=== PATIENT | male | born 1950 | race Caucasian/White ===

== ENCOUNTER 2024-10-13 19:14 | Emergency (ER) | payer MEDICARE, SELFPAY ==
[2024-10-13] VITALS (7 sets, daily range): BP systolic 111–193; BP diastolic 57–176; PULSE 60–62; RESP 16–25; TEMP 37.2; O2SAT 96–98
--- NOTE | ~2024-10-13 | XR_ITS ---
XR chest 1V portable Ordering provider: Precious Gunter MD History: 74 years Male with . sepsis . Comparison: None. FINDINGS: MEDIASTINUM: The cardiac silhouette is not enlarged. Left bipolar pacemaker. A right Port-A-Cath with the tip overlying superior vena cava. LUNGS: No infiltrates, effusions or pneumothorax. OTHER: No free air under the diaphragm. IMPRESSION: No acute cardiopulmonary pathology. Reviewed, dictated and finalized at location A.
--- NOTE | 2024-10-13 19:31 | PC.NURSE ---
Pt teofilo;y states at this time he took 500 mg pill of tylenol around 1820.
--- OUTSIDE RECORDS SUMMARY | 2024-10-13 19:46 | XMS_ITS | Encounter Summary ---
Author Organization [facility] Healthcare Address [address] [place] [address] Care Team Providers Care Greenhouse Or Nursery Transplanter Name Role Phone Gilberto Martinez MD Primary Care Provider Rossi BLACK MD, Zane Morataya Unavailable [phone] Raduel Childers MD Unavailable Chris Hart MD Unavailable Ely Tejada Unavailable Charlee Mcmillan Unavailable Unavailable Mariama Parisi RN Unavailable [phone] Agustina Li MD PhD Unavailable Encounter Details Date Type Department Care Team (Latest Contact Info) Description 10/07/2024 Results Follow-Up [facility] Transplant Liver [address] [facility] [phone] [place] [address] Alethea Burch, ALMITA Cancer antigen 19-9, Comprehensive metabolic panel, CBC with auto differential, Additional followed-up results: 3 Social History Tobacco Use Types Packs/Day Years Used Date Smoking Tobacco: Former Cigarettes 0.3 23 1 968 - 1990 Pipe Cigars Smokeless Tobacco: Never OASIS D0700: Social Isolation Answer Da te Recorded Frequency of experiencing loneliness or isolatio n Never 09/08/2024 OASIS A1250: Transportation Answer Date Recorded Lack of Transportation (Medical) No 09/08/2024 Lack of Transportation (Non-Medical) No 09/08/2024 Patient Unable or Declines to Respond No 09/08/2024 OASIS B1300: Health Literacy Answer Eldon e Recorded Frequency of needing help to read materials from doctor or pharmacy Sometimes 09/08/2024 [facility] Utilities Answer Date Recorded In the past 12 months has th e [employer], oil, or water [employer] threatened to shut off services in your home? No 08/24/2024 Humiliation, Afraid, Rape, and Kick questionnair e Answer Date Recorded Within the last year, have y ou been afraid of your partner or ex-partner? No 11/13/2023 Within the last year, have y ou been humiliated or emotionally abused in other ways by your partner or ex-partner? No Within the last year, have y ou been kicked, hit, slapped, or otherwise physically hurt by your partner or ex-partner? No 11/13/2023 Within the last year, have y ou been raped or forced to have any kind of sexual activity by your partner or ex-partner? No 11/13/2023 Social Connection and Isolat ion Panel [NHANES] Answer Date Recorded In a typical week, how many times do you talk on the phone with family, friends, or neighbors? More than three times a week 08/24/2024 How often do you get togethe r with friends or relatives? More than three times a week 08/24/2024 How often do you attend chur ch or yazdanism services? More than 4 times per year 08/24/2024 Do you belong to any clubs o r organizations such as taoism groups, unions, fraternal or athletic groups, or school groups? Yes 08/24/2024 How often do you attend meet ings of the clubs or organizations you belong to? More than 4 times per year 08/24/2024 Are you , , di vorced, , never , or living with a partner? 08/24/2024 AUDIT-C Answer Date Recorded Q1: How often do you have a drink containing alcohol? Never 08/31/2024 Q2: How many drinks containi ng alcohol do you have on a typical day when you are drinking? Patient does not drink Q3: How often do you have si x or more drinks on one occasion? Never 08/31/2024 Overall Financial Resource Strain (CARDIA) Answe r Date Recorded How hard is it for you to pa y for the very basics like food, housing, medical care, and heating? Not hard at all 08/24/2024 PHQ-2 Answer Date Recorded PHQ-2 Total Score 0 03/16/2024 [facility] - Occupational Stress Questionnaire Answer Date Recorded Do you feel stress - tense, restless, nervous, or anxious, or unable to sleep at night because your mind is troubled all the time - these days? Only a little 11/13/2023 Exercise Vital Sign Answer Date Recorde d On average, how many days pe r week do you engage in moderate to strenuous exercise (like a brisk walk)? 5 days 11/13/2023 On average, how many minutes do you engage in exercise at this level? 30 min 11/13/2023 Hunger Vital Sign Answer Date Recorded Within the past 12 months, y ou worried that your food would run out before you got the money to buy more. Never true 08/25/19 25 Within the past 12 months, t he food you bought just didn't last and you didn't have money to get more. Never true 08/24/2024 PRAPARE - Transportation Answer Date Re corded In the past 12 months, has l ack of transportation kept you from medical appointments or from getting medications? No 08/05 In the past 12 months, has l ack of transportation kept you from meetings, work, or from getting things needed for daily living? No 08/24/2024 Housing Stability Vital Sign Answer Eldon e Recorded In the last 12 months, was t here a time when you were not able to pay the mortgage or rent on time? No 08/24/2024 In the past 12 months, how m any times have you moved where you were living? 0 08/24/2024 At any time in the past 12 m [facility], were you homeless or living in a longterm (including now)? No 08/24/2024 Personal Safety Answer Date Recorded Have you ever been in or are you currently in a harmful physical or emotional relationship or is someone making you feel afraid or unsafe? Denies 08/21/2024 Sex and Gender Information Value Date Recorded Sex Assigned at Not on file Legal Sex Male 6:[address] Gender Identity Male 12/06/2019 4:39 PM CDT Sexual Orientation Straight 12/06/2019 4: 39 PM CDT documented as of this encounter Plan of Treatment Upcoming Encounters Date Type Department Care Team (Latest Contact Info) Description 10/15/2024 11:00 AM CDT Hospital Encounter [facility] [address] [place] [phone] Chris Holcobm MD [address] [place] [address] History of biliary stent insertion 10/15/2024 11:00 AM CDT - 10/15/2024 11:30 AM CDT Surgery [address] [phone] Chris Holcomb MD [address] [place] [address] ERCP Stent Exch INR mail lab at 0900 [[id number]] Scheduled Procedures Name Priority Associated Diagnoses Date/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) documented as of this encounter Visit Diagnoses Not on filedocumented in this encounter Care Teams Greenhouse Or Nursery Transplanter Relationship Specialty Start Date End Date Gilberto Martinez MD [address] [facility] [address] [place] [address] PCP - General 07/11/16 Zane Richey III, MD [address] [facility] [address] [place] [address] Consulting Physician Cardiology 05/18/21 Raudel Childers MD [address] [facility] [id number] [place] [address] Consulting Physician Colon and Rectal Surgery 12/26/21 Chris Hart MD [address] [facility] [address] [place] [address] Weatherseal Technician Cardiology 03/17/24 Ely Tejada PA [address] [facility] [id number] [place] [address] Referring Physician Physician [place] Cutting Machine Operator 04/09/24 Charlee Mcmillan RMA Surgical Prehabilitation and Readiness (SPAR) Coordinator 06/11/24 Mariama Pariis, RN [address] [facility] [address] [place] [address] Steel Finisher 08/07/24 Agustina Li MD PhD [address] [place] [address] Medical Oncologist/Heating Mechanic Medical Oncology 09/09/24 documented as of this encounter
--- OUTSIDE RECORDS SUMMARY | 2024-10-13 19:46 | XMS_ITS | Encounter Summary ---
Author Organization [facility] Address [address] [place] [address] Phone Care Team Providers Care Hr Operations Advisor Name Role Phone Gilberto Martinez MD Primary Care Provider [phone] Rossi BLACK MD, Zane Morataya Unavailable [phone] Raudel Childers MD Unavailable [phone] Gorge Contreras MD PhD Unavailable [phone] hCris Hart MD Unavailable [phone] Mei Cohen RN Unavailable [phone] Ely Tejada Unavailable Charlee Mcmillan Unavailable Unavailable Mariama Parisi RN Unavailable Agustina Li MD PhD Unavailable Reason for Visit * Reason Onset Date Comments MARK 04/09/2024 Encounter Details Date Type Department Care Team (Late st Contact Info) Description 04/09/2024 Telephone [facility] Cardiology [address] [facility] Floor 1, [address] [place] [address] Chris Hart MD [address] [facility] [address] [place] [address] MARK Social History Tobacco Use Types Packs/Day Years Used Date Smoking Tobacco: Former Cigarettes 0.3 2 Q uit: 1992 Pipe Cigars Smokeless Tobacco: Never [facility] Utilities Answer Date Recorded In the past 12 months has th e electric, gas, oil, or water company threatened to shut off services in your home? No 03/16/2024 Humiliation, Afraid, Rape, and Kick questionnair e [...] neighbors? More than three times a week 03/16/2024 How often do you get togethe r with friends or relatives? More than three times a week 03/16/2024 How often do you attend chur ch or tenriism services? More than 4 times per year 03/16/2024 Do you belong to any clubs o r organizations such as yazdanism groups, unions, fraternal or athletic groups, or school groups? Yes 03/16/2024 How often do you attend meet ings of the clubs or organizations you belong to? More than 4 times per year 03/16/2024 Are you , , di vorced, , never , or living with a partner? 03/16/2024 AUDIT-C Answer Date Recorded Q1: How often do you have a drink containing alcohol? Never 03/24/2024 Q2: How many drinks containi ng alcohol do you have on a typical day when you are drinking? Patient does not drink Q3: How often do you have si x or more drinks on one occasion? Never 03/24/2024 Overall Financial Resource Strain (CARDIA) Answe r Date Recorded How hard is it for you to pa y for the very basics like food, housing, medical care, and heating? Not hard at all 03/16/2024 PHQ-2 Answer Date Recorded PHQ-2 Total Score 0 03/16/2024 [facility] - Occupational Stress Questionnaire Answer Date Recorded [...] the money to buy more. Never true 03/16/20 24 Within the past 12 months, t he food you bought just didn't last and you didn't have money to get more. Never true 03/16/2024 PRAPARE - Transportation Answer Date Re corded In the past 12 months, has l ack of transportation kept you from medical appointments or from getting medications? No 03/06 In the past 12 months, has l ack of transportation kept you from meetings, work, or from getting things needed for daily living? No 03/16/2024 Housing Stability Vital Sign Answer Eldon e Recorded In the last 12 months, was t here a time when you were not able to pay the mortgage or rent on time? No 03/16/2024 In the past 12 months, how m any times have you moved where you were living? 0 03/16/2024 At any time in the past 12 m [facility], were you homeless or living in a custodial (including now)? No 03/16/2024 Personal Safety Answer Date Recorded Have you ever been in or are you currently in a harmful physical or emotional relationship or is someone making you feel afraid or unsafe? Denies 03/24/2024 Sex and Gender Information Value Date Recorded Sex Assigned at Not on file Legal Sex Male 6:21 AM QUALITY ASSURANCE LEAD Gender Identity Male 12/06/2019 4:39 PM CDT Sexual Orientation Straight 12/06/2019 4: 39 PM CDT documented as of this encounter Miscellaneous Notes * Telephone Encounter - Seema Mora RN - 04/09/2024 11:52 AM CST ----- Message from Aisha Delcid NP sent at 04/08/2024 5:24 PM QUALITY ASSURANCE LEAD ----- Could one of you please assist with scheduling this MARK for him? This would be to evaluate the mitral valve. He is having laparoscopic exploratory surgery next so would probably be looking for about a month from now, thank you ----- Message ----- From: Chris Hart MD Sent: 04/07/2024 11:23 AM QUALITY ASSURANCE LEAD To: Aisha Delcid NP It's okay to set up. We had been holding off given his cancer burden and need for treatment and unclear candidacy for valve repair. While the patient seemed to be on board with that at my last appointment with him at [place], I'm not sure he is in that same mindset now based on his messages since then. If he wants a work-up, definitely fine to proceed with the work-up and we can always hold off beforesurgery depending on where he is at from a cancer standpoint. ----- Message ----- From: Aisha Delcid NP Sent: 04/05/2024 5:22 PM QUALITY ASSURANCE LEAD To: Chris Hart MD Your last note said MARK would be next step for SOB eval. 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 Ok to set this up? I told pt I would discuss with you, thanks ITY ASSURANCE LEAD documented in this encounter Plan of Treatment Upcoming Encounters Date Type Department Care Team (Latest Contact Info) Description 10/15/2024 11:00 AM CDT Hospital Encounter [facility] [address] [place] [phone] Chris Holcomb MD [address] [place] [address] History of biliary stent insertion 10/15/2024 11:00 AM CDT - 10/15/2024 11:30 AM CDT Surgery [facility] [address] [place] [phone] Chris Holcomb MD [address] [place] [address] ERCP Stent Exch INR mail lab at 0900 [[id number]] Scheduled Procedures Name Priority Associated Diagnoses Date/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 difficile suspected 08/19/2024 08/19/202408/20 3:07 AM CDT Norovirus suspected 08/19/2024 08/19/2024 08/21/19 25 3:07 AM CDT C. difficile suspected 08/21/2024 08/21/202408/22 6:36 AM CDT Norovirus suspected 08/21/2024 08/21/2024 08/23/19 25 3:58 AM CDT COVID: Suspected 08/21/2024 08/21/2024 08/21/2024 5:59 PM CDT Coronavirus, droplet Comment:08/24/2024 - Eligible for review 08/27. Must be afebrile off antipyretics x24 hours and symptoms resolved/significantly improved. Pat Alvarado RN 08/21/2024 08/21/2024 08/31/2024 10:08 AM CDT Rotavirus suspected 08/27/2024 08/27/2024 08/28/19 8:39 AM CDT Rotavirus suspected 08/27/2024 08/27/2024 08/28/19 25 9:21 PM CDT documented as of this encounter Care Teams Hr Operations Advisor Relationship Specialty Start Date End Date Gilberto Martinez MD [address] [facility] [address] [place] [address] PCP - General 07/11/16 Zane Richey III, MD [address] [place] [address] Consulting Physician Cardiology 05/18/21 Raudel Childers MD [address] [facility] [id number] [place] [address] Consulting Physician Colon and Rectal Surgery 12/26/21 Gorge Contreras MD PhD [address] [place] [address] Medical Oncologist Medical Oncology 11/26/23 09/08/24 Chris Hart MD [address] [facility] [address] [place] [address] Leather Stretcher Cardiology 03/17/24 Mei Cohen, ALMITA [address] [facility] [address] [place] [address] Chemical Dependency Counselor 04/09/24 5 Ely Tejada PA [address] [facility] [id number] [place] [address] Referring Physician Physician Corrections Specialist 04/09/24 Charlee Mcmillan RMA Surgical Prehabilitation and Readiness (SPAR) Coordinator 06/11/24 Mariama Parisi, RN [address] [facility] [address] [place] [address] Chemical Dependency Counselor 08/07/24 Agustina Li MD PhD [address] [place] [address] Medical Oncologist/Hoop Machine Operator Medical Oncology 09/09/24 documented as of this encounter
--- OUTSIDE RECORDS SUMMARY | 2024-10-13 19:46 | XMS_ITS | Encounter Summary ---
Author Organization [facility] Healthcare Address [address] [place] [address] Care Team Providers Care Household Appliance Installer Name Role Phone Gilberto Martinez MD Primary Care Provider Rossi BLACK MD, Zane Morataya Unavailable [phone] Raudel Childers MD Unavailable Gorge Contreras MD PhD Unavailable [phone] Chris Hart MD Unavailable Mei Cohen RN Unavailable [phone] Ely Tejada Unavailable Charlee Mcmillan Unavailable Unavailable Mariama Parisi RN Unavailable Agustina Li MD PhD Unavailable Encounter Details Date Type Department Care Team (Late st Contact Info) Description 05/29/2024 Treatment [facility] Radiation Oncology [address] [facility] Advanced Medicine [facility] [place] [place] [address] Gorge Garza MD PhD [address] [facility] [address] [place], [place] [id number] Hilar cholangiocarcinoma (HCC) (Primary Dx) Social History Tobacco Use Types Packs/Day Years Used Date Smoking Tobacco: Former Cigarettes 0.3 2 Q uit: 1992 Pipe Cigars Smokeless Tobacco: Never [facility] Utilities Answer Date Recorded In the past 12 months has e electric, gas, oil, or water company [...] week 03/16/2024 How often do you attend [facility] or [facility] services? More than 4 times per year 03/16/2024 Do you belong to any clubs o r organizations such as uatsdin groups, unions, fraternal or athletic groups, or school groups? Yes 03/16/2024 How often do you attend meet ings of the clubs or organizations you belong to? More than 4 times per year 03/16/2024 Are you , , di vorced, , never , or living with a partner? 03/16/2024 AUDIT-C Answer Date Recorded Q1: How often do you have a drink containing alcohol? Never 05/12/2024 Q2: How many drinks containi ng alcohol do you have on a typical day when you are drinking? Patient does not drink Q3: How often do you have si x or more drinks on one occasion? Never 05/12/2024 Overall Financial Resource Strain (CARDIA) Answe r Date Recorded How hard is it for you to pa y for the very basics like food, housing, medical care, and heating? Not hard at all 03/16/2024 PHQ-2 Answer Date Recorded PHQ-2 Total Score 0 03/16/2024 [facility] - Occupational Stress Questionnaire Answer Date [...] any time in the past [address] [facility], were you homeless or living in a [place] [facility] [place] facility (including now)? No 03/16/2024 Personal Safety Answer Date Recorded Have you ever been in or are you currently in a harmful physical or emotional relationship or is someone making you feel afraid or unsafe? Denies 05/20/2024 Sex and Gender Information Value Date Recorded Sex Assigned at Not on file Legal Sex Male 6:21 AM MEDICATION CARE MANAGER Gender Identity Male 12/06/2019 4:39 PM CDT Sexual Orientation Straight 12/06/2019 4: 39 PM CDT documented as of this encounter Plan of Treatment Upcoming Encounters Date Type Department Care Team (Latest Contact Info) Description 10/15/2024 11:00 AM CDT Hospital Encounter [facility] [address] [place] [phone] Chris Holcomb MD [address] [facility] [place] [address] History of biliary stent insertion 10/15/2024 11:00 AM CDT - 10/15/2024 11:30 AM CDT Surgery [facility] [address] [place] [phone] Chris Holcomb MD [address] [facility] [place] [address] ERCP Stent Exch INR mail lab at 0900 [[id number]] Scheduled Procedures Name Priority Associated Diagnoses Date/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) documented as of this encounter Visit Diagnoses Diagnosis Hilar cholangiocarcinoma (HCC)- Primary History of biliary stent insertion- Primary History of biliary stent insertion documented in this encounter Additional Health Concerns Infection [...] AM CDT Rotavirus suspected 08/27/2024 08/27/2024 08/28/19 9:21 PM CDT documented as of this encounter Care Teams Household Appliance Installer Relationship Specialty Start Date End Date Gilberto Martinez MD [address] [facility] [address] [place] [address] PCP - General 07/11/16 Zane Richey III, MD [address] [facility] [address] [place] [address] Consulting Physician Cardiology 05/18/21 Raudel Childers MD [address] [facility] [id number] [place] [address] Consulting Physician Colon and Rectal Surgery 12/26/21 Gorge Contreras MD PhD [address] [place] [address] Medical Oncologist Medical Oncology 11/26/23 09/08/24 Chris Hart MD [address] [facility] [address] [place] [address] Critical Care Unit Manager Cardiology 03/17/24 Mei Cohen, ALMITA [address] [facility] [address] [place] [address] Flagman 04/09/24 Ely Garzon PA [address] [facility] [id number] [place] [address] Referring Physician Physician Airset Molder 04/09/24 Charlee Mcmillan RMA Surgical Prehabilitation and Readiness (SPAR) Coordinator 06/11/24 Mariama Parisi, RN [address] [facility] [address] [place] [address] [employer] 08/07/24 Agustina Li MD PhD [address] [place] [address] Medical Oncologist/Ginning Operator Medical Oncology 09/09/24 documented as of this encounter
--- OUTSIDE RECORDS SUMMARY | 2024-10-13 19:46 | XMS_ITS | Encounter Summary ---
Author Organization [facility] Healthcare Address [address] [place] [address] Care Team Providers Care Lay Out Helper Name Role Phone Gilberto Martinez MD Primary Care Provider [phone] Rossi BLACK MD, Zane Morataya Unavailable [phone] Raudel Childers MD Unavailable [phone] Aarti Robles RN Unavailable [phone] Gorge Contreras MD PhD Unavailable [phone] Chris Hart MD Unavailable Mei Cohen RN Unavailable [phone] Ely Tejada Unavailable Charlee Mcmillan Unavailable Unavailable Mariama Parisi RN Unavailable Agustina Li MD PhD Unavailable [phone] Encounter Details Date Type Department Care Team (Late st Contact Info) Description 11/15/2023 Documentation [facility] Case Management [address] [place] [id number] Skylar Peng, RN Social History Tobacco Use Types Packs/Day Years Used Date Smoking Tobacco: Former Cigarettes 0.3 2 Q uit: 1992 Pipe Cigars Smokeless Tobacco: Never [facility] Utilities Answer Date Recorded In the past 12 months has [employer], gas, oil, or water [employer] threatened to shut off services in your home? No 11/18/2023 Humiliation, Afraid, Rape, and Kick questionnair e [...] neighbors? More than three times a week 11/18/2023 How often do you get togethe r with friends or relatives? More than three times a week 11/18/2023 How often do you attend chur or scientology services? More than 4 times per year 11/18/2023 Do you belong to any clubs o r organizations such as yazdanism groups, unions, fraternal or athletic groups, or school groups? No 11/18/2023 How often do you attend meet ings of the clubs or organizations you belong to? Never 11/18/2023 Are you , , di vorced, , never , or living with a partner? 11/18/2023 AUDIT-C Answer Date Recorded Q1: How often do you have a drink containing alcohol? Never 11/13/2023 Q2: How many drinks containi ng alcohol do you have on a typical day when you are drinking? Patient does not drink Q3: How often do you have si x or more drinks on one occasion? Never 11/13/2023 Overall Financial Resource Strain (CARDIA) Answe r Date Recorded How hard is it for you to pa y for the very basics like food, housing, medical care, and heating? Not hard at all 11/18/2023 [facility] - Occupational [...] the money to buy more. Never true 11/18/19 24 Within the past 12 months, t he food you bought just didn't last and you didn't have money to get more. Never true 11/18/2023 PRAPARE - Transportation Answer Date Re corded In the past 12 months, has l ack of transportation kept you from medical appointments or from getting medications? No 11/03 In the past 12 months, has l ack of transportation kept you from meetings, work, or from getting things needed for daily living? No 11/18/2023 Housing Stability Vital Sign Answer Eldon e Recorded In the last 12 months, was t here a time when you were not able to pay the mortgage or rent on time? No 11/18/2023 In the past 12 months, how m any times have you moved where you were living? 0 11/18/2023 At any time in the past 12 m [facility], were you homeless or living in a jail (including now)? No 11/18/2023 Personal Safety Answer Date Recorded Have you ever been in or are you currently in a harmful physical or emotional relationship or is someone making you feel afraid or unsafe? 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 ADD: 11/16/2023 Plan/referrals made/in place: No referrals placed at this time Support following discharge: Crystal [phone] Transportation: Spouse to provide transportation F/U Appointments: None at this time Plan for weekend discharge: Yes For weekend assistance, please check the treatment team in Epic for the assigned dependency case manager or contact the weekend Case Management phone. documented in this encounter Plan of Treatment Upcoming Encounters Date Type Department Care Team (Latest Contact Info) Description 10/15/2024 11:00 AM CDT Hospital Encounter [facility] [address] [place] [phone] Chris Holcomb MD [address] [id number] History of biliary stent insertion 10/15/2024 11:00 AM CDT - 10/15/2024 11:30 AM CDT Surgery [facility] [address] [place] [phone] Chris Holcomb MD [address] [address] ERCP Stent Exch INR mail lab at 0900 [[id number]] Scheduled Procedures Name Priority Associated Diagnoses Date/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) documented as of this encounter Visit Diagnoses Not on filedocumented in this encounter Additional Health Concerns Infection Onset Date Last Indicated Resolved Time COVID: Suspected 11/30/2023 11/30/2023 11/30/2023 3:24 PM CDT COVID: Suspected 12/16/2023 12/16/2023 12/16/2023 9:52 PM CDT COVID: Suspected Comment:12/16 negative 12/17/2023 12/17/2023 12/17/2023 10:41 A M CDT COVID: Suspected 12/20/2023 12/20/2023 12/21/2023 3:06 AM CDT COVID: Suspected 12/22/2023 12/22/2023 12/22/2023 2:13 PM CDT COVID: Suspected 01/18/2024 01/18/2024 01/18/2024 1:19 PM CDT COVID: Suspected 03/15/2024 03/15/2024 03/15/2024 5:59 PM WARP STARTER C. difficile suspected 08/19/2024 08/19/202408/20 3:07 AM CDT Norovirus suspected 08/19/2024 08/19/2024 08/21/19 25 3:07 AM CDT C. difficile suspected 08/21/2024 08/21/202408/22 6:36 AM CDT Norovirus suspected 08/21/2024 08/21/2024 08/23/19 3:58 AM CDT COVID: Suspected 08/21/2024 08/21/2024 08/21/2024 5:59 PM CDT Coronavirus, droplet Comment:08/24/2024 - Eligible for review 08/27. Must be afebrile off antipyretics x24 hours and symptoms resolved/significantly improved. Pat Alvarado RN 08/21/2024 08/21/2024 08/31/2024 10:08 AM CDT Rotavirus suspected 08/27/2024 08/27/2024 08/28/19 8:39 AM CDT Rotavirus suspected 08/27/2024 08/27/2024 08/28/19 25 9:21 PM CDT documented as of this encounter Care Teams Lay Out Helper Relationship Specialty Start Date End Date Gilberto Martinez MD [address] [address] PCP - General 07/11/16 Zane Richey III, MD [address] [place] [address] Consulting Physician Cardiology 05/18/21 Raudel Childers MD [address] [facility] [phone] [place] [address] Consulting Physician Colon and Rectal Surgery 12/26/21 Aarti Robles, ALMITA [address] [facility] [address] [place] [address] SHOP Outpatient Business Support Administrator 11/18/23 12/16/23 Gorge Contreras MD PhD [address] [place] [address] Medical Oncologist Medical Oncology 11/26/23 09/08/24 Chris Hart MD [address] [facility] [address] [place] [address] Merchandise Associate Cardiology 03/17/24 Mei Cohen, ALMITA [address] [facility] [address] [place] [address] Office Lead 04/09/24 Ely Garzon PA [address] [facility] [id number] [place] [address] Referring Physician Physician Brass Burnisher 04/09/24 Charlee Mcmillan RMA Surgical Prehabilitation and Readiness (SPAR) Coordinator 06/11/24 Mariama Parisi, ALMITA [address] [facility] [address] [place] [address] Office Lead 08/07/24 Agustina Li MD PhD [address] [place] [address] Medical Oncologist/Pmo Business Analyst Medical Oncology 09/09/24 documented as of this encounter
--- OUTSIDE RECORDS SUMMARY | 2024-10-13 19:46 | XMS_ITS | Encounter Summary ---
Author Organization [facility] Healthcare Address [address] [place] [address] Care Team Providers Care Material Cutter Name Role Phone Gilberto Martinez MD Primary Care Provider Rossi BLACK MD, Zane Morataya Unavailable [phone] Raudel Childers MD Unavailable Chris Hart MD Unavailable Ely Tejada Unavailable [phone] Charlee McmillanA Unavailable Unavailable Mariama Parisi RN Unavailable Agustina Li MD PhD Unavailable [phone] Reason for Visit * Auth/Cert (Routine) Specialty Diagnoses / Procedures Referred By Contac t Referred To Contact Referral ID Status Reason Start Date Expiration Date Visits Re quested Visits Authorized [id number] 1 60 Encounter Details Date Type Department Care Team (Late st Contact Info) Description 10/13/2024 2:00 PM CDT Home Care Visit [facility] [address] [address] [address] [place] [address] Bryn Molina, ROBEL PT HOME VISIT Social History Tobacco Use Types Packs/Day Years [...] materials from doctor or pharmacy Sometimes 09/08/2024 [facility] Utilities Answer Date Recorded In the past 12 months has e [employer], [employer], oil, or water [employer] threatened to shut off services in your [...] 08/24/2024 How often do you attend chur or restoration services? More than 4 times per year 08/24/2024 Do you belong to any clubs o r organizations such as tenriism groups, unions, fraternal or athletic groups, or [...] Date Recorded PHQ-2 Total Score 0 03/16/2024 [facility] - Occupational Stress Questionnaire Answer Date [...] any time in the past 12 m [facility], were you homeless or living in a assisted (including now)? No 08/24/2024 Personal Safety Answer Date Recorded Have you ever been in or are you currently in a harmful physical or emotional relationship or is someone making you feel afraid or unsafe? 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 Gender Identity Male 12/06/2019 4:39 PM CDT Sexual Orientation Straight 12/06/2019 4: 39 PM CDT documented as of this encounter Last Filed Vital Signs Vital Sign Reading Time Taken Comments Blood Pressure 122/59 10/13/2024 2:07 PM CDT Pulse 60 10/13/2024 2:07 PM CDT Temperature 36.5 C (97.7 F) 10/13/2024 2:07 PM CDT Respiratory Rate 18 10/13/2024 2:07 PM CDT Oxygen Saturation 96% 10/13/2024 2:07 PM CDT Inhaled Oxygen Concentration - - Weight - - Height - - Body Mass Index - - documented in this encounter Miscellaneous Notes * Home Health Visit Narrative - Bryn Molina PT - 10/13/2024 2:02 PM CDT Patient present for homecare PT treatment. Focus of care on LE strengthening and balance training which the patient continues to tolerate well. States that he has ERCP procedure on , will likely want to hold off on PT until the following week. Therefore, may have PT missed visit on , will notify MD if visit is missed. Patient reports that he has oncology appt. Sat, not available Sat. * Home Health Plan for Next Visit - Bryn Molina PT - 10/13/2024 2:02 PM CDT Reason for today's visit: PT treatment Discussed plan of care interventions with the patient, who remains agreeable. Discharge planning: discharge when goals are met Plan for next visit: continue LE strengthening, gait, balance focus. documented in this encounter Plan of Treatment Upcoming Encounters Date Type Department Care Team (Latest Contact Info) Description 10/15/2024 11:00 AM CDT Hospital Encounter [facility] [address] [place] [phone] Chris Holcomb MD [address] [facility] [place] [address] History of biliary stent insertion 10/15/2024 11:00 AM CDT - 10/15/2024 11:30 AM CDT Surgery [facility] [address] [place] [phone] Chris Holcomb MD [address] [facility] [place] [address] ERCP Stent Exch INR mail lab at 0900 [[id number]] Scheduled Procedures Name Priority Associated Diagnoses Date/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) documented as of this encounter Visit Diagnoses Not on filedocumented in this encounter Home Health Visit - Care Plan Visit Details Visit Type -PT Home Visit Discipline -Physical Therapy Problems Problem Description Start Date Status Goals Interve ntions Pressure Prevention Disciplines: Skilled Disciplines Pressure Prevention 09/08/2024 Active 1 goal linked to scheduled/documen sunil intervention 1 goal intervention scheduled/documen sunil in this visit Oxygen Safety Education Disciplines: Skilled Disciplines Oxygen Safety Education 09/08/2024 Active 1 goal linked to scheduled/documen sunil intervention 1 goal intervention scheduled/documen sunil in this visit Monitor patient's vital signs every home health visit Disciplines: Skilled Disciplines, SN, PT, OT, RAIL TRACK MAINTAINER, HEAD OF HUMAN RESOURCES Monitor patient's vital signs every home health visit. 09/08/2024 Active 1 goal linked to scheduled/documen sunil intervention 1 goal intervention scheduled/documen sunil in this visit Fall Precautions/Safe ty Concerns Disciplines: Skilled Disciplines Fall precautions and general safety 09/08/2024 Active 1 goal linked to scheduled/documen sunil intervention 1 goal intervention scheduled/documen sunil in this visit Pain Disciplines: Core Disciplines Alteration in comfort 09/08/2024 Active 1 goal linked to scheduled/documen sunil intervention 1 goal intervention scheduled/documen sunil in this visit PT Medication Management Disciplines: Physical Therapy PT Medication Management 09/08/2024 Active - 1 problem intervention scheduled/documen sunil in this visit PT Impaired Functional Mobility Disciplines: Physical Therapy Impaired functional mobility 09/08/2024 Active - 5 problem interventions scheduled/nadir barber in this visit Goals Goal Associated Problem Outcome Goal Met? Visit Notes Prevent development of pressure injuries Description: manager terminal goal: The patient will maintain intact skin and avoid the development of pressure injuries within 8 weeks Short term goal: The patient/caregiver will understand and adhere to pressure prevention interventions within 4 weeks Pressure Prevention No Demonstrate safe oxygen usage Description: Demonstrate safe oxygen usage in 4 weeks. Oxygen Safety Education No Measure vital signs during every home health visit during episode of care Description: Home buck swamper to measure vital signs during every home health visit during episode of care. Monitor patient's vital signs every home health visit No Demonstrate fall and safety precautions Description: Patient/caregiver maintains safe home environment as evidenced by remaining free from falls, injury due to falls, demonstrating safety precautions, and identifying strategies to reduce falls by 11/06/24 Fall Precautions/Safety Concerns No Report that pain has been reduced or controlled Description: Patient/caregiver/family will verbalize satisfaction with the patients level of pain and symptom control. Pain No Interventions Intervention Associated Problem/Goal Status Variance Visit Notes Instruct on Pressure Prevention Description: Instruct patient/caregiver on inspecting the skin regularly for signs of impaired skin integrity, repositioning the patient on an individualized schedule according to the patient's tissue tolerance, skin condition, mobility, medical condition, and treatm ent goals. Avoid vigorous massage and emphasize the importance of increasing activity and mobility. Problem:Pressure Prevention Goal:Prevent development of pressure injuries Completed Instructed patient/caregiver on inspecting the skin regularly for signs of impaired skin integrity previously, repositioning frequently. Avoid vigorous massage and emphasize the importance of increasing activity and mobility. Oxygen Safety Education Description: Instruct patient/caregiver on oxygen use and safety precautions such as no smoking, posting oxygen sign, staying at least 10 feet from open flames, avoid using oil-based products, and proper storage of portable tanks. Instruc t patient to call [employer] with oxygen issues or malfunctions. Problem:Oxygen Safety Education Goal:Demonstrate safe oxygen usage Completed Instructed patient and family previously in oxygen safety such as never smoke while using oxygen, stay at least 10 feet away from open flames or someone smoking, post no smoking sign, do not use an oil-based product like petroleum jelly, petroleum-based creams, or lotions on your lips or hands. Store oxygen tanks in a well-ventilated area and keep all flammable materials away from oxygen equipment. Instructed patient on how to reach [employer] for oxygen issues or malfunctions . Patient and family are able to verbalize safety precautions correctly. Monitor Vital Signs Description: Monitor blood pressure, pulse, oxygen saturation, respirations Problem:Monitor patient's vital signs every home health visit Goal:Measure vital signs during every home health visit during episode of care Completed High Fall Risk Precautions Description: Instruct patient/caregiver to use proper lighting in all areas, stand/sit up slowly, use appropriate footwear when walking, use proper assistive devices, and to keep pathways clear of cords and clutter to prevent falls. Remove/secure throw rugs. Educat e patient on medications and disease processes that increase fall risk, using corrective lenses as prescribed, placing hard to reach items within reach, what to do in the event of a fall and to report any falls to the home health agency. Problem:Fall Precautions/Safety Concerns Goal:Demonstrate fall and safety precautions Completed Instructed patient/caregiver to use proper lighting in all areas, stand/sit up slowly, use appropriate footwear when walking, use proper assistive devices, and to keep pathways clear of cords and clutter to prevent falls. Remove/secure throw rugs. Educ ated patient on medications and disease processes that increase fall risk, using corrective lenses as prescribed, placing hard to reach items within reach, what to do in the event of a fall and to report any falls to the home health agency. patient jordi balizes good understanding of instructions and provides safe verbalization/return demonstration of instructions. Instruct on pain management techniques Description: Instruct in pharmacologic and nonpharmacologic pain management techniques. Problem:Pain Goal:Report that pain has been reduced or controlled Completed Instructed patient to rest as needed, take pain medication as prescribed. Educated to contact MD office or nurse triage line in case of new or worsening pain. patient verbalizes good understanding of instructions and provides safe verbalization/return de monstration of instructions. Pain medication Instruction Description: Instruct patient/caregiver in high risk pain medications including common side effects, prescribed dosing schedule and contacting physician with questions or concerns. Problem:PT Medication Management Completed Instructed patient to rest as needed, take pain medication as prescribed. Educated to contact MD office or nurse triage line in case of new or worsening pain. patient verbalizes good understanding of instructions and provides safe verbalization/return de monstration of instructions. Home Exercise Program (HEP) Description: Instruct patient/caregiver and perform HEP. Problem:PT Impaired Functional Mobility Completed instructed to continue HEP X 10-20 reps BID as tolerated. issued handouts for reference. patient verbalizes good understanding of instructions and provides safe verbalization/return demonstration of instructions Gait/Stair Training Description: Instruct patient/caregiver and perform gait/stair training. Problem:PT Impaired Functional Mobility Completed instructed to rest as needed, gradually increase walking program as tolerated and use assistive device as needed for safety. patient verbalizes good understanding of instructions and provides safe verbalization/return demonstration of instructions. Bed Mobility/Transfer Training Description: Instruct patient/caregiver and perform bed mobility/transfer training. Problem:PT Impaired Functional Mobility Completed sit to stand 2 x 5 with UE use, education to forward trunk lean prior to standing. patient verbalizes good understanding of instructions and provides safe verbalization/return demonstration of instructions. Balance Training/Activities Description: Instruct patient/caregiver and perform balance training activities. Problem:PT Impaired Functional Mobility Completed lateral stepping x 4 lengths of living room, backward stepping x 4 lengths of living room area. Pt. tolerates well. Gait belt donned, CGA and intermittent min A for steadying. Therapeutic Exercise Description: Perform therapeutic exercise, progressing as tolerated. Problem:PT Impaired Functional Mobility Completed Standing calf raises, marches, hip abduction, hip extension, heel kicks x 10 bilateral lower extremities. documented in this encounter Care Teams Material Cutter Relationship Specialty Start Date End Date Gilberto Martinez MD [address] [place] [address] PCP - General 07/11/16 Zane Richey III, MD [address] [facility] [address] [place] [address] Consulting Physician Cardiology 05/18/21 Raudel Childers MD [address] [phone] [place] [address] Consulting Physician Colon and Rectal Surgery 12/26/21 Chris Hart MD [address] [facility] [address] [place] [address] Helicopter Pilot Cardiology 03/17/24 Ely Tejada PA [address] [facility] [id number] [place] [address] Referring Physician Physician Laminating Machine Operator Helper 04/09/24 Charlee Mcmillan RMA Surgical Prehabilitation and Readiness (SPAR) Coordinator 06/11/24 Mariama Parisi, RN [address] [facility] [address] [place] [address] Pullman Car Clerk 08/07/24 Agustina Li MD PhD [address] [place] [address] Medical Oncologist/Clinical Documentation Clerk Medical Oncology 09/09/24 documented as of this encounter
--- OUTSIDE RECORDS SUMMARY | 2024-10-13 19:46 | XMS_ITS | Encounter Summary ---
Author Organization [facility] Healthcare Address [address] [place] [address] Care Team Providers Care Bariatric Program Coordinator Name Role Phone Gilberto Martinez MD Primary Care Provider [phone] Rossi BLACK MD, Zane Morataya Unavailable [phone] Raudel Childers MD Unavailable [phone] Gorge Contreras MD PhD Unavailable [phone] Chris Hart MD Unavailable Mei Cohen RN Unavailable [phone] Ely Tejada Unavailable Charlee Mcmillan Unavailable Unavailable Mariama Parisi RN Unavailable [phone] Agustina Li MD PhD Unavailable [phone] Encounter Details Date Type Department Care Team (Late st Contact Info) Description 05/29/2024 Therapy [facility] Radiation Oncology [address] [facility] [place] [address] Jamia Juarez, ALMITA Hilar cholangiocarcinoma (HCC) (Primary Dx) Social History Tobacco Use Types Packs/Day Years Used Date Smoking Tobacco: Former Cigarettes 0.3 2 Q uit: 1992 Pipe Cigars Smokeless Tobacco: Never [facility] Utilities Answer Date Recorded In the past 12 months has [employer], gas, oil, or water company threatened [...] week 03/16/2024 How often do you attend [facility] or jainism services? More than 4 times per year 03/16/2024 Do you belong to any clubs o r organizations such as orthodox groups, unions, fraternal or athletic groups, or [...] Date Recorded PHQ-2 Total Score 0 03/16/2024 [facility] of Occupat ional Health - Occupational Stress [...] any time in the past 12 m [facility], were you homeless or living in a halfway (including now)? No 03/16/2024 Personal Safety Answer Date Recorded Have you ever been in or are you currently in a harmful physical or emotional relationship or is someone making you feel afraid or unsafe? 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 Seen by Dr. Palm for possible Afib. saw patient and deemed him appropriate to go ahead with the scan. Accessed port per protocol andgave Eovist, 9.7ml. Patient went for MRI SIM, then came to Inpatient area to meet with SEAT FITTER documented in this encounter Plan of Treatment Upcoming Encounters Date Type Department Care Team (Latest Contact Info) Description 10/15/2024 11:00 AM CDT Hospital Encounter [facility] [address] [place] [phone] Chris Holcomb MD [address] [address] History of biliary stent insertion 10/15/2024 11:00 AM CDT - 10/15/2024 11:30 AM CDT Surgery [facility] [address] [place] [phone] Chris Holcomb MD [address] [address] ERCP Stent Exch INR mail lab at [...] AM CDT Norovirus suspected 08/19/2024 08/19/2024 08/21/19 3:07 AM CDT C. difficile suspected 08/21/2024 [...] documented as of this encounter Care Teams Bariatric Program Coordinator Relationship Specialty Start Date End Date Gilberto Martinez MD [address] [facility] [address] [place] [address] PCP - General 07/11/16 Zane Richey III, MD [address] [facility] [address] [place] [address] Consulting Physician Cardiology 05/18/21 Raudel Childers MD [address] [facility] [id number] [place] [address] Consulting Physician Colon and Rectal Surgery 12/26/21 Gorge Contreras MD PhD [address] [place] [address] Medical Oncologist Medical Oncology 11/26/23 09/08/24 Chris Hart MD [address] [facility] [address] [place] [address] Siderographist Cardiology 03/17/24 Mei Cohen, RN [address] [facility] [address] [place] [address] Copper Plate Lithographer 04/09/24 Ely Garzon PA [address] [facility] [id number] [place] [address] Referring Physician Physician Product Marketing Manager 04/09/24 Charlee Mcmillan RMA Surgical Prehabilitation and Readiness (SPAR) Coordinator 06/11/24 Mariama Parisi RN [address] [facility] [address] [place] [address] Copper Plate Lithographer 08/07/24 Agustina Li MD PhD [address] [place] [address] Medical Oncologist/Brilliandeer Looper Medical Oncology 09/09/24 documented as of this encounter
--- OUTSIDE RECORDS SUMMARY | 2024-10-13 19:46 | XMS_ITS | Encounter Summary ---
Author Organization [facility] Address [address] [place] [address] Phone Care Team Providers Care Architectural Wood Model Maker Name Role Phone Gilberto Martinez MD Primary Care Provider [phone] Rossi BLACK MD, Zane Morataya Unavailable [phone] Raudel Childers MD Unavailable Gorge Contreras MD PhD Unavailable [phone] Chris Hart MD Unavailable Ely Tejada Unavailable Charlee Mcmillan Unavailable Unavailable Mariama Parisi RN Unavailable Agustina Li MD PhD Unavailable [phone] Encounter Details Date Type Department Care Team (Late st Contact Info) Description 08/21/2024 Results Follow-Up [facility] Cardiology [address] [facility] [address] [place] [address] Seema Mora, RN Protime-INR, aPTT Social History Tobacco Use Types Packs/Day Years Used Date Smoking Tobacco: Former Cigarettes 0.3 23 1 968 - 1990 Pipe Cigars Smokeless Tobacco: Never [facility] Utilities Answer Date Recorded In the past 12 months has [employer], gas, oil, or water company threatened [...] week 08/24/2024 How often do you attend [facility] or anabaptism services? More than 4 times per year 08/24/2024 Do you belong to any clubs o r organizations such as baptist groups, unions, fraternal or athletic groups, or school groups? Yes 08/24/2024 How often do you attend meet ings of the clubs or organizations you belong to? More than 4 times per year 08/24/2024 Are you , , di vorced, , never , or living with a partner? 08/24/2024 AUDIT-C Answer Date Recorded Q1: How often do you have a drink containing alcohol? Never 07/29/2024 Q2: How many drinks containi ng alcohol do you have on a typical day when you are drinking? Patient does not drink Q3: How often do you have si x or more drinks on one occasion? Never 07/29/2024 Overall Financial Resource Strain (CARDIA) Answe r Date Recorded How hard is it for you to pa y for the very basics like food, housing, medical care, and heating? Not hard at all 08/24/2024 PHQ-2 Answer Date Recorded PHQ-2 Total Score 0 03/16/2024 [facility] of Occupat ional Health - Occupational Stress [...] any time in the past 12 m [facility], were you homeless or living in a fpc (including now)? No 08/24/2024 Personal Safety Answer Date Recorded Have you ever been in or are you currently in a harmful physical or emotional relationship or is someone making you feel afraid or unsafe? 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 Pt is currently in the [facility] (cancer care clinic) being evaluated and [facility] team is triaging high inr. Will follow-up with anticoagulation nxt week. documented in this encounter Plan of Treatment Upcoming Encounters Date Type Department Care Team (Latest Contact Info) Description 10/15/2024 11:00 AM CDT Hospital Encounter [facility] [address] [place] [phone] Chris Holcomb MD [address] [address] History of biliary stent insertion 10/15/2024 11:00 AM CDT - 10/15/2024 11:30 AM CDT Surgery [facility] [address] [place] [phone] Chris Holcomb MD [address] [address] ERCP Stent Exch INR mail lab at 0900 [[id number]] Scheduled Procedures Name Priority Associated Diagnoses Date/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 difficile suspected 08/21/2024 08/21/202408/22 6:36 AM CDT Norovirus suspected 08/21/2024 08/21/2024 08/23/19 3:58 AM CDT COVID: Suspected 08/21/2024 08/21/2024 08/21/2024 5:59 PM CDT Coronavirus, droplet Comment:08/24/2024 - Eligible for review 08/27. Must be afebrile off antipyretics x24 hours and symptoms resolved/significantly improved. Pat Alvarado RN 08/21/2024 08/21/202408/31/2024 10:08 AM CDT Rotavirus suspected 08/27/2024 08/27/2024 08/28/19 8:39 AM CDT Rotavirus suspected 08/27/2024 08/27/2024 08/28/19 9:21 PM CDT documented as of this encounter Care Teams Architectural Wood Model Maker Relationship Specialty Start Date End Date Gilberto Martinez MD [address] [facility] [address] [place] [address] PCP - General 07/11/16 Zane Richey III, MD [address] [facility] [address] [place] [address] Consulting Physician Cardiology 05/18/21 Raudel Childers MD [address] [facility] [id number] [place] [address] Consulting Physician Colon and Rectal Surgery 12/26/21 Gorge Contreras MD PhD [address] [place] [address] Medical Oncologist Medical Oncology 11/26/23 09/08/24 Chris Hart MD [address] [facility] [address] [place] [address] Vp Compliance Cardiology 03/17/24 Ely Tejada PA [address] [facility] [id number] [place] [address] Referring Physician Physician Rn Ed 04/09/24 Charlee Mcmillan RMA Surgical Prehabilitation and Readiness (SPAR) Coordinator 06/11/24 Mariama Parisi, RN [address] [facility] [address] [place] [address] Guidance Consultant 08/07/24 Agustina Li MD PhD [address] [place] [address] Medical Oncologist/Dairy Associate Medical Oncology 09/09/24 documented as of this encounter
--- OUTSIDE RECORDS SUMMARY | 2024-10-13 19:46 | XMS_ITS | Encounter Summary ---
Author Organization [facility] Healthcare Address [address] [place] [address] Care Team Providers Care Intensive Care Unit Registered Nurse Name Role Phone Gilberto Martinez MD Primary Care Provider Rossi BLACK MD, Zane Morataya Unavailable [phone] Raudel Childers MD Unavailable Chris Hart MD Unavailable Ely Tejada Unavailable [phone] Charlee Mcmillan Unavailable Unavailable Mariama Parisi RN Unavailable [phone] Agustina Li MD PhD Unavailable Encounter Details Date Type Department Care Team (Late st Contact Info) Description 10/12/2024 Results Follow-Up [facility] Transplant Liver [phone] [place] [address] Alethea Burch, RN CT Chest Abdomen Pelvis W Contrast Social History Tobacco Use Types Packs/Day Years [...] materials from doctor or pharmacy Sometimes 09/08/2024 [facility] Utilities Answer Date Recorded In the past 12 months has th e [employer], gas, oil, or water [employer] threatened to shut off services in your [...] often do you attend chur ch or restorationist services? More than 4 times per year 08/24/2024 Do you belong to any clubs o r organizations such as scientology groups, unions, fraternal or athletic groups, or [...] Date Recorded PHQ-2 Total Score 0 03/16/2024 [facility] of Occupat ional Health - Occupational Stress [...] time in the past 12 m [facility], were you homeless or living in a care home (including now)? No 08/24/2024 Personal Safety Answer Date Recorded Have you ever been in or are you currently in a harmful physical or emotional relationship or is someone making you feel afraid or unsafe? 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 Gender Identity Male 12/06/2019 4:39 PM CDT Sexual Orientation Straight 12/06/2019 4: 39 PM CDT documented as of this encounter Plan of Treatment Upcoming Encounters Date Type Department Care Team (Latest Contact Info) Description 10/15/2024 11:00 AM CDT Hospital Encounter [address] [phone] Chris Holcomb MD [address] [address] History of biliary stent insertion 10/15/2024 11:00 AM CDT - 10/15/2024 11:30 AM CDT Surgery [address] [phone] Chris Holcomb MD [address] [address] ERCP Stent Exch INR mail lab at 0900 [[id number]] Scheduled Procedures Name Priority Associated Diagnoses Date/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) documented as of this encounter Visit Diagnoses Not on filedocumented in this encounter Care Teams Intensive Care Unit Registered Nurse Relationship Specialty Start Date End Date Gilberto Martinez MD [address] [facility] [address] [place] [address] PCP - General 07/11/16 Zane Richey III, MD [address] [facility] [address] [place] [address] Consulting Physician Cardiology 05/18/21 Raudel Childers MD [address] [facility] [id number] [place] [address] Consulting Physician Colon and Rectal Surgery 12/26/21 Chris Hart MD [address] [facility] [address] [place] [address] Maintenance Man Cardiology 03/17/24 Ely Tejada PA [address] [facility] [id number] [place] [address] Referring Physician Physician Central Office Operator Supervisor 04/09/24 Charlee Mcmillan RMA Surgical Prehabilitation and Readiness (SPAR) Coordinator 06/11/24 Mariama Parisi, RN [address] [facility] [address] [place] [address] Mill Stenciler 08/07/24 Agustina Li MD PhD [address] [place] [address] Medical Oncologist/Lace Cutter Medical Oncology 09/09/24 documented as of this encounter
--- OUTSIDE RECORDS SUMMARY | 2024-10-13 19:46 | XMS_ITS | Encounter Summary ---
Author Organization [facility] Healthcare Address [address] [place] [address] Care Team Providers Care Nurse Practitioner Hospitalist Name Role Phone Gilberto Martinez MD Primary Care Provider Rossi BLACK MD, Zane Morataya Unavailable [phone] Raudel Childers MD Unavailable [phone] Chris Hart MD Unavailable [phone] Ely Tejada Unavailable Charlee McmillanA Unavailable Unavailable Mariama Parisi RN Unavailable Agustina Li MD PhD Unavailable Encounter Details Date Type Department Care Team (Late st Contact Info) Description 09/17/2024 Results Follow[facility]Up [facility] Trans[facility] Liver [address] [facility] [phone] [place], [place] [phone] Mariama Parisi, RN [address] [facility] [address] [place] [address] Cancer antigen 19-9, Comprehensive metabolic panel, CBC [...] materials from doctor or pharmacy Sometimes 09/08/2024 [facility] Utilities Answer Date Recorded In the past 12 months has th e [employer], [employer], oil, or water [employer] threatened to shut off services in your [...] How often do you attend chur or church services? More than 4 times per year 08/24/2024 Do you belong to any clubs o r organizations such as taoist groups, unions, fraternal or athletic groups, or [...] Date Recorded PHQ-2 Total Score 0 03/16/2024 [facility] of Occupat ional [facility] - Occupational Stress Questionnaire Answer Date [...] any time in the past 12 m [facility], were you homeless or living in a retirement (including now)? No 08/24/2024 Personal Safety Answer Date Recorded Have you ever been in or are you currently in a harmful physical or emotional relationship or is someone making you feel afraid or unsafe? 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 Gender Identity Male 12/06/2019 4:39 PM CDT Sexual Orientation Straight 12/06/2019 4: 39 PM CDT documented as of this encounter Plan of Treatment Upcoming Encounters Date Type Department Care Team (Latest Contact Info) Description 10/15/2024 11:00 AM CDT Hospital Encounter [facility] [address] [place] [phone] Chris Holcomb MD [address] [facility] [place], [place] [id number] History of biliary stent insertion 10/15/2024 11:00 AM CDT - 10/15/2024 11:30 AM CDT Surgery [facility] [address] [place] [phone] Chris Holcomb MD [address] [facility] [place] [address] ERCP Stent Exch INR mail lab at 0900 [[id number]] Scheduled Procedures Name Priority Associated Diagnoses Date/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) documented as of this encounter Visit Diagnoses Not on filedocumented in this encounter Care Teams Nurse Practitioner Hospitalist Relationship Specialty Start Date End Date Gilberto Martinez MD [address] [facility] [address] [place] [address] PCP - General 07/11/16 Zane Richey III, MD [address] [facility] [address] [place] [address] Consulting Physician Cardiology 05/18/21 Raudel Childers MD [address] [facility] [id number] [place] [address] Consulting Physician Colon and Rectal Surgery 12/26/21 Chris Hart MD [address] [facility] [address] [place] [address] Psychiatric Aides Teacher Cardiology 03/17/24 Ely Tejada PA [address] [facility] [id number] [place] [address] Referring Physician Physician Police Shift Commander 04/09/24 Charlee Mcmillan RMA Surgical Prehabilitation and Readiness (SPAR) Coordinator 06/11/24 Mariama Praisi, RN [address] [facility] [address] [place] [address] Work Manager 08/07/24 Agustina Li MD PhD [address] [place] [address] Medical Oncologist/Workers' Compensation Mediator Medical Oncology 09/09/24 documented as of this encounter
--- OUTSIDE RECORDS SUMMARY | 2024-10-13 19:46 | XMS_ITS | Clinical Summary ---
Author Organization [facility] Address [address] [place] [phone] Phone Care Team Providers Care Guide Escort Name Role Phone Gilberto Martinez MD Primary Care Provider [phone] Allergies Active Allergy Reactions Criticality Noted Date Comments Cephalexin Dizziness Low 05/04/2021 Iodinated Contrast Media Hives 06/11/2022 Other Hives Medium 10/13/2008 Reaction: HIVES, Tamsulosin Hcl 06/11/2019 Medications cholecalciferol (VITAMIN D-3) 1000 units tablet 0 10/28/2017 Active simvastatin (ZOCOR) 10 MG tablet qd 0 10/28/2017 Active spironolactone (ALDACTONE) 25 MG tablet qd 0 10/28/2017 Active citalopram (CeleXA) 20 MG tablet qd 0 10/28/2017 Active amLODIPine (NORVASC) 10 MG tablet qd 0 10/28/2017 Active multivitamine, geriatric, (CENTRUM SILVER) tablet qd 0 10/28/2017 Active lisinopril (PRINIVIL,ZESTRIL) 40 MG tablet qd 0 10/28/2017 Active Active Problems Problem Noted Date Diagnosed Date Chronic kidney disease, stage 2 (mild) 8 Essential (primary) hypertension 10/28/2017 Immunizations Immunization Administration Dates Next Due DT 02/09/2019 Fluzone High-Dose 03/01/2020 Influenza Split High Dose Preservative Free IM 03/01/2020,02/24/2019,02/05/2018 Influenza Trivalent Adjuvanted 02/06/2016 Influenza, Injectable, Quadrivalent 03/20/2021,1 Influenza, Unspecified 02/26/2022,02/17/2021,07/2015 Pfizer Sars-cov-2 Vaccination 03/20/2021, 021,06/26/2020 Pneumococcal Conjugate 13-Valent 03/07/2020 Sars-cov-2, Unspecified 07/17/2020,06/26/2020 Tetanus Toxoid, Unspecified 09/11/2007 Zoster 02/26/2022, 5,02/17/2013,2011 Family History Medical History Relation Comments Arthritis Father Cerebrovascular accident Father Heart disease Father Dyslipidemia Mother Heart disease Mother Heart failure Mother Hypertensive disorder Mother Arthritis Sibling Hypertensive disorder Sibling Relation Status Comments Father Mother Sibling Social History Tobacco Use Types Packs/Day Years Used Date Smoking Tobacco: Former Smokeless Tobacco: Former Tobacco Cessation:Counseling Given: Not Answered Comments:Smoking History Packs/day: cigars Alcohol Use Standard Drinks/Week Comments No 0 (1 standard drink = 0.6 oz pur e alcohol) Sex and Gender Information Value Date Recorded Sex Assigned at Not on file Legal Sex Male 7:21 AM MST Gender Identity Not on file Sexual Orientation Not on file Last Filed Vital Signs Vital Sign Reading Time Taken Comments Blood Pressure 124/76 06/11/2022 10:40 AM GRANTS OFFICER Pulse 68 06/11/2022 10:40 AM GRANTS OFFICER Temperature - - Respiratory Rate - - Oxygen Saturation - - Inhaled Oxygen Concentration - - Weight 83.5 kg (184 lb) 06/11/2022 10:40 AM GRANTS OFFICER Height 180.3 cm (5' 11) 06/11/2022 10:40 AM GRANTS OFFICER Body Mass Index 25.66 06/11/2022 10:40 AM GRANTS OFFICER Plan of Treatment Health Maintenance Due Date Last Done Comments Pneumococcal PPSV23/PCV13 65 + Years / Low and Medium Risk (2 of 3 - PPSV23) 03/07/2021 03/07/2020 COVID-19 Vaccine (2023-2 5 season) 2024 11/20/2021, 03/20/2021, 07/17/2020, Additional history exists Influenza Vaccine (Season Ended) 2025 02/26/2022, 02/17/2021, 02/06/2016, Additional history exists Insurance [employer] Care Teams Guide Escort Relationship Specialty Start Date End Date Gilberto Martinez MD [address] [facility] [address] [place] [phone] PCP - General Internal Medicine 06/11/19
--- OUTSIDE RECORDS SUMMARY | 2024-10-13 19:46 | XMS_ITS | Encounter Summary ---
Author Organization [facility] Address [address] [place] [address] Phone Care Team Providers Care Insulation Packer Name Role Phone Gilberto Martinez MD Primary Care Provider Rossi BLACK MD, Zane Morataya Unavailable [phone] Raudel Childers MD Unavailable Chris Hart MD Unavailable [phone] Ely Tejada Unavailable Charlee Mcmillan Unavailable Unavailable Mariama Parisi RN Unavailable [phone] Agustina Li MD PhD Unavailable Encounter Details Date Type Department Care Team (Late st Contact Info) Description 10/08/2024 Orders Only [facility] Oncology [address] [facility] [address] [place] [address] Agustina Li MD PhD [address] [facility] [address] [place] [address] Social History Tobacco Use Types Packs/Day Years Used Date Smoking Tobacco: Former Cigarettes 0.3 23 1 968 - 1991 Pipe Cigars Smokeless Tobacco: Never OASIS D0700: [...] materials from doctor or pharmacy Sometimes 09/08/2024 [facility] Utilities Answer Date Recorded In the past 12 months has th e [employer], [employer], oil, or water [employer] threatened to shut off services in your [...] How often do you attend chur or mosque services? More than 4 times per year 08/24/2024 Do you belong to any clubs o r organizations such as rastafarian groups, unions, fraternal or athletic groups, or [...] Date Recorded PHQ-2 Total Score 0 03/16/2024 [facility] Occupat ional [facility] - Occupational Stress Questionnaire Answer Date [...] any time in the past 12 m [facility], were you homeless or living in a prison (including now)? No 08/24/2024 Personal Safety Answer Date Recorded Have you ever been in or are you currently in a harmful physical or emotional relationship or is someone making you feel afraid or unsafe? 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 Gender Identity Male 12/06/2019 4:39 PM CDT Sexual Orientation Straight 12/06/2019 4: 39 PM CDT documented as of this encounter Plan of Treatment Upcoming Encounters Date Type Department Care Team (Latest Contact Info) Description 10/15/2024 11:00 AM CDT Hospital Encounter [facility] [address] [place] [phone] Chris Holcomb MD [address] [address] History of biliary stent insertion 10/15/2024 11:00 AM CDT - 10/15/2024 11:30 AM CDT Surgery [facility] [address] [place] [address] [phone] Chris Holcomb MD [address] [address] ERCP Stent Exch INR mail lab at 0900 [[id number]] Scheduled Procedures Name Priority Associated Diagnoses Date/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) documented as of this encounter Visit Diagnoses Not on filedocumented in this encounter Care Teams Insulation Packer Relationship Specialty Start Date End Date Gilberto Martinez MD [address] [address] PCP - General 07/11/16 Zane Richey III, MD [address] [facility] [address] [place] [address] Consulting Physician Cardiology 05/18/21 Raudel Childers MD [address] [facility] [id number] [place] [address] Consulting Physician Colon and Rectal Surgery 12/26/21 Chris Hart MD [address] [facility] [address] [place] [address] Title Camera Operator Cardiology 03/17/24 Ely Tejada PA [address] [facility] [id number] [place] [address] Referring Physician Physician Inspector Publications 04/09/24 Charlee Mcmillan RMA Surgical Prehabilitation and Readiness (SPAR) Coordinator 06/11/24 Mariama Parisi, RN [address] [facility] [address] [place] [address] Mechanical Equipment Sales Engineer 08/07/24 Agustina Li MD PhD [address] [place] [address] Medical Oncologist/Director Of Distance Learning Medical Oncology 09/09/24 documented as of this encounter
--- OUTSIDE RECORDS SUMMARY | 2024-10-13 19:46 | XMS_ITS | Encounter Summary ---
Author Organization [facility] Healthcare Address [address] [place] [address] Care Team Providers Care Party Plan Sales Unit Advisor Name Role Phone Gilberto Martinez MD Primary Care Provider Rossi BLACK MD, Zane Morataya Unavailable [phone] Raudel Childers MD Unavailable Chris Hart MD Unavailable Ely Tejada Unavailable [phone] Charlee McmillanA Unavailable Unavailable Mariama Parisi RN Unavailable Agustina Li MD PhD Unavailable [phone] Reason for Referral * MRI/CAT/PET Scan (Routine) - Closed Specialty Diagnoses / Procedures Referred By Contac t Referred To Contact Radiology Diagnoses 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) Procedures CT Chest Abdomen Pelvis W Contrast CT Chest Abdomen Pelvis W WO Contrast Jamin Posey MD [address] [place] [address] Phone: tel: fax: [address] [phone] Referral ID Status Reason Start Date Expiration Date Visits Re quested Visits Authorized [id number] Closed 10/01/2024 10/31/2025 1 1 Reason for Visit * MRI/CAT/PET Scan (Routine) - Closed Specialty Diagnoses / Procedures Referred By Contac t Referred To Contact Radiology Diagnoses 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) Procedures CT Chest Abdomen Pelvis W Contrast CT Chest Abdomen Pelvis W WO Contrast Jamin Posey MD [address] [place] [address] Phone: tel: fax: [facility] [place] [address] Referral ID Status Reason Start Date Expiration Date Visits Re quested Visits Authorized [id number] Closed 10/01/2024 10/31/2025 1 1 Encounter Details Date Type Department Care Team (Latest Contact Info) Description 10/12/2024 9:38 AM CDT - 10/12/2024 11:59 PM CDT Hospital Encounter [facility] [address] [place] [id number] 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 More than 4 times per year 08/24/2024 Do you belong to any clubs o r organizations such as anglican groups, unions, fraternal or athletic groups, or [...] Date Recorded PHQ-2 Total Score 0 03/16/2024 [facility] of Occupat ional Health - Occupational Stress [...] any time in the past 12 m [facility], were you homeless or living in a [place] facility (including now)? No 08/24/2024 Personal Safety Answer Date Recorded Have you ever been in or are you currently in a harmful physical or emotional relationship or is someone making you feel afraid or unsafe? Denies 08/21/2024 Sex and Gender Information Value Date Recorded Sex Assigned at Not on file Legal Sex Male 6:21 AM RETURN AGENT Gender Identity Male 12/06/2019 4:39 PM CDT Sexual Orientation Straight 12/06/2019 4: 39 PM CDT documented as of this encounter Medications at Time of Discharge acetaminophen (TYLENOL) 500 mg tabletIndications:Pain Take 1 tablet (500 mg total) by mouth every 6 (six) hours as needed for pain 16 tablet 5 al & mag hydroxide simethicone-diphenhydr psayf-utuvsphox-yewudo in (MAGIC MOUTHWASH) suspensionIndications: oral thrush Swish and spit 15 mL every 4 (four) hours as needed (mucositis) 300 mL 5 albuterol HFA (PROVENTIL HFA,VENTOLIN HFA,PROAIR HFA) 90 mcg/actuation inhalerIndications:Acu te Asthma Attack Inhale 2 puffs every 6 (six) hours as needed for wheezing 3 each 4 5 09/08/19 26 amLODIPine (NORVASC) 5 mg tabletIndications:hype rtension Take 1 tablet (5 mg total) by mouth every morning 4 benzocaine-menthoL (CHLORASEPTIC) 6-10 mg lozengeIndications:Sor e Throat Take 1 lozenge by mouth every 3 (three) hours as needed for sore throat 100 tablet 5 benzonatate (TESSALON) 100 mg capsuleIndications:Cou gh Take 1 capsule (100 mg total) by mouth 3 (three) times a day as needed for cough 50 capsule 5 betahistine TAKE 1 CAPSULE (24 MG TOTAL) BY MOUTH 3 TIMES A DAY WITH FOOD 270 capsule 4 5 budesonide EC (ENTOCORT EC) 3 mg 24 hr capsuleIndications:Ken g-induced colitis,Hilar cholangiocarcinoma (HCC) Take 1 capsule (3 mg total) by mouth every morning 30 capsule 5 calcium carbonate (TUMS) 500 mg (200 mg elemental calcium) chewable tabletIndications:Hypo calcemia Prevention Take 1 tablet/chew tab (500 mg total) by mouth 3 (three) times a day as needed for indigestion or heartburn 90 tablet 5 09/07/19 26 capecitabine (XELODA) 500 mg tabletIndications:mayela r cholangiocarcinoma Indications: hilar cholangiocarcino ma. Take 1500mg (3 tablets) by mouth each morning and 2000mg (4 tablets) by mouth each evening for 14 days. Then hold for 7 days. Repeat. 98 tablet 5 capecitabine (XELODA) 500 mg tabletIndications:mayela r cholangiocarcinoma Indications: hilar cholangiocarcino ma. Take 1500mg (3 tablets) by mouth each morning and 1500mg (3 tablets) by mouth each evening for 7 days on and 7 days off. Repeat. 84 tablet 5 capecitabine (XELODA) 500 mg tabletIndications:canc er Take 500 mg by mouth 6 (six) times a day. Take 3 tablets (1500 mg) by mouth each morning and 3 tablets (1500mg) by mout each evening for 7 days on and 7 days off. repeat. 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 60 g 1 5 diphenhydrAMINE (BENADRYL) 50 mg capsule Take 1 capsule (50 mg total) by mouth once for 1 dose Take one tablet 1 hour prior to imaging 1 capsule 5 famotidine (PEPCID) 20 mg tabletIndications:mk roesophageal reflux disease Take 1 tablet (20 mg total) by mouth daily 30 tablet 11 5 09/08/19 26 ferrous sulfate 325 mg (65 mg of elemental iron) tabletIndications:Iron Deficiency Anemia Take 1 tablet (325 mg total) by mouth 2 (two) times a day with meals 60 tablet 2 5 hydroCHLOROthiazide (HYDRODIURIL) 25 mg tabletIndications:hype rtension Take 1 tablet (25 mg total) by mouth every morning 4 lisinopriL (PRINIVIL,ZESTRIL) 40 mg tabletIndications:hype rtension Take 1 tablet (40 mg total) by mouth every morning 4 loperamide (IMODIUM) 2 mg capsuleIndications:ralph rrhea Take 1 capsule (2 mg total) by mouth 4 (four) times a day as needed for diarrhea meclizine (ANTIVERT) 25 mg tabletIndications:Vert igo Take 1 tablet (25 mg total) by mouth every 6 (six) hours as needed for dizziness 30 tablet 4 multivitamin tabletIndications:Melanie min Deficiency Prevention Take 1 tablet by mouth firebreak cutter before breakfast oxyCODONE (ROXICODONE) 5 mg immediate release tabletIndications:Pain Take 1 tablet (5 mg total) by mouth 4 (four) times a day as needed for pain 28 tablet 5 oxygenIndications:Dysp jo Administer 3 L/min into each nostril continuously. 1L to 3L with activity Indications: trouble breathing polyethylene glycol (MIRALAX) 17 gram/dose bulk powderIndications:cons tipation Take 17 g by mouth daily as needed (if no bowel movement in > 24 hrs) 510 g 5 prochlorperazine (COMPAZINE) 5 mg tabletIndications:Canc er Chemotherapy-Induced Nausea and Vomiting,Nausea and Vomiting,Prevention of Chemotherapy-Induced Nausea and Vomiting Take 1 tablet (5 mg total) by mouth every 8 (eight) hours as needed for nausea or vomiting 20 tablet 5 simvastatin (ZOCOR) 10 mg tabletIndications:hype rlipidemia Take 1 tablet (10 mg total) by mouth nightly 5 sodium chloride (OCEAN) 0.65 % nasal sprayIndications:Dry Nose Administer 1 spray into each nostril every 2 (two) hours as needed for congestion 15 mL 5 09/07/19 26 sotaloL (BETAPACE) 80 mg tabletIndications:Prev ention of Recurrent Atrial Fibrillation Take 1 tablet (80 mg total) by mouth 2 (two) times a day 180 tablet 3 5 08/18/19 26 spironolactone (ALDACTONE) 25 mg tabletIndications:hype rtension Take 1 tablet (25 mg total) by mouth daily 90 tablet 3 4 03/31/20 25 tamsulosin (FLOMAX) 0.4 mg extended release capsuleIndications:vasquez ign prostatic hyperplasia with lower urinary tract sx Take 1 capsule (0.4 mg total) by mouth daily with dinner 30 capsule 5 temazepam (RESTORIL) 30 mg capsuleIndications:Ins omnia Take 1 capsule (30 mg total) by mouth nightly as needed for sleep 30 capsule 5 10/17/19 25 urea (CARMOL) 20 % creamIndications:Hyper keratosis,chemotherapy induced hand foot syndrome Apply to hands and feet 3x daily and as needed. 85 g 3 5 warfarin (COUMADIN) 1 mg tabletIndications:atri al fibrillation Take 1 tablet (1 mg total) by mouth daily 30 tablet documented as of this encounter Discharge Disposition Disposition Code Departure Means Destination Discharge to home or self care documented in this encounter Plan of Treatment Upcoming Encounters Date Type Department Care Team (Latest Contact Info) Description 10/15/2024 11:00 AM CDT Hospital Encounter 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 2. Unchanged hypoattenuating hepatic IVb lesion, stable dating back to 05/01/2024. No disease progression. 3. No evidence of metastatic disease in the chest. Electronically signed by: Cheri Craig M.D. Narrative 10/12/2024 11:05 AM CDT EXAMINATION: CT CHEST ABDOMEN PELVIS W CONTRAST HISTORY: 74-year-old with hilar cholangiocarcinoma on maintenance therapy with radiation to the hilum completed in June 2024. Patient had diagnostic laparoscopy and 06/16/2024 without evidence of metastatic disease or mass within the liver. TECHNIQUE: Transaxial computed tomographic images of the chest, abdomen and pelvis were obtained with intravenous contrast according to the standard protocol after the uneventful administration of 69 mL Opti-Ray 350 intravenous contrast. COMPARISON: CT 08/22/2024, MRI 07/10/2024, CT 05/01/2024 FINDINGS: Calcified granulomas. A triangular john-fissural right middle lobe nodules unchanged likely a lymph node ((series 3, image 76). No new suspicious pulmonary nodule. Trachea and central airways are clear. Unchanged multinodular thyroid. No supraclavicular or axillary lymphadenopathy. A right chest port terminates in the superior cavoatrial junction. There is a left subclavian approach pacemaker defibrillator with leads in right atrium and right ventricle. No mediastinal or hilar lymphadenopathy. Calcified left hilar granulomas. The thoracic aorta is normal caliber with aortic valve calcifications. There is a bovine aortic arch. Heart size is normal without pericardial effusion. Calcified coronary artery atherosclerosis. Unchanged subcentimeter left paratracheal node (series 2, image 55). Mild gynecomastia. There is an unchanged attenuating 1.6 x 1.4 cm lesion in hepatic segment 4B (series 2, image 158), which is unchanged dating back to 05/01/2024. There is no new suspicious liver lesion. Redemonstrated is a Bismuth IV hilar cholangiocarcinoma with ill-defined soft tissue thickening that encases the common hepatic duct and extends to the hilum and proximal left and right hepatic ducts there is a plastic stent that extends from the left and right hepatic ducts into the 3rd portion of the duodenum. There is mild peribiliary thickening and enhancement (series 2, image 150). The hilar soft tissue thickening results in severe narrowing of the left portal vein branches with encasement and complete encasement of the left hepatic artery, which is similar to prior examination. There is also encasement of the proximal aspect of the right portal vein and proximal right hepatic artery. There is moderate left and mild right intrahepatic biliary duct ductal dilation, which is stable compared to prior examination. There is ill-defined hypoattenuation that extends superiorly from the hilum and hepatic segment 8/4 A that measures approximately 2.7 x 1.6 cm, previously 2.4 x 1.5 cm (series 2, image 135). The patient is status post cholecystectomy. The pancreas and spleen are normal. There is a round gastrohepatic lymph node is unchanged and measures 5 mm (series 2, image 134). No new lymphadenopathy in the upper abdomen. Normal adrenal glands. There is unchanged renal cortical scarring. Hypoattenuating right interpolar renal lesion too small characterize but likely represents a cyst. There are multiple left renal cysts. No hydronephrosis. The superior mesenteric vein splenic vein are patent. The celiac, superior mesenteric, renal and inferior mesenteric arteries are patent. Normal caliber abdominal aorta. Urinary bladder mildly distended. Prostate enlarged. No pelvic lymphadenopathy or free fluid. No bowel obstruction. Colonic diverticulosis. Small bowel is normal in caliber. Stomach and duodenal sweep are unremarkable. No omental or peritoneal nodularity. As a milk of calcium cyst in the left mid zone (series 4, image 65). Mild T8 and T6 compression fracture, unchanged. No fracture or suspicious osseous lesion.. Procedure Note Cheri Craig MD - 10/12/2024 EXAMINATION: CT CHEST ABDOMEN PELVIS W CONTRAST HISTORY: 74-year-old with hilar cholangiocarcinoma on maintenance therapy with radiation to the hilum completed in June 2024. Patient had diagnostic laparoscopy and 06/16/2024 without evidence of metastatic disease or mass within the liver. TECHNIQUE: Transaxial computed tomographic images of the chest, abdomen and pelvis were obtained with intravenous contrast according to the standard protocol after the uneventful administration of 69 mL Opti-Ray 350 intravenous contrast. COMPARISON: CT 08/22/2024, MRI 07/10/2024, CT 05/01/2024 FINDINGS: Calcified granulomas. A triangular john-fissural right middle lobe nodules unchanged likely a lymph node ((series 3, image 76). No new suspicious pulmonary nodule. Trachea and central airways are clear. Unchanged multinodular thyroid. No supraclavicular or axillary lymphadenopathy. A right chest port terminates in the superior cavoatrial junction. There is a left subclavian approach pacemaker defibrillator with leads in right atrium and right ventricle. No mediastinal or hilar lymphadenopathy. Calcified left hilar granulomas. The thoracic aorta is normal caliber with aortic valve calcifications. There is a bovine aortic arch. Heart size is normal without pericardial effusion. Calcified coronary artery atherosclerosis. Unchanged subcentimeter left paratracheal node (series 2, image 55). Mild gynecomastia. There is an unchanged attenuating 1.6 x 1.4 cm lesion in hepatic segment 4B (series 2, image 158), which is unchanged dating back to 05/01/2024. There is no new suspicious liver lesion. Redemonstrated is a Bismuth IV hilar cholangiocarcinoma with ill-defined soft tissue thickening that encases the common hepatic duct and extends to the hilum and proximal left and right hepatic ducts there is a plastic stent that extends from the left and right hepatic ducts into the 3rd portion of the duodenum. There is mild peribiliary thickening and enhancement (series 2, image 150). The hilar soft tissue thickening results in severe narrowing of the left portal vein branches with encasement and complete encasement of the left hepatic artery, which is similar to prior examination. There is also encasement of the proximal aspect of the right portal vein and proximal right hepatic artery. There is moderate left and mild right intrahepatic biliary duct ductal dilation, which is stable compared to prior examination. There is ill-defined hypoattenuation that extends superiorly from the hilum and hepatic segment 8/4 A that measures approximately 2.7 x 1.6 cm, previously 2.4 x 1.5 cm (series 2, image 135). The patient is status post cholecystectomy. The pancreas and spleen are normal. There is a round gastrohepatic lymph node is unchanged and measures 5 mm (series 2, image 134). No new lymphadenopathy in the upper abdomen. Normal adrenal glands. There is unchanged renal cortical scarring. Hypoattenuating right interpolar renal lesion too small characterize but likely represents a cyst. There are multiple left renal cysts. No hydronephrosis. The superior mesenteric vein splenic vein are patent. The celiac, superior mesenteric, renal and inferior mesenteric arteries are patent. Normal caliber abdominal aorta. Urinary bladder mildly distended. Prostate enlarged. No pelvic lymphadenopathy or free fluid. No bowel obstruction. Colonic diverticulosis. Small bowel is normal in caliber. Stomach and duodenal sweep are unremarkable. No omental or peritoneal nodularity. As a milk of calcium cyst in the left mid zone (series 4, image 65). Mild T8 and T6 compression fracture, unchanged. No fracture or suspicious osseous lesion.. IMPRESSION: 1. 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 2. Unchanged hypoattenuating hepatic IVb lesion, stable dating back to 05/01/2024. No disease progression. 3. No evidence of metastatic disease in the chest. Electronically signed by: Cheri Craig M.D. 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) Malignant neoplasm of intrahepatic bile ducts History of biliary stent insertion documented in this encounter Administered Medications Inactive Administered Medications - up to 3 most recent administrations Medication Order MAR Action Action Date Dose Rate Site ioversoL (OPTIRAY 350) syringe 75 mL 75 mL, intravenous, Once in imaging, contrast, Starting on 10/12/24 at 1040, For 1 dose Contrast Given 10/12/2024 10:41 AM CDT 69 mL documented in this encounter Orders Medications Ordered That Lam ht Not Have Been Administered Count Last Ordered Date First Ordered Date ioversoL (OPTIRAY 350) syringe 75 mL 1 01/2025 documented in this encounter Care Teams Party Plan Sales Unit Advisor Relationship Specialty Start Date End Date Gilberto Martinez MD [address] [facility] [address] [place] [address] PCP - General 07/11/16 Zane Richey III, MD [address] [facility] [address] [place] [address] Consulting Physician Cardiology 05/18/21 Raudel Childers MD [id number] [place] [address] Consulting Physician Colon and Rectal Surgery 12/26/21 Chris Hart MD [address] [facility] [address] [place] [address] Business Objects Analyst Cardiology 03/17/24 Ely Tejada PA [id number] [place] [address] Referring Physician Physician Nursing Support Worker 04/09/24 Charlee Mcmillan RMA Surgical Prehabilitation and Readiness (SPAR) Coordinator 06/11/24 Mariama Parisi, RN [address] [facility] [address] [place] [address] Development Officer 08/07/24 Agustina Li MD PhD [id number] [place] [address] Medical Oncologist/Wire Welder Medical Oncology 09/09/24 documented as of this encounter
--- OUTSIDE RECORDS SUMMARY | 2024-10-13 19:46 | XMS_ITS | Encounter Summary ---
Author Organization [facility] [place] Address [address] [place] [address] Phone Care Team Providers Care Cam Specialist Name Role Phone Gilberto Martinez MD Primary Care Provider Rossi BLACK MD, Zane Morataya Unavailable [phone] Raudel Childers MD Unavailable Chris Hart MD Unavailable Ely Tejada Unavailable [phone] Charlee Mcmillan Unavailable Unavailable Mariama Parisi RN Unavailable [phone] Agustina Li MD PhD Unavailable [phone] Encounter Details Date Type Department Care Team (Late st Contact Info) Description 10/13/2024 Telephone [facility] Oncology [facility] [address] [place] [address] Bebe Sage RN Social History Tobacco Use Types Packs/Day [...] materials from doctor or pharmacy Sometimes 09/08/2024 [facility] Utilities Answer Date Recorded In the past 12 months has e [employer], gas, oil, or water [employer] threatened to shut off services in your [...] often do you attend chur ch or methodist services? More than 4 times per year 08/24/2024 Do you belong to any clubs o r organizations such as oriental orthodox groups, unions, fraternal or athletic groups, [...] Recorded PHQ-2 Total Score 0 03/16/2024 [facility] Occupat ional [facility] - Occupational Stress [...] any time in the past 12 m [facility], were you homeless or living in a correction (including now)? No 08/24/2024 Personal Safety Answer Date Recorded Have you ever been in or are you currently in a harmful physical or emotional relationship or is someone making you feel afraid or unsafe? 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 He had chills this afternoon, along with poor appetite, fatigue and nausea. No vomiting or diarrhea, no shortness of breath or URI symptoms. He has already taken his two doses of capecitabine today and would be due for one in the AM. I advised he be seen tonight. [facility] has no appointments. He does not want to go to [facility]. He will go locally to [facility]. I asked him to please check in with his clinical team prior to taking his morning dose of capecitabine. I did speak with the RN at [facility] in triage. Messagerouted to Dr. Li's team. documented in this encounter Plan of Treatment Upcoming Encounters Date Type Department Care Team (Latest Contact Info) Description 10/15/2024 11:00 AM CDT Hospital Encounter [facility] [address] [place] [address] [phone] Chris Holcomb MD [address] [address] History of biliary stent insertion 10/15/2024 11:00 AM CDT - 10/15/2024 11:[address] 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) documented as of this encounter Visit Diagnoses Not on filedocumented in this encounter Care Teams Cam Specialist Relationship Specialty Start Date End Date Gilberto Martinez MD [address] [place] [address] PCP - General 07/11/16 Zane Richey III, MD [address] [place] [address] Consulting Physician Cardiology 05/18/21 Raudel Childers MD [address] [facility] [phone] [place] [address] Consulting Physician Colon and Rectal Surgery 12/26/21 Chris Hart MD [address] [facility] [address] [place] [address] Synthetic Soil Blocks Pulper Cardiology 03/17/24 Ely Tejada PA [address] [facility] [id number] [place] [address] Referring Physician Physician Biztalk Consultant 04/09/24 Charlee Mcmillan RMA Surgical Prehabilitation and Readiness (SPAR) Coordinator 06/11/24 Mariama Parisi, RN [address] [facility] [address] [place] [address] Tower Technician 08/07/24 Agustina Li MD PhD [address] [place] [address] Medical Oncologist/Architect Medical Oncology 09/09/24 documented as of this encounter
--- OUTSIDE RECORDS SUMMARY | 2024-10-13 19:46 | XMS_ITS | Encounter Summary ---
Author Organization [facility] Address [address] [place] [address] Phone Care Team Providers Care Privacy Attorney Name Role Phone Gilberto Martinez MD Primary Care Provider Rossi BLACK MD, Zane Morataya Unavailable [phone] Raudel Childers MD Unavailable [phone] Chris Hart MD Unavailable Ely Tejada Unavailable Charlee Mcmillan Unavailable Unavailable Mariama Parisi RN Unavailable Agustina Li MD PhD Unavailable Encounter Details Date Type Department Care Team (Late st Contact Info) Description 10/13/2024 10:00 AM CDT Office Visit [facility] [address] [facility] Medical Office Building [address] [place] [address] Rater, MICAH Leonard [address] [address] Social History Tobacco Use Types Packs/Day [...] materials from doctor or pharmacy Sometimes 09/08/2024 [facility] Utilities Answer Date Recorded In the past 12 months has th e [employer], [employer], oil, or water [employer] threatened to shut off services in your [...] How often do you attend chur or amish services? More than 4 times per year 08/24/2024 Do you belong to any clubs o r organizations such as latter-day groups, unions, fraternal or athletic groups, or [...] PHQ-2 Total Score 0 03/16/2024 [facility]at ional [facility] - Occupational Stress Questionnaire Answer [...] time in the past 12 m [facility], were you homeless or living in a detention (including now)? No 08/24/2024 Personal Safety Answer Date Recorded Have you ever been in or are you currently in a harmful physical or emotional relationship or is someone making you feel afraid or unsafe? 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 Gender Identity Male 12/06/2019 4:39 PM CDT Sexual Orientation Straight 12/06/2019 4: 39 PM CDT documented as of this encounter Last Filed Vital Signs Vital Sign Reading Time Taken Comments Blood Pressure 106/48 10/13/2024 9:57 AM CDT Pulse 60 10/13/2024 9:57 AM CDT Temperature - - Respiratory Rate - - Oxygen Saturation 96% 10/13/2024 9:57 AM CDT Inhaled Oxygen Concentration - - Weight 86.1 kg (189 lb 12.8 oz) 10/13/2024 9:57 AM CDT Height 177.8 cm (5' 10) 10/13/2024 9:57 AM CDT Body Mass Index 27.23 10/13/2024 9:57 AM CDT documented in this encounter Patient Instructions * Patient Instructions* Aisha Delcid NP - 10/13/2024 10:00 AM CDT Please call for any questions [phone] Goal Blood Pressure is 130/80 or less No changes documented in this encounter Plan of Treatment Upcoming Encounters Date Type Department Care Team (Latest Contact Info) Description 10/15/2024 11:00 AM CDT Hospital Encounter [facility] [address] [place] [phone] Chris Holcomb MD [address] [place] [address] History of biliary stent insertion 10/15/2024 11:00 AM CDT - 10/15/2024 11:30 AM CDT Surgery [facility] [address] [place] [phone] Chris Holcomb MD [address] [place] [address] ERCP Stent Exch INR mail lab at 0900 [[id number]] Scheduled Procedures Name Priority Associated Diagnoses Date/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) documented as of this encounter Visit Diagnoses Not on filedocumented in this encounter Care Teams Privacy Attorney Relationship Specialty Start Date End Date Gilberto Martinez MD [address] [facility] [address] [place] [address] PCP - General 07/11/16 Zane Richey III, MD [address] [facility] [address] [place] [address] Consulting Physician Cardiology 05/18/21 Raudel Childers MD [address] [facility] [phone] [place] [address] Consulting Physician Colon and Rectal Surgery 12/26/21 Chris Hart MD [address] [facility] [address] [place] [address] [employer] Pilot Cardiology 03/17/24 Ely Tejada PA [address] [facility] [id number] [place] [address] Referring Physician Physician Cement Boat And Barge Loader 04/09/24 Charlee Mcmillan RMA Surgical Prehabilitation and Readiness (SPAR) Coordinator 06/11/24 Mariama Parisi, RN [address] [facility] [address] [place] [address] Automobile Travel Club Counselor 08/07/24 Agustina Li MD PhD [address] [place] [address] Medical Oncologist/Fermentation Manager Medical Oncology 09/09/24 documented as of this encounter
--- OUTSIDE RECORDS SUMMARY | 2024-10-13 19:46 | XMS_ITS ---
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 Patient has a pacemaker- NO MRI Problem Noted Date Diagnosed Date Acute hypoxemic respiratory failure 09/03/2024 Assessment & Plan (09/07/2024 8:02 PM CDT): Requiring 1-2L O2 since after sigmoidoscopy. CXR 08/31 trace interstitial edema, left small effusion, bibasal atelectasis. Given lasix 20mg IV 08/31 CXR 09/03 with atelectasis. Has dyspnea on exertion but not at rest. Also with b/l leg swelling a little bit improving with diuresis Unlikely from PE, patient has been on anticoagulation since diagnosis of Afib last year (previously Eliquis then changed to warfarin this year as patient is on liver transplant list). Does have grade I diastolic dysfunction on most recent TTE but does not appear overtly volume overloaded except for b/l leg swelling Overnight 09/03 placed on 5L, unclear if SpO2 was accurate at that time. He does have SYLVIE and was off his CPAP at that time Possibly from atelectasis, deconditioning - Dopplers b/l LE negative - Patient did have stress test on 06/11/2024 and no evidence of ischemia. Patient has known severe mitral valve prolapse with moderate regurgitation per MARK 05/2024 Pro-BNP 1500s 09/04. Due to persistent FERRARA and b/l leg swelling and high BNP, TTE obtained 09/04: still with MV prolapse and mod regurgitation, LVEF 66%. CXR 09/04 unchanged from prior, still w/ atelectasis - FERRARA and hypoxia likely multifactorial: deconditioning, cancer-related debility, atelectasis, MV prolapse and MR possibly also contributing. Consulted Cardiology-Oncology re if pt's symptoms are proportional to severity of MVP and MR. Seen at clinic 06/2024 and recommended no valvular intervention. They consider the MV prolapse and MR stable; and that dyspnea is likely multifactorial. Lasix 40mg IV for b/l leg swelling. - Continue incentive spirometry. - home o2 eval done on 09/06. 1L at rest and 3L on exertion. Assessment & Plan (09/06/2024 5:24 PM CDT): Requiring 1-2L O2 since after sigmoidoscopy. CXR 08/31 trace interstitial edema, left small effusion, bibasal atelectasis. Given lasix 20mg IV 08/31 CXR 09/03 with atelectasis. Has dyspnea on exertion but not at rest. Also with b/l leg swelling a little bit improving with diuresis Unlikely from PE, patient has been on anticoagulation since diagnosis of Afib last year (previously Eliquis then changed to warfarin this year as patient is on liver transplant list). Does have grade I diastolic dysfunction on most recent TTE but does not appear overtly volume overloaded except for b/l leg swelling Overnight 09/03 placed on 5L, unclear if SpO2 was accurate at that time. He does have SYLVIE and was off his CPAP at that time Possibly from atelectasis, deconditioning - Dopplers b/l LE negative - Patient did have stress test on 06/11/2024 and no evidence of ischemia. Patient has known severe mitral valve prolapse with moderate regurgitation per MARK 05/2024 Pro-BNP 1500s 09/04. Due to persistent FERRARA and b/l leg swelling and high BNP, TTE obtained 09/04: still with MV prolapse and mod regurgitation, LVEF 66%. CXR 09/04 unchanged from prior, still w/ atelectasis - FERRARA and hypoxia likely multifactorial: deconditioning, cancer-related debility, atelectasis, MV prolapse and MR possibly also contributing. Consulted Cardiology-Oncology re if pt's symptoms are proportional to severity of MVP and MR. Seen at clinic 06/2024 and recommended no valvular intervention. They consider the MV prolapse and MR stable; and that dyspnea is likely multifactorial. Lasix 40mg IV for b/l leg swelling. - Continue incentive spirometry. Wean O2 as tolerated - home o2 eval done on 09/06. 1L at rest and 3L on exertion. - Low threshold to start empiric antibiotics; pt does have coronavirus (non- covid) URI but currently no evidence of pneumonia Assessment & Plan (09/05/2024 11:54 AM CDT): Requiring 1-2L O2 since after sigmoidoscopy. CXR 08/31 trace interstitial edema, left small effusion, bibasal atelectasis. Given lasix 20mg IV 08/31 CXR 09/03 with atelectasis. Has dyspnea on exertion but not at rest. Also with b/l leg swelling a little bit improving with diuresis Unlikely from PE, patient has been on anticoagulation since diagnosis of Afib last year (previously Eliquis then changed to warfarin this year as patient is on liver transplant list). Does have grade I diastolic dysfunction on most recent TTE but does not appear overtly volume overloaded except for b/l leg swelling Overnight 09/03 placed on 5L, unclear if SpO2 was accurate at that time. He does have SYLVIE and was off his CPAP at that time Possibly from atelectasis, deconditioning - Dopplers b/l LE negative - Patient did have stress test on 06/11/2024 and no evidence of ischemia. Patient has known severe mitral valve prolapse with moderate regurgitation per MARK 05/2024 Pro-BNP 1500s 09/04. Due to persistent FERRARA and b/l leg swelling and high BNP, TTE obtained 09/04: still with MV prolapse and mod regurgitation, LVEF 66%. CXR 09/04 unchanged from prior, still w/ atelectasis - FERRARA and hypoxia likely multifactorial: deconditioning, cancer-related debility, atelectasis, MV prolapse and MR possibly also contributing. Consulted Cardiology-Oncology re if pt's symptoms are proportional to severity of MVP and MR. Seen at clinic 06/2024 and recommended no valvular intervention. They consider the MV prolapse and MR stable; and that dyspnea is likely multifactorial. Lasix 40mg IV for b/l leg swelling. - Continue incentive spirometry. Wean O2 as tolerated - Perform ambulatory home O2 eval prior to discharge - Low threshold to start empiric antibiotics; pt does have coronavirus (non- covid) URI but currently no evidence of pneumonia Assessment & Plan (09/04/2024 3:15 PM CDT): Requiring 1-2L O2 since after sigmoidoscopy. CXR 08/31 trace interstitial edema, left small effusion, bibasal atelectasis. Given lasix 20mg IV 08/31 CXR 09/03 with atelectasis. Has dyspnea on exertion but not at rest. Also with b/l leg swelling a little bit improving with diuresis Unlikely from PE, patient has been on anticoagulation since diagnosis of Afib last year (previously Eliquis then changed to warfarin this year as patient is on liver transplant list). Does have grade I diastolic dysfunction on most recent TTE but does not appear overtly volume overloaded except for b/l leg swelling Overnight 09/03 placed on 5L, unclear if SpO2 was accurate at that time. He does have SYLVIE and was off his CPAP at that time Possibly from atelectasis, deconditioning - Dopplers b/l LE negative - Patient did have stress test on 06/11/2024 and no evidence of ischemia. Patient has known severe mitral valve prolapse with moderate regurgitation per MARK 05/2024 Pro-BNP 1500s 09/04. Due to persistent FERRARA and b/l leg swelling and high BNP, TTE obtained 09/04: still with MV prolapse and mod regurgitation, LVEF 66%. CXR 09/04 unchanged from prior, still w/ atelectasis - FERRARA and hypoxia likely multifactorial: deconditioning, cancer-related debility, atelectasis, MV prolapse and MR possibly also contributing. Consult Cardiology-Oncology re if pt's symptoms are proportional to severity of MVP and MR. Seen at clinic 06/2024 and plan was to discuss valve management approach at Heart Team meeting - Continue incentive spirometry. Wean O2 as tolerated - Perform ambulatory home O2 eval - Low threshold to start empiric antibiotics; pt does have coronavirus (non- covid) URI but currently no evidence of pneumonia Assessment & Plan (09/03/2024 2:39 PM CDT): Requiring 1-2L O2 since after sigmoidoscopy. CXR 08/31 trace interstitial edema, left small effusion, bibasal atelectasis. Given lasix 20mg IV 08/31 CXR 09/03 with atelectasis. Has dyspnea on exertion but not at rest. Also with b/l leg swelling a little bit improving with diuresis Unlikely from PE, patient has been on anticoagulation since diagnosis of Afib last year (previously Eliquis then changed to warfarin this year as patient is on liver transplant list). Does have grade I diastolic dysfunction on most recent TTE but does not appear overtly volume overloaded except for b/l leg swelling Overnight 09/03 placed on 5L, unclear if SpO2 was accurate at that time. He does have SYLVIE and was off his CPAP at that time Possibly from atelectasis, deconditioning - Obtain Dopplers LE - Patient did have stress test on 06/11/2024 and no evidence of ischemia. TTE on 06/22/2024 showed concentric LV remodeling, normal LV systolic function, LVEF 71%, G1DD, normal RV size, moderate RV hypokinesis. Check pro-BNP. - Continue incentive spirometry - Wean O2 as tolerated - Perform ambulatory home O2 eval - Low threshold to start empiric antibiotics; pt does have coronavirus (non- covid) URI but currently no evidence of pneumonia Hypoxia 09/01/2024 Assessment & Plan (09/02/2024 10:30 AM CDT): SpO2 on low 90s noted after sigmoidoscopy, also with mild dyspnea on exertion. CXR 08/31 trace interstitial edema, left small effusion, bibasal atelectasis. Given lasix 20mg IV 08/31 No SOB at rest. No fever, chills - Low threshold to start empiric antibiotics; pt does have coronavirus (non- covid) URI but currently no evidence of pneumonia - Incentive spirometry. Wean O2 as tolerated - May need home O2 eval prior to discharge Assessment & Plan (09/01/2024 4:08 PM CDT): SpO2 on low 90s noted after sigmoidoscopy, also with mild dyspnea on exertion. CXR 08/31 trace interstitial edema, left small effusion, bibasal atelectasis. Given lasix 20mg IV 08/31 No SOB at rest. No fever, chills - Low threshold to start empiric antibiotics; pt does have coronavirus (non- covid) URI but currently no evidence of pneumonia - Incentive spirometry. Wean O2 as tolerated - May need home O2 eval prior to discharge Upper respiratory tract infection 09/01/2024 Assessment & Plan (09/07/2024 8:02 PM CDT): With mild nasal congestion. Positive coronavirus PCR (non-covid) - Symptomatic relief Assessment & Plan (09/06/2024 5:24 PM CDT): With mild nasal congestion. Positive coronavirus PCR (non-covid) - Symptomatic relief Assessment & Plan (09/05/2024 11:31 AM CDT): With mild nasal congestion. Positive coronavirus PCR (non-covid) - Symptomatic relief Assessment & Plan (09/04/2024 3:50 PM CDT): With mild nasal congestion. Positive coronavirus PCR (non-covid) - Symptomatic relief Assessment & Plan (09/04/2024 3:50 PM CDT): With mild nasal congestion. Positive coronavirus PCR (non-covid) - Symptomatic relief Assessment & Plan (09/04/2024 3:50 PM CDT): With mild nasal congestion. Positive coronavirus PCR (non-covid) - Symptomatic relief Assessment & Plan (09/04/2024 3:51 PM CDT): With mild nasal congestion. Positive coronavirus PCR (non-covid) - Symptomatic relief Nausea vomiting and diarrhea 08/21/2024 Assessment & Plan (09/07/2024 8:02 PM CDT): Patient presenting with nausea, vomiting, diarrhea in the setting of recently initiated capecitabine - Stool culture negative, Cryptosporidium and giardia negative, rotavirus stool negative, C diff negative, norovirus stool negative, (+) non-covid Coronavirus. CT chest abdomen pelvis 08/22- with proctocolitis, infective versus inflammatory. 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 Discontinued 08/29. - GI was consulted. Flexible sigmoidoscopy postponed due to INR being high, givenoral vitamin K and total of 4 FFP were administered to bring INR less than 2; however patient's INR remained greater than 2 hence flexible sigmoidoscopy performed on 08/31. - Biopsy from scope resulted on 09/02: Colonic mucosa with prominent crypt apoptosis, focal acute cryptitis/crypt abscesses, rare crypt dropout, and reactive epithelial changes, negative CMV and adenovirus staining. 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 Discussed with Oncology: started on oral budesonide 9 mg daily 09/02. Of note at that time patient already started having improvement in diarrhea while on scheduled antidiarrheals - Monitor diarrhea. If worsening, will likely start IV steroid - Dc scheduled loperamide, lomotil; prn tincture of opium ($190 co-pay, patient won't be able to pay for it at dc); keep only loperamide as prn. Assessment & Plan (09/06/2024 5:24 PM CDT): Patient presenting with nausea, vomiting, diarrhea in the setting of recently initiated capecitabine - Stool culture negative, Cryptosporidium and giardia negative, rotavirus stool negative, C diff negative, norovirus stool negative, (+) non-covid Coronavirus. CT chest abdomen pelvis 08/22- with proctocolitis, infective versus inflammatory. 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 Discontinued 08/29. - GI was consulted. Flexible sigmoidoscopy postponed due to INR being high, givenoral vitamin K and total of 4 FFP were administered to bring INR less than 2; however patient's INR remained greater than 2 hence flexible sigmoidoscopy performed on 08/31. - Biopsy from scope resulted on 09/02: Colonic mucosa with prominent crypt apoptosis, focal acute cryptitis/crypt abscesses, rare crypt dropout, and reactive epithelial changes, negative CMV and adenovirus staining. 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 Discussed with Oncology: started on oral budesonide 9 mg daily 09/02. Of note at that time patient already started having improvement in diarrhea while on scheduled antidiarrheals - Monitor diarrhea. If worsening, will likely start IV steroid - Dc scheduled loperamide, lomotil; prn tincture of opium ($190 co-pay, patient won't be able to pay for it at co); keep only loperamide as prn. Assessment & Plan (09/05/2024 11:54 AM CDT): Patient presenting with nausea, vomiting, diarrhea in the setting of recently initiated capecitabine - Stool culture negative, Cryptosporidium and giardia negative, rotavirus stool negative, C diff negative, norovirus stool negative, (+) non-covid Coronavirus. CT chest abdomen pelvis 08/22- with proctocolitis, infective versus inflammatory. 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 Discontinued 08/29. - GI was consulted. Flexible sigmoidoscopy postponed due to INR being high, givenoral vitamin K and total of 4 FFP were administered to bring INR less than 2; however patient's INR remained greater than 2 hence flexible sigmoidoscopy performed on 08/31. - Biopsy from scope resulted on 09/02: Colonic mucosa with prominent crypt apoptosis, focal acute cryptitis/crypt abscesses, rare crypt dropout, and reactive epithelial changes, negative CMV and adenovirus staining. 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 Discussed with Oncology: started on oral budesonide 9 mg daily 09/02. Of note at that time patient already started having improvement in diarrhea while on scheduled antidiarrheals - Monitor diarrhea. If worsening, will likely start IV steroid - Dc scheduled loperamide, lomotil; prn tincture of opium ($190 co-pay, patient won't be able to pay for it at dc); keep only loperamide as prn. Assessment & Plan (09/04/2024 3:50 PM CDT): Patient presenting with nausea, vomiting, diarrhea in the setting of recently initiated capecitabine - Stool culture negative, Cryptosporidium and giardia negative, rotavirus stool negative, C diff negative, norovirus stool negative, (+) non-covid Coronavirus. CT chest abdomen pelvis 08/22- with proctocolitis, infective versus inflammatory. - Given temporal relationship, symptoms most likely related to capecitabine - DPD gene sequencing with normal variants (DPD deficiency can lead to severe side effects from capecitabine) - Since diarrhea not improving with supportive measures, started on empiric antibiotics ceftriaxone/Flagyl (08/24-08/29); antibiotic administration without improvement. Discontinued 08/29. - GI was consulted. Flexible sigmoidoscopy postponed due to INR being high, givenoral vitamin K and total of 4 FFP were administered to bring INR less than 2; however patient's INR remained greater than 2 hence flexible sigmoidoscopy performed on 08/31. - Biopsy from scope resulted on 09/02: Colonic mucosa with prominent crypt apoptosis, focal acute cryptitis/crypt abscesses, rare crypt dropout, and reactive epithelial changes, negative CMV and adenovirus staining. 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 Discussed with Oncology: started on oral budesonide 9 mg daily 09/02. Of note at that time patient already started having improvement in diarrhea while on scheduled antidiarrheals - Had soft stools x3 5/2 morning but with subsequent watery diarrhea. Discuss with Oncology regarding potentially starting IV steroid - Dc scheduled loperamide, lomotil; prn tincture of opium; keep only loperamide as prn. Assessment & Plan (09/03/2024 2:39 PM CDT): Patient presenting with subacute nausea/vomiting and diarrhea without red-flags otherwise in setting of recently initiated capecitabine - Stool culture negative, Cryptosporidium and giardia negative, rotavirus stool negative, C diff negative, norovirus stool negative, (+) non-covid Coronavirus. CT chest abdomen pelvis 08/22- with proctocolitis, infective versus inflammatory. - Given temporal relationship, symptoms most likely related to capecitabine - DPD gene sequencing ordered per oncology (DPD deficiency can lead to severe side effects from capecitabine) - Since diarrhea not improving with supportive measures, started on empiric antibiotics ceftriaxone/Flagyl (08/24-08/29); antibiotic administration without improvement. Discontinued 08/29. - GI was consulted. Flexible sigmoidoscopy postponed due to INR being high, givenoral vitamin K and total of 4 FFP were administered to bring INR less than 2; however patient's INR remained greater than 2 hence flexible sigmoidoscopy performed on 08/31. - Biopsy from scope resulted on 09/02: Colonic mucosa with prominent crypt apoptosis, focal acute cryptitis/crypt abscesses, rare crypt dropout, and reactive epithelial changes, negative CMV and adenovirus staining. 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 Discussed with Oncology: started on oral budesonide 9 mg daily 09/02. Of note at that time patient already started having improvement in diarrhea while on scheduled antidiarrheals - Dc scheduled loperamide, lomotil; prn tincture of opium; keep only loperamide as prn. Assessment & Plan (09/02/2024 2:59 PM CDT): Patient presenting with subacute nausea/vomiting and diarrhea without red-flags otherwise in setting of recently initiated capecitabine - Stool culture negative, Cryptosporidium and giardia negative, rotavirus stool negative, C diff negative, norovirus stool negative, (+) non-covid Coronavirus. CT chest abdomen pelvis 08/22- with proctocolitis, infective versus inflammatory. - Given temporal relationship, symptoms most likely related to capecitabine - DPD gene sequencing ordered per oncology (DPD deficiency can lead to severe side effects from capecitabine) - Since diarrhea not improving with supportive measures, started on empiric antibiotics ceftriaxone/Flagyl (08/24-08/29); antibiotic administration without improvement. Discontinued 08/29. - GI was consulted.. Flexible sigmoidoscopy postponed due to INR being high, givenoral vitamin K and total of 4 FFP were administered to bring INR less than 2; however patient's INR remained greater than 2 hence flexible sigmoidoscopy performed on 08/31. - Biopsy from scope resulted on 09/02: Colonic mucosa with prominent crypt apoptosis, focal acute cryptitis/crypt abscesses, rare crypt dropout, and reactive epithelial changes, negative CMV and adenovirus staining. 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 Discuss with Oncology if steroid is helpful in this case. - Continue scheduled loperamide, lomotil; prn tincture of opium Assessment & Plan (09/01/2024 4:08 PM CDT): Patient presenting with subacute nausea/vomiting and diarrhea without red-flags otherwise in setting of recently initiated capecitabine - Stool culture negative, Cryptosporidium and giardia negative, rotavirus stool negative, C diff negative, norovirus stool negative, (+) non-covid Coronavirus. CT chest abdomen pelvis 08/22- with proctocolitis, infective versus inflammatory. - Given temporal relationship, symptoms most likely related to capecitabine - DPD gene sequencing ordered per oncology (DPD deficiency can lead to severe side effects from capecitabine) - Since diarrhea not improving with supportive measures, started on empiric antibiotics ceftriaxone/Flagyl (08/24-08/29); antibiotic administration without improvement. Discontinued 08/29. On scheduled loperamide and Lomotil, tincture of opium was also added p.r.n. - GI has been consulted for possible scope. Flexible sigmoidoscopy postponed due to INR being high, givenoral vitamin K and total of 4 FFP were administered to bring INR less than 2; however patient's INR remained greater than 2 hence flexible sigmoidoscopy being postponed to 08/31. F/u biopsies - Diarrhea improving, switch scheduled loperamide back to prn 09/01. - Continue IVF prn Assessment & Plan (08/31/2024 11:42 AM CDT): - Patient presenting with subacute nausea/vomiting and diarrhea without red- flags otherwise in setting of recently initiated capecitabine - Stool culture negative, Cryptosporidium and giardia negative, rotavirus stool negative, C diff negative, norovirus stool negative, (+) non-covid Coronavirus - CT chest abdomen pelvis 08/22- with proctocolitis, infective versus inflammatory. 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 Discontinued 08/29 - Changed p.r.n. Imodium and Lomotil to scheduled. Tincture of opium was also added p.r.n. -Patient was administered IV fluids. Patient was started on oral rehydration therapy -GI has been consulted for possible scope. Flexible sigmoidoscopy today was postponed again due to INR being high. Oral vitamin K and total of 4 FFP were administered to bring INR less than 2; however patient's INR remained greater than 2 hence flexible sigmoidoscopy being postponed till Saturday. - IV vitamin K 5mg was administered 08/29 to improve INR for flexible sigmoidoscopy. - INR now less than 2. Patient on schedule for flexible sigmoidoscopy with GI today 08/31 - IV Lasix 20 mg IV will be administered today for slight fluid overload/congestion. Assessment & Plan (08/30/2024 12:11 PM CDT): - Patient presenting with subacute nausea/vomiting and diarrhea without red- flags otherwise in setting of recently initiated capecitabine - Stool culture negative, Cryptosporidium and giardia negative, rotavirus stool negative, C diff negative, norovirus stool negative, (+) non-covid Coronavirus - CT chest abdomen pelvis 08/22- with proctocolitis, infective versus inflammatory. 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 Discontinued 08/29 - Changed p.r.n. Imodium and Lomotil to scheduled. Tincture of opium was also added p.r.n. -Patient was administered IV fluids. Patient was started on oral rehydration therapy -GI has been consulted for possible scope. Flexible sigmoidoscopy today was postponed again due to INR being high. Oral vitamin K and total of 4 FFP were administered to bring INR less than 2; however patient's INR remained greater than 2 hence flexible sigmoidoscopy being postponed till Saturday. - IV vitamin K 5mg was administered 08/29 to improve INR for flexible sigmoidoscopy. - INR now 1.84. Patient on schedule for flexible sigmoidoscopy with GI tomorrow. Assessment & Plan (08/29/2024 2:04 PM CDT): - Patient presenting with subacute nausea/vomiting and diarrhea without red- flags otherwise in setting of recently initiated capecitabine - Stool culture negative, Cryptosporidium and giardia negative, rotavirus stool negative, C diff negative, norovirus stool negative, (+) non-covid Coronavirus - CT chest abdomen pelvis 08/22- with proctocolitis, infective versus inflammatory. 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 Discontinued 08/29 - Changed p.r.n. Imodium and Lomotil to scheduled. Tincture of opium was also added p.r.n. -Patient was administered IV fluids. Patient was started on oral rehydration therapy -GI has been consulted for possible scope. Flexible sigmoidoscopy today was postponed again due to INR being high. Oral vitamin K and total of 4 FFP were administered to bring INR less than 2; however patient's INR remained greater than 2 hence flexible sigmoidoscopy being postponed till Saturday. - IV vitamin K will be administered today to improve INR for flexible sigmoidoscopy. Assessment & Plan (08/28/2024 5:10 PM CDT): - Patient presenting with subacute nausea/vomiting and diarrhea without red- flags otherwise in setting of recently initiated capecitabine - Stool culture negative, Cryptosporidium and giardia negative, rotavirus stool negative, C diff negative, norovirus stool negative, (+) non-covid Coronavirus - CT chest abdomen pelvis 08/22- with proctocolitis, infective versus inflammatory. 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 Imodium and Lomotil to scheduled -Patient was administered IV fluids. Patient was started on oral rehydration therapy -GI has been consulted for possible scope. Flexible sigmoidoscopy today was postponed again due to INR being high. Oral vitamin K and total of 4 FFP were administered to bring INR less than 2; however patient's INR remains greater than 2 hence flexible sigmoidoscopy being postponed till Saturday. Assessment & Plan (08/27/2024 6:05 PM CDT): - Patient presenting with subacute nausea/vomiting and diarrhea without red- flags otherwise in setting of recently initiated capecitabine - (+) non-covid Coronavirus - CT chest abdomen pelvis 08/22- with proctocolitis, infective versus inflammatory. 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 Imodium and Lomotil to scheduled -Patient was administered IV fluids. Patient was started on oral rehydration therapy -GI has been consulted for possible scope. Flexible sigmoidoscopy today was postponed due to INR being high. Oral vitamin K administered today to bring INR less than 2 for possible flexible sigmoidoscopy tomorrow by GI. If INR /25 remains greater than 2; plan to administer 1 unit FFP in morning for possible flexible sigmoidoscopy by GI 08/28. NPO midnight. Assessment & Plan (08/26/2024 5:10 PM CDT): - Patient presenting with subacute nausea/vomiting and diarrhea without red- flags otherwise in setting of recently initiated capecitabine - (+) non-covid Coronavirus - CT chest abdomen pelvis 08/22- with proctocolitis, infective versus inflammatory. 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 Imodium and Lomotil to scheduled -Patient was administered IV fluids. Patient was started on oral rehydration therapy -GI has been consulted for possible scope. Recommendations awaited Assessment & Plan (08/25/2024 6:44 PM CDT): - Patient presenting with subacute nausea/vomiting and diarrhea without red- flags otherwise in setting of recently initiated capecitabine - (+) non-covid Coronavirus - CT chest abdomen pelvis 08/22- with proctocolitis, infective versus inflammatory. 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 Imodium to scheduled, continue prn lomotil -Patient was administered IV fluids. Patient was started on oral rehydration therapy Assessment & Plan (08/24/2024 1:31 PM CDT): - Patient presenting with subacute nausea/vomiting and diarrhea without red- flags otherwise in setting of recently initiated capecitabine - ,(+) non-covid Coronavirus, -CT chest abdomen pelvis 08/22- with proctocolitis, infective versus inflammatory. 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 - Given temporal relationship this is most likely related to capecitabine, though will evaluate more fully with CT A/P (needs pre-medication) and stool studies given this is a diagnosis of exclusion - IVFs overnight, antiemetics (hold zyprexa), hold BP meds initially - start imodium if C diff negative CT chest abdomen pelvis 08/22- with proctocolitis, infective versus inflammatory. Discussed with oncology team, most likely colitis secondary to chemotherapy. if diarrhea do not not better in next 24 hours, will consider starting antibiotics Assessment & Plan (08/22/2024 12:03 PM CDT): - Patient presenting with subacute nausea/vomiting and diarrhea without red- flags otherwise in setting of recently initiated capecitabine - Evaluation with BMP with K 3.3, Cr 1.37 (bL 1.0), no abnormality on hepatic values; WBC 5, Hgb 9.7 (bL 11.0), lactate 2.0, INR > 9, RPP (+) non-covid Coronavirus, CXR clear. - Given temporal relationship this is most likely related to capecitabine, though will evaluate more fully with CT A/P (needs pre-medication) and stool studies given this is a diagnosis of exclusion - IVFs overnight, antiemetics (hold zyprexa), hold BP meds initially - start imodium if C diff negative Pending CT chest abdomen pelvis Assessment & Plan (08/21/2024 9:15 PM CDT): - Patient presenting with subacute nausea/vomiting and diarrhea without red- flags otherwise in setting of recently initiated capecitabine - Evaluation with BMP with K 3.3, Cr 1.37 (bL 1.0), no abnormality on hepatic values; WBC 5, Hgb 9.7 (bL 11.0), lactate 2.0, INR > 9, RPP (+) non-covid Coronavirus, CXR clear. - Given temporal relationship this is most likely related to capecitabine, though will evaluate more fully with CT A/P (needs pre-medication) and stool studies given this is a diagnosis of exclusion - IVFs overnight, antiemetics (hold zyprexa), hold BP meds initially - start imodium if C diff negative SYLVIE (obstructive sleep apnea) 08/21/2024 Assessment & Plan (09/07/2024 8:02 PM CDT): - CPAP HS and naps Assessment & Plan (09/06/2024 5:24 PM CDT): - CPAP HS and naps Assessment & Plan (09/05/2024 11:31 AM CDT): - CPAP HS and naps Assessment & Plan (09/04/2024 11:35 AM CDT): - CPAP HS and naps Assessment & Plan (09/03/2024 2:39 PM CDT): - CPAP HS and naps Assessment & Plan (09/02/2024 10:30 AM CDT): - CPAP Assessment & Plan (09/01/2024 2:16 PM CDT): - CPAP Assessment & Plan (08/31/2024 11:36 AM CDT): - CPAP Assessment & Plan (08/30/2024 12:11 PM CDT): - CPAP Assessment & Plan (08/29/2024 1:59 PM CDT): - CPAP Assessment & Plan (08/28/2024 5:10 PM CDT): - CPAP Assessment & Plan (08/27/2024 6:05 PM CDT): - CPAP Assessment & Plan (08/26/2024 5:10 PM CDT): - CPAP Assessment & Plan (08/25/2024 6:44 PM CDT): - CPAP Assessment & Plan (08/24/2024 1:31 PM CDT): - CPAP ordered Assessment & Plan (08/23/2024 12:11 PM CDT): - CPAP ordered Assessment & Plan (08/22/2024 12:03 PM CDT): - CPAP ordered Assessment & Plan (08/21/2024 9:15 PM CDT): - CPAP ordered SSS (sick sinus syndrome) 08/21/2024 T2DM (type 2 diabetes mellitus) 08/21/2024 NIKUNJ (acute kidney injury) 08/21/2024 Assessment & Plan (08/31/2024 11:42 AM CDT): - Cr up > 0.3 in setting of ongoing symptoms per above - Resolved with IVFs - Continue to monitor Is&Os Assessment & Plan (08/30/2024 12:11 PM CDT): - Cr up > 0.3 in setting of ongoing symptoms per above - Resolved with IVFs - Avoid nephrotoxins, renal-dose meds Assessment & Plan (08/29/2024 1:59 PM CDT): - Cr up > 0.3 in setting of ongoing symptoms per above - Improved with IVFs - Avoid nephrotoxins, renal-dose meds Assessment & Plan (08/28/2024 5:10 PM CDT): - Cr up > 0.3 in setting of ongoing symptoms per above - Improved with IVFs - Avoid nephrotoxins, renal-dose meds Assessment & Plan (08/27/2024 6:05 PM CDT): - Cr up > 0.3 in setting of ongoing symptoms per above - Improved with IVFs - Avoid nephrotoxins, renal-dose meds Assessment & Plan (08/26/2024 5:10 PM CDT): - Cr up > 0.3 in setting of ongoing symptoms per above - Improved with IVFs - Avoid nephrotoxins, renal-dose meds Assessment & Plan (08/25/2024 6:44 PM CDT): - Cr up > 0.3 in setting of ongoing symptoms per above - Improved with IVFs - Avoid nephrotoxins, renal-dose meds Assessment & Plan (08/24/2024 1:31 PM CDT): - Cr up > 0.3 in setting of ongoing symptoms per above - Trend with IVFs - Avoid nephrotoxins, renal-dose meds Assessment & Plan (08/23/2024 12:11 PM CDT): - Cr up > 0.3 in setting of ongoing symptoms per above - Trend with IVFs - Avoid nephrotoxins, renal-dose meds Assessment & Plan (08/22/2024 12:03 PM CDT): - Cr up > 0.3 in setting of ongoing symptoms per above - Trend with IVFs - Avoid nephrotoxins, renal-dose meds Assessment & Plan (08/21/2024 9:15 PM CDT): - Cr up > 0.3 in setting of ongoing symptoms per above - Trend with IVFs - Avoid nephrotoxins, renal-dose meds Hypokalemia 08/21/2024 Assessment & Plan (09/07/2024 8:02 PM CDT): From diarrhea, intermittent low-dose diuresis. Replace as needed Assessment & Plan (09/06/2024 5:24 PM CDT): From diarrhea, intermittent low-dose diuresis. Replace as needed Assessment & Plan (09/05/2024 11:31 AM CDT): From diarrhea, intermittent low-dose diuresis. Replace as needed Assessment & Plan (09/04/2024 11:35 AM CDT): From diarrhea, intermittent low-dose diuresis. Replace as needed Assessment & Plan (09/03/2024 2:39 PM CDT): From diarrhea, intermittent low-dose diuresis. Replace as needed Assessment & Plan (09/02/2024 10:30 AM CDT): - Replete as needed Assessment & Plan (09/01/2024 2:16 PM CDT): - Replete as needed Assessment & Plan (08/31/2024 11:36 AM CDT): - Replete as needed Assessment & Plan (08/30/2024 12:11 PM CDT): - Replete as needed Assessment & Plan (08/29/2024 1:59 PM CDT): - Replete as needed Assessment & Plan (08/28/2024 5:10 PM CDT): - Replete as needed Assessment & Plan (08/27/2024 6:05 PM CDT): - Replete as needed Assessment & Plan (08/26/2024 5:10 PM CDT): - Replete as needed Assessment & Plan (08/25/2024 6:44 PM CDT): - Replete as needed Assessment & Plan (08/24/2024 1:31 PM CDT): - Replete as needed Assessment & Plan (08/23/2024 12:11 PM CDT): - Replete as needed Assessment & Plan (08/22/2024 12:03 PM CDT): - Replete as needed Assessment & Plan (08/21/2024 9:15 PM CDT): - Replete as needed Elevated INR 08/21/2024 Assessment & Plan (09/07/2024 8:02 PM CDT): - Secondary to nausea/vomiting/diarhea while on warfarin. INR > 9 y - s/p Vit K in [facility]. S/p vitamin K 2.5 mg oral once 08/22, s/p Vit K 10 IV 08/23 - INR 1.63 08/24-- Resumed warfarin home dose 2 mg daily (08/24-09/07). Switch to warfarin 1 mg daily as the patient jumped to therapeutic range quickly - Recheck as outpatient with Dr. Hart's office on 09/14 Assessment & Plan (09/06/2024 5:24 PM CDT): - Secondary to nausea/vomiting/diarhea while on warfarin. INR > 9 y - s/p Vit K in [facility]. S/p vitamin K 2.5 mg oral once 08/22, s/p Vit K 10 IV 08/23 - INR 1.63 08/24-- Resumed warfarin home dose 2 mg daily (08/24-p) - Daily INR Assessment & Plan (09/05/2024 11:31 AM CDT): - Secondary to nausea/vomiting/diarhea while on warfarin. INR > 9 y - s/p Vit K in [facility]. S/p vitamin K 2.5 mg oral once 08/22, s/p Vit K 10 IV 08/23 - INR 1.63 08/24-- Resumed warfarin home dose 2 mg daily (08/24-p) - Daily INR Assessment & Plan (09/04/2024 11:35 AM CDT): - Secondary to nausea/vomiting/diarhea while on warfarin. INR > 9 y - s/p Vit K in [facility]. S/p vitamin K 2.5 mg oral once 08/22, s/p Vit K 10 IV 08/23 - INR 1.63 08/24-- Resumed warfarin home dose 2 mg daily (08/24-p) - Daily INR Assessment & Plan (09/03/2024 2:39 PM CDT): - Secondary to nausea/vomiting/diarhea while on warfarin. INR > 9 y - s/p Vit K in [facility]. S/p vitamin K 2.5 mg oral once 08/22, s/p Vit K 10 IV 08/23 - INR 1.63 08/24-- Resumed warfarin home dose 2 mg daily (08/24-p) - Daily INR Assessment & Plan (09/02/2024 10:30 AM CDT): - Secondary to nausea/vomiting/diarhea while on warfarin. INR > 9 y - s/p Vit K in [facility]. S/p vitamin K 2.5 mg oral once 08/22, s/p Vit K 10 IV 08/23 - INR 1.63 08/24-- Resumed warfarin home dose 2 mg daily (08/24-p) - Daily INR Assessment & Plan (09/01/2024 4:08 PM CDT): - Secondary to nausea/vomiting/diarhea while on warfarin. INR > 9 y - s/p Vit K in [facility]. S/p vitamin K 2.5 mg oral once 08/22, s/p Vit K 10 IV 08/23 - INR 1.63 08/24-- Resumed warfarin home dose 2 mg daily (08/24-p) - Daily INR Assessment & Plan (08/31/2024 11:42 AM CDT): - Secondary to nausea/vomiting/diarhea while on warfarin INR > 9 y - s/p Vit K in [facility] S/p vitamin K 2.5 mg oral once 08/22, s/p Vit K 10 IV 08/23 INR 1.63 08/24-- Resumed warfarin home dose 2 mg daily (08/24-p) Daily INR See atrial fibrillation Assessment & Plan (08/30/2024 12:11 PM CDT): - Secondary to nausea/vomiting/diarhea while on warfarin INR > 9 y - s/p Vit K in [facility] S/p vitamin K 2.5 mg oral once 08/22, s/p Vit K 10 IV 08/23 INR 1.63 08/24-- Resumed warfarin home dose 2 mg daily (08/24-p) Daily INR Assessment & Plan (08/29/2024 1:59 PM CDT): - Secondary to nausea/vomiting/diarhea while on warfarin INR > 9 y - s/p Vit K in [facility] S/p vitamin K 2.5 mg oral once 08/22, s/p Vit K 10 IV 08/23 INR 1.63 08/24-- Resumed warfarin home dose 2 mg daily (08/24-p) Daily INR Assessment & Plan (08/28/2024 5:10 PM CDT): - Secondary to nausea/vomiting/diarhea while on warfarin INR > 9 y - s/p Vit K in [facility] S/p vitamin K 2.5 mg oral once 08/22, s/p Vit K 10 IV 08/23 INR 1.63 08/24-- Resumed warfarin home dose 2 mg daily (08/24-p) Daily INR Assessment & Plan (08/27/2024 6:05 PM CDT): - Secondary to nausea/vomiting/diarhea while on warfarin INR > 9 y - s/p Vit K in [facility] S/p vitamin K 2.5 mg oral once 08/22, s/p Vit K 10 IV 08/23 INR 1.63 08/24-- Resumed warfarin home dose 2 mg daily (08/24-p) Daily INR Assessment & Plan (08/26/2024 5:10 PM CDT): - Secondary to nausea/vomiting/diarhea while on warfarin INR > 9 y - s/p Vit K in [facility] S/p vitamin K 2.5 mg oral once 08/22, s/p Vit K 10 IV 08/23 INR 1.63 08/24-- Resumed warfarin home dose 2 mg daily (08/24-p) Daily INR Assessment & Plan (08/25/2024 6:44 PM CDT): - Secondary to nausea/vomiting/diarhea while on warfarin INR > 9 y - s/p Vit K in [facility] S/p vitamin K 2.5 mg oral once 08/22, s/p Vit K 10 IV 08/23 INR 1.63 08/24-- Resumed warfarin home dose 2 mg daily (08/24-p) Daily INR Assessment & Plan (08/24/2024 1:31 PM CDT): - Secondary to nausea/vomiting/diarhea while on warfarin INR > 9 y - s/p Vit K in [facility] S/p vitamin K 2.5 mg oral once 08/22, s/p Vit K 10 IV 08/23 INR 1.63 08/24-- Resumed warfarin home dose 2 mg daily (08/24-p) Assessment & Plan (08/23/2024 12:11 PM CDT): - Secondary to nausea/vomiting/diarrhea while on warfarin INR > 9 y - s/p Vit K in [facility] - , continue to hold warfarin, bleeding precautions ordered Ordered vitamin K 2.5 mg oral once 08/22 INR more than 9 today, still having poor oral intake with diarrhea, will give IV vitamin K 10 mg once 08/23 Assessment & Plan (08/22/2024 12:03 PM CDT): - Secondary to nausea/vomiting/diarrhea while on warfarin INR > 9 y - s/p Vit K in [facility] - , continue to hold warfarin, bleeding precautions ordered Ordered vitamin K 2.5 mg oral once 08/22 Oral intake encouraged. Assessment & Plan (08/21/2024 9:15 PM CDT): - INR > 9 with hematuria noted recently - s/p Vit K in [facility] - Trend INR in AM, continue to hold warfarin, bleeding precautions ordered Decreased oral intake 08/21/2024 Assessment & Plan (09/07/2024 8:02 PM CDT): Ongoing weight loss with limited PO intake - Calorie counting Assessment & Plan (09/06/2024 5:24 PM CDT): Ongoing weight loss with limited PO intake - Calorie counting Assessment & Plan (09/05/2024 11:31 AM CDT): Ongoing weight loss with limited PO intake - Calorie counting Assessment & Plan (09/04/2024 11:35 AM CDT): Ongoing weight loss with limited PO intake - Calorie counting Assessment & Plan (09/03/2024 2:39 PM CDT): Ongoing weight loss with limited PO intake - Calorie counting Assessment & Plan (09/02/2024 10:30 AM CDT): Ongoing weight loss with limited PO intake - Calorie counting Assessment & Plan (09/01/2024 4:08 PM CDT): Ongoing weight loss with limited PO intake - Calorie counting Assessment & Plan (08/31/2024 11:36 AM CDT): - Ongoing weight loss with limited PO intake - CT per above - Calorie count with RD Assessment & Plan (08/30/2024 12:11 PM CDT): - Ongoing weight loss with limited PO intake - CT per above - Calorie count with RD Assessment & Plan (08/29/2024 1:59 PM CDT): - Ongoing weight loss with limited PO intake - CT per above - Calorie count with RD Assessment & Plan (08/28/2024 5:10 PM CDT): - Ongoing weight loss with limited PO intake - CT per above - Calorie count with RD Assessment & Plan (08/27/2024 6:05 PM CDT): - Ongoing weight loss with limited PO intake - CT per above - Calorie count with RD Assessment & Plan (08/26/2024 5:10 PM CDT): - Ongoing weight loss with limited PO intake - CT per above - Calorie count with RD Assessment & Plan (08/25/2024 6:44 PM CDT): - Ongoing weight loss with limited PO intake - CT per above - Calorie count with RD Assessment & Plan (08/24/2024 1:31 PM CDT): - Ongoing weight loss with limited PO intake - CT per above - Calorie count with RD Assessment & Plan (08/23/2024 12:11 PM CDT): - Ongoing weight loss with limited PO intake - CT per above - Calorie count with RD Assessment & Plan (08/22/2024 12:03 PM CDT): - Ongoing weight loss with limited PO intake - CT per above - Calorie count with RD Assessment & Plan (08/21/2024 9:15 PM CDT): - Ongoing weight loss with limited PO intake - CT per above - Calorie count with RD Hematuria 08/21/2024 Assessment & Plan (08/31/2024 11:36 AM CDT): - Suspecting secondary to high INR, Resolved Assessment & Plan (08/30/2024 12:11 PM CDT): - Suspecting secondary to high INR, Resolved Assessment & Plan (08/29/2024 1:59 PM CDT): - Suspecting secondary to high INR, Resolved Assessment & Plan (08/28/2024 5:10 PM CDT): - Suspecting secondary to high INR, Resolved Assessment & Plan (08/27/2024 6:05 PM CDT): - Suspecting secondary to high INR, Resolved Assessment & Plan (08/26/2024 5:10 PM CDT): - Suspecting secondary to high INR, Resolved Assessment & Plan (08/25/2024 6:44 PM CDT): - Suspecting secondary to high INR, Resolved Assessment & Plan (08/24/2024 1:31 PM CDT): - Suspecting secondary to high INR, Resolved - Assessment & Plan (08/23/2024 12:11 PM CDT): - Check UA/micro with reflex to culture - Presume will improve with declining INR Assessment & Plan (08/22/2024 12:03 PM CDT): - Check UA/micro with reflex to culture - Presume will improve with declining INR Assessment & Plan (08/21/2024 9:15 PM CDT): - Check UA/micro with reflex to culture - Presume will improve with declining INR Diarrhea 08/21/2024 Assessment & Plan (08/31/2024 11:36 AM CDT): See nausea vomiting and diarrhea Assessment & Plan (08/30/2024 12:11 PM CDT): See nausea vomiting and diarrhea Assessment & Plan (08/29/2024 1:59 PM CDT): See nausea vomiting and diarrhea Assessment & Plan (08/28/2024 5:10 PM CDT): See nausea vomiting and diarrhea Assessment & Plan (08/27/2024 6:05 PM CDT): See nausea vomiting and diarrhea Nonrheumatic mitral valve regurgitation 06/22/19 Encounter for monitoring sotalol therapy 025 Assessment & Plan (06/09/2024 8:50 PM CLERK GENERAL): -Remains compliant sotalol -increase to 80 mg b.i.d. to help with atrial arrhythmia burden -EKG today does not demonstrate any changes that would prohibit the use of sotalol -while the patient remains on this medication he will require an EKG every 6 months Adjustment and management of cardiac pacemaker 0 05/27/2024 Presence of heart assist device 05/13/2024 Liver transplant candidate 03/31/2024 Assessment & Plan (09/07/2024 8:02 PM CDT): - Active on transplant list, established with hepatology. Liver transplant team indicated that patient needs to be full code in order to remain on transplant list before/during/after transplant. Code status was readdressed by liver team and patient is on full code Assessment & Plan (09/06/2024 5:24 PM CDT): - Active on transplant list, established with hepatology. Liver transplant team indicated that patient needs to be full code in order to remain on transplant list before/during/after transplant. Code status was readdressed by liver team and patient is on full code Assessment & Plan (09/05/2024 11:31 AM CDT): - Active on transplant list, established with hepatology. Liver transplant team indicated that patient needs to be full code in order to remain on transplant list before/during/after transplant. Code status was readdressed by liver team and patient is on full code Assessment & Plan (09/04/2024 11:35 AM CDT): - Active on transplant list, established with hepatology. Liver transplant team indicated that patient needs to be full code in order to remain on transplant list before/during/after transplant. Code status was readdressed by liver team and patient is on full code Assessment & Plan (09/03/2024 2:39 PM CDT): - Active on transplant list, established with hepatology. Liver transplant team indicated that patient needs to be full code in order to remain on transplant list before/during/after transplant. Code status was readdressed by liver team and patient is on full code Assessment & Plan (09/02/2024 10:30 AM CDT): - Active on transplant list, established with hepatology. Liver transplant team indicated that patient needs to be full code in order to remain on transplant list before/during/after transplant. Code status was readdressed by liver team and patient is on full code Assessment & Plan (09/01/2024 4:08 PM CDT): - Active on transplant list, established with hepatology. Liver transplant team indicated that patient needs to be full code in order to remain on transplant list before/during/after transplant. Code status was readdressed by liver team and patient is on full code Assessment & Plan (08/31/2024 11:36 AM CDT): - Active on transplant list, established with hepatology. Liver transplant team reached out to us indicating that patient needs to be full code in order to remain on transplant list before/during/after transplant. Code status was readdressed by liver team and patient is full code now. Assessment & Plan (08/30/2024 12:11 PM CDT): - Active on transplant list, established with hepatology. Liver transplant team reached out to us indicating that patient needs to be full code in order to remain on transplant list before/during/after transplant. Code status was readdressed by liver team and patient is full code now. Assessment & Plan (08/29/2024 1:59 PM CDT): - Active on transplant list, established with hepatology. Liver transplant team reached out to us indicating that patient needs to be full code in order to remain on transplant list before/during/after transplant. Code status was readdressed by liver team and patient is full code now. Assessment & Plan (08/28/2024 5:10 PM CDT): - Active on transplant list, established with hepatology Assessment & Plan (08/27/2024 6:05 PM CDT): - Active on transplant list, established with hepatology Assessment & Plan (08/26/2024 5:10 PM CDT): - Active on transplant list, established with hepatology Assessment & Plan (08/25/2024 6:44 PM CDT): - Active on transplant list, established with hepatology Assessment & Plan (08/24/2024 1:31 PM CDT): - Active on transplant list, established with hepatology Assessment & Plan (08/23/2024 12:11 PM CDT): - Active on transplant list, established with hepatology Assessment & Plan (08/22/2024 12:03 PM CDT): - Active on transplant list, established with hepatology Assessment & Plan (08/21/2024 9:15 PM CDT): - Active on transplant list, established with hepatology Anemia 03/16/2024 Assessment & Plan (08/31/2024 11:36 AM CDT): - Hgb 9.7, down from baseline 11 in setting of capecitabine - Hgb goal > 7 Assessment & Plan (08/30/2024 12:11 PM CDT): - Hgb 9.7, down from baseline 11 in setting of capecitabine - Hgb goal > 7 Assessment & Plan (08/29/2024 1:59 PM CDT): - Hgb 9.7, down from baseline 11 in setting of capecitabine - Hgb goal > 7 Assessment & Plan (08/28/2024 5:10 PM CDT): - Hgb 9.7, down from baseline 11 in setting of capecitabine - Hgb goal > 7 Assessment & Plan (08/27/2024 6:05 PM CDT): - Hgb 9.7, down from baseline 11 in setting of capecitabine - Hgb goal > 7 Assessment & Plan (08/26/2024 5:10 PM CDT): - Hgb 9.7, down from baseline 11 in setting of capecitabine - Hgb goal > 7 Assessment & Plan (08/25/2024 6:44 PM CDT): - Hgb 9.7, down from baseline 11 in setting of capecitabine - Hgb goal > 7 Assessment & Plan (08/24/2024 1:31 PM CDT): - Hgb 9.7, down from baseline 11 in setting of capecitabine - Hgb > 7 Assessment & Plan (08/23/2024 12:11 PM CDT): - Hgb 9.7, down from baseline 11 in setting of capecitabine - Hgb > 7 Assessment & Plan (08/22/2024 12:03 PM CDT): - Hgb 9.7, down from baseline 11 in setting of capecitabine - Hgb > 7 Assessment & Plan (08/21/2024 9:15 PM CDT): - Hgb 9.7, down from baseline 11 in setting of capecitabine - Hgb > 7 Assessment & Plan (03/16/2024 5:32 PM CLERK GENERAL): - H/H- 8.9 Monitor CBC closely Lactic acidosis 03/15/2024 Assessment & Plan (03/16/2024 5:29 PM CLERK GENERAL): Lactate 4 in [facility]. Reports normal PO intake. Improved to 2.3 after 1L IVF. Unclear etiology. Lactate lateralized on a.m. labs Hypomagnesemia 03/10/2024 Hypophosphatemia 02/11/2024 Dehydration 02/10/2024 Mood disorder 01/18/2024 Assessment & Plan (01/18/2024 8:13 PM CDT): Continue home citalopram Shortness of breath 01/18/2024 Assessment & Plan (03/16/2024 5:31 PM CLERK GENERAL): P/w SOB, fatigue, generalized weakness. Similar episodes in the past w/ unremarkable workup. In [facility], Tmax 99.4, satting well on RA, BP stable. Lactate 4 -> 2.3. Mag 1.4, K 3.3. WBC 3.7. TSH wnl. Cortisol wnl. Trop neg. RVP neg. UA non-infectious. BNP 748 (prior >1k). EKG no ischemic changes, paced rhythm. CXR clear. Recent TTE w/ normal LV function , G1DD. Unclear etiology - possibly from cancer, current chemotherapy, deconditioning. Less likely infection, PE, arrhythmia, HF. Also has MR, but no plans for MV replacement; not likely that MR is the cause of symptoms per cardio-onc c/s in January. -s/p 1L IVF w/ resolution of sxs - NT-BNP-662 - Blood culture negative to date -given cefe x1 in [facility]; hold off on further abx for now given clinical stability, lack of clear infectious source, not neutropenic - Stable on telemetry, croup sided cardio oncology, the patient has prior history of chronotropic incompetence but is still should not be a cause of shortness of breaths -replete lytes prn - Remains on room air upon discharge Assessment & Plan (01/21/2024 1:27 PM CDT): Presented from oncology clinic with chief complaint of SOB. Endorses feeling winded with normal activities for the last day, feeling fatigued for the past few days. Denies any fevers, chills, cough, chest pain or any other symptoms. CMP largely within normal limits, CBC with WBC 3.9, ANC 3.1, hemoglobin 10.7, platelets 147, D-dimer 495, NT pro BNP 697, HS troponin negative x2, lactic 2.0-1.9, blood cultures obtained, RVP panel negative. Chest x-ray with mild streaky left basilar atelectasis otherwise no acute findings. No oxygen requirement. Direct admitted for CTPE to rule out PE given held eliquis for two days post stent procedure this week - CT PE ordered (pretreated with prednisone 50mg x3 and benadryl 1 hr prior), with no PE but possible small PNA, started cefe 01/18-01/19 and received 1st dose of filgastrim, switched to Augmentin 01/19 to complete 5-day course - Blood cultures with NGTD - TTE with thickened mitral valve with likely severe posterior leaflet prolapse and moderate MR, MR was also noted on prior echoes. - Appreciate cardiology recs regarding MR - Likely multifactorial, from cancer, current chemotherapy, deconditioning. DC home with home health PT Fever 12/17/2023 Assessment & Plan (12/18/2023 1:05 PM CDT): Patient presenting with fevers up to 101.2F at home. No localizing infectious symptoms. Patient afebrile, HDS. Labs notable for WBC 3.5, UA noninfectious. CXR clear. - 2 days no fever, unclear source of fever. Spoke with Dr. Contreras - will schedule him for outpatient chemotherapy - d/c abx Mood disorder 12/17/2023 Assessment & Plan (12/17/2023 4:49 AM CDT): - continue home celexa Extremity pain 12/17/2023 Assessment & Plan (12/17/2023 5:00 AM CDT): Patient endorsing pain in his extremities for the past few days. He reports this started following his first chemo treatment. He indicates pain is mostly in b/l hands and feet, but does extend into forearms and calves at times. Pain is described as stinging, and he feels it is deep in his muscles. No weakness or sensory changes. K 3.5 on admission. - check Mg, TSH - continue to monitor Fever in adult 12/17/2023 Moderate aortic regurgitation 12/06/2023 Assessment & Plan (12/06/2023 11:03 AM CDT): Not appreciated on his examination. Unlikely to ever be an issue for him. Reassurance. Bacteremia due to Klebsiella pneumoniae 12/01/19 Assessment & Plan (12/03/2023 9:37 AM CDT): Presenting with 1 day of fatigue, FERRARA, rigors, low grade fever. Bcx from 11/30/23 growing klebsiella in 2/[address] a/p and CXR unrevealing for source. Likely source was potential translocation from ERCP on 11/14. No GI or sx (UA bland). He was treated with cefepime 11/30-present, will finish treatment with PO abx for 7d course 11/30-12/06 given rapid improvement. 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 Flowers, s/p chemo/radiation, active on transplant list and on maintenance capecitabine - Appreciate Med Onc recs Assessment & Plan (09/06/2024 5:24 PM CDT): Established care with Dr. Flowers s/p chemo/radiation, active on transplant list and on maintenance capecitabine - Appreciate Med Onc recs Assessment & Plan (09/05/2024 11:31 AM CDT): Established care with Dr. Flowers s/p chemo/radiation, active on transplant list and on maintenance capecitabine - Appreciate Med Onc recs Assessment & Plan (09/04/2024 11:35 AM CDT): Established care with Dr. Flowers s/p chemo/radiation, active on transplant list and on maintenance capecitabine - Appreciate Med Onc recs Assessment & Plan (09/03/2024 2:39 PM CDT): Established care with Dr. Flowers s/p chemo/radiation, active on transplant list and on maintenance capecitabine - Appreciate Med Onc recs Assessment & Plan (09/02/2024 10:30 AM CDT): Established care with Dr. Flowers s/p chemo/radiation, active on transplant list and on maintenance capecitabine - Appreciate Med Onc recs Assessment & Plan (09/01/2024 4:08 PM CDT): Established care with Dr. Flowers s/p chemo/radiation, active on transplant list and on maintenance capecitabine - Appreciate Med Onc recs Assessment & Plan (08/31/2024 11:36 AM CDT): - Established with Dr. Flowers, s/p chemo/radiation, active on transplant list and on maintenance capecitabine - Oncology consulted. Following Assessment & Plan (08/30/2024 12:11 PM CDT): - Established with Dr. Flowers, s/p chemo/radiation, active on transplant list and on maintenance capecitabine - Oncology consulted. Assessment & Plan (08/29/2024 1:59 PM CDT): - Established with Dr. Flowers, s/p chemo/radiation, active on transplant list and on maintenance capecitabine - Oncology consulted. Assessment & Plan (08/28/2024 5:10 PM CDT): - Established with Dr. Flowers, s/p chemo/radiation, active on transplant list and on maintenance capecitabine - Oncology consulted. Assessment & Plan (08/27/2024 6:05 PM CDT): - Established with Dr. Flowers, s/p chemo/radiation, active on transplant list and on maintenance capecitabine - Oncology consulted. Assessment & Plan (08/26/2024 5:10 PM CDT): - Established with Dr. Flowers, s/p chemo/radiation, active on transplant list and on maintenance capecitabine - Oncology consulted. Assessment & Plan (08/25/2024 6:44 PM CDT): - Established with Dr. Flowers, s/p chemo/radiation, active on transplant list and on maintenance capecitabine - Oncology consulted. Assessment & Plan (08/24/2024 1:31 PM CDT): - Established with Dr. Flowers, s/p chemo/radiation, active on transplant list and on maintenance capecitabine - Oncology consult Assessment & Plan (08/23/2024 12:11 PM CDT): - Established with Dr. Flowers, s/p chemo/radiation, active on transplant list and on maintenance capecitabine - [facility] consult discussion regarding continuatio of capecitabine Assessment & Plan (08/22/2024 12:03 PM CDT): - Established with Dr. Flowers, s/p chemo/radiation, active on transplant list and on maintenance capecitabine - [facility] consult discussion regarding continuatio of capecitabine Assessment & Plan (08/21/2024 9:15 PM CDT): - Established with Dr. Flowers, s/p chemo/radiation, active on transplant list and on maintenance capecitabine - [facility] consult discussion regarding continuatio of capecitabine Assessment & Plan (03/16/2024 5:32 PM CLERK GENERAL): Dx 11/2023 after presenting with jaundice in October. -CT A/P 11/14/23 w/ infiltrating mass at the confluence of the left and right hepatic ducts, extending to involve the 2nd order bile ducts on both L&R encasing and narrowing the left portal vein, encasing the left hepatic artery, and abutting the proximal right portal vein. 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 Brushings obtained for cytology. - CT Chest 11/15/23 chest does not show evidence of distant metastatic disease. - Discussed at TB: not resectable; not currently transplant candidate > initiated on gemcitabine + cisplatin + nab-paclitaxel with C1D1 12/10/23 (last with C5D1 on 03/10/24 >>Due for C5D8 on 03/17/24 -Discussed at TB 03/12> planning for endoscopic lymph node evaluation, diagnostic laparoscopy, and evaluation for possible liver transplant on 03/18 - Plan for further follow up with [facility] Onc as outpatient Assessment & Plan (01/21/2024 1:26 PM CDT): Dx 11/2023 iso high bilirubin and LFTs, painless jaundice. Size and extent of hilar lesion currently outside of transplant criteria. ERCP 11/15/23 found single severe malignant biliary stricture s/p sphincterotomy, 3 plastic stents placed into hepatic ducts and a protective pancreatic duct stent. After stent placement, prior jaundice resolved. Started C1D1 gemcitabine + cisplatin + nab-paclitaxel on 12/10/23, last treatment was D8C2 of Paclitaxel, Cisplatin, Gemcitabine on 01/14/24. Had biliary stent removal/exchange on 01/12 - Continue follow up outpatient with Dr. Contreras Assessment & Plan (12/18/2023 1:04 PM CDT): Follows with Dr. Contreras. Dx 11/2023 iso high bilirubin and LFTs, painless jaundice. Size and extent of hilar lesion currently outside of transplant criteria. ERCP 11/15/23 found single severe malignant biliary stricture s/p sphincterotomy, 3 plastic stents placed into hepatic ducts and a protective pancreatic duct stent. After stent placement, prior jaundice resolved. Started C1D1 gemcitabine + cisplatin + nab-paclitaxel on 12/10/23. - LFTs improved from prior and WNL on admission, imaging not pursued - next ERCP scheduled 01/12 for stent exchange - spoke with Dr. Contreras- will get him scheduled outpatient Assessment & Plan (12/02/2023 9:52 AM CDT): Follows with Dr. Flowers. Dx 11/2023 in setting of high bili and LFTs, painless jaundice. Not resectable. Planned for port 12/01 and start [place]+Cis+Abrax after, which will be postponed for 1wk due to GNR bacteremia. His port placement will be rescheduled and oncology team will reach out to patient with new plan. Insomnia 11/20/2023 Elevated LFTs 11/19/2023 Obstructive jaundice due to cancer 11/19/2023 Assessment & Plan (12/03/2023 9:37 AM CDT): Presented in November with painless jaundice and high bili/LFTs. ERCP on 11/14 found single severe malignant bilary stricture, s/p sphincterotomy, 3 plastic stents placed into hepatic ducts and a protective pancreatic duct stent (pancreatic duct stent was not seen on CT a/p 11/29). After stent placement, prior jaundice and itchiness have resolved. CT a/p showed known large cholangiocarcinoma, 3 known biliary ductal stents with decreased intrahepatic BDD. His biliary labs continue to improve. He is due for ERCP and biliary stent exchange 01/13/24. -Planning for pancreatic duct stent removal w/ biliary today Jaundice 11/13/2023 S/P ablation of atrial fibrillation 10/27/2023 Meniere's disease 10/24/2023 Assessment & Plan (03/15/2024 9:54 PM CLERK GENERAL): -cont betahistine 24mg tid (home supply) Assessment & Plan (01/21/2024 1:20 PM CDT): Continue home med betahistine tid, meclizine prn Assessment & Plan (12/17/2023 4:49 AM CDT): - continue home betahistine (patient's home supply) Assessment & Plan (12/02/2023 9:48 AM CDT): Home betahistine 24mg tid (home supply) continued. Acute COVID-19 09/30/2023 Osteopenia 04/24/2023 Cardiac pacemaker in situ 02/26/2023 Assessment & Plan (06/09/2024 8:48 PM CLERK GENERAL): -Status post dual-chamber pacemaker placement -Device interrogation today reveals 80% RA pacing and 3.3% RV pacing. Atrial arrhythmia burden is 2.8% although he was had 18 episodes of atrial fibrillation. The longest occurring on the lasting 1 day 20 hours and 30 minutes. -The patient's device was interrogated today and found to be functioning appropriately. No significant programming changes were made at this time. The patient will continue to be followed through the [facility] remotely and with in office device interrogations as needed. Constipation 11/02/2022 Cataract 10/10/2022 Dizziness and giddiness 10/05/2022 Near syncope 09/11/2022 Atrial fibrillation 08/08/2022 Assessment & Plan (09/07/2024 8:02 PM CDT): - Cont sotalol - Warfarin. - Patient is on warfarin for CVA prophylaxis due as he is on transplant list. Was on DOAC at some point before. - Warfarin briefly held for GI procedure, then resumed. Warfarin dosing as directed by cardio oncology Assessment & Plan (09/06/2024 5:24 PM CDT): - Cont sotalol - Warfarin - Patient is on warfarin for CVA prophylaxis due as he is on transplant list. Was on DOAC at some point before. - Warfarin briefly held for GI procedure, then resumed. F/u warfarin dosing as per transplant liver team Assessment & Plan (09/05/2024 11:31 AM CDT): - Cont sotalol - Warfarin - Patient is on warfarin for CVA prophylaxis due as he is on transplant list. Was on DOAC at some point before. - Warfarin briefly held for GI procedure, then resumed. F/u warfarin dosing as per transplant liver team Assessment & Plan (09/04/2024 11:35 AM CDT): - Cont sotalol - Warfarin - Patient is on warfarin for CVA prophylaxis due as he is on transplant list. Was on DOAC at some point before. - Warfarin briefly held for GI procedure, then resumed. F/u warfarin dosing as per transplant liver team Assessment & Plan (09/03/2024 2:39 PM CDT): - Cont sotalol - Warfarin - Patient is on warfarin for CVA prophylaxis due as he is on transplant list. Was on DOAC at some point before. - Warfarin briefly held for GI procedure, then resumed. F/u warfarin dosing as per transplant liver team Assessment & Plan (09/02/2024 10:30 AM CDT): - Cont sotalol - Warfarin - Patient is on warfarin for CVA prophylaxis due as he is on transplant list. Was on DOAC at some point before. - Warfarin briefly held for GI procedure, then resumed. F/u warfarin dosing as per transplant liver team Assessment & Plan (09/01/2024 4:08 PM CDT): - Cont sotalol - Warfarin - Patient is on warfarin for CVA prophylaxis due as he is on transplant list. Was on DOAC at some point before. - Warfarin briefly held for GI procedure, then resumed. F/u warfarin dosing as per transplant liver team Assessment & Plan (08/31/2024 11:42 AM CDT): - Cont sotalol - Warfarin Patient is on warfarin for CVA prophylaxis due as he is on transplant list. Was on DOAC at some point before. Warfarin currently on hold for GI procedure. We will be resumed after GI procedure; regarding warfarin dosing as per transplant liver team ?could try lower dosing (such as 1 mg daily or even three times a week? (to be discussed with pharmacy) Assessment & Plan (08/30/2024 12:11 PM CDT): - Cont sotalol - Warfarin Patient is on warfarin for CVA prophylaxis due as he is on transplant list. Was on DOAC at some point before. Warfarin currently on hold for GI procedure Assessment & Plan (08/29/2024 1:59 PM CDT): - Cont sotalol - Warfarin Patient is on warfarin for CVA prophylaxis due as he is on transplant list. Was on DOAC at some point before. Warfarin currently on hold for GI procedure Assessment & Plan (08/28/2024 5:10 PM CDT): - Cont sotalol - Warfarin Patient is on warfarin for CVA prophylaxis due as he is on transplant list. Was on DOAC at some point before. Warfarin currently on hold for GI procedure Assessment & Plan (08/27/2024 6:05 PM CDT): - Cont sotalol - Warfarin Patient is on warfarin for CVA prophylaxis due as he is on transplant list. Was on DOAC at some point before. Warfarin currently on hold for GI procedure Assessment & Plan (08/26/2024 5:10 PM CDT): - Cont sotalol - Warfarin Patient is on warfarin for CVA prophylaxis due as he is on transplant list. Was on DOAC at some point before. Assessment & Plan (08/25/2024 6:44 PM CDT): - Cont sotalol - Warfarin Patient is on warfarin for CVA prophylaxis due as he is on transplant list. Was on DOAC at some point before. Assessment & Plan (08/24/2024 1:31 PM CDT): - Cont sotalol - Warfarin Patient is on warfarin for CVA prophylaxis due as he is on transplant list. Was on DOAC at some point before. Assessment & Plan (08/23/2024 12:11 PM CDT): - Cont sotalol - hold warfarin with elevated INR per above Patient is on warfarin for CVA prophylaxis due as he is on transplant list. Was on DOAC at some point before. Assessment & Plan (08/22/2024 12:03 PM CDT): - Cont sotalol - hold warfarin with elevated INR per above Patient is on warfarin for CVA prophylaxis due as he is on transplant list. Was on DOAC at some point before. Assessment & Plan (08/21/2024 9:15 PM CDT): - Cont sotalol - hold warfarin with elevated INR per above Assessment & Plan (06/09/2024 8:49 PM CLERK GENERAL): -Status post radiofrequency catheter ablation with Dr. Richey -Remains compliant on apixaban and sotalol -Noted to have a sustained episode recently causing symptoms -Increase sotalol to 80 mg b.i.d. -Obtain an EKG after 3 doses to evaluate QT interval -Follow up in 6 months for 12 lead EKG, device interrogation, and clinic visit Assessment & Plan (03/15/2024 10:22 PM CLERK GENERAL): S/p PVI, CTI ablation 09/09/23. Follows w/ cardio onc. -cont sotalol -hold Eliquis starting 11/11 AM prior to planned outpatient ERCP 03/18 Assessment & Plan (01/21/2024 1:32 PM CDT): S/p ablation. Had held eliquis for a few days as instructed prior to ERCP 01/12. Home regimen eliquis, metop succinate 50mg daily - Continue eliquis, metoprolol was reduced to 12.5mg daily. HR controlled, 60s. Appreciate Cards-Onc recs Assessment & Plan (01/01/2024 10:14 AM CDT): S/p PVI. Some PAF during blanking. Counseled pt regarding blanking period. No additional interventions recommended for now given controlled rates and active chemotherapy. --Continue apixaban 5 mg BID --Continue metoprolol XL 50 mg daily Assessment & Plan (12/17/2023 4:49 AM CDT): S/p ablation in September, but still had Afib after. - continue home metoprolol and eliquis Assessment & Plan (12/06/2023 11:02 AM CDT): Rhythm currently regular. Feeling reasonably well. Continue Eliquis. Assessment & Plan (12/02/2023 9:48 AM CDT): S/p ablation in September, but still had afib after. Home metop continued, eliquis held and can resume at discharge. Assessment & Plan (08/13/2023 8:34 PM CDT): Highly symptomatic, with low but increasing arrhythmia burden. Recent prolonged episode impeded ability to function. I counseled the patient regarding management options for symptomatic paroxysmal atrial fibrillation. These include rate control/expectant therapy, antiarrhythmic drug therapy or catheter ablation. After review of the relative merits of each approach, the patient expressed preference for ablation. I reviewed the procedural steps, risks/benefits, recovery and expected outcomes for AF ablation. I discussed the possibility of requiring a second procedure in order to achieve an optimal outcome.I emphasized the importance of uninterrupted anticoagulation for at least 3 months following ablation, regardless of baseline thromboembolic risk. After answering all questions, the patient elected to proceed with ablation. --Atrial fibrillation ablation w/anesthesia --Continue apixaban 5 mg BID. Hold starting the evening prior to procedure. Pt will follow-up 1 month post-ablation in the AF clinic with a nurse practitioner. Follow-up with me 3 months post-ablation. Assessment & Plan (08/08/2022 10:31 AM CDT): Asymptomatic, device-detected AF. Low burden. [id number] = 2. --Continue apixaban 5 mg BID Lightheadedness 03/12/2022 Small bowel obstruction 12/23/2021 Sinus bradycardia 05/29/2021 Sick sinus syndrome 05/19/2021 Overview (05/19/2021): Added automatically from request for surgery [id number] Assessment & Plan (03/15/2024 9:53 PM CLERK GENERAL): -s/p PPM Assessment & Plan (01/21/2024 1:23 PM CDT): S/p pacemaker Appropriately working per inpatient evaluation - Continue outpatient follow up with patient's EP Assessment & Plan (01/01/2024 10:14 AM CDT): S/p dual chamber pacemaker. Excellent device function. --Continue remote device f/u quarterly Assessment & Plan (08/08/2022 10:30 AM CDT): S/p dual chamber pacemaker implantation with improved symptoms. Excellent device function. --Continue remote device f/u via [facility] Bradycardia 05/16/2021 Advance care planning 03/22/2021 SYLVIE (obstructive sleep apnea) 06/20/2020 Assessment & Plan (03/16/2024 5:27 PM CLERK GENERAL): Continue CPAP qhs Assessment & Plan (01/21/2024 1:25 PM CDT): CPAP HS Assessment & Plan (12/17/2023 4:49 AM CDT): - continue home NPPV Assessment & Plan (12/01/2023 1:51 PM CDT): -home CPAP Fatigue 02/24/2019 Gout 02/18/2018 Chronic kidney disease, stage 2 (mild) 8 Essential (primary) hypertension 10/28/2017 Assessment & Plan (09/07/2024 8:02 PM CDT): BP low-normal range. Continue holding all BP meds, amlodipine, HCTZ, lisinopril, spironolactone Assessment & Plan (09/06/2024 5:24 PM CDT): BP low-normal range. Continue holding all BP meds, amlodipine, HCTZ, lisinopril, spironolactone Assessment & Plan (09/05/2024 11:31 AM CDT): BP low-normal range. Continue holding all BP meds, amlodipine, HCTZ, lisinopril, spironolactone Assessment & Plan (09/04/2024 11:35 AM CDT): BP low-normal range. Continue holding all BP meds, amlodipine, HCTZ, lisinopril, spironolactone Assessment & Plan (09/03/2024 2:39 PM CDT): BP low-normal range. Continue holding all BP meds, amlodipine, HCTZ, lisinopril, spironolactone Assessment & Plan (09/02/2024 2:59 PM CDT): BP low-normal range. Continue holding all BP meds, amlodipine, HCTZ, lisinopril, spironolactone Assessment & Plan (09/01/2024 4:08 PM CDT): - Resumed amlodipine at lower dose but discontinued 08/31 and HCTZ resumed 08/31 - BP running low. Continue holding all BP meds, amlodipine, HCTZ, lisinopril, spironolactone Assessment & Plan (08/31/2024 11:39 AM CDT): - Held home meds initially; resumed amlodipine at lower dose. Amlodipine discontinued 08/31 and hydrochlorothiazide home medication resumed 08/31. Resume spironolactone as appropriate. Assessment & Plan (08/30/2024 12:11 PM CDT): - Held home meds initially; resumed amlodipine at lower dose, held due to soft blood pressure, resume as appropriate Assessment & Plan (08/29/2024 1:59 PM CDT): - Held home meds initially -resumed amlodipine at lower dose, increase as appropriate Assessment & Plan (08/28/2024 5:10 PM CDT): - Held home meds initially -resumed amlodipine at lower dose, increase as appropriate Assessment & Plan (08/27/2024 6:05 PM CDT): - Held home meds initially -resumed amlodipine at lower dose, increase as appropriate Assessment & Plan (08/26/2024 5:10 PM CDT): - Held home meds initially -resumed amlodipine at lower dose, increase as appropriate Assessment & Plan (08/25/2024 6:44 PM CDT): - Held home meds initially -resumed amlodipine at lower dose, increase as appropriate Assessment & Plan (08/24/2024 1:31 PM CDT): - Holding home meds initially - restart as needed Assessment & Plan (08/23/2024 12:11 PM CDT): - Holding home meds initially - restart piecemeal as needed Assessment & Plan (08/22/2024 12:03 PM CDT): - Holding home meds initially - restart piecemeal as needed Assessment & Plan (08/21/2024 9:15 PM CDT): - Holding home meds initially - restart piecemeal as needed Assessment & Plan (03/16/2024 5:27 PM CLERK GENERAL): Continue Amlodipine, Lisinopril, HCTZ Assessment & Plan (01/21/2024 1:21 PM CDT): BP stable. Continue amlodipine 5mg, HCTZ 25mg, lisinopril 40mg daily Assessment & Plan (12/17/2023 4:48 AM CDT): - hold home amlodipine, lisinopril, and HCTZ iso fevers and normotension; resume prn Assessment & Plan (12/06/2023 11:03 AM CDT): Currently well controlled. Explained to him that this is the likely mechanism underlying his left ventricular hypertrophy. Patient reassured. Continue lisinopril and metoprolol. Assessment & Plan (12/03/2023 9:38 AM CDT): Home amlodipine, lisinopril and hctz held due infection/soft Bps, although now improving. - Restart home meds after procedure. Tremor 04/01/2017 Hemangioma of skin 01/02/2017 Sebaceous gland hyperplasia 01/02/2017 Sebaceous cyst 01/02/2017 Rash of both hands 11/12/2016 Assessment & Plan (09/07/2024 8:02 PM CDT): Likely related to capecitabine - Continue clobetasol and urea creams Assessment & Plan (09/06/2024 5:24 PM CDT): Likely related to capecitabine - Continue clobetasol and urea creams Assessment & Plan (09/05/2024 11:31 AM CDT): Likely related to capecitabine - Continue clobetasol and urea creams Assessment & Plan (09/04/2024 11:35 AM CDT): Likely related to capecitabine - Continue clobetasol and urea creams Assessment & Plan (09/03/2024 2:39 PM CDT): Likely related to capecitabine - Continue clobetasol and urea creams Assessment & Plan (09/02/2024 10:30 AM CDT): Likely related to capecitabine - Continue clobetasol and urea creams Assessment & Plan (09/01/2024 4:08 PM CDT): Likely related to capecitabine - Continue clobetasol and urea creams Assessment & Plan (08/31/2024 11:42 AM CDT): Continue clobetasol and urea creams Assessment & Plan (08/30/2024 12:11 PM CDT): - Cont clobetasol and urea creams Assessment & Plan (08/29/2024 1:59 PM CDT): - Cont clobetasol and urea creams Assessment & Plan (08/28/2024 5:10 PM CDT): - Cont clobetasol and urea creams Assessment & Plan (08/27/2024 6:05 PM CDT): - Cont clobetasol and urea creams Assessment & Plan (08/26/2024 5:10 PM CDT): - Cont clobetasol and urea creams Assessment & Plan (08/25/2024 6:44 PM CDT): - Cont clobetasol and urea creams Assessment & Plan (08/24/2024 1:31 PM CDT): - Cont clobetasol and urea creams Assessment & Plan (08/23/2024 12:11 PM CDT): - Cont clobetasol and urea creams Assessment & Plan (08/22/2024 12:03 PM CDT): - Cont clobetasol and urea creams Assessment & Plan (08/21/2024 9:15 PM CDT): - Cont clobetasol and urea creams Cellulitis of finger 07/10/2016 Papilloma 05/01/2016 Dysthymia 10/31/2015 HLD (hyperlipidemia) 10/31/2015 Assessment & Plan (09/07/2024 8:02 PM CDT): - Continue statin Assessment & Plan (09/06/2024 5:24 PM CDT): - Continue statin Assessment & Plan (09/05/2024 11:31 AM CDT): - Continue statin Assessment & Plan (09/04/2024 11:35 AM CDT): - Continue statin Assessment & Plan (09/03/2024 2:39 PM CDT): - Continue statin Assessment & Plan (09/02/2024 10:30 AM CDT): Continue statin Assessment & Plan (09/01/2024 2:16 PM CDT): Continue statin Assessment & Plan (08/31/2024 11:42 AM CDT): Continue statin Assessment & Plan (08/30/2024 12:11 PM CDT): - Cont statin Assessment & Plan (08/29/2024 1:59 PM CDT): - Cont statin Assessment & Plan (08/28/2024 5:10 PM CDT): - Cont statin Assessment & Plan (08/27/2024 6:05 PM CDT): - Cont statin Assessment & Plan (08/26/2024 5:10 PM CDT): - Cont statin Assessment & Plan (08/25/2024 6:44 PM CDT): - Cont statin Assessment & Plan (08/24/2024 1:31 PM CDT): - Cont statin Assessment & Plan (08/23/2024 12:11 PM CDT): - Cont statin Assessment & Plan (08/22/2024 12:03 PM CDT): - Cont statin Assessment & Plan (08/21/2024 9:15 PM CDT): - Cont statin Assessment & Plan (03/16/2024 5:25 PM CLERK GENERAL): Continue statin Assessment & Plan (01/18/2024 7:01 PM CDT): Continue home statin Osteoarthritis 10/31/2015 Prediabetes 10/31/2015 Sensorineural hearing loss (SNHL) of right ear 0 10/31/2015 Tinnitus 09/05/2015 Cerumen impaction 09/05/2015 Sensorineural hearing loss, asymmetrical 016 Knee pain 01/17/2014 Seborrheic keratoses 03/07/2012 Hematuria 10/13/2008 Current Treatment and Therapy Plans Capecitabine 7 on 7 off 28 Day Cycles - Colon* Plan Start Date:07/13/2024 Plan Provider:Agustina Li MD PhD Linked Problems Hilar cholangiocarcinoma (HC C) Treatment Medications Current Day (Day 1 , Cycle 4 - Planned for 11/11/2024) Next Day (Day 1, Cycle 5 - Planned for 12/02/2024) capecitabine (XELODA) capecitabine (XELO DA) 500 mg tablet capecitabine (XELODA) 500 mg tablet gadoxetate (EOVIST) injection* Plan Start Date:05/29/2024 Plan Provider:Gorge Garza MD PhD Linked Problems Hilar cholangiocarcinoma (HC C) Treatment Medications No medications scheduled. IV Maintenance Therapy Plan* Plan Start Date:12/10/2023 Plan Provider:Agustina Li MD PhD Linked Problems Hilar cholangiocarcinoma (HC C) Treatment Medications No medications scheduled. Other Current Plans Hydration Therapy Plan* Plan Start Date:02/11/2024 Plan Provider:Agustina Li MD PhD Linked Problems DehydrationHypomagnesemia Treatment Medications No medications scheduled. iron dextran (INFED) infusion* Plan Start Date:04/15/2024 Plan Provider:Gorge Contreras MD PhD Linked Problems Iron deficiency anemia, unsp ecified iron deficiency anemia type Treatment Medications No medications scheduled. Past Treatment and Therapy Plans Oncology Chemotherapy Treatment Plan Name Start Date Discontinue Date Treatment Medications Discontinue Reason Plan Provider Cycles Albumin-bound PACLItaxel (Abraxane) / CISplatin / Gemcitabine 21 Day Cycles 12/10/2023 06/19/2024 ALBUMIN-BOUND PACLItaxel (ABRAXANE)CISplat in (PLATINOL)CISplat in (PLATINOL) IVPB in 250 mLdexAMETHasone (DECADRON)gemcita bine (GEMZAR)gemcitabi ne (GEMZAR) IVPB in 250 mL (using 38 mg/mL gemCITabine) (J9201)gemcitabin e IVPB in 250 mL (using 100 mg/ml gemcitabine) (J9196) Therapy Complete Gorge Contreras MD PhD 8 of 8 cycles started Specialty Infusion Treatment Plan Name Start Date Discontinue Date Treatment Medications Discontinue Reason Plan Provider Electrolyte Replacement 02/11/2024 09/09/2024 No medications scheduled. Therapy Complete Gorge Contreras MD PhD Radiation Treatments * Course C1_Liver_202406/22/2024 - 06/26/2024 Treatment Period Energy Fraction Dose Fractions Total Dose Plans Planned SBRT LIVER 06/22/2024 - 06/26/2024 1,000 5 / 5,000 Reference Points Delivered SBRT PANC_5000 06/22/2024 - 06/26/2024 5,000 Lifetime Dose Tracking * Chemical Lifetime Dose Automatic Entry Manual Entr y Fluoro Time 33.9 minutes 33.9 minutes 0 minutes Air kerma at the reference point (Ka,r) 1,485.3 mGy 1 ,449 mGy 36.3 mGy DLP 5,944 mGycm 5,944 mGycm 0 mGycm Resolved Problems Problem Noted Date Diagnosed Date Resolved Date SSS (sick sinus syndrome) 08/13/2023 Assessment & Plan (08/13/2023 8:33 PM CDT): S/p dual PPM. Excellent device function. --Continue remote device f/u quarterly
--- OUTSIDE RECORDS SUMMARY | 2024-10-13 19:46 | XMS_ITS | Encounter Summary ---
Author Organization [facility] Healthcare Address [address] [place] [address] Care Team Providers Care Clerk Travel Reservations Name Role Phone Gilberto Martinez MD Primary Care Provider [phone] Rossi BLACK MD, Zane Morataya Unavailable [phone] Raudel Childers MD Unavailable [phone] Gorge Contreras MD PhD Unavailable [phone] Chris Hart MD Unavailable Mei Cohen RN Unavailable [phone] Ely Tejada Unavailable Charlee Mcmillan Unavailable Unavailable Mariama Parisi RN Unavailable Agustina Li MD PhD Unavailable Encounter Details Date Type Department Care Team (Late st Contact Info) Description 05/29/2024 Documentation [facility] Radiation Oncology [address] [facility] [place] [address] Jamia Juarez, ALMITA Social History Tobacco Use Types Packs/Day Years Used Date Smoking Tobacco: Former Cigarettes 0.3 2 Q uit: 1992 Pipe Cigars Smokeless Tobacco: Never [facility] Utilities Answer Date Recorded In the past 12 months has [employer] electric, gas, oil, or water company threatened [...] week 03/16/2024 How often do you attend [facility] or judaism services? More than 4 times per year 03/16/2024 Do you belong to any clubs o r organizations such as restorationism groups, unions, fraternal or athletic groups, or [...] Date Recorded PHQ-2 Total Score 0 03/16/2024 [facility] - Occupational [...] any time in the past 12 m [facility], were you homeless or living in a custodial (including now)? No 03/16/2024 Personal Safety Answer Date Recorded Have you ever been in or are you currently in a harmful physical or emotional relationship or is someone making you feel afraid or unsafe? 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 Gender Identity Male 12/06/2019 4:39 PM CDT Sexual Orientation Straight 12/06/2019 4: 39 PM CDT documented as of this encounter Plan of Treatment Upcoming Encounters Date Type Department Care Team (Latest Contact Info) Description 10/15/2024 11:00 AM CDT Hospital Encounter [facility] [address] [place] [phone] Chris Holcomb MD [address] [address] History of biliary stent insertion 10/15/2024 11:00 AM CDT - 10/15/2024 11:30 AM CDT Surgery [facility] [address] [place] [phone] Chris Holcomb MD [address] [address] ERCP Stent Exch INR mail lab at [...] CDT Rotavirus suspected 08/27/2024 08/27/2024 08/28/19 25 8:39 AM CDT Rotavirus suspected 08/27/2024 08/27/2024 08/28/19 9:21 PM CDT documented as of this encounter Care Teams Clerk Travel Reservations Relationship Specialty Start Date End Date Gilberto Martinez MD [address] [place] [address] PCP - General 07/11/16 Zane Richey III, MD [address] [facility] [address] [place] [address] Consulting Physician Cardiology 05/18/21 Raudel Childers MD [phone] [place] [address] Consulting Physician Colon and Rectal Surgery 12/26/21 Gorge Contreras MD PhD [address] [place] [address] Medical Oncologist Medical Oncology 11/26/23 09/08/24 Chris Hart MD [address] [facility] [address] [place] [address] Cattle Shipper Cardiology 03/17/24 Mie Cohen, ALMITA [address] [facility] [address] [place] [address] Collar Feller 04/09/24 5 Ely Tejada PA [address] [id number] [place] [address] Referring Physician Physician Power Grader Operator 04/09/24 Charlee Mcmillan RMA Surgical Prehabilitation and Readiness (SPAR) Coordinator 06/11/24 Mariama Parisi, RN [address] [facility] [address] [place] [address] Collar Feller 08/07/24 Agustina Li MD PhD [id number] [place] [address] Medical Oncologist/Process Improvement Manager Medical Oncology 09/09/24 documented as of this encounter
--- OUTSIDE RECORDS SUMMARY | 2024-10-13 19:46 | XMS_ITS | Encounter Summary ---
Author Organization [facility] Healthcare Address [address] [place] [address] Care Team Providers Care Mining And Quarrying Machinery Repairer Name Role Phone Gilberto Martinez MD Primary Care Provider [phone] Rossi BLACK MD, Zane Morataya Unavailable [phone] Raudel Childers MD Unavailable [phone] Aarti Robles RN Unavailable [phone] Gorge Contreras MD PhD Unavailable [phone] Chris Hart MD Unavailable Mei Cohen RN Unavailable [phone] lEy Tejada Unavailable Charlee Mcmillan Unavailable Unavailable Mariama Parisi RN Unavailable [phone] Agustina Li MD PhD Unavailable [phone] Encounter Details Date Type Department Care Team (Late st Contact Info) Description 08/13/2023 Orders Only [facility] EpicCare Link Gilberto Martinez MD [address] [facility] [address] [place] [address] Accelerated hypertension (Primary Dx) Social History Tobacco Use Types Packs/Day Years Used Date Smoking Tobacco: Former Cigarettes Q uit: 1992 Smokeless Tobacco: Never [employer] Answer Date Recorded Q1: How often do you have a drink containing alc ohol? 2-4 times a month 06/30/2021 Q2: How many drinks containi ng alcohol do you have on a typical day when you are drinking? 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 [address] [place] [phone] Chris Holcomb MD [address] [address] History of biliary stent insertion 10/15/2024 11:00 AM CDT - 10/15/2024 11:30 AM CDT Surgery [address] [phone] Chris Holcomb MD [address] [address] ERCP Stent Exch INR mail lab at 0900 [[id number]] Scheduled Procedures Name Priority Associated Diagnoses Date/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) documented as of this encounter Visit Diagnoses Diagnosis Accelerated hypertension- Primary Essential hypertension, malignant History of biliary stent insertion- Primary History of biliary stent insertion documented in this encounter Additional Health Concerns Infection Onset Date Last Indicated Resolved Time COVID: Suspected 11/30/2023 11/30/2023 11/30/2023 3:24 PM CDT COVID: Suspected 12/16/2023 12/16/2023 12/16/2023 9:52 PM CDT COVID: Suspected Comment:12/16 negative 12/17/2023 12/17/202312/17/2023 10:41 A M CDT COVID: Suspected 12/20/2023 12/20/2023 12/21/2023 3:06 AM CDT COVID: Suspected 12/22/2023 12/22/2023 12/22/2023 2:13 PM CDT COVID: Suspected 01/18/2024 01/18/2024 01/18/2024 1:19 PM CDT COVID: Suspected 03/15/2024 03/15/2024 03/15/2024 5:59 PM CHARTERED FINANCIAL ANALYST C. difficile suspected 08/19/2024 08/19/202408/20 3:07 AM [...] documented as of this encounter Care Teams Mining And Quarrying Machinery Repairer Relationship Specialty Start Date End Date Gilberto Martinez MD [address] [facility] [address] [place] [address] PCP - General 07/11/16 Zane Richey III, MD [address] [facility] [address] [place] [address] Consulting Physician Cardiology 05/18/21 Raudel Childers MD [address] [facility] [phone] [place] [address] Consulting Physician Colon and Rectal Surgery 12/26/21 Aarti Robles, ALMITA [address] [facility] [address] [place] [address] SHOP Outpatient Sample Processor 11/18/23 12/16/23 Gorge Conterras MD PhD [address] [place] [address] Medical Oncologist Medical Oncology 11/26/23 09/08/24 Chris Hart MD [address] [facility] [address] [place] [address] Catheter Builder Cardiology 03/17/24 Mei Cohen, RN [address] [facility] [address] [place] [address] Merchandising Representative 04/09/24 5 Ely Tejada PA [address] [facility] [id number] [place] [address] Referring Physician Physician Hand Packer 04/09/24 Charlee Mcmillan RMA Surgical Prehabilitation and Readiness (SPAR) Coordinator 06/11/24 Mariama Parisi, RN [address] [facility] [address] [place] [address] Merchandising Representative 08/07/24 Agustina Li MD PhD [address] [place] [address] Medical Oncologist/Airport Operations Specialist Medical Oncology 09/09/24 documented as of this encounter
--- OUTSIDE RECORDS SUMMARY | 2024-10-13 19:46 | XMS_ITS | Encounter Summary ---
Author Organization [facility] Address [address] [place] [address] Phone Care Team Providers Care Engineering Librarian Name Role Phone Gilberto Martinez MD Primary Care Provider Rossi BLACK MD, Zane Morataya Unavailable [phone] Raudel Childers MD Unavailable [phone] Chris Hart MD Unavailable Ely Tejada Unavailable [phone] Charlee Mcmillan Unavailable Unavailable Mariama Parisi RN Unavailable Agustina Li MD PhD Unavailable [phone] Encounter Details Date Type Department Care Team (Late st Contact Info) Description 09/11/2024 Telephone [facility] Cardiology [address] [facility] [place] [facility] 8th [place] [address] [place] [address] Chris Hart MD [address] [address] Social History Tobacco Use Types [...] materials from doctor or pharmacy Sometimes 09/08/2024 [facility] Utilities Answer Date Recorded In the past 12 months has e [employer], [employer], oil, or water [employer] threatened to shut off services in your [...] How often do you attend [facility] or judaism services? More than 4 times per year 08/24/2024 Do you belong to any clubs o r organizations such as advent groups, unions, fraternal or athletic groups, or [...] [facility] - Occupational Stress Questionnaire Answer [...] any time in the past 12 m onths, were you homeless or living in a alf (including now)? No 08/24/2024 Personal Safety Answer Date Recorded Have you ever been in or are you currently in a harmful physical or emotional relationship or is someone making you feel afraid or unsafe? 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 Gender Identity Male 12/06/2019 4:39 PM CDT Sexual Orientation Straight 12/06/2019 4: 39 PM CDT documented as of this encounter Miscellaneous Notes * Telephone Encounter - Janett Lopez - 09/11/2024 12:12 PM CDT Spoke w/pt and he is scheduled for 10/13/24 with Aisha at [facility] * Telephone Encounter - Janett Lpoez - 09/11/2024 12:12 PM CDT ----- Message from Nurse Elissa Cooper sent at 09/07/2024 2:37 PM CDT ----- Regarding: FW: Follow Up Appointment ----- Message ----- From: Rochelle Escobar MD Sent: 09/07/2024 2:11 PM CDT To: Rafa Rojas [facility] Subject: Follow Up Appointment Va, This patient was seen by the inpatient service while in the hospital. Can we make a hospital follow-up appointment in 4-6 weeks? He also had an adjustment to his warfarin dose and will need follow-upwith his INR. Thanks! Rochelle documented in this encounter Plan of Treatment Upcoming Encounters Date Type Department Care Team (Latest Contact Info) Description 10/15/2024 11:00 AM CDT Hospital Encounter [facility] [address] [place] [address] Chris Holcomb MD [address] [place] [address] History of biliary stent insertion 10/15/2024 11:00 AM CDT - 10/15/2024 11:30 AM CDT Surgery [facility] [address] [place] [id number] Chris Holcomb MD [address] [place] [address] ERCP Stent Exch INR mail lab at 0900 [[id number]] Scheduled Procedures Name Priority Associated Diagnoses Date/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) documented as of this encounter Visit Diagnoses Not on filedocumented in this encounter Care Teams Engineering Librarian Relationship Specialty Start Date End Date Gilberto Martinez MD [address] [facility] [address] [place] [address] PCP - General 07/11/16 Zane Richey III, MD [address] [facility] [address] [place] [address] Consulting Physician Cardiology 05/18/21 Raudel Childers MD [address] [facility] [id number] [place] [address] Consulting Physician Colon and Rectal Surgery 12/26/21 Chris Hart MD [address] [facility] [address] [place] [address] Hadoop Administrator Cardiology 03/17/24 Ely Tejada PA [address] [facility] [id number] [place] [address] Referring Physician Physician Bill Collector 04/09/24 Charlee Mcmillan RMA Surgical Prehabilitation and Readiness (SPAR) Coordinator 06/11/24 Mariama Parisi, RN [address] [facility] [address] [place] [address] Geological Sample Tester 08/07/24 Agustina Li MD PhD [address] [place] [address] Medical Oncologist/Full Stack Engineer Medical Oncology 09/09/24 documented as of this encounter
--- OUTSIDE RECORDS SUMMARY | 2024-10-13 19:46 | XMS_ITS | Clinical Summary ---
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 Name Role Phone Unavailable Primary Care Provider Unavailabl e Social History Tobacco Use Types Packs/Day Years Used Date Smoking Tobacco: Never Assessed Sex and Gender Information Value Date Recorded Sex Assigned at Not on file Legal Sex Male 11:51 AM CDT Gender Identity Not on file Sexual Orientation Not on file Plan of Treatment Health Maintenance Due Date Last Done Comments FIT-DNA Q 3 years 1994 FIT/FOBT Q 1 year 1994 Flex Sig/CT Colonography Q 5 years 1994 PNEUMOCOCCAL VACCINE 50+ YEA RS (1 of 1 - PCV) 07/16/1999 ZOSTER VACCINE (1 of 2) 07/16/1999 INFLUENZA VACCINE (#1) 2023 9, 02/05/2018, 02/06/2016 RSV VACCINE (60+ or ) (1 - 1-dose 75+ series) 2024 COLORECTAL SCREENING 12/20/2026 12/20/2016, 05/06/19 06 Colorectal Cancer Screening 12/20/2026 DTAP/TDAP/TD VACCINES (2 - Tdap) 02/09/2029 02/10/20 19 Insurance [employer] [facility] [place]
--- OUTSIDE RECORDS SUMMARY | 2024-10-13 19:48 | XMS_ITS | Clinical Summary ---
Author Organization [facility] Address [address] [place] [address] Care Team Providers Care Silk Weaver Name Role Phone Gilberto Martinez MD Primary Care Provider Rossi BLACK MD, Curtis Merle Unavailable [phone] Raudel Childers MD Unavailable Chris Hart MD Unavailable Ely Tejada Unavailable Charlee Mcmillan Unavailable Unavailable Mariama Parisi RN Unavailable [phone] Agustina Li MD PhD Unavailable Allergies Active Allergy Reactions Criticality Noted Date Comments Cephalexin Dizziness Low 05/04/2021 Zosyn was given in 2021 & cefepime was given in 2023 Iodinated Contrast Media Hives Medium 10/13/2008 Medications citalopram (CeleXA) 20 mg tabletIndications:An xiety with Depression Take 1 tablet (20 mg total) by mouth every morning 018 Active multivitamin tabletIndications:Vi tamin Deficiency Prevention Take 1 tablet by mouth timber hand before breakfast Active simvastatin (ZOCOR) 10 mg tabletIndications:hy perlipidemia Take 1 tablet (10 mg total) by mouth nightly 015 Active amLODIPine (NORVASC) 5 mg tabletIndications:hy pertension Take 1 tablet (5 mg total) by mouth every morning Active hydroCHLOROthiazide (HYDRODIURIL) 25 mg tabletIndications:hy pertension Take 1 tablet (25 mg total) by mouth every morning Active lisinopriL (PRINIVIL,ZESTRIL) 40 mg tabletIndications:hy pertension Take 1 tablet (40 mg total) by mouth every morning Active meclizine (ANTIVERT) 25 mg tabletIndications:Ve rtigo Take 1 tablet (25 mg total) by mouth every 6 (six) hours as needed for dizziness 30 tablet Active spironolactone (ALDACTONE) 25 mg tabletIndications:hy pertension Take 1 tablet (25 mg total) by mouth daily 90 tablet 3 024 03/31 Active loperamide (IMODIUM) 2 mg capsuleIndications:d iarrhea Take 1 capsule (2 mg total) by mouth 4 (four) times a day as needed for diarrhea Active acetaminophen (TYLENOL) 500 mg tabletIndications:Pa in Take 1 tablet (500 mg total) by mouth every 6 (six) hours as needed for pain 16 tablet Active urea (CARMOL) 20 % creamIndications:Hyp erkeratosis,chemothe rapy induced hand foot syndrome Apply to hands and feet 3x daily and as needed. 85 g 3 025 Active capecitabine (XELODA) 500 mg tabletIndications:hi lar cholangiocarcinoma Indications: hilar cholangiocarci noma. Take 1500mg (3 tablets) by mouth each morning and 2000mg (4 tablets) by mouth each evening for 14 days. Then hold for 7 days. Repeat. 98 tablet 025 Active betahistine TAKE 1 CAPSULE (24 MG TOTAL) BY MOUTH 3 TIMES A DAY WITH FOOD 270 capsule 4 025 Active sotaloL (BETAPACE) 80 mg tabletIndications:Pr evention of Recurrent Atrial Fibrillation Take 1 tablet (80 mg total) by mouth 2 (two) times a day 180 tablet 3 025 08/17 Active clobetasoL (TEMOVATE) 0.05 % creamIndications:clifford motherapy induced hand foot syndrome Apply to hands and feet 2-3 times per day 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 60 g 1 Active al & mag hydroxide simethicone-diphenhy pteesoz-onzwprzhs-vw statin (MAGIC MOUTHWASH) suspensionIndication s:oral thrush Swish and spit 15 mL every 4 (four) hours as needed (mucositis) 300 mL Active benzocaine-menthoL (CHLORASEPTIC) 6-10 mg lozengeIndications:S ore Throat Take 1 lozenge by mouth every 3 (three) hours as needed for sore throat 100 tablet Active benzonatate (TESSALON) 100 mg capsuleIndications:C ough Take 1 capsule (100 mg total) by mouth 3 (three) times a day as needed for cough 50 capsule Active calcium carbonate (TUMS) 500 mg (200 mg elemental calcium) chewable tabletIndications:Hy pocalcemia Prevention Take 1 tablet/chew tab (500 mg total) by mouth 3 (three) times a day as needed for indigestion or heartburn 90 tablet 09/06 Active famotidine (PEPCID) 20 mg tabletIndications:ga stroesophageal reflux disease Take 1 tablet (20 mg total) by mouth daily 30 tablet 11 09/07 Active oxyCODONE (ROXICODONE) 5 mg immediate release tabletIndications:Pa in Take 1 tablet (5 mg total) by mouth 4 (four) times a day as needed for pain 28 tablet Active sodium chloride (OCEAN) 0.65 % nasal sprayIndications:Dry Nose Administer 1 spray into each nostril every 2 (two) hours as needed for congestion 15 mL 09/06 Active polyethylene glycol (MIRALAX) 17 gram/dose bulk powderIndications:co nstipation Take 17 g by mouth daily as needed (if no bowel movement in > 24 hrs) 510 g Active warfarin (COUMADIN) 1 mg tabletIndications:at rial fibrillation Take 1 tablet (1 mg total) by mouth daily 30 tablet Active Additional Information Patient taking differently:1 mg oral Daily,Patient currently taking 2mg tablet once daily based off of INR results from 09/30/24., Indications: atrial fibrillation, Reported on 10/13/2024 prochlorperazine (COMPAZINE) 5 mg tabletIndications:Ca ncer Chemotherapy-Induced Nausea and Vomiting,Nausea and Vomiting,Prevention of Chemotherapy-Induced Nausea and Vomiting Take 1 tablet (5 mg total) by mouth every 8 (eight) hours as needed for nausea or vomiting 20 tablet Active albuterol HFA (PROVENTIL HFA,VENTOLIN HFA,PROAIR HFA) 90 mcg/actuation inhalerIndications:A cute Asthma Attack Inhale 2 puffs every 6 (six) hours as needed for wheezing 3 each 4 09/07 Active oxygenIndications:Dy spnea Administer 3 L/min into each nostril continuously. 1L to 3L with activity Indications: trouble breathing Active ferrous sulfate 325 mg (65 mg of elemental iron) tabletIndications:Ir on Deficiency Anemia Take 1 tablet (325 mg total) by mouth 2 (two) times a day with meals 60 tablet 2 Active Additional Information Patient taking differently:65 mg of elemental iron oral 2 times daily with meals (bkfst, dinner),RX # [id number] [facility] in home, Indications: Iron Deficiency Anemia, Reported on 10/13/2024 temazepam (RESTORIL) 30 mg capsuleIndications:I nsomnia Take 1 capsule (30 mg total) by mouth nightly as needed for sleep 30 capsule 025 10/16 Active diphenhydrAMINE (BENADRYL) 50 mg capsule Take 1 capsule (50 mg total) by mouth once for 1 dose Take one tablet 1 hour prior to imaging 1 capsule Active budesonide EC (ENTOCORT EC) 3 mg 24 hr capsuleIndications:D rug-induced colitis,Hilar cholangiocarcinoma (HCC) Take 1 capsule (3 mg total) by mouth every morning 30 capsule Active Additional Information Patient taking differently:3 mg oral Every morning,rx# [id number], Indications: inflammation, Reported on 10/13/2024 capecitabine (XELODA) 500 mg tabletIndications:hi lar cholangiocarcinoma Indications: hilar cholangiocarci noma. Take 1500mg (3 tablets) by mouth each morning and 1500mg (3 tablets) by mouth each evening for 7 days on and 7 days off. Repeat. 84 tablet Active capecitabine (XELODA) 500 mg tabletIndications:ca ncer Take 500 mg by mouth 6 (six) times a day. Take 3 tablets (1500 mg) by mouth each morning and 3 tablets (1500mg) by mout each evening for 7 days on and 7 days off. repeat. Indications: cancer Active tamsulosin (FLOMAX) 0.4 mg extended release capsuleIndications:b enign prostatic hyperplasia with lower urinary tract sx Take 1 capsule (0.4 mg total) by mouth daily with dinner 30 capsule 025 Active tamsulosin (FLOMAX) 0.4 mg extended release capsuleIndications:b enign prostatic hyperplasia with lower urinary tract sx Take 1 capsule (0.4 mg total) by mouth daily with dinner 30 capsule 025 10/09 Discontinued( Reorder) budesonide EC (ENTOCORT EC) 3 mg 24 hr capsuleIndications:C rohn's Disease Take 3 capsules (9 mg total) by mouth daily 90 capsule 025 09/21 Discontinued budesonide EC (ENTOCORT EC) 3 mg 24 hr capsuleIndications:D rug-induced colitis,Hilar cholangiocarcinoma (HCC) Take 3 capsules (9 mg total) by mouth every morning 30 capsule 025 09/21 Discontinued temazepam (RESTORIL) 30 mg capsuleIndications:I nsomnia Take 1 capsule (30 mg total) by mouth nightly as needed for sleep 30 capsule 025 09/16 Discontinued( Reorder) budesonide 4 mg capsule,delayed release(DR/EC)Indica tions:Hilar cholangiocarcinoma (HCC),Drug-induced colitis Take 4 mg by mouth daily For 7 days 28 capsule 025 09/25 Discontinued budesonide EC (ENTOCORT EC) 3 mg 24 hr capsuleIndications:D rug-induced colitis,Hilar cholangiocarcinoma (HCC) Take 1 capsule (3 mg total) by mouth every morning 7 capsule 025 10/02 Discontinued( Reorder) predniSONE (DELTASONE) 50 mg tablet Take 1 tablet (50 mg) by mouth 3 (three) times a day for 1 day Take one tablet 13 hours prior to imagining, another 7 hours prior and another tablet one hour prior 3 tablet 025 10/02 Active Problems Patient Care Coordination No te [...] be able to pay for it at sd); keep only loperamide as prn. Assessment & [...] be able to pay for it at sd); keep only loperamide as prn. Assessment & [...] flexible sigmoidoscopy tomorrow by GI. If INR 08/28 remains greater than 2; plan to administer [...] 9 y - s/p Vit K in [facility]. S/p vitamin K 2.5 mg oral once [...] 9 y - s/p Vit K in [facility]. S/p vitamin K 2.5 mg oral once 08/22, s/p Vit K 10 IV 08/23 - INR 1.63 08/24-- Resumed warfarin home dose 2 mg daily (08/24-p) - Daily INR Assessment & Plan (09/05/2024 11:31 AM CDT): - Secondary to nausea/vomiting/diarhea while on warfarin. INR > 9 y - s/p Vit K in [facility]. S/p vitamin K 2.5 mg oral once 08/22, s/p Vit K 10 IV 08/23 - INR 1.63 08/24-- Resumed warfarin home dose 2 mg daily (08/24-p) - Daily INR Assessment & Plan (09/04/2024 11:35 AM CDT): - Secondary to nausea/vomiting/diarhea while on warfarin. INR > 9 y - s/p Vit K in [facility]. S/p vitamin K 2.5 mg oral once 08/22, s/p Vit K 10 IV 08/23 - INR 1.63 08/24-- Resumed warfarin home dose 2 mg daily (08/24-p) - Daily INR Assessment & Plan (09/03/2024 2:39 PM CDT): - Secondary to nausea/vomiting/diarhea while on warfarin. INR > 9 y - s/p Vit K in [facility]. S/p vitamin K 2.5 mg oral once 08/22, s/p Vit K 10 IV 08/23 - INR 1.63 08/24-- Resumed warfarin home dose 2 mg daily (08/24-p) - Daily INR Assessment & Plan (09/02/2024 10:30 AM CDT): - Secondary to nausea/vomiting/diarhea while on warfarin. INR > 9 y - s/p Vit K in [facility]. S/p vitamin K 2.5 mg oral once 08/22, s/p Vit K 10 IV 08/23 - INR 1.63 08/24-- Resumed warfarin home dose 2 mg daily (08/24-p) - Daily INR Assessment & Plan (09/01/2024 4:08 PM CDT): - Secondary to nausea/vomiting/diarhea while on warfarin. INR > 9 y - s/p Vit K in [facility]. S/p vitamin K 2.5 mg oral once 08/22, s/p Vit K 10 IV 08/23 - INR 1.63 08/24-- Resumed warfarin home dose 2 mg daily (08/24-p) - Daily INR Assessment & Plan (08/31/2024 11:42 AM CDT): - Secondary to nausea/vomiting/diarhea while on warfarin INR > 9 y - s/p Vit K in [facility] S/p vitamin K 2.5 mg oral once 08/22, s/p Vit K 10 IV 08/23 INR 1.63 08/24-- Resumed warfarin home dose 2 mg daily (08/24-p) Daily INR See atrial fibrillation Assessment & Plan (08/30/2024 12:11 PM CDT): - Secondary to nausea/vomiting/diarhea while on warfarin INR > 9 y - s/p Vit K in [facility] S/p vitamin K 2.5 mg oral once 08/22, s/p Vit K 10 IV 08/23 INR 1.63 08/24-- Resumed warfarin home dose 2 mg daily (08/24-p) Daily INR Assessment & Plan (08/29/2024 1:59 PM CDT): - Secondary to nausea/vomiting/diarhea while on warfarin INR > 9 y - s/p Vit K in [facility] S/p vitamin K 2.5 mg oral once 08/22, s/p Vit K 10 IV 08/23 INR 1.63 08/24-- Resumed warfarin home dose 2 mg daily (08/24-p) Daily INR Assessment & Plan (08/28/2024 5:10 PM CDT): - Secondary to nausea/vomiting/diarhea while on warfarin INR > 9 y - s/p Vit K in [facility] S/p vitamin K 2.5 mg oral once 08/22, s/p Vit K 10 IV 08/23 INR 1.63 08/24-- Resumed warfarin home dose 2 mg daily (08/24-p) Daily INR Assessment & Plan (08/27/2024 6:05 PM CDT): - Secondary to nausea/vomiting/diarhea while on warfarin INR > 9 y - s/p Vit K in [facility] S/p vitamin K 2.5 mg oral once 08/22, s/p Vit K 10 IV 08/23 INR 1.63 08/24-- Resumed warfarin home dose 2 mg daily (08/24-p) Daily INR Assessment & Plan (08/26/2024 5:10 PM CDT): - Secondary to nausea/vomiting/diarhea while on warfarin INR > 9 y - s/p Vit K in [facility] S/p vitamin K 2.5 mg oral once 08/22, s/p Vit K 10 IV 08/23 INR 1.63 08/24-- Resumed warfarin home dose 2 mg daily (08/24-p) Daily INR Assessment & Plan (08/25/2024 6:44 PM CDT): - Secondary to nausea/vomiting/diarhea while on warfarin INR > 9 y - s/p Vit K in [facility] S/p vitamin K 2.5 mg oral once 08/22, s/p Vit K 10 IV 08/23 INR 1.63 08/24-- Resumed warfarin home dose 2 mg daily (08/24-p) Daily INR Assessment & Plan (08/24/2024 1:31 PM CDT): - Secondary to nausea/vomiting/diarhea while on warfarin INR > 9 y - s/p Vit K in [facility] S/p vitamin K 2.5 mg oral once 08/22, s/p Vit K 10 IV 08/23 INR 1.63 08/24-- Resumed warfarin home dose 2 mg daily (08/24-p) Assessment & Plan (08/23/2024 12:11 PM CDT): - Secondary to nausea/vomiting/diarrhea while on warfarin INR > 9 y - s/p Vit K in [facility] - , continue to hold warfarin, bleeding precautions ordered Ordered vitamin K 2.5 mg oral once 08/22 INR more than 9 today, still having poor oral intake with diarrhea, will give IV vitamin K 10 mg once 4/20 Assessment & Plan (08/22/2024 12:03 PM CDT): - Secondary to nausea/vomiting/diarrhea while on warfarin INR > 9 y - s/p Vit K in [facility] - , continue to hold warfarin, bleeding precautions ordered Ordered vitamin K 2.5 mg oral once 08/22 Oral intake encouraged. Assessment & Plan (08/21/2024 9:15 PM CDT): - INR > 9 with hematuria noted recently - s/p Vit K in [facility] - Trend INR in AM, continue to [...] 025 Assessment & Plan (06/09/2024 8:50 PM EMERGENCY MEDICINE MEDICAL DIRECTOR): -Remains compliant sotalol -increase to 80 mg [...] 7 Assessment & Plan (03/16/2024 5:32 PM EMERGENCY MEDICINE MEDICAL DIRECTOR): - H/H- 8.9/27 Monitor CBC closely Lactic acidosis 03/15/2024 Assessment & Plan (03/16/2024 5:29 PM EMERGENCY MEDICINE MEDICAL DIRECTOR): Lactate 4 in [facility]. Reports normal PO intake. Improved to 2.3 after 1L IVF. Unclear etiology. Lactate lateralized on a.m. labs Hypomagnesemia 03/10/2024 Hypophosphatemia 02/11/2024 Dehydration 02/10/2024 Mood disorder 01/18/2024 Assessment & Plan (01/18/2024 8:13 PM CDT): Continue home citalopram Shortness of breath 01/18/2024 Assessment & Plan (03/16/2024 5:31 PM EMERGENCY MEDICINE MEDICAL DIRECTOR): P/w SOB, fatigue, generalized weakness. Similar episodes in the past w/ unremarkable workup. In [facility], Tmax 99.4, satting well on RA, BP [...] negative to date -given cefe x1 in [facility]; hold off on further abx for now [...] 11:31 AM CDT): Established care with Dr. Flowers, s/p chemo/radiation, active on transplant list and on maintenance capecitabine - Appreciate Med Onc recs Assessment & Plan (09/04/2024 11:35 AM CDT): Established care with Dr. Flowers, s/p chemo/radiation, active on transplant list and on maintenance capecitabine - Appreciate Med Onc recs Assessment & Plan (09/03/2024 2:39 PM CDT): Established care with Dr. Flowers, s/p chemo/radiation, active on transplant list and on maintenance capecitabine - Appreciate Med Onc recs Assessment & Plan (09/02/2024 10:30 AM CDT): Established care with Dr. Flowers, s/p chemo/radiation, active on transplant list and on maintenance capecitabine - Appreciate Med Onc recs Assessment & Plan (09/01/2024 4:08 PM CDT): Established care with Dr. Flowers, [...] (08/26/2024 5:10 PM CDT): - Established with armand Nettles/p chemo/radiation, active on transplant list and on maintenance capecitabine - Oncology consulted. Assessment & Plan (08/25/2024 6:44 PM CDT): - Established with armand Nettles/p chemo/radiation, active on transplant list and on maintenance capecitabine - Oncology consulted. Assessment & Plan (08/24/2024 1:31 PM CDT): - Established with armand Nettles/p chemo/radiation, active on transplant list and on maintenance capecitabine - Oncology consult Assessment & Plan (08/23/2024 12:11 PM CDT): - Established with Dr. Flowers, s/p chemo/radiation, active on transplant list and on maintenance capecitabine - [facility] consult discussion regarding continuatio of capecitabine Assessment & Plan (08/22/2024 12:03 PM CDT): - Established with armand Nettles/p chemo/radiation, active on transplant list and on maintenance capecitabine - [facility] onc consult discussion regarding continuatio of capecitabine Assessment & Plan (08/21/2024 9:15 PM CDT): - Established with Dr. Flowers s/p chemo/radiation, active on transplant list and on maintenance capecitabine - [place] onc consult discussion regarding continuatio of capecitabine Assessment & Plan (03/16/2024 5:32 PM EMERGENCY MEDICINE MEDICAL DIRECTOR): Dx 11/2023 after presenting with jaundice in [...] - Plan for further follow up with med Onc as outpatient Assessment & Plan (01/21/2024 [...] resectable. Planned for port 12/01 and start [place]+Cis+Abrax after, which will be postponed for 1wk [...] 10/24/2023 Assessment & Plan (03/15/2024 9:54 PM EMERGENCY MEDICINE MEDICAL DIRECTOR): -cont betahistine 24mg tid (home supply) Assessment [...] 02/26/2023 Assessment & Plan (06/09/2024 8:48 PM EMERGENCY MEDICINE MEDICAL DIRECTOR): -Status post dual-chamber pacemaker placement -Device interrogation [...] above Assessment & Plan (06/09/2024 8:49 PM EMERGENCY MEDICINE MEDICAL DIRECTOR): -Status post radiofrequency catheter ablation with Dr. Richey -Remains compliant on apixaban and sotalol -Noted to have a sustained episode recently causing symptoms -Increase sotalol to 80 mg b.i.d. -Obtain an EKG after 3 doses to evaluate QT interval -Follow up in 6 months for 12 lead EKG, device interrogation, and clinic visit Assessment & Plan (03/15/2024 10:22 PM EMERGENCY MEDICINE MEDICAL DIRECTOR): S/p PVI, CTI ablation 09/09/23. Follows w/ [...] AM CDT): Asymptomatic, device-detected AF. Low burden. [id number] = 2. --Continue apixaban 5 mg BID Lightheadedness 03/12/2022 Small bowel obstruction 12/23/2021 Sinus bradycardia 05/29/2021 Sick sinus syndrome 05/19/2021 Overview (05/19/2021): Added automatically from request for surgery [id number] Assessment & Plan (03/15/2024 9:53 PM EMERGENCY MEDICINE MEDICAL DIRECTOR): -s/p PPM Assessment & Plan (01/21/2024 1:23 [...] 06/20/2020 Assessment & Plan (03/16/2024 5:27 PM EMERGENCY MEDICINE MEDICAL DIRECTOR): Continue CPAP qhs Assessment & Plan (01/21/2024 [...] needed Assessment & Plan (03/16/2024 5:27 PM EMERGENCY MEDICINE MEDICAL DIRECTOR): Continue Amlodipine, Lisinopril, HCTZ Assessment & Plan [...] statin Assessment & Plan (03/16/2024 5:25 PM EMERGENCY MEDICINE MEDICAL DIRECTOR): Continue statin Assessment & Plan (01/18/2024 7:01 PM CDT): Continue home statin Osteoarthritis 10/31/2015 Prediabetes 10/31/2015 Sensorineural hearing loss (SNHL) of right ear 0 10/31/2015 Tinnitus 09/05/2015 Cerumen impaction 09/05/2015 Sensorineural hearing loss, asymmetrical 016 Knee pain 01/17/2014 Seborrheic keratoses 03/07/2012 Hematuria 10/13/2008 Resolved Problems Problem Noted Date Diagnosed Date Resolved Date SSS (sick sinus syndrome) 08/13/2023 Assessment & Plan (08/13/2023 8:33 PM CDT): S/p dual PPM. Excellent device function. --Continue remote device f/u quarterly Encounters Date Type Department Care Team Description 5 2:00 PM CDT Home Care Visit [address] [place] [address] Bryn Molina, PT PT HOME VISIT 5 10:00 AM CDT Office Visit [facility] Cardiology [address] [facility] [address] [place] [address] Aisha Delcid NP 5 Telephone [facility] Oncology [address] [facility] [address] [place] [address] Bebe Sage RN 5 9:38 AM CDT - 5 11:59 PM CDT Hospital Encounter [facility] [address] [place] [id number] 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) Discharge Disposition: Discharge to home or self care 5 Results Follow-Up [facility] [address] [facility] [address] Mailstop [id number] [place] [address] Alethea Burch, ALMITA CT Chest Abdomen Pelvis W Contrast 5 10:30 AM CDT Home Care Visit [address] [place] [address] Angeline Horowitz COTA OT HOME VISIT 5 Orders Only [facility]cology [address] [facility] [address] 5 [place] [phone] Agustina Li MD PhD Benign prostatic hyperplasia, unspecified whether lower urinary tract symptoms present (Primary Dx); Hilar cholangiocarcinoma (HCC) 5 10:00 AM CDT Home Care Visit [address] [place] [address] Bryn Molina, PT PT HOME VISIT 5 Telephone [facility] [address] [place] [address] Mailstop [phone] [place] [address] Alethea Burch RN 5 Telephone [facility] [address] [place] [address] Mailstop [phone] [place] [address] Alethea Burch RN 5 Orders Only [facility] Oncology [address] [facility] [address] 5 [place] [phone] Agustina Li MD PhD 5 Telephone [facility] [address] [place] [address] [address] Mailstop [phone] [place] [address] Alethea Burch RN 5 10:00 AM CDT Office Visit [facility] Oncology [address] [facility] [address] [place] [phone] Agustina Li MD PhD Hilar cholangiocarcinoma (HCC) (Primary Dx) 5 9:00 AM CDT Clinical Support [facility] [address] [place] [phone] Hilar cholangiocarcinoma (HCC) 5 Results Follow-Up [facility] [address] [place] [address] Mailstop [phone] [place] [address] Alethea Burch, RN Cancer antigen 19-9, Comprehensive metabolic panel, CBC with auto differential, Additional followed-up results: 3 5 Telephone [facility] [address] [facility] [address] Mailstop [phone] [place] [address] Alethea Burch RN 5 Anticoagulation Telephone Call [facility] Cardiology [address] [facility] [address] [place] [address] Chris Hart MD Paroxysmal atrial fibrillation (HCC) (Primary Dx) 5 12:15 PM CDT Home Care Visit [address] [place] [address] Angeline Horowitz COTA OT HOME VISIT 5 10:30 AM CDT Home Care Visit [address] [place] [address] Bryn Molina, PT PT HOME VISIT 5 10:00 AM CDT Home Care Visit [address] [place] [address] Bryn Molina, PT PT REASSESSMENT 5 Orders Only [address] [address] Charlee Tovar [facility] 5 Telephone [facility] Oncology [address] [facility] [address] [place] [address] Marion Aden RN 5 12:00 PM CDT Home Care Visit [address] [place] [address] Hannah Roque, OT OT REASSESSMENT 5 Surgical Prehabilitation and Readiness Subsequent Outreach [facility] Department of Surgery [address] [place] [id number] Serge August CMA 5 Orders Only [facility] [address] [facility] [address] Mailstop [phone] [place] [address] Mariama Parisi, ALMITA 5 Documentation [facility] [address] [facility] [address] Mailstop [phone] [place] [address] Analisa, Nimisha 5 Telephone [facility] [address] [facility] [address] Mailstop [phone] [place] [address] Analisa, Nimisha 5 Telephone [facility] [address] [place] [address] [address] Mailstop [phone] [place] [address] Mariama Parisi RN 5 Anticoagulation Telephone Call [facility] Cardiology [facility] Medical Office Building 3 [address] [place] [address] Chris Hart MD Longstanding persistent atrial fibrillation (HCC) (Primary Dx) 5 12:00 PM CDT Home Care Visit [address] [place] [address] Angeline Horowitz COTA OT HOME VISIT 5 10:15 AM CDT Home Care Visit [address] [address] [address] [place] [address] Bryn Molina, PT PT HOME VISIT 5 Orders Only [facility] Oncology 4500 [facility] Floor 5 [place] [id number] Agustina Li MD PhD Hilar cholangiocarcinoma (HCC) (Primary Dx) 5 Telephone [facility] 4590 [facility] [address] Mailstop 06-98-153 [place] [address] Mariama Parisi RN 5 1:15 PM CDT Home Care Visit [address] [place] [address] Angeline Horowitz COTA OT HOME VISIT 5 Documentation [facility] Oncology [address] [facility] Floor 5 [place] [address] Marion Aden RN 5 12:00 PM CDT Home Care Visit [address] [place] [address] Radha Grullon, PT PT REASSESSMENT 5 Telephone [facility] Oncology [address] [facility] Floor 5 [place] [address] Marion Aden RN 5 Surgical Prehabilitation and Readiness Subsequent Outreach [facility] Department of Surgery [address] [place] [phone] Serge August CMA 5 Anticoagulation Telephone Call [facility] Cardiology 1020 [facility] Medical Office Building 3 [address] [place] [address] Chris Hart MD Longstanding persistent atrial fibrillation (HCC) (Primary Dx) 5 1:45 PM CDT Home Care Visit [address] [place] [address] Angeline Horowitz COTA OT HOME VISIT 5 Telephone [facility] Cardiology [facility] 8th [place] [address] [place] [address] Chris Hart MD 5 11:15 AM CDT Home Care Visit [address] [place] [address] Radha Grullon, PT PT HOME VISIT 5 2:30 PM CDT Home Care Visit [address] [place] [address] Bryn Molina, PT PT HOME VISIT 5 Documentation [facility] [address] [facility] [address] Mailstop 30-61-448 [place] [address] Nimisha Hauser 5 1:45 PM CDT Home Care Visit [facility] [address] [place] [address] Angeline Horowitz COTA OT HOME VISIT 5 Telephone [facility] Trans[facility] Liver [address] [facility] [address] Mailstop 28-42-204 [place] [address] Mariama Parisi, RN 5 Telephone [facility] [address] [facility] [address] Mailstop 68-11-325 [place] [address] Mariama Parisi, RN 5 Results Follow-Up [facility] [address] [facility] [address] Mailstop 31-60-590 [place] [address] Mariama Parisi, RN Cancer antigen 19-9, Comprehensive metabolic panel, CBC with auto differential, Additional followed-up results: 3 5 9:15 AM CDT Clinical Support [facility] Center at [address] [address] 5 8:45 AM CDT Office Visit [facility] Oncology [address] [place] [address] [address] [place] [address] Agustina Li MD PhD Hilar cholangiocarcinoma (HCC) (Primary Dx) 5 7:45 AM CDT Clinical Support [facility] at [address] [place] [address] Hilar cholangiocarcinoma (HCC); Paroxysmal atrial fibrillation (HCC); High risk medication use; Prolonged INR 5 Anticoagulation Telephone Call [facility] Cardiology [facility] Medical Office Building 3 [address] [place] [address] Chris Hart MD 5 12:45 PM CDT Home Care Visit [address] [address] [address] [place] [address] Angeline Horowitz COTA OT HOME VISIT 5 Anticoagulation Telephone Call [facility] Cardiology [address] [place] [address] Office Building [address] [place] [address] Chris Hart MD 5 2:00 PM CDT Home Care Visit [address] [place] [address] Bryn Molina, PT PT HOME VISIT 5 Telephone [facility] 4590 [facility] 3401 Mailstop 68-05-045 [place] [address] Genoveva Hobson 5 Documentation [facility] 4590 [facility] 3401 Mailstop 08-47-717 [place] [address] Mariama Parisi RN 5 Orders Only [facility] Scanning, Provider 5 Documentation [facility] Oncology [address] [facility] Floor 5 [place] [phone] Marion Aden RN 5 Anticoagulation Telephone Call [facility] Cardiology [address] [place] [address] Office Building [address] [place] [address] Chris Hart MD Paroxysmal atrial fibrillation (HCC) (Primary Dx) 5 Telephone [facility] Cardiology 4921 [facility] 8th [place] [address] [place] [address] Chris Hart MD 5 1:00 PM CDT Home Care Visit [address] [place] [address] Hannah Roque, OT OT INITIAL EVALUATION 5 Home Care Visit [address] [place] [address] Hannah Roque, DIXIE CASE COMMUNICATION 5 Home Care Visit [address] [place] [address] Samia Carias, RN NURSE MED RECON FOR THERAPY 5 Telephone [facility] Oncology [address] [place] [address] [address] [place] [phone] Smith Cruz 5 Orders Only [facility] Oncology [address] [place] [address] Floor 5 [place] [phone] Agustina Li MD PhD Hilar cholangiocarcinoma (HCC) (Primary Dx) 5 Documentation [facility] Oncology [address] [place] [address] 5 [place] [address] Marion Aden RN 5 Surgical Prehabilitation and Readiness Subsequent Outreach [facility] Department of Surgery [address] [place] [phone] Serge August CMA 5 9:00 AM CDT Infusion [facility] at [address] [place] [phone] Dehydration (Primary Dx); Hilar cholangiocarcinoma (HCC); Hypomagnesemia 5 8:30 AM CDT Office Visit [facility] Oncology [address] [place] [address] 100 [place] [phone] Leela Guillermo NP Hilar cholangiocarcinoma (HCC) (Primary Dx); Dehydration 5 7:45 AM CDT Clinical Support [facility] at [address] [place] [address] 5 7:30 AM CDT Clinical Support [facility] at [address] [place] [address] Hilar cholangiocarcinoma (HCC); Paroxysmal atrial fibrillation (HCC); High risk medication use; Prolonged INR 5 Home Care Visit [address] [place] [address] Samia Carias RN NURSE MED RECON FOR THERAPY 5 Documentation [facility] Oncology [address] [place] [address] Floor 5 [place] [address] Heidi Diaz RMA Prior Auth 5 Orders Only [facility] Oncology [address] [place] [address] Floor 5 [place] [phone] Agustina Li MD PhD 5 Orders Only [facility] [address] [place] [address] Floor [address] [place] [address] Agustina Li MD PhD 5 Documentation [facility] at [facility] [address] [place] [address] 5 Documentation [facility] Oncology [address] [place] [address] Floor 5 [place] [address] Heidi Diaz RMA Prior Auth 5 Anticoagulation Telephone Call [facility] Cardiology 1020 [facility] Medical Office Building 3 [address] [place] [address] Chris Hart MD 5 1:00 PM CDT Home Care Visit [address] [address] [address] [place] [address] Radha Grullon, PT PT OASIS START OF CARE 5 Plan of Care Documentation [address] [address] [place] [address] 5 Telephone [facility] [address] [facility] [address] Mailstop 90-29-908 [place] [address] Genoveva Hobson 5 Telephone [facility] [address] [facility] [address] Mailstop 02-81-349 [place] [address] Genoveva Hboson 5 Telephone [facility] [address] [facility] [address] Mailstop 74-62-710 [place] [address] Mariama Parisi RN 5 Telephone [facility] Oncology [address] [facility] Floor 5 [place] [address] Landy Hooker, ALMITA 5 Anticoagulation Telephone Call [facility] Cardiology 45[address] [facility] Floor 1, [address] [place] [address] Seema Mora RN 5 Travel 5 2:20 PM CDT Ancillary Procedure [facility] Vascular Lab IP 1 [facility] [address] [place] [phone] 5 Surgical Prehabilitation and Readiness Subsequent Outreach [facility] Department of Surgery [address] [place] [address] Serge August CMA 5 7:55 AM CDT Ancillary Procedure [facility] Vascular Lab IP 1 [facility] [address] [place] [phone] [address] [place] [address] Yee Marin RN 5 Orders Only [facility] Oncology [facility] Floor 5 [place] [address] Landy Hooker, ALMITA Hilar cholangiocarcinoma (HCC) (Primary Dx) 5 11:35 AM CDT Anesthesia Event [facility] 1 [place] [address] Arlene Phillips MD 5 10:56 AM CDT - 5 11:26 AM CDT Surgery [facility] 1 [facility] [place] [address] Abram Smith MD SIGMOID BIOPSY 5 Documentation [facility] [address] [facility] [address] Mailstop 02-98-537 [place] [address] Mariama Parisi RN 5 Surgical Prehabilitation and Readiness Subsequent Outreach [facility] Department of Surgery [address] [place] [address] Serge August CMA 5 Telephone [facility] Cardiology 4500 [facility] Floor 1, [address] [place] [address] Chris Hart MD 5 Orders Only [facility] Oncology [address] [facility] Floor 5 [place] [address] Landy Hooker RN Hilar cholangiocarcinoma (HCC) (Primary Dx) 5 6:12 PM CDT - 5 4:07 PM CDT Hospital Encounter [facility] 1 [place] [address] Gorge Contreras MD PhD Everardo Diaz MD Patel, MD Odalys Matthews, MD Sweta Felipe Geneva Enriquez, MD Menon, Priya, MD Hoyt, Smith Hinton MD Diarrhea, unspecified type (Primary Dx); FTT (failure to thrive) in adult; Acute hypoxemic respiratory failure (HCC); Hypoxia Discharge Disposition: Discharge to home or self care 5 3:53 PM CDT - 5 11:59 PM CDT Hospital Encounter [facility] [address] [place] [address] Discharge Disposition: Discharge to home or self care 5 2:54 PM CDT - 5 11:59 PM CDT Hospital Encounter [facility] ([facility]) [address] [place] [address] Other specified hypotension (Primary Dx); Nausea; Elevated INR Discharge Disposition: Discharge to home or self care 5 Results Follow-Up [facility] Cardiology 5[address] [facility] [address] [place] [address] Seema Mora, RN Protime-INR, aPTT 5 Telephone [facility] Oncology [facility] Floor 5 [place] [address] Landy Hooker RN 5 Telephone [facility] Gastroenterolog y [address] [place] [address] Medical Office Building 4, [address] [place] [address] Erin Dillard RN GI Preprocedure 5 Telephone [facility] [place] at [address] [address] Kait Marroquin, ASHLEY 5 7:24 PM CDT - 5 3:09 AM CDT Hospital Encounter [facility] ([facility]) [address] [place] [address] Nausea and vomiting, unspecified vomiting type (Primary Dx); Hilar cholangiocarcinoma (HCC) Discharge Disposition: Discharge to home or self care 5 Telephone [facility] Cancer Center at [address] [phone] Kait Marroquin, ASHLEY 5 Telephone [facility] Oncology [facility] Floor 5 [place] [address] Landy Hooker, ALMITA 5 Orders Only [facility] Oncology [facility] Floor 5 [place] [address] Lnady Hooker, RN Hand foot syndrome (Primary Dx); Hilar cholangiocarcinoma (HCC) 5 Anticoagulation Telephone Call [facility] Cardiology 1020 [facility] Medical Office Building [address] [place] [address] Chris Hart MD Paroxysmal atrial fibrillation (HCC) (Primary Dx) 5 1:15 PM CDT Ancillary Procedure [facility] [address] [facility] [address] [place] [address] Cardiac pacemaker in situ (Primary Dx); Sick sinus syndrome (HCC) 5 Telephone [facility] [address] [facility] [address] [address] Zane Richey III, MD 5 9:30 AM CDT Office Visit [facility] Gasteroenterolo gy 4921 [facility] 12th [place] [address] [place] [address] Jamin Posey MD Cholangiocarcinoma (HCC) (Primary Dx); Hilar cholangiocarcinoma (HCC) 5 11:30 AM CDT Telemedicine [facility] Radiation Oncology [address] [place] [address] [place] [address] Gorge Garza MD PhD Cholangiocarcinoma (HCC) (Primary Dx) 5 12:32 PM CDT Anesthesia Event [facility] [address] [place] [address] Arpan Guzman MD 5 11:30 AM CDT - 5 12:00 PM CDT Surgery [facility] [address] [place] [address] Chris Holcomb MD ENDO ENDOSCOPIC RETROGRADE CHOLANGIOPANCREATOGRAPHY REMOVE/CHANGE STENT [GI513] 5 10:17 AM CDT - 5 2:27 PM CDT Hospital Encounter [facility] [address] [place] [address] Chris Holcomb MD History of biliary stent insertion; Hilar cholangiocarcinoma (HCC) Discharge Disposition: Discharge to home or self care 5 Surgical Prehabilitation and Readiness Subsequent Outreach [facility] Department of Surgery [address] [place] [address] Serge August CMA 5 12:45 PM CDT Office Visit [facility] Oncology 10 [facility] [address] [place] [address] Gorge Contreras MD PhD Hilar cholangiocarcinoma (HCC) (Primary Dx) 5 Anticoagulation Telephone Call [facility] Cardiology 1020 [facility] Medical Office Building [address] [place] [address] Chris Hart MD Permanent atrial fibrillation (HCC) (Primary Dx) 5 2:25 PM CDT Lab [facility] ([facility]) [address] [place] [phone] 5 2:10 PM CDT Lab [facility] Advanced [facility] ([facility]) [address] [place] [phone] Hilar cholangiocarcinoma (HCC); Elevated INR 5 Results Follow-Up [facility] Cardiology [address] [place] [address] Advanced [facility] 8th [place] [address] [place] [address] Seema Mora RN Protime-INR 5 Telephone [facility] Gastroenterolog y 10[address] [facility] Medical Office Building 4, [address] [place] [address] Erin Dillard RN GI Preprocedure 5 Telephone [facility] [address] [facility] [address] Mailstop 61-12-225 [place], [place] [phone] Mei Cohen RN 5 Telephone [facility] 4590 [facility] 3401 Mailstop 85-04-279 [place] [address] Mei Aguilar, ALMITA 5 Anticoagulation Telephone Call [facility] Cardiology 1020 [facility] Medical Office Building [address] [place] [address] Chris Hart MD 5 3:50 PM CDT Lab [facility] ([facility]) [address] [place] [phone] Paroxysmal atrial fibrillation (HCC); High risk medication use; Prolonged INR 5 4:20 PM CDT Lab [facility] ([facility]) [address] [place] [phone] High risk medication use; Prolonged INR 5 Results Follow-Up [address] Medicine 8th [place] [address] [place] [address] Seema Mora, ALMITA Protime-INR 5 Telephone [facility] Cardiology [address] [place] [address] [address]th [place] [address] [place] [address] Chris Hart MD 5 Telephone [facility] Gastroenterolog y [address] [place] [address] Medical Office Building 4, [address] [place] [address] Yesika Major RN Test Results; recommendations 5 Telephone [facility] Cardiology [address] [place] [address] 8th [place] [address] [place] [phone] Seema Mora RN 5 Anticoagulation Telephone Call [facility] Cardiology 1020 [facility] Medical Office Building [address] [place] [address] Chris Hart MD Persistent atrial fibrillation (HCC) (Primary Dx) 5 Orders Only [facility] Scanning, Provider 5 Telephone [facility] Judy Us MD Test Results 5 Telephone Critical Care Medicine Brandon Walsh MD 5 Telephone [facility] Oncology 45[address] [facility] Floor 5 [place] [address] Landy Hooker, ALMITA 5 Telephone [facility] Cardiology 4921 [facility] Advanced [facility] 8th [place] [address] [place] [address] Chris Hart MD bp lower-holding amlodipine 5 Anticoagulation Telephone Call [facility] Cardiology 1020 [facility] Medical Office Building [address] [place] [address] Chris Hart MD 5 Telephone Critical Care Medicine Brandon Walsh MD 5 Telephone [facility] 4590 [facility] 3401 [facility] 05-33-235 [place] [address] Mei Cohen, ALMITA 5 Surgical Prehabilitation and Readiness Subsequent Outreach [facility] Department of Surgery [address] [place] [phone] Serge August CMA 5 Documentation [facility] [address] [facility] [address] [facility] 73-29-074 [place] [address] Mei Cohen, ALMITA 5 Telephone [facility] 4590 [facility] [address] [place] [address] 55-70-408 [place] [address] Mei Cohen, ALMITA 5 1:15 PM CDT Clinical Support [facility] Center at [facility] 10 [place] [address] Hilar cholangiocarcinoma (HCC) 5 12:45 PM CDT Office Visit [facility] Oncology 10 [facility] [address] [place] [address] Gorge Contreras MD PhD Hilar cholangiocarcinoma (HCC) (Primary Dx) 5 11:45 AM CDT Clinical Support [facility] at [facility] 10 [place] [address] Hilar cholangiocarcinoma (HCC) 5 10:05 AM CDT - 5 11:59 PM CDT Hospital [facility]) [address] [place] [address] Hilar cholangiocarcinoma (HCC) Discharge Disposition: Discharge to home or self care 5 Documentation [facility] [address] [facility] [address] Mailstop 90-07-129 [place] [address] Nimisha Hauser 5 Documentation [facility] [address] [facility] [address] Mailstop 90-44-958 [place] [address] Nimisha Hauser ABO Verification 5 Telephone [facility] [address] [facility] [address] Mailstop 90-57-249 [place] [address] Mei Cohen, ALMITA 5 Telephone [facility] [address] [facility] [address] Mailstop 90-35-335 [place] [address] Mei Cohen, RN 5 Telephone [facility] [address] [facility] [address] Mailstop 90-71-438 [place] [address] Mei Cohen, RN 5 Telephone [facility] Cardiology 4921 [facility] Medicine 8th [place] [address] [place] [address] Chris Hart MD 5 Telephone [facility] [address] [facility] [address] Mailstop 90-30-254 [place] [address] Mei Cohen, RN 5 Anticoagulation Telephone Call [facility] Cardiology 45[address] [facility] Floor 1, [address] [place] [address] Seema Mora, RN Longstanding persistent atrial fibrillation (HCC) (Primary Dx) 5 Results Follow-Up [facility] [address] [facility] [address] Mailstop 05-57-300 [place] [address] Mei Cohen, ALMITA MRI Abdomen MRCP W WO Contrast from Last 3 Months Immunizations Immunization Administration Dates Next Due DT 02/09/2019 Hep A / Hep B 06/17/2024 Influenza, Quadrivalent, Hig h Dose, Preservative Free, Intrr 03/01/2020 Influenza, Quadrivalent, Spl it, Intramuscular 03/20/2021,02/29/2020 Influenza, Trivalent, Adjuva nted, Intramuscular 02/06/2016 Influenza, Trivalent, High D ose, Split, Preservative Free, Intramuscular 03/01/2020,02/24/2019,02/05/2018 Influenza, Unspecified 02/26/2022,02/17/2021,07/2015 Pfizer SARS-CoV-2 Monovalent Vaccination (12+ Yrs) PURPLE 11/20/2021,03/20/2021,07/17/2020,06/26 Pneumococcal Conjugate PCV 13 03/07/2020 Pneumococcal Conjugate Pcv20 10/10/2022 RSV Vaccine, Pref, Recombina nt, Subunit, Adjuvanted, PF, IM (Arexvy) 04/26/2023 Tetanus Toxoid, Unspecified 09/11/2007 ZOSTER LIVE 02/26/2022, 5,02/17/2013,05/06 Surgical History Surgery Date Site/Laterality Comments PA CHOLECYSTECTOMY 1989 KNEE SURGERY Right 1965 bone fragment removal, tendon repositioning COLONOSCOPY 2017 2005, 2016 ABLATION OF DYSRHYTHMIC FOCUS 09/09/2023 CARDIAC PACEMAKER PLACEMENT 04/16/20242021 PORT PLACEMENT CHEST >5 YEARS 12/09/2023 N/A CATARACT EXTRACTION Bilateral FINGER SURGERY 07/13/2016 Left index finger joint - no hardware ABDOMINAL SURGERY 04/16/2024 exploratory laparascopy ERCP 05/18/2024 multiple times with stents LAPAROSCOPY 04/16/2024 Robotic Assised diagnostic laparoscopy with Peritoneal Washings, Left diaphragm partial resection, segement 4B partial liver resection CHOLECYSTECTOMY Medical History Medical History Date Comments Allergies Fractures HTN (hypertension) Heart disease bradycardi HL (hearing loss) 2017 Sleep apnea under treatment Dizziness 2020 Tinnitus 2009 Abnormal ECG 2021 Arthritis 2014 Cataract surgery 2021 Depression mild, 1989 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, left ear 2014 Cancer (HCC) cholangiocarcino ma Atrial fibrillation (HCC) Mitral valve regurgitation Hyperlipidemia Pacemaker Cholelithiasis Cholangiocarcinoma (HCC) History of chemotherapy Dec 2023 Family History Medical History Relation Name Comments Arthritis Father Sulma Hearing loss Father Sulma Heart disease Father Sulma COPD Mother Elidia Heart disease Mother Elidia Hypertension Mother Elidia Family history of hypertension - (Added by TW Conv) Vision loss Mother Elidia Heart disease Sister 1 Vivian Hypertension Sister 1 Vivian Sleep apnea Sister 2 [place] Anesthesia problems Neg Hx Relation Name Status Comments Father Sulma Mother Elidia Sister 1 Vivian Sister 2 Chelsey Alive Social History Tobacco Use Types Packs/Day Years Used Date Smoking Tobacco: Former Cigarettes 0.3 23 1 968 - 1990 Pipe Cigars Smokeless Tobacco: Never Tobacco Cessation:Counseling Given: Not Answered OASIS D0700: Social Isolation Answer Da te [...] In the past 12 months has e [employer], oil, or water [employer] threatened to shut off services in your [...] How often do you attend chur or pentecostalism services? More than 4 times per year 08/24/2024 Do you belong to any clubs o r organizations such as muslim groups, unions, fraternal or athletic groups, or [...] Recorded PHQ-2 Total Score 0 03/16/2024 [facility] - Occupational [...] were you homeless or living in a usp (including now)? No 08/24/2024 Personal Safety Answer Date Recorded Have you ever been in or are you currently in a harmful physical or emotional relationship or is someone making you feel afraid or unsafe? 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 Gender Identity Male 12/06/2019 4:39 PM CDT Sexual Orientation Straight 12/06/2019 4: 39 PM CDT Obstetrics History Last Filed Vital Signs Vital Sign Reading Time Taken Comments Blood Pressure 122/59 10/13/2024 2:07 PM CDT Pulse 60 10/13/2024 2:07 PM CDT Temperature 36.5 C (97.7 F) 10/13/2024 2:07 PM CDT Respiratory Rate 18 10/13/2024 2:0 7 PM CDT Oxygen Saturation 96% 10/13/2024 2:07 PM CDT Inhaled Oxygen Concentration - - Weight 86.1 kg (189 lb 12.8 oz) 10/13/2024 9:57 AM CDT Height 177.8 cm (5' 10) 10/13/2024 9:57 AM CDT Body Mass Index 27.23 10/13/2024 9:57 AM CDT Plan of Treatment Upcoming Encounters Date Type Department Care Team (Latest Contact Info) Description 10/15/2024 11:00 AM CDT Hospital Encounter [facility] [address] [place] [phone] Chris Holcomb MD [address] [id number] History of biliary stent insertion 10/15/2024 11:00 AM CDT - 10/15/2024 11:30 AM CDT Surgery [facility] [address] [place] [phone] Chris Holcomb MD [address] [facility] [place] [address] ERCP Stent Exch INR mail lab at 0900 [[id number]] Scheduled Procedures Name Priority Associated Diagnoses Date/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) Health Maintenance Due Date Last Done Comments Albumin Creatinine Ratio, Urine 1949 Colon Cancer Screening-Colonoscopy 1950 Dilated Eye Exam 1949 Foot Exam 1950 Well Visit 65+ 2014 Zoster Vaccine (1 of 2) 04/23/2022 02/27/20 22, 05/06/2014, 02/17/2013, Additional history exists Covid-19 Vaccine (13 - Mixed Product risk season) 2024 02/04/2024, 02/17/2023, 02/16/2023, Additional history exists Hemoglobin A1C 12/20/2024 06/22/2024, 0207/2024, 03/24/2024, Additional history exists Depression Screening 03/15/2025 03/15/2024 Lipid Panel 06/08/2025 06/08/2024, 03/06, 11/15/2023, Additional history exists Fall Risk Assessment 09/07/2025 09/07/2024, 05/12/19 25 eGFR 10/07/2025 10/07/2024, 09/03, 09/11/2024, Additional history exists DTaP/Tdap/Td Vaccine (2 - Tdap) 02/09/2029 9 Pneumococcal vaccine 65+ Completed 10/10/2022, 11/0 06/2019 Influenza Vaccine Completed 02/04/2024, , 02/26/2022, Additional history exists Hepatitis C Screening Completed 06/08/2024, 024 Hepatitis B Screening Completed 06/17/2024, 025 Colon Cancer Screening-CT Colonography Discontinued 08/31/2024 Colon Cancer Screening-DNA Stool Discontinued 09/01/19 25 Colon Cancer Screening-FIT Discontinued 08/31/2024 Colon Cancer Screening-Sigmoidoscopy Discontinued 08/31/2024 Abdominal Aortic Aneurysm (A AA) Screen Completed 10/12/2024, 08/22/2024, 05/01/2024, Additional history exists Medical Devices Implanted Type Area Receipt And Report Clerk Device Identifier Shelf Expiration Date Model / Serial / Lot [employer] Vascade Mvp 6-12fr Venous Closure [id number] - [id number] - [id number] Implanted:Qty : 1 on 09/09/2023 by Zane Richey III, MD at [facility] 06/20/2025 800-612C- 10U / [id number] 26A / [id number] 26A [employer] Vascade Mvp 6-12fr Venous Closure [id number] - [id number] - [id number] Implanted:Qty : 1 on 09/09/2023 by Zane Richey III, MD at [facility] [employer] 06/20/2025 800-612C- 10U / [id number] 26A / [id number] 26A [employer] Vascade Mvp 6-12fr Venous Closure [id number] - [id number] - [id number] Implanted:Qty : 1 on 09/09/2023 by Zane Richey III, MD at [facility] [employer] 06/20/2025 800-612C- 10U / [id number] 26A / [id number] 26[address] [employer] 2088tc/58 Tendril Sts 6fr 58cm Is-1 Connector Active Fixation Bipolar Soft - [id number] - [id number] Implanted:Qty : 1 on 06/30/2021 by Zane Richey III, MD at [facility] Lead [employer] [id number] 03/05/2024 2088TC/58 / [id number] / [employer] 2088tc/52 [address]ril Sts 6fr 52cm Is-1 Connector Active Fixation Bipolar Soft - [id number] - [id number] Implanted:Qty : 1 on 06/30/2021 by Zane Richey III, MD at [facility] Lead [employer] [id number] 03/05/20248TC/52 / [id number] / [employer] [id number] Assurity Mri 87n80ra 2 Chamber Is-1 Connector Thk6mm Pacemaker - [id number] - [id number] Implanted:Qty : 1 on 06/30/2021 by Zane Richey III, MD at [facility] Pacemaker Left: Chest [employer] [id number] 11/02/2022 [id number] / [id number] / [employer] Maame Advanix 7fr 10cm Rapid Exchange Temporary Taper Tip Thin Wall 2 [id number] - [id number] Implanted:Qty : 1 on 08/07/2024 by Sherry Alberts DO at [facility] Stent N/A: Bile Duct [employer] Maame 05/26/2026 [id number] / / [id number] [employer] Maame Advanix 7fr 10cm Rapid Exchange Temporary Taper Tip Thin Wall 2 [id number] - [id number] Implanted:Qty : 1 on 08/07/2024 by Sherry Alberts DO at [facility] Stent N/A: Bile Duct [employer] Maame 05/26/2026 [id number] / / [id number] Ang[employer] Excela Low Porfile Power Port 8fr 1.6mm 1 Lumen [id number] - [id number] Implanted:Qty : 1 on 12/09/2023 at [facility] [employer] 09/18/2028 [id number] / / [id number] Explanted Type Area Receipt And Report Clerk Device Identifier Shelf Expiration Date Model / Serial / Lot Inb[employer] Inc Farrell Flexi-Stent 5fr 7cm Small Pigtail Flexible .035in Stent 6554 - [id number] Implanted:Qty: 1 on 11/15/2023 by Chris Holcomb MD at [facility] Explanted:Qty: 1 on 01/13/2024 at [facility] Stent Pancreas [employer] Inc 06/06/2028 [id number] / / [id number] Description:Not present upon start of procedure [employer] Cook Zimmon 7fr 10cm Biliary Double Pigtail Stent [id number] - [id number] Implanted:Qty: 1 on 11/15/2023 by Chris Holcomb MD at [facility] Explanted:Qty: 1 on 01/13/2024 by Sherry Alberts DO at [facility] Stent Bile Duct [employer] 07/08/2026 [id number] / / [id number] [employer] Maame Advanix 7fr 10cm Rapid Exchange Temporary Taper Tip Thin Wall 2 [id number] - [id number] Implanted:Qty: 1 on 01/13/2024 by Chris Holcomb MD at [facility] Explanted:Qty: 1 on 03/18/2024 by Chris Holcomb MD at [facility] Stent N/A: Bile Duct [employer] Maame [id number] 10/20/2025 [id number] / / [id number] [employer]ame Advanix 7fr 10cm Rapid Exchange Temporary Taper Tip Thin Wall 2 [id number] - [id number] Implanted:Qty: 1 on 01/13/2024 by Sherry Alberts DO at [facility] Explanted:Qty: 1 on 03/18/2024 by Chris Holcomb MD at [facility] Stent N/A: Bile Duct [employer] Maame [id number] 11/18/2025 [id number] / / [id number] [employer] Maame Advanix 7fr 10cm Rapid Exchange Temporary Taper Tip Thin Wall 2 [id number] - [id number] Implanted:Qty: 1 on 03/18/2024 by Chris Holcomb MD at [facility] Explanted:Qty: 1 on 08/07/2024 by Sherry Alberts DO at [facility] Stent N/A: Bile Duct [employer] Maame 01/12/2026 [id number] / / [id number] [employer]ame Advanix 7fr 12cm Rapid Exchange Temporary Taper Tip Thin Wall 2 [id number] - [id number] Implanted:Qty: 1 on 03/18/2024 by Chris Holcomb MD at [facility] Explanted:Qty: 1 on 08/07/2024 by Sherry Alberts DO at [facility] Stent N/A: Bile Duct [employer] Maame 01/06/2026 [id number] / / [id number] Description:Not present on t his exam [employer] Maame Advanix 7fr 10cm Rapid Exchange Temporary Taper Tip Thin Wall 2 [id number] - [id number] Implanted:Qty: 1 on 05/18/2024 by Chris Holcomb MD at [facility] Explanted:Qty: 1 on 08/07/2024 by Sherry Alberts DO at [facility] Stent N/A: Bile Duct [employer] Maame 03/17/2026 [id number] / / [id number] [employer] Maame Advanix 7fr 10cm Rapid Exchange Temporary Taper Tip Thin Wall 2 [id number] - [id number] Implanted:Qty: 1 on 05/18/2024 by Chris Holcomb MD at [facility] Explanted:Qty: 1 on 08/07/2024 at [facility] Stent N/A: Bile Duct [employer] Maame 03/18/2026 [id number] / / [id number] Description:Not present on t his exam [employer] Zimmon Od7 Fr L15 Cm Tapered Tip 2 Pigtail Curve Stent Biliary Polyethylene Sterile Disposable Purple [id number] - [id number] Implanted:Qty: 1 on 11/15/2023 by Chris Holcomb MD at [facility] Explanted:Qty: 1 on 01/13/2024 by Sherry Alberts DO at [facility] Bile Duct [employer] Inc 07/03/2026 [id number] / / [id number] Procedures Procedure Name Priority Date/Time Associated Diagnosis Comments CT CHEST ABDOMEN PELVIS W CONTRAST Schedule Routine, Read Routine (OP Routine) 10/12/2024 10:39 AM CDT 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) EGFR STAT 10/07/2024 9:11 AM CDT Hilar cholangiocarcinoma (HCC) DIFFERENTIAL AUTO STAT 10/07/2024 9:11 AM CDT Hilar cholangiocarcinoma (HCC) PROTIME-INR Routine 10/07/2024 9:11 AM CDT Hilar cholangiocarcinoma (HCC) CBC WITH AUTO DIFFERENTIAL STAT 10/07/2024 9:11 AM CDT Hilar cholangiocarcinoma (HCC) COMPREHENSIVE METABOLIC PANEL STAT 10/07/2024 9:11 AM CDT Hilar cholangiocarcinoma (HCC) CANCER ANTIGEN 19-9 Routine 10/07/2024 9:11 AM CDT Hilar cholangiocarcinoma (HCC) PROTIME-INR Routine 09/30/2024 2:30 PM CDT Longstanding persistent atrial fibrillation (HCC) PROTIME-INR Routine 09/23/2024 11:21 AM CDT Longstanding persistent atrial fibrillation (HCC) EGFR STAT 09/16/2024 8:08 AM CDT Hilar cholangiocarcinoma (HCC) DIFFERENTIAL AUTO STAT 09/16/2024 8:08 AM CDT Hilar cholangiocarcinoma (HCC) PROTIME-INR Routine 09/16/2024 8:08 AM CDT Paroxysmal atrial fibrillation (HCC) High risk medication use Prolonged INR CBC WITH AUTO DIFFERENTIAL STAT 09/16/2024 8:08 AM CDT Hilar cholangiocarcinoma (HCC) COMPREHENSIVE METABOLIC PANEL STAT 09/16/2024 8:08 AM CDT Hilar cholangiocarcinoma (HCC) CANCER ANTIGEN 19-9 Routine 09/16/2024 8:08 AM CDT Hilar cholangiocarcinoma (HCC) COPY(IES) SENT TO: Routine 09/11/2024 10:40 AM CDT PROTIME-INR Routine 09/11/2024 10:40 AM CDT Hilar cholangiocarcinoma (HCC) COMPREHENSIVE METABOLIC PANEL STAT 09/11/2024 10:40 AM CDT Hilar cholangiocarcinoma (HCC) CBC WITH AUTO DIFFERENTIAL Routine 09/11/2024 10:40 AM CDT Hilar cholangiocarcinoma (HCC) SCAN - LABS 09/11/2024 EGFR STAT 09/09/2024 7:32 AM CDT Hilar cholangiocarcinoma (HCC) DIFFERENTIAL AUTO STAT 09/09/2024 7:32 AM CDT Hilar cholangiocarcinoma (HCC) PROTIME-INR Routine 09/09/2024 7:32 AM CDT Paroxysmal atrial fibrillation (HCC) High risk medication use Prolonged INR CANCER ANTIGEN 19-9 Routine 09/09/2024 7:32 AM CDT Hilar cholangiocarcinoma (HCC) COMPREHENSIVE METABOLIC PANEL STAT 09/09/2024 7:32 AM CDT Hilar cholangiocarcinoma (HCC) CBC WITH AUTO DIFFERENTIAL STAT 09/09/2024 7:32 AM CDT Hilar cholangiocarcinoma (HCC) ECG 12-LEAD STAT 09/07/2024 11:34 AM CDT XR CHEST 1 VIEW ED Urgent/IP Urgent 09/07/2024 8:01 AM CDT CRITICAL RESULT CALLBACK CHEMISTRY STAT 09/07/2024 5:39 AM CDT BLOOD GAS, ARTERIAL STAT 09/07/2024 5:39 AM CDT EGFR Routine 09/07/2024 2:43 AM CDT CRITICAL RESULT CALLBACK CHEMISTRY STAT 09/07/2024 2:43 AM CDT DIFFERENTIAL AUTO Routine 09/07/2024 2:43 AM CDT BLOOD GAS, ARTERIAL STAT 09/07/2024 2:43 AM CDT PROTIME-INR Routine 09/07/2024 2:43 AM CDT PHOSPHORUS Routine 09/07/2024 2:43 AM CDT COMPREHENSIVE METABOLIC PANEL Routine 09/07/2024 2:43 AM CDT CBC WITH AUTO DIFFERENTIAL Routine 09/07/2024 2:43 AM CDT APTT Routine 09/07/2024 2:43 AM CDT LACTATE DEHYDROGENASE Routine 09/07/2024 2:43 AM CDT URIC ACID Routine 09/07/2024 2:43 AM CDT TYPE AND SCREEN Timed 09/07/2024 2:43 AM CDT HOME O2 EVAL (DESATURATION SCREEN) Routine 09/06/2024 11:02 AM CDT EGFR Routine 09/06/2024 12:41 AM CDT DIFFERENTIAL AUTO Routine 09/06/2024 12:41 AM CDT PROTIME-INR Routine 09/06/2024 12:41 AM CDT PHOSPHORUS Routine 09/06/2024 12:41 AM CDT COMPREHENSIVE METABOLIC PANEL Routine 09/06/2024 12:41 AM CDT CBC WITH AUTO DIFFERENTIAL Routine 09/06/2024 12:41 AM CDT EGFR Routine 09/05/2024 1:43 AM CDT DIFFERENTIAL AUTO Routine 09/05/2024 1:43 AM CDT PROTIME-INR Routine 09/05/2024 1:43 AM CDT PHOSPHORUS Routine 09/05/2024 1:43 AM CDT COMPREHENSIVE METABOLIC PANEL Routine 09/05/2024 1:43 AM CDT CBC WITH AUTO DIFFERENTIAL Routine 09/05/2024 1:43 AM CDT XR CHEST 1 VIEW ED Urgent/IP Urgent 09/04/2024 11:51 AM CDT TRANSTHORACIC ECHO (TTE) LIMITED/FOLLOW UP W LTD DOPPLER/CF W CONTRAST Routine 09/04/2024 9:52 AM CDT EGFR Routine 09/04/2024 12:25 AM CDT DIFFERENTIAL AUTO Routine 09/04/2024 12:25 AM CDT PRO B-TYPE NATRIURETIC PEPTIDE Routine 09/04/2024 12:25 AM CDT PROTIME-INR Routine 09/04/2024 12:25 AM CDT PHOSPHORUS Routine 09/04/2024 12:25 AM CDT COMPREHENSIVE METABOLIC PANEL Routine 09/04/2024 12:25 AM CDT CBC WITH AUTO DIFFERENTIAL Routine 09/04/2024 12:25 AM CDT US VEIN DUPLEX LOWER EXTREMITY BILATERAL COMPLETE IP Routine 09/03/2024 3:52 PM CDT XR CHEST 1 VIEW Timed 09/03/2024 6:37 AM CDT EGFR Routine 09/03/2024 12:59 AM CDT DIFFERENTIAL AUTO Routine 09/03/2024 12:59 AM CDT MAGNESIUM Routine 09/03/2024 12:59 AM CDT PROTIME-INR Routine 09/03/2024 12:59 AM CDT PHOSPHORUS Routine 09/03/2024 12:59 AM CDT COMPREHENSIVE METABOLIC PANEL Routine 09/03/2024 12:59 AM CDT CBC WITH AUTO DIFFERENTIAL Routine 09/03/2024 12:59 AM CDT LACTATE DEHYDROGENASE Routine 09/03/2024 12:59 AM CDT URIC ACID Routine 09/03/2024 12:59 AM CDT TYPE AND SCREEN Timed 09/03/2024 12:59 AM CDT EGFR Routine 09/02/2024 12:41 AM CDT DIFFERENTIAL AUTO Routine 09/02/2024 12:41 AM CDT MAGNESIUM Routine 09/02/2024 12:41 AM CDT PROTIME-INR Routine 09/02/2024 12:41 AM CDT PHOSPHORUS Routine 09/02/2024 12:41 AM CDT COMPREHENSIVE METABOLIC PANEL Routine 09/02/2024 12:41 AM CDT CBC WITH AUTO DIFFERENTIAL Routine 09/02/2024 12:41 AM CDT US VEIN DUPLEX UPPER EXTREMITY LEFT LIMITED IP Routine 09/01/2024 2:27 PM CDT EGFR Routine 09/01/2024 3:21 AM CDT DIFFERENTIAL AUTO Routine 09/01/2024 3:21 AM CDT MAGNESIUM Routine 09/01/2024 3:21 AM CDT PROTIME-INR Routine 09/01/2024 3:21 AM CDT PHOSPHORUS Routine 09/01/2024 3:21 AM CDT COMPREHENSIVE METABOLIC PANEL Routine 09/01/2024 3:21 AM CDT CBC WITH AUTO DIFFERENTIAL Routine 09/01/2024 3:21 AM CDT XR CHEST 1 VIEW ED Urgent/IP Urgent 08/31/2024 10:37 PM CDT SURGICAL PATHOLOGY Routine 08/31/2024 11:47 AM CDT Diarrhea, unspecified type SIGMOID BIOPSY 08/31/2024 11:35 AM CDT Diarrhea, unspecified type FLEXIBLE SIGMOIDOSCOPY 08/31/2024 11:26 AM CDT POTASSIUM, WHOLE BLOOD Timed 08/31/2024 6:44 AM CDT EGFR Routine 08/31/2024 2:34 AM CDT DIFFERENTIAL AUTO Routine 08/31/2024 2:34 AM CDT PROTIME-INR Routine 08/31/2024 2:34 AM CDT PHOSPHORUS Routine 08/31/2024 2:34 AM CDT COMPREHENSIVE METABOLIC PANEL Routine 08/31/2024 2:34 AM CDT CBC WITH AUTO DIFFERENTIAL Routine 08/31/2024 2:34 AM CDT APTT Routine 08/31/2024 2:34 AM CDT LACTATE DEHYDROGENASE Routine 08/31/2024 2:34 AM CDT URIC ACID Routine 08/31/2024 2:34 AM CDT TYPE AND SCREEN Timed 08/31/2024 2:34 AM CDT PROTIME-INR Routine 08/30/2024 4:30 AM CDT MAGNESIUM Routine 08/30/2024 2:34 AM CDT EGFR Routine 08/30/2024 2:34 AM CDT DIFFERENTIAL AUTO Routine 08/30/2024 2:34 AM CDT PHOSPHORUS Routine 08/30/2024 2:34 AM CDT COMPREHENSIVE METABOLIC PANEL Routine 08/30/2024 2:34 AM CDT CBC WITH AUTO DIFFERENTIAL Routine 08/30/2024 2:34 AM CDT EGFR Routine 08/29/2024 1:30 AM CDT DIFFERENTIAL AUTO Routine 08/29/2024 1:30 AM CDT PROTIME-INR Routine 08/29/2024 1:30 AM CDT PHOSPHORUS Routine 08/29/2024 1:30 AM CDT COMPREHENSIVE METABOLIC PANEL Routine 08/29/2024 1:30 AM CDT CBC WITH AUTO DIFFERENTIAL Routine 08/29/2024 1:30 AM CDT PROTIME-INR Routine 08/28/2024 2:30 PM CDT TRANSFUSE PLASMA Timed 08/28/2024 11:03 AM CDT PREPARE PLASMA Timed 08/28/2024 10:04 AM CDT POTASSIUM, WHOLE BLOOD STAT 08/28/2024 9:19 AM CDT PROTIME-INR STAT 08/28/2024 9:19 AM CDT TRANSFUSE PLASMA Timed 08/28/2024 7:20 AM CDT PREPARE PLASMA Timed 08/28/2024 6:40 AM CDT PROTIME-INR STAT 08/28/2024 6:05 AM CDT TRANSFUSE PLASMA Timed 08/28/2024 3:30 AM CDT PREPARE PLASMA Timed 08/28/2024 2:12 AM CDT EGFR Routine 08/28/2024 1:32 AM CDT DIFFERENTIAL AUTO Routine 08/28/2024 1:32 AM CDT PROTIME-INR Routine 08/28/2024 1:32 AM CDT PHOSPHORUS Routine 08/28/2024 1:32 AM CDT COMPREHENSIVE METABOLIC PANEL Routine 08/28/2024 1:32 AM CDT CBC WITH AUTO DIFFERENTIAL Routine 08/28/2024 1:32 AM CDT ROTAVIRUS ANTIGEN Routine 08/27/2024 10:04 AM CDT EGFR Routine 08/27/2024 12:29 AM CDT DIFFERENTIAL AUTO Routine 08/27/2024 12:29 AM CDT MAGNESIUM Routine 08/27/2024 12:29 AM CDT PROTIME-INR Routine 08/27/2024 12:29 AM CDT PHOSPHORUS Routine 08/27/2024 12:29 AM CDT COMPREHENSIVE METABOLIC PANEL Routine 08/27/2024 12:29 AM CDT CBC WITH AUTO DIFFERENTIAL Routine 08/27/2024 12:29 AM CDT LACTATE DEHYDROGENASE Routine 08/27/2024 12:29 AM CDT URIC ACID Routine 08/27/2024 12:29 AM CDT TYPE AND SCREEN Timed 08/27/2024 12:29 AM CDT PROTIME-INR STAT 08/26/2024 5:32 PM CDT EGFR Routine 08/26/2024 2:08 AM CDT DIFFERENTIAL AUTO Routine 08/26/2024 2:08 AM CDT MAGNESIUM Routine 08/26/2024 2:08 AM CDT PROTIME-INR Routine 08/26/2024 2:08 AM CDT PHOSPHORUS Routine 08/26/2024 2:08 AM CDT COMPREHENSIVE METABOLIC PANEL Routine 08/26/2024 2:08 AM CDT CBC WITH AUTO DIFFERENTIAL Routine 08/26/2024 2:08 AM CDT EGFR Routine 08/25/2024 2:06 AM CDT DIFFERENTIAL AUTO Routine 08/25/2024 2:06 AM CDT PROTIME-INR Routine 08/25/2024 2:06 AM CDT PHOSPHORUS Routine 08/25/2024 2:06 AM CDT COMPREHENSIVE METABOLIC PANEL Routine 08/25/2024 2:06 AM CDT CBC WITH AUTO DIFFERENTIAL Routine 08/25/2024 2:06 AM CDT EGFR Routine 08/24/2024 3:33 AM CDT DIFFERENTIAL AUTO Routine 08/24/2024 3:33 AM CDT PHOSPHORUS Routine 08/24/2024 3:33 AM CDT COMPREHENSIVE METABOLIC PANEL Routine 08/24/2024 3:33 AM CDT CBC WITH AUTO DIFFERENTIAL Routine 08/24/2024 3:33 AM CDT PROTIME-INR Routine 08/24/2024 3:33 AM CDT APTT Routine 08/24/2024 3:33 AM CDT LACTATE DEHYDROGENASE Routine 08/24/2024 3:33 AM CDT URIC ACID Routine 08/24/2024 3:33 AM CDT TYPE AND SCREEN Timed 08/24/2024 3:33 AM CDT CRITICAL RESULT CALLBACK HEMATOLOGY STAT 08/23/2024 8:31 AM CDT THROMBIN TIME STAT 08/23/2024 8:31 AM CDT APTT STAT 08/23/2024 8:31 AM CDT PROTIME-INR STAT 08/23/2024 8:31 AM CDT EGFR Routine 08/23/2024 12:33 AM CDT DIFFERENTIAL AUTO Routine 08/23/2024 12:33 AM CDT PHOSPHORUS Routine 08/23/2024 12:33 AM CDT COMPREHENSIVE METABOLIC PANEL Routine 08/23/2024 12:33 AM CDT CBC WITH AUTO DIFFERENTIAL Routine 08/23/2024 12:33 AM CDT MISCELLANEOUS MOLECULAR SEND-OUT REQUEST Routine 08/22/2024 3:[address] CHEST ABDOMEN PELVIS W CONTRAST IP Routine 08/22/2024 10:08 AM CDT URINALYSIS, MICROSCOPIC ONLY Routine 08/22/2024 6:20 AM CDT URINALYSIS AND REFLEX TO MICROSCOPIC AND CULTURE Routine 08/22/2024 6:20 AM CDT DIFFERENTIAL AUTO Routine 08/22/2024 2:30 AM CDT CBC WITH AUTO DIFFERENTIAL Routine 08/22/2024 2:30 AM CDT EGFR Routine 08/22/2024 12:28 AM CDT CRITICAL RESULT CALLBACK HEMATOLOGY Routine 08/22/2024 12:28 AM CDT THYROID FUNCTION CASCADE Routine 08/22/2024 12:28 AM CDT VITAMIN B12 Routine 08/22/2024 12:28 AM CDT PROTIME-INR Routine 08/22/2024 12:28 AM CDT APTT Routine 08/22/2024 12:28 AM CDT LACTATE DEHYDROGENASE Routine 08/22/2024 12:28 AM CDT URIC ACID Routine 08/22/2024 12:28 AM CDT TYPE AND SCREEN Timed 08/22/2024 12:28 AM CDT PHOSPHORUS Routine 08/22/2024 12:28 AM CDT COMPREHENSIVE METABOLIC PANEL Routine 08/22/2024 12:28 AM CDT INFECTION PREVENTION VRE CULTURE Routine 08/21/2024 9:37 PM CDT NOROVIRUS PCR Routine 08/21/2024 9:37 PM CDT CYTOMEGALOVIRUS (CMV) DNA, QUANT GEN LAB Routine 08/21/2024 9:37 PM CDT CRYPTOSPORIDIUM AND GIARDIA ANTIGEN ASSAY Routine 08/21/2024 9:37 PM CDT STOOL CULTURE Routine 08/21/2024 9:37 PM CDT C. DIFFICILE TESTING Routine 08/21/2024 9:37 PM CDT XR CHEST 1 VIEW ED Urgent/IP Urgent 08/21/2024 4:43 PM CDT RESPIRATORY PATHOGEN PANEL STAT 08/21/2024 4:08 PM CDT CRP (ACUTE PHASE) STAT 08/21/2024 3:52 PM CDT EGFR STAT 08/21/2024 3:52 PM CDT DIFFERENTIAL AUTO STAT 08/21/2024 3:52 PM CDT COMPREHENSIVE METABOLIC PANEL STAT 08/21/2024 3:52 PM CDT CBC WITH AUTO DIFFERENTIAL STAT 08/21/2024 3:52 PM CDT POC BLOOD GAS AND CHEMISTRIES, ARTERIAL Routine 08/21/2024 3:50 PM CDT CRITICAL RESULT CALLBACK HEMATOLOGY STAT 08/21/2024 3:45 PM CDT THROMBIN TIME STAT 08/21/2024 3:45 PM CDT APTT STAT 08/21/2024 3:45 PM CDT PROTIME-INR STAT 08/21/2024 3:45 PM CDT BLOOD CULTURE STAT 08/21/2024 3:45 PM CDT BLOOD CULTURE STAT 08/21/2024 3:45 PM CDT URINALYSIS AND REFLEX TO MICROSCOPIC Routine 08/20/2024 1:27 AM CDT URINE CULTURE STAT 08/20/2024 1:27 AM CDT POC BLOOD GAS AND CHEMISTRIES, ARTERIAL Routine 08/19/2024 9:48 PM CDT ECG 12-LEAD Routine 08/19/2024 9:34 PM CDT MAGNESIUM Routine 08/19/2024 9:03 PM CDT PHOSPHORUS Routine 08/19/2024 9:03 PM CDT EGFR Routine 08/19/2024 9:03 PM CDT DIFFERENTIAL AUTO Routine 08/19/2024 9:03 PM CDT LIPASE Routine 08/19/2024 9:03 PM CDT AMYLASE Routine 08/19/2024 9:03 PM CDT LACTATE DEHYDROGENASE Routine 08/19/2024 9:03 PM CDT COMPREHENSIVE METABOLIC PANEL Routine 08/19/2024 9:03 PM CDT CBC WITH AUTO DIFFERENTIAL Routine 08/19/2024 9:03 PM CDT RESPIRATORY PATHOGEN PANEL Routine 08/19/2024 9:03 PM CDT DEVICE CHECK - REMOTE Routine 08/17/2024 10:56 AM CDT Sick sinus syndrome (HCC) PROTIME-INR Routine 08/17/2024 10:34 AM CDT Longstanding persistent atrial fibrillation (HCC) FL ERCP BILIARY DUCT IP Routine 08/07/2024 3:03 PM CDT ERCP IP Routine 08/07/2024 1:05 PM CDT History of biliary stent insertion Hilar cholangiocarcinoma (HCC) ERCP IP Routine 08/07/2024 1:05 PM CDT History of biliary stent insertion Hilar cholangiocarcinoma (HCC) ERCP IP Routine 08/07/2024 1:05 PM CDT History of biliary stent insertion Hilar cholangiocarcinoma (HCC) RAD S AND I BILIARY DUCTAL SYSTEM 08/07/2024 12:33 PM CDT History of biliary stent insertion Hilar cholangiocarcinoma (HCC) ERCP 08/07/2024 11:21 AM CDT EGFR STAT 08/03/2024 11:36 AM CDT Hilar cholangiocarcinoma (HCC) DIFFERENTIAL AUTO STAT 08/03/2024 11:36 AM CDT Hilar cholangiocarcinoma (HCC) CANCER ANTIGEN 19-9 Routine 08/03/2024 11:36 AM CDT Hilar cholangiocarcinoma (HCC) COMPREHENSIVE METABOLIC PANEL STAT 08/03/2024 11:36 AM CDT Hilar cholangiocarcinoma (HCC) CBC WITH AUTO DIFFERENTIAL STAT 08/03/2024 11:36 AM CDT Hilar cholangiocarcinoma (HCC) PROTIME-INR Routine 08/03/2024 11:36 AM CDT Elevated INR PROTIME-INR Routine 07/31/2024 2:11 PM CDT Paroxysmal atrial fibrillation (HCC) High risk medication use Prolonged INR POCT INR Routine 07/29/2024 4:29 PM CDT Persistent atrial fibrillation (HCC) CRITICAL RESULT CALLBACK HEMATOLOGY Routine 07/29/2024 2:31 PM CDT High risk medication use Prolonged INR PROTIME-INR Routine 07/29/2024 2:31 PM CDT High risk medication use Prolonged INR PROTIME-INR Routine 07/29/2024 PROTIME-INR Routine 07/27/2024 9:50 AM CDT Longstanding persistent atrial fibrillation (HCC) SCAN - LABS 07/27/2024 PROTIME-INR Routine 07/22/2024 9:33 AM CDT Longstanding persistent atrial fibrillation (HCC) PROTIME-INR Routine 07/14/2024 1:29 PM CDT Hilar cholangiocarcinoma (HCC) EGFR STAT 07/14/2024 11:59 AM CDT Hilar cholangiocarcinoma (HCC) DIFFERENTIAL AUTO STAT 07/14/2024 11:59 AM CDT Hilar cholangiocarcinoma (HCC) CANCER ANTIGEN 19-9 Routine 07/14/2024 11:59 AM CDT Hilar cholangiocarcinoma (HCC) COMPREHENSIVE METABOLIC PANEL STAT 07/14/2024 11:59 AM CDT Hilar cholangiocarcinoma (HCC) CBC WITH AUTO DIFFERENTIAL STAT 07/14/2024 11:59 AM CDT Hilar cholangiocarcinoma (HCC) CT 3-D RENDERING ON SEPARATE MODALITY W POST PROCESSING Schedule Routine, Read Routine (OP Routine) 07/14/2024 10:32 AM CDT Hilar cholangiocarcinoma (HCC) HEMOGLOBIN A1C Routine 06/22/2024 2:10 PM EMERGENCY MEDICINE MEDICAL DIRECTOR Moderate aortic regurgitation Nonrheumatic mitral valve regurgitation Abnormal finding of blood chemistry, unspecified HEPATITIS C ANTIBODY Routine 06/08/2024 7:28 AM EMERGENCY MEDICINE MEDICAL DIRECTOR Hilar cholangiocarcinoma (HCC) LIPID PANEL Routine 06/08/2024 7:28 AM EMERGENCY MEDICINE MEDICAL DIRECTOR Hilar cholangiocarcinoma (HCC) from Last 3 Months or Most Recently Relevant to Health Maintenance Results * CT Chest Abdomen Pelvis W [...] disease in the chest. Electronically signed by: Elzbieta Reno 10/12/2024 11:05 AM CDT EXAMINATION: CT CHEST [...] chest. Electronically signed by: Cheri Craig M.D. Jamin Posey MD IMG CT PROCEDURES Final Res ult * eGFR (10/07/2024 9:11 AM CDT) eGFR 89 >=60 mL/min/1. 73 m2 Comment: Interpretive Data Reference Interval Normal >/= 90 mL/min/1.73m2 Mildly decreased* 60 - 89 mL/min/1.73m2 Mildly to moderately decreased 45 - 59 mL/min/1.73m2 Moderately to severely decreased 30 - 44 mL/min/1.73m2 Severely decreased 15 - 29 mL/min/1.73m2 Kidney Failure < 15 mL/min/1.73m2 *Relative to young adult level Estimated glomerular filtration rate is determined by the 2020 CKD-EPI equation recommended by the National Kidney Foundation (A Unifying Approach to GFR Estimation: Recommendations of the NKF-ASK Task Force on Reassessing the Inclusion of Race in Diagnosing Kidney Disease, JASN 2020). The CKD-EPI equation should not be used for patients with unstable renal function and has not been validated in children and those over 70. Current interpretive data was last reviewed 2021. Testing performed by: [facility], [address] [facility], [place] [address] Blood 10/07/2024 9:11 AM CDT 10/07/2024 9:57 AM CDT us Agustina Li MD PhD LAB BLOOD ORDERABLES Final Result [facility] [address] [employer] [facility]. [place] [address] * (ABNORMAL) Differential, auto (10/07/2024 9:11 AM CDT) Neutrophil abs 6.76(H) 1.50 - 6.50 K/cumm Comment:Testing performed by : [facility], [address] [place] [address] Imm gran abs 0.06 0.00 - 0.10 K/cumm CERNER BJWCH Comment:Testing performed by : [facility], [address] [place] [address] Lymphocyte abs 0.76(L) 0.80 - 3.30 K/cumm CERNER BJWCH Comment:Testing performed by : [place] [address], [address] [place] [address] Monocyte abs 0.82(H) 0.20 - 0.80 K/cumm CERNER BJWCH Comment:Testing performed by : [facility], [address] [place] [address] Eosinophil abs 0.04 0.00 - 0.50 K/cumm CERNER BJWCH Comment:Testing performed by : [facility], [address] [place] [address] Basophil abs 0.04 0.00 - 0.10 K/cumm CERNER BJWCH Comment:Testing performed by : [place] [address], [address] [place] [address] Neutrophil pct 79.6 % CERNER BJWCH Comment: Interpretive Data Percent cell count reference ranges are not reported, since discordance with absolute values may lead to misinterpretation of CBC data. Current Interpretive Data was last revised on 2017. Testing performed by: [facility], [address] [place] [address] Imm gran pct 0.7 % CERNER BJWCH Comment: Interpretive Data Percent cell count reference ranges are not reported, since discordance with absolute values may lead to misinterpretation of CBC data. Current Interpretive Data was last revised on 2017. Testing performed by: [facility], [address] [place] [address] Lymphocyte pct 9.0 % CERKERI COREYWCH Comment: Interpretive Data Percent cell count reference ranges are not reported, since discordance with absolute values may lead to misinterpretation of CBC data. Current Interpretive Data was last revised on 2017. Testing performed by: [facility], [facility], [address] [place] [address] Monocyte pct 9.7 % CERKERI COREYWCH Comment: Interpretive Data Percent cell count reference ranges are not reported, since discordance with absolute values may lead to misinterpretation of CBC data. Current Interpretive Data was last revised on 2017. Testing performed by: [facility], [facility], [address] [place] [address] Eosinophil pct 0.5 % CERKERI STAPLETON Comment: Interpretive Data Percent cell count reference ranges are not reported, since discordance with absolute values may lead to misinterpretation of CBC data. Current Interpretive Data was last revised on 2017. Testing performed by: [facility], [facility], [address] [place] [address] Basophil pct 0.5 % CERKERI STAPLETON Comment: Interpretive Data Percent cell count reference ranges are not reported, since discordance with absolute values may lead to misinterpretation of CBC data. Current Interpretive Data was last revised on 2017. Testing performed by: [facility], [facility], [address] [place] [address] Blood 10/07/2024 9:11 AM CDT 10/07/2024 9:13 AM CDT us Agustina Li MD PhD LAB BLOOD ORDERABLES Final Result [facility] [address] [facility]. [place] [address] * (ABNORMAL) CBC with auto differential (10/07/2024 9:11 AM CDT) WBC 8.48 3.80 - 9.90 K/cumm Comment:Testing performed by : [place] [address], [address] [place] [address] Hgb 10.4(L) 13.0 - 17.5 g/dL CERNER BJWCH Comment:Testing performed by : [place] [address], [address] [place] [address] Hct 32.4(L) 38.9 - 50.3 % CERNER BJWCH Comment:Testing performed by : [place] [address], [address], [place] [address] Plt 212 150 - 400 K/cumm CERNER BJWCH Comment:Testing performed by : [place] [address], [address] [place] [address] MPV 9.5 9.1 - 12.3 fL CERNER BJWCH Comment:Testing performed by : [place] [address], [place] [address] RBC 3.25(L) 4.30 - 5.80 M/cumm CERNER BJWCH Comment:Testing performed by : [address], [place] [address] MCV 99.7(H) 81.3 - 96.4 fL CERNER BJWCH Comment:Testing performed by : [place] [address], [address], [place] [address] MCH 32.0 27.1 - 33.3 pg CERNER BJWCH Comment:Testing performed by : [place] [address], [address] [place] [address] MCHC 32.1(L) 32.3 - 35.7 g/dL CERNER BJWCH Comment:Testing performed by : [place] [address], [address] [place] [address] RDW CV 16.2(H) 11.1 - 14.9 % CERNER BJWCH Comment:Testing performed by : [facility], [facility] [address], [address] [place] [address] RDW SD 59.5(H) 35.7 - 48.1 fL STAN STAPLETON Comment:Testing performed by : [facility], [facility] [address], [address] [place] [address] ANC Prelim 6.76(H) 1.50 - 6.50 K/cumm STAN STAPLETON Comment: Interpretive Data The rapid ANC is a preliminary automated count and may vary from the final ANC (Neut Abs) reported in the WBC differential that follows. Current interpretive data was last revised 2024. Testing performed by: [facility], [facility], [address] [place] [address] Blood 10/07/2024 9:11 AM CDT 10/07/2024 9:13 AM CDT Agustina Li MD PhD LAB BLOOD ORDERABLES Final Result Performing Organization Address City/[facility]/ZIP Co de Phone Number [facility] [address] [employer] [place] [address] * (ABNORMAL) Cancer antigen 19-9 (10/07/2024 9:11 AM CDT) [facility] Signature CA 19-9 ag 227.0(H) 0.0 - 35.0 units/mL Comment: Interpretive Data The Dereck CA 19-9 assay procedure was used. Results from different manufacturers or methods may not be comparable. Serial testing should be performed using the same method. Testing performed by: [facility], [address] [place] [address], [place]., [address] Blood 10/07/2024 9:11 AM CDT 10/07/2024 10:24 AM CDT Agustina Li MD PhD LAB BLOOD ORDERABLES Final Result Performing Organization Address City/[facility]/ZIP Co de Phone Number [facility] [address] [employer] [place] [address] * (ABNORMAL) Protime-INR (10/07/2024 9:11 AM CDT) PT 16.4(H) 9.7 - 13.0 sec Comment:Testing performed by : [facility], [address], [place] [address] INR 1.51(H) 0.90 - 1.20 STAN STAPLETON Comment: Interpretive data Oral anticoagulant therapeutic ranges: Venous thromboembolism prophylaxis or treatment: 2.0-3.0 CARDIOLOGY Standard range: 2.0-3.0 High-intensity range: 2.5-3.5 Refer to indication-specific guidelines for appropriate target ranges for prosthetic heart valve replacement. Current interpretive data was last revised on 2019. Testing performed by: [facility], [address] [facility] [place] [address] Blood 10/07/2024 9:11 AM CDT 10/07/2024 9:38 AM CDT us Agustina Li MD PhD LAB BLOOD ORDERABLES Final Result [facility] [address] [address]. Department [place] [address] * (ABNORMAL) Comprehensive metabolic panel (10/07/2024 9:11 AM CDT) Pathologist [facility] Sodium 131(L) 135 - 145 mmol/L Comment:Testing performed by : [facility], [address] [place] [address] Potassium, pl 4.1 3.3 - 4.9 mmol/L STAN STAPLETON Comment:Testing performed by : [facility], [address] [place] [address] Chloride 96(L) 97 - 110 mmol/L STAN STAPLETON Comment:Testing performed by : [facility], [address] [place] [address] CO2 22 22 - 32 mmol/L STAN STAPLETON Comment:Testing performed by : [facility], [address], [place] [address] Anion gap 13 2 - 15 mmol/L CERNER BJWCH Comment:Testing performed by : [facility], [address], [place] [address] BUN 33(H) 6 - 25 mg/dL CERNER BJWCH Comment:Testing performed by : [facility], [address], [place] [address] Creatinine 0.90 0.80 - 1.30 mg/dL CERNER BJWCH Comment:Testing performed by : [facility], [address], [place] [address] Glucose 171 70 - 199 mg/dL CERNER BJWCH Comment: Interpretive Data Fasting glucose >/= 126 mg/dl is diagnostic for diabetes. Fasting is defined as no caloric intake for at least 8 hours. Fasting glucose between 100 mg/dl to 125 mg/dl is diagnostic of prediabetes. In a patient with classic symptoms of hyperglycemia or hyperglycemic crisis, a random glucose >/= 200 mg/dl is diagnostic for diabetes. In the absence of unequivocal hyperglycemia, results should be confirmed by repeat testing. The classification and Diagnosis of Diabetes Diabetes Care 2021; 46: S19-S40. Current interpretive data was last revised 2022. Testing performed by: [facility], [address], [place] [address] Calcium 9.0 8.5 - 10.3 mg/dL CERNER BJWCH Comment:Testing performed by : [facility], [address], [place] [address] Bilirubin, total 0.5 0.1 - 1.2 mg/dL CERNER BJWCH Comment:Testing performed by : [facility], [address], [place] [address] Protein, pl 7.4 6.5 - 8.5 g/dL CERNER BJWCH Comment:Testing performed by : [facility], [address], [place] [address] Albumin 3.9 3.5 - 5.0 g/dL CERNER BJWCH Comment:Testing performed by : [facility], [address], [place] [address] Alk phos 423(H) 40 - 130 Units/L STAN STAPLETON Comment:Testing performed by : [facility], [address], [place] [address] ALT 35 7 - 55 Units/L STAN ALVAREZ Comment:Testing performed by : [facility], [address], [place] [address] AST 37 10 - 50 Units/L [facility] Comment:Testing performed by : [facility], [address], [place] [address] Blood 10/07/2024 9:11 AM CDT 10/07/2024 9:38 AM CDT us Agustina Li MD PhD LAB BLOOD ORDERABLES Edited Result - Final Performing Organization Address [facility] de Phone Number [facility] [address]. [place] [address] * (ABNORMAL) Protime-INR (09/30/2024 2:30 PM CDT) INR 1.3(H) [place] Comment: Reference Range 0.9-1.1 Moderate-intensity Warfarin Therapy 2.0-3.0 Higher-intensity Warfarin Therapy 3.0-4.0 PT 13.7(H) 9.0 - 11.5 sec [place] Comment: For additional information, please refer to http://education.[employer]/faq/YIJ625 (This link is being provided for informational/ educational purposes only.) Blood 09/30/2024 2:30 PM CDT 09/30/2024 2:32 PM CDT Narrative [facility] - 10/01/2024 12:17 AM CDT FASTING:NO FASTING: NO us Chris Hart MD LAB BLOOD ORDERABLES Final Result Performing Organization Address City/[facility]/ZIP Co de Phone Number [facility] [address] [place] [address] * (ABNORMAL) Protime-INR (09/23/2024 11:21 AM CDT) INR 1.3(H) [place] Aunt [place] Comment: Reference Range 0.9-1.1 Moderate-intensity Warfarin Therapy 2.0-3.0 Higher-intensity Warfarin Therapy 3.0-4.0 PT 14.0(H) 9.0 - 11.5 sec [place] Comment: For additional information, please refer to http://education.[employer]/faq/HWV381 (This link is being provided for informational/ educational purposes only.) Blood 09/23/2024 11:2 1 AM CDT 09/23/2024 11:21 AM CDT Chris Hart MD LAB BLOOD ORDERABLES Final Result [facility] [address] [place] [address] * eGFR (09/16/2024 8:08 AM CDT) eGFR >90 >=60 mL/min/1. 73 m2 Comment: Interpretive Data Reference Interval Normal >/= 90 mL/min/1.73m2 Mildly decreased* 60 - 89 mL/min/1.73m2 Mildly to moderately decreased 45 - 59 mL/min/1.73m2 Moderately to severely decreased 30 - 44 mL/min/1.73m2 Severely decreased 15 - 29 mL/min/1.73m2 Kidney Failure < 15 mL/min/1.73m2 *Relative to young adult level Estimated glomerular filtration rate is determined by the 2020 CKD-EPI equation recommended by the National Kidney Foundation (A Unifying Approach to GFR Estimation: Recommendations of the NKF-ASK Task Force on Reassessing the Inclusion of Race in Diagnosing Kidney Disease, JASN 2020). The CKD-EPI equation should not be used for patients with unstable renal function and has not been validated in children and those over 70. Current interpretive data was last reviewed 2021. Testing performed by: [facility], [address] [place] [address] Blood 09/16/2024 8:08 AM CDT 09/16/2024 8:48 AM CDT us Gorge Vaughan MD PhD LAB BLOOD ORDERABLES Final Result [facility] [address]. [place] [address] * (ABNORMAL) Differential, auto (09/16/2024 8:08 AM CDT) Neutrophil abs 5.67 1.50 - 6.50 K/cumm Comment:Testing performed by : [place] [address], [place] [address] Imm gran abs 0.15(H) 0.00 - 0.10 K/cumm STAN BJWCH Comment:Testing performed by : [place] [address], [place] [address] Lymphocyte abs 0.47(L) 0.80 - 3.30 K/cumm STAN ALVAREZ Comment:Testing performed by : [place] [address], [place] [address] Monocyte abs 0.64 0.20 - 0.80 K/cumm STAN BJWCH Comment:Testing performed by : [place] [address], [address] [place] [address] Eosinophil abs 0.03 0.00 - 0.50 K/cumm STAN BJJUSTIN Comment:Testing performed by : [place] [address], [address] [place] [address] Basophil abs 0.01 0.00 - 0.10 K/cumm STAN BJWCH Comment:Testing performed by : [place] [address], [address] [place] [address] Neutrophil pct 81.4 % CERKERI COREYWCH Comment: Interpretive Data Percent cell count reference ranges are not reported, since discordance with absolute values may lead to misinterpretation of CBC data. Current Interpretive Data was last revised on 2017. Testing performed by: [facility], [facility], [address] [place] [address] Imm gran pct 2.2 % CERNER BJWCH Comment: Interpretive Data Percent cell count reference ranges are not reported, since discordance with absolute values may lead to misinterpretation of CBC data. Current Interpretive Data was last revised on 2017. Testing performed by: [facility], [facility], [address] [place] [address] Lymphocyte pct 6.7 % CERNER BJWCH Comment: Interpretive Data Percent cell count reference ranges are not reported, since discordance with absolute values may lead to misinterpretation of CBC data. Current Interpretive Data was last revised on 2017. Testing performed by: [facility], [facility], [address] [place] [address] Monocyte pct 9.2 % CERNER BJWCH Comment: Interpretive Data Percent cell count reference ranges are not reported, since discordance with absolute values may lead to misinterpretation of CBC data. Current Interpretive Data was last revised on 2017. Testing performed by: [facility], [facility], [address] [place] [address] Eosinophil pct 0.4 % CERNER BJWCH Comment: Interpretive Data Percent cell count reference ranges are not reported, since discordance with absolute values may lead to misinterpretation of CBC data. Current Interpretive Data was last revised on 2017. Testing performed by: [facility], [facility], [address] [place] [address] Basophil pct 0.1 % CERNER BJWCH Comment: Interpretive Data Percent cell count reference ranges are not reported, since discordance with absolute values may lead to misinterpretation of CBC data. Current Interpretive Data was last revised on 2017. Testing performed by: [facility], [facility], [address] [place] [address] Blood 09/16/2024 8:08 AM CDT 09/16/2024 8:17 AM CDT us Gorge Vaughan MD PhD LAB BLOOD ORDERABLES Final Result [facility] [address] [facility]. Department of Laboratories [place], [place] [id number] * (ABNORMAL) CBC with auto differential (09/16/2024 8:08 AM CDT) WBC 6.97 3.80 - 9.90 K/cumm Comment:Testing performed by : [place] [address] [place] [address] Hgb 8.4(L) 13.0 - 17.5 g/dL TSAN STAPLETON Comment:Testing performed by : [place] [address] [place] [address] Hct 25.2(L) 38.9 - 50.3 % STAN COREYPATSY Comment:Testing performed by : [place] [address] [place] [address] Plt 102(L) 150 - 400 K/cumm STAN STAPLETON Comment:Testing performed by : [place] [address] [place] [address] MPV 10.1 9.1 - 12.3 fL STAN STAPLETON Comment:Testing performed by : [address] [place] [address] RBC 2.39(L) 4.30 - 5.80 M/cumm STAN STAPLETON Comment:Testing performed by : [place] [address], [address] [place] [address] MCV 105.4(H) 81.3 - 96.4 fL STAN ALVAREZCH Comment:Testing performed by : [place] [address] [place] [address] MCH 35.1(H) 27.1 - 33.3 pg [facility] Comment:Testing performed by : [facility], [facility], [address] [place] [address] MCHC 33.3 32.3 - 35.7 g/dL STAN ALVAREZ Comment:Testing performed by : [facility], [facility], [address] [place] [address] RDW CV 17.0(H) 11.1 - 14.9 % [facility] Comment:Testing performed by : [facility], [facility], [address] [place] [address] RDW SD 66.4(H) 35.7 - 48.1 fL STAN ALVAREZ Comment:Testing performed by : [facility], [facility], [address] [place] [address] ANC Prelim 5.67 1.50 - 6.50 K/cumm STAN STAPLETON Comment: Interpretive Data The rapid ANC is a preliminary automated count and may vary from the final ANC (Neut Abs) reported in the WBC differential that follows. Current interpretive data was last revised 2024. Testing performed by: [facility], [facility], [address] [place] [address] Blood 09/16/2024 8:08 AM CDT 09/16/2024 8:17 AM CDT Gorge Vaughan MD PhD LAB BLOOD ORDERABLES Final Result [facility] [address] [facility]. [place] [address] * (ABNORMAL) Cancer antigen 19-9 (09/16/2024 8:08 AM CDT) CA 19-9 ag 152.0(H) 0.0 - 35.0 units/mL Comment: Interpretive Data The Dereck CA 19-9 assay procedure was used. Results from different manufacturers or methods may not be comparable. Serial testing should be performed using the same method. Testing performed by: [facility], [facility], [place]., [address] Blood 09/16/2024 8:08 AM CDT 09/16/2024 1:03 PM CDT Gorge Vaughan MD PhD LAB BLOOD ORDERABLES Final Result Performing Organization Address City/[facility]/ZIP Co de Phone Number [facility] [address] [facility] [address] * (ABNORMAL) Protime-INR (09/16/2024 8:08 AM CDT) PT 16.8(H) 9.7 - 13.0 sec Comment:Testing performed by : [facility], [address] [place] [address], [place] [address] INR 1.54(H) 0.90 - 1.20 STAN STAPLETON Comment: Interpretive data Oral anticoagulant therapeutic ranges: Venous thromboembolism prophylaxis or treatment: 2.0-3.0 CARDIOLOGY Standard range: 2.0-3.0 High-intensity range: 2.5-3.5 Refer to indication-specific guidelines for appropriate target ranges for prosthetic heart valve replacement. Current interpretive data was last revised on 2019. Testing performed by: [facility], [id number] [place] [address], [place] [address] Blood 09/16/2024 8:08 AM CDT 09/16/2024 8:48 AM CDT us Chris Hart MD LAB BLOOD ORDERABLES Final Result Performing Organization Address City/[facility]/ZIP Co de Phone Number [facility] [address] [facility]. [facility] [place] [address] * (ABNORMAL) Comprehensive metabolic panel (09/16/2024 8:08 AM CDT) Sodium 134(L) 135 - 145 mmol/L Comment:Testing performed by : [facility], [address], [place] [address] Potassium, pl 3.5 3.3 - 4.9 mmol/L CERNER BJWCH Comment:Testing performed by : [facility], [address], [place] [address] Chloride 100 97 - 110 mmol/L CERNER BJWCH Comment:Testing performed by : [facility], [address], [place] [address] CO2 23 22 - 32 mmol/L CERNER BJWCH Comment:Testing performed by : [facility], [address], [place] [address] Anion gap 11 2 - 15 mmol/L CERNER BJWCH Comment:Testing performed by : [facility], [address], [place] [address] BUN 22 6 - 25 mg/dL CERNER BJWCH Comment:Testing performed by : [facility], [address], [place] [address] Creatinine 0.70(L) 0.80 - 1.30 mg/dL CERNER BJWCH Comment:Testing performed by : [facility], [address], [place] [address] Glucose 127 70 - 199 mg/dL CERNER BJWCH Comment: Interpretive Data Fasting glucose >/= 126 mg/dl is diagnostic for diabetes. Fasting is defined as no caloric intake for at least 8 hours. Fasting glucose between 100 mg/dl to 125 mg/dl is diagnostic of prediabetes. In a patient with classic symptoms of hyperglycemia or hyperglycemic crisis, a random glucose >/= 200 mg/dl is diagnostic for diabetes. In the absence of unequivocal hyperglycemia, results should be confirmed by repeat testing. The classification and Diagnosis of Diabetes Diabetes Care 2021; 46: S19-S40. Current interpretive data was last revised 2022. Testing performed by: [facility], [address], [place] [address] Calcium 8.3(L) 8.5 - 10.3 mg/dL CERNER BJWCH Comment:Testing performed by : [facility], [address], [place] [address] Bilirubin, total 0.6 0.1 - 1.2 mg/dL CERNER BJWCH Comment:Testing performed by : [facility], [address], [place] [address] Protein, pl 5.8(L) 6.5 - 8.5 g/dL CERNER BJWCH Comment:Testing performed by : [facility], [address], [place] [address] Albumin 2.9(L) 3.5 - 5.0 g/dL CERNER BJWCH Comment:Testing performed by : [facility], [address], [place] [address] Alk phos 388(H) 40 - 130 Units/L CERNER BJWCH Comment:Testing performed by : [facility], [address], [place] [address] ALT 36 7 - 55 Units/L CERNER BJWCH Comment:Testing performed by : [facility], [address], [place] [address] AST 46 10 - 50 Units/L CERNER BJWCH Comment:Testing performed by : [facility], [address], [place] [address] Blood 09/16/2024 8:08 AM CDT 09/16/2024 8:48 AM CDT us Gorge Vaughan MD PhD LAB BLOOD ORDERABLES Final Result [facility] [address] [place] [address] * COPY(IES) SENT TO: (09/11/2024 10:40 AM CDT) COPY(IES) SENT TO: [facility] Comment: SITEMAN - COPY TO ACCOUNT [address] [place] [address] 09/11/2024 10:4 0 AM CDT 09/11/2024 10:40 AM CDT Narrative [facility] - 09/15/2024 3:41 PM CDT FASTING:NO FASTING: NO us Agustina Li MD PhD LAB BLOOD ORDERABLES Final Result [facility] * (ABNORMAL) CBC with auto differential (09/11/2024 10:40 AM CDT) WBC 6.7 3.8 - 10.8 Thousand/ uL [facility] RBC, POC 2.40(L) 4.20 - 5.80 Million/u L [facility] Hgb 8.7(L) 13.2 - 17.1 g/dL [facility] Hct 26.2(L) 38.5 - 50.0 % [facility] MCV 109.2(H) 80.0 - 100.0 fL [facility] MCH 36.3(H) 27.0 - 33.0 pg [facility] MCHC 33.2 32.0 - 36.0 g/dL [facility] Comment: For adults, a slight decrease in the calculated MCHC value (in the range of 30 to 32 g/dL) is most likely not clinically significant; however, it should be interpreted with caution in correlation with other red cell parameters and the patient's clinical condition. Rdw 17.3(H) 11.0 - 15.0 % [facility] Platelets 70(L) 140 - 400 Thousand/ uL [facility] MPV 12.1 7.5 - 12.5 fL [facility] Neutrophils, abs 6,097 1,500 - 7,800 cells/uL [facility] Neutrophil bands, abs 67 0 - 750 cells/uL [facility] Lymphocytes, abs 201(L) 850 - 3,900 cells/uL [facility] Monocyte abs 335 200 - 950 cells/uL [facility] Eosinophils, abs 0(L) 15 - 500 cells/uL [facility] Basophils, abs 0 0 - 200 cells/uL [facility] Neutrophils 91 % [facility] Neutrophilic bands 1 % [facility] Lymphocyte pct 3 % [facility] Monocytes 5 % [facility] [facility] Eosinophils 0 % [facility] Basophils 0 % [facility] [place] Comment [facility] Comment: ERYTHROCYTES: THE ERYTHROCYTES ARE MACROCYTIC AND HYPERCHROMIC. MILD ANISOCYTOSIS IS PRESENT. NO NUCLEATED RED BLOOD CELLS ARE SEEN. LEUKOCYTES: THE ESTIMATED LEUKOCYTE COUNT IS WITHIN NORMAL LIMITS. LYMPHOPENIA AND A SINGLE BLASTOID CELL ARE PRESENT. PLATELETS: THE ESTIMATED PLATELET COUNT IS DECREASED. THE MORPHOLOGY IS NORMAL. NO PLATELET CLUMPS ARE SEEN. MANUAL DIFFERENTIAL: 91% SEGMENTED NEUTROPHILS 1% BAND NEUTROPHILS 3% LYMPHOCYTES 5% MONOCYTES SUMMARY: THE PERIPHERAL BLOOD SMEAR AND COMPLETE BLOOD COUNT REVEAL ERYTHROCYTOSIS, MACROCYTIC AND HYPERCHROMIC ANEMIA, LYMPHOPENIA, A SINGLE BLASTOID CELL OF UNCERTAIN SIGNIFICANCE, AND THROMBOCYTOPENIA. FURTHER EVALUATION IS SUGGESTED CLINICALLY INDICATED. (NAG/DLP) THIS PERIPHERAL BLOOD SMEAR WAS REVIEWED BY: MIGUEL BURNETT M.D. [facility] [address] [place] [id number] CLIA ID NO. [id number] Blood 09/11/2024 10:4 0 AM CDT 09/11/2024 10:40 AM CDT [facility] - 09/15/2024 3:41 PM CDT FASTING:NO FASTING: NO us Agustina Li MD PhD LAB BLOOD ORDERABLES Final Result [facility] [address] [place] [address] * (ABNORMAL) Protime-INR (09/11/2024 10:40 AM CDT) INR 1.6(H) [facility] [place] Comment: Reference Range 0.9-1.1 Moderate-intensity Warfarin Therapy 2.0-3.0 Higher-intensity Warfarin Therapy 3.0-4.0 PT 17.0(H) 9.0 - 11.5 sec [facility] [place] Comment: For additional information, please refer to http://education.[employer]ding [employer]/faq/DGP884 (This link is being provided for informational/ educational purposes only.) Blood 09/11/2024 10:4 0 AM CDT 09/11/2024 10:40 AM CDT Narrative [facility] - 09/15/2024 3:41 PM CDT FASTING:NO FASTING: NO us Agustina Li MD PhD LAB BLOOD ORDERABLES Final Result [facility] [address] [place] [address] * (ABNORMAL) Comprehensive metabolic panel (09/11/2024 10:40 AM CDT) Pathologist [facility] Glucose 105 65 - 139 mg/dL [facility] [place] Comment: Non-fasting reference interval BUN 22 7 - 25 mg/dL [facility] [place] Creatinine 0.69(L) 0.70 - 1.28 mg/dL [facility] eGFR 97 > OR = 60 mL/min/1.7 3m2 [facility] BUN/creat ratio 32(H) 6 - 22 (calc) [facility] [place] Sodium 132(L) 135 - 146 mmol/L [facility] [place] Potassium, pl 3.9 3.5 - 5.3 mmol/L [facility] Chloride 99 98 - 110 mmol/L [facility] CO2 27 20 - 32 mmol/L [facility] Calcium 7.6(L) 8.6 - 10.3 mg/dL [facility] Protein, sr 5.0(L) 6.1 - 8.1 g/dL [facility] Albumin 2.6(L) 3.6 - 5.1 g/dL [facility] GLOBULIN 2.4 1.9 - 3.7 g/dL (calc) [facility] Alb/glob ratio 1.1 1.0 - 2.5 (calc) [facility] Bilirubin, total 0.8 0.2 - 1.2 mg/dL [facility] Alk phos 204(H) 35 - 144 U/L [facility] [place] AST 40(H) 10 - 35 U/L [facility] [place] ALT (SGPT) 25 9 - 46 U/L [facility] [place] Blood 09/11/2024 10:4 0 AM CDT 09/11/2024 10:40 AM CDT Narrative [facility] - 09/15/2024 3:41 PM CDT FASTING:NO FASTING: NO us Agustina Li MD PhD LAB BLOOD ORDERABLES Final Result Performing Organization Address City/[facility]/ZIP Co de Phone Number [facility] [address] [place] [address] * SCAN - LABS (09/11/2024) us Provider Scanning Edited Result - Final * eGFR (09/09/2024 7:32 AM CDT) eGFR >90 >=60 mL/min/1. 73 m2 Comment: Interpretive Data Reference Interval Normal >/= 90 mL/min/1.73m2 Mildly decreased* 60 - 89 mL/min/1.73m2 Mildly to moderately decreased 45 - 59 mL/min/1.73m2 Moderately to severely decreased 30 - 44 mL/min/1.73m2 Severely decreased 15 - 29 mL/min/1.73m2 Kidney Failure < 15 mL/min/1.73m2 *Relative to young adult level Estimated glomerular filtration rate is determined by the 2020 CKD-EPI equation recommended by the National Kidney Foundation (A Unifying Approach to GFR Estimation: Recommendations of the NKF-ASK Task Force on Reassessing the Inclusion of Race in Diagnosing Kidney Disease, JASN 2020). The CKD-EPI equation should not be used for patients with unstable renal function and has not been validated in children and those over 70. Current interpretive data was last reviewed 2021. Testing performed by: [facility], [address], [place] [address] Blood 09/09/2024 7:32 AM CDT 09/09/2024 8:19 AM CDT us Gorge Vaughan MD PhD LAB BLOOD ORDERABLES Final Result Performing Organization Address City/[facility]/ZIP Co de Phone Number [facility] [address] [address] * (ABNORMAL) Differential, auto (09/09/2024 7:32 AM CDT) Neutrophil abs 4.58 1.50 - 6.50 K/cumm Comment:Testing performed by : [place] [address], [address] [place] [address] Imm gran abs 0.05 0.00 - 0.10 K/cumm CERNER BJWCH Comment:Testing performed by : [place] [address], [address] [place] [address] Lymphocyte abs 0.25(L) 0.80 - 3.30 K/cumm [facility] Comment:Testing performed by : [place] [address], [place] [address] Monocyte abs 0.51 0.20 - 0.80 K/cumm C[facility]ER [facility] Comment:Testing performed by : [place] [address], [place] [address] Eosinophil abs 0.00 0.00 - 0.50 K/cumm C[facility] Comment:Testing performed by : [place] [address], [place] [address] Basophil abs 0.00 0.00 - 0.10 K/cumm C[facility] Comment:Testing performed by : [place] [address] [place] [address] Neutrophil pct 85.0 % [facility] Comment: Interpretive Data Percent cell count reference ranges are not reported, since discordance with absolute values may lead to misinterpretation of CBC data. Current Interpretive Data was last revised on 2017. Testing performed by: [place] [address], [address] [place] [address] Imm gran pct 0.9 % [facility] Comment: Interpretive Data Percent cell count reference ranges are not reported, since discordance with absolute values may lead to misinterpretation of CBC data. Current Interpretive Data was last revised on 2017. Testing performed by: [facility], [facility], [address] [place] [address] Lymphocyte pct 4.6 % CERKERI STAPLETON Comment: Interpretive Data Percent cell count reference ranges are not reported, since discordance with absolute values may lead to misinterpretation of CBC data. Current Interpretive Data was last revised on 2017. Testing performed by: [facility], [facility], [address] [place] [address] Monocyte pct 9.5 % CERKERI COREYWCH Comment: Interpretive Data Percent cell count reference ranges are not reported, since discordance with absolute values may lead to misinterpretation of CBC data. Current Interpretive Data was last revised on 2017. Testing performed by: [facility], [facility], [address] [place] [address] Eosinophil pct 0.0 % CERKERI STAPLETON Comment: Interpretive Data Percent cell count reference ranges are not reported, since discordance with absolute values may lead to misinterpretation of CBC data. Current Interpretive Data was last revised on 2017. Testing performed by: [facility], [facility], [address] [place] [address] Basophil pct 0.0 % CERKERI STAPLETON Comment: Interpretive Data Percent cell count reference ranges are not reported, since discordance with absolute values may lead to misinterpretation of CBC data. Current Interpretive Data was last revised on 2017. Testing performed by: [facility], [facility], [address] [place] [address] Blood 09/09/2024 7:32 AM CDT 09/09/2024 7:50 AM CDT us Gorge Vaughan MD PhD LAB BLOOD ORDERABLES Final Result [facility] [address] [facility]. [place] [address] * (ABNORMAL) CBC with auto differential (09/09/2024 7:32 AM CDT) WBC 5.39 3.80 - 9.90 K/cumm Comment:Testing performed by : [place] [address] [place] [address] Hgb 8.2(L) 13.0 - 17.5 g/dL [facility] Comment:Testing performed by : [place] [address] [place] [address] Hct 24.8(L) 38.9 - 50.3 % [facility] Comment:Testing performed by : [place] [address] [place] [address] Plt 62(L) 150 - 400 K/cumm CERKERI BJWCH Comment:Testing performed by : [place] [address] [place] [address] MPV 10.4 9.1 - 12.3 fL CERKERI BJWCH Comment:Testing performed by : [place] [address] [place] [address] RBC 2.30(L) 4.30 - 5.80 M/cumm C[facility]ER [facility] Comment:Testing performed by : [place] [address], [place] [address] MCV 107.8(H) 81.3 - 96.4 fL CERKERI BJWCH Comment:Testing performed by : [place] [address], [place] [address] MCH 35.7(H) 27.1 - 33.3 pg [facility] Comment:Testing performed by : [place] [address] [place] [address] MCHC 33.1 32.3 - 35.7 g/dL [facility] Comment:Testing performed by : [place] [address] [place] [address] RDW CV 17.3(H) 11.1 - 14.9 % STAN STAPLETON Comment:Testing performed by : [facility], [facility], [address] [place] [address] RDW SD 70.0(H) 35.7 - 48.1 fL ST[facility] STAPLETON Comment:Testing performed by : [facility], [facility], [address] [place] [address] ANC Prelim 4.58 1.50 - 6.50 K/cumm STAN STAPLETON Comment: Interpretive Data The rapid ANC is a preliminary automated count and may vary from the final ANC (Neut Abs) reported in the WBC differential that follows. Current interpretive data was last revised 2024. Testing performed by: [facility], [facility], [address] [place] [address] Morphologic Screen Results confirmed by manual morphology review. STAN STAPLETON Comment:Testing performed by : [facility], [facility], [address] [place] [address] Blood 09/09/2024 7:32 AM CDT 09/09/2024 7:50 AM CDT Gorge Vaughan MD PhD LAB BLOOD ORDERABLES Edited Result - Final [facility] [address] [facility]. Department of Laboratories [place], [place] [id number] * (ABNORMAL) Cancer antigen 19-9 (09/09/2024 7:32 AM CDT) CA 19-9 ag 95.4(H) 0.0 - 35.0 units/mL Comment: Interpretive Data The Dereck CA 19-9 assay procedure was used. Results from different manufacturers or methods may not be comparable. Serial testing should be performed using the same method. Testing performed by: [facility], [facility], [place]., [address] Blood 09/09/2024 7:32 AM CDT 09/09/2024 10:24 AM CDT us Gorge Vaughan MD PhD LAB BLOOD ORDERABLES Final Result Performing Organization Address [facility] Co de Phone Number [facility] [address] [facility] [place] [address] * (ABNORMAL) Protime-INR (09/09/2024 7:32 AM CDT) PT 22.0(H) 9.7 - 13.0 sec Comment:Testing performed by : [facility], [address] [facility], [place] [address] INR 2.01(H) 0.90 - 1.20 STAN STAPLETON Comment: Interpretive data Oral anticoagulant therapeutic ranges: Venous thromboembolism prophylaxis or treatment: 2.0-3.0 CARDIOLOGY Standard range: 2.0-3.0 High-intensity range: 2.5-3.5 Refer to indication-specific guidelines for appropriate target ranges for prosthetic heart valve replacement. Current interpretive data was last revised on 2019. Testing performed by: [facility], [address] [facility], [place] [address] Blood 09/09/2024 7:32 AM CDT 09/09/2024 8:19 AM CDT us Chris Hart MD LAB BLOOD ORDERABLES Final Result Performing Organization Address [facility] Co de Phone Number [facility] [address] [place] [address] * (ABNORMAL) Comprehensive metabolic panel (09/09/2024 7:32 AM CDT) Sodium 132(L) 135 - 145 mmol/L Comment:Testing performed by : [facility], [address], [place] [address] Potassium, pl 3.6 3.3 - 4.9 mmol/L STAN STAPLETON Comment:Testing performed by : [facility], [address] [facility], [place] [address] Chloride 96(L) 97 - 110 mmol/L [facility] Comment:Testing performed by : [facility], [address], [place] [address] CO2 27 22 - 32 mmol/L [facility] Comment:Testing performed by : [facility], [address], [place] [address] Anion gap 9 2 - 15 mmol/L [facility] Comment:Testing performed by : [facility], [address], [place] [address] BUN 17 6 - 25 mg/dL [facility] Comment:Testing performed by : [facility], [address], [place] [address] Creatinine 0.80 0.80 - 1.30 mg/dL C[facility]ER B[facility] Comment:Testing performed by : [facility], [address], [place] [address] Glucose 117 70 - 199 mg/dL [facility] Comment: Interpretive Data Fasting glucose >/= 126 mg/dl is diagnostic for diabetes. Fasting is defined as no caloric intake for at least 8 hours. Fasting glucose between 100 mg/dl to 125 mg/dl is diagnostic of prediabetes. In a patient with classic symptoms of hyperglycemia or hyperglycemic crisis, a random glucose >/= 200 mg/dl is diagnostic for diabetes. In the absence of unequivocal hyperglycemia, results should be confirmed by repeat testing. The classification and Diagnosis of Diabetes Diabetes Care 2021; 46: S19-S40. Current interpretive data was last revised 2022. Testing performed by: [facility], [address], [place] [address] Calcium 7.7(L) 8.5 - 10.3 mg/dL [facility] Comment:Testing performed by : [facility], [address], [place] [address] Bilirubin, total 0.7 0.1 - 1.2 mg/dL [facility] Comment:Testing performed by : [facility], [address], [place] [address] Protein, pl 5.1(L) 6.5 - 8.5 g/dL [facility] Comment:Testing performed by : [facility], [address], [place] [address] Albumin 2.6(L) 3.5 - 5.0 g/dL [facility] Comment:Testing performed by : [facility], [address], [place] [address] Alk phos 227(H) 40 - 130 Units/L [facility] Comment:Testing performed by : [facility], [address], [place] [address] ALT 28 7 - 55 Units/L [facility] Comment:Testing performed by : [facility], [address], [place] [address] AST 50 10 - 50 Units/L [facility] Comment:Testing performed by : [facility], [address], [place] [address] Blood 09/09/2024 7:32 AM CDT 09/09/2024 8:19 AM CDT us Gorge Vaughan MD PhD LAB BLOOD ORDERABLES Edited Result - Final [facility] [address] [place] [address] * ECG 12 lead (09/07/2024 11:34 AM CDT) Ventricular Rate EKG/Min 65 BPM [facility] Atrial Rate 65 BPM [facility] PA-Interval (MSEC) 206 ms [facility] QRS-Interval (MSEC) 96 ms [facility] QT-Interval (MSEC) 506 ms [facility] QTc 526 ms [facility] P [place] 18 degrees [facility] R [place] -27 degrees [facility] T [place] 241 degrees [facility] Diagnosis Atrial-paced rhythm Minimal voltage criteria for LVH, may be normal variant ( R in aVL ) T wave abnormality, consider inferior ischemia T wave abnormality, consider anterolateral ischemia Prolonged QT Abnormal ECG Confirmed by Georges Smith MD ([id number]) on 09/08/2024 4:32:43 PM [facility] 09/07/2024 11:3 4 AM CDT 09/08/2024 4:32 PM CDT Sharron Amador MD ECG ORDERABLES Final Result [facility] * XR Chest 1 View (09/07/2024 8:01 AM CDT) Anatomical Region Laterality Modality Body, Chest N/A Computed Radiogr aphy 09/07/2024 8:47 AM CDT Impressions 09/07/2024 8:47 AM CDT Comparison exam is dated 09/04/2024. Small bilateral pleural effusions and bibasilar atelectasis are seen which overall appear stable compared to the prior examination. A right internal jugular port has its distal tip in the superior vena cava. Dual-lead pacemaker pack remains unchanged with distal leads in the right atrium and right ventricle. There are no broken or abandoned leads. Electronically signed by: Ulisses Sifuentes M.D. Narrative 09/07/2024 8:47 AM CDT EXAMINATION: 1 view chest radiograph Procedure Note Ulisses Sifuentes MD - 09/07/2024 EXAMINATION: 1 view chest radiograph IMPRESSION: Comparison exam is dated 09/04/2024. Small bilateral pleural effusions and bibasilar atelectasis are seen which overall appear stable compared to the prior examination. A right internal jugular port has its distal tip in the superior vena cava. Dual-lead pacemaker pack remains unchanged with distal leads in the right atrium and right ventricle. There are no broken or abandoned leads. Electronically signed by: Ulisses Sifuentes M.D. Sharron Amador MD IMG XR PROCEDURES Final Result * Critical Result Callback Chemistry (09/07/2024 5:39 AM CDT) Date Notified [id number] Time Notified 601 [facility] TestName pO2 Art and O2 Sat Art (Noni) [facility] Called/Read Back Sravani Campos [facility] Credentials RN [facility] Called By KRISTIN [facility] Blood 09/07/2024 5:39 AM CDT 09/07/2024 5:49 AM CDT Perla Roldan MD LAB BLOOD ORDERABLES F inal Result Performing Organization Address City/[facility]/ZIP Co de Phone Number [facility] [place] [address] * (ABNORMAL) Blood gas, arterial (09/07/2024 5:39 AM CDT) pH, Art 7.45 7.35 - 7.45 PCO2, Arterial 43 35 - 45 mmHg [facility] PO2, Arterial 36(C) 83 - 108 mmHg [facility] Comment:Repeated and verifie d. HCO3 Art (Calculated) 31(H) 20 - 30 mmol/L [facility] BE, art 6 mmol/L [facility] Comment: Interpretive Data No Reference Range Established Current Interpretive Data was last revised on 2017 O2 Sat Art (Measured) 64(C) 90 - 95 % [facility] Comment:Repeated and verifie d. Blood 09/07/2024 5:39 AM CDT 09/07/2024 5:49 AM CDT Perla Roldan MD LAB BLOOD ORDERABLES F inal Result Performing Organization Address City/[facility]/ZIP Co de Phone Number [facility] [place] [address] * eGFR (09/07/2024 2:43 AM CDT) eGFR >90 >=60 mL/min/1. 73 m2 Comment: Interpretive Data Reference Interval Normal >/= 90 mL/min/1.73m2 Mildly decreased* 60 - 89 mL/min/1.73m2 Mildly to moderately decreased 45 - 59 mL/min/1.73m2 Moderately to severely decreased 30 - 44 mL/min/1.73m2 Severely decreased 15 - 29 mL/min/1.73m2 Kidney Failure < 15 mL/min/1.73m2 *Relative to young adult level Estimated glomerular filtration rate is determined by the 2020 CKD-EPI equation recommended by the National Kidney Foundation (A Unifying Approach to GFR Estimation: Recommendations of the NKF-ASK Task Force on Reassessing the Inclusion of Race in Diagnosing Kidney Disease, JASN 202). The CKD-EPI equation should not be used for patients with unstable renal function and has not been validated in children and those over 70. Current interpretive data was last reviewed 2021. Blood 09/07/2024 2:43 AM CDT 09/07/2024 4:42 AM CDT us Smith Sawyer MD LAB BLOOD ORDERABLES Lila dawson Result [facility] One [facility] [place] [address] * (ABNORMAL) Differential, auto (09/07/2024 2:43 AM CDT) Neutrophil abs 5.50 1.50 - 6.50 K/cumm Imm gran abs 0.04 0.00 - 0.10 K/cumm [facility] Lymphocyte abs 0.21(L) 0.80 - 3.30 K/cumm [facility] Monocyte abs 0.42 0.20 - 0.80 K/cumm [facility] Eosinophil abs 0.01 0.00 - 0.50 K/cumm [facility] Basophil abs 0.01 0.00 - 0.10 K/cumm [facility] Neutrophil pct 88.8 % [facility] Comment: Interpretive Data Percent cell count reference ranges are not reported, since discordance with absolute values may lead to misinterpretation of CBC data. Current Interpretive Data was last revised on 2017. Imm gran pct 0.6 % [facility] Comment: Interpretive Data Percent cell count reference ranges are not reported, since discordance with absolute values may lead to misinterpretation of CBC data. Current Interpretive Data was last revised on 2017. Lymphocyte pct 3.4 % [facility] Comment: Interpretive Data Percent cell count reference ranges are not reported, since discordance with absolute values may lead to misinterpretation of CBC data. Current Interpretive Data was last revised on 2017. Monocyte pct 6.8 % [facility] Comment: Interpretive Data Percent cell count reference ranges are not reported, since discordance with absolute values may lead to misinterpretation of CBC data. Current Interpretive Data was last revised on 2017. Eosinophil pct 0.2 % [facility] Comment: Interpretive Data Percent cell count reference ranges are not reported, since discordance with absolute values may lead to misinterpretation of CBC data. Current Interpretive Data was last revised on 2017. Basophil pct 0.2 % [facility] Comment: Interpretive Data Percent cell count reference ranges are not reported, since discordance with absolute values may lead to misinterpretation of CBC data. Current Interpretive Data was last revised on 2017. Blood 09/07/2024 2:43 AM CDT 09/07/2024 4:42 AM CDT us Smith Sawyer MD LAB BLOOD ORDERABLES Lila l Result [facility] One [facility] [place] [address] * Critical Result Callback Chemistry (09/07/2024 2:43 AM CDT) Date Notified [id number] Time Notified [facility] TestName p O2 Art STAN COREY Called/Read Back Olivier COREY Credentials RN STAN COREY Called By [facility] Blood 09/07/2024 2:43 AM CDT 09/07/2024 4:41 AM CDT us Perla Roldan MD LAB BLOOD ORDERABLES F inal Result [facility]ERN[facility] [place] [address] * (ABNORMAL) CBC with auto differential (09/07/2024 2:43 AM CDT) [facility] WBC 6.19 3.80 - 9.90 K/cumm Hgb 10.1(L) 13.0 - 17.5 g/dL [facility] Hct 30.0(L) 38.9 - 50.3 % [facility] Plt 57(L) 150 - 400 K/cumm [facility] MPV 11.7 9.1 - 12.3 fL [facility] RBC 2.80(L) 4.30 - 5.80 M/cumm [facility] MCV 107.1(H) 81.3 - 96.4 fL [facility] MCH 36.1(H) 27.1 - 33.3 pg [facility] MCHC 33.7 32.3 - 35.7 g/dL [facility] RDW CV 18.8(H) 11.1 - 14.9 % [facility] RDW SD 73.8(H) 35.7 - 48.1 fL [facility] NRBC abs 0.00 0.00 - 0.01 K/cumm [facility] Blood 09/07/2024 2:43 AM CDT 09/07/2024 4:42 AM CDT Smith Sawyer MD LAB BLOOD ORDERABLES Lila dawson Result [facility]AN [facility] [place] [address] * aPTT (09/07/2024 2:43 AM CDT) [facility] aPTT 32 28 - 38 sec Comment: Interpretive Data Heparin therapeutic range: 66.0 - 100.0 seconds. Range based on correlation with therapeutic heparin activity range of 0.3 - 0.7 Units/mL. Current interpretive data was last revised on 2023. Blood 09/07/2024 2:43 AM CDT 09/07/2024 4:40 AM CDT Smith Sawyer MD LAB BLOOD ORDERABLES Lila l Result Performing Organization Address [facility] de Phone Number [facility] [place] [address] * (ABNORMAL) Protime-INR (09/07/2024 2:43 AM CDT) PT 28.4(H) 9.7 - 13.0 sec INR 2.58(H) 0.90 - 1.20 [facility] Comment: Interpretive data Oral anticoagulant therapeutic ranges: Venous thromboembolism prophylaxis or treatment: 2.0-3.0 CARDIOLOGY Standard range: 2.0-3.0 High-intensity range: 2.5-3.5 Refer to indication-specific guidelines for appropriate target ranges for prosthetic heart valve replacement. Current interpretive data was last revised on 2019. Blood 09/07/2024 2:43 AM CDT 09/07/2024 4:40 AM CDT Zuleima Levine MD LAB BLOOD ORDERABLES Lila l Result Performing Organization Address [facility] de Phone Number [facility] [place] [address] * Type and screen (09/07/2024 2:43 AM CDT) Pathologist [facility] Minna, indirect Negative ABO Rh A Positive [facility] Blood 09/07/2024 2:43 AM CDT 09/07/2024 4:44 AM CDT Narrative [facility] - 09/07/2024 7:55 AM CDT Has the patient had Daratumumab or Isatuximab in the past 6 months?->Unknown Smith Sawyer MD LAB BLOOD BANK TEST ORDER DEMETRIO Final Result Performing Organization Address [facility]/ZIP Co de Phone Number [facility] [place] [address] * Uric acid (09/07/2024 2:43 AM CDT) [facility] Uric acid 3.8 3.0 - 8.0 mg/dL Blood 09/07/2024 2:43 AM CDT 09/07/2024 4:42 AM CDT Narrative [facility] 09/07/2024 5:14 AM CDT Saturday and only. Morning draw. . Smith Sawyer MD LAB BLOOD ORDERABLES Llia l Result Performing Organization Address City/[facility] Co de Phone Number [facility] [place] [address] * Phosphorus (09/07/2024 2:43 AM CDT) [facility] Phosphorus, pl 2.9 2.3 - 4.5 mg/dL Blood 09/07/2024 2:43 AM CDT 09/07/2024 4:42 AM CDT Smith Sawyer MD LAB BLOOD ORDERABLES Lila l Result Performing Organization Address [facility] Co de Phone Number [facility] [place] [address] * (ABNORMAL) Lactate dehydrogenase (LD) (09/07/2024 2:43 AM CDT) [facility] Lactate dehydrogenase (LDH) 371(H) 100 - 250 Units/L Blood 09/07/2024 2:43 AM CDT 09/07/2024 4:42 AM CDT Narrative [facility] 09/07/2024 5:14 AM CDT Saturday and only. Morning draw. Smith Sawyer MD LAB BLOOD ORDERABLES Lila l Result [facility] [place] [address] * (ABNORMAL) Blood gas, arterial (09/07/2024 2:43 AM CDT) pH, Art 7.45 7.35 - 7.45 PCO2, Arterial 42 35 - 45 mmHg [facility] PO2, Arterial 32(C) 83 - 108 mmHg [facility] Comment:Repeated and verifie d. HCO3 Art (Calculated) 30 20 - 30 mmol/L [facility] BE, art 4 mmol/L [facility] Comment: Interpretive Data No Reference Range Established Current Interpretive Data was last revised on 2017 O2 Sat Art (Measured) 58(C) 90 - 95 % [facility] Comment:Repeated and verifie d. Blood 09/07/2024 2:43 AM CDT 09/07/2024 4:41 AM CDT us Perla Roldan MD LAB BLOOD ORDERABLES F inal Result Performing Organization Address [facility] Co de Phone Number [facility] [place] [address] * (ABNORMAL) Comprehensive metabolic panel (09/07/2024 2:43 AM CDT) Pathologist [facility] Sodium 136 135 - 145 mmol/L Potassium, pl 3.8 3.3 - 4.9 mmol/L [facility] Chloride 96(L) 97 - 110 mmol/L [facility] CO2 33(H) 22 - 32 mmol/L [facility] Anion gap 7 2 - 15 mmol/L [facility] BUN 15 6 - 25 mg/dL [facility] Creatinine 0.84 0.80 - 1.30 mg/dL [facility] Glucose 116 70 - 199 mg/dL [facility] Comment: Interpretive Data Fasting glucose >/= 126 mg/dl is diagnostic for diabetes. Fasting is defined as no caloric intake for at least 8 hours. Fasting glucose between 100 mg/dl to 125 mg/dl is diagnostic of prediabetes. In a patient with classic symptoms of hyperglycemia or hyperglycemic crisis, a random glucose >/= 200 mg/dl is diagnostic for diabetes. In the absence of unequivocal hyperglycemia, results should be confirmed by repeat testing. The classification and Diagnosis of Diabetes Diabetes Care 2021; 46: S19-S40. Current interpretive data was last revised 2022. Calcium 7.9(L) 8.5 - 10.3 mg/dL [facility] Bilirubin, total 1.4(H) 0.1 - 1.2 mg/dL [facility] Protein, pl 5.4(L) 6.5 - 8.5 g/dL [facility] Albumin 2.4(L) 3.5 - 5.0 g/dL [facility] Alk phos 275(H) 40 - 130 Units/L [facility] ALT 31 7 - 55 Units/L [facility] AST 78(H) 10 - 50 Units/L [facility] Blood 09/07/2024 2:43 AM CDT 09/07/2024 4:42 AM CDT us Smith Sawyer MD LAB BLOOD ORDERABLES Lila dawson Result [facility] One [facility] [place] [address] * eGFR (09/06/2024 12:41 AM CDT) eGFR >90 >=60 mL/min/1. 73 m2 Comment: Interpretive Data Reference Interval Normal >/= 90 mL/min/1.73m2 Mildly decreased* 60 - 89 mL/min/1.73m2 Mildly to moderately decreased 45 - 59 mL/min/1.73m2 Moderately to severely decreased 30 - 44 mL/min/1.73m2 Severely decreased 15 - 29 mL/min/1.73m2 Kidney Failure < 15 mL/min/1.73m2 *Relative to young adult level Estimated glomerular filtration rate is determined by the 2020 CKD-EPI equation recommended by the National Kidney [employer] (A Unifying Approach to GFR Estimation: Recommendations of the NKF-ASK Task Force on Reassessing the Inclusion of Race in Diagnosing Kidney Disease, JASN 2021). The CKD-EPI equation should not be used for patients with unstable renal function and has not been validated in children and those over 70. Current interpretive data was last reviewed 2021. Blood 09/06/2024 12:4 1 AM CDT 09/06/2024 12:55 AM CDT us Smith Sawyer MD LAB BLOOD ORDERABLES Lila dawson Result [facility] One [facility] [place] [address] * (ABNORMAL) Differential, auto (09/06/2024 12:41 AM CDT) Neutrophil abs 4.99 1.50 - 6.50 K/cumm Imm gran abs 0.07 0.00 - 0.10 K/cumm [facility] Lymphocyte abs 0.35(L) 0.80 - 3.30 K/cumm [facility] Monocyte abs 0.94(H) 0.20 - 0.80 K/cumm [facility] Eosinophil abs 0.01 0.00 - 0.50 K/cumm [facility] Basophil abs 0.01 0.00 - 0.10 K/cumm [facility] Neutrophil pct 78.2 % [facility] Comment: Interpretive Data Percent cell count reference ranges are not reported, since discordance with absolute values may lead to misinterpretation of CBC data. Current Interpretive Data was last revised on 2017. Imm gran pct 1.1 % [facility] Comment: Interpretive Data Percent cell count reference ranges are not reported, since discordance with absolute values may lead to misinterpretation of CBC data. Current Interpretive Data was last revised on 2017. Lymphocyte pct 5.5 % [facility] Comment: Interpretive Data Percent cell count reference ranges are not reported, since discordance with absolute values may lead to misinterpretation of CBC data. Current Interpretive Data was last revised on 2017. Monocyte pct 14.8 % [facility] Comment: Interpretive Data Percent cell count reference ranges are not reported, since discordance with absolute values may lead to misinterpretation of CBC data. Current Interpretive Data was last revised on 2017. Eosinophil pct 0.2 % [facility] Comment: Interpretive Data Percent cell count reference ranges are not reported, since discordance with absolute values may lead to misinterpretation of CBC data. Current Interpretive Data was last revised on 2017. Basophil pct 0.2 % [facility] Comment: Interpretive Data Percent cell count reference ranges are not reported, since discordance with absolute values may lead to misinterpretation of CBC data. Current Interpretive Data was last revised on 2017. Blood 09/06/2024 12:4 1 AM CDT 09/06/2024 12:55 AM CDT Smith Sawyer MD LAB BLOOD ORDERABLES Lila dawson Result [facility] One [facility] [place] [address] * (ABNORMAL) CBC with auto differential (09/06/2024 12:41 AM CDT) WBC 6.37 3.80 - 9.90 K/cumm Hgb 8.6(L) 13.0 - 17.5 g/dL [facility] Hct 25.3(L) 38.9 - 50.3 % [facility] Plt 61(L) 150 - 400 K/cumm [facility] MPV 11.6 9.1 - 12.3 fL [facility] RBC 2.35(L) 4.30 - 5.80 M/cumm [facility] MCV 107.7(H) 81.3 - 96.4 fL [facility] MCH 36.6(H) 27.1 - 33.3 pg [facility] MCHC 34.0 32.3 - 35.7 g/dL [facility] RDW CV 18.8(H) 11.1 - 14.9 % [facility] RDW SD 74.0(H) 35.7 - 48.1 fL [facility] NRBC abs 0.00 0.00 - 0.01 K/cumm [facility] Blood 09/06/2024 12:4 1 AM CDT 09/06/2024 12:55 AM CDT Smith Sawyer MD LAB BLOOD ORDERABLES Lila l Result Performing Organization Address [facility] Co de Phone Number [facility] [place] [address] * (ABNORMAL) Protime-INR (09/06/2024 12:41 AM CDT) PT 26.9(H) 9.7 - 13.0 sec INR 2.45(H) 0.90 - 1.20 [facility] Comment: Interpretive data Oral anticoagulant therapeutic ranges: Venous thromboembolism prophylaxis or treatment: 2.0-3.0 CARDIOLOGY Standard range: 2.0-3.0 High-intensity range: 2.5-3.5 Refer to indication-specific guidelines for appropriate target ranges for prosthetic heart valve replacement. Current interpretive data was last revised on 2019. Blood 09/06/2024 12:4 1 AM CDT 09/06/2024 12:58 AM CDT Zuleima [place] MD LAB BLOOD ORDERABLES Lila l Result Performing Organization Address [facility] Co de Phone Number [facility] [place] [place] [address] * Phosphorus (09/06/2024 12:41 AM CDT) Phosphorus, pl 3.2 2.3 - 4.5 mg/dL Blood 09/06/2024 12:4 1 AM CDT 09/06/2024 12:55 AM CDT Result [facility] Smith Sawyer MD LAB BLOOD ORDERABLES Lila l Result Performing Organization Address City/[facility] Co de Phone Number [facility] [place] [place] [address] * (ABNORMAL) Comprehensive metabolic panel (09/06/2024 12:41 AM CDT) Sodium 135 135 - 145 mmol/L Potassium, pl 3.9 3.3 - 4.9 mmol/L [facility] Chloride 97 97 - 110 mmol/L [facility] CO2 33(H) 22 - 32 mmol/L [facility] Anion gap 5 2 - 15 mmol/L [facility] BUN 14 6 - 25 mg/dL [facility] Creatinine 0.83 0.80 - 1.30 mg/dL [facility] Glucose 98 70 - 199 mg/dL [facility] Comment: Interpretive Data Fasting glucose >/= 126 mg/dl is diagnostic for diabetes. Fasting is defined as no caloric intake for at least 8 hours. Fasting glucose between 100 mg/dl to 125 mg/dl is diagnostic of prediabetes. In a patient with classic symptoms of hyperglycemia or hyperglycemic crisis, a random glucose >/= 200 mg/dl is diagnostic for diabetes. In the absence of unequivocal hyperglycemia, results should be confirmed by repeat testing. The classification and Diagnosis of Diabetes Diabetes Care 202; 46: S19-S40. Current interpretive data was last revised 2022. Calcium 7.7(L) 8.5 - 10.3 mg/dL [facility] Bilirubin, total 0.6 0.1 - 1.2 mg/dL [facility] Protein, pl 5.0(L) 6.5 - 8.5 g/dL [facility] Albumin 2.2(L) 3.5 - 5.0 g/dL [facility] Alk phos 139(H) 40 - 130 Units/L [facility] ALT 20 7 - 55 Units/L [facility] AST 46 10 - 50 Units/L [facility] Blood 09/06/2024 12:4 1 AM CDT 09/06/2024 12:55 AM CDT us Smith Sawyer MD LAB BLOOD ORDERABLES Lila l Result [facility] One [facility] [place] [address] * eGFR (09/05/2024 1:43 AM CDT) eGFR 89 >=60 mL/min/1. 73 m2 Comment: Interpretive Data Reference Interval Normal >/= 90 mL/min/1.73m2 Mildly decreased* 60 - 89 mL/min/1.73m2 Mildly to moderately decreased 45 - 59 mL/min/1.73m2 Moderately to severely decreased 30 - 44 mL/min/1.73m2 Severely decreased 15 - 29 mL/min/1.73m2 Kidney Failure < 15 mL/min/1.73m2 *Relative to young adult level Estimated glomerular filtration rate is determined by the 2020 CKD-EPI equation recommended by the National Kidney Foundation (A Unifying Approach to GFR Estimation: Recommendations of the NKF-ASK Task Force on Reassessing the Inclusion of Race in Diagnosing Kidney Disease, JASN 2020). The CKD-EPI equation should not be used for patients with unstable renal function and has not been validated in children and those over 70. Current interpretive data was last reviewed 2021. Blood 09/05/2024 1:43 AM CDT 09/05/2024 2:00 AM CDT us Smith Sawyer MD LAB BLOOD ORDERABLES Lila euince Result [facility] One [facility] [place] [address] * (ABNORMAL) Differential, auto (09/05/2024 1:43 AM CDT) Neutrophil abs 3.92 1.50 - 6.50 K/cumm Imm gran abs 0.04 0.00 - 0.10 K/cumm [facility] Lymphocyte abs 0.28(L) 0.80 - 3.30 K/cumm [facility] Monocyte abs 0.58 0.20 - 0.80 K/cumm [facility] Eosinophil abs 0.00 0.00 - 0.50 K/cumm [facility] Basophil abs 0.00 0.00 - 0.10 K/cumm [facility] Neutrophil pct 81.4 % [facility] Comment: Interpretive Data Percent cell count reference ranges are not reported, since discordance with absolute values may lead to misinterpretation of CBC data. Current Interpretive Data was last revised on 2017. Imm gran pct 0.8 % [facility] Comment: Interpretive Data Percent cell count reference ranges are not reported, since discordance with absolute values may lead to misinterpretation of CBC data. Current Interpretive Data was last revised on 2017. Lymphocyte pct 5.8 % [facility] Comment: Interpretive Data Percent cell count reference ranges are not reported, since discordance with absolute values may lead to misinterpretation of CBC data. Current Interpretive Data was last revised on 2017. Monocyte pct 12.0 % [facility] Comment: Interpretive Data Percent cell count reference ranges are not reported, since discordance with absolute values may lead to misinterpretation of CBC data. Current Interpretive Data was last revised on 2017. Eosinophil pct 0.0 % [facility] Comment: Interpretive Data Percent cell count reference ranges are not reported, since discordance with absolute values may lead to misinterpretation of CBC data. Current Interpretive Data was last revised on 2017. Basophil pct 0.0 % [facility] Comment: Interpretive Data Percent cell count reference ranges are not reported, since discordance with absolute values may lead to misinterpretation of CBC data. Current Interpretive Data was last revised on 2017. Blood 09/05/2024 1:43 AM CDT 09/05/2024 2:00 AM CDT us Smith Sawyer MD LAB BLOOD ORDERABLES Lila dawson Result [facility] One [facility] [place] [address] * (ABNORMAL) CBC with auto differential (09/05/2024 1:43 AM CDT) WBC 4.82 3.80 - 9.90 K/cumm Hgb 9.2(L) 13.0 - 17.5 g/dL [facility] Hct 26.3(L) 38.9 - 50.3 % [facility] Plt 82(L) 150 - 400 K/cumm [facility] MPV 11.8 9.1 - 12.3 fL [facility] RBC 2.47(L) 4.30 - 5.80 M/cumm [facility] MCV 106.5(H) 81.3 - 96.4 fL [facility] MCH 37.2(H) 27.1 - 33.3 pg [facility] MCHC 35.0 32.3 - 35.7 g/dL [facility] RDW CV 19.3(H) 11.1 - 14.9 % [facility] RDW SD 75.1(H) 35.7 - 48.1 fL [facility] NRBC abs 0.00 0.00 - 0.01 K/cumm [facility] Blood 09/05/2024 1:43 AM CDT 09/05/2024 2:00 AM CDT us Smith Sawyer MD LAB BLOOD ORDERABLES Lila l Result [facility] One [facility] [place] [address] * (ABNORMAL) Protime-INR (09/05/2024 1:43 AM CDT) PT 21.5(H) 9.7 - 13.0 sec INR 1.96(H) 0.90 - 1.20 [facility] Comment: Interpretive data Oral anticoagulant therapeutic ranges: Venous thromboembolism prophylaxis or treatment: 2.0-3.0 CARDIOLOGY Standard range: 2.0-3.0 High-intensity range: 2.5-3.5 Refer to indication-specific guidelines for appropriate target ranges for prosthetic heart valve replacement. Current interpretive data was last revised on 2019. Blood 09/05/2024 1:43 AM CDT 09/05/2024 2:05 AM CDT Zuleima [place] MD LAB BLOOD ORDERABLES Lila l Result Performing Organization Address City/[facility]/ZIP Co de Phone Number [facility] One [facility] [place] [address] * Phosphorus (09/05/2024 1:43 AM CDT) Pathologist [facility] Phosphorus, pl 4.1 2.3 - 4.5 mg/dL Blood 09/05/2024 1:43 AM CDT 09/05/2024 2:00 AM CDT Smith Sawyer MD LAB BLOOD ORDERABLES Lila l Result Performing Organization Address [facility] Co de Phone Number [facility] One [facility] [place] [address] * (ABNORMAL) Comprehensive metabolic panel (09/05/2024 1:43 AM CDT) [facility] Sodium 138 135 - 145 mmol/L Potassium, pl 3.6 3.3 - 4.9 mmol/L [facility] Chloride 97 97 - 110 mmol/L [facility] CO2 33(H) 22 - 32 mmol/L [facility] Anion gap 8 2 - 15 mmol/L [facility] BUN 13 6 - 25 mg/dL [facility] Creatinine 0.90 0.80 - 1.30 mg/dL [facility] Glucose 110 70 - 199 mg/dL [facility] Comment: Interpretive Data Fasting glucose >/= 126 mg/dl is diagnostic for diabetes. Fasting is defined as no caloric intake for at least 8 hours. Fasting glucose between 100 mg/dl to 125 mg/dl is diagnostic of prediabetes. In a patient with classic symptoms of hyperglycemia or hyperglycemic crisis, a random glucose >/= 200 mg/dl is diagnostic for diabetes. In the absence of unequivocal hyperglycemia, results should be confirmed by repeat testing. The classification and Diagnosis of Diabetes Diabetes Care 2021; 46: S19-S40. Current interpretive data was last revised 2022. Calcium 8.0(L) 8.5 - 10.3 mg/dL [facility] Bilirubin, total 0.6 0.1 - 1.2 mg/dL [facility] Protein, pl 5.3(L) 6.5 - 8.5 g/dL [facility] Albumin 2.7(L) 3.5 - 5.0 g/dL [facility] Alk phos 135(H) 40 - 130 Units/L [facility] ALT 22 7 - 55 Units/L [facility] AST 44 10 - 50 Units/L [facility] Blood 09/05/2024 1:43 AM CDT 09/05/2024 2:00 AM CDT us Smith Sawyer MD LAB BLOOD ORDERABLES Lila l Result [facility] [place] [address] * XR Chest 1 View (09/04/2024 11:51 AM CDT) Anatomical Region Laterality Modality Body, Chest N/A Computed Radiogr aphy 09/04/2024 11:5 4 AM CDT Impressions 09/04/2024 1:10 PM CDT No comparison radiograph dated 09/03/2024. Right internal jugular approach chest port catheter tip overlies the superior cavoatrial junction. Left subclavian approach pacemaker with leads overlying the right atrium and right ventricle. Small lung volumes. Unchanged mild to moderate right basilar and left lower lung atelectasis. No pneumothorax. Stable cardiomediastinal silhouette. Dictated by: Jennifer Goodwin MD The radiology attending physician has personally reviewed this study, and had reviewed and/or edited this written report and agrees with it. Electronically signed by: Trever Mclean M.D. Narrative 09/04/2024 1:10 PM CDT EXAMINATION: 1 view chest radiograph Procedure Note Trever Mclean MD - 09/04/2024 EXAMINATION: 1 view chest radiograph IMPRESSION: No comparison radiograph dated 09/03/2024. Right internal jugular approach chest port catheter tip overlies the superior cavoatrial junction. Left subclavian approach pacemaker with leads overlying the right atrium and right ventricle. Small lung volumes. Unchanged mild to moderate right basilar and left lower lung atelectasis. No pneumothorax. Stable cardiomediastinal silhouette. Dictated by: Jennifer Goodwin MD The radiology attending physician has personally reviewed this study, and had reviewed and/or edited this written report and agrees with it. Electronically signed by: Trever Mclean M.D. us Francisco Sahu MD IMG XR PROCEDURES Lila l Result * TRANSTHORACIC ECHO (TTE) LIMITED/FOLLOW UP W LTD DOPPLER/CF W CONTRAST (09/04/2024 9:52 AM CDT) EF Mod BP 66 % CONS SCIMAGE Anatomical Region Laterality Modality Ultrasound 09/04/2024 8:53 AM CDT Narrative 09/04/2024 11:04 AM CDT [facility] [place] [address] Transthoracic Echocardiographic Report Patient Name: SULMA BAZAN AL : 1950 (74y 1m) Gender: M Study Date: 09/04/2024 08:53:34 Ht(Inch): 70 Wt(Lb): 218.03 BSA: 2.21 [employer]: mary cross Location: [id number] Order Provider: FRANCISCO SAHU Heart Rate: 60 BMI: 31.28 BP: 117 / 78 Ref Provider: FRANCISCO SAHU PROCEDURES: Echocardiographic Report: Limited transthoracic 2D echo with contrast, includes spectral and tissue Doppler, color flow Doppler, and/or M-mode, when performed. Additional Procedures: Myocardial strain imaging was performed. Contrast: 1.1 ml Optison Administered, (1.9 ml wasted). INDICATIONS: B/l leg swelling, hypoxia, lori BNP, r/oHF. CONCLUSIONS: 1. Concentric LV remodeling. Normal left ventricular systolic function. The Ejection Fraction (Tatum's) is measured at 66 %. Cannot determine diastolic function or LA pressure. The average global longitudinal strain is normal. The LV global strain is: -27.1 %. No left ventricular thrombus visualized. 2. Right ventricular dilatation. Mild right ventricular hypokinesis. Wire noted in the right heart. 3. Moderate mitral valve prolapse involving the posterior mitral leaflet with an eccentric jet that is at least moderate in severity (Coanda effect). 4. Aortic sclerosis without significant stenosis. Mild aortic insufficiency. 5. Mild tricuspid insufficiency with mildly increased estimated pulmonary artery systolic pressure. 6. Dilated IVC. 7. Physiologic pericardial effusion. ATTESTATION: I have personally reviewed and interpreted this study without fellow or resident. - DISCLAIMER: The study images and the final report will be retained in the patient chart by the Echo Laboratory for the legally required time period. This chart constitutes the legal record of any testing performed. FINDINGS: Left Ventricle: Concentric LV remodeling. Normal left ventricular systolic function. The Ejection Fraction (Tatum's) is measured at 66 %. Cannot determine diastolic function or LA pressure. The average global longitudinal strain is normal. The LV global strain is: -27.1 %. No left ventricular thrombus visualized. Right Ventricle: Right ventricular dilatation. Mild right ventricular hypokinesis. Wire noted in the right heart. Left Atrium: Severely dilated left atrium. Right Atrium: The right atrium is normal in size. Mitral Valve: Anterior and posterior mitral valve leaflets appear thickened. Moderate mitral valve regurgitation. The mitral regurgitation jet is eccentric and spread along the left atrial wall and may underestimate the severity of the MR. The mean transmitral gradient is: 2 mmHg. Specific MV Structure Abnormalities: Moderate mitral valve prolapse involving the posterior mitral leaflet. Aortic Valve: Trileaflet aortic valve. Mildly thickened aortic valve leaflets. Mild aortic valve regurgitation. No aortic valve stenosis. The mean transaortic gradient is 5 mmHg. The aortic valve area by the continuity equation (using VTI) is 3.42 cm2. Aortic valve dimensionless index is 0.69. Tricuspid Valve: Normal tricuspid valve structure. Mild tricuspid regurgitation. No tricuspid valve stenosis. Pulmonic Valve: Normal pulmonic valve structure. No pulmonic regurgitation. No pulmonic valve stenosis present. Pericardium: Physiologic pericardial effusion. Aorta: Mild aortic root dilation at sinuses of Valsalva. Normal aortic root size when indexed. IVC: IVC is dilated. PASP: Estimated pulmonary artery systolic pressure is consistent with mild pulmonary hypertension (35-50mmHg). Rhythm: Indeterminate cardiac rhythm. MEASUREMENTS: 2D/MM Value Range Doppler Value Range LVIDd 2D 4.83 cm [ 4.20 - 5.80 ] AV Peak Celso 1.6 m/s [ 1.0 - 1.7 ] LVIDs 2D 3.12 cm [ 2.50 - 4.00 ] AV Peak PG 10.24 mmHg IVSd 2D 1.27 cm [ 0.60 - 1.00 ] AV Mean PG 5 mmHg LVPWd 2D 1.23 cm [ 0.60 - 1.00 ] AV VTI 29.0 cm LV Thickness Ratio 1.0 LVOT Peak Celso 1.1 m/s [ 0.7 - 1.1 ] LV FS 2D 35.48 % [ 25.00 - 43.00 ] LVOT Peak PG 4.84 mmHg LV Mass 2D 238.13 g LVOT Mean PG 2 mmHg LV Mass Index 2D 107.75 g/m2 LVOT VTI 19.9 cm RWT 0.51 LVOT Diam 2.52 cm EDV Mod BP 164.04 ml [ 62.00 - 150.00 ] ROBERT VTI 3.42 cm2 LV EDV Index 74.23 ml/m2 LVOT/AV VTI 0.69 - Dimensionless index (DVI) ESV Mod BP 55.97 ml [ 21.00 - 61.00 ] AI Peak Celso 5.9 m/s EF Mod BP 66 % [ 52 - 72 ] AI Peak PG 138 mmHg LV GLS -27.1 % [ -25.0 - -18.0 ] AI Decel Time 1616.48 sec LA Length 4C 6.12 cm AI Decel [place] 3.63 m/s2 LA Length 2C 7.21 cm AI PHT 468.78 msec LA Volume BP 133.31 ml MV E Peak Celso 0.9 m/s [ 0.6 - 1.3 ] LA Volume Index 60.32 ml/m2 [ 16.00 - 34.00 ] MV A Peak Celso 0.9 m/s [ 1.0 - 1.2 ] RV Base Dimen 2D 4.6 cm [ 2.5 - 4.2 ] MV E/A 1.0 ratio [ 0.8 - 1.5 ] RA Volume 36.09 ml MV Peak Celso 1.0 m/s RA Volume Index 16.33 ml/m2 MV Peak PG 4.00 mmHg AoR Diam 2D 4.20 cm [ 3.10 - 3.70 ] MV Mean PG 2 mmHg Ao Root Index 1.90 cm/m2 [ 1.00 - 2.00 ] MV VTI 39.3 cm MV Decel Time 289.61 msec [ 104.00 - 258.00 ] Med E` Celso 5.8 cm/sec [ 8.0 - 25.0 ] Lat E` Celso 8.2 cm/sec [ 10.0 - 25.0 ] Average E/E` 12.86 MR Peak Celso 5.5 m/s MR Peak PG 121.00 mmHg MR Mean PG 104 mmHg MR VTI 202.7 cm TR Peak Celso 2.7 m/s [ 1.0 - 2.8 ] TR Peak PG 29.2 mmHg PV Peak Celso 0.6 m/s [ 0.4 - 0.8 ] PV Peak PG 1.44 mmHg Electronically Signed By: Gilberto Fish MD 09/04/2024 11:03:58 CDT Procedure Note Gilberto Fish MD - 09/04/2024 [facility] [place] [address] Transthoracic Echocardiographic Report Patient Name: SULMA BAZAN ZAID : 1950 (74y 1m) Gender: M Study Date: 09/04/2024 08:53:34 Ht(Inch): 70 Wt(Lb): 218.03 BSA: 2.21 [employer]: mary cross Location: [place] [address] Order Provider:FRANCISCO SAHU Heart Rate: 60 BMI: 31.28 BP: 117 / 78 Ref Provider: FRANCISCO SAHU PROCEDURES: Echocardiographic Report: Limited transthoracic 2D echo with contrast,includes spectral and tissue Doppler, color flow Doppler, and/or M-mode, when performed. Additional Procedures: Myocardial strain imaging was performed. Contrast: 1.1 ml Optison Administered, (1.9 ml wasted). INDICATIONS: B/l leg swelling, hypoxia, lori BNP, r/oHF. CONCLUSIONS: 1. Concentric LV remodeling. Normal left ventricular systolic function.The Ejection Fraction (Tatum's) is measured at 66 %. Cannot determine diastolicfunction or LA pressure. The average global longitudinal strain is normal. The LV globalstrain is: -27.1 %. No left ventricular thrombus visualized. 2. Right ventricular dilatation. Mild right ventricular hypokinesis. Wirenoted in the right heart. 3. Moderate mitral valve prolapse involving the posterior mitral leafletwith an eccentric jet that is at least moderate in severity (Coanda effect). 4. Aortic sclerosis without significant stenosis. Mild aorticinsufficiency. 5. Mild tricuspid insufficiency with mildly increased estimated pulmonaryartery systolic pressure. 6. Dilated IVC. 7. Physiologic pericardial effusion. ATTESTATION: I have personally reviewed and interpreted this study without fellow orresident. - DISCLAIMER: The study images and the final report will be retained in the patientchart by the Echo Laboratory for the legally required time period. This chart constitutesthe legal record of any testing performed. FINDINGS: Left Ventricle: Concentric LV remodeling. Normal left ventricular systolicfunction. The Ejection Fraction (Tatum's) is measured at 66 %. Cannot determinediastolic function or LA pressure. The average global longitudinal strain is normal. The LVglobal strain is: -27.1 %. No left ventricular thrombus visualized. Right Ventricle: Right ventricular dilatation. Mild right ventricularhypokinesis. Wire noted in the right heart. Left Atrium: Severely dilated left atrium. Right Atrium: The right atrium is normal in size. Mitral Valve: Anterior and posterior mitral valve leaflets appearthickened. Moderate mitral valve regurgitation. The mitral regurgitation jet is eccentric andspread along the left atrial wall and may underestimate the severity of the MR. Themean transmitral gradient is: 2 mmHg. Specific MV Structure Abnormalities: Moderate mitralvalve prolapse involving the posterior mitral leaflet. Aortic Valve: Trileaflet aortic valve. Mildly thickened aortic valveleaflets. Mild aortic valve regurgitation. No aortic valve stenosis. The mean transaorticgradient is 5 mmHg. The aortic valve area by the continuity equation (using VTI) is 3.42cm2. Aortic valve dimensionless index is 0.69. Tricuspid Valve: Normal tricuspid valve structure. Mild tricuspidregurgitation. No tricuspid valve stenosis. Pulmonic Valve: Normal pulmonic valve structure. No pulmonicregurgitation. No pulmonic valve stenosis present. Pericardium: Physiologic pericardial effusion. Aorta: Mild aortic root dilation at sinuses of Valsalva. Normal aorticroot size when indexed. IVC: IVC is dilated. PASP: Estimated pulmonary artery systolic pressure is consistent with mildpulmonary hypertension (35-50mmHg). Rhythm: Indeterminate cardiac rhythm. MEASUREMENTS: 2D/MM Value Range DopplerValue Range LVIDd 2D 4.83 cm [ 4.20 - 5.80 ] AV Peak Vel1.6 m/s [ 1.0 - 1.7 ] LVIDs 2D 3.12 cm [ 2.50 - 4.00 ] AV Peak PG10.24 mmHg IVSd 2D 1.27 cm [ 0.60 - 1.00 ] AV Mean PG5 mmHg LVPWd 2D 1.23 cm [ 0.60 - 1.00 ] AV VTI29.0 cm LV Thickness Ratio 1.0 LVOT Peak Vel1.1 m/s [ 0.7 - 1.1 ] LV FS 2D 35.48 % [ 25.00 - 43.00 ] LVOT Peak PG4.84 mmHg LV Mass 2D 238.13 g LVOT Mean PG2 mmHg LV Mass Index 2D 107.75 g/m2 LVOT VTI19.9 cm RWT 0.51 LVOT Diam2.52 cm EDV Mod BP 164.04 ml [ 62.00 - 150.00 ] ROBERT VTI3.42 cm2 LV EDV Index 74.23 ml/m2 LVOT/AV VTI0.69 - Dimensionless index (DVI) ESV Mod BP 55.97 ml [ 21.00 - 61.00 ] AI Peak Vel5.9 m/s EF Mod BP 66 % [ 52 - 72 ] AI Peak PG138 mmHg LV GLS -27.1 % [ -25.0 - -18.0 ] AI Decel Ugxf0025.48 sec LA Length 4C 6.12 cm AI Decel Slope3.63 m/s2 LA Length 2C 7.21 cm AI WLU902.78 msec LA Volume BP 133.31 ml MV E Peak Vel0.9 m/s [ 0.6 - 1.3 ] LA Volume Index 60.32 ml/m2 [ 16.00 - 34.00 ] MV A Peak Vel0.9 m/s [ 1.0 - 1.2 ] RV Base Dimen 2D 4.6 cm [ 2.5 - 4.2 ] MV E/A1.0 ratio [ 0.8 - 1.5 ] RA Volume 36.09 ml MV Peak Vel1.0 m/s RA Volume Index 16.33 ml/m2 MV Peak PG4.00 mmHg AoR Diam 2D 4.20 cm [ 3.10 - 3.70 ] MV Mean PG2 mmHg Ao Root Index 1.90 cm/m2 [ 1.00 - 2.00 ] MV VTI39.3 cm MV Decel Time 289.61 msec [ 104.00 - 258.00] Med E` Celso 5.8 cm/sec [ 8.0 - 25.0 ] Lat E` Celso 8.2 cm/sec [ 10.0 - 25.0 ] Average E/E` 12.86 MR Peak Celso 5.5 m/s MR Peak PG 121.00 mmHg MR Mean PG 104 mmHg MR VTI 202.7 cm TR Peak Celso 2.7 m/s [ 1.0 - 2.8 ] TR Peak PG 29.2 mmHg PV Peak Ceslo 0.6 m/s [ 0.4 - 0.8 ] PV Peak PG 1.44 mmHg Electronically Signed By: Gilberto Fish MD 09/04/2024 11:03:58 CDT us Francisco Sahu MD CV ECHO PROCEDURES Fin al Result * eGFR (09/04/2024 12:25 AM CDT) eGFR >90 >=60 mL/min/1. 73 m2 Comment: Interpretive Data Reference Interval Normal >/= 90 mL/min/1.73m2 Mildly decreased* 60 - 89 mL/min/1.73m2 Mildly to moderately decreased 45 - 59 mL/min/1.73m2 Moderately to severely decreased 30 - 44 mL/min/1.73m2 Severely decreased 15 - 29 mL/min/1.73m2 Kidney Failure < 15 mL/min/1.73m2 *Relative to young adult level Estimated glomerular filtration rate is determined by the 2020 CKD-EPI equation recommended by the National Kidney [employer] (A Unifying Approach to GFR Estimation: Recommendations of the NKF-ASK Task Force on Reassessing the Inclusion of Race in Diagnosing Kidney Disease, JASN 2020). The CKD-EPI equation should not be used for patients with unstable renal function and has not been validated in children and those over 70. Current interpretive data was last reviewed 2021. Blood 09/04/2024 12:2 5 AM CDT 09/04/2024 1:13 AM CDT us Smith Sawyer MD LAB BLOOD ORDERABLES Lila l Result [facility] [place] [address] * (ABNORMAL) Differential, auto (09/04/2024 12:25 AM CDT) Neutrophil abs 2.69 1.50 - 6.50 K/cumm Imm gran abs 0.01 0.00 - 0.10 K/cumm [facility] Lymphocyte abs 0.25(L) 0.80 - 3.30 K/cumm [facility] Monocyte abs 0.42 0.20 - 0.80 K/cumm [facility] Eosinophil abs 0.00 0.00 - 0.50 K/cumm [facility] Basophil abs 0.01 0.00 - 0.10 K/cumm [facility] Neutrophil pct 79.6 % [facility] Comment: Interpretive Data Percent cell count reference ranges are not reported, since discordance with absolute values may lead to misinterpretation of CBC data. Current Interpretive Data was last revised on 2017. Imm gran pct 0.3 % [facility] Comment: Interpretive Data Percent cell count reference ranges are not reported, since discordance with absolute values may lead to misinterpretation of CBC data. Current Interpretive Data was last revised on 2017. Lymphocyte pct 7.4 % [facility] Comment: Interpretive Data Percent cell count reference ranges are not reported, since discordance with absolute values may lead to misinterpretation of CBC data. Current Interpretive Data was last revised on 2017. Monocyte pct 12.4 % [facility] Comment: Interpretive Data Percent cell count reference ranges are not reported, since discordance with absolute values may lead to misinterpretation of CBC data. Current Interpretive Data was last revised on 2017. Eosinophil pct 0.0 % [facility] Comment: Interpretive Data Percent cell count reference ranges are not reported, since discordance with absolute values may lead to misinterpretation of CBC data. Current Interpretive Data was last revised on 2017. Basophil pct 0.3 % [facility] Comment: Interpretive Data Percent cell count reference ranges are not reported, since discordance with absolute values may lead to misinterpretation of CBC data. Current Interpretive Data was last revised on 2017. Blood 09/04/2024 12:2 5 AM CDT 09/04/2024 1:15 AM CDT us Smith Sawyer MD LAB BLOOD ORDERABLES Lila dawson Result [facility] [place] [address] * (ABNORMAL) Pro B-type natriuretic peptide (09/04/2024 12:25 AM CDT) Pathologist [facility] NT-proBNP 1,527(H) <=450 pg/mL Comment: Interpretive Comments: A. Dyspnea in Acute Care Setting All Ages: < 300 pg/ml, acute heart failure unlikely. < 50 yrs: 300 - 450 pg/ml, further investigation warranted. > 450 pg/ml, acute heart failure likely. 50 - 74 yrs: 300 - 900 pg/ml, further investigation warranted. > 900 pg/ml, acute heart failure likely . > or = 75 yrs: 450 - 1800 pg/ml, further investigation warranted. > 1800 pg/ml, acute heart failure likely. B. Non-acute Setting < 75 yrs < 125 pg/ml, rules out heart failure. > or = 125 pg/ml, further investigation warranted. > or = 75 yrs < 450 pg/ml, rules out heart failure. > or = 450 pg/ml, further investigation warranted. - Knowledge of each individual patient's NT-proBNP range may be more useful than using similar cut-points for every patient. Please note that marked elevations in NT-proBNP levels may be observed in state other than Left Ventricular Congestive Failure, including: acute coronary syndromes, right heart strain/failure (including pulmonary embolism and cor pulmonale), critical illness, renal failure, as well as advanced age. - References: 1. April JL et.al. Eur Heart J. 2006:27:330-337. 2. Taylor RW, Cyndee SIMMONS. J. AM Sarah Cardiol: Cardiovasc Imag. 2009;2: 216- 225. Interpretive Data Last Revised Date: 2017. Blood 09/04/2024 12:2 5 AM CDT 09/04/2024 1:13 AM CDT us Francisco Sahu MD LAB BLOOD ORDERABLES F inal Result [facility] [place] [address] * (ABNORMAL) CBC with auto differential (09/04/2024 12:25 AM CDT) Pathologist [facility] WBC 3.38(L) 3.80 - 9.90 K/cumm Hgb 8.9(L) 13.0 - 17.5 g/dL [facility] Hct 26.1(L) 38.9 - 50.3 % [facility] Plt 74(L) 150 - 400 K/cumm [facility] MPV 11.9 9.1 - 12.3 fL [facility] RBC 2.45(L) 4.30 - 5.80 M/cumm [facility] MCV 106.5(H) 81.3 - 96.4 fL [facility] MCH 36.3(H) 27.1 - 33.3 pg [facility] MCHC 34.1 32.3 - 35.7 g/dL [facility] RDW CV 19.5(H) 11.1 - 14.9 % [facility] RDW SD 74.8(H) 35.7 - 48.1 fL [facility] NRBC abs 0.00 0.00 - 0.01 K/cumm [facility] Blood 09/04/2024 12:2 5 AM CDT 09/04/2024 1:15 AM CDT us Smith Sawyer MD LAB BLOOD ORDERABLES Lila dawson Result [facility] [place] [address] * (ABNORMAL) Protime-INR (09/04/2024 12:25 AM CDT) PT 18.3(H) 9.7 - 13.0 sec INR 1.68(H) 0.90 - 1.20 [facility] Comment: Interpretive data Oral anticoagulant therapeutic ranges: Venous thromboembolism prophylaxis or treatment: 2.0-3.0 CARDIOLOGY Standard range: 2.0-3.0 High-intensity range: 2.5-3.5 Refer to indication-specific guidelines for appropriate target ranges for prosthetic heart valve replacement. Current interpretive data was last revised on 2019. Blood 09/04/2024 12:2 5 AM CDT 09/04/2024 1:11 AM CDT Zuleima Levine MD LAB BLOOD ORDERABLES Lila l Result [facility] [place] [address] * Phosphorus (09/04/2024 12:25 AM CDT) Pathologist [facility] Phosphorus, pl 3.0 2.3 - 4.5 mg/dL Blood 09/04/2024 12:2 5 AM CDT 09/04/2024 1:13 AM CDT Smith Sawyer MD LAB BLOOD ORDERABLES Lila l Result Performing Organization Address [facility] Co de Phone Number [facility] [place] [address] * (ABNORMAL) Comprehensive metabolic panel (09/04/2024 12:25 AM CDT) [facility] Sodium 137 135 - 145 mmol/L Potassium, pl 4.1 3.3 - 4.9 mmol/L [facility] Chloride 101 97 - 110 mmol/L [facility] CO2 29 22 - 32 mmol/L [facility] Anion gap 7 2 - 15 mmol/L [facility] BUN 15 6 - 25 mg/dL [facility] Creatinine 0.80 0.80 - 1.30 mg/dL [facility] Glucose 125 70 - 199 mg/dL [facility] Comment: Interpretive Data Fasting glucose >/= 126 mg/dl is diagnostic for diabetes. Fasting is defined as no caloric intake for at least 8 hours. Fasting glucose between 100 mg/dl to 125 mg/dl is diagnostic of prediabetes. In a patient with classic symptoms of hyperglycemia or hyperglycemic crisis, a random glucose >/= 200 mg/dl is diagnostic for diabetes. In the absence of unequivocal hyperglycemia, results should be confirmed by repeat testing. The classification and Diagnosis of Diabetes Diabetes Care 2021; 46: S19-S40. Current interpretive data was last revised 2022. Calcium 8.2(L) 8.5 - 10.3 mg/dL [facility] Bilirubin, total 0.5 0.1 - 1.2 mg/dL [facility] Protein, pl 5.2(L) 6.5 - 8.5 g/dL [facility] Albumin 2.6(L) 3.5 - 5.0 g/dL [facility] Alk phos 96 40 - 130 Units/L [facility] ALT 20 7 - 55 Units/L [facility] AST 42 10 - 50 Units/L [facility] Blood 09/04/2024 12:2 5 AM CDT 09/04/2024 1:13 AM CDT us Smith Sawyer MD LAB BLOOD ORDERABLES Lila dawson Result Performing Organization Address City/State/[facility] Co de Phone Number [facility] [place] [address] * US Vein Duplex Lower Extremity Bilateral Complete (09/03/2024 3:52 PM CDT) Anatomical Region Laterality Modality Vascular Bilateral Ultrasound 09/03/2024 3:31 PM CDT Narrative 09/04/2024 4:15 PM CDT [facility] - Department of Vascular Surgery, Vascular Laboratory [address] [place] [address] Lower Extremity Venous Ultrasound Report Patient Name: SULMA BAZAN AL : 1950 (74y 1m) Study Date: 09/03/2024 3:31:25 PM Gender: M Tech: Location: [id number] Ref Provider: FRANCISCO SAHU Quality: Adequate Order Provider: FRANCISCO SAHU PROCEDURES: Vascular Report: Venous Duplex imaging was performed bilaterally in the lower extremities. The common femoral, femoral, popliteal, posterior tibial, peroneal veins were evaluated for patency, spontaneity and phasicity with Doppler, compression and augmentation maneuvers. Great saphenous vein proximal at the junction was evaluated with compression maneuvers. INDICATIONS: Swelling, Lower Extremity, Bilateral - FINDINGS: Performing [employer]: Alethea Osorio RVT, RDMS. Bilateral: Venous Doppler signals in the bilateral lower extremity are within normal limits for spontaneity and phasicity and respond normally to augmentation maneuvers. No evidence of deep vein thrombus by duplex, proximal to the calf. Comments: Non-vascular, anechoic structure noted in the left popliteal fossa may be consistent with a Ayala's cyst. Limited visualization of the deep calf veins due to edema. CONCLUSIONS: 1. There is no evidence of acute deep vein thrombosis in the lower extremities bilaterally. Noninvasive venous studies cannot rule out isolated calf vein obstruction. HISTORY: Acute hypoxemic respiratory failure, NIKUNJ, atrial fibrillation, CKD, HTN, cancer, HLD, DM2. PREVIOUS STUDIES: Previous study performed on 02-12-2024. Negative. Left Ayala's. DISCLAIMER: The study images and the final report will be retained in the patient chart by the Vascular Laboratory for the legally required time period. This chart constitutes the legal record of any testing performed. ATTESTATION: I have reviewed and interpreted the pertinent images and measurements of this study. I attest to the conclusions in the final report that is provided above. Electronically Signed By: Michael Torres MD FACS 09/04/2024 4:00:58 PM CDT Procedure Note Michael Torres MD - 09/04/2024 [facility] - Department of Vascular Surgery,Vascular Laboratory [address] [place] [id number] Lower Extremity Venous Ultrasound Report Patient Name: SULMA BAZAN AL : 1950 (74y 1m) Study Date: 09/03/2024 3:31:25 PM Gender: M Tech: Location: [id number] Ref Provider: FRANCISCO SAHU Quality: Adequate Order Provider: FRANCISCO SAHU PROCEDURES: Vascular Report: Venous Duplex imaging was performed bilaterally in the lower extremities.The common femoral, femoral, popliteal, posterior tibial, peroneal veins wereevaluated for patency, spontaneity and phasicity with Doppler, compression and augmentationmaneuvers. Great saphenous vein proximal at the junction was evaluated with compressionmaneuvers. INDICATIONS: Swelling, Lower Extremity, Bilateral - FINDINGS: Performing Electrician Underground: Alethea Osorio RVT, RDMS. Bilateral: Venous Doppler signals in the bilateral lower extremity are within normallimits for spontaneity and phasicity and respond normally to augmentation maneuvers.No evidence of deep vein thrombus by duplex, proximal to the calf. Comments: Non-vascular, anechoic structure noted in the left popliteal fossa may beconsistent with a Ayala's cyst. Limited visualization of the deep calf veins due to edema. CONCLUSIONS: 1. There is no evidence of acute deep vein thrombosis in the lowerextremities bilaterally. Noninvasive venous studies cannot rule out isolated calf veinobstruction. HISTORY: Acute hypoxemic respiratory failure, NIKUNJ, atrial fibrillation, CKD, HTN,cancer, HLD, DM2. PREVIOUS STUDIES: Previous study performed on 02-12-2024. Negative. Left Ayala's. DISCLAIMER: The study images and the final report will be retained in the patientchart by the Vascular Laboratory for the legally required time period. This chartconstitutes the legal record of any testing performed. ATTESTATION: I have reviewed and interpreted the pertinent images and measurements ofthis study. I attest to the conclusions in the final report that is provided above. Electronically Signed By: Michael Torres MD [facility] 09/04/2024 4:00:58 PM CDT us [place] Filippo Sahu MD [facility] [place] [facility] PROCEDURES Lila l Result * XR Chest 1 View (09/03/2024 6:37 AM CDT) Anatomical Region Laterality Modality Body, Chest N/A Computed Radiogr aphy 09/03/2024 7:06 AM CDT Impressions 09/03/2024 7:06 AM CDT Left subclavian atrial ventricular pacemaker and right internal jugular port catheter with tip at superior cavoatrial junction are again seen. Stable cardiomediastinal silhouette with normal heart size. Underexpanded lungs with mild to moderate right basilar atelectasis which is increased from the prior study, and mild left basilar atelectasis which is improved. Haziness and blunting of the right costophrenic angle may be due to the atelectasis or small pleural effusion. No pneumothorax. Electronically signed by: Trever Mclean M.D. Narrative 09/03/2024 7:06 AM CDT EXAMINATION: 1 view chest radiograph COMPARISON: 08/31/2024 Procedure Note Trever Mclean MD - 09/03/2024 EXAMINATION: 1 view chest radiograph COMPARISON: 08/31/2024 IMPRESSION: Left subclavian atrial ventricular pacemaker and right internal jugular port catheter with tip at superior cavoatrial junction are again seen. Stable cardiomediastinal silhouette with normal heart size. Underexpanded lungs with mild to moderate right basilar atelectasis which is increased from the prior study, and mild left basilar atelectasis which is improved. Haziness and blunting of the right costophrenic angle may be due to the atelectasis or small pleural effusion. No pneumothorax. Electronically signed by: Trever Mclean M.D. us Francisco Sahu MD IMG XR PROCEDURES Lila l Result * eGFR (09/03/2024 12:59 AM CDT) eGFR >90 >=60 mL/min/1. 73 m2 Comment: Interpretive Data Reference Interval Normal >/= 90 mL/min/1.73m2 Mildly decreased* 60 - 89 mL/min/1.73m2 Mildly to moderately decreased 45 - 59 mL/min/1.73m2 Moderately to severely decreased 30 - 44 mL/min/1.73m2 Severely decreased 15 - 29 mL/min/1.73m2 Kidney Failure < 15 mL/min/1.73m2 *Relative to young adult level Estimated glomerular filtration rate is determined by the 2020 CKD-EPI equation recommended by the National Kidney Foundation (A Unifying Approach to GFR Estimation: Recommendations of the NKF-ASK Task Force on Reassessing the Inclusion of Race in Diagnosing Kidney Disease, JASN 202). The CKD-EPI equation should not be used for patients with unstable renal function and has not been validated in children and those over 70. Current interpretive data was last reviewed 2021. Blood 09/03/2024 12:5 9 AM CDT 09/03/2024 1:14 AM CDT us Smith Sawyer MD LAB BLOOD ORDERABLES Lila l Result [place] [facility] [place] [address] * (ABNORMAL) Differential, auto (09/03/2024 12:59 AM CDT) Neutrophil abs 3.63 1.50 - 6.50 K/cumm Imm gran abs 0.03 0.00 - 0.10 K/cumm [facility] Lymphocyte abs 0.27(L) 0.80 - 3.30 K/cumm [facility] Monocyte abs 0.72 0.20 - 0.80 K/cumm [facility] Eosinophil abs 0.05 0.00 - 0.50 K/cumm [facility] Basophil abs 0.02 0.00 - 0.10 K/cumm [facility] Neutrophil pct 76.9 % [facility] Comment: Interpretive Data Percent cell count reference ranges are not reported, since discordance with absolute values may lead to misinterpretation of CBC data. Current Interpretive Data was last revised on 2017. Imm gran pct 0.6 % [facility] Comment: Interpretive Data Percent cell count reference ranges are not reported, since discordance with absolute values may lead to misinterpretation of CBC data. Current Interpretive Data was last revised on 2017. Lymphocyte pct 5.7 % [facility] Comment: Interpretive Data Percent cell count reference ranges are not reported, since discordance with absolute values may lead to misinterpretation of CBC data. Current Interpretive Data was last revised on 2017. Monocyte pct 15.3 % [facility] Comment: Interpretive Data Percent cell count reference ranges are not reported, since discordance with absolute values may lead to misinterpretation of CBC data. Current Interpretive Data was last revised on 2017. Eosinophil pct 1.1 % [facility] Comment: Interpretive Data Percent cell count reference ranges are not reported, since discordance with absolute values may lead to misinterpretation of CBC data. Current Interpretive Data was last revised on 2017. Basophil pct 0.4 % [facility] Comment: Interpretive Data Percent cell count reference ranges are not reported, since discordance with absolute values may lead to misinterpretation of CBC data. Current Interpretive Data was last revised on 2017. Blood 09/03/2024 12:5 9 AM CDT 09/03/2024 1:14 AM CDT Smith Sawyer MD LAB BLOOD ORDERABLES Lila l Result Performing Organization Address City/State/[facility] Co de Phone Number [facility] [place] [address] * (ABNORMAL) CBC with auto differential (09/03/2024 12:59 AM CDT) Pathologist [facility] WBC 4.72 3.80 - 9.90 K/cumm Hgb 9.1(L) 13.0 - 17.5 g/dL [facility] Hct 25.8(L) 38.9 - 50.3 % [facility] Plt 82(L) 150 - 400 K/cumm [facility] MPV 11.5 9.1 - 12.3 fL [facility] RBC 2.41(L) 4.30 - 5.80 M/cumm [facility] MCV 107.1(H) 81.3 - 96.4 fL [facility] MCH 37.8(H) 27.1 - 33.3 pg [facility] MCHC 35.3 32.3 - 35.7 g/dL [facility] RDW CV 19.9(H) 11.1 - 14.9 % [facility] RDW SD 76.8(H) 35.7 - 48.1 fL [facility] NRBC abs 0.00 0.00 - 0.01 K/cumm [facility] Blood 09/03/2024 12:5 9 AM CDT 09/03/2024 1:14 AM CDT Smith Sawyer MD LAB BLOOD ORDERABLES Lila l Result Performing Organization Address City/[facility] Co de Phone Number [facility] [place] [address] * (ABNORMAL) Protime-INR (09/03/2024 12:59 AM CDT) Pathologist [facility] PT 18.3(H) 9.7 - 13.0 sec INR 1.68(H) 0.90 - 1.20 [facility] Comment: Interpretive data Oral anticoagulant therapeutic ranges: Venous thromboembolism prophylaxis or treatment: 2.0-3.0 CARDIOLOGY Standard range: 2.0-3.0 High-intensity range: 2.5-3.5 Refer to indication-specific guidelines for appropriate target ranges for prosthetic heart valve replacement. Current interpretive data was last revised on 2019. Blood 09/03/2024 12:5 9 AM CDT 09/03/2024 1:18 AM CDT Zuleima Levine MD LAB BLOOD ORDERABLES Lila l Result Performing Organization Address City/[facility] Co de Phone Number [facility] [place] [address] * Type and screen (09/03/2024 12:59 AM CDT) Minna, indirect Negative ABO Rh A Positive [facility] Blood 09/03/2024 12:5 9 AM CDT 09/03/2024 1:31 AM CDT Narrative [facility] - 09/03/2024 3:30 AM CDT Has the patient had Daratumumab or Isatuximab in the past 6 months?->Unknown Result [facility] Smith Sawyer MD LAB BLOOD BANK TEST ORDER DEMETRIO Final Result Performing Organization Address [facility] Co de Phone Number [facility] [place] [address] * Uric acid (09/03/2024 12:59 AM CDT) Pathologist [facility] Uric acid 5.0 3.0 - 8.0 mg/dL Blood 09/03/2024 12:5 9 AM CDT 09/03/2024 1:14 AM CDT Narrative [facility] - 09/03/2024 1:43 AM CDT Saturday and only. Morning draw. . Smith Sawyer MD LAB BLOOD ORDERABLES Lila l Result Performing Organization Address City/[facility] Co de Phone Number [facility] [place] [place] [address] * Phosphorus (09/03/2024 12:59 AM CDT) Pathologist [facility] Phosphorus, pl 2.7 2.3 - 4.5 mg/dL Blood 09/03/2024 12:5 9 AM CDT 09/03/2024 1:14 AM CDT Smith Sawyer MD LAB BLOOD [place] [address] * Magnesium (09/03/2024 12:59 AM CDT) [facility] Magnesium 1.6 1.4 - 2.5 mg/dL Blood 09/03/2024 12:5 9 AM CDT 09/03/2024 1:14 AM CDT Result [facility] Zuelima Levine MD LAB BLOOD ORDERABLES Lila l Result Performing Organization Address City/[facility] [place] [address] * (ABNORMAL) Lactate dehydrogenase (LD) (09/03/2024 12:59 AM CDT) [facility] Lactate dehydrogenase (LDH) 356(H) 100 - 250 Units/L Blood 09/03/2024 12:5 9 AM CDT 09/03/2024 1:14 AM CDT Narrative [facility] - 09/03/2024 1:43 AM CDT Saturday and only. Morning draw. Smith Sawyer MD LAB BLOOD ORDERABLES Lila l Result [facility] [place] [employer] [place] [address] * (ABNORMAL) Comprehensive metabolic panel (09/03/2024 12:59 AM CDT) Sodium 133(L) 135 - 145 mmol/L Potassium, pl 3.1(L) 3.3 - 4.9 mmol/L [facility] Chloride 99 97 - 110 mmol/L [facility] CO2 28 22 - 32 mmol/L [facility] Anion gap 6 2 - 15 mmol/L [facility] BUN 15 6 - 25 mg/dL [facility] Creatinine 0.82 0.80 - 1.30 mg/dL [facility] Glucose 121 70 - 199 mg/dL [facility] Comment: Interpretive Data Fasting glucose >/= 126 mg/dl is diagnostic for diabetes. Fasting is defined as no caloric intake for at least 8 hours. Fasting glucose between 100 mg/dl to 125 mg/dl is diagnostic of prediabetes. In a patient with classic symptoms of hyperglycemia or hyperglycemic crisis, a random glucose >/= 200 mg/dl is diagnostic for diabetes. In the absence of unequivocal hyperglycemia, results should be confirmed by repeat testing. The classification and Diagnosis of Diabetes Diabetes Care 202; 46: S19-S40. Current interpretive data was last revised 2022. Calcium 7.9(L) 8.5 - 10.3 mg/dL [facility] Bilirubin, total 0.7 0.1 - 1.2 mg/dL [facility] Protein, pl 4.9(L) 6.5 - 8.5 g/dL [facility] Albumin 2.6(L) 3.5 - 5.0 g/dL [facility] Alk phos 86 40 - 130 Units/L [facility] ALT 22 7 - 55 Units/L [facility] AST 45 10 - 50 Units/L [facility] Blood 09/03/2024 12:5 9 AM CDT 09/03/2024 1:14 AM CDT us Smith Sawyer MD LAB BLOOD ORDERABLES Lila l Result [facility] [place] [address] * eGFR (09/02/2024 12:41 AM CDT) eGFR >90 >=60 mL/min/1. 73 m2 Comment: Interpretive Data Reference Interval Normal >/= 90 mL/min/1.73m2 Mildly decreased* 60 - 89 mL/min/1.73m2 Mildly to moderately decreased 45 - 59 mL/min/1.73m2 Moderately to severely decreased 30 - 44 mL/min/1.73m2 Severely decreased 15 - 29 mL/min/1.73m2 Kidney Failure < 15 mL/min/1.73m2 *Relative to young adult level Estimated glomerular filtration rate is determined by the 2020 CKD-EPI equation recommended by the National Kidney Foundation (A Unifying Approach to GFR Estimation: Recommendations of the NKF-ASK Task Force on Reassessing the Inclusion of Race in Diagnosing Kidney Disease, JASN 2020). The CKD-EPI equation should not be used for patients with unstable renal function and has not been validated in children and those over 70. Current interpretive data was last reviewed 2021. Blood 09/02/2024 12:4 1 AM CDT 09/02/2024 1:02 AM CDT us Smith Sawyer MD LAB BLOOD ORDERABLES Lila dawson Result [facility] [place] [address] * (ABNORMAL) Differential, auto (09/02/2024 12:41 AM CDT) Pathologist [facility] Neutrophil abs 4.18 1.50 - 6.50 K/cumm Imm gran abs 0.05 0.00 - 0.10 K/cumm [facility] Lymphocyte abs 0.41(L) 0.80 - 3.30 K/cumm [facility] Monocyte abs 0.83(H) 0.20 - 0.80 K/cumm [facility] Eosinophil abs 0.08 0.00 - 0.50 K/cumm [facility] Basophil abs 0.03 0.00 - 0.10 K/cumm [facility] Neutrophil pct 75.0 % [facility] Comment: Interpretive Data Percent cell count reference ranges are not reported, since discordance with absolute values may lead to misinterpretation of CBC data. Current Interpretive Data was last revised on 2017. Imm gran pct 0.9 % [facility] Comment: Interpretive Data Percent cell count reference ranges are not reported, since discordance with absolute values may lead to misinterpretation of CBC data. Current Interpretive Data was last revised on 2017. Lymphocyte pct 7.3 % [facility] Comment: Interpretive Data Percent cell count reference ranges are not reported, since discordance with absolute values may lead to misinterpretation of CBC data. Current Interpretive Data was last revised on 2017. Monocyte pct 14.9 % [facility] Comment: Interpretive Data Percent cell count reference ranges are not reported, since discordance with absolute values may lead to misinterpretation of CBC data. Current Interpretive Data was last revised on 2017. Eosinophil pct 1.4 % [facility] Comment: Interpretive Data Percent cell count reference ranges are not reported, since discordance with absolute values may lead to misinterpretation of CBC data. Current Interpretive Data was last revised on 2017. Basophil pct 0.5 % [facility] Comment: Interpretive Data Percent cell count reference ranges are not reported, since discordance with absolute values may lead to misinterpretation of CBC data. Current Interpretive Data was last revised on 2017. Blood 09/02/2024 12:4 1 AM CDT 09/02/2024 1:02 AM CDT us Smith Sawyer MD LAB BLOOD ORDERABLES Lila l Result [facility] Department of Laboratories [place], [place] [id number] * (ABNORMAL) CBC with auto differential (09/02/2024 12:41 AM CDT) WBC 5.58 3.80 - 9.90 K/cumm Hgb 9.9(L) 13.0 - 17.5 g/dL [facility] Hct 28.6(L) 38.9 - 50.3 % [facility] Plt 111(L) 150 - 400 K/cumm [facility] MPV 11.2 9.1 - 12.3 fL [facility] RBC 2.67(L) 4.30 - 5.80 M/cumm [facility] MCV 107.1(H) 81.3 - 96.4 fL [facility] MCH 37.1(H) 27.1 - 33.3 pg [facility] MCHC 34.6 32.3 - 35.7 g/dL [facility] RDW CV 20.9(H) 11.1 - 14.9 % [facility] RDW SD 80.1(H) 35.7 - 48.1 fL [facility] NRBC abs 0.00 0.00 - 0.01 K/cumm [facility] Blood 09/02/2024 12:4 1 AM CDT 09/02/2024 1:02 AM CDT us Smith Sawyer MD LAB BLOOD ORDERABLES Lila dawson Result [facility] [place] [address] * (ABNORMAL) Protime-INR (09/02/2024 12:41 AM CDT) PT 18.5(H) 9.7 - 13.0 sec INR 1.69(H) 0.90 - 1.20 [facility] Comment: Interpretive data Oral anticoagulant therapeutic ranges: Venous thromboembolism prophylaxis or treatment: 2.0-3.0 CARDIOLOGY Standard range: 2.0-3.0 High-intensity range: 2.5-3.5 Refer to indication-specific guidelines for appropriate target ranges for prosthetic heart valve replacement. Current interpretive data was last revised on 2019. Blood 09/02/2024 12:4 1 AM CDT 09/02/2024 1:02 AM CDT us Zuleima Levine MD LAB BLOOD ORDERABLES Lila l Result Performing Organization Address City/[facility]/ZIP Co de Phone Number [facility] [place] [employer] [place] [address] * Phosphorus (09/02/2024 12:41 AM CDT) [facility] Phosphorus, pl 2.4 2.3 - 4.5 mg/dL Blood 09/02/2024 12:4 1 AM CDT 09/02/2024 1:02 AM CDT us Smith Sawyer MD LAB BLOOD ORDERABLES Lila l Result Performing Organization Address City/[facility] Co de Phone Number [facility] [place] [employer] [place] [address] * Magnesium (09/02/2024 12:41 AM CDT) [facility] Magnesium 2.0 1.4 - 2.5 mg/dL Blood 09/02/2024 12:4 1 AM CDT 09/02/2024 1:02 AM CDT Zuleima Levine MD LAB BLOOD ORDERABLES Lila l Result Performing Organization Address [facility] Co de Phone Number [facility] [place] [employer] [place] [address] * (ABNORMAL) Comprehensive metabolic panel (09/02/2024 12:41 AM CDT) [facility] Sodium 140 135 - 145 mmol/L Potassium, pl 3.7 3.3 - 4.9 mmol/L [facility] Chloride 105 97 - 110 mmol/L [facility] CO2 23 22 - 32 mmol/L [facility] Anion gap 12 2 - 15 mmol/L [facility] BUN 14 6 - 25 mg/dL [facility] Creatinine 0.83 0.80 - 1.30 mg/dL [facility] Glucose 106 70 - 199 mg/dL [facility] Comment: Interpretive Data Fasting glucose >/= 126 mg/dl is diagnostic for diabetes. Fasting is defined as no caloric intake for at least 8 hours. Fasting glucose between 100 mg/dl to 125 mg/dl is diagnostic of prediabetes. In a patient with classic symptoms of hyperglycemia or hyperglycemic crisis, a random glucose >/= 200 mg/dl is diagnostic for diabetes. In the absence of unequivocal hyperglycemia, results should be confirmed by repeat testing. The classification and Diagnosis of Diabetes Diabetes Care 202; 46: S19-S40. Current interpretive data was last revised 2022. Calcium 7.8(L) 8.5 - 10.3 mg/dL [facility] Bilirubin, total 0.6 0.1 - 1.2 mg/dL [facility] Protein, pl 5.1(L) 6.5 - 8.5 g/dL [facility] Albumin 2.9(L) 3.5 - 5.0 g/dL [facility] Alk phos 92 40 - 130 Units/L [facility] ALT 23 7 - 55 Units/L [facility] AST 46 10 - 50 Units/L [facility] Blood 09/02/2024 12:4 1 AM CDT 09/02/2024 1:02 AM CDT us Smith Sawyer MD LAB BLOOD ORDERABLES Lila dawson Result Performing Organization Address City/State/[facility] Co de Phone Number [facility] [place] [address] * US Vein Duplex Upper Extremity Left Limited, Unilateral (09/01/2024 2:27 PM CDT) Anatomical Region Laterality Modality Vascular Left Ultrasound 09/01/2024 1:18 PM CDT Narrative 09/01/2024 6:11 PM CDT [facility] - Department of Vascular Surgery, Vascular Laboratory [address] [place] [address] Upper Extremity Venous Ultrasound Report Patient Name: SULMA BAZAN : 1950 (74y 1m) Study Date: 09/01/2024 1:18:26 PM Gender: M Tech: Location: [id number] Ref Provider: ZULEIMA LEVINE Quality: Adequate Order Provider: ZULEIMA LEVINE PROCEDURES: Vascular Report: Venous Duplex imaging was performed in the left upper extremity. The internal jugular, subclavian and axillary veins were evaluated for patency, spontaneity and phasicity with Doppler, compression and augmentation maneuvers. The brachial, basilic and cephalic veins were also evaluated with compression maneuvers. INDICATIONS: Hypoxemia. FINDINGS: Performing Electrician Underground: Mei Linn RVT. Left: Venous Doppler signals in the left upper extremity are within normal limits for spontaneity and phasicity; normal response to compression maneuvers. No evidence of superficial vein thrombus in the left upper extremity. Comments: Contralateral subclavian vein is imaged for comparison and is patent. Unilateral (limited study) performed per M.D. order. CONCLUSIONS: 1. No evidence of acute deep vein thrombosis in the left upper extremity. 2. No evidence of superficial vein thrombus in the left upper extremity. HISTORY: CKD, HLD, HTN, AF, DM2, Cancer, former smoker. PREVIOUS STUDIES: No previous studies for comparison. DISCLAIMER: The study images and the final report will be retained in the patient chart by the Vascular Laboratory for the legally required time period. This chart constitutes the legal record of any testing performed. ATTESTATION: I have reviewed and interpreted the pertinent images and measurements of this study. I attest to the conclusions in the final report that is provided above. Electronically Signed By: Maikel Gupta MD FACS 09/01/2024 5:21:16 PM CDT Procedure Note Maikel Gupta MD - 09/01/2024 [facility] - Department of Vascular Surgery,Vascular Laboratory [address] [place] [id number] Upper Extremity Venous Ultrasound Report Patient Name: SULMA BAZAN : 1950 (74y 1m) Study Date: 09/01/2024 1:18:26 PM Gender: M Tech: Location: [id number] Ref Provider: ZULEIMA LEVINE Quality: Adequate Order Provider: ZULEIMA LEVINE PROCEDURES: Vascular Report: Venous Duplex imaging was performed in the left upper extremity. Theinternal jugular, subclavian and axillary veins were evaluated for patency, spontaneity andphasicity with Doppler, compression and augmentation maneuvers. The brachial, basilic andcephalic veins were also evaluated with compression maneuvers. INDICATIONS: Hypoxemia. FINDINGS: Performing [employer]: Mei Linn RVT. Left: Venous Doppler signals in the left upper extremity are within normallimits for spontaneity and phasicity; normal response to compression maneuvers. Noevidence of superficial vein thrombus in the left upper extremity. Comments: Contralateral subclavian vein is imaged for comparison and is patent.Unilateral (limited study) performed per M.D. order. CONCLUSIONS: 1. No evidence of acute deep vein thrombosis in the left upperextremity. 2. No evidence of superficial vein thrombus in the left upper extremity. HISTORY: CKD, HLD, HTN, AF, DM2, Cancer, former smoker. PREVIOUS STUDIES: No previous studies for comparison. DISCLAIMER: The study images and the final report will be retained in the patientchart by the Vascular Laboratory for the legally required time period. This chartconstitutes the legal record of any testing performed. ATTESTATION: I have reviewed and interpreted the pertinent images and measurements ofthis study. I attest to the conclusions in the final report that is provided above. Electronically Signed By: Maikel Gupta MD [facility] 09/01/2024 5:21:16 PM CDT us Zuleima Levine MD [facility] PROCEDURES Final R esult * eGFR (09/01/2024 3:21 AM CDT) eGFR 83 >=60 mL/min/1. 73 m2 Comment: Interpretive Data Reference Interval Normal >/= 90 mL/min/1.73m2 Mildly decreased* 60 - 89 mL/min/1.73m2 Mildly to moderately decreased 45 - 59 mL/min/1.73m2 Moderately to severely decreased 30 - 44 mL/min/1.73m2 Severely decreased 15 - 29 mL/min/1.73m2 Kidney Failure < 15 mL/min/1.73m2 *Relative to young adult level Estimated glomerular filtration rate is determined by the 2020 CKD-EPI equation recommended by the National Kidney Foundation (A Unifying Approach to GFR Estimation: Recommendations of the NKF-ASK Task Force on Reassessing the Inclusion of Race in Diagnosing Kidney Disease, JASN 202). The CKD-EPI equation should not be used for patients with unstable renal function and has not been validated in children and those over 70. Current interpretive data was last reviewed 2021. Blood 09/01/2024 3:21 AM CDT 09/01/2024 3:37 AM CDT us Smith Sawyer MD LAB BLOOD ORDERABLES Lila dawson Result [facility] [place] [address] * (ABNORMAL) Differential, auto (09/01/2024 3:21 AM CDT) Pathologist [facility] Neutrophil abs 3.01 1.50 - 6.50 K/cumm Imm gran abs 0.04 0.00 - 0.10 K/cumm [facility] Lymphocyte abs 0.35(L) 0.80 - 3.30 K/cumm [facility] Monocyte abs 0.67 0.20 - 0.80 K/cumm [facility] Eosinophil abs 0.06 0.00 - 0.50 K/cumm [facility] Basophil abs 0.01 0.00 - 0.10 K/cumm [facility] Neutrophil pct 72.7 % [facility] Comment: Interpretive Data Percent cell count reference ranges are not reported, since discordance with absolute values may lead to misinterpretation of CBC data. Current Interpretive Data was last revised on 2017. Imm gran pct 1.0 % [facility] Comment: Interpretive Data Percent cell count reference ranges are not reported, since discordance with absolute values may lead to misinterpretation of CBC data. Current Interpretive Data was last revised on 2017. Lymphocyte pct 8.5 % [facility] Comment: Interpretive Data Percent cell count reference ranges are not reported, since discordance with absolute values may lead to misinterpretation of CBC data. Current Interpretive Data was last revised on 2017. Monocyte pct 16.2 % [facility] Comment: Interpretive Data Percent cell count reference ranges are not reported, since discordance with absolute values may lead to misinterpretation of CBC data. Current Interpretive Data was last revised on 2017. Eosinophil pct 1.4 % [facility] Comment: Interpretive Data Percent cell count reference ranges are not reported, since discordance with absolute values may lead to misinterpretation of CBC data. Current Interpretive Data was last revised on 2017. Basophil pct 0.2 % [facility] Comment: Interpretive Data Percent cell count reference ranges are not reported, since discordance with absolute values may lead to misinterpretation of CBC data. Current Interpretive Data was last revised on 2017. Blood 09/01/2024 3:21 AM CDT 09/01/2024 3:38 AM CDT Smith Sawyer MD LAB BLOOD ORDERABLES Lila l Result Performing Organization Address [facility] Co de Phone Number [facility] [place] [address] * (ABNORMAL) CBC with auto differential (09/01/2024 3:21 AM CDT) WBC 4.14 3.80 - 9.90 K/cumm Hgb 9.0(L) 13.0 - 17.5 g/dL [facility] Hct 26.2(L) 38.9 - 50.3 % [facility] Plt 86(L) 150 - 400 K/cumm [facility] MPV 11.2 9.1 - 12.3 fL [facility] RBC 2.45(L) 4.30 - 5.80 M/cumm [facility] MCV 106.9(H) 81.3 - 96.4 fL [facility] MCH 36.7(H) 27.1 - 33.3 pg [facility] MCHC 34.4 32.3 - 35.7 g/dL [facility] RDW CV 21.0(H) 11.1 - 14.9 % [facility] RDW SD 80.0(H) 35.7 - 48.1 fL [facility] NRBC abs 0.00 0.00 - 0.01 K/cumm [facility] Blood 09/01/2024 3:21 AM CDT 09/01/2024 3:38 AM CDT Smith Sawyer MD LAB BLOOD ORDERABLES Lila l Result Performing Organization Address [facility]/State/ZIP Co de Phone Number [place] [address] * (ABNORMAL) Protime-INR (09/01/2024 3:21 AM CDT) Pathologist [facility] PT 20.0(H) 9.7 - 13.0 sec INR 1.83(H) 0.90 - 1.20 [facility] Comment: Interpretive data Oral anticoagulant therapeutic ranges: Venous thromboembolism prophylaxis or treatment: 2.0-3.0 CARDIOLOGY Standard range: 2.0-3.0 High-intensity range: 2.5-3.5 Refer to indication-specific guidelines for appropriate target ranges for prosthetic heart valve replacement. Current interpretive data was last revised on 2019. Blood 09/01/2024 3:21 AM CDT 09/01/2024 3:36 AM CDT Zuleima Levine MD LAB BLOOD ORDERABLES Lila l Result Performing Organization Address City/[facility]/ZIP Co de Phone Number [facility] Department [place] [employer] [place] [address] * Phosphorus (09/01/2024 3:21 AM CDT) [facility] Phosphorus, pl 2.8 2.3 - 4.5 mg/dL Blood 09/01/2024 3:21 AM CDT 09/01/2024 3:37 AM CDT Smith Sawyer MD LAB BLOOD [place] [address] * Magnesium (09/01/2024 3:21 AM CDT) [facility] Magnesium 1.5 1.4 - 2.5 mg/dL Blood 09/01/2024 3:21 AM CDT 09/01/2024 3:37 AM CDT us Zuleima Levine MD LAB BLOOD ORDERABLES Lila dawson Result [facility] [place] [address] * (ABNORMAL) Comprehensive metabolic panel (09/01/2024 3:21 AM CDT) Sodium 143 135 - 145 mmol/L Potassium, pl 3.2(L) 3.3 - 4.9 mmol/L [facility] Chloride 108 97 - 110 mmol/L [facility] CO2 28 22 - 32 mmol/L [facility] Anion gap 7 2 - 15 mmol/L [facility] BUN 15 6 - 25 mg/dL [facility] Creatinine 0.95 0.80 - 1.30 mg/dL [facility] Glucose 123 70 - 199 mg/dL [facility] Comment: Interpretive Data Fasting glucose >/= 126 mg/dl is diagnostic for diabetes. Fasting is defined as no caloric intake for at least 8 hours. Fasting glucose between 100 mg/dl to 125 mg/dl is diagnostic of prediabetes. In a patient with classic symptoms of hyperglycemia or hyperglycemic crisis, a random glucose >/= 200 mg/dl is diagnostic for diabetes. In the absence of unequivocal hyperglycemia, results should be confirmed by repeat testing. The classification and Diagnosis of Diabetes Diabetes Care 202; 46: S19-S40. Current interpretive data was last revised 2022. Calcium 7.8(L) 8.5 - 10.3 mg/dL [facility] Bilirubin, total 0.6 0.1 - 1.2 mg/dL [facility] Protein, pl 4.7(L) 6.5 - 8.5 g/dL [facility] Albumin 2.3(L) 3.5 - 5.0 g/dL [facility] Alk phos 84 40 - 130 Units/L [facility] ALT 21 7 - 55 Units/L [facility] AST 44 10 - 50 Units/L [facility] Blood 09/01/2024 3:21 AM CDT 09/01/2024 3:37 AM CDT us Smith Sawyer MD LAB BLOOD ORDERABLES Lila dawson Result [facility] [place] [address] * XR Chest 1 View (08/31/2024 10:37 PM CDT) Anatomical Region Laterality Modality Body, Chest N/A Computed Radiogr aphy 09/01/2024 10:3 2 AM CDT Impressions 09/01/2024 10:32 AM CDT The current study is compared with the prior radiograph dated 08/21/2024. An atrio-ventricular pacer device is in place with leads overlying expected position.. Right-sided port catheter is tip overlying the superior vena cava right atrial junction. The heart and mediastinal contours are normal. There is no pneumothorax.. There is a tiny left effusion no right effusion. Trace interstitial edema seen. There are small lung volumes, as a consequence there is both vascular crowding and atelectasis. Electronically signed by: Brittny Hernandez M.D. Narrative 09/01/2024 10:32 AM CDT EXAMINATION: 1 view chest radiograph Procedure Note Brittny Hernandez MD - 09/01/2024 EXAMINATION: 1 view chest radiograph IMPRESSION: The current study is compared with the prior radiograph dated 08/21/2024. An atrio-ventricular pacer device is in place with leads overlying expected position.. Right-sided port catheter is tip overlying the superior vena cava right atrial junction. The heart and mediastinal contours are normal. There is no pneumothorax.. There is a tiny left effusion no right effusion. Trace interstitial edema seen. There are small lung volumes, as a consequence there is both vascular crowding and atelectasis. Electronically signed by: Brittny Hernandez M.D. us Zuleima Levine MD IMG XR PROCEDURES Final R esult * Surgical pathology (08/31/2024 11:47 AM CDT) Tissue (Colon, Biopsy) 08/31/2024 11:47 AM CDT Narrative [facility] - 09/02/2024 10:06 AM CDT EPIC results best viewed via link to PDF [facility] Laboratory of Surgical [place] [address] Note to Patients: This report may contain a detailed description of human tissue sent by a health care provider to the laboratory for pathologic evaluation. The content of this report is essential for diagnosis and may provide important critical findings. This information may be unfamiliar to patients to review without a medical professional present. It is advised that the patient review this report in the presence of a health care provider who can answer questions and explain the details. SURGICAL PATHOLOGY REPORT FINAL Patient Name: SULMA BAZAN Gender: Marlen : 1950 (Age: 74) Address: [address] [place] [address] Hospital #: [id number] Taken:08/31/2024 Received:08/31/2024 Reported: 09/02/2024 Patient Type: [facility] Inpatient Service: Oncology Location: [place] [address] Physician(s): MD Gilberto Melgar M.D. Shivani Shah Mattay, MD Diagnosis: Colon, rectosigmoid, biopsy - Colonic mucosa with prominent crypt apoptosis, focal acute cryptitis/crypt abscesses, rare crypt dropout, and reactive epithelial changes (see comment) /09/01/2024 11:24 By this signature, I attest that the above diagnosis is based upon my personal examination of the slides(and/or other material indicated in the diagnosis). Kristin Scott MD Report Electronically Reviewed and Signed Out By Kristin Scott MD 09/02/2024 10:06:06 Microscopic Description and Comment: These findings raise concern for a drug/medication related injury process. The findings of apoptosis and cryptitis have been described in the literature as findings seen in Capecitabine-induced colitis. Other considerations including infectious etiologies should be excluded clinically. CMV and adenovirus immunostains are negative for viral inclusions. Correlation with pertinent microbiology studies is recommended. Ref: Toya K, Jasper BK, Kyler BK, Bryson M, Greg KM, Yamil DA. Capecitabine-induced Gastrointestinal Injury Shows a Aspbx-Nwpyqk-Yahw Disease (GVHD)-like Pattern. Am J Surg Pathol. 2022Feb 03;47(10):4105-6703. doi: 10.1097/PAS.[id number]. Epub 2022Nov 29. PMID: [id number]. Shahla Lam D.O. History: The patient is a 74-year-old man presenting with diarrhea. Operative procedure: Sigmoid biopsy. Specimen(s) Received: A: Cold bx, random recto-sigmoid biopsies Gross Description: Received in a single formalin filled container labeled with the patient's name and cold biopsy, random rectosigmoid biopsy are multiple irregular fragments of soft white to pale pink tissue (1.3 x 0.7 x 0.1 cm in aggregate). Filtered. Labeled A1. Jar 0. /08/31/2024 18:01 PA(s): Sofia Conklin, MS, PA (ASCP)CM By this signature, I attest that the above diagnosis is based upon my personal examination of the slides(and/or other material). Addenda/Procedures The performance characteristics of some immunohistochemical stains, fluorescence in-situ hybridization tests and immunophenotyping by flow cytometry cited in this report (if any) were determined by the Surgical Pathology and Flow Cytometry Departments at [facility] as part of an ongoing housing quality standard inspector program and in compliance with federally mandated regulations drawn from the Clinical Laboratory Improvement Act of 1988 (CLIA '88). Some of these tests rely on the use of analyte specific reagents and are subject to specific labeling requirements by the US Food and Drug Administration. Such diagnostic tests may only be performed in a facility that is certified by the Department of Health and Human Services as a high complexity laboratory under CLIA '88. The FDA has determined that such clearance or approval is not necessary. This test is used for clinical purposes. It should not be regarded as investigational or for research. Nevertheless, federal rules concerning the medical use of analyte specific reagents require that the following disclaimer be attached to the report: This test was developed and its performance characteristics determined by the Surgical Pathology and Flow Cytometry Departments of [facility]. It has not been cleared or approved by the U. S. Food and Drug Administration. IMAGES AND SCANNED DOCUMENTS, IF INCLUDED, ONLY VIEWABLE IN PDF VERSION OF REPORT us Abram Smith MD LAB PATHOLOGY ORDERABLES Final Result PATHOLOGY [facility] 3rd Floor [place], [place] [phone] * Flexible Sigmoidoscopy (08/31/2024 11:26 AM CDT) Anatomical Region Laterality Modality Other Narrative Procedure Note Abram Smith MD - 08/31/2024 11:26 AM CDT [facility] Patient Name: Sulma Bazan Procedure Date: 08/31/2024 11:26 AM Date of : 1950 Admit Type: Inpatient Age: 74 Gender: Male Attending MD: Abram Smith M.D. Room: [facility] ENDOSCOPY Note Status: Finalized Procedure: Flexible Sigmoidoscopy Indications: Diarrhea Referring MD: Zuleima [place] M.D. Providers: Abram Smith M.D., Mary Grace Jiang M.D. Medicines: Monitored Anesthesia Care Complications: No immediate complications. Estimated Blood Loss: Estimated blood loss: none. Procedure: Pre-Anesthesia Assessment: - Prior to the procedure, a History and Physicalwas performed, and patient medications, allergies and sensitivities were reviewed. The patient'stolerance of previous anesthesia was reviewed. - The risks and benefits of the procedure and the sedation options and risks were discussed with the patient. All questions were answered and informed consent was obtained. The benefits, risks, and alternatives to theprocedure and sedation were discussed and informed consentwas obtained. The [id number] Endoscope was introduced through the anus and advanced to the the descending colon. The flexible sigmoidoscopy was accomplished without difficulty. The patienttolerated the procedure well. Findings: The perianal and digital rectal examinations were normal. The rectum and sigmoid colon appeared normal. Biopsies were takenwith a cold forceps for histology. Impression: - The rectum and sigmoid colon are normal.Biopsied. Recommendation: - [facility]. - Await pathology results. Attending Participation: I was present and participated during the entire procedure, including non-martinez portions. Electronically signed by Abram Smith MD Abram Smith M.D. 08/31/2024 11:58:26 AM Number of Addenda: 0 Note Initiated On: 08/31/2024 11:26 AM us Abram Smith MD ENDOSCOPY PROCEDURES Final Res ult * Potassium, whole blood (08/31/2024 6:44 AM CDT) Potassium, bld 4.0 3.3 - 4.9 mmol/L Blood 08/31/2024 6:44 AM CDT 08/31/2024 6:51 AM CDT Zuleima [place] MD LAB BLOOD ORDERABLES Lila l Result Performing Organization Address City/[facility] Co de Phone Number [facility] [place] [address] * eGFR (08/31/2024 2:34 AM CDT) Pathologist [facility] eGFR 87 >=60 mL/min/1. 73 m2 Comment: Interpretive Data Reference Interval Normal >/= 90 mL/min/1.73m2 Mildly decreased* 60 - 89 mL/min/1.73m2 Mildly to moderately decreased 45 - 59 mL/min/1.73m2 Moderately to severely decreased 30 - 44 mL/min/1.73m2 Severely decreased 15 - 29 mL/min/1.73m2 Kidney Failure < 15 mL/min/1.73m2 *Relative to young adult level Estimated glomerular filtration rate is determined by the 2020 CKD-EPI equation recommended by the National Kidney Foundation (A Unifying Approach to GFR Estimation: Recommendations of the NKF-ASK Task Force on Reassessing the Inclusion of Race in Diagnosing Kidney Disease, JASN 2020). The CKD-EPI equation should not be used for patients with unstable renal function and has not been validated in children and those over 70. Current interpretive data was last reviewed 2021. Blood 08/31/2024 2:34 AM CDT 08/31/2024 3:12 AM CDT Smith Sawyer MD LAB BLOOD ORDERABLES Lila l Result Performing Organization Address City/[facility]/ZIP Co de Phone Number [facility] [place] [address] * (ABNORMAL) Differential, auto (08/31/2024 2:34 AM CDT) Pathologist [facility] Neutrophil abs 3.45 1.50 - 6.50 K/cumm Imm gran abs 0.05 0.00 - 0.10 K/cumm [facility] Lymphocyte abs 0.39(L) 0.80 - 3.30 K/cumm [facility] Monocyte abs 0.72 0.20 - 0.80 K/cumm [facility] Eosinophil abs 0.07 0.00 - 0.50 K/cumm [facility] Basophil abs 0.01 0.00 - 0.10 K/cumm [facility] Neutrophil pct 73.5 % [facility] Comment: Interpretive Data Percent cell count reference ranges are not reported, since discordance with absolute values may lead to misinterpretation of CBC data. Current Interpretive Data was last revised on 2017. Imm gran pct 1.1 % [facility] Comment: Interpretive Data Percent cell count reference ranges are not reported, since discordance with absolute values may lead to misinterpretation of CBC data. Current Interpretive Data was last revised on 2017. Lymphocyte pct 8.3 % [facility] Comment: Interpretive Data Percent cell count reference ranges are not reported, since discordance with absolute values may lead to misinterpretation of CBC data. Current Interpretive Data was last revised on 2017. Monocyte pct 15.4 % [facility] Comment: Interpretive Data Percent cell count reference ranges are not reported, since discordance with absolute values may lead to misinterpretation of CBC data. Current Interpretive Data was last revised on 2017. Eosinophil pct 1.5 % [facility] Comment: Interpretive Data Percent cell count reference ranges are not reported, since discordance with absolute values may lead to misinterpretation of CBC data. Current Interpretive Data was last revised on 2017. Basophil pct 0.2 % [facility] Comment: Interpretive Data Percent cell count reference ranges are not reported, since discordance with absolute values may lead to misinterpretation of CBC data. Current Interpretive Data was last revised on 2017. Blood 08/31/2024 2:34 AM CDT 08/31/2024 3:12 AM CDT us Smith Sawyer MD LAB BLOOD ORDERABLES Lila dawson Result [facility] [place] [address] * (ABNORMAL) CBC with auto differential (08/31/2024 2:34 AM CDT) Pathologist [facility] WBC 4.69 3.80 - 9.90 K/cumm Hgb 8.9(L) 13.0 - 17.5 g/dL [facility] Hct 25.5(L) 38.9 - 50.3 % [facility] Plt 90(L) 150 - 400 K/cumm [facility] MPV 10.6 9.1 - 12.3 fL [facility] RBC 2.38(L) 4.30 - 5.80 M/cumm [facility] MCV 107.1(H) 81.3 - 96.4 fL [facility] MCH 37.4(H) 27.1 - 33.3 pg [facility] MCHC 34.9 32.3 - 35.7 g/dL [facility] RDW CV 21.1(H) 11.1 - 14.9 % [facility] RDW SD 79.6(H) 35.7 - 48.1 fL [facility] NRBC abs 0.00 0.00 - 0.01 K/cumm [facility] Blood 08/31/2024 2:34 AM CDT 08/31/2024 3:12 AM CDT Smith Sawyer MD LAB BLOOD ORDERABLES Lila l Result [facility] [place] [address] * aPTT (08/31/2024 2:34 AM CDT) Pathologist [facility] aPTT 30 28 - 38 sec Comment: Interpretive Data Heparin therapeutic range: 66.0 - 100.0 seconds. Range based on correlation with therapeutic heparin activity range of 0.3 - 0.7 Units/mL. Current interpretive data was last revised on 2023. Blood 08/31/2024 2:34 AM CDT 08/31/2024 3:04 AM CDT Smith Sawyer MD LAB BLOOD ORDERABLES Lila l Result Performing Organization Address [facility] [place] [address] * (ABNORMAL) Protime-INR (08/31/2024 2:34 AM CDT) PT 18.8(H) 9.7 - 13.0 sec INR 1.72(H) 0.90 - 1.20 [facility] Comment: Interpretive data Oral anticoagulant therapeutic ranges: Venous thromboembolism prophylaxis or treatment: 2.0-3.0 CARDIOLOGY Standard range: 2.0-3.0 High-intensity range: 2.5-3.5 Refer to indication-specific guidelines for appropriate target ranges for prosthetic heart valve replacement. Current interpretive data was last revised on 2019. Blood 08/31/2024 2:34 AM CDT 08/31/2024 3:04 AM CDT Zuleima [place] MD LAB BLOOD ORDERABLES Lila l Result Performing Organization Address [facility] [facility] [place] [address] * Type and screen (08/31/2024 2:34 AM CDT) ABO Rh A Positive Minna, indirect Negative [facility] Blood 08/31/2024 2:34 AM CDT 08/31/2024 3:06 AM CDT Narrative [facility] - 08/31/2024 7:31 AM CDT Has the patient had Daratumumab or Isatuximab in the past 6 months?->Unknown Smith Sawyer MD LAB BLOOD BANK TEST ORDER DEMETRIO Final Result Performing Organization Address [facility] Co de Phone Number [facility] [place] [place] [address] * Uric acid (08/31/2024 2:34 AM CDT) [facility] Uric acid 6.6 3.0 - 8.0 mg/dL Blood 08/31/2024 2:34 AM CDT 08/31/2024 3:12 AM CDT Narrative [facility] - 08/31/2024 3:42 AM CDT Saturday and only. Morning draw. . Smith Sawyer MD LAB BLOOD ORDERABLES Lila l Result Performing Organization Address City/State/[facility] Co de Phone Number [facility] [place] [address] * (ABNORMAL) Phosphorus (08/31/2024 2:34 AM CDT) [facility] Phosphorus, pl 1.9(L) 2.3 - 4.5 mg/dL Blood 08/31/2024 2:34 AM CDT 08/31/2024 3:12 AM CDT Smith Sawyer MD LAB BLOOD ORDERABLES Lila l Result Performing Organization Address [facility] Co de Phone Number [facility] [place] [employer] [place] [address] * (ABNORMAL) Lactate dehydrogenase (LD) (08/31/2024 2:34 AM CDT) [facility] Lactate dehydrogenase (LDH) 301(H) 100 - 250 Units/L Blood 08/31/2024 2:34 AM CDT 08/31/2024 3:12 AM CDT Narrative [facility] - 08/31/2024 3:42 AM CDT Saturday and only. Morning draw. Smith Sawyer MD LAB BLOOD ORDERABLES Lila l Result Performing Organization Address City/[facility] Co de Phone Number [facility] [place] [employer] [place] [address] * (ABNORMAL) Comprehensive metabolic panel (08/31/2024 2:34 AM CDT) Sodium 139 135 - 145 mmol/L Potassium, pl 3.2(L) 3.3 - 4.9 mmol/L [facility] Chloride 107 97 - 110 mmol/L [facility] CO2 25 22 - 32 mmol/L [facility] Anion gap 7 2 - 15 mmol/L [facility] BUN 20 6 - 25 mg/dL [facility] Creatinine 0.92 0.80 - 1.30 mg/dL [facility] Glucose 113 70 - 199 mg/dL [facility] Comment: Interpretive Data Fasting glucose >/= 126 mg/dl is diagnostic for diabetes. Fasting is defined as no caloric intake for at least 8 hours. Fasting glucose between 100 mg/dl to 125 mg/dl is diagnostic of prediabetes. In a patient with classic symptoms of hyperglycemia or hyperglycemic crisis, a random glucose >/= 200 mg/dl is diagnostic for diabetes. In the absence of unequivocal hyperglycemia, results should be confirmed by repeat testing. The classification and Diagnosis of Diabetes Diabetes Care 2021; 46: S19-S40. Current interpretive data was last revised 2022. Calcium 8.0(L) 8.5 - 10.3 mg/dL [facility] Bilirubin, total 0.5 0.1 - 1.2 mg/dL [facility] Protein, pl 4.8(L) 6.5 - 8.5 g/dL [facility] Albumin 2.6(L) 3.5 - 5.0 g/dL [facility] Alk phos 82 40 - 130 Units/L [facility] ALT 23 7 - 55 Units/L [facility] AST 48 10 - 50 Units/L [facility] Blood 08/31/2024 2:34 AM CDT 08/31/2024 3:12 AM CDT us Smith Sawyer MD LAB BLOOD ORDERABLES Lila dawson Result [facility] [place] [address] * (ABNORMAL) Protime-INR (08/30/2024 4:30 AM CDT) PT 20.1(H) 9.7 - 13.0 sec INR 1.84(H) 0.90 - 1.20 [facility] Comment: Interpretive data Oral anticoagulant therapeutic ranges: Venous thromboembolism prophylaxis or treatment: 2.0-3.0 CARDIOLOGY Standard range: 2.0-3.0 High-intensity range: 2.5-3.5 Refer to indication-specific guidelines for appropriate target ranges for prosthetic heart valve replacement. Current interpretive data was last revised on 2019. Blood 08/30/2024 4:30 AM CDT 08/30/2024 2:53 AM CDT us Zuleima Levine MD LAB BLOOD ORDERABLES Lila dawson Result [facility] [place] [address] * eGFR (08/30/2024 2:34 AM CDT) eGFR 78 >=60 mL/min/1. 73 m2 Comment: Interpretive Data Reference Interval Normal >/= 90 mL/min/1.73m2 Mildly decreased* 60 - 89 mL/min/1.73m2 Mildly to moderately decreased 45 - 59 mL/min/1.73m2 Moderately to severely decreased 30 - 44 mL/min/1.73m2 Severely decreased 15 - 29 mL/min/1.73m2 Kidney Failure < 15 mL/min/1.73m2 *Relative to young adult level Estimated glomerular filtration rate is determined by the 2020 CKD-EPI equation recommended by the National Kidney Foundation (A Unifying Approach to GFR Estimation: Recommendations of the NKF-ASK Task Force on Reassessing the Inclusion of Race in Diagnosing Kidney Disease, JASN 2020). The CKD-EPI equation should not be used for patients with unstable renal function and has not been validated in children and those over 70. Current interpretive data was last reviewed 2021. Blood 08/30/2024 2:34 AM CDT 08/30/2024 2:56 AM CDT us Smith Sawyer MD LAB BLOOD ORDERABLES Lila dawson Result [facility] [place] [address] * (ABNORMAL) Differential, auto (08/30/2024 2:34 AM CDT) Neutrophil abs 3.58 1.50 - 6.50 K/cumm Imm gran abs 0.06 0.00 - 0.10 K/cumm [facility] Lymphocyte abs 0.20(L) 0.80 - 3.30 K/cumm [facility] Monocyte abs 0.72 0.20 - 0.80 K/cumm [facility] Eosinophil abs 0.08 0.00 - 0.50 K/cumm [facility] Basophil abs 0.01 0.00 - 0.10 K/cumm [facility] Neutrophil pct 77.0 % [facility] Comment: Interpretive Data Percent cell count reference ranges are not reported, since discordance with absolute values may lead to misinterpretation of CBC data. Current Interpretive Data was last revised on 2017. Imm gran pct 1.3 % [facility] Comment: Interpretive Data Percent cell count reference ranges are not reported, since discordance with absolute values may lead to misinterpretation of CBC data. Current Interpretive Data was last revised on 2017. Lymphocyte pct 4.3 % [facility] Comment: Interpretive Data Percent cell count reference ranges are not reported, since discordance with absolute values may lead to misinterpretation of CBC data. Current Interpretive Data was last revised on 2017. Monocyte pct 15.5 % [facility] Comment: Interpretive Data Percent cell count reference ranges are not reported, since discordance with absolute values may lead to misinterpretation of CBC data. Current Interpretive Data was last revised on 2017. Eosinophil pct 1.7 % [facility] Comment: Interpretive Data Percent cell count reference ranges are not reported, since discordance with absolute values may lead to misinterpretation of CBC data. Current Interpretive Data was last revised on 2017. Basophil pct 0.2 % [facility] Comment: Interpretive Data Percent cell count reference ranges are not reported, since discordance with absolute values may lead to misinterpretation of CBC data. Current Interpretive Data was last revised on 2017. Blood 08/30/2024 2:34 AM CDT 08/30/2024 2:56 AM CDT Smith Sawyer MD LAB BLOOD ORDERABLES Lila l Result Performing Organization Address [facility] Co de Phone Number [facility] [place] [address] * (ABNORMAL) CBC with auto differential (08/30/2024 2:34 AM CDT) WBC 4.65 3.80 - 9.90 K/cumm Hgb 8.5(L) 13.0 - 17.5 g/dL [facility] Hct 24.7(L) 38.9 - 50.3 % [facility] Plt 86(L) 150 - 400 K/cumm [facility] MPV 10.4 9.1 - 12.3 fL [facility] RBC 2.28(L) 4.30 - 5.80 M/cumm [facility] MCV 108.3(H) 81.3 - 96.4 fL [facility] MCH 37.3(H) 27.1 - 33.3 pg [facility] MCHC 34.4 32.3 - 35.7 g/dL [facility] RDW CV 21.0(H) 11.1 - 14.9 % [facility] RDW SD 81.8(H) 35.7 - 48.1 fL [facility] NRBC abs 0.02(H) 0.00 - 0.01 K/cumm [facility] Blood 08/30/2024 2:34 AM CDT 08/30/2024 2:56 AM CDT Smtih Sawyer MD LAB BLOOD ORDERABLES Lila l Result Performing Organization Address [facility] Co de Phone Number [facility] [place] [address] * Phosphorus (08/30/2024 2:34 AM CDT) [facility] Phosphorus, pl 2.7 2.3 - 4.5 mg/dL Blood 08/30/2024 2:34 AM CDT 08/30/2024 2:56 AM CDT Smith Sawyer MD LAB BLOOD ORDERABLES Lila l Result Performing Organization Address City/State/[facility] Co de Phone Number [facility] [place] [address] * Magnesium (08/30/2024 2:34 AM CDT) [facility] Magnesium 1.8 1.4 - 2.5 mg/dL Blood 08/30/2024 2:34 AM CDT 08/30/2024 2:56 AM CDT Zuleima [place] MD LAB BLOOD ORDERABLES Lila l Result Performing Organization Address City/[facility] Co de Phone Number [facility] [place] [address] * (ABNORMAL) Comprehensive metabolic panel (08/30/2024 2:34 AM CDT) [facility] Sodium 141 135 - 145 mmol/L Potassium, pl 3.4 3.3 - 4.9 mmol/L [facility] Chloride 109 97 - 110 mmol/L [facility] CO2 23 22 - 32 mmol/L [facility] Anion gap 9 2 - 15 mmol/L [facility] BUN 24 6 - 25 mg/dL [facility] Creatinine 1.00 0.80 - 1.30 mg/dL [facility] Glucose 105 70 - 199 mg/dL [facility] Comment: Interpretive Data Fasting glucose >/= 126 mg/dl is diagnostic for diabetes. Fasting is defined as no caloric intake for at least 8 hours. Fasting glucose between 100 mg/dl to 125 mg/dl is diagnostic of prediabetes. In a patient with classic symptoms of hyperglycemia or hyperglycemic crisis, a random glucose >/= 200 mg/dl is diagnostic for diabetes. In the absence of unequivocal hyperglycemia, results should be confirmed by repeat testing. The classification and Diagnosis of Diabetes Diabetes Care 2021; 46: S19-S40. Current interpretive data was last revised 2022. Calcium 8.0(L) 8.5 - 10.3 mg/dL [facility] Bilirubin, total 0.4 0.1 - 1.2 mg/dL [facility] Protein, pl 4.8(L) 6.5 - 8.5 g/dL [facility] Albumin 3.1(L) 3.5 - 5.0 g/dL [facility] Alk phos 69 40 - 130 Units/L [facility] ALT 25 7 - 55 Units/L [facility] AST 47 10 - 50 Units/L [facility] Blood 08/30/2024 2:34 AM CDT 08/30/2024 2:56 AM CDT Smith Sawyer MD LAB BLOOD ORDERABLES Lila dawson Result [facility] [place] [address] * eGFR (08/29/2024 1:30 AM CDT) eGFR 70 >=60 mL/min/1. 73 m2 Comment: Interpretive Data Reference Interval Normal >/= 90 mL/min/1.73m2 Mildly decreased* 60 - 89 mL/min/1.73m2 Mildly to moderately decreased 45 - 59 mL/min/1.73m2 Moderately to severely decreased 30 - 44 mL/min/1.73m2 Severely decreased 15 - 29 mL/min/1.73m2 Kidney Failure < 15 mL/min/1.73m2 *Relative to young adult level Estimated glomerular filtration rate is determined by the 2020 CKD-EPI equation recommended by the National Kidney Foundation (A Unifying Approach to GFR Estimation: Recommendations of the NKF-ASK Task Force on Reassessing the Inclusion of Race in Diagnosing Kidney Disease, JASN 2020). The CKD-EPI equation should not be used for patients with unstable renal function and has not been validated in children and those over 70. Current interpretive data was last reviewed 2021. Blood 08/29/2024 1:30 AM CDT 08/29/2024 1:42 AM CDT Smith Sawyer MD LAB BLOOD ORDERABLES Lila dawson Result [facility] [place] [address] * (ABNORMAL) Differential, auto (08/29/2024 1:30 AM CDT) Neutrophil abs 3.07 1.50 - 6.50 K/cumm Imm gran abs 0.07 0.00 - 0.10 K/cumm [facility] Lymphocyte abs 0.29(L) 0.80 - 3.30 K/cumm [facility] Monocyte abs 0.91(H) 0.20 - 0.80 K/cumm [facility] Eosinophil abs 0.05 0.00 - 0.50 K/cumm [facility] Basophil abs 0.02 0.00 - 0.10 K/cumm [facility] Neutrophil pct 69.6 % [facility] Comment: Interpretive Data Percent cell count reference ranges are not reported, since discordance with absolute values may lead to misinterpretation of CBC data. Current Interpretive Data was last revised on 2017. Imm gran pct 1.6 % [facility] Comment: Interpretive Data Percent cell count reference ranges are not reported, since discordance with absolute values may lead to misinterpretation of CBC data. Current Interpretive Data was last revised on 2017. Lymphocyte pct 6.6 % [facility] Comment: Interpretive Data Percent cell count reference ranges are not reported, since discordance with absolute values may lead to misinterpretation of CBC data. Current Interpretive Data was last revised on 2017. Monocyte pct 20.6 % [facility] Comment: Interpretive Data Percent cell count reference ranges are not reported, since discordance with absolute values may lead to misinterpretation of CBC data. Current Interpretive Data was last revised on 2017. Eosinophil pct 1.1 % [facility] Comment: Interpretive Data Percent cell count reference ranges are not reported, since discordance with absolute values may lead to misinterpretation of CBC data. Current Interpretive Data was last revised on 2017. Basophil pct 0.5 % [facility] Comment: Interpretive Data Percent cell count reference ranges are not reported, since discordance with absolute values may lead to misinterpretation of CBC data. Current Interpretive Data was last revised on 2017. Blood 08/29/2024 1:30 AM CDT 08/29/2024 1:42 AM CDT Smith Sawyer MD LAB BLOOD ORDERABLES Lila dawson Result [facility] [place] [address] * (ABNORMAL) CBC with auto differential (08/29/2024 1:30 AM CDT) WBC 4.41 3.80 - 9.90 K/cumm Hgb 8.9(L) 13.0 - 17.5 g/dL [facility] Hct 26.7(L) 38.9 - 50.3 % [facility] Plt 112(L) 150 - 400 K/cumm [facility] MPV 10.4 9.1 - 12.3 fL [facility] RBC 2.45(L) 4.30 - 5.80 M/cumm [facility] MCV 109.0(H) 81.3 - 96.4 fL [facility] MCH 36.3(H) 27.1 - 33.3 pg [facility] MCHC 33.3 32.3 - 35.7 g/dL [facility] RDW CV 21.4(H) 11.1 - 14.9 % [facility] RDW SD 83.0(H) 35.7 - 48.1 fL [facility] NRBC abs 0.00 0.00 - 0.01 K/cumm [facility] Blood 08/29/2024 1:30 AM CDT 08/29/2024 1:42 AM CDT Smith Sawyer MD LAB BLOOD ORDERABLES Lila l Result Performing Organization Address [facility] Co de Phone Number [facility] [place] [employer] [place] [address] * (ABNORMAL) Protime-INR (08/29/2024 1:30 AM CDT) PT 28.4(H) 9.7 - 13.0 sec INR 2.58(H) 0.90 - 1.20 [facility] Comment: Interpretive data Oral anticoagulant therapeutic ranges: Venous thromboembolism prophylaxis or treatment: 2.0-3.0 CARDIOLOGY Standard range: 2.0-3.0 High-intensity range: 2.5-3.5 Refer to indication-specific guidelines for appropriate target ranges for prosthetic heart valve replacement. Current interpretive data was last revised on 2019. Blood 08/29/2024 1:30 AM CDT 08/29/2024 1:51 AM CDT Zuleima [place] MD LAB BLOOD ORDERABLES Lila l Result Performing Organization Address [facility] de Phone Number [facility] [place] [employer] [place] [address] * Phosphorus (08/29/2024 1:30 AM CDT) Phosphorus, pl 2.4 2.3 - 4.5 mg/dL Blood 08/29/2024 1:30 AM CDT 08/29/2024 1:42 AM CDT Smith Sawyer MD LAB BLOOD ORDERABLES Lila l Result Performing Organization Address City/[facility] Co de Phone Number [facility] [place] [employer] [place] [address] * (ABNORMAL) Comprehensive metabolic panel (08/29/2024 1:30 AM CDT) Sodium 142 135 - 145 mmol/L Potassium, pl 3.8 3.3 - 4.9 mmol/L [facility] Chloride 110 97 - 110 mmol/L [facility] CO2 19(L) 22 - 32 mmol/L [facility] Anion gap 13 2 - 15 mmol/L [facility] BUN 28(H) 6 - 25 mg/dL [facility] Creatinine 1.10 0.80 - 1.30 mg/dL [facility] Glucose 108 70 - 199 mg/dL [facility] Comment: Interpretive Data Fasting glucose >/= 126 mg/dl is diagnostic for diabetes. Fasting is defined as no caloric intake for at least 8 hours. Fasting glucose between 100 mg/dl to 125 mg/dl is diagnostic of prediabetes. In a patient with classic symptoms of hyperglycemia or hyperglycemic crisis, a random glucose >/= 200 mg/dl is diagnostic for diabetes. In the absence of unequivocal hyperglycemia, results should be confirmed by repeat testing. The classification and Diagnosis of Diabetes Diabetes Care 202; 46: S19-S40. Current interpretive data was last revised 2022. Calcium 8.1(L) 8.5 - 10.3 mg/dL [facility] Bilirubin, total 0.5 0.1 - 1.2 mg/dL [facility] Protein, pl 5.3(L) 6.5 - 8.5 g/dL [facility] Albumin 3.3(L) 3.5 - 5.0 g/dL [facility] Alk phos 72 40 - 130 Units/L [facility] ALT 27 7 - 55 Units/L [facility] AST 53(H) 10 - 50 Units/L [facility] Blood 08/29/2024 1:30 AM CDT 08/29/2024 1:42 AM CDT us Smith Sawyer MD LAB BLOOD ORDERABLES Lila l Result [facility] [place] [address] * Transfuse plasma Standard plasma (08/28/2024 2:39 PM CDT) Blood Zuleima Levine MD BLOOD TRANSFUSION ORDERAB LES Edited Result - Final Performing Organization Address [facility] [place] [address] * (ABNORMAL) Protime-INR (08/28/2024 2:30 PM CDT) PT 24.1(H) 9.7 - 13.0 sec INR 2.20(H) 0.90 - 1.20 [facility] Comment: Interpretive data Oral anticoagulant therapeutic ranges: Venous thromboembolism prophylaxis or treatment: 2.0-3.0 CARDIOLOGY Standard range: 2.0-3.0 High-intensity range: 2.5-3.5 Refer to indication-specific guidelines for appropriate target ranges for prosthetic heart valve replacement. Current interpretive data was last revised on 2019. Blood 08/28/2024 2:30 PM CDT 08/28/2024 2:58 PM CDT Narrative [facility] - 08/28/2024 3:26 PM CDT 1 hour after transfusion of Plasma completed. Result [facility] Zuleima [place]ine MD LAB BLOOD ORDERABLES Lila l Result Performing Organization Address [facility] Co de Phone Number [facility] [place] [place] [address] * Transfuse plasma Standard plasma (08/28/2024 12:29 PM CDT) Blood Zuleima Levine MD BLOOD TRANSFUSION ORDERAB LES Final Result Performing Organization Address [facility] Co de Phone Number [facility] [place] [employer] [place] [address] * Prepare plasma: 2 Units Standard plasma (08/28/2024 10:04 AM CDT) Product code [id number] Unit Number [id number] [facility] Product Blood Type APOS [facility] Dispense Status PRESUMED TRANSFUSED [facility] Product code [id number] [facility] Unit Number [id number] Product Blood Type APOS [facility] Dispense Status PRESUMED TRANSFUSED [facility] Blood Venous blood specimen / Unknown 08/28/2024 10:04 AM CDT 08/28/2024 10:04 AM CDT Narrative [facility] - 08/29/2024 12:40 PM CDT Is this plasma order intended for a COVID-19 patient as convalescent plasma?->Standard plasma Special Requirements Needed?->No Date required:-[id number] FFP # of Units:-2-Units Reasons:-Urgent invasive procedure, INR Zuleima Levine MD BLOOD BANK PRODUCT ORDERA BLES Final Result Performing Organization Address City/[facility]/ZIP Co de Phone Number [facility] [place] [address] * Potassium, whole blood (08/28/2024 9:19 AM CDT) Pathologist [facility] Potassium, bld 3.4 3.3 - 4.9 mmol/L Blood 08/28/2024 9:19 AM CDT 08/28/2024 9:28 AM CDT Zuleima Levine MD LAB BLOOD ORDERABLES Lila l Result [facility] [place] [address] * (ABNORMAL) Protime-INR (08/28/2024 9:19 AM CDT) Pathologist [facility] PT 27.4(H) 9.7 - 13.0 sec INR 2.49(H) 0.90 - 1.20 [facility] Comment: Interpretive data Oral anticoagulant therapeutic ranges: Venous thromboembolism prophylaxis or treatment: 2.0-3.0 CARDIOLOGY Standard range: 2.0-3.0 High-intensity range: 2.5-3.5 Refer to indication-specific guidelines for appropriate target ranges for prosthetic heart valve replacement. Current interpretive data was last revised on 2019. Blood 08/28/2024 9:19 AM CDT 08/28/2024 9:33 AM CDT Zuleima Levine MD LAB BLOOD ORDERABLES Lila l Result Performing Organization Address [facility] Co de Phone Number [facility] Department [place] [employer] [place] [address] * Transfuse plasma Standard plasma (08/28/2024 8:41 AM CDT) Blood Result [facility] Zuleima Levine MD BLOOD TRANSFUSION ORDERAB LES Final Result Performing Organization Address [facility]/ZIP Co de Phone Number [facility] [place] [address] * Prepare plasma: 1 Units Standard plasma (08/28/2024 6:40 AM CDT) Product code [id number] Unit Number [id number] [facility] Product Blood Type APOS [facility] Dispense Status PRESUMED TRANSFUSED [facility] Blood Venous blood specimen / Unknown 08/28/2024 6:40 AM CDT 08/28/2024 6:40 AM CDT Narrative [facility] - 08/28/2024 8:00 PM CDT Is this plasma order intended for a COVID-19 patient as convalescent plasma?->Standard plasma Special Requirements Needed?->No Date required:-[id number] FFP # of Units:-1-Units Reasons:-Urgent invasive procedure, INR Zuleima Levine MD BLOOD BANK PRODUCT ORDERA BLES Final Result Performing Organization Address [facility]/ZIP Co de Phone Number [facility] [place] [address] * (ABNORMAL) Protime-INR (08/28/2024 6:05 AM CDT) PT 28.5(H) 9.7 - 13.0 sec INR 2.59(H) 0.90 - 1.20 [facility] Comment: Interpretive data Oral anticoagulant therapeutic ranges: Venous thromboembolism prophylaxis or treatment: 2.0-3.0 CARDIOLOGY Standard range: 2.0-3.0 High-intensity range: 2.5-3.5 Refer to indication-specific guidelines for appropriate target ranges for prosthetic heart valve replacement. Current interpretive data was last revised on 2019. Blood 08/28/2024 6:05 AM CDT 08/28/2024 6:14 AM CDT Donnie Castro MD LAB BLOOD ORDERABLES Final Result Performing Organization Address [facility] Co de Phone Number [facility] [place] [address] * Prepare plasma: 1 Units Standard plasma (08/28/2024 2:12 AM CDT) Product code [id number] Unit Number [id number] [facility] Product Blood Type APOS [facility] Dispense Status PRESUMED TRANSFUSED [facility] Blood Venous blood specimen / Unknown 08/28/2024 2:12 AM CDT 08/28/2024 2:12 AM CDT Narrative [facility] - 08/28/2024 4:01 PM CDT Is this plasma order intended for a COVID-19 patient as convalescent plasma?->Standard plasma Special Requirements Needed?->No Date required:-[id number] FFP # of Units:-1-Units Reasons:-Urgent invasive procedure, INR us Zuleima Levine MD BLOOD BANK PRODUCT ORDERA BLES Final Result Performing Organization Address [facility] de Phone Number [facility] [place] [address] * eGFR (08/28/2024 1:32 AM CDT) Pathologist [facility] eGFR 78 >=60 mL/min/1. 73 m2 Comment: Interpretive Data Reference Interval Normal >/= 90 mL/min/1.73m2 Mildly decreased* 60 - 89 mL/min/1.73m2 Mildly to moderately decreased 45 - 59 mL/min/1.73m2 Moderately to severely decreased 30 - 44 mL/min/1.73m2 Severely decreased 15 - 29 mL/min/1.73m2 Kidney Failure < 15 mL/min/1.73m2 *Relative to young adult level Estimated glomerular filtration rate is determined by the 2020 CKD-EPI equation recommended by the National Kidney Foundation (A Unifying Approach to GFR Estimation: Recommendations of the NKF-ASK Task Force on Reassessing the Inclusion of Race in Diagnosing Kidney Disease, JASN 2020). The CKD-EPI equation should not be used for patients with unstable renal function and has not been validated in children and those over 70. Current interpretive data was last reviewed 2021. Blood 08/28/2024 1:32 AM CDT 08/28/2024 1:48 AM CDT us Smith Sawyer MD LAB BLOOD ORDERABLES Lila l Result Performing Organization Address [facility] Co de Phone Number [facility] [place] [address] * (ABNORMAL) Differential, auto (08/28/2024 1:32 AM CDT) Pathologist [facility] Neutrophil abs 1.95 1.50 - 6.50 K/cumm Imm gran abs 0.04 0.00 - 0.10 K/cumm [facility] Lymphocyte abs 0.19(L) 0.80 - 3.30 K/cumm [facility] Monocyte abs 0.67 0.20 - 0.80 K/cumm [facility] Eosinophil abs 0.14 0.00 - 0.50 K/cumm [facility] Basophil abs 0.00 0.00 - 0.10 K/cumm [facility] Neutrophil pct 65.2 % [facility] Comment: Interpretive Data Percent cell count reference ranges are not reported, since discordance with absolute values may lead to misinterpretation of CBC data. Current Interpretive Data was last revised on 2017. Imm gran pct 1.3 % [facility] Comment: Interpretive Data Percent cell count reference ranges are not reported, since discordance with absolute values may lead to misinterpretation of CBC data. Current Interpretive Data was last revised on 2017. Lymphocyte pct 6.4 % [facility] Comment: Interpretive Data Percent cell count reference ranges are not reported, since discordance with absolute values may lead to misinterpretation of CBC data. Current Interpretive Data was last revised on 2017. Monocyte pct 22.4 % [facility] Comment: Interpretive Data Percent cell count reference ranges are not reported, since discordance with absolute values may lead to misinterpretation of CBC data. Current Interpretive Data was last revised on 2017. Eosinophil pct 4.7 % [facility] Comment: Interpretive Data Percent cell count reference ranges are not reported, since discordance with absolute values may lead to misinterpretation of CBC data. Current Interpretive Data was last revised on 2017. Basophil pct 0.0 % [facility] Comment: Interpretive Data Percent cell count reference ranges are not reported, since discordance with absolute values may lead to misinterpretation of CBC data. Current Interpretive Data was last revised on 2017. Blood 08/28/2024 1:32 AM CDT 08/28/2024 1:48 AM CDT us Smith Sawyer MD LAB BLOOD ORDERABLES Lila dawson Result [facility] [place] [address] * (ABNORMAL) CBC with auto differential (08/28/2024 1:32 AM CDT) WBC 2.99(L) 3.80 - 9.90 K/cumm Hgb 8.7(L) 13.0 - 17.5 g/dL [facility] Hct 24.8(L) 38.9 - 50.3 % [facility] Plt 91(L) 150 - 400 K/cumm [facility] MPV 10.0 9.1 - 12.3 fL [facility] RBC 2.30(L) 4.30 - 5.80 M/cumm [facility] MCV 107.8(H) 81.3 - 96.4 fL [facility] MCH 37.8(H) 27.1 - 33.3 pg [facility] MCHC 35.1 32.3 - 35.7 g/dL [facility] RDW CV 21.1(H) 11.1 - 14.9 % [facility] RDW SD 79.5(H) 35.7 - 48.1 fL [facility] NRBC abs 0.02(H) 0.00 - 0.01 K/cumm [facility] Blood 08/28/2024 1:32 AM CDT 08/28/2024 1:48 AM CDT Smith Sawyer MD LAB BLOOD ORDERABLES Lila dawson Result Performing Organization Address City/State/[facility] Co de Phone Number [facility] [place] [address] * (ABNORMAL) Protime-INR (08/28/2024 1:32 AM CDT) PT 32.7(H) 9.7 - 13.0 sec INR 2.96(H) 0.90 - 1.20 [facility] Comment: Interpretive data Oral anticoagulant therapeutic ranges: Venous thromboembolism prophylaxis or treatment: 2.0-3.0 CARDIOLOGY Standard range: 2.0-3.0 High-intensity range: 2.5-3.5 Refer to indication-specific guidelines for appropriate target ranges for prosthetic heart valve replacement. Current interpretive data was last revised on 2019. Blood 08/28/2024 1:32 AM CDT 08/28/2024 1:40 AM CDT Stewart Varghese MD LAB BLOOD ORDERABLES Lila l Result Performing Organization Address City/[facility] Co de Phone Number [facility] [place] [address] * Phosphorus (08/28/2024 1:32 AM CDT) Pathologist [facility] Phosphorus, pl 2.9 2.3 - 4.5 mg/dL Blood 08/28/2024 1:3 2 AM CDT 08/28/2024 1:48 AM CDT Smith Sawyer MD LAB BLOOD ORDERABLES Lila l Result Performing Organization Address [facility] de Phone Number [facility] [place] [address] * (ABNORMAL) Comprehensive metabolic panel (08/28/2024 1:32 AM CDT) Pathologist [facility] Sodium 141 135 - 145 mmol/L Potassium, pl 3.0(L) 3.3 - 4.9 mmol/L [facility] Chloride 112(H) 97 - 110 mmol/L [facility] CO2 21(L) 22 - 32 mmol/L [facility] Anion gap 8 2 - 15 mmol/L [facility] BUN 26(H) 6 - 25 mg/dL [facility] Creatinine 1.01 0.80 - 1.30 mg/dL [facility] Glucose 88 70 - 199 mg/dL [facility] Comment: Interpretive Data Fasting glucose >/= 126 mg/dl is diagnostic for diabetes. Fasting is defined as no caloric intake for at least 8 hours. Fasting glucose between 100 mg/dl to 125 mg/dl is diagnostic of prediabetes. In a patient with classic symptoms of hyperglycemia or hyperglycemic crisis, a random glucose >/= 200 mg/dl is diagnostic for diabetes. In the absence of unequivocal hyperglycemia, results should be confirmed by repeat testing. The classification and Diagnosis of Diabetes Diabetes Care 2021; 46: S19-S40. Current interpretive data was last revised 2022. Calcium 7.7(L) 8.5 - 10.3 mg/dL [facility] Bilirubin, total 0.5 0.1 - 1.2 mg/dL [facility] Protein, pl 4.4(L) 6.5 - 8.5 g/dL [facility] Albumin 2.7(L) 3.5 - 5.0 g/dL [facility] Alk phos 60 40 - 130 Units/L [facility] ALT 23 7 - 55 Units/L [facility] AST 39 10 - 50 Units/L [facility] Blood 08/28/2024 1:32 AM CDT 08/28/2024 1:48 AM CDT Smith Sawyer MD LAB BLOOD ORDERABLES Lila dawson Result [facility] [place] [address] * Rotavirus antigen Stool (08/27/2024 10:04 AM CDT) Rotavirus Ag Negative Negative Comment: Interpretative Data Testing performed at the [facility] using antigen detection with Xpect Rotavirus lateral flow assay. This test is cleared by the [place] Food and Drug Administration for fresh stool specimens. The performance characteristics have been verified by the [facility]. A negative result does not rule out the possibility of rotavirus infection in a patient. False-negative results may occur with specimens containing rotavirus antigen concentrations below the test detection level. Samples collected more than 7 days after the onset of symptoms may not contain enough rotavirus antigens to produce a positive reaction. Coinfection with bacterial, viral, or parasitic pathogens is possible. Testing for presence of bacterial pathogens in parallel with rotavirus testing should be considered if clinically indicated. Interpretive data was last updated 07/22/2019. Stool 08/27/2024 10:0 4 AM CDT 08/27/2024 12:50 PM CDT us Zuleima Levine MD LAB MICROBIOLOGY - GENERA L ORDERABLES Final Result Performing Organization Address [facility] de Phone Number [facility] [place] [address] * eGFR (08/27/2024 12:29 AM CDT) eGFR 78 >=60 mL/min/1. 73 m2 Comment: Interpretive Data Reference Interval Normal >/= 90 mL/min/1.73m2 Mildly decreased* 60 - 89 mL/min/1.73m2 Mildly to moderately decreased 45 - 59 mL/min/1.73m2 Moderately to severely decreased 30 - 44 mL/min/1.73m2 Severely decreased 15 - 29 mL/min/1.73m2 Kidney Failure < 15 mL/min/1.73m2 *Relative to young adult level Estimated glomerular filtration rate is determined by the 2020 CKD-EPI equation recommended by the National Kidney Foundation (A Unifying Approach to GFR Estimation: Recommendations of the NKF-ASK Task Force on Reassessing the Inclusion of Race in Diagnosing Kidney Disease, JASN 2020). The CKD-EPI equation should not be used for patients with unstable renal function and has not been validated in children and those over 70. Current interpretive data was last reviewed 2021. Blood 08/27/2024 12:2 9 AM CDT 08/27/2024 12:43 AM CDT us Smith Sawyer MD LAB BLOOD ORDERABLES Lila l Result Performing Organization Address [facility] Co de Phone Number [facility] [place] [address] * (ABNORMAL) Differential, auto (08/27/2024 12:29 AM CDT) Neutrophil abs 1.83 1.50 - 6.50 K/cumm Imm gran abs 0.04 0.00 - 0.10 K/cumm [facility] Lymphocyte abs 0.12(L) 0.80 - 3.30 K/cumm [facility] Monocyte abs 0.69 0.20 - 0.80 K/cumm [facility] Eosinophil abs 0.07 0.00 - 0.50 K/cumm [facility] Basophil abs 0.01 0.00 - 0.10 K/cumm [facility] Neutrophil pct 66.4 % [facility] Comment: Interpretive Data Percent cell count reference ranges are not reported, since discordance with absolute values may lead to misinterpretation of CBC data. Current Interpretive Data was last revised on 2017. Imm gran pct 1.4 % [facility] Comment: Interpretive Data Percent cell count reference ranges are not reported, since discordance with absolute values may lead to misinterpretation of CBC data. Current Interpretive Data was last revised on 2017. Lymphocyte pct 4.3 % [facility] Comment: Interpretive Data Percent cell count reference ranges are not reported, since discordance with absolute values may lead to misinterpretation of CBC data. Current Interpretive Data was last revised on 2017. Monocyte pct 25.0 % [facility] Comment: Interpretive Data Percent cell count reference ranges are not reported, since discordance with absolute values may lead to misinterpretation of CBC data. Current Interpretive Data was last revised on 2017. Eosinophil pct 2.5 % [facility] Comment: Interpretive Data Percent cell count reference ranges are not reported, since discordance with absolute values may lead to misinterpretation of CBC data. Current Interpretive Data was last revised on 2017. Basophil pct 0.4 % [facility] Comment: Interpretive Data Percent cell count reference ranges are not reported, since discordance with absolute values may lead to misinterpretation of CBC data. Current Interpretive Data was last revised on 2017. Blood 08/27/2024 12:2 9 AM CDT 08/27/2024 12:43 AM CDT us Smith Sawyer MD LAB BLOOD ORDERABLES Lila dawson Result [facility] [place] [address] * (ABNORMAL) CBC with auto differential (08/27/2024 12:29 AM CDT) WBC 2.76(L) 3.80 - 9.90 K/cumm Hgb 9.0(L) 13.0 - 17.5 g/dL [facility] Hct 25.4(L) 38.9 - 50.3 % [facility] Plt 112(L) 150 - 400 K/cumm [facility] MPV 10.0 9.1 - 12.3 fL [facility] RBC 2.41(L) 4.30 - 5.80 M/cumm [facility] MCV 105.4(H) 81.3 - 96.4 fL [facility] MCH 37.3(H) 27.1 - 33.3 pg [facility] MCHC 35.4 32.3 - 35.7 g/dL [facility] RDW CV 19.9(H) 11.1 - 14.9 % [facility] RDW SD 73.0(H) 35.7 - 48.1 fL [facility] NRBC abs 0.05(H) 0.00 - 0.01 K/cumm [facility] Blood 08/27/2024 12:2 9 AM CDT 08/27/2024 12:43 AM CDT us Smith Sawyer MD LAB BLOOD ORDERABLES Lila l Result [facility] [place] [address] * (ABNORMAL) Protime-INR (08/27/2024 12:29 AM CDT) Pathologist [facility] PT 27.0(H) 9.7 - 13.0 sec INR 2.45(H) 0.90 - 1.20 [facility] Comment: Interpretive data Oral anticoagulant therapeutic ranges: Venous thromboembolism prophylaxis or treatment: 2.0-3.0 CARDIOLOGY Standard range: 2.0-3.0 High-intensity range: 2.5-3.5 Refer to indication-specific guidelines for appropriate target ranges for prosthetic heart valve replacement. Current interpretive data was last revised on 2019. Blood 08/27/2024 12:2 9 AM CDT 08/27/2024 12:49 AM CDT Stewart Varghese MD LAB BLOOD ORDERABLES Lila l Result Performing Organization Address [facility] Co de Phone Number [facility] [place] [address] * Type and screen (08/27/2024 12:29 AM CDT) ABO Rh A Positive Minna, indirect Negative [facility] Blood 08/27/2024 12:2 9 AM CDT 08/27/2024 12:46 AM CDT Narrative [facility] - 08/27/2024 2:10 AM CDT Has the patient had Daratumumab or Isatuximab in the past 6 months?->Unknown Simth Sawyer MD LAB BLOOD BANK TEST ORDER DEMETRIO Final Result Performing Organization Address [facility] [place] [address] * Uric acid (08/27/2024 12:29 AM CDT) Uric acid 6.9 3.0 - 8.0 mg/dL Blood 08/27/2024 12:2 9 AM CDT 08/27/2024 12:43 AM CDT Narrative [facility] - 08/27/2024 1:11 AM CDT Saturday and only. Morning draw. . Smith Sawyer MD LAB BLOOD ORDERABLES Lila l Result Performing Organization Address [facility] Co de Phone Number [facility] [place] [address] * (ABNORMAL) Phosphorus (08/27/2024 12:29 AM CDT) [facility] Phosphorus, pl 2.2(L) 2.3 - 4.5 mg/dL Blood 08/27/2024 12:2 9 AM CDT 08/27/2024 12:43 AM CDT Smith Sawyer MD LAB BLOOD ORDERABLES Lila l Result Performing Organization Address [facility] Co de Phone Number [facility] [place] [address] * Magnesium (08/27/2024 12:29 AM CDT) [facility] Magnesium 1.7 1.4 - 2.5 mg/dL Blood 08/27/2024 12:2 9 AM CDT 08/27/2024 12:43 AM CDT Zuleima [place] MD LAB BLOOD ORDERABLES Lila l Result Performing Organization Address [facility] Co de Phone Number [facility] [place] [address] * (ABNORMAL) Lactate dehydrogenase (LD) (08/27/2024 12:29 AM CDT) [facility] Lactate dehydrogenase (LDH) 296(H) 100 - 250 Units/L Blood 08/27/2024 12:2 9 AM CDT 08/27/2024 12:43 AM CDT Narrative [facility] - 08/27/2024 1:11 AM CDT Saturday and only. Morning draw. Smith Sawyer MD LAB BLOOD ORDERABLES Lila l Result Performing Organization Address [facility] Co de Phone Number [facility] [place] [address] * (ABNORMAL) Comprehensive metabolic panel (08/27/2024 12:29 AM CDT) [facility] Sodium 142 135 - 145 mmol/L Potassium, pl 3.4 3.3 - 4.9 mmol/L [facility] Chloride 112(H) 97 - 110 mmol/L [facility] CO2 19(L) 22 - 32 mmol/L [facility] Anion gap 11 2 - 15 mmol/L [facility] BUN 29(H) 6 - 25 mg/dL [facility] Creatinine 1.01 0.80 - 1.30 mg/dL [facility] Glucose 116 70 - 199 mg/dL [facility] Comment: Interpretive Data Fasting glucose >/= 126 mg/dl is diagnostic for diabetes. Fasting is defined as no caloric intake for at least 8 hours. Fasting glucose between 100 mg/dl to 125 mg/dl is diagnostic of prediabetes. In a patient with classic symptoms of hyperglycemia or hyperglycemic crisis, a random glucose >/= 200 mg/dl is diagnostic for diabetes. In the absence of unequivocal hyperglycemia, results should be confirmed by repeat testing. The classification and Diagnosis of Diabetes Diabetes Care 2021; 46: S19-S40. Current interpretive data was last revised 2022. Calcium 7.8(L) 8.5 - 10.3 mg/dL [facility] Bilirubin, total 0.6 0.1 - 1.2 mg/dL [facility] Protein, pl 4.8(L) 6.5 - 8.5 g/dL [facility] Albumin 3.0(L) 3.5 - 5.0 g/dL [facility] Alk phos 68 40 - 130 Units/L [facility] ALT 20 7 - 55 Units/L [facility] AST 37 10 - 50 Units/L [facility] Blood 08/27/2024 12:2 9 AM CDT 08/27/2024 12:43 AM CDT us Smith Sawyer MD LAB BLOOD ORDERABLES Lila dawson Result [facility] [place] [address] * (ABNORMAL) Protime-INR (08/26/2024 5:32 PM CDT) PT 23.9(H) 9.7 - 13.0 sec INR 2.18(H) 0.90 - 1.20 [facility] Comment: Interpretive data Oral anticoagulant therapeutic ranges: Venous thromboembolism prophylaxis or treatment: 2.0-3.0 CARDIOLOGY Standard range: 2.0-3.0 High-intensity range: 2.5-3.5 Refer to indication-specific guidelines for appropriate target ranges for prosthetic heart valve replacement. Current interpretive data was last revised on 2019. Blood 08/26/2024 5:32 PM CDT 08/26/2024 5:54 PM CDT Zuleima [place] MD LAB BLOOD ORDERABLES Lila dawson Result [facility] [place] [address] * eGFR (08/26/2024 2:08 AM CDT) eGFR 64 >=60 mL/min/1. 73 m2 Comment: Interpretive Data Reference Interval Normal >/= 90 mL/min/1.73m2 Mildly decreased* 60 - 89 mL/min/1.73m2 Mildly to moderately decreased 45 - 59 mL/min/1.73m2 Moderately to severely decreased 30 - 44 mL/min/1.73m2 Severely decreased 15 - 29 mL/min/1.73m2 Kidney Failure < 15 mL/min/1.73m2 *Relative to young adult level Estimated glomerular filtration rate is determined by the 2020 CKD-EPI equation recommended by the National Kidney Foundation (A Unifying Approach to GFR Estimation: Recommendations of the NKF-ASK Task Force on Reassessing the Inclusion of Race in Diagnosing Kidney Disease, JASN 202). The CKD-EPI equation should not be used for patients with unstable renal function and has not been validated in children and those over 70. Current interpretive data was last reviewed 2021. Blood 08/26/2024 2:08 AM CDT 08/26/2024 2:24 AM CDT us Smith Sawyer MD LAB BLOOD ORDERABLES Lila dawson Result [facility] [place] [address] * (ABNORMAL) Differential, auto (08/26/2024 2:08 AM CDT) Neutrophil abs 3.03 1.50 - 6.50 K/cumm Imm gran abs 0.06 0.00 - 0.10 K/cumm [facility] Lymphocyte abs 0.27(L) 0.80 - 3.30 K/cumm [facility] Monocyte abs 0.85(H) 0.20 - 0.80 K/cumm [facility] Eosinophil abs 0.13 0.00 - 0.50 K/cumm [facility] Basophil abs 0.01 0.00 - 0.10 K/cumm [facility] Neutrophil pct 69.7 % [facility] Comment: Interpretive Data Percent cell count reference ranges are not reported, since discordance with absolute values may lead to misinterpretation of CBC data. Current Interpretive Data was last revised on 2017. Imm gran pct 1.4 % [facility] Comment: Interpretive Data Percent cell count reference ranges are not reported, since discordance with absolute values may lead to misinterpretation of CBC data. Current Interpretive Data was last revised on 2017. Lymphocyte pct 6.2 % [facility] Comment: Interpretive Data Percent cell count reference ranges are not reported, since discordance with absolute values may lead to misinterpretation of CBC data. Current Interpretive Data was last revised on 2017. Monocyte pct 19.5 % [facility] Comment: Interpretive Data Percent cell count reference ranges are not reported, since discordance with absolute values may lead to misinterpretation of CBC data. Current Interpretive Data was last revised on 2017. Eosinophil pct 3.0 % [facility] Comment: Interpretive Data Percent cell count reference ranges are not reported, since discordance with absolute values may lead to misinterpretation of CBC data. Current Interpretive Data was last revised on 2017. Basophil pct 0.2 % [facility] Comment: Interpretive Data Percent cell count reference ranges are not reported, since discordance with absolute values may lead to misinterpretation of CBC data. Current Interpretive Data was last revised on 2017. Blood 08/26/2024 2:08 AM CDT 08/26/2024 2:24 AM CDT Smith Sawyer MD LAB BLOOD ORDERABLES Lila l Result Performing Organization Address City/[facility]/ZIP Co de Phone Number [facility] [place] [address] * (ABNORMAL) CBC with auto differential (08/26/2024 2:08 AM CDT) WBC 4.35 3.80 - 9.90 K/cumm Hgb 9.3(L) 13.0 - 17.5 g/dL [facility] Hct 25.9(L) 38.9 - 50.3 % [facility] Plt 134(L) 150 - 400 K/cumm [facility] MPV 9.8 9.1 - 12.3 fL [facility] RBC 2.47(L) 4.30 - 5.80 M/cumm [facility] MCV 104.9(H) 81.3 - 96.4 fL [facility] MCH 37.7(H) 27.1 - 33.3 pg [facility] MCHC 35.9(H) 32.3 - 35.7 g/dL [facility] RDW CV 19.6(H) 11.1 - 14.9 % [facility] RDW SD 71.3(H) 35.7 - 48.1 fL [facility] NRBC abs 0.08(H) 0.00 - 0.01 K/cumm [facility] Blood 08/26/2024 2:08 AM CDT 08/26/2024 2:24 AM CDT Smith Sawyer MD LAB BLOOD ORDERABLES Lila dawson Result Performing Organization Address City/[facility]/ZIP Co de Phone Number [facility] [place] [address] * (ABNORMAL) Protime-INR (08/26/2024 2:08 AM CDT) Pathologist [facility] PT 18.4(H) 9.7 - 13.0 sec INR 1.69(H) 0.90 - 1.20 [facility] Comment: Interpretive data Oral anticoagulant therapeutic ranges: Venous thromboembolism prophylaxis or treatment: 2.0-3.0 CARDIOLOGY Standard range: 2.0-3.0 High-intensity range: 2.5-3.5 Refer to indication-specific guidelines for appropriate target ranges for prosthetic heart valve replacement. Current interpretive data was last revised on 2019. Blood 08/26/2024 2:08 AM CDT 08/26/2024 2:30 AM CDT Stewart Varghese MD LAB BLOOD ORDERABLES Lila l Result Performing Organization Address City/[facility]/ZIP Co de Phone Number [facility] [place] [address] * Phosphorus (08/26/2024 2:08 AM CDT) [facility] Phosphorus, pl 3.4 2.3 - 4.5 mg/dL Blood 08/26/2024 2:08 AM CDT 08/26/2024 2:24 AM CDT Smith Sawyer MD LAB BLOOD [place] [address] * Magnesium (08/26/2024 2:08 AM CDT) [facility] Magnesium 1.8 1.4 - 2.5 mg/dL Blood 08/26/2024 2:08 AM CDT 08/26/2024 2:24 AM CDT us Zuleima Levine MD LAB BLOOD ORDERABLES Lila dawson Result [facility] [place] [address] * (ABNORMAL) Comprehensive metabolic panel (08/26/2024 2:08 AM CDT) Sodium 140 135 - 145 mmol/L Potassium, pl 3.1(L) 3.3 - 4.9 mmol/L [facility] Chloride 109 97 - 110 mmol/L [facility] CO2 20(L) 22 - 32 mmol/L [facility] Anion gap 11 2 - 15 mmol/L [facility] BUN 36(H) 6 - 25 mg/dL [facility] Creatinine 1.18 0.80 - 1.30 mg/dL [facility] Glucose 107 70 - 199 mg/dL [facility] Comment: Interpretive Data Fasting glucose >/= 126 mg/dl is diagnostic for diabetes. Fasting is defined as no caloric intake for at least 8 hours. Fasting glucose between 100 mg/dl to 125 mg/dl is diagnostic of prediabetes. In a patient with classic symptoms of hyperglycemia or hyperglycemic crisis, a random glucose >/= 200 mg/dl is diagnostic for diabetes. In the absence of unequivocal hyperglycemia, results should be confirmed by repeat testing. The classification and Diagnosis of Diabetes Diabetes Care 202; 46: S19-S40. Current interpretive data was last revised 2022. Calcium 8.1(L) 8.5 - 10.3 mg/dL [facility] Bilirubin, total 0.7 0.1 - 1.2 mg/dL [facility] Protein, pl 5.1(L) 6.5 - 8.5 g/dL [facility] Albumin 3.1(L) 3.5 - 5.0 g/dL [facility] Alk phos 78 40 - 130 Units/L [facility] ALT 19 7 - 55 Units/L [facility] AST 33 10 - 50 Units/L [facility] Blood 08/26/2024 2:08 AM CDT 08/26/2024 2:24 AM CDT Smith Sawyer MD LAB BLOOD ORDERABLES Lila l Result Performing Organization Address [facility] Co de Phone Number [facility] [place] [address] * eGFR (08/25/2024 2:06 AM CDT) eGFR 65 >=60 mL/min/1. 73 m2 Comment: Interpretive Data Reference Interval Normal >/= 90 mL/min/1.73m2 Mildly decreased* 60 - 89 mL/min/1.73m2 Mildly to moderately decreased 45 - 59 mL/min/1.73m2 Moderately to severely decreased 30 - 44 mL/min/1.73m2 Severely decreased 15 - 29 mL/min/1.73m2 Kidney Failure < 15 mL/min/1.73m2 *Relative to young adult level Estimated glomerular filtration rate is determined by the 2020 CKD-EPI equation recommended by the National Kidney Foundation (A Unifying Approach to GFR Estimation: Recommendations of the NKF-ASK Task Force on Reassessing the Inclusion of Race in Diagnosing Kidney Disease, JASN 2020). The CKD-EPI equation should not be used for patients with unstable renal function and has not been validated in children and those over 70. Current interpretive data was last reviewed 2021. Blood 08/25/2024 2:06 AM CDT 08/25/2024 2:26 AM CDT Smith Sawyer MD LAB BLOOD ORDERABLES Lila l Result Performing Organization Address City/[facility] Co de Phone Number [facility] [place] [address] * (ABNORMAL) Differential, auto (08/25/2024 2:06 AM CDT) Pathologist [facility] Neutrophil abs 2.52 1.50 - 6.50 K/cumm Imm gran abs 0.03 0.00 - 0.10 K/cumm [facility] Lymphocyte abs 0.26(L) 0.80 - 3.30 K/cumm [facility] Monocyte abs 0.72 0.20 - 0.80 K/cumm [facility] Eosinophil abs 0.06 0.00 - 0.50 K/cumm [facility] Basophil abs 0.00 0.00 - 0.10 K/cumm [facility] Neutrophil pct 70.2 % [facility] Comment: Interpretive Data Percent cell count reference ranges are not reported, since discordance with absolute values may lead to misinterpretation of CBC data. Current Interpretive Data was last revised on 2017. Imm gran pct 0.8 % [facility] Comment: Interpretive Data Percent cell count reference ranges are not reported, since discordance with absolute values may lead to misinterpretation of CBC data. Current Interpretive Data was last revised on 2017. Lymphocyte pct 7.2 % [facility] Comment: Interpretive Data Percent cell count reference ranges are not reported, since discordance with absolute values may lead to misinterpretation of CBC data. Current Interpretive Data was last revised on 2017. Monocyte pct 20.1 % [facility] Comment: Interpretive Data Percent cell count reference ranges are not reported, since discordance with absolute values may lead to misinterpretation of CBC data. Current Interpretive Data was last revised on 2017. Eosinophil pct 1.7 % [facility] Comment: Interpretive Data Percent cell count reference ranges are not reported, since discordance with absolute values may lead to misinterpretation of CBC data. Current Interpretive Data was last revised on 2017. Basophil pct 0.0 % [facility] Comment: Interpretive Data Percent cell count reference ranges are not reported, since discordance with absolute values may lead to misinterpretation of CBC data. Current Interpretive Data was last revised on 2017. Blood 08/25/2024 2:06 AM CDT 08/25/2024 2:27 AM CDT us Smith Sawyer MD LAB BLOOD ORDERABLES Lila dawson Result [facility] [place] [address] * (ABNORMAL) CBC with auto differential (08/25/2024 2:06 AM CDT) WBC 3.59(L) 3.80 - 9.90 K/cumm Hgb 9.4(L) 13.0 - 17.5 g/dL [facility] Hct 26.9(L) 38.9 - 50.3 % [facility] Plt 149(L) 150 - 400 K/cumm [facility] MPV 9.8 9.1 - 12.3 fL [facility] RBC 2.54(L) 4.30 - 5.80 M/cumm [facility] MCV 105.9(H) 81.3 - 96.4 fL [facility] MCH 37.0(H) 27.1 - 33.3 pg [facility] MCHC 34.9 32.3 - 35.7 g/dL [facility] RDW CV 19.0(H) 11.1 - 14.9 % [facility] RDW SD 66.2(H) 35.7 - 48.1 fL [facility] NRBC abs 0.04(H) 0.00 - 0.01 K/cumm [facility] Blood 08/25/2024 2:06 AM CDT 08/25/2024 2:27 AM CDT Smith Sawyer MD LAB BLOOD ORDERABLES Lila dawson Result Performing Organization Address City/State/[facility] Co de Phone Number [facility] [place] [address] * (ABNORMAL) Protime-INR (08/25/2024 2:06 AM CDT) PT 14.6(H) 9.7 - 13.0 sec INR 1.34(H) 0.90 - 1.20 [facility] Comment: Interpretive data Oral anticoagulant therapeutic ranges: Venous thromboembolism prophylaxis or treatment: 2.0-3.0 CARDIOLOGY Standard range: 2.0-3.0 High-intensity range: 2.5-3.5 Refer to indication-specific guidelines for appropriate target ranges for prosthetic heart valve replacement. Current interpretive data was last revised on 2019. Blood 08/25/2024 2:06 AM CDT 08/25/2024 2:34 AM CDT Stewart Varghese MD LAB BLOOD ORDERABLES Lila l Result Performing Organization Address City/[facility] Co de Phone Number [facility] [place] [address] * Phosphorus (08/25/2024 2:06 AM CDT) Phosphorus, pl 3.6 2.3 - 4.5 mg/dL Blood 08/25/2024 2:06 AM CDT 08/25/2024 2:26 AM CDT Smith Sawyer MD LAB BLOOD ORDERABLES Lila l Result Performing Organization Address [facility] de Phone Number [facility] [place] [address] * (ABNORMAL) Comprehensive metabolic panel (08/25/2024 2:06 AM CDT) Pathologist [facility] Sodium 142 135 - 145 mmol/L Potassium, pl 3.4 3.3 - 4.9 mmol/L [facility] Chloride 111(H) 97 - 110 mmol/L [facility] CO2 21(L) 22 - 32 mmol/L [facility] Anion gap 10 2 - 15 mmol/L [facility] BUN 38(H) 6 - 25 mg/dL [facility] Creatinine 1.17 0.80 - 1.30 mg/dL [facility] Glucose 121 70 - 199 mg/dL [facility] Comment: Interpretive Data Fasting glucose >/= 126 mg/dl is diagnostic for diabetes. Fasting is defined as no caloric intake for at least 8 hours. Fasting glucose between 100 mg/dl to 125 mg/dl is diagnostic of prediabetes. In a patient with classic symptoms of hyperglycemia or hyperglycemic crisis, a random glucose >/= 200 mg/dl is diagnostic for diabetes. In the absence of unequivocal hyperglycemia, results should be confirmed by repeat testing. The classification and Diagnosis of Diabetes Diabetes Care 202; 46: S19-S40. Current interpretive data was last revised 2022. Calcium 8.3(L) 8.5 - 10.3 mg/dL [facility] Bilirubin, total 0.7 0.1 - 1.2 mg/dL [facility] Protein, pl 5.1(L) 6.5 - 8.5 g/dL [facility] Albumin 3.2(L) 3.5 - 5.0 g/dL [facility] Alk phos 78 40 - 130 Units/L [facility] ALT 16 7 - 55 Units/L [facility] AST 29 10 - 50 Units/L [facility] Blood 08/25/2024 2:06 AM CDT 08/25/2024 2:26 AM CDT Smith Sawyer MD LAB BLOOD ORDERABLES Lila dawson Result [facility] [place] [address] * eGFR (08/24/2024 3:33 AM CDT) eGFR 62 >=60 mL/min/1. 73 m2 Comment: Interpretive Data Reference Interval Normal >/= 90 mL/min/1.73m2 Mildly decreased* 60 - 89 mL/min/1.73m2 Mildly to moderately decreased 45 - 59 mL/min/1.73m2 Moderately to severely decreased 30 - 44 mL/min/1.73m2 Severely decreased 15 - 29 mL/min/1.73m2 Kidney Failure < 15 mL/min/1.73m2 *Relative to young adult level Estimated glomerular filtration rate is determined by the 2020 CKD-EPI equation recommended by the National Kidney Foundation (A Unifying Approach to GFR Estimation: Recommendations of the NKF-ASK Task Force on Reassessing the Inclusion of Race in Diagnosing Kidney Disease, JASN 2020). The CKD-EPI equation should not be used for patients with unstable renal function and has not been validated in children and those over 70. Current interpretive data was last reviewed 2021. Blood 08/24/2024 3:33 AM CDT 08/24/2024 4:13 AM CDT us Smith Sawyer MD LAB BLOOD ORDERABLES Lila dawson Result [facility] [place] [address] * (ABNORMAL) Differential, auto (08/24/2024 3:33 AM CDT) Neutrophil abs 2.28 1.50 - 6.50 K/cumm Imm gran abs 0.03 0.00 - 0.10 K/cumm [facility] Lymphocyte abs 0.30(L) 0.80 - 3.30 K/cumm [facility] Monocyte abs 0.76 0.20 - 0.80 K/cumm [facility] Eosinophil abs 0.02 0.00 - 0.50 K/cumm [facility] Basophil abs 0.01 0.00 - 0.10 K/cumm [facility] Neutrophil pct 67.0 % [facility] Comment: Interpretive Data Percent cell count reference ranges are not reported, since discordance with absolute values may lead to misinterpretation of CBC data. Current Interpretive Data was last revised on 2017. Imm gran pct 0.9 % [facility] Comment: Interpretive Data Percent cell count reference ranges are not reported, since discordance with absolute values may lead to misinterpretation of CBC data. Current Interpretive Data was last revised on 2017. Lymphocyte pct 8.8 % [facility] Comment: Interpretive Data Percent cell count reference ranges are not reported, since discordance with absolute values may lead to misinterpretation of CBC data. Current Interpretive Data was last revised on 2017. Monocyte pct 22.4 % [facility] Comment: Interpretive Data Percent cell count reference ranges are not reported, since discordance with absolute values may lead to misinterpretation of CBC data. Current Interpretive Data was last revised on 2017. Eosinophil pct 0.6 % [facility] Comment: Interpretive Data Percent cell count reference ranges are not reported, since discordance with absolute values may lead to misinterpretation of CBC data. Current Interpretive Data was last revised on 2017. Basophil pct 0.3 % [facility] Comment: Interpretive Data Percent cell count reference ranges are not reported, since discordance with absolute values may lead to misinterpretation of CBC data. Current Interpretive Data was last revised on 2017. Blood 08/24/2024 3:33 AM CDT 08/24/2024 4:14 AM CDT Smith Sawyer MD LAB BLOOD ORDERABLES Lila eunice Result [facility] [place] [address] * (ABNORMAL) CBC with auto differential (08/24/2024 3:33 AM CDT) WBC 3.40(L) 3.80 - 9.90 K/cumm Hgb 9.4(L) 13.0 - 17.5 g/dL [facility] Hct 26.3(L) 38.9 - 50.3 % [facility] Plt 162 150 - 400 K/cumm [facility] MPV 9.5 9.1 - 12.3 fL [facility] RBC 2.52(L) 4.30 - 5.80 M/cumm [facility] MCV 104.4(H) 81.3 - 96.4 fL [facility] MCH 37.3(H) 27.1 - 33.3 pg [facility] MCHC 35.7 32.3 - 35.7 g/dL [facility] RDW CV 18.5(H) 11.1 - 14.9 % [facility] RDW SD 62.8(H) 35.7 - 48.1 fL [facility] NRBC abs 0.04(H) 0.00 - 0.01 K/cumm [facility] Blood 08/24/2024 3:33 AM CDT 08/24/2024 4:14 AM CDT Smith Sawyer MD LAB BLOOD ORDERABLES Lila l Result Performing Organization Address [facility] Co de Phone Number [facility] [place] [place] [address] * aPTT (08/24/2024 3:33 AM CDT) aPTT 34 28 - 38 sec Comment: Interpretive Data Heparin therapeutic range: 66.0 - 100.0 seconds. Range based on correlation with therapeutic heparin activity range of 0.3 - 0.7 Units/mL. Current interpretive data was last revised on 2023. Blood 08/24/2024 3:33 AM CDT 08/24/2024 4:12 AM CDT Smith Sawyer MD LAB BLOOD ORDERABLES Lila l Result Performing Organization Address [facility] de Phone Number [facility] [employer] [place] [address] * (ABNORMAL) Protime-INR (08/24/2024 3:33 AM CDT) PT 17.8(H) 9.7 - 13.0 sec INR 1.63(H) 0.90 - 1.20 [facility] Comment: Interpretive data Oral anticoagulant therapeutic ranges: Venous thromboembolism prophylaxis or treatment: 2.0-3.0 CARDIOLOGY Standard range: 2.0-3.0 High-intensity range: 2.5-3.5 Refer to indication-specific guidelines for appropriate target ranges for prosthetic heart valve replacement. Current interpretive data was last revised on 2019. Blood 08/24/2024 3:33 AM CDT 08/24/2024 4:12 AM CDT Smith Sawyer MD LAB BLOOD ORDERABLES Lila l Result Performing Organization Address [facility] Co de Phone Number [facility]AN [facility] [employer] [place] [address] * Type and screen (08/24/2024 3:33 AM CDT) ABO Rh A Positive Minna, indirect Negative [facility] Blood 08/24/2024 3:33 AM CDT 08/24/2024 3:48 AM CDT Narrative [facility] - 08/24/2024 4:35 AM CDT Has the patient had Daratumumab or Isatuximab in the past 6 months?->Unknown Smith Sawyer MD LAB BLOOD BANK TEST ORDER DEMETRIO Final Result Performing Organization Address City/[facility] Co de Phone Number [facility] [place] [employer] [place] [address] * Uric acid (08/24/2024 3:33 AM CDT) [facility] Uric acid 7.6 3.0 - 8.0 mg/dL Blood 08/24/2024 3:33 AM CDT 08/24/2024 4:13 AM CDT Narrative [facility] - 08/24/2024 4:41 AM CDT Saturday and only. Morning draw. . Smith Sawyer MD LAB BLOOD ORDERABLES Lila l Result Performing Organization Address City/[facility]/ZIP Co de Phone Number [facility] Department [place] [employer] [place] [address] * Phosphorus (08/24/2024 3:33 AM CDT) Pathologist [facility] Phosphorus, pl 3.4 2.3 - 4.5 mg/dL Blood 08/24/2024 3:33 AM CDT 08/24/2024 4:13 AM CDT Smith Sawyer MD LAB BLOOD ORDERABLES Lila l Result Performing Organization Address City/[facility]/ZIP Co de Phone Number [facility] [place] [employer] [place] [address] * (ABNORMAL) Lactate dehydrogenase (LD) (08/24/2024 3:33 AM CDT) Lactate dehydrogenase (LDH) 302(H) 100 - 250 Units/L Blood 08/24/2024 3:33 AM CDT 08/24/2024 4:13 AM CDT Narrative [facility] - 08/24/2024 4:41 AM CDT Saturday and only. Morning draw. Smith Sawyer MD LAB BLOOD ORDERABLES Lila l Result [facility] [place] [address] * (ABNORMAL) Comprehensive metabolic panel (08/24/2024 3:33 AM CDT) Pathologist [facility] Sodium 139 135 - 145 mmol/L Potassium, pl 3.4 3.3 - 4.9 mmol/L [facility] Chloride 108 97 - 110 mmol/L [facility] CO2 19(L) 22 - 32 mmol/L [facility] Anion gap 12 2 - 15 mmol/L [facility] BUN 39(H) 6 - 25 mg/dL [facility] Creatinine 1.21 0.80 - 1.30 mg/dL [facility] Glucose 113 70 - 199 mg/dL [facility] Comment: Interpretive Data Fasting glucose >/= 126 mg/dl is diagnostic for diabetes. Fasting is defined as no caloric intake for at least 8 hours. Fasting glucose between 100 mg/dl to 125 mg/dl is diagnostic of prediabetes. In a patient with classic symptoms of hyperglycemia or hyperglycemic crisis, a random glucose >/= 200 mg/dl is diagnostic for diabetes. In the absence of unequivocal hyperglycemia, results should be confirmed by repeat testing. The classification and Diagnosis of Diabetes Diabetes Care 202; 46: S19-S40. Current interpretive data was last revised 2022. Calcium 8.6 8.5 - 10.3 mg/dL [facility] Bilirubin, total 0.8 0.1 - 1.2 mg/dL [facility] Protein, pl 5.2(L) 6.5 - 8.5 g/dL [facility] Albumin 3.1(L) 3.5 - 5.0 g/dL [facility] Alk phos 75 40 - 130 Units/L [facility] ALT 15 7 - 55 Units/L [facility] AST 29 10 - 50 Units/L [facility] Blood 08/24/2024 3:33 AM CDT 08/24/2024 4:13 AM CDT Smith Sawyer MD LAB BLOOD ORDERABLES Lila l Result Performing Organization Address City/[facility] Co de Phone Number [facility] [employer] [place] [address] * Critical Result Callback Hematology (08/23/2024 8:31 AM CDT) Date Notified [id number] Time Notified 939 [facility] TestName INR [facility] Called/Read Back Trish Kwok [facility] Credentials RN [facility] Called By TP [facility] Blood 08/23/2024 8:31 AM CDT 08/23/2024 8:48 AM CDT us Stewart Varghese MD LAB BLOOD ORDERABLES Lila l Result Performing Organization Address City/[facility]/ZIP Co de Phone Number [facility] [place] [employer] [place] [address] * (ABNORMAL) aPTT (08/23/2024 8:31 AM CDT) aPTT 45(H) 28 - 38 sec Comment: Interpretive Data Heparin therapeutic range: 66.0 - 100.0 seconds. Range based on correlation with therapeutic heparin activity range of 0.3 - 0.7 Units/mL. Current interpretive data was last revised on 2023. Blood 08/23/2024 8:31 AM CDT 08/23/2024 8:48 AM CDT Stewart Varghese MD LAB BLOOD ORDERABLES Lila l Result Performing Organization Address City/[facility] Co de Phone Number [facility] [place] [employer] [place] [address] * (ABNORMAL) Thrombin time (08/23/2024 8:31 AM CDT) Thrombin time 15.3(H) 10.0 - 15.0 sec Blood 08/23/2024 8:31 AM CDT 08/23/2024 8:48 AM CDT Stewart Varghese MD LAB BLOOD ORDERABLES Lila l Result Performing Organization Address [facility] de Phone Number [facility] [place] [place] [address] * (ABNORMAL) Protime-INR (08/23/2024 8:31 AM CDT) PT >100.0(H) 9.7 - 13.0 sec Comment: Verified No clot detected in sample. INR >9.00(C) 0.90 - 1.20 [facility] Comment: Verified No clot detected in sample. Interpretive data Oral anticoagulant therapeutic ranges: Venous thromboembolism prophylaxis or treatment: 2.0-3.0 CARDIOLOGY Standard range: 2.0-3.0 High-intensity range: 2.5-3.5 Refer to indication-specific guidelines for appropriate target ranges for prosthetic heart valve replacement. Current interpretive data was last revised on 2019. Blood 08/23/2024 8:31 AM CDT 08/23/2024 8:48 AM CDT Stewart Varghese MD LAB BLOOD ORDERABLES Lila l Result Performing Organization Address [facility] Co de Phone Number [facility] [place] [employer] [place] [address] * eGFR (08/23/2024 12:33 AM CDT) Pathologist [facility] eGFR 62 >=60 mL/min/1. 73 m2 Comment: Interpretive Data Reference Interval Normal >/= 90 mL/min/1.73m2 Mildly decreased* 60 - 89 mL/min/1.73m2 Mildly to moderately decreased 45 - 59 mL/min/1.73m2 Moderately to severely decreased 30 - 44 mL/min/1.73m2 Severely decreased 15 - 29 mL/min/1.73m2 Kidney Failure < 15 mL/min/1.73m2 *Relative to young adult level Estimated glomerular filtration rate is determined by the 2020 CKD-EPI equation recommended by the National Kid[employer] (A Unifying Approach to GFR Estimation: Recommendations of the NKF-ASK Task Force on Reassessing the Inclusion of Race in Diagnosing Kidney Disease, JASN 2020). The CKD-EPI equation should not be used for patients with unstable renal function and has not been validated in children and those over 70. Current interpretive data was last reviewed 2021. Blood 08/23/2024 12:3 3 AM CDT 08/23/2024 12:55 AM CDT us Smith Sawyer MD LAB BLOOD ORDERABLES Lila dawson Result [facility] [place] [address] * (ABNORMAL) Differential, auto (08/23/2024 12:33 AM CDT) [facility] Neutrophil abs 3.43 1.50 - 6.50 K/cumm Imm gran abs 0.02 0.00 - 0.10 K/cumm [facility] Lymphocyte abs 0.19(L) 0.80 - 3.30 K/cumm [facility] Monocyte abs 0.78 0.20 - 0.80 K/cumm [facility] Eosinophil abs 0.00 0.00 - 0.50 K/cumm [facility] Basophil abs 0.00 0.00 - 0.10 K/cumm [facility] Neutrophil pct 77.6 % [facility] Comment: Interpretive Data Percent cell count reference ranges are not reported, since discordance with absolute values may lead to misinterpretation of CBC data. Current Interpretive Data was last revised on 2017. Imm gran pct 0.5 % [facility] Comment: Interpretive Data Percent cell count reference ranges are not reported, since discordance with absolute values may lead to misinterpretation of CBC data. Current Interpretive Data was last revised on 2017. Lymphocyte pct 4.3 % [facility] Comment: Interpretive Data Percent cell count reference ranges are not reported, since discordance with absolute values may lead to misinterpretation of CBC data. Current Interpretive Data was last revised on 2017. Monocyte pct 17.6 % [facility] Comment: Interpretive Data Percent cell count reference ranges are not reported, since discordance with absolute values may lead to misinterpretation of CBC data. Current Interpretive Data was last revised on 2017. Eosinophil pct 0.0 % [facility] Comment: Interpretive Data Percent cell count reference ranges are not reported, since discordance with absolute values may lead to misinterpretation of CBC data. Current Interpretive Data was last revised on 2017. Basophil pct 0.0 % [facility] Comment: Interpretive Data Percent cell count reference ranges are not reported, since discordance with absolute values may lead to misinterpretation of CBC data. Current Interpretive Data was last revised on 2017. Blood 08/23/2024 12:3 3 AM CDT 08/23/2024 12:55 AM CDT us Smith Sawyer MD LAB BLOOD ORDERABLES Lila dawson Result [facility] Department of Laboratories [place], [place] [id number] * (ABNORMAL) CBC with auto differential (08/23/2024 12:33 AM CDT) WBC 4.42 3.80 - 9.90 K/cumm Hgb 9.2(L) 13.0 - 17.5 g/dL [facility] Hct 25.8(L) 38.9 - 50.3 % [facility] Plt 183 150 - 400 K/cumm [facility] MPV 9.6 9.1 - 12.3 fL [facility] RBC 2.51(L) 4.30 - 5.80 M/cumm [facility] MCV 102.8(H) 81.3 - 96.4 fL [facility] MCH 36.7(H) 27.1 - 33.3 pg [facility] MCHC 35.7 32.3 - 35.7 g/dL [facility] RDW CV 18.0(H) 11.1 - 14.9 % [facility] RDW SD 61.4(H) 35.7 - 48.1 fL [facility] NRBC abs 0.04(H) 0.00 - 0.01 K/cumm [facility] Blood 08/23/2024 12:3 3 AM CDT 08/23/2024 12:55 AM CDT Smith Sawyer MD LAB BLOOD ORDERABLES Lila l Result Performing Organization Address City/[facility]/ZIP Co de Phone Number [facility] Department [place] [employer] [place] [address] * Phosphorus (08/23/2024 12:33 AM CDT) [facility] Phosphorus, pl 3.3 2.3 - 4.5 mg/dL Blood 08/23/2024 12:3 3 AM CDT 08/23/2024 12:55 AM CDT Smith Sawyer MD LAB BLOOD ORDERABLES Lila l Result [facility] [place] [employer] [place] [address] * (ABNORMAL) Comprehensive metabolic panel (08/23/2024 12:33 AM CDT) [facility] Sodium 139 135 - 145 mmol/L Potassium, pl 3.9 3.3 - 4.9 mmol/L [facility] Chloride 107 97 - 110 mmol/L [facility] CO2 21(L) 22 - 32 mmol/L [facility] Anion gap 11 2 - 15 mmol/L [facility] BUN 38(H) 6 - 25 mg/dL [facility] Creatinine 1.22 0.80 - 1.30 mg/dL [facility] Glucose 160 70 - 199 mg/dL [facility] Comment: Interpretive Data Fasting glucose >/= 126 mg/dl is diagnostic for diabetes. Fasting is defined as no caloric intake for at least 8 hours. Fasting glucose between 100 mg/dl to 125 mg/dl is diagnostic of prediabetes. In a patient with classic symptoms of hyperglycemia or hyperglycemic crisis, a random glucose >/= 200 mg/dl is diagnostic for diabetes. In the absence of unequivocal hyperglycemia, results should be confirmed by repeat testing. The classification and Diagnosis of Diabetes Diabetes Care 202; 46: S19-S40. Current interpretive data was last revised 2022. Calcium 8.8 8.5 - 10.3 mg/dL [facility] Bilirubin, total 0.7 0.1 - 1.2 mg/dL [facility] Protein, pl 5.5(L) 6.5 - 8.5 g/dL [facility] Albumin 3.6 3.5 - 5.0 g/dL [facility] Alk phos 77 40 - 130 Units/L [facility] ALT 17 7 - 55 Units/L [facility] AST 25 10 - 50 Units/L [facility] Blood 08/23/2024 12:3 3 AM CDT 08/23/2024 12:55 AM CDT Smith Sawyer MD LAB BLOOD ORDERABLES Lila dawson Result [facility] [place] [address] * -Miscellaneous Molecular Send-Out Request (08/22/2024 3:01 PM CDT) Result 1 Test Name: Dihydropyrimidine Dehydrogenase Gene Full Sequencing (Horner) Specimen Type: PB Result: See attached scanned report for results. Test name Dihydropyrimidine Dehydrogenase Gene Full Sequencing (Horner) [facility] Miscellaneous 08/22/2024 3:0 1 PM CDT 08/27/2024 10:39 AM CDT Narrative [facility] - 09/02/2024 8:17 AM CDT Dihydropyrimidine Dehydrogenase Gene Full Sequencing ([facility]ner) Miscellaneous Lab Test Zuleima Levine MD LAB GENETIC TESTING Final Result [facility] [place] [address] * CT Chest Abdomen Pelvis W Contrast (08/22/2024 10:08 AM CDT) Anatomical Region Laterality Modality Body N/A Computed Tomogra phy 08/22/2024 12:3 8 PM CDT Impressions 08/22/2024 12:52 PM CDT 1. Proctocolitis with a diarrheal state, likely infectious or inflammatory. 2. 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 3. Slightly increased size of ill-defined hypoattenuating lesion in hepatic segment 4, in close proximity to the previous partial hepatectomy site. This could represent postsurgical change, however given its interval increase in size, recommend attention on follow-up MRI to exclude possible recurrent disease. 4. Significantly distended urinary bladder, with enlarged prostate likely represents chronic bladder outlet obstruction. Consider Stafford decompression. 5. No evidence of metastatic disease in the chest. Dictated by: Danita Myers M.D. The radiology attending physician has personally reviewed this study, and had reviewed and/or edited this written report and agrees with it. Electronically signed by: Cheri Craig M.D. 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 Nausea, vomiting, diarrhea, fatigue. Concern for colitis. TECHNIQUE: Transaxial computed tomographic images of the chest, abdomen and pelvis were obtained with intravenous contrast according to the standard protocol after the uneventful administration of 69 mL Opti-Ray 350 intravenous contrast. COMPARISON: Prior CT abdomen pelvis dated 05/01/2024, and CT chest dated 02/12/2024. FINDINGS: Chest: Bilateral unchanged thyroid nodules, the largest of which is in the left lobe of the thyroid and measures 1.7 x 1.0 cm. Another nodule more inferiorly is calcified. No supraclavicular, axillary, mediastinal or hilar lymphadenopathy. The heart is normal in size, with trace pericardial fluid, not significantly changed since most recent chest CT dated 02/12/2024. There is a right internal jugular approach port catheter with tip terminating in the superior cavoatrial junction. A left subclavian pacemaker is noted, with leads in the right atrium and right ventricle. Multivessel coronary artery disease. Calcification is noted of the aortic valve. Normal caliber intrathoracic aorta, with a common origin of the brachiocephalic and left common carotid arteries. Calcification is noted of the aortic arch. Upper limits of normal caliber main pulmonary artery. Old granulomatous disease of the left lung the mayela. Small hiatal hernia. Mild bilateral gynecomastia. The central airways are of normal caliber. No consolidation, pleural effusion or pneumothorax. Mild scarring versus atelectasis in the right lung base, unchanged from 02/12/2024. Interval resolution of the left lower lobe area of groundglass opacity seen on prior chest CT dated 02/12/[address] dated 05/01/2024. Abdomen/Pelvis: The patient is status post left sided partial liver resection. 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 The patient's known hilar cholangiocarcinoma is better evaluated on MRI dated 07/10/2024. The soft tissue encases the hepatic arteries and abuts the right main portal vein. There is mild intrahepatic biliary ductal dilation, most pronounced in left lateral section stable from most recent MRI. The segment 4B liver lesion is slightly increased in size compared to the last CT scan performed 05/01/2024. It currently measures 2.4 cm AP by 1.1 cm transverse, previously 1.4 cm AP by 1.2 cm transverse on the prior CT. This is not well seen on the prior MRI. Left and right biliary ductal stents are noted, which have been exchanged in the interval from the prior CT scan, and are slightly changed in position, with both tips still terminating in the 4th portion of the duodenum. No extrahepatic biliary ductal dilation. The portal vein and superior mesenteric vein are patent. The pancreas is normal, without pancreatic ductal dilation. The spleen is normal, with a calcific focus consistent with granulomatous disease. A small splenule is noted. The adrenal glands are normal. The kidneys enhance symmetrically, without hydronephrosis or nephrolithiasis. There is a left extrarenal pelvis. Small hypoattenuating lesions in the right kidney are too small to characterize. A hypoattenuating lesion in the inferior pole of the left kidney represents a simple cyst. The ureters are normal. The bladder is severely distended. The prostate is enlarged, measuring 5.8 cm in transverse diameter. There is thickening and some mucosal enhancement of the rectum with liquid stool. Similar findings are noted in the descending, transverse, ascending colons and cecum. Trace free fluid is noted in the left and right paracolic gutters, likely reactive in the setting of patient's colitis. No dilated loops of bowel are noted. There is diverticulosis of the descending colon, without evidence of acute diverticulitis. The appendix is identified in its entirety and is nondilated. Normal caliber abdominal aorta, with scattered calcified atherosclerotic plaque. No abdominal or pelvic lymphadenopathy. No abdominal or pelvic free air. Multilevel degenerative disc disease. Mild lumbar spine scoliosis. No lytic or sclerotic osseous lesions noted. 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 Nausea, vomiting, diarrhea, fatigue. Concern for colitis. TECHNIQUE: Transaxial computed tomographic images of the chest, abdomen and pelvis were obtained with intravenous contrast according to the standard protocol after the uneventful administration of 69 mL Opti-Ray 350 intravenous contrast. COMPARISON: Prior CT abdomen pelvis dated 05/01/2024, and CT chest dated 02/12/2024. FINDINGS: Chest: Bilateral unchanged thyroid nodules, the largest of which is in the left lobe of the thyroid and measures 1.7 x 1.0 cm. Another nodule more inferiorly is calcified. No supraclavicular, axillary, mediastinal or hilar lymphadenopathy. The heart is normal in size, with trace pericardial fluid, not significantly changed since most recent chest CT dated 02/12/2024. There is a right internal jugular approach port catheter with tip terminating in the superior cavoatrial junction. A left subclavian pacemaker is noted, with leads in the right atrium and right ventricle. Multivessel coronary artery disease. Calcification is noted of the aortic valve. Normal caliber intrathoracic aorta, with a common origin of the brachiocephalic and left common carotid arteries. Calcification is noted of the aortic arch. Upper limits of normal caliber main pulmonary artery. Old granulomatous disease of the left lung the mayela. Small hiatal hernia. Mild bilateral gynecomastia. The central airways are of normal caliber. No consolidation, pleural effusion or pneumothorax. Mild scarring versus atelectasis in the right lung base, unchanged from 02/12/2024. Interval resolution of the left lower lobe area of groundglass opacity seen on prior chest CT dated 02/12/[address] dated 05/01/2024. Abdomen/Pelvis: The patient is status post left sided partial liver resection. 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 The patient's known hilar cholangiocarcinoma is better evaluated on MRI dated 07/10/2024. The soft tissue encases the hepatic arteries and abuts the right main portal vein. There is mild intrahepatic biliary ductal dilation, most pronounced in left lateral section stable from most recent MRI. The segment 4B liver lesion is slightly increased in size compared to the last CT scan performed 05/01/2024. It currently measures 2.4 cm AP by 1.1 cm transverse, previously 1.4 cm AP by 1.2 cm transverse on the prior CT. This is not well seen on the prior MRI. Left and right biliary ductal stents are noted, which have been exchanged in the interval from the prior CT scan, and are slightly changed in position, with both tips still terminating in the 4th portion of the duodenum. No extrahepatic biliary ductal dilation. The portal vein and superior mesenteric vein are patent. The pancreas is normal, without pancreatic ductal dilation. The spleen is normal, with a calcific focus consistent with granulomatous disease. A small splenule is noted. The adrenal glands are normal. The kidneys enhance symmetrically, without hydronephrosis or nephrolithiasis. There is a left extrarenal pelvis. Small hypoattenuating lesions in the right kidney are too small to characterize. A hypoattenuating lesion in the inferior pole of the left kidney represents a simple cyst. The ureters are normal. The bladder is severely distended. The prostate is enlarged, measuring 5.8 cm in transverse diameter. There is thickening and some mucosal enhancement of the rectum with liquid stool. Similar findings are noted in the descending, transverse, ascending colons and cecum. Trace free fluid is noted in the left and right paracolic gutters, likely reactive in the setting of patient's colitis. No dilated loops of bowel are noted. There is diverticulosis of the descending colon, without evidence of acute diverticulitis. The appendix is identified in its entirety and is nondilated. Normal caliber abdominal aorta, with scattered calcified atherosclerotic plaque. No abdominal or pelvic lymphadenopathy. No abdominal or pelvic free air. Multilevel degenerative disc disease. Mild lumbar spine scoliosis. No lytic or sclerotic osseous lesions noted. IMPRESSION: 1. Proctocolitis with a diarrheal state, likely infectious or inflammatory. 2. 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 3. Slightly increased size of ill-defined hypoattenuating lesion in hepatic segment 4, in close proximity to the previous partial hepatectomy site. This could represent postsurgical change, however given its interval increase in size, recommend attention on follow-up MRI to exclude possible recurrent disease. 4. Significantly distended urinary bladder, with enlarged prostate likely represents chronic bladder outlet obstruction. Consider Stafford decompression. 5. No evidence of metastatic disease in the chest. Dictated by: Danita Myers M.D. The radiology attending physician has personally reviewed this study, and had reviewed and/or edited this written report and agrees with it. Electronically signed by: Cheri Craig M.D. Smith Sawyer MD IM CT PROCEDURES Final R esult * (ABNORMAL) Urinalysis reflex to microscopic and culture Urine (08/22/2024 6:20 AM CDT) Color, ur Yellow Yellow Clarity, ur Clear Clear [facility] Specific gravity, ur 1.020 1.003 - 1.030 [facility] pH, urine 6.0 [facility] Comment: Interpretive Data U rine pH is affected by diet, medications, systemic acid-base disturbances, and renal tubular function. pH may affect urinary stone formation. For example, urine pH below 6.0 may help reduce the tendency for calcium phosphate stones and pH greater than 6.0 may reduce the tendency for uric acid stone formation. Source: [facility] [employer] Current Interpretive Data was last revised on 2017 Protein, ur ql Negative Negative [facility] Glucose, ur ql Negative Negative [facility] Ketones, ur Negative Negative [facility] Bilirubin, ur Negative Negative [facility] Blood, ur Negative Negative [facility] Urobilinogen, ur <2.0 <2.0 mg/dL [facility] Nitrite, ur Negative Negative [facility] Leukocyte esterase, ur Trace(A) Negative [facility] UA reflex comment Reflex to microscopic UA will be performed. [facility] Urine 08/22/2024 6:20 AM CDT 08/22/2024 6:30 AM CDT us Smith Sawyer MD LAB MICROBIOLOGY - GENERA L ORDERABLES Final Result [facility] [place] [address] * (ABNORMAL) Urinalysis, microscopic only (08/22/2024 6:20 AM CDT) WBC, ur 0-5 0 - 5 /HPF RBC, ur 0-2 0 - 2 /HPF [facility] Epithelial cells, squamous, ur 1-5 0 - 5 /HPF [facility] Mucous, ur Present(A) [facility] Amorphous crystals, ur Trace(A) [facility] Culture Reflex Comment Reflex conditions for urine culture (WBC >10) not met. [facility] Urine 08/22/2024 6:20 AM CDT 08/22/2024 6:30 AM CDT us Smith Sawyer MD LAB URINE ORDERABLES Lila eunice Result [facility] [place] [address] * (ABNORMAL) Differential, auto (08/22/2024 2:30 AM CDT) Neutrophil abs 4.00 1.50 - 6.50 K/cumm Imm gran abs 0.04 0.00 - 0.10 K/cumm [facility] Lymphocyte abs 0.13(L) 0.80 - 3.30 K/cumm [facility] Monocyte abs 0.21 0.20 - 0.80 K/cumm [facility] Eosinophil abs 0.01 0.00 - 0.50 K/cumm [facility] Basophil abs 0.01 0.00 - 0.10 K/cumm [facility] Neutrophil pct 90.9 % [facility] Comment: Interpretive Data Percent cell count reference ranges are not reported, since discordance with absolute values may lead to misinterpretation of CBC data. Current Interpretive Data was last revised on 2017. Imm gran pct 0.9 % [facility] Comment: Interpretive Data Percent cell count reference ranges are not reported, since discordance with absolute values may lead to misinterpretation of CBC data. Current Interpretive Data was last revised on 2017. Lymphocyte pct 3.0 % [facility] Comment: Interpretive Data Percent cell count reference ranges are not reported, since discordance with absolute values may lead to misinterpretation of CBC data. Current Interpretive Data was last revised on 2017. Monocyte pct 4.8 % [facility] Comment: Interpretive Data Percent cell count reference ranges are not reported, since discordance with absolute values may lead to misinterpretation of CBC data. Current Interpretive Data was last revised on 2017. Eosinophil pct 0.2 % [facility] Comment: Interpretive Data Percent cell count reference ranges are not reported, since discordance with absolute values may lead to misinterpretation of CBC data. Current Interpretive Data was last revised on 2017. Basophil pct 0.2 % [facility] Comment: Interpretive Data Percent cell count reference ranges are not reported, since discordance with absolute values may lead to misinterpretation of CBC data. Current Interpretive Data was last revised on 2017. Blood 08/22/2024 2:30 AM CDT 08/22/2024 12:54 AM CDT Smith Sawyer MD LAB BLOOD ORDERABLES Lila l Result [facility] [place] [address] * (ABNORMAL) CBC with auto differential (08/22/2024 2:30 AM CDT) WBC 4.40 3.80 - 9.90 K/cumm Hgb 9.0(L) 13.0 - 17.5 g/dL [facility] Hct 25.0(L) 38.9 - 50.3 % [facility] Plt 168 150 - 400 K/cumm [facility] MPV 9.9 9.1 - 12.3 fL [facility] RBC 2.47(L) 4.30 - 5.80 M/cumm [facility] MCV 101.2(H) 81.3 - 96.4 fL [facility] MCH 36.4(H) 27.1 - 33.3 pg [facility] MCHC 36.0(H) 32.3 - 35.7 g/dL [facility] RDW CV 17.2(H) 11.1 - 14.9 % [facility] RDW SD 59.0(H) 35.7 - 48.1 fL [facility] NRBC abs 0.00 0.00 - 0.01 K/cumm [facility] Blood 08/22/2024 2:30 AM CDT 08/22/2024 12:54 AM CDT Smith Sawyer MD LAB BLOOD ORDERABLES Lila l Result Performing Organization Address City/[facility]/ZIP Co de Phone Number [facility] [place] [address] * (ABNORMAL) eGFR (08/22/2024 12:28 AM CDT) eGFR 58(L) >=60 mL/min/1. 73 m2 Comment: Interpretive Data Reference Interval Normal >/= 90 mL/min/1.73m2 Mildly decreased* 60 - 89 mL/min/1.73m2 Mildly to moderately decreased 45 - 59 mL/min/1.73m2 Moderately to severely decreased 30 - 44 mL/min/1.73m2 Severely decreased 15 - 29 mL/min/1.73m2 Kidney Failure < 15 mL/min/1.73m2 *Relative to young adult level Estimated glomerular filtration rate is determined by the 2020 CKD-EPI equation recommended by the National Kidney Foundation (A Unifying Approach to GFR Estimation: Recommendations of the NKF-ASK Task Force on Reassessing the Inclusion of Race in Diagnosing Kidney Disease, JASN 2020). The CKD-EPI equation should not be used for patients with unstable renal function and has not been validated in children and those over 70. Current interpretive data was last reviewed 2021. Blood 08/22/2024 12:2 8 AM CDT 08/22/2024 12:55 AM CDT Smith Sawyer MD LAB BLOOD ORDERABLES Lila l Result Performing Organization Address [facility]/ZIP Co de Phone Number [facility] [place] [address] * Critical Result Callback Hematology (08/22/2024 12:28 AM CDT) Date Notified [id number] Time Notified 132 STAN COREY TestName RUPINDER COREY Called/Read Back Naren PIERCE [facility] Credentials RN [facility] Called By ELIZABETH COREY Blood 08/22/2024 12:2 8 AM CDT 08/22/2024 1:15 AM CDT Result [facility] Smith Sawyer MD LAB BLOOD ORDERABLES Lila l Result Performing Organization Address [facility] Co de Phone Number STAN [facility] [place] [place] [address] * Thyroid Function [place] (08/22/2024 12:28 AM CDT) TSH 0.53 0.30 - 4.20 mcIUnit/mL Blood 08/22/2024 12:2 8 AM CDT 08/22/2024 12:55 AM CDT Smith Sawyer MD LAB BLOOD ORDERABLES Lila l Result Performing Organization Address [facility] [place] [address] * (ABNORMAL) aPTT (08/22/2024 12:28 AM CDT) aPTT 43(H) 28 - 38 sec Comment: Interpretive Data Heparin therapeutic range: 66.0 - 100.0 seconds. Range based on correlation with therapeutic heparin activity range of 0.3 - 0.7 Units/mL. Current interpretive data was last revised on 2023. Blood 08/22/2024 12:2 8 AM CDT 08/22/2024 12:43 AM CDT Result [facility] Smith Sawyer MD LAB BLOOD ORDERABLES Lila l Result Performing Organization Address [facility] Co de Phone Number STAN [facility] [place] [employer] [place] [address] * (ABNORMAL) Protime-INR (08/22/2024 12:28 AM CDT) PT 98.6(H) 9.7 - 13.0 sec INR 8.73(C) 0.90 - 1.20 [facility] Comment: REVIEWED Interpretive data Oral anticoagulant therapeutic ranges: Venous thromboembolism prophylaxis or treatment: 2.0-3.0 CARDIOLOGY Standard range: 2.0-3.0 High-intensity range: 2.5-3.5 Refer to indication-specific guidelines for appropriate target ranges for prosthetic heart valve replacement. Current interpretive data was last revised on 2019. Blood 08/22/2024 12:2 8 AM CDT 08/22/2024 12:43 AM CDT Smith Sawyer MD LAB BLOOD ORDERABLES Lila l Result Performing Organization Address City/[facility]/ZIP Co de Phone Number [facility] [place] [address] * Type and screen (08/22/2024 12:28 AM CDT) Minna, indirect Negative ABO Rh A Positive [facility] Blood 08/22/2024 12:2 8 AM CDT 08/22/2024 1:00 AM CDT Narrative [facility] - 08/22/2024 2:10 AM CDT Has the patient had Daratumumab or Isatuximab in the past 6 months?->Unknown Result [facility] Smith Sawyer MD LAB BLOOD BANK TEST ORDER DEMETRIO Final Result Performing Organization Address City/[facility]/ZIP Co de Phone Number [facility] [place] [address] * (ABNORMAL) Uric acid (08/22/2024 12:28 AM CDT) Uric acid 8.4(H) 3.0 - 8.0 mg/dL Blood 08/22/2024 12:2 8 AM CDT 08/22/2024 12:55 AM CDT Narrative [facility] - 08/22/2024 1:31 AM CDT Saturday and only. Morning draw. . Smiht Sawyer MD LAB BLOOD ORDERABLES Lila l Result Performing Organization Address [facility] Co de Phone Number [facility] [place] [employer] [place] [address] * Phosphorus (08/22/2024 12:28 AM CDT) Phosphorus, pl 2.8 2.3 - 4.5 mg/dL Blood 08/22/2024 12:2 8 AM CDT 08/22/2024 12:55 AM CDT Smith Sawyer MD LAB BLOOD ORDERABLES Lila l Result Performing Organization Address [facility] de Phone Number [facility] [place] [employer] [place] [address] * (ABNORMAL) Lactate dehydrogenase (LD) (08/22/2024 12:28 AM CDT) [facility] Lactate dehydrogenase (LDH) 301(H) 100 - 250 Units/L Blood 08/22/2024 12:2 8 AM CDT 08/22/2024 12:55 AM CDT Narrative [facility] - 08/22/2024 1:31 AM CDT Saturday and only. Morning draw. Smith Sawyer MD LAB BLOOD ORDERABLES Lila l Result Performing Organization Address [facility] Co de Phone Number [facility] [place] [employer] [place] [address] * Vitamin B12 (08/22/2024 12:28 AM CDT) Pathologist [facility] Vitamin B12 760 230 - 1,250 pg/mL Blood 08/22/2024 12:2 8 AM CDT 08/22/2024 12:55 AM CDT Smith Sawyer MD LAB BLOOD ORDERABLES Lila l Result Performing Organization Address City/[facility] Co de Phone Number [facility] [place] [address] * (ABNORMAL) Comprehensive metabolic panel (08/22/2024 12:28 AM CDT) Sodium 138 135 - 145 mmol/L Potassium, pl 3.5 3.3 - 4.9 mmol/L [facility] Chloride 104 97 - 110 mmol/L [facility] CO2 23 22 - 32 mmol/L [facility] Anion gap 11 2 - 15 mmol/L [facility] BUN 40(H) 6 - 25 mg/dL [facility] Creatinine 1.29 0.80 - 1.30 mg/dL [facility] Glucose 154 70 - 199 mg/dL [facility] Comment: Interpretive Data Fasting glucose >/= 126 mg/dl is diagnostic for diabetes. Fasting is defined as no caloric intake for at least 8 hours. Fasting glucose between 100 mg/dl to 125 mg/dl is diagnostic of prediabetes. In a patient with classic symptoms of hyperglycemia or hyperglycemic crisis, a random glucose >/= 200 mg/dl is diagnostic for diabetes. In the absence of unequivocal hyperglycemia, results should be confirmed by repeat testing. The classification and Diagnosis of Diabetes Diabetes Care 202; 46: S19-S40. Current interpretive data was last revised 2022. Calcium 8.2(L) 8.5 - 10.3 mg/dL [facility] Bilirubin, total 0.9 0.1 - 1.2 mg/dL [facility] Protein, pl 5.3(L) 6.5 - 8.5 g/dL [facility] Albumin 3.3(L) 3.5 - 5.0 g/dL [facility] Alk phos 76 40 - 130 Units/L [facility] ALT 15 7 - 55 Units/L [facility] AST 29 10 - 50 Units/L [facility] Blood 08/22/2024 12:2 8 AM CDT 08/22/2024 12:55 AM CDT us Smith Sawyer MD LAB BLOOD ORDERABLES Lila eunice Result [place] [address] * C. difficile testing Stool (08/21/2024 9:37 PM CDT) Pathologist [facility] Result Negative Negative Toxin Result Negative Negative [facility] C. diff result Negative, free toxin Negative, free toxin [facility] C. diff interp Negative for toxigenic Clostridioides (Clostridium) difficile. Analysis was performed using a glutamate dehydrogenase antigen detection assay combined with a C. difficile toxin detection assay. [facility] Stool 08/21/2024 9:37 PM CDT 08/22/2024 1:47 AM CDT Smith Sawyer MD LAB MICROBIOLOGY - GENERA L ORDERABLES Final Result Performing Organization Address [facility] [place] [address] * Cytomegalovirus (CMV) DNA PCR, quantitative Blood (08/21/2024 9:37 PM CDT) [facility] CMV DNA Not Detected [facility] Comment: Interpretive Data: The quantifiable range of this assay is 34 IUnits/mL to 10,000,000 IUnits/mL (1.53 log IUnits/mL to 7.0 log IUnits/mL). Testing was performed by the ELIO [id number] CMV Test ([employer] Testing performed at [facility]. Current interpretive data was last revised on 2020. Blood 08/21/2024 9:37 PM CDT 08/21/2024 10:18 PM CDT Smith Sawyer MD LAB MICROBIOLOGY - GENERA L ORDERABLES Final Result Performing Organization Address [facility] Co de Phone Number [place] [address] [facility] * Norovirus PCR Stool (08/21/2024 9:37 PM CDT) Norovirus GI RNA Not Detected Not Detected [facility] Norovirus GII RNA Not Detected Not Detected [facility] Comment: Interpretive data: Testing performed at the [facility] using the [employer]ig[employer] Xpert Norovirus Assay. This assay uses nucleic acid amplification to detect RNA from norovirus. This test is cleared by the [place] Food and Drug Administration for unformed stool specimens. The performance characteristics for unformed stool specimens have been verified by the performing laboratory. The performance characteristics of rectal swab specimens have also been validated and verified by the performing laboratory. Positive Xpert Norovirus results do not rule out other causes of infectious diarrhea. Assay interference may be observed in the presence of Barium sulfate and Benzalkonium chloride. Mutations or polymorphisms in primer or probe binding regions may affect detection of new or unknown norovirus variants resulting in a false negative result. Results from the Xpert Norovirus Assay should be interpreted in conjunction with other laboratory and clinical data available to the clinician. Current interpretive data was last revised on 2024. Stool 08/21/2024 9:37 PM CDT 08/22/2024 2:20 AM CDT Smith Sawyer MD LAB MICROBIOLOGY - GENERA L ORDERABLES Final Result Performing Organization Address [facility] de Phone Number [facility] [place] [address] [facility] * Cryptosporidium and Giardia antigen assay Stool (08/21/2024 9:37 PM CDT) Pathologist [facility] Giardia Ag Negative Negative Cryptosporidium Ag Negative Negative [facility] Comment: Interpretive data: Testing performed by the [facility] using an immunoassay that detects Cryptosporidium and Giardia antigens in stool specimens. If comprehensive examination for ova and parasites is required, please request Ova and Parasite Examination. Stool 08/21/2024 9:37 PM CDT 08/22/2024 1:47 AM CDT Smith Sawyer MD LAB MICROBIOLOGY - GENERA L ORDERABLES Final Result Performing Organization Address City/State/[facility] Co de Phone Number [place] [address] * Infection Prevention VRE Culture Stool (08/21/2024 9:37 PM CDT) Report Final Report: Negative Stool 08/21/2024 9:37 PM CDT 08/22/2024 6:17 AM CDT Narrative [facility] - 08/24/2024 7:43 AM CDT Surveillance culture for Infection Prevention purposes only; results indicate colonization, not infection requiring treatment. Testing performed by [facility] ([phone]). us Gorge Vaughan MD PhD LAB MICROBIOLOGY - G ENERAL ORDERABLES Final Result Performing Organization Address [facility] de Phone Number [facility] [place] [address] * Stool culture Stool Rectum (08/21/2024 9:37 PM CDT) Direct Specimen Exam Shiga Toxin Testing: Antigen detection assay for Shiga-toxin NEGATIVE for Shiga Toxin 1 and Shiga Toxin 2. Report Final Report: No growth of enteric bacterial pathogens [facility] Stool (Rectum) 08/21/2024 9: 37 PM CDT 08/22/2024 1:47 AM CDT Narrative [facility] - 08/26/2024 2:52 PM CDT Specimen received in a sterile container. Testing performed by [facility] ([phone]). Routine stool cultures include procedures to detect Salmonella, Shigella, Edwardsiella, Aeromonas, Pleisiomonas, Campylobacter, Yersinia, E. coli O157, and Shiga-like toxins. Vibrio is cultured only upon special request. If Vibrio is suspected, please call the laboratory at [phone]. Interpretive data was last updated September 10, 2016. us Smith Sawyer MD LAB MICROBIOLOGY - GENERA L ORDERABLES Final Result Performing Organization Address [facility] Co de Phone Number [facility] [place] [address] * XR Chest 1 View (08/21/2024 4:43 PM CDT) Anatomical Region Laterality Modality Body, Chest N/A Computed Radiogr aphy 08/21/2024 5:09 PM CDT Impressions 08/21/2024 5:09 PM CDT Comparison 07/10/2024. Left subclavian transvenous pacemaker with right atrial and right ventricular leads again seen. Right internal jugular port catheter in place with tip at superior cavoatrial junction. Mild left basilar atelectasis again noted. Lungs otherwise clear without focal consolidation. No pneumothorax or pleural effusion seen. Heart size within normal limits. Electronically signed by: Chu Villanueva M.D. Narrative 08/21/2024 5:09 PM CDT EXAMINATION: 1 view chest radiograph Procedure Note Chu Villanueva MD - 08/21/2024 EXAMINATION: 1 view chest radiograph IMPRESSION: Comparison 07/10/2024. Left subclavian transvenous pacemaker with right atrial and right ventricular leads again seen. Right internal jugular port catheter in place with tip at superior cavoatrial junction. Mild left basilar atelectasis again noted. Lungs otherwise clear without focal consolidation. No pneumothorax or pleural effusion seen. Heart size within normal limits. Electronically signed by: Chu Villanueva M.D. Lisa Tejeda [employer]EL[employer] IMG XR PROCEDURES Final R esult * (ABNORMAL) Respiratory pathogen panel Nasopharyngeal (08/21/2024 4:08 PM CDT) Influenza A RNA Not Detected Not Detected Influenza B RNA Not Detected Not Detected [facility] RSV RNA Not Detected Not Detected [facility] COVID-19 RNA Not Detected Not Detected [facility] Coronavirus 229E RNA Not Detected Not Detected [facility] Coronavirus HKU1 RNA Detected(A) Not Detected [facility] Coronavirus NL63 RNA Not Detected Not Detected [facility] Coronavirus OC43 RNA Not Detected Not Detected [facility] Adenovirus DNA Not Detected Not Detected [facility] Metapneumovirus RNA Not Detected Not Detected [facility] Rhinovirus/Enterov irus RNA Not Detected Not Detected [facility] Parainfluenza 1 RNA Not Detected Not Detected [facility] Parainfluenza 2 RNA Not Detected Not Detected [facility] Parainfluenza 3 RNA Not Detected Not Detected [facility] Parainfluenza 4 RNA Not Detected Not Detected [facility] B. pertussis DNA Not Detected Not Detected [facility] B. parapertussis DNA Not Detected Not Detected [facility] C. pneumoniae DNA Not Detected Not Detected [facility] M. pneumoniae DNA Not Detected Not Detected [facility] Nasopharyngeal 08/21/2024 4: 08 PM CDT 08/21/2024 4:50 PM CDT Narrative [facility] - 08/21/2024 5:58 PM CDT Is the Patient experiencing symptoms consistent with COVID?->Yes Surveillance testing for transplant patient?->No Interpretive Data The [place] FilmArray Respiratory Panel (RP2.1) assay is a multiplexed real-time PCR based nucleic acid test capable of simultaneous qualitative detection and identification of multiple respiratory viral and bacterial nucleic acids, including SARS Coronavirus 2 (the causative agent of COVID-19). The following bacteria, viruses and virus subtypes can be identified using the [employer]Array RP2.1 assay: Bordetella pertussis, Bordetella parapertussis, Chlamydia pneumoniae, Mycoplasma pneumoniae, Adenovirus, SARS Coronavirus 2, seasonal coronaviruses (Coronavirus HKU1, Coronavirus NL63, Coronavirus 229E, and Coronavirus OC43), Influenza A, Influenza A subtype H1, Influenza A subtype H3, Influenza A subtype 2009 H1, Influenza B, Metapneumovirus, Parainfluenza 1, Parainfluenza 2, Parainfluenza 3, Parainfluenza 4, RSV, Rhinovirus/Enterovirus. Due to the genetic similarity between human Rhinovirus and Enterovirus, the FilmArray RP2.1 assay cannot reliably differentiate them. Coronavirus OC43 may cross-react with some isolates of Coronavirus HKU1. A dual positive result may be due to cross-reactivity or may indicate a co- infection. The detection and identification of specific viral and bacterial nucleic acids from individuals exhibiting signs and symptoms of a respiratory infection aids in the diagnosis of respiratory infection if used in conjunction with other clinical and epidemiological information. The results of this test should not be used as the sole basis for diagnosis, treatment, or other management decisions. Negative results in the setting of a respiratory illness may be due to infection with pathogens that are not detected by this test. Positive results do not rule out infection/co-infection with other organisms. The agent(s) detected by the FilmArray RP2.1 may not be the definite cause of disease. Additional testing (lab, imaging, etc.) may be necessary when evaluating a patient with possible respiratory tract infection. The FilmArray RP2.1 assay has FDA clearance for testing of [employer] DEVELOPER swabs. The performance of additional specimen types has been assessed by the performing laboratory. The performance characteristics of this assay have been determined by [facility]. Current interpretive data was last revised on 22. Lisa Tejeda [employer] BI DEVELOPER LAB MICROBIOLOGY - GENERA L ORDERABLES Final Result [facility] [place] [address] * (ABNORMAL) eGFR (08/21/2024 3:52 PM CDT) eGFR 54(L) >=60 mL/min/1. 73 m2 Comment: Interpretive Data Reference Interval Normal >/= 90 mL/min/1.73m2 Mildly decreased* 60 - 89 mL/min/1.73m2 Mildly to moderately decreased 45 - 59 mL/min/1.73m2 Moderately to severely decreased 30 - 44 mL/min/1.73m2 Severely decreased 15 - 29 mL/min/1.73m2 Kidney Failure < 15 mL/min/1.73m2 *Relative to young adult level Estimated glomerular filtration rate is determined by the 2020 CKD-EPI equation recommended by the National Kidney Foundation (A Unifying Approach to GFR Estimation: Recommendations of the NKF-ASK Task Force on Reassessing the Inclusion of Race in Diagnosing Kidney Disease, JASN 2020). The CKD-EPI equation should not be used for patients with unstable renal function and has not been validated in children and those over 70. Current interpretive data was last reviewed 2021. Blood 08/21/2024 3:52 PM CDT 08/21/2024 4:16 PM CDT Lisa Tejeda [employer] BI DEVELOPER LAB BLOOD ORDERABLES Lila euince Result [facility] [place] [address] * (ABNORMAL) Differential, auto (08/21/2024 3:52 PM CDT) Neutrophil abs 4.28 1.50 - 6.50 K/cumm Imm gran abs 0.03 0.00 - 0.10 K/cumm [facility] Lymphocyte abs 0.27(L) 0.80 - 3.30 K/cumm [facility] Monocyte abs 0.58 0.20 - 0.80 K/cumm [facility] Eosinophil abs 0.03 0.00 - 0.50 K/cumm [facility] Basophil abs 0.01 0.00 - 0.10 K/cumm [facility] Neutrophil pct 82.2 % [facility] Comment: Interpretive Data Percent cell count reference ranges are not reported, since discordance with absolute values may lead to misinterpretation of CBC data. Current Interpretive Data was last revised on 2017. Imm gran pct 0.6 % [facility] Comment: Interpretive Data Percent cell count reference ranges are not reported, since discordance with absolute values may lead to misinterpretation of CBC data. Current Interpretive Data was last revised on 2017. Lymphocyte pct 5.2 % [facility] Comment: Interpretive Data Percent cell count reference ranges are not reported, since discordance with absolute values may lead to misinterpretation of CBC data. Current Interpretive Data was last revised on 2017. Monocyte pct 11.2 % [facility] Comment: Interpretive Data Percent cell count reference ranges are not reported, since discordance with absolute values may lead to misinterpretation of CBC data. Current Interpretive Data was last revised on 2017. Eosinophil pct 0.6 % [facility] Comment: Interpretive Data Percent cell count reference ranges are not reported, since discordance with absolute values may lead to misinterpretation of CBC data. Current Interpretive Data was last revised on 2017. Basophil pct 0.2 % [facility] Comment: Interpretive Data Percent cell count reference ranges are not reported, since discordance with absolute values may lead to misinterpretation of CBC data. Current Interpretive Data was last revised on 2017. Blood 08/21/2024 3:52 PM CDT 08/21/2024 4:16 PM CDT us Lisa Tejeda NP LAB BLOOD ORDERABLES Llia dawson Result [facility] [place] [address] * (ABNORMAL) CBC with auto differential (08/21/2024 3:52 PM CDT) Pathologist [facility] WBC 5.20 3.80 - 9.90 K/cumm Hgb 9.7(L) 13.0 - 17.5 g/dL [facility] Hct 26.7(L) 38.9 - 50.3 % [facility] Plt 204 150 - 400 K/cumm [facility] MPV 9.9 9.1 - 12.3 fL [facility] [facility] RBC 2.67(L) 4.30 - 5.80 M/cumm [facility] MCV 100.0(H) 81.3 - 96.4 fL [facility] MCH 36.3(H) 27.1 - 33.3 pg [facility] MCHC 36.3(H) 32.3 - 35.7 g/dL [facility] RDW CV 17.3(H) 11.1 - 14.9 % [facility] RDW SD 58.5(H) 35.7 - 48.1 fL [facility] NRBC abs 0.00 0.00 - 0.01 K/cumm [facility] Blood 08/21/2024 3:52 PM CDT 08/21/2024 4:16 PM CDT us Lisa Tejeda SAP BI DEVELOPER LAB BLOOD ORDERABLES Lila l Result Performing Organization Address City/[facility]/ZIP Co de Phone Number [facility] [place] [address] * CRP (acute phase) (08/21/2024 3:52 PM CDT) Pathologist [facility] CRP 3.7 <=10.0 mg/L Blood 08/21/2024 3:52 PM CDT 08/21/2024 4:16 PM CDT us Gorge Vaughan MD PhD LAB BLOOD ORDERABLES Final Result Performing Organization Address [facility] de Phone Number [facility] [place] [address] * (ABNORMAL) Comprehensive metabolic panel (08/21/2024 3:52 PM CDT) [facility] Sodium 136 135 - 145 mmol/L Potassium, pl 3.3 3.3 - 4.9 mmol/L [facility] Chloride 100 97 - 110 mmol/L [facility] CO2 25 22 - 32 mmol/L [facility] Anion gap 11 2 - 15 mmol/L [facility] BUN 40(H) 6 - 25 mg/dL [facility] Creatinine 1.37(H) 0.80 - 1.30 mg/dL [facility] Glucose 123 70 - 199 mg/dL [facility] Comment: Interpretive Data Fasting glucose >/= 126 mg/dl is diagnostic for diabetes. Fasting is defined as no caloric intake for at least 8 hours. Fasting glucose between 100 mg/dl to 125 mg/dl is diagnostic of prediabetes. In a patient with classic symptoms of hyperglycemia or hyperglycemic crisis, a random glucose >/= 200 mg/dl is diagnostic for diabetes. In the absence of unequivocal hyperglycemia, results should be confirmed by repeat testing. The classification and Diagnosis of Diabetes Diabetes Care 202; 46: S19-S40. Current interpretive data was last revised 2022. Calcium 8.8 8.5 - 10.3 mg/dL [facility] Bilirubin, total 1.1 0.1 - 1.2 mg/dL [facility] Protein, pl 5.7(L) 6.5 - 8.5 g/dL [facility] Albumin 3.9 3.5 - 5.0 g/dL [facility] Alk phos 88 40 - 130 Units/L [facility] ALT 16 7 - 55 Units/L [facility] AST 26 10 - 50 Units/L [facility] Blood 08/21/2024 3:52 PM CDT 08/21/2024 4:16 PM CDT us Lisa Tejeda SAP BI DEVELOPER LAB BLOOD ORDERABLES Lila l Result Performing Organization Address City/[facility]/ZIP Co de Phone Number [facility] [place] [address] * POC Blood Gas and Chemistries, Arterial - (08/21/2024 3:50 PM CDT) Lactate POC 2.0 0.7 - 2.0 mmol/L Blood 08/21/2024 3:50 PM CDT 08/21/2024 3:50 PM CDT us Gorge Vaughan MD PhD LAB POCT ORDERABLES - DEVICE Final Result Performing Organization Address City/[facility]/ZIP Co de Phone Number [facility] [place] [address] * Critical Result Callback Hematology (08/21/2024 3:45 PM CDT) Date Notified [id number] Time Notified [id number] [facility] TestName INR [facility] Called/Read Back Luis PIERCE [facility] Credentials RN [facility] Called By PD [facility] Blood 08/21/2024 3:45 PM CDT 08/21/2024 4:06 PM CDT Lisa Tejeda NP LAB BLOOD ORDERABLES Lila l Result Performing Organization Address City/[facility]/ZIP Co de Phone Number STAN [facility] Department [place] [address] * Blood culture Blood Peripheral (08/21/2024 3:45 PM CDT) Report Final Report: No growth Blood (Peripheral) 08/21/2024 3:45 PM CDT 08/21/2024 4:33 PM CDT Narrative [facility] - 08/26/2024 7:00 AM CDT 1. Blood cultures are incubated for 4 days on a continuously monitored blood culture system. The first report of a negative culture is issued within 24 hours of receipt of the specimen in the laboratory. 2. Positive culture results are reported as soon as they are detected. 3. The most important factor for detection of microbes in the setting of bloodstream infection is the volume of blood submitted for culture. Failure to collect an optimal blood volume can result in false negative blood cultures. 4. For pediatric patients, the recommended blood volume to collect follows a weight based strategy. See the electronic test catalog for collection instructions. 5. For positive blood cultures, a rapid molecular test may be performed for organism identification using the elio ePlex blood culture identification panel for gram positive (BCID-GP) and gram negative (BCID-GN) organisms. This nucleic acid amplification test detects microbial DNA in positive blood culture broth. This assay has been cleared by the [place] Food and Drug Administration and its performance characteristics have been verified by the [facility]. For questions about this culture, contact the Microbiology Laboratory at [phone]. Interpretive data was last revised on 24. Lisa Tejeda NP LAB MICROBIOLOGY - GENERA L ORDERABLES Final Result Performing Organization Address City/[facility]/ZIP Co de Phone Number [facility] Department [place] [address] * Blood culture Blood Peripheral (08/21/2024 3:45 PM CDT) Report Final Report: No growth Blood (Peripheral) 08/21/2024 3:45 PM CDT 08/21/2024 4:33 PM CDT Amy COREY - 08/26/2024 7:00 AM CDT 1. Blood cultures are incubated for 4 days on a continuously monitored blood culture system. The first report of a negative culture is issued within 24 hours of receipt of the specimen in the laboratory. 2. Positive culture results are reported as soon as they are detected. 3. The most important factor for detection of microbes in the setting of bloodstream infection is the volume of blood submitted for culture. Failure to collect an optimal blood volume can result in false negative blood cultures. 4. For pediatric patients, the recommended blood volume to collect follows a weight based strategy. See the electronic test catalog for collection instructions. 5. For positive blood cultures, a rapid molecular test may be performed for organism identification using the elio ePlex blood culture identification panel for gram positive (BCID-GP) and gram negative (BCID-GN) organisms. This nucleic acid amplification test detects microbial DNA in positive blood culture broth. This assay has been cleared by the [place] Food and Drug Administration and its performance characteristics have been verified by the [facility]. For questions about this culture, contact the Microbiology Laboratory at [phone]. Interpretive data was last revised on 24. Lisa Tejeda NP LAB MICROBIOLOGY - GENERA L ORDERABLES Final Result [facility]AN [facility] [place] [address] * (ABNORMAL) aPTT (08/21/2024 3:45 PM CDT) aPTT 46(H) 28 - 38 sec Comment: Interpretive Data Heparin therapeutic range: 66.0 - 100.0 seconds. Range based on correlation with therapeutic heparin activity range of 0.3 - 0.7 Units/mL. Current interpretive data was last revised on 2023. Blood 08/21/2024 3:45 PM CDT 08/21/2024 4:06 PM CDT Lisa Tejeda NP LAB BLOOD ORDERABLES Lila l Result Performing Organization Address [facility] Co de Phone Number [facility] [place] [address] * (ABNORMAL) Thrombin time (08/21/2024 3:45 PM CDT) Thrombin time 15.2(H) 10.0 - 15.0 sec Blood 08/21/2024 3:45 PM CDT 08/21/2024 4:06 PM CDT Lisa Tejeda NP LAB BLOOD ORDERABLES Lila l Result Performing Organization Address [facility] de Phone Number [facility] [place] [address] * (ABNORMAL) Protime-INR (08/21/2024 3:45 PM CDT) PT >100.0(H) 9.7 - 13.0 sec INR >9.00(C) 0.90 - 1.20 [facility] Comment: No clot detected in sample. Verified by reflex testing. Interpretive data Oral anticoagulant therapeutic ranges: Venous thromboembolism prophylaxis or treatment: 2.0-3.0 CARDIOLOGY Standard range: 2.0-3.0 High-intensity range: 2.5-3.5 Refer to indication-specific guidelines for appropriate target ranges for prosthetic heart valve replacement. Current interpretive data was last revised on 2019. Blood 08/21/2024 3:45 PM CDT 08/21/2024 4:06 PM CDT Lisa Tejeda NP LAB BLOOD ORDERABLES Lila l Result Performing Organization Address [facility] Co de Phone Number [facility] [place] [address] * Urinalysis reflex to microscopic (08/20/2024 1:27 AM CDT) Color, ur Straw Yellow Clarity, ur Clear Clear [facility] Specific gravity, ur 1.022 1.003 - 1.030 [facility] pH, urine 6.0 [facility] Comment: Interpretive Data U rine pH is affected by diet, medications, systemic acid-base disturbances, and renal tubular function. pH may affect urinary stone formation. For example, urine pH below 6.0 may help reduce the tendency for calcium phosphate stones and pH greater than 6.0 may reduce the tendency for uric acid stone formation. Source: [facility] Current Interpretive Data was last revised on 2017 Protein, ur ql Negative Negative [facility] Glucose, ur ql Negative Negative [facility] Ketones, ur Negative Negative [facility] Bilirubin, ur Negative Negative [facility] Blood, ur Negative Negative [facility] Urobilinogen, ur <2.0 <2.0 mg/dL [facility] Nitrite, ur Negative Negative [facility] Leukocyte esterase, ur Negative Negative [facility] UA reflex comment Reflex conditions for microscopic UA not met. [facility] Urine 08/20/2024 1:27 AM CDT 08/20/2024 1:48 AM CDT us Leela Sandhu SAP BI DEVELOPER LAB URINE ORDERABLES Lila dawson Result [facility] [place] [address] * Urine culture Urine, clean voided (08/20/2024 1:27 AM CDT) Report Final Report: No growth Urine, clean voided 08/20/2024 1:27 AM CDT 08/20/2024 11:58 AM CDT Narrative [facility] - 08/21/2024 1:10 PM CDT Indications for Culture:->Other (specify) Other Indication:->immunocompromised Testing performed by [facility] ([phone]) us Leela Sandhu NP LAB MICROBIOLOGY - GENERA L ORDERABLES Final Result Performing Organization Address [facility] Co de Phone Number [facility] [place] [address] * (ABNORMAL) POC Blood Gas and Chemistries, Arterial - (08/19/2024 9:48 PM CDT) Pathologist [facility] Lactate POC 2.1(H) 0.7 - 2.0 mmol/L Blood 08/19/2024 9:48 PM CDT 08/19/2024 9:48 PM CDT Gilberto Martinez MD LAB POCT ORDERABLES - DEVICE Final Result Performing Organization Address [facility] Co de Phone Number [facility] [place] [address] * ECG 12 lead (08/19/2024 9:34 PM CDT) [facility] Ventricular Rate EKG/Min 60 BPM [facility] Atrial Rate 60 BPM [facility] PA-Interval (MSEC) 210 ms [facility] QRS-Interval (MSEC) 98 ms [facility] QT-Interval (MSEC) 462 ms [facility] QTc 462 ms [facility] P [place] 15 degrees [facility] R [place] -29 degrees [facility] T [place] 155 degrees [facility] Diagnosis Atrial-paced rhythm with prolonged AV conduction ST & T wave abnormality, consider lateral ischemia Abnormal ECG When compared with ECG of 08-JUN-2024 07:48, No significant change was found Confirmed by RL BHATT M.D ([id number]) on 08/20/2024 5:01:40 PM [facility] 08/19/2024 9:34 PM CDT 08/20/2024 5:01 PM CDT us Leela Sandhu SAP BI DEVELOPER ECG ORDERABLES Final Res ult [facility] * eGFR (08/19/2024 9:03 PM CDT) eGFR 65 >=60 mL/min/1. 73 m2 Comment: Interpretive Data Reference Interval Normal >/= 90 mL/min/1.73m2 Mildly decreased* 60 - 89 mL/min/1.73m2 Mildly to moderately decreased 45 - 59 mL/min/1.73m2 Moderately to severely decreased 30 - 44 mL/min/1.73m2 Severely decreased 15 - 29 mL/min/1.73m2 Kidney Failure < 15 mL/min/1.73m2 *Relative to young adult level Estimated glomerular filtration rate is determined by the 2020 CKD-EPI equation recommended by the National Kidney Foundation (A Unifying Approach to GFR Estimation: Recommendations of the NKF-ASK Task Force on Reassessing the Inclusion of Race in Diagnosing Kidney Disease, JASN 2020). The CKD-EPI equation should not be used for patients with unstable renal function and has not been validated in children and those over 70. Current interpretive data was last reviewed 2021. Blood 08/19/2024 9:03 PM CDT 08/19/2024 9:56 PM CDT us Leela Sandhu SAP BI DEVELOPER LAB BLOOD ORDERABLES Lila l Result Performing Organization Address City/[facility]/ZIP Co de Phone Number [facility] [place] [address] * (ABNORMAL) Differential, auto (08/19/2024 9:03 PM CDT) Neutrophil abs 6.02 1.50 - 6.50 K/cumm Imm gran abs 0.04 0.00 - 0.10 K/cumm [facility] Lymphocyte abs 0.23(L) 0.80 - 3.30 K/cumm [facility] Monocyte abs 0.48 0.20 - 0.80 K/cumm [facility] Eosinophil abs 0.01 0.00 - 0.50 K/cumm [facility] Basophil abs 0.00 0.00 - 0.10 K/cumm [facility] Neutrophil pct 88.8 % [facility] Comment: Interpretive Data Percent cell count reference ranges are not reported, since discordance with absolute values may lead to misinterpretation of CBC data. Current Interpretive Data was last revised on 2017. Imm gran pct 0.6 % [facility] Comment: Interpretive Data Percent cell count reference ranges are not reported, since discordance with absolute values may lead to misinterpretation of CBC data. Current Interpretive Data was last revised on 2017. Lymphocyte pct 3.4 % [facility] Comment: Interpretive Data Percent cell count reference ranges are not reported, since discordance with absolute values may lead to misinterpretation of CBC data. Current Interpretive Data was last revised on 2017. Monocyte pct 7.1 % [facility] Comment: Interpretive Data Percent cell count reference ranges are not reported, since discordance with absolute values may lead to misinterpretation of CBC data. Current Interpretive Data was last revised on 2017. Eosinophil pct 0.1 % [facility] Comment: Interpretive Data Percent cell count reference ranges are not reported, since discordance with absolute values may lead to misinterpretation of CBC data. Current Interpretive Data was last revised on 2017. Basophil pct 0.0 % [facility] Comment: Interpretive Data Percent cell count reference ranges are not reported, since discordance with absolute values may lead to misinterpretation of CBC data. Current Interpretive Data was last revised on 2017. Blood 08/19/2024 9:03 PM CDT 08/19/2024 9:56 PM CDT us Leela Sandhu SAP BI DEVELOPER LAB BLOOD ORDERABLES Lila dawson Result [facility] [place] [address] * Respiratory pathogen panel Nasopharyngeal (08/19/2024 9:03 PM CDT) Influenza A RNA Not Detected Not Detected Influenza B RNA Not Detected Not Detected [facility] RSV RNA Not Detected Not Detected [facility] COVID-19 RNA Not Detected Not Detected [facility] Coronavirus 229E RNA Not Detected Not Detected [facility] Coronavirus HKU1 RNA Not Detected Not Detected [facility] Coronavirus NL63 RNA Not Detected Not Detected [facility] Coronavirus OC43 RNA Not Detected Not Detected [facility] Adenovirus DNA Not Detected Not Detected [facility] Metapneumovirus RNA Not Detected Not Detected [facility] Rhinovirus/Enterov irus RNA Not Detected Not Detected [facility] Parainfluenza 1 RNA Not Detected Not Detected [facility] Parainfluenza 2 RNA Not Detected Not Detected [facility] Parainfluenza 3 RNA Not Detected Not Detected [facility] Parainfluenza 4 RNA Not Detected Not Detected [facility] B. pertussis DNA Not Detected Not Detected [facility] B. parapertussis DNA Not Detected Not Detected [facility] C. pneumoniae DNA Not Detected Not Detected [facility] M. pneumoniae DNA Not Detected Not Detected [facility] Nasopharyngeal 08/19/2024 9: 03 PM CDT 08/19/2024 10:21 PM CDT Narrative [facility] - 08/19/2024 11:23 PM CDT Is the Patient experiencing symptoms consistent with COVID?->No Surveillance testing for transplant patient?->No Interpretive Data The [place] FilmArray Respiratory Panel (RP2.1) assay is a multiplexed real-time PCR based nucleic acid test capable of simultaneous qualitative detection and identification of multiple respiratory viral and bacterial nucleic acids, including SARS Coronavirus 2 (the causative agent of COVID-19). The following bacteria, viruses and virus subtypes can be identified using the FilmArray RP2.1 assay: Bordetella pertussis, Bordetella parapertussis, Chlamydia pneumoniae, Mycoplasma pneumoniae, Adenovirus, SARS Coronavirus 2, seasonal coronaviruses (Coronavirus HKU1, Coronavirus NL63, Coronavirus 229E, and Coronavirus OC43), Influenza A, Influenza A subtype H1, Influenza A subtype H3, Influenza A subtype 2009 H1, Influenza B, Metapneumovirus, Parainfluenza 1, Parainfluenza 2, Parainfluenza 3, Parainfluenza 4, RSV, Rhinovirus/Enterovirus. Due to the genetic similarity between human Rhinovirus and Enterovirus, the FilmArray RP2.1 assay cannot reliably differentiate them. Coronavirus OC43 may cross-react with some isolates of Coronavirus HKU1. A dual positive result may be due to cross-reactivity or may indicate a co- infection. The detection and identification of specific viral and bacterial nucleic acids from individuals exhibiting signs and symptoms of a respiratory infection aids in the diagnosis of respiratory infection if used in conjunction with other clinical and epidemiological information. The results of this test should not be used as the sole basis for diagnosis, treatment, or other management decisions. Negative results in the setting of a respiratory illness may be due to infection with pathogens that are not detected by this test. Positive results do not rule out infection/co-infection with other organisms. The agent(s) detected by the FilmArray RP2.1 may not be the definite cause of disease. Additional testing (lab, imaging, etc.) may be necessary when evaluating a patient with possible respiratory tract infection. The FilmArray RP2.1 assay has FDA clearance for testing of SAP BI DEVELOPER swabs. The performance of additional specimen types has been assessed by the performing laboratory. The performance characteristics of this assay have been determined by [facility] Infectious Disease [facility]. Current interpretive data was last revised on 22. Leela Sandhu SAP BI DEVELOPER LAB MICROBIOLOGY - GENERA L ORDERABLES Final Result [facility] [place] [address] * (ABNORMAL) CBC with auto differential (08/19/2024 9:03 PM CDT) [facility] WBC 6.78 3.80 - 9.90 K/cumm Hgb 10.2(L) 13.0 - 17.5 g/dL [facility] Hct 28.4(L) 38.9 - 50.3 % [facility] Plt 193 150 - 400 K/cumm [facility] MPV 10.1 9.1 - 12.3 fL [facility] RBC 2.78(L) 4.30 - 5.80 M/cumm [facility] MCV 102.2(H) 81.3 - 96.4 fL [facility] MCH 36.7(H) 27.1 - 33.3 pg [facility] MCHC 35.9(H) 32.3 - 35.7 g/dL [facility] RDW CV 17.2(H) 11.1 - 14.9 % [facility] RDW SD 59.2(H) 35.7 - 48.1 fL [facility] NRBC abs 0.00 0.00 - 0.01 K/cumm [facility] Blood 08/19/2024 9:03 PM CDT 08/19/2024 9:56 PM CDT us Leela Sandhu NP LAB BLOOD ORDERABLES Lila l Result Performing Organization Address City/[facility] Co de Phone Number [facility] [place] [address] * Phosphorus (08/19/2024 9:03 PM CDT) Phosphorus, pl 3.1 2.3 - 4.5 mg/dL Blood 08/19/2024 9:03 PM CDT 08/19/2024 9:56 PM CDT us Gilberto Martinez MD LAB BLOOD ORDERABLES Final Re sult Performing Organization Address [facility] Co de Phone Number [facility] [place] [address] * Magnesium (08/19/2024 9:03 PM CDT) Magnesium 1.8 1.4 - 2.5 mg/dL Blood 08/19/2024 9:03 PM CDT 08/19/2024 9:56 PM CDT us Gilberto Martinez MD LAB BLOOD ORDERABLES Final Re sult Performing Organization Address City/[facility] Co de Phone Number [facility] [place] [address] * Lipase (08/19/2024 9:03 PM CDT) Pathologist [facility] Lipase 42 10 - 99 Units/L Blood 08/19/2024 9:03 PM CDT 08/19/2024 9:56 PM CDT us Leela Sandhu SAP BI DEVELOPER LAB BLOOD ORDERABLES Lila l Result Performing Organization Address City/[facility]/[place] [address] * (ABNORMAL) Lactate dehydrogenase (LD) (08/19/2024 9:03 PM CDT) [facility] Lactate dehydrogenase (LDH) 434(H) 100 - 250 Units/L Blood 08/19/2024 9:03 PM CDT 08/19/2024 9:56 PM CDT us Leela Sandhu SAP BI DEVELOPER LAB BLOOD ORDERABLES Lila l Result Performing Organization Address [facility] [place] [address] * Amylase (08/19/2024 9:03 PM CDT) Pathologist [facility] Amylase 92 30 - 99 Units/L Blood 08/19/2024 9:03 PM CDT 08/19/2024 9:56 PM CDT Leela Sandhu SAP BI DEVELOPER LAB BLOOD ORDERABLES Lila l Result Performing Organization Address [facility] [place] [address] * (ABNORMAL) Comprehensive metabolic panel (08/19/2024 9:03 PM CDT) Pathologist [facility] Sodium 133(L) 135 - 145 mmol/L Potassium, pl 3.9 3.3 - 4.9 mmol/L [facility] Chloride 97 97 - 110 mmol/L [facility] CO2 24 22 - 32 mmol/L [facility] Anion gap 12 2 - 15 mmol/L [facility] BUN 44(H) 6 - 25 mg/dL [facility] Creatinine 1.17 0.80 - 1.30 mg/dL [facility] Glucose 139 70 - 199 mg/dL [facility] Comment: Interpretive Data Fasting glucose >/= 126 mg/dl is diagnostic for diabetes. Fasting is defined as no caloric intake for at least 8 hours. Fasting glucose between 100 mg/dl to 125 mg/dl is diagnostic of prediabetes. In a patient with classic symptoms of hyperglycemia or hyperglycemic crisis, a random glucose >/= 200 mg/dl is diagnostic for diabetes. In the absence of unequivocal hyperglycemia, results should be confirmed by repeat testing. The classification and Diagnosis of Diabetes Diabetes Care 202; 46: S19-S40. Current interpretive data was last revised 2022. Calcium 8.9 8.5 - 10.3 mg/dL [facility] Bilirubin, total 1.2 0.1 - 1.2 mg/dL [facility] Protein, pl 6.2(L) 6.5 - 8.5 g/dL [facility] Albumin 3.8 3.5 - 5.0 g/dL [facility] Alk phos 91 40 - 130 Units/L [facility] ALT 21 7 - 55 Units/L [facility] AST 32 10 - 50 Units/L [facility] Blood 08/19/2024 9:03 PM CDT 08/19/2024 9:56 PM CDT us Leela Sandhu SAP BI DEVELOPER LAB BLOOD ORDERABLES Lila eunice Result [facility] [place] [address] * DEVICE CHECK - REMOTE (08/17/2024 10:56 AM CDT) Anatomical Region Laterality Modality Other Narrative 08/26/2024 12:45 PM CDT Table formatting from the original result was not included. PM CHECK (REMOTE) Patient ID: Sulma Bazan is a 74 y.o. male This patient received a Whipple Pacemaker. They had a routine remote transmission on 08/17/2024. Device implant indications: SSS Interrogation of the patient's device demonstrates the following: Presenting EGM: A paced V sense @ 66 bpm Original Device Settings Right Atrium Right Ventricle Sensitivity (mV) Auto mV Auto mV Pacing Outputs 1.375 V @ 0.4 ms 0.625 V @ 0.4 ms Testing Measurements Right Atrium Right Ventricle Sensitivity (mV) 4.9 mV 10.5 mV Impedence (Ohms) 410 ohms 630 ohms Pace Threshold 0.375 V @ 0.4 ms 0.375 V @ 0.4 ms Pacing % 93 % 1.8 % Battery Status: 7.6 years to JC Episodes last 90 days/Comments: AF [place] <1 %, longest duration 1 minute 54 seconds. No new ventricular events . NORMAL DEVICE FUNCTION PROGRAMMED MEDICATIONS: Anti-coagulant(s): Coumadin Anti-arrhythmic(s): Norvasc 5 mg daily, sotalol 80 mg twice a day PLAN: 1) Whipple Pacemaker evaluation 2) Whipple remote transmission scheduled in 3 months. 3) Programming appropriate for device measurements Karolyn Escoto RN Zane Richey III, MD CV CARDIAC SERVICES PROCEDURES Final Result * (ABNORMAL) Protime-INR (08/17/2024 10:34 AM CDT) INR 2.8(H) [facility] Comment: Reference Range 0.9-1.1 Moderate-intensity Warfarin Therapy 2.0-3.0 Higher-intensity Warfarin Therapy 3.0-4.0 PT 27.6(H) 9.0 - 11.5 sec [facility] [facility] Comment: For additional information, please refer to http://education.Wedding Reality/faq/DTV698 (This link is being provided for informational/ educational purposes only.) Blood 08/17/2024 10:3 4 AM CDT 08/17/2024 10:34 AM CDT Narrative [facility] - 08/17/2024 6:58 PM CDT FASTING:NO FASTING: NO us Chris Hart MD LAB BLOOD ORDERABLES Final Result Performing Organization Address City/[facility] Co de Phone Number [place] [address] [place] [address] * FL ERCP Biliary Duct (08/07/2024 3:03 PM CDT) Narrative [id number] - 08/07/2024 3:03 PM CDT The images from this study are not interpreted by Radiology. Please refer to the physician's procedure / OR operative note. us Chris Holcomb MD IMG FLUOROSCOPY PROCEDURES Final Result Performing Organization Address [facility] Co de Phone Number [email or web address] * ERCP (08/07/2024 11:21 AM CDT) Anatomical Region Laterality Modality Other Narrative Procedure Note Chris Holcomb MD - 08/07/2024 11:21 AM CDT GI ENDOSCOPY [facility] Patient Name: Sulma Bazan Procedure Date: 08/07/2024 11:21 AM Date of : 1950 Admit Type: Outpatient Age: 74 Gender: Male Attending MD: Chris Holcomb M.D. 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 Providers: Chris Holcomb M.D., Sherry Alberts M.D. Medicines: Monitored Anesthesia Care, Cipro 400 mg IV Complications: No immediate complications. Estimated Blood Loss: Estimated blood loss was minimal. Procedure: Pre-Anesthesia Assessment: - The risks and benefits of the procedure and the sedation options and risks were discussed with the patient. All questions were answered and informed consent was obtained. The benefits, risks, and alternatives to theprocedure and sedation were discussed and informed consentwas obtained. The ERCP was accomplished without difficulty. The patient tolerated the procedurewell. The Duodenoscope was introduced through the mouth,and used to inject contrast into and used to inject contrast into the bile duct. Findings: Two biliary stents were visible on the hockey scout film. The esophagus was successfully intubated under direct vision. The scope was advanced to the major papilla in the descending duodenum without detailed examination of the pharynx, larynx and associated structures, andupper GI tract. The upper GI tract was grossly normal. Two plastic stents originating in the biliary tree were emerging from the major papilla.A biliary sphincterotomy had been performed. The sphincterotomyappeared open. Two stents were removed from the biliary tree using a snare. A 0.025 inch x 450 cm angled Visiglide wire was passed into the biliary tree. The 11.5 mm balloon was passed over the guidewire and the bile duct was then deeply cannulated. Contrast was injected. I personally interpreted the bile duct images. There was brisk flow of contrast through the ducts. Image quality was excellent. Contrast extended tothe hepatic ducts. The left and right hepatic ducts with secondary or tertiary branches of the intrahepatic ducts (Bismuth IV) contained a single moderate stenosis 15 mm in length. The left and right hepatic ducts and all intrahepatic branches were mildly dilated and dilated upstream from the stenosis. The biliary tree was swept with an 11.5mm balloon starting at the bifurcation. Sludge was swept from the duct.One 7 Fr by 10 cm transpapillary plastic stent with a full externalpigtail and a full internal pigtail was placed into the left hepatic duct.Bile flowed through the stent. The stent was in good position. One 7 Fr by10 cm transpapillary plastic stent with a full external pigtail and afull internal pigtail was placed into the right hepatic duct. Bile flowed through the stent. The stent was in good position. The endoscope was withdrawn from the patient. Impression: - Two stents from the biliary tree were seen in the major papilla and were removed. - Prior biliary sphincterotomy appeared open. 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 - The biliary tree was swept and sludge wasfound. - One 7 Fr by 10 cm double pigtail plastic stentwas placed into the left hepatic duct. - One 7 Fr by 10 cm double pigtail plastic stentwas placed into the right hepatic duct. Recommendation: - Observe clinical course status post today's intervention. - Watch for complications including bleeding, perforation, infection, and pancreatitis. - Liquid diet today, then resume regular diettomorrow. - Resume home medications. - Resume warfarin tomorrow. Follow up with primary care physician for INR checks and doseadjustment. - Take oral ciprofloxacin 500 mg twice daily for 3 days (e-prescribed). - Repeat ERCP in 2 months for stent exchange. - Follow-up with your referring provider (indicatedin the report above) as indicated. - During your procedure a plastic stent was placed. The stent allows to keep the area open and allowfor fluid drainage. The stent that was placed is meantto be used temporarily and requires close follow up to replace or remove. If follow up does not occur in a timely manner, it may result in complications suchas: severe abdominal pain, yellowing of the skin (jaundice), infection, pancreatitis, or otherserious complications. - The outlined recommendations within this reportwere discussed with you following the procedure Attending Participation: I was present and participated during the entire procedure, including non-martinez portions. Electronically signed by Chris Holcomb M.D. Chris Holcomb M.D. 08/07/2024 1:34:49 PM . Number of Addenda: 0 Note Initiated On: 08/07/2024 11:21 AM us Chris Holcomb MD ENDOSCOPY PROCEDURES Final Result * eGFR (08/03/2024 11:36 AM CDT) eGFR 64 >=60 mL/min/1. 73 m2 Comment: Interpretive Data Reference Interval Normal >/= 90 mL/min/1.73m2 Mildly decreased* 60 - 89 mL/min/1.73m2 Mildly to moderately decreased 45 - 59 mL/min/1.73m2 Moderately to severely decreased 30 - 44 mL/min/1.73m2 Severely decreased 15 - 29 mL/min/1.73m2 Kidney Failure < 15 mL/min/1.73m2 *Relative to young adult level Estimated glomerular filtration rate is determined by the 2020 CKD-EPI equation recommended by the National Kidney Foundation (A Unifying Approach to GFR Estimation: Recommendations of the NKF-ASK Task Force on Reassessing the Inclusion of Race in Diagnosing Kidney Disease, JASN 2020). The CKD-EPI equation should not be used for patients with unstable renal function and has not been validated in children and those over 70. Current interpretive data was last reviewed 2021. Blood 08/03/2024 11:3 6 AM CDT 08/03/2024 11:54 AM CDT us Gorge Vaughan MD PhD LAB BLOOD ORDERABLES Final Result [facility] [place] [address] * (ABNORMAL) Differential, auto (08/03/2024 11:36 AM CDT) Neutrophil abs 3.4 1.5 - 6.5 K/cumm Imm gran abs 0.0 0.0 - 0.1 K/cumm [facility] Lymphocyte abs 0.4(L) 0.8 - 3.3 K/cumm [facility] Monocyte abs 0.9(H) 0.2 - 0.8 K/cumm [facility] Eosinophil abs 0.1 0.0 - 0.5 K/cumm [facility] Basophil abs 0.0 0.0 - 0.1 K/cumm [facility] Neutrophil pct 69.7 % [facility] Comment: Interpretive Data Percent cell count reference ranges are not reported, since discordance with absolute values may lead to misinterpretation of CBC data. Current Interpretive Data was last revised on 2017. Imm gran pct 0.8 % [facility] Comment: Interpretive Data Percent cell count reference ranges are not reported, since discordance with absolute values may lead to misinterpretation of CBC data. Current Interpretive Data was last revised on 2017. Lymphocyte pct 9.1 % [facility] Comment: Interpretive Data Percent cell count reference ranges are not reported, since discordance with absolute values may lead to misinterpretation of CBC data. Current Interpretive Data was last revised on 2017. Monocyte pct 17.9 % [facility] Comment: Interpretive Data Percent cell count reference ranges are not reported, since discordance with absolute values may lead to misinterpretation of CBC data. Current Interpretive Data was last revised on 2017. Eosinophil pct 2.1 % [facility] Comment: Interpretive Data Percent cell count reference ranges are not reported, since discordance with absolute values may lead to misinterpretation of CBC data. Current Interpretive Data was last revised on 2017. Basophil pct 0.4 % [facility] Comment: Interpretive Data Percent cell count reference ranges are not reported, since discordance with absolute values may lead to misinterpretation of CBC data. Current Interpretive Data was last revised on 2017. Blood 08/03/2024 11:3 6 AM CDT 08/03/2024 11:54 AM CDT us Gorge Vaughan MD PhD LAB BLOOD ORDERABLES Final Result [facility] [place] [address] * (ABNORMAL) CBC with auto differential (08/03/2024 11:36 AM CDT) WBC 4.9 3.8 - 9.9 K/cumm Hgb 11.0(L) 13.0 - 17.5 g/dL [facility] Hct 30.3(L) 38.9 - 50.3 % [facility] Plt 172 150 - 400 K/cumm [facility] MPV 9.7 9.1 - 12.3 fL [facility] RBC 3.09(L) 4.30 - 5.80 M/cumm [facility] MCV 98.1(H) 81.3 - 96.4 fL [facility] MCH 35.6(H) 27.1 - 33.3 pg [facility] MCHC 36.3(H) 32.3 - 35.7 g/dL [facility] RDW CV 16.7(H) 11.1 - 14.9 % [facility] RDW SD 48.5(H) 35.7 - 48.1 fL [facility] NRBC abs 0.03(H) 0.00 - 0.01 K/cumm [facility] Blood 08/03/2024 11:3 6 AM CDT 08/03/2024 11:54 AM CDT Gorge Vaughan MD PhD LAB BLOOD ORDERABLES Final Result [facility] [place] [address] * (ABNORMAL) Cancer antigen 19-9 (08/03/2024 11:36 AM CDT) Pathologist [facility] CA 19-9 ag 52.0(H) <=35.0 units/mL Comment: Interpretive Data The Dereck CA 19-9 assay procedure was used. Results from different manufacturers or methods may not be comparable. Serial testing should be performed using the same method. Blood 08/03/2024 11:3 6 AM CDT 08/03/2024 11:54 AM CDT us Gorge Vaughan MD PhD LAB BLOOD ORDERABLES Final Result Performing Organization Address City/[facility] Co de Phone Number [facility] [place] [address] * (ABNORMAL) Protime-INR (08/03/2024 11:36 AM CDT) Pathologist [facility] PT 14.9(H) 9.7 - 13.0 sec INR 1.37(H) 0.90 - 1.20 [facility] Comment: Interpretive data Oral anticoagulant therapeutic ranges: Venous thromboembolism prophylaxis or treatment: 2.0-3.0 CARDIOLOGY Standard range: 2.0-3.0 High-intensity range: 2.5-3.5 Refer to indication-specific guidelines for appropriate target ranges for prosthetic heart valve replacement. Current interpretive data was last revised on 2019. Blood 08/03/2024 11:3 6 AM CDT 08/03/2024 12:01 PM CDT us Chris Holcomb MD LAB BLOOD ORDERABLES Final Result Performing Organization Address City/[facility] Co de Phone Number [facility] [place] [address] * (ABNORMAL) Comprehensive metabolic panel (08/03/2024 11:36 AM CDT) Pathologist [facility] Sodium 134(L) 135 - 145 mmol/L Potassium, pl 4.4 3.3 - 4.9 mmol/L [facility] Chloride 97 97 - 110 mmol/L [facility] CO2 26 22 - 32 mmol/L [facility] Anion gap 11 2 - 15 mmol/L [facility] BUN 29(H) 6 - 25 mg/dL [facility] Creatinine 1.18 0.80 - 1.30 mg/dL [facility] Glucose 113 70 - 199 mg/dL [facility] Comment: Interpretive Data Fasting glucose >/= 126 mg/dl is diagnostic for diabetes. Fasting is defined as no caloric intake for at least 8 hours. Fasting glucose between 100 mg/dl to 125 mg/dl is diagnostic of prediabetes. In a patient with classic symptoms of hyperglycemia or hyperglycemic crisis, a random glucose >/= 200 mg/dl is diagnostic for diabetes. In the absence of unequivocal hyperglycemia, results should be confirmed by repeat testing. The classification and Diagnosis of Diabetes Diabetes Care 2021; 46: S19-S40. Current interpretive data was last revised 2022. Calcium 9.6 8.5 - 10.3 mg/dL [facility] Bilirubin, total 0.9 0.1 - 1.2 mg/dL [facility] Protein, pl 7.3 6.5 - 8.5 g/dL [facility] Albumin 4.4 3.5 - 5.0 g/dL [facility] Alk phos 116 40 - 130 Units/L [facility] ALT 23 7 - 55 Units/L [facility] AST 34 10 - 50 Units/L [facility] Blood 08/03/2024 11:3 6 AM CDT 08/03/2024 11:54 AM CDT us Gorge Vaughan MD PhD LAB BLOOD ORDERABLES Final Result [facility] [place] [address] * (ABNORMAL) Protime-INR (07/31/2024 2:11 PM CDT) PT 32.0(H) 9.7 - 13.0 sec INR 2.90(H) 0.90 - 1.20 [facility] Comment: Interpretive data Oral anticoagulant therapeutic ranges: Venous thromboembolism prophylaxis or treatment: 2.0-3.0 CARDIOLOGY Standard range: 2.0-3.0 High-intensity range: 2.5-3.5 Refer to indication-specific guidelines for appropriate target ranges for prosthetic heart valve replacement. Current interpretive data was last revised on 2019. Blood 07/31/2024 2:11 PM CDT 07/31/2024 2:52 PM CDT Chris Hart MD LAB BLOOD ORDERABLES Final Result [facility] [place] [address] * POCT INR (07/29/2024 4:29 PM CDT) INR, POC 7.30 Blood Venous blood specimen / Unknown 07/29/2024 4:29 PM CDT Chris Hart MD POINT OF CARE TEST OR DERABLES Final Result * Critical Result Callback Hematology (07/29/2024 2:31 PM CDT) Date Notified [id number] Time Notified 1600 [facility] TestName INR [facility] Called/Read Back Seema [facility] Credentials RN [facility] Called By WILMAN [facility] Blood 07/29/2024 2:31 PM CDT 07/29/2024 2:53 PM CDT Aisha Delcid NP LAB BLOOD ORDERABLES Final Resul t Performing Organization Address City/[facility]/ZIP Co de Phone Number [facility] [place] [address] * (ABNORMAL) Protime-INR (07/29/2024 2:31 PM CDT) PT 80.1(H) 9.7 - 13.0 sec INR 7.13(C) 0.90 - 1.20 [facility] Comment: No clot detected in sample - [id number] - 07/29/24, 3:38 PM Interpretive data Oral anticoagulant therapeutic ranges: Venous thromboembolism prophylaxis or treatment: 2.0-3.0 CARDIOLOGY Standard range: 2.0-3.0 High-intensity range: 2.5-3.5 Refer to indication-specific guidelines for appropriate target ranges for prosthetic heart valve replacement. Current interpretive data was last revised on 2019. Blood 07/29/2024 2:31 PM CDT 07/29/2024 2:51 PM CDT us Aisha Delcid SAP BI DEVELOPER LAB BLOOD ORDERABLES Final Resul t Performing Organization Address City/[facility] Co de Phone Number [facility] [place] [address] * (ABNORMAL) Protime-INR (07/29/2024) INR 7.30(A) 0.90 - 1.10 [facility] Blood 07/29/2024 Historical Provider LAB BLOOD ORDERABLES Lila l Result Performing Organization Address [facility] Co de Phone Number [facility] * (ABNORMAL) Protime-INR (07/27/2024 9:50 AM CDT) INR 5.3(H) [facility] Comment: Verified by repeat analysis. Reference Range 0.9-1.1 Moderate-intensity Warfarin Therapy 2.0-3.0 Higher-intensity Warfarin Therapy 3.0-4.0 PT 50.3(H) 9.0 - 11.5 sec [facility] Comment: Verified by repeat analysis. For additional information, please refer to http://education.[employer].m2fx/faq/DHN237 (This link is being provided for informational/ educational purposes only.) Blood 07/27/2024 9:50 AM CDT 07/27/2024 9:51 AM CDT Narrative [facility] - 07/27/2024 5:06 PM CDT FASTING:NO FASTING: NO us Chris Hart MD LAB BLOOD ORDERABLES Final Result Performing Organization Address City/[facility]/ZIP Co de Phone Number [facility] [address] [place] [address] * SCAN - LABS (07/27/2024) us Provider Scanning Final Result * (ABNORMAL) Protime-INR (07/22/2024 9:33 AM CDT) INR 4.9(H) [facility] Comment: Reference Range 0.9-1.1 Moderate-intensity Warfarin Therapy 2.0-3.0 Higher-intensity Warfarin Therapy 3.0-4.0 PT 46.9(H) 9.0 - 11.5 sec [facility] [place] Comment: For additional information, please refer to http://education.[employer]ding [employer]/faq/ZGF635 (This link is being provided for informational/ educational purposes only.) Blood 07/22/2024 9:33 AM CDT 07/22/2024 9:35 AM CDT Chris Hart MD LAB BLOOD ORDERABLES Final Result [facility] [address] [place] [address] * Protime-INR (07/14/2024 1:29 PM CDT) PT 12.3 9.7 - 13.0 sec Comment:Testing performed by : [facility], [address], [place] [address] INR 1.14 0.90 - 1.20 [facility] Comment: Interpretive data Oral anticoagulant therapeutic ranges: Venous thromboembolism prophylaxis or treatment: 2.0-3.0 CARDIOLOGY Standard range: 2.0-3.0 High-intensity range: 2.5-3.5 Refer to indication-specific guidelines for appropriate target ranges for prosthetic heart valve replacement. Current interpretive data was last revised on 2019. Testing performed by: [facility], [address] [employer] [employer] [facility], [place] [address] Blood 07/14/2024 1:29 PM CDT 07/14/2024 1:59 PM CDT Katie Reeder MD LAB BLOOD ORDERABLES Final Resul t Performing Organization Address [facility] Co de Phone Number [facility] [address] [address] * eGFR (07/14/2024 11:59 AM CDT) eGFR 90 >=60 mL/min/1. 73 m2 Comment: Interpretive Data Reference Interval Normal >/= 90 mL/min/1.73m2 Mildly decreased* 60 - 89 mL/min/1.73m2 Mildly to moderately decreased 45 - 59 mL/min/1.73m2 Moderately to severely decreased 30 - 44 mL/min/1.73m2 Severely decreased 15 - 29 mL/min/1.73m2 Kidney Failure < 15 mL/min/1.73m2 *Relative to young adult level Estimated glomerular filtration rate is determined by the 2020 CKD-EPI equation recommended by the National Kidney Foundation (A Unifying Approach to GFR Estimation: Recommendations of the NKF-ASK Task Force on Reassessing the Inclusion of Race in Diagnosing Kidney Disease, JASN 2020). The CKD-EPI equation should not be used for patients with unstable renal function and has not been validated in children and those over 70. Current interpretive data was last reviewed 2021. Testing performed by: [facility], [address], [place] [address] Blood 07/14/2024 11:5 9 AM CDT 07/14/2024 12:13 PM CDT us Gorge Vaughan MD PhD LAB BLOOD ORDERABLES Final Result Performing Organization Address [facility]/ZIP Co de Phone Number [facility] [address] [address] [place] [address] * Differential, auto (07/14/2024 11:59 AM CDT) Neutrophil abs 2.9 1.5 - 6.5 K/cumm Comment:Testing performed by : [facility], [facility] [address], [address] [place] [address] Imm gran abs 0.0 0.0 - 0.1 K/cumm [facility] Comment:Testing performed by : [facility], [facility] [address], [address] [place] [address] Lymphocyte abs 0.8 0.8 - 3.3 K/cumm [facility] Comment:Testing performed by : [facility], [facility] [address], [address] [place] [address] Monocyte abs 0.8 0.2 - 0.8 K/cumm [facility] Comment:Testing performed by : [facility], [facility], [address] [place] [address] Eosinophil abs 0.1 0.0 - 0.5 K/cumm [facility] Comment:Testing performed by : [facility], [facility], [address] [place] [address] Basophil abs 0.0 0.0 - 0.1 K/cumm [facility] Comment:Testing performed by : [facility], [facility], [address] [place] [address] Neutrophil pct 62.5 % [facility] Comment: Interpretive Data Percent cell count reference ranges are not reported, since discordance with absolute values may lead to misinterpretation of CBC data. Current Interpretive Data was last revised on 2017. Testing performed by: [facility], [facility], [address] [place] [address] Imm gran pct 0.6 % [facility] Comment: Interpretive Data Percent cell count reference ranges are not reported, since discordance with absolute values may lead to misinterpretation of CBC data. Current Interpretive Data was last revised on 2017. Testing performed by: [facility], [facility], [address] [place] [address] Lymphocyte pct 17.6 % [facility] Comment: Interpretive Data Percent cell count reference ranges are not reported, since discordance with absolute values may lead to misinterpretation of CBC data. Current Interpretive Data was last revised on 2017. Testing performed by: [facility], [facility], [address] [place] [address] Monocyte pct 17.6 % [facility] Comment: Interpretive Data Percent cell count reference ranges are not reported, since discordance with absolute values may lead to misinterpretation of CBC data. Current Interpretive Data was last revised on 2017. Testing performed by: [facility], [facility], [address] [place] [address] Eosinophil pct 1.1 % [facility] Comment: Interpretive Data Percent cell count reference ranges are not reported, since discordance with absolute values may lead to misinterpretation of CBC data. Current Interpretive Data was last revised on 2017. Testing performed by: [facility], [facility], [address] [place] [address] Basophil pct 0.6 % [facility] Comment: Interpretive Data Percent cell count reference ranges are not reported, since discordance with absolute values may lead to misinterpretation of CBC data. Current Interpretive Data was last revised on 2017. Testing performed by: [facility], [facility], [address] [place] [address] Blood 07/14/2024 11:5 9 AM CDT 07/14/2024 12:01 PM CDT us Gorge Vaughan MD PhD LAB BLOOD ORDERABLES Final Result Performing Organization Address City/State/[facility] Co de Phone Number [facility] [address] [facility] [place] [address] * (ABNORMAL) CBC with auto differential (07/14/2024 11:59 AM CDT) WBC 4.7 3.8 - 9.9 K/cumm Comment:Testing performed by : [facility], [facility], [address] [place] [address] Hgb 11.0(L) 13.0 - 17.5 g/dL [facility] Comment:Testing performed by : [place] [address], [address] [place] [address] Hct 31.9(L) 38.9 - 50.3 % [facility] Comment:Testing performed by : [place] [address], [address] [place] [address] Plt 108(L) 150 - 400 K/cumm [facility] Comment:Testing performed by : [place] [address] [place] [address] MPV 9.6 9.1 - 12.3 fL [facility] Comment:Testing performed by : [place] [address] [place] [address] RBC 3.24(L) 4.30 - 5.80 M/cumm [facility] Comment:Testing performed by : [place] [address] [place] [address] MCV 98(H) 81 - 96 fL [facility] Comment:Testing performed by : [place] [address] [place] [address] MCH 34.0(H) 27.1 - 33.3 pg [facility] Comment:Testing performed by : [place] [address] [place] [address] MCHC 34.5 32.3 - 35.7 g/dL [facility] Comment:Testing performed by : [place] [address] [place] [address] RDW CV 14.6 11.1 - 14.9 % [facility] Comment:Testing performed by : [place] [address] [place] [address] RDW SD 53.1(H) 35.7 - 48.1 fL [facility] Comment:Testing performed by : [place] [address] [place] [address] Blood 07/14/2024 11:5 9 AM CDT 07/14/2024 12:01 PM CDT Gorge Vaughan MD PhD LAB BLOOD ORDERABLES Final Result Performing Organization Address [facility] Co de Phone Number [facility] [address] [place] [address] * (ABNORMAL) Cancer antigen 19-9 (07/14/2024 11:59 AM CDT) CA 19-9 ag 77.8(H) 0.0 - 35.0 units/mL Comment: Interpretive Data The Dereck CA 19-9 assay procedure was used. Results from different manufacturers or methods may not be comparable. Serial testing should be performed using the same method. Testing performed by: [facility], [address] [place] [address]., [address] Blood 07/14/2024 11:5 9 AM CDT 07/14/2024 9:10 PM CDT Gorge Vaughan MD PhD LAB BLOOD ORDERABLES Final Result Performing Organization Address [facility] Co de Phone Number [facility] [address] [place] [address] * (ABNORMAL) Comprehensive metabolic panel (07/14/2024 11:59 AM CDT) Sodium 133(L) 135 - 145 mmol/L Comment:Testing performed by : [facility], [address], [place] [address] Potassium, pl 4.2 3.3 - 4.9 mmol/L C[facility]ER [facility] Comment:Testing performed by : [facility], [address], [place] [address] Chloride 96(L) 97 - 110 mmol/L [facility] Comment:Testing performed by : [facility], [address], [place] [address] CO2 26 22 - 32 mmol/L [facility] Comment:Testing performed by : [facility], [address], [place] [address] Anion gap 11 2 - 15 mmol/L [facility] Comment:Testing performed by : [facility], [address], [place] [address] BUN 20 6 - 25 mg/dL [facility] Comment:Testing performed by : [facility], [address], [place] [address] Creatinine 0.90 0.80 - 1.30 mg/dL [facility] Comment:Testing performed by : [facility], [address], [place] [address] Glucose 99 70 - 199 mg/dL [facility] Comment: Interpretive Data Fasting glucose >/= 126 mg/dl is diagnostic for diabetes. Fasting is defined as no caloric intake for at least 8 hours. Fasting glucose between 100 mg/dl to 125 mg/dl is diagnostic of prediabetes. In a patient with classic symptoms of hyperglycemia or hyperglycemic crisis, a random glucose >/= 200 mg/dl is diagnostic for diabetes. In the absence of unequivocal hyperglycemia, results should be confirmed by repeat testing. The classification and Diagnosis of Diabetes Diabetes Care 202; 46: S19-S40. Current interpretive data was last revised 2022. Testing performed by: [facility], [address], [place] [address] Calcium 9.5 8.5 - 10.3 mg/dL [facility] Comment:Testing performed by : [facility], [address], [place] [address] Bilirubin, total 0.6 0.1 - 1.2 mg/dL [facility] Comment:Testing performed by : [facility], [address], [place] [address] Protein, pl 6.9 6.5 - 8.5 g/dL [facility] Comment:Testing performed by : [facility], [address], [place] [address] Albumin 4.3 3.5 - 5.0 g/dL [facility] Comment:Testing performed by : [facility], [address], [place] [address] Alk phos 115 40 - 130 Units/L [facility] Comment:Testing performed by : [facility], [address], [place] [address] ALT 32 7 - 55 Units/L [facility] Comment:Testing performed by : [facility], [address], [place] [address] AST 34 10 - 50 Units/L [facility] Comment:Testing performed by : [facility], [address], [place] [address] Blood 07/14/2024 11:5 9 AM CDT 07/14/2024 12:13 PM CDT us Gorge Vaughan MD PhD LAB BLOOD ORDERABLES Final Result [facility] [address] [place] [address] * CT 3-D Rendering Separate Modality (07/14/2024 10:32 AM CDT) Anatomical Region Laterality Modality N/A Computed Tomogra phy 07/14/2024 10:3 4 AM CDT Impressions 07/14/2024 11:56 AM CDT Total liver volume: 1836 mL Dictated by: Kobi Timmons MD The radiology attending physician has personally reviewed this study, and had reviewed and/or edited this written report and agrees with it. Electronically signed by: Sepideh Atkins M.D. Narrative 07/14/2024 11:56 AM CDT EXAMINATION: THREE DIMENSIONAL RECONSTRUCTION FOR LIVER VOLUMES TECHNIQUE: The raw data from MR examination dated 07/10/2024 with accession number [id number] was processed on a separate workstation for calculation of liver volumes using 3 dimensional reconstructions. Procedure Note Sepideh Atkins MD - 07/14/2024 EXAMINATION: THREE DIMENSIONAL RECONSTRUCTION FOR LIVER VOLUMES TECHNIQUE: The raw data from MR examination dated 07/10/2024 with accession number [id number] was processed on a separate workstation for calculation of liver volumes using 3 dimensional reconstructions. IMPRESSION: Total liver volume: 1836 mL Dictated by: Kobi Timmons MD The radiology attending physician has personally reviewed this study, and had reviewed and/or edited this written report and agrees with it. Electronically signed by: Sepideh Atkins M.D. Result [facility] Katie Reeder MD IMG CT PROCEDURES Final Result * (ABNORMAL) Hemoglobin A1c (06/22/2024 2:10 PM EMERGENCY MEDICINE MEDICAL DIRECTOR) HbA1c 7.9(H) 5.1 - 5.6 % [facility] Comment: HBA1C 5.1 - 5.6 = NORMAL HBA1C 5.7 - 6.4 = PREDIABETES HBA1C >=6.5 = PROVISIONAL DIAGNOSIS OF DIABETES Estimated Average Glucose 180 mg/dL [facility] Blood 06/22/2024 2:10 PM EMERGENCY MEDICINE MEDICAL DIRECTOR 06/22/2024 3:15 PM EMERGENCY MEDICINE MEDICAL DIRECTOR Result [facility] Lex Perez MD LAB BLOOD ORDERABLES Final Resu lt [facility] * Hepatitis C antibody Blood (06/08/2024 7:28 AM EMERGENCY MEDICINE MEDICAL DIRECTOR) Pathologist [facility] Hep C Ab Nonreactive Nonreactive Comment:Antibodies to HCV no t detected. Does NOT exclude the possibility of recent exposure to HCV. Current interpretive data was last revised on 22 Blood 06/08/2024 7:28 AM EMERGENCY MEDICINE MEDICAL DIRECTOR 06/08/2024 8:06 AM EMERGENCY MEDICINE MEDICAL DIRECTOR Narrative [facility] - 06/08/2024 8:55 AM EMERGENCY MEDICINE MEDICAL DIRECTOR Please add the following comment to each lab: This lab is being obtained as part of a liver transplant evaluation, is time sensitive, and should only be drawn during the evaluation visit at [facility]. Result [facility] Katie Reeder MD LAB MICROBIOLOGY - GENERAL ORDER DEMETRIO Final Result [facility] [place] [address] * (ABNORMAL) Lipid panel (06/08/2024 7:28 AM EMERGENCY MEDICINE MEDICAL DIRECTOR) Cholesterol 176 30 - 199 mg/dL Comment: Interpretive Data Ages < or = 19 years Acceptable: <170 mg/dL Borderline high: 170-199 mg/dL High: >or= 200 mg/dL Ages > or = 20 years Desirable: <200 mg/dL Borderline high: 200-239 mg/dL High: >or= 240 mg/dL Literature References: 1. Expert Panel on Integrated Guidelines for Cardiovascular Health and Risk Reduction in Children and Adolescents. Pediatrics 2011;128:S213 2. NCEP Expert Panel. Circulation 2004;110:227 Current Interpretive Data was last revised on 2017. Triglycerides 266(H) <=149 mg/dL [facility] Comment: Interpretive Data Ages < or = 9 years Acceptable: <75 mg/dL Borderline high: 75-99 mg/dL High: >or= 100 mg/dL Ages 10 to 20 years Acceptable: <90 mg/dL Borderline high: 90-129 mg/dL High: >or= 130 mg/dL Ages > or = 20 years Desirable: <150 mg/dL Borderline high: 150-199 mg/dL High: 200-499 mg/dL Very high: >or= 499 mg/dL Literature References: 1. Expert Panel on Integrated Guidelines for Cardiovascular Health and Risk Reduction in Children and Adolescents. Pediatrics 2011;128:S213 2. NCEP Expert Panel. Circulation 2004;110:227 Current Interpretive Data was last revised on 2017. HDL 70 >=40 mg/dL [facility] Comment: Interpretive Data Ages < or = 19 years Acceptable: >45 mg/dL Borderline low: 40-45 mg/dL Low: <40 mg/dL Ages > or = 20 years Desirable: >or= 60 mg/dL Low: <40 mg/dL Literature References: 1. Expert Panel on Integrated Guidelines for Cardiovascular Health and Risk Reduction in Children and Adolescents. Pediatrics 2011;128:S213 2. NCEP Expert Panel. Circulation 2004;110:227 Current Interpretive Data was last revised on 2017. LDL, calculated 64 <=129 mg/dL [facility] Comment: Interpretive Data Ages < or = 19 years Acceptable: <110 mg/dL Borderline high: 110-129 mg/dL High: >or= 130 mg/dL Ages > or = 20 years Optimal: <100 mg/dL Near optimal: 100-129 mg/dL Borderline high: 130-159 mg/dL High: >160 mg/dL Calculated using the Sammy LDL-C estimating equation. This equation was implemented on 2023. Prior to this date LDL-C was estimated using the Friedewald equation. Literature References: 1. Expert Panel on Integrated Guidelines for Cardiovascular Health and Risk Reduction in Children and Adolescents. Pediatrics 2011;128:S213 2. NCEP Expert Panel. Circulation 2004;110:227 3. Sammy Gee et al. DEBBIE Cardiol. 2019September 03;5(5):540-548. doi: 10.1001/jamacardio.2020.0013 Current Interpretive Data was last revised on 2023. Non-HDL Cholesterol 106 mg/dL [facility] Comment: Interpretive Data Ages < or = 19 years Acceptable: <120 mg/dL Borderline high: 120-144 mg/dL High: >145 mg/dL Ages > or = 20 years When triglycerides are >200 mg/dL, Non-HDL cholesterol is a secondary target of therapy with treatment goals that are 30 mg/dL greater than the LDL cholesterol target. Literature References: 1. Expert Panel on Integrated Guidelines for Cardiovascular Health and Risk Reduction in Children and Adolescents. Pediatrics 2011;128:S213 2. NCEP Expert Panel. Circulation 2004;110:227 Current Interpretive Data was last revised on 2017. Chol/HDL ratio 3 [facility] Blood 06/08/2024 7:28 AM EMERGENCY MEDICINE MEDICAL DIRECTOR 06/08/2024 8:07 AM EMERGENCY MEDICINE MEDICAL DIRECTOR Narrative [facility] - 06/08/2024 8:54 AM EMERGENCY MEDICINE MEDICAL DIRECTOR This lab is being obtained as part of a liver transplant evaluation, is time sensitive, and should only be drawn during the evaluation visit at [facility]. us Katie Reeder MD LAB BLOOD ORDERABLES Final Resul t [facility] [place] [address] from Last 3 Months or Most Recently Relevant to Health Maintenance Insurance [employer] MEDICARE HMO HUMANA MEDICARE HMO TRANSPLANT HU[employer]NA MEDICARE RISK Advance Directives For more information, please contact: [phone] Documents on File Type Date Recorded Patient Early Childhood Worker Expl anation ADVANCE DIRECTIVE 01/23/2024 3:15 PM POWER OF SUPERINTENDENT MEASUREMENT-MEDICAL ADVANCE DIRECTIVE 01/19/2024 12:41 PM MORALES R OF SUPERINTENDENT MEASUREMENT-MEDICAL * Full Code (Latest Code Status on File) Date Activated Date Inactivated Comments 08/28/2024 6:42 PM 09/07/2024 8:30 PM * LIMITED - No CPR Date Activated Date Inactivated Comments 08/21/2024 7:32 PM 08/28/2024 6:42 PM * Full Code Date Activated Date Inactivated Comments 08/07/2024 1:42 PM 08/07/2024 6:37 PM * Full Code Date Activated Date Inactivated Comments 05/18/2024 9:19 AM 05/18/2024 5:50 PM * Full Code Date Activated Date Inactivated Comments 03/18/2024 9:45 AM 03/18/2024 3:42 PM Care Teams Silk Weaver Relationship Specialty Start Date End Date Gilberto Martinez MD [address] [facility] [address] [place] [address] PCP - General 07/11/16 Zane Richey III, MD [address] [place] [address] Consulting Physician Cardiology 05/18/21 Raudel Childers MD [id number] [place] [address] Consulting Physician Colon and Rectal Surgery 12/26/21 Chris Hart MD [address] [facility] [address] [place] [address] Medicaid Eligibility Specialist Cardiology 03/17/24 Ely Tejada PA [id number] [place] [address] Referring Physician Physician Breast Trimmer 04/09/24 Charlee Mcmillan RMA Surgical Prehabilitation and Readiness (SPAR) Coordinator 06/11/24 Mariama Parisi, RN [address] [facility] [address] [place] [address] Material Flow Engineer 08/07/24 Agustina Li MD PhD [id number] [place] [address] Medical Oncologist/Java Scala Developer Medical Oncology 09/09/24
[2024-10-13 19:49] LABS: Basophils Percent Auto 0.1 % (0.2-1.2); Hematocrit 31.9 % (42.0-52.0); Hemoglobin 10.2 g/dL (14.0-18.0); Immature Granulocyte Absolute 0.09 K/mm3 (0.00-0.031); Immature Granulocyte Percent A 0.9 % (0-0.5); Lymphocytes Absolute Auto 0.37 K/mm3 (0.9-3.2); Lymphocytes Percent Auto 3.7 % (18.3-44.2); Mean Corpuscular Hemoglobin 31.7 pg (26-34); Mean Corpuscular Volume 99.1 fl (80-100); Mean Platelet Volume 9.6 fl (7.4-10.4); Monocytes Absolute Auto 0.8 K/mm3 (0.1-0.6); Monocytes Percent Auto 7.4 % (2.6-8.5); Neutrophils Absolute Auto 8.9 K/mm3 (1.3-6.7); Neutrophils Percent Auto 87.9 % (45.5-73.1); Platelet Count Result 199 k/mm3 (150-375); Red Blood Count 3.22 M/mm3 (4.6-6.20); Red Cell Distribution Width 16.6 % (11.5-14.5); White Blood Count 10.1 K/mm3 (4.5-10.0)
--- OUTSIDE RECORDS SUMMARY | 2024-10-13 19:49 | XMS_ITS ---
Author Organization [facility] Address [address] [place] [address] Care Team Providers Care Map Clerk Name Role Phone Gilberto Martinez MD Primary Care Provider [phone] Rossi BLACK MD, Curtis Merle Unavailable [phone] Raudel Childers MD Unavailable [phone] Chris Hart MD Unavailable [phone] Ely Tejada Unavailable Charlee McmillanA Unavailable Unavailable Mariama Parisi RN Unavailable Agustina Li MD PhD Unavailable Transplant Episode Liver Candidate [facility] ([place], [place]) [facility] Center waitlisted on 07/14/2024 Marked as Inactive on 10/08/2024 Reason: 03 - Candidate Work-up Incomplete Liver CoordinatorMariama Parisi RN Fax: N/A Email: N/A Scores Score Value Updated Expires Exceptions/Gabrielle sons CPRA Not available UNOS MELD 15 10/07/2024 01/05/2025 MELD (Calc) 15 10/07/2024 [place] 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, B iliary Tract Carcinoma) Care Team Name Role Phone Fax Email Mariama Parisi RN Liver Coordinator [phone] N/A N/A RESHMA Cleary Referring Physician [phone] N/A Mariama Feldman, ALMITA Secondary Coordinator N/A N/A N/A Nimisha Hauser Primary Patient Service Technician Pst N/A N/A N/A Jennifer Gamboa Advertising Job Titles [phone] N/A N/A Events Pre-Transplant Referred: 04/09/2024 Evaluation began: 05/15/2024 Committee: 07/07/2024 Center waitlisted: 07/14/2024 Appointments (09/12/2024 - 11/12/2024) When With Visit Type Description 10/12/[address] IMAGING VISIT 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
--- OUTSIDE RECORDS SUMMARY | 2024-10-13 19:49 | XMS_ITS | Referral Summary ---
Author Organization [facility] Address [address] [place] [address] Care Team Providers Care Drug Coordinator Name Role Phone Gilberto Martinez MD Primary Care Provider [phone] Rossi BLACK MD, Zane Morataya Unavailable [phone] Raudel Childers MD Unavailable Chris Hart MD Unavailable Ely Tejada Unavailable [phone] Charlee Mcmillan Unavailable Unavailable Mariama Parisi RN Unavailable [phone] Agustina Li MD PhD Unavailable Encounters Date Type Department Care Team Description [address] [facility] Oncology [address] [facility] Floor 8 [place] [address] Bebe Sage RN 5 2:00 PM CDT Home Care Visit [facility] - [address] [place] [address] Bryn Molina, ROBEL PT HOME VISIT 5 10:00 AM CDT Office Visit [facility] Cardiology [address] [facility] Medical Office Building 3 [address] [place] [address] Aisha Delcid NP 5 Results Follow-Up 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 Oncology [address] [facility] Floor 5 [place] [address] Agustina Li MD PhD Benign prostatic hyperplasia, unspecified whether lower urinary tract symptoms present (Primary Dx); Hilar cholangiocarcinoma (HCC) 5 10:30 AM CDT Home Care Visit [address] [place] [address] Angeline Horowitz COTA OT HOME VISIT 5 Telephone [facility] Transplant Liver [address] [facility] 3401 Mailstop [id number] [place] [address] Alethea Burch RN 5 Telephone [facility] Transplant Liver [address] Mailstop [id number] [place] [address] Alethea Burch RN [address] [facility] Oncology [address] [facility] Floor 5 [place] [address] Agustina Li MD PhD 5 Telephone [facility] Transplant Liver [address] [facility] 3401 Mailstop [id number] [place] [address] Alethea Burch RN 5 10:00 AM CDT Home Care Visit [address] [place] [address] Bryn Molina, PT PT HOME VISIT 5 Results Follow-Up [facility] Transplant Liver [address] Mailstop [phone] [place] [address] Alethea Burch, ALMITA Cancer antigen 19-9, Comprehensive metabolic panel, CBC with auto differential, Additional followed-up results: [address] [facility] Transplant Liver [address] Mailstop [phone] [place] [address] Alethea Burch RN [address] [facility] Cardiology [address] [facility] Medical Office Building 3 [address] [place] [address] Chris Hart MD Paroxysmal atrial fibrillation (HCC) (Primary Dx) 5 10:00 AM CDT Office Visit [facility] Oncology 10 [facility] [address] [place] [address] Agustina Li MD PhD Hilar cholangiocarcinoma (HCC) (Primary Dx) 5 9:00 AM CDT Clinical Support [facility] 10 [place] [address] Hilar cholangiocarcinoma (HCC) 5 10:30 AM CDT Home Care Visit [address] [place] [address] Bryn Molina, PT PT HOME VISIT 5 12:15 PM CDT Home Care Visit [address] [place] [address] Angeline Horowitz COTA OT HOME VISIT 5 Orders Only [facility] Cancer [address] [address] Charlee Tovar omar [address] [facility] Oncology [address] [facility] Floor 5 [place] [address] Marion Aden RN 5 10:00 AM CDT Home Care Visit formerly [facility] - [address] [place] [address] Bryn Molina, ROBEL PT REASSESSMENT 5 Surgical Prehabilitation and Readiness Subsequent Outreach [facility] Department of Surgery [address] [place] [address] Serge August CMA 5 Orders Only [facility] Transplant Liver [address] Mailstop [phone] [place] [address] Mariama Parisi, ALMITA [address] [facility] Transplant Liver [address] Mailstop [phone] [place] [address] Analisa, Nimisha 5 Telephone [facility] Transplant Liver [address] Mailstop [phone] [place] [address] Analisa, Nimisha 5 Telephone [facility] Transplant Liver [address] [place] [address] [address] Mailstop [phone] [place] [address] Mariama Parisi RN [address] [facility] Cardiology [address] [facility] Medical Office Building 3 [address] [place] [address] Chris Hart MD Longstanding persistent atrial fibrillation (HCC) (Primary Dx) 5 12:00 PM CDT Home Care Visit [facility] - [address] [place] [address] Hannah Roque, OT OT REASSESSMENT [address] [facility] Oncology [address] [facility] Floor 5 [place] [address] Agustina Li MD PhD Hilar cholangiocarcinoma (HCC) (Primary Dx) [address] [facility] Transplant Liver [address] Mailstop [phone] [place] [address] Mariama Parsii, ALMITA 5 10:15 AM CDT Home Care Visit [address] [place] [address] Bryn Molina, PT PT HOME VISIT 5 12:00 PM CDT Home Care Visit [address] [place] [address] Angeline Horowitz COTA OT HOME VISIT [address] [facility] Oncology [address] [facility] Floor 5 [place] [address] Marion Aedn RN 5 1:15 PM CDT Home Care Visit [address] [place] [address] Angeline Horowitz COTA OT HOME VISIT [address] [facility] Oncology [address] [facility] Floor 5 [place] [address] Marion Aden RN 5 Surgical Prehabilitation and Readiness Subsequent Outreach [facility] Department of Surgery [address] [place] [phone] Serge August CMA [address] [facility] Cardiology [address] [facility] Medical Office Building 3 [address] [place] [address] Chris Hart MD Longstanding persistent atrial fibrillation (HCC) (Primary Dx) 5 12:00 PM CDT Home Care Visit [address] [place] [address] Radha Grullon, PT PT REASSESSMENT [address] [facility] Cardiology [address] [facility] 8th [place] [address] [place] [address] Chris Hart MD 5 1:45 PM CDT Home Care Visit [place] [address] [address] [place] [address] Angeline Horowitz COTA OT HOME VISIT 5 11:15 AM CDT Home Care Visit [address] [place] [address] Radha Grullon, PT PT HOME VISIT [address] [facility] Transplant Liver [address] Mailstop [phone] [place] [address] Nimisha Hauser 5 2:30 PM CDT Home Care Visit [address] [place] [address] Bryn Molina, PT PT HOME VISIT 5 Telephone [facility] Transplant Liver [address] Mailstop [phone] [place] [address] Mariama Parisi, RN [address] [facility] Transplant Liver [address] Mailstop [phone] [place] [address] Mariama Parisi, RN 5 Results Follow-Up [facility] Transplant Liver [address] [facility] 3401 Mailstop [phone] [place] [address] Mariama Parisi, RN Cancer antigen 19-9, Comprehensive metabolic panel, CBC with auto differential, Additional followed-up results: 3 5 1:45 PM CDT Home Care Visit [place] [address] [address] [place] [address] Angeline Horowitz COTA OT HOME VISIT [address] [facility] Cardiology [address] [facility] Medical Office Building 3 [address] [place] [address] Chris Hart MD 5 9:15 AM CDT Clinical Support [facility] 10 [facility] [place] [address] 5 8:45 AM CDT Office Visit [facility] Oncology [address] [facility] [address] [place] [address] Agustina Li MD PhD Hilar cholangiocarcinoma (HCC) (Primary Dx) 5 7:45 AM CDT Clinical Support [facility] [place] [place] [address] Hilar cholangiocarcinoma (HCC); Paroxysmal atrial fibrillation (HCC); High risk medication use; Prolonged INR [address] [facility] Cardiology [facility] Medical Office Building 3 [address] [place] [address] Chris Hart MD 5 12:45 PM CDT Home Care Visit [address] [place] [address] Angeline Horowitz COTA OT HOME VISIT [address] [facility] Transplant Liver [address] [facility] 3401 Mailstop [phone] [place] [address] Genoveva Hobson [address] [facility] Transplant Liver [address] [address] Mailstop 25-26-011 [place] [address] Mariama Parisi RN 5 2:00 PM CDT Home Care Visit [address] [place] [address] Bryn Molina, ROBEL PT HOME VISIT 5 Orders Only [facility] Scanning, Provider [address] [facility] Oncology [address] [facility] Floor 5 [place] [address] Marion Aden, RN [address] [facility] Cardiology [address] [facility] Medical Office Building [address] [place] [address] Chris Hart MD Paroxysmal atrial fibrillation (HCC) (Primary Dx) [address] [facility] Cardiology [address] [facility] 8th [place] [address] [place] [address] Chris Hart MD 5 Home Care Visit [place] [address] [address] [place] [address] Hannah Roque, OT CASE COMMUNICATION 5 Home Care Visit [place] [address] [address] [place] [address] Samia Carias RN NURSE MED RECON FOR THERAPY [address] [facility] Oncology [address] [facility] [address] [place] [phone] Smith Cruz [address] [facility] Oncology [facility] Floor 5 [place] [address] Agustina Li MD PhD Hilar cholangiocarcinoma (HCC) (Primary Dx) [address] [facility] Oncology [address] [facility] Floor 5 [place] [address] Marion Aden RN 5 Surgical Prehabilitation and Readiness Subsequent Outreach [facility] Department of Surgery [address] [place] [phone] Serge August CMA 5 1:00 PM CDT Home Care Visit [address] [place] [address] Hannah Roque, OT OT INITIAL EVALUATION 5 Home Care Visit [address] [place] [address] Samia Carias RN NURSE MED RECON FOR THERAPY [address] [facility] Oncology [facility] Floor 5 [place] [address] Heidi Diaz RMA Prior Auth [address] [facility] Oncology [facility] Floor 5 [place] [address] Agustina Li MD PhD [address] [facility] Oncology [address] [place] [address] Floor [address] [place] [address] Agustina Li MD PhD 5 Documentation [facility] at [address] [address] Kait Marroquin, ASHLEY [address] [facility] Oncology [address] [place] [address] Floor 5 [place] [address] Heidi Diaz RMA Prior Auth 5 9:00 AM CDT Infusion [facility] at [address] [phone] Dehydration (Primary Dx); Hilar cholangiocarcinoma (HCC); Hypomagnesemia [address] [facility] Cardiology [address] [facility] Medical Office Building [address] [place] [address] Chris Hart MD 5 7:45 AM CDT Clinical Support [facility] at [address] [address] 5 8:30 AM CDT Office Visit [facility] Oncology [address] [place] [address] [address] [place] [address] Leela Guillermo NP Hilar cholangiocarcinoma (HCC) (Primary Dx); Dehydration 5 7:30 AM CDT Clinical Support [facility] at [address] [address] Hilar cholangiocarcinoma (HCC); Paroxysmal atrial fibrillation (HCC); High risk medication use; Prolonged INR 5 Plan of Care Documentation [place] [address] [address] [place] [address] 5 1:00 PM CDT Home Care Visit [place] [address] [address] [place] [address] Radha Grullon, PT PT OASIS START OF CARE [address] [facility] Transplant Liver [address] [address] Mailstop [phone] [place] [address] Genoveva Hobson [address] [facility] Transplant Liver [address] Mailstop [phone] [place] [address] Genoveva Hobson [address] [facility] Transplant Liver [address] Mailstop [phone] [place] [address] Mariama Parisi RN [address] [facility] Oncology [facility] Floor 5 [place] [address] Landy Hooker, ALMITA [address] [facility] Cardiology [address] [facility] Floor 1, [address] [place] [address] Seema Mora, RN 5 6:12 PM CDT - 5 4:07 PM CDT Hospital [address] [address] Gorge Contreras MD PhD Rais, MD Abimael Mcgee, MD Odalys Matthews, MD Sweta Felipe, MD Marjorie Rai Priya, MD Hoyt, Smith Hinton MD Diarrhea, unspecified type (Primary Dx); FTT (failure to thrive) in adult; Acute hypoxemic respiratory failure (HCC); Hypoxia Discharge Disposition: Discharge to home or self care 5 Travel 5 2:[address] [facility] Vascular Lab IP 1 [facility] [address] [place] [address] 5 Surgical Prehabilitation and Readiness Subsequent Outreach [facility] Department of Surgery [address] [place] [address] Serge August CMA [address] [place] [address] Yee Marin RN [address] [facility] Oncology [address] [facility] Floor 5 [place] [address] Landy Hooker RN Hilar cholangiocarcinoma (HCC) (Primary Dx) 5 7:55 AM CDT Ancillary Procedure [facility] Vascular Lab IP 1 [facility] [address] [place] [address] 5 11:35 AM CDT Anesthesia Event [facility] 1 [place] [address] Arlene Phillips MD 5 10:56 AM CDT - 5 11:26 AM CDT Surgery [facility] 1 [place] [address] Abram Smith MD SIGMOID BIOPSY [address] [facility] and [facility] Transplant Liver [address] Mailstop [phone] [place] [address] Mariama Parisi, ALMITA 5 Surgical Prehabilitation and Readiness Subsequent Outreach [facility] Department of Surgery [address] [place] [address] Serge August CMA [address] [facility] Cardiology [address] [facility] Floor 1, [address] [place] [address] Chris Hart MD [address] [facility] Oncology [address] [facility] Floor 5 [place] [address] Landy Hooker, ALMITA Hilar cholangiocarcinoma (HCC) (Primary Dx) 5 Results Follow-Up [facility] [address] [facility] [address] [place] [address] Seema Mora, ALMITA Protime-INR, aPTT 5 3:53 PM CDT - 5 11:59 PM CDT Hospital Encounter [facility] ([facility]) [address] [place] [address] Discharge Disposition: Discharge to home or self care 5 2:54 PM CDT - 5 11:59 PM CDT Hospital Encounter [facility] ([facility]) [address] [place] [address] Other specified hypotension (Primary Dx); Nausea; Elevated INR Discharge Disposition: Discharge to home or self care [address] [facility] Oncology [address] [facility] Floor 5 [place] [address] Landy Hooker RN [address] [facility] Gastroenterolog y [address] [place] [address] Medical Office Building 4, [address] [place] [address] Erin Dillard RN GI Preprocedure 5 Telephone [facility] 10 [place] [address] 5 7:24 PM CDT - 5 3:09 AM CDT Hospital Encounter [facility] ([facility]) [address] [place] [address] Nausea and vomiting, unspecified vomiting type (Primary Dx); Hilar cholangiocarcinoma (HCC) Discharge Disposition: Discharge to home or self care 5 Telephone [facility] 10 [place] [address] [facility] Oncology [address] [place] [address] Floor 5 [place] [address] Landy Hooker RN [address] [facility] Oncology [address] [facility] Floor 5 [place] [address] Landy Hooker, RN Hand foot syndrome (Primary Dx); Hilar cholangiocarcinoma (HCC) [address] [facility] Cardiology [address] [facility] Medical Office Building [address] [place] [address] Chris Hart MD Paroxysmal atrial fibrillation (HCC) (Primary Dx) 5 Telephone [facility] [address] [place] [address] [address], [place] [address] Zane Richey III, MD 5 1:15 PM CDT Ancillary Procedure [facility] [address] [place] [address] [address], [place] [address] Cardiac pacemaker in situ (Primary Dx); Sick sinus syndrome (HCC) 5 9:30 AM CDT Office Visit [facility] Gasteroenterolo gy [address] [facility] 12th [place] [address] [place] [address] Jamin Posey MD Cholangiocarcinoma (HCC) (Primary Dx); Hilar cholangiocarcinoma (HCC) 5 11:30 AM CDT Telemedicine [facility] Advanced Medicine Radiation Oncology [address] [place] [address] [place] [address] Gorge Garza MD PhD Cholangiocarcinoma (HCC) (Primary Dx) 5 12:32 PM CDT Anesthesia Event [facility] Center [address] [facility] [address] [place], [place] [address] Arpan Guzman MD 5 11:30 AM CDT - 5 12:00 PM CDT Surgery [facility] [address] [facility] [address] [place] [address] Chris Holcomb MD ENDO ENDOSCOPIC RETROGRADE CHOLANGIOPANCREATOGRAPHY REMOVE/CHANGE STENT [GI513] 5 10:17 AM CDT - 5 2:27 PM CDT Hospital Encounter [facility] [address] [facility] [address] [place] [address] Chris Holcomb MD History of biliary stent insertion; Hilar cholangiocarcinoma (HCC) Discharge Disposition: Discharge to home or self care 5 Surgical Prehabilitation and Readiness Subsequent Outreach [facility] Department of Surgery [address] [place] [address] Serge August CMA [address] [facility] Cardiology [address] [facility] Medical Office Building [address] [place] [address] Chris Hart MD Permanent atrial fibrillation (HCC) (Primary Dx) 5 12:45 PM CDT Office Visit [facility] Oncology [address] [facility] [address] [place] [address] Gorge Contreras MD PhD Hilar cholangiocarcinoma (HCC) (Primary Dx) 5 Results Follow-Up [facility] Cardiology [address] [place] [address] for Advanced Medicine 8th [place] [address] [place] [address] Seema Mora, ALMITA Protime-INR [address] [facility] Gastroenterolog [facility] [address] [place] [address] Medical Office Building [address] [place] [address] Erin Dillard RN GI Preprocedure [address] [facility] and [facility] Transplant Liver [address] Mailstop [phone] [place] [address] Mei Cohen RN 5 2:25 PM CDT Lab [facility] ([facility]) [address] [place] [address] 5 2:10 PM CDT Lab [facility] ([facility]) [address] [place] [address] Hilar cholangiocarcinoma (HCC); Elevated INR [address] [facility] and [facility] Transplant Liver [address] Mailstop [phone] [place] [address] Mei Cohen RN [address] [facility] Cardiology [address] [facility] Medical Office Building 3 [address] [place] [address] Chris Hart MD 5 3:50 PM CDT Lab [facility] Advanced [facility] ([facility]) [address] [place] [phone] Paroxysmal atrial fibrillation (HCC); High risk medication use; Prolonged INR 5 Results Follow-Up [facility] Cardiology [address] [place] [address] Advanced Medicine 8th [place] [address] [place] [address] Seema Mora RN Protime-INR [address] [facility] Cardiology [address] [place] [address] Advanced Medicine 8th [place] [address] [place] [address] Chris Hart MD [address] [facility] Gastroenterolog y [address] [place] [address] Medical Office Building 4, [address] [place] [address] Yesika Major RN Test Results; recommendations 5 4:20 PM CDT Lab [facility] Advanced Medicine [facility] ([facility]) [address] [place] [address] High risk medication use; Prolonged INR [address] [facility] Cardiology [address] [facility] Advanced Medicine 8th [place] [address] [place] [address] Seema Mora, ALMITA [address] [facility] Cardiology [facility] Office Building 3 [address] [place] [address] Chris Hart MD Persistent atrial fibrillation (HCC) (Primary Dx) 5 Orders Only [facility] Scanning, Provider 5 Telephone Gastro[facility]ero Judy Us MD Test Results 5 Telephone Critical Care Medicine Brandon Walsh MD [address] [facility] Oncology [address] [facility] Floor 5 [place] [address] Landy Hooker RN [address] [facility] Cardiology [address] [place] [address] Advanced Medicine 8th [place] [address] [place] [address] Chris Hart MD bp lower-holding amlodipine [address] [facility] Cardiology [address] [place] [address] Office Building 3 [address] [place] [address] Chris Hart MD 5 Telephone Critical Care Medicine Brandon Walsh MD 5 Telephone [facility] Transplant Liver [address] [phone] [place] [address] Mei Cohen, ALMITA 5 Surgical Prehabilitation and Readiness Subsequent Outreach [facility] Department of Surgery [address] [place] [phone] Serge August CMA [address] [facility] and [facility] Transplant Liver [address] [facility] [address] [place] [address]-54-1 [place] [address] Mei Cohen, ALMITA 5 Telephone [facility] Transplant Liver [address] [facility] [address] Mailstop [phone] [place] [address] Mei Cohen, RN [address] [facility] Transplant Liver [address] [facility] [address] Mailstop [phone] [place] [address] Nimisha Hauser [address] [facility] Transplant Liver [address] [facility] [address] Mailstop [phone] [place] [address] Nimisha Hauser ABO Verification [address] [facility] Transplant Liver [address] [facility] [address] Mailstop [phone] [place] [address] Mei Cohen, RN 5 1:15 PM CDT Clinical Support [facility] at [address] [address] Hilar cholangiocarcinoma (HCC) [address] [facility] Transplant Liver [address] [place] [address] [facility] -87-6 [place] [address] Mei Cohen, ALMITA [address] [facility] Transplant Liver [address] [place] [address] [address] Mailstop [phone] [place] [address] Mei Cohen, ALMITA [address] [facility] Cardiology [address] [facility] 8th [place] [address] [place] [address] Chris Hart MD 5 10:05 AM CDT - 5 11:59 PM CDT Hospital [facility] 49[address] [place] [address] Hilar cholangiocarcinoma (HCC) Discharge Disposition: Discharge to home or self care [address] [facility] Transplant Liver [address] [facility] [address] Mailstop [phone] [place] [address] Mei Cohen, ALMITA 5 12:45 PM CDT Office Visit [facility] Oncology [address] [facility] [address] [place] [phone] Gorge Contreras MD PhD Hilar cholangiocarcinoma (HCC) (Primary Dx) 5 11:45 AM CDT Clinical Support [facility] Center at [facility] [address] [facility] [phone] Hilar cholangiocarcinoma (HCC) [address] [facility] Cardiology [address] [facility] Floor 1, [address] [place] [address] Seema Mora RN Longstanding persistent atrial fibrillation (HCC) (Primary Dx) 5 Results Follow-Up [facility] Transplant Liver [address] [facility] [address] Mailstop [phone] [place] [address] Mei Cohen, ALMITA MRI Abdomen MRCP W WO Contrast from Last 3 Months Allergies Active Allergy Reactions Criticality Noted Date Comments Cephalexin Dizziness Low 05/04/2021 Zosyn was given in 2021 & cefepime was given in 2023 Iodinated Contrast Media Hives Medium 10/13/2008 Medications citalopram (CeleXA) 20 mg tabletIndications:An xiety with Depression Take 1 tablet (20 mg total) by mouth every morning 018 Active multivitamin tabletIndications:Vi tamin Deficiency Prevention Take 1 tablet by mouth news editor before breakfast Active simvastatin (ZOCOR) 10 mg tabletIndications:hy perlipidemia Take 1 tablet (10 mg total) by mouth nightly 015 Active amLODIPine (NORVASC) 5 mg tabletIndications:hy pertension Take 1 tablet (5 mg total) by mouth every morning 024 Active hydroCHLOROthiazide (HYDRODIURIL) 25 mg tabletIndications:hy pertension Take 1 tablet (25 mg total) by mouth every morning Active lisinopriL (PRINIVIL,ZESTRIL) 40 mg tabletIndications:hy pertension Take 1 tablet (40 mg total) by mouth every morning Active meclizine (ANTIVERT) 25 mg tabletIndications:Ve rtigo Take 1 tablet (25 mg total) by mouth every 6 (six) hours as needed for dizziness 30 tablet 024 Active spironolactone (ALDACTONE) 25 mg tabletIndications:hy pertension [...] induced hand foot syndrome. 60 g 1 025 Active al & mag hydroxide simethicone-diphenhy bduscbl-uwmycicqd-mf statin (MAGIC MOUTHWASH) suspensionIndication s:oral thrush Swish [...] times daily with meals (bkfst, dinner),RX # [id number] [facility] in home, Indications: Iron Deficiency Anemia, [...] Patient taking differently:3 mg oral Every morning,rx# [id number], Indications: inflammation, Reported on 10/13/2024 capecitabine (XELODA) [...] scheduled antidiarrheals - Had soft stools x3 5/ morning but with subsequent watery diarrhea. Discuss [...] flexible sigmoidoscopy tomorrow by GI. If INR 4/25 remains greater than 2; plan to administer [...] 9 y - s/p Vit K in [facility]. S/p vitamin K 2.5 mg oral once 08/22, s/p Vit K 10 IV 08/23 - INR 1.63 08/24-- Resumed warfarin home dose 2 mg daily (08/24-p) - Daily INR Assessment & Plan (09/04/2024 11:35 AM CDT): - Secondary to nausea/vomiting/diarhea while on warfarin. INR > 9 y - s/p Vit K in [facility]. S/p vitamin K 2.5 mg oral once 08/22, s/p Vit K 10 IV 08/23 - INR 1.63 08/24-- Resumed warfarin home dose 2 mg daily (08/24-p) - Daily INR Assessment & Plan (09/03/2024 2:39 PM CDT): - Secondary to nausea/vomiting/diarhea while on warfarin. INR > 9 y - s/p Vit K in [facility]. S/p vitamin K 2.5 mg oral once 08/22, s/p Vit K 10 IV 08/23 - INR 1.63 08/24-- Resumed warfarin home dose 2 mg daily (08/24-p) - Daily INR Assessment & Plan (09/02/2024 10:30 AM CDT): - Secondary to nausea/vomiting/diarhea while on warfarin. INR > 9 y - s/p Vit K in [facility]. S/p vitamin K 2.5 mg oral once 08/22, s/p Vit K 10 IV 08/23 - INR 1.63 08/24-- Resumed warfarin home dose 2 mg daily (08/24-p) - Daily INR Assessment & Plan (09/01/2024 4:08 PM CDT): - Secondary to nausea/vomiting/diarhea while on warfarin. INR > 9 y - s/p Vit K in [facility]. S/p vitamin K 2.5 mg oral once 08/22, s/p Vit K 10 IV 08/23 - INR 1.63 08/24-- Resumed warfarin home dose 2 mg daily (08/24-p) - Daily INR Assessment & Plan (08/31/2024 11:42 AM CDT): - Secondary to nausea/vomiting/diarhea while on warfarin INR > 9 y - s/p Vit K in [facility] S/p vitamin K 2.5 mg oral once 08/22, s/p Vit K 10 IV 08/23 INR 1.63 08/24-- Resumed warfarin home dose 2 mg daily (08/24-p) Daily INR See atrial fibrillation Assessment & Plan (08/30/2024 12:11 PM CDT): - Secondary to nausea/vomiting/diarhea while on warfarin INR > 9 y - s/p Vit K in [facility] S/p vitamin K 2.5 mg oral once 08/22, s/p Vit K 10 IV 08/23 INR 1.63 08/24-- Resumed warfarin home dose 2 mg daily (08/24-p) Daily INR Assessment & Plan (08/29/2024 1:59 PM CDT): - Secondary to nausea/vomiting/diarhea while on warfarin INR > 9 y - s/p Vit K in [facility] S/p vitamin K 2.5 mg oral once 08/22, s/p Vit K 10 IV 08/23 INR 1.63 08/24-- Resumed warfarin home dose 2 mg daily (08/24-p) Daily INR Assessment & Plan (08/28/2024 5:10 PM CDT): - Secondary to nausea/vomiting/diarhea while on warfarin INR > 9 y - s/p Vit K in [facility] S/p vitamin K 2.5 mg oral once 08/22, s/p Vit K 10 IV 08/23 INR 1.63 08/24-- Resumed warfarin home dose 2 mg daily (08/24-p) Daily INR Assessment & Plan (08/27/2024 6:05 PM CDT): - Secondary to nausea/vomiting/diarhea while on warfarin INR > 9 y - s/p Vit K in [facility] S/p vitamin K 2.5 mg oral once 08/22, s/p Vit K 10 IV 08/23 INR 1.63 08/24-- Resumed warfarin home dose 2 mg daily (08/24-p) Daily INR Assessment & Plan (08/26/2024 5:10 PM CDT): - Secondary to nausea/vomiting/diarhea while on warfarin INR > 9 y - s/p Vit K in [facility] S/p vitamin K 2.5 mg oral once 08/22, s/p Vit K 10 IV 08/23 INR 1.63 08/24-- Resumed warfarin home dose 2 mg daily (08/24-p) Daily INR Assessment & Plan (08/25/2024 6:44 PM CDT): - Secondary to nausea/vomiting/diarhea while on warfarin INR > 9 y - s/p Vit K in [facility] S/p vitamin K 2.5 mg oral once 08/22, s/p Vit K 10 IV 08/23 INR 1.63 08/24-- Resumed warfarin home dose 2 mg daily (08/24-p) Daily INR Assessment & Plan (08/24/2024 1:31 PM CDT): - Secondary to nausea/vomiting/diarhea while on warfarin INR > 9 y - s/p Vit K in [facility] S/p vitamin K 2.5 mg oral once 08/22, s/p Vit K 10 IV 08/23 INR 1.63 08/24-- Resumed warfarin home dose 2 mg daily (08/24-p) Assessment & Plan (08/23/2024 12:11 PM CDT): - Secondary to nausea/vomiting/diarrhea while on warfarin INR > 9 y - s/p Vit K in [facility] - , continue to hold warfarin, bleeding precautions ordered Ordered vitamin K 2.5 mg oral once 08/22 INR more than 9 today, still having poor oral intake with diarrhea, will give IV vitamin K 10 mg once 08/23 Assessment & Plan (08/22/2024 12:03 PM CDT): - Secondary to nausea/vomiting/diarrhea while on warfarin INR > 9 y - s/p Vit K in [facility] - , continue to hold warfarin, bleeding precautions ordered Ordered vitamin K 2.5 mg oral once 08/22 Oral intake encouraged. Assessment & Plan (08/21/2024 9:15 PM CDT): - INR > 9 with hematuria noted recently - s/p Vit K in [facility] - Trend INR in AM, continue to [...] and diarrhea Nonrheumatic mitral valve regurgitation 06/22/19 25 Encounter for monitoring sotalol therapy 025 Assessment & Plan (06/09/2024 8:50 PM MUD TRUCKER): -Remains compliant sotalol -increase to 80 mg [...] 7 Assessment & Plan (03/16/2024 5:32 PM MUD TRUCKER): - H/H- 8.9 Monitor CBC closely Lactic acidosis 03/15/2024 Assessment & Plan (03/16/2024 5:29 PM MUD TRUCKER): Lactate 4 in [facility]. Reports normal PO intake. Improved to 2.3 after 1L IVF. Unclear etiology. Lactate lateralized on a.m. labs Hypomagnesemia 03/10/2024 Hypophosphatemia 02/11/2024 Dehydration 02/10/2024 Mood disorder 01/18/2024 Assessment & Plan (01/18/2024 8:13 PM CDT): Continue home citalopram Shortness of breath 01/18/2024 Assessment & Plan (03/16/2024 5:31 PM MUD TRUCKER): P/w SOB, fatigue, generalized weakness. Similar episodes in the past w/ unremarkable workup. In [facility], Tmax 99.4, satting well on RA, BP [...] negative to date -given cefe x1 in [facility]; hold off on further abx [...] 5:24 PM CDT): Established care with Dr. Flowers, [...] capecitabine Assessment & Plan (03/16/2024 5:32 PM MUD TRUCKER): Dx 11/2023 after presenting with jaundice in [...] resectable. Planned for port 12/01 and start [facility]+Cis+Abrax after, which will be postponed for 1wk [...] 10/24/2023 Assessment & Plan (03/15/2024 9:54 PM MUD TRUCKER): -cont betahistine 24mg tid (home supply) Assessment [...] 02/26/2023 Assessment & Plan (06/09/2024 8:48 PM MUD TRUCKER): -Status post dual-chamber pacemaker placement -Device interrogation [...] above Assessment & Plan (06/09/2024 8:49 PM MUD TRUCKER): -Status post radiofrequency catheter ablation with Dr. Richey -Remains compliant on apixaban and sotalol -Noted to have a sustained episode recently causing symptoms -Increase sotalol to 80 mg b.i.d. -Obtain an EKG after 3 doses to evaluate QT interval -Follow up in 6 months for 12 lead EKG, device interrogation, and clinic visit Assessment & Plan (03/15/2024 10:22 PM MUD TRUCKER): S/p PVI, CTI ablation 09/09/23. Follows w/ cardio onc. -cont sotalol -hold Eliquis starting 11 AM prior to planned outpatient ERCP 03/18 [...] AM CDT): Asymptomatic, device-detected AF. Low burden. [id number] = 2. --Continue apixaban 5 mg BID Lightheadedness 03/12/2022 Small bowel obstruction 12/23/2021 Sinus bradycardia 05/29/2021 Sick sinus syndrome 05/19/2021 Overview (05/19/2021): Added automatically from request for surgery [id number] Assessment & Plan (03/15/2024 9:53 PM MUD TRUCKER): -s/p PPM Assessment & Plan (01/21/2024 1:23 [...] device function. --Continue remote device f/u via [place] Bradycardia 05/16/2021 Advance care planning 03/22/2021 SYLVIE (obstructive sleep apnea) 06/20/2020 Assessment & Plan (03/16/2024 5:27 PM MUD TRUCKER): Continue CPAP qhs Assessment & Plan (01/21/2024 [...] needed Assessment & Plan (03/16/2024 5:27 PM MUD TRUCKER): Continue Amlodipine, Lisinopril, HCTZ Assessment & Plan [...] statin Assessment & Plan (03/16/2024 5:25 PM MUD TRUCKER): Continue statin Assessment & Plan (01/18/2024 7:01 [...] device function. --Continue remote device f/u quarterly Immunizations Immunization Administration Dates Next Due DT [...] Toxoid, Unspecified 09/11/2007 [facility]IVE 02/26/2022, 5,02/17/2013,05/06 Social History Tobacco Use Types Packs/Day Years Used Date Smoking Tobacco: Former Cigarettes 0.3 23 1 968 - 1991 Pipe Cigars Smokeless Tobacco: Never Tobacco Cessation:Counseling [...] doctor or pharmacy Sometimes 09/08/2024 [facility] Utilities Answer Date Recorded In the past 12 months has e [employer], gas, oil, or water [employer] [place] threatened to shut off services in your [...] How often do you attend chur or taoism services? More than 4 times per year 08/24/2024 Do you belong to any clubs o r organizations such as methodist groups, unions, fraternal or athletic groups, or [...] Date Recorded PHQ-2 Total Score 0 03/16/2024 [facility] - [...] any time in the past 12 m [facility], were you homeless or living in a care home (including now)? No 08/24/2024 Personal Safety Answer Date Recorded Have you ever been in or are you currently in a harmful physical or emotional relationship or is someone making you feel afraid or unsafe? Denies 08/21/2024 Sex and Gender Information Value Date Recorded Sex Assigned at Not on file Legal Sex Male 6:21 AM MUD TRUCKER Gender Identity Male 12/06/2019 4:39 PM CDT Sexual Orientation Straight 12/06/2019 4: 39 PM CDT Last Filed Vital Signs Vital Sign Reading [...] 10/15/2024 11:00 AM CDT Hospital Encounter [facility] Center [address] [place] [address] [phone] Chris Holcomb MD [address] [id number] History of biliary stent insertion 10/15/2024 11:00 AM CDT - 10/15/2024 11:30 AM CDT Surgery [address] [phone] Chris Holcomb MD [address] [address] ERCP Stent Exch INR mail lab at 0900 [[id number]] Scheduled Procedures Name Priority Associated Diagnoses Date/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) Medical Devices Implanted Type Area Enlisted Advisor Device Identifier Shelf Expiration Date Model / Serial / Lot [employer] Vascade Mvp 6-12fr Venous Closure [id number] - [id number] - [id number] Implanted:Qty : 1 on 09/09/2023 by Zane Richey III, MD at [facility] Collagen [employer] 06/20/2025 800-612C- 10U / [id number] 26A / [id number] [id number] [employer] Vascade Mvp 6-12fr Venous Closure [id number] - [id number] - [id number] Implanted:Qty : 1 on 09/09/2023 by Zane Richey III, MD at [facility] Collagen [employer] 06/20/2025 800-612C- 10U / [id number] 26A / [id number] 26A [employer] Vascade Mvp 6-12fr Venous Closure [id number] - [id number] - [id number] Implanted:Qty : 1 on 09/09/2023 by Zane Richey III, MD at [facility] Collagen [employer] 06/20/2025 800-612C- 10U / [id number] 26A / [id number] 26A [employer] 2088tc/58 Tendril Sts 6fr 58cm Is-1 Connector Active Fixation Bipolar Soft - [id number] - [id number] Implanted:Qty : 1 on 06/30/2021 by Zane Richey III, MD at [facility] Lead [employer] [id number] 03/05/2024 2088TC/58 / [id number] / [employer] 2088tc/52 Tendril Sts 6fr 52cm Is-1 Connector Active Fixation Bipolar Soft - [id number] - [id number] Implanted:Qty : 1 on 06/30/2021 by Zane Richey III, MD at [facility] Lead [employer] [id number] 03/05/2024 2088TC/52 / [id number] / [employer] [id number] Assurity Mri 84j60tw 2 Chamber Is-1 Connector Thk6mm Pacemaker - [id number] - [id number] Implanted:Qty : 1 on 06/30/2021 by Zane Richey III, MD at [facility] Pacemaker Left: Chest [facility] [employer] [place] [employer] [id number] 11/02/2022 [id number] / [id number] / [employer] Maame Advanix 7fr 10cm Rapid Exchange Temporary Taper Tip Thin Wall 2 [id number] - [id number] Implanted:Qty : 1 on 08/07/2024 by Sherry Alberts DO at [facility] Stent N/A: Bile Duct [employer] Maame 05/26/2026 [id number] / / [id number] [employer]ame Advanix 7fr 10cm Rapid Exchange Temporary Taper Tip Thin Wall 2 [id number] - [id number] Implanted:Qty : 1 on 08/07/2024 by Sherry Alberts DO at [facility] Stent N/A: Bile Duct [employer] Maame 05/26/2026 [id number] / / [id number] [employer] Excela Low Porfile Power Port 8fr 1.6mm 1 Lumen [id number] - [id number] Implanted:Qty : 1 on 12/09/2023 at [facility] [employer] 09/18/2028 [id number] / / [id number] Explanted Type Area Enlisted Advisor Device Identifier Shelf Expiration Date Model / Serial / Lot [employer] Farrell Flexi-Stent 5fr 7cm Small Pigtail Flexible .035in Stent 6554 - [id number] Implanted:Qty: 1 on 11/15/2023 by Chris Holcomb MD at [facility] Explanted:Qty: 1 on 01/13/2024 at [facility] Stent Pancreas [employer] 06/06/2028 [id number] / / [id number] Description:Not present upon start of procedure [employer] Cook Zimmon 7fr 10cm Biliary Double Pigtail Stent [id number] - [id number] Implanted:Qty: 1 on 11/15/2023 by Chris Holcomb MD at [facility] Explanted:Qty: 1 on 01/13/2024 by Sherry Alberts DO at [facility] Stent Bile Duct [employer] 07/08/2026 [id number] / / [id number] [employer] Maame Advanix 7fr 10cm Rapid Exchange Temporary Taper Tip Thin Wall 2 [id number] - [id number] Implanted:Qty: 1 on 01/13/2024 by Chris Holcomb MD at [facility] Explanted:Qty: 1 on 03/18/2024 by Chris Holcomb MD at [facility] Stent N/A: Bile Duct [employer] Maame [id number] 10/20/2025 [id number] / / [id number] [employer] Maame Advanix 7fr 10cm Rapid Exchange Temporary Taper Tip Thin Wall 2 [id number] - [id number] Implanted:Qty: 1 on 01/13/2024 by Sherry Alberts DO at [facility] Explanted:Qty: 1 on 03/18/2024 by Chris Holcomb MD at [facility] Stent N/A: Bile Duct [employer] Maame [id number] 11/18/2025 [id number] / / [id number] [employer] Maame Advanix 7fr 10cm Rapid Exchange Temporary Taper Tip Thin Wall 2 [id number] - [id number] Implanted:Qty: 1 on 03/18/2024 by Chris Holcomb MD at [facility] Explanted:Qty: 1 on 08/07/2024 by Sherry Alberts DO at [facility] Stent N/A: Bile Duct [employer] Maame 01/12/2026 [id number] / / [id number] [employer] Maame Advanix 7fr 12cm Rapid Exchange Temporary Taper Tip Thin Wall 2 [id number] - [id number] Implanted:Qty: 1 on 03/18/2024 by Chris Holcomb MD at [facility] Explanted:Qty: 1 on 08/07/2024 by Sherry Alberts DO at [facility] Stent N/A: Bile Duct [employer] Maame 01/06/2026 [id number] / / [id number] Description:Not present on t his exam [employer] Maame Advanix 7fr 10cm Rapid Exchange Temporary Taper Tip Thin Wall 2 [id number] - [id number] Implanted:Qty: 1 on 05/18/2024 by Chris Holcomb MD at [facility] Explanted:Qty: 1 on 08/07/2024 by Sherry Alberts DO at [facility] Stent N/A: Bile Duct [employer] Maame 03/17/2026 [id number] / / [id number] [employer]ame Advanix 7fr 10cm Rapid Exchange Temporary Taper Tip Thin Wall 2 [id number] - [id number] Implanted:Qty: 1 on 05/18/2024 by Chris Holcomb MD at [facility] Explanted:Qty: 1 on 08/07/2024 at [facility] Stent N/A: Bile Duct [employer] Maame 03/18/2026 [id number] / / [id number] Description:Not present on t his exam [employer] Zimmon Od7 Fr L15 Cm Tapered Tip 2 Pigtail Curve Stent Biliary Polyethylene Sterile Disposable Purple [id number] - [id number] Implanted:Qty: 1 on 11/15/2023 by Chris Holcomb MD at [facility] Explanted:Qty: 1 on 01/13/2024 by Sherry Alberts DO at [facility] Bile Duct [employer] 07/03/2026 [id number] / / [id number] Procedures Procedure Name Priority Date/Time Associated Diagnosis [...] (HCC) HEMOGLOBIN A1C Routine 06/22/2024 2:10 PM MUD TRUCKER Moderate aortic regurgitation Nonrheumatic mitral valve regurgitation Abnormal finding of blood chemistry, unspecified HEPATITIS C ANTIBODY Routine 06/08/2024 7:28 AM MUD TRUCKER Hilar cholangiocarcinoma (HCC) LIPID PANEL Routine 06/08/2024 7:28 AM MUD TRUCKER Hilar cholangiocarcinoma (HCC) from Last 3 Months [...] chest. Electronically signed by: Cheri Craig M.D. [facility] Gabriel Posey MD [facility] [place] PROCEDURES Final Res ult * eGFR [...] was last reviewed 2021. Testing performed by: [facility], [address] [place] [address] Blood 10/07/2024 9:11 AM CDT 10/07/2024 9:57 AM CDT us Agustina Li MD PhD LAB BLOOD ORDERABLES Final Result [facility] [address] Department [place] [address] * (ABNORMAL) Differential, auto (10/07/2024 9:11 AM CDT) Neutrophil abs 6.76(H) 1.50 - 6.50 K/cumm Comment:Testing performed by : [facility], [facility] [place] [facility], [address] [place] [address] Imm gran abs 0.06 0.00 - 0.10 K/cumm STAN COREYPATSY Comment:Testing performed by : [facility], [facility] [place] [facility], [address] [place] [address] Lymphocyte abs 0.76(L) 0.80 - 3.30 K/cumm STAN STAPLETON Comment:Testing performed by : [facility], [facility] [place] [facility], [address] [place] [address] Monocyte abs 0.82(H) 0.20 - 0.80 K/cumm STAN STAPLETON Comment:Testing performed by : [facility], [facility] [place] [facility], [address] [place] [address] Eosinophil abs 0.04 0.00 - 0.50 K/cumm STAN STAPLETON Comment:Testing performed by : [facility], [facility] [place] [facility], [address] [place] [address] Basophil abs 0.04 0.00 - 0.10 K/cumm CERNER BJWCH Comment:Testing performed by : [facility], [facility] [place] [facility], [address] [place] [address] Neutrophil pct 79.6 % CERNER BJWCH Comment: Interpretive Data Percent cell count reference ranges are not reported, since discordance with absolute values may lead to misinterpretation of CBC data. Current Interpretive Data was last revised on 2017. Testing performed by: [facility], [facility] [facility] [place] [facility], [address] [place] [address] Imm gran pct 0.7 % CERNER BJWCH Comment: Interpretive Data Percent cell count reference ranges are not reported, since discordance with absolute values may lead to misinterpretation of CBC data. Current Interpretive Data was last revised on 2017. Testing performed by: [facility], [facility] [place] [facility], [address] [place] [address] Lymphocyte pct 9.0 % CERNER BJWCH Comment: Interpretive Data Percent cell count reference ranges are not reported, since discordance with absolute values may lead to misinterpretation of CBC data. Current Interpretive Data was last revised on 2017. Testing performed by: [facility], [facility] [place] [facility], [address] [place] [address] Monocyte pct 9.7 % CERNER BJWCH Comment: Interpretive Data Percent cell count reference ranges are not reported, since discordance with absolute values may lead to misinterpretation of CBC data. Current Interpretive Data was last revised on 2017. Testing performed by: [facility], [facility] [place] [facility], [address] [place] [address] Eosinophil pct 0.5 % CERNER BJWCH Comment: Interpretive Data Percent cell count reference ranges are not reported, since discordance with absolute values may lead to misinterpretation of CBC data. Current Interpretive Data was last revised on 2017. Testing performed by: [facility], [facility] [place] [facility], [address] [place] [address] Basophil pct 0.5 % STAN STAPLETON Comment: Interpretive Data Percent cell count reference ranges are not reported, since discordance with absolute values may lead to misinterpretation of CBC data. Current Interpretive Data was last revised on 2017. Testing performed by: [facility], [address] [place] [address] Blood 10/07/2024 9:11 AM CDT 10/07/2024 9:13 AM CDT us Agustina Li MD PhD LAB BLOOD ORDERABLES Final Result STAN ALVAREZ [address] [facility]. Department [place] [address] * (ABNORMAL) CBC with auto differential (10/07/2024 9:11 AM CDT) WBC 8.48 3.80 - 9.90 K/cumm Comment:Testing performed by : [place] [address], [address] [place] [address] Hgb 10.4(L) 13.0 - 17.5 g/dL STAN STAPLETON Comment:Testing performed by : [place] [address], [address] [place] [address] Hct 32.4(L) 38.9 - 50.3 % STAN STAPLETON Comment:Testing performed by : [facility] 2, [address] [place] [address] Plt 212 150 - 400 K/cumm STAN STAPLETON Comment:Testing performed by : [place] [address], [address] [place] [address] MPV 9.5 9.1 - 12.3 fL STAN [place]LETON Comment:Testing performed by : [place] [address], [address] [place] [address] RBC 3.25(L) 4.30 - 5.80 M/cumm [facility] Comment:Testing performed by : [facility], [facility] [place] [facility], [address] [place] [address] MCV 99.7(H) 81.3 - 96.4 fL [facility] Comment:Testing performed by : [facility], [facility] [place] [facility], [address] [place] [address] MCH 32.0 27.1 - 33.3 pg [facility] Comment:Testing performed by : [facility], [facility] [place] [facility], [address] [place] [address] MCHC 32.1(L) 32.3 - 35.7 g/dL [facility] Comment:Testing performed by : [facility], [facility] [place] [facility], [address] [place] [address] RDW CV 16.2(H) 11.1 - 14.9 % [facility] Comment:Testing performed by : [facility] 2, [address] [place] [address] RDW SD 59.5(H) 35.7 - 48.1 fL [facility] Comment:Testing performed by : [facility] 2, [address] [place] [address] ANC Prelim 6.76(H) 1.50 - 6.50 K/cumm [facility] Comment: Interpretive Data The rapid ANC is a preliminary automated count and may vary from the final ANC (Neut Abs) reported in the WBC differential that follows. Current interpretive data was last revised 2024. Testing performed by: [facility], [facility] [place] [facility], [address] [place] [address] Blood 10/07/2024 9:11 AM CDT 10/07/2024 9:13 AM CDT us Agustina Li MD PhD LAB BLOOD ORDERABLES Final Result [facility] [address] [facility]. Department [place] [address] * (ABNORMAL) Cancer antigen 19-9 (10/07/2024 9:11 AM CDT) CA 19-9 ag 227.0(H) 0.0 - 35.0 units/mL Comment: Interpretive Data The Dereck CA 19-9 assay procedure was used. Results from different manufacturers or methods may not be comparable. Serial testing should be performed using the same method. Testing performed by: [facility], [address] [place] [address]., [address] Blood 10/07/2024 9:11 AM CDT 10/07/2024 10:24 AM CDT Agustina Li MD PhD LAB BLOOD ORDERABLES Final Result Performing Organization Address [facility]/State/[facility] Co de Phone Number [facility] [address] [facility]. Department [place] [address] * (ABNORMAL) Protime-INR (10/07/2024 9:11 AM CDT) PT 16.4(H) 9.7 - 13.0 sec Comment:Testing performed by : [facility], [address] [place] [address] INR 1.51(H) 0.90 - 1.20 STAN ALVAREZCH Comment: Interpretive data Oral anticoagulant therapeutic ranges: Venous thromboembolism prophylaxis or treatment: 2.0-3.0 CARDIOLOGY Standard range: 2.0-3.0 High-intensity range: 2.5-3.5 Refer to indication-specific guidelines for appropriate target ranges for prosthetic heart valve replacement. Current interpretive data was last revised on 2019. Testing performed by: [facility], [address] [place] [address] Blood 10/07/2024 9:11 AM CDT 10/07/2024 9:38 AM CDT Agustina Li MD PhD LAB BLOOD ORDERABLES Final Result [facility] [address]. Department [place] [address] * (ABNORMAL) Comprehensive metabolic panel (10/07/2024 9:11 AM CDT) Sodium 131(L) 135 - 145 mmol/L Comment:Testing performed by : [facility], [address], [place] [address] Potassium, pl 4.1 3.3 - 4.9 mmol/L CERKERI [facility] Comment:Testing performed by : [facility], [address], [place] [address] Chloride 96(L) 97 - 110 mmol/L [facility]ERI [facility] Comment:Testing performed by : [facility], [address], [place] [address] CO2 22 22 - 32 mmol/L [facility]ER [facility] Comment:Testing performed by : [facility], [address], [place] [address] Anion gap 13 2 - 15 mmol/L CERNER [facility] Comment:Testing performed by : [facility], [address], [place] [address] BUN 33(H) 6 - 25 mg/dL [facility] Comment:Testing performed by : [facility], [address], [place] [address] Creatinine 0.90 0.80 - 1.30 mg/dL CERNER [facility] Comment:Testing performed by : [facility], [address], [place] [address] Glucose 171 70 - 199 mg/dL CERNER [facility] Comment: Interpretive Data Fasting glucose >/= 126 [...] was last revised 2022. Testing performed by: [facility], [address], [place] [address] Calcium 9.0 8.5 - 10.3 mg/dL CERNER BJWCH Comment:Testing performed by : [facility], [address], [place] [address] Bilirubin, total 0.5 0.1 - 1.2 mg/dL CERNER BJWCH Comment:Testing performed by : [facility], [address], [place] [address] Protein, pl 7.4 6.5 - 8.5 g/dL CERNER BJWCH Comment:Testing performed by : [facility], [address], [place] [address] Albumin 3.9 3.5 - 5.0 g/dL CERNER BJWCH Comment:Testing performed by : [facility], [address], [place] [address] Alk phos 423(H) 40 - 130 Units/L CERNER BJWCH Comment:Testing performed by : [facility], [address], [place] [address] ALT 35 7 - 55 Units/L CERNER BJWCH Comment:Testing performed by : [facility], [address], [place] [address] AST 37 10 - 50 Units/L CERNER BJWCH Comment:Testing performed by : [facility], [address], [place] [address] Blood 10/07/2024 9:11 AM CDT 10/07/2024 9:38 AM CDT us Agustina Li MD PhD LAB BLOOD ORDERABLES Edited Result - Final [facility] [address] Department [place] [address] * (ABNORMAL) Protime-INR (09/30/2024 2:30 PM CDT) INR 1.3(H) [facility] Comment: Reference Range 0.9-1.1 Moderate-intensity Warfarin Therapy 2.0-3.0 Higher-intensity Warfarin Therapy 3.0-4.0 PT 13.7(H) 9.0 - 11.5 sec [facility] Comment: For additional information, please refer to http://[place]ushky.Hitwise/faq/SAV403 (This link is being provided for informational/ educational purposes only.) Blood 09/30/2024 2:30 PM CDT 09/30/2024 2:32 PM CDT Narrative [facility] - 10/01/2024 12:17 AM CDT FASTING:NO FASTING: NO Result [facility] Chris Hart MD LAB BLOOD ORDERABLES Final Result Performing Organization Address [facility] de Phone Number [facility] [address] [place] [address] * (ABNORMAL) Protime-INR (09/23/2024 11:21 AM CDT) INR 1.3(H) [facility] Comment: Reference Range 0.9-1.1 Moderate-intensity Warfarin Therapy 2.0-3.0 Higher-intensity Warfarin Therapy 3.0-4.0 PT 14.0(H) 9.0 - 11.5 sec [facility] Comment: For additional information, please refer to http://Tushky.Hitwise/faq/JPW655 (This link is being provided for informational/ educational purposes only.) Blood 09/23/2024 11:2 1 AM CDT 09/23/2024 11:21 AM CDT Chris Hart MD LAB BLOOD ORDERABLES Final Result Performing Organization Address [facility] de Phone Number [facility] [address] [place] [address] * eGFR (09/16/2024 8:08 AM CDT) eGFR [...] was last reviewed 2021. Testing performed by: [facility], [address] [place] [address] Blood 09/16/2024 8:08 AM CDT 09/16/2024 8:48 AM CDT us Gorge Vaughan MD PhD LAB BLOOD ORDERABLES Final Result [facility] [address] [facility] Department of Laboratories [place], [place] [id number] * (ABNORMAL) Differential, auto (09/16/2024 8:08 AM CDT) Pathologist [facility] Neutrophil abs 5.67 1.50 - 6.50 K/cumm Comment:Testing performed by : [facility], [facility], [address] [place] [address] Imm gran abs 0.15(H) 0.00 - 0.10 K/cumm STAN BJWCH Comment:Testing performed by : [facility], [facility] [place] [facility], [address] [place] [address] Lymphocyte abs 0.47(L) 0.80 - 3.30 K/cumm CERNER BJWCH Comment:Testing performed by : [facility], [facility] [place] [facility], [address], [place] [address] Monocyte abs 0.64 0.20 - 0.80 K/cumm CERNER BJWCH Comment:Testing performed by : [facility], [facility] [place] [facility], [address] [place] [address] Eosinophil abs 0.03 0.00 - 0.50 K/cumm CERNER BJWCH Comment:Testing performed by : [facility], [facility] [place] [facility], [address] [place] [address] Basophil abs 0.01 0.00 - 0.10 K/cumm CERNER BJWCH Comment:Testing performed by : [facility], [facility] [place] [facility], [address] [place] [address] Neutrophil pct 81.4 % CERNER BJWCH Comment: Interpretive Data Percent cell count reference ranges are not reported, since discordance with absolute values may lead to misinterpretation of CBC data. Current Interpretive Data was last revised on 2017. Testing performed by: [facility], [facility] [place] [facility], [address] [place] [address] Imm gran pct 2.2 % CERNER BJWCH Comment: Interpretive Data Percent cell count reference ranges are not reported, since discordance with absolute values may lead to misinterpretation of CBC data. Current Interpretive Data was last revised on 2017. Testing performed by: [facility], [facility] [place] [facility], [address], [place] [address] Lymphocyte pct 6.7 % CERNER BJWCH Comment: Interpretive Data Percent cell count reference ranges are not reported, since discordance with absolute values may lead to misinterpretation of CBC data. Current Interpretive Data was last revised on 2017. Testing performed by: [facility], [facility] [place] [facility], [address] [place] [address] Monocyte pct 9.2 % CERNER BJWCH Comment: Interpretive Data Percent cell count reference ranges are not reported, since discordance with absolute values may lead to misinterpretation of CBC data. Current Interpretive Data was last revised on 2017. Testing performed by: [facility] 2, [address] [place] [address] Eosinophil pct 0.4 % STAN STAPLETON Comment: Interpretive Data Percent cell count reference ranges are not reported, since discordance with absolute values may lead to misinterpretation of CBC data. Current Interpretive Data was last revised on 2017. Testing performed by: [facility] 2, [address] [place] [address] Basophil pct 0.1 % STAN STAPLETON Comment: Interpretive Data Percent cell count reference ranges are not reported, since discordance with absolute values may lead to misinterpretation of CBC data. Current Interpretive Data was last revised on 2017. Testing performed by: [place] [address] [place] [address] Blood 09/16/2024 8:08 AM CDT 09/16/2024 8:17 AM CDT us Gorge Vaughan MD PhD LAB BLOOD ORDERABLES Final Result [facility] [address] [facility]. Department [place] [address] * (ABNORMAL) CBC with auto differential (09/16/2024 8:08 AM CDT) WBC 6.97 3.80 - 9.90 K/cumm Comment:Testing performed by : [facility] 2, [address] [place] [address] Hgb 8.4(L) 13.0 - 17.5 g/dL STAN STAPLETON Comment:Testing performed by : [facility] 2, [address] [place] [address] Hct 25.2(L) 38.9 - 50.3 % STAN STAPLETON Comment:Testing performed by : [facility] 2, [address] [place] [address] Plt 102(L) 150 - 400 K/cumm CERNER BJWCH Comment:Testing performed by : [place] [address], [address] [place] [address] MPV 10.1 9.1 - 12.3 fL CERNER BJWCH Comment:Testing performed by : [place] [address] [place] [address] RBC 2.39(L) 4.30 - 5.80 M/cumm CERNER BJWCH Comment:Testing performed by : [place] [address] [place] [address] MCV 105.4(H) 81.3 - 96.4 fL CERKERI BJWCH Comment:Testing performed by : [place] [address] [place] [address] MCH 35.1(H) 27.1 - 33.3 pg CERNER BJWCH Comment:Testing performed by : [place] [address] [place] [address] MCHC 33.3 32.3 - 35.7 g/dL CERNER BJWCH Comment:Testing performed by : [place] [address] [place] [address] RDW CV 17.0(H) 11.1 - 14.9 % CERNER BJWCH Comment:Testing performed by : [place] [address], [place] [address] RDW SD 66.4(H) 35.7 - 48.1 fL CERNER BJWCH Comment:Testing performed by : [place] [address], [address] [place] [address] ANC Prelim 5.67 1.50 - 6.50 K/cumm CERNER BJWCH Comment: Interpretive Data The rapid ANC is a preliminary automated count and may vary from the final ANC (Neut Abs) reported in the WBC differential that follows. Current interpretive data was last revised 2024. Testing performed by: [facility], [facility] [place] [facility], [address], [place] [address] Blood 09/16/2024 8:08 AM CDT 09/16/2024 8:17 AM CDT Gorge Vaughan MD PhD LAB BLOOD ORDERABLES Final Result Performing Organization Address City/[facility] Co de Phone Number [facility] [address] [facility]. [place] [address] * (ABNORMAL) Cancer antigen 19-9 (09/16/2024 8:08 AM CDT) CA 19-9 ag 152.0(H) 0.0 - 35.0 units/mL Comment: Interpretive Data The Dereck CA 19-9 assay procedure was used. Results from different manufacturers or methods may not be comparable. Serial testing should be performed using the same method. Testing performed by: [facility], [address] [place] [address]., [address] Blood 09/16/2024 8:08 AM CDT 09/16/2024 1:03 PM CDT Gorge Vaughan MD PhD LAB BLOOD ORDERABLES Final Result Performing Organization Address City/[facility] Co de Phone Number STAN BJWCH [address] [facility]. [place] [address] * (ABNORMAL) Protime-INR (09/16/2024 8:08 AM CDT) PT 16.8(H) 9.7 - 13.0 sec Comment:Testing performed by : [facility], [address] [facility], [place] [address] INR 1.54(H) 0.90 - 1.20 STAN BJWCH Comment: Interpretive data Oral anticoagulant therapeutic ranges: Venous thromboembolism prophylaxis or treatment: 2.0-3.0 CARDIOLOGY Standard range: 2.0-3.0 High-intensity range: 2.5-3.5 Refer to indication-specific guidelines for appropriate target ranges for prosthetic heart valve replacement. Current interpretive data was last revised on 2019. Testing performed by: [facility], [address] [place] [address] Blood 09/16/2024 8:08 AM CDT 09/16/2024 8:48 AM CDT us Chris Hart MD LAB BLOOD ORDERABLES Final Result [facility] [address] Department [place] [address] * (ABNORMAL) Comprehensive metabolic panel (09/16/2024 8:08 AM CDT) Sodium 134(L) 135 - 145 mmol/L Comment:Testing performed by : [facility], [address], [place] [address] Potassium, pl 3.5 3.3 - 4.9 mmol/L [facility] Comment:Testing performed by : [facility], [address], [place] [address] Chloride 100 97 - 110 mmol/L CERKERI BJW Comment:Testing performed by : [facility], [address] [place] [address] CO2 23 22 - 32 mmol/L CERKERI BJWCH Comment:Testing performed by : [facility], [address] [place] [address] Anion gap 11 2 - 15 mmol/L CERKERI BJWCH Comment:Testing performed by : [facility], [address] [place] [address], [place] [address] BUN 22 6 - 25 mg/dL CERNER BJWCH Comment:Testing performed by : [facility], [address] [place] [address] Creatinine 0.70(L) 0.80 - 1.30 mg/dL CERNER BJWCH Comment:Testing performed by : [facility], [address], [place] [address] Glucose 127 70 - 199 mg/dL CERNER [...] was last revised 2022. Testing performed by: [facility], [address], [place] [address] Calcium 8.3(L) 8.5 - 10.3 mg/dL CERNER BJWCH Comment:Testing performed by : [facility], [address], [place] [address] Bilirubin, total 0.6 0.1 - 1.2 mg/dL CERNER BJWCH Comment:Testing performed by : [facility], [address], [place] [address] Protein, pl 5.8(L) 6.5 - 8.5 g/dL CERNER BJWCH Comment:Testing performed by : [facility], [address], [place] [address] Albumin 2.9(L) 3.5 - 5.0 g/dL CERNER BJWCH Comment:Testing performed by : [facility], [address], [place] [address] Alk phos 388(H) 40 - 130 Units/L CERNER BJWCH Comment:Testing performed by : [facility], [address], [place] [address] ALT 36 7 - 55 Units/L CERNER BJWCH Comment:Testing performed by : [facility], [address], [place] [address] AST 46 10 - 50 Units/L CERNER BJWCH Comment:Testing performed by : [facility], [address] [place] [address] Blood 09/16/2024 8:08 AM CDT 09/16/2024 8:48 AM CDT Gorge Vaughan MD PhD LAB BLOOD ORDERABLES Final Result Performing Organization Address City/[facility]/ZIP Co de Phone Number [facility] [address] [facility]. Department of Laboratories [place] [phone] * COPY(IES) SENT TO: (09/11/2024 10:40 AM CDT) COPY(IES) SENT TO: [facility] Comment: SITEMAN - COPY TO ACCOUNT [address] [facility] [place] [address] 09/11/2024 10:4 0 AM CDT 09/11/2024 10:40 AM CDT Narrative [facility] - 09/15/2024 3:41 PM CDT FASTING:NO FASTING: NO us Agustina Li MD PhD LAB BLOOD ORDERABLES Final Result Performing Organization Address City/[facility]/ZIP Co de Phone Number [facility] * (ABNORMAL) CBC with auto differential [...] [facility] Monocytes 5 % [facility] Eosinophils 0 % [facility] Basophils 0 % [facility] Comment [facility] Comment: ERYTHROCYTES: THE ERYTHROCYTES ARE MACROCYTIC AND [...] SMEAR WAS REVIEWED BY: MIGUEL BURNETT [place]. [place] [id number] [address] [place] [id number] CLIA ID NO. [id number] Blood 09/11/2024 10:4 0 AM CDT 09/11/2024 10:40 AM CDT [facility] - 09/15/2024 3:41 PM CDT FASTING:NO FASTING: NO Agustina Li MD PhD LAB BLOOD ORDERABLES Final Result Performing Organization Address [facility] de Phone Number [facility] [address] [place] [address] * (ABNORMAL) Protime-INR (09/11/2024 10:40 AM CDT) INR 1.6(H) [place] Comment: Reference Range 0.9-1.1 Moderate-intensity Warfarin Therapy 2.0-3.0 Higher-intensity Warfarin Therapy 3.0-4.0 PT 17.0(H) 9.0 - 11.5 sec [place] Comment: For additional information, please refer to http://education.Hitwise/faq/VFN542 (This link is being provided for informational/ educational purposes only.) Blood 09/11/2024 10:4 0 AM CDT 09/11/2024 10:40 AM CDT Narrative [facility] - 09/15/2024 3:41 PM CDT FASTING:NO FASTING: NO Agustina Li MD PhD LAB BLOOD ORDERABLES Final Result Performing Organization Address [facility] Phone Number [facility] [address] [place] [address] * (ABNORMAL) Comprehensive metabolic panel (09/11/2024 10:40 AM CDT) Glucose 105 65 - 139 mg/dL [facility] Comment: Non-fasting reference interval BUN 22 7 - 25 mg/dL [place] Creatinine 0.69(L) 0.70 - 1.28 mg/dL [facility] eGFR 97 > OR = 60 mL/min/1.7 3m2 [place] BUN/creat ratio 32(H) 6 - 22 (calc) [place] Sodium 132(L) 135 - 146 mmol/L [place] Potassium, pl 3.9 3.5 - 5.3 mmol/L [place] Chloride 99 98 - 110 mmol/L [facility] [employer] [facility] [place] CO2 27 20 - 32 mmol/L [facility] Calcium 7.6(L) 8.6 - 10.3 mg/dL [facility] [employer] [facility] [place] Protein, sr 5.0(L) 6.1 - 8.1 g/dL [facility] Albumin 2.6(L) 3.6 - 5.1 g/dL [facility] [facility] [place] GLOBULIN 2.4 1.9 - 3.7 g/dL (calc) [facility] Alb/glob ratio 1.1 1.0 - 2.5 (calc) [facility] [employer] [facility] [place] Bilirubin, total 0.8 0.2 - 1.2 mg/dL [facility] [facility] [place] Alk phos 204(H) 35 - 144 U/L [place] [facility] [employer] [facility] AST 40(H) 10 - 35 U/L [facility] [place] ALT (SGPT) 25 9 - 46 U/L [facility] Blood 09/11/2024 10:4 0 AM CDT 09/11/2024 10:40 AM CDT Narrative [facility] - 09/15/2024 3:41 PM CDT FASTING:NO FASTING: NO Agustina Li MD PhD LAB BLOOD ORDERABLES Final Result [facility] CenterLaz[facility] [address] [place] [address] * SCAN - LABS (09/11/2024) Provider Scanning Edited Result - Final * [...] was last reviewed 2021. Testing performed by: [facility], [address] [place] [address] Blood 09/09/2024 7:32 AM CDT 09/09/2024 8:19 AM CDT us Gorge Vaughan MD PhD LAB BLOOD ORDERABLES Final Result [facility] [address] Department [place] [address] * (ABNORMAL) Differential, auto (09/09/2024 7:32 AM CDT) Neutrophil abs 4.58 1.50 - 6.50 K/cumm Comment:Testing performed by : [facility], [facility] [place], [address] [place] [address] Imm gran abs 0.05 0.00 - 0.10 K/cumm STAN [place]TON Comment:Testing performed by : [facility] 2, [address] [place] [address] Lymphocyte abs 0.25(L) 0.80 - 3.30 K/cumm STAN [place] Comment:Testing performed by : [facility] 2, [address] [place] [address] Monocyte abs 0.51 0.20 - 0.80 K/cumm STAN [place]TON Comment:Testing performed by : [facility] 2, [address] [place] [address] Eosinophil abs 0.00 0.00 - 0.50 K/cumm CERNER BJWCH Comment:Testing performed by : [facility], [facility], [address] [place] [address] Basophil abs 0.00 0.00 - 0.10 K/cumm CERNER BJWCH Comment:Testing performed by : [facility], [facility], [address] [place] [address] Neutrophil pct 85.0 % CERNER BJWCH Comment: Interpretive Data Percent cell count reference ranges are not reported, since discordance with absolute values may lead to misinterpretation of CBC data. Current Interpretive Data was last revised on 2017. Testing performed by: [facility], [facility] [place] [facility], [address] [place] [address] Imm gran pct 0.9 % CERNER BJWCH Comment: Interpretive Data Percent cell count reference ranges are not reported, since discordance with absolute values may lead to misinterpretation of CBC data. Current Interpretive Data was last revised on 2017. Testing performed by: [facility], [facility] [place] [facility], [address] [place] [address] Lymphocyte pct 4.6 % CERNER BJWCH Comment: Interpretive Data Percent cell count reference ranges are not reported, since discordance with absolute values may lead to misinterpretation of CBC data. Current Interpretive Data was last revised on 2017. Testing performed by: [facility], [facility] [place] [facility], [address] [place] [address] Monocyte pct 9.5 % CERNER BJWCH Comment: Interpretive Data Percent cell count reference ranges are not reported, since discordance with absolute values may lead to misinterpretation of CBC data. Current Interpretive Data was last revised on 2017. Testing performed by: [facility], [facility] [place] [facility], [address] [place] [address] Eosinophil pct 0.0 % CERNER BJWCH Comment: Interpretive Data Percent cell count reference ranges are not reported, since discordance with absolute values may lead to misinterpretation of CBC data. Current Interpretive Data was last revised on 2017. Testing performed by: [facility] 2, [address] [place] [address] Basophil pct 0.0 % STAN STAPLETON Comment: Interpretive Data Percent cell count reference ranges are not reported, since discordance with absolute values may lead to misinterpretation of CBC data. Current Interpretive Data was last revised on 2017. Testing performed by: [facility] 2, [address] [place] [address] Blood 09/09/2024 7:32 AM CDT 09/09/2024 7:50 AM CDT us Gorge Vaughan MD PhD LAB BLOOD ORDERABLES Final Result STAN [place] [address] [facility]. Department [place] [address] * (ABNORMAL) CBC with auto differential (09/09/2024 7:32 AM CDT) WBC 5.39 3.80 - 9.90 K/cumm Comment:Testing performed by : [facility] 2, [address] [place] [address] Hgb 8.2(L) 13.0 - 17.5 g/dL STAN [place]LETON Comment:Testing performed by : [facility] 2, [address] [place] [address] Hct 24.8(L) 38.9 - 50.3 % STAN [place]TON Comment:Testing performed by : [facility] 2, [address] [place] [address] Plt 62(L) 150 - 400 K/cumm STAN [place]TON Comment:Testing performed by : [facility] 2, [address] [place] [address] MPV 10.4 9.1 - 12.3 fL STAN [place]TON Comment:Testing performed by : [facility] 2, [address] [place] [address] RBC 2.30(L) 4.30 - 5.80 M/cumm STAN BJWCH Comment:Testing performed by : [facility], [facility] [place] [facility], [address] [place] [address] MCV 107.8(H) 81.3 - 96.4 fL STAN BJWCH Comment:Testing performed by : [place] [address], [address] [place] [address] MCH 35.7(H) 27.1 - 33.3 pg CERKERI BJWCH Comment:Testing performed by : [place] [address], [address] [place] [address] MCHC 33.1 32.3 - 35.7 g/dL STAN BJWCH Comment:Testing performed by : [facility] 2, [address] [place] [address] RDW CV 17.3(H) 11.1 - 14.9 % STAN BJWCH Comment:Testing performed by : [place] [address], [address] [place] [address] RDW SD 70.0(H) 35.7 - 48.1 fL STAN BJWCH Comment:Testing performed by : [facility] 2, [address] [place] [address] ANC Prelim 4.58 1.50 - 6.50 K/cumm STAN BJWCH Comment: Interpretive Data The rapid ANC is a preliminary automated count and may vary from the final ANC (Neut Abs) reported in the WBC differential that follows. Current interpretive data was last revised 2024. Testing performed by: [place] [address], [address] [place] [address] Morphologic Screen Results confirmed by manual morphology review. STAN BJWCH Comment:Testing performed by : [facility] 2, [address] [place] [address] Blood 09/09/2024 7:32 AM CDT 09/09/2024 7:50 AM CDT Gorge Vaughan MD PhD LAB BLOOD ORDERABLES Edited Result - Final Performing Organization Address [facility] Co de Phone Number STAN COREYWCH [address] [facility] [place] [address] * (ABNORMAL) Cancer antigen 19-9 (09/09/2024 7:32 AM CDT) CA 19-9 ag 95.4(H) 0.0 - 35.0 units/mL Comment: Interpretive Data The Dereck CA 19-9 assay procedure was used. Results from different manufacturers or methods may not be comparable. Serial testing should be performed using the same method. Testing performed by: [facility], [address] [place] [address]., [address] Blood 09/09/2024 7:32 AM CDT 09/09/2024 10:24 AM CDT Gorge Vaughan MD PhD LAB BLOOD ORDERABLES Final Result Performing Organization Address [facility] Co de Phone Number STAN COREYWCH [address] [address] [facility]. [facility] [place] [address] * (ABNORMAL) Protime-INR (09/09/2024 7:32 AM CDT) PT 22.0(H) 9.7 - 13.0 sec Comment:Testing performed by : [facility], [address] [facility] [place] [address] INR 2.01(H) 0.90 - 1.20 [facility] Comment: Interpretive data Oral anticoagulant therapeutic ranges: Venous thromboembolism prophylaxis or treatment: 2.0-3.0 CARDIOLOGY Standard range: 2.0-3.0 High-intensity range: 2.5-3.5 Refer to indication-specific guidelines for appropriate target ranges for prosthetic heart valve replacement. Current interpretive data was last revised on 2019. Testing performed by: [facility], [address] [place] [address] Blood 09/09/2024 7:32 AM CDT 09/09/2024 8:19 AM CDT us Chris Hart MD LAB BLOOD ORDERABLES Final Result [facility] [address] Department [place] [address] * (ABNORMAL) Comprehensive metabolic panel (09/09/2024 7:32 AM CDT) Sodium 132(L) 135 - 145 mmol/L Comment:Testing performed by : [facility], [address], [place] [address] Potassium, pl 3.6 3.3 - 4.9 mmol/L CERKERI BJW Comment:Testing performed by : [facility], [address] [place] [address] Chloride 96(L) 97 - 110 mmol/L CERKERI BJWCH Comment:Testing performed by : [facility], [address] [place] [address] CO2 27 22 - 32 mmol/L CERNER BJWCH Comment:Testing performed by : [facility], [address] [place] [address] Anion gap 9 2 - 15 mmol/L CERKERI BJWCH Comment:Testing performed by : [facility], [address] [place] [address] BUN 17 6 - 25 mg/dL CERNER BJWCH Comment:Testing performed by : [facility], [address] [place] [address] Creatinine 0.80 0.80 - 1.30 mg/dL CERNER BJWCH Comment:Testing performed by : [facility], [address] [place] [address] Glucose 117 70 - 199 mg/dL CERNER [...] was last revised 2022. Testing performed by: [facility], [address], [place] [address] Calcium 7.7(L) 8.5 - 10.3 mg/dL CERNER BJWCH Comment:Testing performed by : [facility], [address], [place] [address] Bilirubin, total 0.7 0.1 - 1.2 mg/dL CERNER BJWCH Comment:Testing performed by : [facility], [address], [place] [address] Protein, pl 5.1(L) 6.5 - 8.5 g/dL CERNER BJWCH Comment:Testing performed by : [facility], [address], [place] [address] Albumin 2.6(L) 3.5 - 5.0 g/dL CERNER BJWCH Comment:Testing performed by : [facility], [address], [place] [address] Alk phos 227(H) 40 - 130 Units/L CERNER BJWCH Comment:Testing performed by : [facility], [address], [place] [address] ALT 28 7 - 55 Units/L CERNER BJWCH Comment:Testing performed by : [facility], [address], [place] [address] AST 50 10 - 50 Units/L CERNER BJWCH Comment:Testing performed by : [facility], [address], [place] [address] Blood 09/09/2024 7:32 AM CDT 09/09/2024 8:19 AM CDT Gorge Vaughan MD PhD LAB BLOOD ORDERABLES Edited Result - Final Performing Organization Address City/[facility]/ZIP Co de Phone Number STAN [facility] [address] [facility]. Department [place] [address] * ECG 12 lead (09/07/2024 11:34 AM CDT) Pathologist [facility] Ventricular Rate EKG/Min 65 BPM [facility] Atrial Rate 65 BPM [facility] WI-Interval (MSEC) 206 ms [facility] QRS-Interval (MSEC) 96 ms [facility] QT-Interval (MSEC) 506 ms [facility] QTc 526 ms [facility] P [place] 18 degrees [facility] R [place] -27 degrees [facility] T [place] 241 degrees [facility] Diagnosis Atrial-paced rhythm Minimal voltage criteria for LVH, may be normal variant ( R in aVL ) T wave abnormality, consider inferior ischemia T wave abnormality, consider anterolateral ischemia Prolonged QT Abnormal ECG Confirmed by Georges Smith MD ([id number]) on 09/08/2024 4:32:43 PM [facility] 09/07/2024 11:3 4 AM CDT 09/08/2024 4:32 PM CDT us Sharron Amador MD ECG ORDERABLES Final Result Performing Organization Address [facility] Co de Phone Number [facility] * XR Chest 1 View (09/07/2024 8:01 [...] leads. Electronically signed by: Ulisses Sifuentes M.D. us Sharron Amador MD IMG XR PROCEDURES Final Result * Critical Result Callback Chemistry (09/07/2024 5:39 AM CDT) Date Notified [id number] Time Notified 601 [facility] TestName pO2 Art and O2 Sat Art (Noni) [facility] Called/Read Back Sravani Campos [facility] Credentials RN [facility] Called By SB [facility] Blood 09/07/2024 5:39 AM CDT 09/07/2024 5:49 AM CDT us Perla Roldan MD LAB BLOOD ORDERABLES F inal Result [facility] One [facility] Department [place] [address] * (ABNORMAL) Blood gas, arterial (09/07/2024 5:39 AM CDT) pH, Art 7.45 7.35 - 7.45 PCO2, Arterial 43 35 - 45 mmHg [facility] PO2, Arterial 36(C) 83 - 108 mmHg [facility] Comment:Repeated and verifie d. HCO3 Art (Calculated) 31(H) 20 - 30 mmol/L [facility] BE, art 6 mmol/L [facility] Comment: Interpretive Data No Reference Range Established Current Interpretive Data was last revised on 2017 O2 Sat Art (Measured) 64(C) 90 - 95 % [facility] Comment:Juana and roxi winn Blood 09/07/2024 5:39 AM CDT 09/07/2024 5:49 AM CDT Perla Roldan MD LAB BLOOD ORDERABLES F inal Result Performing Organization Address [facility] Co de Phone Number [facility] Department [place] [address] * eGFR (09/07/2024 2:43 AM CDT) eGFR [...] ORDERABLES Lila l Result Performing Organization Address [facility] Co de Phone Number [facility] Department [place] [address] * (ABNORMAL) Differential, auto (09/07/2024 2:43 AM CDT) Neutrophil abs 5.50 1.50 - 6.50 K/cumm Imm gran abs 0.04 0.00 - 0.10 K/cumm [facility] Lymphocyte abs 0.21(L) 0.80 - 3.30 K/cumm [facility] Monocyte abs 0.42 0.20 - 0.80 K/cumm [facility] Eosinophil abs 0.01 0.00 - 0.50 K/cumm [facility] Basophil abs 0.01 0.00 - 0.10 K/cumm [facility] Neutrophil pct 88.8 % [facility] Comment: Interpretive Data Percent cell count reference ranges are not reported, since discordance with absolute values may lead to misinterpretation of CBC data. Current Interpretive Data was last revised on 2017. Imm gran pct 0.6 % [facility] Comment: Interpretive Data Percent cell count reference ranges are not reported, since discordance with absolute values may lead to misinterpretation of CBC data. Current Interpretive Data was last revised on 2017. Lymphocyte pct 3.4 % [facility] Comment: Interpretive Data Percent cell count reference ranges are not reported, since discordance with absolute values may lead to misinterpretation of CBC data. Current Interpretive Data was last revised on 2017. Monocyte pct 6.8 % [facility] Comment: Interpretive Data Percent cell count reference ranges are not reported, since discordance with absolute values may lead to misinterpretation of CBC data. Current Interpretive Data was last revised on 2017. Eosinophil pct 0.2 % [facility] Comment: Interpretive Data Percent cell count reference ranges are not reported, since discordance with absolute values may lead to misinterpretation of CBC data. Current Interpretive Data was last revised on 2017. Basophil pct 0.2 % [facility] Comment: Interpretive Data Percent cell count reference ranges are not reported, since discordance with absolute values may lead to misinterpretation of CBC data. Current Interpretive Data was last revised on 2017. Blood 09/07/2024 2:43 AM CDT 09/07/2024 4:42 AM CDT us Smith Sawyer MD LAB BLOOD ORDERABLES Lila l Result Performing Organization Address City/[facility]/ZIP Co de Phone Number [facility] [place] [address] * Critical Result Callback Chemistry (09/07/2024 2:43 AM CDT) [facility] Date Notified [id number] Time Notified 454 [facility] TestName p O2 Art [facility] Called/Read Back Olivier Campos [facility] Credentials RN [facility] Called By LUKAS [facility] Blood 09/07/2024 2:43 AM CDT 09/07/2024 4:41 AM CDT Perla Roldan MD LAB BLOOD ORDERABLES F inal Result Performing Organization Address [facility] Co de Phone Number [facility] Department [place] [address] * (ABNORMAL) CBC with auto differential (09/07/2024 2:43 AM CDT) [facility] WBC 6.19 3.80 - 9.90 K/cumm Hgb 10.1(L) 13.0 - 17.5 g/dL [facility] Hct 30.0(L) 38.9 - 50.3 % [facility] Plt 57(L) 150 - 400 K/cumm [facility] MPV 11.7 9.1 - 12.3 fL [facility] RBC 2.80(L) 4.30 - 5.80 M/cumm [facility] MCV 107.1(H) 81.3 - 96.4 fL [facility] MCH 36.1(H) 27.1 - 33.3 pg [facility] MCHC 33.7 32.3 - 35.7 g/dL [facility] RDW CV 18.8(H) 11.1 - 14.9 % [facility] RDW SD 73.8(H) 35.7 - 48.1 fL [facility] NRBC abs 0.00 0.00 - 0.01 K/cumm [facility] Blood 09/07/2024 2:43 AM CDT 09/07/2024 4:42 AM CDT Smith Sawyer MD LAB BLOOD ORDERABLES Lila l Result Performing Organization Address [facility] de Phone Number [facility] [place] [address] * aPTT (09/07/2024 2:43 AM CDT) aPTT 32 28 - 38 sec Comment: Interpretive Data Heparin therapeutic range: 66.0 - 100.0 seconds. Range based on correlation with therapeutic heparin activity range of 0.3 - 0.7 Units/mL. Current interpretive data was last revised on 2023. Blood 09/07/2024 2:43 AM CDT 09/07/2024 4:40 AM CDT Smith Sawyer MD LAB BLOOD ORDERABLES Lila l Result Performing Organization Address [facility] [place] [address] * (ABNORMAL) Protime-INR (09/07/2024 2:43 AM CDT) PT 28.4(H) 9.7 - 13.0 sec INR 2.58(H) 0.90 - 1.20 [facility] Comment: Interpretive data Oral anticoagulant therapeutic ranges: Venous thromboembolism prophylaxis or treatment: 2.0-3.0 CARDIOLOGY Standard range: 2.0-3.0 High-intensity range: 2.5-3.5 Refer to indication-specific guidelines for appropriate target ranges for prosthetic heart valve replacement. Current interpretive data was last revised on 2019. Blood 09/07/2024 2:43 AM CDT 09/07/2024 4:40 AM CDT Zuleima Levine MD LAB BLOOD ORDERABLES Lila l Result Performing Organization Address [facility] Co de Phone Number [facility] [place] [address] * Type and screen (09/07/2024 2:43 AM CDT) Minna, indirect Negative ABO Rh A Positive [facility] Blood 09/07/2024 2:43 AM CDT 09/07/2024 4:44 AM CDT Narrative [facility] - 09/07/2024 7:55 AM CDT Has the patient had Daratumumab or Isatuximab in the past 6 months?->Unknown Smith Sawyer MD LAB BLOOD BANK TEST ORDER DEMETRIO Final Result Performing Organization Address [facility] de Phone Number [facility] [place] [address] * Uric acid (09/07/2024 2:43 AM CDT) Uric acid 3.8 3.0 - 8.0 mg/dL Blood 09/07/2024 2:43 AM CDT 09/07/2024 4:42 AM CDT Narrative [facility] - 09/07/2024 5:14 AM CDT Saturday and only. Morning draw. . Smith Sawyer MD LAB BLOOD ORDERABLES Lila l Result Performing Organization Address [facility] Co de Phone Number [facility] [place] [address] * Phosphorus (09/07/2024 2:43 AM CDT) Phosphorus, pl 2.9 2.3 - 4.5 mg/dL Blood 09/07/2024 2:43 AM CDT 09/07/2024 4:42 AM CDT Smith Sawyer MD LAB BLOOD ORDERABLES Lila l Result Performing Organization Address [facility] de Phone Number [facility] [place] [address] * (ABNORMAL) Lactate dehydrogenase (LD) (09/07/2024 2:43 AM CDT) Pathologist [facility] Lactate dehydrogenase (LDH) 371(H) 100 - 250 Units/L Blood 09/07/2024 2:43 AM CDT 09/07/2024 4:42 AM CDT Narrative [facility] - 09/07/2024 5:14 AM CDT Saturday and only. Morning draw. Smith Sawyer MD LAB BLOOD ORDERABLES Llia l Result Performing Organization Address [facility] de Phone Number [facility] [place] [address] * (ABNORMAL) Blood gas, arterial (09/07/2024 2:43 AM CDT) Pathologist [facility] pH, Art 7.45 7.35 - 7.45 PCO2, Arterial 42 35 - 45 mmHg [facility] PO2, Arterial 32(C) 83 - 108 mmHg [facility] Comment:Repeated and verifie d. HCO3 Art (Calculated) 30 20 - 30 mmol/L [facility] BE, art 4 mmol/L [facility] Comment: Interpretive Data No Reference Range Established Current Interpretive Data was last revised on 2017 O2 Sat Art (Measured) 58(C) 90 - 95 % [facility] Comment:Repeated and verifie d. Blood 09/07/2024 2:43 AM CDT 09/07/2024 4:41 AM CDT Perla Roldan MD LAB BLOOD ORDERABLES F inal Result [facility] One [facility] Department [place] [address] * (ABNORMAL) Comprehensive metabolic panel (09/07/2024 2:43 AM CDT) Sodium 136 135 - 145 mmol/L Potassium, pl 3.8 3.3 - 4.9 mmol/L [facility] Chloride 96(L) 97 - 110 mmol/L [facility] CO2 33(H) 22 - 32 mmol/L [facility] Anion gap 7 2 - 15 mmol/L [facility] BUN 15 6 - 25 mg/dL [facility] Creatinine 0.84 0.80 - 1.30 mg/dL [facility] Glucose 116 70 - 199 mg/dL [facility] Comment: Interpretive Data Fasting glucose >/= 126 [...] 2022. Calcium 7.9(L) 8.5 - 10.3 mg/dL [facility] Bilirubin, total 1.4(H) 0.1 - 1.2 mg/dL [facility] Protein, pl 5.4(L) 6.5 - 8.5 g/dL [facility] Albumin 2.4(L) 3.5 - 5.0 g/dL [facility] Alk phos 275(H) 40 - 130 Units/L [facility] ALT 31 7 - 55 Units/L [facility] AST 78(H) 10 - 50 Units/L [facility] Blood 09/07/2024 2:43 AM CDT 09/07/2024 4:42 AM CDT Smith Sawyer MD LAB BLOOD ORDERABLES Llia l Result Performing Organization Address [facility] Co de Phone Number STAN [facility] Department [place] [address] * eGFR (09/06/2024 12:41 AM CDT) Pathologist [facility] eGFR >90 >=60 mL/min/1. 73 m2 Comment: [...] ORDERABLES Lila l Result Performing Organization Address [facility] Co de Phone Number STAN [facility] Department [place] [address] * (ABNORMAL) Differential, auto (09/06/2024 12:41 AM CDT) Pathologist [facility] Neutrophil abs 4.99 1.50 - 6.50 K/cumm Imm gran abs 0.07 0.00 - 0.10 K/cumm [facility] Lymphocyte abs 0.35(L) 0.80 - 3.30 K/cumm [facility] Monocyte abs 0.94(H) 0.20 - 0.80 K/cumm [facility] Eosinophil abs 0.01 0.00 - 0.50 K/cumm [facility] Basophil abs 0.01 0.00 - 0.10 K/cumm [facility] Neutrophil pct 78.2 % [facility] Comment: Interpretive Data Percent cell count reference ranges are not reported, since discordance with absolute values may lead to misinterpretation of CBC data. Current Interpretive Data was last revised on 2017. Imm gran pct 1.1 % [facility] Comment: Interpretive Data Percent cell count reference ranges are not reported, since discordance with absolute values may lead to misinterpretation of CBC data. Current Interpretive Data was last revised on 2017. Lymphocyte pct 5.5 % [facility] Comment: Interpretive Data Percent cell count reference ranges are not reported, since discordance with absolute values may lead to misinterpretation of CBC data. Current Interpretive Data was last revised on 2017. Monocyte pct 14.8 % [facility] Comment: Interpretive Data Percent cell count reference ranges are not reported, since discordance with absolute values may lead to misinterpretation of CBC data. Current Interpretive Data was last revised on 2017. Eosinophil pct 0.2 % [facility] Comment: Interpretive Data Percent cell count reference ranges are not reported, since discordance with absolute values may lead to misinterpretation of CBC data. Current Interpretive Data was last revised on 2017. Basophil pct 0.2 % [facility] Comment: Interpretive Data Percent cell count reference ranges are not reported, since discordance with absolute values may lead to misinterpretation of CBC data. Current Interpretive Data was last revised on 2017. Blood 09/06/2024 12:4 1 AM CDT 09/06/2024 12:55 AM CDT us Smith Sawyer MD LAB BLOOD ORDERABLES Lila dawson Result [facility] [place] [address] * (ABNORMAL) CBC with auto differential (09/06/2024 12:41 AM CDT) WBC 6.37 3.80 - 9.90 K/cumm Hgb 8.6(L) 13.0 - 17.5 g/dL [facility] Hct 25.3(L) 38.9 - 50.3 % [facility] Plt 61(L) 150 - 400 K/cumm [facility] MPV 11.6 9.1 - 12.3 fL [facility] RBC 2.35(L) 4.30 - 5.80 M/cumm [facility] MCV 107.7(H) 81.3 - 96.4 fL [facility] MCH 36.6(H) 27.1 - 33.3 pg [facility] MCHC 34.0 32.3 - 35.7 g/dL [facility] RDW CV 18.8(H) 11.1 - 14.9 % [facility] RDW SD 74.0(H) 35.7 - 48.1 fL [facility] NRBC abs 0.00 0.00 - 0.01 K/cumm [facility] Blood 09/06/2024 12:4 1 AM CDT 09/06/2024 12:55 AM CDT us Smith Sawyer MD LAB BLOOD ORDERABLES Lila dawson Result [facility] Department [place] [address] * (ABNORMAL) Protime-INR (09/06/2024 12:41 AM CDT) [facility] PT 26.9(H) 9.7 - 13.0 sec INR 2.45(H) 0.90 - 1.20 [facility] Comment: Interpretive data Oral anticoagulant therapeutic ranges: Venous thromboembolism prophylaxis or treatment: 2.0-3.0 CARDIOLOGY Standard range: 2.0-3.0 High-intensity range: 2.5-3.5 Refer to indication-specific guidelines for appropriate target ranges for prosthetic heart valve replacement. Current interpretive data was last revised on 2019. Blood 09/06/2024 12:4 1 AM CDT 09/06/2024 12:58 AM CDT Zuleima Levine MD LAB BLOOD ORDERABLES Lila l Result [facility] Department [place] [address] * Phosphorus (09/06/2024 12:41 AM CDT) Pathologist [facility] Phosphorus, pl 3.2 2.3 - 4.5 mg/dL Blood 09/06/2024 12:4 1 AM CDT 09/06/2024 12:55 AM CDT Smith Sawyer MD LAB BLOOD ORDERABLES Lila l Result Performing Organization Address [facility] de Phone Number [facility] Department [place] [address] * (ABNORMAL) Comprehensive metabolic panel (09/06/2024 12:41 AM CDT) [facility] Sodium 135 135 - 145 mmol/L Potassium, pl 3.9 3.3 - 4.9 mmol/L [facility] Chloride 97 97 - 110 mmol/L [facility] CO2 33(H) 22 - 32 mmol/L [facility] Anion gap 5 2 - 15 mmol/L [facility] BUN 14 6 - 25 mg/dL [facility] Creatinine 0.83 0.80 - 1.30 mg/dL [facility] Glucose 98 70 - 199 mg/dL [facility] Comment: Interpretive Data Fasting glucose >/= 126 [...] 2022. Calcium 7.7(L) 8.5 - 10.3 mg/dL [facility] Bilirubin, total 0.6 0.1 - 1.2 mg/dL [facility] Protein, pl 5.0(L) 6.5 - 8.5 g/dL [facility] Albumin 2.2(L) 3.5 - 5.0 g/dL [facility] Alk phos 139(H) 40 - 130 Units/L [facility] ALT 20 7 - 55 Units/L [facility] AST 46 10 - 50 Units/L [facility] Blood 09/06/2024 12:4 1 AM CDT 09/06/2024 12:55 AM CDT Smith Sawyer MD LAB BLOOD ORDERABLES Lila dawson Result [facility] Department [place] [address] * eGFR (09/05/2024 1:43 AM CDT) eGFR [...] MD LAB BLOOD ORDERABLES Lila dawson Result [facility] Department [place] [address] * (ABNORMAL) Differential, auto (09/05/2024 1:43 AM CDT) Neutrophil abs 3.92 1.50 - 6.50 K/cumm Imm gran abs 0.04 0.00 - 0.10 K/cumm [facility] Lymphocyte abs 0.28(L) 0.80 - 3.30 K/cumm [facility] Monocyte abs 0.58 0.20 - 0.80 K/cumm [facility] Eosinophil abs 0.00 0.00 - 0.50 K/cumm [facility] Basophil abs 0.00 0.00 - 0.10 K/cumm [facility] Neutrophil pct 81.4 % [facility] Comment: Interpretive Data Percent cell count reference ranges are not reported, since discordance with absolute values may lead to misinterpretation of CBC data. Current Interpretive Data was last revised on 2017. Imm gran pct 0.8 % [facility] Comment: Interpretive Data Percent cell count reference ranges are not reported, since discordance with absolute values may lead to misinterpretation of CBC data. Current Interpretive Data was last revised on 2017. Lymphocyte pct 5.8 % [facility] Comment: Interpretive Data Percent cell count reference ranges are not reported, since discordance with absolute values may lead to misinterpretation of CBC data. Current Interpretive Data was last revised on 2017. Monocyte pct 12.0 % [facility] Comment: Interpretive Data Percent cell count reference ranges are not reported, since discordance with absolute values may lead to misinterpretation of CBC data. Current Interpretive Data was last revised on 2017. Eosinophil pct 0.0 % [facility] Comment: Interpretive Data Percent cell count reference ranges are not reported, since discordance with absolute values may lead to misinterpretation of CBC data. Current Interpretive Data was last revised on 2017. Basophil pct 0.0 % [facility] Comment: Interpretive Data Percent cell count reference ranges are not reported, since discordance with absolute values may lead to misinterpretation of CBC data. Current Interpretive Data was last revised on 2017. Blood 09/05/2024 1:43 AM CDT 09/05/2024 2:00 AM CDT Smiht Sawyer MD LAB BLOOD ORDERABLES Lila l Result Performing Organization Address [facility] Co de Phone Number [facility] Department [place] [address] * (ABNORMAL) CBC with auto differential (09/05/2024 1:43 AM CDT) WBC 4.82 3.80 - 9.90 K/cumm Hgb 9.2(L) 13.0 - 17.5 g/dL [facility] Hct 26.3(L) 38.9 - 50.3 % [facility] Plt 82(L) 150 - 400 K/cumm [facility] MPV 11.8 9.1 - 12.3 fL [facility] RBC 2.47(L) 4.30 - 5.80 M/cumm [facility] MCV 106.5(H) 81.3 - 96.4 fL [facility] MCH 37.2(H) 27.1 - 33.3 pg [facility] MCHC 35.0 32.3 - 35.7 g/dL [facility] RDW CV 19.3(H) 11.1 - 14.9 % [facility] RDW SD 75.1(H) 35.7 - 48.1 fL [facility] NRBC abs 0.00 0.00 - 0.01 K/cumm [facility] Blood 09/05/2024 1:43 AM CDT 09/05/2024 2:00 AM CDT Smith Sawyer MD LAB BLOOD ORDERABLES Lila dawson Result Performing Organization Address [facility] Co de Phone Number [facility] Department [place] [address] * (ABNORMAL) Protime-INR (09/05/2024 1:43 AM CDT) [facility] PT 21.5(H) 9.7 - 13.0 sec INR 1.96(H) 0.90 - 1.20 [facility] Comment: Interpretive data Oral anticoagulant therapeutic ranges: Venous thromboembolism prophylaxis or treatment: 2.0-3.0 CARDIOLOGY Standard range: 2.0-3.0 High-intensity range: 2.5-3.5 Refer to indication-specific guidelines for appropriate target ranges for prosthetic heart valve replacement. Current interpretive data was last revised on 2019. Blood 09/05/2024 1:43 AM CDT 09/05/2024 2:05 AM CDT Zuleima Levine MD LAB BLOOD ORDERABLES Lila l Result [facility] Department [place] [address] * Phosphorus (09/05/2024 1:43 AM CDT) [facility] Phosphorus, pl 4.1 2.3 - 4.5 mg/dL Blood 09/05/2024 1:43 AM CDT 09/05/2024 2:00 AM CDT Smith Sawyer MD LAB BLOOD ORDERABLES Lila l Result [facility] [place] [address] * (ABNORMAL) Comprehensive metabolic panel (09/05/2024 1:43 AM CDT) [facility] Sodium 138 135 - 145 mmol/L Potassium, pl 3.6 3.3 - 4.9 mmol/L [facility] Chloride 97 97 - 110 mmol/L [facility] CO2 33(H) 22 - 32 mmol/L [facility] Anion gap 8 2 - 15 mmol/L [facility] BUN 13 6 - 25 mg/dL [facility] Creatinine 0.90 0.80 - 1.30 mg/dL [facility] Glucose 110 70 - 199 mg/dL [facility] Comment: Interpretive Data Fasting glucose >/= 126 [...] 2022. Calcium 8.0(L) 8.5 - 10.3 mg/dL [facility] Bilirubin, total 0.6 0.1 - 1.2 mg/dL [facility] Protein, pl 5.3(L) 6.5 - 8.5 g/dL [facility] Albumin 2.7(L) 3.5 - 5.0 g/dL [facility] Alk phos 135(H) 40 - 130 Units/L [facility] ALT 22 7 - 55 Units/L [facility] AST 44 10 - 50 Units/L [facility] Blood 09/05/2024 1:43 AM CDT 09/05/2024 2:00 AM CDT Smith Sawyer MD LAB BLOOD ORDERABLES Lila dawson Result [facility] [place] [address] * XR Chest 1 View (09/04/2024 11:51 [...] it. Electronically signed by: Trever Mclean M.D. Francisco Sahu MD IMG XR PROCEDURES Lila l Result * TRANSTHORACIC ECHO (TTE) LIMITED/FOLLOW UP W LTD DOPPLER/CF W CONTRAST (09/04/2024 9:52 AM CDT) EF Mod BP 66 % CONS SCIMAGE Anatomical Region Laterality Modality Ultrasound 09/04/2024 8:53 AM CDT Narrative 09/04/2024 11:04 AM CDT [facility] [place] [address] Transthoracic Echocardiographic Report Patient Name: SULMA BAZAN ZAID : 1950 (74y 1m) Gender: M Study Date: 09/04/2024 08:53:34 Ht(Inch): 70 Wt(Lb): 218.03 BSA: 2.21 Message Broker Developer: [email or web address] cross Location: [id number] Order Provider: FRANCISCO SAHU Heart Rate: 60 [...] LA Length 4C 6.12 cm AI Decel [place] 3.63 m/s2 LA Length 2C 7.21 cm [...] Procedure Note Gilberto Fish MD - 09/04/2024 [facility] [place] [address] Transthoracic Echocardiographic Report Patient Name: SULMA BAZAN AL : 1950 (74y 1m) Gender: M Study Date: 09/04/2024 08:53:34 Ht(Inch): 70 Wt(Lb): 218.03 BSA: 2.21 Message Broker Developer: [email or web address] cross Location: [id number] Order Provider:FRANCISCO SAHU Heart Rate: 60 BMI: [...] [ -25.0 - -18.0 ] AI Decel Ehkm6131.48 sec LA Length 4C 6.12 cm AI Decel [place]3.63 m/s2 LA Length 2C 7.21 cm AI SBP798.78 msec LA Volume BP 133.31 ml MV [...] By: Gilberto Fish MD 09/04/2024 11:03:58 CDT [facility] Filippo Sahu MD CV ECHO PROCEDURES Fin al [...] MD LAB BLOOD ORDERABLES Lila l Result [facility] Department [place] [address] * (ABNORMAL) Differential, auto (09/04/2024 12:25 AM CDT) Neutrophil abs 2.69 1.50 - 6.50 K/cumm Imm gran abs 0.01 0.00 - 0.10 K/cumm [facility] Lymphocyte abs 0.25(L) 0.80 - 3.30 K/cumm [facility] Monocyte abs 0.42 0.20 - 0.80 K/cumm [facility] Eosinophil abs 0.00 0.00 - 0.50 K/cumm [facility] Basophil abs 0.01 0.00 - 0.10 K/cumm [facility] Neutrophil pct 79.6 % [facility] Comment: Interpretive Data Percent cell count reference ranges are not reported, since discordance with absolute values may lead to misinterpretation of CBC data. Current Interpretive Data was last revised on 2017. Imm gran pct 0.3 % [facility] Comment: Interpretive Data Percent cell count reference ranges are not reported, since discordance with absolute values may lead to misinterpretation of CBC data. Current Interpretive Data was last revised on 2017. Lymphocyte pct 7.4 % [facility] Comment: Interpretive Data Percent cell count reference ranges are not reported, since discordance with absolute values may lead to misinterpretation of CBC data. Current Interpretive Data was last revised on 2017. Monocyte pct 12.4 % [facility] Comment: Interpretive Data Percent cell count reference ranges are not reported, since discordance with absolute values may lead to misinterpretation of CBC data. Current Interpretive Data was last revised on 2017. Eosinophil pct 0.0 % [facility] Comment: Interpretive Data Percent cell count reference ranges are not reported, since discordance with absolute values may lead to misinterpretation of CBC data. Current Interpretive Data was last revised on 2017. Basophil pct 0.3 % [facility] Comment: Interpretive Data Percent cell count reference ranges are not reported, since discordance with absolute values may lead to misinterpretation of CBC data. Current Interpretive Data was last revised on 2017. Blood 09/04/2024 12:2 5 AM CDT 09/04/2024 1:15 AM CDT us Smith Sawyer MD LAB BLOOD ORDERABLES Lila dawson Result [facility] Department [place] [address] * (ABNORMAL) Pro B-type natriuretic peptide (09/04/2024 12:25 AM CDT) NT-proBNP 1,527(H) <=450 pg/mL Comment: Interpretive Comments: [...] as advanced age. - References: 1. April SANTILLAN et.al. Eur Heart J. 2006:27:330-337. 2. Taylor RW, Cyndee SIMMONS. J. AM Sarah Cardiol: Cardiovasc Imag. 2009;2: 216- 225. Interpretive Data Last Revised Date: 2017. Blood 09/04/2024 12:2 5 AM CDT 09/04/2024 1:13 AM CDT us Francisco Sahu MD LAB BLOOD ORDERABLES F inal Result [facility] Department [place] [address] * (ABNORMAL) CBC with auto differential (09/04/2024 12:25 AM CDT) WBC 3.38(L) 3.80 - 9.90 K/cumm Hgb 8.9(L) 13.0 - 17.5 g/dL [facility] Hct 26.1(L) 38.9 - 50.3 % [facility] Plt 74(L) 150 - 400 K/cumm [facility] MPV 11.9 9.1 - 12.3 fL [facility] RBC 2.45(L) 4.30 - 5.80 M/cumm [facility] MCV 106.5(H) 81.3 - 96.4 fL [facility] MCH 36.3(H) 27.1 - 33.3 pg [facility] MCHC 34.1 32.3 - 35.7 g/dL [facility] RDW CV 19.5(H) 11.1 - 14.9 % [facility] RDW SD 74.8(H) 35.7 - 48.1 fL [facility] NRBC abs 0.00 0.00 - 0.01 K/cumm [facility] Blood 09/04/2024 12:2 5 AM CDT 09/04/2024 1:15 AM CDT us Smith Sawyer MD LAB BLOOD ORDERABLES Lila l Result Performing Organization Address City/[facility] [place] [address] * (ABNORMAL) Protime-INR (09/04/2024 12:25 AM CDT) PT 18.3(H) 9.7 - 13.0 sec INR 1.68(H) 0.90 - 1.20 [facility] Comment: Interpretive data Oral anticoagulant therapeutic ranges: Venous thromboembolism prophylaxis or treatment: 2.0-3.0 CARDIOLOGY Standard range: 2.0-3.0 High-intensity range: 2.5-3.5 Refer to indication-specific guidelines for appropriate target ranges for prosthetic heart valve replacement. Current interpretive data was last revised on 2019. Blood 09/04/2024 12:2 5 AM CDT 09/04/2024 1:11 AM CDT Zuleima Levine MD LAB BLOOD ORDERABLES Lila l Result Performing Organization Address [facility] [place] [address] * Phosphorus (09/04/2024 12:25 AM CDT) Pathologist [facility] Phosphorus, pl 3.0 2.3 - 4.5 mg/dL Blood 09/04/2024 12:2 5 AM CDT 09/04/2024 1:13 AM CDT Smith Sawyer MD LAB BLOOD ORDERABLES Lila l Result Performing Organization Address City/[facility] Co de Phone Number [facility] [place] [address] * (ABNORMAL) Comprehensive metabolic panel (09/04/2024 12:25 AM CDT) Sodium 137 135 - 145 mmol/L Potassium, pl 4.1 3.3 - 4.9 mmol/L [facility] Chloride 101 97 - 110 mmol/L [facility] CO2 29 22 - 32 mmol/L [facility] Anion gap 7 2 - 15 mmol/L [facility] BUN 15 6 - 25 mg/dL [facility] Creatinine 0.80 0.80 - 1.30 mg/dL [facility] Glucose 125 70 - 199 mg/dL [facility] Comment: Interpretive Data Fasting glucose >/= 126 [...] 2022. Calcium 8.2(L) 8.5 - 10.3 mg/dL [facility] Bilirubin, total 0.5 0.1 - 1.2 mg/dL [facility] Protein, pl 5.2(L) 6.5 - 8.5 g/dL [facility] Albumin 2.6(L) 3.5 - 5.0 g/dL [facility] Alk phos 96 40 - 130 Units/L [facility] ALT 20 7 - 55 Units/L [facility] AST 42 10 - 50 Units/L [facility] Blood 09/04/2024 12:2 5 AM CDT 09/04/2024 1:13 AM CDT us Smith Sawyer MD LAB BLOOD ORDERABLES Lila dawson Result [facility] [place] [address] * US Vein Duplex Lower Extremity Bilateral Complete (09/03/2024 3:52 PM CDT) Anatomical Region Laterality Modality Vascular Bilateral Ultrasound 09/03/2024 3:31 PM CDT Narrative 09/04/2024 4:[address] [facility] - Department of Vascular Surgery, Vascular Laboratory [address] [place] [id number] Lower Extremity Venous Ultrasound Report Patient Name: SULMA BAZAN AL : 1950 (74y 1m) Study Date: 09/03/2024 3:31:25 PM Gender: M Tech: Location: [id number] Ref Provider: FRANCISCO SAHU Quality: Adequate Order [...] Swelling, Lower Extremity, Bilateral - FINDINGS: Performing Message Broker Developer: Alethea Osorio RVT, RDMS. Bilateral: Venous Doppler [...] Procedure Note Michael Torres MD - 09/04/2024 [facility] - Department of Vascular Surgery,Vascular Laboratory [address] [place] [address] Lower Extremity Venous Ultrasound Report Patient Name: SULMA BAZAN AL : 1950 (74y 1m) Study Date: 09/03/2024 3:31:25 PM Gender: M Tech: Location: [id number] Ref Provider: FRANCISCO SAHU Quality: Adequate Order Provider: FRANCISCO SAHU PROCEDURES: Vascular Report: Venous Duplex imaging was performed bilaterally in the lower extremities.The common femoral, femoral, popliteal, posterior tibial, peroneal veins wereevaluated for patency, spontaneity and phasicity with Doppler, compression and augmentationmaneuvers. Great saphenous vein proximal at the junction was evaluated with compressionmaneuvers. INDICATIONS: Swelling, Lower Extremity, Bilateral - FINDINGS: Performing Message Broker Developer: Alethea Osorio RVT, RDMS. Bilateral: Venous Doppler [...] above. Electronically Signed By: Michael Torres MD [facility] 09/04/2024 4:00:58 PM CDT us [facility] Filippo Sahu MD IMG US PROCEDURES Lila l Result * XR [...] pneumothorax. Electronically signed by: Trever Mclean M.D. [facility] Filippo Sahu MD IMG XR PROCEDURES Lila l Result * eGFR (09/03/2024 12:59 AM CDT) Pathologist [facility] eGFR >90 >=60 mL/min/1. 73 m2 Comment: [...] MD LAB BLOOD ORDERABLES Lila dawson Result [facility] Department [place] [address] * (ABNORMAL) Differential, auto (09/03/2024 12:59 AM CDT) Neutrophil abs 3.63 1.50 - 6.50 K/cumm Imm gran abs 0.03 0.00 - 0.10 K/cumm [facility] Lymphocyte abs 0.27(L) 0.80 - 3.30 K/cumm [facility] Monocyte abs 0.72 0.20 - 0.80 K/cumm [facility] Eosinophil abs 0.05 0.00 - 0.50 K/cumm [facility] Basophil abs 0.02 0.00 - 0.10 K/cumm [facility] Neutrophil pct 76.9 % [facility] Comment: Interpretive Data Percent cell count reference ranges are not reported, since discordance with absolute values may lead to misinterpretation of CBC data. Current Interpretive Data was last revised on 2017. Imm gran pct 0.6 % [facility] Comment: Interpretive Data Percent cell count reference ranges are not reported, since discordance with absolute values may lead to misinterpretation of CBC data. Current Interpretive Data was last revised on 2017. Lymphocyte pct 5.7 % [facility] Comment: Interpretive Data Percent cell count reference ranges are not reported, since discordance with absolute values may lead to misinterpretation of CBC data. Current Interpretive Data was last revised on 2017. Monocyte pct 15.3 % [facility] Comment: Interpretive Data Percent cell count reference ranges are not reported, since discordance with absolute values may lead to misinterpretation of CBC data. Current Interpretive Data was last revised on 2017. Eosinophil pct 1.1 % [facility] Comment: Interpretive Data Percent cell count reference ranges are not reported, since discordance with absolute values may lead to misinterpretation of CBC data. Current Interpretive Data was last revised on 2017. Basophil pct 0.4 % [facility] Comment: Interpretive Data Percent cell count reference ranges are not reported, since discordance with absolute values may lead to misinterpretation of CBC data. Current Interpretive Data was last revised on 2017. Blood 09/03/2024 12:5 9 AM CDT 09/03/2024 1:14 AM CDT us Smith Sawyer MD LAB BLOOD ORDERABLES Lila dawson Result [facility] Department [place] [address] * (ABNORMAL) CBC with auto differential (09/03/2024 12:59 AM CDT) WBC 4.72 3.80 - 9.90 K/cumm Hgb 9.1(L) 13.0 - 17.5 g/dL [facility] Hct 25.8(L) 38.9 - 50.3 % [facility] Plt 82(L) 150 - 400 K/cumm [facility] MPV 11.5 9.1 - 12.3 fL [facility] RBC 2.41(L) 4.30 - 5.80 M/cumm [facility] MCV 107.1(H) 81.3 - 96.4 fL [facility] MCH 37.8(H) 27.1 - 33.3 pg [facility] MCHC 35.3 32.3 - 35.7 g/dL [facility] RDW CV 19.9(H) 11.1 - 14.9 % [facility] RDW SD 76.8(H) 35.7 - 48.1 fL [facility] NRBC abs 0.00 0.00 - 0.01 K/cumm [facility] Blood 09/03/2024 12:5 9 AM CDT 09/03/2024 1:14 AM CDT Smith Sawyer MD LAB BLOOD ORDERABLES Lila l Result Performing Organization Address [facility] de Phone Number [facility] Department [place] [address] * (ABNORMAL) Protime-INR (09/03/2024 12:59 AM CDT) PT 18.3(H) 9.7 - 13.0 sec INR 1.68(H) 0.90 - 1.20 [facility] Comment: Interpretive data Oral anticoagulant therapeutic ranges: Venous thromboembolism prophylaxis or treatment: 2.0-3.0 CARDIOLOGY Standard range: 2.0-3.0 High-intensity range: 2.5-3.5 Refer to indication-specific guidelines for appropriate target ranges for prosthetic heart valve replacement. Current interpretive data was last revised on 2019. Blood 09/03/2024 12:5 9 AM CDT 09/03/2024 1:18 AM CDT Zuleima Levine MD LAB BLOOD ORDERABLES Lila l Result Performing Organization Address [facility] de Phone Number [facility] Department [place] [address] * Type and screen (09/03/2024 12:59 AM CDT) Minna, indirect Negative ABO Rh A Positive [facility] Blood 09/03/2024 12:5 9 AM CDT 09/03/2024 1:31 AM CDT Narrative [facility] - 09/03/2024 3:30 AM CDT Has the patient had Daratumumab or Isatuximab in the past 6 months?->Unknown Result [facility] Smith Sawyer MD LAB BLOOD BANK TEST ORDER DEMETRIO Final Result Performing Organization Address [facility] de Phone Number [facility] [place] [address] * Uric acid (09/03/2024 12:59 AM CDT) Uric acid 5.0 3.0 - 8.0 mg/dL Blood 09/03/2024 12:5 9 AM CDT 09/03/2024 1:14 AM CDT Narrative [facility] - 09/03/2024 1:43 AM CDT Saturday and only. Morning draw. . Result [facility] Smith Sawyer MD LAB BLOOD ORDERABLES Lila l Result Performing Organization Address [facility] de Phone Number [facility] [place] [address] * Phosphorus (09/03/2024 12:59 AM CDT) Phosphorus, pl 2.7 2.3 - 4.5 mg/dL Blood 09/03/2024 12:5 9 AM CDT 09/03/2024 1:14 AM CDT Result [facility] Smith Sawyer MD LAB BLOOD ORDERABLES Lila l Result Performing Organization Address [facility] de Phone Number [facility] [place] [address] * Magnesium (09/03/2024 12:59 AM CDT) Magnesium 1.6 1.4 - 2.5 mg/dL Blood 09/03/2024 12:5 9 AM CDT 09/03/2024 1:14 AM CDT Zuleima Levine MD LAB BLOOD ORDERABLES Lila l Result Performing Organization Address [facility] Co de Phone Number [facility] [place] [address] * (ABNORMAL) Lactate dehydrogenase (LD) (09/03/2024 12:59 AM CDT) Lactate dehydrogenase (LDH) 356(H) 100 - 250 Units/L Blood 09/03/2024 12:5 9 AM CDT 09/03/2024 1:14 AM CDT Narrative [facility] - 09/03/2024 1:43 AM CDT Saturday and only. Morning draw. Smith Sawyer MD LAB BLOOD ORDERABLES Lila l Result Performing Organization Address [facility] de Phone Number [facility] [place] [address] * (ABNORMAL) Comprehensive metabolic panel (09/03/2024 12:59 AM CDT) [facility] Sodium 133(L) 135 - 145 mmol/L Potassium, pl 3.1(L) 3.3 - 4.9 mmol/L [facility] Chloride 99 97 - 110 mmol/L [facility] CO2 28 22 - 32 mmol/L [facility] Anion gap 6 2 - 15 mmol/L [facility] BUN 15 6 - 25 mg/dL [facility] Creatinine 0.82 0.80 - 1.30 mg/dL [facility] Glucose 121 70 - 199 mg/dL [facility] Comment: Interpretive Data Fasting glucose >/= 126 [...] Calcium 7.9(L) 8.5 - 10.3 mg/dL [facility] Bilirubin, total 0.7 0.1 - 1.2 mg/dL [facility] Protein, pl 4.9(L) 6.5 - 8.5 g/dL [facility] Albumin 2.6(L) 3.5 - 5.0 g/dL [facility] Alk phos 86 40 - 130 Units/L [facility] ALT 22 7 - 55 Units/L [facility] AST 45 10 - 50 Units/L [facility] Blood 09/03/2024 12:5 9 AM CDT 09/03/2024 1:14 AM CDT Smith Sawyer MD LAB BLOOD ORDERABLES Lila dawson Result [facility] Department [place] [address] * eGFR (09/02/2024 12:41 AM CDT) eGFR [...] MD LAB BLOOD ORDERABLES Lila dawson Result [facility] Department [place] [address] * (ABNORMAL) Differential, auto (09/02/2024 12:41 AM CDT) Neutrophil abs 4.18 1.50 - 6.50 K/cumm Imm gran abs 0.05 0.00 - 0.10 K/cumm [facility] Lymphocyte abs 0.41(L) 0.80 - 3.30 K/cumm [facility] Monocyte abs 0.83(H) 0.20 - 0.80 K/cumm [facility] Eosinophil abs 0.08 0.00 - 0.50 K/cumm [facility] Basophil abs 0.03 0.00 - 0.10 K/cumm [facility] Neutrophil pct 75.0 % [facility] Comment: Interpretive Data Percent cell count reference ranges are not reported, since discordance with absolute values may lead to misinterpretation of CBC data. Current Interpretive Data was last revised on 2017. Imm gran pct 0.9 % [facility] Comment: Interpretive Data Percent cell count reference ranges are not reported, since discordance with absolute values may lead to misinterpretation of CBC data. Current Interpretive Data was last revised on 2017. Lymphocyte pct 7.3 % [facility] Comment: Interpretive Data Percent cell count reference ranges are not reported, since discordance with absolute values may lead to misinterpretation of CBC data. Current Interpretive Data was last revised on 2017. Monocyte pct 14.9 % [facility] Comment: Interpretive Data Percent cell count reference ranges are not reported, since discordance with absolute values may lead to misinterpretation of CBC data. Current Interpretive Data was last revised on 2017. Eosinophil pct 1.4 % [facility] Comment: Interpretive Data Percent cell count reference ranges are not reported, since discordance with absolute values may lead to misinterpretation of CBC data. Current Interpretive Data was last revised on 2017. Basophil pct 0.5 % [facility] Comment: Interpretive Data Percent cell count reference ranges are not reported, since discordance with absolute values may lead to misinterpretation of CBC data. Current Interpretive Data was last revised on 2017. Blood 09/02/2024 12:4 1 AM CDT 09/02/2024 1:02 AM CDT Smith Sawyer MD LAB BLOOD ORDERABLES Lila l Result Performing Organization Address City/[facility]/ZIP Co de Phone Number [facility] Department [place] [address] * (ABNORMAL) CBC with auto differential (09/02/2024 12:41 AM CDT) WBC 5.58 3.80 - 9.90 K/cumm Hgb 9.9(L) 13.0 - 17.5 g/dL [facility] Hct 28.6(L) 38.9 - 50.3 % [facility] Plt 111(L) 150 - 400 K/cumm [facility] MPV 11.2 9.1 - 12.3 fL [facility] RBC 2.67(L) 4.30 - 5.80 M/cumm [facility] MCV 107.1(H) 81.3 - 96.4 fL [facility] MCH 37.1(H) 27.1 - 33.3 pg [facility] MCHC 34.6 32.3 - 35.7 g/dL [facility] RDW CV 20.9(H) 11.1 - 14.9 % [facility] RDW SD 80.1(H) 35.7 - 48.1 fL [facility] NRBC abs 0.00 0.00 - 0.01 K/cumm [facility] Blood 09/02/2024 12:4 1 AM CDT 09/02/2024 1:02 AM CDT Smith Sawyer MD LAB BLOOD ORDERABLES Lila l Result [facility] [place] [address] * (ABNORMAL) Protime-INR (09/02/2024 12:41 AM CDT) Pathologist [facility] PT 18.5(H) 9.7 - 13.0 sec INR 1.69(H) 0.90 - 1.20 [facility] Comment: Interpretive data Oral anticoagulant therapeutic ranges: Venous thromboembolism prophylaxis or treatment: 2.0-3.0 CARDIOLOGY Standard range: 2.0-3.0 High-intensity range: 2.5-3.5 Refer to indication-specific guidelines for appropriate target ranges for prosthetic heart valve replacement. Current interpretive data was last revised on 2019. Blood 09/02/2024 12:4 1 AM CDT 09/02/2024 1:02 AM CDT Zuleima Levine MD LAB BLOOD ORDERABLES Lila l Result Performing Organization Address City/[facility] Co de Phone Number [facility] [place] [address] * Phosphorus (09/02/2024 12:41 AM CDT) Pathologist [facility] Phosphorus, pl 2.4 2.3 - 4.5 mg/dL Blood 09/02/2024 12:4 1 AM CDT 09/02/2024 1:02 AM CDT us Smith Sawyer MD LAB BLOOD ORDERABLES [place] [address] * Magnesium (09/02/2024 12:41 AM CDT) [facility] Magnesium 2.0 1.4 - 2.5 mg/dL Blood 09/02/2024 12:4 1 AM CDT 09/02/2024 1:02 AM CDT us Zuleima Levine MD LAB BLOOD ORDERABLES Lila dawson Result [facility] Department [place] [address] * (ABNORMAL) Comprehensive metabolic panel (09/02/2024 12:41 AM CDT) Sodium 140 135 - 145 mmol/L Potassium, pl 3.7 3.3 - 4.9 mmol/L [facility] Chloride 105 97 - 110 mmol/L [facility] CO2 23 22 - 32 mmol/L [facility] Anion gap 12 2 - 15 mmol/L [facility] BUN 14 6 - 25 mg/dL [facility] Creatinine 0.83 0.80 - 1.30 mg/dL [facility] Glucose 106 70 - 199 mg/dL [facility] Comment: Interpretive Data Fasting glucose >/= 126 [...] 2022. Calcium 7.8(L) 8.5 - 10.3 mg/dL [facility] Bilirubin, total 0.6 0.1 - 1.2 mg/dL [facility] Protein, pl 5.1(L) 6.5 - 8.5 g/dL [facility] Albumin 2.9(L) 3.5 - 5.0 g/dL [facility] Alk phos 92 40 - 130 Units/L [facility] ALT 23 7 - 55 Units/L [facility] AST 46 10 - 50 Units/L [facility] Blood 09/02/2024 12:4 1 AM CDT 09/02/2024 1:02 AM CDT us Smith Sawyer MD LAB BLOOD ORDERABLES Lila dawson Result [facility] Department of Laboratories [place], [place] [id number] * US Vein Duplex Upper Extremity Left Limited, Unilateral (09/01/2024 2:27 PM CDT) Anatomical Region Laterality Modality Vascular Left Ultrasound 09/01/2024 1:18 PM CDT Narrative 09/01/2024 6:[address] [facility] - Department of Vascular Surgery, Vascular Laboratory [address] [place] [id number] Upper Extremity Venous Ultrasound Report Patient Name: SULMA BAZAN : 1950 (74y 1m) Study Date: 09/01/2024 1:18:26 PM Gender: M Tech: Location: [id number] Ref Provider: ZULEIMA LEVINE Quality: Adequate Order Provider: ZULEIMA LEVINE PROCEDURES: Vascular Report: Venous Duplex imaging was performed in the left upper extremity. The internal jugular, subclavian and axillary veins were evaluated for patency, spontaneity and phasicity with Doppler, compression and augmentation maneuvers. The brachial, basilic and cephalic veins were also evaluated with compression maneuvers. INDICATIONS: Hypoxemia. FINDINGS: Performing Message Broker Developer: Mei Linn RVT. Left: Venous Doppler signals [...] Procedure Note Maikel Gupta MD - 09/01/2024 [facility] - Department of Vascular Surgery,Vascular Laboratory [address] [place] [address] Upper Extremity Venous Ultrasound Report Patient Name: SULMA BAZAN : 1950 (74y 1m) Study Date: 09/01/2024 1:18:26 PM Gender: M Tech: Location: [id number] Ref Provider: ZULEIMA LEVINE Quality: Adequate Order Provider: ZULEIMA LEVINE PROCEDURES: Vascular Report: Venous Duplex imaging was performed in the left upper extremity. Theinternal jugular, subclavian and axillary veins were evaluated for patency, spontaneity andphasicity with Doppler, compression and augmentation maneuvers. The brachial, basilic andcephalic veins were also evaluated with compression maneuvers. INDICATIONS: Hypoxemia. FINDINGS: Performing Message Broker Developer: Mei Linn T. Left: Venous Doppler signals in the left [...] above. Electronically Signed By: Maikel Gupta MD [facility] 09/01/2024 5:21:16 PM CDT us Zuleima Levine MD IM US PROCEDURES Final R esult * eGFR (09/01/2024 3:21 AM CDT) Pathologist [facility] eGFR 83 >=60 mL/min/1. 73 m2 Comment: [...] MD LAB BLOOD ORDERABLES Lila eunice Result [facility] Department [place] [address] * (ABNORMAL) Differential, auto (09/01/2024 3:21 AM CDT) [facility] Neutrophil abs 3.01 1.50 - 6.50 K/cumm Imm gran abs 0.04 0.00 - 0.10 K/cumm [facility] Lymphocyte abs 0.35(L) 0.80 - 3.30 K/cumm [facility] Monocyte abs 0.67 0.20 - 0.80 K/cumm [facility] Eosinophil abs 0.06 0.00 - 0.50 K/cumm [facility] Basophil abs 0.01 0.00 - 0.10 K/cumm [facility] Neutrophil pct 72.7 % [facility] Comment: Interpretive Data Percent cell count reference ranges are not reported, since discordance with absolute values may lead to misinterpretation of CBC data. Current Interpretive Data was last revised on 2017. Imm gran pct 1.0 % [facility] Comment: Interpretive Data Percent cell count reference ranges are not reported, since discordance with absolute values may lead to misinterpretation of CBC data. Current Interpretive Data was last revised on 2017. Lymphocyte pct 8.5 % [facility] Comment: Interpretive Data Percent cell count reference ranges are not reported, since discordance with absolute values may lead to misinterpretation of CBC data. Current Interpretive Data was last revised on 2017. Monocyte pct 16.2 % [facility] Comment: Interpretive Data Percent cell count reference ranges are not reported, since discordance with absolute values may lead to misinterpretation of CBC data. Current Interpretive Data was last revised on 2017. Eosinophil pct 1.4 % [facility] Comment: Interpretive Data Percent cell count reference ranges are not reported, since discordance with absolute values may lead to misinterpretation of CBC data. Current Interpretive Data was last revised on 2017. Basophil pct 0.2 % [facility] Comment: Interpretive Data Percent cell count reference ranges are not reported, since discordance with absolute values may lead to misinterpretation of CBC data. Current Interpretive Data was last revised on 2017. Blood 09/01/2024 3:21 AM CDT 09/01/2024 3:38 AM CDT us Smith Sawyer MD LAB BLOOD ORDERABLES Lila dawson Result [facility] Department [place] [address] * (ABNORMAL) CBC with auto differential (09/01/2024 3:21 AM CDT) WBC 4.14 3.80 - 9.90 K/cumm Hgb 9.0(L) 13.0 - 17.5 g/dL [facility] Hct 26.2(L) 38.9 - 50.3 % [facility] Plt 86(L) 150 - 400 K/cumm [facility] MPV 11.2 9.1 - 12.3 fL [facility] RBC 2.45(L) 4.30 - 5.80 M/cumm [facility] MCV 106.9(H) 81.3 - 96.4 fL [facility] MCH 36.7(H) 27.1 - 33.3 pg [facility] MCHC 34.4 32.3 - 35.7 g/dL [facility] RDW CV 21.0(H) 11.1 - 14.9 % [facility] RDW SD 80.0(H) 35.7 - 48.1 fL [facility] NRBC abs 0.00 0.00 - 0.01 K/cumm [facility] Blood 09/01/2024 3:21 AM CDT 09/01/2024 3:38 AM CDT us Smith Sawyer MD LAB BLOOD ORDERABLES Lila l Result Performing Organization Address [facility] de Phone Number [facility] Department [place] [address] * (ABNORMAL) Protime-INR (09/01/2024 3:21 AM CDT) [facility] PT 20.0(H) 9.7 - 13.0 sec INR 1.83(H) 0.90 - 1.20 [facility] Comment: Interpretive data Oral anticoagulant therapeutic ranges: Venous thromboembolism prophylaxis or treatment: 2.0-3.0 CARDIOLOGY Standard range: 2.0-3.0 High-intensity range: 2.5-3.5 Refer to indication-specific guidelines for appropriate target ranges for prosthetic heart valve replacement. Current interpretive data was last revised on 2019. Blood 09/01/2024 3:21 AM CDT 09/01/2024 3:36 AM CDT Zuleima Levine MD LAB BLOOD ORDERABLES Lila l Result Performing Organization Address [facility] Co de Phone Number [facility] Department [place] [address] * Phosphorus (09/01/2024 3:21 AM CDT) Pathologist [facility] Phosphorus, pl 2.8 2.3 - 4.5 mg/dL Blood 09/01/2024 3:21 AM CDT 09/01/2024 3:37 AM CDT Smith Sawyer MD LAB BLOOD ORDERABLES [place] [address] * Magnesium (09/01/2024 3:21 AM CDT) [facility] Magnesium 1.5 1.4 - 2.5 mg/dL Blood 09/01/2024 3:21 AM CDT 09/01/2024 3:37 AM CDT Zuleima Levine MD LAB BLOOD ORDERABLES Lila l Result Performing Organization Address City/[facility]/ZIP Co [place] [address] * (ABNORMAL) Comprehensive metabolic panel (09/01/2024 3:21 AM CDT) [facility] Sodium 143 135 - 145 mmol/L Potassium, pl 3.2(L) 3.3 - 4.9 mmol/L [facility] Chloride 108 97 - 110 mmol/L [facility] CO2 28 22 - 32 mmol/L [facility] Anion gap 7 2 - 15 mmol/L [facility] BUN 15 6 - 25 mg/dL [facility] Creatinine 0.95 0.80 - 1.30 mg/dL [facility] Glucose 123 70 - 199 mg/dL [facility] Comment: Interpretive Data Fasting glucose >/= 126 [...] 2022. Calcium 7.8(L) 8.5 - 10.3 mg/dL [facility] Bilirubin, total 0.6 0.1 - 1.2 mg/dL [facility] Protein, pl 4.7(L) 6.5 - 8.5 g/dL [facility] Albumin 2.3(L) 3.5 - 5.0 g/dL [facility] Alk phos 84 40 - 130 Units/L [facility] ALT 21 7 - 55 Units/L [facility] AST 44 10 - 50 Units/L [facility] Blood 09/01/2024 3:21 AM CDT 09/01/2024 3:37 AM CDT us Smith Sawyer MD LAB BLOOD ORDERABLES Lila dawson Result [facility] Department [place] [address] * XR Chest 1 View (08/31/2024 10:37 [...] Biopsy) 08/31/2024 11:47 AM CDT Narrative PATHOLOGY [facility] - 09/02/2024 10:06 AM CDT EPIC results best viewed via link to PDF [facility] Mariama Mart[facility]nez Laboratory [place] [address] Note to Patients: This report may contain [...] REPORT FINAL Patient Name: SULMA BAZAN Gender: M : 1950 (Age: 74) Address: [address] [place], [place] [id number] Hospital #: [id number] Taken:08/31/2024 Received:08/31/2024 Reported: 09/02/2024 Patient Type: [facility] Inpatient Service: Oncology Location: [facility] [address] Physician(s): MD Gilberto Melgar M.D. Shivani Shah Mattay, MD Diagnosis: Colon, rectosigmoid, biopsy - Colonic mucosa with prominent crypt apoptosis, focal acute cryptitis/crypt abscesses, rare crypt dropout, and reactive epithelial changes (see comment) gp/09/01/2024 11:24 By this signature, I attest that [...] Yamil DA. 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 Am J Surg Pathol. 2022Feb 03;47(10):6143-7155. doi: 10.1097/[id number]. Epub 2022Nov 29. PMID: [id number]. Shahla Lam D.O. History: The patient is [...] in aggregate). Filtered. Labeled A1. Jar 0. emg/08/31/2024 18:01 PA(s): Sofia Conklin, MS, PA (ASCP)CM By this signature, I attest that the above diagnosis is based upon my personal examination of the slides(and/or other material). Addenda/Procedures The performance characteristics of some immunohistochemical stains, fluorescence in-situ hybridization tests and immunophenotyping by flow cytometry cited in this report (if any) were determined by the Surgical Pathology and Flow Cytometry Departments at [facility] as part of an ongoing manufacturing quality manager program and in compliance with federally mandated [...] Surgical Pathology and Flow Cytometry Departments of [facility]. It has not been cleared or approved by the U. S. Food and Drug Administration. IMAGES AND SCANNED DOCUMENTS, IF INCLUDED, ONLY VIEWABLE IN PDF VERSION OF REPORT Abram Smith MD LAB PATHOLOGY ORDERABLES Final Result PATHOLOGY [facility] 3rd Floor [place], [place] [phone] * Flexible Sigmoidoscopy (08/31/2024 11:26 AM CDT) Anatomical Region Laterality Modality Other Narrative Procedure Note Abram Smith MD - 08/31/2024 11:26 AM CDT [facility] Patient Name: Sulma Bazan Procedure Date: 08/31/2024 11:26 AM Date of : 1950 Admit Type: Inpatient Age: 74 Gender: Male Attending MD: Abram Smith M.D. Room: [facility] ENDOSCOPY Note Status: Finalized Procedure: Flexible Sigmoidoscopy [...] were discussed and informed consentwas obtained. The [id number] Endoscope was introduced through the anus and [...] MD LAB BLOOD ORDERABLES Lila l Result [facility] Department [place] [address] * eGFR (08/31/2024 2:34 AM CDT) eGFR 87 >=60 mL/min/1. 73 m2 Comment: [...] MD LAB BLOOD ORDERABLES Lila eunice Result [facility] Department [place] [address] * (ABNORMAL) Differential, auto (08/31/2024 2:34 AM CDT) Pathologist [facility] Neutrophil abs 3.45 1.50 - 6.50 K/cumm Imm gran abs 0.05 0.00 - 0.10 K/cumm [facility] Lymphocyte abs 0.39(L) 0.80 - 3.30 K/cumm [facility] Monocyte abs 0.72 0.20 - 0.80 K/cumm [facility] Eosinophil abs 0.07 0.00 - 0.50 K/cumm [facility] Basophil abs 0.01 0.00 - 0.10 K/cumm [facility] Neutrophil pct 73.5 % [facility] Comment: Interpretive Data Percent cell count reference ranges are not reported, since discordance with absolute values may lead to misinterpretation of CBC data. Current Interpretive Data was last revised on 2017. Imm gran pct 1.1 % [facility] Comment: Interpretive Data Percent cell count reference ranges are not reported, since discordance with absolute values may lead to misinterpretation of CBC data. Current Interpretive Data was last revised on 2017. Lymphocyte pct 8.3 % [facility] Comment: Interpretive Data Percent cell count reference ranges are not reported, since discordance with absolute values may lead to misinterpretation of CBC data. Current Interpretive Data was last revised on 2017. Monocyte pct 15.4 % [facility] Comment: Interpretive Data Percent cell count reference ranges are not reported, since discordance with absolute values may lead to misinterpretation of CBC data. Current Interpretive Data was last revised on 2017. Eosinophil pct 1.5 % [facility] Comment: Interpretive Data Percent cell count reference ranges are not reported, since discordance with absolute values may lead to misinterpretation of CBC data. Current Interpretive Data was last revised on 2017. Basophil pct 0.2 % [facility] Comment: Interpretive Data Percent cell count reference ranges are not reported, since discordance with absolute values may lead to misinterpretation of CBC data. Current Interpretive Data was last revised on 2017. Blood 08/31/2024 2:34 AM CDT 08/31/2024 3:12 AM CDT us Smith Sawyer MD LAB BLOOD ORDERABLES Lila dawson Result [facility] Department [place] [address] * (ABNORMAL) CBC with auto differential (08/31/2024 2:34 AM CDT) Pathologist [facility] WBC 4.69 3.80 - 9.90 K/cumm Hgb 8.9(L) 13.0 - 17.5 g/dL [facility] Hct 25.5(L) 38.9 - 50.3 % [facility] Plt 90(L) 150 - 400 K/cumm [facility] MPV 10.6 9.1 - 12.3 fL [facility] RBC 2.38(L) 4.30 - 5.80 M/cumm [facility] MCV 107.1(H) 81.3 - 96.4 fL [facility] MCH 37.4(H) 27.1 - 33.3 pg [facility] MCHC 34.9 32.3 - 35.7 g/dL [facility] RDW CV 21.1(H) 11.1 - 14.9 % [facility] RDW SD 79.6(H) 35.7 - 48.1 fL [facility] NRBC abs 0.00 0.00 - 0.01 K/cumm [facility] Blood 08/31/2024 2:34 AM CDT 08/31/2024 3:12 AM CDT Smith Sawyer MD LAB BLOOD ORDERABLES Lila l Result Performing Organization Address [facility] de Phone Number [facility] [place] [address] * aPTT (08/31/2024 2:34 AM CDT) aPTT 30 28 - 38 sec Comment: Interpretive Data Heparin therapeutic range: 66.0 - 100.0 seconds. Range based on correlation with therapeutic heparin activity range of 0.3 - 0.7 Units/mL. Current interpretive data was last revised on 2023. Blood 08/31/2024 2:34 AM CDT 08/31/2024 3:04 AM CDT Smith Sawyer MD LAB BLOOD ORDERABLES Lila l Result Performing Organization Address [facility] de Phone Number [facility] [place] [address] * (ABNORMAL) Protime-INR (08/31/2024 2:34 AM CDT) PT 18.8(H) 9.7 - 13.0 sec INR 1.72(H) 0.90 - 1.20 [facility] Comment: Interpretive data Oral anticoagulant therapeutic ranges: Venous thromboembolism prophylaxis or treatment: 2.0-3.0 CARDIOLOGY Standard range: 2.0-3.0 High-intensity range: 2.5-3.5 Refer to indication-specific guidelines for appropriate target ranges for prosthetic heart valve replacement. Current interpretive data was last revised on 2019. Blood 08/31/2024 2:34 AM CDT 08/31/2024 3:04 AM CDT Result [facility] Zuleima Levine MD LAB BLOOD ORDERABLES Lila l Result Performing Organization Address [facility] de Phone Number [facility] [place] [address] * Type and screen (08/31/2024 2:34 AM CDT) ABO Rh A Positive Minna, indirect Negative [facility] Blood 08/31/2024 2:34 AM CDT 08/31/2024 3:06 AM CDT Narrative [facility] - 08/31/2024 7:31 AM CDT Has the patient had Daratumumab or Isatuximab in the past 6 months?->Unknown Smith Sawyer MD LAB BLOOD BANK TEST ORDER DEMETRIO Final Result Performing Organization Address [facility] [place] [address] * Uric acid (08/31/2024 2:34 AM CDT) [facility] Uric acid 6.6 3.0 - 8.0 mg/dL Blood 08/31/2024 2:34 AM CDT 08/31/2024 3:12 AM CDT Narrative [facility] - 08/31/2024 3:42 AM CDT Saturday and only. Morning draw. . Smith Sawyer MD LAB BLOOD ORDERABLES Lila l Result Performing Organization Address City/[facility]/ZIP Co de Phone Number [facility] [place] [address] * (ABNORMAL) Phosphorus (08/31/2024 2:34 AM CDT) Pathologist [facility] Phosphorus, pl 1.9(L) 2.3 - 4.5 mg/dL Blood 08/31/2024 2:34 AM CDT 08/31/2024 3:12 AM CDT Smith Sawyer MD LAB BLOOD ORDERABLES Lila l Result Performing Organization Address City/[facility] de Phone Number [facility] Department [place] [address] * (ABNORMAL) Lactate dehydrogenase (LD) (08/31/2024 2:34 AM CDT) [facility] Lactate dehydrogenase (LDH) 301(H) 100 - 250 Units/L Blood 08/31/2024 2:34 AM CDT 08/31/2024 3:12 AM CDT Narrative [facility] - 08/31/2024 3:42 AM CDT Saturday and only. Morning draw. Smith Sawyer MD LAB BLOOD ORDERABLES Lila l Result Performing Organization Address [facility] de Phone Number [facility] Department [place] [address] * (ABNORMAL) Comprehensive metabolic panel (08/31/2024 2:34 AM CDT) [facility] Sodium 139 135 - 145 mmol/L Potassium, pl 3.2(L) 3.3 - 4.9 mmol/L [facility] Chloride 107 97 - 110 mmol/L [facility] CO2 25 22 - 32 mmol/L [facility] Anion gap 7 2 - 15 mmol/L [facility] BUN 20 6 - 25 mg/dL [facility] Creatinine 0.92 0.80 - 1.30 mg/dL [facility] Glucose 113 70 - 199 mg/dL [facility] Comment: Interpretive Data Fasting glucose >/= 126 [...] 2022. Calcium 8.0(L) 8.5 - 10.3 mg/dL [facility] Bilirubin, total 0.5 0.1 - 1.2 mg/dL [facility] Protein, pl 4.8(L) 6.5 - 8.5 g/dL [facility] Albumin 2.6(L) 3.5 - 5.0 g/dL [facility] Alk phos 82 40 - 130 Units/L [facility] ALT 23 7 - 55 Units/L [facility] AST 48 10 - 50 Units/L [facility] Blood 08/31/2024 2:34 AM CDT 08/31/2024 3:12 AM CDT Smith Sawyer MD LAB BLOOD ORDERABLES Lila dawson Result Performing Organization Address [facility] de Phone Number [facility] [place] [address] * (ABNORMAL) Protime-INR (08/30/2024 4:30 AM CDT) PT 20.1(H) 9.7 - 13.0 sec INR 1.84(H) 0.90 - 1.20 [facility] Comment: Interpretive data Oral anticoagulant therapeutic ranges: Venous thromboembolism prophylaxis or treatment: 2.0-3.0 CARDIOLOGY Standard range: 2.0-3.0 High-intensity range: 2.5-3.5 Refer to indication-specific guidelines for appropriate target ranges for prosthetic heart valve replacement. Current interpretive data was last revised on 2019. Blood 08/30/2024 4:30 AM CDT 08/30/2024 2:53 AM CDT Zuleima Levine MD LAB BLOOD ORDERABLES Lila l Result Performing Organization Address City/[facility] Co de Phone Number [facility] Department [place] [address] * eGFR (08/30/2024 2:34 AM CDT) eGFR [...] MD LAB BLOOD ORDERABLES Lila dawson Result [facility] Department [place] [address] * (ABNORMAL) Differential, auto (08/30/2024 2:34 AM CDT) Pathologist [facility] Neutrophil abs 3.58 1.50 - 6.50 K/cumm Imm gran abs 0.06 0.00 - 0.10 K/cumm [facility] Lymphocyte abs 0.20(L) 0.80 - 3.30 K/cumm [facility] Monocyte abs 0.72 0.20 - 0.80 K/cumm [facility] Eosinophil abs 0.08 0.00 - 0.50 K/cumm [facility] Basophil abs 0.01 0.00 - 0.10 K/cumm [facility] Neutrophil pct 77.0 % [facility] Comment: Interpretive Data Percent cell count reference ranges are not reported, since discordance with absolute values may lead to misinterpretation of CBC data. Current Interpretive Data was last revised on 2017. Imm gran pct 1.3 % [facility] Comment: Interpretive Data Percent cell count reference ranges are not reported, since discordance with absolute values may lead to misinterpretation of CBC data. Current Interpretive Data was last revised on 2017. Lymphocyte pct 4.3 % [facility] Comment: Interpretive Data Percent cell count reference ranges are not reported, since discordance with absolute values may lead to misinterpretation of CBC data. Current Interpretive Data was last revised on 2017. Monocyte pct 15.5 % [facility] Comment: Interpretive Data Percent cell count reference ranges are not reported, since discordance with absolute values may lead to misinterpretation of CBC data. Current Interpretive Data was last revised on 2017. Eosinophil pct 1.7 % [facility] Comment: Interpretive Data Percent cell count reference ranges are not reported, since discordance with absolute values may lead to misinterpretation of CBC data. Current Interpretive Data was last revised on 2017. Basophil pct 0.2 % [facility] Comment: Interpretive Data Percent cell count reference ranges are not reported, since discordance with absolute values may lead to misinterpretation of CBC data. Current Interpretive Data was last revised on 2017. Blood 08/30/2024 2:34 AM CDT 08/30/2024 2:56 AM CDT us Smith Sawyer MD LAB BLOOD ORDERABLES Lila dawson Result [facility] Department [place] [address] * (ABNORMAL) CBC with auto differential (08/30/2024 2:34 AM CDT) WBC 4.65 3.80 - 9.90 K/cumm Hgb 8.5(L) 13.0 - 17.5 g/dL [facility] Hct 24.7(L) 38.9 - 50.3 % [facility] Plt 86(L) 150 - 400 K/cumm [facility] MPV 10.4 9.1 - 12.3 fL [facility] RBC 2.28(L) 4.30 - 5.80 M/cumm [facility] MCV 108.3(H) 81.3 - 96.4 fL [facility] MCH 37.3(H) 27.1 - 33.3 pg [facility] MCHC 34.4 32.3 - 35.7 g/dL [facility] RDW CV 21.0(H) 11.1 - 14.9 % [facility] RDW SD 81.8(H) 35.7 - 48.1 fL [facility] NRBC abs 0.02(H) 0.00 - 0.01 K/cumm [facility] Blood 08/30/2024 2:34 AM CDT 08/30/2024 2:56 AM CDT Smith Sawyer MD LAB BLOOD ORDERABLES Lila l Result Performing Organization Address City/[facility] Co de Phone Number [facility] Department [place] [address] * Phosphorus (08/30/2024 2:34 AM CDT) Phosphorus, pl 2.7 2.3 - 4.5 mg/dL Blood 08/30/2024 2:34 AM CDT 08/30/2024 2:56 AM CDT Smith Sawyer MD LAB BLOOD ORDERABLES Lila l Result [facility] [place] [address] * Magnesium (08/30/2024 2:34 AM CDT) Magnesium 1.8 1.4 - 2.5 mg/dL Blood 08/30/2024 2:34 AM CDT 08/30/2024 2:56 AM CDT Zuleima Levine MD LAB BLOOD ORDERABLES Lila dawson Result [facility] Department [place] [address] * (ABNORMAL) Comprehensive metabolic panel (08/30/2024 2:34 AM CDT) Sodium 141 135 - 145 mmol/L Potassium, pl 3.4 3.3 - 4.9 mmol/L [facility] Chloride 109 97 - 110 mmol/L [facility] CO2 23 22 - 32 mmol/L [facility] Anion gap 9 2 - 15 mmol/L [facility] BUN 24 6 - 25 mg/dL [facility] Creatinine 1.00 0.80 - 1.30 mg/dL [facility] Glucose 105 70 - 199 mg/dL [facility] Comment: Interpretive Data Fasting glucose >/= 126 [...] 2022. Calcium 8.0(L) 8.5 - 10.3 mg/dL [facility] Bilirubin, total 0.4 0.1 - 1.2 mg/dL [facility] Protein, pl 4.8(L) 6.5 - 8.5 g/dL [facility] Albumin 3.1(L) 3.5 - 5.0 g/dL [facility] Alk phos 69 40 - 130 Units/L [facility] ALT 25 7 - 55 Units/L [facility] AST 47 10 - 50 Units/L [facility] Blood 08/30/2024 2:34 AM CDT 08/30/2024 2:56 AM CDT Smith Sawyer MD LAB BLOOD ORDERABLES Lila l Result Performing Organization Address [facility] Co de Phone Number [facility] [place] [address] * eGFR (08/29/2024 1:30 AM CDT) eGFR [...] ORDERABLES Lila l Result Performing Organization Address [facility] Co de Phone Number [facility] [place] [address] * (ABNORMAL) Differential, auto (08/29/2024 1:30 AM CDT) Neutrophil abs 3.07 1.50 - 6.50 K/cumm Imm gran abs 0.07 0.00 - 0.10 K/cumm [facility] Lymphocyte abs 0.29(L) 0.80 - 3.30 K/cumm [facility] Monocyte abs 0.91(H) 0.20 - 0.80 K/cumm [facility] Eosinophil abs 0.05 0.00 - 0.50 K/cumm [facility] Basophil abs 0.02 0.00 - 0.10 K/cumm [facility] Neutrophil pct 69.6 % [facility] Comment: Interpretive Data Percent cell count reference ranges are not reported, since discordance with absolute values may lead to misinterpretation of CBC data. Current Interpretive Data was last revised on 2017. Imm gran pct 1.6 % [facility] Comment: Interpretive Data Percent cell count reference ranges are not reported, since discordance with absolute values may lead to misinterpretation of CBC data. Current Interpretive Data was last revised on 2017. Lymphocyte pct 6.6 % [facility] Comment: Interpretive Data Percent cell count reference ranges are not reported, since discordance with absolute values may lead to misinterpretation of CBC data. Current Interpretive Data was last revised on 2017. Monocyte pct 20.6 % [facility] Comment: Interpretive Data Percent cell count reference ranges are not reported, since discordance with absolute values may lead to misinterpretation of CBC data. Current Interpretive Data was last revised on 2017. Eosinophil pct 1.1 % [facility] Comment: Interpretive Data Percent cell count reference ranges are not reported, since discordance with absolute values may lead to misinterpretation of CBC data. Current Interpretive Data was last revised on 2017. Basophil pct 0.5 % [facility] Comment: Interpretive Data Percent cell count reference ranges are not reported, since discordance with absolute values may lead to misinterpretation of CBC data. Current Interpretive Data was last revised on 2017. Blood 08/29/2024 1:30 AM CDT 08/29/2024 1:42 AM CDT us Smith Sawyer MD LAB BLOOD ORDERABLES Lila dawson Result [facility] [place] [address] * (ABNORMAL) CBC with auto differential (08/29/2024 1:30 AM CDT) WBC 4.41 3.80 - 9.90 K/cumm Hgb 8.9(L) 13.0 - 17.5 g/dL [facility] Hct 26.7(L) 38.9 - 50.3 % [facility] Plt 112(L) 150 - 400 K/cumm [facility] MPV 10.4 9.1 - 12.3 fL [facility] RBC 2.45(L) 4.30 - 5.80 M/cumm [facility] MCV 109.0(H) 81.3 - 96.4 fL [facility] MCH 36.3(H) 27.1 - 33.3 pg [facility] MCHC 33.3 32.3 - 35.7 g/dL [facility] RDW CV 21.4(H) 11.1 - 14.9 % [facility] RDW SD 83.0(H) 35.7 - 48.1 fL [facility] NRBC abs 0.00 0.00 - 0.01 K/cumm [facility] Blood 08/29/2024 1:30 AM CDT 08/29/2024 1:42 AM CDT Smith Sawyer MD LAB BLOOD ORDERABLES Lila dawson Result [facility] Department [place] [address] * (ABNORMAL) Protime-INR (08/29/2024 1:30 AM CDT) Pathologist [facility] PT 28.4(H) 9.7 - 13.0 sec INR 2.58(H) 0.90 - 1.20 [facility] Comment: Interpretive data Oral anticoagulant therapeutic ranges: Venous thromboembolism prophylaxis or treatment: 2.0-3.0 CARDIOLOGY Standard range: 2.0-3.0 High-intensity range: 2.5-3.5 Refer to indication-specific guidelines for appropriate target ranges for prosthetic heart valve replacement. Current interpretive data was last revised on 2019. Blood 08/29/2024 1:30 AM CDT 08/29/2024 1:51 AM CDT Zuleima Levine MD LAB BLOOD ORDERABLES Lila l Result Performing Organization Address City/[facility]/ZIP Co de Phone Number [facility] Department [place] [address] * Phosphorus (08/29/2024 1:30 AM CDT) Pathologist [facility] Phosphorus, pl 2.4 2.3 - 4.5 mg/dL Blood 08/29/2024 1:30 AM CDT 08/29/2024 1:42 AM CDT Smith Sawyer MD LAB BLOOD ORDERABLES Lila l Result Performing Organization Address [facility] de Phone Number [facility] Department [place] [address] * (ABNORMAL) Comprehensive metabolic panel (08/29/2024 1:30 AM CDT) [facility] Sodium 142 135 - 145 mmol/L Potassium, pl 3.8 3.3 - 4.9 mmol/L [facility] Chloride 110 97 - 110 mmol/L [facility] CO2 19(L) 22 - 32 mmol/L [facility] Anion gap 13 2 - 15 mmol/L [facility] BUN 28(H) 6 - 25 mg/dL [facility] Creatinine 1.10 0.80 - 1.30 mg/dL [facility] Glucose 108 70 - 199 mg/dL [facility] Comment: Interpretive Data Fasting glucose >/= 126 [...] 2022. Calcium 8.1(L) 8.5 - 10.3 mg/dL [facility] Bilirubin, total 0.5 0.1 - 1.2 mg/dL [facility] Protein, pl 5.3(L) 6.5 - 8.5 g/dL [facility] Albumin 3.3(L) 3.5 - 5.0 g/dL [facility] Alk phos 72 40 - 130 Units/L [facility] ALT 27 7 - 55 Units/L [facility] AST 53(H) 10 - 50 Units/L [facility] Blood 08/29/2024 1:30 AM CDT 08/29/2024 1:42 AM CDT us Smith Sawyer MD LAB BLOOD ORDERABLES Lila l Result Performing Organization Address [facility]/ZIP Co de Phone Number [facility] Department [place] [address] * Transfuse plasma Standard plasma (08/28/2024 2:39 PM CDT) Blood Zuleima Levine MD BLOOD TRANSFUSION ORDERAB LES Edited Result - Final Performing Organization Address [facility]/ZIP Co de Phone Number [facility] [place] [address] * (ABNORMAL) Protime-INR (08/28/2024 2:30 PM CDT) PT 24.1(H) 9.7 - 13.0 sec INR 2.20(H) 0.90 - 1.20 [facility] Comment: Interpretive data Oral anticoagulant therapeutic ranges: Venous thromboembolism prophylaxis or treatment: 2.0-3.0 CARDIOLOGY Standard range: 2.0-3.0 High-intensity range: 2.5-3.5 Refer to indication-specific guidelines for appropriate target ranges for prosthetic heart valve replacement. Current interpretive data was last revised on 2019. Blood 08/28/2024 2:30 PM CDT 08/28/2024 2:58 PM CDT Narrative [facility] - 08/28/2024 3:26 PM CDT 1 hour after transfusion of Plasma completed. Zuleima Levine MD LAB BLOOD ORDERABLES Lila l Result Performing Organization Address [facility] Co de Phone Number [facility] Department [place] [address] * Transfuse plasma Standard plasma (08/28/2024 12:29 PM CDT) Blood Zuleima Levine MD BLOOD TRANSFUSION ORDERAB LES Final Result Performing Organization Address [facility] de Phone Number [facility] [place] [address] * Prepare plasma: 2 Units Standard plasma (08/28/2024 10:04 AM CDT) [facility] Product code [id number] Unit Number [id number] W [facility] Product Blood Type APOS [facility] Dispense Status PRESUMED TRANSFUSED [facility] Product code [id number] [facility] Unit Number [id number] K [facility] Product Blood Type APOS [facility] Dispense Status PRESUMED TRANSFUSED [facility] Blood Venous blood specimen / Unknown 08/28/2024 10:04 AM CDT 08/28/2024 10:04 AM CDT Narrative [facility] - 08/29/2024 12:40 PM CDT Is this plasma order intended for a COVID-19 patient as convalescent plasma?->Standard plasma Special Requirements Needed?->No Date required:-[id number] FFP # of Units:-2-Units Reasons:-Urgent invasive procedure, INR Zuleima Levine MD BLOOD BANK PRODUCT ORDERA BLES Final Result Performing Organization Address [facility] Co de Phone Number [facility] Department [place] [address] * Potassium, whole blood (08/28/2024 9:19 AM CDT) Potassium, bld 3.4 3.3 - 4.9 mmol/L Blood 08/28/2024 9:19 AM CDT 08/28/2024 9:28 AM CDT Zuleima Levine MD LAB BLOOD ORDERABLES [place] [address] * (ABNORMAL) Protime-INR (08/28/2024 9:19 AM CDT) Pathologist [facility] PT 27.4(H) 9.7 - 13.0 sec INR 2.49(H) 0.90 - 1.20 [facility] Comment: Interpretive data Oral anticoagulant therapeutic ranges: Venous thromboembolism prophylaxis or treatment: 2.0-3.0 CARDIOLOGY Standard range: 2.0-3.0 High-intensity range: 2.5-3.5 Refer to indication-specific guidelines for appropriate target ranges for prosthetic heart valve replacement. Current interpretive data was last revised on 2019. Blood 08/28/2024 9:19 AM CDT 08/28/2024 9:33 AM CDT Zuleima Levine MD LAB BLOOD ORDERABLES [place] [address] * Transfuse plasma Standard plasma (08/28/2024 8:41 AM CDT) Blood Zuleima Levine MD BLOOD TRANSFUSION ORDERAB [place]ES [place] [address] * Prepare plasma: 1 Units Standard plasma (08/28/2024 6:40 AM CDT) Product code [id number] Unit Number [id number] [facility] Product Blood Type APOS [facility] Dispense Status PRESUMED TRANSFUSED [facility] Blood Venous blood specimen / Unknown 08/28/2024 6:40 AM CDT 08/28/2024 6:40 AM CDT Narrative [facility] - 08/28/2024 8:00 PM CDT Is this plasma order intended for a COVID-19 patient as convalescent plasma?->Standard plasma Special Requirements Needed?->No Date required:-[id number] FFP # of Units:-1-Units Reasons:-Urgent invasive procedure, INR us Zuleima Levine MD BLOOD BANK PRODUCT ORDERA BLES Final Result Performing Organization Address [facility] de Phone Number [facility] Department [place] [address] * (ABNORMAL) Protime-INR (08/28/2024 6:05 AM CDT) PT 28.5(H) 9.7 - 13.0 sec INR 2.59(H) 0.90 - 1.20 [facility] Comment: Interpretive data Oral anticoagulant therapeutic ranges: Venous thromboembolism prophylaxis or treatment: 2.0-3.0 CARDIOLOGY Standard range: 2.0-3.0 High-intensity range: 2.5-3.5 Refer to indication-specific guidelines for appropriate target ranges for prosthetic heart valve replacement. Current interpretive data was last revised on 2019. Blood 08/28/2024 6:05 AM CDT 08/28/2024 6:14 AM CDT Donnie Castro MD LAB BLOOD ORDERABLES Final Result Performing Organization Address [facility] Co de Phone Number [facility] [place] [address] * Prepare plasma: 1 Units Standard plasma (08/28/2024 2:12 AM CDT) Product code [id number] Unit Number [id number] X [facility] Product Blood Type APOS [facility] Dispense Status PRESUMED TRANSFUSED [facility] Blood Venous blood specimen / Unknown 08/28/2024 2:12 AM CDT 08/28/2024 2:12 AM CDT Narrative [facility] - 08/28/2024 4:01 PM CDT Is this plasma order intended for a COVID-19 patient as convalescent plasma?->Standard plasma Special Requirements Needed?->No Date required:-[id number] FFP # of Units:-1-Units Reasons:-Urgent invasive procedure, INR Zuleima Levine MD BLOOD BANK PRODUCT ORDERA BLES Final Result Performing Organization Address [facility] de Phone Number [facility] Department [place] [address] * eGFR (08/28/2024 1:32 AM CDT) eGFR 78 >=60 mL/min/1. 73 [...] MD LAB BLOOD ORDERABLES Lila eunice Result [facility] Department [place] [address] * (ABNORMAL) Differential, auto (08/28/2024 1:32 AM CDT) Neutrophil abs 1.95 1.50 - 6.50 K/cumm Imm gran abs 0.04 0.00 - 0.10 K/cumm [facility] Lymphocyte abs 0.19(L) 0.80 - 3.30 K/cumm [facility] Monocyte abs 0.67 0.20 - 0.80 K/cumm [facility] Eosinophil abs 0.14 0.00 - 0.50 K/cumm [facility] Basophil abs 0.00 0.00 - 0.10 K/cumm [facility] Neutrophil pct 65.2 % [facility] Comment: Interpretive Data Percent cell count reference ranges are not reported, since discordance with absolute values may lead to misinterpretation of CBC data. Current Interpretive Data was last revised on 2017. Imm gran pct 1.3 % [facility] Comment: Interpretive Data Percent cell count reference ranges are not reported, since discordance with absolute values may lead to misinterpretation of CBC data. Current Interpretive Data was last revised on 2017. Lymphocyte pct 6.4 % [facility] Comment: Interpretive Data Percent cell count reference ranges are not reported, since discordance with absolute values may lead to misinterpretation of CBC data. Current Interpretive Data was last revised on 2017. Monocyte pct 22.4 % [facility] Comment: Interpretive Data Percent cell count reference ranges are not reported, since discordance with absolute values may lead to misinterpretation of CBC data. Current Interpretive Data was last revised on 2017. Eosinophil pct 4.7 % [facility] Comment: Interpretive Data Percent cell count reference ranges are not reported, since discordance with absolute values may lead to misinterpretation of CBC data. Current Interpretive Data was last revised on 2017. Basophil pct 0.0 % [facility] Comment: Interpretive Data Percent cell count reference ranges are not reported, since discordance with absolute values may lead to misinterpretation of CBC data. Current Interpretive Data was last revised on 2017. Blood 08/28/2024 1:32 AM CDT 08/28/2024 1:48 AM CDT us Smith Sawyer MD LAB BLOOD ORDERABLES Lila dawson Result [facility] Department [place] [address] * (ABNORMAL) CBC with auto differential (08/28/2024 1:32 AM CDT) WBC 2.99(L) 3.80 - 9.90 K/cumm Hgb 8.7(L) 13.0 - 17.5 g/dL [facility] Hct 24.8(L) 38.9 - 50.3 % [facility] Plt 91(L) 150 - 400 K/cumm [facility] MPV 10.0 9.1 - 12.3 fL [facility] RBC 2.30(L) 4.30 - 5.80 M/cumm [facility] MCV 107.8(H) 81.3 - 96.4 fL [facility] MCH 37.8(H) 27.1 - 33.3 pg [facility] MCHC 35.1 32.3 - 35.7 g/dL [facility] RDW CV 21.1(H) 11.1 - 14.9 % [facility] RDW SD 79.5(H) 35.7 - 48.1 fL [facility] NRBC abs 0.02(H) 0.00 - 0.01 K/cumm [facility] Blood 08/28/2024 1:32 AM CDT 08/28/2024 1:48 AM CDT Smith Sawyer MD LAB BLOOD ORDERABLES Lila l Result Performing Organization Address [facility] Co de Phone Number [facility] [place] [address] * (ABNORMAL) Protime-INR (08/28/2024 1:32 AM CDT) PT 32.7(H) 9.7 - 13.0 sec INR 2.96(H) 0.90 - 1.20 [facility] Comment: Interpretive data Oral anticoagulant therapeutic ranges: Venous thromboembolism prophylaxis or treatment: 2.0-3.0 CARDIOLOGY Standard range: 2.0-3.0 High-intensity range: 2.5-3.5 Refer to indication-specific guidelines for appropriate target ranges for prosthetic heart valve replacement. Current interpretive data was last revised on 2019. Blood 08/28/2024 1:32 AM CDT 08/28/2024 1:40 AM CDT Stewart Varhgese MD LAB BLOOD ORDERABLES Lila l Result Performing Organization Address [facility] [place] [address] * Phosphorus (08/28/2024 1:32 AM CDT) Pathologist [facility] Phosphorus, pl 2.9 2.3 - 4.5 mg/dL Blood 08/28/2024 1:32 AM CDT 08/28/2024 1:48 AM CDT Smith Sawyer MD LAB BLOOD ORDERABLES Lila l Result Performing Organization Address [facility] Co de Phone Number [facility] [place] [address] * (ABNORMAL) Comprehensive metabolic panel (08/28/2024 1:32 AM CDT) Sodium 141 135 - 145 mmol/L Potassium, pl 3.0(L) 3.3 - 4.9 mmol/L [facility] Chloride 112(H) 97 - 110 mmol/L [facility] CO2 21(L) 22 - 32 mmol/L [facility] Anion gap 8 2 - 15 mmol/L [facility] BUN 26(H) 6 - 25 mg/dL [facility] Creatinine 1.01 0.80 - 1.30 mg/dL [facility] Glucose 88 70 - 199 mg/dL [facility] Comment: Interpretive Data Fasting glucose >/= 126 [...] 2022. Calcium 7.7(L) 8.5 - 10.3 mg/dL [facility] Bilirubin, total 0.5 0.1 - 1.2 mg/dL [facility] Protein, pl 4.4(L) 6.5 - 8.5 g/dL [facility] Albumin 2.7(L) 3.5 - 5.0 g/dL [facility] Alk phos 60 40 - 130 Units/L [facility] ALT 23 7 - 55 Units/L [facility] AST 39 10 - 50 Units/L [facility] Blood 08/28/2024 1:32 AM CDT 08/28/2024 1:48 AM CDT us Smith Sawyer MD LAB BLOOD ORDERABLES Lila dawson Result [facility] Department [place] [address] * Rotavirus antigen Stool (08/27/2024 10:04 AM CDT) Rotavirus Ag Negative Negative Comment: Interpretative Data Testing performed at the [facility] using antigen detection with Xpect Rotavirus lateral flow assay. This test is cleared by the [place] Food and Drug Administration for fresh stool specimens. The performance characteristics have been verified by the [facility]. A negative result does not [...] 4 AM CDT 08/27/2024 12:50 PM CDT Zuleima Levine MD LAB MICROBIOLOGY - GENERA L ORDERABLES Final Result [facility] Department [place] [address] * eGFR (08/27/2024 12:29 AM CDT) eGFR [...] MD LAB BLOOD ORDERABLES Lila eunice Result [facility] Department [place] [address] * (ABNORMAL) Differential, auto (08/27/2024 12:29 AM CDT) Neutrophil abs 1.83 1.50 - 6.50 K/cumm Imm gran abs 0.04 0.00 - 0.10 K/cumm [facility] Lymphocyte abs 0.12(L) 0.80 - 3.30 K/cumm [facility] Monocyte abs 0.69 0.20 - 0.80 K/cumm [facility] Eosinophil abs 0.07 0.00 - 0.50 K/cumm [facility] Basophil abs 0.01 0.00 - 0.10 K/cumm [facility] Neutrophil pct 66.4 % [facility] Comment: Interpretive Data Percent cell count reference ranges are not reported, since discordance with absolute values may lead to misinterpretation of CBC data. Current Interpretive Data was last revised on 2017. Imm gran pct 1.4 % [facility] Comment: Interpretive Data Percent cell count reference ranges are not reported, since discordance with absolute values may lead to misinterpretation of CBC data. Current Interpretive Data was last revised on 2017. Lymphocyte pct 4.3 % [facility] Comment: Interpretive Data Percent cell count reference ranges are not reported, since discordance with absolute values may lead to misinterpretation of CBC data. Current Interpretive Data was last revised on 2017. Monocyte pct 25.0 % [facility] Comment: Interpretive Data Percent cell count reference ranges are not reported, since discordance with absolute values may lead to misinterpretation of CBC data. Current Interpretive Data was last revised on 2017. Eosinophil pct 2.5 % [facility] Comment: Interpretive Data Percent cell count reference ranges are not reported, since discordance with absolute values may lead to misinterpretation of CBC data. Current Interpretive Data was last revised on 2017. Basophil pct 0.4 % [facility] Comment: Interpretive Data Percent cell count reference ranges are not reported, since discordance with absolute values may lead to misinterpretation of CBC data. Current Interpretive Data was last revised on 2017. Blood 08/27/2024 12:2 9 AM CDT 08/27/2024 12:43 AM CDT Smith Sawyer MD LAB BLOOD ORDERABLES Lila dawson Result [facility] Department [place] [address] * (ABNORMAL) CBC with auto differential (08/27/2024 12:29 AM CDT) WBC 2.76(L) 3.80 - 9.90 K/cumm Hgb 9.0(L) 13.0 - 17.5 g/dL [facility] Hct 25.4(L) 38.9 - 50.3 % [facility] Plt 112(L) 150 - 400 K/cumm [facility] MPV 10.0 9.1 - 12.3 fL [facility] RBC 2.41(L) 4.30 - 5.80 M/cumm [facility] MCV 105.4(H) 81.3 - 96.4 fL [facility] MCH 37.3(H) 27.1 - 33.3 pg [facility] MCHC 35.4 32.3 - 35.7 g/dL [facility] RDW CV 19.9(H) 11.1 - 14.9 % [facility] RDW SD 73.0(H) 35.7 - 48.1 fL [facility] NRBC abs 0.05(H) 0.00 - 0.01 K/cumm [facility] Blood 08/27/2024 12:2 9 AM CDT 08/27/2024 12:43 AM CDT Smith Sawyer MD LAB BLOOD ORDERABLES Lila l Result Performing Organization Address [facility] de Phone Number [facility] [place] [address] * (ABNORMAL) Protime-INR (08/27/2024 12:29 AM CDT) PT 27.0(H) 9.7 - 13.0 sec INR 2.45(H) 0.90 - 1.20 [facility] Comment: Interpretive data Oral anticoagulant therapeutic ranges: Venous thromboembolism prophylaxis or treatment: 2.0-3.0 CARDIOLOGY Standard range: 2.0-3.0 High-intensity range: 2.5-3.5 Refer to indication-specific guidelines for appropriate target ranges for prosthetic heart valve replacement. Current interpretive data was last revised on 2019. Blood 08/27/2024 12:2 9 AM CDT 08/27/2024 12:49 AM CDT Stewart Varghese MD LAB BLOOD ORDERABLES Lila l Result Performing Organization Address [facility] de Phone Number [facility] [place] [address] * Type and screen (08/27/2024 12:29 AM CDT) ABO Rh A Positive Minna, indirect Negative [facility] Blood 08/27/2024 12:2 9 AM CDT 08/27/2024 12:46 AM CDT Narrative [facility] - 08/27/2024 2:10 AM CDT Has the patient had Daratumumab or Isatuximab in the past 6 months?->Unknown Smith Sawyer MD LAB BLOOD BANK TEST ORDER DEMETRIO Final Result Performing Organization Address [facility] Co de Phone Number [facility] [place] [address] * Uric acid (08/27/2024 12:29 AM CDT) Uric acid 6.9 3.0 - 8.0 mg/dL Blood 08/27/2024 12:2 9 AM CDT 08/27/2024 12:43 AM CDT Narrative [facility] - 08/27/2024 1:11 AM CDT Saturday and only. Morning draw. . Smith Sawyer MD LAB BLOOD ORDERABLES Lila l Result Performing Organization Address [facility] [place] [address] * (ABNORMAL) Phosphorus (08/27/2024 12:29 AM CDT) Pathologist [facility] Phosphorus, pl 2.2(L) 2.3 - 4.5 mg/dL Blood 08/27/2024 12:2 9 AM CDT 08/27/2024 12:43 AM CDT Smith Sawyer MD LAB BLOOD ORDERABLES Lila l Result Performing Organization Address City/[facility]/ZIP Co de Phone Number [facility] Department [place] [address] * Magnesium (08/27/2024 12:29 AM CDT) Magnesium 1.7 1.4 - 2.5 mg/dL Blood 08/27/2024 12:2 9 AM CDT 08/27/2024 12:43 AM CDT Zuleima Levine MD LAB BLOOD ORDERABLES Lila l Result Performing Organization Address City/[facility]/ZIP Co de Phone Number [facility] Department [place] [address] * (ABNORMAL) Lactate dehydrogenase (LD) (08/27/2024 12:29 AM CDT) [facility] Lactate dehydrogenase (LDH) 296(H) 100 - 250 Units/L Blood 08/27/2024 12:2 9 AM CDT 08/27/2024 12:43 AM CDT Narrative [facility] - 08/27/2024 1:11 AM CDT Saturday and only. Morning draw. Smith Sawyer MD LAB BLOOD ORDERABLES Lila dawson Result [facility] Department [place] [address] * (ABNORMAL) Comprehensive metabolic panel (08/27/2024 12:29 AM CDT) [facility] Sodium 142 135 - 145 mmol/L Potassium, pl 3.4 3.3 - 4.9 mmol/L [facility] Chloride 112(H) 97 - 110 mmol/L [facility] CO2 19(L) 22 - 32 mmol/L [facility] Anion gap 11 2 - 15 mmol/L [facility] BUN 29(H) 6 - 25 mg/dL [facility] Creatinine 1.01 0.80 - 1.30 mg/dL [facility] Glucose 116 70 - 199 mg/dL [facility] Comment: Interpretive Data Fasting glucose >/= 126 [...] 2022. Calcium 7.8(L) 8.5 - 10.3 mg/dL [facility] Bilirubin, total 0.6 0.1 - 1.2 mg/dL [facility] Protein, pl 4.8(L) 6.5 - 8.5 g/dL [facility] Albumin 3.0(L) 3.5 - 5.0 g/dL [facility] Alk phos 68 40 - 130 Units/L [facility] ALT 20 7 - 55 Units/L [facility] AST 37 10 - 50 Units/L [facility] Blood 08/27/2024 12:2 9 AM CDT 08/27/2024 12:43 AM CDT Smith Sawyer MD LAB BLOOD ORDERABLES Lila dawson Result Performing Organization Address [facility] Co de Phone Number [facility] [place] [address] * (ABNORMAL) Protime-INR (08/26/2024 5:32 PM CDT) Pathologist [facility] PT 23.9(H) 9.7 - 13.0 sec INR 2.18(H) 0.90 - 1.20 [facility] Comment: Interpretive data Oral anticoagulant therapeutic ranges: Venous thromboembolism prophylaxis or treatment: 2.0-3.0 CARDIOLOGY Standard range: 2.0-3.0 High-intensity range: 2.5-3.5 Refer to indication-specific guidelines for appropriate target ranges for prosthetic heart valve replacement. Current interpretive data was last revised on 2019. Blood 08/26/2024 5:32 PM CDT 08/26/2024 5:54 PM CDT Result [facility] Zuleima Levine MD LAB BLOOD ORDERABLES Lila dawson Result Performing Organization Address City/[facility] Co de Phone Number [facility] [place] [address] * eGFR (08/26/2024 2:08 AM CDT) eGFR [...] MD LAB BLOOD ORDERABLES Lila dawson Result [facility] Department [place] [address] * (ABNORMAL) Differential, auto (08/26/2024 2:08 AM CDT) Neutrophil abs 3.03 1.50 - 6.50 K/cumm Imm gran abs 0.06 0.00 - 0.10 K/cumm [facility] Lymphocyte abs 0.27(L) 0.80 - 3.30 K/cumm [facility] Monocyte abs 0.85(H) 0.20 - 0.80 K/cumm [facility] Eosinophil abs 0.13 0.00 - 0.50 K/cumm [facility] Basophil abs 0.01 0.00 - 0.10 K/cumm [facility] Neutrophil pct 69.7 % [facility] Comment: Interpretive Data Percent cell count reference ranges are not reported, since discordance with absolute values may lead to misinterpretation of CBC data. Current Interpretive Data was last revised on 2017. Imm gran pct 1.4 % [facility] Comment: Interpretive Data Percent cell count reference ranges are not reported, since discordance with absolute values may lead to misinterpretation of CBC data. Current Interpretive Data was last revised on 2017. Lymphocyte pct 6.2 % [facility] Comment: Interpretive Data Percent cell count reference ranges are not reported, since discordance with absolute values may lead to misinterpretation of CBC data. Current Interpretive Data was last revised on 2017. Monocyte pct 19.5 % [facility] Comment: Interpretive Data Percent cell count reference ranges are not reported, since discordance with absolute values may lead to misinterpretation of CBC data. Current Interpretive Data was last revised on 2017. Eosinophil pct 3.0 % [facility] Comment: Interpretive Data Percent cell count reference ranges are not reported, since discordance with absolute values may lead to misinterpretation of CBC data. Current Interpretive Data was last revised on 2017. Basophil pct 0.2 % [facility] Comment: Interpretive Data Percent cell count reference ranges are not reported, since discordance with absolute values may lead to misinterpretation of CBC data. Current Interpretive Data was last revised on 2017. Blood 08/26/2024 2:08 AM CDT 08/26/2024 2:24 AM CDT us Smith Sawyer MD LAB BLOOD ORDERABLES Lila dawson Result [facility] Department [place] [address] * (ABNORMAL) CBC with auto differential (08/26/2024 2:08 AM CDT) WBC 4.35 3.80 - 9.90 K/cumm Hgb 9.3(L) 13.0 - 17.5 g/dL [facility] Hct 25.9(L) 38.9 - 50.3 % [facility] Plt 134(L) 150 - 400 K/cumm [facility] MPV 9.8 9.1 - 12.3 fL [facility] RBC 2.47(L) 4.30 - 5.80 M/cumm [facility] MCV 104.9(H) 81.3 - 96.4 fL [facility] MCH 37.7(H) 27.1 - 33.3 pg [facility] MCHC 35.9(H) 32.3 - 35.7 g/dL [facility] RDW CV 19.6(H) 11.1 - 14.9 % [facility] RDW SD 71.3(H) 35.7 - 48.1 fL [facility] NRBC abs 0.08(H) 0.00 - 0.01 K/cumm [facility] Blood 08/26/2024 2:08 AM CDT 08/26/2024 2:24 AM CDT us Smith Sawyer MD LAB BLOOD ORDERABLES Lila l Result Performing Organization Address [facility] de Phone Number [facility] [place] [address] * (ABNORMAL) Protime-INR (08/26/2024 2:08 AM CDT) PT 18.4(H) 9.7 - 13.0 sec INR 1.69(H) 0.90 - 1.20 [facility] Comment: Interpretive data Oral anticoagulant therapeutic ranges: Venous thromboembolism prophylaxis or treatment: 2.0-3.0 CARDIOLOGY Standard range: 2.0-3.0 High-intensity range: 2.5-3.5 Refer to indication-specific guidelines for appropriate target ranges for prosthetic heart valve replacement. Current interpretive data was last revised on 2019. Blood 08/26/2024 2:08 AM CDT 08/26/2024 2:30 AM CDT Stewart Varghese MD LAB BLOOD ORDERABLES Lila l Result Performing Organization Address [facility] Co de Phone Number [facility] [place] [address] * Phosphorus (08/26/2024 2:08 AM CDT) [facility] Phosphorus, pl 3.4 2.3 - 4.5 mg/dL Blood 08/26/2024 2:08 AM CDT 08/26/2024 2:24 AM CDT Smith Sawyer MD LAB BLOOD ORDERABLES Lila l Result [facility] Department [place] [address] * Magnesium (08/26/2024 2:08 AM CDT) [facility] Magnesium 1.8 1.4 - 2.5 mg/dL Blood 08/26/2024 2:08 AM CDT 08/26/2024 2:24 AM CDT Zuleima Levine MD LAB BLOOD ORDERABLES Lila l Result Performing Organization Address City/[facility]/ZIP Co de Phone Number [facility] Department [place] [address] * (ABNORMAL) Comprehensive metabolic panel (08/26/2024 2:08 AM CDT) [facility] Sodium 140 135 - 145 mmol/L Potassium, pl 3.1(L) 3.3 - 4.9 mmol/L [facility] Chloride 109 97 - 110 mmol/L [facility] CO2 20(L) 22 - 32 mmol/L [facility] Anion gap 11 2 - 15 mmol/L [facility] BUN 36(H) 6 - 25 mg/dL [facility] Creatinine 1.18 0.80 - 1.30 mg/dL [facility] Glucose 107 70 - 199 mg/dL [facility] Comment: Interpretive Data Fasting glucose >/= 126 [...] 2022. Calcium 8.1(L) 8.5 - 10.3 mg/dL [facility] Bilirubin, total 0.7 0.1 - 1.2 mg/dL [facility] Protein, pl 5.1(L) 6.5 - 8.5 g/dL [facility] Albumin 3.1(L) 3.5 - 5.0 g/dL [facility] Alk phos 78 40 - 130 Units/L [facility] ALT 19 7 - 55 Units/L [facility] AST 33 10 - 50 Units/[facility] Blood 08/26/2024 2:08 AM CDT 08/26/2024 2:24 AM CDT Smith Sawyer MD LAB BLOOD ORDERABLES Lila dawson Result [facility] Department [place] [address] * eGFR (08/25/2024 2:06 AM CDT) eGFR [...] 2:06 AM CDT 08/25/2024 2:26 AM CDT us Smith Sawyer MD LAB BLOOD ORDERABLES Lila eunice Result [facility] Department [place] [address] * (ABNORMAL) Differential, auto (08/25/2024 2:06 AM CDT) Neutrophil abs 2.52 1.50 - 6.50 K/cumm Imm gran abs 0.03 0.00 - 0.10 K/cumm [facility] Lymphocyte abs 0.26(L) 0.80 - 3.30 K/cumm [facility] Monocyte abs 0.72 0.20 - 0.80 K/cumm [facility] Eosinophil abs 0.06 0.00 - 0.50 K/cumm [facility] Basophil abs 0.00 0.00 - 0.10 K/cumm [facility] Neutrophil pct 70.2 % [facility] Comment: Interpretive Data Percent cell count reference ranges are not reported, since discordance with absolute values may lead to misinterpretation of CBC data. Current Interpretive Data was last revised on 2017. Imm gran pct 0.8 % [facility] Comment: Interpretive Data Percent cell count reference ranges are not reported, since discordance with absolute values may lead to misinterpretation of CBC data. Current Interpretive Data was last revised on 2017. Lymphocyte pct 7.2 % [facility] Comment: Interpretive Data Percent cell count reference ranges are not reported, since discordance with absolute values may lead to misinterpretation of CBC data. Current Interpretive Data was last revised on 2017. Monocyte pct 20.1 % [facility] Comment: Interpretive Data Percent cell count reference ranges are not reported, since discordance with absolute values may lead to misinterpretation of CBC data. Current Interpretive Data was last revised on 2017. Eosinophil pct 1.7 % [facility] Comment: Interpretive Data Percent cell count reference ranges are not reported, since discordance with absolute values may lead to misinterpretation of CBC data. Current Interpretive Data was last revised on 2017. Basophil pct 0.0 % [facility] Comment: Interpretive Data Percent cell count reference ranges are not reported, since discordance with absolute values may lead to misinterpretation of CBC data. Current Interpretive Data was last revised on 2017. Blood 08/25/2024 2:06 AM CDT 08/25/2024 2:27 AM CDT us Smith Sawyer MD LAB BLOOD ORDERABLES Lila dawson Result [facility] Department [place] [address] * (ABNORMAL) CBC with auto differential (08/25/2024 2:06 AM CDT) WBC 3.59(L) 3.80 - 9.90 K/cumm Hgb 9.4(L) 13.0 - 17.5 g/dL [facility] Hct 26.9(L) 38.9 - 50.3 % [facility] Plt 149(L) 150 - 400 K/cumm [facility] MPV 9.8 9.1 - 12.3 fL [facility] RBC 2.54(L) 4.30 - 5.80 M/cumm [facility] MCV 105.9(H) 81.3 - 96.4 fL [facility] MCH 37.0(H) 27.1 - 33.3 pg [facility] MCHC 34.9 32.3 - 35.7 g/dL [facility] RDW CV 19.0(H) 11.1 - 14.9 % [facility] RDW SD 66.2(H) 35.7 - 48.1 fL [facility] NRBC abs 0.04(H) 0.00 - 0.01 K/cumm [facility] Blood 08/25/2024 2:06 AM CDT 08/25/2024 2:27 AM CDT Smith Sawyer MD LAB BLOOD ORDERABLES Lila l Result Performing Organization Address [facility] Co de Phone Number [facility] Department [place] [address] * (ABNORMAL) Protime-INR (08/25/2024 2:06 AM CDT) PT 14.6(H) 9.7 - 13.0 sec INR 1.34(H) 0.90 - 1.20 [facility] Comment: Interpretive data Oral anticoagulant therapeutic ranges: Venous thromboembolism prophylaxis or treatment: 2.0-3.0 CARDIOLOGY Standard range: 2.0-3.0 High-intensity range: 2.5-3.5 Refer to indication-specific guidelines for appropriate target ranges for prosthetic heart valve replacement. Current interpretive data was last revised on 2019. Blood 08/25/2024 2:06 AM CDT 08/25/2024 2:34 AM CDT Stewart Varghese MD LAB BLOOD ORDERABLES Lila l Result Performing Organization Address [facility] [place] [address] * Phosphorus (08/25/2024 2:06 AM CDT) Pathologist [facility] Phosphorus, pl 3.6 2.3 - 4.5 mg/dL Blood 08/25/2024 2:06 AM CDT 08/25/2024 2:26 AM CDT Smith Sawyer MD LAB BLOOD ORDERABLES Lila l Result Performing Organization Address [facility] Co de Phone Number [facility] [place] [address] * (ABNORMAL) Comprehensive metabolic panel (08/25/2024 2:06 AM CDT) Sodium 142 135 - 145 mmol/L Potassium, pl 3.4 3.3 - 4.9 mmol/L [facility] Chloride 111(H) 97 - 110 mmol/L [facility] CO2 21(L) 22 - 32 mmol/L [facility] Anion gap 10 2 - 15 mmol/L [facility] BUN 38(H) 6 - 25 mg/dL [facility] Creatinine 1.17 0.80 - 1.30 mg/dL [facility] Glucose 121 70 - 199 mg/dL [facility] Comment: Interpretive Data Fasting glucose >/= 126 [...] 2022. Calcium 8.3(L) 8.5 - 10.3 mg/dL [facility] Bilirubin, total 0.7 0.1 - 1.2 mg/dL [facility] Protein, pl 5.1(L) 6.5 - 8.5 g/dL [facility] Albumin 3.2(L) 3.5 - 5.0 g/dL [facility] Alk phos 78 40 - 130 Units/L [facility] ALT 16 7 - 55 Units/L [facility] AST 29 10 - 50 Units/L [facility] Blood 08/25/2024 2:06 AM CDT 08/25/2024 2:26 AM CDT us Smith Sawyer MD LAB BLOOD ORDERABLES Lila dawson Result [facility] Department [place] [address] * eGFR (08/24/2024 3:33 AM CDT) Pathologist [facility] eGFR 62 >=60 mL/min/1. 73 m2 Comment: [...] MD LAB BLOOD ORDERABLES Lila eunice Result [facility] Department [place] [address] * (ABNORMAL) Differential, auto (08/24/2024 3:33 AM CDT) [facility] Neutrophil abs 2.28 1.50 - 6.50 K/cumm Imm gran abs 0.03 0.00 - 0.10 K/cumm [facility] Lymphocyte abs 0.30(L) 0.80 - 3.30 K/cumm [facility] Monocyte abs 0.76 0.20 - 0.80 K/cumm [facility] Eosinophil abs 0.02 0.00 - 0.50 K/cumm [facility] Basophil abs 0.01 0.00 - 0.10 K/cumm [facility] Neutrophil pct 67.0 % [facility] Comment: Interpretive Data Percent cell count reference ranges are not reported, since discordance with absolute values may lead to misinterpretation of CBC data. Current Interpretive Data was last revised on 2017. Imm gran pct 0.9 % [facility] Comment: Interpretive Data Percent cell count reference ranges are not reported, since discordance with absolute values may lead to misinterpretation of CBC data. Current Interpretive Data was last revised on 2017. Lymphocyte pct 8.8 % [facility] Comment: Interpretive Data Percent cell count reference ranges are not reported, since discordance with absolute values may lead to misinterpretation of CBC data. Current Interpretive Data was last revised on 2017. Monocyte pct 22.4 % [facility] Comment: Interpretive Data Percent cell count reference ranges are not reported, since discordance with absolute values may lead to misinterpretation of CBC data. Current Interpretive Data was last revised on 2017. Eosinophil pct 0.6 % [facility] Comment: Interpretive Data Percent cell count reference ranges are not reported, since discordance with absolute values may lead to misinterpretation of CBC data. Current Interpretive Data was last revised on 2017. Basophil pct 0.3 % [facility] Comment: Interpretive Data Percent cell count reference ranges are not reported, since discordance with absolute values may lead to misinterpretation of CBC data. Current Interpretive Data was last revised on 2017. Blood 08/24/2024 3:33 AM CDT 08/24/2024 4:14 AM CDT Smith Sawyer MD LAB BLOOD ORDERABLES Lila dawson Result [facility] Department [place] [address] * (ABNORMAL) CBC with auto differential (08/24/2024 3:33 AM CDT) WBC 3.40(L) 3.80 - 9.90 K/cumm Hgb 9.4(L) 13.0 - 17.5 g/dL [facility] Hct 26.3(L) 38.9 - 50.3 % [facility] Plt 162 150 - 400 K/cumm [facility] MPV 9.5 9.1 - 12.3 fL [facility] RBC 2.52(L) 4.30 - 5.80 M/cumm [facility] MCV 104.4(H) 81.3 - 96.4 fL [facility] MCH 37.3(H) 27.1 - 33.3 pg [facility] MCHC 35.7 32.3 - 35.7 g/dL [facility] RDW CV 18.5(H) 11.1 - 14.9 % [facility] RDW SD 62.8(H) 35.7 - 48.1 fL [facility] NRBC abs 0.04(H) 0.00 - 0.01 K/cumm [facility] Blood 08/24/2024 3:33 AM CDT 08/24/2024 4:14 AM CDT Smith Sawyer MD LAB BLOOD ORDERABLES Lila l Result Performing Organization Address City/[facility] Co de Phone Number [facility] Department [place] [address] * aPTT (08/24/2024 3:33 AM CDT) [facility] aPTT 34 28 - 38 sec Comment: Interpretive Data Heparin therapeutic range: 66.0 - 100.0 seconds. Range based on correlation with therapeutic heparin activity range of 0.3 - 0.7 Units/mL. Current interpretive data was last revised on 2023. Blood 08/24/2024 3:33 AM CDT 08/24/2024 4:12 AM CDT Smith Sawyer MD LAB BLOOD ORDERABLES Lila l Result Performing Organization Address City/[facility] Co de Phone Number [facility] Department [place] [address] * (ABNORMAL) Protime-INR (08/24/2024 3:33 AM CDT) PT 17.8(H) 9.7 - 13.0 sec INR 1.63(H) 0.90 - 1.20 [facility] Comment: Interpretive data Oral anticoagulant therapeutic ranges: Venous thromboembolism prophylaxis or treatment: 2.0-3.0 CARDIOLOGY Standard range: 2.0-3.0 High-intensity range: 2.5-3.5 Refer to indication-specific guidelines for appropriate target ranges for prosthetic heart valve replacement. Current interpretive data was last revised on 2019. Blood 08/24/2024 3:33 AM CDT 08/24/2024 4:12 AM CDT Smith Sawyer MD LAB BLOOD ORDERABLES Lila l Result Performing Organization Address City/[facility] Co de Phone Number [facility] [place] [address] * Type and screen (08/24/2024 3:33 AM CDT) ABO Rh A Positive Minna, indirect Negative [facility] Blood 08/24/2024 3:33 AM CDT 08/24/2024 3:48 AM CDT Narrative [facility] - 08/24/2024 4:35 AM CDT Has the patient had Daratumumab or Isatuximab in the past 6 months?->Unknown Smith Sawyer MD LAB BLOOD BANK TEST ORDER DEMETRIO Final Result Performing Organization Address City/[facility]/ZIP Co de Phone Number [facility] [place] [address] * Uric acid (08/24/2024 3:33 AM CDT) Uric acid 7.6 3.0 - 8.0 mg/dL Blood 08/24/2024 3:33 AM CDT 08/24/2024 4:13 AM CDT Narrative [facility] - 08/24/2024 4:41 AM CDT Saturday and only. Morning draw. . Smith Sawyer MD LAB BLOOD ORDERABLES Lila l Result Performing Organization Address City/[facility] Co de Phone Number [facility] [place] [address] * Phosphorus (08/24/2024 3:33 AM CDT) Pathologist [facility] Phosphorus, pl 3.4 2.3 - 4.5 mg/dL Blood 08/24/2024 3:33 AM CDT 08/24/2024 4:13 AM CDT Smith Sawyer MD LAB BLOOD ORDERABLES Lila l Result Performing Organization Address [facility] Co de Phone Number [facility] [place] [address] * (ABNORMAL) Lactate dehydrogenase (LD) (08/24/2024 3:33 AM CDT) [facility] Lactate dehydrogenase (LDH) 302(H) 100 - 250 Units/L Blood 08/24/2024 3:33 AM CDT 08/24/2024 4:13 AM CDT Narrative [facility] - 08/24/2024 4:41 AM CDT Saturday and only. Morning draw. Smith Sawyer MD LAB BLOOD ORDERABLES Lila l Result Performing Organization Address [facility] Co de Phone Number [facility] [place] [address] * (ABNORMAL) Comprehensive metabolic panel (08/24/2024 3:33 AM CDT) [facility] Sodium 139 135 - 145 mmol/L Potassium, pl 3.4 3.3 - 4.9 mmol/L [facility] Chloride 108 97 - 110 mmol/L [facility] CO2 19(L) 22 - 32 mmol/L [facility] Anion gap 12 2 - 15 mmol/L [facility] BUN 39(H) 6 - 25 mg/dL [facility] Creatinine 1.21 0.80 - 1.30 mg/dL [facility] Glucose 113 70 - 199 mg/dL [facility] Comment: Interpretive Data Fasting glucose >/= 126 [...] 2022. Calcium 8.6 8.5 - 10.3 mg/dL [facility] Bilirubin, total 0.8 0.1 - 1.2 mg/dL [facility] Protein, pl 5.2(L) 6.5 - 8.5 g/dL [facility] Albumin 3.1(L) 3.5 - 5.0 g/dL [facility] Alk phos 75 40 - 130 Units/L [facility] ALT 15 7 - 55 Units/L [facility] AST 29 10 - 50 Units/L [facility] Blood 08/24/2024 3:33 AM CDT 08/24/2024 4:13 AM CDT Smith Sawyer MD LAB BLOOD ORDERABLES Lila dawson Result [facility] [place] [address] * Critical Result Callback Hematology (08/23/2024 8:31 AM CDT) Date Notified [id number] Time Notified 939 STAN COREY TestName INR STAN COREY Called/Read Back Trish PI[facility]CE [facility] Credentials RN STAN COREY Called By TP [facility] Blood 08/23/2024 8:31 AM CDT 08/23/2024 8:48 AM CDT Stewart Varghese MD LAB BLOOD ORDERABLES Lila l Result Performing Organization Address [facility] Co de Phone Number [facility] [place] [address] * (ABNORMAL) aPTT (08/23/2024 8:31 AM CDT) [...] ORDERABLES Lila l Result Performing Organization Address [facility] Co de Phone Number [facility] [place] [address] * (ABNORMAL) Thrombin time (08/23/2024 8:31 AM CDT) Thrombin time 15.3(H) 10.0 - 15.0 sec Blood 08/23/2024 8:31 AM CDT 08/23/2024 8:48 AM CDT Stewart Varghese MD LAB BLOOD ORDERABLES Lila l Result Performing Organization Address [facility] Co de Phone Number [facility] [place] [address] * (ABNORMAL) Protime-INR (08/23/2024 8:31 AM CDT) PT >100.0(H) 9.7 - 13.0 sec Comment: Verified No clot detected in sample. INR >9.00(C) 0.90 - 1.20 [facility] Comment: Verified No clot detected in [...] MD LAB BLOOD ORDERABLES Lila l Result [facility] Department [place] [address] * eGFR (08/23/2024 12:33 AM CDT) eGFR 62 >=60 mL/min/1. 73 [...] MD LAB BLOOD ORDERABLES Lila dawson Result [facility] Department [place] [address] * (ABNORMAL) Differential, auto (08/23/2024 12:33 AM CDT) Neutrophil abs 3.43 1.50 - 6.50 K/cumm Imm gran abs 0.02 0.00 - 0.10 K/cumm [facility] Lymphocyte abs 0.19(L) 0.80 - 3.30 K/cumm [facility] Monocyte abs 0.78 0.20 - 0.80 K/cumm [facility] Eosinophil abs 0.00 0.00 - 0.50 K/cumm [facility] Basophil abs 0.00 0.00 - 0.10 K/cumm [facility] Neutrophil pct 77.6 % [facility] Comment: Interpretive Data Percent cell count reference ranges are not reported, since discordance with absolute values may lead to misinterpretation of CBC data. Current Interpretive Data was last revised on 2017. Imm gran pct 0.5 % [facility] Comment: Interpretive Data Percent cell count reference ranges are not reported, since discordance with absolute values may lead to misinterpretation of CBC data. Current Interpretive Data was last revised on 2017. Lymphocyte pct 4.3 % [facility] Comment: Interpretive Data Percent cell count reference ranges are not reported, since discordance with absolute values may lead to misinterpretation of CBC data. Current Interpretive Data was last revised on 2017. Monocyte pct 17.6 % [facility] Comment: Interpretive Data Percent cell count reference ranges are not reported, since discordance with absolute values may lead to misinterpretation of CBC data. Current Interpretive Data was last revised on 2017. Eosinophil pct 0.0 % [facility] Comment: Interpretive Data Percent cell count reference ranges are not reported, since discordance with absolute values may lead to misinterpretation of CBC data. Current Interpretive Data was last revised on 2017. Basophil pct 0.0 % [facility] Comment: Interpretive Data Percent cell count reference ranges are not reported, since discordance with absolute values may lead to misinterpretation of CBC data. Current Interpretive Data was last revised on 2017. Blood 08/23/2024 12:3 3 AM CDT 08/23/2024 12:55 AM CDT Smith Sawyer MD LAB BLOOD ORDERABLES Lila l Result Performing Organization Address [facility]/ZIP Co de Phone Number [facility] Department [place] [address] * (ABNORMAL) CBC with auto differential (08/23/2024 12:33 AM CDT) WBC 4.42 3.80 - 9.90 K/cumm Hgb 9.2(L) 13.0 - 17.5 g/dL [facility] Hct 25.8(L) 38.9 - 50.3 % [facility] Plt 183 150 - 400 K/cumm [facility] MPV 9.6 9.1 - 12.3 fL [facility] RBC 2.51(L) 4.30 - 5.80 M/cumm [facility] MCV 102.8(H) 81.3 - 96.4 fL [facility] MCH 36.7(H) 27.1 - 33.3 pg [facility] MCHC 35.7 32.3 - 35.7 g/dL [facility] RDW CV 18.0(H) 11.1 - 14.9 % [facility] RDW SD 61.4(H) 35.7 - 48.1 fL [facility] NRBC abs 0.04(H) 0.00 - 0.01 K/cumm [facility] Blood 08/23/2024 12:3 3 AM CDT 08/23/2024 12:55 AM CDT Smith Sawyer MD LAB BLOOD ORDERABLES Lila l Result Performing Organization Address [facility]/ZIP Co de Phone Number [facility] Department [place] [address] * Phosphorus (08/23/2024 12:33 AM CDT) Pathologist [facility] Phosphorus, pl 3.3 2.3 - 4.5 mg/dL Blood 08/23/2024 12:3 3 AM CDT 08/23/2024 12:55 AM CDT Smith Sawyer MD LAB BLOOD ORDERABLES Lila dawson Result [facility] Department [place] [address] * (ABNORMAL) Comprehensive metabolic panel (08/23/2024 12:33 AM CDT) Pathologist [facility] Sodium 139 135 - 145 mmol/L Potassium, pl 3.9 3.3 - 4.9 mmol/L [facility] Chloride 107 97 - 110 mmol/L [facility] CO2 21(L) 22 - 32 mmol/L [facility] Anion gap 11 2 - 15 mmol/L [facility] BUN 38(H) 6 - 25 mg/dL [facility] Creatinine 1.22 0.80 - 1.30 mg/dL [facility] Glucose 160 70 - 199 mg/dL [facility] Comment: Interpretive Data Fasting glucose >/= 126 [...] 2022. Calcium 8.8 8.5 - 10.3 mg/dL [facility] Bilirubin, total 0.7 0.1 - 1.2 mg/dL [facility] Protein, pl 5.5(L) 6.5 - 8.5 g/dL [facility] Albumin 3.6 3.5 - 5.0 g/dL [facility] Alk phos 77 40 - 130 Units/L [facility] ALT 17 7 - 55 Units/L [facility] AST 25 10 - 50 Units/L [facility] Blood 08/23/2024 12:3 3 AM CDT 08/23/2024 12:55 AM CDT Smith Sawyer MD LAB BLOOD ORDERABLES Lila l Result Performing Organization Address [facility] de Phone Number [facility] Department [place] [address] * -Miscellaneous Molecular Send-Out Request (08/22/2024 3:01 PM CDT) Result 1 Test Name: Dihydropyrimidine Dehydrogenase Gene Full Sequencing ([place]) Specimen Type: PB Result: See attached scanned report for results. Test name Dihydropyrimidine Dehydrogenase Gene Full Sequencing ([place]) [facility] Miscellaneous 08/22/2024 3:0 1 PM CDT 08/27/2024 10:39 AM CDT Narrative [facility] - 09/02/2024 8:17 AM CDT Dihydropyrimidine Dehydrogenase Gene Full Sequencing ([place]) Miscellaneous Lab Test Zuleima Levine MD LAB GENETIC TESTING Final Result Performing Organization Address [facility] de Phone Number [facility] Department [place] [address] * CT Chest Abdomen Pelvis W Contrast [...] it. Electronically signed by: Cheri Craig M.D. us Smith Sawyer MD IMG CT PROCEDURES Final R esult * (ABNORMAL) Urinalysis reflex to microscopic and culture Urine (08/22/2024 6:20 AM CDT) Color, ur Yellow Yellow Clarity, ur Clear Clear [facility] Specific gravity, ur 1.020 1.003 - 1.030 [facility] pH, urine 6.0 [facility] Comment: Interpretive Data U rine pH is affected by diet, medications, systemic acid-base disturbances, and renal tubular function. pH may affect urinary stone formation. For example, urine pH below 6.0 may help reduce the tendency for calcium phosphate stones and pH greater than 6.0 may reduce the tendency for uric acid stone formation. Source: [place] [employer] Current Interpretive Data was last revised on 2017 Protein, ur ql Negative Negative [facility] Glucose, ur ql Negative Negative [facility] Ketones, ur Negative Negative [facility] Bilirubin, ur Negative Negative [facility] Blood, ur Negative Negative [facility] Urobilinogen, ur <2.0 <2.0 mg/dL [facility] Nitrite, ur Negative Negative [facility] Leukocyte esterase, ur Trace(A) Negative [facility] UA reflex comment Reflex to microscopic UA will be performed. [facility] Urine 08/22/2024 6:20 AM CDT 08/22/2024 6:30 AM CDT Smith Sawyer MD LAB MICROBIOLOGY - GENERA L ORDERABLES Final Result Performing Organization Address [facility] de Phone Number [facility] [place] [address] * (ABNORMAL) Urinalysis, microscopic only (08/22/2024 6:20 AM CDT) Pathologist [facility] WBC, ur 0-5 0 - 5 /HPF RBC, ur 0-2 0 - 2 /HPF [facility] Epithelial cells, squamous, ur 1-5 0 - 5 /HPF [facility] Mucous, ur Present(A) [facility] Amorphous crystals, ur Trace(A) [facility] Culture Reflex Comment Reflex conditions for urine culture (WBC >10) not met. [facility] Urine 08/22/2024 6:20 AM CDT 08/22/2024 6:30 AM CDT Smith Sawyer MD LAB URINE ORDERABLES Lila l Result Performing Organization Address [facility] de Phone Number [facility] Department [place] [address] * (ABNORMAL) Differential, auto (08/22/2024 2:30 AM CDT) Pathologist [facility] Neutrophil abs 4.00 1.50 - 6.50 K/cumm Imm gran abs 0.04 0.00 - 0.10 K/cumm [facility] Lymphocyte abs 0.13(L) 0.80 - 3.30 K/cumm [facility] Monocyte abs 0.21 0.20 - 0.80 K/cumm [facility] Eosinophil abs 0.01 0.00 - 0.50 K/cumm [facility] Basophil abs 0.01 0.00 - 0.10 K/cumm [facility] Neutrophil pct 90.9 % [facility] Comment: Interpretive Data Percent cell count reference ranges are not reported, since discordance with absolute values may lead to misinterpretation of CBC data. Current Interpretive Data was last revised on 2017. Imm gran pct 0.9 % [facility] Comment: Interpretive Data Percent cell count reference ranges are not reported, since discordance with absolute values may lead to misinterpretation of CBC data. Current Interpretive Data was last revised on 2017. Lymphocyte pct 3.0 % [facility] Comment: Interpretive Data Percent cell count reference ranges are not reported, since discordance with absolute values may lead to misinterpretation of CBC data. Current Interpretive Data was last revised on 2017. Monocyte pct 4.8 % [facility] Comment: Interpretive Data Percent cell count reference ranges are not reported, since discordance with absolute values may lead to misinterpretation of CBC data. Current Interpretive Data was last revised on 2017. Eosinophil pct 0.2 % [facility] Comment: Interpretive Data Percent cell count reference ranges are not reported, since discordance with absolute values may lead to misinterpretation of CBC data. Current Interpretive Data was last revised on 2017. Basophil pct 0.2 % [facility] Comment: Interpretive Data Percent cell count reference ranges are not reported, since discordance with absolute values may lead to misinterpretation of CBC data. Current Interpretive Data was last revised on 2017. Blood 08/22/2024 2:30 AM CDT 08/22/2024 12:54 AM CDT us Smith Sawyer MD LAB BLOOD ORDERABLES Lila dawson Result [facility] Department [place] [address] * (ABNORMAL) CBC with auto differential (08/22/2024 2:30 AM CDT) WBC 4.40 3.80 - 9.90 K/cumm Hgb 9.0(L) 13.0 - 17.5 g/dL [facility] Hct 25.0(L) 38.9 - 50.3 % [facility] Plt 168 150 - 400 K/cumm [facility] MPV 9.9 9.1 - 12.3 fL [facility] RBC 2.47(L) 4.30 - 5.80 M/cumm [facility] MCV 101.2(H) 81.3 - 96.4 fL [facility] MCH 36.4(H) 27.1 - 33.3 pg [facility] MCHC 36.0(H) 32.3 - 35.7 g/dL [facility] RDW CV 17.2(H) 11.1 - 14.9 % [facility] RDW SD 59.0(H) 35.7 - 48.1 fL [facility] NRBC abs 0.00 0.00 - 0.01 K/cumm [facility] Blood 08/22/2024 2:30 AM CDT 08/22/2024 12:54 AM CDT Smith Sawyer MD LAB BLOOD ORDERABLES Lila dawson Result [facility] One [facility] Department [place] [address] * (ABNORMAL) eGFR (08/22/2024 12:28 AM CDT) [...] MD LAB BLOOD ORDERABLES Lila l Result [facility] [place] [address] * Critical Result Callback Hematology (08/22/2024 12:28 AM CDT) Date Notified [id number] Time Notified 132 STAN [facility] TestName INR STAN [facility] Called/Read Back Naren PIERCE [facility] Credentials RN STAN [facility] Called By ELIZABETH PIERCE [facility] Blood 08/22/2024 12:2 8 AM CDT 08/22/2024 1:15 AM CDT Smith Sawyer MD LAB BLOOD ORDERABLES Lila l Result Performing Organization Address City/[facility] Co de Phone Number [facility] [place] [address] * Thyroid Function [place] (08/22/2024 12:28 AM CDT) TSH 0.53 0.30 - 4.20 mcIUnit/mL Blood 08/22/2024 12:2 8 AM CDT 08/22/2024 12:55 AM CDT Smith Sawyer MD LAB BLOOD ORDERABLES [place] [address] * (ABNORMAL) aPTT (08/22/2024 12:28 AM CDT) [...] ORDERABLES Lila l Result Performing Organization Address [facility] Co de Phone Number [facility] [place] [address] * (ABNORMAL) Protime-INR (08/22/2024 12:28 AM CDT) PT 98.6(H) 9.7 - 13.0 sec INR 8.73(C) 0.90 - 1.20 [facility] Comment: REVIEWED Interpretive data Oral anticoagulant [...] ORDERABLES Lila l Result Performing Organization Address [facility] Co de Phone Number [facility] One [facility] [place] [address] * Type and screen (08/22/2024 12:28 AM CDT) Minna, indirect Negative ABO Rh A Positive STAN [facility] Blood 08/22/2024 12:2 8 AM CDT 08/22/2024 1:00 AM CDT Narrative [facility] - 08/22/2024 2:10 AM CDT Has the patient had Daratumumab or Isatuximab in the past 6 months?->Unknown Smith Sawyer MD LAB BLOOD BANK TEST ORDER DEMETRIO Final Result Performing Organization Address City/[facility] Co de Phone Number [facility] [place] [address] * (ABNORMAL) Uric acid (08/22/2024 12:28 AM CDT) Pathologist [facility] Uric acid 8.4(H) 3.0 - 8.0 mg/dL Blood 08/22/2024 12:2 8 AM CDT 08/22/2024 12:55 AM CDT Narrative [facility] - 08/22/2024 1:31 AM CDT Saturday and only. Morning draw. . Smith Sawyer MD LAB BLOOD ORDERABLES Lila l Result Performing Organization Address [facility]/ZIP Co de Phone Number [facility] [place] [address] * Phosphorus (08/22/2024 12:28 AM CDT) Pathologist [facility] Phosphorus, pl 2.8 2.3 - 4.5 mg/dL Blood 08/22/2024 12:2 8 AM CDT 08/22/2024 12:55 AM CDT Smith Sawyer MD LAB BLOOD ORDERABLES Lila l Result Performing Organization Address City/[facility] Co de Phone Number [facility] [place] [address] * (ABNORMAL) Lactate dehydrogenase (LD) (08/22/2024 12:28 AM CDT) Pathologist [facility] Lactate dehydrogenase (LDH) 301(H) 100 - 250 Units/L Blood 08/22/2024 12:2 8 AM CDT 08/22/2024 12:55 AM CDT Narrative [facility] - 08/22/2024 1:31 AM CDT Saturday and only. Morning draw. Smith Sawyer MD LAB BLOOD ORDERABLES Lila l Result Performing Organization Address [facility] Co de Phone Number [facility] [place] [address] * Vitamin B12 (08/22/2024 12:28 AM CDT) [facility] Vitamin B12 760 230 - 1,250 pg/mL Blood 08/22/2024 12:2 8 AM CDT 08/22/2024 12:55 AM CDT Smith Sawyer MD LAB BLOOD ORDERABLES Lila l Result Performing Organization Address [facility] de Phone Number [facility] [place] [address] * (ABNORMAL) Comprehensive metabolic panel (08/22/2024 12:28 AM CDT) [facility] Sodium 138 135 - 145 mmol/L Potassium, pl 3.5 3.3 - 4.9 mmol/L [facility] Chloride 104 97 - 110 mmol/L [facility] CO2 23 22 - 32 mmol/L [facility] Anion gap 11 2 - 15 mmol/L [facility] BUN 40(H) 6 - 25 mg/dL [facility] Creatinine 1.29 0.80 - 1.30 mg/dL [facility] Glucose 154 70 - 199 mg/dL [facility] Comment: Interpretive Data Fasting glucose >/= 126 [...] 2022. Calcium 8.2(L) 8.5 - 10.3 mg/dL [facility] Bilirubin, total 0.9 0.1 - 1.2 mg/dL [facility] Protein, pl 5.3(L) 6.5 - 8.5 g/dL [facility] Albumin 3.3(L) 3.5 - 5.0 g/dL [facility] Alk phos 76 40 - 130 Units/L [facility] ALT 15 7 - 55 Units/L [facility] AST 29 10 - 50 Units/L [facility] Blood 08/22/2024 12:2 8 AM CDT 08/22/2024 12:55 AM CDT Smith Sawyer MD LAB BLOOD ORDERABLES Lila l Result Performing Organization Address [facility] Co de Phone Number [facility] [place] [address] * C. difficile testing Stool (08/21/2024 9:37 PM CDT) [facility] Result Negative Negative Toxin Result Negative Negative [facility] C. diff result Negative, free toxin Negative, free toxin [facility] C. diff interp Negative for toxigenic Clostridioides (Clostridium) difficile. Analysis was performed using a glutamate dehydrogenase antigen detection assay combined with a C. difficile toxin detection assay. [facility] Stool 08/21/2024 9:37 PM CDT 08/22/2024 1:47 AM CDT Smith Sawyer MD LAB MICROBIOLOGY - GENERA L ORDERABLES Final Result Performing Organization Address City/[facility] Co de Phone Number [facility] Department [place] [address] * Cytomegalovirus (CMV) DNA PCR, quantitative Blood (08/21/2024 9:37 PM CDT) [facility] CMV DNA Not Detected [facility] Comment: Interpretive Data: The quantifiable range of this assay is 34 IUnits/mL to 10,000,000 IUnits/mL (1.53 log IUnits/mL to 7.0 log IUnits/mL). Testing was performed by the ELIO 6800 CMV Test ([employer] Testing performed at [facility]. Current interpretive data was last revised on 2020. Blood 08/21/2024 9:37 PM CDT 08/21/2024 10:18 PM CDT Smith Sawyer MD LAB MICROBIOLOGY - GENERA L ORDERABLES Final Result [facility] One [facility] Department [place] [address] [facility] * Norovirus PCR Stool (08/21/2024 9:37 PM CDT) [facility] Norovirus GI RNA Not Detected Not Detected [facility] Norovirus GII RNA Not Detected Not Detected STAN [facility] Comment: Interpretive data: Testing performed at the [facility] Laboratory using the [employer] Xpert Norovirus Assay. This assay uses nucleic [...] L ORDERABLES Final Result Performing Organization Address City/[facility]/ZIP Co de Phone Number [facility] [place] [address] [facility] * Cryptosporidium and Giardia antigen assay Stool (08/21/2024 9:37 PM CDT) Giardia Ag Negative Negative Cryptosporidium Ag Negative Negative [facility] Comment: Interpretive data: Testing performed by the [facility] Microbiology Laboratory using an immunoassay that detects Cryptosporidium and Giardia antigens in stool specimens. If comprehensive examination for ova and parasites is required, please request Ova and Parasite Examination. Stool 08/21/2024 9:37 PM CDT 08/22/2024 1:47 AM CDT Smith Sawyer MD LAB MICROBIOLOGY - GENERA L ORDERABLES Final Result Performing Organization Address [facility] Co de Phone Number [facility] Department [place] [address] * Infection Prevention VRE Culture Stool (08/21/2024 9:37 PM CDT) Report Final Report: Negative Stool 08/21/2024 9:37 PM CDT 08/22/2024 6:17 AM CDT Narrative [facility] - 08/24/2024 7:43 AM CDT Surveillance culture for Infection Prevention purposes only; results indicate colonization, not infection requiring treatment. Testing performed by [facility] Microbiology Laboratory ([phone]). Gorge Vaughan MD PhD LAB MICROBIOLOGY - G ENERAL ORDERABLES Final Result [facility] Department [place] [address] * Stool culture Stool Rectum (08/21/2024 9:37 PM CDT) Direct Specimen Exam Shiga Toxin Testing: Antigen detection assay for Shiga-toxin NEGATIVE for Shiga Toxin 1 and Shiga Toxin 2. Report Final Report: No growth of enteric bacterial pathogens [facility] Stool (Rectum) 08/21/2024 9: 37 PM CDT 08/22/2024 1:47 AM CDT Narrative STAN [facility] - 08/26/2024 2:52 PM CDT Specimen received in a sterile container. Testing performed by [facility]biology Laboratory ([phone]). Routine stool cultures include procedures to detect Salmonella, Shigella, Edwardsiella, Aeromonas, Pleisiomonas, Campylobacter, Yersinia, E. coli O157, and Shiga-like toxins. Vibrio is cultured only upon special request. If Vibrio is suspected, please call the laboratory at [phone]. Interpretive data was last updated September 10, 2016. us Smith Sawyer MD LAB MICROBIOLOGY - GENERA L ORDERABLES Final Result [facility] One [facility] Department [place] [address] * XR Chest 1 View (08/21/2024 4:43 [...] signed by: Chu Villanueva M.D. Lisa Tejeda [employer] IMG XR PROCEDURES Final R esult * (ABNORMAL) Respiratory pathogen panel Nasopharyngeal (08/21/2024 4:08 PM CDT) Pathologist [facility] Influenza A RNA Not Detected Not Detected Influenza B RNA Not Detected Not Detected [facility] RSV RNA Not Detected Not Detected [facility] COVID-19 RNA Not Detected Not Detected [facility] Coronavirus 229E RNA Not Detected Not Detected [facility] Coronavirus HKU1 RNA Detected(A) Not Detected [facility] Coronavirus NL63 RNA Not Detected Not Detected [facility] Coronavirus OC43 RNA Not Detected Not Detected [facility] Adenovirus DNA Not Detected Not Detected [facility] Metapneumovirus RNA Not Detected Not Detected [facility] Rhinovirus/Enterov irus RNA Not Detected Not Detected [facility] Parainfluenza 1 RNA Not Detected Not Detected [facility] Parainfluenza 2 RNA Not Detected Not Detected [facility] Parainfluenza 3 RNA Not Detected Not Detected [facility] Parainfluenza 4 RNA Not Detected Not Detected [facility] B. pertussis DNA Not Detected Not Detected [facility] B. parapertussis DNA Not Detected Not Detected [facility] C. pneumoniae DNA Not Detected Not Detected [facility] M. pneumoniae DNA Not Detected Not Detected [facility] Nasopharyngeal 08/21/2024 4: 08 PM CDT 08/21/2024 4:50 PM CDT Narrative [facility] - 08/21/2024 5:58 PM CDT Is the Patient experiencing symptoms consistent with COVID?->Yes Surveillance testing for transplant patient?->No Interpretive Data The [employer] Respiratory Panel (RP2.1) assay is a multiplexed [...] assay has FDA clearance for testing of [employer] swabs. The performance of additional specimen types has been assessed by the performing laboratory. The performance characteristics of this assay have been determined by [facility] Molecular Infectious Disease Laboratory. Current interpretive data was last revised on 22. Lisa Tejeda [employer] LAB MICROBIOLOGY - GENERA L ORDERABLES Final Result [facility] Department [place] [address] * (ABNORMAL) eGFR (08/21/2024 3:52 PM CDT) Pathologist [facility] eGFR 54(L) >=60 mL/min/1. 73 m2 Comment: [...] CDT 08/21/2024 4:16 PM CDT Lisa Tejeda NP LAB BLOOD ORDERABLES Lila l Result [facility] One [facility] Department [place] [address] * (ABNORMAL) Differential, auto (08/21/2024 3:52 PM CDT) Pathologist [facility] Neutrophil abs 4.28 1.50 - 6.50 K/cumm Imm gran abs 0.03 0.00 - 0.10 K/cumm [facility] Lymphocyte abs 0.27(L) 0.80 - 3.30 K/cumm [facility] Monocyte abs 0.58 0.20 - 0.80 K/cumm [facility] Eosinophil abs 0.03 0.00 - 0.50 K/cumm [facility] Basophil abs 0.01 0.00 - 0.10 K/cumm [facility] Neutrophil pct 82.2 % [facility] Comment: Interpretive Data Percent cell count reference ranges are not reported, since discordance with absolute values may lead to misinterpretation of CBC data. Current Interpretive Data was last revised on 2017. Imm gran pct 0.6 % [facility] Comment: Interpretive Data Percent cell count reference ranges are not reported, since discordance with absolute values may lead to misinterpretation of CBC data. Current Interpretive Data was last revised on 2017. Lymphocyte pct 5.2 % [facility] Comment: Interpretive Data Percent cell count reference ranges are not reported, since discordance with absolute values may lead to misinterpretation of CBC data. Current Interpretive Data was last revised on 2017. Monocyte pct 11.2 % [facility] Comment: Interpretive Data Percent cell count reference ranges are not reported, since discordance with absolute values may lead to misinterpretation of CBC data. Current Interpretive Data was last revised on 2017. Eosinophil pct 0.6 % [facility] Comment: Interpretive Data Percent cell count reference ranges are not reported, since discordance with absolute values may lead to misinterpretation of CBC data. Current Interpretive Data was last revised on 2017. Basophil pct 0.2 % [facility] Comment: Interpretive Data Percent cell count reference ranges are not reported, since discordance with absolute values may lead to misinterpretation of CBC data. Current Interpretive Data was last revised on 2017. Blood 08/21/2024 3:52 PM CDT 08/21/2024 4:16 PM CDT us Lisa Tejeda [employer] LAB BLOOD ORDERABLES Lila dawson Result [facility] [place] [address] * (ABNORMAL) CBC with auto differential (08/21/2024 3:52 PM CDT) WBC 5.20 3.80 - 9.90 K/cumm Hgb 9.7(L) 13.0 - 17.5 g/dL [facility] Hct 26.7(L) 38.9 - 50.3 % [facility] Plt 204 150 - 400 K/cumm [facility] MPV 9.9 9.1 - 12.3 fL [facility] RBC 2.67(L) 4.30 - 5.80 M/cumm [facility] MCV 100.0(H) 81.3 - 96.4 fL [facility] MCH 36.3(H) 27.1 - 33.3 pg [facility] MCHC 36.3(H) 32.3 - 35.7 g/dL [facility] RDW CV 17.3(H) 11.1 - 14.9 % [facility] RDW SD 58.5(H) 35.7 - 48.1 fL [facility] NRBC abs 0.00 0.00 - 0.01 K/cumm [facility] Blood 08/21/2024 3:52 PM CDT 08/21/2024 4:16 PM CDT us Lisa Tejeda [employer] LAB BLOOD ORDERABLES Lila l Result Performing Organization Address City/[facility]/ZIP Co de Phone Number [facility] Department [place] [address] * CRP (acute phase) (08/21/2024 3:52 PM CDT) [facility] CRP 3.7 <=10.0 mg/L Blood 08/21/2024 3:52 PM CDT 08/21/2024 4:16 PM CDT us Gorge Vaughan MD PhD LAB BLOOD ORDERABLES Final Result [facility] [place] [address] * (ABNORMAL) Comprehensive metabolic panel (08/21/2024 3:52 PM CDT) Pathologist [facility] Sodium 136 135 - 145 mmol/L Potassium, pl 3.3 3.3 - 4.9 mmol/L [facility] Chloride 100 97 - 110 mmol/L [facility] CO2 25 22 - 32 mmol/L [facility] Anion gap 11 2 - 15 mmol/L [facility] BUN 40(H) 6 - 25 mg/dL [facility] Creatinine 1.37(H) 0.80 - 1.30 mg/dL [facility] Glucose 123 70 - 199 mg/dL [facility] Comment: Interpretive Data Fasting glucose >/= 126 [...] 2022. Calcium 8.8 8.5 - 10.3 mg/dL [facility] Bilirubin, total 1.1 0.1 - 1.2 mg/dL [facility] Protein, pl 5.7(L) 6.5 - 8.5 g/dL [facility] Albumin 3.9 3.5 - 5.0 g/dL [facility] Alk phos 88 40 - 130 Units/L [facility] ALT 16 7 - 55 Units/L [facility] AST 26 10 - 50 Units/L [facility] Blood 08/21/2024 3:52 PM CDT 08/21/2024 4:16 PM CDT us Lisa Tejeda [employer] LAB BLOOD ORDERABLES Lila dawson Result [facility] One [facility] [place] [address] * POC Blood Gas and Chemistries, Arterial - (08/21/2024 3:50 PM CDT) Lactate POC 2.0 0.7 - 2.0 mmol/L Blood 08/21/2024 3:50 PM CDT 08/21/2024 3:50 PM CDT us Gorge Vaughan MD PhD LAB POCT ORDERABLES - DEVICE Final Result [facility] [place] [address] * Critical Result Callback Hematology (08/21/2024 3:45 PM CDT) Date Notified [id number] Time Notified 1649 STAN [facility] TestName INR STAN [facility] Called/Read Back Luis PIERCE [facility] Credentials RN STAN [facility] Called By PD STAN [facility] Blood 08/21/2024 3:45 PM CDT 08/21/2024 4:06 PM CDT us Lisa Tejeda [employer] LAB BLOOD ORDERABLES Lila l Result Performing Organization Address City/[facility] Co de Phone Number [facility] [place] [address] * Blood culture Blood Peripheral (08/21/2024 3:45 PM CDT) Report Final Report: No growth Blood (Peripheral) 08/21/2024 3:45 PM CDT 08/21/2024 4:33 PM CDT Narrative [facility] - 08/26/2024 7:00 AM CDT 1. Blood [...] performance characteristics have been verified by the [facility] Microbiology Laboratory. For questions about this culture, contact the Microbiology Laboratory at [phone]. Interpretive data was last revised on 24. us Lisa Tejeda NP LAB MICROBIOLOGY - GENERA L ORDERABLES Final Result [facility] Department [place] [address] * Blood culture Blood Peripheral (08/21/2024 3:45 PM CDT) Report Final Report: No growth Blood (Peripheral) 08/21/2024 3:45 PM CDT 08/21/2024 4:33 PM CDT Amy PIERCE [facility] - 08/26/2024 7:00 AM CDT 1. Blood [...] performance characteristics have been verified by the [facility] Microbiology Laboratory. For questions about this culture, contact the Microbiology Laboratory at [phone]. Interpretive data was last revised on 24. Lisa Tejeda NP LAB MICROBIOLOGY - GENERA L ORDERABLES Final Result Performing Organization Address [facility] Co de Phone Number [facility] [place] [address] * (ABNORMAL) aPTT (08/21/2024 3:45 PM CDT) [...] ORDERABLES Lila l Result Performing Organization Address [facility] Co de Phone Number [facility] [place] [address] * (ABNORMAL) Thrombin time (08/21/2024 3:45 PM CDT) Thrombin time 15.2(H) 10.0 - 15.0 sec Blood 08/21/2024 3:45 PM CDT 08/21/2024 4:06 PM CDT Lisa Tejeda NP LAB BLOOD ORDERABLES Lila l Result Performing Organization Address City/[facility] Co de Phone Number [facility] [place] [address] * (ABNORMAL) Protime-INR (08/21/2024 3:45 PM CDT) PT >100.0(H) 9.7 - 13.0 sec INR >9.00(C) 0.90 - 1.20 [facility] Comment: No clot detected in sample. Verified by reflex testing. Interpretive data Oral anticoagulant therapeutic ranges: Venous thromboembolism prophylaxis or treatment: 2.0-3.0 CARDIOLOGY Standard range: 2.0-3.0 High-intensity range: 2.5-3.5 Refer to indication-specific guidelines for appropriate target ranges for prosthetic heart valve replacement. Current interpretive data was last revised on 2019. Blood 08/21/2024 3:45 PM CDT 08/21/2024 4:06 PM CDT us Lisa Tejeda NP LAB BLOOD ORDERABLES Lila dawson Result [facility] One [facility] Department [place] [address] * Urinalysis reflex to microscopic (08/20/2024 1:27 AM CDT) Color, ur Straw Yellow Clarity, ur Clear Clear [facility] Specific gravity, ur 1.022 1.003 - 1.030 [facility] pH, urine 6.0 [facility] Comment: Interpretive Data U rine pH is affected by diet, medications, systemic acid-base disturbances, and renal tubular function. pH may affect urinary stone formation. For example, urine pH below 6.0 may help reduce the tendency for calcium phosphate stones and pH greater than 6.0 may reduce the tendency for uric acid stone formation. Source: [facility] [employer] Current Interpretive Data was last revised on 2017 Protein, ur ql Negative Negative [facility] Glucose, ur ql Negative Negative [facility] Ketones, ur Negative Negative [facility] Bilirubin, ur Negative Negative [facility] Blood, ur Negative Negative [facility] Urobilinogen, ur <2.0 <2.0 mg/dL [facility] Nitrite, ur Negative Negative [facility] Leukocyte esterase, ur Negative Negative [facility] UA reflex comment Reflex conditions for microscopic UA not met. [facility] Urine 08/20/2024 1:27 AM CDT 08/20/2024 1:48 AM CDT us Leela Sandhu [employer] LAB URINE ORDERABLES Lila l Result Performing Organization Address [facility] Co de Phone Number [facility] [place] [address] * Urine culture Urine, clean voided (08/20/2024 1:27 AM CDT) Report Final Report: No growth Urine, clean voided 08/20/2024 1:27 AM CDT 08/20/2024 11:58 AM CDT Narrative [facility] - 08/21/2024 1:10 PM CDT Indications for Culture:->Other (specify) Other Indication:->immunocompromised Testing performed by [facility] Microbiology Laboratory ([phone]) us Leela Sandhu [employer] LAB MICROBIOLOGY - GENERA L ORDERABLES Final Result Performing Organization Address [facility] de Phone Number [facility] Department [place] [address] * (ABNORMAL) POC Blood Gas and Chemistries, Arterial - (08/19/2024 9:48 PM CDT) Lactate POC 2.1(H) 0.7 - 2.0 mmol/L Blood 08/19/2024 9:48 PM CDT 08/19/2024 9:48 PM CDT us Gilberto Martinez MD LAB POCT ORDERABLES - DEVICE Final Result Performing Organization Address [facility] Co de Phone Number [facility] [place] [address] * ECG 12 lead (08/19/2024 9:34 PM CDT) Ventricular Rate EKG/Min 60 BPM [facility] Atrial Rate 60 BPM [facility] WI-Interval (MSEC) 210 ms [facility] QRS-Interval (MSEC) 98 ms [facility] QT-Interval (MSEC) 462 ms [facility] QTc 462 ms [facility] P [place] 15 degrees [facility] R [place] -29 degrees [facility] T [place] 155 degrees [facility] Diagnosis Atrial-paced rhythm with prolonged AV conduction ST & T wave abnormality, consider lateral ischemia Abnormal ECG When compared with ECG of 08-JUN-2024 07:48, No significant change was found Confirmed by RL BHATT M.D ([id number]) on 08/20/2024 5:01:40 PM [facility] 08/19/2024 9:34 PM CDT 08/20/2024 5:01 PM CDT us Leela Sandhu [employer] ECG ORDERABLES Final Res ult [facility] [place] * eGFR (08/19/2024 9:03 PM CDT) eGFR [...] 08/19/2024 9:56 PM CDT us Leela Sandhu [employer] LAB BLOOD ORDERABLES Lila dawson Result [facility] Department [place] [address] * (ABNORMAL) Differential, auto (08/19/2024 9:03 PM CDT) Pathologist [facility] Neutrophil abs 6.02 1.50 - 6.50 K/cumm Imm gran abs 0.04 0.00 - 0.10 K/cumm [facility] Lymphocyte abs 0.23(L) 0.80 - 3.30 K/cumm [facility] Monocyte abs 0.48 0.20 - 0.80 K/cumm [facility] Eosinophil abs 0.01 0.00 - 0.50 K/cumm [facility] Basophil abs 0.00 0.00 - 0.10 K/cumm [facility] Neutrophil pct 88.8 % [facility] Comment: Interpretive Data Percent cell count reference ranges are not reported, since discordance with absolute values may lead to misinterpretation of CBC data. Current Interpretive Data was last revised on 2017. Imm gran pct 0.6 % [facility] Comment: Interpretive Data Percent cell count reference ranges are not reported, since discordance with absolute values may lead to misinterpretation of CBC data. Current Interpretive Data was last revised on 2017. Lymphocyte pct 3.4 % [facility] Comment: Interpretive Data Percent cell count reference ranges are not reported, since discordance with absolute values may lead to misinterpretation of CBC data. Current Interpretive Data was last revised on 2017. Monocyte pct 7.1 % [facility] Comment: Interpretive Data Percent cell count reference ranges are not reported, since discordance with absolute values may lead to misinterpretation of CBC data. Current Interpretive Data was last revised on 2017. Eosinophil pct 0.1 % [facility] Comment: Interpretive Data Percent cell count reference ranges are not reported, since discordance with absolute values may lead to misinterpretation of CBC data. Current Interpretive Data was last revised on 2017. Basophil pct 0.0 % [facility] Comment: Interpretive Data Percent cell count reference ranges are not reported, since discordance with absolute values may lead to misinterpretation of CBC data. Current Interpretive Data was last revised on 2017. Blood 08/19/2024 9:03 PM CDT 08/19/2024 9:56 PM CDT us Leela Sandhu [employer] LAB BLOOD ORDERABLES Lila eunice Result [facility] Department [place] [address] * Respiratory pathogen panel Nasopharyngeal (08/19/2024 9:03 PM CDT) Pathologist [facility] Influenza A RNA Not Detected Not Detected Influenza B RNA Not Detected Not Detected [facility] RSV RNA Not Detected Not Detected [facility] COVID-19 RNA Not Detected Not Detected [facility] Coronavirus 229E RNA Not Detected Not Detected [facility] Coronavirus HKU1 RNA Not Detected Not Detected [facility] Coronavirus NL63 RNA Not Detected Not Detected [facility] Coronavirus OC43 RNA Not Detected Not Detected [facility] Adenovirus DNA Not Detected Not Detected [facility] Metapneumovirus RNA Not Detected Not Detected [facility] Rhinovirus/Enterov irus RNA Not Detected Not Detected [facility] Parainfluenza 1 RNA Not Detected Not Detected [facility] Parainfluenza 2 RNA Not Detected Not Detected [facility] Parainfluenza 3 RNA Not Detected Not Detected [facility] Parainfluenza 4 RNA Not Detected Not Detected [facility] B. pertussis DNA Not Detected Not Detected [facility] B. parapertussis DNA Not Detected Not Detected [facility] C. pneumoniae DNA Not Detected Not Detected [facility] M. pneumoniae DNA Not Detected Not Detected [facility] Nasopharyngeal 08/19/2024 9: 03 PM CDT 08/19/2024 10:21 PM CDT Narrative [facility] - 08/19/2024 11:23 PM CDT Is the Patient experiencing symptoms consistent with COVID?->No Surveillance testing for transplant patient?->No Interpretive Data The [email or web address] FilmArray Respiratory Panel (RP2.1) assay is a [...] assay has FDA clearance for testing of [employer] swabs. The performance of additional specimen types has been assessed by the performing laboratory. The performance characteristics of this assay have been determined by [facility] Molecular Infectious Disease Laboratory. Current interpretive data was last revised on 22. us Leela Sandhu [employer]ACH[employer] LAB MICROBIOLOGY - GENERA L ORDERABLES Final Result Performing Organization Address City/[facility]/ZIP Co de Phone Number [facility] Department [place] [address] * (ABNORMAL) CBC with auto differential (08/19/2024 9:03 PM CDT) Pathologist [facility] WBC 6.78 3.80 - 9.90 K/cumm Hgb 10.2(L) 13.0 - 17.5 g/dL [facility] Hct 28.4(L) 38.9 - 50.3 % [facility] Plt 193 150 - 400 K/cumm [facility] MPV 10.1 9.1 - 12.3 fL [facility] RBC 2.78(L) 4.30 - 5.80 M/cumm [facility] MCV 102.2(H) 81.3 - 96.4 fL [facility] MCH 36.7(H) 27.1 - 33.3 pg [facility] MCHC 35.9(H) 32.3 - 35.7 g/dL [facility] RDW CV 17.2(H) 11.1 - 14.9 % [facility] RDW SD 59.2(H) 35.7 - 48.1 fL [facility] NRBC abs 0.00 0.00 - 0.01 K/cumm [facility] Blood 08/19/2024 9:03 PM CDT 08/19/2024 9:56 PM CDT us Leela Sandhu [employer] LAB BLOOD ORDERABLES Lila l Result [facility] Department [place] [address] * Phosphorus (08/19/2024 9:03 PM CDT) Phosphorus, pl 3.1 2.3 - 4.5 mg/dL Blood 08/19/2024 9:03 PM CDT 08/19/2024 9:56 PM CDT Gilberto Martinez MD LAB BLOOD ORDERABLES Final Re sult Performing Organization Address [facility] de Phone Number [facility] [place] [address] * Magnesium (08/19/2024 9:03 PM CDT) Magnesium 1.8 1.4 - 2.5 mg/dL Blood 08/19/2024 9:03 PM CDT 08/19/2024 9:56 PM CDT Gilberto Martinez MD LAB BLOOD ORDERABLES Final Re sult Performing Organization Address [facility] de Phone Number [facility] [place] [address] * Lipase (08/19/2024 9:03 PM CDT) Lipase 42 10 - 99 Units/L Blood 08/19/2024 9:0 3 PM CDT 08/19/2024 9:56 PM CDT Leela Sandhu [employer] LAB BLOOD ORDERABLES Lila l Result Performing Organization Address [facility] de Phone Number [facility] [place] [address] * (ABNORMAL) Lactate dehydrogenase (LD) (08/19/2024 9:03 PM CDT) Lactate dehydrogenase (LDH) 434(H) 100 - 250 Units/L Blood 08/19/2024 9:03 PM CDT 08/19/2024 9:56 PM CDT Leela Sandhu [employer] LAB BLOOD ORDERABLES Lila l Result [facility] Department [place] [address] * Amylase (08/19/2024 9:03 PM CDT) Pathologist [facility] Amylase 92 30 - 99 Units/L Blood 08/19/2024 9:03 PM CDT 08/19/2024 9:56 PM CDT Leela Sandhu [employer] LAB BLOOD ORDERABLES Lila l Result Performing Organization Address [facility] Co de Phone Number [facility] Department [place] [address] * (ABNORMAL) Comprehensive metabolic panel (08/19/2024 9:03 PM CDT) [facility] Sodium 133(L) 135 - 145 mmol/L Potassium, pl 3.9 3.3 - 4.9 mmol/L [facility] Chloride 97 97 - 110 mmol/L [facility] CO2 24 22 - 32 mmol/L [facility] Anion gap 12 2 - 15 mmol/L [facility] BUN 44(H) 6 - 25 mg/dL [facility] Creatinine 1.17 0.80 - 1.30 mg/dL [facility] Glucose 139 70 - 199 mg/dL [facility] Comment: Interpretive Data Fasting glucose >/= 126 [...] 2022. Calcium 8.9 8.5 - 10.3 mg/dL [facility] Bilirubin, total 1.2 0.1 - 1.2 mg/dL [facility] Protein, pl 6.2(L) 6.5 - 8.5 g/dL [facility] Albumin 3.8 3.5 - 5.0 g/dL [facility] Alk phos 91 40 - 130 Units/L [facility] ALT 21 7 - 55 Units/L [facility] AST 32 10 - 50 Units/L [facility] Blood 08/19/2024 9:03 PM CDT 08/19/2024 9:56 PM CDT us Leela Sandhu [employer] LAB BLOOD ORDERABLES Lila dawson Result [facility] Department [place] [address] * DEVICE CHECK - REMOTE (08/17/2024 10:56 [...] to JC Episodes last 90 days/Comments: AF [place] <1 %, longest duration 1 minute 54 seconds. No new ventricular events . NORMAL DEVICE FUNCTION PROGRAMMED MEDICATIONS: Anti-coagulant(s): Coumadin Anti-arrhythmic(s): Norvasc 5 mg daily, sotalol 80 mg twice a day PLAN: 1) Whipple Pacemaker evaluation 2) Whipple remote transmission scheduled in 3 months. 3) Programming appropriate for device measurements Karolyn Escoto, ALMITA us Zane Richey III, MD CV CARDIAC SERVICES PROCEDURES Final Result * (ABNORMAL) Protime-INR (08/17/2024 10:34 AM CDT) INR 2.8(H) [facility] Comment: Reference Range 0.9-1.1 Moderate-intensity Warfarin Therapy 2.0-3.0 Higher-intensity Warfarin Therapy 3.0-4.0 PT 27.6(H) 9.0 - 11.5 sec [facility] Comment: For additional information, please refer to http://education.Hitwise/faq/BCM743 (This link is being provided for informational/ educational purposes only.) Blood 08/17/2024 10:3 4 AM CDT 08/17/2024 10:34 AM CDT Narrative [facility] - 08/17/2024 6:58 PM CDT FASTING:NO FASTING: NO us Chris Hart MD LAB BLOOD ORDERABLES Final Result Performing Organization Address City/[facility]/ZIP Co de Phone Number [facility] [address] [place] [address] * FL ERCP Biliary Duct (08/07/2024 3:03 PM CDT) Narrative [id number] - 08/07/2024 3:03 PM CDT The images from this study are not interpreted by Radiology. Please refer to the physician's procedure / OR operative note. us Chris Holcomb MD IMG FLUOROSCOPY PROCEDURES Final Result Performing Organization Address City/[facility]/ZIP Co de Phone Number [email or web address] * ERCP [...] Two biliary stents were visible on the painter ski edge film. The esophagus was successfully intubated under [...] MD PhD LAB BLOOD ORDERABLES Final Result [facility] Department [place] [address] * (ABNORMAL) Differential, auto (08/03/2024 11:36 AM CDT) Neutrophil abs 3.4 1.5 - 6.5 K/cumm Imm gran abs 0.0 0.0 - 0.1 K/cumm [facility] Lymphocyte abs 0.4(L) 0.8 - 3.3 K/cumm [facility] Monocyte abs 0.9(H) 0.2 - 0.8 K/cumm [facility] Eosinophil abs 0.1 0.0 - 0.5 K/cumm [facility] Basophil abs 0.0 0.0 - 0.1 K/cumm [facility] Neutrophil pct 69.7 % [facility] Comment: Interpretive Data Percent cell count reference ranges are not reported, since discordance with absolute values may lead to misinterpretation of CBC data. Current Interpretive Data was last revised on 2017. Imm gran pct 0.8 % [facility] Comment: Interpretive Data Percent cell count reference ranges are not reported, since discordance with absolute values may lead to misinterpretation of CBC data. Current Interpretive Data was last revised on 2017. Lymphocyte pct 9.1 % [facility] Comment: Interpretive Data Percent cell count reference ranges are not reported, since discordance with absolute values may lead to misinterpretation of CBC data. Current Interpretive Data was last revised on 2017. Monocyte pct 17.9 % [facility] Comment: Interpretive Data Percent cell count reference ranges are not reported, since discordance with absolute values may lead to misinterpretation of CBC data. Current Interpretive Data was last revised on 2017. Eosinophil pct 2.1 % [facility] Comment: Interpretive Data Percent cell count reference ranges are not reported, since discordance with absolute values may lead to misinterpretation of CBC data. Current Interpretive Data was last revised on 2017. Basophil pct 0.4 % [facility] Comment: Interpretive Data Percent cell count reference ranges are not reported, since discordance with absolute values may lead to misinterpretation of CBC data. Current Interpretive Data was last revised on 2017. Blood 08/03/2024 11:3 6 AM CDT 08/03/2024 11:54 AM CDT us Gorge Vaughan MD PhD LAB BLOOD ORDERABLES Final Result [facility] Department [place] [address] * (ABNORMAL) CBC with auto differential (08/03/2024 11:36 AM CDT) WBC 4.9 3.8 - 9.9 K/cumm Hgb 11.0(L) 13.0 - 17.5 g/dL [facility] Hct 30.3(L) 38.9 - 50.3 % [facility] Plt 172 150 - 400 K/cumm [facility] MPV 9.7 9.1 - 12.3 fL [facility] RBC 3.09(L) 4.30 - 5.80 M/cumm [facility] MCV 98.1(H) 81.3 - 96.4 fL [facility] MCH 35.6(H) 27.1 - 33.3 pg [facility] MCHC 36.3(H) 32.3 - 35.7 g/dL [facility] RDW CV 16.7(H) 11.1 - 14.9 % [facility] RDW SD 48.5(H) 35.7 - 48.1 fL [facility] NRBC abs 0.03(H) 0.00 - 0.01 K/cumm [facility] Blood 08/03/2024 11:3 6 AM CDT 08/03/2024 11:54 AM CDT Gorge Vaughan MD PhD LAB BLOOD ORDERABLES Final Result Performing Organization Address [facility] [place] [address] * (ABNORMAL) Cancer antigen 19-9 (08/03/2024 11:36 AM CDT) CA 19-9 ag 52.0(H) <=35.0 units/mL Comment: Interpretive Data The [employer] CA 19-9 assay procedure was used. Results from different manufacturers or methods may not be comparable. Serial testing should be performed using the same method. Blood 08/03/2024 11:3 6 AM CDT 08/03/2024 11:54 AM CDT Gorge Vaughan MD PhD LAB BLOOD ORDERABLES Final Result Performing Organization Address [facility] [place] [address] * (ABNORMAL) Protime-INR (08/03/2024 11:36 AM CDT) PT 14.9(H) 9.7 - 13.0 sec INR 1.37(H) 0.90 - 1.20 [facility] Comment: Interpretive data Oral anticoagulant therapeutic ranges: Venous thromboembolism prophylaxis or treatment: 2.0-3.0 CARDIOLOGY Standard range: 2.0-3.0 High-intensity range: 2.5-3.5 Refer to indication-specific guidelines for appropriate target ranges for prosthetic heart valve replacement. Current interpretive data was last revised on 2019. Blood 08/03/2024 11:3 6 AM CDT 08/03/2024 12:01 PM CDT us Chris Holcomb MD LAB BLOOD ORDERABLES Final Result [facility] Department [place] [address] * (ABNORMAL) Comprehensive metabolic panel (08/03/2024 11:36 AM CDT) Sodium 134(L) 135 - 145 mmol/L Potassium, pl 4.4 3.3 - 4.9 mmol/L [facility] Chloride 97 97 - 110 mmol/L [facility] CO2 26 22 - 32 mmol/L [facility] Anion gap 11 2 - 15 mmol/L [facility] BUN 29(H) 6 - 25 mg/dL [facility] Creatinine 1.18 0.80 - 1.30 mg/dL [facility] Glucose 113 70 - 199 mg/dL [facility] Comment: Interpretive Data Fasting glucose >/= 126 [...] 2022. Calcium 9.6 8.5 - 10.3 mg/dL [facility] Bilirubin, total 0.9 0.1 - 1.2 mg/dL [facility] Protein, pl 7.3 6.5 - 8.5 g/dL [facility] Albumin 4.4 3.5 - 5.0 g/dL [facility] Alk phos 116 40 - 130 Units/L [facility] ALT 23 7 - 55 Units/L [facility] AST 34 10 - 50 Units/L [facility] Blood 08/03/2024 11:3 6 AM CDT 08/03/2024 11:54 AM CDT us Gorge Vaughan MD PhD LAB BLOOD ORDERABLES Final Result Performing Organization Address [facility] Co de Phone Number [facility] [place] [address] * (ABNORMAL) Protime-INR (07/31/2024 2:11 PM CDT) PT 32.0(H) 9.7 - 13.0 sec INR 2.90(H) 0.90 - 1.20 [facility] Comment: Interpretive data Oral anticoagulant therapeutic ranges: Venous thromboembolism prophylaxis or treatment: 2.0-3.0 CARDIOLOGY Standard range: 2.0-3.0 High-intensity range: 2.5-3.5 Refer to indication-specific guidelines for appropriate target ranges for prosthetic heart valve replacement. Current interpretive data was last revised on 2019. Blood 07/31/2024 2:11 PM CDT 07/31/2024 2:52 PM CDT Chris Hart MD LAB BLOOD ORDERABLES Final Result Performing Organization Address [facility] Co de Phone Number [facility] [place] [address] * POCT INR (07/29/2024 4:29 PM CDT) Pathologist [facility] INR, POC 7.30 Blood Venous blood specimen / Unknown 07/29/2024 4:29 PM CDT Chris Hart MD POINT OF CARE TEST OR DERABLES Final Result * Critical Result Callback Hematology (07/29/2024 2:31 PM CDT) Date Notified [id number] Time Notified 1599 [facility] TestName INR [facility] Called/Read Back Seema COREY Credentials RN [facility] Called By WILMAN COREY Blood 07/29/2024 2:31 PM CDT 07/29/2024 2:53 PM CDT us Aisha Rater [employer]ACH[employer] LAB BLOOD ORDERABLES Final Resul t Performing Organization Address [facility] Co de Phone Number [facility] Department [place] [address] * (ABNORMAL) Protime-INR (07/29/2024 2:31 PM CDT) PT 80.1(H) 9.7 - 13.0 sec INR 7.13(C) 0.90 - 1.20 [facility] Comment: No clot detected in sample - [id number] - 07/29/24, 3:38 PM Interpretive data Oral anticoagulant therapeutic ranges: Venous thromboembolism prophylaxis or treatment: 2.0-3.0 CARDIOLOGY Standard range: 2.0-3.0 High-intensity range: 2.5-3.5 Refer to indication-specific guidelines for appropriate target ranges for prosthetic heart valve replacement. Current interpretive data was last revised on 2019. Blood 07/29/2024 2:31 PM CDT 07/29/2024 2:51 PM CDT us Aisha Rater [employer]ACHINE LAB BLOOD ORDERABLES Final Resul t Performing Organization Address [facility] Phone Number [facility] Department [place] [address] * (ABNORMAL) Protime-INR (07/29/2024) INR 7.30(A) 0.90 - 1.10 [facility] Blood 07/29/2024 us Historical Provider LAB BLOOD ORDERABLES Lila dawson Result Performing Organization Address [facility] Co de Phone Number [facility] * (ABNORMAL) Protime-INR (07/27/2024 9:50 AM CDT) INR 5.3(H) [facility] Comment: Verified by repeat analysis. Reference Range 0.9-1.1 Moderate-intensity Warfarin Therapy 2.0-3.0 Higher-intensity Warfarin Therapy 3.0-4.0 PT 50.3(H) 9.0 - 11.5 sec [facility] Comment: Verified by repeat analysis. For additional information, please refer to http://Magin/faq/PWW523 (This link is being provided for informational/ educational purposes only.) Blood 07/27/2024 9:50 AM CDT 07/27/2024 9:51 AM CDT Narrative [facility] - 07/27/2024 5:06 PM CDT FASTING:NO FASTING: NO Chris Hart MD LAB BLOOD ORDERABLES Final Result Performing Organization Address [facility] Co de Phone Number [facility] [address] [place] [address] * SCAN - LABS (07/27/2024) Provider Scanning Final Result * (ABNORMAL) Protime-INR (07/22/2024 9:33 AM CDT) INR 4.9(H) [facility] Comment: Reference Range 0.9-1.1 Moderate-intensity Warfarin Therapy 2.0-3.0 Higher-intensity Warfarin Therapy 3.0-4.0 PT 46.9(H) 9.0 - 11.5 sec [facility] Comment: For additional information, please refer to http://Tushky.Hitwise/faq/DBU227 (This link is being provided for informational/ educational purposes only.) Blood 07/22/2024 9:33 AM CDT 07/22/2024 9:35 AM CDT Chris Hart MD LAB BLOOD ORDERABLES Final Result Performing Organization Address [facility] Co de Phone Number [facility] [address] [place] [address] * Protime-INR (07/14/2024 1:29 PM CDT) PT 12.3 9.7 - 13.0 sec Comment:Testing performed by : [facility], [address] [place] [address] INR 1.14 0.90 - 1.20 [facility] Comment: Interpretive data Oral anticoagulant therapeutic ranges: Venous thromboembolism prophylaxis or treatment: 2.0-3.0 CARDIOLOGY Standard range: 2.0-3.0 High-intensity range: 2.5-3.5 Refer to indication-specific guidelines for appropriate target ranges for prosthetic heart valve replacement. Current interpretive data was last revised on 2019. Testing performed by: [facility], [address] [place] [address] Blood 07/14/2024 1:29 PM CDT 07/14/2024 1:59 PM CDT Katie Reeder MD LAB BLOOD ORDERABLES Final Resul t [facility] [address] Department of Laboratories [place], [place] [id number] * eGFR (07/14/2024 11:59 AM CDT) eGFR [...] was last reviewed 2021. Testing performed by: [facility], [address] [place] [address] Blood 07/14/2024 11:5 9 AM CDT 07/14/2024 12:13 PM CDT Gorge Vaughan MD PhD LAB BLOOD ORDERABLES Final Result [facility] [address] [place] [address] * Differential, auto (07/14/2024 11:59 AM CDT) Neutrophil abs 2.9 1.5 - 6.5 K/cumm Comment:Testing performed by : [facility], [address] [place] [address] Imm gran abs 0.0 0.0 - 0.1 K/cumm CERNER BJW Comment:Testing performed by : [facility], [address] [place] [address] Lymphocyte abs 0.8 0.8 - 3.3 K/cumm CERNER BJWCH Comment:Testing performed by : [facility], [address] [place] [address] Monocyte abs 0.8 0.2 - 0.8 K/cumm CERNER BJWCH Comment:Testing performed by : [facility], [address] [place] [address] Eosinophil abs 0.1 0.0 - 0.5 K/cumm CERNER BJWCH Comment:Testing performed by : [facility], [address] [place] [address] Basophil abs 0.0 0.0 - 0.1 K/cumm CERNER BJWCH Comment:Testing performed by : [facility], [address] [place] [address] Neutrophil pct 62.5 % CERNER BJWCH Comment: Interpretive Data Percent cell count reference ranges are not reported, since discordance with absolute values may lead to misinterpretation of CBC data. Current Interpretive Data was last revised on 2017. Testing performed by: [facility], [facility], [address] [place] [address] Imm gran pct 0.6 % CERNER BJWCH Comment: Interpretive Data Percent cell count reference ranges are not reported, since discordance with absolute values may lead to misinterpretation of CBC data. Current Interpretive Data was last revised on 2017. Testing performed by: [facility], [facility] [place], [address] [place] [address] Lymphocyte pct 17.6 % CERNER BJWCH Comment: Interpretive Data Percent cell count reference ranges are not reported, since discordance with absolute values may lead to misinterpretation of CBC data. Current Interpretive Data was last revised on 2017. Testing performed by: [facility], [facility] [place], [address] [place] [address] Monocyte pct 17.6 % CERNER BJWCH Comment: Interpretive Data Percent cell count reference ranges are not reported, since discordance with absolute values may lead to misinterpretation of CBC data. Current Interpretive Data was last revised on 2017. Testing performed by: [facility], [facility] [place] [facility], [address] [place] [address] Eosinophil pct 1.1 % CERNER BJWCH Comment: Interpretive Data Percent cell count reference ranges are not reported, since discordance with absolute values may lead to misinterpretation of CBC data. Current Interpretive Data was last revised on 2017. Testing performed by: [facility], [facility] [place], [address] [place] [address] Basophil pct 0.6 % CERNER BJWCH Comment: Interpretive Data Percent cell count reference ranges are not reported, since discordance with absolute values may lead to misinterpretation of CBC data. Current Interpretive Data was last revised on 2017. Testing performed by: [facility], [facility] [place], [address] [place] [address] Blood 07/14/2024 11:5 9 AM CDT 07/14/2024 12:01 PM CDT us Gorge Vaughan MD PhD LAB BLOOD ORDERABLES Final Result [facility] [address] [facility] Department [place] [address] * (ABNORMAL) CBC with auto differential (07/14/2024 11:59 AM CDT) WBC 4.7 3.8 - 9.9 K/cumm Comment:Testing performed by : [place] [address], [place] [address] Hgb 11.0(L) 13.0 - 17.5 g/dL STAN BJWCH Comment:Testing performed by : [address] [place] [address], [place] [address] Hct 31.9(L) 38.9 - 50.3 % STAN BJWCH Comment:Testing performed by : [place] [address], [address] [place] [address] Plt 108(L) 150 - 400 K/cumm STAN BJWCH Comment:Testing performed by : [address] [place] [address] MPV 9.6 9.1 - 12.3 fL STAN BJWCH Comment:Testing performed by : [place] [address], [address] [place] [address] RBC 3.24(L) 4.30 - 5.80 M/cumm STAN BJWCH Comment:Testing performed by : [place] [address], [address] [place] [address] MCV 98(H) 81 - 96 fL CERKERI BJWCH Comment:Testing performed by : [address] [address], [place] [address] MCH 34.0(H) 27.1 - 33.3 pg STAN BJWCH Comment:Testing performed by : [facility], [facility] [place], [address] [place] [address] MCHC 34.5 32.3 - 35.7 g/dL STAN BJWCH Comment:Testing performed by : [facility], [facility] [place], [address] [place] [address] RDW CV 14.6 11.1 - 14.9 % STAN BJWCH Comment:Testing performed by : [facility], [facility] [place], [address] [place] [address] RDW SD 53.1(H) 35.7 - 48.1 fL STAN BJWCH Comment:Testing performed by : [facility], [facility] [place], [address] [place] [address] Blood 07/14/2024 11:5 9 AM CDT 07/14/2024 12:01 PM CDT Gorge Vaughan MD PhD LAB BLOOD ORDERABLES Final Result [facility] [address] [facility]. Department [place] [address] * (ABNORMAL) Cancer antigen 19-9 (07/14/2024 11:59 AM CDT) CA 19-9 ag 77.8(H) 0.0 - 35.0 units/mL Comment: Interpretive Data The Dereck CA 19-9 assay procedure was used. Results from different manufacturers or methods may not be comparable. Serial testing should be performed using the same method. Testing performed by: [facility], [address] [place] [address], [place]., [address] Blood 07/14/2024 11:5 9 AM CDT 07/14/2024 9:10 PM CDT Gorge Vaughan MD PhD LAB BLOOD ORDERABLES Final Result [facility] [address] Department [place] [address] * (ABNORMAL) Comprehensive metabolic panel (07/14/2024 11:59 AM CDT) Sodium 133(L) 135 - 145 mmol/L Comment:Testing performed by : [facility], [address], [place] [address] Potassium, pl 4.2 3.3 - 4.9 mmol/L CERNER BJWCH Comment:Testing performed by : [facility], [address], [place] [address] Chloride 96(L) 97 - 110 mmol/L CERNER BJWCH Comment:Testing performed by : [facility], [address], [place] [address] CO2 26 22 - 32 mmol/L CERNER BJWCH Comment:Testing performed by : [facility], [address], [place] [address] Anion gap 11 2 - 15 mmol/L CERNER BJWCH Comment:Testing performed by : [facility], [address], [place] [address] BUN 20 6 - 25 mg/dL CERNER BJWCH Comment:Testing performed by : [facility], [address], [place] [address] Creatinine 0.90 0.80 - 1.30 mg/dL CERNER BJWCH Comment:Testing performed by : [facility], [address], [place] [address] Glucose 99 70 - 199 mg/dL CERNER [...] was last revised 2022. Testing performed by: [facility], [address], [place] [address] Calcium 9.5 8.5 - 10.3 mg/dL CERNER BJWCH Comment:Testing performed by : [facility], [address], [place] [address] Bilirubin, total 0.6 0.1 - 1.2 mg/dL CERNER BJWCH Comment:Testing performed by : [facility], [address], [place] [address] Protein, pl 6.9 6.5 - 8.5 g/dL CERNER BJWCH Comment:Testing performed by : [facility], [address], [place] [address] Albumin 4.3 3.5 - 5.0 g/dL CERNER BJWCH Comment:Testing performed by : [facility], [address], [place] [address] Alk phos 115 40 - 130 Units/L CERNER BJWCH Comment:Testing performed by : [facility], [address], [place] [address] ALT 32 7 - 55 Units/L CERNER BJWCH Comment:Testing performed by : [facility], [address], [place] [address] AST 34 10 - 50 Units/L CERNER BJWCH Comment:Testing performed by : [facility], [address], [place] [address] Blood 07/14/2024 11:5 9 AM CDT 07/14/2024 12:13 PM CDT us Gorge Vaughan MD PhD LAB BLOOD ORDERABLES Final Result [facility] [address] Department [place] [address] * CT 3-D Rendering Separate Modality (07/14/2024 [...] MR examination dated 07/10/2024 with accession number [id number] was processed on a separate workstation for calculation of liver volumes using 3 dimensional reconstructions. Procedure Note Sepideh Atkins MD - 07/14/2024 EXAMINATION: THREE DIMENSIONAL RECONSTRUCTION FOR LIVER VOLUMES TECHNIQUE: The raw data from MR examination dated 07/10/2024 with accession number [id number] was processed on a separate workstation for calculation of liver volumes using 3 dimensional reconstructions. IMPRESSION: Total liver volume: 1836 mL Dictated by: Kboi Timmons MD The radiology attending physician has personally reviewed this study, and had reviewed and/or edited this written report and agrees with it. Electronically signed by: Sepideh Atkins M.D. Katie Reeder MD [facility] [place] PROCEDURES Final Result * (ABNORMAL) Hemoglobin A1c (06/22/2024 2:10 PM MUD TRUCKER) HbA1c 7.9(H) 5.1 - 5.6 % [facility] Comment: HBA1C 5.1 - 5.6 = NORMAL HBA1C 5.7 - 6.4 = PREDIABETES HBA1C >=6.5 = PROVISIONAL DIAGNOSIS OF DIABETES Estimated Average Glucose 180 mg/dL [facility] Blood 06/22/2024 2:10 PM MUD TRUCKER 06/22/2024 3:15 PM MUD TRUCKER Lex Perez MD LAB BLOOD ORDERABLES Final Resu lt Performing Organization Address City/[facility]/ZIP Co de Phone Number [facility] * Hepatitis C antibody Blood (06/08/2024 7:28 AM MUD TRUCKER) Hep C Ab Nonreactive Nonreactive Comment:Antibodies to HCV no t detected. Does NOT exclude the possibility of recent exposure to HCV. Current interpretive data was last revised on 22 Blood 06/08/2024 7:28 AM MUD TRUCKER 06/08/2024 8:06 AM MUD TRUCKER Narrative [facility] - 06/08/2024 8:55 AM MUD TRUCKER Please add the following comment to each lab: This lab is being obtained as part of a liver transplant evaluation, is time sensitive, and should only be drawn during the evaluation visit at [facility] Lab. Katie Reeder MD LAB MICROBIOLOGY - GENERAL ORDER DEMETRIO Final Result Performing Organization Address City/[facility] Co de Phone Number [facility] Department [place] [address] * (ABNORMAL) Lipid panel (06/08/2024 7:28 AM MUD TRUCKER) Pathologist [facility] Cholesterol 176 30 - 199 mg/dL Comment: [...] revised on 2017. Triglycerides 266(H) <=149 mg/dL [facility] Comment: Interpretive Data Ages < or = [...] revised on 2017. HDL 70 >=40 mg/dL [facility] Comment: Interpretive Data Ages < or = [...] on 2017. LDL, calculated 64 <=129 mg/dL [facility] Comment: Interpretive Data Ages < or = [...] NCEP Expert Panel. Circulation 2004;110:227 3. Sammy Drake al. DEBBIE Cardiol. 2020 September 03;5(5):540-548. doi: 10.1001/jamacardio.2020.0013 Current Interpretive Data was last revised on 2023. Non-HDL Cholesterol 106 mg/dL [facility] Comment: Interpretive Data Ages < or = [...] last revised on 2017. Chol/HDL ratio 3 [facility] Blood 06/08/2024 7:28 AM MUD TRUCKER 06/08/2024 8:07 AM MUD TRUCKER Narrative [facility] - 06/08/2024 8:54 AM MUD TRUCKER This lab is being obtained as part of a liver transplant evaluation, is time sensitive, and should only be drawn during the evaluation visit at [facility] Lab. Katie Reeder MD LAB BLOOD ORDERABLES Final Resul t Performing Organization Address City/State/[facility] Co de Phone Number [facility] [place] [address] from Last 3 Months or Most Recently Relevant to Health Maintenance Insurance [facility] MEDICARE HMO [employer] MEDICARE HMO TRANSPLANT [facility] MEDICARE RISK Advance Directives For more information, please contact: [phone] Documents on File Type Date Recorded Patient Metal Forger'S Assistant Expl anation ADVANCE DIRECTIVE 01/23/2024 3:15 PM POWER OF DAY CARE DIRECTOR-MEDICAL ADVANCE DIRECTIVE 01/19/2024 12:41 PM MORALES R OF DAY CARE DIRECTOR-MEDICAL * Full Code (Latest Code Status on [...] 9:45 AM 03/18/2024 3:42 PM Care Teams Drug Coordinator Relationship Specialty Start Date End Date Gilberto Martinez MD [address] [facility] [address] [place] [address] PCP - General 07/11/16 Zane Richey III, MD [address] [facility] [address] [place] [address] Consulting Physician Cardiology 05/18/21 Raudel Childers MD [address] [facility] [id number] [place] [address] Consulting Physician Colon and Rectal Surgery 12/26/21 Chris Hart MD [address] [address] [facility] 03/17/24 Ely Tejada PA [address] [facility] [id number] [place] [address] Referring Physician Physician Emergency Dept Tech 04/09/24 Charlee Mcmillan RMA Surgical Prehabilitation and Readiness (SPAR) Coordinator 06/11/24 Mariama Parisi, RN [address] [facility] [address] [place] [address] Physical Sciences Instructor 08/07/24 Agustina Li MD PhD [id number] [place] [address] Medical Oncologist/Heading Machine Operator Medical Oncology 09/09/24
--- OUTSIDE RECORDS SUMMARY | 2024-10-13 19:49 | XMS_ITS | Data Portability ---
Author Organization Gilberto Tomlinson [employer] Address [address] [facility] [address] [place] [address] Care Team Providers Care Renovator Machine Operator Name Role Phone RAMONA PAULSON Bridal Gown Fitter FREEDOM BELL Plastic Duplicator JONATHAN ST Sleep Medicine Assessment Encounter Date Assessment Date Assessment LastModified by Organization Details LastModified Time 11/27/2023 11/27/2023 1. Liver tumor. Elevated CEA levels were observed, while kidney function remains good. A referral will be made to the [facility] for a second opinion. 2. Insomnia. Trazodone and Ambien have proven ineffective in managing his insomnia. Ndfi-ntv-nupleut melatonin was suggested for nightly use. 3. Atrial fibrillation. His blood pressure and kidney function are within normal limits. Continuation of metoprolol was advised. 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 He has experienced skin lesions, likely due to chemotherapy. Anemia, a common side effect of chemotherapy, is present, but kidney function remains normal. A referral to the [facility] will be made to explore surgical resection options and a second opinion. Imaging will be done after 3 months to assess the tumor and determine the next steps. He is advised to continue his current chemotherapy regimen, which includes two weeks on, one week off, for a total of 6 months. 2. Suspected Parkinson's disease. He has been experiencing symptoms such as slow walking, reduced arm swinging, and occasional difficulty in completing thoughts. However, there is no definitive evidence of Parkinson's disease at this time. He is encouraged to maintain physical activity, including walking, and to ensure adequate calcium intake. His posture has been leaning more, likely due to osteopenia (-1.1 in the femoral and -0.2 in the hip) rather than osteoporosis. 3. Insomnia. Ramelteon will be prescribed for bedtime use over the next 30 days. The prescription will be sent to [facility] pharmacy on [facility]. 4. Anemia. His hemoglobin is low, which is affecting his energy levels and causing shortness of breath. This is expected from chemotherapy. He is advised to continue taking more protein in his diet. If desired, he can take an iron pill, but it may cause dark stools and interact with other medications. 5. Heart murmur. A heart murmur has been detected, which could be related to anemia. He has a history of sick sinus rhythm but recent evaluations by a vocational instructor indicated no immediate concerns. He is currently taking metoprolol, which can cause tiredness and is advised to take it at night. 6. Health Maintenance. He is advised to get the flu shot and the new COVID-19 vaccine. These will be administered during his next visit in February. Follow-up The patient will follow up in February 2024. [email or web address] Not available 01/15/2024 17:41:22 02/05/2024 02/05/2024 1. Fatigue. He reports significant fatigue, especially when engaging in physical activities such as climbing stairs. His laboratory results show slightly low potassium levels, but otherwise, his complete blood count (CBC) is satisfactory. The ejection fraction is within normal range. He is advised to continue monitoring his fatigue levels and to use a pulse oximeter to check oxygen levels during episodes of heavy breathing. A letter has been sent to [facility] regarding his condition. 2. Leaky heart valve. The heart valves exhibit minor leakage, with the aortic valve leaking slightly and the mitral valve showing moderate leakage. This does not necessitate immediate intervention. He is advised to continue with his current medications and to monitor for any worsening symptoms. 3. Medication Management. He is currently taking allopurinol, amlodipine 5 mg, betahistine, citalopram, dexamethasone, Eliquis, hydrochlorothiazi de, hydroxyzine (as needed), lisinopril 40 mg, metoprolol 12.5 mg, ondansetron (occasionally), prochlorperazine, ramelteon 8 mg, simvastatin, and vitamin D. He is advised to continue these medications as prescribed. A prescription for rosuvastatin will be provided to manage his cholesterol levels. He is also advised to continue taking a baby aspirin daily. A beta karoline will be prescribed to help reduce the risk of heart attacks. 4. Health Maintenance. He received a flu shot and a COVID-19 vaccine during the visit. Follow-up Return in 3 weeks for follow up. [email or web address] Not available 02/05/2024 14:13:55 04/24/2024 04/24/2024 1. Annual wellness examination. His EKG results are within normal limits. He is current with his influenza and COVID-19 vaccinations. His Prevnar vaccine is up-to-date. He has not received a tetanus vaccine recently, but there is no immediate need for one as he has not sustained any recent cuts or injuries. His RSV vaccination status is uncertain and will be confirmed with his . 2. Visual impairment. He reports difficulty reading text on the TV screen and has not seen an eye doctor since starting chemotherapy. He is advised to schedule an appointment with his can pusher, Dr. Remington Najera, for a comprehensive eye examination to determine if new refraction or other interventions are needed. 3. Shortness of breath. He experiences shortness of breath upon exertion. An echocardiogram ultrasound has been scheduled to evaluate his heart function. If there is a valve problem, percutaneous options will be considered to avoid open bypass surgery. 4. Chemotherapy-mando nola side effects. He reports various side effects from chemotherapy, including skin rashes on his forearms, increased bruising, and altered taste. These symptoms are likely related to his chemotherapy treatment. [email or web address] Not available 04/24/2024 12:40:27 Plan of Treatment Reminders Order Date Submit Date Provider Last Modified By Organization Details Last Modified Time Details Appointments None recorded. Lab PSA, serum or plasma 2023 024 [employer], [address], [place], [address], 09:32:51 urinalysis, dipstick 2023 024 [email or web address] 8 Main Office, [address], [address], [place], [address], 4 12:44:30 CMP, serum or plasma 2023 [facility], [address] , [place], [address], 4 19:49:46 hepatitis panel (A+B+C), acute, serum 2023 [facility], [address] , [place], [address], 4 19:49:46 bilirubin fractions panel, QN, serum or plasma 2023 [facility], [address] , [place], [address], 4 19:49:46 CBC w/ auto diff 2023 [facility], [address] , [place], [address], 4 19:49:44 urinalysis, complete 2023 [facility], [address] , [place], [address], 4 19:49:47 uric acid, serum or plasma 2023 [facility], [address], [place], [address], 4 19:49:45 Referral None recorded. Procedures body composition analysis (PROC) 2023 024 [id number] Main Office, [address], [address], [place], [address], 4 12:12:05 gait test (PROC) 2023 024 [email or web address] 8 Main Office, [address], [address], [place], [address], 4 12:12:34 Surgeries None recorded. Imaging electrocard iogram 2023 024 [email or web address] Main Office, [address], [address], [place], [address], 4 15:50:17 audiogram 2023 024 [email or web address] Main Office, [address], [address], [place], [address], 4 15:50:17 US, abdomen - Paoinless jaundice- labs pending 2023 024 [facility] [address], [place], [address], 5 05:01:19 Medication Orders ramelteon 8 mg tablet 2023 024 8 [id number], [address], [place], [address], 4 14:51:31 hydroxyzine HCl 25 mg tablet 2023 024 [email or web address] 9 [id number], [address], [place], [address], 4 11:30:10 Patient TargetsNo targets recorded. Patient Instructions Encounter Date Encounter Id Patient Instructions Last Modified By Organization Details Last Modified Time 11/27/2023 [id number] 1. Follow throug h with the referral to the [facility] for a second opinion regarding the liver tumor. 2. Start taking fxgh-flh-mjelevh melatonin each night to help manage your insomnia. 3. Continue taking metoprolol as prescribed for atrial fibrillation. [email or web address] Not available 11/27/2023 11:03:09 Laboratory Studi es CEA was elevated. Kidney function was good. [email or web address] Not available 11/27/2023 11:03:08 01/15/2024 [id number] 1. Continue your current chemotherapy regimen: two weeks on, one week off, for a total of 6 months. 2. Watch for skin lesions and manage them as recommended by your healthcare team. 3. Attend the referral appointment with Dr. Contreras at [facility] to explore surgical resection options. 4. Schedule and complete imaging in three months to assess the tumor. 5. Maintain physical activity, including walking. 6. Ensure adequate calcium intake to support bone health. 7. Take Ramelteon at bedtime for the next 30 days for insomnia. Collect the prescription from [facility] pharmacy on [facility]. 8. Increase protein intake in your diet to help manage anemia. 9. Consider taking an iron pill if you desire, but be aware it may cause dark stools and interact with other medications. 10. Take metoprolol at night to manage your heart murmur and related symptoms. 11. Get the flu shot and the new COVID-19 vaccine during your next visit in February. 12. Follow up with your healthcare provider in February 2024. [email or web address] Not available 01/15/2024 11:53:42 Laboratory Studi es Hemoglobin is low at 8. Imaging DEXA scan shows osteopenia, not osteoporosis. [email or web address] Not available 01/15/2024 11:53:42 02/05/2024 [id number] aortic valve regurgitation: care instructions [email or web address] Not available 07/30/2024 13:42:39 1. Monitor your fatigue levels closely and use a pulse oximeter to check your oxygen levels during episodes of heavy breathing. 2. Continue taking all your current medications as prescribed. 3. Watch for any worsening symptoms related to your leaky heart valves. 4. Follow the prescription for rosuvastatin as directed to manage your cholesterol levels. 5. Take a baby aspirin daily as recommended. 6. Expect a new prescription for a beta karoline to help reduce the risk of heart attacks and follow the dosage guidelines. 7. Return for a follow-up visit in 3 weeks. [email or web address] Not available 02/05/2024 14:13:56 Laboratory Studi es Potassium is a little low. CBC is good. Total cholesterol is 189, LDL is 128. Imaging Echocardiogram shows aortic valve leaks a little bit, mitral valve is moderate. [email or web address] Not available 02/05/2024 14:13:55 04/24/2024 [id number] spirometry testing* [email or web address] Not camiloai jza 04/24/2024 12:09:59 visual acuity* [email or web address] Not available 04/24/2024 12:10:18 (RENAN) ankle brac hial index* [email or web address] Not available 04/24/2024 12:11:07 albarran anxiety inventory* [email or web address] Not available 04/24/2024 12:11:51 epworth sleepine ss scale* [id number] Not available 04/24/2024 12:11:33 it software developer test* [id number] Not available 04/06 12:13:32 Cognitive Assess ment Battery* [email or web address] Not available 04/24/2024 11:13:32 In compliance wi Medicare guidelines, we will be billing Medicare to inform them of your adherence to completing your necessary preventive care. Patient reminded blood was drawn today. Encouraged to hydrate and be cautious as they may become dizzy or light headed. If issues or symptoms, return to clinic or contact nearest medical personnel. We look forward to seeing you to discuss the results of these labs. Be well and see you soon! 1. Confirm your RSV vaccination status with your . 2. Schedule an appointment with your can pusher, Dr. Remington Najera, for a comprehensive eye examination. 3. Await the echocardiogram ultrasound to evaluate your heart function. 4. Monitor and report any changes in your chemotherapy side effects, including skin rashes, bruising, or altered taste sensations, to your healthcare provider. [email or web address] Not available 04/24/2024 12:40:27 Immunization Recommendations: Influenza causes approximately 24,000 deaths per year. The vaccine prevents a major portion of the number of cases and reduces hospitalizations and deaths. YOu are up to date. The Pneumococcal vaccine is recommended to prevent the invasive complications of the pneumococcal bacteria. It is effective against preventing the pneumonia caused by this bacteria.You are up to date. The Shingles vaccine reduces the risk of the outbreak of the rash and reduces the often more troubling painful post-herpetic neuralgia.You have had the Zostavax. The Tetanus/Diptheria vaccine is given as a booster every ten years. YOur last one was in 2007. Vitamins and Supplements I believe that the illnesses so many of us will face in the future are strongly influenced by years of food choices. For those looking to further optimize specific aspects of health, there are supplements. As the name states, supplements simply supplement healthy habits. They are not a rescue from poor habits or a replacement for healthy eating. Turmeric Turmeric, also know as curcuma longa or curcumin, is created when the horizontal roots of the plant are dug up, baked, and ground into an orange powder. Aside from adding some spice to and dishes, turmeric has some medicinal properties as well. Turmeric has anti-inflammatory properties and can reduce the pain associated with different forms of arthritis. Turmeric is useful as a preventive agent against Alzheimer s disease as it interrupts the accumulation of certain plaques that are found in the brains of Alzheimer s patients. The incidence of Alzheimer s is lowest in regions of the world where turmeric consumption is highest. Most important, turmeric is safe and without any significant risks. Coenzyme Q10 Coenzyme Q10 is something our bodies manufacture. It serves a dual purpose of not only being an antioxidant but also serves an important role in helping to produce energy in our cells. It is produced in the heart, liver, kidneys and pancreas and supplementation can be important in several conditions. As we age the natural production of Coenzyme Q10 declines and so does our ability to convert Coenzyme Q10 to its active form, Ubiquinol. There are studies suggesting benefit for Coenzyme Q10 in patients with congestive heart failure. In this condition, supplementation clearly improves ejection fracture, a very important measure of cardiac function. In addition, those patients who use statin type cholesterol medications are at risk for a reduction in Coenzyme Q10 production and we can attribute statin related muscle side effects to this depletion. For this reason, I suggest Coenzyme Q10 supplementation with 100-200mg per day in those taking statins daily. Vitamin D Vitamin D is really more of a hormone than a vitamin. It is produced in the skin upon exposure to sun and production only occurs when you re outside at certain times of day as the angle of the suns rays has a lot to do with effective production. Adequate vitamin D levels based on [employer] are in the 30-35 range, although I think 40-80 seems to be better. Vitamin D supplements may help to reduce postmenopausal bone loss . Low vitamin D levels are associated with a higher risk of rheumatoid arthritis, cardiovascular disease, insulin resistance and diabetes, higher cholesterol, higher levels of inflammatory markers, depression, asthma and allergies.. 1,000 to 2,000 IU Vitamin D3/day seem to be a good replacement dose. Multivitamins Numerous recent studies have concluded that there does NOT appear to be a health benefit in the majority of people who take multivitamins. Cardiovascular Prevention Recommendation: Patients with coronary artery disease: Multiple studies suggest that measuring ApoB and using this marker as a goal of treatment (rather than LDL cholesterol) will lead to improved outcomes. ApoB (or apolipoprotein B) is simply a protein attached to each circulating molecule of artery clogging cholesterol. In the past, we thought of LDL as the bad cholesterol, but we now know that there are other forms of dangerous cholesterol in circulation such as VLDL, Lp(a), and IDL and each is capable of causing atherosclerosis. Because there is a single ApoB attached to each one of these atherogenic types of cholesterol, the ApoB takes into account ALL forms of dangerous cholesterol and is a superior marker to LDL for estimating risk of heart disease. Patients with coronary artery disease should be treated to levels of ApoB below 62, which represents the 5th percentile for the population (better than 95/100 patients). Noninvasive Imaging- there are several checks such as carotid ultrasound, CIMT, coronary calcium scoring to check for atherosclerosis. We tend to steer patients to the CT coronary calcium test which I learned about at [place] with Flight Surgeon training. RENAN: Your ankle brachial index was normal indicating that you do NOT have peripheral arterial disease (evidence of blockages in the arteries that supply blood to the legs.) We perform this evaluation because peripheral arterial disease is a marker of risk of heart attack. Brain Health: We have learned that dementia is a process that begins up to 30 years before it finally manifests as memory loss. Preventing dementia is important and there are steps outlined below that we can take to help. Diet: There is significant data demonstrating the ability of a Mediterranean style diet to prevent cognitive decline in those who adhere to this style of eating remote computer terminal operator. Mediterranean eating involves a focus on nuts, oily fish, fruits and vegetables, olives and olive oil and limited red meat and other forms of saturated fat. Carbohydrates in excess lead to insulin resistance, prediabetes, and ultimately to diabetes and these states are strongly associated with the development of Alzheimer s dementia. In fact, the correlation is so strong that some experts are now calling Alzheimer s disease Type 3 diabetes. Other foods that may help with brain health and memory include apples, beets, blueberries, caffeinated green tea and coffee, cocoa (in dark chocolate), pecans and pistachios, red grapes (limit as they re high in sugar), spinach, black tea, and tomatoes. Curcumin, Turmeric, or newman: This Malian spice is available in capsule form. This can also be consumed as food although absorption into the bloodstream is difficult unless accompanied by black pepper (which most of the supplements contain). Lifestyle: Physical exercise is one of the best activities you can do to promote good brain health. We know from multiple studies that patients who exercise have larger memory centers (the hippocampus). Even those who begin to exercise later in life have enlargement of the memory center, and this increase in size is associated with improvement in cognitive function. Exercise also releases a chemical called Brain Derived Neurotropic Factor which leads to NEW brain cell formation. Physical exercise is probably as important, if not more important, than brain exercises like puzzles and other programs designed to challenge us cognitively. Overall Health and Lifestyle Recommendations: Good dental hygiene includes brushing your teeth twice a day and flossing daily. There is evidence that inflammation around your gums is correlated with inflammation in your vascular system and an increased risk of heart attack and strokes. Osteo/Fall Risk: Osteoporosis Osteoporosis is common condition across his bones to become weak and break more easily with minimal trauma. A simple bone mineral density test, also known as a DEXA scan, is painless and can help determine your risk of fracture (FRAX score) or if you have osteopenia or osteoporosis. You have osteopenia. Each year about one third of people over age 65 will fall. Many of these falls resulting broken bones. Here are some commonsense tips to prevent falls when you are inside your home- If you ve must use a stepstool, use a sturdy one with a handrail and wide steps Place light switches within reach of your bed Have a nightlight on between the bedroom and bathroom Keep a flashlight with fresh batteries by your bed Install grab bars on your bathroom perales beside the tub shower and toilet Use a nonskid rubber mat in the shower or tub If you are unsteady on your feet, consider using a shower or tub chair with a back and nonskid legs Keep stairwells well lit with light switches at the top and bottom. Install sturdy handrails on both sides Gilberto the top and bottom steps with bright tape Make sure the stairwell carpeting is secure Take a cell phone with you from room to room so that if you fall you can call for hel Men only -Testosterone - your level is fine. Cancer Prevention Recommendations: Skin Cancer Screening: No suspicious lesions were seen today. SPF 30 (or higher) sunscreen and a brimmed hat are recommended during times of sun exposure. Colorectal Cancer Screening: You are at average risk for colon cancer, so a colonoscopy is recommended every 10 years. YOur last one was in 2017. We can review getting another as 2026 approaches. [email or web address] Not available 04/26/2024 11:09:52 Reason for Referral None Reported. Results Created Date Observation Date Name Description Value Unit Range Abnormal Flag Note LastModifiedBy Organization Detail LastModifiedTime 04/24/20 24 04/24/2024 Cogni tive Asses sment Batte ry* braincheck - assess 96 0-200 Cogni tive impai rment : unlik heavenly Not Available Not Available 04/24/2024 11:13:20 04/24/20 24 04/24/2024 Cogni tive Asses sment Batte ry* braincheck - assess population percentile 40 % 0-100 [place] Not Available Not Available 04/24/2024 11:13:20 04/24/20 24 04/24/2024 Cogni tive Asses sment Batte ry* trails A 99 0-200 Impai rment : unlik heavenly Not Available Not Available 04/24/2024 11:13:20 04/24/20 24 04/24/2024 Cogni tive Asses sment Batte ry* trails A population percentile 48 % 0-100 [place] Not Available Not Available 04/24/2024 11:13:20 04/24/20 24 04/24/2024 Cogni tive Asses sment Batte ry* trails B 111 0-200 Impai rment : unlik heavenly Not Available Not Available 04/24/2024 11:13:20 04/24/20 24 04/24/2024 Cogni tive Asses sment Batte ry* trails B population percentile 76 % 0-100 Above avera ge Not Available Not Available 04/24/2024 11:13:20 04/24/20 24 04/24/2024 Cogni tive Asses sment Batte ry* stroop 86 0-200 Impai rment : unlik heavenly Not Available Not Available 04/24/2024 11:13:20 04/24/20 24 04/24/2024 Cogni tive Asses sment Batte ry* stroop population percentile 17 % 0-100 Low avera ge Not Available Not Available 04/24/2024 11:13:20 04/24/20 24 04/24/2024 Cogni tive Asses sment Batte ry* digit symbol substitution 97 0-200 Impai rment : unlik heavenly Not Available Not Available 04/24/2024 11:13:20 04/24/20 24 04/24/2024 Cogni tive Asses sment Batte ry* digit symbol substitution population percentile 42 % 0-100 [place] Not Available Not Available 04/24/2024 11:13:20 04/24/20 24 04/24/2024 Cogni tive Asses sment Batte ry* immediate recognition 103 0-200 Impai rment : unlik heavenly Not Available Not Available 04/24/2024 11:13:20 04/24/20 24 04/24/2024 Cogni tive Asses sment Batte ry* immediate recognition population percentile 57 % 0-100 [place] Not Available Not Available 04/24/2024 11:13:20 04/24/20 24 04/24/2024 Cogni tive Asses sment Batte ry* delayed recognition 108 0-200 Impai rment : unlik heavenly Not Available Not Available 04/24/2024 11:13:20 04/24/20 24 04/24/2024 Cogni tive Asses sment Batte ry* delayed recognition population percentile 71 % 0-100 [place] Not Available Not Available 04/24/2024 11:13:20 11/11/19 24 11/11/2023 CBC W/DIF F WBC 4.9 10'3/ uL 3.5-10 .5 Not Available [facility] (Lab) [address], [place], [address], 11/12/2023 19:49:44 11/11/19 24 11/11/2023 CBC W/DIF F RBC 4.06 10'6/ uL (based on docume nted legal sex) 4.30-5 .80 low Not Available [facility] (Lab) [address], [place], [address], 11/12/2023 19:49:44 11/11/19 24 11/11/2023 CBC W/DIF F HGB 13.2 g/dL (based on docume nted legal sex) 13.0-1 7.5 Not Available [facility] (Lab) [address], [place], [address], 11/12/2023 19:49:44 11/11/19 24 11/11/2023 CBC W/DIF F HCT 39.0 % (based on docume nted legal sex) 38.0-5 0.0 Not Available [facility] (Lab) [address], [place], [address], 11/12/2023 19:49:44 11/11/19 24 11/11/2023 CBC W/DIF F MCV 96.1 fL 80.0-9 9.0 Not Available [facility] (Lab) [address], [place], [address], 11/12/2023 19:49:44 11/11/19 24 11/11/2023 CBC W/DIF F MCH 32.5 pg 27.0-3 4.0 Not Available [facility] (Lab) [address], [place], [address], 11/12/2023 19:49:44 11/11/19 24 11/11/2023 CBC W/DIF F MCHC 33.8 g/dL 32.0-3 5.5 Not Available [facility] (Lab) [address] [place], [address], 11/12/2023 19:49:44 11/11/19 24 11/11/2023 CBC W/DIF F RDW 14.8 % 11.0-1 5.0 Not Available [facility] (Lab) [address] [place], [address], 11/12/2023 19:49:44 11/11/19 24 11/11/2023 CBC W/DIF F plt 258 10'3/ uL 150-40 0 Not Available [facility] (Lab) [address] [facility], [place], [address], 11/12/2023 19:49:44 11/11/19 24 11/11/2023 CBC W/DIF F MPV 12.1 fL 8.8-12 .1 Not Available [facility] (Lab) [address] [facility], [place], [address], 11/12/2023 19:49:44 11/11/19 24 11/11/2023 CBC W/DIF F NRBC's 0.0 % 0.0 Not Available [facility] (Lab) [address] [facility], [place], [address], 11/12/2023 19:49:44 11/11/19 24 11/11/2023 CBC W/DIF F absolute NRBCs 0.0 10'3/ uL no refere nce range establ ished Not Available [facility] (Lab) [address] [facility], [place], [address], 11/12/2023 19:49:44 11/11/19 24 11/11/2023 CBC W/DIF F neutrophils 69.6 % 34.0-7 3.0 Not Available [facility] (Lab) [address] [facility], [place], [address], 11/12/2023 19:49:44 11/11/19 24 11/11/2023 CBC W/DIF F lymphocytes 16.5 % 15.0-5 0.0 Not Available [facility] (Lab) [address] [facility], [place], [address], 11/12/2023 19:49:44 11/11/19 24 11/11/2023 CBC W/DIF F monocytes 11.5 % 1.0-15 .0 Not Available [facility] (Lab) [address] [facility], [place], [address], 11/12/2023 19:49:44 11/11/19 24 11/11/2023 CBC W/DIF F eosinophils 1.6 % 0.0-8. 0 Not Available [facility] (Lab) [address] [facility], [place], [address], 11/12/2023 19:49:44 11/11/19 24 11/11/2023 CBC W/DIF F basophils 0.4 % 0.0-2. 0 Not Available [facility] (Lab) [address] [facility], [place], [address], 11/12/2023 19:49:44 11/11/19 24 11/11/2023 CBC W/DIF F immature granulocytes 0.4 % no define d refere nce range Not Available [facility] (Lab) [address] [facility], [place], [address], 11/12/2023 19:49:44 11/11/19 24 11/11/2023 CBC W/DIF F absolute neutrophils 3.4 10'3/ uL 1.5-8. 0 Not Available [facility] (Lab) [address] [facility], [place], [address], 11/12/2023 19:49:44 11/11/19 24 11/11/2023 CBC W/DIF F absolute lymphocytes 0.8 10'3/ uL 1.0-4. 0 low Not Available [facility] (Lab) [address] [facility], [place], [address], 11/12/2023 19:49:44 11/11/19 24 11/11/2023 CBC W/DIF F absolute monocytes 0.6 10'3/ uL 0.2-1. 0 Not Available [facility] (Lab) [address] [place], [address], 11/12/2023 19:49:44 11/11/19 24 11/11/2023 CBC W/DIF F absolute eosinophils 0.1 10'3/ uL 0.0-0. 6 Not Available [facility] (Lab) [address] [facility], [place], [address], 11/12/2023 19:49:44 11/11/19 24 11/11/2023 CBC W/DIF F absolute basophils 0.0 10'3/ uL 0.0-0. 3 Not Available [facility] (Lab) [address] [facility], [place], [address], 11/12/2023 19:49:44 11/11/19 24 11/11/2023 CBC W/DIF F absolute immature granulocytes 0.0 10'3/ uL 0.00-0 .10 024 6:41 AM: P indic ates parti al resul ts on a panel have been relea sed. Addit ional resul ts will follo w. 024 6:41 AM: This resul t has been final verif ied. No addit ional or love ed resul ts are expec sunil. Not Available [facility] (Lab) [address] [facility], [place], [address], 11/12/2023 19:49:44 11/11/19 24 11/11/2023 URIC ACID uric acid 6.2 mg/dL 4.4-7. 6 Not Available [facility] (Lab) [address] [facility], [place], [address], 11/12/2023 19:49:45 11/11/19 24 11/11/2023 CMP(C OMPRE HENSI VE METAB OLIC PANEL ) sodium 141 mmol/ L 133-14 6 Not Available [facility] (Lab) [address] [facility], [place], [address], 11/12/2023 19:49:45 11/11/19 24 11/11/2023 CMP(C OMPRE HENSI VE METAB OLIC PANEL ) potassium 3.3 mmol/ L 3.5-5. 1 low Not Available [facility] (Lab) [address] [facility], [place], [address], 11/12/2023 19:49:45 11/11/19 24 11/11/2023 CMP(C OMPRE HENSI VE METAB OLIC PANEL ) chloride 100 mmol/ L 98-107 Not Available [facility] (Lab) [address] [facility], [place], [address], 11/12/2023 19:49:45 11/11/19 24 11/11/2023 CMP(C OMPRE HENSI VE METAB OLIC PANEL ) carbon dioxide 29 mmol/ L 21-31 Not Available [facility] (Lab) [address] [facility], [place], [address], 11/12/2023 19:49:45 11/11/19 24 11/11/2023 CMP(C OMPRE HENSI VE METAB OLIC PANEL ) anion gap 12 mmol/ L 4-13 Not Available [facility] (Lab) [address] [facility], [place], [address], 11/12/2023 19:49:45 11/11/19 24 11/11/2023 CMP(C OMPRE HENSI VE METAB OLIC PANEL ) blood urea nitrogen 25 mg/dL 7-25 Not Available [facility] (Lab) [address] [facility], [place], [address], 11/12/2023 19:49:45 11/11/19 24 11/11/2023 CMP(C OMPRE HENSI VE METAB OLIC PANEL ) creatinine 1.01 mg/dL 0.60-1 .30 Not Available [facility] (Lab) [address] [facility], [place], [address], 11/12/2023 19:49:45 11/11/19 24 11/11/2023 CMP(C OMPRE HENSI VE METAB OLIC PANEL ) egfrcr (CKD-epi 2020) 78 mL/mi n/1.7 3_m2 >=60 Not Available [facility] (Lab) [address] [facility], [place], [address], 11/12/2023 19:49:45 11/11/19 24 11/11/2023 CMP(C OMPRE HENSI VE METAB OLIC PANEL ) calcium 9.1 mg/dL 8.3-10 .5 Not Available [facility] (Lab) [address] [facility], [place], [address], 11/12/2023 19:49:45 11/11/19 24 11/11/2023 CMP(C OMPRE HENSI VE METAB OLIC PANEL ) glucose 103 mg/dL 70-100 high Not Available [facility] (Lab) [address] [facility], [place], [address], 11/12/2023 19:49:45 11/11/19 24 11/11/2023 CMP(C OMPRE HENSI VE METAB OLIC PANEL ) protein, total 6.4 g/dL 6.4-8. 3 Not Available [facility] (Lab) [address] [facility], [place], [address], 11/12/2023 19:49:45 11/11/19 24 11/11/2023 CMP(C OMPRE HENSI VE METAB OLIC PANEL ) albumin 4.4 g/dL 3.5-5. 0 Not Available [facility] (Lab) [address] [facility], [place], [address], 11/12/2023 19:49:45 11/11/19 24 11/11/2023 CMP(C OMPRE HENSI VE METAB OLIC PANEL ) ALT 151 units /L 11-51 high Not Available [facility] (Lab) [address] [facility], [place], [address], 11/12/2023 19:49:45 11/11/19 24 11/11/2023 CMP(C OMPRE HENSI VE METAB OLIC PANEL ) alkaline phosphatase 452 units /L 34-104 high Not Available [facility] (Lab) [address] [place], [address], 11/12/2023 19:49:45 11/11/19 24 11/11/2023 CMP(C OMPRE HENSI VE METAB OLIC PANEL ) AST 105 units /L 13-39 high Not Available [facility] (Lab) [address] [place], [address], 11/12/2023 19:49:45 11/11/19 24 11/11/2023 CMP(C OMPRE HENSI VE METAB OLIC PANEL ) bilirubin, total 12.7 mg/dL 0.2-1. 2 high Not Available [facility] (Lab) [address] [place], [address], 11/12/2023 19:49:45 11/11/19 24 11/11/2023 BILIR UBIN, TOTAL AND DIREC T WITH INDIR ECT CALC. bilirubin, total 12.7 mg/dL 0.2-1. 2 high Not Available [facility] (Lab) [address] [place], [address], 11/12/2023 19:49:46 11/11/19 24 11/11/2023 BILIR UBIN, TOTAL AND DIREC T WITH INDIR ECT CALC. direct bilirubin 7.4 mg/dL 0.0-0. 2 high Not Available [facility] (Lab) [address] [place], [address], 11/12/2023 19:49:46 11/11/19 24 11/11/2023 BILIR UBIN, TOTAL AND DIREC T WITH INDIR ECT CALC. bilirubin, indirect 5.3 mg/dL Not Available [facility] (Lab) [address] [place], [address], 11/12/2023 19:49:46 11/11/19 24 11/11/2023 HEPAT ITIS PANEL ACUTE (AMA) hepatitis B surface antigen Non-re active non-re active This assay was perfo rmed using [employer] n reage nts and test kits. Value s obtai morris with other assay metho ds or kits canno t be used inter love eably . Not Available [facility] (Lab) [address], [place], [address], 11/12/2023 19:49:46 11/11/19 24 11/11/2023 HEPAT ITIS PANEL ACUTE (AMA) hepatitis C antibody Non-re active non-re active Antib odies to HCV Not Detec sunil, does not exclu de the possi bilit y of expos ure to HCV. Not Available [facility] (Lab) [address], [place], [address], 11/12/2023 19:49:46 11/11/19 24 11/11/2023 HEPAT ITIS PANEL ACUTE (AMA) hepatitis B core IgM antibody Non-re active non-re active IgM anti- HBc not detec sunil. Does not exclu de the possi bilit y of expos ure to or infec tion with HBV. Not Available [facility] (Lab) [address], [place], [address], 11/12/2023 19:49:46 11/11/19 24 11/11/2023 HEPAT ITIS PANEL ACUTE (AMA) hepatitis A IgM antibody Non-re active non-re active IgM anti- HAV not detec sunil. Does not exclu de the possi bilit y of expos ure to or infec tion with HAV. Level s of IgM anti- HAV may be below the cut-o ff in early infec tion. Not Available [facility] (Lab) [address], [place], [address], 11/12/2023 19:49:46 11/11/19 24 11/11/2023 URINA LYSIS , WITH MICRO SCOPI C, REFLE X MICRO ALBUM IN color, urine Dark Yellow abnormal Not Available [facility] (Lab) [address], [place], [address], 11/12/2023 19:49:47 11/11/19 24 11/11/2023 URINA LYSIS , WITH MICRO SCOPI C, REFLE X MICRO ALBUM IN appearance, urine Turbid abnormal Not Available [facility] (Lab) [address] [facility], [place], [address], 11/12/2023 19:49:47 11/11/19 24 11/11/2023 URINA LYSIS , WITH MICRO SCOPI C, REFLE X MICRO ALBUM IN specific gravity, urine 1.027 . 1.005- 1.030 Not Available [facility] (Lab) [address] [facility], [place], [address], 11/12/2023 19:49:47 11/11/19 24 11/11/2023 URINA LYSIS , WITH MICRO SCOPI C, REFLE X MICRO ALBUM IN pH, urine 6.0 . 5.0-7. 0 Not Available [facility] (Lab) [address] [facility], [place], [address], 11/12/2023 19:49:47 11/11/19 24 11/11/2023 URINA LYSIS , WITH MICRO SCOPI C, REFLE X MICRO ALBUM IN protein, UA 20 mg/dL negati ve, 10 , 20 Not Available [facility] (Lab) [address] [facility], [place], [address], 11/12/2023 19:49:47 11/11/19 24 11/11/2023 URINA LYSIS , WITH MICRO SCOPI C, REFLE X MICRO ALBUM IN glucose, urine Normal mg/dL normal Not Available [facility] (Lab) [address] [facility], [place], [address], 11/12/2023 19:49:47 11/11/19 24 11/11/2023 URINA LYSIS , WITH MICRO SCOPI C, REFLE X MICRO ALBUM IN ketones, urine Negati ve mg/dL negati ve Not Available [facility] (Lab) [address] [facility], [place], [address], 11/12/2023 19:49:47 11/11/19 24 11/11/2023 URINA LYSIS , WITH MICRO SCOPI C, REFLE X MICRO ALBUM IN bilirubin, urine 2+ negati ve abnormal Not Available [facility] (Lab) [address] [facility], [place], [address], 11/12/2023 19:49:47 11/11/19 24 11/11/2023 URINA LYSIS , WITH MICRO SCOPI C, REFLE X MICRO ALBUM IN blood, urine Negati ve negati ve Not Available [facility] (Lab) [address] [facility], [place], [address], 11/12/2023 19:49:47 11/11/19 24 11/11/2023 URINA LYSIS , WITH MICRO SCOPI C, REFLE X MICRO ALBUM IN nitrite, urine Negati ve negati ve Not Available [facility] (Lab) [address] [facility], [place], [address], 11/12/2023 19:49:47 11/11/19 24 11/11/2023 URINA LYSIS , WITH MICRO SCOPI C, REFLE X MICRO ALBUM IN leukocyte esterase, urine Negati ve emerson/u L negati ve Not Available [facility] (Lab) [address] [facility], [place], [address], 11/12/2023 19:49:47 11/11/19 24 11/11/2023 URINA LYSIS , WITH MICRO SCOPI C, REFLE X MICRO ALBUM IN urobilinogen , urine 2.0 mg/dL normal abnormal Not Available [facility] (Lab) [address] [place], [address], 11/12/2023 19:49:47 11/11/19 24 11/11/2023 URINA LYSIS , WITH MICRO SCOPI C, REFLE X MICRO ALBUM IN RBC, urine 0-2 /hpf 0-2 Not Available [facility] (Lab) [address] [facility], [place], [address], 11/12/2023 19:49:47 11/11/19 24 11/11/2023 URINA LYSIS , WITH MICRO SCOPI C, REFLE X MICRO ALBUM IN WBC, urine 0-5 /hpf 0-5 Not Available [facility] (Lab) [address] [facility], [place], [address], 11/12/2023 19:49:47 11/11/19 24 11/11/2023 URINA LYSIS , WITH MICRO SCOPI C, REFLE X MICRO ALBUM IN bacteria, urine None /hpf Not Available [facility] (Lab) [address] [facility], [place], [address], 11/12/2023 19:49:47 11/11/19 24 11/11/2023 URINA LYSIS , WITH MICRO SCOPI C, REFLE X MICRO ALBUM IN squamous epithelial cells, urine 0-5 /hpf Not Available [facility] (Lab) [address] [facility], [place], [address], 11/12/2023 19:49:47 11/11/19 24 11/11/2023 URINA LYSIS , WITH MICRO SCOPI C, REFLE X MICRO ALBUM IN amorphous crystal, urine Presen t /hpf none abnormal Micro album in to follo w. Not Available [facility] (Lab) [address] [facility], [place], [address], 11/12/2023 19:49:47 11/11/19 24 11/11/2023 MICRO ALBUM IN W/CRE ATINI NE RATIO , RANDO M URINE microalbumin , urine 1.3 mg/dL 0.0-1. 8 Not Available [facility] (Lab) [address] [facility], [place], [address], 11/12/2023 19:49:48 11/11/19 24 11/11/2023 MICRO ALBUM IN W/CRE ATINI NE RATIO , RANDO M URINE creatinine, urine 127.8 mg/dL R-No refer ence range estab lishe d for this assay Not Available [facility] (Lab) [address] [facility], [place], [address], 11/12/2023 19:49:48 11/11/19 24 11/11/2023 MICRO ALBUM IN W/CRE ATINI NE RATIO , RANDO M URINE microalbumin /creatinine ratio 10 mg/g 0-29 Not Available [facility] (Lab) [address] [facility], [place], [address], 11/12/2023 19:49:48 04/24/20 24 04/24/2024 PSA TOTAL (DIAG NOSTI C) PSA, total 2.07 NG/mL 0.00-4 .00 This assay was perfo rmed using [employer] Coul[employer] er reage nts and test kits. Value s obtai morris with other assay metho ds or kits canno t be used inter love eably . Not Available [facility] (Lab) [address] [facility], [place], [address], 04/25/2024 09:32:51 04/24/20 24 04/24/2024 APOLI POPRO TEIN B apolipoprote in B 120 mg/dL <90 high Risk: Optim al <90 mg/dL ; Moder ate 90-11 9 mg/dL ; High >= 120 mg/dL ; Cardi ovasc ular event risk categ ory cut point s (opti mal, moder ate, high) are based on [facility] n[facility] Lipid Ass[employer] iatio n recom koa sylvie - Leonel HEWITT et al. J of Clin Lipid . 2015; 9: 129-1 69 and Jaspal LAIRD et al. Endoc r Pract . 2017; 23(Diaz ppl 2):1- 87. Not Available [facility] - Manual Order Only [address], [place], [address], 05/03/2024 06:22:22 04/24/20 24 04/24/2024 HSCRP hs-CRP 3.5 mg/L <1.0 high Refer ence Range : Optim al <1.0 mg/L, accor ding to Jaspal LAIRD et al. Endoc r Pract .2017 ;23(S uppl 2):1- 87. The AHA/C DC Guide lines recom mend hs-CR P range s for ident ifyin g Relat ceci Cardi ovasc ular Risk in patie nts ages >17 years : <1.0 mg/L Lower Relat ceci Cardi ovasc ular Risk; 1.0-3 .0 mg/L Benton ge Relat ceci Cardi ovasc ular Risk; 3.1-1 0.0 mg/L Highe r Relat ceci Cardi ovasc ular Risk. If resul t is betwe en 3.1 and 10.0 mg/L, consi janny retes ting in 1-2 weeks to exclu de a benig n trans ient eleva tion secon camille to infec tion or infla mmati on from the basel ine CRP value . Persi stent eleva tions of >10.0 mg/L upon retes ting may be assoc iated with infec tion and infla mmati on. The AHA/C DC recom menda tions are based on Pears on TA, Mensa h [place], Sravani conorr RW, et al. [place] rs of infla mmati on and cardi ovasc ular disea se: appli catio n to clini denae and publi c healt h pract ice: A state ment for healt hcare sirena myrick from the [facility] rs for Disea se Contr ol and Preve ntion and the Ameri can Heart Assoc iatio n. Circu latio n 2003; 107(3 ): 499-5 11. Not Available [facility] - Manual Order Only [address], [place], [address], 05/03/2024 06:22:23 04/24/20 24 04/24/2024 LIPID PANEL cholesterol, total 238 mg/dL <200 high Not Available [facility] - Manual Order Only [address], [place], [address], 05/03/2024 06:22:24 04/24/20 24 04/24/2024 LIPID PANEL HDL cholesterol 67 mg/dL >39 Not Available [facility] - Manual Order Only [address], [place], [address], 05/03/2024 06:22:24 04/24/20 24 04/24/2024 LIPID PANEL triglyceride s 227 mg/dL <150 high If a non-f astin g speci men was colle cted, consi janny repea t trigl yceri de testi ng on a fasti ng speci men if clini kai indic ated. Leonel dias et al. J of Clin. Lipid ol. 2015; 9:129 -169. Not Available [facility] - Manual Order Only [address], [place], [address], 05/03/2024 06:22:24 04/24/20 24 04/24/2024 LIPID PANEL LDL cholesterol 134 mg/dL _(denae c) <100 high Anne able range <100 mg/dL for prima ry preve ntion ; <70 mg/dL for patie nts with CHD or diabe tic patie nts with >= 2 CHD risk facto rs. LDL-C is now calcu lated using the Lula n-Hop kins calcu enrico n, which is a valid ated novel metho d provi ding lg r accur acy than the Fried laurence equat ion in the estim ation of LDL-C . Lula murphy SS et al. DEBBIE. 2013; 310(1 9): 2061- 2068 (http ://ed ucati on.[employer] aprilEpoxy. com/f aq/FA Q164) Not Available [facility] - Manual Order Only [address], [place], [address], 05/03/2024 06:22:24 04/24/20 24 04/24/2024 LIPID PANEL chol/HDL-C 3.6 calc <5.0 Not Available [facility] - Manual Order Only [address], [place], [address], 05/03/2024 06:22:24 04/24/20 24 04/24/2024 LIPID PANEL non-HDL cholesterol 171 mg/dL _(denae c) <130 high For patie nts with diabe sofia plus 1 major ASCVD risk facto r, treat ing to a non-H DL-C goal of <100 mg/dL (LDL- C of <70 mg/dL ) is consi aarond a marianaa pecalii vinicius optio n. Not Available [facility] - Manual Order Only [address], [place], [address], 05/03/2024 06:22:24 04/24/20 24 04/24/2024 CBC WITH DIFFE RENTI AL WBC 7.5 K/uL 3.8-10 .8 Not Available [facility] - Manual Order Only [address], [place], [address], 05/03/2024 06:22:24 04/24/20 24 04/24/2024 CBC WITH DIFFE RENTI AL RBC 3.92 M/uL 4.20-5 .80 low Not Available [facility] - Manual Order Only [address], [place], [address], 05/03/2024 06:22:24 04/24/20 24 04/24/2024 CBC WITH DIFFE RENTI AL hemoglobin 12.8 g/dL 13.2-1 7.1 low Not Available [facility] - Manual Order Only [address], [place], [address], 05/03/2024 06:22:24 04/24/20 24 04/24/2024 CBC WITH DIFFE RENTI AL hematocrit 40.4 % 38.5-5 0.0 Not Available [facility] - Manual Order Only [address], [place], [address], 05/03/2024 06:22:24 04/24/20 24 04/24/2024 CBC WITH DIFFE RENTI AL MCV 103.1 fL 80.0-1 00.0 high Not Available [facility] - Manual Order Only [address], [place], [address], 05/03/2024 06:22:24 04/24/20 24 04/24/2024 CBC WITH DIFFE RENTI AL MCH 32.7 pg 27.0-3 3.0 Not Available [facility] - Manual Order Only [address], [place], [address], 05/03/2024 06:22:24 04/24/20 24 04/24/2024 CBC WITH DIFFE RENTI AL MCHC 31.7 g/dL 32.0-3 6.0 low For adult s, a sligh t decre ase in the calcu lated MCHC value (in the range of 30 to 32 g/dL) is most likel y not clini kai signi fican t; howev er, it shoul d be inter prete d with cauti on in corre latio n with other red cell max eters and the patie nt's clini denae condi tion. Not Available [facility] - Manual Order Only [address], [place], [address], 05/03/2024 06:22:24 04/24/20 24 04/24/2024 CBC WITH DIFFE RENTI AL red cell distribution width 16.8 % 11.0-1 5.0 high Not Available [facility] - Manual Order Only [address], [place], [address], 05/03/2024 06:22:24 04/24/20 24 04/24/2024 CBC WITH DIFFE RENTI AL platelet count 299 K/uL 140-40 0 Not Available [facility] - Manual Order Only [address], [place], [address], 05/03/2024 06:22:24 04/24/20 24 04/24/2024 CBC WITH DIFFE RENTI AL mean platelet volume 10.7 fL 7.5-12 .5 Not Available [facility] - Manual Order Only [address], [place], [address], 05/03/2024 06:22:24 04/24/20 24 04/24/2024 CBC WITH DIFFE RENTI AL neutrophil % 73.5 % 38.0-8 0.0 Not Available [facility] - Manual Order Only [address], [place], [address], 05/03/2024 06:22:24 04/24/20 24 04/24/2024 CBC WITH DIFFE RENTI AL neutrophil absolute 5.54 K/uL 1.50-7 .80 Not Available [facility] - Manual Order Only [address], [place], [address], 05/03/2024 06:22:24 04/24/20 24 04/24/2024 CBC WITH DIFFE RENTI AL lymphocyte % 9.7 % 15.0-4 9.0 low Not Available [facility] - Manual Order Only [address], [place], [address], 05/03/2024 06:22:24 04/24/20 24 04/24/2024 CBC WITH DIFFE RENTI AL lymphocyte absolute 0.73 K/uL 0.85-3 .90 low Not Available [facility] - Manual Order Only [address], [place], [address], 05/03/2024 06:22:24 04/24/20 24 04/24/2024 CBC WITH DIFFE RENTI AL monocyte % 13.7 % 0.0-13 .0 high Not Available [facility] - Manual Order Only [address], [place], [address], 05/03/2024 06:22:24 04/24/20 24 04/24/2024 CBC WITH DIFFE RENTI AL monocyte absolute 1.03 K/uL 0.20-0 .95 high Not Available [facility] - Manual Order Only [address], [place], [address], 05/03/2024 06:22:24 04/24/20 24 04/24/2024 CBC WITH DIFFE RENTI AL eosinophil % 2.3 % 0.0-8. 0 Not Available [facility] - Manual Order Only [address], [place], [address], 05/03/2024 06:22:24 04/24/20 24 04/24/2024 CBC WITH DIFFE RENTI AL eosinophil absolute 0.17 K/uL 0.00-0 .50 Not Available [facility] - Manual Order Only [address], [place], [address], 05/03/2024 06:22:24 04/24/20 24 04/24/2024 CBC WITH DIFFE RENTI AL basophil % 0.8 % 0.0-2. 0 Not Available [facility] - Manual Order Only [address], [place], [address], 05/03/2024 06:22:24 04/24/20 24 04/24/2024 CBC WITH DIFFE RENTI AL basophil absolute 0.06 K/uL 0.00-0 .20 Not Available [facility] - Manual Order Only [address], [place], [address], 05/03/2024 06:22:24 04/24/20 24 04/24/2024 COMPR EHENS CECI METAB OLIC PANEL glucose 101 mg/dL 65-99 high For someo ne witho ut known diabe sofia, a fasti ng gluco se value betwe en 100 and 125 mg/dL is consi stent with predi abete s and shoul d be confi rmed with a follo w-up test. Not Available [facility] - Manual Order Only [address], [place], [address], 05/03/2024 06:22:25 04/24/20 24 04/24/2024 COMPR EHENS CECI METAB OLIC PANEL calcium 10.0 mg/dL 8.5-10 .5 Not Available [facility] - Manual Order Only [address], [place], [address], 05/03/2024 06:22:25 04/24/20 24 04/24/2024 COMPR EHENS CECI METAB OLIC PANEL sodium 135 mmol/ L 136-14 5 low Not Available [facility] - Manual Order Only [address], [place], [address], 05/03/2024 06:22:25 04/24/20 24 04/24/2024 COMPR EHENS CECI METAB OLIC PANEL potassium 4.4 mmol/ L 3.5-5. 1 Not Available [facility] - Manual Order Only [address], [place], [address], 05/03/2024 06:22:25 04/24/20 24 04/24/2024 COMPR EHENS CECI METAB OLIC PANEL chloride 96 mmol/ L 95-108 Not Available [facility] - Manual Order Only [address], [place], [address], 05/03/2024 06:22:25 04/24/20 24 04/24/2024 COMPR EHENS CECI METAB OLIC PANEL CO2 (carbon dioxide) 21 mmol/ L 21-33 Not Available [facility] - Manual Order Only [address], [place], [address], 05/03/2024 06:22:25 04/24/20 24 04/24/2024 COMPR EHENS CECI METAB OLIC PANEL BUN (blood urea nitrogen) 26 mg/dL 8-23 high Not Available [facility] - Manual Order Only [address], [place], [address], 05/03/2024 06:22:25 04/24/20 24 04/24/2024 COMPR EHENS CECI METAB OLIC PANEL creatinine 0.95 mg/dL 0.70-1 .28 Not Available [facility] - Manual Order Only [address], [place], [address], 05/03/2024 06:22:25 04/24/20 24 04/24/2024 COMPR EHENS CECI METAB OLIC PANEL protein, total 6.9 g/dL 6.1-8. 0 Not Available [facility] - Manual Order Only [address], [place], [address], 05/03/2024 06:22:25 04/24/20 24 04/24/2024 COMPR EHENS CECI METAB OLIC PANEL albumin 4.6 g/dL 3.5-5. 5 Not Available [facility] - Manual Order Only [address], [place], [address], 05/03/2024 06:22:25 04/24/20 24 04/24/2024 COMPR EHENS CECI METAB OLIC PANEL globulin 2.3 g/dL_ (calc ) 1.8-3. 8 Not Available [facility] - Manual Order Only [address], [place], [address], 05/03/2024 06:22:25 04/24/20 24 04/24/2024 COMPR EHENS CECI METAB OLIC PANEL albumin/glob ulin ratio 2.0 calc 1.0-2. 5 Not Available [facility] - Manual Order Only [address], [place], [address], 05/03/2024 06:22:25 04/24/20 24 04/24/2024 COMPR EHENS CECI METAB OLIC PANEL alkaline phosphatase 99 U/L <150 Not Available [facility] - Manual Order Only [address], [place], [address], 05/03/2024 06:22:25 04/24/20 24 04/24/2024 COMPR EHENS CECI METAB OLIC PANEL alanine aminotransfe rase (ALT) 23 U/L 9-46 Not Available [facility] - Manual Order Only [address], [place], [address], 05/03/2024 06:22:25 04/24/20 24 04/24/2024 COMPR EHENS CECI METAB OLIC PANEL aspartate aminotransfe rase (AST) 28 U/L 10-35 Not Available [facility] - Manual Order Only [address], [place], [address], 05/03/2024 06:22:25 04/24/20 24 04/24/2024 COMPR EHENS CECI METAB OLIC PANEL bilirubin, total 0.3 mg/dL <1.3 Not Available [facility] - Manual Order Only [address], [place], [address], 05/03/2024 06:22:25 04/24/20 24 04/24/2024 COMPR EHENS CECI METAB OLIC PANEL BUN/creatini ne ratio 27 calc 6-22 high Not Available [facility] - Manual Order Only [address], [place], [address], 05/03/2024 06:22:25 04/24/20 24 04/24/2024 COMPR EHENS CECI METAB OLIC PANEL eGFR 84 mL/mi n/1.7 3m_sq uared >59 The eGFR is based on the CKD-E PI 2020 equat ion. To calcu late the new eGFR from a previ ous Creat inine or Cysta tin C resul t, go to https :[email or web address] pate.o rg/pr ofess ional s/kdo qi/gf r%5Fc alcul ator. Not Available [facility] - Manual Order Only [address], [place], [address], 05/03/2024 06:22:25 04/24/20 24 04/24/2024 TESTO STERO NE, TOTAL (IA, ADULT MALES ) testosterone 199 NG/dL 193-74 0 Not Available [facility] - Manual Order Only [address], [place], [address], 05/03/2024 06:22:25 04/24/20 24 04/24/2024 THYRO ID STIMU LATIN G HORMO NE (TSH) thyroid stimulating hormone (TSH) 0.35 mlu/L 0.40-4 .50 low Not Available [facility] - Manual Order Only [address], [place], [address], 05/03/2024 06:22:25 04/24/20 24 04/24/2024 URIC ACID uric acid 6.9 mg/dL 3.2-8. 6 Not Available [facility] - Manual Order Only [address], [place], [address], 05/03/2024 06:22:26 04/24/20 24 04/24/2024 HEMOG LOBIN A1C HbA1C 6.6 % <5.7 high For someo ne witho ut known diabe sofia, a hemog lobin A1c value of 6.5% or great er indic ates that they may have diabe sofia, and this shoul d be confi rmed with a follo w-up test. For someo ne with known diabe sofia, a value <7% indic ates that their diabe sofia is well contr olled and a value great er than or equal to 7% indic ates subop timal contr ol. A1c targe ts shoul d be indiv idual ized based on durat ion of diabe sofia, age, comor bid condi tions , and other consi derat ions. Curre ntly, no conse nsus exist s for use of hemog lobin A1c for diagn osis of diabe sofia for child james. This test was perfo rmed on the Dereck ruma c503 platf orm. Effec tive 024, a kate e in test platf orms from the [employer] t[employer] to the Dereck ruma c503 may have shift ed HbA1c resul ts ricardo red to histo rical resul ts. Based on labor atory valid ation testi ng condu cted at [facility] , the [facility] platf orm relat ceci to the [employer] platf orm had an avera ge incre ase in HbA1c value of <=0.3 %. This diffe rence is withi n accep sunil varia bilit y estab lishe d by the [employer] hemog lobin Stand natacha atsue Progr am. Note that not all indiv idual s will have had a shift in their resul ts and direc t ricardo rison s betwe en histo rical and curre nt resul ts for testi ng condu cted on diffe rent platf orms is not recom marimar d. Not Available [facility] - Manual Order Only [address], [place], [address], 05/03/2024 06:22:26 04/24/20 24 04/24/2024 HEMOG LOBIN A1C estimated average glucose 142 mg/dL <117 high Not Available [facility] - Manual Order Only [address], [place], [address], 05/03/2024 06:22:26 04/24/20 24 04/24/2024 MYELO PEROX IDASE myeloperoxid ase 304 pmol/ L <470 Based on a high risk sub-p opula tion (N=92 0) defin ed as ambul atory stabl e patie nts witho ut acute coron grace syndr ome who under went elect ceci diagn ostic coron grace angio graph y (1) and a refer ence range study of appar ently healt hy donor s, we have defin ed the follo wing cut-o ffs for MPO: A cut-o ff of <470 pmol/ L defin es an 'appa rentl y healt hy' popul ation at optim al relat ceci risk for a cardi ovasc ular event , 470-5 39 pmol/ L defin es a popul ation at moder ate relat ceci risk for a cardi ovasc ular event (2-fo ld incre ased risk of MACE at 3 years ), and > = 540 pmol/ L defin es a popul ation with a high relat ceci risk for a cardi ovasc ular event . (Refe rence : 1. Tez et al. Am J Cardi ol. 2013; 111:4 65-47 0 and perso nal commu nicat ion with Tez et al). This test was devel oped and its devonte tical perfo rmanc e timothy cteri stics have been deter mined by [facility] [place] [facility]. It has not been clear ed or appro tamy by the U.S. Food and Drug Admin istra tion. This assay has been valid ated pursu ant to the CLIA regul ation s and is used for clini denae purpo ses. Not Available [facility] - Manual Order Only [address], [place], [address], 05/03/2024 06:22:27 04/24/20 24 04/24/2024 VITAM IN D 25 HYDRO XY LC-MS /MS vitamin D 25 hydroxy by lc-MS/MS 33.5 NG/mL >29.9 Vitam in D, 25-Hy droxy repor ts kaye ntrat ions of two commo n forms , 25-OH D2 and 25-OH D3. 25-OH D3 indic ates both endog enous produ ction and suppl ement ation . 25-OH D2 is an indic ator of exoge nous sourc es, such as diet or suppl ement ation . Thera py is based on measu remen t of Total 25-OH D, with level s <20 ng/mL indic ative of Vitam in D defic iency , while level s betwe en 20 ng/mL and 30 ng/mL sugge st insuf ficie ncy. Optim al level s are >=30 ng/mL . For addit ional infor brittany mo refer to http: //edu cattheron murphy.que stdia gnost ics.c om/fa q/FAQ 199(T his link is being provi ded for infor tim murphy/edu catio nal purpo ses only. )This test was devel oped and its devonte tical perfo rmanc e timothy cteri stics have been deter mined by [facility] [place] [facility]. It has not been clear ed or appro tamy by the U.S. Food and Drug Admin istra tion. This assay has been valid ated pursu ant to the CLIA regul ation s and is used for clini denae purpo ses. Not Available [facility] - Manual Order Only [address], [place], [address], 05/03/2024 06:22:27 04/24/20 24 04/24/2024 urina lysis , dipst ick Leukocytes negati ve Not Available Main [facility] [address] [facility] [address], [place], [address], 04/21/2024 16:49:27 04/24/20 24 04/24/2024 urina lysis , dipst ick Nitrite negati ve Not Available Main Office [address] [facility] [address], [place], [address], 04/21/2024 16:49:27 04/24/20 24 04/24/2024 urina lysis , dipst ick Urobilinogen 0.2 EU/dL Not Available Main Office [address] [facility] [address], [place], [address], 04/21/2024 16:49:27 04/24/20 24 04/24/2024 urina lysis , dipst ick Protein negati ve Not Available Main Office [address] [facility] [address], [place], [address], 04/21/2024 16:49:27 04/24/20 24 04/24/2024 urina lysis , dipst ick pH 6.0 Not Available Main Offic e [address] [facility] [address], [place], [address], 04/21/2024 16:49:27 04/24/20 24 04/24/2024 urina lysis , dipst ick Blood negati ve Not Available Main Office [address] [facility] [address], [place], [address], 04/21/2024 16:49:27 04/24/20 24 04/24/2024 urina lysis , dipst ick Specific [place] 1.020 Not Available Main O ffice [address] [facility] [address], [place], [address], 04/21/2024 16:49:27 04/24/20 24 04/24/2024 urina lysis , dipst ick Ketone negati ve Not Available Main Office [address] [facility] [address], [place], [address], 04/21/2024 16:49:27 04/24/20 24 04/24/2024 urina lysis , dipst ick Bilirubin negati ve Not Available Main Office [address] [facility] [address], [place], [address], 04/21/2024 16:49:27 04/24/20 24 04/24/2024 urina lysis , dipst ick Glucose negati ve Not Available Main Office [address] [facility] [address], [place], [address], 04/21/2024 16:49:27 04/24/20 24 04/24/2024 urina lysis , dipst ick Appearance clear Not Available Main Of fice [address] [facility] [address], [place], [address], 04/21/2024 16:49:27 04/24/20 24 04/24/2024 urina lysis , dipst ick Color yellow Not Available Main Offic e [address] [facility] [address], [place], [address], 04/21/2024 16:49:27 04/24/20 24 04/24/2024 it software developer test* Unknown Analyte 57.3 Not Available Main O ffice [address] [facility] [address], [place], [address], 04/21/2024 16:49:27 04/24/20 24 04/24/2024 it software developer test* Unknown Analyte 61.5 Not Available Main O ffice [address] [facility] [address], [place], [address], 04/21/2024 16:49:27 04/24/20 24 04/24/2024 it software developer test* Unknown Analyte 49.8 Not Available Main O ffice [address] [address], [place], [address], 04/21/2024 16:49:27 04/24/20 24 04/24/2024 it software developer test* Unknown Analyte 54.0 Not Available Main O ffice [address] [address], [place], [address], 04/21/2024 16:49:27 04/24/20 24 04/24/2024 it software developer test* Unknown Analyte 48.2 Not Available Main O ffice [address] [address], [place], [address], 04/21/2024 16:49:27 04/24/20 24 04/24/2024 gait test (PROC ) Time taken to walk 4m 4.57 Not Available Main Office [address] [address], [place], [address], 04/21/2024 16:49:27 04/24/20 24 04/24/2024 gait test (PROC ) Gait speed in meters p/s 0.88 Not Available Main O ffice [address] [address], [place], [address], 04/21/2024 16:49:27 04/24/20 24 04/24/2024 body compo sitio n devonte sis (PROC ) Status if Not Performed Patien t unable to comple te Not Available Main Office [address] [address], [place], [address], 04/21/2024 16:49:26 04/24/20 24 04/24/2024 epwor th sleep iness scale * Total Score 11 Not Available Main O ffice [address] [address], [place], [address], 04/21/2024 16:49:26 04/24/20 24 04/24/2024 epwor th sleep iness scale * Indication normal Not Available Main Of fice [address] [facility] [address], [place], [address], 04/21/2024 16:49:26 04/24/20 24 04/24/2024 albarran anxie ty inven tory* Total Score 5 Not Available Main O ffice [address] [facility] [address], [place], [address], 04/21/2024 16:49:26 04/24/20 24 04/24/2024 albarran anxie ty inven tory* Indication Minima l anxiet y Not Available Main Office [address] [facility] [address], [place], [address], 04/21/2024 16:49:26 04/24/20 24 04/24/2024 (RENAN) ankle brach ial index * Arm- Right 142 Not Available Main Of fice [address] [facility] [address], [place], [address], 04/21/2024 16:49:25 04/24/20 24 04/24/2024 (RENAN) ankle brach ial index * Arm- Left 146 Not Available Main Off ice [address] [facility] [address], [place], [address], 04/21/2024 16:49:25 04/24/20 24 04/24/2024 (RENAN) ankle brach ial index * Leg- Right 186 Not Available Main Of fice [address] [facility] [address], [place], [address], 04/21/2024 16:49:25 04/24/20 24 04/24/2024 (RENAN) ankle brach ial index * Leg- Left 190 Not Available Main Off ice [address] [facility] [address], [place], [address], 04/21/2024 16:49:25 04/24/20 24 04/24/2024 (RENAN) ankle brach ial index * RENAN Pressure- Right 1.27 Not Available Main O ffice [address] [facility] [address], [place], [address], 04/21/2024 16:49:25 04/24/20 24 04/24/2024 (RENAN) ankle brach ial index * RENAN Pressure- Left 1.30 Not Available Main O ffice [address] [facility] [address], [place], [address], 04/21/2024 16:49:25 04/24/20 24 04/24/2024 visua l acuit y* Color 01/12 Not Available Main Offic e [address] [facility] [address], [place], [address], 04/21/2024 16:49:25 04/24/20 24 04/24/2024 visua l acuit y* Status if not performed patien t satisf ied w/ anothe r provid er Not Available Main Office [address] [facility] [address], [place], [address], 04/21/2024 16:49:25 04/24/20 24 04/24/2024 darcie metry testi ng* Spirometry normal Not Available Main Of fice [address] [facility] [address], [place], [address], 04/21/2024 16:49:25 04/21/20 24 04/27/2024 elect lynette davisgr am No observ ation record ed. Main Office [address] [facility] [address], [place], [address], 05/04/2024 12:40:01 04/21/20 24 04/24/2024 audio gram No observ ation record ed. Main Office [address] [facility] [address], [place], [address], 04/27/2024 14:15:13 04/24/20 24 elect lynette cole am No observ ation record ed. [email or web address] Main Office [address], [place], [address], 04/26/2024 09:52:57 04/24/20 24 darcie metry testi ng* No observ ation record ed. Main Office [address] [facility] [address], [place], [address], 04/26/2024 09:52:57 Result Notes None recorded. Problems Name Problem SNOMED Code Status Onset Date Resolution Date Notes Provider Name and Address Organization Details Recorded Time Fatigue 22254253 Completed 201803/09/2021 GLORIA henao Mark 1 15:17:56 Advance care planning Active 2020 Gilberto Martinez MD, FACP [address], [place], [address], Gilberto Dumont 1 12:00:25 Sinus bradycard ia 60939563 Active 2021 Gilberto Martinez MD, FACP [address], [place], [address], Gilberto Dumont 2 12:39:15 Lighthead edness 332860151 Active 2021 Gilberto Martinez MD, FACP [address], [place], [address], Gilberto Dumont 2 13:57:58 Aortic valve regurgita tion 05422396 Active Gilberto Martinez MD, FACP [address], [place], [address], Gilberto Dumont 2 12:54:31 History of gout 103164130 Active Gilberto Martinez MD, FACP [address], [place], [address], Gilberto Dumont 3 11:23:22 Near syncope 150145434 Active 2022 Gilberto Martinez MD, FACP [address], [place], [address], Gilberto Tomlinson 3 15:05:23 Cataract 230079743 Active 2022 Gilberto Martinez MD, FACP [address], [place], [address], Gilberto Tomlinson 3 11:07:48 Constipat ion 01303355 Active 2022 Gilberto Martinez MD, FACP [address], [place], [address], Gilberto Tomlinson 3 15:35:53 Prediabet es 723895339 Active 2015 GLORIA Starr Mark 6 01:12:11 Osteoarth ritis 733172763 Active 2015 of the thumbs GLORIA Starr Mark 6 01:12:28 Unilatera l hearing loss Active 2015 in the left ear from an old injury jordy womack GLORIA juan Mark 1 12:00:30 Hypertens ceci disorder 08561724 Active 2015 GLORIA Starr Mark 6 01:13:11 Hyperlipi demia 03935959 Active 2015 GLORIA Starr Mark 6 01:13:21 Dysthymia 89873497 Active 2015 GLORIA Starr Mark 6 01:13:36 M ni re's disease 26355605 Active 2022 Gilberto Martinez MD, FACP [address], [place], [address], Gilberto Tomlinson 3 12:34:41 Screening for malignant neoplasm of colon Active 2022 Gilberto Martinez MD, FACP [address], [place], [address], Gilberto Tomlinson 3 11:55:04 Osteopeni a 355961963 Active 2022 Gilberto Martinez MD, FACP [address], [place], [address], Gilberto Tomlinson 4 12:58:26 Jaundice 72154296 Active 2023 Gilberto Martinez MD, FACP [address], [place], [address], Gilberto Tomlinson 11:52:21 Insomnia 597924176 Active 2023 Gilberto Martinez MD, FACP [address], [place], [address], Gilberto Tomlinson 4 18:05:08 Cholangio carcinoma of biliary tract 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 2023 Gilberto Martinez MD, FACP [address], [place], [address], Gilberto Tomlinson 4 10:27:58 Atrial fibrillat ion 61124591 Active 2023 Gilberto Martinez MD, FACP [address], [place], [address], Gilberto Tomlinson 4 10:52:12 Acute COVID-19 4477965352 Active 2023 Gilberto aMrtinez MD, FACP [address], [place], [address], Gilberto Tomlinson 11:56:27 Papilloma 898096485 Active 2015 Gilberto Martinez MD, FACP [address], [place], [address], Gilberto Tomlinson 6 12:32:20 Celluliti s of finger 82999094 Completed 201603/07/2020 Gilberto Martinez MD, FACP [address], [place], [address], Gilberto Tomlinson 0 16:01:23 Eruption 725952945 Completed 201601/01/2017 Gilberto Martinez MD, FACP [address], [place], [address], Gilberto Tomlinson 7 15:16:59 Tremor 94259947 Completed 201603/09/2021 GLORIA henao Mark 1 15:18:00 Hyperuric emia 15750159 Active 2017 Vanna GLORIA Smith Mark 8 15:02:35 Gout 20833716 Completed 201709/15/2020 Gilberto Martinez MD, FACP [address], [place], [address], Gilberto Tomlinson 1 11:23:01 Chronic kidney disease 363508072 Active 2017 Gilberto Martinez MD, FACP [address], [place], [address], Gilberto Tomlinson 8 16:14:13 Notes:small bowl obstruction DEC 23, 2021 Problem Notes None recorded. Procedures Surgical History Date Name Laterality Status Provider Name and Address Organization Details Recorded Time 04/24/20 24 Advanced Care Planning completed Gilberto Martinez MD, FACP [address], [place], [address], Gilberto Tomlinson 04/26/2024 10:00:24 04/24/20 24 JULIA GONSALES completed Gilberto Gonzalez 04/21/2024 16:49:19 04/25/20 23 dual energy X-ray absorptiometry completed Gilberto Martinez MD, FACP [address], [place], [address], Gilberto Tomlinson 04/26/2024 10:08:42 04/22/20 Advanced Care Planning completed Gilberto Martinez MD, FACP [address], [place], [address], Gilberto Tomlinson 04/23/2023 06:55:37 04/22/20 23 JULIA GONSALES completed Gilberto Martinez MD, FACP [address], [place], [address], Gilberto Tomlinson 04/23/2023 06:46:40 05/06/19 Cataract Surgery completed Gilberto Martinez MD, FACP [address], [place], [address], Gilberto Tomlinson 04/22/2023 11:43:39 03/27/20 Advanced Care Planning completed Gilberto Martinez MD, FACP [address], [place], [address], Gilberto Tomlinson 03/27/2022 12:56:32 03/27/20 JULIA GONSALES completed Gilberto Martinez MD, FACP [address], [place], [address], Gilberto Tomlinson 03/27/2022 11:44:01 07/03/19 cardiac pacemaker procedure completed Gilberto Martinez MD, FACP [address], [place], [address], Gilberto Tomlinson 09/26/2021 13:46:22 03/22/20 Advanced Care Planning completed Gilberto Martinez MD, FACP [address], [place], [address], Gilberto Tomlinson 03/25/2021 11:59:27 03/22/20 JULIA GONSALES completed Gilberto Martinez MD, FACP [address], [place], [address], GLORIA Martinez, Gilberto 03/22/2021 12:10:23 03/07/20 20 MDVIP SAWMary completed Gilberto Martinez MD, FACP [address], [place], [address], GLORIA Martinez, Gilberto 03/07/2020 15:19:23 02/25/20 19 Influenza Consent completed jordy womack GLORIA Martinez, Gilberto 02/24/2019 16:19:35 02/10/20 19 MDVIP SAWE completed Gilberto Martinez MD, FACP [address], [place], [address], GLORIA Martinez, Gilberto 02/09/2019 11:38:37 02/06/20 18 Influenza Consent completed Gilberto Mcrae 02/05/2018 14:25:28 02/06/20 18 MDVIP SAWE completed Loly Martinez, Gilberto 02/05/2018 14:24:52 12/21/19 17 Diagnostic colonoscopy completed Gilberto Martinez MD, FACP [address], [place], [address], GLORIA Martinez, Gilberto 02/05/2018 14:33:55 11/13/19 17 MDVIP DRU completed Abundio Martinez, Gilberto 11/12/2016 14:45:33 07/14/19 17 Unlisted px hands/fingers completed Gilberto Martinez MD, FACP [address], [place], [address], GLORIA Martinez, Gilberto 05/05/2017 19:23:27 05/06/19 06 Diagnostic colonoscopy completed Gilberto Martinez MD, FACP [address], [place], [address], GLORIA Martinez, Gilberto 05/05/2017 19:41:20 05/06/18 90 Cholecystectomy completed Gilberto Harper 03/29/2016 01:17:02 Knee Surgery completed Gilberto Vieyra 03/29/2016 01:17:28 Imaging Results None recorded. Procedure Notes None recorded. Medical Equipment None Reported. Allergies Allergen ID Allergen Name Allergen Category Reaction Reaction Severity Criticality Documentation Date Start Date Code Code System Note Provider Name and Address Organization Details Recorded Time 2964 cephalexi n medicatio n dizziness Not available Not available 03/07/2020 2231 RxNorm Giblerto Martinez MD, FACP [address], [place], [address], Gilberto Tomlinson 0 16:02:26 721 Iodinated contrast media (substanc e) medicatio n hives Not available Not available 06/25/2016 90249 2004 SNOMED Gilberto Martinez MD, FACP [address], [place], [address], Gilberto Tomlinson 7 12:04:29 Medications Name Sig Start Date Stop Date Status Note LastModified by Organization Details LastModified Time terbinafine HCl 1 % topical cream APPLY TO THE AFFECTED AND SURROUNDI NG AREAS OF SKIN BY TOPICAL ROUTE ONCE DAILY 02/09 completed Not Available Not Available Not Available doxycycline hyclate 100 mg capsule TAKE 1 CAPSULE BY MOUTH TWICE A DAY FOR 7 DAYS 03/09 completed Not Available Not Available Not Available ciprofloxac in 750 mg tablet 02/04 completed Not Available Not Available Not Available trazodone 50 mg tablet TAKE 1 TABLET BY MOUTH NIGHTLY NEEDED FOR SLEEP 11/26 completed Not Available Not Available Not Available ofloxacin 0.3 % eye drops 11/26 completed Not Available Not Available Not Available sotalol 80 mg tablet TAKE 1/2 TABLET TWICE A DAY BY MOUTH active Not Available Not Available No t Available lisinopril 20 mg tablet Take 1 tablet every day by oral route. 08/20 completed Not Available Not Available Not Available prednisone 20 mg tablet TAKE 2 TABS BY MOUTH THREE TIMES THE DAY BEFORE PROCEDURE AND 2 TABS THE MORNING OF 09/26 completed Not Available Not Available Not Available simvastatin 10 mg tablet TAKE 1 TABLET EVERY DAY 2024 active Not Available Not Available Not Avai lable clindamycin HCl 150 mg capsule TAKE 3 CAPSULES BY MOUTH 3 TIMES A DAY X5 DAYS 11/26 completed Not Available Not Available Not Available amlodipine 5 mg tablet TAKE 1 TABLET EVERY DAY 2023 active Not Available Not Available Not Avai lable prochlorper azine maleate 10 mg tablet TAKE 1 TABLET BY MOUTH EVERY 6 (SIX) HOURS NEEDED FOR NAUSEA OR VOMITING -USE FIRST FOR NAUSEA. active Not Available Not Available No t Available ciprofloxac in 500 mg tablet TAKE 1 TABLET BY MOUTH TWICE A DAY FOR 5 DAYS active Not Available Not Available No t Available sulfamethox azole 800 mg-trimetho prim 160 mg tablet Take 1 tablet every 12 hours by oral route. 09/17 completed Not Available Not Available Not Available hydrocodone 10 mg-acetamin ophen 325 mg tablet 05/05 completed Not Available Not Available Not Available spironolact one 25 mg tablet TAKE 1 TABLET (25 MG TOTAL) BY MOUTH DAILY. active Not Available Not Available No t Available lidocaine-p rilocaine 2.5 %-2.5 % topical cream PLEASE SEE ATTACHED FOR DETAILED DIRECTION S active Not Available Not Available No t Available ketorolac 0.5 % eye drops INSTILL 1 DROP 3 TIMES DAILY STARTING 2 DAYS BEFORE SURGERY, CONTINUE FOR 2 WEEKS AFTER 02/04 completed Not Available Not Available Not Available propranolol 10 mg tablet TAKE 1 TABLET THREE TIMES DAILY NEEDED 03/09 completed Not Available Not Available Not Available citalopram 20 mg tablet TAKE 1 TABLET EVERY DAY 2024 active Not Available Not Available Not Avai lable prednisolon e acetate 1 % eye drops,suspe nsion 02/04 completed Not Available Not Available Not Available tamsulosin 0.4 mg capsule take 1 capsule every day by oral route at bedtime 07/22 completed Not Available Not Available Not Available meclizine 25 mg tablet PRN active Not Available Not Available Not Available amlodipine 10 mg tablet TAKE 1 TABLET EVERY DAY 05/03 completed Not Available Not Available Not Available cephalexin 500 mg capsule 03/07 completed Not Available Not Available Not Available pantoprazol e 40 mg tablet,alex yed release 11/10 completed Not Available Not Available Not Available dexamethaso ne 4 mg tablet TAKE 2 TABLETS BY MOUTH ONCE DAILY ON DAYS 2, 3, AND 4 AND 9, 10, AND 11. active Not Available Not Available No t Available prednisone 50 mg tablet TAKE 1 TABLET 19 HRS, 13 HRS, 7 HOURS AND 1 HOUR BEFORE. TAKE 25MG OF BENEDRYL 1 HOUR BEFORE WELL active Not Available Not Available No t Available hydrochloro thiazide 12.5 mg capsule Take 1 capsule every day by oral route. 08/20 completed Not Available Not Available Not Available hydroxyzine HCl 25 mg tablet TAKE 1 TABLET BY MOUTH 3 TIMES A DAY as needed active Not Available Not Available No t Available allopurinol 300 mg tablet TAKE 1 TABLET EVERY DAY active Not Available Not Available No t Available hydrochloro thiazide 25 mg tablet TAKE 1 TABLET EVERY DAY active Not Available Not Available No t Available zolpidem 5 mg tablet TAKE 1 TABLET EVERY DAY BY ORAL ROUTE NEEDED. 11/26 completed Not Available Not Available Not Available metoprolol succinate ER 25 mg tablet,exte nded release 24 hr TAKE 1 TABLET BY MOUTH EVERY DAY 11/26 completed Not Available Not Available Not Available methylpredn isolone 4 mg tablets in a dose pack FOLLOW PACKAGE DIRECTION S 11/26 completed Not Available Not Available Not Available betamethaso ne dipropionat e 0.05 % topical ointment 02/09 completed Not Available Not Available Not Available lisinopril 40 mg tablet TAKE 1 TABLET EVERY DAY 2024 active Not Available Not Available Not Avai lable ondansetron 4 mg disintegrat ing tablet DISSOLVE ONE TABLET BY MOUTH EVERY 8 HOURS NEEDED FOR NAUSEA OR VOMITING active Not Available Not Available No t Available amoxicillin 875 mg-potassiu m clavulanate 125 mg tablet 02/04 completed Not Available Not Available Not Available oxycodone 5 mg tablet active Not Available Not Available No t Available trimethoben zamide 300 mg capsule 02/05 completed Not Available Not Available Not Available Vitamin D3 25 mcg (1,000 unit) capsule Take 1 capsule every day by oral route. active Not Available Not Available No t Available Klor-Con M20 mEq tablet,exte nded release TAKE 40 MEQ (4 TABS) BY MOUTH WITH DINNER. THEN TAKE 20 MEQ (2 TABS) BY MOUTH ONCE DAILY WITH FOOD. active Not Available Not Available No t Available ramelteon 8 mg tablet TAKE 1 TABLET BY MOUTH EVERYDAY AT BEDTIME 2023 active Not Available Not Available Not Avai lable metoprolol succinate 12.5MG qd active Not Available Not Available Not Available betahistine (bulk) TID active Not Available Not Available Not Available MoviPrep 100 gram-7.5 gram-2.691 gram oral powder packet 05/05 completed Not Available Not Available Not Available hydrochloro thiazide 12.5 mg tablet TAKE 1 TABLET EVERY DAY 08/12 completed Not Available Not Available Not Available Colcrys 0.6 mg tablet Take 1 tablet twice a day by oral route as needed. 02/09 completed Not Available Not Available Not Available Eliquis 5 mg tablet active Not Available Not Available No t Available Multi Vitamin QD active Not Available Not Available Not Available Belsomra 5 mg tablet active Not Available Not Available No t Available metoprolol succinate ER 50 mg capsule sprinkle, ext. release 24 hr Take 1 capsule every day by oral route at bedtime. 02/04 completed Not Available Not Available Not Available Fluzone High-Dose Quad 2020 (PF) 240 mcg/0.7 mL IM syringe 03/09 completed Not Available Not Available Not Available Paxlovid 300 mg (150 mg x 2)-100 mg tablets in a dose pack TAKE 1 DOSE PACK BY MOUTH DIRECTED FOR 5 DAYS 11/10 completed Not Available Not Available Not Available Vitals Date Recorded Body height Body temperature Heart rate Oxygen saturation Oxygen saturation in Arterial blood by Pulse oximetry Body mass index (BMI) Body weight Systolic blood pressure Diastolic blood pressure Provider Name and Address Organization Details Last Updated DateTime 180.34 cm 98.5 [degF] 60 /min 100 % 100 % 26.5 kg/m2 81520.2 7 g 152 mm[Hg] 86 mm[Hg] Gilberto Gonzalez 11:27:02 Date Recorded Body height Heart rate Systolic blood pressure Diastolic blood pressure Provider Name and Address Organization Details Last Updated DateTime 11/27/2023 180.34 cm 60 /min 120 mm[Hg] 60 mm[Hg] Gilberto Martinez MD, FACP [address] [facility] [address], [place], [address] , Gilberto Tomlinson 11/27/2023 10:51:07 Date Recorded Body height Body mass index (BMI) Body weight Body temperature Heart rate Oxygen saturation Oxygen saturation in Arterial blood by Pulse oximetry Systolic blood pressure Diastolic blood pressure Provider Name and Address Organization Details Last Updated DateTime 4 180.34 cm 28.7 kg/m2 13432.0 3 g 98.9 [degF] 78 /min 98 % 98 % 138 mm[Hg] 74 mm[Hg] Gilberto Gonzalez 4 11:01:41 Date Recorded Body height Body mass index (BMI) Body weight Body temperature Oxygen saturation Oxygen saturation in Arterial blood by Pulse oximetry Heart rate Systolic blood pressure Diastolic blood pressure Provider Name and Address Organization Details Last Updated DateTime 4 180.34 cm 29.3 kg/m2 45059.1 2 g 97.9 [degF] 97 % 97 % 68 /min 142 mm[Hg] 62 mm[Hg] Gilberto Gonzalez 4 11:12:50 Date Recorded Body height Body mass index (BMI) Body weight Body temperature Heart rate Oxygen saturation Oxygen saturation in Arterial blood by Pulse oximetry Systolic blood pressure Diastolic blood pressure Provider Name and Address Organization Details Last Updated DateTime 4 180.34 cm 29.6 kg/m2 17031.0 2 g 97.8 [degF] 64 /min 96 % 96 % 150 mm[Hg] 74 mm[Hg] Gilberto Gonzalez 4 12:07:50 Social History None recorded. Functional Status Question Answer Note LastModified by Organizat ion Details LastModified Time What is your level of alcohol consumption? Occasional [id number] Information not available 03/08/2020 Mental Status None recorded. Family History Relationship Description Onset Age of this Age Resolved Age Notes LastModified by Organization Details LastModified Time Father Myocardial infarction 65 [email or web address] Not available 03/29 01:16:35 Mother Coronary artery bypass graft 78 [email or web address] Not available 01:16:45 Mother Degenerative disorder of macula [id number] Not available 07/2017 17:12:41 Mother Hypertensive disorder [email or web address] Not available 07/2017 17:12:57 Medical History No medical history recorded. Immunizations Vaccine Type Date Status Note Provider Nam e and Address Organization Details Recorded Time SARS-COV-2 (COVID-19) vaccine, UNSPECIFIED 3 completed Gilberto Martinez MD, FACP [address] [facility],[address], [address], Gilberto Tomlinson 04/22/2023 11:49:58 SARS-COV-2 (COVID-19) vaccine, UNSPECIFIED 4 completed Gilberto Martinez MD, FACP [address] [facility] [address], [place], [address], Gilberto Tomlinson 04/24/2024 12:27:22 influenza, unspecified formulation 4 completed Gilberto Martinez MD, FACP [address] [facility] [address], [place], [address], Gilberto Tomlinson 04/24/2024 12:27:50 Hep A-Hep B 5 completed GLORIA Draper Mark 06/19/2024 10:33:46 Influenza, high-dose, trivalent, PF 8 completed Not Available [facility] 05/23/2019 02:39:30 tetanus toxoid, unspecified formulation 8 completed [facility] Martinez MD, [facility] [address] [address], [place], [address], Gilberto Tomlinson 05/05/2017 19:28:48 zoster live 5 completed Gilberto Martinez MD, FACP [facility] [address] [facility], [address], Gilberto Tomlinson 03/07/2020 15:22:49 DT (pediatric) 9 completed Not Available [facility] 05/23/2019 02:39:30 Influenza, high-dose, trivalent, PF 9 completed Not Available [facility] 05/23/2019 02:39:30 Pneumococcal conjugate PCV 13 0 completed GLORIA henao Mark 03/07/2020 15:36:56 Influenza, adjuvanted, trivalent, PF 6 completed Gilberto Martinez MD, FACP [address], [place], [address], Gilberto Tomlinson 05/01/2016 12:27:33 Influenza, split virus, quadrivalent, preservative 0 completed Gilberto Martinez MD, FACP [address] [facility],[address] [facility], [place], [address], Gilberto Tomlinson 03/07/2020 15:21:32 SARS-COV-2 (COVID-19) vaccine, UNSPECIFIED 1 completed Gilberto Martinez MD, FACP [address] [facility] [address], [place], [address], Gilberto Tomlinson 09/15/2020 11:13:51 SARS-COV-2 (COVID-19) vaccine, UNSPECIFIED 1 completed Gilberto Martinez MD, FACP [address] [facility],[address] [address], [place], [address], Gilberto Tomlinson 09/15/2020 11:14:02 Pneumococcal conjugate PCV20, polysaccharide HCY768 conjugate, adjuvant, PF 3 completed GLORIA Draper Mark 10/10/2022 13:09:57 COVID-19, mRNA, LNP-S, PF, 30 mcg/0.3 mL dose 1 completed Gilberto Martinez MD, FACP [address] [facility],[address] [address], [place], [address], Gilberto Tomlinson 03/22/2021 11:53:33 Influenza, split virus, quadrivalent, preservative 1 completed Gilberto Martinez MD, FACP [address] [facility],[address], [place], [address], Gilberto Tomlinson 03/22/2021 11:53:44 Influenza, adjuvanted, quadrivalent, PF 3 completed GLORIA Draper Mark 07/03/2024 12:30:34 Influenza, adjuvanted, quadrivalent, PF 2 completed Not Available [facility] 05/15/2022 11:09:01 COVID-19, mRNA, LNP-S, bivalent, PF, 10 mcg/0.2 mL 2 completed Not Available [facility] 05/15/2022 11:09:01 Past Encounters Encounter ID Performer Location Encounter Start Date Encounter Closed Date Diagnosis/Indication Diagnosis SNOMED-CT Code Diagnosis ICD10 Code Diagnosis Note [id number] Gilberto Martinez MD, [facility] Main Office [address] [place] [address] 05/01/2016 11:45:41 05/01/2016 12:36:50 Hypertensive disorder 45701842 I10 Marginal today. P: monitor at home few times/raulito h P: chk BMP Dysthymia 66370015 F34.1 Doing well on citalopram 20mg Osteoarthritis 337192048 M19.90 c/o muscle aches all over interferin g with sleep. Vit D level 30.5 P: Vit D 5,000 u/day for 30 days then Vit D 2,000 u /day forever Essential hypertension 84768984 I10 Papilloma 085425051 D36. 9 tiny papule seen by dentist. Pt declines further w/u at this time. [id number] Gilberto Martinez MD, [facility] Main Office [address] [place] [address] 06/25/2016 11:38:23 06/25/2016 12:17:32 Hypertensive disorder 81759022 I10 Home cuff reads high. BP office is 146 sys. P: get new cuff. continue present meds. Prediabetes 926853517 R7 3.03 Weight is up, contributi ng to BP and will impact pre-DM2 [id number] Gilberto Martinez MD, [facility] Main Office [address] [place] [address] 07/10/2016 15:47:57 07/10/2016 16:37:13 Cellulitis of finger 32181306 L03.012 Has had lesion to L index finger for weeks that has gotten more painful in past 24 hours.P: Bactrim DS BID x 10 days. Chk CBC, BMP and xray finger. Refer to Hand Surgery for possible debridemen t. [id number] Gilberto Martinez MD, FACP Main Office [address] [place] [address] 09/17/2016 14:18:19 09/17/2016 16:51:30 Cellulitis of finger 70608907 L03.012 Slowly healing - pain less and swelling less. Hypertensive disorder 38 070596 I10 New cuff reads 140's systolic (as recorded today in office). It would seem to be accurate. no change in BP medication [id number] Gilberto Martinez MD, FACP Main Office [address] [place] [address] 11/12/2016 13:24:33 11/12/2016 17:37:19 Hyperlipidemia 17881709 E78.5 Your lipid profile was pretty good on a very small dose of the statin. When you come in the spring for blood pressure check, try to skip the meal before the appointmen t and will check your lipids again. Prediabetes 894611252 R7 3.03 Your hemoglobin A1c's 5.3%. This is normal-goo d job! Essential hypertension 14410407 I10 We increase the hydrochlor othiazide to 25 mg a day in this seems to work well. Reviewing your old records from [facility], your sodium dropped what taking this medicine in the past. We did check this last month and the sorting was normal. Adult [facility] th examination 042777837 Z00.01 [place], the results of these studies are good. I'm going to touch on a few topics and then makes recommenda tions to improve your health and the years ahead. On examina tion - rash present 216513608 R21 [id number] Gilberto Martinez MD, FACP Main Office [address] [place] [address] 01/01/2017 15:07:53 01/01/2017 16:47:27 Hypertensive disorder 42316762 I10 New cuff reads 140's systolic (as recorded today in office). It would seem to be accurate. Had spironopla ctone added and pt notes decreased BP readings. P : chk BMP Prediabetes 235173323 R7 3.03 Weight is up, contributi ng to BP and will impact pre-DM2 Cellulitis of finger 275 84775 L03.012 Slowly healing - seems mostly resolved. [id number] Gilberto Martinez MD, FACP Main Office [address] [place] [address] 03/18/2017 15:22:57 03/18/2017 16:20:50 Prediabetes 535449190 R73.03 Weight is up, contributi ng to BP and will impact pre-DM2 Essential hypertension 96324415 I10 bp doing well and reading in office today is good P chk BMP Advised to avoid K+ Rich foods [id number] Gilberto Martinez MD, FACP Main Office [address] [place] [address] 04/01/2017 16:11:02 04/01/2017 17:51:17 Hypertensive disorder 81134430 I10 controlled Tremor 21439234 R25.1 Doubt Parkinson' s. Suspect familial P: trial propranolo l 10mg. Refer Neuro at later date. [id number] Gilberto Martinez MD, FACP Main Office [address] [place] [address] 07/24/2017 15:50:10 07/29/2017 11:46:49 Tremor 70506281 R25.1 Tremor helped with propranolo l Hypertensive disorder 38 117911 I10 controlled . P: chk BMP Prediabetes 904061412 R7 3.03 chk HgBA1c [id number] Gilberto Martinez MD, FACP Main Office [address] [place] [address] 02/05/2018 09:57:08 02/05/2018 16:27:37 Adult health examination 038234866 Z00.01 [place], the results of these studies are good. I'm going to touch on a few topics and then makes recommenda tions to improve your health and the years ahead. Influenza vaccine needed 8552836998 106 Z23 Gout 32445347 M10.9 UA 9.8. start colchicine 0.6mg BID rest of week, then QD thru 7 NOV. Start allopurino l 150mg QD next week, f/u here 6 weeks to check UA CBC, and BMP. Hypertensive disorder 38 545662 I10 Your blood pressure is controlled . Prediabetes 156105036 R7 3.03 YOur HgBA1c was 5.8%. This is the range of pre-diabet es. Regular exercise, avoiding carbs, and keeping your weight under control will keep this from becoming a problem. Chronic ki dney disease 266603636 N18.[address] Paulson- Renal. See me in 3 months. Dysthymia 32664571 F34.1 As we e discussed, in addition to citalopram , try daily exercise and a place of your own at your house. This has proven to be moore ip counsel for patients in the past. [id number] Gilberto Martinez MD, FACP Main Office [address] [place] [address] 02/18/2018 14:49:04 02/18/2018 16:49:17 Hypertensive disorder 09998095 I10 controlled . Gout 92893465 M10.9 UA 9.8. start colchicine 0.6mg BID rest of week, then QD thru 7 NOV. Start allopurino l 150mg QD next week, f/u here 6 weeks to check UA CBC, and BMP. [id number] Gilberto Martinez MD, FACP Main Office [address] [place] [address] 03/25/2018 12:12:17 03/25/2018 12:44:05 Chronic kidney disease 975345442 N18.[address] Paulson- Renal. See me in 3 months. Gout 98329955 M10.9 chk uric acid on 150mg allopurino l QD. Hypertensive disorder 38 241123 I10 controlled . Dysthymia 34428276 F34.1 Seems to be doing well off citalopram . Exercising daily. [id number] Gilberto Martinez MD, FACP Main Office [address] [place] [address] 06/03/2018 11:02:02 06/03/2018 13:52:58 Hyperuricemia 92135731 E79.0 [id number] Gilberto Martinez MD, FACP Main Office [address] [place] [address] 07/22/2018 11:23:37 07/22/2018 13:20:24 Chronic kidney disease 668248564 N18.[address] Yemi Hernandez. Renal function is stable. Hyperuricemia 40951451 E 79.0 uric acid NL on allopurino l 300mg. Hypertensive disorder 38 159539 I10 controlled . Dysthymia 20216170 F34.1 Doing well on citalopram 20mg. [id number] Gilberto Martinez MD, [facility] Main Office [address] [place] [address] 02/09/2019 10:42:48 02/09/2019 15:47:17 Adult health examination 007362969 Z00.00 [place], the results of these studies are good. I'm going to touch on a few topics and then makes recommenda tions to improve your health and the years ahead. Wound of skin 088342898 T14.8XXA linear wound R mora 3 cm length. + redness but not actively bleeding. Screening for malignant neoplasm of prostate 580739055 Z12.5 [id number] Gilberto Martinez MD, FACP Main Office [address] [place] [address] 02/24/2019 15:53:32 02/24/2019 17:36:53 Administration of influenza vaccine 78653859 Z23 Fatigue 38599353 R53.83 Pt reports new early fatigue with exertion. Occasional ly gets some SOB but no SOB. Has decreased B- karoline w/o improvemen t. Exam concerning for possible increase size to apical impulse. Has remote smoking history. P: chk CXR. EHO heart. If ok will check home sleep study. home sleep study completed and revealed severe sleep apnea. Chronic ki dney disease 158853015 N18.[address] Yemi Hernandez. Renal function is stable. Hypertensive disorder 38 788740 I10 controlled . Spent 30 [place] [id number] Gilberto Martinez MD, FACP Main Office [address] [place] [address] 02/19/2020 10:02:06 02/19/2020 11:41:41 Adult health examination 075687796 Z00.00 [place], the results of these studies are good. I'm going to touch on a few topics and then makes recommenda tions to improve your health and the years ahead. Long-term drug therapy 274132320 Z79.899 [id number] Gilberto Martinez MD, [facility] Main Office [address] [place] [address] 03/07/2020 14:47:31 03/07/2020 16:29:13 Adult health examination 108478440 Z00.01 [place], the results of these studies are good. I'm going to touch on a few topics and then make some recommenda tions to improve your health in the year ahead. Administra tion of pneumococcal vaccine 05203905 Z23 Chronic ki dney disease 940620626 N18.[address] Yemi Hernandez. Renal function Hyperlipidemia 03521404 E78.5 Your lipid profile was pretty good on a very small dose of the statin. Let us know if you want to do the CT Coronary Calcium test to check for coronary atheroscle rosis. Hypertensive disorder 38 532973 I10 YOur BP was a little on the high side. Regular exercise and continuing weight loss will keep this in check . Hyperuricemia 77844944 E 79.0 As you know, elevated uric acid can jethro d to gout. YOur level on 300mg allopurino l will keep this under control. Prediabetes 225066895 R7 3.03 YOur HgBA1c was 5.6% which is in the normal range. Regular exercise, avoiding carbs, and keeping your weight under control has cured you from pre-diabet es! [id number] Gilberto Martinez MD, [facility] Main Office [address] [place] [address] 09/15/2020 11:03:47 09/15/2020 15:22:18 Essential hypertension 48126651 I10 BP doing well and reading in office today is good P chk BMP Chronic ki dney disease 657466370 N18.[address] Yemi Hernandez. Check Renal function today. Hypertensive disorder 38 684876 I10 BP was fine today. Pt aware of need for weight loss. P: chk BMP. Hyperuricemia 10366459 E 79.0 As you know, elevated uric acid can lead to gout. check CBC and uric acid on allopurino l. [id number] Gilberto Martinez MD, [facility] Main Office [address] [place] [address] 03/09/2021 11:41:14 03/09/2021 15:37:04 Adult health examination 923602665 Z00.00 Hypertensive disorder 38 393278 I10 BP was fine today. Pt aware of need for weight loss. P: chk BMP. [id number] Gilberto Martinez MD, [facility] Main Office [address] [place] [address] 03/22/2021 11:49:42 03/22/2021 14:12:01 Adult health examination [id number] Z00.01 Romain, the results here are pretty good. We discussed going to [facility]'s to see about getting hearing aids. Chronic ki dney disease 745540470 N18.[address] Paulson- Renal. YOur Renal function today was fine. Dysthymia 26205067 F34.1 YOu seem to be doing well on citalopram 20mg. Hyperlipidemia 65098881 E78.5 Your lipid profile was pretty good on a very small dose of the statin. Let us know if you want to do the CT Coronary Calcium test to check for coronary atheroscle rosis. Hypertensive disorder 38 183785 I10 BP was fine today. The weight loss has helped your BP. Hyperuricemia 97026748 E 79.0 As you know, elevated uric acid can lead to gout. YOur level on this exam was fine. Prediabetes 190160913 R7 3.03 YOur HgBA1c was 5.6% which is in the normal range. Regular exercise, avoiding carbs, and keeping your weight under control has cured you from pre-diabet es! Advance care planning 71 8893227 Z71.89 We discussed the concepts of Durable Power of Healthcare and Living de luna- you have both of these. [id number] Gilberto Martinez MD, [facility] Main Office [address] [place] [address] 05/03/2021 10:46:05 05/03/2021 12:19:24 Bradycardia 24584804 R00.1 EKG shows sinus bradycardi a. Had problems last week at [facility] becasue of fast from midnight, including liquids.P: use water before this week's Mass.Amlod ipine held starting yesterday. Pt knows how to monitor pulse. Expectatio n is for pulse to increase over the next 48 hours. chk TSH and BMP Hypertensive disorder 38 374821 I10 BP is acceptable today. Prediabetes 923445814 R7 3.03 chk glucose. [id number] Gilberto Martinez MD, FACP Main Office [address] [place] [address] 05/29/2021 12:13:23 05/29/2021 14:54:44 Chronic kidney disease 712407910 N18.[address] Yemi Hernandez. YOur renal function had deteriorat ed by the time patient hospitaliz ed. This resolved with IV hydration. P: chk BMP Hypertensive disorder 38 455434 I10 BP is acceptable today. Sinus bradycardia 936414 05 R00.1 This is thought to be source of his not feeling well with increased fatigue. P to get pacemaker next week. [id number] Gilberto Martinez MD, FACP Main Office [address] [address] 09/26/2021 13:02:54 09/26/2021 15:18:26 Chronic kidney disease [id number] N18.[address] Yemi Hernandez. YOur renal function had deteriorat ed by the time patient hospitaliz ed. This resolved with IV hydration. P: chk BMP Hypertensive disorder 38 969193 I10 BP readings at home reviewed. BP today was fine. P: cjk BMP Hyperuricemia 98269560 E 79.0 Chk CBC and uric acid on allopurino l. Sinus bradycardia 817102 05 R00.1 Energy much better s/p pacemaker. [id number] Gilberto Martinez MD, FACP Main Office [address] [place] [address] 01/10/2022 12:28:51 01/10/2022 15:28:51 Hypertensive disorder 58063477 I10 BP readings at home reviewed. BP today was fine. Prediabetes 938285896 R7 3.03 This has been controlled with change to diet and exercise. Hyperuricemia 93204824 E 79.0 CBC and uric acid on allopurino l have been good. Chronic ki dney disease 629721629 N18.[address] Yemi Hernandez. YOur renal function had deteriorat ed by the time patient hospitaliz ed. This resolved with IV hydration. [id number] Gilberto Martinez MD, FACP Main Office [address] [place] [address] 03/13/2022 11:22:32 03/13/2022 15:54:16 Adult health examination 792707565 Z00.01 Romain, the results here are pretty good. We discussed going to [facility]'s to see about getting hearing aids. Nocturia 778720085 R35.1 Essential hypertension 57936795 I10 BP doing well and reading in office today [place] BMP [id number] Gilberto Martinez MD, FACP Main Office [address] [address] [place] [address] 03/13/2022 13:50:02 03/13/2022 15:56:27 Lightheadedness 377182824 R42 Patient has lost 50 lbs since September 2020. Reviewed home BP readings and systolc 110-120 range.EKG unremarkab le.P: Pt may be over - medicated with BP meds. P: decrease spironolac tone 12.5 mgf/u BP check in 3 weeks. [id number] Gilberto Martinez MD, FACP Main Office [address] [facility] [address] [place] [address] 03/27/2022 11:19:37 03/28/2022 15:39:55 Adult health examination 634857324 Z00.01 Romain, the results here are pretty good. I'll comment on a few things we discussed then make a recommenda tions for your health in the year ahead. Advance care planning 71 5520134 Z71.89 We discussed the concepts of Durable Power of Healthcare and Living de luna- you have both of these. Chronic ki dney disease 422622946 N18.[address] Yemi Hernandez for this. The real functio is fine on today's exam. Hyperlipidemia 27834083 E78.5 Your lipid profile was pretty good on a very small dose of the statin. Hypertensive disorder 38 542272 I10 BP readings at home and today are fine. Hyperuricemia 36061157 E 79.0 CBC and uric acid on allopurino l have been good. Since you have lost a significan t amount of weight, we discussed stopping the allopurina ol entierely and re-checkin g the uric acid in 6 weeks. Prediabetes 722192241 R7 3.03 This has been controlled and resolved with change to diet and exercise. [id number] Gilberto Martinez MD, FACP Main Office [address] [place] [address] 05/15/2022 11:08:32 05/15/2022 13:25:15 Chronic kidney disease 045651980 N18.[address] Yemi Hernandez for this. The real functio is fine on today's exam. Hypertensive disorder 38 364644 I10 BP readings at home and today are fine. Hyperlipidemia 14197654 E78.5 Your lipid profile was pretty good on a very small dose of the statin. Sinus bradycardia 155731 05 R00.1 Energy much better s/p pacemaker. History of gout 84549025 4 Z87.39 Has been on allopurino l for history of gout. Ghanged diet and lost 60 lbs. P: chk uric acid off of allopurino l. [id number] Gilberto Martinez MD, FACP Main Office [address] [place] [address] 07/12/2022 14:21:48 07/12/2022 15:10:39 Chronic kidney disease 134768531 N18.[address] Yemi Hernandez for this. The real functio has remained stable. Hypertensive disorder 38 121191 I10 Mild orthostati c hypotensio n. Has lost 60 lbs. Suspect over-medic ated. P: decrease lisinopril to 20mg QD Near syncope 682566485 R 55 See above. Call with BP readings next week. [id number] Gilberto Martinez MD, FACP Main Office [address] [place] [address] 08/20/2022 14:43:51 08/20/2022 15:30:18 Chronic kidney disease 149400666 N18.[address] Paulson- Renal for this. The real functio has remained stable. Hypertensive disorder 38 558448 I10 Mild orthostati c hypotensio n. Has lost 60 lbs. Suspect over-medic ated. P: decrease lisinopril to 20mg QD BP readings reviewed. Near syncope 871241900 R 55 Had similar episode last MAY. Was seen and evaluated [facility] with negative w/u. Reports has smaller, more frequrnt episodes Labs last month reviewed and fine.No falls.P: reached out to Cardiology re: interogati ng pacemaker for time of noon on Aug. DDx- seizure is in the DD, along with lamonte artery stenosis. . Labs fro last month at [facility] are fine. [id number] Gilberto Martinez MD, FACP Main Office [address] [facility] [address] [place] [address] 10/10/2022 11:06:09 10/10/2022 11:39:50 Prediabetes 947981079 R73.03 This has been controlled and resolved with change to diet and exercise. Hypertensive disorder 38 848279 I10 Has done well taking 1/2 lisinopril (20 mg) QD. Trial of holding spironolac tone Near syncope 639858670 R 55 Had similar episode last MAY. Was seen and evaluated [facility] with negative w/u. Reports has smaller, more frequrnt episodes Labs last month reviewed and fine.No falls.P: reached out to Cardiology on interogati ng pacemaker- it was negative. Neuro w/u negatve. Referred to ENT, w/u in progress. Chronic ki dney disease 089812262 N18.9 The real functio has remained stable. Administra tion of pneumococcal vaccine 32735745 Z23 [id number] Gilberto Martinez MD, FACP Main Office [address] [facility] [address] [place] [address] 11/02/2022 15:03:00 11/02/2022 15:41:21 Hypertensive disorder 70376177 I10 Has done well taking 1/2 lisinopril (20 mg) QD. resume HCTZ 12.5mg QD Hyperuricemia 05271546 E 79.0 Doing welll off of this with weight loss. chk uric acid Constipation 91373966 K5 9.00 Use Colace [place] [id number] Gilberto Martinez MD, FACP Main Office [address] [place] [address] 11/21/2022 10:52:44 11/21/2022 13:49:17 Chronic kidney disease 641083014 N18.9 The real functio has remained stable. Hypertensive disorder 38 132014 I10 Has done well taking 1/2 lisinopril (20 mg) QD. resume HCTZ 12.5mg QD BP controlled now. Hyperuricemia 15705634 E 79.0 Doing welll off of this with weight loss. chk uric acid Near syncope 115756220 R 55 Recentrly started on betahistin e by ENT. Had particulrl y bad spell on Nov. P: interogate pacemaker. Continiue tapering up betahistin e. P: chk CBC Constipation 13590583 K5 9.00 Use Colace [place] [id number] Gilberto Martinez MD, FACP Main Office [address] [place] [address] 01/18/2023 12:18:10 01/18/2023 15:32:10 Administration of influenza vaccine 33078234 Z23 Hypertensive disorder 38 140553 I10 Has done well taking 1/2 lisinopril (20 mg) QD. resume HCTZ 12.5mg QD BP controlled now. Chronic ki dney disease 317796000 N18.9 The real functio has remained stable. [id number] Gilberto Martinez MD, FACP Main Office [address] [place] [address] 04/03/2023 11:26:11 04/03/2023 13:36:09 Adult health examination 345626725 Z00.01 Nocturia 176879944 R35.1 [id number] Gilberto Martinez MD, FACP Main Office [address] [place] [address] 04/22/2023 11:45:55 04/22/2023 13:51:04 Advance care planning 615453357 Z71.89 We discussed the concepts of Durable Power of Healthcare and Living de luna- you have both of these. Chronic ki dney disease 498041044 N18.9 The renal function has remains stable. Avoid NSAID's; use Tylenol for pain preferably . Hypertensive disorder 38 368153 I10 Has done well taking lisinopril (20 mg) daily and HCTZ 12.5mg . Hyperlipidemia 58617396 E78.5 Your lipid profile was pretty good on a very small dose of the statin. Prediabetes 953061811 R7 3.03 This has been controlled and resolved, with changes to diet and exercise. Screening for malignant neoplasm of colon 200798767 Z12.11 YOur last colonoscop y was in 2017. In lieu of another colonoscop y, we elected to get a ColoGard which will be shipped to your house. Active or passive immunization 619967317 Z23 We ordered the new RSV vaccine. Adult heal th examination 051113957 Z00.01 Romain, the results here are good. Your PSA rudy from 2 to 3 this year. The prostate exam was benign. We discussed repeating later this Spring when you return for check-up. [id number] Gilberto Martinez MD, FACP Main Office [address] [place] [address] 08/13/2023 12:26:27 08/13/2023 16:31:18 Near syncope 809942723 R55 Recentrly started on betahistin e by ENT. Had particulrl y bad spell on Nov. P: interogate pacemaker. Continiue tapering up betahistin e. P: chk CBC Hypertensive disorder 38 084500 I10 Has done well taking lisinopril (20 mg) daily and HCTZ 12.5mg . However, recently has gone up. P: decrease BMI and increase HCTZ 25mg. Continue lisinopri 40mg QD [id number] Gilberto Martinez MD, FACP Main Office [address] [place] [address] 11/11/2023 11:21:15 11/12/2023 12:07:52 Jaundice 71051550 R17 Etiology not clear. Has painless jaundice. Stop allopurina ol; HCTZ; hold simvastati n.Chk LFT's, Hepatitis profile, amylase. lipase. Chk US liver. For now, try warm baths and hydroxyzin e 25 25mg Hypertensive disorder 38 713001 I10 Has done well taking lisinopril (20 mg) daily and HCTZ 12.5mg . Due to jaundice, stop HCTZ. Pruritic disorder 607362 002 L29.9 try Atarax 25mg PO QID PRN. Consider cholestyra mine, pending lab results. 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 HCTZ resumed. Insomnia 540818924 G47.0 0 Trazodone did not work nor Ambien 5mg HS PRN. THe metoprolol at HS has been helpful. Atrial fibrillation 4943 6004 I48.91 Controlled at this time. [id number] Gilberto Martinez MD, FACP Main Office [address] [facility] [address] [place] [address] 01/15/2024 10:56:04 01/15/2024 17:02:47 Insomnia 889023203 G47.00 Trazodone did not work nor Ambien 5mg HS PRN. THe metoprolol at HS has been helpful. [id number] Gilberto Martinez MD, FACP Main Office [address] [facility] [address] [place] [address] 02/05/2024 11:12:12 02/05/2024 14:13:39 Cholangiocarcinoma of biliary tract 086146703 C22.1 Will initiate referal to [facility] for second opinion Chronic ki dney disease 021613788 N18.9 The renal function has remains stable. Avoid NSAID's; use Tylenol for pain preferably . Hyperuricemia 06912130 E 79.0 Doing welll off of this with weight loss. chk uric acid Insomnia 138791880 G47.0 0 Trazodone did not work nor Ambien 5mg HS PRN. THe metoprolol at HS has been helpful. Aortic karli ve regurgitation 94869043 I35.1 Atrial fibrillation 4943 6004 I48.91 Controlled at this time. [id number] Gilberto Martinez MD, FACP Main Office [address] [place] [address] 04/24/2024 10:43:56 04/24/2024 15:50:16 Adult health examination 517356026 Z00.01 Romain, the results here are good. I'll comment on a few things we discussed than make some suggestion s for your health in the year ahead. Nocturia 042358585 R35.1 Decreasini ng fluid intake after dinner can help. Advance care planning 71 9736228 Z71.89 We discussed the concepts of Durable Power of Healthcare and Living de luna- you have both of these. Atrial fibrillation 4943 6004 I48.91 This seems to be stable with rate controlled . Cholangioc arcinoma of biliary tract 417655899 C22.1 Will initiate referal to [facility] for second opinion Chronic ki dney disease 500577039 N18.9 The renal function has remains stable. Avoid NSAID's; use Tylenol for pain preferably . Hypertensive disorder 38 452812 I10 Has done well taking lisinopril (40 mg) daily and spironolac tone 25mg daily. The potassium remains in the normal range. Insomnia 215929940 G47.0 0 You seem to be sleeping better now; perhaps better since finishing chemo. Prediabetes 816851757 R7 3.03 This has been better controlled with changes to diet and exercise. However, the HgbA1c has drifted up to 6.6% We will re-check on your next visit. Osteopenia 545437874 M85 .80 YOu had osteopenia on DEXA last year. We will get another this year see if any medication s need to be prescribed . Health Concerns Section Related Observation LastModified by Organization Detai ls LastModified Time None Recorded Concern Status LastModified by Organization Details LastModified Time None Recorded Advance Directives Directive None Recorded Payers Encounter Date Sequence Insurance Name Policy Number Policy Galeano Covered Member ID Galeano Member ID Guarantor Name 11/11/2023 1 [employer] (MEDICARE REPLACEMENT/A DVANTAGE - HMO) Romain A Hortensia [id number] Romain A Hortensia 11/27/2023 1 [employer] (MEDICARE REPLACEMENT/A DVANTAGE - HMO) Romain A Morrow [id number] Romain A Hortensia 01/15/2024 1 [employer] (MEDICARE REPLACEMENT/A DVANTAGE - HMO) Romain A Morrow [id number] Romain A Morrow 02/05/2024 1 [employer] (MEDICARE REPLACEMENT/A DVANTAGE - HMO) Romain A Morrow [id number] Romain A Hortensia 04/24/2024 1 [employer] (MEDICARE REPLACEMENT/A DVANTAGE - HMO) Romain A Hortensia [id number] Romain A Morrow Notes Date Note Type Note Provider Name and Address Organization Details Recorded Time 4 text/html Past 3 weeks, reports itching over body, dark urine, and fatigue. Recently started on amlodipine. Peers have commented he Looks jaundiced. Has been trying to lose weight and has lost ten lbs. GLORIA Draper Mark 07/07/2024 16:02:29 4 text/html The patient is a 73-year-old male who presents for evaluation of multiple medical concerns. He is accompanied by an adult female. He recently underwent a blood test, which revealed an elevated CEA level. Despite his eligibility for a liver transplant, he is undergoing chemotherapy. His tumor is currently too large for surgical resection or a liver transplant, but there are no signs of metastasis. He is scheduled to start aggressive chemotherapy with Dr. Mcgee from [facility] next Saturday. A CT scan will be performed after 3 months to assess any response to the tumor. He is scheduled for a port placement next Saturday and his first chemotherapy session on Saturday. He is seeking a second opinion at the [facility]. His blood pressure has been typically in the low 130s over mid 60s, but he does not believe it is severe. However, he has noticed stress readings at his oncologist's office, with a reading of 150/80. He underwent surgical ablation on 09/09/2023. Following his endoscopy, he developed atrial fibrillation, which had been present for an extended period. His chocolate coater suggested the possibility of cardioversion, so he was prescribed metoprolol 25 mg, which was increased to 50 mg. However, metoprolol caused fatigue, so it was adjusted to take before bedtime. He is scheduled for another device check and an appointment with Dr. Swift in 12/2023. Trazodone was not effective for him. After hospital discharge, he was prescribed Ambien, which was ineffective. He can sleep for about 4 hours at the beginning of the night before waking up frequently. He is seeking medication to help him sleep. Previously, he could walk about a mile on flat terrain without issue. However, on Saturday, after walking less than a quarter mile, he had to stop multiple times due to exhaustion. His blood pressure and pulse ox were normal at 131/69 and 98. A manual read by his chocolate coater showed normal sinus rhythm. Social History: His daughter works as an oncology nurse in [place]. Gilberto Martinez MD, [facility] [address], [place], [address], Gilberto Tomlinson 11/27/2023 18:58:15 4 text/html The patient presents for evaluation of multiple medical concerns. He is accompanied by an adult female. He reports experiencing several fevers, none of which exceeded 100.5 degrees. His primary complaint is fatigue and lack of energy, particularly during chemotherapy sessions. Despite taking anti-nausea medication, steroids, and additional pills for three days post-chemotherapy, he continues to feel tired. He also mentions difficulty in completing thoughts and potential mouth sores, which he suspects may be related to stents. He has noticed a change in his voice and some skin discomfort, although the latter has improved. He has been gaining weight and is on an aggressive chemotherapy regimen aimed at reducing his tumor size in preparation for surgery. He received his second infusion yesterday as part of a six-month treatment plan, which includes imaging after three months. He has a pacemaker and was unable to undergo MRCP. He has been advised to receive influenza and COVID-19 vaccines. He has been observed walking slowly and without swinging his arms, raising concerns about potential Parkinson's disease. He also reports shortness of breath and has a history of osteoporosis in his spine. His last DEXA scan was conducted last winter. He has experienced increased hand tremors but reports no changes in handwriting. He has undergone several chest x-rays due to possible infections and has been told he has a sick sinus rhythm. A recent visit to a general vocational instructor confirmed that his EKG results were not concerning. He is currently taking metoprolol for atrial fibrillation and a general vitamin supplement. He takes melatonin at night, which helps him sleep for approximately four hours. However, he struggles with insomnia afterwards. He recalls receiving a time-release melatonin-like medication during a previous hospital stay, which seemed to help, and is interested in trying it again. Gilberto Martinez MD, FACP [address], [place], [address], Gilberto Tomlinson 01/15/2024 17:41:32 4 text/html The patient presents for evaluation of multiple medical concerns. He is accompanied by an adult female. He reports experiencing fatigue, which he attributes to his recent chemotherapy session. The fatigue intensifies during physical activity, such as climbing stairs, and is noticeable even when he is sitting or getting dressed. Despite this, his oxygen levels remain normal. He has tried various sleep aids without much success and is currently trying a new one from [employer], which seems to be somewhat effective. He is scheduled for further chemotherapy and imaging after three months. He mentions a diminished sense of taste and weight gain. He contracted COVID-19 at the end of September 2023 and was prescribed Paxlovid. He reports minimal nausea and no recurrence of dizziness from Meniere's disease since starting betahistine. His current medication regimen includes allopurinol, amlodipine 5 mg, betahistine for dizziness, citalopram, dexamethasone, Eliquis, hydrochlorothiazide, hydroxyzine as needed, ketorolac eyedrops, lidocaine, pilocarpine, lisinopril 40 mg, meclizine as needed, metoprolol 12.5 mg, ondansetron, prednisolone eyedrops, prochlorperazine, ramelteon 8 mg, simvastatin, vitamin D, and a multivitamin. He has discontinued the use of ketorolac eyedrops, lidocaine, and prednisolone eyedrops. He has not taken meclizine in a while and uses ondansetron occasionally. He has been diagnosed with a leaky heart valve and has had his metoprolol dosage adjusted several times. He underwent ablation on September 09, 2023, and continues to experience atrial fibrillation. He has a follow-up appointment with Dr. Rausch. He has undergone an echocardiogram and has a pacemaker. He reports that his CA 19 levels have decreased. He believes his mental state is stable, but occasionally struggles to articulate his thoughts. He is considering long term and has plans in place should he be unable to continue working. 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 He reports that his most recent sermon was shorter than usual due to fatigue. Family History: Heart issues are predominant in his family. His father of heart disease at about 70. Immunizations: He got influenza vaccine today. He had COVID-19 vaccine. GLORIA Draper Mark 07/30/2024 13:42:44 4 text/html Patient is here for the [facility] Wellness Program and Subsequent Annual Wellness Exam. During this visit we will review and discuss their Health Risk Assessment and review the various tests and procedures performed as part of the [facility] Annual Wellness Exam. The patient has no current acute medical complaints, nor any recent hospitalizations. Discussion Points for Review during Visit:-Review current medical conditions and specialists' consultations.-Labs and testing review in detail.-Review risks associated w/pain, nutrition, hydration, sleep, and stress, and inactivity. GLORIA Degroot Mark 05/20/2024 16:59:53
--- NOTE | 2024-10-13 19:54 | ED_ITS ---
HPI - Fever General Chief Complaint: Fever Stated Complaint: Fever-active Chemo patient Time Seen by Provider: 10/13/24 19:22 History of Present Illness HPI Narrative: Patient is a 74-year-old male who presents to the emergency department this evening complaining of a fever. Patient states that around 6:00 p.m. this evening he started feel chills and took his temperature and noted that it was 100.9. Patient is currently on oral chemotherapy and follows up at [facility] through [facility]. Patient called his cancer center today and they told him to go to any emergency department and get checked out. He states that he feels nauseous but has not had any vomiting episodes. Denies any recent illness, any sick contacts at home, any chest pain or shortness of breath, any abdominal pain, and denies any urinary symptoms. No additional symptoms or concerns at this time. Related Data Allergies Allergy/AdvReac Type Severity Reaction Status Date / Time cephalexin Allergy Intermediate Dizzy Verified 10/13/24 19:17 iodine Allergy Intermediate Hives Verified 10/13/24 19:17 Review of Systems 2 Review of Systems: All systems are reviewed and are negative unless stated otherwise in the HPI. Exam 2 Narrative: General: Alert, awake, afebrile, in no acute distress. HEENT: PERRL, no rhinorrhea, no post nasal drip, oropharynx clear. Neck: Trachea midline, no JVD, no lymphadenopathy. Cardiovascular: Regular rate and rhythm, no murmurs, rubs or gallops, no peripheral edema. Respiratory: Clear to auscultation bilaterally, no tachypnea, no wheezing, no rhonchi, no rubs, no respiratory distress. Abdomen: Soft, nontender, nondistended, no rebound, no guarding, no peritoneal signs. Musculoskeletal: No joint swelling or deformity, normal muscle tone. Skin: No rashes or petechia, no signs of infection. Psychiatric: Alert and oriented, normal behavior and judgment for situation. Neurological: Alert and oriented to person, place, and time. Follows all commands. No focal deficits, speech is clear and fluent. Course Vital Signs Vital signs: Vital Signs Temperature 98.9 F 10/13/24 19:20 Pulse Rate 62 10/13/24 19:20 Respiratory Rate 25 H 10/13/24 19:20 Blood Pressure 193/176 H 10/13/24 19:20 Pulse Oximetry 97 10/13/24 19:20 Oxygen Delivery Room Air 10/13/24 19:20 Temperature 98.9 F 10/13/24 19:20 Pulse Rate 60 10/13/24 21:18 Respiratory Rate 20 10/13/24 21:18 Blood Pressure 111/58 L 10/13/24 21:18 Pulse Oximetry 97 10/13/24 21:18 Oxygen Delivery Room Air 10/13/24 19:20 MDM - Fever MDM Narrative Medical decision making narrative: The patient was evaluated by myself in the emergency department. History is obtained from patient who is an independent historian and physical exam was performed. External medical records were reviewed at this time. IV was established and pertinent tests were ordered. Laboratory results obtained revealing no acute process, no evidence of neutropenia, patient's white blood cell count was noted to be 10. Urinalysis unremarkable. Imaging studies obtained included CXR which was independently interpreted by me revealing no acute cardiopulmonary process, which is pending final radiology interpretation. Differential diagnosis considerations include patient pain and fever, sepsis, infectious process such as pneumonia/UTI, dehydration, electrolyte derangements, acute viral syndrome. Comorbidities impacting this visit include current chemotherapy use. I have evaluated and discussed social determinants of health with the patient that could potentially impact subsequent diagnosis and treatment plans. On repeat assessment of the patient, reevaluation revealed that the patient is doing well and is in no acute distress. Patient symptoms have improved since he arrived to our emergency department. Repeat vital signs were all reviewed and noted to be stable. Differential diagnosis and treatment plan were discussed with the patient at bedside. Patient agrees with discussion and after shared medical decision making agrees with discharge. All questions were answered to the patient's satisfaction. Patient will follow up with his PCP/oncologist in 3-5 days. Patient was provided with strict return precautions and instructed to return to the emergency department if any new or worsening symptoms develop. The patient was discharged in stable condition. Lab Data 10/13/24 19:33 10/13/24 19:33 Labs: Lab Results 10/13/24 10/13/24 10/13/24 Range/Units 19:33 19:48 19:53 WBC 10.1 H (4.5-10.0) K/mm3 RBC 3.22 L (4.6-6.20) M/mm3 Hgb 10.2 L (14.0-18.0) g/dL Hct 31.9 L (42.0-52.0) % MCV 99.1 (80-100) fl MCH 31.7 (26-34) pg MCHC 32.0 (32-36) g/dl RDW 16.6 H (11.5-14.5) % Plt Count 199 (150-375) k/mm3 MPV 9.6 (7.4-10.4) fl Immature Gran % (Auto) 0.9 H (0-0.5) % Neut % (Auto) 87.9 H (45.5-73.1) % Lymph % (Auto) 3.7 L (18.3-44.2) % Borden % (Auto) 7.4 (2.6-8.5) % Eos % (Auto) 0.0 (0-4.4) % Baso % (Auto) 0.1 L (0.2-1.2) % Lymph # (Auto) 0.37 L (0.9-3.2) K/mm3 Borden # (Auto) 0.8 H (0.1-0.6) K/mm3 Eos # (Auto) 0.0 (0-0.3) K/mm3 Baso # (Auto) 0.0 (0.0-0.1) K/mm3 Abs Immat Gran (auto) 0.09 H (0.00-0.031) K/mm3 Absolute Neuts (auto) 8.9 H (1.3-6.7) K/mm3 Absolute Nucleated RBC 0.000 (0.0-0.012) K/mm3 Nucleated RBC % 0.0 (0.0-0.2) % PT 16.5 H (11.1-14.7) Seconds INR 1.4 APTT 26.5 (22.3-36.8) Seconds Sodium 132 L (137-145) mmol/L Potassium 4.0 (3.4-5.0) mmol/L Chloride 103 (98-107) mmol/L Carbon Dioxide 19 L (22-30) mmol/L Anion Gap 10 (4-12) mmol/L BUN 36 H (9-20) mg/dL Creatinine 1.38 H (0.7-1.3) mg/dL Estim Creat Clear Calc 43 ml/min Estimated GFR 50 L (59 - ) Glucose 123 H (65-110) mg/dL Lactic Acid 1.6 (0.7-2.0) mmol/L Calcium 9.0 (8.4-10.2) mg/dL Magnesium 1.8 (1.6-2.3) mg/dL Total Bilirubin 0.7 (0.2-1.3) mg/dL AST 48 (17-59) U/L ALT 38 (6-50) U/L Alkaline Phosphatase 273 H (38-126) U/L C-Reactive Protein 1.8 H (<1.0) mg/dL Total Protein 7.1 (6.3-8.2) g/dL Albumin 3.7 (3.5-5.1) g/dL Urine Color Yellow (Yellow) Urine Appearance Clear (Clear) Urine pH 5.5 (5.0-9.0) Ur Specific [place] 1.022 (1.001-1.035) Urine Protein Negative (Negative) mg/dL Urine Glucose (UA) Negative (Negative) mg/dL Urine Ketones Negative (Negative) mg/dL Ur Blood (Man) Negative (Negative) Urine Nitrate Negative (Negative) Urine Bilirubin Negative (Negative) Urine Urobilinogen 0.2 (<2.0) mg/dL Leukocyte Esterase Rfl Negative (Negative) LARY/UL Influenza A (RT-PCR) Negative (Negative) Influenza B (RT-PCR) Negative (Negative) RSV (RT-PCR) Negative (Negative) SARS-CoV-2 RNA (RT-PCR) Negative (Negative) Discharge Plan Discharge Clinical Impression: Fever of unknown origin Patient Disposition: Home Condition: Improved Instructions: Antibiotic Form, Fever in Adults (ED) Additional Instructions: Please follow-up with the family doctor/oncologist within the next 3-5 days. Return to emergency department if any new or worsening symptoms develop. Patient Language: [place] Citizen Follow-up/Referrals: PHYSICIAN NOT ON STAFF,NONSTAFF [Primary Care Provider] - 3 Days Time of Disposition: 21:29
[2024-10-13 20:03] LABS: INR 1.4; Partial Thromboplastin Time 26.5 Seconds (22.3-36.8); Prothrombin Time 16.5 Seconds (11.1-14.7)
[2024-10-13 20:09] LABS: Lactic Acid Reflex 1.6 mmol/L (0.7-2.0)
[2024-10-13 20:11] LABS: Alanine Aminotransferase 38 U/L (6-50); Albumin Level 3.7 g/dL (3.5-5.1); Alkaline Phosphatase 273 U/L (38-126); Anion Gap 10 mmol/L (4-12); Aspartate Amino Transferase 48 U/L (17-59); Bilirubin,Total 0.7 mg/dL (0.2-1.3); Blood Urea Nitrogen 36 mg/dL (9-20); CRP 1.8 mg/dL (<1.0); Carbon Dioxide 19 mmol/L (22-30); Chloride 103 mmol/L (98-107); Estimated CRCL calculation 43 ml/min; Estimated Glomerular Filt Rate 50; Glucose 123 mg/dL (65-110); Magnesium 1.8 mg/dL (1.6-2.3); Sodium 132 mmol/L (137-145); Total Protein 7.1 g/dL (6.3-8.2)
[2024-10-13 20:45] LABS: Influenza A QL RT-PCR Negative (Negative); Influenza B QL RT-PCR Negative (Negative); RSV RNA, RT-PCR Negative (Negative); SARS-CoV-2 RNA PCR Negative (Negative)
[2024-10-13 21:07] LABS: Add Urine Microscopic? NO; Appearance Urine Clear (Clear); Bilirubin Urine Negative (Negative); Blood Urine Negative (Negative); Color Urine Yellow (Yellow); Glucose Urine UA Negative (Negative); Ketones Urine Negative (Negative); Leukocyte Esterase Ur Negative LEU/UL (Negative); Nitrate Urine Negative (Negative); Protein Urine Negative (Negative); Specific Grav Ur 1.022 (1.001-1.035); Urobilinogen Urine 0.2 mg/dL (<2.0); pH Urine 5.5 (5.0-9.0)
== END 2024-10-13 21:53 | disposition home or self-care (01) ==
PROVIDERS: Emergency Provider Emergency Medicine
DX: R50.9 Fever, unspecified (principal); Z20.822 Contact with and (suspected) exposure to COVID-19; Z79.60 Long term (current) use of unspecified immunomodulators and immunosuppressants
CPT/HCPCS: 36415; 71045; 80053; 81003; 83605; 83735; 85025; 85610; 85730; 86140; 87040; 87077; 87186; 87637; 99283

== ENCOUNTER 2024-11-05 19:10 | Emergency (ER) | payer MEDICARE, SELFPAY ==
--- NOTE | ~2024-11-05 | XR_ITS ---
XR chest 2V Ordering provider: Keanu Bran MD History: 74 years Male with . fever . Comparison: October 13, 2024 FINDINGS: MEDIASTINUM: The cardiac silhouette is not enlarged. Right Port-A-Cath with the tip overlying superio r vena cava. Left bipolar pacemaker. LUNGS: No infiltrates, effusions or pneumothorax. OTHER: No free air under the diaphragm. Degenerative changes of the spine. IMPRESSION: No acute cardiopulmonary pathology. Reviewed, dictated and finalized at location A.
[2024-11-05 19:10] VITALS: BP 154/59; PULSE 83; RESP 17; TEMP 36.6; O2SAT 96
--- OUTSIDE RECORDS SUMMARY | 2024-11-05 19:12 | XMS_ITS | Encounter Summary ---
Author Organization [facility] Healthcare Address [address] [place] [address] Care Team Providers Care Dam Worker Name Role Phone Gilberto Martinez MD Primary Care Provider Rossi BLACK MD, Zane Morataya Unavailable [phone] Raudel Childers MD Unavailable [phone] Chris Hart MD Unavailable Ely Tejada Unavailable Charlee Mcmillan Unavailable Unavailable Mariama Parisi RN Unavailable [phone] Agustina Li MD PhD Unavailable [phone] Agustina Li MD PhD Unavailable Encounter Details Date Type Department Care Team (Latest Contact Info) Description 10/07/2024 Results Follow-Up [facility] Transplant Liver [address] [facility] [phone] [place] [address] Alethea Burch, ALMITA Cancer antigen 19-9, Comprehensive metabolic panel, CBC with auto differential, Additional followed-up results: 9 Social History Tobacco Use Types Packs/Day Years [...] materials from doctor or pharmacy Sometimes 09/08/2024 [facility] Utilities Answer Date Recorded In the past 12 months has th e [employer], [employer], oil, or water [employer] threatened to shut off services in [...] How often do you attend chur or latter-day services? More than 4 times per year [...] Date Recorded PHQ-2 Total Score 0 03/16/2024 [facility] - Occupational Stress Questionnaire Answer Date Recorded [...] any time in the past 12 m [facility], were you homeless or living in a [facility]p (including now)? No 08/24/2024 Personal Safety Answer Date Recorded Have you ever been in or are you currently in a harmful physical or emotional relationship or is someone making you feel afraid or unsafe? 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 difficile suspected 10/17/2024 10/17/202410/17 7:00 PM CDT COVID: Suspected 11/01/2024 11/01/2024 11/01/2024 8:52 PM CDT documented as of this encounter Care Teams Dam Worker Relationship Specialty Start Date End Date Gilberto Martinez MD [address] [facility] [address] [place] [address] PCP - General 07/11/16 Zane Richey III, MD [address] [facility] [address] [place] [address] Consulting Physician Cardiology 05/18/21 Raudel Childers MD [id number] [place] [address] Consulting Physician Colon and Rectal Surgery 12/26/21 Chris Hart MD [address] [facility] [address] [place] [address] Automobile Club Membership Sales Agent Cardiology 03/17/24 Ely Tejada PA [id number] [place] [address] Referring Physician Physician Technical Operations Specialist 04/09/24 Charlee Mcmillan RMA Surgical Prehabilitation and Readiness (SPAR) Coordinator 06/11/24 Mariama Parisi, RN [address] [facility] [address] [place] [address] Grades 7 And 8 Teacher 08/07/24 5 Agustina Li MD PhD [id number] [place] [address] Medical Oncologist/Etcher Machine Medical Oncology 09/09/24 Agustina Li MD PhD [address] [facility] [address] [place] [address] Medical Oncologist/Etcher Machine Medical Oncology 10/07/24 10/16/24 documented as of this encounter
--- OUTSIDE RECORDS SUMMARY | 2024-11-05 19:12 | XMS_ITS | Encounter Summary ---
Author Organization [facility] Address [address] [place] [address] Phone Care Team Providers Care Data Management Consultant Name Role Phone Gilberto Martinez MD Primary Care Provider Rossi BLACK MD, Zane Morataya Unavailable [phone] Raudel Childers MD Unavailable Chris Hart MD Unavailable [phone] Charlee Mcmillan Unavailable Unavailable Agustina Li MD PhD Unavailable [phone] Encounter Details Date Type Department Care Team (Late st Contact Info) Description 11/05/2024 Telephone [facility] Oncology [facility] Floor [address] [place] [address] Marion Aden RN Social History Tobacco Use Types Packs/Day Years Used Date Smoking Tobacco: Former Cigarettes 0.3 23 1 968 - 1991 Pipe Cigars Smokeless Tobacco: Never OASIS D0700: Social Isolation Answer Da te Recorded Frequency of experiencing loneliness or isolatio n Never 11/05/2024 OASIS A1250: Transportation Answer Date Recorded Lack of Transportation (Medical) No 11/05/2024 Lack of Transportation (Non-Medical) No 11/05/2024 Patient Unable or Declines to Respond No 11/05/2024 OASIS B1300: Health Literacy Answer Eldon e Recorded Frequency of needing help to read materials from doctor or pharmacy Never 11/05/2024 [facility] Utilities Answer Date Recorded In the past 12 months has th e electric, gas, oil, or water company threatened to shut off services in your home? No 10/19/2024 Humiliation, Afraid, Rape, and Kick questionnair e [...] neighbors? More than three times a week 10/19/2024 How often do you get togethe r with friends or relatives? More than three times a week 10/19/2024 How often do you attend chur ch or moravian services? More than 4 times per year 10/19/2024 Do you belong to any clubs o r organizations such as episcopalian groups, unions, fraternal or athletic groups, or school groups? Yes 10/19/2024 How often do you attend meet ings of the clubs or organizations you belong to? More than 4 times per year 10/19/2024 Are you , , di vorced, , never , or living with a partner? 10/19/2024 AUDIT-C Answer Date Recorded Q1: How often do you have a drink containing alcohol? Never 10/15/2024 Q2: How many drinks containi ng alcohol do you have on a typical day when you are drinking? Patient does not drink Q3: How often do you have si x or more drinks on one occasion? Never 10/15/2024 Overall Financial Resource Strain (CARDIA) Answe r Date Recorded How hard is it for you to pa y for the very basics like food, housing, medical care, and heating? Not hard at all 10/19/2024 PHQ-2 Answer Date Recorded PHQ-2 Total Score 0 10/19/2024 [facility] - Occupational Stress [...] the money to buy more. Never true 10/20/19 25 Within the past 12 months, t he food you bought just didn't last and you didn't have money to get more. Never true 10/19/2024 [facility] - Transportation Answer Date Re corded In the past 12 months, has l ack of transportation kept you from medical appointments or from getting medications? No 10/04 In the past 12 months, has l ack of transportation kept you from meetings, work, or from getting things needed for daily living? No 10/19/2024 Housing Stability Vital Sign Answer Eldon e Recorded In the last 12 months, was t here a time when you were not able to pay the mortgage or rent on time? No 10/19/2024 In the past 12 months, how m any times have you moved where you were living? 0 10/19/2024 At any time in the past 12 m [facility], were you homeless or living in a care home (including now)? No 10/19/2024 Personal Safety Answer Date Recorded Have you ever been in or are you currently in a harmful physical or emotional relationship or is someone making you feel afraid or unsafe? 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 We discussed blood culture results as negative to date, with final result pending for later today. We discussed plan to hold Capecitabine until 48 hours post final blood culture results. We discussed that he is notified per the transplant team that he is no longer eligible for transplant. I let him know our care team is aware and Dr. Li will discuss with him further at [facility] on 11/11/2024. Patient states he is interested in Palliative chemotherapy. We discussed that I will contact him on 11/09/2024 to confirm final blood culture and confirmation of whether he will resume the Capecitabine or want until [facility] on 11/16. Patient verbalized understanding. 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) documented as of this encounter Visit Diagnoses Not on filedocumented in this encounter Care Teams Data Management Consultant Relationship Specialty Start Date End Date Gilberto Martinez MD [address] [facility] [address] [place] [address] PCP - General 07/11/16 Zane Richey III, MD [address] [facility] [address] [place] [address] Consulting Physician Cardiology 05/18/21 Raudel Childers MD [id number] [place] [address] Consulting Physician Colon and Rectal Surgery 12/26/21 Chris Hart MD [address] [facility] [address] [place] [address] Pension Agent Cardiology 03/17/24 Charlee Mcmillan RMA Surgical Prehabilitation and Readiness (SPAR) Coordinator 06/11/24 Agustina Li MD PhD [address] [place] [address] Medical Oncologist/Electro Winning Operator Medical Oncology 09/09/24 documented as of this encounter
--- OUTSIDE RECORDS SUMMARY | 2024-11-05 19:12 | XMS_ITS | Encounter Summary ---
Author Organization [facility] Address [address] [place] [address] Phone Care Team Providers Care Industrial Technology Education Teacher Name Role Phone Gilberto Martinez MD Primary Care Provider Rossi BLACK MD, Zane Morataya Unavailable [phone] Raudel Childers MD Unavailable Chris Hart MD Unavailable Charlee Mcmillan Unavailable Unavailable Mariama Parisi RN Unavailable [phone] Agustina Li MD PhD Unavailable Encounter Details Date Type Department Care Team (Late st Contact Info) Description 10/20/2024 Telephone [facility] Cardiology [address] [facility] Advanced Medicine 8th [place] [address] [place] [address] Chantell Alexis Social History Tobacco Use Types Packs/Day Years Used Date Smoking Tobacco: Former Cigarettes 0.3 23 1 968 - 1991 Pipe Cigars Smokeless Tobacco: Never OASIS D0700: Social Isolation Answer Da te Recorded Frequency of experiencing loneliness or isolatio n Never 10/24/2024 OASIS A1250: Transportation Answer Date Recorded Lack of Transportation (Medical) No 10/24/2024 Lack of Transportation (Non-Medical) No 10/24/2024 Patient Unable or Declines to Respond No 10/24/2024 OASIS B1300: Health Literacy Answer Eldon e Recorded Frequency of needing help to read materials from doctor or pharmacy Sometimes 10/24/2024 [facility] Utilities Answer Date Recorded In the past 12 months has th e [employer], gas, oil, or water company threatened to [...] often do you attend chur ch or baptist services? More than 4 times per year 10/19/2024 Do you belong to any clubs o r organizations such as roman catholic groups, unions, fraternal or athletic groups, or [...] Date Recorded PHQ-2 Total Score 0 10/19/2024 [facility]at ional Health - Occupational Stress [...] time in the past [address] [facility], were you homeless or living in a fpc (including now)? No 10/19/2024 Personal Safety Answer Date Recorded Have you ever been in or are you currently in a harmful physical or emotional relationship or is someone making you feel afraid or unsafe? 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 BLOCK SORTER Gender Identity Male 12/06/2019 4:39 PM CDT Sexual Orientation Straight 12/06/2019 4: 39 PM CDT documented as of this encounter Miscellaneous Notes * Telephone Encounter - Alee Ceja - 10/20/2024 10:42 AM CDT PAGED TO EMA/RACHEL * Telephone Encounter - Chantell Alexis - 10/20/2024 10:32 AM CDT CARDIOLOGY CONSULT 10/20/2024 RECEIVED BY: Chantell Alexis IS THE PATIENT CURRENTLY UNDERGOING CANCER TREATMENTS? yes TYPE OF CONSULT: Card-Onc CALLER'S NAME: Dr. Edgardo Castro CALLER'S PAGER: [phone] PATIENT'S NAME: Romain Bazan : 1950 CAMPUS: [facility] PATIENT'S LOCATION: [address] [place] [address] REASON FOR CONSULT: MARK ATTENDING PHYSICIAN: Dr. 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) documented as of this encounter Visit Diagnoses Not on filedocumented in this encounter Additional Health Concerns Infection Onset Date Last Indicated Resolved Time COVID: Suspected 11/01/2024 11/01/2024 11/01/2024 8:52 PM CDT documented as of this encounter Care Teams Industrial Technology Education Teacher Relationship Specialty Start Date End Date Gilberto Martinez MD [address] [facility] [address] [place] [address] PCP - General 07/11/16 Zane Richey III, MD [address] [facility] [address] [place] [address] Consulting Physician Cardiology 05/18/21 Raudel Childers MD [phone] [place] [address] Consulting Physician Colon and Rectal Surgery 12/26/21 Chris Hart MD [address] [facility] [address] [place] [address] Laundry Or Dry Cleaners Counter Clerk Cardiology 03/17/24 Charlee Mcmillan RMA Surgical Prehabilitation and Readiness (SPAR) Coordinator 06/11/24 Mariama Parisi, RN [address] [facility] [address] [place] [address] Wood Grinder Operator 08/07/24 5 Agustina Li MD PhD [address] [place] [address] Medical Oncologist/Electric Motor Repair Supervisor Medical Oncology 09/09/24 documented as of this encounter
--- OUTSIDE RECORDS SUMMARY | 2024-11-05 19:12 | XMS_ITS | Encounter Summary ---
Author Organization [facility] Healthcare Address [address] [place] [address] Care Team Providers Care Wool Shearing Supervisor Name Role Phone Gilberto Martinez MD Primary Care Provider Rossi BLACK MD, Zane Morataya Unavailable [phone] Raudel Childers MD Unavailable [phone] Chris Hart MD Unavailable Ely Tejada Unavailable Charlee Mcmillan Unavailable Unavailable Mariama Parisi RN Unavailable Agustina Li MD PhD Unavailable Agustina Li MD PhD Unavailable Encounter Details Date Type Department Care Team (Late st Contact Info) Description 10/12/2024 Results Follow-Up [facility] Transplant Liver 45[address] [facility] [address] [id number] [place] [address] Alethea Burch, RN CT Chest Abdomen Pelvis [...] materials from doctor or pharmacy Sometimes 09/08/2024 [facility] Utilities Answer Date Recorded In the past 12 months has th e [employer], [employer], oil, or water [employer] threatened to shut off services in your [...] Date Recorded PHQ-2 Total Score 0 03/16/2024 [facility] Occupat [facility] - Occupational Stress Questionnaire Answer Date [...] any time in the past 12 m [facility], were you homeless or living in a retirement (including now)? No 08/24/2024 Personal Safety Answer Date Recorded Have you ever been in or are you currently in a harmful physical or emotional relationship or is someone making you feel afraid or unsafe? 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 CUTTER Gender Identity Male 12/06/2019 4:39 PM CDT Sexual Orientation Straight 12/06/2019 4: 39 PM CDT documented as of this encounter Functional Status documented as of this encounter Plan of [...] documented as of this encounter Care Teams Wool Shearing Supervisor Relationship Specialty Start Date End Date Gilberto Martinez MD [address] [facility] [address] [place] [address] PCP - General 07/11/16 Zane Richey III, MD [address] [facility] [address] [place] [address] Consulting Physician Cardiology 05/18/21 Raudel Childers MD [address] [id number] [place] [address] Consulting Physician Colon and Rectal Surgery 12/26/21 Chris Hart MD 49[address] [facility] 8[address] [place] [address] Vendor Analyst Cardiology 03/17/24 Ely Tejada PA [address] [id number] [place] [address] Referring Physician Physician Stiff Neck Loader 04/09/24 Charlee Mcmillan RMA Surgical Prehabilitation and Readiness (SPAR) Coordinator 06/11/24 Mariama Parisi, RN 4590 [facility] [address] [place] [address] Fish Peddler 08/07/24 5 Agustina Li MD PhD [address] [place] [address] Medical Oncologist/Washer Cutter Medical Oncology 09/09/24 Agustina Li MD PhD 49[address] [facility] [address] [place], [place] [address] Medical Oncologist/Washer Cutter Medical Oncology 10/07/24 10/16/24 documented as of this encounter
--- OUTSIDE RECORDS SUMMARY | 2024-11-05 19:12 | XMS_ITS | Encounter Summary ---
Author Organization [facility] Healthcare Address [address] [place] [address] Care Team Providers Care Tip Stretcher Name Role Phone Gilberto Martinez MD Primary Care Provider [phone] Rossi BLACK MD, Zane Morataya Unavailable [phone] Raudel Childers MD Unavailable Chris Hart MD Unavailable Ely Tejada Unavailable Charlee McmillanA Unavailable Unavailable Mariama Parisi RN Unavailable Agustina Li MD PhD Unavailable Agustina Li MD PhD Unavailable Encounter Details Date Type Department Care Team (Late st Contact Info) Description 09/17/2024 Results Follow-Up [facility] and [facility] Transplant Liver 4590 [facility] [address] [phone] [place] [address] Mariama Parisi, RN 45[address] [facility] [address] [place] [address] Cancer antigen 19-9, Comprehensive metabolic [...] materials from doctor or pharmacy Sometimes 09/08/2024 [facility] Utilities Answer Date Recorded In the past 12 months has e [employer], oil, or water [employer] threatened to shut off services in your [...] often do you attend chur ch or sabianism services? More than 4 times per year 08/24/2024 Do you belong to any clubs o r organizations such as confucianism groups, unions, fraternal or athletic groups, or [...] Date Recorded PHQ-2 Total Score 0 03/16/2024 [facility] of Occupat ional Health - Occupational [...] any time in the past 12 m [facility], were you homeless or living [...] on file Legal Sex Male 6:21 AM GRADALL OPERATOR Gender Identity Male 12/06/2019 4:39 PM [...] documented as of this encounter Care Teams Tip Stretcher Relationship Specialty Start Date End Date Gilberto Martinez MD [address] [address] PCP - General 07/11/16 Zane Richey III, MD [address] [facility] [address] [place] [address] Consulting Physician Cardiology 05/18/21 Raudel Childers MD [address] [id number] [place] [address] Consulting Physician Colon and Rectal Surgery 12/26/21 Chris Hart MD [address] [address] Processing [employer] Supervisor Cardiology 03/17/24 Ely Tejada PA [address] [id number] [place] [address] Referring Physician Physician Regional Safety Manager 04/09/24 Charlee Mcmillan RMA Surgical Prehabilitation and Readiness (SPAR) Coordinator 06/11/24 Mariama Parisi, RN 4590 [facility] [address] [place] [address] Fagoting Machine Operator 08/07/24 5 Agustina Li MD PhD [address] [place] [address] Medical Oncologist/Perianesthesia Nurse Medical Oncology 09/09/24 Agustina Li MD PhD 4921 [facility] [address] [place] [address] Medical Oncologist/Perianesthesia Nurse Medical Oncology 10/07/24 10/16/24 documented as of this encounter
--- OUTSIDE RECORDS SUMMARY | 2024-11-05 19:12 | XMS_ITS | Encounter Summary ---
Author Organization [facility] Address [address] [place] [address] Phone Care Team Providers Care Windmill Mechanic Name Role Phone Gilberto Martinez MD Primary Care Provider Rossi BLACK MD, Zane Morataya Unavailable [phone] Raudel Childers MD Unavailable [phone] Gorge Contreras MD PhD Unavailable [phone] Chris Hart MD Unavailable Mei Cohen RN Unavailable [phone] Ely Tejada Unavailable Charlee Mcmillan Unavailable Unavailable Mariama Parisi RN Unavailable [phone] Agustina Li MD PhD Unavailable Agustina Li MD PhD Unavailable [phone] Reason for Visit * Reason Onset Date Comments MARK 04/09/2024 Encounter Details Date Type Department Care Team (Late st Contact Info) Description 04/09/2024 Telephone [facility] Cardiology [address] [facility] Floor 1, [address] [place] [address] Chris Hart MD [address] [address] MARK Social History Tobacco Use Types Packs/Day Years Used Date Smoking Tobacco: Former Cigarettes 0.3 2 Q uit: 1992 Pipe Cigars Smokeless Tobacco: Never [facility] Utilities Answer Date Recorded In [...] 03/16/2024 How often do you attend chur or protestant services? More than 4 times per year 03/16/2024 Do you belong to any clubs o r organizations such as pentecostalism groups, unions, fraternal or athletic groups, or [...] Date Recorded PHQ-2 Total Score 0 03/16/2024 [facility] of Occupat ional Health - [...] time in the past 12 m [facility], were you homeless or living in [...] on file Legal Sex Male 6:21 AM HOT END OPERATOR Gender Identity Male 12/06/2019 4:39 PM CDT Sexual Orientation Straight 12/06/2019 4: 39 PM CDT documented as of this encounter Miscellaneous Notes * Telephone Encounter - Seema Mora RN - 04/09/2024 11:52 AM CST ----- Message from Aisha Delcid NP sent at 04/08/2024 5:24 PM HOT END OPERATOR ----- Could one of you please assist with scheduling this MARK for him? This would be to evaluate the mitral valve. He is having laparoscopic exploratory surgery next so would probably be looking for about a month from now, thank you ----- Message ----- From: Chris Hatr MD Sent: 04/07/2024 11:23 AM HOT END OPERATOR To: Aisha Delcid NP It's okay to set up. We had been holding off given his cancer burden and need for treatment and unclear candidacy for valve repair. While the patient seemed to be on board with that at my last appointment with him at [place], I'm not sure he is in that same mindset now based on his messages since then. If he wants a work-up, definitely fine to proceed with the work-up and we can always hold off beforesurgery depending on where he is at from a cancer standpoint. ----- Message ----- From: Aisha Delcid NP Sent: 04/05/2024 5:22 PM HOT END OPERATOR To: Chris Hart MD Your last note said MARK would be next step for SOB eval. Has mod-severe MRCourtney Ok to set this up? I told pt I would discuss with you, thanks END OPERATOR documented in this encounter Plan of Treatment [...] suspected 08/27/2024 08/27/2024 08/28/19 9:21 PM CDT C. difficile suspected 10/17/2024 10/17/202410/17 7:00 PM CDT COVID: Suspected 11/01/2024 11/01/2024 11/01/2024 8:52 PM CDT documented as of this encounter Care Teams Windmill Mechanic Relationship Specialty Start Date End Date Gilberto Martinez MD [address] [facility] [address] [place] [address] PCP - General 07/11/16 Zane Richey III, MD [address] [facility] [address] [place] [address] Consulting Physician Cardiology 05/18/21 Raudel Childers MD [address] [id number] [place] [address] Consulting Physician Colon and Rectal Surgery 12/26/21 Gorge Contreras MD PhD [address] [place] [address] Medical Oncologist Medical Oncology 11/26/23 09/08/24 Chris Hart MD 49[address] [facility] [address] [place] [address] Respite Provider Cardiology 03/17/24 Mei Cohen, RN 4590 [facility] [address] [place] [address] Parts Delivery Driver 04/09/24 5 Ely Tejada PA [address] [id number] [place] [address] Referring Physician Physician Race Steward 04/09/24 Charlee Mcmillan RMA Surgical Prehabilitation and Readiness (SPAR) Coordinator 06/11/24 Mariama Parisi, RN 45[address] [facility] 3401 [place] [address] Parts Delivery Driver 08/07/24 5 Agustina Li MD PhD [address] [place] [address] Medical Oncologist/Threading Machine Setter Medical Oncology 09/09/24 Agustina Li MD PhD 49[address] [facility] [address] [place] [address] Medical Oncologist/Threading Machine Setter Medical Oncology 10/07/24 10/16/24 documented as of this encounter
--- OUTSIDE RECORDS SUMMARY | 2024-11-05 19:12 | XMS_ITS | Encounter Summary ---
Author Organization [facility] Healthcare Address [address] [place] [address] Care Team Providers Care Furnace Charging Machine Operator Name Role Phone Gilberto Martinez MD Primary Care Provider Rossi BLACK MD, Zane Morataya Unavailable [phone] Raudel Childers MD Unavailable Aarti Robles RN Unavailable Gorge Contreras MD PhD Unavailable [phone] Chris Hart MD Unavailable Mei Cohen RN Unavailable [phone] Ely Tejada Unavailable Charlee Mcmillan Unavailable Unavailable Mariama Parisi RN Unavailable [phone] Agustina Li MD PhD Unavailable Agustina Li MD PhD Unavailable Encounter Details Date Type Department Care Team (Late st Contact Info) Description 08/13/2023 Orders Only [facility] EpicCare Link Gilberto Martinez MD [address] [facility] [address] [place] [address] Accelerated hypertension (Primary Dx) Social History Tobacco Use Types Packs/Day Years Used Date Smoking Tobacco: Former Cigarettes Q uit: 1993 Smokeless Tobacco: Never AUDIT-C Answer Date Recorded [...] file 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 difficile suspected 08/19/2024 08/19/202408/20 3:07 AM [...] documented as of this encounter Care Teams Furnace Charging Machine Operator Relationship Specialty Start Date End Date Gilberto Martinez MD [address] [facility] [address] [place] [address] PCP - General 07/11/16 Zane Richey III, MD [address] [facility] [address] [place] [address] Consulting Physician Cardiology 05/18/21 Raudel Childers MD [address] [id number] [place] [address] Consulting Physician Colon and Rectal Surgery 12/26/21 Aarti Robles RN 4590 [facility] 5300 [place] [address] [facility] [employer] Division Manager 11/18/23 12/16/23 Gorge Contreras MD PhD [address] [place] [address] Medical Oncologist Medical Oncology 11/26/23 09/08/24 Chris Hart MD 49[address] [facility] [address] [place] [address] Manager Council Cardiology 03/17/24 Mei Cohen, RN 45[address] [facility] [address] [place] [address] Executive Vice President Business Development 04/09/24 5 Ely Tejada PA [address] [facility] 8108-09-07 [place] [address] Referring Physician Physician Adjunct Instructor Of Women'S Studies 04/09/24 Charlee Mcmillan RMA Surgical Prehabilitation and Readiness (SPAR) Coordinator 06/11/24 Mariama Parisi, RN 4590 [facility] [address] [place] [address] Executive Vice President Business Development 08/07/24 5 Agustina Li MD PhD [address] [place] [address] Medical Oncologist/Assistant Tennis Coach Medical Oncology 09/09/24 Agustina Li MD PhD 49[address] [facility] [address] [place] [address] Medical Oncologist/Assistant Tennis Coach Medical Oncology 10/07/24 10/16/24 documented as of this encounter
--- OUTSIDE RECORDS SUMMARY | 2024-11-05 19:12 | XMS_ITS | Encounter Summary ---
Author Organization [facility] Healthcare Address [address] [place] [address] Care Team Providers Care Power Checker Name Role Phone Gilberto Martinez MD Primary Care Provider Rossi BLACK MD, Zane Morataya Unavailable [phone] Raudel Childers MD Unavailable [phone] Gorge Contreras MD PhD Unavailable [phone] Chris Hart MD Unavailable Mei Cohen RN Unavailable [phone] Ely Tejada Unavailable [phone] Charlee Mcmillan Unavailable Unavailable Mariama Parisi RN Unavailable Agustina Li MD PhD Unavailable [phone] Agustina Li MD PhD Unavailable [phone] Encounter Details Date Type Department Care Team (Late st Contact Info) Description 05/29/2024 Documentation [facility] Radiation Oncology [address] [facility] [place] [address] Jamia Juarez, ALMITA Social History Tobacco Use Types Packs/Day Years Used Date Smoking Tobacco: Former Cigarettes 0.3 2 Q uit: 1992 Pipe Cigars Smokeless Tobacco: Never [facility] Utilities Answer Date Recorded In the past 12 months has e [employer], gas, oil, or water company threatened to [...] often do you attend chur ch or worship services? More than 4 times per year 03/16/2024 Do you belong to any clubs o r organizations such as episcopal groups, unions, fraternal or athletic groups, or [...] Date Recorded PHQ-2 Total Score 0 03/16/2024 [facility] of Occupat ional [facility] - Occupational Stress Questionnaire Answer Date [...] in the past 12 m [facility], were you homeless or living in a chcf (including now)? No 03/16/2024 Personal Safety Answer Date Recorded Have you ever been in or are you currently in a harmful physical or emotional relationship or is someone making you feel afraid or unsafe? 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 difficile suspected 10/17/2024 10/17/202410/17 7:00 PM CDT COVID: Suspected 11/01/2024 11/01/2024 11/01/2024 8:52 PM CDT documented as of this encounter Care Teams Power Checker Relationship Specialty Start Date End Date Gilberto Martinez MD [address] [place] [address] PCP - General 07/11/16 Zane Richey III, MD [address] [place] [address] Consulting Physician Cardiology 05/18/21 Raudel Childers MD [address] [id number] [place] [address] Consulting Physician Colon and Rectal Surgery 12/26/21 Gorge Contreras MD PhD [address] [place] [address] Medical Oncologist Medical Oncology 11/26/23 09/08/24 Chris Hart MD 49[address] [facility] [address] [place] [address] Web Press Operator Helper Offset Cardiology 03/17/24 Mei Cohen, RN 4590 [facility] [address]01 [place] [address] Phlebotomy Technologist 04/09/24 5 Ely Tejada PA [address] 8108-09-07 [place] [address] Referring Physician Physician Insurance Professional 04/09/24 Charlee Mcmillan RMA Surgical Prehabilitation and Readiness (SPAR) Coordinator 06/11/24 Mariama Parisi, RN 4590 [facility] [address] [place] [address] Phlebotomy Technologist 08/07/24 5 Agustina Li MD PhD [address] [place] [address] Medical Oncologist/Tuckpointer Cleaner Caulker Medical Oncology 09/09/24 Agustina Li MD PhD 4921 [facility] [address] [place] [address] Medical Oncologist/Tuckpointer Cleaner [place]ker Medical Oncology 10/07/24 10/16/24 documented as of this encounter
--- OUTSIDE RECORDS SUMMARY | 2024-11-05 19:12 | XMS_ITS | Encounter Summary ---
Author Organization [facility] Address [address] [place] [address] Phone Care Team Providers Care Tumbler Dyeing Machine Operator Name Role Phone Gilberto Martinez MD Primary Care Provider Rossi BLACK MD, Zane Morataya Unavailable [phone] Raudel Childers MD Unavailable Chris Hart MD Unavailable Ely Tejada Unavailable Charlee Mcmillan Unavailable Unavailable Mariama Parisi RN Unavailable Agustina Li MD PhD Unavailable [phone] Agustina Li MD PhD Unavailable Encounter Details Date Type Department Care Team (Late st Contact Info) Description 10/13/2024 Telephone [facility] Oncology [address] [facility] Floor [address] [place] [address] Bebe Sage, RN Social History Tobacco Use Types Packs/Day [...] materials from doctor or pharmacy Sometimes 09/08/2024 [facility] Utilities Answer Date Recorded In the past 12 months has th e [employer], [employer], oil, or water [employer] threatened to shut off services in your [...] How often do you attend chur or islam services? More than 4 times per year 08/24/2024 Do you belong to any clubs o r organizations such as sikhism groups, unions, fraternal or athletic groups, or [...] Date Recorded PHQ-2 Total Score 0 03/16/2024 [facility] - Occupational Stress Questionnaire Answer [...] were you homeless or living in a half-way (including now)? No 08/24/2024 Personal Safety Answer Date Recorded Have you ever been in or are you currently in a harmful physical or emotional relationship or is someone making you feel afraid or unsafe? 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 They did an x ray, labs, and urine tests. He stated that nothing was remarkable and they sent him home. He is feelingbetter this morning. Temp is 98.8 with no chills. He still state appetite can be poor at times, butthat it is nothing out of the ordinary. He already took his dose of capecitabine this morning and is about to head to his appointment with transplant. I let him know to notify us if anything changes.He understood and had no further questions at this time. I discuss with Leela and will work on getting patient's records from [place]. Nothing further todo at this time. * Telephone Encounter - Bebe Sage RN [...] AM. I advised he be seen tonight. [facility] has no appointments. He does not want to go to [facility]. He will go locally to [facility]. I asked him to please check in with his clinical team prior to taking his morning dose of capecitabine. I did speak with the RN at [facility] in triage. Messagerouted to Dr. Li's team. [...] documented as of this encounter Care Teams Tumbler Dyeing Machine Operator Relationship Specialty Start Date End Date Gilberto Martinez MD [address] [place] [address] PCP - General 07/11/16 Zane Richey III, MD [address] [place] [address] Consulting Physician Cardiology 05/18/21 Raudel Childers MD [address] [id number] [place] [address] Consulting Physician Colon and Rectal Surgery 12/26/21 Chris Hart MD 4921 [facility] [address] [place] [address] Litigation Examiner Cardiology 03/17/24 Ely Tejada PA [id number] [place] [address] Referring Physician Physician Materials Planning Analyst 04/09/24 Charlee Mcmillan RMA Surgical Prehabilitation and Readiness (SPAR) Coordinator 06/11/24 Mariama Parisi, RN 45[address] [facility] [address] [place] [address] Lunch Wagon Operator 08/07/24 5 Agustina Li MD PhD [address] [place] [address] Medical Oncologist/Public Speaking Instructor Medical Oncology 09/09/24 Agustina Li MD PhD 49[address] [facility] [address] [place] [address] Medical Oncologist/Public Speaking Instructor Medical Oncology 10/07/24 10/16/24 documented as of this encounter
--- OUTSIDE RECORDS SUMMARY | 2024-11-05 19:12 | XMS_ITS | Clinical Summary ---
Author Organization [facility] Address [address] [place] [address] Phone Care Team Providers Care Online Education Manager Name Role Phone Gilberto Martinez MD Primary Care Provider Allergies Active Allergy Reactions Criticality Noted Date [...] Comments Blood Pressure 124/76 06/11/2022 10:40 AM OPERATIONS EXECUTIVE Pulse 68 06/11/2022 10:40 AM OPERATIONS EXECUTIVE Temperature - - Respiratory Rate - - Oxygen Saturation - - Inhaled Oxygen Concentration - - Weight 83.5 kg (184 lb) 06/11/2022 10:40 AM OPERATIONS EXECUTIVE Height 180.3 cm (5' 11) 06/11/2022 10:40 AM OPERATIONS EXECUTIVE Body Mass Index 25.66 06/11/2022 10:40 AM OPERATIONS EXECUTIVE Plan of Treatment Health Maintenance Due Date Last Done Comments Pneumococcal PPSV23/PCV13 65 + Years / Low and Medium Risk (2 of 3 - PCV20 or PCV21) 03/07/2021 03/07/2020 COVID-19 Vaccine (2023-2 5 season) 2024 11/20/2021, 03/20/2021, 07/17/2020, Additional history exists Influenza Vaccine (Season Ended) 2025 02/26/2022, 02/17/2021, 02/06/2016, Additional history exists Insurance [employer] Care Teams Online Education Manager Relationship Specialty Start Date End Date Gilberto Martinez MD [address] [facility] [address] [place] [address] PCP - General Internal Medicine 06/11/19
--- OUTSIDE RECORDS SUMMARY | 2024-11-05 19:12 | XMS_ITS | Encounter Summary ---
Author Organization [facility] Healthcare Address [address] [place] [address] Care Team Providers Care Emergency Room Rn Name Role Phone Gilberto Martinez MD Primary Care Provider Rossi BLACK MD, Zane Morataya Unavailable [phone] Raudel Childers MD Unavailable [phone] Gorge Contreras MD PhD Unavailable [phone] Chris Hart MD Unavailable Mei Cohen RN Unavailable [phone] Ely Tejada Unavailable Charlee Mcmillan Unavailable Unavailable Mariama Parisi RN Unavailable [phone] Agustina Li MD PhD Unavailable [phone] Agustina Li MD PhD Unavailable Encounter Details Date Type Department Care Team (Late st Contact Info) Description 05/29/2024 Treatment [facility] Radiation Oncology [address] [facility] [place], [place] [id number] Gorge Garza MD PhD [address] [facility] [address] [place] [address] Hilar cholangiocarcinoma (HCC) (Primary Dx) Social History Tobacco Use Types Packs/Day Years Used Date Smoking Tobacco: Former Cigarettes 0.3 2 Q uit: 1992 Pipe Cigars Smokeless Tobacco: Never [facility] Utilities Answer Date Recorded In [...] often do you attend chur ch or mu-ism services? More than 4 times per year 03/16/2024 Do you belong to any clubs o r organizations such as quaker groups, unions, fraternal or athletic groups, or [...] Date Recorded PHQ-2 Total Score 0 03/16/2024 [facility] of Occupat ional Health - Occupational Stress [...] any time in the past 12 m [facility], were you homeless or living in a correction (including now)? No 03/16/2024 Personal Safety Answer Date Recorded Have you ever been in or are you currently in a harmful physical or emotional relationship or is someone making you feel afraid or unsafe? 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 Gender Identity Male 12/06/2019 4:39 PM [...] documented as of this encounter Care Teams Emergency Room Rn Relationship Specialty Start Date End Date Gilberto Martinez MD [address] [facility] [address] [place] [address] PCP - General 07/11/16 Zane Richey III, MD [address] [facility] [address] [place] [address] Consulting Physician Cardiology 05/18/21 Raudel Childers MD [id number] [place] [address] Consulting Physician Colon and Rectal Surgery 12/26/21 Gorge Contreras MD PhD [address] [place] [address] Medical Oncologist Medical Oncology 11/26/23 09/08/24 Chris Hart MD [address] [facility] [address] [place] [address] Net C Developer Cardiology 03/17/24 Mei Cohen, RN [address] [facility] [address] [place] [address] Concrete Pump Operator 04/09/24 5 Ely Tejada PA [id number] [place] [address] Referring Physician Physician Cardiac Rehabilitation Specialist 04/09/24 Charlee Mcmillan RMA Surgical Prehabilitation and Readiness (SPAR) Coordinator 06/11/24 Mariama Parisi RN [address] [facility] [address] [place] [address] Concrete Pump Operator 08/07/24 5 Agustina Li MD PhD [address] [place] [address] Medical Oncologist/Steerer Medical Oncology 09/09/24 Agustina Li MD PhD [address] [facility] [address] [place] [address] Medical Oncologist/Steerer Medical Oncology 10/07/24 10/16/24 documented as of this encounter
--- OUTSIDE RECORDS SUMMARY | 2024-11-05 19:12 | XMS_ITS | Encounter Summary ---
Author Organization [facility] Address [address] [place] [address] Phone Care Team Providers Care Foreign Law Consultant Name Role Phone Gilberto Martinez MD Primary Care Provider Rossi BLACK MD, Zane Morataya Unavailable [phone] Raudel Childers MD Unavailable [phone] Chris Hart MD Unavailable Charlee Mcmillan Unavailable Unavailable Agustina Li MD PhD Unavailable [phone] Encounter Details Date Type Department Care Team (Late st Contact Info) Description 11/05/2024 Telephone [facility] Oncology [address] [facility] Floor 1, [address] [place] [address] Renetta Colunga, STATION ENGINEER MAIN LINE [address] [id number] Social History Tobacco Use Types Packs/Day Years [...] materials from doctor or pharmacy Never 11/05/2024 [facility] Utilities Answer Date Recorded In the past 12 months has th e [employer], gas, oil, or water company threatened to [...] 10/19/2024 How often do you attend chur or taoist services? More than 4 times per year 10/19/2024 Do you belong to any clubs o r organizations such as worship groups, unions, fraternal or athletic groups, or [...] Date Recorded PHQ-2 Total Score 0 10/19/2024 [facility] of Occupat ional Health - Occupational Stress [...] any time in the past 12 m [facility], were you homeless or living in a jail (including now)? No 10/19/2024 Personal Safety Answer Date Recorded Have you ever been in or are you currently in a harmful physical or emotional relationship or is someone making you feel afraid or unsafe? 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 I was able to reach his and I communicated with both he and his . He has a fever of 104. He has no other symptoms. [facility]24 with infectio us workup and given 1 dose of IV antibiotics. He is not currently on any oral antibiotics. Has not had any fever since the antibiotics were given and he was seen in the [facility] on 11/01/2024 until today when he has 104 F. I did call the [facility] to see if he could be evaluated and there is no availability. I did make him a wait list appointment, however given the nature of his evaluation (for a fever), he plans on going to the local ER. There is no open bed at the hospital for direct admission. Patient was advised to go to the local hospital and notes he will go to [facility], in [place], [place]. Primary oncologist team updated via [employer]. 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) documented as of this encounter Visit Diagnoses Not on filedocumented in this encounter Care Teams Foreign Law Consultant Relationship Specialty Start Date End Date Gilberto Martinez MD [address] [facility] [address] [place] [address] PCP - General 07/11/16 Zane Richey III, MD [address] [place] [address] Consulting Physician Cardiology 05/18/21 Raudel Childers MD [address] [facility] [id number] [place] [address] Consulting Physician Colon and Rectal Surgery 12/26/21 Chris Hart MD [address] [facility] [address] [place] [address] Manager Food Beverage Cardiology 03/17/24 Charlee Mcmillan RMA Surgical Prehabilitation and Readiness (SPAR) Coordinator 06/11/24 Agustina Li MD PhD [address] [place] [address] Medical Oncologist/Manager Image Medical Oncology 09/09/24 documented as of this encounter
--- OUTSIDE RECORDS SUMMARY | 2024-11-05 19:12 | XMS_ITS | Encounter Summary ---
Author Organization [facility] Healthcare Address [address] [place] [address] Care Team Providers Care Portable Pinch Riveter Name Role Phone Gilberto Martinez MD Primary Care Provider [phone] Rossi BLACK MD, Zane Morataya Unavailable [phone] Raudel Childers MD Unavailable [phone] Aarti Robles RN Unavailable Gorge Contreras MD PhD Unavailable [phone] Chris Hart MD Unavailable Mei Cohen RN Unavailable [phone] Ely Tejada Unavailable Charlee Mcmillan Unavailable Unavailable Mariama Parisi RN Unavailable Agustina Li MD PhD Unavailable [phone] Agustina Li MD PhD Unavailable [phone] Encounter Details Date Type Department Care Team (Late st Contact Info) Description 11/15/2023 Documentation [facility] [address] [place] [address] Skylar Peng, RN Social History Tobacco Use Types Packs/Day Years Used Date Smoking Tobacco: Former Cigarettes 0.3 2 Q uit: 1993 Pipe Cigars Smokeless Tobacco: Never [facility] Utilities Answer Date Recorded In the past 12 months has e [employer], [employer], oil, or water [employer] threatened to shut off services in your [...] How often do you attend chur or congregation services? More than 4 times per year 11/18/2023 Do you belong to any clubs o r organizations such as mormon groups, unions, fraternal or athletic groups, or [...] and heating? Not hard at all 11/18/2023 [facility] [place] of Occupat ional Health - Occupational Stress [...] any time in the past 12 m [facility], were you homeless or living in a nursing home (including now)? No 11/18/2023 Personal Safety Answer Date Recorded Have you ever been in or are you currently in a harmful physical or emotional relationship or is someone making you feel afraid or unsafe? 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 difficile suspected 08/19/2024 08/19/202408/20 3:07 AM [...] documented as of this encounter Care Teams Portable Pinch Riveter Relationship Specialty Start Date End Date Gilberto Martinez MD [address] [facility] [address] [place] [address] PCP - General 07/11/16 Zane Richey III, MD [address] [facility] [address] [place] [address] Consulting Physician Cardiology 05/18/21 Raudel Childers MD [id number] [place] [address] Consulting Physician Colon and Rectal Surgery 12/26/21 Aarti Robles RN [address] [facility] [address] [place] [address] SHOP Outpatient Paper And Prints Restorer 11/18/23 12/16/23 Gorge Contreras MD PhD [address] [place] [address] Medical Oncologist Medical Oncology 11/26/23 09/08/24 Chris Hart MD [address] [facility] [address] [place] [address] Guest Relations Receptionist Cardiology 03/17/24 Mei Cohen, RN [address] [facility] [address] [place] [address] Maintenance Instructor 04/09/24 5 Ely Tejada PA [address] [facility] [id number] [place] [address] Referring Physician Physician Visual Design Lead 04/09/24 Charlee Mcmillan RMA Surgical Prehabilitation and Readiness (SPAR) Coordinator 06/11/24 Mariama Parisi, RN [address] [facility] [address] [place] [address] Maintenance Instructor 08/07/24 5 Agustina Li MD PhD [address] [place] [address] Medical Oncologist/Hvac Technician Residential Medical Oncology 09/09/24 Agustina Li MD PhD [address] [facility] [address] [place] [address] Medical Oncologist/Hvac Technician Residential Medical Oncology 10/07/24 10/16/24 documented as of this encounter
--- OUTSIDE RECORDS SUMMARY | 2024-11-05 19:12 | XMS_ITS | Encounter Summary ---
Author Organization [facility] Healthcare Address [address] [place] [address] Care Team Providers Care Manager Of Clinical Name Role Phone Gilberto Martinez MD Primary Care Provider Rossi BLACK MD, Zane Morataya Unavailable [phone] Raudel Childers MD Unavailable Chris Hart MD Unavailable Charlee Mcmillan Unavailable Unavailable Agustina Li MD PhD Unavailable [phone] Reason for Visit * Auth/Cert (Routine) Specialty Diagnoses / Procedures Referred By Herminia t Referred To Contact Referral ID Status Reason Start Date Expiration Date Visits Re quested Visits Authorized [id number] 1 60 Encounter Details Date Type Department Care Team (Late st Contact Info) Description 11/05/2024 Home Care Visit [address] [address] [place] [address] Hannah Roque, DIXIE CASE COMMUNICATION Social History Tobacco Use Types Packs/Day Years [...] materials from doctor or pharmacy Never 11/05/2024 [facility] Utilities Answer Date Recorded In the past 12 months has e [employer], gas, oil, or water [employer] threatened to shut off services in your [...] any clubs o r organizations such as confucianist groups, unions, fraternal or athletic groups, or [...] Date Recorded PHQ-2 Total Score 0 10/19/2024 [facility]at [facility] - Occupational Stress Questionnaire Answer Date [...] any time in the past 12 m [facility], were you homeless or living in a penitentiary (including now)? No 10/19/2024 Personal Safety Answer Date Recorded Have you ever been in or are you currently in a harmful physical or emotional relationship or is someone making you feel afraid or unsafe? 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 Gender Identity Male 12/06/2019 4:39 PM CDT Sexual Orientation Straight 12/06/2019 4: 39 PM CDT documented as of this encounter Plan of Treatment Scheduled Procedures Name Priority Associated Diagnoses Date/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) documented as of this encounter Visit Diagnoses Not on filedocumented in this encounter Care Teams Manager Of Clinical Relationship Specialty Start Date End Date Gilberto Martinez MD [address] [facility] [address] [place] [address] PCP - General 07/11/16 Zane Richey III, MD [address] [facility] [address] [place] [address] Consulting Physician Cardiology 05/18/21 Raudel Childers MD [address] [facility] [id number] [place] [address] Consulting Physician Colon and Rectal Surgery 12/26/21 Chris Hart MD [address] [facility] [address] [place] [address] Stitch Separator Cardiology 03/17/24 Charlee Mcmillan RMA Surgical Prehabilitation and Readiness (SPAR) Coordinator 06/11/24 Agustina Li MD PhD [address] [place] [address] Medical Oncologist/Manager Applied Medical Oncology 09/09/24 documented as of this encounter
--- OUTSIDE RECORDS SUMMARY | 2024-11-05 19:12 | XMS_ITS | Encounter Summary ---
Author Organization [facility] Healthcare Address [address] [place] [address] Care Team Providers Care Roofing Supervisor Name Role Phone Gilberto Martinez MD Primary Care Provider Rossi BLACK MD, Zane Morataya Unavailable [phone] Raudel Childers MD Unavailable Gorge Contreras MD PhD Unavailable [phone] Chris Hart MD Unavailable Mei Cohen RN Unavailable [phone] Ely Tejada Unavailable Charlee Mcmillan Unavailable Unavailable Mariama Parisi RN Unavailable [phone] Agustina Li MD PhD Unavailable Agustina Li MD PhD Unavailable [phone] Encounter Details Date Type Department Care Team (Late st Contact Info) Description 05/29/2024 Therapy [facility] Radiation Oncology [address] [facility] [place] [address] Jamia Juarez, ALMITA Hilar cholangiocarcinoma (HCC) (Primary Dx) Social History Tobacco Use Types Packs/Day Years Used Date Smoking Tobacco: Former Cigarettes 0.3 2 Q uit: 1992 Pipe Cigars Smokeless Tobacco: Never [facility] Utilities Answer Date Recorded In the past 12 months has th e [employer], [employer], [employer], or water [employer] threatened to shut off services in your [...] How often do you attend chur or buddhism services? More than 4 times per year 03/16/2024 Do you belong to any clubs o r organizations such as evangelical groups, unions, fraternal or athletic groups, or [...] Date Recorded PHQ-2 Total Score 0 03/16/[address] [facility] - Occupational Stress Questionnaire Answer [...] time in the past 12 m [facility], were you homeless or living in a long term (including now)? No 03/16/2024 Personal Safety Answer Date Recorded Have you ever been in or are you currently in a harmful physical or emotional relationship or is someone making you feel afraid or unsafe? 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 Gender Identity Male 12/06/2019 4:39 PM [...] came to Inpatient area to meet with S BRAKE OPERATOR documented in this encounter Plan of [...] documented as of this encounter Care Teams Roofing Supervisor Relationship Specialty Start Date End Date Gilberto Martinez MD [address] [facility] [address] [place] [address] PCP - General 07/11/16 Zane Richey III, MD [address] [facility] [address] [place] [address] Consulting Physician Cardiology 05/18/21 Raudel Childers MD [id number] [place] [address] Consulting Physician Colon and Rectal Surgery 12/26/21 Gorge Contreras MD PhD [address] [place] [address] Medical Oncologist Medical Oncology 11/26/23 09/08/24 Chris Hart MD [address] [facility] [address] [place] [address] Television Equipment Operator Cardiology 03/17/24 Mei Cohen, ALMITA [address] [facility] [address] [place] [address] Bagman/Woman 04/09/24 5 Ely Tejada PA [id number] [place] [address] Referring Physician Physician Linoleum Tile Floor Layer 04/09/24 Charlee Mcmillan RMA Surgical Prehabilitation and Readiness (SPAR) Coordinator 06/11/24 Mariama Parisi RN [address] [facility] [address] [place] [address] Bagman/Woman 08/07/24 5 Agustina Li MD PhD [address] [place] [address] Medical Oncologist/Writing Center Director Medical Oncology 09/09/24 Agustina Li MD PhD [address] [facility] [address] [place] [address] Medical Oncologist/Writing Center Director Medical Oncology 10/07/24 10/16/24 documented as of this encounter
--- OUTSIDE RECORDS SUMMARY | 2024-11-05 19:12 | XMS_ITS | Clinical Summary ---
Author Organization [facility] [address] Address [address] [place] [address] Care Team Providers Care Technical Support Technician Name Role Phone Unavailable Primary Care Provider [...] 07/16/1999 ZOSTER VACCINE (1 of 2) 07/16/1999 RSV VACCINE (60+ or ) (1 - 1-dose 75+ series) 2024 INFLUENZA VACCINE (#1) 2024 9, 02/05/2018, 02/06/2016 COLORECTAL SCREENING 12/20/2026 12/20/2016, 05/06/19 06 Colorectal Cancer Screening 12/20/2026 DTAP/TDAP/TD VACCINES (2 - Tdap) 02/09/2029 02/10/20 19 Insurance [facility] M[facility]
--- OUTSIDE RECORDS SUMMARY | 2024-11-05 19:12 | XMS_ITS ---
Author Organization [facility] Address [address] [place] [address] Care Team Providers Care Wardrobe Attendant Name Role Phone Gilberto Martinez MD Primary Care Provider Rossi BLACK MD, Curtis Merle Unavailable [phone] Raudel Childers MD Unavailable Chris Hart MD Unavailable Charlee Mcmillan Unavailable Unavailable Agustina Li MD PhD Unavailable [phone] Active Problems Patient Care Coordination No te Formatting of this note migh t be different from the original. Patient has a pacemaker- NO MRI Problem Noted Date Diagnosed Date (HFpEF) heart failure with preserved ejection fr action 10/15/2024 Assessment & Plan (10/23/2024 7:49 AM CDT): 09/05/23: LVEF: 66%, RV dilatation, Concentric LV remodeling, dilated LA, MR+, mild AR, mild TR. On aldactone Assessment & Plan (10/22/2024 10:33 AM CDT): 09/05/23: LVEF: 66%, RV dilatation, Concentric LV remodeling, dilated LA, MR+, mild AR, mild TR. On aldactone Assessment & Plan (10/21/2024 10:46 AM CDT): 09/05/23: LVEF: 66%, RV dilatation, Concentric LV remodeling, dilated LA, MR+, mild AR, mild TR. On aldactone Assessment & Plan (10/20/2024 10:21 AM CDT): 09/05/23: LVEF: 66%, RV dilatation, Concentric LV remodeling, dilated LA, MR+, mild AR, mild TR. On aldactone Assessment & Plan (10/19/2024 1:30 PM CDT): 09/05/23: LVEF: 66%, RV dilatation, Concentric LV remodeling, dilated LA, MR+, mild AR, mild TR. On aldactone Assessment & Plan (10/18/2024 11:31 AM CDT): 09/05/23: LVEF: 66%, RV dilatation, Concentric LV remodeling, dilated LA, MR+, mild AR, mild TR. On aldactone Assessment & Plan (10/17/2024 12:39 PM CDT): 09/05/23: LVEF: 66%, RV dilatation, Concentric LV remodeling, dilated LA, MR+, mild AR, mild TR. On aldactone, hold during admission. Assessment & Plan (10/16/2024 3:04 PM CDT): 09/05/23: LVEF: 66%, RV dilatation, Concentric LV remodeling, dilated LA, MR+, mild AR, mild TR. On aldactone, hold during admission. Assessment & Plan (10/15/2024 8:47 PM CDT): 09/05/23: LVEF: 66%, RV dilatation, Concentric LV remodeling, dilated LA, MR+, mild AR, mild TR. On aldactone, hold during admission. Acute hypoxemic respiratory failure 09/03/2024 Assessment & [...] be able to pay for it at or); keep only loperamide as prn. Assessment & [...] be able to pay for it at or); keep only loperamide as prn. Assessment & [...] 9 y - s/p Vit K in [facility]. S/p vitamin K 2.5 mg oral once [...] 9 y - s/p Vit K in [facility]. S/p vitamin K 2.5 mg oral once 08/22, s/p Vit K 10 IV 08/23 - INR 1.63 08/24-- Resumed warfarin home dose 2 mg daily (08/24-p) - Daily INR Assessment & Plan (09/05/2024 11:31 AM CDT): - Secondary to nausea/vomiting/diarhea while on warfarin. INR > 9 y - s/p Vit K in [facility]. S/p vitamin K 2.5 mg oral once [...] 9 y - s/p Vit K in [facility]. S/p vitamin K 2.5 mg oral once 08/22, s/p Vit K 10 IV 08/23 - INR 1.63 08/24-- Resumed warfarin home dose 2 mg daily (08/24-p) - Daily INR Assessment & Plan (09/02/2024 10:30 AM CDT): - Secondary to nausea/vomiting/diarhea while on warfarin. INR > 9 y - s/p Vit K in [facility]. S/p vitamin K 2.5 mg oral once 08/22, s/p Vit K 10 IV 08/23 - INR 1.63 08/24-- Resumed warfarin home dose 2 mg daily (08/24-p) - Daily INR Assessment & Plan (09/01/2024 4:08 PM CDT): - Secondary to nausea/vomiting/diarhea while on warfarin. INR > 9 y - s/p Vit K in [facility]. S/p vitamin K 2.5 mg oral once 08/22, s/p Vit K 10 IV 08/23 - INR 1.63 08/24-- Resumed warfarin home dose 2 mg daily (08/24-p) - Daily INR Assessment & Plan (08/31/2024 11:42 AM CDT): - Secondary to nausea/vomiting/diarhea while on warfarin INR > 9 y - s/p Vit K in [facility] S/p vitamin K 2.5 mg oral once 08/22, s/p Vit K 10 IV 08/23 INR 1.63 08/24-- Resumed warfarin home dose 2 mg daily (08/24-p) Daily INR See atrial fibrillation Assessment & Plan (08/30/2024 12:11 PM CDT): - Secondary to nausea/vomiting/diarhea while on warfarin INR > 9 y - s/p Vit K in [facility] S/p vitamin K 2.5 mg oral once 08/22, s/p Vit K 10 IV 08/23 INR 1.63 08/24-- Resumed warfarin home dose 2 mg daily (08/24-p) Daily INR Assessment & Plan (08/29/2024 1:59 PM CDT): - Secondary to nausea/vomiting/diarhea while on warfarin INR > 9 y - s/p Vit K in [facility] S/p vitamin K 2.5 mg oral once 08/22, s/p Vit K 10 IV 08/23 INR 1.63 08/24-- Resumed warfarin home dose 2 mg daily (08/24-p) Daily INR Assessment & Plan (08/28/2024 5:10 PM CDT): - Secondary to nausea/vomiting/diarhea while on warfarin INR > 9 y - s/p Vit K in [facility] S/p vitamin K 2.5 mg oral once 08/22, s/p Vit K 10 IV 08/23 INR 1.63 08/24-- Resumed warfarin home dose 2 mg daily (08/24-p) Daily INR Assessment & Plan (08/27/2024 6:05 PM CDT): - Secondary to nausea/vomiting/diarhea while on warfarin INR > 9 y - s/p Vit K in [facility] S/p vitamin K 2.5 mg oral once 08/22, s/p Vit K 10 IV 08/23 INR 1.63 08/24-- Resumed warfarin home dose 2 mg daily (08/24-p) Daily INR Assessment & Plan (08/26/2024 5:10 PM CDT): - Secondary to nausea/vomiting/diarhea while on warfarin INR > 9 y - s/p Vit K in [facility] S/p vitamin K 2.5 mg oral once 08/22, s/p Vit K 10 IV 08/23 INR 1.63 08/24-- Resumed warfarin home dose 2 mg daily (08/24-p) Daily INR Assessment & Plan (08/25/2024 6:44 PM CDT): - Secondary to nausea/vomiting/diarhea while on warfarin INR > 9 y - s/p Vit K in [facility] S/p vitamin K 2.5 mg oral once 08/22, s/p Vit K 10 IV 08/23 INR 1.63 08/24-- Resumed warfarin home dose 2 mg daily (08/24-p) Daily INR Assessment & Plan (08/24/2024 1:31 PM CDT): - Secondary to nausea/vomiting/diarhea while on warfarin INR > 9 y - s/p Vit K in [facility] S/p vitamin K 2.5 mg oral once 08/22, s/p Vit K 10 IV 08/23 INR 1.63 08/24-- Resumed warfarin home dose 2 mg daily (08/24-p) Assessment & Plan (08/23/2024 12:11 PM CDT): - Secondary to nausea/vomiting/diarrhea while on warfarin INR > 9 y - s/p Vit K in [facility] - , continue to hold warfarin, bleeding precautions ordered Ordered vitamin K 2.5 mg oral once 08/22 INR more than 9 today, still having poor oral intake with diarrhea, will give IV vitamin K 10 mg once 08/23 Assessment & Plan (08/22/2024 12:03 PM CDT): - Secondary to nausea/vomiting/diarrhea while on warfarin INR > 9 y - s/p Vit K in [facility] - , continue to hold warfarin, bleeding precautions ordered Ordered vitamin K 2.5 mg oral once 08/22 Oral intake encouraged. Assessment & Plan (08/21/2024 9:15 PM CDT): - INR > 9 with hematuria noted recently - s/p Vit K in [facility] - Trend INR in AM, continue to [...] - Presume will improve with declining INR Nonrheumatic mitral valve regurgitation 06/22/19 25 Encounter for monitoring sotalol therapy 025 Assessment & Plan (06/09/2024 8:50 PM ARTIFICIAL BREEDING TECHNICIAN): -Remains compliant sotalol -increase to 80 mg [...] 7 Assessment & Plan (03/16/2024 5:32 PM ARTIFICIAL BREEDING TECHNICIAN): - H/H- 8.01/30 Monitor CBC closely Lactic acidosis 03/15/2024 Assessment & Plan (03/16/2024 5:29 PM ARTIFICIAL BREEDING TECHNICIAN): Lactate 4 in [facility]. Reports normal PO intake. Improved to 2.3 after 1L IVF. Unclear etiology. Lactate lateralized on a.m. labs Hypomagnesemia 03/10/2024 Hypophosphatemia 02/11/2024 Dehydration 02/10/2024 Mood disorder 01/18/2024 Assessment & Plan (01/18/2024 8:13 PM CDT): Continue home citalopram Shortness of breath 01/18/2024 Assessment & Plan (03/16/2024 5:31 PM ARTIFICIAL BREEDING TECHNICIAN): P/w SOB, fatigue, generalized weakness. Similar episodes in the past w/ unremarkable workup. 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 Since then he has underwent 8 cycles of Gemcitabine + cisplatin + nab-paclitaxel and is currently on maintenance capecitabine and is awaiting transplant. He was recently adm to [facility] from 08/21 - 09/07/24 w/ N/V/D, CT w/ proctocolitis, likely infectious or inflammatory. Diarrhea was unresponsive to supportive measures, including empiric antibiotics, imodium, lomotil and tincture of opium, stools studies all negative, Flex sigmoidoscopy negative. Diarrhea believed to be related to capecitabine. Most recently, [id number] was up trending and he underwent CT a/p on 10/12 with stable hilar colangio S/P ERCP and stent exchange on 10/15 at [facility] Currently he remains on reduced dose capecitabine (reduced dose), q2 weeks Outpatient hepatology team and cardiology team discussing when would be the best time for liver transplant Assessment & Plan (10/22/2024 10:33 AM CDT): Follows Dr. 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 Since then he has underwent 8 cycles of Gemcitabine + cisplatin + nab-paclitaxel and is currently on maintenance capecitabine and is awaiting transplant. He was recently adm to [facility] from 08/21 - 09/07/24 w/ N/V/D, CT w/ proctocolitis, likely infectious or inflammatory. Diarrhea was unresponsive to supportive measures, including empiric antibiotics, imodium, lomotil and tincture of opium, stools studies all negative, Flex sigmoidoscopy negative. Diarrhea believed to be related to capecitabine. Most recently, [id number] was up trending and he underwent CT a/p on 10/12 with stable hilar colangio S/P ERCP and stent exchange on 10/15 at [facility] Currently he remains on reduced dose capecitabine (reduced dose), q2 weeks Outpatient hepatology team and cardiology team discussing when would be the best time for liver transplant Assessment & Plan (10/21/2024 10:46 AM CDT): Follows Dr. 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 Since then he has underwent 8 cycles of Gemcitabine + cisplatin + nab-paclitaxel and is currently on maintenance capecitabine and is awaiting transplant. He was recently adm to [facility] from 08/21 - 09/07/24 w/ N/V/D, CT w/ proctocolitis, likely infectious or inflammatory. Diarrhea was unresponsive to supportive measures, including empiric antibiotics, imodium, lomotil and tincture of opium, stools studies all negative, Flex sigmoidoscopy negative. Diarrhea believed to be related to capecitabine. Most recently, [id number] was up trending and he underwent CT a/p on 10/12 with stable hilar colangio S/P ERCP and stent exchange on 10/15 at [facility] Currently he remains on reduced dose capecitabine (reduced dose), q2 weeks Outpatient hepatology team and cardiology team discussing when would be the best time for liver transplant Assessment & Plan (10/20/2024 10:21 AM CDT): Follows Dr. 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 Since then he has underwent 8 cycles of Gemcitabine + cisplatin + nab-paclitaxel and is currently on maintenance capecitabine and is awaiting transplant. He was recently adm to [facility] from 08/21 - 09/07/24 w/ N/V/D, CT w/ proctocolitis, likely infectious or inflammatory. Diarrhea was unresponsive to supportive measures, including empiric antibiotics, imodium, lomotil and tincture of opium, stools studies all negative, Flex sigmoidoscopy negative. Diarrhea believed to be related to capecitabine. Most recently, [id number] was up trending and he underwent CT a/p on 10/12 with stable hilar colangio S/P ERCP and stent exchange on 10/15 at [facility] Currently he remains on reduced dose capecitabine (reduced dose), q2 weeks Outpatient hepatology team and cardiology team discussing when would be the best time for liver transplant Assessment & Plan (10/19/2024 1:30 PM CDT): Follows Dr. 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 Since then he has underwent 8 cycles of Gemcitabine + cisplatin + nab-paclitaxel and is currently on maintenance capecitabine and is awaiting transplant. He was recently adm to [facility] from 08/21 - 09/07/24 w/ N/V/D, CT w/ proctocolitis, likely infectious or inflammatory. Diarrhea was unresponsive to supportive measures, including empiric antibiotics, imodium, lomotil and tincture of opium, stools studies all negative, Flex sigmoidoscopy negative. Diarrhea believed to be related to capecitabine. Most recently, [id number] was up trending and he underwent CT a/p on 10/12 with stable hilar colangio S/P ERCP and stent exchange on 10/15 at [facility] Currently he remains on reduced dose capecitabine (reduced dose), q2 weeks Outpatient hepatology team and cardiology team discussing when would be the best time for liver transplant Assessment & Plan (10/18/2024 11:27 AM CDT): Follows Dr. 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 Since then he has underwent 8 cycles of Gemcitabine + cisplatin + nab-paclitaxel and is currently on maintenance capecitabine and is awaiting transplant. He was recently adm to [facility] from 08/21 - 09/07/24 w/ N/V/D, CT w/ proctocolitis, likely infectious or inflammatory. Diarrhea was unresponsive to supportive measures, including empiric antibiotics, imodium, lomotil and tincture of opium, stools studies all negative, Flex sigmoidoscopy negative. Diarrhea believed to be related to capecitabine. Most recently, [id number] was up trending and he underwent CT a/p on 10/12 with stable hilar colangio S/P ERCP and stent exchange on 10/15 at [facility] Currently he remains on reduced dose capecitabine (reduced dose), q2 weeks Assessment & Plan (10/17/2024 12:39 PM CDT): Follows Dr. 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 Since then he has underwent 8 cycles of Gemcitabine + cisplatin + nab-paclitaxel and is currently on maintenance capecitabine and is awaiting transplant. He was recently adm to [facility] from 08/21 - 09/07/24 w/ N/V/D, CT w/ proctocolitis, likely infectious or inflammatory. Diarrhea was unresponsive to supportive measures, including empiric antibiotics, imodium, lomotil and tincture of opium, stools studies all negative, Flex sigmoidoscopy negative. Diarrhea believed to be related to capecitabine. Most recently, [id number] was up trending and he underwent CT a/p on 10/12 with stable hilar colangio S/P ERCP and stent exchange on 10/15 at [facility] Currently he remains on reduced dose capecitabine (reduced dose), q2 weeks Assessment & Plan (10/16/2024 3:04 PM CDT): follows Dr. 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 Since then he has underwent 8 cycles of Gemcitabine + cisplatin + nab-paclitaxel and is currently on maintenance capecitabine and is awaiting transplant. He was recently adm to [facility] from 08/21 - 09/07/24 w/ N/V/D, CT w/ proctocolitis, likely infectious or inflammatory. Diarrhea was unresponsive to supportive measures, including empiric antibiotics, imodium, lomotil and tincture of opium, stools studies all negative, Flex sigmoidoscopy negative. Diarrhea believed to be related to capecitabine. Most recently, [id number] was up trending and he underwent CT a/p on 10/12 with stable hilar colangio S/o ERCP and stent exchange on 10/15 at [facility] Currently he remains on reduced dose capecitabine (reduced dose), q2 weeks Assessment & Plan (10/15/2024 8:47 PM CDT): follows Dr. 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 Since then he has underwent 8 cycles of Gemcitabine + cisplatin + nab-paclitaxel and is currently on maintenance capecitabine and is awaiting transplant. He was recently adm to [facility] from 08/21 - 09/07/24 w/ N/V/D, CT w/ proctocolitis, likely infectious or inflammatory. Diarrhea was unresponsive to supportive measures, including empiric antibiotics, imodium, lomotil and tincture of opium, stools studies all negative, Flex sigmoidoscopy negative. Diarrhea believed to be related to capecitabine. Most recently, [id number] was up trending and he underwent CT a/p on 10/12 with stable hilar colangio S/o ERCP and stent exchange on 10/15 at [facility] Currently he remains on reduced dose capecitabine (reduced dose), q2 weeks Assessment & Plan (09/07/2024 8:02 PM CDT): [...] 6:05 PM CDT): - Established with Dr. Flowers [...] capecitabine Assessment & Plan (03/16/2024 5:32 PM ARTIFICIAL BREEDING TECHNICIAN): Dx 11/2023 after presenting with jaundice in [...] resectable. Planned for port 12/01 and start Dyer+Cis+Abrax after, which will be postponed for 1wk [...] 10/24/2023 Assessment & Plan (03/15/2024 9:54 PM ARTIFICIAL BREEDING TECHNICIAN): -cont betahistine 24mg tid (home supply) Assessment [...] 02/26/2023 Assessment & Plan (06/09/2024 8:48 PM ARTIFICIAL BREEDING TECHNICIAN): -Status post dual-chamber pacemaker placement -Device interrogation [...] 09/11/2022 Atrial fibrillation 08/08/2022 Assessment & Plan (10/23/2024 7:49 AM CDT): Continue sotalol 80 mg BID Last dose of warfarin was 10/10 and has been recommended to restart on 10/16 per patient. Takes warfarin 2 mg daily at home. Srart warfarin bridge Assessment & Plan (10/22/2024 10:33 AM CDT): Continue sotalol 80 mg BID Last dose of warfarin was 6/7 and has been recommended to restart on 10/16 per patient. Takes warfarin 2 mg daily at home. Hold off warfarin, continue therapeutic Lovenox until clarity on cultures and waiting for MARK Assessment & Plan (10/21/2024 10:46 AM CDT): Continue sotalol 80 mg BID Last dose of warfarin was 6/7 and has been recommended to restart on 10/16 per patient. Takes warfarin 2 mg daily at home. Hold off warfarin, continue therapeutic Lovenox until clarity on cultures and waiting for MARK Assessment & Plan (10/20/2024 10:21 AM CDT): Continue sotalol 80 mg BID Last dose of warfarin was 6/7 and has been recommended to restart on 10/16 per patient. Takes warfarin 2 mg daily at home. Hold off warfarin, continue therapeutic Lovenox until clarity on cultures and waiting for MARK Assessment & Plan (10/19/2024 1:30 PM CDT): Continue sotalol 80 mg BID Last dose of warfarin was 6/7 and has been recommended to restart on 10/16 per patient. Takes warfarin 2 mg daily at home. Hold off warfarin, continue therapeutic Lovenox until clarity on cultures Assessment & Plan (10/18/2024 11:27 AM CDT): Continue sotalol 80 mg BID Last dose of warfarin was 6/7 and has been recommended to restart on 10/16 per patient. Takes warfarin 2 mg daily at home. Hold off warfarin, continue therapeutic Lovenox until clarity on cultures Assessment & Plan (10/17/2024 12:39 PM CDT): Continue sotalol 80 mg BID Last dose of warfarin was 6/7 and has been recommended to restart on 10/16 per patient. Takes warfarin 2 mg daily at home. Hold off warfarin, continue therapeutic Lovenox until clarity on cultures Assessment & Plan (10/16/2024 5:03 PM CDT): Continue sotalol 80 mg BID Last dose of warfarin was 6/7 and has been recommended to restart on 10/16 per patient. Takes warfarin 2 mg daily at home. Hold off warfarin, continue therapeutic Lovenox until clarity on cultures Assessment & Plan (10/15/2024 8:47 PM CDT): Continue sotalol 80 mg BID Last dose of warfarin was 6 and has been recommended to restart on 10/16 per patient. Takes warfarin 2 mg daily at home. Assessment & Plan (09/07/2024 8:02 PM CDT): [...] above Assessment & Plan (06/09/2024 8:49 PM ARTIFICIAL BREEDING TECHNICIAN): -Status post radiofrequency catheter ablation with Dr. Richey -Remains compliant on apixaban and sotalol -Noted to have a sustained episode recently causing symptoms -Increase sotalol to 80 mg b.i.d. -Obtain an EKG after 3 doses to evaluate QT interval -Follow up in 6 months for 12 lead EKG, device interrogation, and clinic visit Assessment & Plan (03/15/2024 10:22 PM ARTIFICIAL BREEDING TECHNICIAN): S/p PVI, CTI ablation 09/09/23. Follows w/ [...] AM CDT): Asymptomatic, device-detected AF. Low burden. [id number] = 2. --Continue apixaban 5 mg BID Lightheadedness 03/12/2022 Small bowel obstruction 12/23/2021 Sinus bradycardia 05/29/2021 Sick sinus syndrome 05/19/2021 Overview (05/19/2021): Added automatically from request for surgery [id number] Assessment & Plan (03/15/2024 9:53 PM ARTIFICIAL BREEDING TECHNICIAN): -s/p PPM Assessment & Plan (01/21/2024 1:23 [...] device function. --Continue remote device f/u via [place] 05/16/2021 Advance care planning 03/22/2021 SYLVIE (obstructive sleep apnea) 06/20/2020 Assessment & Plan (10/23/2024 7:49 AM CDT): Continue home CPAP, uses 1l o2 at night with CPAP Assessment & Plan (10/22/2024 10:33 AM CDT): Continue home CPAP, uses 1l o2 at night with CPAP Assessment & Plan (10/21/2024 10:46 AM CDT): Continue home CPAP, uses 1l o2 at night with CPAP Assessment & Plan (10/20/2024 10:21 AM CDT): Continue home CPAP, uses 1l o2 at night with CPAP Assessment & Plan (10/19/2024 1:30 PM CDT): Continue home CPAP, uses 1l o2 at night with CPAP Assessment & Plan (10/18/2024 11:27 AM CDT): Continue home CPAP, uses 1l o2 at night with CPAP Assessment & Plan (10/17/2024 12:39 PM CDT): Continue home CPAP, uses 1l o2 at night with CPAP Assessment & Plan (10/16/2024 3:04 PM CDT): Continue home CPAP, uses 1l o2 at night with CPAP Assessment & Plan (10/15/2024 8:47 PM CDT): Continue home CPAP, uses 1l o2 at night with CPAP Assessment & Plan (03/16/2024 5:27 PM ARTIFICIAL BREEDING TECHNICIAN): Continue CPAP qhs Assessment & Plan (01/21/2024 1:25 PM CDT): CPAP HS Assessment & Plan (12/17/2023 4:49 AM CDT): - continue home NPPV Assessment & Plan (12/01/2023 1:51 PM CDT): -home CPAP Fatigue 02/24/2019 Gout 02/18/2018 Chronic kidney disease, stage 2 (mild) 8 Essential (primary) hypertension 10/28/2017 Assessment & Plan (10/23/2024 7:49 AM CDT): Amlodipine and HCTZ held iso hypotension prior to hospitalization Assessment & Plan (10/22/2024 10:33 AM CDT): Amlodipine and HCTZ held iso hypotension prior to hospitalization Assessment & Plan (10/21/2024 10:46 AM CDT): Amlodipine and HCTZ held iso hypotension prior to hospitalization Assessment & Plan (10/20/2024 10:21 AM CDT): Amlodipine and HCTZ held iso hypotension prior to hospitalization Assessment & Plan (10/19/2024 1:30 PM CDT): Amlodipine and HCTZ held iso hypotension prior to hospitalization Assessment & Plan (10/18/2024 11:27 AM CDT): Amlodipine and HCTZ held iso hypotension prior to hospitalization Assessment & Plan (10/17/2024 12:39 PM CDT): Amlodipine and HCTZ held iso hypotension prior to hospitalization Assessment & Plan (10/16/2024 3:04 PM CDT): Amlodipine and HCTZ held iso hypotension prior to hospitalization Assessment & Plan (10/15/2024 8:47 PM CDT): Amlodipine and HCTZ held iso hypotension prior to hospitalization Assessment & Plan (09/07/2024 8:02 PM CDT): [...] needed Assessment & Plan (03/16/2024 5:27 PM ARTIFICIAL BREEDING TECHNICIAN): Continue Amlodipine, Lisinopril, HCTZ Assessment & Plan [...] statin Assessment & Plan (03/16/2024 5:25 PM ARTIFICIAL BREEDING TECHNICIAN): Continue statin Assessment & Plan (01/18/2024 7:01 [...] C) Treatment Medications Current Day (Day 1 4, Cycle 3 - Planned for 10/22/2024) Next Day (Day 1, Cycle 4 - Planned for 11/02/2024) capecitabine (XELODA) No medications scheduled. capecitabine (XELODA) 500 mg tablet gadoxetate (EOVIST) [...] Automatic Entry Manual Entr y Fluoro Time 51 minutes 51 minutes 0 minutes Air kerma at the reference point (Ka,r) 2,400.3 mGy 2 ,364 mGy 36.3 mGy DLP 5,944 mGycm 5,944 mGycm 0 mGycm Resolved Problems Problem Noted Date Diagnosed Date Resolved Date Sepsis with gram negative bacteremia 10/15/2024 10/23/2024 Assessment & Plan (10/23/2024 7:49 AM CDT): Culture form [facility] positive for gram negative bacilli (verbal report per patient). Prior culture in 2023 positive for klebsiella (R: ampicillin) Given fever of 100.9 on 10/13, positive blood culture- for E.coli(resistant to multiple ABX), recent ERCP - will opt to treat as cholangitis., negative UA. Start Zosyn, meropenem EOT 10/22 F/u b/c on 10/15-no growth Assessment & Plan (10/22/2024 10:33 AM CDT): Culture form [facility] positive for gram negative bacilli (verbal report per patient). Prior culture in 2023 positive for klebsiella (R: ampicillin) Given fever of 100.9 on 10/13, positive blood culture- for E.coli(resistant to multiple ABX), recent ERCP - will opt to treat as cholangitis., negative UA. Start Zosyn ,--meropenem EOT 10/22 F/u b/c on 10/15-no growth Assessment & Plan (10/21/2024 10:46 AM CDT): Culture form [facility] positive for gram negative bacilli (verbal report per patient). Prior culture in 2023 positive for klebsiella (R: ampicillin) Given fever of 100.9 on 10/13, positive blood culture- for E.coli(resistant to multiple ABX), recent ERCP - will opt to treat as cholangitis., negative UA. Start Zosyn ,--meropenem EOT 10/22 F/u b/c on 10/15-ngtd Assessment & Plan (10/20/2024 10:21 AM CDT): Culture form [facility] positive for gram negative bacilli (verbal report per patient). Prior culture in 2023 positive for klebsiella (R: ampicillin) Given fever of 100.9 on 10/13, positive blood culture- for E.coli(resistant to multiple ABX), recent ERCP - will opt to treat as cholangitis., negative UA. Start Zosyn ,--meropenem EOT 10/22 F/u b/c on 10/15-ngtd Assessment & Plan (10/19/2024 1:30 PM CDT): Culture form [facility] positive for gram negative bacilli (verbal report per patient). Prior culture in 2023 positive for klebsiella (R: ampicillin) Given fever of 100.9 on 10/13, positive blood culture- for E.coli(resistant to multiple ABX), recent ERCP - will opt to treat as cholangitis., negative UA. Start Zosyn , anticipate to switch to oral once records form [place] [facility] is found. F/u b/c on 10/15-ngtd ID consult for ESBL E.coli and ABX recs. Assessment & Plan (10/18/2024 11:27 AM CDT): Culture form [facility] positive for gram negative bacilli (verbal report per patient). Prior culture in 2023 positive for klebsiella (R: ampicillin) Given fever of 100.9 on 10/13, positive blood culture- for E.coli(susceptibilities pending), recent ERCP - will opt to treat as cholangitis., negative UA. Start Zosyn , anticipate to switch to oral once records form [place] [facility] is found. Requested records 10/16 F/u b/c on 10/15-ngtd Assessment & Plan (10/17/2024 12:39 PM CDT): Culture form [facility] positive for gram negative bacilli (verbal report per patient). Prior culture in 2023 positive for klebsiella (R: ampicillin) Given fever of 100.9 on 10/13, positive blood culture- for E.coli, recent ERCP - will opt to treat as cholangitis., negative UA. Start Zosyn , anticipate to switch to oral once records form [place] [facility] is found. Requested records 10/16 F/u b/c on 10/15-ngtd Assessment & Plan (10/16/2024 3:04 PM CDT): Culture form [facility] positive for gram negative bacilli (verbal report per patient). Prior culture in 2023 positive for klebsiella (R: ampicillin) Given fever of 100.9 on 10/13, positive blood culture, recent ERCP - will opt to treathim as cholangitis., negative UA. Start Zosyn , anticipate to switch to oral once records form [place] [facility] is found. Requested records 10/16 F/u b/c on 10/15 Assessment & Plan (10/15/2024 8:47 PM CDT): Culture form [facility] positive for gram negative bacilli (verbal report per patient). Prior culture in 2023 positive for klebsiella (R: ampicillin) Given fever of 100.9 on 10/13, positive blood culture, recent ERCP - will opt to treathim as cholangitis., negative UA. Start Zosyn , anticipate to switch to oral once records form [facility] is found. F/u b/c on 10/15 IVF 500 ml over 5 hours for elevated lactate Diarrhea 08/21/2024 10/23/2024 Assessment & Plan (10/23/2024 7:49 AM CDT): Could be due to chemotherapy -C.diff-negative -PRN imodium Assessment & Plan (10/22/2024 10:33 AM CDT): Could be due to chemotherapy -C.diff-negative -PRN imodium Assessment & Plan (10/21/2024 10:46 AM CDT): Could be due to chemotherapy -C.diff-negative -PRN imodium Assessment & Plan (10/20/2024 10:21 AM CDT): Could be due to chemotherapy -C.diff-negative -PRN imodium Assessment & Plan (10/19/2024 1:30 PM CDT): Could be due to chemotherapy -C.diff-negative -PRN imodium Assessment & Plan (10/18/2024 11:27 AM CDT): Could be due to chemotherapy -C.diff-negative -PRN imodium Assessment & Plan (10/17/2024 12:39 PM CDT): Could be due to chemotherapy -C.diff ordered Assessment & Plan (08/31/2024 11:36 AM CDT): See nausea vomiting and diarrhea Assessment & Plan (08/30/2024 12:11 PM CDT): See nausea vomiting and diarrhea Assessment & Plan (08/29/2024 1:59 PM CDT): See nausea vomiting and diarrhea Assessment & Plan (08/28/2024 5:10 PM CDT): See nausea vomiting and diarrhea Assessment & Plan (08/27/2024 6:05 PM CDT): See nausea vomiting and diarrhea SSS (sick sinus syndrome) 08/13/2023 Assessment & Plan (08/13/2023 8:33 PM CDT): S/p dual PPM. Excellent device function. --Continue remote device f/u quarterly
--- OUTSIDE RECORDS SUMMARY | 2024-11-05 19:14 | XMS_ITS | Clinical Summary ---
Author Organization [facility] Address [address] [place] [address] Care Team Providers Care Riveter Portable Machine Name Role Phone Gilberto Martinez MD Primary Care Provider [phone] Rossi BLACK MD, Curtis Merle Unavailable [phone] Raudel Childers MD Unavailable [phone] Chris Hart MD Unavailable Charlee Mcmillan Unavailable Unavailable Agustina Li MD PhD Unavailable [phone] Allergies Active Allergy Reactions Criticality Noted Date Comments Cephalexin Dizziness Low 05/04/2021 Zosyn was given in 2021 & cefepime was given in 2023 Iodinated Contrast Media Hives Medium 10/13/2008 Medications citalopram (CeleXA) 20 mg tabletIndications:An xiety with Depression Take 1 tablet (20 mg total) by mouth every morning 018 Active multivitamin tabletIndications:Vi tamin Deficiency Prevention Take 1 tablet by mouth media developer before breakfast Active simvastatin (ZOCOR) 10 mg tabletIndications:hy perlipidemia Take 1 tablet (10 mg total) by mouth nightly 015 Active meclizine (ANTIVERT) 25 mg tabletIndications:Ve rtigo [...] a day as needed for diarrhea Active urea (CARMOL) 20 % creamIndications:Hyp erkeratosis,chemothe rapy induced hand foot syndrome Apply to hands and feet 3x daily and as needed. 85 g 3 Active capecitabine (XELODA) 500 mg tabletIndications:hi lar cholangiocarcinoma Indications: hilar cholangiocarci noma. Take 1500mg (3 tablets) by mouth each morning and 2000mg (4 tablets) by mouth each evening for 14 days. Then hold for 7 days. Repeat. 98 tablet Active betahistine TAKE 1 CAPSULE (24 MG TOTAL) BY MOUTH 3 TIMES A DAY WITH FOOD 270 capsule 4 Active Additional Information Patient taking differently: 8 mg oral 3 times daily, Reported on 10/16/2024 sotaloL (BETAPACE) 80 mg tabletIndications:Pr evention of Recurrent Atrial Fibrillation Take 1 tablet (80 mg total) by mouth 2 (two) times a day 180 tablet 3 025 08/17 Active al & mag hydroxide simethicone-diphenhy [id number]-gm statin (MAGIC MOUTHWASH) suspensionIndication s:oral thrush Swish and spit 15 mL every 4 (four) hours as needed (mucositis) 300 mL Active benzonatate (TESSALON) 100 mg capsuleIndications:C ough Take 1 capsule (100 mg total) by mouth 3 (three) times a day as needed for cough 50 capsule Active calcium carbonate (TUMS) 500 mg (200 mg elemental calcium) chewable tabletIndications:Hy pocalcemia Prevention Take 1 tablet/chew tab (500 mg total) by mouth 3 (three) times a day as needed for indigestion or heartburn 90 tablet 025 09/06 Active famotidine (PEPCID) 20 mg tabletIndications:ga stroesophageal reflux disease Take 1 tablet (20 mg total) by mouth daily 30 tablet 11 025 09/07 Active sodium chloride (OCEAN) 0.65 % nasal sprayIndications:Dry Nose Administer 1 spray into each nostril every 2 (two) hours as needed for congestion 15 mL 09/06 Active polyethylene glycol (MIRALAX) 17 gram/dose bulk powderIndications:co nstipation Take 17 g by mouth daily as needed (if no bowel movement in > 24 hrs) 510 g Active prochlorperazine (COMPAZINE) 5 mg tabletIndications:Ca ncer Chemotherapy-Induced [...] as needed for wheezing 3 each 4 025 09/07 Active oxygenIndications:Dy spnea Administer 1 L/min into each nostril continuously at 60,000 mL/hr 1L to 3L with activity 1L at night only Active tamsulosin (FLOMAX) 0.4 mg extended release capsuleIndications:b enign prostatic hyperplasia with lower urinary tract sx Take 1 capsule (0.4 mg total) by mouth daily with dinner 30 capsule Active ferrous sulfate 325 mg (65 mg of elemental iron) tabletIndications:Ir on Deficiency Anemia Take 1 tablet (325 mg total) by mouth 2 (two) times a day with meals RX # [id number] [facility] in home Active warfarin (COUMADIN) 1 mg tabletIndications:at rial fibrillation Take 2 tablets (2 mg total) by mouth daily 60 tablet 025 11/20 Active acetaminophen (TYLENOL) 500 mg tabletIndications:Pa in Take 500 mg by mouth every 6 (six) hours as needed for pain. Indications: pain Active budesonide EC (ENTOCORT EC) 3 mg 24 hr capsuleIndications:D rug-induced colitis,Hilar cholangiocarcinoma (HCC) Take 1 capsule (3 mg total) by mouth every morning 30 capsule 2 Active amLODIPine (NORVASC) 5 mg tabletIndications:hy pertension Take 1 tablet (5 mg total) by mouth every morning 024 10/23 Discontinued( Stop Taking at Discharge) hydroCHLOROthiazide (HYDRODIURIL) 25 mg tabletIndications:hy pertension Take 1 tablet (25 mg total) by mouth every morning 024 10/23 Discontinued( Stop Taking at Discharge) lisinopriL (PRINIVIL,ZESTRIL) 40 mg tabletIndications:hy pertension Take 1 tablet (40 mg total) by mouth every morning 024 10/15 Discontinued( Therapy completed) acetaminophen (TYLENOL) 500 mg tabletIndications:Pa in Take 1 tablet (500 mg total) by mouth every 6 (six) hours as needed for pain 16 tablet 10/15 Discontinued( Therapy completed) clobetasoL (TEMOVATE) 0.05 % creamIndications:clifford motherapy induced hand foot syndrome Apply to hands and feet 2-3 times per day 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 60 g 1 10/15 Discontinued( Therapy completed) benzocaine-menthoL (CHLORASEPTIC) 6-10 mg lozengeIndications:S ore Throat Take 1 lozenge by mouth every 3 (three) hours as needed for sore throat 100 tablet 10/15 Discontinued( Therapy completed) oxyCODONE (ROXICODONE) 5 mg immediate release tabletIndications:Pa in Take 1 tablet (5 mg total) by mouth 4 (four) times a day as needed for pain 28 tablet 025 10/15 Discontinued( Therapy completed) tamsulosin (FLOMAX) 0.4 mg extended release capsuleIndications:b enign prostatic hyperplasia with lower urinary tract sx Take 1 capsule (0.4 mg total) by mouth daily with dinner 30 capsule 025 10/09 Discontinued( Reorder) warfarin (COUMADIN) 1 mg tabletIndications:at rial fibrillation Take 1 tablet (1 mg total) by mouth daily 30 tablet 025 10/21 Discontinued ferrous sulfate 325 mg (65 mg of elemental iron) tabletIndications:Ir on Deficiency Anemia Take 1 tablet (325 mg total) by mouth 2 (two) times a day with meals 60 tablet 2 025 10/21 Discontinued temazepam (RESTORIL) 30 mg capsuleIndications:I nsomnia Take 1 capsule (30 mg total) by mouth nightly as needed for sleep 30 capsule 025 10/23 Discontinued( Stop Taking at Discharge) diphenhydrAMINE (BENADRYL) 50 mg capsule Take 1 capsule (50 mg total) by mouth once for 1 dose Take one tablet 1 hour prior to imaging 1 capsule 025 10/23 Discontinued( Stop Taking at Discharge) budesonide EC (ENTOCORT EC) 3 mg 24 hr capsuleIndications:D rug-induced colitis,Hilar cholangiocarcinoma (HCC) Take 1 capsule (3 mg total) by mouth every morning 30 capsule 025 11/02 Discontinued( Reorder) capecitabine (XELODA) 500 mg tabletIndications:hi lar cholangiocarcinoma Indications: hilar cholangiocarci noma. Take 1500mg (3 tablets) by mouth each morning and 1500mg (3 tablets) by mouth each evening for 7 days on and 7 days off. Repeat. 84 tablet 025 10/15 Discontinued( Duplicate order) capecitabine (XELODA) 500 mg tabletIndications:ca ncer Take 500 mg by mouth 6 (six) times a day. Take 3 tablets (1500 mg) by mouth each morning and 3 tablets (1500mg) by mout each evening for 7 days on and 7 days off. repeat. Indications: cancer 10/15 Discontinued( Duplicate order) warfarin (COUMADIN) 2 mg tablet Take 1 tablet (2 mg total) by mouth daily 10/23 Discontinued( Stop Taking at Discharge) ciprofloxacin (CIPRO) 500 mg tablet Take 1 tablet (500 mg total) by mouth 2 (two) times a day for 5 days 10 tablet 025 10/23 Discontinued( Stop Taking at Discharge) ciprofloxacin (CIPRO) 500 mg tablet Take 1 tablet (500 mg total) by mouth 2 (two) times a day for 10 days 20 tablet 025 10/15 Discontinued( Alternate therapy) betahistine 8 mg capsule Take by mouth 10/23 Discontinued( Stop Taking at Discharge) enoxaparin (LOVENOX) 80 mg/0.8 mL syringeIndications:a trial fibrillation Inject 0.8 mL (80 mg total) under the skin every 12 (twelve) hours for 5 days 8 mL 025 10/23 Discontinued enoxaparin (LOVENOX) 80 mg/0.8 mL syringeIndications:a trial fibrillation Inject 0.8 mL (80 mg total) under the skin every 12 (twelve) hours for 7 days 11.2 mL 025 10/30 Active Problems Patient Care Coordination No te [...] be able to pay for it at wi); keep only loperamide as prn. Assessment & [...] 9 y - s/p Vit K in [facility]. S/p vitamin K 2.5 mg [...] 9 y - s/p Vit K in [facility]. S/p vitamin K 2.5 mg oral once 08/22, s/p Vit K 10 IV 08/23 - INR 1.63 08/24-- Resumed warfarin home dose 2 mg daily (08/24-p) - Daily INR Assessment & Plan (09/05/2024 11:31 AM CDT): - Secondary to nausea/vomiting/diarhea while on warfarin. INR > 9 y - s/p Vit K in [facility]. S/p vitamin K 2.5 mg oral once 08/22, s/p Vit K 10 IV 08/23 - INR 1.63 08/24-- Resumed warfarin home dose 2 mg daily (08/24-p) - Daily INR Assessment & Plan (09/04/2024 11:35 AM CDT): - Secondary to nausea/vomiting/diarhea while on warfarin. INR > 9 y - s/p Vit K in [facility]. S/p vitamin K 2.5 mg oral once 08/22, s/p Vit K 10 IV 08/23 - INR 1.63 08/24-- Resumed warfarin home dose 2 mg daily (08/24-p) - Daily INR Assessment & Plan (09/03/2024 2:39 PM CDT): - Secondary to nausea/vomiting/diarhea while on warfarin. INR > 9 y - s/p Vit K in [facility]. S/p vitamin K 2.5 mg oral once 08/22, s/p Vit K 10 IV 08/23 - INR 1.63 08/24-- Resumed warfarin home dose 2 mg daily (08/24-p) - Daily INR Assessment & Plan (09/02/2024 10:30 AM CDT): - Secondary to nausea/vomiting/diarhea while on warfarin. INR > 9 y - s/p Vit K in [facility]. S/p vitamin K 2.5 mg oral once 08/22, s/p Vit K 10 IV 08/23 - INR 1.63 08/24-- Resumed warfarin home dose 2 mg daily (08/24-p) - Daily INR Assessment & Plan (09/01/2024 4:08 PM CDT): - Secondary to nausea/vomiting/diarhea while on warfarin. INR > 9 y - s/p Vit K in [facility]. S/p vitamin K 2.5 mg oral once 08/22, s/p Vit K 10 IV 08/23 - INR 1.63 08/24-- Resumed warfarin home dose 2 mg daily (08/24-p) - Daily INR Assessment & Plan (08/31/2024 11:42 AM CDT): - Secondary to nausea/vomiting/diarhea while on warfarin INR > 9 y - s/p Vit K in [facility] S/p vitamin K 2.5 mg oral once 08/22, s/p Vit K 10 IV 08/23 INR 1.63 08/24-- Resumed warfarin home dose 2 mg daily (08/24-p) Daily INR See atrial fibrillation Assessment & Plan (08/30/2024 12:11 PM CDT): - Secondary to nausea/vomiting/diarhea while on warfarin INR > 9 y - s/p Vit K in [facility] S/p vitamin K 2.5 mg oral once 08/22, s/p Vit K 10 IV 08/23 INR 1.63 08/24-- Resumed warfarin home dose 2 mg daily (08/24-p) Daily INR Assessment & Plan (08/29/2024 1:59 PM CDT): - Secondary to nausea/vomiting/diarhea while on warfarin INR > 9 y - s/p Vit K in [facility] S/p vitamin K 2.5 mg oral once 08/22, s/p Vit K 10 IV 08/23 INR 1.63 08/24-- Resumed warfarin home dose 2 mg daily (08/24-p) Daily INR Assessment & Plan (08/28/2024 5:10 PM CDT): - Secondary to nausea/vomiting/diarhea while on warfarin INR > 9 y - s/p Vit K in [facility] S/p vitamin K 2.5 mg oral once 08/22, s/p Vit K 10 IV 08/23 INR 1.63 08/24-- Resumed warfarin home dose 2 mg daily (08/24-p) Daily INR Assessment & Plan (08/27/2024 6:05 PM CDT): - Secondary to nausea/vomiting/diarhea while on warfarin INR > 9 y - s/p Vit K in [facility] S/p vitamin K 2.5 mg oral once 08/22, s/p Vit K 10 IV 08/23 INR 1.63 08/24-- Resumed warfarin home dose 2 mg daily (08/24-p) Daily INR Assessment & Plan (08/26/2024 5:10 PM CDT): - Secondary to nausea/vomiting/diarhea while on warfarin INR > 9 y - s/p Vit K in [facility] S/p vitamin K 2.5 mg oral once 08/22, s/p Vit K 10 IV 08/23 INR 1.63 08/24-- Resumed warfarin home dose 2 mg daily (08/24-p) Daily INR Assessment & Plan (08/25/2024 6:44 PM CDT): - Secondary to nausea/vomiting/diarhea while on warfarin INR > 9 y - s/p Vit K in [facility] S/p vitamin K 2.5 mg oral once 08/22, s/p Vit K 10 IV 08/23 INR 1.63 08/24-- Resumed warfarin home dose 2 mg daily (08/24-p) Daily INR Assessment & Plan (08/24/2024 1:31 PM CDT): - Secondary to nausea/vomiting/diarhea while on warfarin INR > 9 y - s/p Vit K in [facility] S/p vitamin K 2.5 mg oral once 08/22, s/p Vit K 10 IV 08/23 INR 1.63 08/24-- Resumed warfarin home dose 2 mg daily (08/24-p) Assessment & Plan (08/23/2024 12:11 PM CDT): - Secondary to nausea/vomiting/diarrhea while on warfarin INR > 9 y - s/p Vit K in [facility] - , continue to hold warfarin, bleeding precautions ordered Ordered vitamin K 2.5 mg oral once 08/22 INR more than 9 today, still having poor oral intake with diarrhea, will give IV vitamin K 10 mg once 08/23 Assessment & Plan (08/22/2024 12:03 PM CDT): - Secondary to nausea/vomiting/diarrhea while on warfarin INR > 9 y - s/p Vit K in [facility] - , continue to hold warfarin, bleeding precautions ordered Ordered vitamin K 2.5 mg oral once 08/22 Oral intake encouraged. Assessment & Plan (08/21/2024 9:15 PM CDT): - INR > 9 with hematuria noted recently - s/p Vit K in [facility] - Trend INR in AM, [...] 025 Assessment & Plan (06/09/2024 8:50 PM OSS ARCHITECT): -Remains compliant sotalol -increase to 80 mg [...] 7 Assessment & Plan (03/16/2024 5:32 PM OSS ARCHITECT): - H/H- 8.01/30 Monitor CBC closely Lactic acidosis 03/15/2024 Assessment & Plan (03/16/2024 5:29 PM OSS ARCHITECT): Lactate 4 in [facility]. Reports normal PO intake. Improved to 2.3 after 1L IVF. Unclear etiology. Lactate lateralized on a.m. labs Hypomagnesemia 03/10/2024 Hypophosphatemia 02/11/2024 Dehydration 02/10/2024 Mood disorder 01/18/2024 Assessment & Plan (01/18/2024 8:13 PM CDT): Continue home citalopram Shortness of breath 01/18/2024 Assessment & Plan (03/16/2024 5:31 PM OSS ARCHITECT): P/w SOB, fatigue, generalized weakness. Similar episodes in the past w/ unremarkable workup. In [facility], Tmax 99.4, satting well on [...] negative to date -given cefe x1 in [facility]; hold off on further abx [...] awaiting transplant. He was recently adm to [facility] from 08/21 - 09/07/24 w/ N/V/D, [...] ERCP and stent exchange on 10/15 at [facility] Currently he remains on reduced dose [...] awaiting transplant. He was recently adm to [facility] from 08/21 - 09/07/24 w/ N/V/D, [...] ERCP and stent exchange on 10/15 at [facility] Currently he remains on reduced dose [...] awaiting transplant. He was recently adm to [facility] from 08/21 - 09/07/24 w/ N/V/D, [...] ERCP and stent exchange on 10/15 at [facility] Currently he remains on reduced dose [...] awaiting transplant. He was recently adm to [facility] from 08/21 - 09/07/24 w/ N/V/D, [...] ERCP and stent exchange on 10/15 at [facility] Currently he remains on reduced dose [...] awaiting transplant. He was recently adm to [facility] from 08/21 - 09/07/24 w/ N/V/D, [...] ERCP and stent exchange on 10/15 at [facility] Currently he remains on reduced dose [...] awaiting transplant. He was recently adm to [facility] from 08/21 - 09/07/24 w/ N/V/D, [...] ERCP and stent exchange on 10/15 at [facility] Currently he remains on reduced dose capecitabine (reduced dose), q2 weeks Assessment & Plan (10/17/2024 12:39 PM CDT): Follows Dr. 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 Since then he has underwent 8 cycles of Gemcitabine + cisplatin + nab-paclitaxel and is currently on maintenance capecitabine and is awaiting transplant. He was recently adm to [facility] from 08/21 - 09/07/24 w/ N/V/D, [...] ERCP and stent exchange on 10/15 at [facility] Currently he remains on reduced dose capecitabine (reduced dose), q2 weeks Assessment & Plan (10/16/2024 3:04 PM CDT): follows Dr. 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 Since then he has underwent 8 cycles of Gemcitabine + cisplatin + nab-paclitaxel and is currently on maintenance capecitabine and is awaiting transplant. He was recently adm to [facility] from 08/21 - 09/07/24 w/ N/V/D, [...] ERCP and stent exchange on 10/15 at [facility] Currently he remains on reduced dose capecitabine (reduced dose), q2 weeks Assessment & Plan (10/15/2024 8:47 PM CDT): follows Dr. 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 Since then he has underwent 8 cycles of Gemcitabine + cisplatin + nab-paclitaxel and is currently on maintenance capecitabine and is awaiting transplant. He was recently adm to [facility] from 08/21 - 09/07/24 w/ N/V/D, [...] ERCP and stent exchange on 10/15 at [facility] Currently he remains on reduced dose capecitabine (reduced dose), q2 weeks Assessment & Plan (09/07/2024 8:02 PM CDT): Established care with Dr. Flowers, s/p chemo/radiation, active on transplant list and on maintenance capecitabine - [facility] Onc recs Assessment & Plan (09/06/2024 5:24 [...] (09/04/2024 11:35 AM CDT): Established care with armand Nettles/p chemo/radiation, active on transplant list and on maintenance capecitabine - [facility]iate Med Onc recs Assessment & Plan (09/03/2024 2:39 PM CDT): Established care with armand Nettles/p chemo/radiation, active on transplant list and on maintenance capecitabine - [facility] Med Onc recs Assessment & Plan (09/02/2024 10:30 AM CDT): Established care with Dr. Flowers s/p chemo/radiation, active on transplant list and on maintenance capecitabine - Appreciate Med Onc recs Assessment & Plan (09/01/2024 4:08 PM CDT): Established care with armand Nettles/p chemo/radiation, active on transplant list and on maintenance capecitabine - Appreciate Med Onc recs Assessment & Plan (08/31/2024 11:36 AM CDT): - Established with Dr. Flowers s/p chemo/radiation, active on transplant list and on maintenance capecitabine - Oncology consulted. Following Assessment & Plan (08/30/2024 12:11 PM CDT): - Established with armand Nettles/p chemo/radiation, active on transplant list and on maintenance capecitabine - Oncology consulted. Assessment & Plan (08/29/2024 1:59 PM CDT): - Established with Dr. Flowers [...] 5:10 PM CDT): - Established with Dr. Flowers s/p chemo/radiation, active on transplant list and on maintenance capecitabine - Oncology consulted. Assessment & Plan (08/25/2024 6:44 PM CDT): - Established with Dr. Flowers s/p chemo/radiation, active on transplant list and on maintenance capecitabine - Oncology consulted. Assessment & Plan (08/24/2024 1:31 PM CDT): - Established with Dr. Flowers s/p chemo/radiation, active on transplant list and on maintenance capecitabine - Oncology consult Assessment & Plan (08/23/2024 12:11 PM CDT): - Established with Dr. Flowers s/p chemo/radiation, active on transplant list and on maintenance capecitabine - [facility] consult discussion regarding continuatio of capecitabine Assessment & Plan (08/22/2024 12:03 PM CDT): - Established with Dr. Flowers s/p chemo/radiation, active on transplant list and on maintenance capecitabine - [facility] consult discussion regarding continuatio of capecitabine Assessment & Plan (08/21/2024 9:15 PM CDT): - Established with Dr. Flowers s/p chemo/radiation, active on transplant list and on maintenance capecitabine - [facility] consult discussion regarding continuatio of capecitabine Assessment & Plan (03/16/2024 5:32 PM OSS ARCHITECT): Dx 11/2023 after presenting with jaundice in [...] resectable. Planned for port 12/01 and start [place]+Cis+Abrax after, which will be postponed for 1wk [...] 10/24/2023 Assessment & Plan (03/15/2024 9:54 PM OSS ARCHITECT): -cont betahistine 24mg tid (home supply) Assessment [...] 02/26/2023 Assessment & Plan (06/09/2024 8:48 PM OSS ARCHITECT): -Status post dual-chamber pacemaker placement -Device interrogation [...] and has been recommended to restart on 13 per patient. Takes warfarin 2 mg daily [...] above Assessment & Plan (06/09/2024 8:49 PM OSS ARCHITECT): -Status post radiofrequency catheter ablation with Dr. Richey -Remains compliant on apixaban and sotalol -Noted to have a sustained episode recently causing symptoms -Increase sotalol to 80 mg b.i.d. -Obtain an EKG after 3 doses to evaluate QT interval -Follow up in 6 months for 12 lead EKG, device interrogation, and clinic visit Assessment & Plan (03/15/2024 10:22 PM OSS ARCHITECT): S/p PVI, CTI ablation 09/09/23. Follows w/ [...] AM CDT): Asymptomatic, device-detected AF. Low burden. [id number] = 2. --Continue apixaban 5 mg BID Lightheadedness 03/12/2022 Small bowel obstruction 12/23/2021 Sinus bradycardia 05/29/2021 Sick sinus syndrome 05/19/2021 Overview (05/19/2021): Added automatically from request for surgery [id number] Assessment & Plan (03/15/2024 9:53 PM OSS ARCHITECT): -s/p PPM Assessment & Plan (01/21/2024 1:23 [...] CPAP Assessment & Plan (03/16/2024 5:27 PM OSS ARCHITECT): Continue CPAP qhs Assessment & Plan (01/21/2024 [...] needed Assessment & Plan (03/16/2024 5:27 PM OSS ARCHITECT): Continue Amlodipine, Lisinopril, HCTZ Assessment & Plan [...] statin Assessment & Plan (03/16/2024 5:25 PM OSS ARCHITECT): Continue statin Assessment & Plan (01/18/2024 7:01 [...] Plan (10/23/2024 7:49 AM CDT): Culture form [facility] positive for gram negative bacilli [...] Plan (10/22/2024 10:33 AM CDT): Culture form [facility] positive for gram negative bacilli [...] Plan (10/21/2024 10:46 AM CDT): Culture form [facility] positive for gram negative bacilli (verbal report per patient). Prior culture in 2023 positive for klebsiella (R: ampicillin) Given fever of 100.9 on 10/13, positive blood culture- for E.coli(resistant to multiple ABX), recent ERCP - will opt to treat as cholangitis., negative UA. Start Zosyn ,--meropenem EOT 10/22 F/u b/c on 10/15-ngtd Assessment & Plan (10/20/2024 10:21 AM CDT): Culture form [facility] positive for gram negative bacilli (verbal report per patient). Prior culture in 2023 positive for klebsiella (R: ampicillin) Given fever of 100.9 on 10/13, positive blood culture- for E.coli(resistant to multiple ABX), recent ERCP - will opt to treat as cholangitis., negative UA. Start Zosyn ,--meropenem EOT 10/22 F/u b/c on 10/15-ngtd Assessment & Plan (10/19/2024 1:30 PM CDT): Culture form [facility] positive for gram negative bacilli (verbal report per patient). Prior culture in 2023 positive for klebsiella (R: ampicillin) Given fever of 100.9 on 10/13, positive blood culture- for E.coli(resistant to multiple ABX), recent ERCP - will opt to treat as cholangitis., negative UA. Start Zosyn , anticipate to switch to oral once records form [place] [facility] is found. F/u b/c on 10/15-ngtd ID consult for ESBL E.coli and ABX recs. Assessment & Plan (10/18/2024 11:27 AM CDT): Culture form [facility] positive for gram negative bacilli (verbal report per patient). Prior culture in 2023 positive for klebsiella (R: ampicillin) Given fever of 100.9 on 10/13, positive blood culture- for E.coli(susceptibilities pending), recent ERCP - will opt to treat as cholangitis., negative UA. Start Zosyn , anticipate to switch to oral once records form [place] [facility] is found. Requested records 10/16 F/u b/c on 10/15-ngtd Assessment & Plan (10/17/2024 12:39 PM CDT): Culture form [facility] positive for gram negative bacilli (verbal report per patient). Prior culture in 2023 positive for klebsiella (R: ampicillin) Given fever of 100.9 on 10/13, positive blood culture- for E.coli, recent ERCP - will opt to treat as cholangitis., negative UA. Start Zosyn , anticipate to switch to oral once records form [place] [facility] is found. Requested records 10/16 F/u b/c on 10/15-ngtd Assessment & Plan (10/16/2024 3:04 PM CDT): Culture form [facility] positive for gram negative bacilli (verbal report per patient). Prior culture in 2023 positive for klebsiella (R: ampicillin) Given fever of 100.9 on 10/13, positive blood culture, recent ERCP - will opt to treathim as cholangitis., negative UA. Start Zosyn , anticipate to switch to oral once records form [place] [facility] is found. Requested records 10/16 F/u b/c on 10/15 Assessment & Plan (10/15/2024 8:47 PM CDT): Culture form [facility] positive for gram negative bacilli (verbal report per patient). Prior culture in 2023 positive for klebsiella (R: ampicillin) Given fever of 100.9 on 10/13, positive blood culture, recent ERCP - will opt to treathim as cholangitis., negative UA. Start Zosyn , anticipate to switch to oral once records form [place] [facility] is found. F/u b/c on 10/15 IVF [...] Date Type Department Care Team Description 5 12:00 PM CDT Home Care Visit [facility] [address] [place] [address] Hannah Roque, OT OT OASIS DISCHARGE [address] [facility] Oncology [address] [facility] Floor 1, [address] [place] [address] Renetta Colunga, MICAH 5 Home Care Visit [address] [place] [address] Hannah Roque, OT CASE COMMUNICATION [address] [facility] Oncology [address] [facility] Floor 5 [place] [address] Marion Aden, RN [address] [facility] Transplant Liver [address] [facility] [address] Mailstop [phone] [place] [address] Jennifer Gamboa 5 Surgical Prehabilitation and Readiness Subsequent Outreach [facility] Department of Surgery [address] [place] [phone] Serge August CMA 5 Telephone [facility] Transplant Liver [address] [facility] [address] Mailstop [phone] [place] [address] Alethea Burch RN [address] [facility] Oncology 10 [facility] [address] [place] [address] Yohana Santana CMA appointment update 5 10:45 AM CDT Home Care Visit [address] [place] [address] Angeline Horowitz COTA OT HOME VISIT [address] [facility] Oncology [facility] Floor 5 [place] [phone] Marion Aden, ALMITA [address] [facility] Oncology [address] [place] [address] Floor 5 [place] [address] Marion Aden, RN [address] [facility] Cardiology [facility] Medical Office Building [address] [place] [address] Chris Hart MD 5 7:36 PM CDT - 5 11:59 PM CDT Hospital Encounter [facility] [address] [place] [address] Discharge Disposition: Discharge to home or self care 5 7:26 PM CDT - 5 9:24 PM CDT Hospital Encounter [facility] [address] [place] [address] Fever, unspecified fever cause (Primary Dx) [address] [facility] Bone Marrow Transplant [address] [facility] Floor 6 [place] [address] Willis Godoy RN [address] [facility] Medical Office Building [address] [place] [address] Chris Hart MD [address] [facility] Transplant Liver [address] [place] [address] [address] Mailop [phone] [place] [address] Mariama Feldman RN 5 12:45 PM CDT Home Care Visit [address] [address] [address] [place] [address] Angeline Horowitz COTA OT HOME VISIT 5 9:00 AM CDT Home Care Visit [address] [address] [place] [address] Bryn Molina, PT PT REASSESSMENT 5 Surgical Prehabilitation and Readiness Subsequent Outreach [facility] Department of Surgery [address] [place] [address] Serge August CMA [address] [facility] Oncology [address] [facility] Floor 5 [place] [address] Agustina Li MD PhD 5 1:45 PM CDT Office Visit [facility] Oncology 10 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 Oncology [facility] Floor 5 [place] [address] Marion Aden, ALMITA [address] [facility] Transplant Liver [address] [facility] [address] Mailstop [phone] [place] [address] Mariama Feldman RN [address] [facility] Cardiology [address] [place] [address] Office Building [address] [place] [address] Chris Hart MD 5 10:30 AM CDT Home Care Visit [address] [place] [address] Hannah Roque, OT OT REASSESSMENT 5 Home Care Visit [address] [place] [address] Hannah Roque, OT CASE COMMUNICATION [address] [facility] Oncology [address] [place] [address] Floor 5 [place] [address] Marion Aden RN [address] [facility] Oncology [address] [place] [address] Floor 5 [place] [address] Marion Aden RN [address] An[address] [facility] Cardiology [address] [place] [address] Medical Office Building [address] [place] [address] Chris Hart MD [address] [facility] Oncology [address] [place] [address] Floor 5 [place] [phone] Heidi Diaz, RMA Fever 5 1:00 PM CDT Home Care Visit [address] [address] [place] [address] Mei Trujillo, RN SN OASIS RESUMPTION OF CARE 5 Plan of Care Documentation [address] [address] [place] [address] [facility] Oncology [address] [facility] Floor 5 [place] [address] Marion Aden RN [address] [facility] Oncology [address] [facility] Floor 5 [place] [address] Agustina Li MD PhD Hilar cholangiocarcinoma (HCC) (Primary Dx) [address] [facility] Cardiology [address] [place] [address] Advanced Medicine 8th [place] [address] [place] [address] Alea Canada RN 5 1:57 PM CDT Anesthesia Event [facility] [address] [place] [phone] Pascale Portillo MD 5 Surgical Prehabilitation and Readiness Subsequent Outreach [facility] Department of Surgery [address] [place] [phone] Serge August CMA [address] [facility] Cardiology 49[address] [facility] Medicine 8th [place] [address] [place] [address] Chantell Alexis 5 Home Care Visit [address] [place] [address] Ewa Lubin, PT PT OASIS TRANSFER W/OUT DC 5 4:11 PM CDT - 5 2:00 PM CDT Hospital Encounter [address] [address] Agustina Li MD PhD Kait Aksew MD Baral, MD Tomer Guerrero Safia, MD Tabagari, David, MD Positive blood culture (Primary Dx); Fever, unspecified fever cause; Illness, unspecified; Sepsis with gram negative bacteremia; Hilar cholangiocarcinoma (HCC) Discharge Disposition: Discharge to home, home health skilled care 5 12:53 PM CDT Anesthesia Event [facility] [address] [place] [phone] Vipin Daniel DO Winfrey, Tonya M., CRNA 5 11:00 AM CDT - 5 11:30 AM CDT Surgery [facility] [address] [place] [phone] Chris Holcomb MD ENDOSCOPIC RETROGRADE CHOLANGIOPANCREATOGRAPHY REMOVE/CHANGE STENT [GI524] 5 8:47 AM CDT - 5 2:50 PM CDT Hospital Encounter [facility] [address] [place] [phone] Chris Holcomb MD History of biliary stent insertion Discharge Disposition: Discharge to home or self care 5 6:41 AM CDT - 5 11:59 PM CDT Hospital Encounter [facility] [address] [place] [phone] Upper abdominal pain Discharge Disposition: Discharge to home or self care [address] [facility] Oncology [address] [facility] Floor 5 [place] [address] Agustina Li MD PhD [address] [facility] Cardiology [address] [facility] Medical Office Building [address] [place] [address] Chris Hart MD 5 Surgical Prehabilitation and Readiness Subsequent Outreach [facility] Department of Surgery [address] [place] [address] Serge August CMA 5 12:15 PM CDT Home Care Visit [facility] [address] [place] [address] 157 [address] [place] [address] Angeline Horowitz COTA OT HOME VISIT 5 10:00 AM CDT Office Visit [facility]asteroenter[facility] [address] [facility] Medicine 12th [place] [address] [place] [address] Katie Reeder MD Perihilar cholangiocarcinoma (HCC) (Primary Dx) 5 2:00 PM CDT Home Care Visit [address] [place] [address] Bryn Molina, PT PT HOME VISIT 5 10:00 AM CDT Office Visit [facility] Cardiology [address] [facility] Medical Office Building [address] [place] [address] Aisha Delcid NP Cardiac pacemaker in situ (Primary Dx); Moderate aortic regurgitation; High risk medication use; Paroxysmal atrial fibrillation (HCC); Nonrheumatic mitral valve regurgitation; Essential (primary) hypertension; Prolonged INR; Heart disease, unspecified; Sick sinus syndrome (HCC) [address] 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 Transplant Liver [address] [facility] [address] Mailstop [phone] [place] [address] Chest Abdomen Pelvis W Contrast 5 10:30 AM CDT Home Care Visit [address] [place] [address] Angeline Horowitz COTA OT HOME VISIT [address] [facility] Oncology [address] [facility] Floor 5 [place] [address] Agustina Li MD PhD Benign prostatic hyperplasia, unspecified whether lower urinary tract symptoms present (Primary Dx); Hilar cholangiocarcinoma (HCC) 5 10:00 AM CDT Home Care Visit [address] [place] [address] Bryn Molina, PT PT HOME VISIT [address] [facility] Transplant Liver [address] [place] [address] 3401 Mailstop [phone] [place] [address] Alethea Burch RN [address] [facility] Transplant Liver [address] [place] [address] 3401 Mailstop [phone] [place] [address] Alethea Burch, ALMITA [address] [facility] Oncology [address] [facility] Floor 5 [place] [address] Agustina Li MD PhD [address] [facility] Transplant Liver [address] [place] [address] 3401 Mailstop [phone] [place] [address] Alethea Burch, RN 5 10:00 AM CDT Office Visit [facility] Oncology 10 [facility] [address] [place] [address] Agustina Li MD PhD Hilar cholangiocarcinoma (HCC) (Primary Dx) 5 9:00 AM CDT Clinical Support [facility] 10 [facility] [place] [phone] Hilar cholangiocarcinoma (HCC) 5 Results Follow-Up [facility] Transplant Liver [address] [facility] [address] Mailstop [phone] [place] [address] Alethea Burch, ALMITA Cancer antigen 19-9, Comprehensive metabolic panel, CBC with auto differential, Additional followed-up results: [address] [facility] Transplant Liver [address] [facility] [address] Mailstop [phone] [place] [address] Alethea Burch RN [address] [facility] Cardiology [address] [facility] Medical Office Building [address] [place] [address] Chris Hart MD Paroxysmal atrial fibrillation (HCC) (Primary Dx) 5 12:15 PM CDT Home Care Visit [address] [place] [address] Angeline Horowitz COTA OT HOME VISIT 5 10:30 AM CDT Home Care Visit [address] [place] [address] Bryn Molina, PT PT HOME VISIT 5 10:00 AM CDT Home Care Visit [address] [place] [address] Bryn Molina, PT PT REASSESSMENT 5 Orders Only [facility] Cancer [address] [address] Charlee Tovar [facility] [address] [facility] Oncology [address] [facility] Floor 5 [place] [address] Marion Aden RN 5 12:00 PM CDT Home Care Visit [address] [place] [address] Hannah Roque, OT OT REASSESSMENT 5 Surgical Prehabilitation and Readiness Subsequent Outreach [facility] Department of Surgery [address] [place] [address] Serge August CMA [address] [facility] Transplant Liver [address] [facility] [facility] [address] Mailstop [phone] [place] [address] Mariama Parisi, RN [address] [facility] Transplant Liver [address] [facility] [facility] [address] Mailstop [phone] [place] [address] Analisa, Nimisha [address] [facility] Transplant Liver [address] [place] [address]01 Mailstop [phone] [place] [address] Analisa, Nimisha [address] [facility] Transplant Liver [address] [place] [address] 340 Mailstop [phone] [place] [address] Mariama Parisi, RN [address] [facility] Cardiology [address] [facility] Medical Office Building [address] [place] [address] Chris Hart MD Longstanding persistent atrial fibrillation (HCC) (Primary Dx) 5 12:00 PM CDT Home Care Visit [address] [place] [address] Angeline Horowitz COTA OT HOME VISIT 5 10:15 AM CDT Home Care Visit [address] [place] [address] Bryn Molina, PT PT HOME VISIT [address] [facility] Oncology [address] [facility] Floor 5 [place] [address] Agustina Li MD PhD Hilar cholangiocarcinoma (HCC) (Primary Dx) [address] [facility] Transplant Liver [address] [facility] [address] Mailstop [phone] [place] [address] Mariama Parisi, ALMITA 5 1:15 PM CDT Home Care Visit [address] [place] [address] Angeline Horowitz COTA OT HOME VISIT [address] [facility] Oncology [address] [facility] Floor 5 [place] [address] Marion Aden, ALMTIA 5 12:00 PM CDT Home Care Visit [address] [address] [place] [address] Radha Grullon, PT PT REASSESSMENT [address] [facility] Oncology [address] [facility] Floor 5 [place] [address] Marion Aden, ALMITA 5 Surgical Prehabilitation and Readiness Subsequent Outreach [facility] Department of Surgery [address] [place] [phone] Serge August CMA [address] [facility] Cardiology [address] [facility] Medical Office Building [address] [place] [address] Chris Hart MD Longstanding persistent atrial fibrillation (HCC) (Primary Dx) 5 1:45 PM CDT Home Care Visit [address] [address] [place] [address] Angeline Horowitz COTA OT HOME VISIT [address] [facility] Cardiology 49[address] [facility] 8th [place] [address] [place] [address] Chris Hart MD 5 11:15 AM CDT Home Care Visit [address] [place] [address] Radha Grullon, PT PT HOME VISIT 5 2:30 PM CDT Home Care Visit [address] [place] [address] Bryn Molina, PT PT HOME VISIT [address] [facility] Transplant Liver [address] [facility] 3401 Mailstop [phone] [place] [address] Nimisha Hauser 5 1:45 PM CDT Home Care Visit [address] [place] [address] Angeline Horowitz COTA OT HOME VISIT [address] [facility] Transplant Liver [address] [facility] 3401 Mailstop [phone] [place] [address] Mariama Parisi, RN [address] [facility] Transplant Liver [address] [facility] [address]01 Mailstop [phone] [place] [address] Mariama Parisi, RN 5 Results Follow-Up [facility] Transplant Liver [address] [facility] [address]01 Mailstop [phone] [place] [address] Mariama Parisi, RN Cancer antigen 19-9, Comprehensive metabolic panel, CBC with auto differential, Additional followed-up results: 3 5 9:15 AM CDT Clinical Support [facility] [place] at [address] [place] [phone] 5 8:45 AM CDT Office Visit [facility] Oncology [address] [place] [address] [address] [place] [address] Agustina Li MD PhD Hilar cholangiocarcinoma (HCC) (Primary Dx) 5 7:45 AM CDT Clinical Support [address] [place] [address] Hilar cholangiocarcinoma (HCC); Paroxysmal atrial fibrillation (HCC); High risk medication use; Prolonged INR [address] [facility] Cardiology 1020 [facility] Office Building [address] [place] [address] Chris Hart MD 5 12:45 PM CDT Home Care Visit [address] [place] [address] Angeline Horowitz COTA OT HOME VISIT 5 Anticoagulation Telephone Call [facility] 1020 [facility] Office Building [address] [place] [address] Chris Hart MD 5 2:00 PM CDT Home Care Visit [address] [place] [address] Bryn Molina, PT PT HOME VISIT 5 Telephone [facility] Transplant Liver [address] [facility] 3401 Mailstop [phone] [place] [address] Genoveva Hobson 5 Documentation [facility] Transplant Liver [address] [facility] [address] Mailstop [phone] [place] [address] Mariama Parisi RN 5 Orders Only [facility] Scanning, Provider [address] [facility] Oncology [address] [facility] Floor 5 [place] [address] Marion Aden RN [address] [facility] Cardiology [address] [facility] Medical Office Building [address] [place] [address] Chris Hart MD Paroxysmal atrial fibrillation (HCC) (Primary Dx) [address] [facility] Cardiology [address] [facility] 8th [place] [address] [place] [address] Chris Hatr MD 5 1:00 PM CDT Home Care Visit [address] [place] [address] Hannah Roque, OT OT INITIAL EVALUATION 5 Home Care Visit [address] [place] [address] Hannah Roque, OT CASE COMMUNICATION 5 Home Care Visit [address] [place] [address] Samia Carias, RN NURSE MED RECON FOR THERAPY [address] [facility] Oncology [address] [place] [address] 100 [place] [phone] Smith Cruz [address] [facility] Oncology [address] [place] [address] Floor 5 [place] [address] Agustina Li MD PhD Hilar cholangiocarcinoma (HCC) (Primary Dx) [address] [facility] Oncology [address] [place] [address] Floor 5 [place] [address] Marion Aden RN 5 Surgical Prehabilitation and Readiness Subsequent Outreach [facility] Department of Surgery [address] [place] [address] Serge August CMA 5 9:00 AM CDT Infusion [address] [place] [phone] Dehydration (Primary Dx); Hilar cholangiocarcinoma (HCC); Hypomagnesemia 5 8:30 AM CDT Office Visit [facility] Oncology [address] [place] [address] [address] [place] [phone] Leela Guillermo NP Hilar cholangiocarcinoma (HCC) (Primary Dx); Dehydration 5 7:45 AM CDT Clinical Support [address] [place] [address] 5 7:30 AM CDT Clinical Support [facility] at [address] [place] [address] Hilar cholangiocarcinoma (HCC); Paroxysmal atrial fibrillation (HCC); High risk medication use; Prolonged INR 5 Home Care Visit [address] [place] [address] Samia Carias, ALMITA NURSE MED RECON FOR THERAPY [address] [facility] Oncology [address] [place] [address] Floor 5 [place] [address] Heidi Diaz RMA Prior Auth [address] [facility] On[facility] [address] [place] [address] [address] 5 [place] [address] Agustina Li MD PhD [address] [facility] On[facility] [address] [address] [address] [place] [address] Agustina Li MD PhD 5 Documentation [facility] [address] [place] [address] [facility] On[facility] [address] [place] [address] Floor [address] [place] [address] Heidi Diaz RMA Prior Auth [address] [facility] Cardiology [address] [facility] Medical Office Building [address] [place] [address] Chris Hart MD 5 1:00 PM CDT Home Care Visit [address] [place] [address] Radha Grullon, PT PT OASIS START OF CARE 5 Plan of Care Documentation [address] [place] [address] [facility] Transplant Liver [address] [facility] [facility] [address] Mailstop [phone] [place] [address] Genoveva Hobson [address] [facility] Transplant Liver [address] [facility] [address] Mailstop [phone] [place] [address] Genoveva Hobson [address] [facility] Transplant Liver [address] [facility] [address] Mailstop [phone] [place] [address] Mariama Parisi RN [address] [facility] On[facility] Floor 5 [place] [address] Landy Hooker RN [address] [facility] [address] [facility] Center Floor 1, [address] [place] [phone] Seema Mora RN 5 Travel 5 2:20 [address] [facility] Vascular Lab IP 1 [facility] [address] [place] [phone] 5 Surgical Prehabilitation and Readiness Subsequent Outreach [facility] Department of Surgery [address] [place] [phone] Serge August CMA 5 7:55 AM CDT Ancillary Procedure [facility] Vascular Lab IP 1 [facility] [address] [place] [phone] [address] [place] [address] Yee Marin, ALMITA [address] [facility] Oncology [facility] Floor 5 [place] [phone] Landy Hooker, ALMITA Hilar cholangiocarcinoma (HCC) (Primary Dx) 5 11:35 AM CDT Anesthesia Event [facility] 1 [place] [address] Arlene Phillips MD 5 10:56 AM CDT - 5 11:26 AM CDT Surgery [facility] 1 [place] [address] Abram Smith MD SIGMOID BIOPSY [address] [facility] and [facility] Transplant Liver [address] [facility] [address] Mailstop [phone] [place] [address] Mariama Parisi RN 5 Surgical Prehabilitation and Readiness Subsequent Outreach [facility] Department of Surgery [address] [place] [address] Serge August CMA [address] [facility] Cardiology [address] [facility] Floor 1, [address] [place] [phone] Chris Hart MD [address] [facility] Oncology [address] [facility] Floor 5 [place] [phone] Landy Hooker, ALMITA Hilar cholangiocarcinoma (HCC) (Primary Dx) 5 6:12 PM CDT - 5 4:07 PM CDT Hospital Encounter [address] [phone] Gorge Contreras MD PhD Everardo Diaz MD Patel, Rushin Mahesh, MD Farooqui, MD Sweta Felipe Geneva Enriquez, MD Menon, Priya, MD Hoyt, Smith Hinton MD Diarrhea, unspecified type (Primary Dx); FTT (failure to thrive) in adult; Acute hypoxemic respiratory failure (HCC); Hypoxia Discharge Disposition: Discharge to home or self care 5 3:53 PM CDT - 5 11:59 PM CDT Hospital Encounter [facility] [address] [place] [address] Discharge Disposition: Discharge to home or self care 5 2:54 PM CDT - 5 11:59 PM CDT Hospital Encounter [facility] [address] [place] [phone] Other specified hypotension (Primary Dx); Nausea; Elevated INR Discharge Disposition: Discharge to home or self care 5 Results Follow-Up [facility] Cardiology [address] [facility] [address] [place] [address] Seema Mora, ALMITA Protime-INR, aPTT [address] [facility] Oncology [address] [place] [address] Floor 5 [place] [phone] Landy Hooker, ALMITA [address] [facility] Gastroenterolog y [address] [place] [address] Medical Office Building 4, [address] [place] [phone] Erin Dillard RN GI Preprocedure 5 Telephone [facility] at [address] [phone] Kait Marroquin, ASHLEY 5 7:24 PM CDT - 5 3:09 AM CDT Hospital Encounter [facility] ([facility]) [address] [place] [address] Nausea and vomiting, unspecified vomiting type (Primary Dx); Hilar cholangiocarcinoma (HCC) Discharge Disposition: Discharge to home or self care 5 Telephone [facility] at [address] [phone] Kait Marroquin, ASHLEY [address] [facility] Oncology [facility] Floor 5 [place] [address] Landy Hooker, ALMITA [address] [facility] Oncology [address] [facility] Floor 5 [place] [phone] Landy Hooker RN Hand foot syndrome (Primary Dx); Hilar cholangiocarcinoma (HCC) [address] [facility] Cardiology [address] [facility] Medical Office Building 3 [address] [place] [phone] Chris Hart MD Paroxysmal atrial fibrillation (HCC) (Primary Dx) 5 1:15 PM CDT Ancillary Procedure [facility] [address] [facility] [address] [place] [phone] Cardiac pacemaker in situ (Primary Dx); Sick sinus syndrome (HCC) 5 Telephone Arrhythmia Center [address] [place] [address] [address] [phone] Zane Richey III, MD 5 9:30 AM CDT Office Visit [facility] Gasteroenterolo gy [address] [facility] 12th [place] [address] [place] [address] Jamin Posey MD Cholangiocarcinoma (HCC) (Primary Dx); Hilar cholangiocarcinoma (HCC) 5 11:30 AM CDT Telemedicine [facility] [address] [place] [address] [place] [address] Gorge Garza MD PhD Cholangiocarcinoma (HCC) (Primary Dx) 5 12:32 PM CDT Anesthesia Event [facility] Digestive Disease [place] [phone] [facility] [address] [place] [address] Arpan Guzman MD 5 11:30 AM CDT - 5 12:00 PM CDT Surgery [facility] Digestive Disease [address] [place] [address] Chris Holcomb MD ENDO ENDOSCOPIC RETROGRADE CHOLANGIOPANCREATOGRAPHY REMOVE/CHANGE STENT [GI513] 5 10:17 AM CDT - 5 2:27 PM CDT Hospital Encounter [facility] [address] [facility] [address] [place] [phone] Chris Holcomb MD History of biliary stent insertion; Hilar cholangiocarcinoma (HCC) Discharge Disposition: Discharge to home or self care from Last 3 Months Immunizations Immunization Administration Dates Next Due COVID-19 mRNA (Songza) 0.3 m L (30 mcg) vaccine (12 years and up) 02/16/2023 DT 02/09/2019 Hep A / Hep B 06/17/2024 Influenza, Quad, Adjuvantate d, Intramuscular 01/18/2023,02/26/2022,03/20/2021 Influenza, Quadrivalent, Hig h Dose, Preservative Free, Intrr 02/14/2022,03/01/2020 Influenza, Quadrivalent, Spl it, Intramuscular 03/20/2021,02/29/2020 Influenza, Trivalent, Adjuva nted, Intramuscular 02/06/2016 Influenza, Trivalent, High D ose, Split, Preservative Free, Intramuscular 03/01/2020,02/24/2019,02/05/2018 Influenza, Unspecified 02/04/2024,2021,02/17/2021,02/05 Moderna Sars-cov-2 Bivalent Vaccine 10 mcg/0.2 mL (6 MOS-5 YRS)-[place]/Yellow 02/26/2022 Pfizer SARS-CoV-2 Monovalent Vaccination (12+ Yrs) PURPLE [...] Sister 1 Vivian Sleep apnea Sister 2 [place] Anesthesia problems Neg Hx Relation Name Status Comments Father Sulma Mother Elidia Sister 1 Vivian Sister 2 [place] Alive Social History Tobacco Use Types Packs/Day [...] materials from doctor or pharmacy Never 11/05/2024 [facility] Utilities Answer Date Recorded In the past 12 months has th e exsulin, gas, oil, or water [employer] threatened to shut off services in your [...] week 10/19/2024 How often do you attend [facility] or rastafarian services? More than 4 times per year 10/19/2024 Do you belong to any clubs o r organizations such as christian groups, unions, fraternal or athletic groups, or [...] Date Recorded PHQ-2 Total Score 0 10/19/2024 [facility] - [...] time in the past 12 m [facility], were you homeless or living in a half-way (including now)? No 10/19/2024 Personal Safety Answer Date Recorded Have you ever been in or are you currently in a harmful physical or emotional relationship or is someone making you feel afraid or unsafe? 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 [employer] ARCHIT[employer] Gender Identity Male 12/06/2019 4:39 PM CDT Sexual Orientation Straight 12/06/2019 4: 39 PM CDT Obstetrics History Last Filed Vital Signs Vital Sign Reading Time Taken Comments Blood Pressure 134/64 11/05/2024 11:57 AM CDT Pulse 57 11/05/2024 11:57 AM CDT Temperature 37.1 C (98.7 F) 11/05/2024 11:57 AM CDT Respiratory Rate 18 11/05/2024 11:57 AM CDT Oxygen Saturation 97% 11/05/2024 11:57 AM CDT Inhaled Oxygen Concentration - - Weight 90.1 kg (198 lb 9.6 oz) 11/01/2024 7:35 P M CDT Height 177.8 cm (5' 10) 10/16/2024 4:30 PM CDT Body Mass Index 28.5 10/16/2024 4:30 PM CDT Plan of Treatment Scheduled Procedures Name Priority Associated Diagnoses Date/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) Health Maintenance Due Date Last Done Comments Albumin Creatinine Ratio, Urine 1950 Colon Cancer Screening-Colonoscopy 1950 Dilated Eye Exam 1950 Foot Exam 1950 Well Visit 65+ 2014 Zoster Vaccine (1 of 2) 04/23/2022 02/27/20, 05/06/2014, 02/17/2013, Additional history exists Covid-19 Vaccine (13 - Mixed Product risk 2023- season) 08/04/2024 02/04/2024, 02/17/2023, 02/16/2023, Additional history exists Hemoglobin A1C 12/20/2024 06/22/2024, 07/2024, 03/24/2024, Additional history exists Influenza Vaccine (#1) 2025 , 01/18/2023, 02/26/2022, Additional history exists Lipid Panel 06/08/2025 06/08/2024, 03/06, 11/15/2023, Additional history exists Depression Screening 10/15/2025 10/15/2024, 03/15/20 24 Fall Risk Assessment 10/23/2025 10/23/2024, 05/12/19 25 eGFR 11/01/2025 11/01/2024, 10/05, 10/23/2024, Additional history exists DTaP/Tdap/Td Vaccine (2 - Tdap) 02/09/2029 9 Pneumococcal vaccine 65+ Completed 10/10/2022, 06/2019 Hepatitis C Screening Completed 06/08/2024, 024 Hepatitis B Screening Completed 06/17/2024, 025 Colon Cancer Screening-CT Colonography Discontinued 08/31/2024 Colon Cancer Screening-DNA Stool Discontinued 09/01/19 Colon Cancer Screening-FIT Discontinued 08/31/2024 Colon Cancer Screening-Sigmoidoscopy Discontinued 08/31/2024 Abdominal Aortic Aneurysm (A AA) Screen Completed 10/12/2024, 08/22/2024, 05/01/2024, Additional history exists Medical Devices Implanted Type Area Car Wash Attendant Automatic Device Identifier Shelf Expiration Date Model / Serial / Lot [employer] Vascade Mvp 6-12fr Venous Closure [id number] - [id number] - [id number] Implanted:Qty : 1 on 09/09/2023 by Zane Richey III, MD at [employer] 06/20/2025 800-612C- 10U / [id number] 26A / [id number] 26A [employer] Vascade Mvp 6-12fr Venous Closure [id number] - [id number] - [id number] Implanted:Qty : 1 on 09/09/2023 by Zane Richey III, MD at [employer] 06/20/2025 800-612C- 10U / [id number] 26A / [id number] 26A [employer] Vascade Mvp 6-12fr Venous Closure [id number] - [id number] - [id number] Implanted:Qty : 1 on 09/09/2023 by Zane Richey III, MD at [employer] 06/20/2025 800-612C- 10U / [id number] 26A / [id number] 26A [employer] 2088tc/58 Tendril Sts 6fr 58cm Is-1 Connector Active Fixation Bipolar Soft - [id number] - [id number] Implanted:Qty : 1 on 06/30/2021 by Zane Richey III, MD at Lead [employer] [id number] 03/05/2024 2088TC/58 / [id number] / [employer] 2088tc/52 Tendril Sts 6fr 52cm Is-1 Connector Active Fixation Bipolar Soft - [id number] - [id number] Implanted:Qty : 1 on 06/30/2021 by Zane Richey III, MD at Lead [employer] [id number] 03/05/20248TC/52 / [id number] / [employer] [id number] Assurity Mri 40f69pp 2 Chamber Is-1 Connector Thk6mm Pacemaker - [id number] - [id number] Implanted:Qty : 1 on 06/30/2021 by Zane Richey III, MD at Pacemaker Left: Chest [employer] [id number] 11/02/2022 [id number] / [id number] / [employer] Advanix 7fr 10cm Rapid Exchange Temporary Taper Tip Thin Wall 2 [id number] - [id number] Implanted:Qty : 1 on 10/15/2024 by Chris Holcomb MD at Stent N/A: Bile Duct [employer] 06/10/2026 [id number] / / [id number] [employer] Advanix 7fr 10cm Rapid Exchange Temporary Taper Tip Thin Wall 2 [id number] - [id number] Implanted:Qty : 1 on 10/15/2024 by Chris Holcomb MD at Stent N/A: Bile Duct [employer] 05/26/2026 [id number] / / [id number] [employer] Excela Low Porfile Power Port 8fr 1.6mm 1 Lumen [id number] - [id number] Implanted:Qty : 1 on 12/09/2023 at [facility] [employer] 09/18/2028 [id number] / / [id number] Explanted Type Area Car Wash Attendant Automatic Device Identifier Shelf Expiration Date Model / Serial / Lot [employer] Farrell Flexi-Stent 5fr 7cm Small Pigtail Flexible .035in Stent 6554 - [id number] Implanted:Qty: 1 on 11/15/2023 by Chris Holcomb MD at [facility] Explanted:Qty: 1 on 01/13/[address] [facility] Stent Pancreas [employer] 06/06/2028 [id number] / / [id number] Description:Not present upon start of procedure [employer] Cook Zimmon 7fr 10cm Biliary Double Pigtail Stent [id number] - [id number] Implanted:Qty: 1 on 11/15/2023 by Chris Holcomb MD at [facility] Explanted:Qty: 1 on 01/13/2024 by Sherry Alberts DO at [facility] Stent Bile Duct [employer] 07/08/2026 [id number] / / [id number] [employer] Advanix 7fr 10cm Rapid Exchange Temporary Taper Tip Thin Wall 2 [id number] - [id number] Implanted:Qty: 1 on 01/13/2024 by Chris Holcomb MD at [facility] Explanted:Qty: 1 on 03/18/2024 by Chris Holcomb MD at Stent N/A: Bile Duct [employer] [id number] 10/20/2025 [id number] / / [id number] [employer] Advanix 7fr 10cm Rapid Exchange Temporary Taper Tip Thin Wall 2 [id number] - [id number] Implanted:Qty: 1 on 01/13/2024 by Sherry Alberts DO at [facility] Explanted:Qty: 1 on 03/18/2024 by Chris Holcomb MD at Stent N/A: Bile Duct [employer] [id number] 11/18/2025 [id number] / / [id number] [employer] Advanix 7fr 10cm Rapid Exchange Temporary Taper Tip Thin Wall 2 [id number] - [id number] Implanted:Qty: 1 on 03/18/2024 by Chris Holcomb MD at Explanted:Qty: 1 on 08/07/2024 by Sherry Alberts DO at [facility] Stent N/A: Bile Duct [employer] 01/12/2026 [id number] / / [id number] [employer] Advanix 7fr 12cm Rapid Exchange Temporary Taper Tip Thin Wall 2 [id number] - [id number] Implanted:Qty: 1 on 03/18/2024 by Chris Holcomb MD at Explanted:Qty: 1 on 08/07/2024 by Sherry Alberts DO at [facility] Stent N/A: Bile Duct [employer] 01/06/2026 [id number] / / [id number] Description:Not present on t his exam [employer] Advanix 7fr 10cm Rapid Exchange Temporary Taper Tip Thin Wall 2 [id number] - [id number] Implanted:Qty: 1 on 05/18/2024 by Chris Holcomb MD at Explanted:Qty: 1 on 08/07/2024 by Sherry Alberts DO at [facility] Stent N/A: Bile Duct [employer] 03/17/2026 [id number] / / [id number] [employer] Advanix 7fr 10cm Rapid Exchange Temporary Taper Tip Thin Wall 2 [id number] - [id number] Implanted:Qty: 1 on 05/18/2024 by Chris Holcomb MD at Explanted:Qty: 1 on 08/07/[address] [facility] Stent N/A: Bile Duct [employer] 03/18/2026 [id number] / / [id number] Description:Not present on t his exam [employer] Advanix 7fr 10cm Rapid Exchange Temporary Taper Tip Thin Wall 2 [id number] - [id number] Implanted:Qty: 1 on 08/07/2024 by Sherry Alberts DO at [facility] Explanted:Qty: 1 on 10/15/2024 by Chris Holcomb MD at Stent N/A: Bile Duct [employer] 05/26/2026 [id number] / / [id number] [employer] Advanix 7fr 10cm Rapid Exchange Temporary Taper Tip Thin Wall 2 [id number] - [id number] Implanted:Qty: 1 on 08/07/2024 by Sherry Alberts DO at [facility] Explanted:Qty: 1 on 10/15/2024 by Chris Holcomb MD at Stent N/A: Bile Duct [employer] 05/26/2026 [id number] / / [id number] [employer] Zimmon Od7 Fr L15 Cm Tapered Tip 2 Pigtail Curve Stent Biliary Polyethylene Sterile Disposable Purple [id number] - [id number] Implanted:Qty: 1 on 11/15/2023 by Chris Holcomb MD at [facility] Explanted:Qty: 1 on 01/13/2024 by Sherry Alberts DO at [facility] Bile Duct [employer] 07/03/2026 [id number] / / [id number] Procedures Procedure Name Priority Date/Time Associated Diagnosis Comments URINALYSIS AND REFLEX TO MICROSCOPIC AND CULTURE Routine 11/01/2024 8:13 PM CDT XR CHEST 1 VIEW IP Routine 11/01/2024 8:06 PM CDT BLOOD CULTURE Routine 11/01/2024 8:05 PM CDT BLOOD CULTURE Routine 11/01/2024 8:05 PM CDT POC BLOOD GAS AND CHEMISTRIES, ARTERIAL Routine 11/01/2024 7:56 PM CDT EGFR Routine 11/01/2024 7:51 PM CDT DIFFERENTIAL AUTO Routine 11/01/2024 7:51 PM CDT PROTIME-INR Routine 11/01/2024 7:51 PM CDT COMPREHENSIVE METABOLIC PANEL Routine 11/01/2024 7:51 PM CDT CBC WITH AUTO DIFFERENTIAL Routine 11/01 7:51 PM CDT RESPIRATORY PATHOGEN PANEL Routine 11/01 7:44 PM CDT PROTIME-INR Routine 10/30/2024 9:59 AM CDT Longstanding persistent atrial fibrillation (HCC) EGFR STAT 10/28/2024 1:00 PM CDT Hilar cholangiocarcinoma (HCC) DIFFERENTIAL AUTO Routine 10/28/2024 1:00 PM CDT Hilar cholangiocarcinoma (HCC) PROTIME-INR Routine 10/28/2024 1:00 PM CDT Hilar cholangiocarcinoma (HCC) CANCER ANTIGEN 19-9 Routine 10/28/2024 1:00 PM CDT 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) COMPREHENSIVE METABOLIC PANEL STAT 10/28/2024 1:00 PM CDT Hilar cholangiocarcinoma (HCC) CBC WITH AUTO DIFFERENTIAL Routine 10/28 1:00 PM CDT Hilar cholangiocarcinoma (HCC) PROTIME-INR Routine 10/26/2024 8:11 AM CDT Longstanding persistent atrial fibrillation (HCC) EGFR Routine 10/23/2024 3:26 AM CDT DIFFERENTIAL AUTO Routine 10/23/2024 3:26 AM CDT PHOSPHORUS Routine 10/23/2024 3:26 AM CDT COMPREHENSIVE METABOLIC PANEL Routine 10/23/2024 3:26 AM CDT CBC WITH AUTO DIFFERENTIAL Routine 10/23 3:26 AM CDT TRANSESOPHAGEAL ECHO (MARK) W DOPPLER/CF WO CONTRAST Routine 10/22/2024 2:40 PM CDT EGFR Routine 10/22/2024 1:43 AM CDT DIFFERENTIAL AUTO Routine 10/22/2024 1:43 AM CDT PHOSPHORUS Routine 10/22/2024 1:43 AM CDT COMPREHENSIVE METABOLIC PANEL Routine 10/22/2024 1:43 AM CDT CBC WITH AUTO DIFFERENTIAL Routine 10/22 1:43 AM CDT LACTATE DEHYDROGENASE Routine 10/22/2024 1:43 AM CDT URIC ACID Routine 10/22/2024 1:43 AM CDT TYPE AND SCREEN Timed 10/22/2024 1:43 AM CDT EGFR Routine 10/21/2024 3:01 AM CDT DIFFERENTIAL AUTO Routine 10/21/2024 3:01 AM CDT APTT Routine 10/21/2024 3:01 AM CDT PROTIME-INR Routine 10/21/2024 3:01 AM CDT PHOSPHORUS Routine 10/21/2024 3:01 AM CDT COMPREHENSIVE METABOLIC PANEL Routine 10/21/2024 3:01 AM CDT CBC WITH AUTO DIFFERENTIAL Routine 10/21 3:01 AM CDT ECG 12-LEAD Routine 10/20/2024 1:34 PM CDT HEPARIN ANTI FACTOR XA ACTIVITY STAT 10/20/2024 12:10 PM CDT EGFR Routine 10/20/2024 3:02 AM CDT DIFFERENTIAL AUTO Routine 10/20/2024 3:02 AM CDT PHOSPHORUS Routine 10/20/2024 3:02 AM CDT COMPREHENSIVE METABOLIC PANEL Routine 10/20/2024 3:02 AM CDT CBC WITH AUTO DIFFERENTIAL Routine 10/20 3:02 AM CDT EGFR Routine 10/19/2024 12:56 AM CDT DIFFERENTIAL AUTO Routine 10/19/2024 12:56 AM CDT PHOSPHORUS Routine 10/19/2024 12:56 AM CDT COMPREHENSIVE METABOLIC PANEL Routine 10/19/2024 12:56 AM CDT CBC WITH AUTO DIFFERENTIAL Routine 10/19 12:56 AM CDT PROTIME-INR Routine 10/19/2024 12:56 AM CDT APTT Routine 10/19/2024 12:56 AM CDT LACTATE DEHYDROGENASE Routine 10/19/2024 12:56 AM CDT URIC ACID Routine 10/19/2024 12:56 AM CDT TYPE AND SCREEN Timed 10/19/2024 12:56 AM CDT EGFR Routine 10/18/2024 1:19 AM CDT DIFFERENTIAL AUTO Routine 10/18/2024 1:19 AM CDT PHOSPHORUS Routine 10/18/2024 1:19 AM CDT COMPREHENSIVE METABOLIC PANEL Routine 10/18/2024 1:19 AM CDT CBC WITH AUTO DIFFERENTIAL Routine 10/18 1:19 AM CDT INFECTION PREVENTION VRE CULTURE Routine 10/17/2024 1:53 PM CDT C. DIFFICILE TESTING Routine 10/17/2024 1:53 PM CDT EGFR Routine 10/17/2024 12:44 AM CDT DIFFERENTIAL AUTO Routine 10/17/2024 12:44 AM CDT PHOSPHORUS Routine 10/17/2024 12:44 AM CDT COMPREHENSIVE METABOLIC PANEL Routine 10/17/2024 12:44 AM CDT CBC WITH AUTO DIFFERENTIAL Routine 10/17 12:44 AM CDT EGFR Routine 10/16/2024 5:27 AM CDT DIFFERENTIAL AUTO Routine 10/16/2024 5:27 AM CDT LACTATE Routine 10/16/2024 5:27 AM CDT PROTIME-INR Routine 10/16/2024 5:27 AM CDT APTT Routine 10/16/2024 5:27 AM CDT LACTATE DEHYDROGENASE Routine 10/16/2024 5:27 AM CDT URIC ACID Routine 10/16/2024 5:27 AM CDT TYPE AND SCREEN Timed 10/16/2024 5:27 AM CDT PHOSPHORUS Routine 10/16/2024 5:27 AM CDT COMPREHENSIVE METABOLIC PANEL Routine 10/16/2024 5:27 AM CDT CBC WITH AUTO DIFFERENTIAL Routine 10/16 5:27 AM CDT XR CHEST PA LATERAL 2 VIEWS ED 10/04 7:04 PM CDT URINALYSIS AND REFLEX TO MICROSCOPIC AND CULTURE STAT 10/15/2024 7:01 PM CDT EGFR STAT 10/15/2024 5:22 PM CDT DIFFERENTIAL AUTO STAT 10/15/2024 5:22 PM CDT SEPSIS LACTATE WITH REFLEX STAT 10/15 5:22 PM CDT COMPREHENSIVE METABOLIC PANEL STAT 10/15/2024 5:22 PM CDT CBC WITH AUTO DIFFERENTIAL STAT 10/15 5:22 PM CDT BLOOD CULTURE STAT 10/15/2024 5:22 PM CDT BLOOD CULTURE STAT 10/15/2024 5:22 PM CDT ERCP IP Routine 10/15/2024 1:44 PM CDT History of biliary stent insertion ERCP IP Routine 10/15/2024 1:44 PM CDT History of biliary stent insertion ERCP IP Routine 10/15/2024 1:44 PM CDT History of biliary stent insertion ERCP Schedule Routine, Read Routine (OP Routine) 10/15/2024 1:41 PM CDT Upper abdominal pain ENDOSCOPIC RETROGRADE CHOLANGIOPANCREATOGRAPHY REMOVE/CHANGE STENT 10/15/2024 12:50 PM CDT History of biliary stent insertion Special Needs INR to be drawn at OP lab at 0900 ERCP 10/15/2024 12:47 PM CDT PROTIME-INR STAT 10/15/2024 11:[address] CHEST ABDOMEN PELVIS W CONTRAST Schedule Routine, Read Routine (OP Routine) 10/12/2024 10:39 AM CDT 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) EGFR STAT 10/07/2024 9:11 AM CDT Hilar cholangiocarcinoma (HCC) DIFFERENTIAL AUTO STAT 10/07/2024 9:11 AM CDT Hilar cholangiocarcinoma (HCC) PROTIME-INR Routine 10/07/2024 9:11 AM CDT Hilar cholangiocarcinoma (HCC) CBC WITH AUTO DIFFERENTIAL STAT 10/07 9:11 AM CDT Hilar cholangiocarcinoma (HCC) COMPREHENSIVE [...] Prolonged INR CBC WITH AUTO DIFFERENTIAL STAT 09/16 8:08 AM CDT Hilar cholangiocarcinoma (HCC) COMPREHENSIVE METABOLIC PANEL STAT 09/16/2024 8:08 AM CDT Hilar cholangiocarcinoma (HCC) CANCER ANTIGEN 19-9 Routine 09/16/2024 8:08 AM CDT Hilar cholangiocarcinoma (HCC) COPY(IES) SENT TO: Routine 09/11/2024 10:40 AM CDT PROTIME-INR Routine 09/11/2024 10:40 AM CDT Hilar cholangiocarcinoma (HCC) COMPREHENSIVE METABOLIC PANEL STAT 09/11/2024 10:40 AM CDT Hilar cholangiocarcinoma (HCC) CBC WITH AUTO DIFFERENTIAL Routine 09/11 10:40 AM CDT Hilar cholangiocarcinoma (HCC) SCAN [...] cholangiocarcinoma (HCC) CBC WITH AUTO DIFFERENTIAL STAT 09/09 7:32 AM CDT Hilar cholangiocarcinoma (HCC) ECG [...] AM CDT CBC WITH AUTO DIFFERENTIAL Routine 09/07 2:43 AM CDT APTT Routine 09/07/2024 2:43 [...] AM CDT CBC WITH AUTO DIFFERENTIAL Routine 09/06 12:41 AM CDT EGFR Routine 09/05/2024 1:43 AM CDT DIFFERENTIAL AUTO Routine 09/05/2024 1:43 AM CDT PROTIME-INR Routine 09/05/2024 1:43 AM CDT PHOSPHORUS Routine 09/05/2024 1:43 AM CDT COMPREHENSIVE METABOLIC PANEL Routine 09/05/2024 1:43 AM CDT CBC WITH AUTO DIFFERENTIAL Routine 09/05 1:43 AM CDT XR CHEST 1 VIEW [...] AM CDT CBC WITH AUTO DIFFERENTIAL Routine 09/04 12:25 AM CDT US VEIN DUPLEX LOWER [...] AM CDT CBC WITH AUTO DIFFERENTIAL Routine 09/03 12:59 AM CDT LACTATE DEHYDROGENASE Routine 09/03/2024 [...] AM CDT CBC WITH AUTO DIFFERENTIAL Routine 09/02 12:41 AM CDT US VEIN DUPLEX UPPER EXTREMITY LEFT LIMITED IP Routine 09/01/2024 2:27 PM CDT EGFR Routine 09/01/2024 3:21 AM CDT DIFFERENTIAL AUTO Routine 09/01/2024 3:21 AM CDT MAGNESIUM Routine 09/01/2024 3:21 AM CDT PROTIME-INR Routine 09/01/2024 3:21 AM CDT PHOSPHORUS Routine 09/01/2024 3:21 AM CDT COMPREHENSIVE METABOLIC PANEL Routine 09/01/2024 3:21 AM CDT CBC WITH AUTO DIFFERENTIAL Routine 09/01 3:21 AM CDT XR CHEST 1 VIEW ED Urgent/IP Urgent 08/31/2024 10:37 PM CDT SURGICAL PATHOLOGY Routine 08/31/2024 11:47 AM CDT Diarrhea, unspecified type SIGMOID BIOPSY 08/31/2024 11:35 AM CDT Diarrhea, unspecified type FLEXIBLE SIGMOIDOSCOPY 11:26 AM CDT POTASSIUM, WHOLE BLOOD Timed 6:44 AM CDT EGFR Routine 08/31/2024 2:34 AM CDT DIFFERENTIAL AUTO Routine 08/31/2024 2:34 AM CDT PROTIME-INR Routine 08/31/2024 2:34 AM CDT PHOSPHORUS Routine 08/31/2024 2:34 AM CDT COMPREHENSIVE METABOLIC PANEL Routine 08/31/2024 2:34 AM CDT CBC WITH AUTO DIFFERENTIAL Routine 08/31 2:34 AM CDT APTT Routine 08/31/2024 2:34 [...] AM CDT CBC WITH AUTO DIFFERENTIAL Routine 08/30 2:34 AM CDT EGFR Routine 08/29/2024 1:30 AM CDT DIFFERENTIAL AUTO Routine 08/29/2024 1:30 AM CDT PROTIME-INR Routine 08/29/2024 1:30 AM CDT PHOSPHORUS Routine 08/29/2024 1:30 AM CDT COMPREHENSIVE METABOLIC PANEL Routine 08/29/2024 1:30 AM CDT CBC WITH AUTO DIFFERENTIAL Routine 08/29 1:30 AM CDT PROTIME-INR Routine 08/28/2024 2:30 PM CDT TRANSFUSE PLASMA Timed 08/28/2024 11:03 AM CDT PREPARE PLASMA Timed 08/28/2024 10:04 AM CDT POTASSIUM, WHOLE BLOOD STAT 9:19 AM CDT PROTIME-INR STAT 08/28/2024 9:19 [...] AM CDT CBC WITH AUTO DIFFERENTIAL Routine 08/28 1:32 AM CDT ROTAVIRUS ANTIGEN Routine 08/27/2024 10:04 AM CDT EGFR Routine 08/27/2024 12:29 AM CDT DIFFERENTIAL AUTO Routine 08/27/2024 12:29 AM CDT MAGNESIUM Routine 08/27/2024 12:29 AM CDT PROTIME-INR Routine 08/27/2024 12:29 AM CDT PHOSPHORUS Routine 08/27/2024 12:29 AM CDT COMPREHENSIVE METABOLIC PANEL Routine 08/27/2024 12:29 AM CDT CBC WITH AUTO DIFFERENTIAL Routine 08/27 12:29 AM CDT LACTATE DEHYDROGENASE Routine 08/27/2024 [...] AM CDT CBC WITH AUTO DIFFERENTIAL Routine 08/26 2:08 AM CDT EGFR Routine 08/25/2024 2:06 AM CDT DIFFERENTIAL AUTO Routine 08/25/2024 2:06 AM CDT PROTIME-INR Routine 08/25/2024 2:06 AM CDT PHOSPHORUS Routine 08/25/2024 2:06 AM CDT COMPREHENSIVE METABOLIC PANEL Routine 08/25/2024 2:06 AM CDT CBC WITH AUTO DIFFERENTIAL Routine 08/25 2:06 AM CDT EGFR Routine 08/24/2024 3:33 AM CDT DIFFERENTIAL AUTO Routine 08/24/2024 3:33 AM CDT PHOSPHORUS Routine 08/24/2024 3:33 AM CDT COMPREHENSIVE METABOLIC PANEL Routine 08/24/2024 3:33 AM CDT CBC WITH AUTO DIFFERENTIAL Routine 08/24 3:33 AM CDT PROTIME-INR Routine 08/24/2024 3:33 [...] AM CDT CBC WITH AUTO DIFFERENTIAL Routine 08/23 12:33 AM CDT MISCELLANEOUS MOLECULAR SEND-OUT REQUEST Routine 08/22/2024 3:[address] CHEST ABDOMEN PELVIS W CONTRAST IP Routine 08/22/2024 10:08 AM CDT URINALYSIS, MICROSCOPIC ONLY Routine 6:20 AM CDT URINALYSIS AND REFLEX TO MICROSCOPIC AND CULTURE Routine 08/22/2024 6:20 AM CDT DIFFERENTIAL AUTO Routine 08/22/2024 2:30 AM CDT CBC WITH AUTO DIFFERENTIAL Routine 08/22 2:30 AM CDT EGFR Routine 08/22/2024 12:28 AM CDT CRITICAL RESULT CALLBACK HEMATOLOGY Routine 08/22/2024 12:28 AM CDT THYROID FUNCTION CASCADE Routine 025 12:28 AM CDT VITAMIN B12 Routine 08/22/2024 [...] 4:43 PM CDT RESPIRATORY PATHOGEN PANEL STAT 08/21 4:08 PM CDT CRP (ACUTE PHASE) STAT 08/21/2024 3:52 PM CDT EGFR STAT 08/21/2024 3:52 PM CDT DIFFERENTIAL AUTO STAT 08/21/2024 3:52 PM CDT COMPREHENSIVE METABOLIC PANEL STAT 08/21/2024 3:52 PM CDT CBC WITH AUTO DIFFERENTIAL STAT 08/21 3:52 PM CDT POC BLOOD GAS AND [...] PM CDT CBC WITH AUTO DIFFERENTIAL Routine 08/19 9:03 PM CDT RESPIRATORY PATHOGEN PANEL Routine 08/19 9:03 PM CDT DEVICE CHECK - REMOTE [...] cholangiocarcinoma (HCC) ERCP 08/07/2024 11:21 AM CDT HEMOGLOBIN A1C Routine 06/22/2024 2:10 PM OSS ARCHITECT Moderate aortic regurgitation Nonrheumatic mitral valve regurgitation Abnormal finding of blood chemistry, unspecified HEPATITIS C ANTIBODY Routine 06/08/2024 7:28 AM OSS ARCHITECT Hilar cholangiocarcinoma (HCC) LIPID PANEL Routine 06/08/2024 7:28 AM OSS ARCHITECT Hilar cholangiocarcinoma (HCC) from Last 3 Months or Most Recently Relevant to Health Maintenance Results * Urinalysis reflex to microscopic and culture Urine, clean voided (11/01/2024 8:13 PM CDT) Color, ur Yellow Yellow Clarity, ur Clear Clear [facility] Specific gravity, ur 1.025 1.003 - 1.030 [facility] pH, urine 6.0 [facility] Comment: Interpretive Data U rine pH [...] on 2017 Protein, ur ql Negative Negative [facility] Glucose, ur ql Negative Negative [facility] Ketones, ur Negative Negative [facility] Bilirubin, ur Negative Negative [facility] Blood, ur Negative Negative [facility] Urobilinogen, ur <2.0 <2.0 mg/dL [facility] Nitrite, ur Negative Negative [facility] Leukocyte esterase, ur Negative Negative [facility] UA reflex comment Reflex conditions for microscopic UA and culture not met. [facility] Urine, clean voided 11/01/2024 8:13 PM CDT 11/01/2024 8:17 PM CDT us Leela Sandhu ASPHALT ROLLER OPERATOR LAB MICROBIOLOGY - GENERA L ORDERABLES Final Result [facility] Department [place] [address] * X-ray chest 1 view (11/01/2024 8:06 PM CDT) Anatomical Region Laterality Modality Body, Chest N/A Computed Radiogr aphy 11/02/2024 7:23 AM CDT Impressions 11/02/2024 7:23 AM CDT Comparison is made to 10/15/2024. Port catheter and pacemaker unchanged in position. There is mild left basilar atelectasis. No pleural effusion, consolidation, or pneumothorax. The heart size is stable. Electronically signed by: Jacobo Grace M.D. Narrative 11/02/2024 7:23 AM CDT EXAMINATION: 1 view chest radiograph Procedure Note Jacobo Grace MD - 11/02/2024 EXAMINATION: 1 view chest radiograph IMPRESSION: Comparison is made to 10/15/2024. Port catheter and pacemaker unchanged in position. There is mild left basilar atelectasis. No pleural effusion, consolidation, or pneumothorax. The heart size is stable. Electronically signed by: Jacobo Grace M.D. us Leela Sandhu ASPHALT ROLLER OPERATOR IMG XR PROCEDURES Final R esult * POC Blood Gas and Chemistries, Arterial - (11/01/2024 7:56 PM CDT) Lactate POC 1.1 0.7 - 2.0 mmol/L Blood 11/01/2024 7:56 PM CDT 11/01/2024 7:56 PM CDT us Agustina Li MD PhD LAB POCT ORDERABLES - DEVIC E Final Result [facility] Department [place] [address] * eGFR (11/01/2024 7:51 PM CDT) eGFR >90 >=60 mL/min/1. 73 m2 [...] interpretive data was last reviewed 2021. Blood 11/01/2024 7:51 PM CDT 11/01/2024 8:04 PM CDT us Leela Sandhu ASPHALT ROLLER OPERATOR LAB BLOOD ORDERABLES Lila l Result [facility] Department [place] [address] * (ABNORMAL) Differential, auto (11/01/2024 7:51 PM CDT) Neutrophil abs 5.25 1.50 - 6.50 K/cumm Imm gran abs 0.08 0.00 - 0.10 K/cumm [facility] Lymphocyte abs 0.44(L) 0.80 - 3.30 K/cumm [facility] Monocyte abs 1.00(H) 0.20 - 0.80 K/cumm [facility] Eosinophil abs 0.03 0.00 - 0.50 K/cumm [facility] Basophil abs 0.02 0.00 - 0.10 K/cumm [facility] Neutrophil pct 76.9 % [facility] Comment: Interpretive Data Percent cell count reference ranges are not reported, since discordance with absolute values may lead to misinterpretation of CBC data. Current Interpretive Data was last revised on 2017. Imm gran pct 1.2 % [facility] Comment: Interpretive Data Percent cell count reference ranges are not reported, since discordance with absolute values may lead to misinterpretation of CBC data. Current Interpretive Data was last revised on 2017. Lymphocyte pct 6.5 % [facility] Comment: Interpretive Data Percent cell count reference ranges are not reported, since discordance with absolute values may lead to misinterpretation of CBC data. Current Interpretive Data was last revised on 2017. Monocyte pct 14.7 % [facility] Comment: Interpretive Data Percent cell count reference ranges are not reported, since discordance with absolute values may lead to misinterpretation of CBC data. Current Interpretive Data was last revised on 2017. Eosinophil pct 0.4 % [facility] Comment: Interpretive Data Percent cell count reference ranges are not reported, since discordance with absolute values may lead to misinterpretation of CBC data. Current Interpretive Data was last revised on 2017. Basophil pct 0.3 % [facility] Comment: Interpretive Data Percent cell count reference ranges are not reported, since discordance with absolute values may lead to misinterpretation of CBC data. Current Interpretive Data was last revised on 2017. Blood 11/01/2024 7:51 PM CDT 11/01/2024 8:04 PM CDT us Leela Sandhu ASPHALT ROLLER OPERATOR LAB BLOOD ORDERABLES Lila dawson Result Performing Organization Address [facility] Co de Phone Number [facility] [place] [employer] [place] [address] * (ABNORMAL) CBC with auto differential (11/01/2024 7:51 PM CDT) WBC 6.82 3.80 - 9.90 K/cumm Hgb 10.8(L) 13.0 - 17.5 g/dL [facility] Hct 33.1(L) 38.9 - 50.3 % [facility] Plt 225 150 - 400 K/cumm [facility] MPV 10.8 9.1 - 12.3 fL [facility] RBC 3.39(L) 4.30 - 5.80 M/cumm [facility] MCV 97.6(H) 81.3 - 96.4 fL [facility] MCH 31.9 27.1 - 33.3 pg [facility] MCHC 32.6 32.3 - 35.7 g/dL [facility] RDW CV 17.9(H) 11.1 - 14.9 % [facility] RDW SD 64.5(H) 35.7 - 48.1 fL [facility] NRBC abs 0.00 0.00 - 0.01 K/cumm [facility] Blood 11/01/2024 7:51 PM CDT 11/01/2024 8:04 PM CDT us Leela Sandhu ASPHALT ROLLER OPERATOR LAB BLOOD ORDERABLES Lila l Result Performing Organization Address [facility]/ZIP Co de Phone Number [facility] [place] [employer] [place] [address] * (ABNORMAL) Protime-INR (11/01/2024 7:51 PM CDT) PT 22.3(H) 9.7 - 13.0 sec INR 2.04(H) 0.90 - 1.20 [facility] Comment: Interpretive data Oral anticoagulant therapeutic ranges: Venous thromboembolism prophylaxis or treatment: 2.0-3.0 CARDIOLOGY Standard range: 2.0-3.0 High-intensity range: 2.5-3.5 Refer to indication-specific guidelines for appropriate target ranges for prosthetic heart valve replacement. Current interpretive data was last revised on 2019. Blood 11/01/2024 7:51 PM CDT 11/01/2024 8:06 PM CDT us Leela Sandhu ASPHALT ROLLER OPERATOR LAB BLOOD ORDERABLES Lila dawson Result [facility] Department [place] [address] * (ABNORMAL) Comprehensive metabolic panel (11/01/2024 7:51 PM CDT) Sodium 134(L) 135 - 145 mmol/L Potassium, pl 4.2 3.3 - 4.9 mmol/L [facility] Chloride 100 97 - 110 mmol/L [facility] CO2 24 22 - 32 mmol/L [facility] Anion gap 10 2 - 15 mmol/L [facility] BUN 38(H) 6 - 25 mg/dL [facility] Creatinine 0.80 0.80 - 1.30 mg/dL [facility] Glucose 111 70 - 199 mg/dL [facility] Comment: Interpretive Data Fasting glucose [...] interpretive data was last revised 2022. Calcium 9.3 8.5 - 10.3 mg/dL [facility] Bilirubin, total 0.6 0.1 - 1.2 mg/dL [facility] Protein, pl 7.2 6.5 - 8.5 g/dL [facility] Albumin 3.7 3.5 - 5.0 g/dL [facility] Alk phos 559(H) 40 - 130 Units/L [facility] ALT 118(H) 7 - 55 Units/L [facility] AST 95(H) 10 - 50 Units/L [facility] Blood 11/01/2024 7:51 PM CDT 11/01/2024 8:04 PM CDT us Leela Sandhu ASPHALT ROLLER OPERATOR LAB BLOOD ORDERABLES Lila dawson Result Performing Organization Address City/State/[facility] Co de Phone Number [facility] Department [place] [address] * Respiratory pathogen panel Nasopharyngeal (11/01/2024 7:44 PM CDT) Pathologist [facility] Influenza A RNA Not Detected Not Detected Influenza B RNA Not Detected Not Detected [facility] RSV RNA Not Detected Not Detected [facility] COVID-19 RNA Not Detected Not Detected [facility] Coronavirus 229E RNA Not Detected Not Detected [facility] Coronavirus HKU1 RNA Not Detected Not Detected [facility] Coronavirus NL63 RNA Not Detected Not Detected [facility] Coronavirus OC43 RNA Not Detected Not Detected [facility] Adenovirus DNA Not Detected Not Detected [facility] Metapneumovirus RNA Not Detected Not Detected [facility] Rhinovirus/Enterov irus RNA Not Detected Not Detected [facility] Parainfluenza 1 RNA Not Detected Not Detected [facility] Parainfluenza 2 RNA Not Detected Not Detected [facility] Parainfluenza 3 RNA Not Detected Not Detected [facility] Parainfluenza 4 RNA Not Detected Not Detected [facility] B. pertussis DNA Not Detected Not Detected [facility] B. parapertussis DNA Not Detected Not Detected [facility] C. pneumoniae DNA Not Detected Not Detected [facility] M. pneumoniae DNA Not Detected Not Detected [facility] Nasopharyngeal 11/01/2024 7: 44 PM CDT 11/01/2024 7:54 PM CDT Narrative [facility] - 11/01/2024 8:51 PM CDT Is the Patient experiencing symptoms consistent with COVID?->Yes Surveillance testing for transplant patient?->No Interpretive Data The [employer] FilmArray Respiratory Panel (RP2.1) assay is a [...] assay has FDA clearance for testing of ASPHALT ROLLER OPERATOR swabs. The performance of additional specimen types has been assessed by the performing laboratory. The performance characteristics of this assay have been determined by [facility] Molecular Infectious Disease Laboratory. Current interpretive data was last revised on 22. us Leela Silva Sandhu ASPHALT ROLLER OPERATOR LAB MICROBIOLOGY - GENERA L ORDERABLES Final Result [facility] Department [place] [address] * (ABNORMAL) Protime-INR (10/30/2024 9:59 AM CDT) INR 1.4(H) QUALIA (formerly known as LocalResponse)S [employer] Comment: Reference Range 0.9-1.1 Moderate-intensity Warfarin Therapy 2.0-3.0 Higher-intensity Warfarin Therapy 3.0-4.0 PT 14.8(H) 9.0 - 11.5 sec QUALIA (formerly known as LocalResponse)S [place] Comment: For additional information, please refer to http://education.[employer]/faq/BAI183 (This link is being provided for informational/ educational purposes only.) Blood 10/30/2024 9:59 AM CDT 10/30/2024 9:59 AM CDT Narrative [facility] - 10/30/2024 3:19 PM CDT FASTING:NO FASTING: NO us Chris Hart MD LAB BLOOD ORDERABLES Final Result Performing Organization Address City/[facility] Co de Phone Number [employer] [address] [place] [address] * eGFR (10/28/2024 1:00 PM CDT) eGFR >90 >=60 mL/min/1. 73 m2 [...] was last reviewed 2021. Testing performed by: [facility], [address] [place] [address] Blood 10/28/2024 1:00 PM CDT 10/28/2024 1:36 PM CDT us Agustina Li MD PhD LAB BLOOD ORDERABLES Final Result [facility] [address] Department [place] [address] * (ABNORMAL) Differential, auto (10/28/2024 1:00 PM CDT) Neutrophil abs 3.39 1.50 - 6.50 K/cumm Comment:Testing performed by : [facility], [facility], [address] [place] [address] Imm gran abs 0.02 0.00 - 0.10 K/cumm [facility] Comment:Testing performed by : [facility], [facility], [address] [place] [address] Lymphocyte abs 0.48(L) 0.80 - 3.30 K/cumm [facility] [place] Comment:Testing performed by : [facility] 2, [address] [place] [address] Monocyte abs 0.67 0.20 - 0.80 K/cumm [facility] [place] Comment:Testing performed by : [facility] 2, [address] [place] [address] Eosinophil abs 0.07 0.00 - 0.50 K/cumm [facility] Comment:Testing performed by : [facility], [facility], [address] [place] [address] Basophil abs 0.01 0.00 - 0.10 K/cumm [facility] Comment:Testing performed by : [facility], [facility], [address] [place] [address] Neutrophil pct 73.2 % [facility] Comment: Interpretive Data Percent cell count reference ranges are not reported, since discordance with absolute values may lead to misinterpretation of CBC data. Current Interpretive Data was last revised on 2017. Testing performed by: [facility], [facility], [address] [place] [address] Imm gran pct 0.4 % [facility] Comment: Interpretive Data Percent cell count reference ranges are not reported, since discordance with absolute values may lead to misinterpretation of CBC data. Current Interpretive Data was last revised on 2017. Testing performed by: [facility], [facility], [address] [place] [address] Lymphocyte pct 10.3 % [facility] Comment: Interpretive Data Percent cell count reference ranges are not reported, since discordance with absolute values may lead to misinterpretation of CBC data. Current Interpretive Data was last revised on 2017. Testing performed by: [facility], [facility], [address] [place] [address] Monocyte pct 14.4 % [facility] Comment: Interpretive Data Percent cell count reference ranges are not reported, since discordance with absolute values may lead to misinterpretation of CBC data. Current Interpretive Data was last revised on 2017. Testing performed by: [facility], [facility], [address] [place] [address] Eosinophil pct 1.5 % [facility] Comment: Interpretive Data Percent cell count reference ranges are not reported, since discordance with absolute values may lead to misinterpretation of CBC data. Current Interpretive Data was last revised on 2017. Testing performed by: [facility], [address] [place] [address] Basophil pct 0.2 % [facility] Comment: Interpretive Data Percent cell count reference ranges are not reported, since discordance with absolute values may lead to misinterpretation of CBC data. Current Interpretive Data was last revised on 2017. Testing performed by: [facility], [address] [place] [address] Blood 10/28/2024 1:00 PM CDT 10/28/2024 1:08 PM CDT us Agustina Li MD PhD LAB BLOOD ORDERABLES Final Result [facility] [address] [facility]. Department [place] [address] * (ABNORMAL) CBC with auto differential (10/28/2024 1:00 PM CDT) WBC 4.64 3.80 - 9.90 K/cumm Comment:Testing performed by : [facility] 2, [address] [place] [address] Hgb 10.2(L) 13.0 - 17.5 g/dL [facility] Comment:Testing performed by : [facility] 2, [address] [place] [address] Hct 32.1(L) 38.9 - 50.3 % [facility] [place] Comment:Testing performed by : [facility] 2, [address] [place] [address] Plt 186 150 - 400 K/cumm [facility] Comment:Testing performed by : [facility] 2, [address] [place] [address] MPV 10.0 9.1 - 12.3 fL [facility] Comment:Testing performed by : [facility] 2, [address] [place] [address] RBC 3.13(L) 4.30 - 5.80 M/cumm [facility] Comment:Testing performed by : [facility], [facility], [address] [place] [address] MCV 102.6(H) 81.3 - 96.4 fL [facility] Comment:Testing performed by : [place] [address], [address] [place] [address] MCH 32.6 27.1 - 33.3 pg [facility] Comment:Testing performed by : [place] [address], [address] [place] [address] MCHC 31.8(L) 32.3 - 35.7 g/dL [facility] Comment:Testing performed by : [place] [address], [address] [place] [address] RDW CV 18.2(H) 11.1 - 14.9 % [facility] Comment:Testing performed by : [place] [address], [address] [place] [address] RDW SD 66.8(H) 35.7 - 48.1 fL [facility] Comment:Testing performed by : [place] [address], [address] [place] [address] ANC Prelim 3.39 1.50 - 6.50 K/cumm [facility] Comment: Interpretive Data The rapid ANC is a preliminary automated count and may vary from the final ANC (Neut Abs) reported in the WBC differential that follows. Current interpretive data was last revised 2024. Testing performed by: [place] [address], [address] [place] [address] Blood 10/28/2024 1:00 PM CDT 10/28/2024 1:08 PM CDT Agustina Li MD PhD LAB BLOOD ORDERABLES Final Result Performing Organization Address [facility] de Phone Number [facility] [address] [facility]. Department [place] [employer] [place] [address] * (ABNORMAL) Cancer antigen 19-9 (10/28/2024 1:00 PM CDT) CA 19-9 ag 590.0(H) 0.0 - 35.0 units/mL Comment: Interpretive Data The Dereck CA 19-9 assay procedure was used. Results from different manufacturers or methods may not be comparable. Serial testing should be performed using the same method. Testing performed by: , [facility] [facility], [place]., [address] Blood 10/28/2024 1:00 PM CDT 10/28/2024 2:33 PM CDT Katie Reeder MD LAB BLOOD ORDERABLES Final Resul t Performing Organization Address [facility] de Phone Number [facility] [address] [facility]. Department [place] [employer] [place] [address] * (ABNORMAL) Protime-INR (10/28/2024 1:00 PM CDT) PT 15.3(H) 9.7 - 13.0 sec Comment:Testing performed by : [facility], [address] [facility], [place] [address] INR 1.41(H) 0.90 - 1.20 [facility] Comment: Interpretive data Oral anticoagulant therapeutic ranges: Venous thromboembolism prophylaxis or treatment: 2.0-3.0 CARDIOLOGY Standard range: 2.0-3.0 High-intensity range: 2.5-3.5 Refer to indication-specific guidelines for appropriate target ranges for prosthetic heart valve replacement. Current interpretive data was last revised on 2019. Testing performed by: [facility], [address] [place] [address] Blood 10/28/2024 1:00 PM CDT 10/28/2024 1:36 PM CDT us Agustina Li MD PhD LAB BLOOD ORDERABLES Final Result [facility] [address] [place] [address] * (ABNORMAL) Comprehensive metabolic panel (10/28/2024 1:00 PM CDT) Sodium 136 135 - 145 mmol/L Comment:Testing performed by : [facility], [address], [place] [address] Potassium, pl 4.0 3.3 - 4.9 mmol/L STAN ALVAREZ Comment:Testing performed by : [facility], [address], [place] [address] Chloride 103 97 - 110 mmol/L STAN ALVAREZCH Comment:Testing performed by : [facility], [address], [place] [address] CO2 22 22 - 32 mmol/L CERKERI COREYWCH Comment:Testing performed by : [facility], [address], [place] [address] Anion gap 11 2 - 15 mmol/L STAN COREYW Comment:Testing performed by : [facility], [address], [place] [address] BUN 38(H) 6 - 25 mg/dL STAN COREYWCH Comment:Testing performed by : [facility], [address], [place] [address] Creatinine 0.80 0.80 - 1.30 mg/dL STAN COREYWCH Comment:Testing performed by : [facility], [address], [place] [address] Glucose 126 70 - 199 mg/dL CERKERI COREYWCH Comment: Interpretive Data Fasting glucose >/= 126 [...] was last revised 2022. Testing performed by: [facility], [address], [place] [address] Calcium 8.8 8.5 - 10.3 mg/dL CERNER BJWCH Comment:Testing performed by : [facility], [address], [place] [address] Bilirubin, total 0.4 0.1 - 1.2 mg/dL CERNER BJWCH Comment:Testing performed by : [facility], [address], [place] [address] Protein, pl 7.0 6.5 - 8.5 g/dL CERNER BJWCH Comment:Testing performed by : [facility], [address], [place] [address] Albumin 3.9 3.5 - 5.0 g/dL CERNER BJWCH Comment:Testing performed by : [facility], [address], [place] [address] Alk phos 408(H) 40 - 130 Units/L CERNER BJWCH Comment:Testing performed by : [facility], [address], [place] [address] ALT 64(H) 7 - 55 Units/L CERNER BJWCH Comment:Testing performed by : [facility], [address], [place] [address] AST 53(H) 10 - 50 Units/L CERNER BJWCH Comment:Testing performed by : [facility], [address], [place] [address] Blood 10/28/2024 1:00 PM CDT 10/28/2024 1:36 PM CDT us Agustina Li MD PhD LAB BLOOD ORDERABLES Final Result [facility] [address] Department [place] [address] * (ABNORMAL) Protime-INR (10/26/2024 8:11 AM CDT) INR 1.4(H) QUALIA (formerly known as LocalResponse)rAmand [place] Comment: Reference Range 0.9-1.1 Moderate-intensity Warfarin Therapy 2.0-3.0 Higher-intensity Warfarin Therapy 3.0-4.0 PT 14.6(H) 9.0 - 11.5 sec QUALIA (formerly known as LocalResponse)[place] Comment: For additional information, please refer to http://education.SecondMarket/faq/OEA446 (This link is being provided for informational/ educational purposes only.) Blood 10/26/2024 8:11 AM CDT 10/26/2024 8:11 AM CDT Chris Hart MD LAB BLOOD ORDERABLES Final Result [facility] [address] [place] [address] * eGFR (10/23/2024 3:26 AM CDT) eGFR 80 >=60 mL/min/1. 73 m2 Comment: Interpretive Data [...] interpretive data was last reviewed 2021. Blood 10/23/2024 3:26 AM CDT 10/23/2024 3:49 AM CDT us Jennifer Jeff MD LAB BLOOD ORDERABLES Final Resul t [facility] Department [place] [address] * (ABNORMAL) Differential, auto (10/23/2024 3:26 AM CDT) Neutrophil abs 4.28 1.50 - 6.50 K/cumm Imm gran abs 0.07 0.00 - 0.10 K/cumm [facility] Lymphocyte abs 0.60(L) 0.80 - 3.30 K/cumm [facility] Monocyte abs 0.79 0.20 - 0.80 K/cumm [facility] Eosinophil abs 0.06 0.00 - 0.50 K/cumm [facility] Basophil abs 0.02 0.00 - 0.10 K/cumm [facility] Neutrophil pct 73.6 % [facility] Comment: Interpretive Data Percent cell count reference ranges are not reported, since discordance with absolute values may lead to misinterpretation of CBC data. Current Interpretive Data was last revised on 2017. Imm gran pct 1.2 % [facility] Comment: Interpretive Data Percent cell count reference ranges are not reported, since discordance with absolute values may lead to misinterpretation of CBC data. Current Interpretive Data was last revised on 2017. Lymphocyte pct 10.3 % [facility] Comment: Interpretive Data Percent cell count reference ranges are not reported, since discordance with absolute values may lead to misinterpretation of CBC data. Current Interpretive Data was last revised on 2017. Monocyte pct 13.6 % [facility] Comment: Interpretive Data Percent cell count reference ranges are not reported, since discordance with absolute values may lead to misinterpretation of CBC data. Current Interpretive Data was last revised on 2017. Eosinophil pct 1.0 % [facility] Comment: Interpretive Data Percent cell count reference ranges are not reported, since discordance with absolute values may lead to misinterpretation of CBC data. Current Interpretive Data was last revised on 2017. Basophil pct 0.3 % [facility] Comment: Interpretive Data Percent cell count reference ranges are not reported, since discordance with absolute values may lead to misinterpretation of CBC data. Current Interpretive Data was last revised on 2017. Blood 10/23/2024 3:26 AM CDT 10/23/2024 3:49 AM CDT Jennifer Jeff MD LAB BLOOD ORDERABLES Final Resul t Performing Organization Address [facility] Co de Phone Number [facility] Department [place] [address] * (ABNORMAL) CBC with auto differential (10/23/2024 3:26 AM CDT) WBC 5.82 3.80 - 9.90 K/cumm Hgb 9.3(L) 13.0 - 17.5 g/dL [facility] Hct 28.8(L) 38.9 - 50.3 % [facility] Plt 155 150 - 400 K/cumm [facility] MPV 10.4 9.1 - 12.3 fL [facility] RBC 2.89(L) 4.30 - 5.80 M/cumm [facility] MCV 99.7(H) 81.3 - 96.4 fL [facility] MCH 32.2 27.1 - 33.3 pg [facility] MCHC 32.3 32.3 - 35.7 g/dL [facility] RDW CV 18.7(H) 11.1 - 14.9 % [facility] RDW SD 65.2(H) 35.7 - 48.1 fL [facility] NRBC abs 0.00 0.00 - 0.01 K/cumm [facility] Blood 10/23/2024 3:26 AM CDT 10/23/2024 3:49 AM CDT Jennifer Jeff MD LAB BLOOD ORDERABLES Final Resul t Performing Organization Address City/[facility]/ZIP Co de Phone Number [facility] Department [place] [address] * (ABNORMAL) Phosphorus (10/23/2024 3:26 AM CDT) Pathologist [facility] Phosphorus, pl 2.1(L) 2.3 - 4.5 mg/dL Blood 10/23/2024 3:26 AM CDT 10/23/2024 3:49 AM CDT Jennifer Jeff MD LAB BLOOD ORDERABLES Final Resul t [facility] Department [place] [address] * (ABNORMAL) Comprehensive metabolic panel (10/23/2024 3:26 AM CDT) [facility] Sodium 139 135 - 145 mmol/L Potassium, pl 4.4 3.3 - 4.9 mmol/L [facility] Chloride 105 97 - 110 mmol/L [facility] CO2 27 22 - 32 mmol/L [facility] Anion gap 7 2 - 15 mmol/L [facility] BUN 27(H) 6 - 25 mg/dL [facility] Creatinine 0.98 0.80 - 1.30 mg/dL [facility] Glucose 151 70 - 199 mg/dL [facility] Comment: Interpretive Data Fasting glucose [...] interpretive data was last revised 2022. Calcium 8.5 8.5 - 10.3 mg/dL [facility] Bilirubin, total 0.4 0.1 - 1.2 mg/dL [facility] Protein, pl 6.2(L) 6.5 - 8.5 g/dL [facility] Albumin 3.2(L) 3.5 - 5.0 g/dL [facility] Alk phos 417(H) 40 - 130 Units/L CERNER [facility] ALT 62(H) 7 - 55 Units/L [facility] AST 55(H) 10 - 50 Units/L [facility] Blood 10/23/2024 3:26 AM CDT 10/23/2024 3:49 AM CDT us Jennifer Jeff MD LAB BLOOD ORDERABLES Final Resul t [facility] Department [place] [address] * TRANSESOPHAGEAL ECHO (MARK) W DOPPLER/CF WO CONTRAST (10/22/2024 2:40 PM CDT) Anatomical Region Laterality Modality Echocardiography 10/22/2024 2:01 PM CDT Narrative 10/23/2024 2:16 AM CDT [facility] [place] [address] Transesophageal Echocardiographic Report Patient Name: SULMA BAZAN A : 1950 (74y 3m) Gender: M Study Date: 10/22/2024 02:01:26 PM Ht(Inch): Wt(Lb): BSA: In Tube Conversion Technician: Location: [id number] Order Provider: ELSIE FLORES BMI: Ref Provider: ELSIE FLORES - PROCEDURES: Transesophageal Echo Report: Echocardiography, transesophageal (MARK) for guidance of a transcatheter intracardiac or great vessel(s) structural intervention(s) including image acquisition, interpretation, and report; Doppler echocardiography, limited pulsed wave and/or continuous wave with spectral display; Doppler echocardiography color flow velocity mapping; 3D echocardiography, rendering with interpretation and reporting, not requiring post-processing on an independent workstation. Performing Physician: Performed by Jeffry Bhatt MD. MARK probe placed by Jeffry Bhatt MD. Consent: Informed consent was obtained from the patient in writing. The risks and benefits of the procedure were explained in detail to the patient, including but not limited to the risk of aspiration, dysphagia, and esophageal perforation. After a thorough discussion of these risks and benefits, the patient agreed to proceed. Description: A complete transesophageal echocardiogram study was performed. Additional evaluation with color flow Doppler and limited spectral Doppler was performed. Continuous HR, BP, ECG, and O2 sat monitoring was performed during the procedure. The patient received pre-procedural education. Baseline vital signs and a focused history and physical were obtained. The MARK study was then performed under deep sedation with IV propofol provided by the anesthesiology service. After suitable sedation, the probe was passed without difficulty. Continuous pulse oximetry, electrocardiographic monitoring, and blood pressure monitoring were maintained throughout the procedure. No complications were noted. Pre Vitals: HR: 60 bpm. RR: 20. BP: 130/67 mmHg. Sp02: 97 %. Post Vitals: HR: 67 bpm. RR: 18. BP: 103/57 mmHg. Sp02: 100 %. INDICATIONS: Mitral valve disease. FINDINGS: Left Ventricle: The left ventricle appears normal in size. Left ventricular systolic function appears normal. Right Ventricle: The right ventricule appears normal in size. Right ventricular systolic function appears normal. Left Atrium: Severely dilated left atrium. The left atrial appendage is normal in appearance with no evidence of thrombus. Right Atrium: The right atrium is normal in size. Atrial Septum: Normal interatrial septum. Mitral Valve: Mildly thickened MV leaflets, marked prolapse of P2, lesser extent P3 scallops, partial flail medial P2. Moderate to severe mitral regurgitation. Two separate MR jets, a larger eccentric jet at the partial flail portion of medial P2, a smaller central jet at the lateral side of P2. Mean MV gradient 1 mmHg. MV area 7cm2. Aortic Valve: Trileaflet aortic valve. The aortic cusps appear mildly thickened. Moderate aortic valve regurgitation. AR 2D vena contracte 0.5cm. Tricuspid Valve: Normal tricuspid valve structure. There is trivial tricuspid regurgitation. Pulmonic Valve: Normal pulmonic valve structure. Pericardium: Normal pericardium with no pericardial effusion. Aorta: There is mild aortic root dilation. Pulmonary Veins: Pulmonary veins are normal in appearance and pulse Doppler interrogation shows normal systolic predominant flow. CONCLUSIONS: 1. Mildly thickened MV leaflets, marked prolapse of P2, lesser extent P3 scallops, partial flail medial P2. Moderate to severe mitral regurgitation. Two separate MR jets, a larger eccentric jet at the partial flail portion of medial P2, a smaller central jet at the lateral side of P2. Mean MV gradient 1 mmHg. MV area 7cm2. 2. Trileaflet aortic valve. The aortic cusps appear mildly thickened. Moderate aortic valve regurgitation. AR 2D vena contracte 0.5cm. 3. There is no evidence of vegetations by transesophageal echocardiography. ATTESTATION: I have personally reviewed and interpreted this study without fellow or resident. - DISCLAIMER: The study images and the final report will be retained in the patient chart by the Echo Laboratory for the legally required time period. This chart constitutes the legal record of any testing performed. Electronically Signed By: Jeffry Bhatt MD 10/23/2024 2:15:59 AM CDT Procedure Note Jeffry Bhatt MD - 10/23/2024 [facility] [place] [address] Transesophageal Echocardiographic Report Patient Name: SULMA BAZAN A : 1950 (74y 3m) Gender: M Study Date: 10/22/2024 02:01:26 PM Ht(Inch): Wt(Lb): BSA: In Tube Conversion Technician: Location: [id number] Order Provider: ELSIE FLORES BMI: Ref Provider: ELSIE FLORES - PROCEDURES: Transesophageal Echo Report: Echocardiography, transesophageal (MARK) forguidance of a transcatheter intracardiac or great vessel(s) structural intervention(s)including image acquisition, interpretation, and report; Doppler echocardiography, limitedpulsed wave and/or continuous wave with spectral display; Doppler echocardiographycolor flow velocity mapping; 3D echocardiography, rendering with interpretation andreporting, not requiring post-processing on an independent workstation. Performing Physician: Performed by Jeffry Bhatt MD. MARK probe placed byJeffry Bhatt MD. Consent: Informed consent was obtained from the patient in writing. Therisks and benefits of the procedure were explained in detail to the patient,including but not limited to the risk of aspiration, dysphagia, and esophageal perforation.After a thorough discussion of these risks and benefits, the patient agreed toproceed. Description: A complete transesophageal echocardiogram study wasperformed. Additional evaluation with color flow Doppler and limited spectral Doppler wasperformed. Continuous HR, BP, ECG, and O2 sat monitoring was performed during the procedure. Thepatient received pre-procedural education. Baseline vital signs and a focusedhistory and physical were obtained. The MARK study was then performed under deepsedation with IV propofol provided by the anesthesiology service. After suitable sedation,the probe was passed without difficulty. Continuous pulse oximetry, electrocardiographicmonitoring, and blood pressure monitoring were maintained throughout the procedure. Nocomplications were noted. Pre Vitals: HR: 60 bpm. RR: 20. BP: 130/67 mmHg. Sp02: 97 %. Post Vitals: HR: 67 bpm. RR: 18. BP: 103/57 mmHg. Sp02: 100 %. INDICATIONS: Mitral valve disease. FINDINGS: Left Ventricle: The left ventricle appears normal in size. Leftventricular systolic function appears normal. Right Ventricle: The right ventricule appears normal in size. Rightventricular systolic function appears normal. Left Atrium: Severely dilated left atrium. The left atrial appendage isnormal in appearance with no evidence of thrombus. Right Atrium: The right atrium is normal in size. Atrial Septum: Normal interatrial septum. Mitral Valve: Mildly thickened MV leaflets, marked prolapse of P2, lesserextent P3 scallops, partial flail medial P2. Moderate to severe mitralregurgitation. Two separate MR jets, a larger eccentric jet at the partial flail portion of medial P2,a smaller central jet at the lateral side of P2. Mean MV gradient 1 mmHg. MV [id number]. Aortic Valve: Trileaflet aortic valve. The aortic cusps appear mildlythickened. Moderate aortic valve regurgitation. AR 2D vena contracte 0.5cm. Tricuspid Valve: Normal tricuspid valve structure. There is trivialtricuspid regurgitation. Pulmonic Valve: Normal pulmonic valve structure. Pericardium: Normal pericardium with no pericardial effusion. Aorta: There is mild aortic root dilation. Pulmonary Veins: Pulmonary veins are normal in appearance and pulseDoppler interrogation shows normal systolic predominant flow. CONCLUSIONS: 1. Mildly thickened MV leaflets, marked prolapse of P2, lesser extent [id number], partial flail medial P2. Moderate to severe mitral regurgitation. Twoseparate MR jets, a larger eccentric jet at the partial flail portion of medial P2, a smallercentral jet at the lateral side of P2. Mean MV gradient 1 mmHg. MV area 7cm2. 2. Trileaflet aortic valve. The aortic cusps appear mildly thickened.Moderate aortic valve regurgitation. AR 2D vena contracte 0.5cm. 3. There is no evidence of vegetations by transesophagealechocardiography. ATTESTATION: I have personally reviewed and interpreted this study without fellow orresident. - DISCLAIMER: The study images and the final report will be retained in the patientchart by the Echo Laboratory for the legally required time period. This chart constitutesthe legal record of any testing performed. Electronically Signed By: Jeffry Bhatt MD 10/23/2024 2:15:59 AM CDT Elsie Flores MD CV ECHO PROCEDURES Final Result * eGFR (10/22/2024 1:43 AM CDT) Pathologist [facility] eGFR 89 >=60 mL/min/1. 73 m2 Comment: [...] interpretive data was last reviewed 2021. Blood 10/22/2024 1:43 AM CDT 10/22/2024 2:00 AM CDT us Jennifer Jeff MD LAB BLOOD ORDERABLES Final Resul t [facility] Department [place] [address] * (ABNORMAL) Differential, auto (10/22/2024 1:43 AM CDT) [facility] Neutrophil abs 4.29 1.50 - 6.50 K/cumm Imm gran abs 0.08 0.00 - 0.10 K/cumm [facility] Lymphocyte abs 0.64(L) 0.80 - 3.30 K/cumm [facility] Monocyte abs 0.71 0.20 - 0.80 K/cumm [facility] Eosinophil abs 0.06 0.00 - 0.50 K/cumm [facility] Basophil abs 0.02 0.00 - 0.10 K/cumm [facility] Neutrophil pct 74.1 % [facility] Comment: Interpretive Data Percent cell count reference ranges are not reported, since discordance with absolute values may lead to misinterpretation of CBC data. Current Interpretive Data was last revised on 2017. Imm gran pct 1.4 % STAN [facility] Comment: Interpretive Data Percent cell count reference ranges are not reported, since discordance with absolute values may lead to misinterpretation of CBC data. Current Interpretive Data was last revised on 2017. Lymphocyte pct 11.0 % STAN [facility] Comment: Interpretive Data Percent cell count reference ranges are not reported, since discordance with absolute values may lead to misinterpretation of CBC data. Current Interpretive Data was last revised on 2017. Monocyte pct 12.2 % STAN [facility] Comment: Interpretive Data Percent cell count reference ranges are not reported, since discordance with absolute values may lead to misinterpretation of CBC data. Current Interpretive Data was last revised on 2017. Eosinophil pct 1.0 % STAN [facility] Comment: Interpretive Data Percent cell count reference ranges are not reported, since discordance with absolute values may lead to misinterpretation of CBC data. Current Interpretive Data was last revised on 2017. Basophil pct 0.3 % STAN [facility] Comment: Interpretive Data Percent cell count reference ranges are not reported, since discordance with absolute values may lead to misinterpretation of CBC data. Current Interpretive Data was last revised on 2017. Blood 10/22/2024 1:43 AM CDT 10/22/2024 1:58 AM CDT us Jennifer Jeff MD LAB BLOOD ORDERABLES Final Resul t [facility] Department of Laboratories [place], [place] [id number] * (ABNORMAL) CBC with auto differential (10/22/2024 1:43 AM CDT) WBC 5.80 3.80 - 9.90 K/cumm Hgb 9.8(L) 13.0 - 17.5 g/dL [facility] Hct 30.2(L) 38.9 - 50.3 % [facility] Plt 177 150 - 400 K/cumm [facility] MPV 10.4 9.1 - 12.3 fL [facility] RBC 3.06(L) 4.30 - 5.80 M/cumm [facility] MCV 98.7(H) 81.3 - 96.4 fL [facility] MCH 32.0 27.1 - 33.3 pg [facility] MCHC 32.5 32.3 - 35.7 g/dL [facility] RDW CV 18.7(H) 11.1 - 14.9 % [facility] RDW SD 66.1(H) 35.7 - 48.1 fL [facility] NRBC abs 0.02(H) 0.00 - 0.01 K/cumm [facility] Blood 10/22/2024 1:43 AM CDT 10/22/2024 1:58 AM CDT Jennifer Jeff MD LAB BLOOD ORDERABLES Final Resul t Performing Organization Address [facility] Co de Phone Number [facility] Department [place] [employer] [place] [address] * Type and screen (10/22/2024 1:43 AM CDT) Pathologist [facility] Minna, indirect Negative ABO Rh A Positive [facility] Blood 10/22/2024 1:43 AM CDT 10/22/2024 1:57 AM CDT Narrative [facility] - 10/22/2024 2:55 AM CDT Has the patient had Daratumumab or Isatuximab in the past 6 months?->Unknown Jennifer Jeff MD LAB BLOOD BANK TEST ORDERABLES F inal Result [facility] [place] [employer] [place] [address] * Uric acid (10/22/2024 1:43 AM CDT) Pathologist [facility] Uric acid 4.3 3.0 - 8.0 mg/dL Blood 10/22/2024 1:4 3 AM CDT 10/22/2024 1:58 AM CDT Narrative [facility] - 10/22/2024 2:33 AM CDT Saturday and only. Morning draw. . Jennifer Jeff MD LAB BLOOD ORDERABLES Final Resul t Performing Organization Address [facility] Co de Phone Number [facility] [employer] [place] [address] * Phosphorus (10/22/2024 1:43 AM CDT) [facility] Phosphorus, pl 2.6 2.3 - 4.5 mg/dL Blood 10/22/2024 1:43 AM CDT 10/22/2024 1:58 AM CDT Jennifer Jeff MD LAB BLOOD ORDERABLES Final Resul t Performing Organization Address [facility] [place] [address] * (ABNORMAL) Lactate dehydrogenase (LD) (10/22/2024 1:43 AM CDT) [facility] Lactate dehydrogenase (LDH) 335(H) 100 - 250 Units/L Blood 10/22/2024 1:43 AM CDT 10/22/2024 1:58 AM CDT Narrative [facility] - 10/22/2024 2:33 AM CDT Saturday and only. Morning draw. us Jennifer Jeff MD LAB BLOOD ORDERABLES Final Resul t Performing Organization Address [facility] de Phone Number [facility] [employer] [place] [address] * (ABNORMAL) Comprehensive metabolic panel (10/22/2024 1:43 AM CDT) Sodium 137 135 - 145 mmol/L Potassium, pl 4.3 3.3 - 4.9 mmol/L [facility] Chloride 100 97 - 110 mmol/L [facility] CO2 26 22 - 32 mmol/L [facility] Anion gap 11 2 - 15 mmol/L [facility] BUN 24 6 - 25 mg/dL [facility] Creatinine 0.89 0.80 - 1.30 mg/dL [facility] Glucose 112 70 - 199 mg/dL [facility] Comment: Interpretive Data Fasting glucose [...] 2022. Calcium 8.9 8.5 - 10.3 mg/dL [facility] Bilirubin, total 0.6 0.1 - 1.2 mg/dL [facility] Protein, pl 6.8 6.5 - 8.5 g/dL [facility] Albumin 3.2(L) 3.5 - 5.0 g/dL [facility] Alk phos 514(H) 40 - 130 Units/L [facility] ALT 89(H) 7 - 55 Units/L [facility] AST 112(H) 10 - 50 Units/L [facility] Blood 10/22/2024 1:43 AM CDT 10/22/2024 1:58 AM CDT us Jennifer Jeff MD LAB BLOOD ORDERABLES Final Resul t [facility] Department [place] [address] * eGFR (10/21/2024 3:01 AM CDT) eGFR 90 >=60 mL/min/1. 73 [...] interpretive data was last reviewed 2021. Blood 10/21/2024 3:01 AM CDT 10/21/2024 3:18 AM CDT us Jennifer Jeff MD LAB BLOOD ORDERABLES Final Resul t [facility] Department [place] [address] * (ABNORMAL) Differential, auto (10/21/2024 3:01 AM CDT) Pathologist [facility] Neutrophil abs 4.86 1.50 - 6.50 K/cumm Imm gran abs 0.14(H) 0.00 - 0.10 K/cumm [facility] Lymphocyte abs 0.61(L) 0.80 - 3.30 K/cumm [facility] Monocyte abs 0.78 0.20 - 0.80 K/cumm [facility] Eosinophil abs 0.05 0.00 - 0.50 K/cumm [facility] Basophil abs 0.01 0.00 - 0.10 K/cumm [facility] Neutrophil pct 75.2 % [facility] Comment: Interpretive Data Percent cell count reference ranges are not reported, since discordance with absolute values may lead to misinterpretation of CBC data. Current Interpretive Data was last revised on 2017. Imm gran pct 2.2 % [facility] Comment: Interpretive Data Percent cell count reference ranges are not reported, since discordance with absolute values may lead to misinterpretation of CBC data. Current Interpretive Data was last revised on 2017. Lymphocyte pct 9.5 % [facility] Comment: Interpretive Data Percent cell count reference ranges are not reported, since discordance with absolute values may lead to misinterpretation of CBC data. Current Interpretive Data was last revised on 2017. Monocyte pct 12.1 % [facility] Comment: Interpretive Data Percent cell count reference ranges are not reported, since discordance with absolute values may lead to misinterpretation of CBC data. Current Interpretive Data was last revised on 2017. Eosinophil pct 0.8 % [facility] Comment: Interpretive Data Percent cell count reference ranges are not reported, since discordance with absolute values may lead to misinterpretation of CBC data. Current Interpretive Data was last revised on 2017. Basophil pct 0.2 % [facility] Comment: Interpretive Data Percent cell count reference ranges are not reported, since discordance with absolute values may lead to misinterpretation of CBC data. Current Interpretive Data was last revised on 2017. Blood 10/21/2024 3:01 AM CDT 10/21/2024 3:18 AM CDT us Jennifer Jeff MD LAB BLOOD ORDERABLES Final Resul t [facility] Department [place] [address] * (ABNORMAL) CBC with auto differential (10/21/2024 3:01 AM CDT) WBC 6.45 3.80 - 9.90 K/cumm Hgb 9.3(L) 13.0 - 17.5 g/dL [facility] Hct 27.8(L) 38.9 - 50.3 % [facility] Plt 164 150 - 400 K/cumm [facility] MPV 10.0 9.1 - 12.3 fL [facility] RBC 2.82(L) 4.30 - 5.80 M/cumm [facility] MCV 98.6(H) 81.3 - 96.4 fL [facility] MCH 33.0 27.1 - 33.3 pg [facility] MCHC 33.5 32.3 - 35.7 g/dL [facility] RDW CV 18.2(H) 11.1 - 14.9 % [facility] RDW SD 63.2(H) 35.7 - 48.1 fL [facility] NRBC abs 0.02(H) 0.00 - 0.01 K/cumm [facility] Blood 10/21/2024 3:01 AM CDT 10/21/2024 3:18 AM CDT Jennifer Jeff MD LAB BLOOD ORDERABLES Final Resul t Performing Organization Address [facility] de Phone Number [facility] Department [place] [address] * (ABNORMAL) aPTT (10/21/2024 3:01 AM CDT) aPTT 41(H) 28 - 38 sec Comment: Interpretive Data Heparin therapeutic range: 66.0 - 100.0 seconds. Range based on correlation with therapeutic heparin activity range of 0.3 - 0.7 Units/mL. Current interpretive data was last revised on 2023. Blood 10/21/2024 3:01 AM CDT 10/21/2024 3:14 AM CDT us Edgardo Castro MD LAB BLOOD ORDERABLES Final Result Performing Organization Address [facility]/ZIP Co de Phone Number [facility] Department [place] [employer] [place] [address] * (ABNORMAL) Protime-INR (10/21/2024 3:01 AM CDT) PT 13.5(H) 9.7 - 13.0 sec INR 1.24(H) 0.90 - 1.20 [facility] Comment: Interpretive data Oral anticoagulant therapeutic ranges: Venous thromboembolism prophylaxis or treatment: 2.0-3.0 CARDIOLOGY Standard range: 2.0-3.0 High-intensity range: 2.5-3.5 Refer to indication-specific guidelines for appropriate target ranges for prosthetic heart valve replacement. Current interpretive data was last revised on 2019. Blood 10/21/2024 3:01 AM CDT 10/21/2024 3:14 AM CDT Edgardo Castro MD LAB BLOOD ORDERABLES Final Result Performing Organization Address City/[facility]/ZIP Co de Phone Number [facility] Department [place] [address] * (ABNORMAL) Phosphorus (10/21/2024 3:01 AM CDT) Pathologist [facility] Phosphorus, pl 2.1(L) 2.3 - 4.5 mg/dL Blood 10/21/2024 3:01 AM CDT 10/21/2024 3:18 AM CDT Jennifer Jeff MD LAB BLOOD ORDERABLES Final Resul t Performing Organization Address City/[facility]/ZIP Co de Phone Number [facility] [place] [address] * (ABNORMAL) Comprehensive metabolic panel (10/21/2024 3:01 AM CDT) Sodium 138 135 - 145 mmol/L Potassium, pl 4.2 3.3 - 4.9 mmol/L [facility] Chloride 104 97 - 110 mmol/L [facility] CO2 27 22 - 32 mmol/L [facility] Anion gap 7 2 - 15 mmol/L [facility] BUN 26(H) 6 - 25 mg/dL [facility] Creatinine 0.88 0.80 - 1.30 mg/dL [facility] Glucose 126 70 - 199 mg/dL [facility] Comment: Interpretive Data Fasting glucose [...] 2022. Calcium 8.3(L) 8.5 - 10.3 mg/dL [facility] Bilirubin, total 0.4 0.1 - 1.2 mg/dL [facility] Protein, pl 6.4(L) 6.5 - 8.5 g/dL [facility] Albumin 3.0(L) 3.5 - 5.0 g/dL [facility] Alk phos 321(H) 40 - 130 Units/L [facility] ALT 65(H) 7 - 55 Units/L [facility] AST 58(H) 10 - 50 Units/L [facility] Blood 10/21/2024 3:01 AM CDT 10/21/2024 3:18 AM CDT us Jennifer Jeff MD LAB BLOOD ORDERABLES Final Resul t [facility] Department [place] [address] * ECG 12 lead (10/20/2024 1:34 PM CDT) Pathologist [facility] Ventricular Rate EKG/Min 60 BPM [facility] Atrial Rate 60 BPM [facility] PA-Interval (MSEC) 206 ms [facility] QRS-Interval (MSEC) 96 ms [facility] QT-Interval (MSEC) 446 ms [facility] QTc 446 ms [facility] P Flora 18 degrees [facility] R Flora -28 degrees [facility] T Flora 3 degrees [facility] Diagnosis Atrial-paced rhythm Minimal voltage criteria for LVH, may be normal variant ( R in aVL ) Abnormal ECG When compared with ECG of 07-SEP-2024 11:34, T wave inversion no longer evident in Anterolateral leads QT has shortened Confirmed by JOSEE AKINS M.D ([id number]) on 10/21/2024 9:32:38 AM [facility] 10/20/2024 1:34 PM CDT 10/21/2024 9:32 AM CDT us Edgardo Castro MD ECG ORDERABLES Final Resul t [facility] * Heparin anti factor Xa activity (10/20/2024 12:10 PM CDT) [facility] Anti Factor Xa 1.35 IUnits/mL Comment: Interpretive Data Enoxaparin therapeutic range (peak): VTE treatment, Q12hr dosin.60-1.00 IUnits/mL VTE treatment, Q24hr dosin.00-2.00 IUnits/mL Q24hr dosing for renal impairment (CrCl <30 mL/min): 0.60-1.00 IUnits/mL VTE prevention: 0.10-0.40 IUnits/mL - Anti-Xa therapeutic ranges apply to blood samples drawn 4 hours after last dose (peak). - Unfractionated heparin (UFH) therapeutic range: 0.30-0.70 IUnits/mL - Direct factor Xa inhibitors (rivaroxaban, apixaban): Results must be interpreted qualitatively. No activity detected suggests little anticoagulant activity. - In severe antithrombin deficiency, anti-Xa measurement may be inaccurate. - Interpretive guidelines developed in adult populations. Interpretive guidelines for pediatric patients have not been rigorously defined. - Current interpretive data was last revised on 2018. Blood 10/20/2024 12:1 0 PM CDT 10/20/2024 12:29 PM CDT Narrative [facility] - 10/20/2024 12:50 PM CDT Please draw at 1215 - timing is important. Thanks! us Edgardo Castro MD LAB BLOOD ORDERABLES Final Result Performing Organization Address [facility] Co de Phone Number [facility] Department [place] [address] * eGFR (10/20/2024 3:02 AM CDT) eGFR 88 >=60 mL/min/1. 73 m2 Comment: Interpretive Data [...] interpretive data was last reviewed 2021. Blood 10/20/2024 3:02 AM CDT 10/20/2024 4:36 AM CDT us Jennifer Jeff MD LAB BLOOD ORDERABLES Final Resul t Performing Organization Address [facility] Co de Phone Number [facility] [place] [address] * (ABNORMAL) Differential, auto (10/20/2024 3:02 AM CDT) Neutrophil abs 4.13 1.50 - 6.50 K/cumm Imm gran abs 0.23(H) 0.00 - 0.10 K/cumm [facility] Lymphocyte abs 0.75(L) 0.80 - 3.30 K/cumm [facility] Monocyte abs 0.65 0.20 - 0.80 K/cumm [facility] Eosinophil abs 0.06 0.00 - 0.50 K/cumm [facility] Basophil abs 0.01 0.00 - 0.10 K/cumm [facility] Neutrophil pct 70.9 % [facility] Comment: Interpretive Data Percent cell count reference ranges are not reported, since discordance with absolute values may lead to misinterpretation of CBC data. Current Interpretive Data was last revised on 2017. Imm gran pct 3.9 % [facility] Comment: Interpretive Data Percent cell count reference ranges are not reported, since discordance with absolute values may lead to misinterpretation of CBC data. Current Interpretive Data was last revised on 2017. Lymphocyte pct 12.9 % [facility] Comment: Interpretive Data Percent cell count reference ranges are not reported, since discordance with absolute values may lead to misinterpretation of CBC data. Current Interpretive Data was last revised on 2017. Monocyte pct 11.1 % [facility] Comment: Interpretive Data Percent cell count reference ranges are not reported, since discordance with absolute values may lead to misinterpretation of CBC data. Current Interpretive Data was last revised on 2017. Eosinophil pct 1.0 % [facility] Comment: Interpretive Data Percent cell count reference ranges are not reported, since discordance with absolute values may lead to misinterpretation of CBC data. Current Interpretive Data was last revised on 2017. Basophil pct 0.2 % [facility] Comment: Interpretive Data Percent cell count reference ranges are not reported, since discordance with absolute values may lead to misinterpretation of CBC data. Current Interpretive Data was last revised on 2017. Blood 10/20/2024 3:02 AM CDT 10/20/2024 4:36 AM CDT us Jennifer Jeff MD LAB BLOOD ORDERABLES Final Resul t [facility] Department [place] [address] * (ABNORMAL) CBC with auto differential (10/20/2024 3:02 AM CDT) WBC 5.83 3.80 - 9.90 K/cumm Hgb 9.2(L) 13.0 - 17.5 g/dL [facility] Hct 27.9(L) 38.9 - 50.3 % [facility] Plt 167 150 - 400 K/cumm [facility] MPV 10.4 9.1 - 12.3 fL [facility] RBC 2.84(L) 4.30 - 5.80 M/cumm [facility] MCV 98.2(H) 81.3 - 96.4 fL [facility] MCH 32.4 27.1 - 33.3 pg [facility] MCHC 33.0 32.3 - 35.7 g/dL [facility] RDW CV 17.8(H) 11.1 - 14.9 % [facility] RDW SD 61.9(H) 35.7 - 48.1 fL [facility] NRBC abs 0.03(H) 0.00 - 0.01 K/cumm [facility] Blood 10/20/2024 3:02 AM CDT 10/20/2024 4:36 AM CDT Jennifer Jeff MD LAB BLOOD ORDERABLES Final Resul t Performing Organization Address City/[facility]/ZIP Co de Phone Number [facility] Department [place] [employer] [place] [address] * Phosphorus (10/20/2024 3:02 AM CDT) Pathologist [facility] Phosphorus, pl 2.7 2.3 - 4.5 mg/dL Blood 10/20/2024 3:02 AM CDT 10/20/2024 4:36 AM CDT Jennifer Jeff MD LAB BLOOD ORDERABLES Final Resul t [facility] Department [place] [address] * (ABNORMAL) Comprehensive metabolic panel (10/20/2024 3:02 AM CDT) [facility] Sodium 138 135 - 145 mmol/L Potassium, pl 3.5 3.3 - 4.9 mmol/L [facility] Chloride 102 97 - 110 mmol/L [facility] CO2 27 22 - 32 mmol/L [facility] Anion gap 9 2 - 15 mmol/L [facility] BUN 26(H) 6 - 25 mg/dL [facility] Creatinine 0.91 0.80 - 1.30 mg/dL [facility] Glucose 115 70 - 199 mg/dL [facility] Comment: Interpretive Data Fasting glucose [...] 2022. Calcium 8.6 8.5 - 10.3 mg/dL [facility] Bilirubin, total 0.5 0.1 - 1.2 mg/dL [facility] Protein, pl 6.2(L) 6.5 - 8.5 g/dL [facility] Albumin 3.1(L) 3.5 - 5.0 g/dL [facility] Alk phos 289(H) 40 - 130 Units/L [facility] ALT 66(H) 7 - 55 Units/L [facility] AST 59(H) 10 - 50 Units/L [facility] Blood 10/20/2024 3:0 2 AM CDT 10/20/2024 4:36 AM CDT us Jennifer Jeff MD LAB BLOOD ORDERABLES Final Resul t [facility] Department [place] [address] * eGFR (10/19/2024 12:56 AM CDT) Pathologist [facility] eGFR 89 >=60 mL/min/1. 73 m2 Comment: [...] interpretive data was last reviewed 2021. Blood 10/19/2024 12:5 6 AM CDT 10/19/2024 1:33 AM CDT us Jennifer Jeff MD LAB BLOOD ORDERABLES Final Resul t [facility] Department [place] [address] * (ABNORMAL) Differential, auto (10/19/2024 12:56 AM CDT) [facility] Neutrophil abs 4.13 1.50 - 6.50 K/cumm Imm gran abs 0.27(H) 0.00 - 0.10 K/cumm [facility] Lymphocyte abs 0.68(L) 0.80 - 3.30 K/cumm [facility] Monocyte abs 0.83(H) 0.20 - 0.80 K/cumm [facility] Eosinophil abs 0.03 0.00 - 0.50 K/cumm [facility] Basophil abs 0.02 0.00 - 0.10 K/cumm [facility] Neutrophil pct 69.4 % [facility] Comment: Interpretive Data Percent cell count reference ranges are not reported, since discordance with absolute values may lead to misinterpretation of CBC data. Current Interpretive Data was last revised on 2017. Imm gran pct 4.5 % [facility] Comment: Interpretive Data Percent cell count reference ranges are not reported, since discordance with absolute values may lead to misinterpretation of CBC data. Current Interpretive Data was last revised on 2017. Lymphocyte pct 11.4 % [facility] Comment: Interpretive Data Percent cell count reference ranges are not reported, since discordance with absolute values may lead to misinterpretation of CBC data. Current Interpretive Data was last revised on 2017. Monocyte pct 13.9 % [facility] Comment: Interpretive Data Percent cell count reference ranges are not reported, since discordance with absolute values may lead to misinterpretation of CBC data. Current Interpretive Data was last revised on 2017. Eosinophil pct 0.5 % [facility] Comment: Interpretive Data Percent cell count reference ranges are not reported, since discordance with absolute values may lead to misinterpretation of CBC data. Current Interpretive Data was last revised on 2017. Basophil pct 0.3 % [facility] Comment: Interpretive Data Percent cell count reference ranges are not reported, since discordance with absolute values may lead to misinterpretation of CBC data. Current Interpretive Data was last revised on 2017. Blood 10/19/2024 12:5 6 AM CDT 10/19/2024 1:21 AM CDT us Jennifer Jeff MD LAB BLOOD ORDERABLES Final Resul t [facility] Department [place] [address] * (ABNORMAL) CBC with auto differential (10/19/2024 12:56 AM CDT) WBC 5.96 3.80 - 9.90 K/cumm Hgb 9.2(L) 13.0 - 17.5 g/dL [facility] Hct 27.4(L) 38.9 - 50.3 % [facility] Plt 161 150 - 400 K/cumm [facility] MPV 10.1 9.1 - 12.3 fL [facility] RBC 2.83(L) 4.30 - 5.80 M/cumm [facility] MCV 96.8(H) 81.3 - 96.4 fL [facility] MCH 32.5 27.1 - 33.3 pg [facility] MCHC 33.6 32.3 - 35.7 g/dL [facility] RDW CV 17.5(H) 11.1 - 14.9 % [facility] RDW SD 59.7(H) 35.7 - 48.1 fL [facility] NRBC abs 0.03(H) 0.00 - 0.01 K/cumm [facility] Blood 10/19/2024 12:5 6 AM CDT 10/19/2024 1:21 AM CDT Jennifer Jeff MD LAB BLOOD ORDERABLES Final Resul t Performing Organization Address City/[facility] de Phone Number [facility] Department [place] [address] * (ABNORMAL) aPTT (10/19/2024 12:56 AM CDT) [facility] aPTT 39(H) 28 - 38 sec Comment: Interpretive Data Heparin therapeutic range: 66.0 - 100.0 seconds. Range based on correlation with therapeutic heparin activity range of 0.3 - 0.7 Units/mL. Current interpretive data was last revised on 2023. Blood 10/19/2024 12:5 6 AM CDT 10/19/2024 1:44 AM CDT Jennifer Jeff MD LAB BLOOD ORDERABLES Final Resul t Performing Organization Address City/[facility] Co de Phone Number [facility] Department [place] [address] * (ABNORMAL) Protime-INR (10/19/2024 12:56 AM CDT) PT 13.8(H) 9.7 - 13.0 sec INR 1.27(H) 0.90 - 1.20 [facility] Comment: Interpretive data Oral anticoagulant therapeutic ranges: Venous thromboembolism prophylaxis or treatment: 2.0-3.0 CARDIOLOGY Standard range: 2.0-3.0 High-intensity range: 2.5-3.5 Refer to indication-specific guidelines for appropriate target ranges for prosthetic heart valve replacement. Current interpretive data was last revised on 2019. Blood 10/19/2024 12:5 6 AM CDT 10/19/2024 1:44 AM CDT Jennifer Jeff MD LAB BLOOD ORDERABLES Final Resul t Performing Organization Address City/[facility]/ZIP Co de Phone Number [facility] Department [place] [employer] [place] [address] * Type and screen (10/19/2024 12:56 AM CDT) ABO Rh A Positive Minna, indirect Negative [facility] Blood 10/19/2024 12:5 6 AM CDT 10/19/2024 1:35 AM CDT Narrative [facility] - 10/19/2024 3:54 AM CDT Has the patient had Daratumumab or Isatuximab in the past 6 months?->Unknown Jennifer Jeff MD LAB BLOOD BANK TEST ORDERABLES F inal Result [facility] Department [place] [employer] [place] [address] * (ABNORMAL) Uric acid (10/19/2024 12:56 AM CDT) Uric acid 2.8(L) 3.0 - 8.0 mg/dL Blood 10/19/2024 12:5 6 AM CDT 10/19/2024 1:24 AM CDT Narrative [facility] - 10/19/2024 2:03 AM CDT Saturday and only. Morning draw. . Jennifer Jeff MD LAB BLOOD ORDERABLES Final Resul t Performing Organization Address [facility] de Phone Number [facility] [place] [address] * Phosphorus (10/19/2024 12:56 AM CDT) [facility] Phosphorus, pl 3.0 2.3 - 4.5 mg/dL Blood 10/19/2024 12:5 6 AM CDT 10/19/2024 1:24 AM CDT Jennifer Jeff MD LAB BLOOD ORDERABLES Final Resul t Performing Organization Address [facility] de Phone Number [facility] [place] [address] * (ABNORMAL) Lactate dehydrogenase (LD) (10/19/2024 12:56 AM CDT) [facility] Lactate dehydrogenase (LDH) 251(H) 100 - 250 Units/L Blood 10/19/2024 12:5 6 AM CDT 10/19/2024 1:24 AM CDT Narrative [facility] - 10/19/2024 2:03 AM CDT Saturday and only. Morning draw. Jennifer Jeff MD LAB BLOOD ORDERABLES Final Resul t Performing Organization Address [facility] [place] [address] * (ABNORMAL) Comprehensive metabolic panel (10/19/2024 12:56 AM CDT) [facility] Sodium 138 135 - 145 mmol/L Potassium, pl 3.6 3.3 - 4.9 mmol/L [facility] Chloride 102 97 - 110 mmol/L [facility] CO2 26 22 - 32 mmol/L [facility] Anion gap 10 2 - 15 mmol/L [facility] BUN 27(H) 6 - 25 mg/dL [facility] Creatinine 0.89 0.80 - 1.30 mg/dL [facility] Glucose 147 70 - 199 mg/dL [facility] Comment: Interpretive Data Fasting glucose [...] interpretive data was last revised 2022. Calcium 8.5 8.5 - 10.3 mg/dL [facility] Bilirubin, total 0.6 0.1 - 1.2 mg/dL [facility] Protein, pl 6.3(L) 6.5 - 8.5 g/dL [facility] Albumin 3.1(L) 3.5 - 5.0 g/dL [facility] Alk phos 319(H) 40 - 130 Units/L [facility] ALT 69(H) 7 - 55 Units/L [facility] AST 87(H) 10 - 50 Units/L [facility] Blood 10/19/2024 12:5 6 AM CDT 10/19/2024 1:24 AM CDT us Jennifer Jeff MD LAB BLOOD ORDERABLES Final Resul t [facility] Department [place] [address] * eGFR (10/18/2024 1:19 AM CDT) eGFR 74 >=60 mL/min/1. 73 m2 Comment: Interpretive Data [...] interpretive data was last reviewed 2021. Blood 10/18/2024 1:19 AM CDT 10/18/2024 1:34 AM CDT us Jennifer Jeff MD LAB BLOOD ORDERABLES Final Resul t [facility] Department [place] [address] * (ABNORMAL) Differential, auto (10/18/2024 1:19 AM CDT) Neutrophil abs 4.55 1.50 - 6.50 K/cumm Imm gran abs 0.31(H) 0.00 - 0.10 K/cumm [facility] Lymphocyte abs 0.79(L) 0.80 - 3.30 K/cumm [facility] Monocyte abs 0.94(H) 0.20 - 0.80 K/cumm [facility] Eosinophil abs 0.02 0.00 - 0.50 K/cumm [facility] Basophil abs 0.02 0.00 - 0.10 K/cumm [facility] Neutrophil pct 68.6 % [facility] Comment: Interpretive Data Percent cell count reference ranges are not reported, since discordance with absolute values may lead to misinterpretation of CBC data. Current Interpretive Data was last revised on 2017. Imm gran pct 4.7 % [facility] Comment: Interpretive Data Percent cell count reference ranges are not reported, since discordance with absolute values may lead to misinterpretation of CBC data. Current Interpretive Data was last revised on 2017. Lymphocyte pct 11.9 % [facility] Comment: Interpretive Data Percent cell count reference ranges are not reported, since discordance with absolute values may lead to misinterpretation of CBC data. Current Interpretive Data was last revised on 2017. Monocyte pct 14.2 % [facility] Comment: Interpretive Data Percent cell count reference ranges are not reported, since discordance with absolute values may lead to misinterpretation of CBC data. Current Interpretive Data was last revised on 2017. Eosinophil pct 0.3 % [facility] Comment: Interpretive Data Percent cell count reference ranges are not reported, since discordance with absolute values may lead to misinterpretation of CBC data. Current Interpretive Data was last revised on 2017. Basophil pct 0.3 % [facility] Comment: Interpretive Data Percent cell count reference ranges are not reported, since discordance with absolute values may lead to misinterpretation of CBC data. Current Interpretive Data was last revised on 2017. Blood 10/18/2024 1:19 AM CDT 10/18/2024 1:34 AM CDT us Jennifer Jeff MD LAB BLOOD ORDERABLES Final Resul t [facility] Department [place] [address] * (ABNORMAL) CBC with auto differential (10/18/2024 1:19 AM CDT) WBC 6.63 3.80 - 9.90 K/cumm Hgb 9.6(L) 13.0 - 17.5 g/dL [facility] Hct 29.0(L) 38.9 - 50.3 % [facility] Plt 179 150 - 400 K/cumm [facility] MPV 10.3 9.1 - 12.3 fL [facility] RBC 2.99(L) 4.30 - 5.80 M/cumm [facility] MCV 97.0(H) 81.3 - 96.4 fL [facility] MCH 32.1 27.1 - 33.3 pg [facility] MCHC 33.1 32.3 - 35.7 g/dL [facility] RDW CV 17.2(H) 11.1 - 14.9 % [facility] RDW SD 59.3(H) 35.7 - 48.1 fL [facility] NRBC abs 0.02(H) 0.00 - 0.01 K/cumm [facility] Blood 10/18/2024 1:19 AM CDT 10/18/2024 1:34 AM CDT Jennifer Jeff MD LAB BLOOD ORDERABLES Final Resul t Performing Organization Address City/[facility] Co de Phone Number [facility] [place] [address] * Phosphorus (10/18/2024 1:19 AM CDT) [facility] Phosphorus, pl 3.3 2.3 - 4.5 mg/dL Blood 10/18/2024 1:19 AM CDT 10/18/2024 1:34 AM CDT Jennifer Jeff MD LAB BLOOD ORDERABLES Final Resul t Performing Organization Address City/[facility] Co de Phone Number [facility] Department [place] [address] * (ABNORMAL) Comprehensive metabolic panel (10/18/2024 1:19 AM CDT) Pathologist [facility] Sodium 137 135 - 145 mmol/L Potassium, pl 3.8 3.3 - 4.9 mmol/L [facility] Chloride 100 97 - 110 mmol/L [facility] CO2 27 22 - 32 mmol/L [facility] Anion gap 10 2 - 15 mmol/L [facility] BUN 32(H) 6 - 25 mg/dL [facility] Creatinine 1.05 0.80 - 1.30 mg/dL [facility] Glucose 125 70 - 199 mg/dL [facility] Comment: Interpretive Data Fasting glucose [...] 2022. Calcium 8.8 8.5 - 10.3 mg/dL [facility] Bilirubin, total 0.5 0.1 - 1.2 mg/dL [facility] Protein, pl 6.7 6.5 - 8.5 g/dL [facility] Albumin 3.3(L) 3.5 - 5.0 g/dL [facility] Alk phos 336(H) 40 - 130 Units/L [facility] ALT 56(H) 7 - 55 Units/L [facility] AST 61(H) 10 - 50 Units/L [facility] Blood 10/18/2024 1:19 AM CDT 10/18/2024 1:34 AM CDT us Jennifer Jeff MD LAB BLOOD ORDERABLES Final Resul t [facility] Department [place] [address] * C. difficile testing Stool (10/17/2024 1:53 PM CDT) [facility] Result Negative Negative Toxin Result Negative Negative [facility] C. diff result Negative, free toxin Negative, free toxin [facility] C. diff interp Negative for toxigenic Clostridioides (Clostridium) difficile. Analysis was performed using a glutamate dehydrogenase antigen detection assay combined with a C. difficile toxin detection assay. [facility] Stool 10/17/2024 1:53 PM CDT 10/17/2024 3:21 PM CDT Trever Dempsey MD LAB MICROBIOLOGY - GENERAL ORD ERABLES Final Result Performing Organization Address [facility] Co de Phone Number [facility] Department [place] [address] * Infection Prevention VRE Culture Stool (10/17/2024 1:53 PM CDT) Report Final Report: Negative Stool 10/17/2024 1:53 PM CDT 10/17/2024 6:51 PM CDT Narrative [facility] - 10/19/2024 9:32 PM CDT Surveillance culture for Infection Prevention purposes only; results indicate colonization, not infection requiring treatment. Testing performed by [facility] ([phone]). Trever Dempsey MD LAB MICROBIOLOGY - GENERAL ORD ERABLES Final Result Performing Organization Address [facility] de Phone Number [facility] Department [place] [address] * eGFR (10/17/2024 12:44 AM CDT) eGFR >90 >=60 mL/min/1. 73 [...] interpretive data was last reviewed 2021. Blood 10/17/2024 12:4 4 AM CDT 10/17/2024 1:05 AM CDT Edgardo Castro MD LAB BLOOD ORDERABLES Final Result [facility] Department [place] [address] * (ABNORMAL) Differential, auto (10/17/2024 12:44 AM CDT) Neutrophil abs 7.00(H) 1.50 - 6.50 K/cumm Imm gran abs 0.13(H) 0.00 - 0.10 K/cumm [facility] Lymphocyte abs 0.70(L) 0.80 - 3.30 K/cumm [facility] Monocyte abs 0.81(H) 0.20 - 0.80 K/cumm [facility] Eosinophil abs 0.01 0.00 - 0.50 K/cumm [facility] Basophil abs 0.01 0.00 - 0.10 K/cumm [facility] Neutrophil pct 80.8 % [facility] Comment: Interpretive Data Percent cell count reference ranges are not reported, since discordance with absolute values may lead to misinterpretation of CBC data. Current Interpretive Data was last revised on 2017. Imm gran pct 1.5 % [facility] Comment: Interpretive Data Percent cell count reference ranges are not reported, since discordance with absolute values may lead to misinterpretation of CBC data. Current Interpretive Data was last revised on 2017. Lymphocyte pct 8.1 % [facility] Comment: Interpretive Data Percent cell count reference ranges are not reported, since discordance with absolute values may lead to misinterpretation of CBC data. Current Interpretive Data was last revised on 2017. Monocyte pct 9.4 % [facility] Comment: Interpretive Data Percent cell count reference ranges are not reported, since discordance with absolute values may lead to misinterpretation of CBC data. Current Interpretive Data was last revised on 2017. Eosinophil pct 0.1 % [facility] Comment: Interpretive Data Percent cell count reference ranges are not reported, since discordance with absolute values may lead to misinterpretation of CBC data. Current Interpretive Data was last revised on 2017. Basophil pct 0.1 % [facility] Comment: Interpretive Data Percent cell count reference ranges are not reported, since discordance with absolute values may lead to misinterpretation of CBC data. Current Interpretive Data was last revised on 2017. Blood 10/17/2024 12:4 4 AM CDT 10/17/2024 1:05 AM CDT us Edgardo Castro MD LAB BLOOD ORDERABLES Final Result [facility] Department [place] [address] * (ABNORMAL) CBC with auto differential (10/17/2024 12:44 AM CDT) WBC 8.66 3.80 - 9.90 K/cumm Hgb 9.9(L) 13.0 - 17.5 g/dL [facility] Hct 30.6(L) 38.9 - 50.3 % [facility] Plt 143(L) 150 - 400 K/cumm [facility] MPV 10.8 9.1 - 12.3 fL [facility] RBC 3.12(L) 4.30 - 5.80 M/cumm [facility] MCV 98.1(H) 81.3 - 96.4 fL [facility] MCH 31.7 27.1 - 33.3 pg [facility] MCHC 32.4 32.3 - 35.7 g/dL [facility] RDW CV 16.8(H) 11.1 - 14.9 % [facility] RDW SD 58.9(H) 35.7 - 48.1 fL [facility] NRBC abs 0.00 0.00 - 0.01 K/cumm [facility] Blood 10/17/2024 12:4 4 AM CDT 10/17/2024 1:05 AM CDT Jennifer Jeff MD LAB BLOOD ORDERABLES Final Resul t Performing Organization Address City/[facility]/ZIP Co de Phone Number [facility] Department [place] [address] * Phosphorus (10/17/2024 12:44 AM CDT) Pathologist [facility] Phosphorus, pl 2.8 2.3 - 4.5 mg/dL Blood 10/17/2024 12:4 4 AM CDT 10/17/2024 1:05 AM CDT Jennifer Jeff MD LAB BLOOD ORDERABLES Final Resul t Performing Organization Address [facility] de Phone Number [facility] Department [place] [address] * (ABNORMAL) Comprehensive metabolic panel (10/17/2024 12:44 AM CDT) [facility] Sodium 135 135 - 145 mmol/L Potassium, pl 4.2 3.3 - 4.9 mmol/L [facility] Comment:Hemolyzed; Potassium value may be falsely elevated by as much as 0.3-0.5 mmol/L. Suggest redraw and reanalysis. Chloride 102 97 - 110 mmol/L [facility] CO2 24 22 - 32 mmol/L [facility] Anion gap 9 2 - 15 mmol/L [facility] BUN 34(H) 6 - 25 mg/dL [facility] Creatinine 0.84 0.80 - 1.30 mg/dL [facility] Glucose 116 70 - 199 mg/dL [facility] Comment: Interpretive Data Fasting glucose [...] classification and Diagnosis of Diabetes Diabetes Care 2022; 46: S19-S40. Current interpretive data was last revised 2022. Calcium 8.6 8.5 - 10.3 mg/dL [facility] Bilirubin, total 0.5 0.1 - 1.2 mg/dL [facility] Protein, pl 6.7 6.5 - 8.5 g/dL [facility] Albumin 3.1(L) 3.5 - 5.0 g/dL [facility] Alk phos 266(H) 40 - 130 Units/L [facility] ALT 33 7 - 55 Units/L [facility] AST 52(H) 10 - 50 Units/L [facility] Comment:Hemolyzed; result ma y be falsely elevated Blood 10/17/2024 12:4 4 AM CDT 10/17/2024 1:05 AM CDT Jennifer Jeff MD LAB BLOOD ORDERABLES Final Resul t Performing Organization Address City/[facility]/ZIP Co de Phone Number [facility] Department [place] [address] * (ABNORMAL) Lactate (10/16/2024 5:27 AM CDT) [facility] Lactate 2.1(H) 0.7 - 2.0 mmol/L Blood 10/16/2024 5:27 AM CDT 10/16/2024 5:51 AM CDT us Edgardo Castro MD LAB BLOOD ORDERABLES Final Result [facility] Department [place] [address] * eGFR (10/16/2024 5:27 AM CDT) Pathologist [facility] eGFR 89 >=60 mL/min/1. 73 m2 Comment: [...] interpretive data was last reviewed 2021. Blood 10/16/2024 5:27 AM CDT 10/16/2024 5:51 AM CDT us Edgardo Castro MD LAB BLOOD ORDERABLES Final Result [facility] Department [place] [address] * (ABNORMAL) Differential, auto (10/16/2024 5:27 AM CDT) Neutrophil abs 7.16(H) 1.50 - 6.50 K/cumm Imm gran abs 0.07 0.00 - 0.10 K/cumm [facility] Lymphocyte abs 0.37(L) 0.80 - 3.30 K/cumm [facility] Monocyte abs 0.56 0.20 - 0.80 K/cumm [facility] Eosinophil abs 0.00 0.00 - 0.50 K/cumm [facility] Basophil abs 0.00 0.00 - 0.10 K/cumm [facility] Neutrophil pct 87.7 % [facility] Comment: Interpretive Data Percent cell count reference ranges are not reported, since discordance with absolute values may lead to misinterpretation of CBC data. Current Interpretive Data was last revised on 2017. Imm gran pct 0.9 % [facility] Comment: Interpretive Data Percent cell count reference ranges are not reported, since discordance with absolute values may lead to misinterpretation of CBC data. Current Interpretive Data was last revised on 2017. Lymphocyte pct 4.5 % [facility] Comment: Interpretive Data Percent cell count reference ranges are not reported, since discordance with absolute values may lead to misinterpretation of CBC data. Current Interpretive Data was last revised on 2017. Monocyte pct 6.9 % [facility] Comment: Interpretive Data Percent cell count reference ranges are not reported, since discordance with absolute values may lead to misinterpretation of CBC data. Current Interpretive Data was last revised on 2017. Eosinophil pct 0.0 % [facility] Comment: Interpretive Data Percent cell count reference ranges are not reported, since discordance with absolute values may lead to misinterpretation of CBC data. Current Interpretive Data was last revised on 2017. Basophil pct 0.0 % [facility] Comment: Interpretive Data Percent cell count reference ranges are not reported, since discordance with absolute values may lead to misinterpretation of CBC data. Current Interpretive Data was last revised on 2017. Blood 10/16/2024 5:27 AM CDT 10/16/2024 5:51 AM CDT us Edgardo Castro MD LAB BLOOD ORDERABLES Final Result [facility] Department [place] [address] * (ABNORMAL) CBC with auto differential (10/16/2024 5:27 AM CDT) WBC 8.16 3.80 - 9.90 K/cumm Hgb 9.7(L) 13.0 - 17.5 g/dL [facility] Hct 29.4(L) 38.9 - 50.3 % [facility] Plt 171 150 - 400 K/cumm [facility] MPV 10.4 9.1 - 12.3 fL [facility] RBC 3.01(L) 4.30 - 5.80 M/cumm [facility] MCV 97.7(H) 81.3 - 96.4 fL [facility] MCH 32.2 27.1 - 33.3 pg [facility] MCHC 33.0 32.3 - 35.7 g/dL [facility] RDW CV 16.5(H) 11.1 - 14.9 % [facility] RDW SD 58.3(H) 35.7 - 48.1 fL [facility] NRBC abs 0.00 0.00 - 0.01 K/cumm [facility] Blood 10/16/2024 5:27 AM CDT 10/16/2024 5:51 AM CDT Jennifer Jeff MD LAB BLOOD ORDERABLES Final Resul t Performing Organization Address [facility] de Phone Number [facility] [employer] [place] [address] * (ABNORMAL) aPTT (10/16/2024 5:27 AM CDT) aPTT 26(L) 28 - 38 sec Comment: Interpretive Data Heparin therapeutic range: 66.0 - 100.0 seconds. Range based on correlation with therapeutic heparin activity range of 0.3 - 0.7 Units/mL. Current interpretive data was last revised on 2023. Blood 10/16/2024 5:27 AM CDT 10/16/2024 5:46 AM CDT Jennifer Jeff MD LAB BLOOD ORDERABLES Final Resul t Performing Organization Address [facility] de Phone Number [facility] [place] [employer] [place] [address] * (ABNORMAL) Protime-INR (10/16/2024 5:27 AM CDT) PT 13.8(H) 9.7 - 13.0 sec INR 1.27(H) 0.90 - 1.20 [facility] Comment: Interpretive data Oral anticoagulant therapeutic ranges: Venous thromboembolism prophylaxis or treatment: 2.0-3.0 CARDIOLOGY Standard range: 2.0-3.0 High-intensity range: 2.5-3.5 Refer to indication-specific guidelines for appropriate target ranges for prosthetic heart valve replacement. Current interpretive data was last revised on 2019. Blood 10/16/2024 5:27 AM CDT 10/16/2024 5:46 AM CDT us Jennifer Jeff MD LAB BLOOD ORDERABLES Final Resul t Performing Organization Address [facility] Co de Phone Number [facility] [employer] [place] [address] * Type and screen (10/16/2024 5:27 AM CDT) ABO Rh A Positive Minna, indirect Negative [facility] Blood 10/16/2024 5:27 AM CDT 10/16/2024 5:38 AM CDT Narrative [facility] - 10/16/2024 6:46 AM CDT Has the patient had Daratumumab or Isatuximab in the past 6 months?->Unknown us Jennifer Jeff MD LAB BLOOD BANK TEST ORDERABLES F inal Result Performing Organization Address [facility] de Phone Number [facility] [employer] [place] [address] * Uric acid (10/16/2024 5:27 AM CDT) Uric acid 4.0 3.0 - 8.0 mg/dL Blood 10/16/2024 5:27 AM CDT 10/16/2024 5:51 AM CDT Narrative [facility] - 10/16/2024 6:21 AM CDT Saturday and only. Morning draw. . us Jennifer Jeff MD LAB BLOOD ORDERABLES Final Resul t Performing Organization Address [facility] Co de Phone Number [facility] [employer] [place] [address] * Phosphorus (10/16/2024 5:27 AM CDT) [facility] Phosphorus, pl 2.9 2.3 - 4.5 mg/dL Blood 10/16/2024 5:27 AM CDT 10/16/2024 5:51 AM CDT Jennifer Jeff MD LAB BLOOD ORDERABLES Final Resul t Performing Organization Address City/[facility] Co de Phone Number [facility] Department [place] [address] * Lactate dehydrogenase (LD) (10/16/2024 5:27 AM CDT) [facility] Lactate dehydrogenase (LDH) 233 100 - 250 Units/L Blood 10/16/2024 5:27 AM CDT 10/16/2024 5:51 AM CDT Narrative [facility] - 10/16/2024 6:21 AM CDT Saturday and only. Morning draw. Jennifer Jeff MD LAB BLOOD ORDERABLES Final Resul t Performing Organization Address [facility] de Phone Number [facility] Department [place] [address] * (ABNORMAL) Comprehensive metabolic panel (10/16/2024 5:27 AM CDT) [facility] Sodium 135 135 - 145 mmol/L Potassium, pl 4.0 3.3 - 4.9 mmol/L [facility] Chloride 100 97 - 110 mmol/L [facility] CO2 26 22 - 32 mmol/L [facility] Anion gap 9 2 - 15 mmol/L [facility] BUN 35(H) 6 - 25 mg/dL [facility] Creatinine 0.90 0.80 - 1.30 mg/dL [facility] Glucose 190 70 - 199 mg/dL [facility] Comment: Interpretive Data Fasting glucose [...] interpretive data was last revised 2022. Calcium 9.0 8.5 - 10.3 mg/dL [facility] Bilirubin, total 0.5 0.1 - 1.2 mg/dL [facility] Protein, pl 6.8 6.5 - 8.5 g/dL [facility] Albumin 3.2(L) 3.5 - 5.0 g/dL [facility] Alk phos 300(H) 40 - 130 Units/L [facility] ALT 38 7 - 55 Units/L [facility] AST 42 10 - 50 Units/L [facility] Blood 10/16/2024 5:27 AM CDT 10/16/2024 5:51 AM CDT us Jennifer Jeff MD LAB BLOOD ORDERABLES Final Resul t [facility] Department [place] [address] * XR Chest Pa Lateral 2 Vw (10/15/2024 7:04 PM CDT) Anatomical Region Laterality Modality Body, Chest N/A Computed Radiogr aphy 10/15/2024 7:13 PM CDT Impressions 10/15/2024 7:52 PM CDT Right-sided chest port is seen with tip terminating in the superior cavoatrial junction. 2-lead pacer noted with leads terminating in the right atrium and right ventricle. Atelectasis in the left lower lobe. Possible tiny left effusion. No right effusion. There is no pneumothorax. Unchanged cardiomediastinal silhouette. Dictated by: Alyssia Capellan MD The radiology attending physician has personally reviewed this study, and had reviewed and/or edited this written report and agrees with it. Electronically signed by: Glenn Ye M.D. Narrative 10/15/2024 7:52 PM CDT EXAMINATION: XR CHEST PA LATERAL 2 VIEWS HISTORY: fever COMPARISON:CT on 10/12/2024 and radiograph on 09/27 Procedure Note Glenn Ye MD - 10/15/2024 EXAMINATION: XR CHEST PA LATERAL 2 VIEWS HISTORY: fever COMPARISON:CT on 10/12/2024 and radiograph on 09/27 IMPRESSION: Right-sided chest port is seen with tip terminating in the superior cavoatrial junction. 2-lead pacer noted with leads terminating in the right atrium and right ventricle. Atelectasis in the left lower lobe. Possible tiny left effusion. No right effusion. There is no pneumothorax. Unchanged cardiomediastinal silhouette. Dictated by: Alyssia Capellan MD The radiology attending physician has personally reviewed this study, and had reviewed and/or edited this written report and agrees with it. Electronically signed by: Glenn Ye M.D. us Candi Rincon MD IMG XR PROCEDURE S Final Result * Urinalysis reflex to microscopic and culture Urine (10/15/2024 7:01 PM CDT) Color, ur Yellow Yellow Clarity, ur Clear Clear [facility] Specific gravity, ur 1.027 1.003 - 1.030 [facility] pH, urine 6.0 [facility] Comment: Interpretive Data U rine pH is affected by diet, medications, systemic acid-base disturbances, and renal tubular function. pH may affect urinary stone formation. For example, urine pH below 6.0 may help reduce the tendency for calcium phosphate stones and pH greater than 6.0 may reduce the tendency for uric acid stone formation. Source: [employer] Current Interpretive Data was last revised on 2017 Protein, ur ql Negative Negative [facility] Glucose, ur ql Negative Negative [facility] Ketones, ur Negative Negative [facility] Bilirubin, ur Negative Negative [facility] Blood, ur Negative Negative [facility] Urobilinogen, ur <2.0 <2.0 mg/dL [facility] Nitrite, ur Negative Negative [facility] Leukocyte esterase, ur Negative Negative [facility] UA reflex comment Reflex conditions for microscopic UA and culture not met. [facility] Urine 10/15/2024 7:01 PM CDT 10/15/2024 7:05 PM CDT Candi Rincon MD LAB MICROBIOLOGY - GENERAL ORDERABLES Final Result Performing Organization Address City/[facility] Co de Phone Number [facility] Department [place] [address] * (ABNORMAL) Sepsis Lactate w/ Reflex (10/15/2024 5:22 PM CDT) Sepsis Lactate 2.2(H) 0.7 - 2.0 mmol/L Blood 10/15/2024 5:22 PM CDT 10/15/2024 5:26 PM CDT Candi Rincon MD LAB BLOOD ORDERA BLES Final Result Performing Organization Address [facility] de Phone Number [facility] Department [place] [address] * eGFR (10/15/2024 5:22 PM CDT) eGFR 88 >=60 mL/min/1. 73 m2 Comment: Interpretive Data [...] interpretive data was last reviewed 2021. Blood 10/15/2024 5:22 PM CDT 10/15/2024 5:43 PM CDT us Candi Rincon MD LAB BLOOD ORDERA BLES Final Result [facility] Department [place] [address] * (ABNORMAL) Differential, auto (10/15/2024 5:22 PM CDT) Neutrophil abs 6.81(H) 1.50 - 6.50 K/cumm Imm gran abs 0.07 0.00 - 0.10 K/cumm [facility] Lymphocyte abs 0.18(L) 0.80 - 3.30 K/cumm [facility] Monocyte abs 0.17(L) 0.20 - 0.80 K/cumm [facility] Eosinophil abs 0.00 0.00 - 0.50 K/cumm [facility] Basophil abs 0.01 0.00 - 0.10 K/cumm [facility] Neutrophil pct 94.1 % [facility] Comment: Interpretive Data Percent cell count reference ranges are not reported, since discordance with absolute values may lead to misinterpretation of CBC data. Current Interpretive Data was last revised on 2017. Imm gran pct 1.0 % [facility] Comment: Interpretive Data Percent cell count reference ranges are not reported, since discordance with absolute values may lead to misinterpretation of CBC data. Current Interpretive Data was last revised on 2017. Lymphocyte pct 2.5 % [facility] Comment: Interpretive Data Percent cell count reference ranges are not reported, since discordance with absolute values may lead to misinterpretation of CBC data. Current Interpretive Data was last revised on 2017. Monocyte pct 2.3 % [facility] Comment: Interpretive Data Percent cell count reference ranges are not reported, since discordance with absolute values may lead to misinterpretation of CBC data. Current Interpretive Data was last revised on 2017. Eosinophil pct 0.0 % [facility] Comment: Interpretive Data Percent cell count reference ranges are not reported, since discordance with absolute values may lead to misinterpretation of CBC data. Current Interpretive Data was last revised on 2017. Basophil pct 0.1 % [facility] Comment: Interpretive Data Percent cell count reference ranges are not reported, since discordance with absolute values may lead to misinterpretation of CBC data. Current Interpretive Data was last revised on 2017. Blood 10/15/2024 5:22 PM CDT 10/15/2024 5:43 PM CDT us Candi Rincon MD LAB BLOOD ORDERA BLES Final Result [facility] Department [place] [address] * (ABNORMAL) CBC with auto differential (10/15/2024 5:22 PM CDT) WBC 7.24 3.80 - 9.90 K/cumm Hgb 10.4(L) 13.0 - 17.5 g/dL [facility] Hct 31.7(L) 38.9 - 50.3 % [facility] Plt 193 150 - 400 K/cumm [facility] MPV 10.0 9.1 - 12.3 fL [facility] RBC 3.27(L) 4.30 - 5.80 M/cumm [facility] MCV 96.9(H) 81.3 - 96.4 fL [facility] MCH 31.8 27.1 - 33.3 pg [facility] MCHC 32.8 32.3 - 35.7 g/dL [facility] RDW CV 16.6(H) 11.1 - 14.9 % [facility] RDW SD 59.2(H) 35.7 - 48.1 fL [facility] NRBC abs 0.00 0.00 - 0.01 K/cumm [facility] Blood 10/15/2024 5:22 PM CDT 10/15/2024 5:43 PM CDT Result [facility] Candi Rincon MD LAB BLOOD ORDERA BLES Final Result [facility] Department [place] [address] * Blood culture Blood Peripheral (10/15/2024 5:22 PM CDT) Report Final Report: No growth Blood (Peripheral) 10/15/2024 5:22 PM CDT 10/15/2024 5:42 PM CDT Narrative [facility] - 10/20/2024 7:01 AM CDT From a different site than #1. Draw Blood cultures before administration of Antibiotics Collection->Peripheral 1. Blood cultures are incubated for 4 [...] performance characteristics have been verified by the [facility] Microbiology Laboratory. For questions about this culture, contact the Microbiology Laboratory at [phone]. Interpretive data was last revised on 24. Candi Rincon MD LAB MICROBIOLOGY - GENERAL ORDERABLES Final Result [facility] Department [place] [address] * Blood culture Blood Peripheral (10/15/2024 5:22 PM CDT) Report Final Report: No growth Blood (Peripheral) 10/15/2024 5:22 PM CDT 10/15/2024 5:41 PM CDT Amy [facility] - 10/20/2024 7:01 AM CDT Draw Blood cultures before administration of Antibiotics Collection->Peripheral 1. Blood cultures are incubated for 4 [...] performance characteristics have been verified by the [facility] Microbiology Laboratory. For questions about this culture, contact the Microbiology Laboratory at [phone]. Interpretive data was last revised on 24. Candi Rincon MD LAB MICROBIOLOGY - GENERAL ORDERABLES Final Result [facility] Department [place] [address] * (ABNORMAL) Comprehensive metabolic panel (10/15/2024 5:22 PM CDT) Sodium 134(L) 135 - 145 mmol/L Potassium, pl 4.2 3.3 - 4.9 mmol/L [facility] Chloride 98 97 - 110 mmol/L [facility] CO2 26 22 - 32 mmol/L [facility] Anion gap 10 2 - 15 mmol/L [facility] BUN 33(H) 6 - 25 mg/dL [facility] Creatinine 0.91 0.80 - 1.30 mg/dL [facility] Glucose 230(H) 70 - 199 mg/dL [facility] Comment: Interpretive Data Fasting glucose [...] interpretive data was last revised 2022. Calcium 9.2 8.5 - 10.3 mg/dL [facility] Bilirubin, total 0.8 0.1 - 1.2 mg/dL [facility] Protein, pl 7.3 6.5 - 8.5 g/dL [facility] Albumin 3.5 3.5 - 5.0 g/dL [facility] Alk phos 361(H) 40 - 130 Units/L [facility] ALT 41 7 - 55 Units/L [facility] AST 55(H) 10 - 50 Units/L [facility] Blood 10/15/2024 5:22 PM CDT 10/15/2024 5:43 PM CDT us Candi Rincon MD LAB BLOOD ORDERA BLES Final Result [facility] Department [place] [address] * FL ERCP (10/15/2024 1:41 PM CDT) Narrative [facility] - 10/15/2024 1:43 PM CDT The images from this study are not interpreted by Radiology. Please refer to the physician's procedure / OR operative note. 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 Referring MD: Arnoldo Ortiz D.O. Medicines: Monitored Anesthesia Care, Cipro 400 mg IV Complications: No immediate complications. Estimated Blood Loss: Estimated blood loss: none. Procedure: Pre-Anesthesia Assessment: - The risks and benefits of the procedure and the sedation options and risks were discussed with the patient. All questions were answered and informed consent was obtained. - Immediately prior to administration ofmedications, the patient was re-assessed for adequacy to receive sedatives. The benefits, risks, and alternatives to theprocedure and sedation were discussed and informed consentwas obtained. The TJF-Q378 was introduced through the mouth, and used to inject contrast into and used to inject contrast into the bile duct. The ERCP was accomplished without difficulty. The patienttolerated the procedure well. Findings: A biliary stent was visible on the pediatric speech therapist film. The esophagus was successfully intubated under direct vision without detailedexamination of the pharynx, larynx, and associated structures, and upper GItract. The upper GI tract was grossly normal. Two plastic stents originatingin the biliary tree were emerging from the major papilla. The stentswere visibly patent. A biliary sphincterotomy had been performed. The sphincterotomy appeared open. Two stents were removed from thebiliary tree using a snare. A 0.025 inch x 450 cm angled Visiglide wire was passed into the biliary tree. The 11.5 mm balloon was passed over the guidewire and the bile duct was then deeply cannulated. Contrast was injected. I personally interpreted the bile duct images. Ductal flowof contrast was adequate. Image quality was adequate. Contrast extendedto the entire biliary tree. The left and right hepatic ducts withsecondary or tertiary branches of the intrahepatic ducts (Bismuth IV) containeda single severe stenosis 15 mm in length. The upstream intrahepaticbile ducts were dilated to 5 mm. The hepatic duct bifurcation, the leftmain hepatic duct and the right main hepatic duct were successfullydilated with a 4 mm balloon dilator. To discover objects, the biliary treewas swept with an 11.5 mm balloon starting at the left intrahepaticduct(s) and right intrahepatic duct(s). Sludge was swept from the duct. One 7Fr by 10 cm transpapillary plastic stent with a full external pigtailand a full internal pigtail was placed into the right hepatic duct. Bile flowed through the stent. The stent was in good position. One 7 Fr by10 cm transpapillary plastic stent with a full external pigtail and afull internal pigtail was placed into the left hepatic duct. Bile flowed through the stent. The stent was in good position. The endoscope was withdrawn from the patient. Impression: - A single severe biliary stricture was found inthe hepatic duct system (Bismuth IV). The stricture was malignant appearing. - Two stents were removed from the biliary tree. - The hepatic duct bifurcation, the left mainhepatic duct and the right main hepatic duct weresuccessfully dilated. - The biliary tree was swept and sludge wasfound. - One plastic stent was placed into the righthepatic duct. - One plastic stent was placed into the lefthepatic duct. Recommendation: - Observe patient's clinical course. - Watch for pancreatitis, bleeding, perforation,and cholangitis. - Return to referring physician as previously scheduled. - Repeat ERCP in 2 months to exchange stent. - Cipro 500 BID x 5 days. Attending Participation: I personally performed the entire procedure. Electronically signed by Chris Holcomb M.D. Chris Holcomb M.D. 10/15/2024 2:14:43 PM This document was signed electronically. Number of Addenda: 0 Note Initiated On: 10/15/2024 12:47 PM Scope In: Scope Out: Chris Holcomb MD ENDOSCOPY PROCEDURES Final Result * Protime-INR (10/15/2024 11:37 AM CDT) PT 12.8 9.7 - 13.0 sec INR 1.18 0.90 - 1.20 [facility] Comment: Interpretive data Oral anticoagulant therapeutic ranges: Venous thromboembolism prophylaxis or treatment: 2.0-3.0 CARDIOLOGY Standard range: 2.0-3.0 High-intensity range: 2.5-3.5 Refer to indication-specific guidelines for appropriate target ranges for prosthetic heart valve replacement. Current interpretive data was last revised on 2019. Blood 10/15/2024 11:3 7 AM CDT 10/15/2024 11:37 AM CDT us Chris Holcomb MD LAB BLOOD ORDERABLES Final Result [facility] [address] Department [place] [address] * CT Chest Abdomen Pelvis W Contrast [...] Electronically signed by: Cheri Craig M.D. [facility] Gabriel Posey MD IM CT PROCEDURES Final Res ult * eGFR [...] was last reviewed 2021. Testing performed by: [facility], [address] [place] [address] Blood 10/07/2024 9:11 AM CDT 10/07/2024 9:57 AM CDT us Agustina Li MD PhD LAB BLOOD ORDERABLES Final Result [facility] [address] Department of Laboratories [place] [id number] * (ABNORMAL) Differential, auto (10/07/2024 9:11 AM CDT) Neutrophil abs 6.76(H) 1.50 - 6.50 K/cumm Comment:Testing performed by : [facility], [facility], [address] [place] [address] Imm gran abs 0.06 0.00 - 0.10 K/cumm [facility] Comment:Testing performed by : [facility] 2, [address] [place] [address] Lymphocyte abs 0.76(L) 0.80 - 3.30 K/cumm [facility] Comment:Testing performed by : [facility], [facility], [address] [place] [address] Monocyte abs 0.82(H) 0.20 - 0.80 K/cumm [facility] Comment:Testing performed by : [facility], [facility], [address] [place] [address] Eosinophil abs 0.04 0.00 - 0.50 K/cumm [facility] Comment:Testing performed by : [facility], [facility], [address] [place] [address] Basophil abs 0.04 0.00 - 0.10 K/cumm [facility] Comment:Testing performed by : [facility], [facility], [address] [place] [address] Neutrophil pct 79.6 % [facility] Comment: Interpretive Data Percent cell count reference ranges are not reported, since discordance with absolute values may lead to misinterpretation of CBC data. Current Interpretive Data was last revised on 2017. Testing performed by: [facility], [facility], [address] [place] [address] Imm gran pct 0.7 % [facility] Comment: Interpretive Data Percent cell count reference ranges are not reported, since discordance with absolute values may lead to misinterpretation of CBC data. Current Interpretive Data was last revised on 2017. Testing performed by: [facility], [facility], [address] [place] [address] Lymphocyte pct 9.0 % [facility] Comment: Interpretive Data Percent cell count reference ranges are not reported, since discordance with absolute values may lead to misinterpretation of CBC data. Current Interpretive Data was last revised on 2017. Testing performed by: [facility], [facility], [address] [place] [address] Monocyte pct 9.7 % [facility] Comment: Interpretive Data Percent cell count reference ranges are not reported, since discordance with absolute values may lead to misinterpretation of CBC data. Current Interpretive Data was last revised on 2017. Testing performed by: [facility], [facility], [address] [place] [address] Eosinophil pct 0.5 % [facility] [place] Comment: Interpretive Data Percent cell count reference ranges are not reported, since discordance with absolute values may lead to misinterpretation of CBC data. Current Interpretive Data was last revised on 2017. Testing performed by: [facility] 2, [address] [place] [address] Basophil pct 0.5 % [facility] [place] Comment: Interpretive Data Percent cell count reference ranges are not reported, since discordance with absolute values may lead to misinterpretation of CBC data. Current Interpretive Data was last revised on 2017. Testing performed by: [place] [address], [address] [place] [address] Blood 10/07/2024 9:11 AM CDT 10/07/2024 9:13 AM CDT us Agustina Li MD PhD LAB BLOOD ORDERABLES Final Result [facility] [address] [facility] Department [place] [address] * (ABNORMAL) CBC with auto differential (10/07/2024 9:11 AM CDT) WBC 8.48 3.80 - 9.90 K/cumm Comment:Testing performed by : [facility] 2, [address] [place] [address] Hgb 10.4(L) 13.0 - 17.5 g/dL [facility] Comment:Testing performed by : [facility] 2, [address] [place] [address] Hct 32.4(L) 38.9 - 50.3 % [facility] [place] Comment:Testing performed by : [facility] 2, [address] [place] [address] Plt 212 150 - 400 K/cumm [facility] [place] Comment:Testing performed by : [facility] 2, [address] [place] [address] MPV 9.5 9.1 - 12.3 fL [facility] Comment:Testing performed by : [place] [address], [address] [place] [address] RBC 3.25(L) 4.30 - 5.80 M/cumm [facility] Comment:Testing performed by : [place] [address], [place] [address] MCV 99.7(H) 81.3 - 96.4 fL [facility] Comment:Testing performed by : [place] [address], [place] [address] MCH 32.0 27.1 - 33.3 pg [facility] Comment:Testing performed by : [place] [address] [place] [address] MCHC 32.1(L) 32.3 - 35.7 g/dL [facility] Comment:Testing performed by : [place] [address] [place] [address] RDW CV 16.2(H) 11.1 - 14.9 % [facility] Comment:Testing performed by : [place] [address] [place] [address] RDW SD 59.5(H) 35.7 - 48.1 fL [facility] Comment:Testing performed by : [address] [place] [address] ANC Prelim 6.76(H) 1.50 - 6.50 K/cumm [facility] Comment: Interpretive Data The rapid ANC is a preliminary automated count and may vary from the final ANC (Neut Abs) reported in the WBC differential that follows. Current interpretive data was last revised 2024. Testing performed by: [place] [address] [place] [address] Blood 10/07/2024 9:11 AM CDT 10/07/2024 9:13 AM CDT Agustina Li MD PhD LAB BLOOD ORDERABLES Final Result Performing Organization Address [facility] de Phone Number [facility] [address] [facility]. [facility] [place] [address] * (ABNORMAL) Cancer antigen 19-9 (10/07/2024 9:11 AM CDT) CA 19-9 ag 227.0(H) 0.0 - 35.0 units/mL Comment: Interpretive Data The Dereck CA 19-9 assay procedure was used. Results from different manufacturers or methods may not be comparable. Serial testing should be performed using the same method. Testing performed by: , [address] [place] [address]., [address] Blood 10/07/2024 9:11 AM CDT 10/07/2024 10:24 AM CDT Agustina Li MD PhD LAB BLOOD ORDERABLES Final Result Performing Organization Address [facility] de Phone Number [facility] [address] [facility]. [facility] [employer] [place] [address] * (ABNORMAL) Protime-INR (10/07/2024 9:11 AM CDT) PT 16.4(H) 9.7 - 13.0 sec Comment:Testing performed by : [facility], [address] [place] [address], [place] [address] INR 1.51(H) 0.90 - 1.20 [facility] Comment: Interpretive data Oral anticoagulant therapeutic ranges: Venous thromboembolism prophylaxis or treatment: 2.0-3.0 CARDIOLOGY Standard range: 2.0-3.0 High-intensity range: 2.5-3.5 Refer to indication-specific guidelines for appropriate target ranges for prosthetic heart valve replacement. Current interpretive data was last revised on 2019. Testing performed by: [facility], [address] [place] [address] Blood 10/07/2024 9:11 AM CDT 10/07/2024 9:38 AM CDT us Agustina Li MD PhD LAB BLOOD ORDERABLES Final Result [facility] [address] Department [place] [address] * (ABNORMAL) Comprehensive metabolic panel (10/07/2024 9:11 AM CDT) Sodium 131(L) 135 - 145 mmol/L Comment:Testing performed by : [facility], [address] [place] [address] Potassium, pl 4.1 3.3 - 4.9 mmol/L CERNER BJW[facility] Comment:Testing performed by : [facility], [address] [place] [address] Chloride 96(L) 97 - 110 mmol/L CERNER BJWCH Comment:Testing performed by : [facility], [address], [place] [address] CO2 22 22 - 32 mmol/L CERNER BJWCH Comment:Testing performed by : [facility], [address] [place] [address] Anion gap 13 2 - 15 mmol/L CERNER BJW[facility] Comment:Testing performed by : [facility], [address] [place] [address] BUN 33(H) 6 - 25 mg/dL CERNER BJW[facility] Comment:Testing performed by : [facility], [address], [place] [address] Creatinine 0.90 0.80 - 1.30 mg/dL CERNER BJWCH Comment:Testing performed by : [facility], [address], [place] [address] Glucose 171 70 - 199 mg/dL CERNER [...] was last revised 2022. Testing performed by: [facility], [address], [place] [address] Calcium 9.0 8.5 - 10.3 mg/dL CERNER BJWCH Comment:Testing performed by : [facility], [address], [place] [address] Bilirubin, total 0.5 0.1 - 1.2 mg/dL CERNER BJW[facility] Comment:Testing performed by : [facility], [address], [place] [address] Protein, pl 7.4 6.5 - 8.5 g/dL CERNER BJW[facility] Comment:Testing performed by : [facility], [address], [place] [address] Albumin 3.9 3.5 - 5.0 g/dL CERNER BJWCH Comment:Testing performed by : [facility], [address], [place] [address] Alk phos 423(H) 40 - 130 Units/L CERNER BJW[facility] Comment:Testing performed by : [facility], [address], [place] [address] ALT 35 7 - 55 Units/L CERNER BJW[facility] Comment:Testing performed by : [facility], [address], [place] [address] AST 37 10 - 50 Units/L CERNER BJW[facility] Comment:Testing performed by : [facility], [address], [place] [address] Blood 10/07/2024 9:11 AM CDT 10/07/2024 9:38 AM CDT Agustina Li MD PhD LAB BLOOD ORDERABLES Edited Result - Final [facility] [address] [facility] [place], [place] [id number] * (ABNORMAL) Protime-INR (09/30/2024 2:30 PM CDT) INR 1.3(H) [facility] Comment: Reference Range 0.9-1.1 Moderate-intensity Warfarin Therapy 2.0-3.0 Higher-intensity Warfarin Therapy 3.0-4.0 PT 13.7(H) 9.0 - 11.5 sec [facility] Comment: For additional information, please refer to http://Sanlorenzo.SecondMarket/faq/HWW488 (This link is being provided for informational/ educational purposes only.) Blood 09/30/2024 2:30 PM CDT 09/30/2024 2:32 PM CDT Narrative [facility] - 10/01/2024 12:17 AM CDT FASTING:NO FASTING: NO us Chris Hart MD LAB BLOOD ORDERABLES Final Result Performing Organization Address City/[facility]/ZIP Co de Phone Number [facility] QUALIA (formerly known as [employer])[facility] [address] [place] [address] * (ABNORMAL) Protime-INR (09/23/2024 11:21 AM CDT) INR 1.3(H) [facility] Comment: Reference Range 0.9-1.1 Moderate-intensity Warfarin Therapy 2.0-3.0 Higher-intensity Warfarin Therapy 3.0-4.0 PT 14.0(H) 9.0 - 11.5 sec [facility] Comment: For additional information, please refer to http://Sanlorenzo.SecondMarket/faq/GUM326 (This link is being provided for informational/ educational purposes only.) Blood 09/23/2024 11:2 1 AM CDT 09/23/2024 11:21 AM CDT us Chris Hart MD LAB BLOOD ORDERABLES Final Result Performing Organization Address City/[facility]/ZIP Co de Phone Number [facility] [address] [place] [address] * eGFR (09/16/2024 8:08 AM CDT) eGFR [...] was last reviewed 2021. Testing performed by: [facility], [address] [facility], [place] [address] Blood 09/16/2024 8:08 AM CDT 09/16/2024 8:48 AM CDT us Gorge Vaughan MD PhD LAB BLOOD ORDERABLES Final Result [facility] [address] [facility]. Department [place] [address] * (ABNORMAL) Differential, auto (09/16/2024 8:08 AM CDT) Neutrophil abs 5.67 1.50 - 6.50 K/cumm Comment:Testing performed by : [facility], [address], [address] [place] [address] Imm gran abs 0.15(H) 0.00 - 0.10 K/cumm CERNER BJWCH Comment:Testing performed by : [facility] 2, [address] [place] [address] Lymphocyte abs 0.47(L) 0.80 - 3.30 K/cumm CERNER BJWCH Comment:Testing performed by : [place] [address], [address] [place] [address] Monocyte abs 0.64 0.20 - 0.80 K/cumm CERNER BJWCH Comment:Testing performed by : [place] [address] [place] [address] Eosinophil abs 0.03 0.00 - 0.50 K/cumm CERNER BJWCH Comment:Testing performed by : [place] [address] [place] [address] Basophil abs 0.01 0.00 - 0.10 K/cumm CERNER BJWCH Comment:Testing performed by : [place] [address] [place] [address] Neutrophil pct 81.4 % CERNER B[facility] Comment: Interpretive Data Percent cell count reference ranges are not reported, since discordance with absolute values may lead to misinterpretation of CBC data. Current Interpretive Data was last revised on 2017. Testing performed by: [place] [address] [place] [address] Imm gran pct 2.2 % CERNER B[facility] Comment: Interpretive Data Percent cell count reference ranges are not reported, since discordance with absolute values may lead to misinterpretation of CBC data. Current Interpretive Data was last revised on 2017. Testing performed by: [address] [place] [address] Lymphocyte pct 6.7 % CERNER B[facility] Comment: Interpretive Data Percent cell count reference ranges are not reported, since discordance with absolute values may lead to misinterpretation of CBC data. Current Interpretive Data was last revised on 2017. Testing performed by: [facility], [facility], [address] [place] [address] Monocyte pct 9.2 % [facility] Comment: Interpretive Data Percent cell count reference ranges are not reported, since discordance with absolute values may lead to misinterpretation of CBC data. Current Interpretive Data was last revised on 2017. Testing performed by: [facility], [facility], [address] [place] [address] Eosinophil pct 0.4 % [facility] Comment: Interpretive Data Percent cell count reference ranges are not reported, since discordance with absolute values may lead to misinterpretation of CBC data. Current Interpretive Data was last revised on 2017. Testing performed by: [facility], [facility], [address] [place] [address] Basophil pct 0.1 % [facility] Comment: Interpretive Data Percent cell count reference ranges are not reported, since discordance with absolute values may lead to misinterpretation of CBC data. Current Interpretive Data was last revised on 2017. Testing performed by: [facility] 2, [address] [place] [address] Blood 09/16/2024 8:08 AM CDT 09/16/2024 8:17 AM CDT us Gorge Vaughan MD PhD LAB BLOOD ORDERABLES Final Result [facility] [address] [facility]. Department [place] [address] * (ABNORMAL) CBC with auto differential (09/16/2024 8:08 AM CDT) WBC 6.97 3.80 - 9.90 K/cumm Comment:Testing performed by : [facility] 2, [address] [place] [address] Hgb 8.4(L) 13.0 - 17.5 g/dL CERNER BJWCH Comment:Testing performed by : [facility], [facility], [address], [place] [address] Hct 25.2(L) 38.9 - 50.3 % CERNER BJWCH Comment:Testing performed by : [facility] 2, [address], [place] [address] Plt 102(L) 150 - 400 K/cumm CERNER BJWCH Comment:Testing performed by : [place] [address], [address], [place] [address] MPV 10.1 9.1 - 12.3 fL CERNER BJWCH Comment:Testing performed by : [place] [address], [address] [place] [address] RBC 2.39(L) 4.30 - 5.80 M/cumm CERNER BJWCH Comment:Testing performed by : [place] [address], [address], [place] [address] MCV 105.4(H) 81.3 - 96.4 fL CERNER BJWCH Comment:Testing performed by : [place] [address], [address] [place] [address] MCH 35.1(H) 27.1 - 33.3 pg CERNER BJWCH Comment:Testing performed by : [place] [address], [address], [place] [address] MCHC 33.3 32.3 - 35.7 g/dL CERNER BJW[facility] Comment:Testing performed by : [place] [address], [address], [place] [address] RDW CV 17.0(H) 11.1 - 14.9 % CERNER BJWCH Comment:Testing performed by : [facility] 2, [address], [place] [address] RDW SD 66.4(H) 35.7 - 48.1 fL CERNER BJWCH Comment:Testing performed by : [facility], [address], [address] [place] [address] ANC Prelim 5.67 1.50 - 6.50 K/cumm STAN [facility]TON Comment: Interpretive Data The rapid ANC is a preliminary automated count and may vary from the final ANC (Neut Abs) reported in the WBC differential that follows. Current interpretive data was last revised 2024. Testing performed by: [facility], [facility], [address] [place] [address] Blood 09/16/2024 8:08 AM CDT 09/16/2024 8:17 AM CDT Gorge Vaughan MD PhD LAB BLOOD ORDERABLES Final Result Performing Organization Address [facility] Co de Phone Number [facility] [address] [address] [facility] [place] [address] * (ABNORMAL) Cancer antigen 19-9 (09/16/2024 8:08 AM CDT) CA 19-9 ag 152.0(H) 0.0 - 35.0 units/mL Comment: Interpretive Data The Dereck CA 19-9 assay procedure was used. Results from different manufacturers or methods may not be comparable. Serial testing should be performed using the same method. Testing performed by: , [address] [place] [address], [place]., [address] Blood 09/16/2024 8:08 AM CDT 09/16/2024 1:03 PM CDT Gorge Vaughan MD PhD LAB BLOOD ORDERABLES Final Result Performing Organization Address City/[facility]/ZIP Co de Phone Number [facility] [address] [address] [facility] [place] [address] * (ABNORMAL) Protime-INR (09/16/2024 8:08 AM CDT) PT 16.8(H) 9.7 - 13.0 sec Comment:Testing performed by : [facility], [address] [place] [address] INR 1.54(H) 0.90 - 1.20 STAN [facility]TON Comment: Interpretive data Oral anticoagulant therapeutic ranges: Venous thromboembolism prophylaxis or treatment: 2.0-3.0 CARDIOLOGY Standard range: 2.0-3.0 High-intensity range: 2.5-3.5 Refer to indication-specific guidelines for appropriate target ranges for prosthetic heart valve replacement. Current interpretive data was last revised on 2019. Testing performed by: [facility], [address] [place] [address] Blood 09/16/2024 8:08 AM CDT 09/16/2024 8:48 AM CDT us Chris Hart MD LAB BLOOD ORDERABLES Final Result [facility] [address] [place] [address] * (ABNORMAL) Comprehensive metabolic panel (09/16/2024 8:08 AM CDT) Sodium 134(L) 135 - 145 mmol/L Comment:Testing performed by : [facility], [address], [place] [address] Potassium, pl 3.5 3.3 - 4.9 mmol/L [facility]AN [facility] Comment:Testing performed by : [facility], [address] [place] [address] Chloride 100 97 - 110 mmol/L STAN [facility]TON Comment:Testing performed by : [facility], [address] [place] [address] CO2 23 22 - 32 mmol/L [facility]AN [facility] Comment:Testing performed by : [facility], [address] [place] [address] Anion gap 11 2 - 15 mmol/L [facility] Comment:Testing performed by : [facility], [address], [place] [address] BUN 22 6 - 25 mg/dL CERNER BJWCH Comment:Testing performed by : [facility], [address], [place] [address] Creatinine 0.70(L) 0.80 - 1.30 mg/dL CERNER BJWCH Comment:Testing performed by : [facility], [address], [place] [address] Glucose 127 70 - 199 mg/dL CERNER [...] was last revised 2022. Testing performed by: [facility], [address], [place] [address] Calcium 8.3(L) 8.5 - 10.3 mg/dL CERNER BJWCH Comment:Testing performed by : [facility], [address], [place] [address] Bilirubin, total 0.6 0.1 - 1.2 mg/dL CERNER BJWCH Comment:Testing performed by : [facility], [address], [place] [address] Protein, pl 5.8(L) 6.5 - 8.5 g/dL CERNER BJWCH Comment:Testing performed by : [facility], [address], [place] [address] Albumin 2.9(L) 3.5 - 5.0 g/dL CERNER BJWCH Comment:Testing performed by : [facility], [address], [place] [address] Alk phos 388(H) 40 - 130 Units/L CERNER BJWCH Comment:Testing performed by : [facility], [address], [place] [address] ALT 36 7 - 55 Units/L [facility] Comment:Testing performed by : [facility], [address], [place] [address] AST 46 10 - 50 Units/L STAN ALVAREZ Comment:Testing performed by : [facility], [address] [place] [address] Blood 09/16/2024 8:08 AM CDT 09/16/2024 8:48 AM CDT Gorge Vaughan MD PhD LAB BLOOD ORDERABLES Final Result Performing Organization Address City/[facility]/ZIP Co de Phone Number [facility] [address] [place] [address] * COPY(IES) SENT TO: (09/11/2024 10:40 AM CDT) COPY(IES) SENT TO: [facility] Comment: SITEMAN - COPY TO ACCOUNT [address] [facility] [facility] [address] 09/11/2024 10:4 0 AM CDT 09/11/2024 10:40 [...] SMEAR WAS REVIEWED BY: MIGUEL BURNETT M.D. [employer] [address] [place] [id number] [facility] ID NO. [id number] Blood 09/11/2024 10:4 0 AM CDT 09/11/2024 10:40 AM CDT Narrative [facility] - 09/15/2024 3:41 PM CDT FASTING:NO FASTING: NO Result [facility] Agustina Li MD PhD LAB BLOOD ORDERABLES Final Result Performing Organization Address [facility] de Phone Number [facility] [address] [place] [address] * (ABNORMAL) Protime-INR (09/11/2024 10:40 AM CDT) INR 1.6(H) [facility] [place] Comment: Reference Range 0.9-1.1 Moderate-intensity Warfarin Therapy 2.0-3.0 Higher-intensity Warfarin Therapy 3.0-4.0 PT 17.0(H) 9.0 - 11.5 sec [facility]ALIA (formerly known as [facility])[place] Comment: For additional information, please refer to http://education.SecondMarket/faq/VCR456 (This link is being provided for informational/ educational purposes only.) Blood 09/11/2024 10:4 0 AM CDT 09/11/2024 10:40 AM CDT Narrative Dress Code - 09/15/2024 3:41 PM CDT FASTING:NO FASTING: NO Result [facility] Agustina Li MD PhD LAB BLOOD ORDERABLES Final Result Performing Organization Address [facility] de Phone Number [facility] [address] [place] [address] * (ABNORMAL) Comprehensive metabolic panel (09/11/2024 10:40 AM CDT) Glucose 105 65 - 139 mg/dL [facility] (formerly known as [facility] Comment: Non-fasting reference interval BUN 22 7 - 25 mg/dL [facility] (formerly known as [facility] Creatinine 0.69(L) 0.70 - 1.28 mg/dL [facility] (formerly known as Local[facility])[place] eGFR 97 > OR = 60 mL/min/1.7 3m2 [facility] BUN/creat ratio 32(H) 6 - 22 (calc) [facility] Sodium 132(L) 135 - 146 mmol/L [facility] Potassium, pl 3.9 3.5 - 5.3 mmol/L [facility] Chloride 99 98 - 110 mmol/L [facility] CO2 27 20 - 32 mmol/L [facility] Calcium 7.6(L) 8.6 - 10.3 mg/dL [facility] Protein, sr 5.0(L) 6.1 - 8.1 g/dL [facility] Albumin 2.6(L) 3.6 - 5.1 g/dL [facility] [place] GLOBULIN 2.4 1.9 - 3.7 g/dL (calc) [facility] Alb/glob ratio 1.1 1.0 - 2.5 (calc) [facility] Bilirubin, total 0.8 0.2 - 1.2 mg/dL [facility] Alk phos 204(H) 35 - 144 U/L [facility] AST 40(H) 10 - 35 U/L [facility] ALT (SGPT) 25 9 - 46 U/L [facility] Blood 09/11/2024 10:4 0 AM CDT 09/11/2024 10:40 AM CDT Narrative [facility] - 09/15/2024 3:41 PM CDT FASTING:NO FASTING: NO us Agustina Li MD PhD LAB BLOOD ORDERABLES Final Result [facility] PerezM[facility]calero Service UnitL[facility] [address] [place] [address] * SCAN - LABS (09/11/2024) us Provider [...] was last reviewed 2021. Testing performed by: [facility], [address] [place] [address] Blood 09/09/2024 7:32 AM CDT 09/09/2024 8:19 AM CDT us Gorge Vaughan MD PhD LAB BLOOD ORDERABLES Final Result [facility] [address] Department of Laboratories [place], [place] [id number] * (ABNORMAL) Differential, auto (09/09/2024 7:32 AM CDT) Neutrophil abs 4.58 1.50 - 6.50 K/cumm Comment:Testing performed by : [facility], [facility], [address] [place] [address] Imm gran abs 0.05 0.00 - 0.10 K/cumm STAN [facility]LE[facility] Comment:Testing performed by : [facility], [facility], [address] [place] [address] Lymphocyte abs 0.25(L) 0.80 - 3.30 K/cumm STAN STAPLETON Comment:Testing performed by : [facility], [facility], [address] [place] [address] Monocyte abs 0.51 0.20 - 0.80 K/cumm CERNER BJWCH Comment:Testing performed by : [facility], [facility], [address] [place] [address] Eosinophil abs 0.00 0.00 - 0.50 K/cumm CERNER BJWCH Comment:Testing performed by : [facility], [facility], [address] [place] [address] Basophil abs 0.00 0.00 - 0.10 K/cumm CERNER BJWCH Comment:Testing performed by : [facility], [facility], [address] [place] [address] Neutrophil pct 85.0 % CERNER BJW[facility] Comment: Interpretive Data Percent cell count reference ranges are not reported, since discordance with absolute values may lead to misinterpretation of CBC data. Current Interpretive Data was last revised on 2017. Testing performed by: [facility], [facility], [address] [place] [address] Imm gran pct 0.9 % CERNER B[facility] Comment: Interpretive Data Percent cell count reference ranges are not reported, since discordance with absolute values may lead to misinterpretation of CBC data. Current Interpretive Data was last revised on 2017. Testing performed by: [facility] 2, [address] [place] [address] Lymphocyte pct 4.6 % CERNER BJWCH Comment: Interpretive Data Percent cell count reference ranges are not reported, since discordance with absolute values may lead to misinterpretation of CBC data. Current Interpretive Data was last revised on 2017. Testing performed by: [facility] 2, [address] [place] [address] Monocyte pct 9.5 % CERNER BJWCH Comment: Interpretive Data Percent cell count reference ranges are not reported, since discordance with absolute values may lead to misinterpretation of CBC data. Current Interpretive Data was last revised on 2017. Testing performed by: [facility], [facility], [address] [place] [address] Eosinophil pct 0.0 % STAN ALVAREZ Comment: Interpretive Data Percent cell count reference ranges are not reported, since discordance with absolute values may lead to misinterpretation of CBC data. Current Interpretive Data was last revised on 2017. Testing performed by: [facility], [facility], [address] [place] [address] Basophil pct 0.0 % STAN [facility] Comment: Interpretive Data Percent cell count reference ranges are not reported, since discordance with absolute values may lead to misinterpretation of CBC data. Current Interpretive Data was last revised on 2017. Testing performed by: [place] [address] [place] [address] Blood 09/09/2024 7:32 AM CDT 09/09/2024 7:50 AM CDT Gorge Vaughan MD PhD LAB BLOOD ORDERABLES Final Result [facility] [address] [facility] [place] [address] * (ABNORMAL) CBC with auto differential (09/09/2024 7:32 AM CDT) WBC 5.39 3.80 - 9.90 K/cumm Comment:Testing performed by : [facility] 2, [address] [place] [address] Hgb 8.2(L) 13.0 - 17.5 g/dL STAN [facility] Comment:Testing performed by : [facility] 2, [address] [place] [address] Hct 24.8(L) 38.9 - 50.3 % STAN [facility] Comment:Testing performed by : [facility] 2, [address] [place] [address] Plt 62(L) 150 - 400 K/cumm CERNER BJWCH Comment:Testing performed by : [facility], [facility], [address] [place] [address] MPV 10.4 9.1 - 12.3 fL CERNER BJW[facility] Comment:Testing performed by : [place] [address], [address] [place] [address] RBC 2.30(L) 4.30 - 5.80 M/cumm C[facility]ER [facility] Comment:Testing performed by : [place] [address], [address] [place] [address] MCV 107.8(H) 81.3 - 96.4 fL [facility]ER [facility] Comment:Testing performed by : [place] [address], [place] [address] MCH 35.7(H) 27.1 - 33.3 pg [facility]ER [facility] Comment:Testing performed by : [place] [address] [place] [address] MCHC 33.1 32.3 - 35.7 g/dL [facility] Comment:Testing performed by : [place] [address] [place] [address] RDW CV 17.3(H) 11.1 - 14.9 % C[facility]ER [facility] Comment:Testing performed by : [place] [address] [place] [address] RDW SD 70.0(H) 35.7 - 48.1 fL [facility]ER [facility] Comment:Testing performed by : [address] [place] [address] ANC Prelim 4.58 1.50 - 6.50 K/cumm CERNER B[facility] Comment: Interpretive Data The rapid ANC is a preliminary automated count and may vary from the final ANC (Neut Abs) reported in the WBC differential that follows. Current interpretive data was last revised 2024. Testing performed by: [place] [address], [place] [address] Morphologic Screen Results confirmed by manual morphology review. STAN STAPLETON Comment:Testing performed by : [facility], [address], [address] [place] [address] Blood 09/09/2024 7:32 AM CDT 09/09/2024 7:50 AM CDT Gorge Vaughan MD PhD LAB BLOOD ORDERABLES Edited Result - Final Performing Organization Address [facility] de Phone Number [facility]AN [facility] [address] [facility]. [place] [address] * (ABNORMAL) Cancer antigen 19-9 (09/09/2024 7:32 AM CDT) CA 19-9 ag 95.4(H) 0.0 - 35.0 units/mL Comment: Interpretive Data The Dereck CA 19-9 assay procedure was used. Results from different manufacturers or methods may not be comparable. Serial testing should be performed using the same method. Testing performed by: , [address] [place] [address], [place]., [address] Blood 09/09/2024 7:32 AM CDT 09/09/2024 10:24 AM CDT Gorge Vaughan MD PhD LAB BLOOD ORDERABLES Final Result Performing Organization Address [facility] Center/[facility] de Phone Number STAN COREYWCH [address] [facility]. Department [employer] [place] [address] * (ABNORMAL) Protime-INR (09/09/2024 7:32 AM CDT) PT 22.0(H) 9.7 - 13.0 sec Comment:Testing performed by : [facility], [address] [place] [address] INR 2.01(H) 0.90 - 1.20 STAN STAPLETON Comment: Interpretive data Oral anticoagulant therapeutic ranges: Venous thromboembolism prophylaxis or treatment: 2.0-3.0 CARDIOLOGY Standard range: 2.0-3.0 High-intensity range: 2.5-3.5 Refer to indication-specific guidelines for appropriate target ranges for prosthetic heart valve replacement. Current interpretive data was last revised on 2019. Testing performed by: [facility], [address] [place] [address] Blood 09/09/2024 7:32 AM CDT 09/09/2024 8:19 AM CDT us Chris Hart MD LAB BLOOD ORDERABLES Final Result [facility] [address] [place] [address] * (ABNORMAL) Comprehensive metabolic panel (09/09/2024 7:32 AM CDT) Sodium 132(L) 135 - 145 mmol/L Comment:Testing performed by : [facility], [address] [place] [address] Potassium, pl 3.6 3.3 - 4.9 mmol/L CERNER BJW Comment:Testing performed by : [facility], [address] [place] [address] Chloride 96(L) 97 - 110 mmol/L CERKERI BJW Comment:Testing performed by : [facility], [address] [place] [address] CO2 27 22 - 32 mmol/L CERNER BJWCH Comment:Testing performed by : [facility], [address] [place] [address] Anion gap 9 2 - 15 mmol/L CERNER BJWCH Comment:Testing performed by : [facility], [address] [place] [address] BUN 17 6 - 25 mg/dL CERNER BJWCH Comment:Testing performed by : [facility], [address] [place] [address] Creatinine 0.80 0.80 - 1.30 mg/dL CERNER BJWCH Comment:Testing performed by : [facility], [address], [place] [address] Glucose 117 70 - 199 mg/dL CERNER [...] was last revised 2022. Testing performed by: [facility], [address], [place] [address] Calcium 7.7(L) 8.5 - 10.3 mg/dL CERNER BJWCH Comment:Testing performed by : [facility], [address], [place] [address] Bilirubin, total 0.7 0.1 - 1.2 mg/dL CERNER BJWCH Comment:Testing performed by : [facility], [address], [place] [address] Protein, pl 5.1(L) 6.5 - 8.5 g/dL CERNER BJWCH Comment:Testing performed by : [facility], [address], [place] [address] Albumin 2.6(L) 3.5 - 5.0 g/dL CERNER BJWCH Comment:Testing performed by : [facility], [address], [place] [address] Alk phos 227(H) 40 - 130 Units/L CERNER BJWCH Comment:Testing performed by : [facility], [address], [place] [address] ALT 28 7 - 55 Units/L CERNER BJWCH Comment:Testing performed by : [facility], [address], [place] [address] AST 50 10 - 50 Units/L CERNER BJWCH Comment:Testing performed by : [facility], [address] [facility], [place] [address] Blood 09/09/2024 7:32 AM CDT 09/09/2024 8:19 AM CDT Gorge Vaughan MD PhD LAB BLOOD ORDERABLES Edited Result - Final Performing Organization Address City/[facility]/ZIP Co de Phone Number STAN ALVAREZ [address] [facility]. Department [place] [address] * ECG 12 lead (09/07/2024 11:34 AM CDT) Pathologist [facility] Ventricular Rate EKG/Min 65 BPM [facility] Atrial Rate 65 BPM [facility] PA-Interval (MSEC) 206 ms [facility] QRS-Interval (MSEC) 96 ms [facility] QT-Interval (MSEC) 506 ms [facility] QTc 526 ms [facility] P Flora 18 degrees [facility] R Flora -27 degrees [facility] T Flora 241 degrees [facility] Diagnosis Atrial-paced rhythm Minimal voltage criteria for LVH, may be normal variant ( R in aVL ) T wave abnormality, consider inferior ischemia T wave abnormality, consider anterolateral ischemia Prolonged QT Abnormal ECG Confirmed by Georges Smith MD ([id number]) on 09/08/2024 4:32:43 PM [facility] 09/07/2024 11:3 4 AM CDT 09/08/2024 4:32 PM CDT us Sharron Amador MD ECG ORDERABLES Final Result Performing Organization Address City/[facility]/ZIP Co de Phone Number [facility] * XR Chest 1 View (09/07/2024 8:01 [...] CDT) Date Notified [id number] Time Notified 601 [facility] TestName pO2 Art and O2 Sat Art (Noni) [facility] Called/Read Back Sravani [facility] Credentials RN [facility] Called By SB [facility] Blood 09/07/2024 5:39 AM CDT 09/07/2024 5:49 AM CDT us Perla Roldan MD LAB BLOOD ORDERABLES F inal Result [facility] Department [place] [address] * (ABNORMAL) Blood gas, arterial (09/07/2024 5:39 AM CDT) pH, Art 7.45 7.35 - 7.45 PCO2, Arterial 43 35 - 45 mmHg [facility] PO2, Arterial 36(C) 83 - 108 mmHg [facility] Comment:Repeated and verifie d. HCO3 Art (Calculated) 31(H) 20 - 30 mmol/L [facility] BE, art 6 mmol/L [facility] Comment: Interpretive Data No Reference Range Established Current Interpretive Data was last revised on 2017 O2 Sat Art (Measured) 64(C) 90 - 95 % [facility] Comment:Repeated and verifie d. Blood 09/07/2024 5:39 AM CDT 09/07/2024 5:49 AM CDT us Perla Roldan MD LAB BLOOD ORDERABLES F inal Result [facility] Department [place] [address] * eGFR (09/07/2024 2:43 AM CDT) eGFR [...] LAB BLOOD ORDERABLES Lila dawson Result [facility] Department [place] [address] * (ABNORMAL) Differential, auto (09/07/2024 2:43 AM CDT) Neutrophil abs 5.50 1.50 - 6.50 K/cumm Imm gran abs 0.04 0.00 - 0.10 K/cumm [facility] Lymphocyte abs 0.21(L) 0.80 - 3.30 K/cumm [facility] Monocyte abs 0.42 0.20 - 0.80 K/cumm [facility] Eosinophil abs 0.01 0.00 - 0.50 K/cumm [facility] Basophil abs 0.01 0.00 - 0.10 K/cumm [facility] Neutrophil pct 88.8 % [facility] Comment: Interpretive Data Percent cell count reference ranges are not reported, since discordance with absolute values may lead to misinterpretation of CBC data. Current Interpretive Data was last revised on 2017. Imm gran pct 0.6 % [facility] Comment: Interpretive Data Percent cell count reference ranges are not reported, since discordance with absolute values may lead to misinterpretation of CBC data. Current Interpretive Data was last revised on 2017. Lymphocyte pct 3.4 % [facility] Comment: Interpretive Data Percent cell count reference ranges are not reported, since discordance with absolute values may lead to misinterpretation of CBC data. Current Interpretive Data was last revised on 2017. Monocyte pct 6.8 % [facility] Comment: Interpretive Data Percent cell count reference ranges are not reported, since discordance with absolute values may lead to misinterpretation of CBC data. Current Interpretive Data was last revised on 2017. Eosinophil pct 0.2 % [facility] Comment: Interpretive Data Percent cell count reference ranges are not reported, since discordance with absolute values may lead to misinterpretation of CBC data. Current Interpretive Data was last revised on 2017. Basophil pct 0.2 % [facility] Comment: Interpretive Data Percent cell count reference ranges are not reported, since discordance with absolute values may lead to misinterpretation of CBC data. Current Interpretive Data was last revised on 2017. Blood 09/07/2024 2:43 AM CDT 09/07/2024 4:42 AM CDT Smith Sawyer MD LAB BLOOD ORDERABLES Lila l Result Performing Organization Address City/[facility] Co de Phone Number [facility] Department [place] [address] * Critical Result Callback Chemistry (09/07/2024 2:43 AM CDT) Date Notified [id number] Time Notified 454 [facility] TestName p O2 Art [facility] Called/Read Back Olivier Campos [facility] Credentials RN [facility] Called By LUKAS [facility] Blood 09/07/2024 2:43 AM CDT 09/07/2024 4:41 AM CDT us Perla Roldan MD LAB BLOOD ORDERABLES F inal Result Performing Organization Address [facility] de Phone Number [facility] Department [place] [address] * (ABNORMAL) CBC with auto differential (09/07/2024 2:43 AM CDT) WBC 6.19 3.80 - 9.90 K/cumm Hgb 10.1(L) 13.0 - 17.5 g/dL [facility] Hct 30.0(L) 38.9 - 50.3 % [facility] Plt 57(L) 150 - 400 K/cumm [facility] MPV 11.7 9.1 - 12.3 fL [facility] RBC 2.80(L) 4.30 - 5.80 M/cumm [facility] MCV 107.1(H) 81.3 - 96.4 fL [facility] MCH 36.1(H) 27.1 - 33.3 pg [facility] MCHC 33.7 32.3 - 35.7 g/dL [facility] RDW CV 18.8(H) 11.1 - 14.9 % [facility] RDW SD 73.8(H) 35.7 - 48.1 fL [facility] NRBC abs 0.00 0.00 - 0.01 K/cumm [facility] Blood 09/07/2024 2:43 AM CDT 09/07/2024 4:42 AM CDT Smith Sawyer MD LAB BLOOD ORDERABLES Lila l Result Performing Organization Address [facility] de Phone Number [facility] [place] [employer] [place] [address] * aPTT (09/07/2024 2:43 AM CDT) aPTT [...] ORDERABLES Lila l Result Performing Organization Address [facility] de Phone Number [facility] Department [place] [employer] [place] [address] * (ABNORMAL) Protime-INR (09/07/2024 2:43 AM CDT) PT 28.4(H) 9.7 - 13.0 sec INR 2.58(H) 0.90 - 1.20 [facility] Comment: Interpretive data Oral anticoagulant therapeutic ranges: Venous thromboembolism prophylaxis or treatment: 2.0-3.0 CARDIOLOGY Standard range: 2.0-3.0 High-intensity range: 2.5-3.5 Refer to indication-specific guidelines for appropriate target ranges for prosthetic heart valve replacement. Current interpretive data was last revised on 2019. Blood 09/07/2024 2:43 AM CDT 09/07/2024 4:40 AM CDT Zuleima Levine MD LAB BLOOD ORDERABLES Lila l Result Performing Organization Address [facility] Co de Phone Number [facility] [place] [address] * Type and screen (09/07/2024 2:43 AM CDT) Minna, indirect Negative ABO Rh A Positive [facility] Blood 09/07/2024 2:43 AM CDT 09/07/2024 4:44 AM CDT Narrative [facility] - 09/07/2024 7:55 AM CDT Has the patient had Daratumumab or Isatuximab in the past 6 months?->Unknown Result [facility] Smith Sawyer MD LAB BLOOD BANK TEST ORDER DEMETRIO Final Result Performing Organization Address [facility] de Phone Number [facility] [place] [address] * Uric acid (09/07/2024 2:43 AM CDT) Pathologist [facility] Uric acid 3.8 3.0 - 8.0 mg/dL Blood 09/07/2024 2:43 AM CDT 09/07/2024 4:42 AM CDT Narrative [facility] - 09/07/2024 5:14 AM CDT Saturday and only. Morning draw. . Smith Sawyer MD LAB BLOOD ORDERABLES Lila l Result Performing Organization Address City/[facility] Co de Phone Number [facility] Department [place] [address] * Phosphorus (09/07/2024 2:43 AM CDT) Pathologist [facility] Phosphorus, pl 2.9 2.3 - 4.5 mg/dL Blood 09/07/2024 2:43 AM CDT 09/07/2024 4:42 AM CDT Smith Sawyer MD LAB BLOOD ORDERABLES Lila l Result Performing Organization Address [facility] de Phone Number [facility] [place] [address] * (ABNORMAL) Lactate dehydrogenase (LD) (09/07/2024 2:43 AM CDT) [facility] Lactate dehydrogenase (LDH) 371(H) 100 - 250 Units/L Blood 09/07/2024 2:43 AM CDT 09/07/2024 4:42 AM CDT Narrative [facility] - 09/07/2024 5:14 AM CDT Saturday and only. Morning draw. Smith Sawyer MD LAB BLOOD ORDERABLES Lila l Result Performing Organization Address [facility] de Phone Number [facility] [place] [address] * (ABNORMAL) Blood gas, arterial (09/07/2024 2:43 AM CDT) Pathologist [facility] pH, Art 7.45 7.35 - 7.45 PCO2, Arterial 42 35 - 45 mmHg [facility] PO2, Arterial 32(C) 83 - 108 mmHg [facility] Comment:Repeated and verifie d. HCO3 Art (Calculated) 30 20 - 30 mmol/L [facility] BE, art 4 mmol/L [facility] Comment: Interpretive Data No Reference Range Established Current Interpretive Data was last revised on 2017 O2 Sat Art (Measured) 58(C) 90 - 95 % [facility] Comment:Repeated and verifie d. Blood 09/07/2024 2:43 AM CDT 09/07/2024 4:41 AM CDT us Perla Roldan MD LAB BLOOD ORDERABLES F inal Result [facility] Department [place] [address] * (ABNORMAL) Comprehensive metabolic panel (09/07/2024 2:43 AM CDT) Sodium 136 135 - 145 mmol/L Potassium, pl 3.8 3.3 - 4.9 mmol/L [facility] Chloride 96(L) 97 - 110 mmol/L [facility] CO2 33(H) 22 - 32 mmol/L [facility] Anion gap 7 2 - 15 mmol/L [facility] BUN 15 6 - 25 mg/dL [facility] Creatinine 0.84 0.80 - 1.30 mg/dL [facility] Glucose 116 70 - 199 mg/dL [facility] Comment: Interpretive Data Fasting glucose [...] 2022. Calcium 7.9(L) 8.5 - 10.3 mg/dL [facility] Bilirubin, total 1.4(H) 0.1 - 1.2 mg/dL [facility] Protein, pl 5.4(L) 6.5 - 8.5 g/dL [facility] Albumin 2.4(L) 3.5 - 5.0 g/dL [facility] Alk phos 275(H) 40 - 130 Units/L [facility] ALT 31 7 - 55 Units/L [facility] AST 78(H) 10 - 50 Units/L [facility] Blood 09/07/2024 2:43 AM CDT 09/07/2024 4:42 AM CDT Smith Sawyer MD LAB BLOOD ORDERABLES Lila l Result Performing Organization Address [facility] Co de Phone Number [facility] [place] [address] * eGFR (09/06/2024 12:41 AM CDT) eGFR [...] ORDERABLES Lila l Result Performing Organization Address City/[facility]/ZIP Co de Phone Number [facility] Department [place] [address] * (ABNORMAL) Differential, auto (09/06/2024 12:41 AM CDT) Neutrophil abs 4.99 1.50 - 6.50 K/cumm Imm gran abs 0.07 0.00 - 0.10 K/cumm [facility] Lymphocyte abs 0.35(L) 0.80 - 3.30 K/cumm [facility] Monocyte abs 0.94(H) 0.20 - 0.80 K/cumm [facility] Eosinophil abs 0.01 0.00 - 0.50 K/cumm [facility] Basophil abs 0.01 0.00 - 0.10 K/cumm [facility] Neutrophil pct 78.2 % [facility] Comment: Interpretive Data Percent cell count reference ranges are not reported, since discordance with absolute values may lead to misinterpretation of CBC data. Current Interpretive Data was last revised on 2017. Imm gran pct 1.1 % [facility] Comment: Interpretive Data Percent cell count reference ranges are not reported, since discordance with absolute values may lead to misinterpretation of CBC data. Current Interpretive Data was last revised on 2017. Lymphocyte pct 5.5 % [facility] Comment: Interpretive Data Percent cell count reference ranges are not reported, since discordance with absolute values may lead to misinterpretation of CBC data. Current Interpretive Data was last revised on 2017. Monocyte pct 14.8 % [facility] Comment: Interpretive Data Percent cell count reference ranges are not reported, since discordance with absolute values may lead to misinterpretation of CBC data. Current Interpretive Data was last revised on 2017. Eosinophil pct 0.2 % [facility] Comment: Interpretive Data Percent cell count reference ranges are not reported, since discordance with absolute values may lead to misinterpretation of CBC data. Current Interpretive Data was last revised on 2017. Basophil pct 0.2 % [facility] Comment: Interpretive Data Percent cell count reference ranges are not reported, since discordance with absolute values may lead to misinterpretation of CBC data. Current Interpretive Data was last revised on 2017. Blood 09/06/2024 12:4 1 AM CDT 09/06/2024 12:55 AM CDT Smith Sawyer MD LAB BLOOD ORDERABLES Lila l Result Performing Organization Address [facility]/ZIP Co de Phone Number [facility] Department [place] [address] * (ABNORMAL) CBC with auto differential (09/06/2024 12:41 AM CDT) Pathologist [facility] WBC 6.37 3.80 - 9.90 K/cumm Hgb 8.6(L) 13.0 - 17.5 g/dL [facility] Hct 25.3(L) 38.9 - 50.3 % [facility] Plt 61(L) 150 - 400 K/cumm [facility] MPV 11.6 9.1 - 12.3 fL [facility] RBC 2.35(L) 4.30 - 5.80 M/cumm [facility] MCV 107.7(H) 81.3 - 96.4 fL [facility] MCH 36.6(H) 27.1 - 33.3 pg [facility] MCHC 34.0 32.3 - 35.7 g/dL [facility] RDW CV 18.8(H) 11.1 - 14.9 % [facility] RDW SD 74.0(H) 35.7 - 48.1 fL [facility] NRBC abs 0.00 0.00 - 0.01 K/cumm [facility] Blood 09/06/2024 12:4 1 AM CDT 09/06/2024 12:55 AM CDT Smith Sawyer MD LAB BLOOD ORDERABLES Lila l Result Performing Organization Address [facility]/ZIP Co de Phone Number [facility] Department [place] [address] * (ABNORMAL) Protime-INR (09/06/2024 12:41 AM CDT) Pathologist [facility] PT 26.9(H) 9.7 - 13.0 sec INR 2.45(H) 0.90 - 1.20 [facility] Comment: Interpretive data Oral anticoagulant therapeutic ranges: Venous thromboembolism prophylaxis or treatment: 2.0-3.0 CARDIOLOGY Standard range: 2.0-3.0 High-intensity range: 2.5-3.5 Refer to indication-specific guidelines for appropriate target ranges for prosthetic heart valve replacement. Current interpretive data was last revised on 2019. Blood 09/06/2024 12:4 1 AM CDT 09/06/2024 12:58 AM CDT Zuleima Levine MD LAB BLOOD ORDERABLES Lila l Result [facility] Department [place] [address] * Phosphorus (09/06/2024 12:41 AM CDT) Pathologist [facility] Phosphorus, pl 3.2 2.3 - 4.5 mg/dL Blood 09/06/2024 12:4 1 AM CDT 09/06/2024 12:55 AM CDT Smith Sawyer MD LAB BLOOD ORDERABLES Lila l Result Performing Organization Address [facility] Co de Phone Number [facility] [place] [employer] [place] [address] * (ABNORMAL) Comprehensive metabolic panel (09/06/2024 12:41 AM CDT) Pathologist [facility] Sodium 135 135 - 145 mmol/L Potassium, pl 3.9 3.3 - 4.9 mmol/L [facility] Chloride 97 97 - 110 mmol/L [facility] CO2 33(H) 22 - 32 mmol/L [facility] Anion gap 5 2 - 15 mmol/L [facility] BUN 14 6 - 25 mg/dL [facility] Creatinine 0.83 0.80 - 1.30 mg/dL [facility] Glucose 98 70 - 199 mg/dL [facility] Comment: Interpretive Data Fasting glucose [...] 2022. Calcium 7.7(L) 8.5 - 10.3 mg/dL [facility] Bilirubin, total 0.6 0.1 - 1.2 mg/dL [facility] Protein, pl 5.0(L) 6.5 - 8.5 g/dL [facility] Albumin 2.2(L) 3.5 - 5.0 g/dL [facility] Alk phos 139(H) 40 - 130 Units/L [facility] ALT 20 7 - 55 Units/L [facility] AST 46 10 - 50 Units/L [facility] Blood 09/06/2024 12:4 1 AM CDT 09/06/2024 12:55 AM CDT us Smith Sawyer MD LAB BLOOD ORDERABLES Lila l Result [facility] Department [place] [address] * eGFR (09/05/2024 1:43 AM CDT) eGFR [...] Inclusion of Race in Diagnosing Kidney Disease, KRISTIN 2020). The CKD-EPI equation should not be used for patients with unstable renal function and has not been validated in children and those over 70. Current interpretive data was last reviewed 2021. Blood 09/05/2024 1:43 AM CDT 09/05/2024 2:00 AM CDT us Smith Sawyer MD LAB BLOOD ORDERABLES Lila dawson Result [facility] Department [place] [address] * (ABNORMAL) Differential, auto (09/05/2024 1:43 AM CDT) Neutrophil abs 3.92 1.50 - 6.50 K/cumm Imm gran abs 0.04 0.00 - 0.10 K/cumm [facility] [facility] Lymphocyte abs 0.28(L) 0.80 - 3.30 K/cumm [facility] Monocyte abs 0.58 0.20 - 0.80 K/cumm [facility] Eosinophil abs 0.00 0.00 - 0.50 K/cumm [facility] Basophil abs 0.00 0.00 - 0.10 K/cumm [facility] Neutrophil pct 81.4 % [facility] Comment: Interpretive Data Percent cell count reference ranges are not reported, since discordance with absolute values may lead to misinterpretation of CBC data. Current Interpretive Data was last revised on 2017. Imm gran pct 0.8 % [facility] Comment: Interpretive Data Percent cell count reference ranges are not reported, since discordance with absolute values may lead to misinterpretation of CBC data. Current Interpretive Data was last revised on 2017. Lymphocyte pct 5.8 % [facility] Comment: Interpretive Data Percent cell count reference ranges are not reported, since discordance with absolute values may lead to misinterpretation of CBC data. Current Interpretive Data was last revised on 2017. Monocyte pct 12.0 % [facility] Comment: Interpretive Data Percent cell count reference ranges are not reported, since discordance with absolute values may lead to misinterpretation of CBC data. Current Interpretive Data was last revised on 2017. Eosinophil pct 0.0 % [facility] Comment: Interpretive Data Percent cell count reference ranges are not reported, since discordance with absolute values may lead to misinterpretation of CBC data. Current Interpretive Data was last revised on 2017. Basophil pct 0.0 % [facility] Comment: Interpretive Data Percent cell count reference ranges are not reported, since discordance with absolute values may lead to misinterpretation of CBC data. Current Interpretive Data was last revised on 2017. Blood 09/05/2024 1:43 AM CDT 09/05/2024 2:00 AM CDT Smith Sawyer MD LAB BLOOD ORDERABLES Lila dawson Result [facility] One [facility] Department [place] [address] * (ABNORMAL) CBC with auto differential (09/05/2024 1:43 AM CDT) WBC 4.82 3.80 - 9.90 K/cumm Hgb 9.2(L) 13.0 - 17.5 g/dL [facility] Hct 26.3(L) 38.9 - 50.3 % [facility] Plt 82(L) 150 - 400 K/cumm [facility] MPV 11.8 9.1 - 12.3 fL [facility] RBC 2.47(L) 4.30 - 5.80 M/cumm [facility] MCV 106.5(H) 81.3 - 96.4 fL [facility] MCH 37.2(H) 27.1 - 33.3 pg [facility] MCHC 35.0 32.3 - 35.7 g/dL [facility] RDW CV 19.3(H) 11.1 - 14.9 % [facility] RDW SD 75.1(H) 35.7 - 48.1 fL [facility] NRBC abs 0.00 0.00 - 0.01 K/cumm [facility] Blood 09/05/2024 1:43 AM CDT 09/05/2024 2:00 AM CDT Smith Sawyer MD LAB BLOOD ORDERABLES Lila l Result Performing Organization Address [facility] Co de Phone Number [facility] [employer] [place] [address] * (ABNORMAL) Protime-INR (09/05/2024 1:43 AM CDT) PT 21.5(H) 9.7 - 13.0 sec INR 1.96(H) 0.90 - 1.20 [facility] Comment: Interpretive data Oral anticoagulant therapeutic ranges: Venous thromboembolism prophylaxis or treatment: 2.0-3.0 CARDIOLOGY Standard range: 2.0-3.0 High-intensity range: 2.5-3.5 Refer to indication-specific guidelines for appropriate target ranges for prosthetic heart valve replacement. Current interpretive data was last revised on 2019. Blood 09/05/2024 1:43 AM CDT 09/05/2024 2:05 AM CDT Zuleima Levine MD LAB BLOOD ORDERABLES Lila l Result Performing Organization Address [facility] [place] [address] * Phosphorus (09/05/2024 1:43 AM CDT) Phosphorus, pl 4.1 2.3 - 4.5 mg/dL Blood 09/05/2024 1:43 AM CDT 09/05/2024 2:00 AM CDT Smith Sawyer MD LAB BLOOD ORDERABLES Lila l Result Performing Organization Address [facility] [place] [address] * (ABNORMAL) Comprehensive metabolic panel (09/05/2024 1:43 AM CDT) Sodium 138 135 - 145 mmol/L Potassium, pl 3.6 3.3 - 4.9 mmol/L [facility] Chloride 97 97 - 110 mmol/L [facility] CO2 33(H) 22 - 32 mmol/L [facility] Anion gap 8 2 - 15 mmol/L [facility] BUN 13 6 - 25 mg/dL [facility] Creatinine 0.90 0.80 - 1.30 mg/dL [facility] Glucose 110 70 - 199 mg/dL [facility] Comment: Interpretive Data Fasting glucose [...] 2022. Calcium 8.0(L) 8.5 - 10.3 mg/dL [facility] Bilirubin, total 0.6 0.1 - 1.2 mg/dL [facility] Protein, pl 5.3(L) 6.5 - 8.5 g/dL [facility] Albumin 2.7(L) 3.5 - 5.0 g/dL [facility] Alk phos 135(H) 40 - 130 Units/L [facility] ALT 22 7 - 55 Units/L [facility] AST 44 10 - 50 Units/L [facility] Blood 09/05/2024 1:43 AM CDT 09/05/2024 2:00 AM CDT us Smith Sawyer MD LAB BLOOD ORDERABLES Lila dawson Result [facility] Department [place] [address] * XR Chest 1 View (09/04/2024 11:51 [...] AM CDT Narrative 09/04/2024 11:04 AM CDT [facility] [place] [address] Transthoracic Echocardiographic Report Patient Name: SULMA BAZAN AL : 1950 (74y 1m) Gender: M Study Date: 09/04/2024 08:53:34 Ht(Inch): 70 Wt(Lb): 218.03 BSA: 2.21 In Tube Conversion Technician: mary cross Location: [id number] Order Provider: FRANCISCO SAHU Heart Rate: 60 [...] cm LV Thickness Ratio 1.0 LVOT Peak Ceslo 1.1 m/s [ 0.7 - 1.1 ] [...] LA Length 4C 6.12 cm AI Decel [place] 3.63 m/s2 LA Length 2C 7.21 cm [...] Procedure Note Gilberto Fish MD - 09/04/2024 [facility] [place] [place] [address] Transthoracic Echocardiographic Report Patient Name: SULMA BAZAN AL : 1950 (74y 1m) Gender: M Study Date: 09/04/2024 08:53:34 Ht(Inch): 70 Wt(Lb): 218.03 BSA: 2.21 In Tube Conversion Technician: mary cross Location: [id number] Order Provider:FRANCISCO SAHU Heart Rate: 60 BMI: [...] [ -25.0 - -18.0 ] AI Decel [id number] sec LA Length 4C 6.12 cm AI Decel [place]3.63 m/s2 LA Length 2C 7.21 cm AI [id number] msec LA Volume BP 133.31 ml MV [...] By: Gilberto Fish MD 09/04/2024 11:03:58 CDT [facility] Filippo Sahu MD CV ECHO PROCEDURES Fin [...] MD LAB BLOOD ORDERABLES Lila dawson Result [facility] Department [place] [address] * (ABNORMAL) Differential, auto (09/04/2024 12:25 AM CDT) Neutrophil abs 2.69 1.50 - 6.50 K/cumm Imm gran abs 0.01 0.00 - 0.10 K/cumm [facility] Lymphocyte abs 0.25(L) 0.80 - 3.30 K/cumm [facility] Monocyte abs 0.42 0.20 - 0.80 K/cumm [facility] Eosinophil abs 0.00 0.00 - 0.50 K/cumm [facility] Basophil abs 0.01 0.00 - 0.10 K/cumm [facility] Neutrophil pct 79.6 % [facility] Comment: Interpretive Data Percent cell count reference ranges are not reported, since discordance with absolute values may lead to misinterpretation of CBC data. Current Interpretive Data was last revised on 2017. Imm gran pct 0.3 % [facility] Comment: Interpretive Data Percent cell count reference ranges are not reported, since discordance with absolute values may lead to misinterpretation of CBC data. Current Interpretive Data was last revised on 2017. Lymphocyte pct 7.4 % [facility] Comment: Interpretive Data Percent cell count reference ranges are not reported, since discordance with absolute values may lead to misinterpretation of CBC data. Current Interpretive Data was last revised on 2017. Monocyte pct 12.4 % [facility] Comment: Interpretive Data Percent cell count reference ranges are not reported, since discordance with absolute values may lead to misinterpretation of CBC data. Current Interpretive Data was last revised on 2017. Eosinophil pct 0.0 % [facility] Comment: Interpretive Data Percent cell count reference ranges are not reported, since discordance with absolute values may lead to misinterpretation of CBC data. Current Interpretive Data was last revised on 2017. Basophil pct 0.3 % [facility] Comment: Interpretive Data Percent cell count reference ranges are not reported, since discordance with absolute values may lead to misinterpretation of CBC data. Current Interpretive Data was last revised on 2017. Blood 09/04/2024 12:2 5 AM CDT 09/04/2024 1:15 AM CDT Smith Sawyer MD LAB BLOOD ORDERABLES Lila l Result [facility] Department [place] [address] * (ABNORMAL) Pro B-type natriuretic peptide (09/04/2024 [...] 5 AM CDT 09/04/2024 1:13 AM CDT Francisco Sahu MD LAB BLOOD ORDERABLES F inal Result [facility] Department [place] [address] * (ABNORMAL) CBC with auto differential (09/04/2024 12:25 AM CDT) WBC 3.38(L) 3.80 - 9.90 K/cumm Hgb 8.9(L) 13.0 - 17.5 g/dL [facility] Hct 26.1(L) 38.9 - 50.3 % [facility] Plt 74(L) 150 - 400 K/cumm [facility] MPV 11.9 9.1 - 12.3 fL [facility] RBC 2.45(L) 4.30 - 5.80 M/cumm [facility] MCV 106.5(H) 81.3 - 96.4 fL [facility] MCH 36.3(H) 27.1 - 33.3 pg [facility] MCHC 34.1 32.3 - 35.7 g/dL [facility] RDW CV 19.5(H) 11.1 - 14.9 % [facility] RDW SD 74.8(H) 35.7 - 48.1 fL [facility] NRBC abs 0.00 0.00 - 0.01 K/cumm [facility] Blood 09/04/2024 12:2 5 AM CDT 09/04/2024 1:15 AM CDT Smith Sawyer MD LAB BLOOD ORDERABLES Lila l Result Performing Organization Address [facility] de Phone Number [facility] Department [place] [address] * (ABNORMAL) Protime-INR (09/04/2024 12:25 AM CDT) PT 18.3(H) 9.7 - 13.0 sec INR 1.68(H) 0.90 - 1.20 [facility] Comment: Interpretive data Oral anticoagulant therapeutic [...] ORDERABLES Lila l Result Performing Organization Address [facility] de Phone Number [facility] Department [place] [address] * Phosphorus (09/04/2024 12:25 AM CDT) Phosphorus, pl 3.0 2.3 - 4.5 mg/dL Blood 09/04/2024 12:2 5 AM CDT 09/04/2024 1:13 AM CDT Smith Sawyer MD LAB BLOOD ORDERABLES Lila l Result [facility] Department [place] [address] * (ABNORMAL) Comprehensive metabolic panel (09/04/2024 12:25 AM CDT) Sodium 137 135 - 145 mmol/L Potassium, pl 4.1 3.3 - 4.9 mmol/L [facility] Chloride 101 97 - 110 mmol/L [facility] CO2 29 22 - 32 mmol/L [facility] Anion gap 7 2 - 15 mmol/L [facility] BUN 15 6 - 25 mg/dL [facility] Creatinine 0.80 0.80 - 1.30 mg/dL [facility] Glucose 125 70 - 199 mg/dL [facility] Comment: Interpretive Data Fasting glucose [...] 2022. Calcium 8.2(L) 8.5 - 10.3 mg/dL [facility] Bilirubin, total 0.5 0.1 - 1.2 mg/dL [facility] Protein, pl 5.2(L) 6.5 - 8.5 g/dL [facility] Albumin 2.6(L) 3.5 - 5.0 g/dL [facility] Alk phos 96 40 - 130 Units/L [facility] ALT 20 7 - 55 Units/L [facility] AST 42 10 - 50 Units/L [facility] Blood 09/04/2024 12:2 5 AM CDT 09/04/2024 1:13 AM CDT Smith Sawyer MD LAB BLOOD ORDERABLES Lila eunice Result [facility] Department [place] [address] * US Vein Duplex Lower Extremity Bilateral Complete (09/03/2024 3:52 PM CDT) Anatomical Region Laterality Modality Vascular Bilateral Ultrasound 09/03/2024 3:31 PM CDT Narrative 09/04/2024 4:15 PM CDT [facility] - Department of Vascular Surgery, Vascular Laboratory [address] [place] [id number] Lower Extremity Venous Ultrasound Report Patient Name: SULMA BAZAN AL : 1950 (74y 1m) Study Date: 09/03/2024 3:31:25 PM Gender: M Tech: Location: [id number] Ref Provider: FRANCISCO SAHU Quality: Adequate Order [...] Swelling, Lower Extremity, Bilateral - FINDINGS: Performing In Tube Conversion Technician: Alethea Osorio RVT, RDMS. Bilateral: Venous Doppler [...] Note Michael Torres MD - 09/04/2024 [facility] - Department of Vascular Surgery,Vascular Laboratory [address] [place] [address] Lower Extremity Venous Ultrasound Report Patient Name: SULMA BAZAN AL : 1950 (74y 1m) Study Date: 09/03/2024 3:31:25 PM Gender: M Tech: Location: [id number] Ref Provider: FRANCISCO SAHU Quality: Adequate Order Provider: FRANCISCO SAHU PROCEDURES: Vascular Report: Venous Duplex imaging was performed bilaterally in the lower extremities.The common femoral, femoral, popliteal, posterior tibial, peroneal veins wereevaluated for patency, spontaneity and phasicity with Doppler, compression and augmentationmaneuvers. Great saphenous vein proximal at the junction was evaluated with compressionmaneuvers. INDICATIONS: Swelling, Lower Extremity, Bilateral - FINDINGS: Performing In Tube Conversion Technician: Alethea Osorio RVT, RDMS. Bilateral: Venous Doppler [...] above. Electronically Signed By: Michael Torres MD [facility] 09/04/2024 4:00:58 PM CDT us [place] Fiilppo Sahu MD [facility] US PROCEDURES Lila l Result * XR [...] pneumothorax. Electronically signed by: Trever Mclean M.D. Francisco Sahu MD IM XR PROCEDURES Lila l Result * eGFR [...] MD LAB BLOOD ORDERABLES Lila dawson Result [facility] Department [place] [address] * (ABNORMAL) Differential, auto (09/03/2024 12:59 AM CDT) Pathologist [facility] Neutrophil abs 3.63 1.50 - 6.50 K/cumm Imm gran abs 0.03 0.00 - 0.10 K/cumm [facility] Lymphocyte abs 0.27(L) 0.80 - 3.30 K/cumm [facility] Monocyte abs 0.72 0.20 - 0.80 K/cumm [facility] Eosinophil abs 0.05 0.00 - 0.50 K/cumm [facility] Basophil abs 0.02 0.00 - 0.10 K/cumm [facility] Neutrophil pct 76.9 % [facility] Comment: Interpretive Data Percent cell count reference ranges are not reported, since discordance with absolute values may lead to misinterpretation of CBC data. Current Interpretive Data was last revised on 2017. Imm gran pct 0.6 % [facility] Comment: Interpretive Data Percent cell count reference ranges are not reported, since discordance with absolute values may lead to misinterpretation of CBC data. Current Interpretive Data was last revised on 2017. Lymphocyte pct 5.7 % [facility] Comment: Interpretive Data Percent cell count reference ranges are not reported, since discordance with absolute values may lead to misinterpretation of CBC data. Current Interpretive Data was last revised on 2017. Monocyte pct 15.3 % [facility] Comment: Interpretive Data Percent cell count reference ranges are not reported, since discordance with absolute values may lead to misinterpretation of CBC data. Current Interpretive Data was last revised on 2017. Eosinophil pct 1.1 % [facility] Comment: Interpretive Data Percent cell count reference ranges are not reported, since discordance with absolute values may lead to misinterpretation of CBC data. Current Interpretive Data was last revised on 2017. Basophil pct 0.4 % [facility] Comment: Interpretive Data Percent cell count reference ranges are not reported, since discordance with absolute values may lead to misinterpretation of CBC data. Current Interpretive Data was last revised on 2017. Blood 09/03/2024 12:5 9 AM CDT 09/03/2024 1:14 AM CDT Smith Sawyer MD LAB BLOOD ORDERABLES Lila dawson Result [facility] Department [place] [address] * (ABNORMAL) CBC with auto differential (09/03/2024 12:59 AM CDT) WBC 4.72 3.80 - 9.90 K/cumm Hgb 9.1(L) 13.0 - 17.5 g/dL [facility] Hct 25.8(L) 38.9 - 50.3 % [facility] Plt 82(L) 150 - 400 K/cumm [facility] MPV 11.5 9.1 - 12.3 fL [facility] RBC 2.41(L) 4.30 - 5.80 M/cumm [facility] MCV 107.1(H) 81.3 - 96.4 fL [facility] MCH 37.8(H) 27.1 - 33.3 pg [facility] MCHC 35.3 32.3 - 35.7 g/dL [facility] RDW CV 19.9(H) 11.1 - 14.9 % [facility] RDW SD 76.8(H) 35.7 - 48.1 fL [facility] NRBC abs 0.00 0.00 - 0.01 K/cumm [facility] Blood 09/03/2024 12:5 9 AM CDT 09/03/2024 1:14 AM CDT Smith Sawyer MD LAB BLOOD ORDERABLES Lila dawson Result Performing Organization Address [facility] de Phone Number [facility] [employer] [place] [address] * (ABNORMAL) Protime-INR (09/03/2024 12:59 AM CDT) PT 18.3(H) 9.7 - 13.0 sec INR 1.68(H) 0.90 - 1.20 [facility] Comment: Interpretive data Oral anticoagulant therapeutic [...] ORDERABLES Lila l Result Performing Organization Address [facility] de Phone Number [facility] Department [place] [employer] [place] [address] * Type and screen (09/03/2024 12:59 AM CDT) Minna, indirect Negative ABO Rh A Positive [facility] Blood 09/03/2024 12:5 9 AM CDT 09/03/2024 1:31 AM CDT Narrative [facility] - 09/03/2024 3:30 AM CDT Has the patient had Daratumumab or Isatuximab in the past 6 months?->Unknown Smith Sawyer MD LAB BLOOD BANK TEST ORDER DEMETRIO Final Result Performing Organization Address City/State/[facility] Co de Phone Number [facility] [place] [address] * Uric acid (09/03/2024 12:59 AM CDT) [facility] Uric acid 5.0 3.0 - 8.0 mg/dL Blood 09/03/2024 12:5 9 AM CDT 09/03/2024 1:14 AM CDT Narrative [facility] - 09/03/2024 1:43 AM CDT Saturday and only. Morning draw. . Smith Sawyer MD LAB BLOOD ORDERABLES Lila l Result Performing Organization Address City/[facility] Co de Phone Number [facility] [place] [address] * Phosphorus (09/03/2024 12:59 AM CDT) [facility] Phosphorus, pl 2.7 2.3 - 4.5 mg/dL Blood 09/03/2024 12:5 9 AM CDT 09/03/2024 1:14 AM CDT Smith Sawyer MD LAB BLOOD ORDERABLES Lila l Result [facility] [place] [address] * Magnesium (09/03/2024 12:59 AM CDT) [facility] Magnesium 1.6 1.4 - 2.5 mg/dL Blood 09/03/2024 12:5 9 AM CDT 09/03/2024 1:14 AM CDT Zuleima Levine MD LAB BLOOD ORDERABLES Lila l Result [facility] Department [place] [address] * (ABNORMAL) Lactate dehydrogenase (LD) (09/03/2024 12:59 AM CDT) [facility] Lactate dehydrogenase (LDH) 356(H) 100 - 250 Units/L Blood 09/03/2024 12:5 9 AM CDT 09/03/2024 1:14 AM CDT Narrative [facility] - 09/03/2024 1:43 AM CDT Saturday and only. Morning draw. Smith Sawyer MD LAB BLOOD ORDERABLES Lila l Result Performing Organization Address City/[facility] Co de Phone Number [facility] Department [place] [address] * (ABNORMAL) Comprehensive metabolic panel (09/03/2024 12:59 AM CDT) [facility] Sodium 133(L) 135 - 145 mmol/L Potassium, pl 3.1(L) 3.3 - 4.9 mmol/L [facility] Chloride 99 97 - 110 mmol/L [facility] CO2 28 22 - 32 mmol/L [facility] Anion gap 6 2 - 15 mmol/L [facility] BUN 15 6 - 25 mg/dL [facility] Creatinine 0.82 0.80 - 1.30 mg/dL [facility] Glucose 121 70 - 199 mg/dL [facility] Comment: Interpretive Data Fasting glucose [...] Calcium 7.9(L) 8.5 - 10.3 mg/dL [facility] Bilirubin, total 0.7 0.1 - 1.2 mg/dL [facility] Protein, pl 4.9(L) 6.5 - 8.5 g/dL [facility] Albumin 2.6(L) 3.5 - 5.0 g/dL [facility] Alk phos 86 40 - 130 Units/L [facility] ALT 22 7 - 55 Units/L [facility] AST 45 10 - 50 Units/L [facility] Blood 09/03/2024 12:5 9 AM CDT 09/03/2024 1:14 AM CDT us Smith Sawyer MD LAB BLOOD ORDERABLES Lila dawson Result [facility] Department [place] [address] * eGFR (09/02/2024 12:41 AM CDT) eGFR [...] MD LAB BLOOD ORDERABLES Lila dawson Result [facility] Department [place] [address] * (ABNORMAL) Differential, auto (09/02/2024 12:41 AM CDT) Neutrophil abs 4.18 1.50 - 6.50 K/cumm Imm gran abs 0.05 0.00 - 0.10 K/cumm [facility] Lymphocyte abs 0.41(L) 0.80 - 3.30 K/cumm [facility] Monocyte abs 0.83(H) 0.20 - 0.80 K/cumm [facility] [facility] Eosinophil abs 0.08 0.00 - 0.50 K/cumm [facility] Basophil abs 0.03 0.00 - 0.10 K/cumm [facility] Neutrophil pct 75.0 % [facility] Comment: Interpretive Data Percent cell count reference ranges are not reported, since discordance with absolute values may lead to misinterpretation of CBC data. Current Interpretive Data was last revised on 2017. Imm gran pct 0.9 % [facility] Comment: Interpretive Data Percent cell count reference ranges are not reported, since discordance with absolute values may lead to misinterpretation of CBC data. Current Interpretive Data was last revised on 2017. Lymphocyte pct 7.3 % [facility] Comment: Interpretive Data Percent cell count reference ranges are not reported, since discordance with absolute values may lead to misinterpretation of CBC data. Current Interpretive Data was last revised on 2017. Monocyte pct 14.9 % [facility] Comment: Interpretive Data Percent cell count reference ranges are not reported, since discordance with absolute values may lead to misinterpretation of CBC data. Current Interpretive Data was last revised on 2017. Eosinophil pct 1.4 % [facility] Comment: Interpretive Data Percent cell count reference ranges are not reported, since discordance with absolute values may lead to misinterpretation of CBC data. Current Interpretive Data was last revised on 2017. Basophil pct 0.5 % [facility] Comment: Interpretive Data Percent cell count reference ranges are not reported, since discordance with absolute values may lead to misinterpretation of CBC data. Current Interpretive Data was last revised on 2017. Blood 09/02/2024 12:4 1 AM CDT 09/02/2024 1:02 AM CDT Smith Sawyer MD LAB BLOOD ORDERABLES Lila dawson Result [facility] One [facility] Department [place] [address] * (ABNORMAL) CBC with auto differential (09/02/2024 12:41 AM CDT) WBC 5.58 3.80 - 9.90 K/cumm Hgb 9.9(L) 13.0 - 17.5 g/dL [facility] Hct 28.6(L) 38.9 - 50.3 % [facility] Plt 111(L) 150 - 400 K/cumm [facility] MPV 11.2 9.1 - 12.3 fL [facility] RBC 2.67(L) 4.30 - 5.80 M/cumm [facility] MCV 107.1(H) 81.3 - 96.4 fL [facility] MCH 37.1(H) 27.1 - 33.3 pg [facility] MCHC 34.6 32.3 - 35.7 g/dL [facility] RDW CV 20.9(H) 11.1 - 14.9 % [facility] RDW SD 80.1(H) 35.7 - 48.1 fL [facility] NRBC abs 0.00 0.00 - 0.01 K/cumm [facility] Blood 09/02/2024 12:4 1 AM CDT 09/02/2024 1:02 AM CDT Smith Sawyer MD LAB BLOOD ORDERABLES Lila l Result Performing Organization Address [facility] Co de Phone Number [facility] [place] [employer] [place] [address] * (ABNORMAL) Protime-INR (09/02/2024 12:41 AM CDT) PT 18.5(H) 9.7 - 13.0 sec INR 1.69(H) 0.90 - 1.20 [facility] Comment: Interpretive data Oral anticoagulant therapeutic [...] ORDERABLES Lila l Result Performing Organization Address [facility] de Phone Number [facility] [employer] [place] [address] * Phosphorus (09/02/2024 12:41 AM CDT) Phosphorus, pl 2.4 2.3 - 4.5 mg/dL Blood 09/02/2024 12:4 1 AM CDT 09/02/2024 1:02 AM CDT Smith Sawyer MD LAB BLOOD ORDERABLES Lila l Result Performing Organization Address City/[facility] Co de Phone Number [facility] [employer] [place] [address] * Magnesium (09/02/2024 12:41 AM CDT) Magnesium 2.0 1.4 - 2.5 mg/dL Blood 09/02/2024 12:4 1 AM CDT 09/02/2024 1:02 AM CDT Zuleima Levine MD LAB BLOOD ORDERABLES Lila eunice Result [facility] One [facility] [place] [address] * (ABNORMAL) Comprehensive metabolic panel (09/02/2024 12:41 AM CDT) Pathologist [facility] Sodium 140 135 - 145 mmol/L Potassium, pl 3.7 3.3 - 4.9 mmol/L [facility] Chloride 105 97 - 110 mmol/L [facility] CO2 23 22 - 32 mmol/L [facility] Anion gap 12 2 - 15 mmol/L [facility] BUN 14 6 - 25 mg/dL [facility] Creatinine 0.83 0.80 - 1.30 mg/dL [facility] Glucose 106 70 - 199 mg/dL [facility] Comment: Interpretive Data Fasting glucose [...] 2022. Calcium 7.8(L) 8.5 - 10.3 mg/dL [facility] Bilirubin, total 0.6 0.1 - 1.2 mg/dL [facility] Protein, pl 5.1(L) 6.5 - 8.5 g/dL [facility] Albumin 2.9(L) 3.5 - 5.0 g/dL [facility] Alk phos 92 40 - 130 Units/L [facility] ALT 23 7 - 55 Units/L [facility] AST 46 10 - 50 Units/L [facility] Blood 09/02/2024 12:4 1 AM CDT 09/02/2024 1:02 AM CDT us Smith Sawyer MD LAB BLOOD ORDERABLES Lila eunice Result [facility] Department [place] [address] * US Vein Duplex Upper Extremity Left Limited, Unilateral (09/01/2024 2:27 PM CDT) Anatomical Region Laterality Modality Vascular Left Ultrasound 09/01/2024 1:18 PM CDT Narrative 09/01/2024 6:11 PM CDT [facility] - Department of Vascular Surgery, Vascular Laboratory [address] [place] [address] Upper Extremity Venous Ultrasound Report Patient Name: SULMA BAZAN : 1950 (74y 1m) Study Date: 09/01/2024 1:18:26 PM Gender: M Tech: Location: [id number] Ref Provider: ZULEIMA LEVINE Quality: Adequate Order Provider: ZULEIMA LEVINE PROCEDURES: Vascular Report: Venous Duplex imaging was performed in the left upper extremity. The internal jugular, subclavian and axillary veins were evaluated for patency, spontaneity and phasicity with Doppler, compression and augmentation maneuvers. The brachial, basilic and cephalic veins were also evaluated with compression maneuvers. INDICATIONS: Hypoxemia. FINDINGS: Performing In Tube Conversion Technician: Mei Linn RVT. Left: Venous Doppler signals [...] Procedure Note Maikel Gupta MD - 09/01/2024 [employer] - Department of Vascular Surgery,Vascular Laboratory [address] [place] [address] Upper Extremity Venous Ultrasound Report Patient Name: SULMA BAZAN : 1950 (74y 1m) Study Date: 09/01/2024 1:18:26 PM Gender: M Tech: Location: [id number] Ref Provider: ZULEIMA LEVINE Quality: Adequate Order Provider: ZULEIMA LEVINE PROCEDURES: Vascular Report: Venous Duplex imaging was performed in the left upper extremity. Theinternal jugular, subclavian and axillary veins were evaluated for patency, spontaneity andphasicity with Doppler, compression and augmentation maneuvers. The brachial, basilic andcephalic veins were also evaluated with compression maneuvers. INDICATIONS: Hypoxemia. FINDINGS: Performing In Tube Conversion Technician: Mei Linn RVT. Left: Venous Doppler signals [...] Gupta MD FACS 09/01/2024 5:21:16 PM CDT us Zuleima Levine MD [facility] US PROCEDURES Final R esult * eGFR [...] MD LAB BLOOD ORDERABLES Lila l Result [facility] Department [place] [address] * (ABNORMAL) Differential, auto (09/01/2024 3:21 AM CDT) Neutrophil abs 3.01 1.50 - 6.50 K/cumm Imm gran abs 0.04 0.00 - 0.10 K/cumm [facility] Lymphocyte abs 0.35(L) 0.80 - 3.30 K/cumm [facility] Monocyte abs 0.67 0.20 - 0.80 K/cumm [facility] Eosinophil abs 0.06 0.00 - 0.50 K/cumm [facility] Basophil abs 0.01 0.00 - 0.10 K/cumm [facility] Neutrophil pct 72.7 % [facility] Comment: Interpretive Data Percent cell count reference ranges are not reported, since discordance with absolute values may lead to misinterpretation of CBC data. Current Interpretive Data was last revised on 2017. Imm gran pct 1.0 % [facility] Comment: Interpretive Data Percent cell count reference ranges are not reported, since discordance with absolute values may lead to misinterpretation of CBC data. Current Interpretive Data was last revised on 2017. Lymphocyte pct 8.5 % [facility] Comment: Interpretive Data Percent cell count reference ranges are not reported, since discordance with absolute values may lead to misinterpretation of CBC data. Current Interpretive Data was last revised on 2017. Monocyte pct 16.2 % [facility] Comment: Interpretive Data Percent cell count reference ranges are not reported, since discordance with absolute values may lead to misinterpretation of CBC data. Current Interpretive Data was last revised on 2017. Eosinophil pct 1.4 % [facility] Comment: Interpretive Data Percent cell count reference ranges are not reported, since discordance with absolute values may lead to misinterpretation of CBC data. Current Interpretive Data was last revised on 2017. Basophil pct 0.2 % [facility] Comment: Interpretive Data Percent cell count reference ranges are not reported, since discordance with absolute values may lead to misinterpretation of CBC data. Current Interpretive Data was last revised on 2017. Blood 09/01/2024 3:21 AM CDT 09/01/2024 3:38 AM CDT us Smith Sawyer MD LAB BLOOD ORDERABLES Lila dawson Result [facility] Department [place] [address] * (ABNORMAL) CBC with auto differential (09/01/2024 3:21 AM CDT) WBC 4.14 3.80 - 9.90 K/cumm Hgb 9.0(L) 13.0 - 17.5 g/dL [facility] Hct 26.2(L) 38.9 - 50.3 % [facility] Plt 86(L) 150 - 400 K/cumm [facility] MPV 11.2 9.1 - 12.3 fL [facility] RBC 2.45(L) 4.30 - 5.80 M/cumm [facility] MCV 106.9(H) 81.3 - 96.4 fL [facility] MCH 36.7(H) 27.1 - 33.3 pg [facility] MCHC 34.4 32.3 - 35.7 g/dL [facility] RDW CV 21.0(H) 11.1 - 14.9 % [facility] RDW SD 80.0(H) 35.7 - 48.1 fL [facility] NRBC abs 0.00 0.00 - 0.01 K/cumm [facility] Blood 09/01/2024 3:21 AM CDT 09/01/2024 3:38 AM CDT Smith Sawyer MD LAB BLOOD ORDERABLES Lila dawson Result Performing Organization Address City/State/[facility] Co de Phone Number [facility] Department [place] [address] * (ABNORMAL) Protime-INR (09/01/2024 3:21 AM CDT) Pathologist [facility] PT 20.0(H) 9.7 - 13.0 sec INR 1.83(H) 0.90 - 1.20 [facility] Comment: Interpretive data Oral anticoagulant therapeutic ranges: Venous thromboembolism prophylaxis or treatment: 2.0-3.0 CARDIOLOGY Standard range: 2.0-3.0 High-intensity range: 2.5-3.5 Refer to indication-specific guidelines for appropriate target ranges for prosthetic heart valve replacement. Current interpretive data was last revised on 2019. Blood 09/01/2024 3:21 AM CDT 09/01/2024 3:36 AM CDT Zuleima Levine MD LAB BLOOD ORDERABLES Lila l Result Performing Organization Address City/[facility] Co de Phone Number [facility] [place] [address] * Phosphorus (09/01/2024 3:21 AM CDT) [facility] Phosphorus, pl 2.8 2.3 - 4.5 mg/dL Blood 09/01/2024 3:21 AM CDT 09/01/2024 3:37 AM CDT Smith Sawyer MD LAB BLOOD ORDERABLES Lila l Result Performing Organization Address [facility] de Phone Number [facility] Department [place] [address] * Magnesium (09/01/2024 3:21 AM CDT) [facility] Magnesium 1.5 1.4 - 2.5 mg/dL Blood 09/01/2024 3:21 AM CDT 09/01/2024 3:37 AM CDT Zuleima Levine MD LAB BLOOD ORDERABLES Lila l Result Performing Organization Address [facility] Co de Phone Number [facility] [employer] [place] [address] * (ABNORMAL) Comprehensive metabolic panel (09/01/2024 3:21 AM CDT) [facility] Sodium 143 135 - 145 mmol/L Potassium, pl 3.2(L) 3.3 - 4.9 mmol/L [facility] Chloride 108 97 - 110 mmol/L [facility] CO2 28 22 - 32 mmol/L [facility] Anion gap 7 2 - 15 mmol/L [facility] BUN 15 6 - 25 mg/dL [facility] Creatinine 0.95 0.80 - 1.30 mg/dL [facility] Glucose 123 70 - 199 mg/dL [facility] Comment: Interpretive Data Fasting glucose [...] 2022. Calcium 7.8(L) 8.5 - 10.3 mg/dL [facility] Bilirubin, total 0.6 0.1 - 1.2 mg/dL [facility] Protein, pl 4.7(L) 6.5 - 8.5 g/dL [facility] Albumin 2.3(L) 3.5 - 5.0 g/dL [facility] Alk phos 84 40 - 130 Units/L [facility] ALT 21 7 - 55 Units/L [facility] AST 44 10 - 50 Units/L [facility] Blood 09/01/2024 3:21 AM CDT 09/01/2024 3:37 AM CDT Smith Sawyer MD LAB BLOOD ORDERABLES Lila l Result Performing Organization Address City/State/[facility] Co de Phone Number [facility] Department [place] [address] * XR Chest 1 View (08/31/2024 10:37 [...] Biopsy) 08/31/2024 11:47 AM CDT Narrative PATHOLOGY [facility] - 09/02/2024 10:06 AM CDT EPIC results best viewed via link to PDF [facility] Mariama Martínez Laboratory of Surgical Pathology [facility] [place] [address] Note to Patients: This report may contain [...] Gender: Marlen : 1950 (Age: 74) Address: [address] [place] [address] Hospital #: [id number] Taken:08/31/2024 Received:08/31/2024 Reported: 09/02/2024 Patient Type: [facility] Inpatient Service: Oncology Location: [place] [address] Physician(s): MD Gilberto Melgar M.D. Shivani Shah [...] Yamil DA. 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 Am J Surg Pathol. 2022Feb 03;47(10):8840-3728. doi: 10.1097/PAS.[id number]. Epub 2022Nov 29. PMID: [id number]. Shahla Lam D.O. History: The patient is [...] Surgical Pathology and Flow Cytometry Departments at [facility] as part of an ongoing director of quality program and in compliance with federally mandated [...] Surgical Pathology and Flow Cytometry Departments of [facility]. It has not been cleared or approved by the U. S. Food and Drug Administration. IMAGES AND SCANNED DOCUMENTS, IF INCLUDED, ONLY VIEWABLE IN PDF VERSION OF REPORT us Abram Smith MD LAB PATHOLOGY ORDERABLES Final Result PATHOLOGY [facility] 3rd Floor [place], [place] [phone] * Flexible Sigmoidoscopy (08/31/2024 11:26 AM CDT) Anatomical Region Laterality Modality Other Narrative Procedure Note Abram Smith MD - 08/31/2024 11:26 AM CDT [facility] Patient Name: Sulma Bazan Procedure Date: 08/31/2024 11:26 AM Date of : 1950 Admit Type: Inpatient Age: 74 Gender: Male Attending MD: Abram Smith M.D. Room: [facility] ENDOSCOPY Note Status: Finalized Procedure: Flexible [...] were discussed and informed consentwas obtained. The [id number] Endoscope was introduced through the anus [...] 0 Note Initiated On: 08/31/2024 11:26 AM Abram Smith MD ENDOSCOPY PROCEDURES Final Res ult * Potassium, whole blood (08/31/2024 6:44 AM CDT) Potassium, bld 4.0 3.3 - 4.9 mmol/L Blood 08/31/2024 6:44 AM CDT 08/31/2024 6:51 AM CDT Zuleima Levine MD LAB BLOOD ORDERABLES Lila l Result [facility] Department [place] [address] * eGFR (08/31/2024 2:34 AM CDT) eGFR [...] MD LAB BLOOD ORDERABLES Lila dawson Result [facility] Department [place] [address] * (ABNORMAL) Differential, auto (08/31/2024 2:34 AM CDT) Pathologist [facility] Neutrophil abs 3.45 1.50 - 6.50 K/cumm Imm gran abs 0.05 0.00 - 0.10 K/cumm [facility] Lymphocyte abs 0.39(L) 0.80 - 3.30 K/cumm [facility] Monocyte abs 0.72 0.20 - 0.80 K/cumm [facility] Eosinophil abs 0.07 0.00 - 0.50 K/cumm [facility] Basophil abs 0.01 0.00 - 0.10 K/cumm [facility] Neutrophil pct 73.5 % [facility] Comment: Interpretive Data Percent cell count reference ranges are not reported, since discordance with absolute values may lead to misinterpretation of CBC data. Current Interpretive Data was last revised on 2017. Imm gran pct 1.1 % [facility] Comment: Interpretive Data Percent cell count reference ranges are not reported, since discordance with absolute values may lead to misinterpretation of CBC data. Current Interpretive Data was last revised on 2017. Lymphocyte pct 8.3 % [facility] Comment: Interpretive Data Percent cell count reference ranges are not reported, since discordance with absolute values may lead to misinterpretation of CBC data. Current Interpretive Data was last revised on 2017. Monocyte pct 15.4 % [facility] Comment: Interpretive Data Percent cell count reference ranges are not reported, since discordance with absolute values may lead to misinterpretation of CBC data. Current Interpretive Data was last revised on 2017. Eosinophil pct 1.5 % [facility] Comment: Interpretive Data Percent cell count reference ranges are not reported, since discordance with absolute values may lead to misinterpretation of CBC data. Current Interpretive Data was last revised on 2017. Basophil pct 0.2 % [facility] Comment: Interpretive Data Percent cell count reference ranges are not reported, since discordance with absolute values may lead to misinterpretation of CBC data. Current Interpretive Data was last revised on 2017. Blood 08/31/2024 2:34 AM CDT 08/31/2024 3:12 AM CDT Smith Sawyer MD LAB BLOOD ORDERABLES Lila l Result [facility] Department [place] [address] * (ABNORMAL) CBC with auto differential (08/31/2024 2:34 AM CDT) WBC 4.69 3.80 - 9.90 K/cumm Hgb 8.9(L) 13.0 - 17.5 g/dL [facility] Hct 25.5(L) 38.9 - 50.3 % [facility] Plt 90(L) 150 - 400 K/cumm [facility] MPV 10.6 9.1 - 12.3 fL [facility] RBC 2.38(L) 4.30 - 5.80 M/cumm [facility] MCV 107.1(H) 81.3 - 96.4 fL [facility] MCH 37.4(H) 27.1 - 33.3 pg [facility] MCHC 34.9 32.3 - 35.7 g/dL [facility] RDW CV 21.1(H) 11.1 - 14.9 % [facility] RDW SD 79.6(H) 35.7 - 48.1 fL [facility] NRBC abs 0.00 0.00 - 0.01 K/cumm [facility] Blood 08/31/2024 2:34 AM CDT 08/31/2024 3:12 AM CDT Smith Sawyer MD LAB BLOOD ORDERABLES Lila l Result Performing Organization Address [facility] de Phone Number [facility] [employer] [place] [address] * aPTT (08/31/2024 2:34 AM CDT) aPTT [...] ORDERABLES Lila l Result Performing Organization Address [facility] de Phone Number [facility] Department [place] [employer] [place] [address] * (ABNORMAL) Protime-INR (08/31/2024 2:34 AM CDT) PT 18.8(H) 9.7 - 13.0 sec INR 1.72(H) 0.90 - 1.20 [facility] Comment: Interpretive data Oral anticoagulant therapeutic ranges: Venous thromboembolism prophylaxis or treatment: 2.0-3.0 CARDIOLOGY Standard range: 2.0-3.0 High-intensity range: 2.5-3.5 Refer to indication-specific guidelines for appropriate target ranges for prosthetic heart valve replacement. Current interpretive data was last revised on 2019. Blood 08/31/2024 2:34 AM CDT 08/31/2024 3:04 AM CDT Zuleima Levine MD LAB BLOOD ORDERABLES Lila l Result Performing Organization Address [facility] Co de Phone Number [facility] [place] [address] * Type and screen (08/31/2024 2:34 AM CDT) ABO Rh A Positive Minna, indirect Negative [facility] Blood 08/31/2024 2:34 AM CDT 08/31/2024 3:06 AM CDT Narrative [facility] - 08/31/2024 7:31 AM CDT Has the patient had Daratumumab or Isatuximab in the past 6 months?->Unknown Smith Sawyer MD LAB BLOOD BANK TEST ORDER DEMETRIO Final Result Performing Organization Address [facility] de Phone Number [facility] [place] [address] * Uric acid (08/31/2024 2:34 AM CDT) Pathologist [facility] Uric acid 6.6 3.0 - 8.0 mg/dL Blood 08/31/2024 2:34 AM CDT 08/31/2024 3:12 AM CDT Narrative [facility] - 08/31/2024 3:42 AM CDT Saturday and only. Morning draw. . Smith Sawyer MD LAB BLOOD ORDERABLES Lila l Result Performing Organization Address [facility] Co de Phone Number [facility] [place] [address] * (ABNORMAL) Phosphorus (08/31/2024 2:34 AM CDT) Phosphorus, pl 1.9(L) 2.3 - 4.5 mg/dL Blood 08/31/2024 2:34 AM CDT 08/31/2024 3:12 AM CDT Smith Sawyer MD LAB BLOOD ORDERABLES Lila l Result Performing Organization Address City/[facility]/ZIP Co de Phone Number [facility] [place] [address] * (ABNORMAL) Lactate dehydrogenase (LD) (08/31/2024 2:34 AM CDT) Pathologist [facility] Lactate dehydrogenase (LDH) 301(H) 100 - 250 Units/L Blood 08/31/2024 2:34 AM CDT 08/31/2024 3:12 AM CDT Narrative [facility] - 08/31/2024 3:42 AM CDT Saturday and only. Morning draw. Smith Sawyer MD LAB BLOOD ORDERABLES Lila l Result Performing Organization Address City/[facility] [place] [address] * (ABNORMAL) Comprehensive metabolic panel (08/31/2024 2:34 AM CDT) [facility] Sodium 139 135 - 145 mmol/L Potassium, pl 3.2(L) 3.3 - 4.9 mmol/L [facility] Chloride 107 97 - 110 mmol/L [facility] CO2 25 22 - 32 mmol/L [facility] Anion gap 7 2 - 15 mmol/L [facility] BUN 20 6 - 25 mg/dL [facility] Creatinine 0.92 0.80 - 1.30 mg/dL [facility] Glucose 113 70 - 199 mg/dL [facility] Comment: Interpretive Data Fasting glucose [...] 2022. Calcium 8.0(L) 8.5 - 10.3 mg/dL [facility] Bilirubin, total 0.5 0.1 - 1.2 mg/dL [facility] Protein, pl 4.8(L) 6.5 - 8.5 g/dL [facility] Albumin 2.6(L) 3.5 - 5.0 g/dL [facility] Alk phos 82 40 - 130 Units/L [facility] ALT 23 7 - 55 Units/L [facility] AST 48 10 - 50 Units/L [facility] Blood 08/31/2024 2:34 AM CDT 08/31/2024 3:12 AM CDT us Smith Sawyer MD LAB BLOOD ORDERABLES Lila dawson Result [facility] Department [place] [address] * (ABNORMAL) Protime-INR (08/30/2024 4:30 AM CDT) PT 20.1(H) 9.7 - 13.0 sec INR 1.84(H) 0.90 - 1.20 [facility] Comment: Interpretive data Oral anticoagulant therapeutic ranges: Venous thromboembolism prophylaxis or treatment: 2.0-3.0 CARDIOLOGY Standard range: 2.0-3.0 High-intensity range: 2.5-3.5 Refer to indication-specific guidelines for appropriate target ranges for prosthetic heart valve replacement. Current interpretive data was last revised on 2019. Blood 08/30/2024 4:30 AM CDT 08/30/2024 2:53 AM CDT Zuleima Levine MD LAB BLOOD ORDERABLES Lila l Result Performing Organization Address City/[facility]/ZIP Co de Phone Number [facility] [place] [address] * eGFR (08/30/2024 2:34 AM CDT) Pathologist [facility] eGFR 78 >=60 mL/min/1. 73 m2 Comment: [...] ORDERABLES Lila l Result Performing Organization Address [facility] Co de Phone Number [facility] [place] [address] * (ABNORMAL) Differential, auto (08/30/2024 2:34 AM CDT) Pathologist [facility] Neutrophil abs 3.58 1.50 - 6.50 K/cumm Imm gran abs 0.06 0.00 - 0.10 K/cumm [facility] Lymphocyte abs 0.20(L) 0.80 - 3.30 K/cumm [facility] Monocyte abs 0.72 0.20 - 0.80 K/cumm [facility] Eosinophil abs 0.08 0.00 - 0.50 K/cumm [facility] Basophil abs 0.01 0.00 - 0.10 K/cumm [facility] Neutrophil pct 77.0 % [facility] Comment: Interpretive Data Percent cell count reference ranges are not reported, since discordance with absolute values may lead to misinterpretation of CBC data. Current Interpretive Data was last revised on 2017. Imm gran pct 1.3 % [facility] Comment: Interpretive Data Percent cell count reference ranges are not reported, since discordance with absolute values may lead to misinterpretation of CBC data. Current Interpretive Data was last revised on 2017. Lymphocyte pct 4.3 % [facility] Comment: Interpretive Data Percent cell count reference ranges are not reported, since discordance with absolute values may lead to misinterpretation of CBC data. Current Interpretive Data was last revised on 2017. Monocyte pct 15.5 % [facility] Comment: Interpretive Data Percent cell count reference ranges are not reported, since discordance with absolute values may lead to misinterpretation of CBC data. Current Interpretive Data was last revised on 2017. Eosinophil pct 1.7 % [facility] Comment: Interpretive Data Percent cell count reference ranges are not reported, since discordance with absolute values may lead to misinterpretation of CBC data. Current Interpretive Data was last revised on 2017. Basophil pct 0.2 % [facility] Comment: Interpretive Data Percent cell count reference ranges are not reported, since discordance with absolute values may lead to misinterpretation of CBC data. Current Interpretive Data was last revised on 2017. Blood 08/30/2024 2:34 AM CDT 08/30/2024 2:56 AM CDT us Smith Sawyer MD LAB BLOOD ORDERABLES Lila dawson Result [facility] Department [place] [address] * (ABNORMAL) CBC with auto differential (08/30/2024 2:34 AM CDT) WBC 4.65 3.80 - 9.90 K/cumm Hgb 8.5(L) 13.0 - 17.5 g/dL [facility] Hct 24.7(L) 38.9 - 50.3 % [facility] Plt 86(L) 150 - 400 K/cumm [facility] MPV 10.4 9.1 - 12.3 fL [facility] RBC 2.28(L) 4.30 - 5.80 M/cumm [facility] MCV 108.3(H) 81.3 - 96.4 fL [facility] MCH 37.3(H) 27.1 - 33.3 pg [facility] MCHC 34.4 32.3 - 35.7 g/dL [facility] RDW CV 21.0(H) 11.1 - 14.9 % [facility] RDW SD 81.8(H) 35.7 - 48.1 fL [facility] NRBC abs 0.02(H) 0.00 - 0.01 K/cumm [facility] Blood 08/30/2024 2:34 AM CDT 08/30/2024 2:56 AM CDT Smith Sawyer MD LAB BLOOD ORDERABLES Lila l Result Performing Organization Address City/[facility] Co de Phone Number [facility] Department [place] [employer] [place] [address] * Phosphorus (08/30/2024 2:34 AM CDT) Pathologist [facility] Phosphorus, pl 2.7 2.3 - 4.5 mg/dL Blood 08/30/2024 2:34 AM CDT 08/30/2024 2:56 AM CDT Smith Sawyer MD LAB BLOOD ORDERABLES Lila l Result Performing Organization Address City/State/[facility] Co de Phone Number [facility] [place] [address] * Magnesium (08/30/2024 2:34 AM CDT) Magnesium 1.8 1.4 - 2.5 mg/dL Blood 08/30/2024 2:34 AM CDT 08/30/2024 2:56 AM CDT Zuleima Levine MD LAB BLOOD ORDERABLES Lila l Result [facility] Department [place] [address] * (ABNORMAL) Comprehensive metabolic panel (08/30/2024 2:34 AM CDT) Pathologist [facility] Sodium 141 135 - 145 mmol/L Potassium, pl 3.4 3.3 - 4.9 mmol/L [facility] Chloride 109 97 - 110 mmol/L [facility] CO2 23 22 - 32 mmol/L [facility] Anion gap 9 2 - 15 mmol/L [facility] BUN 24 6 - 25 mg/dL [facility] Creatinine 1.00 0.80 - 1.30 mg/dL [facility] Glucose 105 70 - 199 mg/dL [facility] Comment: Interpretive Data Fasting glucose [...] 2022. Calcium 8.0(L) 8.5 - 10.3 mg/dL [facility] Bilirubin, total 0.4 0.1 - 1.2 mg/dL [facility] Protein, pl 4.8(L) 6.5 - 8.5 g/dL [facility] Albumin 3.1(L) 3.5 - 5.0 g/dL [facility] Alk phos 69 40 - 130 Units/L [facility] ALT 25 7 - 55 Units/L [facility] AST 47 10 - 50 Units/L [facility] Blood 08/30/2024 2:34 AM CDT 08/30/2024 2:56 AM CDT Smith Sawyer MD LAB BLOOD ORDERABLES Lila l Result Performing Organization Address City/[facility]/ZIP Co de Phone Number [facility] Department [place] [address] * eGFR (08/29/2024 1:30 AM CDT) eGFR [...] MD LAB BLOOD ORDERABLES Lila l Result [facility] [place] [address] * (ABNORMAL) Differential, auto (08/29/2024 1:30 AM CDT) Neutrophil abs 3.07 1.50 - 6.50 K/cumm Imm gran abs 0.07 0.00 - 0.10 K/cumm [facility] Lymphocyte abs 0.29(L) 0.80 - 3.30 K/cumm [facility] Monocyte abs 0.91(H) 0.20 - 0.80 K/cumm [facility] Eosinophil abs 0.05 0.00 - 0.50 K/cumm [facility] Basophil abs 0.02 0.00 - 0.10 K/cumm [facility] Neutrophil pct 69.6 % [facility] Comment: Interpretive Data Percent cell count reference ranges are not reported, since discordance with absolute values may lead to misinterpretation of CBC data. Current Interpretive Data was last revised on 2017. Imm gran pct 1.6 % [facility] Comment: Interpretive Data Percent cell count reference ranges are not reported, since discordance with absolute values may lead to misinterpretation of CBC data. Current Interpretive Data was last revised on 2017. Lymphocyte pct 6.6 % [facility] Comment: Interpretive Data Percent cell count reference ranges are not reported, since discordance with absolute values may lead to misinterpretation of CBC data. Current Interpretive Data was last revised on 2017. Monocyte pct 20.6 % [facility] Comment: Interpretive Data Percent cell count reference ranges are not reported, since discordance with absolute values may lead to misinterpretation of CBC data. Current Interpretive Data was last revised on 2017. Eosinophil pct 1.1 % [facility] Comment: Interpretive Data Percent cell count reference ranges are not reported, since discordance with absolute values may lead to misinterpretation of CBC data. Current Interpretive Data was last revised on 2017. Basophil pct 0.5 % [facility] Comment: Interpretive Data Percent cell count reference ranges are not reported, since discordance with absolute values may lead to misinterpretation of CBC data. Current Interpretive Data was last revised on 2017. Blood 08/29/2024 1:30 AM CDT 08/29/2024 1:42 AM CDT Smith Sawyer MD LAB BLOOD ORDERABLES Lila l Result Performing Organization Address [facility] Co de Phone Number [facility] Department [place] [address] * (ABNORMAL) CBC with auto differential (08/29/2024 1:30 AM CDT) WBC 4.41 3.80 - 9.90 K/cumm Hgb 8.9(L) 13.0 - 17.5 g/dL [facility] Hct 26.7(L) 38.9 - 50.3 % [facility] Plt 112(L) 150 - 400 K/cumm [facility] MPV 10.4 9.1 - 12.3 fL [facility] RBC 2.45(L) 4.30 - 5.80 M/cumm [facility] MCV 109.0(H) 81.3 - 96.4 fL [facility] MCH 36.3(H) 27.1 - 33.3 pg [facility] MCHC 33.3 32.3 - 35.7 g/dL [facility] RDW CV 21.4(H) 11.1 - 14.9 % [facility] RDW SD 83.0(H) 35.7 - 48.1 fL [facility] NRBC abs 0.00 0.00 - 0.01 K/cumm [facility] Blood 08/29/2024 1:30 AM CDT 08/29/2024 1:42 AM CDT Smith Sawyer MD LAB BLOOD ORDERABLES Lila l Result Performing Organization Address [facility] Co de Phone Number [facility] Department [place] [address] * (ABNORMAL) Protime-INR (08/29/2024 1:30 AM CDT) PT 28.4(H) 9.7 - 13.0 sec INR 2.58(H) 0.90 - 1.20 [facility] Comment: Interpretive data Oral anticoagulant therapeutic ranges: Venous thromboembolism prophylaxis or treatment: 2.0-3.0 CARDIOLOGY Standard range: 2.0-3.0 High-intensity range: 2.5-3.5 Refer to indication-specific guidelines for appropriate target ranges for prosthetic heart valve replacement. Current interpretive data was last revised on 2019. Blood 08/29/2024 1:3 0 AM CDT 08/29/2024 1:51 AM CDT Zuleima Levine MD LAB BLOOD ORDERABLES Lila l Result Performing Organization Address City/[facility]/ZIP Co de Phone Number [facility] [place] [address] * Phosphorus (08/29/2024 1:30 AM CDT) Pathologist [facility] Phosphorus, pl 2.4 2.3 - 4.5 mg/dL Blood 08/29/2024 1:30 AM CDT 08/29/2024 1:42 AM CDT Smith Sawyer MD LAB BLOOD ORDERABLES Lila l Result Performing Organization Address [facility] de Phone Number [facility] Department [place] [employer] [place] [address] * (ABNORMAL) Comprehensive metabolic panel (08/29/2024 1:30 AM CDT) [facility] Sodium 142 135 - 145 mmol/L Potassium, pl 3.8 3.3 - 4.9 mmol/L [facility] Chloride 110 97 - 110 mmol/L [facility] CO2 19(L) 22 - 32 mmol/L [facility] Anion gap 13 2 - 15 mmol/L [facility] BUN 28(H) 6 - 25 mg/dL [facility] Creatinine 1.10 0.80 - 1.30 mg/dL [facility] Glucose 108 70 - 199 mg/dL [facility] Comment: Interpretive Data Fasting glucose [...] 2022. Calcium 8.1(L) 8.5 - 10.3 mg/dL [facility] Bilirubin, total 0.5 0.1 - 1.2 mg/dL [facility] Protein, pl 5.3(L) 6.5 - 8.5 g/dL [facility] Albumin 3.3(L) 3.5 - 5.0 g/dL [facility] Alk phos 72 40 - 130 Units/L [facility] ALT 27 7 - 55 Units/L [facility] AST 53(H) 10 - 50 Units/L [facility] Blood 08/29/2024 1:30 AM CDT 08/29/2024 1:42 AM CDT Smith Sawyer MD LAB BLOOD ORDERABLES Lila l Result Performing Organization Address [facility]/ZIP Co de Phone Number [facility] Department [place] [employer] [place] [address] * Transfuse plasma Standard plasma (08/28/2024 2:39 PM CDT) Blood Zuleima Levine MD BLOOD TRANSFUSION ORDERAB LES Edited Result - Final Performing Organization Address City/[facility]/ZIP Co de Phone Number [facility] [place] [address] * (ABNORMAL) Protime-INR (08/28/2024 2:30 PM CDT) PT 24.1(H) 9.7 - 13.0 sec INR 2.20(H) 0.90 - 1.20 [facility] Comment: Interpretive data Oral anticoagulant therapeutic ranges: Venous thromboembolism prophylaxis or treatment: 2.0-3.0 CARDIOLOGY Standard range: 2.0-3.0 High-intensity range: 2.5-3.5 Refer to indication-specific guidelines for appropriate target ranges for prosthetic heart valve replacement. Current interpretive data was last revised on 2019. Blood 08/28/2024 2:30 PM CDT 08/28/2024 2:58 PM CDT Narrative [facility] - 08/28/2024 3:26 PM CDT 1 hour after transfusion of Plasma completed. Zuleima Levine MD LAB BLOOD ORDERABLES Lila l Result Performing Organization Address City/[facility]/ZIP Co de Phone Number [facility] Department [place] [employer] [place] [address] * Transfuse plasma Standard plasma (08/28/2024 12:29 PM CDT) Blood Zuleima Levine MD BLOOD TRANSFUSION ORDERAB LES Final Result [facility] Department [place] [employer] [place] [address] * Prepare plasma: 2 Units Standard plasma (08/28/2024 10:04 AM CDT) [facility] Product code [id number] Unit Number [id number] [facility] Product Blood Type APOS [facility] Dispense Status PRESUMED TRANSFUSED [facility] Product code [id number] [facility] Unit Number [id number] K [facility] Product Blood Type APOS [facility] Dispense Status PRESUMED TRANSFUSED [facility] Blood Venous blood specimen / Unknown 08/28/2024 10:04 AM CDT 08/28/2024 10:04 AM CDT Narrative [facility] - 08/29/2024 12:40 PM CDT Is this plasma order intended for a COVID-19 patient as convalescent plasma?->Standard plasma Special Requirements Needed?->No Date required:-[id number] FFP # of Units:-2-Units Reasons:-Urgent invasive procedure, INR us Zuleima Levine MD BLOOD BANK PRODUCT ORDERA BLES Final Result Performing Organization Address [facility] Co de Phone Number [facility] [place] [employer] [place] [address] * Potassium, whole blood (08/28/2024 9:19 AM CDT) Potassium, bld 3.4 3.3 - 4.9 mmol/L Blood 08/28/2024 9:19 AM CDT 08/28/2024 9:28 AM CDT Result [facility] Zuleima Levine MD LAB BLOOD ORDERABLES Lila l Result Performing Organization Address [facility] de Phone Number [facility] [place] [employer] [place] [address] * (ABNORMAL) Protime-INR (08/28/2024 9:19 AM CDT) PT 27.4(H) 9.7 - 13.0 sec INR 2.49(H) 0.90 - 1.20 [facility] Comment: Interpretive data Oral anticoagulant therapeutic ranges: Venous thromboembolism prophylaxis or treatment: 2.0-3.0 CARDIOLOGY Standard range: 2.0-3.0 High-intensity range: 2.5-3.5 Refer to indication-specific guidelines for appropriate target ranges for prosthetic heart valve replacement. Current interpretive data was last revised on 2019. Blood 08/28/2024 9:19 AM CDT 08/28/2024 9:33 AM CDT Result [facility] us Zuleima Levine MD LAB BLOOD ORDERABLES Lila l Result Performing Organization Address [facility] Co de Phone Number [facility] [place] [employer] [place] [address] * Transfuse plasma Standard plasma (08/28/2024 8:41 AM CDT) Blood Result [facility] Zuleima Levine MD BLOOD TRANSFUSION ORDERAB LES Final Result Performing Organization Address [facility] [place] [address] * Prepare plasma: 1 Units Standard plasma (08/28/2024 6:40 AM CDT) Product code [id number] Unit Number [id number] 1 [facility] Product Blood Type APOS [facility] Dispense Status PRESUMED TRANSFUSED [facility] Blood Venous blood specimen / Unknown 08/28/2024 6:40 AM CDT 08/28/2024 6:40 AM CDT Narrative [facility] - 08/28/2024 8:00 PM CDT Is this plasma order intended for a COVID-19 patient as convalescent plasma?->Standard plasma Special Requirements Needed?->No Date required:-[id number] FFP # of Units:-1-Units Reasons:-Urgent invasive procedure, INR Zuleima Levine MD BLOOD BANK PRODUCT ORDERA BLES Final Result Performing Organization Address [facility] [place] [address] * (ABNORMAL) Protime-INR (08/28/2024 6:05 AM CDT) PT 28.5(H) 9.7 - 13.0 sec INR 2.59(H) 0.90 - 1.20 [facility] Comment: Interpretive data Oral anticoagulant therapeutic ranges: Venous thromboembolism prophylaxis or treatment: 2.0-3.0 CARDIOLOGY Standard range: 2.0-3.0 High-intensity range: 2.5-3.5 Refer to indication-specific guidelines for appropriate target ranges for prosthetic heart valve replacement. Current interpretive data was last revised on 2019. Blood 08/28/2024 6:05 AM CDT 08/28/2024 6:14 AM CDT Donnie Castro MD LAB BLOOD ORDERABLES Final Result Performing Organization Address [facility] Co de Phone Number [facility] [place] [employer] [place] [address] * Prepare plasma: 1 Units Standard plasma (08/28/2024 2:12 AM CDT) Product code [id number] Unit Number [id number]- X [facility] Product Blood Type APOS [facility] Dispense Status PRESUMED TRANSFUSED [facility] Blood Venous blood specimen / Unknown 08/28/2024 2:12 AM CDT 08/28/2024 2:12 AM CDT Narrative [facility] - 08/28/2024 4:01 PM CDT Is this plasma order intended for a COVID-19 patient as convalescent plasma?->Standard plasma Special Requirements Needed?->No Date required:-[id number] FFP # of Units:-1-Units Reasons:-Urgent invasive procedure, INR Zuleima Levine MD BLOOD BANK PRODUCT ORDERA BLES Final Result Performing Organization Address [facility] de Phone Number [facility] Department [place] [address] * eGFR (08/28/2024 1:32 AM CDT) eGFR [...] MD LAB BLOOD ORDERABLES Lila dawson Result [facility] Department [place] [address] * (ABNORMAL) Differential, auto (08/28/2024 1:32 AM CDT) Pathologist [facility] Neutrophil abs 1.95 1.50 - 6.50 K/cumm Imm gran abs 0.04 0.00 - 0.10 K/cumm [facility] Lymphocyte abs 0.19(L) 0.80 - 3.30 K/cumm [facility] Monocyte abs 0.67 0.20 - 0.80 K/cumm [facility] Eosinophil abs 0.14 0.00 - 0.50 K/cumm [facility] Basophil abs 0.00 0.00 - 0.10 K/cumm [facility] Neutrophil pct 65.2 % [facility] Comment: Interpretive Data Percent cell count reference ranges are not reported, since discordance with absolute values may lead to misinterpretation of CBC data. Current Interpretive Data was last revised on 2017. Imm gran pct 1.3 % [facility] Comment: Interpretive Data Percent cell count reference ranges are not reported, since discordance with absolute values may lead to misinterpretation of CBC data. Current Interpretive Data was last revised on 2017. Lymphocyte pct 6.4 % [facility] Comment: Interpretive Data Percent cell count reference ranges are not reported, since discordance with absolute values may lead to misinterpretation of CBC data. Current Interpretive Data was last revised on 2017. Monocyte pct 22.4 % [facility] Comment: Interpretive Data Percent cell count reference ranges are not reported, since discordance with absolute values may lead to misinterpretation of CBC data. Current Interpretive Data was last revised on 2017. Eosinophil pct 4.7 % [facility] Comment: Interpretive Data Percent cell count reference ranges are not reported, since discordance with absolute values may lead to misinterpretation of CBC data. Current Interpretive Data was last revised on 2017. Basophil pct 0.0 % [facility] Comment: Interpretive Data Percent cell count reference ranges are not reported, since discordance with absolute values may lead to misinterpretation of CBC data. Current Interpretive Data was last revised on 2017. Blood 08/28/2024 1:32 AM CDT 08/28/2024 1:48 AM CDT Smith Sawyer MD LAB BLOOD ORDERABLES Lila dawson Result [facility] Department [place] [address] * (ABNORMAL) CBC with auto differential (08/28/2024 1:32 AM CDT) WBC 2.99(L) 3.80 - 9.90 K/cumm Hgb 8.7(L) 13.0 - 17.5 g/dL [facility] Hct 24.8(L) 38.9 - 50.3 % [facility] Plt 91(L) 150 - 400 K/cumm [facility] MPV 10.0 9.1 - 12.3 fL [facility] RBC 2.30(L) 4.30 - 5.80 M/cumm [facility] MCV 107.8(H) 81.3 - 96.4 fL [facility] MCH 37.8(H) 27.1 - 33.3 pg [facility] MCHC 35.1 32.3 - 35.7 g/dL [facility] RDW CV 21.1(H) 11.1 - 14.9 % [facility] RDW SD 79.5(H) 35.7 - 48.1 fL [facility] NRBC abs 0.02(H) 0.00 - 0.01 K/cumm [facility] Blood 08/28/2024 1:32 AM CDT 08/28/2024 1:48 AM CDT Smith Sawyer MD LAB BLOOD ORDERABLES Lila l Result Performing Organization Address [facility] Co de Phone Number [facility] Department [place] [address] * (ABNORMAL) Protime-INR (08/28/2024 1:32 AM CDT) PT 32.7(H) 9.7 - 13.0 sec INR 2.96(H) 0.90 - 1.20 [facility] Comment: Interpretive data Oral anticoagulant therapeutic ranges: Venous thromboembolism prophylaxis or treatment: 2.0-3.0 CARDIOLOGY Standard range: 2.0-3.0 High-intensity range: 2.5-3.5 Refer to indication-specific guidelines for appropriate target ranges for prosthetic heart valve replacement. Current interpretive data was last revised on 2019. Blood 08/28/2024 1:32 AM CDT 08/28/2024 1:40 AM CDT Stewart Varghese MD LAB BLOOD ORDERABLES Lila l Result Performing Organization Address City/[facility] Co de Phone Number [facility] Department [place] [address] * Phosphorus (08/28/2024 1:32 AM CDT) Phosphorus, pl 2.9 2.3 - 4.5 mg/dL Blood 08/28/2024 1:32 AM CDT 08/28/2024 1:48 AM CDT us Smith Sawyer MD LAB BLOOD ORDERABLES Lila dawson Result [facility] Department [place] [address] * (ABNORMAL) Comprehensive metabolic panel (08/28/2024 1:32 AM CDT) Sodium 141 135 - 145 mmol/L Potassium, pl 3.0(L) 3.3 - 4.9 mmol/L [facility] Chloride 112(H) 97 - 110 mmol/L [facility] CO2 21(L) 22 - 32 mmol/L [facility] Anion gap 8 2 - 15 mmol/L [facility] BUN 26(H) 6 - 25 mg/dL [facility] Creatinine 1.01 0.80 - 1.30 mg/dL [facility] Glucose 88 70 - 199 mg/dL [facility] Comment: Interpretive Data Fasting glucose [...] 2022. Calcium 7.7(L) 8.5 - 10.3 mg/dL [facility] Bilirubin, total 0.5 0.1 - 1.2 mg/dL [facility] Protein, pl 4.4(L) 6.5 - 8.5 g/dL [facility] Albumin 2.7(L) 3.5 - 5.0 g/dL [facility] Alk phos 60 40 - 130 Units/L [facility] ALT 23 7 - 55 Units/L [facility] AST 39 10 - 50 Units/L [facility] Blood 08/28/2024 1:32 AM CDT 08/28/2024 1:48 AM CDT Smith Sawyer MD LAB BLOOD ORDERABLES Lila l Result Performing Organization Address [facility] de Phone Number [facility] Department [place] [address] * Rotavirus antigen Stool (08/27/2024 10:04 AM CDT) Rotavirus Ag Negative Negative Comment: Interpretative Data Testing performed at the [facility] using antigen detection with Xpect Rotavirus lateral flow assay. This test is cleared by the [place] Food and Drug Administration for fresh stool specimens. The performance characteristics have been verified by the [facility]. A negative result does not [...] L ORDERABLES Final Result Performing Organization Address [facility] de Phone Number [facility] Department [place] [address] * eGFR (08/27/2024 12:29 AM CDT) eGFR [...] MD LAB BLOOD ORDERABLES Lila dawson Result [facility] Department [place] [address] * (ABNORMAL) Differential, auto (08/27/2024 12:29 AM CDT) Pathologist [facility] Neutrophil abs 1.83 1.50 - 6.50 K/cumm Imm gran abs 0.04 0.00 - 0.10 K/cumm [facility] Lymphocyte abs 0.12(L) 0.80 - 3.30 K/cumm [facility] Monocyte abs 0.69 0.20 - 0.80 K/cumm [facility] Eosinophil abs 0.07 0.00 - 0.50 K/cumm [facility] Basophil abs 0.01 0.00 - 0.10 K/cumm [facility] Neutrophil pct 66.4 % [facility] Comment: Interpretive Data Percent cell count reference ranges are not reported, since discordance with absolute values may lead to misinterpretation of CBC data. Current Interpretive Data was last revised on 2017. Imm gran pct 1.4 % [facility] Comment: Interpretive Data Percent cell count reference ranges are not reported, since discordance with absolute values may lead to misinterpretation of CBC data. Current Interpretive Data was last revised on 2017. Lymphocyte pct 4.3 % [facility] Comment: Interpretive Data Percent cell count reference ranges are not reported, since discordance with absolute values may lead to misinterpretation of CBC data. Current Interpretive Data was last revised on 2017. Monocyte pct 25.0 % [facility] Comment: Interpretive Data Percent cell count reference ranges are not reported, since discordance with absolute values may lead to misinterpretation of CBC data. Current Interpretive Data was last revised on 2017. Eosinophil pct 2.5 % [facility] Comment: Interpretive Data Percent cell count reference ranges are not reported, since discordance with absolute values may lead to misinterpretation of CBC data. Current Interpretive Data was last revised on 2017. Basophil pct 0.4 % [facility] Comment: Interpretive Data Percent cell count reference ranges are not reported, since discordance with absolute values may lead to misinterpretation of CBC data. Current Interpretive Data was last revised on 2017. Blood 08/27/2024 12:2 9 AM CDT 08/27/2024 12:43 AM CDT Smith Sawyer MD LAB BLOOD ORDERABLES Lila dawson Result [facility] Department [place] [address] * (ABNORMAL) CBC with auto differential (08/27/2024 12:29 AM CDT) WBC 2.76(L) 3.80 - 9.90 K/cumm Hgb 9.0(L) 13.0 - 17.5 g/dL [facility] Hct 25.4(L) 38.9 - 50.3 % [facility] Plt 112(L) 150 - 400 K/cumm [facility] MPV 10.0 9.1 - 12.3 fL [facility] RBC 2.41(L) 4.30 - 5.80 M/cumm [facility] MCV 105.4(H) 81.3 - 96.4 fL [facility] MCH 37.3(H) 27.1 - 33.3 pg [facility] MCHC 35.4 32.3 - 35.7 g/dL [facility] RDW CV 19.9(H) 11.1 - 14.9 % [facility] RDW SD 73.0(H) 35.7 - 48.1 fL [facility] NRBC abs 0.05(H) 0.00 - 0.01 K/cumm [facility] Blood 08/27/2024 12:2 9 AM CDT 08/27/2024 12:43 AM CDT Smith Sawyer MD LAB BLOOD ORDERABLES Lila l Result Performing Organization Address [facility] Co de Phone Number [facility] [place] [address] * (ABNORMAL) Protime-INR (08/27/2024 12:29 AM CDT) PT 27.0(H) 9.7 - 13.0 sec INR 2.45(H) 0.90 - 1.20 [facility] Comment: Interpretive data Oral anticoagulant therapeutic [...] ORDERABLES Lila l Result Performing Organization Address [facility] Co de Phone Number [facility] Department [place] [address] * Type and screen (08/27/2024 12:29 AM CDT) ABO Rh A Positive Minna, indirect Negative [facility] Blood 08/27/2024 12:2 9 AM CDT 08/27/2024 12:46 AM CDT Narrative [facility] - 08/27/2024 2:10 AM CDT Has the patient had Daratumumab or Isatuximab in the past 6 months?->Unknown Smith Sawyer MD LAB BLOOD BANK TEST ORDER DEMETRIO Final Result Performing Organization Address [facility] Co de Phone Number [facility] [employer] [place] [address] * Uric acid (08/27/2024 12:29 AM CDT) Uric acid 6.9 3.0 - 8.0 mg/dL Blood 08/27/2024 12:2 9 AM CDT 08/27/2024 12:43 AM CDT Narrative [facility] - 08/27/2024 1:11 AM CDT Saturday and only. Morning draw. . Smith Sawyer MD LAB BLOOD ORDERABLES Lila l Result Performing Organization Address [facility] Co de Phone Number [facility] [employer] [place] [address] * (ABNORMAL) Phosphorus (08/27/2024 12:29 AM CDT) Phosphorus, pl 2.2(L) 2.3 - 4.5 mg/dL Blood 08/27/2024 12:2 9 AM CDT 08/27/2024 12:43 AM CDT Smith Sawyer MD LAB BLOOD ORDERABLES Lila l Result Performing Organization Address City/[facility] Co de Phone Number [facility] [employer] [place] [address] * Magnesium (08/27/2024 12:29 AM CDT) Magnesium 1.7 1.4 - 2.5 mg/dL Blood 08/27/2024 12:2 9 AM CDT 08/27/2024 12:43 AM CDT Zuleima Levine MD LAB BLOOD ORDERABLES Lila l Result Performing Organization Address [facility] de Phone Number [facility] Department [place] [address] * (ABNORMAL) Lactate dehydrogenase (LD) (08/27/2024 12:29 AM CDT) [facility] Lactate dehydrogenase (LDH) 296(H) 100 - 250 Units/L Blood 08/27/2024 12:2 9 AM CDT 08/27/2024 12:43 AM CDT Narrative [facility] - 08/27/2024 1:11 AM CDT Saturday and only. Morning draw. Smith Sawyer MD LAB BLOOD ORDERABLES Lila l Result Performing Organization Address [facility] de Phone Number [facility] Department [place] [address] * (ABNORMAL) Comprehensive metabolic panel (08/27/2024 12:29 AM CDT) [facility] Sodium 142 135 - 145 mmol/L Potassium, pl 3.4 3.3 - 4.9 mmol/L [facility] Chloride 112(H) 97 - 110 mmol/L [facility] CO2 19(L) 22 - 32 mmol/L [facility] Anion gap 11 2 - 15 mmol/L [facility] BUN 29(H) 6 - 25 mg/dL [facility] Creatinine 1.01 0.80 - 1.30 mg/dL [facility] Glucose 116 70 - 199 mg/dL [facility] Comment: Interpretive Data Fasting glucose [...] 2022. Calcium 7.8(L) 8.5 - 10.3 mg/dL [facility] Bilirubin, total 0.6 0.1 - 1.2 mg/dL [facility] Protein, pl 4.8(L) 6.5 - 8.5 g/dL [facility] Albumin 3.0(L) 3.5 - 5.0 g/dL [facility] Alk phos 68 40 - 130 Units/L [facility] ALT 20 7 - 55 Units/L [facility] AST 37 10 - 50 Units/L [facility] Blood 08/27/2024 12:2 9 AM CDT 08/27/2024 12:43 AM CDT us Smith Sawyer MD LAB BLOOD ORDERABLES Lila l Result Performing Organization Address [facility] Co de Phone Number [facility] Department [place] [address] * (ABNORMAL) Protime-INR (08/26/2024 5:32 PM CDT) PT 23.9(H) 9.7 - 13.0 sec INR 2.18(H) 0.90 - 1.20 [facility] Comment: Interpretive data Oral anticoagulant therapeutic ranges: Venous thromboembolism prophylaxis or treatment: 2.0-3.0 CARDIOLOGY Standard range: 2.0-3.0 High-intensity range: 2.5-3.5 Refer to indication-specific guidelines for appropriate target ranges for prosthetic heart valve replacement. Current interpretive data was last revised on 2019. Blood 08/26/2024 5:32 PM CDT 08/26/2024 5:54 PM CDT Zuleima Levine MD LAB BLOOD ORDERABLES Lila l Result Performing Organization Address [facility]/State/ZIP Co de Phone Number [facility] Department [place] [address] * eGFR (08/26/2024 2:08 AM CDT) Pathologist [facility] eGFR 64 >=60 mL/min/1. 73 m2 Comment: [...] BLOOD ORDERABLES Lila dawson Result [facility] [place] [address] * (ABNORMAL) Differential, auto (08/26/2024 2:08 AM CDT) Pathologist [facility] Neutrophil abs 3.03 1.50 - 6.50 K/cumm Imm gran abs 0.06 0.00 - 0.10 K/cumm [facility] Lymphocyte abs 0.27(L) 0.80 - 3.30 K/cumm [facility] Monocyte abs 0.85(H) 0.20 - 0.80 K/cumm [facility] Eosinophil abs 0.13 0.00 - 0.50 K/cumm [facility] Basophil abs 0.01 0.00 - 0.10 K/cumm [facility] Neutrophil pct 69.7 % [facility] Comment: Interpretive Data Percent cell count reference ranges are not reported, since discordance with absolute values may lead to misinterpretation of CBC data. Current Interpretive Data was last revised on 2017. Imm gran pct 1.4 % [facility] Comment: Interpretive Data Percent cell count reference ranges are not reported, since discordance with absolute values may lead to misinterpretation of CBC data. Current Interpretive Data was last revised on 2017. Lymphocyte pct 6.2 % [facility] Comment: Interpretive Data Percent cell count reference ranges are not reported, since discordance with absolute values may lead to misinterpretation of CBC data. Current Interpretive Data was last revised on 2017. Monocyte pct 19.5 % [facility] Comment: Interpretive Data Percent cell count reference ranges are not reported, since discordance with absolute values may lead to misinterpretation of CBC data. Current Interpretive Data was last revised on 2017. Eosinophil pct 3.0 % [facility] Comment: Interpretive Data Percent cell count reference ranges are not reported, since discordance with absolute values may lead to misinterpretation of CBC data. Current Interpretive Data was last revised on 2017. Basophil pct 0.2 % [facility] Comment: Interpretive Data Percent cell count reference ranges are not reported, since discordance with absolute values may lead to misinterpretation of CBC data. Current Interpretive Data was last revised on 2017. Blood 08/26/2024 2:08 AM CDT 08/26/2024 2:24 AM CDT us Smith Sawyer MD LAB BLOOD ORDERABLES Lila dawson Result [facility] Department [place] [address] * (ABNORMAL) CBC with auto differential (08/26/2024 2:08 AM CDT) WBC 4.35 3.80 - 9.90 K/cumm Hgb 9.3(L) 13.0 - 17.5 g/dL [facility] Hct 25.9(L) 38.9 - 50.3 % [facility] Plt 134(L) 150 - 400 K/cumm [facility] MPV 9.8 9.1 - 12.3 fL [facility] RBC 2.47(L) 4.30 - 5.80 M/cumm [facility] MCV 104.9(H) 81.3 - 96.4 fL [facility] MCH 37.7(H) 27.1 - 33.3 pg [facility] MCHC 35.9(H) 32.3 - 35.7 g/dL [facility] RDW CV 19.6(H) 11.1 - 14.9 % [facility] RDW SD 71.3(H) 35.7 - 48.1 fL [facility] NRBC abs 0.08(H) 0.00 - 0.01 K/cumm [facility] Blood 08/26/2024 2:08 AM CDT 08/26/2024 2:24 AM CDT us Smith Sawyer MD LAB BLOOD ORDERABLES Lila dawson Result [facility] Department [place] [address] * (ABNORMAL) Protime-INR (08/26/2024 2:08 AM CDT) PT 18.4(H) 9.7 - 13.0 sec INR 1.69(H) 0.90 - 1.20 [facility] Comment: Interpretive data Oral anticoagulant therapeutic ranges: Venous thromboembolism prophylaxis or treatment: 2.0-3.0 CARDIOLOGY Standard range: 2.0-3.0 High-intensity range: 2.5-3.5 Refer to indication-specific guidelines for appropriate target ranges for prosthetic heart valve replacement. Current interpretive data was last revised on 2019. Blood 08/26/2024 2:08 AM CDT 08/26/2024 2:30 AM CDT us Stewart Varghese MD LAB BLOOD ORDERABLES Lila l Result Performing Organization Address City/[facility]/ZIP Co de Phone Number [facility] [place] [address] * Phosphorus (08/26/2024 2:08 AM CDT) Phosphorus, pl 3.4 2.3 - 4.5 mg/dL Blood 08/26/2024 2:08 AM CDT 08/26/2024 2:24 AM CDT us Smith Sawyer MD LAB BLOOD ORDERABLES Lila l Result Performing Organization Address [facility] Co de Phone Number [facility] [place] [address] * Magnesium (08/26/2024 2:08 AM CDT) [facility] Magnesium 1.8 1.4 - 2.5 mg/dL Blood 08/26/2024 2:08 AM CDT 08/26/2024 2:24 AM CDT us Zuleima Levine MD LAB BLOOD ORDERABLES Lila l Result Performing Organization Address [facility] Co de Phone Number [facility] [place] [address] * (ABNORMAL) Comprehensive metabolic panel (08/26/2024 2:08 AM CDT) Sodium 140 135 - 145 mmol/L Potassium, pl 3.1(L) 3.3 - 4.9 mmol/L [facility] Chloride 109 97 - 110 mmol/L [facility] CO2 20(L) 22 - 32 mmol/L [facility] Anion gap 11 2 - 15 mmol/L [facility] BUN 36(H) 6 - 25 mg/dL [facility] Creatinine 1.18 0.80 - 1.30 mg/dL [facility] Glucose 107 70 - 199 mg/dL [facility] Comment: Interpretive Data Fasting glucose [...] 2022. Calcium 8.1(L) 8.5 - 10.3 mg/dL [facility] Bilirubin, total 0.7 0.1 - 1.2 mg/dL [facility] Protein, pl 5.1(L) 6.5 - 8.5 g/dL [facility] Albumin 3.1(L) 3.5 - 5.0 g/dL [facility] Alk phos 78 40 - 130 Units/L [facility] ALT 19 7 - 55 Units/L [facility] AST 33 10 - 50 Units/L [facility] Blood 08/26/2024 2:08 AM CDT 08/26/2024 2:24 AM CDT Smith Sawyer MD LAB BLOOD ORDERABLES Lila dawson Result [facility] Department [place] [address] * eGFR (08/25/2024 2:06 AM CDT) eGFR [...] MD LAB BLOOD ORDERABLES Lila dawson Result [facility] Department [place] [address] * (ABNORMAL) Differential, auto (08/25/2024 2:06 AM CDT) Neutrophil abs 2.52 1.50 - 6.50 K/cumm Imm gran abs 0.03 0.00 - 0.10 K/cumm [facility] Lymphocyte abs 0.26(L) 0.80 - 3.30 K/cumm [facility] Monocyte abs 0.72 0.20 - 0.80 K/cumm [facility] Eosinophil abs 0.06 0.00 - 0.50 K/cumm [facility] Basophil abs 0.00 0.00 - 0.10 K/cumm [facility] Neutrophil pct 70.2 % [facility] Comment: Interpretive Data Percent cell count reference ranges are not reported, since discordance with absolute values may lead to misinterpretation of CBC data. Current Interpretive Data was last revised on 2017. Imm gran pct 0.8 % [facility] Comment: Interpretive Data Percent cell count reference ranges are not reported, since discordance with absolute values may lead to misinterpretation of CBC data. Current Interpretive Data was last revised on 2017. Lymphocyte pct 7.2 % [facility] Comment: Interpretive Data Percent cell count reference ranges are not reported, since discordance with absolute values may lead to misinterpretation of CBC data. Current Interpretive Data was last revised on 2017. Monocyte pct 20.1 % [facility] Comment: Interpretive Data Percent cell count reference ranges are not reported, since discordance with absolute values may lead to misinterpretation of CBC data. Current Interpretive Data was last revised on 2017. Eosinophil pct 1.7 % [facility] Comment: Interpretive Data Percent cell count reference ranges are not reported, since discordance with absolute values may lead to misinterpretation of CBC data. Current Interpretive Data was last revised on 2017. Basophil pct 0.0 % [facility] Comment: Interpretive Data Percent cell count reference ranges are not reported, since discordance with absolute values may lead to misinterpretation of CBC data. Current Interpretive Data was last revised on 2017. Blood 08/25/2024 2:06 AM CDT 08/25/2024 2:27 AM CDT Smith Sawyer MD LAB BLOOD ORDERABLES Lila dawson Result [facility] Department [place] [address] * (ABNORMAL) CBC with auto differential (08/25/2024 2:06 AM CDT) WBC 3.59(L) 3.80 - 9.90 K/cumm Hgb 9.4(L) 13.0 - 17.5 g/dL [facility] Hct 26.9(L) 38.9 - 50.3 % [facility] Plt 149(L) 150 - 400 K/cumm [facility] MPV 9.8 9.1 - 12.3 fL [facility] RBC 2.54(L) 4.30 - 5.80 M/cumm [facility] MCV 105.9(H) 81.3 - 96.4 fL [facility] MCH 37.0(H) 27.1 - 33.3 pg [facility] MCHC 34.9 32.3 - 35.7 g/dL [facility] RDW CV 19.0(H) 11.1 - 14.9 % [facility] RDW SD 66.2(H) 35.7 - 48.1 fL [facility] NRBC abs 0.04(H) 0.00 - 0.01 K/cumm [facility] Blood 08/25/2024 2:06 AM CDT 08/25/2024 2:27 AM CDT Smith Sawyer MD LAB BLOOD ORDERABLES Lila l Result Performing Organization Address [facility] Co de Phone Number [facility] Department [place] [address] * (ABNORMAL) Protime-INR (08/25/2024 2:06 AM CDT) PT 14.6(H) 9.7 - 13.0 sec INR 1.34(H) 0.90 - 1.20 [facility] Comment: Interpretive data Oral anticoagulant therapeutic ranges: Venous thromboembolism prophylaxis or treatment: 2.0-3.0 CARDIOLOGY Standard range: 2.0-3.0 High-intensity range: 2.5-3.5 Refer to indication-specific guidelines for appropriate target ranges for prosthetic heart valve replacement. Current interpretive data was last revised on 2019. Blood 08/25/2024 2:06 AM CDT 08/25/2024 2:34 AM CDT Stewart Varghese MD LAB BLOOD ORDERABLES Lila l Result Performing Organization Address City/[facility] Co de Phone Number [facility] Department [place] [address] * Phosphorus (08/25/2024 2:06 AM CDT) Phosphorus, pl 3.6 2.3 - 4.5 mg/dL Blood 08/25/2024 2:06 AM CDT 08/25/2024 2:26 AM CDT us Smith Sawyer MD LAB BLOOD ORDERABLES Lila dawson Result [facility] Department [place] [address] * (ABNORMAL) Comprehensive metabolic panel (08/25/2024 2:06 AM CDT) Sodium 142 135 - 145 mmol/L Potassium, pl 3.4 3.3 - 4.9 mmol/L [facility] Chloride 111(H) 97 - 110 mmol/L [facility] CO2 21(L) 22 - 32 mmol/L [facility] Anion gap 10 2 - 15 mmol/L [facility] BUN 38(H) 6 - 25 mg/dL [facility] Creatinine 1.17 0.80 - 1.30 mg/dL [facility] Glucose 121 70 - 199 mg/dL [facility] Comment: Interpretive Data Fasting glucose [...] 2022. Calcium 8.3(L) 8.5 - 10.3 mg/dL [facility] Bilirubin, total 0.7 0.1 - 1.2 mg/dL [facility] Protein, pl 5.1(L) 6.5 - 8.5 g/dL [facility] Albumin 3.2(L) 3.5 - 5.0 g/dL [facility] Alk phos 78 40 - 130 Units/L [facility] ALT 16 7 - 55 Units/L [facility] AST 29 10 - 50 Units/L [facility] Blood 08/25/2024 2:06 AM CDT 08/25/2024 2:26 AM CDT Smith Sawyer MD LAB BLOOD ORDERABLES Lila l Result Performing Organization Address [facility] Co de Phone Number [facility] [place] [address] * eGFR (08/24/2024 3:33 AM CDT) Pathologist [facility] eGFR 62 >=60 mL/min/1. 73 m2 [...] ORDERABLES Lila l Result Performing Organization Address City/[facility] Co de Phone Number [facility] [place] [address] * (ABNORMAL) Differential, auto (08/24/2024 3:33 AM CDT) Pathologist [facility] Neutrophil abs 2.28 1.50 - 6.50 K/cumm Imm gran abs 0.03 0.00 - 0.10 K/cumm [facility] Lymphocyte abs 0.30(L) 0.80 - 3.30 K/cumm [facility] Monocyte abs 0.76 0.20 - 0.80 K/cumm [facility] Eosinophil abs 0.02 0.00 - 0.50 K/cumm [facility] Basophil abs 0.01 0.00 - 0.10 K/cumm [facility] Neutrophil pct 67.0 % [facility] Comment: Interpretive Data Percent cell count reference ranges are not reported, since discordance with absolute values may lead to misinterpretation of CBC data. Current Interpretive Data was last revised on 2017. Imm gran pct 0.9 % [facility] Comment: Interpretive Data Percent cell count reference ranges are not reported, since discordance with absolute values may lead to misinterpretation of CBC data. Current Interpretive Data was last revised on 2017. Lymphocyte pct 8.8 % [facility] Comment: Interpretive Data Percent cell count reference ranges are not reported, since discordance with absolute values may lead to misinterpretation of CBC data. Current Interpretive Data was last revised on 2017. Monocyte pct 22.4 % [facility] Comment: Interpretive Data Percent cell count reference ranges are not reported, since discordance with absolute values may lead to misinterpretation of CBC data. Current Interpretive Data was last revised on 2017. Eosinophil pct 0.6 % [facility] Comment: Interpretive Data Percent cell count reference ranges are not reported, since discordance with absolute values may lead to misinterpretation of CBC data. Current Interpretive Data was last revised on 2017. Basophil pct 0.3 % [facility] Comment: Interpretive Data Percent cell count reference ranges are not reported, since discordance with absolute values may lead to misinterpretation of CBC data. Current Interpretive Data was last revised on 2017. Blood 08/24/2024 3:33 AM CDT 08/24/2024 4:14 AM CDT us Smith Sawyer MD LAB BLOOD ORDERABLES Lila dawson Result [facility] Department [place] [address] * (ABNORMAL) CBC with auto differential (08/24/2024 3:33 AM CDT) Pathologist [facility] WBC 3.40(L) 3.80 - 9.90 K/cumm Hgb 9.4(L) 13.0 - 17.5 g/dL [facility] Hct 26.3(L) 38.9 - 50.3 % [facility] Plt 162 150 - 400 K/cumm [facility] MPV 9.5 9.1 - 12.3 fL [facility] RBC 2.52(L) 4.30 - 5.80 M/cumm [facility] MCV 104.4(H) 81.3 - 96.4 fL [facility] MCH 37.3(H) 27.1 - 33.3 pg [facility] MCHC 35.7 32.3 - 35.7 g/dL [facility] RDW CV 18.5(H) 11.1 - 14.9 % [facility] RDW SD 62.8(H) 35.7 - 48.1 fL [facility] NRBC abs 0.04(H) 0.00 - 0.01 K/cumm [facility] Blood 08/24/2024 3:33 AM CDT 08/24/2024 4:14 AM CDT Smith Sawyer MD LAB BLOOD ORDERABLES Lila dawson Result [facility] Department [place] [address] * aPTT (08/24/2024 3:33 AM CDT) Pathologist [facility] aPTT 34 28 - 38 sec Comment: Interpretive Data Heparin therapeutic range: 66.0 - 100.0 seconds. Range based on correlation with therapeutic heparin activity range of 0.3 - 0.7 Units/mL. Current interpretive data was last revised on 2023. Blood 08/24/2024 3:33 AM CDT 08/24/2024 4:12 AM CDT Smith Sawyer MD LAB BLOOD ORDERABLES Lila l Result Performing Organization Address City/[facility]/ZIP Co de Phone Number [facility] [employer] [place] [address] * (ABNORMAL) Protime-INR (08/24/2024 3:33 AM CDT) PT 17.8(H) 9.7 - 13.0 sec INR 1.63(H) 0.90 - 1.20 [facility] Comment: Interpretive data Oral anticoagulant therapeutic ranges: Venous thromboembolism prophylaxis or treatment: 2.0-3.0 CARDIOLOGY Standard range: 2.0-3.0 High-intensity range: 2.5-3.5 Refer to indication-specific guidelines for appropriate target ranges for prosthetic heart valve replacement. Current interpretive data was last revised on 2019. Blood 08/24/2024 3:33 AM CDT 08/24/2024 4:12 AM CDT Smith Sawyer MD LAB BLOOD ORDERABLES Lila l Result Performing Organization Address [facility] [place] [address] * Type and screen (08/24/2024 3:33 AM CDT) ABO Rh A Positive Minna, indirect Negative [facility] Blood 08/24/2024 3:33 AM CDT 08/24/2024 3:48 AM CDT Narrative [facility] - 08/24/2024 4:35 AM CDT Has the patient had Daratumumab or Isatuximab in the past 6 months?->Unknown Smith Sawyer MD LAB BLOOD BANK TEST ORDER DEMETRIO Final Result Performing Organization Address City/[facility]/ZIP Co de Phone Number [facility] [employer] [place] [address] * Uric acid (08/24/2024 3:33 AM CDT) [facility] Uric acid 7.6 3.0 - 8.0 mg/dL Blood 08/24/2024 3:33 AM CDT 08/24/2024 4:13 AM CDT Narrative [facility] - 08/24/2024 4:41 AM CDT Saturday and only. Morning draw. . Smith Sawyer MD LAB BLOOD ORDERABLES Lila l Result Performing Organization Address City/[facility]/ZIP Co de Phone Number [facility] [place] [employer] [place] [address] * Phosphorus (08/24/2024 3:33 AM CDT) [facility] Phosphorus, pl 3.4 2.3 - 4.5 mg/dL Blood 08/24/2024 3:33 AM CDT 08/24/2024 4:13 AM CDT Smith Sawyer MD LAB BLOOD ORDERABLES Lila l Result Performing Organization Address [facility] Co de Phone Number [facility] [employer] [place] [address] * (ABNORMAL) Lactate dehydrogenase (LD) (08/24/2024 3:33 AM CDT) [facility] Lactate dehydrogenase (LDH) 302(H) 100 - 250 Units/L Blood 08/24/2024 3:33 AM CDT 08/24/2024 4:13 AM CDT Narrative [facility] - 08/24/2024 4:41 AM CDT Saturday and only. Morning draw. Smith Sawyer MD LAB BLOOD ORDERABLES Lila l Result Performing Organization Address City/[facility] Co de Phone Number [facility] [employer] [place] [address] * (ABNORMAL) Comprehensive metabolic panel (08/24/2024 3:33 AM CDT) Sodium 139 135 - 145 mmol/L Potassium, pl 3.4 3.3 - 4.9 mmol/L [facility] Chloride 108 97 - 110 mmol/L [facility] CO2 19(L) 22 - 32 mmol/L [facility] Anion gap 12 2 - 15 mmol/L [facility] BUN 39(H) 6 - 25 mg/dL [facility] Creatinine 1.21 0.80 - 1.30 mg/dL [facility] Glucose 113 70 - 199 mg/dL [facility] Comment: Interpretive Data Fasting glucose [...] 2022. Calcium 8.6 8.5 - 10.3 mg/dL [facility] Bilirubin, total 0.8 0.1 - 1.2 mg/dL [facility] Protein, pl 5.2(L) 6.5 - 8.5 g/dL [facility] Albumin 3.1(L) 3.5 - 5.0 g/dL [facility] Alk phos 75 40 - 130 Units/L [facility] ALT 15 7 - 55 Units/L [facility] AST 29 10 - 50 Units/L [facility] Blood 08/24/2024 3:33 AM CDT 08/24/2024 4:13 AM CDT us Smith Sawyer MD LAB BLOOD ORDERABLES Lila dawson Result [facility] Department [place] [address] * Critical Result Callback Hematology (08/23/2024 8:31 AM CDT) Date Notified [id number] Time Notified 939 [facility] TestName INR [facility] Called/Read Back Trish [facility] Credentials RN [facility] Called By TP [facility] Blood 08/23/2024 8:31 AM CDT 08/23/2024 8:48 AM CDT Stewart Varghese MD LAB BLOOD ORDERABLES Lila l Result Performing Organization Address City/[facility] Co de Phone Number [facility] [employer] [place] [address] * (ABNORMAL) aPTT (08/23/2024 8:31 AM CDT) [...] ORDERABLES Lila l Result Performing Organization Address City/[facility] Co de Phone Number [facility] Department [place] [employer] [place] [address] * (ABNORMAL) Thrombin time (08/23/2024 8:31 AM CDT) Thrombin time 15.3(H) 10.0 - 15.0 sec Blood 08/23/2024 8:31 AM CDT 08/23/2024 8:48 AM CDT Stewart Varghese MD LAB BLOOD ORDERABLES Lila l Result Performing Organization Address City/[facility] Co de Phone Number [facility] Department [place] [address] * (ABNORMAL) Protime-INR (08/23/2024 8:31 AM CDT) PT >100.0(H) 9.7 - 13.0 sec Comment: Verified No clot detected in sample. INR >9.00(C) 0.90 - 1.20 [facility] Comment: Verified No clot detected in sample. [...] ORDERABLES Lila l Result Performing Organization Address [facility] Co de Phone Number [facility] Department [place] [address] * eGFR (08/23/2024 12:33 AM CDT) eGFR [...] MD LAB BLOOD ORDERABLES Lila eunice Result [facility] Department [place] [address] * (ABNORMAL) Differential, auto (08/23/2024 12:33 AM CDT) Pathologist [facility] Neutrophil abs 3.43 1.50 - 6.50 K/cumm Imm gran abs 0.02 0.00 - 0.10 K/cumm [facility] Lymphocyte abs 0.19(L) 0.80 - 3.30 K/cumm [facility] Monocyte abs 0.78 0.20 - 0.80 K/cumm [facility] Eosinophil abs 0.00 0.00 - 0.50 K/cumm [facility] Basophil abs 0.00 0.00 - 0.10 K/cumm [facility] Neutrophil pct 77.6 % [facility] Comment: Interpretive Data Percent cell count reference ranges are not reported, since discordance with absolute values may lead to misinterpretation of CBC data. Current Interpretive Data was last revised on 2017. Imm gran pct 0.5 % [facility] Comment: Interpretive Data Percent cell count reference ranges are not reported, since discordance with absolute values may lead to misinterpretation of CBC data. Current Interpretive Data was last revised on 2017. Lymphocyte pct 4.3 % [facility] Comment: Interpretive Data Percent cell count reference ranges are not reported, since discordance with absolute values may lead to misinterpretation of CBC data. Current Interpretive Data was last revised on 2017. Monocyte pct 17.6 % [facility] Comment: Interpretive Data Percent cell count reference ranges are not reported, since discordance with absolute values may lead to misinterpretation of CBC data. Current Interpretive Data was last revised on 2017. Eosinophil pct 0.0 % [facility] Comment: Interpretive Data Percent cell count reference ranges are not reported, since discordance with absolute values may lead to misinterpretation of CBC data. Current Interpretive Data was last revised on 2017. Basophil pct 0.0 % [facility] Comment: Interpretive Data Percent cell count reference ranges are not reported, since discordance with absolute values may lead to misinterpretation of CBC data. Current Interpretive Data was last revised on 2017. Blood 08/23/2024 12:3 3 AM CDT 08/23/2024 12:55 AM CDT us Smith Sawyer MD LAB BLOOD ORDERABLES Lila dawson Result [facility] Department [place] [address] * (ABNORMAL) CBC with auto differential (08/23/2024 12:33 AM CDT) WBC 4.42 3.80 - 9.90 K/cumm Hgb 9.2(L) 13.0 - 17.5 g/dL [facility] Hct 25.8(L) 38.9 - 50.3 % [facility] Plt 183 150 - 400 K/cumm [facility] MPV 9.6 9.1 - 12.3 fL [facility] RBC 2.51(L) 4.30 - 5.80 M/cumm [facility] MCV 102.8(H) 81.3 - 96.4 fL [facility] MCH 36.7(H) 27.1 - 33.3 pg [facility] MCHC 35.7 32.3 - 35.7 g/dL [facility] RDW CV 18.0(H) 11.1 - 14.9 % [facility] RDW SD 61.4(H) 35.7 - 48.1 fL [facility] NRBC abs 0.04(H) 0.00 - 0.01 K/cumm [facility] Blood 08/23/2024 12:3 3 AM CDT 08/23/2024 12:55 AM CDT Smith Sawyer MD LAB BLOOD ORDERABLES Lila l Result [facility] Department [place] [address] * Phosphorus (08/23/2024 12:33 AM CDT) Pathologist [facility] Phosphorus, pl 3.3 2.3 - 4.5 mg/dL Blood 08/23/2024 12:3 3 AM CDT 08/23/2024 12:55 AM CDT Smith Sawyer MD LAB BLOOD ORDERABLES Lila l Result Performing Organization Address [facility] de Phone Number [facility] Department [place] [address] * (ABNORMAL) Comprehensive metabolic panel (08/23/2024 12:33 AM CDT) [facility] Sodium 139 135 - 145 mmol/L Potassium, pl 3.9 3.3 - 4.9 mmol/L [facility] Chloride 107 97 - 110 mmol/L [facility] CO2 21(L) 22 - 32 mmol/L [facility] Anion gap 11 2 - 15 mmol/L [facility] BUN 38(H) 6 - 25 mg/dL [facility] Creatinine 1.22 0.80 - 1.30 mg/dL [facility] Glucose 160 70 - 199 mg/dL [facility] Comment: Interpretive Data Fasting glucose [...] 2022. Calcium 8.8 8.5 - 10.3 mg/dL [facility] Bilirubin, total 0.7 0.1 - 1.2 mg/dL [facility] Protein, pl 5.5(L) 6.5 - 8.5 g/dL [facility] Albumin 3.6 3.5 - 5.0 g/dL [facility] Alk phos 77 40 - 130 Units/L [facility] ALT 17 7 - 55 Units/L [facility] AST 25 10 - 50 Units/L [facility] Blood 08/23/2024 12:3 3 AM CDT 08/23/2024 12:55 AM CDT us Smith Sawyer MD LAB BLOOD ORDERABLES Lila dawson Result Performing Organization Address City/[facility] Co de Phone Number [facility] [place] [employer] [place] [address] * -Miscellaneous Molecular Send-Out Request (08/22/2024 3:01 PM CDT) Result 1 Test Name: Dihydropyrimidine Dehydrogenase Gene Full Sequencing ([place]) Specimen Type: PB Result: See attached scanned report for results. Test name Dihydropyrimidine Dehydrogenase Gene Full Sequencing ([place]) [facility] Miscellaneous 08/22/2024 3:0 1 PM CDT 08/27/2024 10:39 AM CDT Narrative [facility] - 09/02/2024 8:17 AM CDT Dihydropyrimidine Dehydrogenase Gene Full Sequencing ([place]) Miscellaneous Lab Test us Zuleima Levine MD LAB GENETIC TESTING Final Result Performing Organization Address City/[facility]/ZIP Co de Phone Number [facility] [place] [employer] [place] [address] * CT Chest Abdomen Pelvis W Contrast [...] ur Yellow Yellow Clarity, ur Clear Clear [facility] Specific gravity, ur 1.020 1.003 - 1.030 [facility] pH, urine 6.0 [facility] Comment: Interpretive Data U rine pH is affected by diet, medications, systemic acid-base disturbances, and renal tubular function. pH may affect urinary stone formation. For example, urine pH below 6.0 may help reduce the tendency for calcium phosphate stones and pH greater than 6.0 may reduce the tendency for uric acid stone formation. Source: [employer] Current Interpretive Data was last revised on 2017 Protein, ur ql Negative Negative [facility] Glucose, ur ql Negative Negative [facility] Ketones, ur Negative Negative [facility] Bilirubin, ur Negative Negative [facility] Blood, ur Negative Negative [facility] Urobilinogen, ur <2.0 <2.0 mg/dL [facility] Nitrite, ur Negative Negative [facility] Leukocyte esterase, ur Trace(A) Negative [facility] UA reflex comment Reflex to microscopic UA will be performed. [facility] Urine 08/22/2024 6:20 AM CDT 08/22/2024 6:30 AM CDT Smith Sawyer MD LAB MICROBIOLOGY - GENERA L ORDERABLES Final Result Performing Organization Address [facility] Co de Phone Number [facility] Department [place] [employer] [place] [address] * (ABNORMAL) Urinalysis, microscopic only (08/22/2024 6:20 AM CDT) WBC, ur 0-5 0 - 5 /HPF RBC, ur 0-2 0 - 2 /HPF [facility] Epithelial cells, squamous, ur 1-5 0 - 5 /HPF [facility] Mucous, ur Present(A) [facility] Amorphous crystals, ur Trace(A) [facility] Culture Reflex Comment Reflex conditions for urine culture (WBC >10) not met. [facility] [facility] Urine 08/22/2024 6:20 AM CDT 08/22/2024 6:30 AM CDT Smith Sawyer MD LAB URINE ORDERABLES Lila l Result [facility] Department [place] [employer] [place] [address] * (ABNORMAL) Differential, auto (08/22/2024 2:30 AM CDT) Neutrophil abs 4.00 1.50 - 6.50 K/cumm Imm gran abs 0.04 0.00 - 0.10 K/cumm [facility] Lymphocyte abs 0.13(L) 0.80 - 3.30 K/cumm [facility] Monocyte abs 0.21 0.20 - 0.80 K/cumm [facility] Eosinophil abs 0.01 0.00 - 0.50 K/cumm [facility] Basophil abs 0.01 0.00 - 0.10 K/cumm [facility] Neutrophil pct 90.9 % [facility] Comment: Interpretive Data Percent cell count reference ranges are not reported, since discordance with absolute values may lead to misinterpretation of CBC data. Current Interpretive Data was last revised on 2017. Imm gran pct 0.9 % [facility] Comment: Interpretive Data Percent cell count reference ranges are not reported, since discordance with absolute values may lead to misinterpretation of CBC data. Current Interpretive Data was last revised on 2017. Lymphocyte pct 3.0 % [facility] Comment: Interpretive Data Percent cell count reference ranges are not reported, since discordance with absolute values may lead to misinterpretation of CBC data. Current Interpretive Data was last revised on 2017. Monocyte pct 4.8 % [facility] Comment: Interpretive Data Percent cell count reference ranges are not reported, since discordance with absolute values may lead to misinterpretation of CBC data. Current Interpretive Data was last revised on 2017. Eosinophil pct 0.2 % [facility] Comment: Interpretive Data Percent cell count reference ranges are not reported, since discordance with absolute values may lead to misinterpretation of CBC data. Current Interpretive Data was last revised on 2017. Basophil pct 0.2 % [facility] Comment: Interpretive Data Percent cell count reference ranges are not reported, since discordance with absolute values may lead to misinterpretation of CBC data. Current Interpretive Data was last revised on 2017. Blood 08/22/2024 2:30 AM CDT 08/22/2024 12:54 AM CDT us Smith Sawyer MD LAB BLOOD ORDERABLES Lila dawson Result [facility] Department [place] [address] * (ABNORMAL) CBC with auto differential (08/22/2024 2:30 AM CDT) Pathologist [facility] WBC 4.40 3.80 - 9.90 K/cumm Hgb 9.0(L) 13.0 - 17.5 g/dL [facility] Hct 25.0(L) 38.9 - 50.3 % [facility] Plt 168 150 - 400 K/cumm [facility] MPV 9.9 9.1 - 12.3 fL [facility] RBC 2.47(L) 4.30 - 5.80 M/cumm [facility] MCV 101.2(H) 81.3 - 96.4 fL [facility] MCH 36.4(H) 27.1 - 33.3 pg [facility] MCHC 36.0(H) 32.3 - 35.7 g/dL [facility] RDW CV 17.2(H) 11.1 - 14.9 % [facility] RDW SD 59.0(H) 35.7 - 48.1 fL [facility] NRBC abs 0.00 0.00 - 0.01 K/cumm [facility] Blood 08/22/2024 2:30 AM CDT 08/22/2024 12:54 AM CDT Smith Sawyer MD LAB BLOOD ORDERABLES Lila dawson Result [facility] Department [place] [address] * (ABNORMAL) eGFR (08/22/2024 12:28 AM CDT) Pathologist [facility] eGFR 58(L) >=60 mL/min/1. 73 m2 Comment: [...] ORDERABLES Lila l Result Performing Organization Address City/[facility] Co de Phone Number [facility] Department [place] [address] * Critical Result Callback Hematology (08/22/2024 12:28 AM CDT) Date Notified [id number] Time Notified 132 [facility] TestName INR [facility] Called/Read Back Naren [facility] Credentials RN [facility] Called By ELIZABETH [facility] Blood 08/22/2024 12:2 8 AM CDT 08/22/2024 1:15 AM CDT Smith Sawyer MD LAB BLOOD ORDERABLES Lila l Result [facility] Department [place] [address] * Thyroid Function [place] (08/22/2024 12:28 AM CDT) TSH 0.53 0.30 - 4.20 mcIUnit/mL Blood 08/22/2024 12:2 8 AM CDT 08/22/2024 12:55 AM CDT Smith Sawyer MD LAB BLOOD ORDERABLES Lila l Result Performing Organization Address [facility] de Phone Number [facility] [employer] [place] [address] * (ABNORMAL) aPTT (08/22/2024 12:28 AM CDT) [...] ORDERABLES Lila l Result Performing Organization Address [facility] de Phone Number [facility] [employer] [place] [address] * (ABNORMAL) Protime-INR (08/22/2024 12:28 AM CDT) PT 98.6(H) 9.7 - 13.0 sec INR 8.73(C) 0.90 - 1.20 [facility] Comment: REVIEWED Interpretive data Oral anticoagulant therapeutic [...] ORDERABLES Lila l Result Performing Organization Address [facility] Co de Phone Number [facility] [employer] [place] [address] * Type and screen (08/22/2024 12:28 AM CDT) Minna, indirect Negative ABO Rh A Positive [facility] Blood 08/22/2024 12:2 8 AM CDT 08/22/2024 1:00 AM CDT Narrative [facility] - 08/22/2024 2:10 AM CDT Has the patient had Daratumumab or Isatuximab in the past 6 months?->Unknown Smith Sawyer MD LAB BLOOD BANK TEST ORDER DEMETRIO Final Result Performing Organization Address City/[facility] Co de Phone Number [facility] [employer] [place] [address] * (ABNORMAL) Uric acid (08/22/2024 12:28 AM CDT) Pathologist [facility] Uric acid 8.4(H) 3.0 - 8.0 mg/dL Blood 08/22/2024 12:2 8 AM CDT 08/22/2024 12:55 AM CDT Narrative [facility] - 08/22/2024 1:31 AM CDT Saturday and only. Morning draw. . Smith Sawyer MD LAB BLOOD ORDERABLES Lila l Result Performing Organization Address [facility] Co de Phone Number [facility] [employer] [place] [address] * Phosphorus (08/22/2024 12:28 AM CDT) Phosphorus, pl 2.8 2.3 - 4.5 mg/dL Blood 08/22/2024 12:2 8 AM CDT 08/22/2024 12:55 AM CDT Smith Sawyer MD LAB BLOOD ORDERABLES Lila l Result Performing Organization Address City/[facility]/ZIP Co de Phone Number [facility] Department [place] [address] * (ABNORMAL) Lactate dehydrogenase (LD) (08/22/2024 12:28 AM CDT) [facility] Lactate dehydrogenase (LDH) 301(H) 100 - 250 Units/L Blood 08/22/2024 12:2 8 AM CDT 08/22/2024 12:55 AM CDT Narrative [facility] - 08/22/2024 1:31 AM CDT Saturday and only. Morning draw. Smith Sawyer MD LAB BLOOD ORDERABLES Lila l Result [facility] [place] [address] * Vitamin B12 (08/22/2024 12:28 AM CDT) [facility] Vitamin B12 760 230 - 1,250 pg/mL Blood 08/22/2024 12:2 8 AM CDT 08/22/2024 12:55 AM CDT Smith Sawyer MD LAB BLOOD ORDERABLES Lila l Result [facility] [place] [address] * (ABNORMAL) Comprehensive metabolic panel (08/22/2024 12:28 AM CDT) [facility] Sodium 138 135 - 145 mmol/L Potassium, pl 3.5 3.3 - 4.9 mmol/L [facility] Chloride 104 97 - 110 mmol/L [facility] CO2 23 22 - 32 mmol/L [facility] Anion gap 11 2 - 15 mmol/L [facility] BUN 40(H) 6 - 25 mg/dL [facility] Creatinine 1.29 0.80 - 1.30 mg/dL [facility] Glucose 154 70 - 199 mg/dL [facility] Comment: Interpretive Data Fasting glucose [...] 2022. Calcium 8.2(L) 8.5 - 10.3 mg/dL [facility] Bilirubin, total 0.9 0.1 - 1.2 mg/dL [facility] Protein, pl 5.3(L) 6.5 - 8.5 g/dL [facility] Albumin 3.3(L) 3.5 - 5.0 g/dL [facility] Alk phos 76 40 - 130 Units/L [facility] ALT 15 7 - 55 Units/L [facility] AST 29 10 - 50 Units/L [facility] Blood 08/22/2024 12:2 8 AM CDT 08/22/2024 12:55 AM CDT Smith Sawyer MD LAB BLOOD ORDERABLES Lila l Result [facility] Department [place] [address] * C. difficile testing Stool (08/21/2024 9:37 PM CDT) [facility] Result Negative Negative Toxin Result Negative Negative [facility] C. diff result Negative, free toxin Negative, free toxin [facility] C. diff interp Negative for toxigenic Clostridioides (Clostridium) difficile. Analysis was performed using a glutamate dehydrogenase antigen detection assay combined with a C. difficile toxin detection assay. [facility] Stool 08/21/2024 9:37 PM CDT 08/22/2024 1:47 AM CDT Smith Sawyer MD LAB MICROBIOLOGY - GENERA L ORDERABLES Final Result Performing Organization Address [facility] de Phone Number [facility] Department [place] [address] * Cytomegalovirus (CMV) DNA PCR, quantitative Blood (08/21/2024 9:37 PM CDT) [facility] CMV DNA Not Detected [facility] Comment: Interpretive Data: The quantifiable range of this assay is 34 IUnits/mL to 10,000,000 IUnits/mL (1.53 log IUnits/mL to 7.0 log IUnits/mL). Testing was performed by the [employer] 6800 CMV Test ([employer] Testing performed at [facility]. Current interpretive data was last revised on 2020. Blood 08/21/2024 9:37 PM CDT 08/21/2024 10:18 PM CDT Smith Sawyer MD LAB MICROBIOLOGY - [employer] L ORDERABLES Final Result Performing Organization Address [facility] Co de Phone Number [facility]AN [facility] Department [place] [address] [facility] * Norovirus PCR Stool (08/21/2024 9:37 PM CDT) [facility] Norovirus GI RNA Not Detected Not Detected [facility] Norovirus GII RNA Not Detected Not Detected [facility] Comment: Interpretive data: Testing performed at the [facility] Laboratory using the [employer] Xpert Norovirus Assay. This assay uses nucleic [...] 9:37 PM CDT 08/22/2024 2:20 AM CDT Result [facility] Smith Sawyer MD LAB MICROBIOLOGY - GENERA L ORDERABLES Final Result Performing Organization Address [facility] Co de Phone Number [facility] [place] [address] [facility] * Cryptosporidium and Giardia antigen assay Stool (08/21/2024 9:37 PM CDT) Giardia Ag Negative Negative Cryptosporidium Ag Negative Negative [facility] Comment: Interpretive data: Testing performed by the [facility] Microbiology Laboratory using an immunoassay that detects Cryptosporidium and Giardia antigens in stool specimens. If comprehensive examination for ova and parasites is required, please request Ova and Parasite Examination. Stool 08/21/2024 9:37 PM CDT 08/22/2024 1:47 AM CDT Result [facility] Smith Sawyer MD LAB MICROBIOLOGY - GENERA L ORDERABLES Final Result Performing Organization Address [facility] Co de Phone Number [facility] [place] [address] * Infection Prevention VRE Culture Stool (08/21/2024 9:37 PM CDT) Report Final Report: Negative Stool 08/21/2024 9:37 PM CDT 08/22/2024 6:17 AM CDT Narrative [facility] - 08/24/2024 7:43 AM CDT Surveillance culture for Infection Prevention purposes only; results indicate colonization, not infection requiring treatment. Testing performed by [facility] ([phone]). Result [facility] Gorge Vaughan MD PhD LAB MICROBIOLOGY - G ENERAL ORDERABLES Final Result Performing Organization Address [facility] Co de Phone Number [facility] Department [place] [address] * Stool culture Stool Rectum (08/21/2024 9:37 PM CDT) Direct Specimen Exam Shiga Toxin Testing: Antigen detection assay for Shiga-toxin NEGATIVE for Shiga Toxin 1 and Shiga Toxin 2. Report Final Report: No growth of enteric bacterial pathogens [facility] Stool (Rectum) 08/21/2024 9: 37 PM CDT 08/22/2024 1:47 AM CDT Narrative [facility] - 08/26/2024 2:52 PM CDT Specimen received in a sterile container. Testing performed by [facility] ([phone]). Routine stool cultures include procedures to detect Salmonella, Shigella, Edwardsiella, Aeromonas, Pleisiomonas, Campylobacter, Yersinia, E. coli O157, and Shiga-like toxins. Vibrio is cultured only upon special request. If Vibrio is suspected, please call the laboratory at [phone]. Interpretive data was last updated September 10, 2016. us Smith Sawyer MD LAB MICROBIOLOGY - GENERA L ORDERABLES Final Result Performing Organization Address [facility] Co de Phone Number [facility] Department [place] [address] * XR Chest 1 View (08/21/2024 4:43 [...] signed by: Chu Villanueva M.D. Lisa Tejeda [employer] IMG XR PROCEDURES Final R esult * (ABNORMAL) Respiratory pathogen panel Nasopharyngeal (08/21/2024 4:08 PM CDT) Pathologist [facility] Influenza A RNA Not Detected Not Detected Influenza B RNA Not Detected Not Detected [facility] RSV RNA Not Detected Not Detected [facility] COVID-19 RNA Not Detected Not Detected [facility] Coronavirus 229E RNA Not Detected Not Detected [facility] Coronavirus HKU1 RNA Detected(A) Not Detected [facility] Coronavirus NL63 RNA Not Detected Not Detected [facility] Coronavirus OC43 RNA Not Detected Not Detected [facility] Adenovirus DNA Not Detected Not Detected [facility] Metapneumovirus RNA Not Detected Not Detected [facility] Rhinovirus/Enterov irus RNA Not Detected Not Detected [facility] Parainfluenza 1 RNA Not Detected Not Detected [facility] Parainfluenza 2 RNA Not Detected Not Detected [facility] Parainfluenza 3 RNA Not Detected Not Detected [facility] Parainfluenza 4 RNA Not Detected Not Detected [facility] B. pertussis DNA Not Detected Not Detected [facility] B. parapertussis DNA Not Detected Not Detected [facility] C. pneumoniae DNA Not Detected Not Detected [facility] M. pneumoniae DNA Not Detected Not Detected [facility] Nasopharyngeal 08/21/2024 4: 08 PM CDT 08/21/2024 4:50 PM CDT Amy PIERCE [facility] - 08/21/2024 5:58 PM CDT Is the Patient experiencing symptoms consistent with COVID?->Yes Surveillance testing for transplant patient?->No Interpretive Data The [employer] FilmArray Respiratory Panel (RP2.1) assay is a [...] assay has FDA clearance for testing of [employer] swabs. The performance of additional specimen types has been assessed by the performing laboratory. The performance characteristics of this assay have been determined by [facility] Molecular Infectious Disease Laboratory. Current interpretive data was last revised on 22. Lisa Tejeda NP LAB MICROBIOLOGY - GENERA L ORDERABLES Final Result Performing Organization Address [facility] Co de Phone Number [facility] [place] [address] * (ABNORMAL) eGFR (08/21/2024 3:52 PM CDT) [...] ORDERABLES Lila l Result Performing Organization Address City/[facility]/ZIP Co de Phone Number [facility] [place] [address] * (ABNORMAL) Differential, auto (08/21/2024 3:52 PM CDT) Neutrophil abs 4.28 1.50 - 6.50 K/cumm Imm gran abs 0.03 0.00 - 0.10 K/cumm [facility] Lymphocyte abs 0.27(L) 0.80 - 3.30 K/cumm [facility] Monocyte abs 0.58 0.20 - 0.80 K/cumm [facility] Eosinophil abs 0.03 0.00 - 0.50 K/cumm [facility] Basophil abs 0.01 0.00 - 0.10 K/cumm [facility] Neutrophil pct 82.2 % [facility] Comment: Interpretive Data Percent cell count reference ranges are not reported, since discordance with absolute values may lead to misinterpretation of CBC data. Current Interpretive Data was last revised on 2017. Imm gran pct 0.6 % [facility] Comment: Interpretive Data Percent cell count reference ranges are not reported, since discordance with absolute values may lead to misinterpretation of CBC data. Current Interpretive Data was last revised on 2017. Lymphocyte pct 5.2 % [facility] Comment: Interpretive Data Percent cell count reference ranges are not reported, since discordance with absolute values may lead to misinterpretation of CBC data. Current Interpretive Data was last revised on 2017. Monocyte pct 11.2 % [facility] Comment: Interpretive Data Percent cell count reference ranges are not reported, since discordance with absolute values may lead to misinterpretation of CBC data. Current Interpretive Data was last revised on 2017. Eosinophil pct 0.6 % [facility] Comment: Interpretive Data Percent cell count reference ranges are not reported, since discordance with absolute values may lead to misinterpretation of CBC data. Current Interpretive Data was last revised on 2017. Basophil pct 0.2 % [facility] Comment: Interpretive Data Percent cell count reference ranges are not reported, since discordance with absolute values may lead to misinterpretation of CBC data. Current Interpretive Data was last revised on 2017. Blood 08/21/2024 3:52 PM CDT 08/21/2024 4:16 PM CDT Lisa Tejeda NP LAB BLOOD ORDERABLES Lila eunice Result [facility] Department [place] [address] * (ABNORMAL) CBC with auto differential (08/21/2024 3:52 PM CDT) [facility] WBC 5.20 3.80 - 9.90 K/cumm Hgb 9.7(L) 13.0 - 17.5 g/dL [facility] Hct 26.7(L) 38.9 - 50.3 % [facility] Plt 204 150 - 400 K/cumm [facility] MPV 9.9 9.1 - 12.3 fL [facility] RBC 2.67(L) 4.30 - 5.80 M/cumm [facility] MCV 100.0(H) 81.3 - 96.4 fL [facility] MCH 36.3(H) 27.1 - 33.3 pg [facility] MCHC 36.3(H) 32.3 - 35.7 g/dL [facility] RDW CV 17.3(H) 11.1 - 14.9 % [facility] RDW SD 58.5(H) 35.7 - 48.1 fL [facility] NRBC abs 0.00 0.00 - 0.01 K/cumm [facility] Blood 08/21/2024 3:52 PM CDT 08/21/2024 4:16 PM CDT us Lisa Tejeda [employer] LAB BLOOD ORDERABLES Lila l Result [facility] Department [place] [address] * CRP (acute phase) (08/21/2024 3:52 PM CDT) [facility] CRP 3.7 <=10.0 mg/L Blood 08/21/2024 3:52 PM CDT 08/21/2024 4:16 PM CDT us Gorge Vaughan MD PhD LAB BLOOD ORDERABLES Final Result [facility] Department [place] [address] * (ABNORMAL) Comprehensive metabolic panel (08/21/2024 3:52 PM CDT) Sodium 136 135 - 145 mmol/L Potassium, pl 3.3 3.3 - 4.9 mmol/L [facility] Chloride 100 97 - 110 mmol/L [facility] CO2 25 22 - 32 mmol/L [facility] Anion gap 11 2 - 15 mmol/L [facility] BUN 40(H) 6 - 25 mg/dL [facility] Creatinine 1.37(H) 0.80 - 1.30 mg/dL [facility] Glucose 123 70 - 199 mg/dL [facility] Comment: Interpretive Data Fasting glucose [...] 2022. Calcium 8.8 8.5 - 10.3 mg/dL [facility] Bilirubin, total 1.1 0.1 - 1.2 mg/dL [facility] Protein, pl 5.7(L) 6.5 - 8.5 g/dL [facility] Albumin 3.9 3.5 - 5.0 g/dL [facility] Alk phos 88 40 - 130 Units/L [facility] ALT 16 7 - 55 Units/L [facility] AST 26 10 - 50 Units/L [facility] Blood 08/21/2024 3:52 PM CDT 08/21/2024 4:16 PM CDT Lisa Tejeda NP LAB BLOOD ORDERABLES Lila l Result Performing Organization Address [facility] Co de Phone Number [facility] Department [place] [address] * POC Blood Gas and Chemistries, Arterial - (08/21/2024 3:50 PM CDT) Lactate POC 2.0 0.7 - 2.0 mmol/L Blood 08/21/2024 3:50 PM CDT 08/21/2024 3:50 PM CDT us Gorge Vaughan MD PhD LAB POCT ORDERABLES - DEVICE Final Result Performing Organization Address [facility] Co de Phone Number [facility] [employer] [place] [address] * Critical Result Callback Hematology (08/21/2024 3:45 PM CDT) Date Notified [id number] Time Notified 1649 [facility] TestName INR [facility] Called/Read Back Luis Ramirez [facility] Credentials RN [facility] Called By PD [facility] Blood 08/21/2024 3:45 PM CDT 08/21/2024 4:06 PM CDT us Lisa Tejeda ASPHALT ROLLER OPERATOR LAB BLOOD ORDERABLES Lila l Result Performing Organization Address [facility] Co de Phone Number [facility] Department [place] [address] * Blood culture Blood Peripheral (08/21/2024 3:45 PM CDT) Report Final Report: No growth Blood (Peripheral) 08/21/2024 3:45 PM CDT 08/21/2024 4:33 PM CDT Narrative [facility] - 08/26/2024 7:00 AM CDT 1. [...] performance characteristics have been verified by the [facility]biology [facility]. For questions about this culture, contact the Microbiology Laboratory at [phone]. Interpretive data was last revised on 24. Lisa Tejeda NP LAB MICROBIOLOGY - GENERA L ORDERABLES Final Result [facility] Department [place] [address] * Blood culture Blood Peripheral (08/21/2024 3:45 PM CDT) Report Final Report: No growth Blood (Peripheral) 08/21/2024 3:45 PM CDT 08/21/2024 4:33 PM CDT [facility] - 08/26/2024 7:00 AM CDT 1. [...] performance characteristics have been verified by the [facility]biology [facility]. For questions about this culture, contact the Microbiology Laboratory at [phone]. Interpretive data was last revised on 24. Lisa Tejeda NP LAB MICROBIOLOGY - GENERA L ORDERABLES Final Result Performing Organization Address [facility] Co de Phone Number [facility] Department [place] [employer] [place] [address] * (ABNORMAL) aPTT (08/21/2024 3:45 PM CDT) [...] ORDERABLES Lila l Result Performing Organization Address [facility] Co de Phone Number [facility] Department [place] [employer] [place] [address] * (ABNORMAL) Thrombin time (08/21/2024 3:45 PM CDT) Thrombin time 15.2(H) 10.0 - 15.0 sec Blood 08/21/2024 3:45 PM CDT 08/21/2024 4:06 PM CDT Lisa Tejeda NP LAB BLOOD ORDERABLES Lila l Result Performing Organization Address [facility] Co de Phone Number [facility] [place] [address] * (ABNORMAL) Protime-INR (08/21/2024 3:45 PM CDT) PT >100.0(H) 9.7 - 13.0 sec INR >9.00(C) 0.90 - 1.20 [facility] Comment: No clot detected in sample. [...] NP LAB BLOOD ORDERABLES Lila dawson Result Performing Organization Address [facility] de Phone Number [facility] [place] [address] * Urinalysis reflex to microscopic (08/20/2024 1:27 AM CDT) Color, ur Straw Yellow Clarity, ur Clear Clear [facility] Specific gravity, ur 1.022 1.003 - 1.030 [facility] pH, urine 6.0 [facility] Comment: Interpretive Data U rine pH is affected by diet, medications, systemic acid-base disturbances, and renal tubular function. pH may affect urinary stone formation. For example, urine pH below 6.0 may help reduce the tendency for calcium phosphate stones and pH greater than 6.0 may reduce the tendency for uric acid stone formation. Source: [facility] [employer] Current Interpretive Data was last revised on 2017 Protein, ur ql Negative Negative [facility] Glucose, ur ql Negative Negative [facility] Ketones, ur Negative Negative [facility] Bilirubin, ur Negative Negative [facility] Blood, ur Negative Negative [facility] Urobilinogen, ur <2.0 <2.0 mg/dL [facility] Nitrite, ur Negative Negative [facility] Leukocyte esterase, ur Negative Negative [facility] UA reflex comment Reflex conditions for microscopic UA not met. [facility] Urine 08/20/2024 1:27 AM CDT 08/20/2024 1:48 AM CDT us Leela Sandhu ASPHALT ROLLER OPERATOR LAB URINE ORDERABLES Lila l Result Performing Organization Address [facility] Co de Phone Number [facility] Department [place] [address] * Urine culture Urine, clean voided (08/20/2024 1:27 AM CDT) Report Final Report: No growth Urine, clean voided 08/20/2024 1:27 AM CDT 08/20/2024 11:58 AM CDT Narrative [facility] - 08/21/2024 1:10 PM CDT Indications for Culture:->Other (specify) Other Indication:->immunocompromised Testing performed by [facility]biology Laboratory ([phone]) us Leela Sandhu ASPHALT ROLLER OPERATOR LAB MICROBIOLOGY - GENERA L ORDERABLES Final Result Performing Organization Address [facility] Co de Phone Number [facility] Department [place] [address] * (ABNORMAL) POC Blood Gas and Chemistries, Arterial - (08/19/2024 9:48 PM CDT) Lactate POC 2.1(H) 0.7 - 2.0 mmol/L Blood 08/19/2024 9:48 PM CDT 08/19/2024 9:48 PM CDT us Gilberto Martinez MD LAB POCT ORDERABLES - DEVICE Final Result [facility] Department [place] [address] * ECG 12 lead (08/19/2024 9:34 PM CDT) Ventricular Rate EKG/Min 60 BPM [facility] Atrial Rate 60 BPM [facility] PA-Interval (MSEC) 210 ms [facility] QRS-Interval (MSEC) 98 ms [facility] QT-Interval (MSEC) 462 ms [facility] QTc 462 ms [facility] P Flora 15 degrees [facility] R Flora -29 degrees [facility] T Flora 155 degrees [facility] Diagnosis Atrial-paced rhythm with prolonged AV conduction ST & T wave abnormality, consider lateral ischemia Abnormal ECG When compared with ECG of 08-JUN-2024 07:48, No significant change was found Confirmed by RL BHATT M.D ([id number]) on 08/20/2024 5:01:40 PM [facility] 08/19/2024 9:34 PM CDT 08/20/2024 5:01 PM CDT us Leela Sandhu ASPHALT ROLLER OPERATOR ECG ORDERABLES Final Res ult Performing Organization Address [facility]/ZIP Co de Phone Number [facility] * eGFR (08/19/2024 9:03 PM CDT) eGFR [...] 08/19/2024 9:56 PM CDT us Leela Sandhu ASPHALT ROLLER OPERATOR LAB BLOOD ORDERABLES Lila eunice Result [facility] Department [place] [address] * (ABNORMAL) Differential, auto (08/19/2024 9:03 PM CDT) Neutrophil abs 6.02 1.50 - 6.50 K/cumm Imm gran abs 0.04 0.00 - 0.10 K/cumm [facility] Lymphocyte abs 0.23(L) 0.80 - 3.30 K/cumm [facility] Monocyte abs 0.48 0.20 - 0.80 K/cumm [facility] Eosinophil abs 0.01 0.00 - 0.50 K/cumm [facility] Basophil abs 0.00 0.00 - 0.10 K/cumm [facility] Neutrophil pct 88.8 % [facility] Comment: Interpretive Data Percent cell count reference ranges are not reported, since discordance with absolute values may lead to misinterpretation of CBC data. Current Interpretive Data was last revised on 2017. Imm gran pct 0.6 % [facility] Comment: Interpretive Data Percent cell count reference ranges are not reported, since discordance with absolute values may lead to misinterpretation of CBC data. Current Interpretive Data was last revised on 2017. Lymphocyte pct 3.4 % [facility] Comment: Interpretive Data Percent cell count reference ranges are not reported, since discordance with absolute values may lead to misinterpretation of CBC data. Current Interpretive Data was last revised on 2017. Monocyte pct 7.1 % [facility] Comment: Interpretive Data Percent cell count reference ranges are not reported, since discordance with absolute values may lead to misinterpretation of CBC data. Current Interpretive Data was last revised on 2017. Eosinophil pct 0.1 % [facility] Comment: Interpretive Data Percent cell count reference ranges are not reported, since discordance with absolute values may lead to misinterpretation of CBC data. Current Interpretive Data was last revised on 2017. Basophil pct 0.0 % [facility] Comment: Interpretive Data Percent cell count reference ranges are not reported, since discordance with absolute values may lead to misinterpretation of CBC data. Current Interpretive Data was last revised on 2017. Blood 08/19/2024 9:03 PM CDT 08/19/2024 9:56 PM CDT Leela Sandhu ASPHALT ROLLER OPERATOR LAB BLOOD ORDERABLES Lila dawson Result Performing Organization Address City/State/[facility] Co de Phone Number [facility] Department [place] [address] * Respiratory pathogen panel Nasopharyngeal (08/19/2024 9:03 PM CDT) Pathologist [facility] Influenza A RNA Not Detected Not Detected Influenza B RNA Not Detected Not Detected [facility] RSV RNA Not Detected Not Detected [facility] COVID-19 RNA Not Detected Not Detected [facility] Coronavirus 229E RNA Not Detected Not Detected [facility] Coronavirus HKU1 RNA Not Detected Not Detected [facility] Coronavirus NL63 RNA Not Detected Not Detected [facility] Coronavirus OC43 RNA Not Detected Not Detected [facility] Adenovirus DNA Not Detected Not Detected [facility] Metapneumovirus RNA Not Detected Not Detected [facility] Rhinovirus/Enterov irus RNA Not Detected Not Detected [facility] Parainfluenza 1 RNA Not Detected Not Detected [facility] Parainfluenza 2 RNA Not Detected Not Detected [facility] Parainfluenza 3 RNA Not Detected Not Detected [facility] Parainfluenza 4 RNA Not Detected Not Detected [facility] B. pertussis DNA Not Detected Not Detected [facility] B. parapertussis DNA Not Detected Not Detected [facility] C. pneumoniae DNA Not Detected Not Detected [facility] M. pneumoniae DNA Not Detected Not Detected [facility] Nasopharyngeal 08/19/2024 9: 03 PM CDT 08/19/2024 10:21 PM CDT Narrative [facility] - 08/19/2024 11:23 PM CDT Is the Patient experiencing symptoms consistent with COVID?->No Surveillance testing for transplant patient?->No Interpretive Data The [employer] FilmArray Respiratory Panel (RP2.1) assay is a [...] assay has FDA clearance for testing of ASPHALT ROLLER OPERATOR swabs. The performance of additional specimen types has been assessed by the performing laboratory. The performance characteristics of this assay have been determined by [facility] Molecular Infectious Disease Laboratory. Current interpretive data was last revised on 22. us Leela Sandhu ASPHALT ROLLER OPERATOR LAB MICROBIOLOGY - GENERA L ORDERABLES Final Result Performing Organization Address [facility] Co de Phone Number [facility] Department [place] [address] * (ABNORMAL) CBC with auto differential (08/19/2024 9:03 PM CDT) WBC 6.78 3.80 - 9.90 K/cumm Hgb 10.2(L) 13.0 - 17.5 g/dL [facility] Hct 28.4(L) 38.9 - 50.3 % [facility] Plt 193 150 - 400 K/cumm [facility] MPV 10.1 9.1 - 12.3 fL [facility] RBC 2.78(L) 4.30 - 5.80 M/cumm [facility] MCV 102.2(H) 81.3 - 96.4 fL [facility] MCH 36.7(H) 27.1 - 33.3 pg [facility] MCHC 35.9(H) 32.3 - 35.7 g/dL [facility] RDW CV 17.2(H) 11.1 - 14.9 % [facility] RDW SD 59.2(H) 35.7 - 48.1 fL [facility] NRBC abs 0.00 0.00 - 0.01 K/cumm [facility] Blood 08/19/2024 9:03 PM CDT 08/19/2024 9:56 PM CDT us Leela Sandhu ASPHALT ROLLER OPERATOR LAB BLOOD ORDERABLES Lila l Result Performing Organization Address [facility]/ZIP Co de Phone Number [facility] [place] [address] * Phosphorus (08/19/2024 9:03 PM CDT) [facility] Phosphorus, pl 3.1 2.3 - 4.5 mg/dL Blood 08/19/2024 9:0 3 PM CDT 08/19/2024 9:56 PM CDT us Gilberto Martinez MD LAB BLOOD ORDERABLES Final Re sult Performing Organization Address City/[facility]/[place] [address] * Magnesium (08/19/2024 9:03 PM CDT) [facility] Magnesium 1.8 1.4 - 2.5 mg/dL Blood 08/19/2024 9:03 PM CDT 08/19/2024 9:56 PM CDT us Gilberto Martinez MD LAB BLOOD ORDERABLES Final Re sult Performing Organization Address [facility] [place] [address] * Lipase (08/19/2024 9:03 PM CDT) [facility] Lipase 42 10 - 99 Units/L Blood 08/19/2024 9:03 PM CDT 08/19/2024 9:56 PM CDT us Leela Sandhu ASPHALT ROLLER OPERATOR LAB BLOOD ORDERABLES Lila l Result Performing Organization Address City/[facility]/[place] [address] * (ABNORMAL) Lactate dehydrogenase (LD) (08/19/2024 9:03 PM CDT) Lactate dehydrogenase (LDH) 434(H) 100 - 250 Units/L Blood 08/19/2024 9:03 PM CDT 08/19/2024 9:56 PM CDT Leela Sandhu ASPHALT ROLLER OPERATOR LAB BLOOD ORDERABLES Lila l Result Performing Organization Address [facility] Co de Phone Number [facility] Department [place] [address] * Amylase (08/19/2024 9:03 PM CDT) Pathologist [facility] Amylase 92 30 - 99 Units/L Blood 08/19/2024 9:03 PM CDT 08/19/2024 9:56 PM CDT Leela Sandhu ASPHALT ROLLER OPERATOR LAB BLOOD ORDERABLES Lila l Result Performing Organization Address [facility] de Phone Number [facility] Department [place] [address] * (ABNORMAL) Comprehensive metabolic panel (08/19/2024 9:03 PM CDT) Pathologist [facility] Sodium 133(L) 135 - 145 mmol/L Potassium, pl 3.9 3.3 - 4.9 mmol/L [facility] Chloride 97 97 - 110 mmol/L [facility] CO2 24 22 - 32 mmol/L [facility] Anion gap 12 2 - 15 mmol/L [facility] BUN 44(H) 6 - 25 mg/dL [facility] Creatinine 1.17 0.80 - 1.30 mg/dL [facility] Glucose 139 70 - 199 mg/dL [facility] Comment: Interpretive Data Fasting glucose [...] 2022. Calcium 8.9 8.5 - 10.3 mg/dL [facility] Bilirubin, total 1.2 0.1 - 1.2 mg/dL [facility] Protein, pl 6.2(L) 6.5 - 8.5 g/dL [facility] Albumin 3.8 3.5 - 5.0 g/dL [facility] Alk phos 91 40 - 130 Units/L [facility] ALT 21 7 - 55 Units/L [facility] AST 32 10 - 50 Units/L [facility] Blood 08/19/2024 9:03 PM CDT 08/19/2024 9:56 PM CDT us Leela Sandhu ASPHALT ROLLER OPERATOR LAB BLOOD ORDERABLES Lila dawson Result [facility] Department [place] [address] * DEVICE CHECK - REMOTE (08/17/2024 10:56 [...] to JC Episodes last 90 days/Comments: AF [place] <1 %, longest duration 1 minute 54 [...] Protime-INR (08/17/2024 10:34 AM CDT) INR 2.8(H) QUALIA (formerly known as LocalResponse)[facility] [place] Comment: Reference Range 0.9-1.1 Moderate-intensity Warfarin Therapy 2.0-3.0 Higher-intensity Warfarin Therapy 3.0-4.0 PT 27.6(H) 9.0 - 11.5 sec Ak?Lex [place] Comment: For additional information, please refer to http://education.[employer]/faq/TME536 (This link is being provided for informational/ educational purposes only.) Blood 08/17/2024 10:3 4 AM CDT 08/17/2024 10:34 AM CDT Narrative [facility] - 08/17/2024 6:58 PM CDT FASTING:NO FASTING: NO Chris Hart MD LAB BLOOD ORDERABLES Final Result Performing Organization Address City/[facility]/ZIP Co de Phone Number [facility] [address] [place] [address] * [place] ERCP Biliary Duct (08/07/2024 3:03 PM CDT) Narrative [place] - 08/07/2024 3:03 PM CDT The images from this study are not interpreted by Radiology. Please refer to the physician's procedure / OR operative note. Chris Holcomb MD IMG FLUOROSCOPY PROCEDURES Final Result [facility] * ERCP (08/07/2024 11:21 AM CDT) [...] Two biliary stents were visible on the pediatric speech therapist film. The esophagus was successfully intubated under [...] 0 Note Initiated On: 08/07/2024 11:21 AM Chris Holcomb MD ENDOSCOPY PROCEDURES Final Result * (ABNORMAL) Hemoglobin A1c (06/22/2024 2:10 PM OSS ARCHITECT) HbA1c 7.9(H) 5.1 - 5.6 % [facility] Comment: HBA1C 5.1 - 5.6 = NORMAL HBA1C 5.7 - 6.4 = PREDIABETES HBA1C >=6.5 = PROVISIONAL DIAGNOSIS OF DIABETES Estimated Average Glucose 180 mg/dL [facility] Blood 06/22/2024 2:10 PM OSS ARCHITECT 06/22/2024 3:15 PM OSS ARCHITECT Lex Perez MD LAB BLOOD ORDERABLES Final Resu lt Performing Organization Address City/[facility]/ZIP Co de Phone Number [facility] CORE [facility] * Hepatitis C antibody Blood (06/08/2024 7:28 AM OSS ARCHITECT) Hep C Ab Nonreactive Nonreactive Comment:Antibodies to HCV no t detected. Does NOT exclude the possibility of recent exposure to HCV. Current interpretive data was last revised on 22 Blood 06/08/2024 7:28 AM OSS ARCHITECT 06/08/2024 8:06 AM OSS ARCHITECT Narrative [facility] - 06/08/2024 8:55 AM OSS ARCHITECT Please add the following comment to each lab: This lab is being obtained as part of a liver transplant evaluation, is time sensitive, and should only be drawn during the evaluation visit at [facility] Lab. Katie Reeder MD LAB MICROBIOLOGY - GENERAL ORDER DEMETRIO Final Result Performing Organization Address [facility] Co de Phone Number [facility] Department [place] [address] * (ABNORMAL) Lipid panel (06/08/2024 7:28 AM OSS ARCHITECT) Pathologist [facility] Cholesterol 176 30 - 199 mg/dL [...] revised on 2017. Triglycerides 266(H) <=149 mg/dL [facility] Comment: Interpretive Data Ages < or [...] revised on 2017. HDL 70 >=40 mg/dL [facility] Comment: Interpretive Data Ages < or [...] on 2017. LDL, calculated 64 <=129 mg/dL [facility] Comment: Interpretive Data Ages < or [...] 2004;110:227 3. Sammy Drake al. DEBBIE Cardiol. 2019September 03;5(5):540-548. doi: 10.1001/jamacardio.2020.0013 Current Interpretive Data was last revised on 2023. Non-HDL Cholesterol 106 mg/dL [facility] Comment: Interpretive Data Ages < or [...] last revised on 2017. Chol/HDL ratio 3 [facility] Blood 06/08/2024 7:28 AM OSS ARCHITECT 06/08/2024 8:07 AM OSS ARCHITECT Narrative [facility] - 06/08/2024 8:54 AM OSS ARCHITECT This lab is being obtained as part of a liver transplant evaluation, is time sensitive, and should only be drawn during the evaluation visit at [facility] Lab. us Katie Reeder MD LAB BLOOD ORDERABLES Final Resul t 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 ADVANCE DIRECTIVE 01/23/2024 3:15 PM POWER OF HOTEL MAINTENANCE WORKER-MEDICAL ADVANCE DIRECTIVE 01/19/2024 12:41 PM MORALES R OF HOTEL MAINTENANCE WORKER-MEDICAL * Full Code (Latest Code Status on File) Date Activated Date Inactivated Comments 10/15/2024 7:56 PM 10/23/2024 7:18 PM * Full Code Date Activated Date Inactivated Comments 08/28/2024 6:42 PM 09/07/2024 8:30 PM * LIMITED - No CPR Date Activated Date Inactivated Comments 08/21/2024 7:32 PM 08/28/2024 6:42 PM * Full Code Date Activated Date Inactivated Comments 08/07/2024 1:42 PM 08/07/2024 6:37 PM * Full Code Date Activated Date Inactivated Comments 05/18/2024 9:19 AM 05/18/2024 5:50 PM Care Teams Riveter Portable Machine Relationship Specialty Start Date End Date Gilberto Martinez MD [address] [facility] [address] [place] [address] PCP - General 07/11/16 Zane Richey III, MD [address] [facility] [address] [place] [address] Consulting Physician Cardiology 05/18/21 Raudel Childers MD [phone] [place] [address] Consulting Physician Colon and Rectal Surgery 12/26/21 Chris Hart MD [address] [address] Patient Services Clerk Cardiology 03/17/24 Charlee Mcmillan RMA Surgical Prehabilitation and Readiness (SPAR) Coordinator 06/11/24 Agustina Li MD PhD [id number] [place] [address] Medical Oncologist/It Security Specialist Medical Oncology 09/09/24
--- OUTSIDE RECORDS SUMMARY | 2024-11-05 19:15 | XMS_ITS | Encounter Summary ---
Author Organization [facility] Healthcare Address [address] [place] [address] Care Team Providers Care Plastic Fixture Builder Name Role Phone Gilberto Martinez MD Primary Care Provider Rossi BLACK MD, Zane Morataya Unavailable [phone] Raudel Childers MD Unavailable [phone] Chris Hart MD Unavailable Charlee Mcmillan Unavailable Unavailable Agustina Li MD PhD Unavailable [phone] Reason for Visit * Auth/Cert (Routine) Specialty Diagnoses / Procedures Referred By Herminia t Referred To Contact Referral ID Status Reason Start Date Expiration Date Visits Re quested Visits Authorized [id number] 1 60 Encounter Details Date Type Department Care Team (Late st Contact Info) Description 11/05/2024 12:00 PM CDT Home Care Visit [address] [address] [address] [place] [address] Hannah Roque, OT OT OASIS DISCHARGE Social History Tobacco Use Types Packs/Day Years [...] materials from doctor or pharmacy Never 11/05/2024 [facility] Utilities Answer Date Recorded In the past 12 months has th e [employer], gas, oil, or water company threatened to [...] How often do you attend chur or lutheran services? More than 4 times [...] Date Recorded PHQ-2 Total Score 0 10/19/2024 [facility] of Occupat ional Health - Occupational Stress [...] time in the past 12 m [facility], were you homeless or living in a snf (including now)? No 10/19/2024 Personal Safety Answer Date Recorded Have you ever been in or are you currently in a harmful physical or emotional relationship or is someone making you feel afraid or unsafe? 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 and Discharge planning for this visit as OT goals adequately addressed Pt and cgs agree to OT discharge and HH agency discharge Pt. in agreement with HHOT d/c, HH agency d/c and POC 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) documented as of this encounter Visit Diagnoses Not on filedocumented in this encounter Home Health Visit - Care Plan Visit Details Visit Type -OT OASIS Dischar ge Discipline -Occupational Therapy Problems Problem Description Start Date Status Goals Interventions Pressure Prevention Disciplines: Skilled Disciplines Pressure Prevention [...] visit Disciplines: Skilled Disciplines, SN, PT, OT, BILL OF LADING CLERK, CAPITAL PROJECT ENGINEER Monitor patient's vital signs every home health [...] goal intervention scheduled/documen sunil in this visit OT Alteration in Coping Disciplines: Occupational Therapy Impaired ability to cope with current stressors 09/10/2024 Active 1 goal linked to scheduled/documen sunil intervention 1 problem intervention scheduled/documen sunil in this visit OT Activity Tolerance/Energy Conservation Disciplines: Occupational Therapy Impaired activity tolerance for functional activity 09/10/2024 Active 1 goal linked to scheduled/documen sunil intervention 1 problem intervention scheduled/documen sunil in this visit OT Impaired UE Function and/or Fine Motor Skills Disciplines: Occupational Therapy Impaired functional use of upper extremity 09/10/2024 Active 1 goal linked to scheduled/documen sunil intervention 1 problem intervention scheduled/documen sunil in this visit OT Impaired IADLs Disciplines: Occupational Therapy Impaired independence in house management/homema saman activities 09/10/2024 Active 1 goal linked to scheduled/documen sunil intervention OT Impaired Functional Mobility/Balance Disciplines: Occupational Therapy Impaired functional mobility/balance 09/10/2024 Active 2 goals linked to scheduled/documen sunil interventions 1 problem intervention scheduled/documen sunil in this visit Goals Goal Associated Problem Outcome Goal Met? Visit Notes Prevent development of pressure injuries Description: tear down worker goal: The patient will maintain intact skin [...] visit during episode of care Description: Home respiratory clinician to measure vital signs during every home [...] pain has been reduced or controlled Description: Patient/caregiver/fami ly will verbalize satisfaction with the patients level of pain and symptom control. Pain No Improved management of stressors Description: Patient will demonstrate improved ability to perform ADL's and IADL's and/ or manage pain by utilizing relaxation strategies by 10/24/24 OT Alteration in Coping Completed Yes Patient will demonstrate improved ability to perform ADL's and IADL's and/ or manage pain by utilizing relaxation strategies by 10/24/24. completed Improvement in activity tolerance Description: Using energy conservation techniques, patient to perform ADL's and IADL's with a score of 11 or less on the JOSE scale using energy conservation techniques by 10/24/24 OT Activity Tolerance/Energy Conservation Completed Yes Using energy conservation techniques, patient to perform ADL's and IADL's with a score of 11 or less on the JOSE scale using energy conservation techniques by 10/24/24. Pt. rates ADL's and IADL's as a light activity which is an 11 on the JOSE scale Performance with HEP Description: Patient/caregiver to perform progressed HEP for UE function and/or fine motor skills by 10/24/24 OT Impaired UE Function and/or Fine Motor Skills Completed Yes Patient/caregiver to perform progressed HEP for UE function and/or fine motor skills by 10/24/24. Pt. indep with HEP. Pt. is using 3lbs weights with 10 reps Improvement in IADL performance Description: Patient to perform light house management/homemaking activities with mod Iby 10/24/24 OT Impaired IADLs Completed Yes Patient to perform light house management/homemakin g activities with mod Iby 10/24/24. Pt. is completing light IADL's with mod I and starting to complete some mod IADL's with mod I Improve balance during functional activities Description: Patient will tolerate and safely perform/participate in ADL's and IADL's by 10/24/24 OT Impaired Functional Mobility/Balance Completed Yes Patient will tolerate and safely perform/participate in ADL's and IADL's by 10/24/24. Pt. stated that his balance is better. Pt. is ambulating with noting at this time Obtaining and use of assistive device/DME Description: Patient to perform ADL's and IADL's with assistive device/DME and mod I by 10/24/24 OT Impaired Functional Mobility/Balance Completed Yes Patient to perform ADL's and IADL's with assistive device/DME and mod I by 10/24/24. completed Interventions Intervention Associated Problem/Goal Status Variance Visit [...] Problem:Pressure Prevention Goal:Prevent development of pressure injuries Scheduled Oxygen Safety Education Description: Instruct patient/caregiver on oxygen use and safety precautions such as no smoking, posting oxygen sign, staying at least 10 feet from open flames, avoid using oil-based products, and proper storage of portable tanks. Instruc t patient to call [employer] with oxygen issues or malfunctions. Problem:Oxygen Safety Education Goal:Demonstrate safe oxygen usage Scheduled Monitor Vital Signs Description: Monitor blood pressure, [...] Precautions/Safety Concerns Goal:Demonstrate fall and safety precautions Scheduled Instruct on pain management techniques Description: Instruct in pharmacologic and nonpharmacologic pain management techniques. Problem:Pain Goal:Report that pain has been reduced or controlled Scheduled Instruct in relaxation strategies Description: Instruct patient/caregiver in relaxation strategies. Problem:OT Alteration in Coping Completed Educated pt. on the importance of participating in activities in which he enjoys. Pt. demonstrated good understanding of information Energy Conservation Education Description: Instruct patient/caregiver in techniques for improved activity tolerance Problem:OT Activity Tolerance/Energy Conservation Completed Educated pt. on the importance of listening to your body and not doing to much at once. Pt. demonstrated good understanding of information Home Exercise Program (HEP) Description: Instruct patient/caregiver and perform HEP. Problem:OT Impaired UE Function and/or Fine Motor Skills Completed Educated pt. on how to progress HEP. Pt. demonstrated good understanding of information Balance Activities Description: Balance Activities. Problem:OT Impaired Functional Mobility/Balance Completed Educated pt. on how he can add laps around the kitchen and going up and down the downstairs steps when he gets up to do things to help increase balance and leg strengthen. Pt. demonstrated good understanding of information documented in this encounter Care Teams Plastic Fixture Builder Relationship Specialty Start Date End Date Gilberto Martinez MD [address] [facility] [address] [place] [address] PCP - General 07/11/16 Zane Richey III, MD [address] [facility] [address] [place] [address] Consulting Physician Cardiology 05/18/21 Raudel Childers MD [address] [facility] [id number] [place] [address] Consulting Physician Colon and Rectal Surgery 12/26/21 Chris Hart MD [address] [facility] [address] [place] [address] Disability Examiner Cardiology 03/17/24 Charlee Mcmillan RMA Surgical Prehabilitation and Readiness (SPAR) Coordinator 06/11/24 Agustina Li MD PhD [id number] [place] [address] Medical Oncologist/Meteorology Professor Medical Oncology 09/09/24 documented as of this encounter
--- OUTSIDE RECORDS SUMMARY | 2024-11-05 19:15 | XMS_ITS | Encounter Summary ---
Author Organization [facility] Healthcare Address [address] [place] [address] Care Team Providers Care Outpatient Program Coordinator Name Role Phone Gilberto Martinez MD Primary Care Provider Rossi BLACK MD, Zane Morataya Unavailable [phone] Raudel Childers MD Unavailable [phone] Chris Hart MD Unavailable Charlee Mcmillan Unavailable Unavailable Agustina Li MD PhD Unavailable Encounter Details Date Type Department Care Team (Late st Contact Info) Description 11/05/2024 Telephone [facility] Transplant Liver [address] [address] [phone] [place] [address] Jennifer Gamboa Social History Tobacco Use Types Packs/Day Years [...] materials from doctor or pharmacy Never 11/05/2024 [facility] Utilities Answer Date Recorded In the past [...] How often do you attend chur or worship services? More than 4 times [...] Date Recorded PHQ-2 Total Score 0 10/19/2024 [facility] [place] of Occupat ional [facility] - Occupational Stress Questionnaire Answer Date Recorded [...] any time in the past 12 m [facility], were you homeless or living in a usp (including now)? No 10/19/2024 Personal Safety Answer Date Recorded Have you ever been in or are you currently in a harmful physical or emotional relationship or is someone making you feel afraid or unsafe? 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 Gender Identity Male 12/06/2019 4:39 PM CDT Sexual Orientation Straight 12/06/2019 4: 39 PM CDT documented as of this encounter Plan of Treatment Scheduled Procedures Name Priority Associated Diagnoses Date/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) documented as of this encounter Visit Diagnoses Not on filedocumented in this encounter Care Teams Outpatient Program Coordinator Relationship Specialty Start Date End Date Gilberto Martinez MD [address] [place] [address] PCP - General 07/11/16 Zane Richey III, MD [address] [place] [address] Consulting Physician Cardiology 05/18/21 Raudel Childers MD [address] [facility] [id number] [place] [address] Consulting Physician Colon and Rectal Surgery 12/26/21 Chris Hart MD [address] [facility] [address] [place] [address] Logging Assistant Cardiology 03/17/24 Charlee Mcmillan RMA Surgical Prehabilitation and Readiness (SPAR) Coordinator 06/11/24 Agustina Li MD PhD [id number] [place] [address] Medical Oncologist/Systems Specialist Medical Oncology 09/09/24 documented as of this encounter
--- OUTSIDE RECORDS SUMMARY | 2024-11-05 19:15 | XMS_ITS | Encounter Summary ---
Author Organization [facility] Healthcare Address [address] [place] [address] Care Team Providers Care Respiratory Care Faculty Name Role Phone Gilberto Martinez MD Primary Care Provider Rossi BLACK MD, Zane Morataya Unavailable [phone] Raudel Childers MD Unavailable [phone] Chris Hart MD Unavailable Charlee Mcmillan Unavailable Unavailable Agustina Li MD PhD Unavailable [phone] Encounter Details Date Type Department Care Team (Late st Contact Info) Description 11/04/2024 Telephone [facility] Transplant Liver [address] [address] [phone] [place] [address] Alethea Burch RN Social History Tobacco Use Types Packs/Day [...] materials from doctor or pharmacy Never 11/05/2024 [facility] Utilities Answer Date Recorded In the past 12 months has e [employer], [employer], oil, or water [employer] threatened to shut off services in your [...] How often do you attend chur or mormon services? More than 4 times per year 10/19/2024 Do you belong to any clubs o r organizations such as jewish groups, unions, fraternal or athletic groups, or [...] Date Recorded PHQ-2 Total Score 0 10/19/2024 [facility] of Occupat ional [facility] - Occupational Stress Questionnaire Answer [...] living in a halfway (including now)? No 10/19/2024 Personal Safety Answer Date Recorded Have you ever been in or are you currently in a harmful physical or emotional relationship or is someone making you feel afraid or unsafe? 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 Per committee patient should be removed from the wait list. Per Dr. Reeder patient will follow up inher clinic. I will reach out to Renetta to schedule ROV in 3 months. Will ask Melanie to please send removal from wait list letter. Closing transplant encounter. 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) documented as of this encounter Visit Diagnoses Not on filedocumented in this encounter Care Teams Respiratory Care Faculty Relationship Specialty Start Date End Date Gilberto Martinez MD [address] [facility] [address] [place] [address] PCP - General 07/11/16 Zane Richey III, MD [address] [facility] [address] [place] [address] Consulting Physician Cardiology 05/18/21 Raudel Childers MD [address] [facility] [id number] [place] [address] Consulting Physician Colon and Rectal Surgery 12/26/21 Chris Hart MD [address] [facility] [address] [place] [address] Slag Worker Cardiology 03/17/24 Charlee Mcmillan RMA Surgical Prehabilitation and Readiness (SPAR) Coordinator 06/11/24 Agustina Li MD PhD [id number] [place] [address] Medical Oncologist/Rac Specialist Medical Oncology 09/09/24 documented as of this encounter
--- OUTSIDE RECORDS SUMMARY | 2024-11-05 19:15 | XMS_ITS | Encounter Summary ---
Author Organization [facility] Address [address] [place] [address] Phone Care Team Providers Care Automotive Software Engineer Name Role Phone Gilberto Martinez MD Primary Care Provider Rossi BLACK MD, Zane Morataya Unavailable [phone] Raudel Childers MD Unavailable Chris Hart MD Unavailable Charlee Mcmillan Unavailable Unavailable Agustina Li MD PhD Unavailable [phone] Reason for Visit * Reason Onset Date Comments appointment update 11/04/2024 Encounter Details Date Type Department Care Team (Late st Contact Info) Description 11/04/2024 Telephone [facility] Oncology [address] [facility] [address] [place] [address] Yohana Santana CMA appointment update Social History Tobacco Use Types Packs/Day Years [...] materials from doctor or pharmacy Never 11/05/2024 [facility] Utilities Answer Date Recorded In the past 12 months has th e [employer], gas, oil, or water company threatened to [...] often do you attend chur ch or yarsani services? More than 4 times per year [...] Date Recorded PHQ-2 Total Score 0 10/19/2024 [facility] of Occupat ional [...] any time in the past 12 m [facility], were you homeless or living in a assisted (including now)? No 10/19/2024 Personal Safety Answer Date Recorded Have you ever been in or are you currently in a harmful physical or emotional relationship or is someone making you feel afraid or unsafe? 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 At his appointment on 11/11/24, he'd like to discuss palliative care. 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 [address] [place] [address] PCP - General 07/11/16 Zane Richey III, MD [address] [place] [address] Consulting Physician Cardiology 05/18/21 Raudel Childers MD [address] [facility] [id number] [place] [address] Consulting Physician Colon and Rectal Surgery 12/26/21 Chris Hart MD [address] [facility] [address] [place] [address] Mixer Diamond Powder Cardiology 03/17/24 Charlee Mcmillan RMA Surgical Prehabilitation and Readiness (SPAR) Coordinator 06/11/24 Agustina Li MD PhD [id number] [place] [address] Medical Oncologist/Unit Control Clerk Medical Oncology 09/09/24 documented as of this encounter
--- OUTSIDE RECORDS SUMMARY | 2024-11-05 19:15 | XMS_ITS | Referral Summary ---
Author Organization [facility] Address [address] [place] [address] Care Team Providers Care Project Associate Name Role Phone Gilberto Martinez MD Primary Care Provider [phone] Rossi BLACK MD, Zane Morataya Unavailable [phone] Raudel Childers MD Unavailable Chris Hart MD Unavailable Charlee Mcmillan Unavailable Unavailable Agustina Li MD PhD Unavailable Encounters Date Type Department Care Team Description 5 Telephone [facility] [address] [facility] Floor 1, [address] [place] [address] Renetta Colunga NP 5 Home Care Visit [facility] Health [address] [place] [address] Hannah Roque, DIXIE CASE COMMUNICATION 5 Telephone [facility] [address] [facility] Floor 5 [place] [address] Marion Aden RN 5 Telephone [facility] [address] [facility] [address] Mailstop 90-86-374 [place] [address] Jennifer Gamboa 5 Surgical Prehabilitation and Readiness Subsequent Outreach [facility] Department of Surgery [address] [place] [address] Serge August CMA 5 12:00 PM CDT Home Care Visit [address] [place] [address] Hannah Roque, OT OT OASIS DISCHARGE 5 Telephone [facility] [address] [facility] [address] Mailstop [phone] [place] [address] Alethea Burch RN 5 Telephone [facility] 10 [facility] [address] [place] [address] Yohana Santana CMA appointment update 5 10:45 AM CDT Home Care Visit [address] [place] [address] Angeline Horowitz COTA OT HOME VISIT 5 Telephone [facility] [address] [facility] Floor 5 [place] [address] Marion Aden, ALMITA 5 Telephone [facility] [address] [facility] Floor 5 [place] [address] Marion Aden, ALMITA 5 Anticoagulation Telephone Call [facility] [address] [facility] Office Building 3 [address] [place] [address] Chris Hart MD 5 7:36 PM CDT - 5 11:59 PM CDT Hospital Encounter [facility] [address] [place] [address] Discharge Disposition: Discharge to home or self care 5 7:26 PM CDT - 5 9:24 PM CDT Hospital Encounter [facility] ([facility]) [address] [place] [address] Fever, unspecified fever cause (Primary Dx) 5 Telephone [facility] [address] [facility] Floor 6 [place] [address] Willis Godoy RN 5 Anticoagulation Telephone Call [facility] [address] [place] [address] Medical Office Building 3 [address] [place] [address] Chris Hart MD 5 Telephone [facility] 4590 [facility] 3401 Mailstop [phone] [place] [address] Mariama Feldman, ALMITA 5 Surgical Prehabilitation and Readiness Subsequent Outreach [facility] [address] [place] [phone] Serge August CMA 5 Orders Only [facility] [address] [place] [address] Floor 5 [place] [address] Agustina Li MD PhD 5 9:00 AM CDT Home Care [place] [address] [address] [address] [place] [address] Byrn Molina, PT PT REASSESSMENT 5 12:45 PM CDT Home Care Visit [address] [place] [address] Angeline Horowitz COTA OT HOME VISIT 5 Orders Only [facility] [address] [place] [address] Floor 5 [place] [address] Marion Aden, ALMITA 5 Telephone [facility] Trans[facility] Liver 4590 [facility] 3401 Mailstop [phone] [place] [address] Mariama Feldman RN 5 Anticoagulation Telephone Call [facility] [address] [place] [address] Office Building 3 [address] [place] [address] Chris Hart MD 5 1:45 PM CDT Office Visit [facility] 10 [facility] [address] [place] [phone] Agustina Li MD PhD Hilar cholangiocarcinoma (HCC) (Primary Dx) 5 12:45 PM CDT Clinical Support [facility] 10 [facility] [place] [phone] Hilar cholangiocarcinoma (HCC); 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) 5 Home Care Visit [address] [place] [address] Hannah Roque, OT CASE COMMUNICATION 5 Telephone [facility] [address] [place] [address] Floor 5 [place] [address] Marion Aden RN 5 10:30 AM CDT Home Care Visit [address] [place] [address] Hannah Roque, OT OT REASSESSMENT 5 Telephone [facility] [address] [place] [address] Floor 5 [place] [address] Marion Aden RN 5 Anticoagulation Telephone Call [facility] Office Building 3 [address] [place] [address] Chris Hart MD 5 Documentation [facility] [address] [place] [address] Floor 5 [place] [address] Heidi Diaz RMA Fever 5 Plan of Care Documentation [address] [place] [address] 5 1:00 PM CDT Home Care Visit [address] [place] [address] Mei Trujillo, RN SN OASIS RESUMPTION OF CARE 5 Telephone [facility] [address] [facility] Floor 5 [place] [address] Marion Aden RN 5 Orders Only [facility] [address] [facility] Floor 5 [place] [address] Agustina Li MD PhD Hilar cholangiocarcinoma (HCC) (Primary Dx) 5 Telephone [facility] 4921 [facility] Advanced Medicine 8th [place] [address] [place] [address] Alea Canada RN 5 4:11 PM CDT - 5 2:00 PM CDT Hospital Encounter [address] [address] Agustina Li MD PhD Kait Askew MD Baral, MD Tomer Guerrero Safia, MD Tabagari, MD Trever Positive blood culture (Primary Dx); Fever, unspecified fever cause; Illness, unspecified; Sepsis with gram negative bacteremia; Hilar cholangiocarcinoma (HCC) Discharge Disposition: Discharge to home, home health skilled care 5 1:57 PM CDT Anesthesia Event [facility] [address] [place] [phone] Pascale Portillo MD 5 Surgical Prehabilitation and Readiness Subsequent Outreach [facility] [address] [place] [phone] Serge August CMA 5 Telephone [facility] Critical access hospital1 [facility] Medicine 8th [place] [address] [place] [address] Chantell Alexis 5 Home Care Visit [facility] Health [address] [address] [address] [place] [address] Ewa Lubin, PT PT OASIS TRANSFER W/OUT DC 5 Telephone [facility] [address] [facility] Floor 5 [place] [address] Agustina Li MD PhD 5 Anticoagulation Telephone Call [facility] 10[address] [facility] Office Building 3 [address] [place] [address] Chris Hart MD 5 12:53 PM CDT Anesthesia Event [facility] [address] [place] [phone] Vipin Daniel DO Winfrey, Tonya M., RIAZ 5 Surgical Prehabilitation and Readiness Subsequent Outreach [facility] [address] [phone] Serge August, [facility] 5 6:41 AM CDT - 5 11:59 PM CDT Hospital Encounter [facility] [address] [place] [phone] Upper abdominal pain Discharge Disposition: Discharge to home or self care 5 11:00 AM CDT - 5 11:30 AM CDT Surgery [facility] [address] [place] [phone] Chris Holcomb MD ENDOSCOPIC RETROGRADE CHOLANGIOPANCREATOGRAPHY REMOVE/CHANGE STENT [GI524] 5 8:47 AM CDT - 5 2:50 PM CDT Hospital Encounter [facility] [address] [place] [phone] Chris Holcomb MD History of biliary stent insertion Discharge Disposition: Discharge to home or self care 5 10:00 AM CDT Office Visit [facility] [facility] 12th [place] [address] [place] [address] Katie Reeder MD Perihilar cholangiocarcinoma (HCC) (Primary Dx) 5 12:15 PM CDT Home Care Visit [address] [place] [address] Angeline Horowitz COTA OT HOME VISIT 5 Telephone [facility] [address] [facility] Floor 8 [place] [address] Bebe Sage RN 5 2:00 PM CDT Home Care Visit [address] [place] [address] Bryn Molina, PT PT HOME VISIT 5 10:00 AM CDT Office Visit [facility] Building 3 [address] [place] [address] Aisha Delcid NP Cardiac pacemaker in situ (Primary Dx); Moderate aortic regurgitation; High risk medication use; Paroxysmal atrial fibrillation (HCC); Nonrheumatic mitral valve regurgitation; Essential (primary) hypertension; Prolonged INR; Heart disease, unspecified; Sick sinus syndrome (HCC) 5 Results Follow-Up [facility] [address] [facility] [address] Mailstop [phone] [place] [address] Alethea Burch, ALMITA CT Chest Abdomen Pelvis W Contrast 5 9:38 AM CDT - 5 11:59 PM CDT Hospital Encounter [facility] [address] [place] [address] 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) Discharge Disposition: Discharge to home or self care 5 Orders Only [facility] Floor 5 [place] [address] Agustina Li MD PhD Benign prostatic hyperplasia, unspecified whether lower urinary tract symptoms present (Primary Dx); Hilar cholangiocarcinoma (HCC) 5 10:30 AM CDT Home Care Visit [address] [place] [address] Angeline Horowitz COTA OT HOME VISIT 5 Telephone [facility] [address] [place] [address] [phone] [place] [address] Alethea Burch RN 5 Telephone [facility] [address] [place] [phone] [place] [address] Alethea Burch RN 5 Orders Only [facility] [address] [facility] Floor 5 [place] [address] Agustina Li MD PhD 5 Telephone [facility] [address] [place] [phone] [place] [address] Alethea Burch RN 5 10:00 AM CDT Home Care Visit [address] [address] [address] [place] [address] Bryn Molina, PT PT HOME VISIT 5 Results Follow-Up [facility] [address] [place] [phone] [place] [address] Alethea Burch RN Cancer antigen 19-9, Comprehensive metabolic panel, CBC with auto differential, Additional followed-up results: 9 5 Telephone [facility] [address] [place] [address] [phone] [place] [address] Alethea Burch RN 5 Anticoagulation Telephone Call [facility] [address] [facility] Building 3 [address] [place] [address] Chris Hart MD Paroxysmal atrial fibrillation (HCC) (Primary Dx) 5 10:00 AM CDT Office Visit [facility] [address] [facility] [address] [place] [address] Agustina Li MD PhD Hilar cholangiocarcinoma (HCC) (Primary Dx) 5 9:00 AM CDT Clinical Support [facility] at [address] [address] Hilar cholangiocarcinoma (HCC) 5 10:30 AM CDT Home Care Visit [address] [place] [address] Bryn Molina, PT PT HOME VISIT 5 12:15 PM CDT Home Care Visit [address] [place] [address] Angeline Horowitz COTA OT HOME VISIT 5 Orders Only [address] [address] Charlee Tovar [facility] 5 Telephone [facility] [address] [facility] Floor 5 [place] [address] Marion Aden, ALMITA 5 10:00 AM CDT Home Care Visit [address] [place] [address] Bryn Molina, PT PT REASSESSMENT 5 Surgical Prehabilitation and Readiness Subsequent Outreach [facility] [address] [place] [address] Serge August CMA 5 Orders Only [facility] [address] [facility] [address] Mailstop 43-20-400 [place] [address] Mariama Parisi, RN 5 Documentation [facility] [address] [facility] [address] Mailstop [phone] [place] [address] Nimisha Hauser 5 Telephone [facility] [address] [facility] [address] Mailstop 15-75-130 [place] [address] Nimisha Hauser 5 Telephone [facility] [address] [facility] [address] Mailstop [phone] [place] [address] Mariama Parisi, ALMITA 5 Anticoagulation Telephone Call [facility] 10[address] [facility] Office Building 3 [address] [place] [address] Chris Hrat MD Longstanding persistent atrial fibrillation (HCC) (Primary Dx) 5 12:00 PM CDT Home Care Visit [address] [place] [address] Hannah Roque, OT OT REASSESSMENT 5 Orders Only [facility] Floor 5 [place] [address] Agustina Li MD PhD Hilar cholangiocarcinoma (HCC) (Primary Dx) 5 Telephone [facility] [address] [facility] [address] Mailstop [phone] [place] [address] Mariama Parisi RN 5 10:15 AM CDT Home Care Visit [address] [place] [address] Bryn Molina, PT PT HOME VISIT 5 12:00 PM CDT Home Care Visit [address] [place] [address] Angeline Horowitz COTA OT HOME VISIT 5 Documentation [facility]0 [facility] Floor 5 [place] [address] Marion Aden RN 5 1:15 PM CDT Home Care Visit [address] [place] [address] Angeline Horowitz COTA OT HOME VISIT 5 Telephone [facility] [address] [facility] Floor 5 [place] [address] Marion Aden RN 5 Surgical Prehabilitation and Readiness Subsequent Outreach [facility] [address] [place] [address] Serge August CMA 5 Anticoagulation Telephone Call [facility] [address] [facility] Building 3 [address] [place] [address] Chris Hart MD Longstanding persistent atrial fibrillation (HCC) (Primary Dx) 5 12:00 PM CDT Home Care Visit [address] [address] [address] [place] [address] Radha Grullon, PT PT REASSESSMENT 5 Telephone [facility] 4921 [facility] 8th [place] [address] [place] [address] Chris Hart MD 5 1:45 PM CDT Home Care Visit [address] [place] [address] Angeline Horowitz COTA OT HOME VISIT 5 11:15 AM CDT Home Care Visit [address] [address] [address] [place] [address] Radha Grullon, PT PT HOME VISIT 5 Documentation [facility] [address] [facility] [address] Mailstop 90-29-908 [place] [address] Nimisha Hauser 5 2:30 PM CDT Home Care Visit [address] [place] [address] Bryn Molina, PT PT HOME VISIT 5 Telephone [facility] [address] [facility] [address] Mailstop 32-66-503 [place] [address] Mariama Parisi, ALMITA 5 Telephone [facility] [address] [facility] [address] Mailstop 81-65-154 [place] [address] Mariama Parisi RN 5 Results Follow-Up [facility] [address] [facility] [address] Mailstop [phone] [place] [address] Mariama Parisi, ALMITA Cancer antigen 19-9, Comprehensive metabolic panel, CBC with auto differential, Additional followed-up results: 3 5 1:45 PM CDT Home Care Visit [address] [address] [address] [place] [address] Angeline Horowitz COTA OT HOME VISIT 5 Anticoagulation Telephone Call [facility] [address] [place] [address] Medical Office Building 3 [address] [place] [address] Chris Hart MD 5 9:15 AM CDT Clinical Support [facility] at [address] [phone] 5 8:45 AM CDT Office Visit [facility] [address] [place] [address] 100 [place] [address] Agustina Li MD PhD Hilar cholangiocarcinoma (HCC) (Primary Dx) 5 7:45 AM CDT Clinical Support [facility] at [address] [address] Hilar cholangiocarcinoma (HCC); Paroxysmal atrial fibrillation (HCC); High risk medication use; Prolonged INR 5 Anticoagulation Telephone Call [facility] [address] [place] [address] Medical Office Building [address] [place] [address] Chris Hart MD 5 12:45 PM CDT Home Care Visit [address] [place] [address] Angeline Horowitz COTA OT HOME VISIT 5 Telephone [facility] [address] [facility] [address] Mailstop 86-56-796 [place] [address] Genoveva Hobson 5 Documentation [facility] [address] [facility] [address] Mailstop [phone] [place] [address] Mariama Parisi RN 5 2:00 PM CDT Home Care Visit [address] [place] [address] Bryn Molina, PT PT HOME VISIT 5 Orders Only [facility] Scanning, Provider 5 Documentation [facility] [address] [facility] Floor 5 [place] [address] Marion Aden RN 5 Anticoagulation Telephone Call [facility] [address] [facility] Office Building [address] [place] [address] Chris Hart MD Paroxysmal atrial fibrillation (HCC) (Primary Dx) 5 Telephone [facility] 4921 [facility] Advanced Medicine 8th [place] [address] [place] [address] Chris Hart MD 5 Home Care Visit [address] [place] [address] Hannah Roque, OT CASE COMMUNICATION 5 Home Care Visit [address] [place] [address] Samia Carias RN NURSE MED RECON FOR THERAPY 5 Telephone [facility] 10 [facility] [address] [place] [phone] Smith Cruz 5 Orders Only [facility] [address] [place] [address] Floor 5 [place] [address] Agustina Li MD PhD Hilar cholangiocarcinoma (HCC) (Primary Dx) 5 Documentation [facility] [address] [place] [address] Floor 5 [place] [address] Marion Aden RN 5 Surgical Prehabilitation and Readiness Subsequent Outreach [facility] [address] [place] [phone] Serge August CMA 5 1:00 PM CDT Home Care Visit [address] [place] [address] Hannah Roque, OT OT INITIAL EVALUATION 5 Home Care Visit [address] [place] [address] Samia Carias RN NURSE MED RECON FOR THERAPY 5 Documentation [facility] [address] [place] [address] Floor 5 [place] [address] Heidi Diaz RMA Prior Auth 5 Orders Only [facility] [address] [place] [address] Floor 5 [place] [address] Agustina Li MD PhD 5 Orders Only [facility] [address] [place] [address] Floor [address] [place] [address] Agustina Li MD PhD 5 Documentation [facility] 10 [place] [address] 5 Documentation [facility] [address] [place] [address] Floor 5 [place] [address] Heidi Diaz RMA Prior Auth 5 9:00 AM CDT Infusion [facility] at [address] [place] [address] Dehydration (Primary Dx); Hilar cholangiocarcinoma (HCC); Hypomagnesemia 5 Anticoagulation Telephone Call [facility] Building [address] [place] [address] Chris Hart MD 5 7:45 AM CDT Clinical Support [facility] at [address] [phone] 5 8:30 AM CDT Office Visit [facility] [address] [place] [address] [address] [place] [phone] Leela Guillermo NP Hilar cholangiocarcinoma (HCC) (Primary Dx); Dehydration 5 7:30 AM CDT Clinical Support [address] [phone] Hilar cholangiocarcinoma (HCC); Paroxysmal atrial fibrillation (HCC); High risk medication use; Prolonged INR 5 Plan of Care Documentation [address] [address] [address] [place] [address] 5 1:00 PM CDT Home Care Visit [address] [place] [address] Radha Grullon, PT PT OASIS START OF CARE 5 Telephone [facility] [address] [facility] [address] Mailstop [phone] [place] [address] Genoveva Hobson 5 Telephone [facility] 4590 [facility] 3401 Mailstop 54-01-219 [place] [address] Genoveva Hobson 5 Telephone [facility] [address] [facility] [address] Mailstop [phone] [place] [address] Mariama Parisi RN 5 Telephone [facility] [address] [facility] Floor 5 [place] [address] Landy Hooker, ALMITA 5 Anticoagulation Telephone Call [facility] [address] [facility] Floor 1, [address] [place] [address] Seema Mora RN 5 6:12 PM CDT - 5 4:07 PM CDT Hospital Encounter [facility] 1 [place] [address] Gorge Contreras MD PhD Joe, MD Abimael Mcgee, MD Odalys Matthews, MD Sweta Felipe Geneva Enriquez, MD Menon, Priya, MD Hoyt, Smith Hinton MD Diarrhea, unspecified type (Primary Dx); FTT (failure to thrive) in adult; Acute hypoxemic respiratory failure (HCC); Hypoxia Discharge Disposition: Discharge to home or self care 5 Travel 5 2:20 PM CDT Ancillary Procedure [facility] IP 1 [facility] [address] [place] [address] 5 Surgical Prehabilitation and Readiness Subsequent Outreach [facility] [address] [place] [address] Serge August CMA [address] [place] [address] Yee Marin RN 5 Orders Only [facility] [address] [facility] Floor 5 [place] [phone] Landy Hooker, ALMITA Hilar cholangiocarcinoma (HCC) (Primary Dx) 5 7:55 AM CDT Ancillary Procedure [facility] IP 1 [facility] [address] [place] [address] 5 11:35 AM CDT Anesthesia Event [facility] 1 [place] [address] Arlene Phillips MD 5 10:56 AM CDT - 5 11:26 AM CDT Surgery [facility] 1 [place] [address] Abram Smith MD SIGMOID BIOPSY 5 Documentation [facility] [address] [facility] [address] Mailstop [phone] [place] [address] Mariama Parisi RN 5 Surgical Prehabilitation and Readiness Subsequent Outreach [facility] [address] [place] [address] Serge August CMA 5 Telephone [facility] [address] [facility] Floor 1, [address] [place] [address] Chris Hart MD 5 Orders Only [facility] [address] [facility] Floor 5 [place] [address] Landy Hooker RN Hilar cholangiocarcinoma (HCC) (Primary Dx) 5 Results Follow-Up [facility] 5[address] [facility] [address] [place] [address] Seema Mora RN Protime-INR, aPTT 5 3:53 PM CDT - 5 11:59 PM CDT Hospital Encounter [facility] 49[address] [place] [address] Discharge Disposition: Discharge to home or self care 5 2:54 PM CDT - 5 11:59 PM CDT Hospital Encounter [facility]) [address] [place] [address] Other specified hypotension (Primary Dx); Nausea; Elevated INR Discharge Disposition: Discharge to home or self care 5 Telephone [facility] Floor 5 [place] [phone] Landy Hooker RN 5 Telephone [facility] [address] [place] [address] Medical Office Building 4, [address] [place] [phone] Erin Dillard RN GI Preprocedure 5 Telephone [facility] at [address] [phone] Kait Marroquin, ASHLEY 5 7:24 PM CDT - 5 3:09 AM CDT Hospital Encounter [facility] / [facility] [address] [place] [id number] Nausea and vomiting, unspecified vomiting type (Primary Dx); Hilar cholangiocarcinoma (HCC) Discharge Disposition: Discharge to home or self care 5 Telephone [facility] at [address] [phone] Kait Marroquin, ASHLEY 5 Telephone [facility] Floor 5 [place] [phone] Landy Hooker RN 5 Orders Only [facility] Floor 5 [place] [phone] Landy Hooker, RN Hand foot syndrome (Primary Dx); Hilar cholangiocarcinoma (HCC) 5 Anticoagulation Telephone Call [facility] [address] [facility] Medical Office Building [address] [place] [phone] Chris Hart MD Paroxysmal atrial fibrillation (HCC) (Primary Dx) 5 Telephone [facility] [address] [facility] [address] [place] [phone] Zane Richey III, MD 5 1:15 PM CDT Ancillary Procedure [facility] [address] [facility] [address], [place] [phone] Cardiac pacemaker in situ (Primary Dx); Sick sinus syndrome (HCC) 5 9:30 AM CDT Office Visit [facility] [address] [facility] 12th [place] [address] [place] [address] Jamin Posey MD Cholangiocarcinoma (HCC) (Primary Dx); Hilar cholangiocarcinoma (HCC) 5 11:[address] [facility] [address] [place] [address] [place] [address] Gorge Garza MD PhD Cholangiocarcinoma (HCC) (Primary Dx) 5 12:32 PM CDT Anesthesia Event [facility] [address] [place] [id number] Arpan Guzman MD 5 11:30 AM CDT - 5 12:00 PM CDT Surgery [facility] [address] [place] [address] Chris Holcomb MD ENDO ENDOSCOPIC RETROGRADE CHOLANGIOPANCREATOGRAPHY REMOVE/CHANGE STENT [GI513] 5 10:17 AM CDT - 5 2:27 PM CDT Hospital Encounter [facility] [address] [address] Chris Holcomb MD History of biliary stent insertion; Hilar cholangiocarcinoma (HCC) Discharge Disposition: Discharge to home or self care from Last 3 Months Allergies Active Allergy [...] Deficiency Prevention 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 Active simvastatin (ZOCOR) 10 mg [...] WITH FOOD 270 capsule 4 025 Active Additional Information Patient taking differently: 8 mg oral 3 times daily, Reported on 10/16/2024 sotaloL (BETAPACE) 80 mg tabletIndications:Pr evention of Recurrent Atrial Fibrillation Take 1 tablet (80 mg total) by mouth 2 (two) times a day 180 tablet 3 025 08/17 Active al & mag hydroxide simethicone-diphenhy suaqzyb-bavkkgnks-fc statin (MAGIC MOUTHWASH) suspensionIndication s:oral thrush Swish [...] mouth daily 30 tablet 11 09/07 Active sodium chloride (OCEAN) 0.65 % [...] each 4 09/07 Active oxygenIndications:Dy spnea Administer 1 L/min into each nostril continuously at 60,000 mL/hr 1L to 3L with activity 1L at night only Active tamsulosin (FLOMAX) 0.4 mg extended release capsuleIndications:b enign prostatic hyperplasia with lower urinary tract sx Take 1 capsule (0.4 mg total) by mouth daily with dinner 30 capsule 025 Active ferrous sulfate 325 mg (65 mg of elemental iron) tabletIndications: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 S/p vitamin K 2.5 mg oral once 08/22, s/p Vit K 10 IV 08/23 - INR 1.63 08/24-- Resumed warfarin home dose 2 mg daily (08/24-p) - Daily INR Assessment & Plan (09/03/2024 2:39 PM CDT): - Secondary to nausea/vomiting/diarhea while on warfarin. INR > 9 y - s/p Vit K in [facility]. S/p vitamin K 2.5 mg oral once 08/22, s/p Vit K 10 IV 08/23 - INR 1.63 08/24-- Resumed warfarin home dose 2 mg daily (08/24-p) - Daily INR Assessment & Plan (09/02/2024 10:30 AM CDT): - Secondary to nausea/vomiting/diarhea while on warfarin. INR > 9 y - s/p Vit K in [facility]. S/p vitamin K 2.5 mg oral once 08/22, s/p Vit K 10 IV 08/23 - INR 1.63 08/24-- Resumed warfarin home dose 2 mg daily (08/24-p) - Daily INR Assessment & Plan (09/01/2024 4:08 PM CDT): - Secondary to nausea/vomiting/diarhea while on warfarin. INR > 9 y - s/p Vit K in [facility]. S/p vitamin K 2.5 mg oral once 08/22, s/p Vit K 10 IV 08/23 - INR 1.63 08/24-- Resumed warfarin home dose 2 mg daily (08/24-p) - Daily INR Assessment & Plan (08/31/2024 11:42 AM CDT): - Secondary to nausea/vomiting/diarhea while on warfarin INR > 9 y - s/p Vit K in [facility] S/p vitamin K 2.5 mg oral once 08/22, s/p Vit K 10 IV 08/23 INR 1.63 08/24-- Resumed warfarin home dose 2 mg daily (08/24-p) Daily INR See atrial fibrillation Assessment & Plan (08/30/2024 12:11 PM CDT): - Secondary to nausea/vomiting/diarhea while on warfarin INR > 9 y - s/p Vit K in [facility] S/p vitamin K 2.5 mg oral once 08/22, s/p Vit K 10 IV 08/23 INR 1.63 08/24-- Resumed warfarin home dose 2 mg daily (08/24-p) Daily INR Assessment & Plan (08/29/2024 1:59 PM CDT): - Secondary to nausea/vomiting/diarhea while on warfarin INR > 9 y - s/p Vit K in [facility] S/p vitamin K 2.5 mg oral once 08/22, s/p Vit K 10 IV 08/23 INR 1.63 08/24-- Resumed warfarin home dose 2 mg daily (08/24-p) Daily INR Assessment & Plan (08/28/2024 5:10 PM CDT): - Secondary to nausea/vomiting/diarhea while on warfarin INR > 9 y - s/p Vit K in [facility] S/p vitamin K 2.5 mg oral once 08/22, s/p Vit K 10 IV 08/23 INR 1.63 08/24-- Resumed warfarin home dose 2 mg daily (08/24-p) Daily INR Assessment & Plan (08/27/2024 6:05 PM CDT): - Secondary to nausea/vomiting/diarhea while on warfarin INR > 9 y - s/p Vit K in [facility] S/p vitamin K 2.5 mg oral once 08/22, s/p Vit K 10 IV 08/23 INR 1.63 08/24-- Resumed warfarin home dose 2 mg daily (08/24-p) Daily INR Assessment & Plan (08/26/2024 5:10 PM CDT): - Secondary to nausea/vomiting/diarhea while on warfarin INR > 9 y - s/p Vit K in [facility] S/p vitamin K 2.5 mg oral once 08/22, s/p Vit K 10 IV 08/23 INR 1.63 08/24-- Resumed warfarin home dose 2 mg daily (08/24-p) Daily INR Assessment & Plan (08/25/2024 6:44 PM CDT): - Secondary to nausea/vomiting/diarhea while on warfarin INR > 9 y - s/p Vit K in [facility] S/p vitamin K 2.5 mg oral once 08/22, s/p Vit K 10 IV 08/23 INR 1.63 08/24-- Resumed warfarin home dose 2 mg daily (08/24-p) Daily INR Assessment & Plan (08/24/2024 1:31 PM CDT): - Secondary to nausea/vomiting/diarhea while on warfarin INR > 9 y - s/p Vit K in [facility] S/p vitamin K 2.5 mg oral once 08/22, s/p Vit K 10 IV 08/23 INR 1.63 08/24-- Resumed warfarin home dose 2 mg daily (08/24-p) Assessment & Plan (08/23/2024 12:11 PM CDT): - Secondary to nausea/vomiting/diarrhea while on warfarin INR > 9 y - s/p Vit K in [facility] - , continue to hold warfarin, bleeding precautions ordered Ordered vitamin K 2.5 mg oral once 08/22 INR more than 9 today, still having poor oral intake with diarrhea, will give IV vitamin K 10 mg once 08/23 Assessment & Plan (08/22/2024 12:03 PM CDT): - Secondary to nausea/vomiting/diarrhea while on warfarin INR > 9 y - s/p Vit K in [facility] - , continue to hold warfarin, bleeding precautions ordered Ordered vitamin K 2.5 mg oral once 08/22 Oral intake encouraged. Assessment & Plan (08/21/2024 9:15 PM CDT): - INR > 9 with hematuria noted recently - s/p Vit K in [facility] - Trend INR in AM, [...] 025 Assessment & Plan (06/09/2024 8:50 PM MANAGER PAYMENT): -Remains compliant sotalol -increase to 80 mg [...] 7 Assessment & Plan (03/16/2024 5:32 PM MANAGER PAYMENT): - H/H- 8.9 Monitor CBC closely Lactic acidosis 03/15/2024 Assessment & Plan (03/16/2024 5:29 PM MANAGER PAYMENT): Lactate 4 in [facility]. Reports normal PO intake. Improved to 2.3 after 1L IVF. Unclear etiology. Lactate lateralized on a.m. labs Hypomagnesemia 03/10/2024 Hypophosphatemia 02/11/2024 Dehydration 02/10/2024 Mood disorder 01/18/2024 Assessment & Plan (01/18/2024 8:13 PM CDT): Continue home citalopram Shortness of breath 01/18/2024 Assessment & Plan (03/16/2024 5:31 PM MANAGER PAYMENT): P/w SOB, fatigue, generalized weakness. Similar episodes in the past w/ unremarkable workup. In [facility], Tmax 99.4, satting well on [...] negative to date -given cefe x1 in [facility]; hold off on further abx [...] awaiting transplant. He was recently adm to [facility] from 08/21 - 09/07/24 w/ N/V/D, CT [...] ERCP and stent exchange on 10/15 at [facility] Currently he remains on reduced dose capecitabine [...] awaiting transplant. He was recently adm to [facility] from 08/21 - 09/07/24 w/ N/V/D, CT [...] ERCP and stent exchange on 10/15 at [facility] Currently he remains on reduced dose capecitabine [...] awaiting transplant. He was recently adm to [facility] from 08/21 - 09/07/24 w/ N/V/D, CT [...] ERCP and stent exchange on 10/15 at [facility] Currently he remains on reduced dose capecitabine [...] awaiting transplant. He was recently adm to [facility] from 08/21 - 09/07/24 w/ N/V/D, CT [...] ERCP and stent exchange on 10/15 at [facility] Currently he remains on reduced dose capecitabine [...] awaiting transplant. He was recently adm to [facility] from 08/21 - 09/07/24 w/ N/V/D, CT [...] ERCP and stent exchange on 10/15 at [facility] Currently he remains on reduced dose capecitabine [...] awaiting transplant. He was recently adm to [facility] from 08/21 - 09/07/24 w/ N/V/D, CT [...] ERCP and stent exchange on 10/15 at [facility] Currently he remains on reduced dose capecitabine (reduced dose), q2 weeks Assessment & Plan (10/17/2024 12:39 PM CDT): Follows Dr. 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 Since then he has underwent 8 cycles of Gemcitabine + cisplatin + nab-paclitaxel and is currently on maintenance capecitabine and is awaiting transplant. He was recently adm to [facility] from 08/21 - 09/07/24 w/ N/V/D, CT [...] ERCP and stent exchange on 10/15 at [facility] Currently he remains on reduced dose capecitabine (reduced dose), q2 weeks Assessment & Plan (10/16/2024 3:04 PM CDT): follows Dr. 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 Since then he has underwent 8 cycles of Gemcitabine + cisplatin + nab-paclitaxel and is currently on maintenance capecitabine and is awaiting transplant. He was recently adm to [facility] from 08/21 - 09/07/24 w/ N/V/D, CT [...] ERCP and stent exchange on 10/15 at [facility] Currently he remains on reduced dose capecitabine (reduced dose), q2 weeks Assessment & Plan (10/15/2024 8:47 PM CDT): follows Dr. 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 Since then he has underwent 8 cycles of Gemcitabine + cisplatin + nab-paclitaxel and is currently on maintenance capecitabine and is awaiting transplant. He was recently adm to [facility] from 08/21 - 09/07/24 w/ N/V/D, CT [...] ERCP and stent exchange on 10/15 at [facility] Currently he remains on reduced dose capecitabine (reduced dose), q2 weeks Assessment & Plan (09/07/2024 8:02 PM CDT): Established care with [facility]/p chemo/radiation, active on transplant list and on maintenance capecitabine - Appreciate Med Onc recs Assessment & Plan (09/06/2024 5:24 PM CDT): Established care with [facility]/paola chemo/radiation, active on transplant list and on maintenance capecitabine - Appreciate Med Onc recs Assessment & Plan (09/05/2024 11:31 AM CDT): Established care with [facility]/paola chemo/radiation, active on transplant list and on maintenance capecitabine - Appreciate Med Onc recs Assessment & Plan (09/04/2024 11:35 AM CDT): Established care with [facility]/paola chemo/radiation, active on transplant list and on maintenance capecitabine - Appreciate Med Onc recs Assessment & Plan (09/03/2024 2:39 PM CDT): Established care with [facility]/p chemo/radiation, active on transplant list and on maintenance capecitabine - Appreciate Med Onc recs Assessment & Plan (09/02/2024 10:30 AM CDT): Established care with [facility]/paola chemo/radiation, active on transplant list and on [...] capecitabine Assessment & Plan (03/16/2024 5:32 PM MANAGER PAYMENT): Dx 11/2023 after presenting with jaundice in [...] - [facility] Assessment & Plan [...] resectable. Planned for port 12/01 and start Manati+Cis+Abrax after, which will be postponed for 1wk [...] 10/24/2023 Assessment & Plan (03/15/2024 9:54 PM MANAGER PAYMENT): -cont betahistine 24mg tid (home supply) Assessment [...] 02/26/2023 Assessment & Plan (06/09/2024 8:48 PM MANAGER PAYMENT): -Status post dual-chamber pacemaker placement -Device interrogation [...] mg BID Last dose of warfarin was 67 and has been recommended to restart on [...] above Assessment & Plan (06/09/2024 8:49 PM MANAGER PAYMENT): -Status post radiofrequency catheter ablation with Dr. Richey -Remains compliant on apixaban and sotalol -Noted to have a sustained episode recently causing symptoms -Increase sotalol to 80 mg b.i.d. -Obtain an EKG after 3 doses to evaluate QT interval -Follow up in 6 months for 12 lead EKG, device interrogation, and clinic visit Assessment & Plan (03/15/2024 10:22 PM MANAGER PAYMENT): S/p PVI, CTI ablation 09/09/23. Follows w/ [...] AM CDT): Asymptomatic, device-detected AF. Low burden. [id number] = 2. --Continue apixaban 5 mg BID Lightheadedness 03/12/2022 Small bowel obstruction 12/23/2021 Sinus bradycardia 05/29/2021 Sick sinus syndrome 05/19/2021 Overview (05/19/2021): Added automatically from request for surgery [id number] Assessment & Plan (03/15/2024 9:53 PM MANAGER PAYMENT): -s/p PPM Assessment & Plan (01/21/2024 1:23 [...] device function. --Continue remote device f/u via [place] Bradycardia 05/16/2021 Advance care planning 03/22/2021 SYLVIE [...] CPAP Assessment & Plan (03/16/2024 5:27 PM MANAGER PAYMENT): Continue CPAP qhs Assessment & Plan (01/21/2024 [...] needed Assessment & Plan (03/16/2024 5:27 PM MANAGER PAYMENT): Continue Amlodipine, Lisinopril, HCTZ Assessment & Plan [...] statin Assessment & Plan (03/16/2024 5:25 PM MANAGER PAYMENT): Continue statin Assessment & Plan (01/18/2024 7:01 [...] Plan (10/23/2024 7:49 AM CDT): Culture form [facility] positive for gram negative bacilli (verbal report per patient). Prior culture in 2023 positive for klebsiella (R: ampicillin) Given fever of 100.9 on 10/13, positive blood culture- for E.coli(resistant to multiple ABX), recent ERCP - will opt to treat as cholangitis., negative UA. Start Zosyn, meropenem EOT 10/22 F/u b/c on 10/15-no growth Assessment & Plan (10/22/2024 10:33 AM CDT): Culture form [facility] positive for gram negative bacilli (verbal report per patient). Prior culture in 2023 positive for klebsiella (R: ampicillin) Given fever of 100.9 on 10/13, positive blood culture- for E.coli(resistant to multiple ABX), recent ERCP - will opt to treat as cholangitis., negative UA. Start Zosyn ,--meropenem EOT 10/22 F/u b/c on 10/15-no growth Assessment & Plan (10/21/2024 10:46 AM CDT): Culture form [facility] positive for gram negative bacilli (verbal report per patient). Prior culture in 2023 positive for klebsiella (R: ampicillin) Given fever of 100.9 on 10/13, positive blood culture- for E.coli(resistant to multiple ABX), recent ERCP - will opt to treat as cholangitis., negative UA. Start Zosyn ,--meropenem EOT 10/22 F/u b/c on 10/15-ngtd Assessment & Plan (10/20/2024 10:21 AM CDT): Culture form [facility] positive for gram negative bacilli (verbal report per patient). Prior culture in 2023 positive for klebsiella (R: ampicillin) Given fever of 100.9 on 10/13, positive blood culture- for E.coli(resistant to multiple ABX), recent ERCP - will opt to treat as cholangitis., negative UA. Start Zosyn ,--meropenem EOT 10/22 F/u b/c on 10/15-ngtd Assessment & Plan (10/19/2024 1:30 PM CDT): Culture form [facility] positive for gram negative bacilli (verbal report per patient). Prior culture in 2023 positive for klebsiella (R: ampicillin) Given fever of 100.9 on 10/13, positive blood culture- for E.coli(resistant to multiple ABX), recent ERCP - will opt to treat as cholangitis., negative UA. Start Zosyn , anticipate to switch to oral once records form [facility] is found. F/u b/c on 10/15-ngtd ID consult for ESBL E.coli and ABX recs. Assessment & Plan (10/18/2024 11:27 AM CDT): Culture form [facility] positive for gram negative bacilli (verbal report per patient). Prior culture in 2023 positive for klebsiella (R: ampicillin) Given fever of 100.9 on 10/13, positive blood culture- for E.coli(susceptibilities pending), recent ERCP - will opt to treat as cholangitis., negative UA. Start Zosyn , anticipate to switch to oral once [facility]. Requested records 10/16 F/u b/c on 10/15-ngtd Assessment & Plan (10/17/2024 12:39 PM CDT): Culture form [facility] positive for gram negative bacilli (verbal report per patient). Prior culture in 2023 positive for klebsiella (R: ampicillin) Given fever of 100.9 on 10/13, positive blood culture- for E.coli, recent ERCP - will opt to treat as cholangitis., negative UA. Start Zosyn , anticipate to switch to oral once records form [facility] is found. Requested records 10/16 F/u b/c on 10/15-ngtd Assessment & Plan (10/16/2024 3:04 PM CDT): Culture form [facility] positive for gram negative bacilli (verbal report per patient). Prior culture in 2023 positive for klebsiella (R: ampicillin) Given fever of 100.9 on 10/13, positive blood culture, recent ERCP - will opt to treathim as cholangitis., negative UA. Start Zosyn , anticipate to switch to oral once records form [facility] is found. Requested records 10/16 F/u b/c on 10/15 Assessment & Plan (10/15/2024 8:47 PM CDT): Culture form [facility] positive for gram negative bacilli (verbal report per patient). Prior culture in 2023 positive for klebsiella (R: ampicillin) Given fever of 100.9 on 10/13, positive blood culture, recent ERCP - will opt to treathim as cholangitis., negative UA. Start Zosyn , anticipate to switch to oral once records [facility]. F/u b/c on 10/15 [...] quarterly Immunizations Immunization Administration Dates Next Due COVID-19 mRNA ([employer]) 0.3 m L (30 mcg) vaccine (12 [...] Bivalent Vaccine 10 mcg/0.2 mL (6 MOS-5 YRS)-Vincent/Yellow 02/26/2022 Pfizer SARS-CoV-2 Monovalent Vaccination (12+ Yrs) [...] materials from doctor or pharmacy Never 11/05/2024 [facility] Utilities Answer Date Recorded In the past 12 months has th e [employer], oil, or water [employer] threatened to shut off services in your [...] often do you attend chur ch or mormonism services? More than 4 times per year 10/19/2024 Do you belong to any clubs o r organizations such as mandaen groups, unions, fraternal or athletic groups, or [...] Date Recorded PHQ-2 Total Score 0 10/19/2024 [facility] - [...] any time in the past 12 m [facility], were you homeless or living [...] on file Legal Sex Male 6:21 AM MANAGER PAYMENT Gender Identity Male 12/06/2019 4:39 PM CDT [...] cholangiocarcinoma (HCC) Medical Devices Implanted Type Area Trailhead Construction Worker Device Identifier Shelf Expiration Date Model / Serial / Lot [employer] Vascade Mvp 6-12fr Venous Closure [id number] - [id number] - [id number] Implanted:Qty : 1 on 09/09/2023 by Zane Richey III, MD at [facility] Collagen [employer] 06/20/2025 800-612C- 10U / [id number] / [id number] [employer] Vascade Mvp 6-12fr Venous Closure [id number] - [id number] - [id number] Implanted:Qty : 1 on 09/09/2023 by Zane Richey III, MD at [facility] Collagen [employer] 06/20/2025 800-612C- 10U / [id number] / [id number] [employer] Vascade Mvp 6-12fr Venous Closure [id number] - [id number] - [id number] Implanted:Qty : 1 on 09/09/2023 by Zane Richey III, MD at [facility] Collagen [employer] 06/20/2025 800-612C- 10U / [id number] / [id number] [employer] 2088tc/58 Tendril Sts 6fr 58cm Is-1 Connector Active Fixation Bipolar Soft - [id number] - [id number] Implanted:Qty : 1 on 06/30/2021 by Zane Richey III, MD at [facility] Lead [employer] [id number] 03/05/2024 2088TC/58 / [id number] / [employer] 2088tc/52 Tendril Sts 6fr 52cm Is-1 Connector Active Fixation Bipolar Soft - [id number] - [id number] Implanted:Qty : 1 on 06/30/2021 by Zane Richey III, MD at [facility] Lead [employer] [id number] 03/05/2024 2088TC/52 / [id number] / [employer] [id number] Assurity Mri 77i35ar 2 Chamber Is-1 Connector Thk6mm Pacemaker - [id number] - [id number] Implanted:Qty : 1 on 06/30/2021 by Zane Richey III, MD at [facility] Pacemaker Left: Chest [employer] [id number] 11/02/2022 [id number] / [id number] / [employer] Advanix 7fr 10cm Rapid Exchange Temporary Taper Tip Thin Wall 2 [id number] - [id number] Implanted:Qty : 1 on 10/15/2024 by Chris Holcomb MD at [facility] Stent N/A: Bile Duct [employer] 06/10/2026 [id number] / / [id number] [employer] Advanix 7fr 10cm Rapid Exchange Temporary Taper Tip Thin Wall 2 [id number] - [id number] Implanted:Qty : 1 on 10/15/2024 by Chris Holcomb MD at [facility] Stent N/A: Bile Duct [employer] 05/26/2026 [id number] / / [id number] [employer] Low [employer] Power Port 8fr 1.6mm 1 Lumen [id number] - [id number] Implanted:Qty : 1 on 12/09/2023 at [facility] [employer] 09/18/2028 [id number] / / [id number] Explanted Type Area Trailhead Construction Worker Device Identifier Shelf Expiration Date Model / Serial / Lot Yesware Farrell Flexi-Stent 5fr 7cm Small Pigtail Flexible .035in Stent 6554 - [id number] Implanted:Qty: 1 on 11/15/2023 by Chris Holcomb MD at [facility] Explanted:Qty: 1 on 01/13/2024 at [facility] Stent Pancreas [employer] 06/06/2028 [id number] / / [id number] Description:Not present upon start of procedure [employer] Cook Zimmon 7fr 10cm Biliary Double Pigtail Stent [id number] - [id number] Implanted:Qty: 1 on 11/15/2023 by Chris Holcomb MD at [facility] Explanted:Qty: 1 on 01/13/2024 by Sherry Alberts DO at [facility] Stent Bile Duct [employer] 07/08/2026 [id number] / / [id number] [employer] Maame Advanix 7fr 10cm Rapid Exchange Temporary Taper Tip Thin Wall 2 [id number] - [id number] Implanted:Qty: 1 on 01/13/2024 by Chris Holcomb MD at [facility] Explanted:Qty: 1 on 03/18/2024 by Chris Holcomb MD at [facility] Stent N/A: Bile Duct [employer] Maame [id number] 10/20/2025 [id number] / / [id number] [employer]ame Advanix 7fr 10cm Rapid Exchange Temporary Taper Tip Thin Wall 2 [id number] - [id number] Implanted:Qty: 1 on 01/13/2024 by Sherry Alberts DO at [facility] Explanted:Qty: 1 on 03/18/2024 by Chris Holcomb MD at [facility] Stent N/A: Bile Duct [employer] Maame [id number] 11/18/2025 [id number] / / [id number] [employer]ame Advanix 7fr 10cm Rapid Exchange Temporary Taper Tip Thin Wall 2 [id number] - [id number] Implanted:Qty: 1 on 03/18/2024 by Chris Holcomb MD at [facility] Explanted:Qty: 1 on 08/07/2024 by Sherry Alberts DO at [facility] Stent N/A: Bile Duct [employer] Maame 01/12/2026 [id number] / / [id number] [employer]ame Advanix 7fr 12cm Rapid Exchange Temporary Taper Tip Thin Wall 2 [id number] - [id number] Implanted:Qty: 1 on 03/18/2024 by Chris Holcomb MD at [facility] Explanted:Qty: 1 on 08/07/2024 by Sherry Alberts DO at [facility] Stent N/A: Bile Duct [employer] Maame 01/06/2026 [id number] / / [id number] Description:Not present on t his exam [employer] Advanix 7fr 10cm Rapid Exchange Temporary Taper Tip Thin Wall 2 [id number] - [id number] Implanted:Qty: 1 on 05/18/2024 by Chris Holcomb MD at [facility] Explanted:Qty: 1 on 08/07/2024 by Sherry Alberts DO at [facility] Stent N/A: Bile Duct [employer]ame 03/17/2026 [id number] / / [id number] [employer] Advanix 7fr 10cm Rapid Exchange Temporary Taper Tip Thin Wall 2 [id number] - [id number] Implanted:Qty: 1 on 05/18/2024 by Chris Holcomb MD at [facility] Explanted:Qty: 1 on 08/07/2024 at [facility] Stent N/A: Bile Duct [employer]ame 03/18/2026 [id number] / / [id number] Description:Not present on t his exam [employer] Advanix 7fr 10cm Rapid Exchange Temporary Taper Tip Thin Wall 2 [id number] - [id number] Implanted:Qty: 1 on 08/07/2024 by Sherry Alberts DO at [facility] Explanted:Qty: 1 on 10/15/2024 by Chris Holcomb MD at [facility] Stent N/A: Bile Duct [employer] 05/26/2026 [id number] / / [id number] [employer] Advanix 7fr 10cm Rapid Exchange Temporary Taper Tip Thin Wall 2 [id number] - [id number] Implanted:Qty: 1 on 08/07/2024 by Sherry Alberts DO at [facility] Explanted:Qty: 1 on 10/15/2024 by Chris Holcomb MD at [facility] Stent N/A: Bile Duct [employer] 05/26/2026 [id number] / / [id number] [employer] Zimmon Od7 Fr L15 Cm Tapered Tip 2 Pigtail Curve Stent Biliary Polyethylene Sterile Disposable Purple [id number] - [id number] Implanted:Qty: 1 on 11/15/2023 by Chris Holcomb MD at [facility] Explanted:Qty: 1 on 01/13/2024 by Sherry Alberts DO at [facility] Bile Duct [employer] 07/03/2026 [id number] / / [id number] Procedures Procedure Name Priority Date/Time Associated Diagnosis [...] 11:26 AM CDT POTASSIUM, WHOLE BLOOD Timed 04/28/202 5 6:44 AM CDT EGFR Routine 08/31/2024 2:34 [...] CDT HEMOGLOBIN A1C Routine 06/22/2024 2:10 PM MANAGER PAYMENT Moderate aortic regurgitation Nonrheumatic mitral valve regurgitation Abnormal finding of blood chemistry, unspecified HEPATITIS C ANTIBODY Routine 06/08/2024 7:28 AM MANAGER PAYMENT Hilar cholangiocarcinoma (HCC) LIPID PANEL Routine 06/08/2024 7:28 AM MANAGER PAYMENT Hilar cholangiocarcinoma (HCC) from Last 3 Months or Most Recently Relevant to Health Maintenance Results * Urinalysis reflex to microscopic and culture Urine, clean voided (11/01/2024 8:13 PM CDT) Color, ur Yellow Yellow Clarity, ur Clear Clear [facility] Specific gravity, ur 1.025 1.003 - 1.030 [facility] pH, urine 6.0 [facility] Comment: Interpretive Data U rine pH is affected by diet, medications, systemic acid-base disturbances, and renal tubular function. pH may affect urinary stone formation. For example, urine pH below 6.0 may help reduce the tendency for calcium phosphate stones and pH greater than 6.0 may reduce the tendency for uric acid stone formation. Source: [facility] [employer] Current Interpretive Data was last revised on 2017 Protein, ur ql Negative Negative [facility] Glucose, ur ql Negative Negative [facility] Ketones, ur Negative Negative [facility] Bilirubin, ur Negative Negative [facility] Blood, ur Negative Negative [facility] Urobilinogen, ur <2.0 <2.0 mg/dL [facility] Nitrite, ur Negative Negative [facility] Leukocyte esterase, ur Negative Negative [facility] UA reflex comment Reflex conditions for microscopic UA and culture not met. [facility] Urine, clean voided 11/01/2024 8:13 PM CDT 11/01/2024 8:17 PM CDT us Leela Sandhu COMPLEX HUMAN RESOURCES MANAGER LAB MICROBIOLOGY - GENERA L ORDERABLES Final Result [facility] Department [place] [address] * X-ray chest 1 view (11/01/2024 8:06 [...] by: Jacobo Grace M.D. us Leela Sandhu COMPLEX HUMAN RESOURCES MANAGER IMG XR PROCEDURES Final R esult * POC Blood Gas and Chemistries, Arterial - (11/01/2024 7:56 PM CDT) Pathologist [facility] Lactate POC 1.1 0.7 - 2.0 mmol/L Blood 11/01/2024 7:56 PM CDT 11/01/2024 7:56 PM CDT us Agustina Li MD PhD LAB POCT ORDERABLES - DEVIC E Final Result [facility] Department of Laboratories [place], [place] [id number] * eGFR (11/01/2024 7:51 PM CDT) Pathologist [facility] eGFR >90 >=60 mL/min/1. 73 m2 Comment: [...] PM CDT 11/01/2024 8:04 PM CDT us eLela Sandhu COMPLEX HUMAN RESOURCES MANAGER LAB BLOOD ORDERABLES Lila dawson Result [facility] Department [place] [address] * (ABNORMAL) Differential, auto (11/01/2024 7:51 PM CDT) Neutrophil abs 5.25 1.50 - 6.50 K/cumm Imm gran abs 0.08 0.00 - 0.10 K/cumm [facility] Lymphocyte abs 0.44(L) 0.80 - 3.30 K/cumm [facility] Monocyte abs 1.00(H) 0.20 - 0.80 K/cumm [facility] Eosinophil abs 0.03 0.00 - 0.50 K/cumm [facility] Basophil abs 0.02 0.00 - 0.10 K/cumm [facility] Neutrophil pct 76.9 % [facility] Comment: Interpretive Data Percent cell count reference ranges are not reported, since discordance with absolute values may lead to misinterpretation of CBC data. Current Interpretive Data was last revised on 2017. Imm gran pct 1.2 % [facility] Comment: Interpretive Data Percent cell count reference ranges are not reported, since discordance with absolute values may lead to misinterpretation of CBC data. Current Interpretive Data was last revised on 2017. Lymphocyte pct 6.5 % [facility] Comment: Interpretive Data Percent cell count reference ranges are not reported, since discordance with absolute values may lead to misinterpretation of CBC data. Current Interpretive Data was last revised on 2017. Monocyte pct 14.7 % [facility] Comment: Interpretive Data Percent cell count reference ranges are not reported, since discordance with absolute values may lead to misinterpretation of CBC data. Current Interpretive Data was last revised on 2017. Eosinophil pct 0.4 % [facility] Comment: Interpretive Data Percent cell count reference ranges are not reported, since discordance with absolute values may lead to misinterpretation of CBC data. Current Interpretive Data was last revised on 2017. Basophil pct 0.3 % [facility] Comment: Interpretive Data Percent cell count reference ranges are not reported, since discordance with absolute values may lead to misinterpretation of CBC data. Current Interpretive Data was last revised on 2017. Blood 11/01/2024 7:51 PM CDT 11/01/2024 8:04 PM CDT us Leela Sandhu COMPLEX HUMAN RESOURCES MANAGER LAB BLOOD ORDERABLES Lila dawson Result [facility] Department [place] [address] * (ABNORMAL) CBC with auto differential (11/01/2024 7:51 PM CDT) Pathologist [facility] WBC 6.82 3.80 - 9.90 K/cumm Hgb 10.8(L) 13.0 - 17.5 g/dL [facility] Hct 33.1(L) 38.9 - 50.3 % [facility] Plt 225 150 - 400 K/cumm [facility] MPV 10.8 9.1 - 12.3 fL [facility] RBC 3.39(L) 4.30 - 5.80 M/cumm [facility] MCV 97.6(H) 81.3 - 96.4 fL [facility] MCH 31.9 27.1 - 33.3 pg [facility] MCHC 32.6 32.3 - 35.7 g/dL [facility] RDW CV 17.9(H) 11.1 - 14.9 % [facility] RDW SD 64.5(H) 35.7 - 48.1 fL [facility] NRBC abs 0.00 0.00 - 0.01 K/cumm [facility] Blood 11/01/2024 7:51 PM CDT 11/01/2024 8:04 PM CDT Leela Sandhu COMPLEX HUMAN RESOURCES MANAGER LAB BLOOD ORDERABLES Lila l Result Performing Organization Address City/[facility] Co de Phone Number [facility] [place] [address] * (ABNORMAL) Protime-INR (11/01/2024 7:51 PM CDT) PT 22.3(H) 9.7 - 13.0 sec INR 2.04(H) 0.90 - 1.20 [facility] Comment: Interpretive data Oral anticoagulant therapeutic ranges: Venous thromboembolism prophylaxis or treatment: 2.0-3.0 CARDIOLOGY Standard range: 2.0-3.0 High-intensity range: 2.5-3.5 Refer to indication-specific guidelines for appropriate target ranges for prosthetic heart valve replacement. Current interpretive data was last revised on 2019. Blood 11/01/2024 7:51 PM CDT 11/01/2024 8:06 PM CDT Leela Sandhu COMPLEX HUMAN RESOURCES MANAGER LAB BLOOD ORDERABLES Lila l Result Performing Organization Address City/[facility]/ZIP Co de Phone Number [facility] [place] [address] * (ABNORMAL) Comprehensive metabolic panel (11/01/2024 7:51 PM CDT) Sodium 134(L) 135 - 145 mmol/L Potassium, pl 4.2 3.3 - 4.9 mmol/L [facility] Chloride 100 97 - 110 mmol/L [facility] CO2 24 22 - 32 mmol/L [facility] Anion gap 10 2 - 15 mmol/L [facility] BUN 38(H) 6 - 25 mg/dL [facility] Creatinine 0.80 0.80 - 1.30 mg/dL [facility] Glucose 111 70 - 199 mg/dL [facility] Comment: Interpretive Data Fasting glucose [...] 2022. Calcium 9.3 8.5 - 10.3 mg/dL [facility] Bilirubin, total 0.6 0.1 - 1.2 mg/dL [facility] Protein, pl 7.2 6.5 - 8.5 g/dL [facility] Albumin 3.7 3.5 - 5.0 g/dL [facility] Alk phos 559(H) 40 - 130 Units/L [facility] ALT 118(H) 7 - 55 Units/L [facility] AST 95(H) 10 - 50 Units/L [facility] Blood 11/01/2024 7:51 PM CDT 11/01/2024 8:04 PM CDT us Leela Sandhu COMPLEX HUMAN RESOURCES MANAGER LAB BLOOD ORDERABLES Lila dawson Result [facility] Department [place] [address] * Respiratory pathogen panel Nasopharyngeal (11/01/2024 7:44 PM CDT) Pathologist [facility] Influenza A RNA Not Detected Not Detected Influenza B RNA Not Detected Not Detected [facility] RSV RNA Not Detected Not Detected [facility] COVID-19 RNA Not Detected Not Detected [facility] Coronavirus 229E RNA Not Detected Not Detected [facility] Coronavirus HKU1 RNA Not Detected Not Detected [facility] Coronavirus NL63 RNA Not Detected Not Detected [facility] Coronavirus OC43 RNA Not Detected Not Detected [facility] Adenovirus DNA Not Detected Not Detected [facility] Metapneumovirus RNA Not Detected Not Detected [facility] Rhinovirus/Enterov irus RNA Not Detected Not Detected [facility] Parainfluenza 1 RNA Not Detected Not Detected [facility] Parainfluenza 2 RNA Not Detected Not Detected [facility] Parainfluenza 3 RNA Not Detected Not Detected [facility] Parainfluenza 4 RNA Not Detected Not Detected [facility] B. pertussis DNA Not Detected Not Detected [facility] B. parapertussis DNA Not Detected Not Detected [facility] C. pneumoniae DNA Not Detected Not Detected [facility] M. pneumoniae DNA Not Detected Not Detected [facility] Nasopharyngeal 11/01/2024 7: 44 PM CDT 11/01/2024 7:54 PM CDT Narrative [facility] - 11/01/2024 8:51 PM CDT Is the Patient experiencing symptoms consistent with COVID?->Yes Surveillance testing for transplant patient?->No Interpretive Data The [employer] FilmArray Respiratory Panel (RP2.1) assay is a [...] assay has FDA clearance for testing of COMPLEX HUMAN RESOURCES MANAGER swabs. The performance of additional specimen types has been assessed by the performing laboratory. The performance characteristics of this assay have been determined by [facility] Molecular Infectious Disease Laboratory. Current interpretive data was last revised on 22. Leela Sandhu COMPLEX HUMAN RESOURCES MANAGER LAB MICROBIOLOGY - GENERA L ORDERABLES Final Result [facility] Department [place] [address] * (ABNORMAL) Protime-INR (10/30/2024 9:59 AM CDT) INR 1.4(H) [facility] Comment: Reference Range 0.9-1.1 Moderate-intensity Warfarin Therapy 2.0-3.0 Higher-intensity Warfarin Therapy 3.0-4.0 PT 14.8(H) 9.0 - 11.5 sec [facility] Comment: For additional information, please refer to http://education.Clicko/faq/GNW776 (This link is being provided for informational/ educational purposes only.) Blood 10/30/2024 9:59 AM CDT 10/30/2024 9:59 AM CDT Narrative [facility] - 10/30/2024 3:19 PM CDT FASTING:NO FASTING: NO us Chris Hart MD LAB BLOOD ORDERABLES Final Result Performing Organization Address City/[facility] Co de Phone Number [facility] [address] [place] [address] * eGFR (10/28/2024 1:00 PM CDT) eGFR [...] was last reviewed 2021. Testing performed by: [facility], [address] [place] [address] Blood 10/28/2024 1:00 PM CDT 10/28/2024 1:36 PM CDT us Agustina Li MD PhD LAB BLOOD ORDERABLES Final Result Performing Organization Address City/[facility]/ZIP Co de Phone Number [facility] [address] Department [place] [address] * (ABNORMAL) Differential, auto (10/28/2024 1:00 PM CDT) Neutrophil abs 3.39 1.50 - 6.50 K/cumm Comment:Testing performed by : [facility], [facility], [address] [place] [address] Imm gran abs 0.02 0.00 - 0.10 K/cumm [facility] Comment:Testing performed by : [facility], [facility], [address] [place] [address] Lymphocyte abs 0.48(L) 0.80 - 3.30 K/cumm [facility] Comment:Testing performed by : [facility], [facility], [address] [place] [address] Monocyte abs 0.67 0.20 - 0.80 K/cumm [facility] Comment:Testing performed by : [facility], [facility], [address] [place] [address] Eosinophil abs 0.07 0.00 - 0.50 K/cumm [facility] Comment:Testing performed by : [facility], [facility], [address] [place] [address] Basophil abs 0.01 0.00 - 0.10 K/cumm [facility] Comment:Testing performed by : [facility], [address] [place] [address] Neutrophil pct 73.2 % [facility] Comment: Interpretive Data Percent cell count reference ranges are not reported, since discordance with absolute values may lead to misinterpretation of CBC data. Current Interpretive Data was last revised on 2017. Testing performed by: [facility], [address] [place] [address] Imm gran pct 0.4 % [facility] Comment: Interpretive Data Percent cell count reference ranges are not reported, since discordance with absolute values may lead to misinterpretation of CBC data. Current Interpretive Data was last revised on 2017. Testing performed by: [facility], [address] [place] [address] Lymphocyte pct 10.3 % [facility] Comment: Interpretive Data Percent cell count reference ranges are not reported, since discordance with absolute values may lead to misinterpretation of CBC data. Current Interpretive Data was last revised on 2017. Testing performed by: [facility], [facility], [address] [place] [address] Monocyte pct 14.4 % [facility] Comment: Interpretive Data Percent cell count reference ranges are not reported, since discordance with absolute values may lead to misinterpretation of CBC data. Current Interpretive Data was last revised on 2017. Testing performed by: [facility], [facility], [address] [place] [address] Eosinophil pct 1.5 % [facility] Comment: Interpretive Data Percent cell count reference ranges are not reported, since discordance with absolute values may lead to misinterpretation of CBC data. Current Interpretive Data was last revised on 2017. Testing performed by: [facility], [facility], [address] [place] [address] Basophil pct 0.2 % [facility] Comment: Interpretive Data Percent cell count reference ranges are not reported, since discordance with absolute values may lead to misinterpretation of CBC data. Current Interpretive Data was last revised on 2017. Testing performed by: [facility], [facility], [address] [place] [address] Blood 10/28/2024 1:00 PM CDT 10/28/2024 1:08 PM CDT us Agustina Li MD PhD LAB BLOOD ORDERABLES Final Result [facility] [address] [facility]. [place] [address] * (ABNORMAL) CBC with auto differential (10/28/2024 1:00 PM CDT) WBC 4.64 3.80 - 9.90 K/cumm Comment:Testing performed by : [place] [address], [address], [place] [address] Hgb 10.2(L) 13.0 - 17.5 g/dL [facility] Comment:Testing performed by : [place] [address], [address], [place] [address] Hct 32.1(L) 38.9 - 50.3 % [facility] Comment:Testing performed by : [place] [address], [address], [place] [address] Plt 186 150 - 400 K/cumm [facility] Comment:Testing performed by : [place] [address] [place] [address] MPV 10.0 9.1 - 12.3 fL [facility] Comment:Testing performed by : [place] [address], [place] [address] RBC 3.13(L) 4.30 - 5.80 M/cumm [facility] Comment:Testing performed by : [place] [address], [place] [address] MCV 102.6(H) 81.3 - 96.4 fL [facility] Comment:Testing performed by : [place] [address], [place] [address] MCH 32.6 27.1 - 33.3 pg [facility] Comment:Testing performed by : [place] [address], [address], [place] [address] MCHC 31.8(L) 32.3 - 35.7 g/dL [facility] Comment:Testing performed by : [place] [address], [address] [place] [address] RDW CV 18.2(H) 11.1 - 14.9 % [facility] Comment:Testing performed by : [place] [address], [place] [address] RDW SD 66.8(H) 35.7 - 48.1 fL [facility] Comment:Testing performed by : [facility], [facility], [address] [place] [address] ANC Prelim 3.39 1.50 - 6.50 K/cumm [facility] Comment: Interpretive Data The rapid ANC is a preliminary automated count and may vary from the final ANC (Neut Abs) reported in the WBC differential that follows. Current interpretive data was last revised 2024. Testing performed by: [facility], [facility], [address] [place] [address] Blood 10/28/2024 1:00 PM CDT 10/28/2024 1:08 PM CDT Agustina Li MD PhD LAB BLOOD ORDERABLES Final Result Performing Organization Address [facility] Co de Phone Number [facility] [address] [address] [place] [place] [phone] * (ABNORMAL) Cancer antigen 19-9 (10/28/2024 1:00 PM CDT) Pathologist [facility] CA 19-9 ag 590.0(H) 0.0 - 35.0 units/mL Comment: Interpretive Data The [employer] CA 19-9 assay procedure was used. Results from different manufacturers or methods may not be comparable. Serial testing should be performed using the same method. Testing performed by: [facility], [address] [place] [address], [place]., [address] Blood 10/28/2024 1:00 PM CDT 10/28/2024 2:33 PM CDT Katie Reeder MD LAB BLOOD ORDERABLES Final Resul t Performing Organization Address [facility] Co de Phone Number [facility] [address] [address] [place]. [facility] [place] [address] * (ABNORMAL) Protime-INR (10/28/2024 1:00 PM CDT) PT 15.3(H) 9.7 - 13.0 sec Comment:Testing performed by : [facility], [address] [place] [address] INR 1.41(H) 0.90 - 1.20 [facility] Comment: Interpretive data Oral anticoagulant therapeutic ranges: Venous thromboembolism prophylaxis or treatment: 2.0-3.0 CARDIOLOGY Standard range: 2.0-3.0 High-intensity range: 2.5-3.5 Refer to indication-specific guidelines for appropriate target ranges for prosthetic heart valve replacement. Current interpretive data was last revised on 2019. Testing performed by: [facility], [address] [place] [address] Blood 10/28/2024 1:00 PM CDT 10/28/2024 1:36 PM CDT Agustina Li MD PhD LAB BLOOD ORDERABLES Final Result [facility] [address] [place] [address] * (ABNORMAL) Comprehensive metabolic panel (10/28/2024 1:00 PM CDT) Sodium 136 135 - 145 mmol/L Comment:Testing performed by : [facility], [address] [place] [address] Potassium, pl 4.0 3.3 - 4.9 mmol/L [facility] Comment:Testing performed by : [facility], [address] [place] [address] Chloride 103 97 - 110 mmol/L [facility] Comment:Testing performed by : [facility], [address] [place] [address] CO2 22 22 - 32 mmol/L [facility] Comment:Testing performed by : [facility], [address] [place] [address] Anion gap 11 2 - 15 mmol/L [facility] Comment:Testing performed by : [facility], [address], [place] [place] [address] BUN 38(H) 6 - 25 mg/dL [facility] Comment:Testing performed by : [facility], [address], [place] [address] Creatinine 0.80 0.80 - 1.30 mg/dL [facility] Comment:Testing performed by : [facility], [address], [place] [address] Glucose 126 70 - 199 mg/dL [facility] Comment: [...] was last revised 2022. Testing performed by: [facility], [address], [place] [address] Calcium 8.8 8.5 - 10.3 mg/dL [facility] Comment:Testing performed by : [facility], [address], [place] [address] Bilirubin, total 0.4 0.1 - 1.2 mg/dL [facility] Comment:Testing performed by : [facility], [address], [place] [address] Protein, pl 7.0 6.5 - 8.5 g/dL [facility] Comment:Testing performed by : [facility], [address], [place] [address] Albumin 3.9 3.5 - 5.0 g/dL [facility] Comment:Testing performed by : [facility], [address], [place] [address] Alk phos 408(H) 40 - 130 Units/L [facility] Comment:Testing performed by : [facility], [address], [place] [address] ALT 64(H) 7 - 55 Units/L STAN STAPLETON Comment:Testing performed by : [facility], [address], [place] [address] AST 53(H) 10 - 50 Units/L STAN STAPLETON Comment:Testing performed by : [facility], [address], [place] [address] Blood 10/28/2024 1:00 PM CDT 10/28/2024 1:36 PM CDT us Agustina Li MD PhD LAB BLOOD ORDERABLES Final Result Performing Organization Address [facility]/ZIP Co de Phone Number [facility] [address] [place] [address] * (ABNORMAL) Protime-INR (10/26/2024 8:11 AM CDT) INR 1.4(H) [employer] [place] Comment: Reference Range 0.9-1.1 Moderate-intensity Warfarin Therapy 2.0-3.0 Higher-intensity Warfarin Therapy 3.0-4.0 PT 14.6(H) 9.0 - 11.5 sec [facility] [place] Comment: For additional information, please refer to http://education.Clicko/faq/LIS522 (This link is being provided for informational/ educational purposes only.) Blood 10/26/2024 8:11 AM CDT 10/26/2024 8:11 AM CDT us Chris Hart MD LAB BLOOD ORDERABLES Final Result Performing Organization Address City/[facility]/ZIP Co de Phone Number [facility] [address] [place] [address] * eGFR (10/23/2024 3:26 AM CDT) eGFR [...] MD LAB BLOOD ORDERABLES Final Resul t [facility] [place] [address] * (ABNORMAL) Differential, auto (10/23/2024 3:26 AM CDT) Pathologist [facility] Neutrophil abs 4.28 1.50 - 6.50 K/cumm Imm gran abs 0.07 0.00 - 0.10 K/cumm [facility] Lymphocyte abs 0.60(L) 0.80 - 3.30 K/cumm [facility] Monocyte abs 0.79 0.20 - 0.80 K/cumm [facility] Eosinophil abs 0.06 0.00 - 0.50 K/cumm [facility] Basophil abs 0.02 0.00 - 0.10 K/cumm [facility] Neutrophil pct 73.6 % [facility] Comment: Interpretive Data Percent cell count reference ranges are not reported, since discordance with absolute values may lead to misinterpretation of CBC data. Current Interpretive Data was last revised on 2017. Imm gran pct 1.2 % [facility] Comment: Interpretive Data Percent cell count reference ranges are not reported, since discordance with absolute values may lead to misinterpretation of CBC data. Current Interpretive Data was last revised on 2017. Lymphocyte pct 10.3 % [facility] Comment: Interpretive Data Percent cell count reference ranges are not reported, since discordance with absolute values may lead to misinterpretation of CBC data. Current Interpretive Data was last revised on 2017. Monocyte pct 13.6 % [facility] Comment: Interpretive Data Percent cell count reference ranges are not reported, since discordance with absolute values may lead to misinterpretation of CBC data. Current Interpretive Data was last revised on 2017. Eosinophil pct 1.0 % [facility] Comment: Interpretive Data Percent cell count reference ranges are not reported, since discordance with absolute values may lead to misinterpretation of CBC data. Current Interpretive Data was last revised on 2017. Basophil pct 0.3 % [facility] Comment: Interpretive Data Percent cell count reference ranges are not reported, since discordance with absolute values may lead to misinterpretation of CBC data. Current Interpretive Data was last revised on 2017. Blood 10/23/2024 3:26 AM CDT 10/23/2024 3:49 AM CDT us Jennifer Jeff MD LAB BLOOD ORDERABLES Final Resul t [facility] [place] [address] * (ABNORMAL) CBC with auto differential (10/23/2024 3:26 AM CDT) WBC 5.82 3.80 - 9.90 K/cumm Hgb 9.3(L) 13.0 - 17.5 g/dL [facility] Hct 28.8(L) 38.9 - 50.3 % [facility] Plt 155 150 - 400 K/cumm [facility] MPV 10.4 9.1 - 12.3 fL [facility] RBC 2.89(L) 4.30 - 5.80 M/cumm [facility] MCV 99.7(H) 81.3 - 96.4 fL [facility] MCH 32.2 27.1 - 33.3 pg [facility] MCHC 32.3 32.3 - 35.7 g/dL [facility] RDW CV 18.7(H) 11.1 - 14.9 % [facility] RDW SD 65.2(H) 35.7 - 48.1 fL [facility] NRBC abs 0.00 0.00 - 0.01 K/cumm [facility] Blood 10/23/2024 3:26 AM CDT 10/23/2024 3:49 AM CDT Jennifer Jeff MD LAB BLOOD ORDERABLES Final Resul t Performing Organization Address City/[facility] Co de Phone Number [facility] [place] [address] * (ABNORMAL) Phosphorus (10/23/2024 3:26 AM CDT) [facility] Phosphorus, pl 2.1(L) 2.3 - 4.5 mg/dL Blood 10/23/2024 3:26 AM CDT 10/23/2024 3:49 AM CDT Jennifer Jeff MD LAB BLOOD ORDERABLES Final Resul t [facility] [place] [address] * (ABNORMAL) Comprehensive metabolic panel (10/23/2024 3:26 AM CDT) [facility] Sodium 139 135 - 145 mmol/L Potassium, pl 4.4 3.3 - 4.9 mmol/L [facility] Chloride 105 97 - 110 mmol/L [facility] CO2 27 22 - 32 mmol/L [facility] Anion gap 7 2 - 15 mmol/L [facility] BUN 27(H) 6 - 25 mg/dL [facility] Creatinine 0.98 0.80 - 1.30 mg/dL [facility] Glucose 151 70 - 199 mg/dL [facility] Comment: Interpretive Data Fasting glucose [...] 2022. Calcium 8.5 8.5 - 10.3 mg/dL [facility] Bilirubin, total 0.4 0.1 - 1.2 mg/dL [facility] Protein, pl 6.2(L) 6.5 - 8.5 g/dL [facility] Albumin 3.2(L) 3.5 - 5.0 g/dL [facility] Alk phos 417(H) 40 - 130 Units/L [facility] ALT 62(H) 7 - 55 Units/L [facility] AST 55(H) 10 - 50 Units/L [facility] Blood 10/23/2024 3:26 AM CDT 10/23/2024 3:49 AM CDT Jennifer Jeff MD LAB BLOOD ORDERABLES Final Resul t [facility] [place] [address] * TRANSESOPHAGEAL ECHO (MARK) W DOPPLER/CF WO CONTRAST (10/22/2024 2:40 PM CDT) Anatomical Region Laterality Modality Echocardiography 10/22/2024 2:0 1 PM CDT Narrative 10/23/2024 2:16 AM CDT [facility] [place] [address] Transesophageal Echocardiographic Report Patient Name: SULMA BAZAN A : 1950 (74y 3m) Gender: M Study Date: 10/22/2024 02:01:26 PM Ht(Inch): Wt(Lb): BSA: Memory Care Program Resident: Location: [id number] Order Provider: ELSIE FLORES BMI: Ref Provider: [...] Procedure Note Jeffry Bhatt MD - 10/23/2024 [facility] [place] [address] Transesophageal Echocardiographic Report Patient Name: SULMA BAZAN A : 1950 (74y 3m) Gender: M Study Date: 10/22/2024 02:01:26 PM Ht(Inch): Wt(Lb): BSA: Memory Care Program Resident: Location: [id number] Order Provider: ELSIE FLORES BMI: Ref Provider: [...] P2. Mean MV gradient 1 mmHg. MV [id number]. Aortic Valve: Trileaflet aortic valve. The aortic [...] leaflets, marked prolapse of P2, lesser extent [id number], partial flail medial P2. Moderate to severe [...] Jeffry Bhatt MD 10/23/2024 2:15:59 AM CDT us Elsie Flores MD CV ECHO PROCEDURES Final Result * eGFR (10/22/2024 1:43 AM CDT) eGFR 89 >=60 mL/min/1. [...] MD LAB BLOOD ORDERABLES Final Resul t [facility] [place] [address] * (ABNORMAL) Differential, auto (10/22/2024 1:43 AM CDT) Neutrophil abs 4.29 1.50 - 6.50 K/cumm Imm gran abs 0.08 0.00 - 0.10 K/cumm [facility] Lymphocyte abs 0.64(L) 0.80 - 3.30 K/cumm [facility] Monocyte abs 0.71 0.20 - 0.80 K/cumm [facility] Eosinophil abs 0.06 0.00 - 0.50 K/cumm [facility] Basophil abs 0.02 0.00 - 0.10 K/cumm [facility]NER [facility] Neutrophil pct 74.1 % [facility] Comment: Interpretive Data Percent cell count reference ranges are not reported, since discordance with absolute values may lead to misinterpretation of CBC data. Current Interpretive Data was last revised on 2017. Imm gran pct 1.4 % [facility] Comment: Interpretive Data Percent cell count reference ranges are not reported, since discordance with absolute values may lead to misinterpretation of CBC data. Current Interpretive Data was last revised on 2017. Lymphocyte pct 11.0 % [facility] Comment: Interpretive Data Percent cell count reference ranges are not reported, since discordance with absolute values may lead to misinterpretation of CBC data. Current Interpretive Data was last revised on 2017. Monocyte pct 12.2 % [facility] Comment: Interpretive Data Percent cell count reference ranges are not reported, since discordance with absolute values may lead to misinterpretation of CBC data. Current Interpretive Data was last revised on 2017. Eosinophil pct 1.0 % [facility] Comment: Interpretive Data Percent cell count reference ranges are not reported, since discordance with absolute values may lead to misinterpretation of CBC data. Current Interpretive Data was last revised on 2017. Basophil pct 0.3 % [facility] Comment: Interpretive Data Percent cell count reference ranges are not reported, since discordance with absolute values may lead to misinterpretation of CBC data. Current Interpretive Data was last revised on 2017. Blood 10/22/2024 1:43 AM CDT 10/22/2024 1:58 AM CDT Jennifer Jeff MD LAB BLOOD ORDERABLES Final Resul t Performing Organization Address [facility] Co de Phone Number [facility] [place] [address] * (ABNORMAL) CBC with auto differential (10/22/2024 1:43 AM CDT) [facility] WBC 5.80 3.80 - 9.90 K/cumm Hgb 9.8(L) 13.0 - 17.5 g/dL [facility] Hct 30.2(L) 38.9 - 50.3 % [facility] Plt 177 150 - 400 K/cumm [facility] MPV 10.4 9.1 - 12.3 fL [facility] RBC 3.06(L) 4.30 - 5.80 M/cumm [facility] MCV 98.7(H) 81.3 - 96.4 fL [facility] MCH 32.0 27.1 - 33.3 pg [facility] MCHC 32.5 32.3 - 35.7 g/dL [facility] RDW CV 18.7(H) 11.1 - 14.9 % [facility] RDW SD 66.1(H) 35.7 - 48.1 fL [facility] NRBC abs 0.02(H) 0.00 - 0.01 K/cumm [facility] Blood 10/22/2024 1:43 AM CDT 10/22/2024 1:58 AM CDT Jennifer Jeff MD LAB BLOOD ORDERABLES Final Resul t Performing Organization Address City/[facility]/ZIP Co de Phone Number [facility] [place] [address] * Type and screen (10/22/2024 1:43 AM CDT) Minna, indirect Negative ABO Rh A Positive [facility] Blood 10/22/2024 1:43 AM CDT 10/22/2024 1:57 AM CDT Narrative [facility] - 10/22/2024 2:55 AM CDT Has the patient had Daratumumab or Isatuximab in the past 6 months?->Unknown Jennifer Jeff MD LAB BLOOD BANK TEST ORDERABLES F inal Result Performing Organization Address [facility] Co de Phone Number [facility] [place] [address] * Uric acid (10/22/2024 1:43 AM CDT) [facility] Uric acid 4.3 3.0 - 8.0 mg/dL Blood 10/22/2024 1:43 AM CDT 10/22/2024 1:58 AM CDT Narrative [facility] - 10/22/2024 2:33 AM CDT Saturday and only. Morning draw. . Jennifer Jeff MD LAB BLOOD ORDERABLES Final Resul t Performing Organization Address [facility] Co de Phone Number [facility] [place] [address] * Phosphorus (10/22/2024 1:43 AM CDT) Pathologist [facility] Phosphorus, pl 2.6 2.3 - 4.5 mg/dL Blood 10/22/2024 1:43 AM CDT 10/22/2024 1:58 AM CDT Jennifer Jeff MD LAB BLOOD ORDERABLES Final Resul t Performing Organization Address [facility]/ZIP Co de Phone Number [facility] [place] [address] * (ABNORMAL) Lactate dehydrogenase (LD) (10/22/2024 1:43 AM CDT) Pathologist [facility] Lactate dehydrogenase (LDH) 335(H) 100 - 250 Units/L Blood 10/22/2024 1:43 AM CDT 10/22/2024 1:58 AM CDT Narrative [facility] - 10/22/2024 2:33 AM CDT Saturday and only. Morning draw. us Jennifer Jeff MD LAB BLOOD ORDERABLES Final Resul t [facility] [place] [address] * (ABNORMAL) Comprehensive metabolic panel (10/22/2024 1:43 AM CDT) [facility] Sodium 137 135 - 145 mmol/L Potassium, pl 4.3 3.3 - 4.9 mmol/L [facility] Chloride 100 97 - 110 mmol/L [facility] CO2 26 22 - 32 mmol/L [facility] Anion gap 11 2 - 15 mmol/L [facility] BUN 24 6 - 25 mg/dL [facility] Creatinine 0.89 0.80 - 1.30 mg/dL [facility] Glucose 112 70 - 199 mg/dL [facility] Comment: Interpretive Data Fasting glucose [...] 2022. Calcium 8.9 8.5 - 10.3 mg/dL [facility] Bilirubin, total 0.6 0.1 - 1.2 mg/dL [facility] Protein, pl 6.8 6.5 - 8.5 g/dL [facility] Albumin 3.2(L) 3.5 - 5.0 g/dL [facility] Alk phos 514(H) 40 - 130 Units/L [facility] ALT 89(H) 7 - 55 Units/L [facility] AST 112(H) 10 - 50 Units/L [facility] Blood 10/22/2024 1:43 AM CDT 10/22/2024 1:58 AM CDT us Jennifer Jeff MD LAB BLOOD ORDERABLES Final Resul t Performing Organization Address City/[facility]/ZIP Co de Phone Number [facility] [place] [address] * eGFR (10/21/2024 3:01 AM CDT) eGFR [...] MD LAB BLOOD ORDERABLES Final Resul t [facility] [place] [address] * (ABNORMAL) Differential, auto (10/21/2024 3:01 AM CDT) Neutrophil abs 4.86 1.50 - 6.50 K/cumm Imm gran abs 0.14(H) 0.00 - 0.10 K/cumm [facility] Lymphocyte abs 0.61(L) 0.80 - 3.30 K/cumm [facility]NER [facility] Monocyte abs 0.78 0.20 - 0.80 K/cumm [facility] Eosinophil abs 0.05 0.00 - 0.50 K/cumm [facility] Basophil abs 0.01 0.00 - 0.10 K/cumm [facility] Neutrophil pct 75.2 % [facility] Comment: Interpretive Data Percent cell count reference ranges are not reported, since discordance with absolute values may lead to misinterpretation of CBC data. Current Interpretive Data was last revised on 2017. Imm gran pct 2.2 % [facility] Comment: Interpretive Data Percent cell count reference ranges are not reported, since discordance with absolute values may lead to misinterpretation of CBC data. Current Interpretive Data was last revised on 2017. Lymphocyte pct 9.5 % [facility] Comment: Interpretive Data Percent cell count reference ranges are not reported, since discordance with absolute values may lead to misinterpretation of CBC data. Current Interpretive Data was last revised on 2017. Monocyte pct 12.1 % [facility] Comment: Interpretive Data Percent cell count reference ranges are not reported, since discordance with absolute values may lead to misinterpretation of CBC data. Current Interpretive Data was last revised on 2017. Eosinophil pct 0.8 % [facility] Comment: Interpretive Data Percent cell count reference ranges are not reported, since discordance with absolute values may lead to misinterpretation of CBC data. Current Interpretive Data was last revised on 2017. Basophil pct 0.2 % [facility] Comment: Interpretive Data Percent cell count reference ranges are not reported, since discordance with absolute values may lead to misinterpretation of CBC data. Current Interpretive Data was last revised on 2017. Blood 10/21/2024 3:01 AM CDT 10/21/2024 3:18 AM CDT Jennifer Jeff MD LAB BLOOD ORDERABLES Final Resul t Performing Organization Address [facility] de Phone Number [facility] [place] [address] * (ABNORMAL) CBC with auto differential (10/21/2024 3:01 AM CDT) Pathologist [facility] WBC 6.45 3.80 - 9.90 K/cumm Hgb 9.3(L) 13.0 - 17.5 g/dL [facility] Hct 27.8(L) 38.9 - 50.3 % [facility] Plt 164 150 - 400 K/cumm [facility] MPV 10.0 9.1 - 12.3 fL [facility] RBC 2.82(L) 4.30 - 5.80 M/cumm [facility] MCV 98.6(H) 81.3 - 96.4 fL [facility] MCH 33.0 27.1 - 33.3 pg [facility] MCHC 33.5 32.3 - 35.7 g/dL [facility] RDW CV 18.2(H) 11.1 - 14.9 % [facility] RDW SD 63.2(H) 35.7 - 48.1 fL [facility] NRBC abs 0.02(H) 0.00 - 0.01 K/cumm [facility] Blood 10/21/2024 3:01 AM CDT 10/21/2024 3:18 AM CDT Jennifer Jeff MD LAB BLOOD ORDERABLES Final Resul t Performing Organization Address City/[facility] Co de Phone Number [facility] [place] [address] * (ABNORMAL) aPTT (10/21/2024 3:01 AM CDT) [...] BLOOD ORDERABLES Final Result Performing Organization Address [facility] de Phone Number [facility] [place] [address] * (ABNORMAL) Protime-INR (10/21/2024 3:01 AM CDT) Pathologist [facility] PT 13.5(H) 9.7 - 13.0 sec INR 1.24(H) 0.90 - 1.20 [facility] Comment: Interpretive data Oral anticoagulant therapeutic ranges: Venous thromboembolism prophylaxis or treatment: 2.0-3.0 CARDIOLOGY Standard range: 2.0-3.0 High-intensity range: 2.5-3.5 Refer to indication-specific guidelines for appropriate target ranges for prosthetic heart valve replacement. Current interpretive data was last revised on 2019. Blood 10/21/2024 3:01 AM CDT 10/21/2024 3:14 AM CDT Edgardo Castro MD LAB BLOOD ORDERABLES Final Result Performing Organization Address [facility] de Phone Number [facility] [place] [address] * (ABNORMAL) Phosphorus (10/21/2024 3:01 AM CDT) Pathologist [facility] Phosphorus, pl 2.1(L) 2.3 - 4.5 mg/dL Blood 10/21/2024 3:01 AM CDT 10/21/2024 3:18 AM CDT us Jennifer Jeff MD LAB BLOOD ORDERABLES Final Resul t [facility] [place] [address] * (ABNORMAL) Comprehensive metabolic panel (10/21/2024 3:01 AM CDT) Sodium 138 135 - 145 mmol/L Potassium, pl 4.2 3.3 - 4.9 mmol/L [facility] Chloride 104 97 - 110 mmol/L [facility] CO2 27 22 - 32 mmol/L [facility] Anion gap 7 2 - 15 mmol/L [facility] BUN 26(H) 6 - 25 mg/dL [facility] Creatinine 0.88 0.80 - 1.30 mg/dL [facility] Glucose 126 70 - 199 mg/dL [facility] Comment: Interpretive Data Fasting glucose [...] 2022. Calcium 8.3(L) 8.5 - 10.3 mg/dL [facility] Bilirubin, total 0.4 0.1 - 1.2 mg/dL [facility] Protein, pl 6.4(L) 6.5 - 8.5 g/dL [facility]NER [facility] Albumin 3.0(L) 3.5 - 5.0 g/dL [facility] Alk phos 321(H) 40 - 130 Units/L [facility] ALT 65(H) 7 - 55 Units/L [facility] AST 58(H) 10 - 50 Units/L [facility] Blood 10/21/2024 3:01 AM CDT 10/21/2024 3:18 AM CDT us Jennifer Jeff MD LAB BLOOD ORDERABLES Final Resul t Performing Organization Address City/[facility] Co de Phone Number STAN Cordon [facility] [place] [address] * ECG 12 lead (10/20/2024 1:34 PM CDT) Ventricular Rate EKG/Min 60 BPM [facility] Atrial Rate 60 BPM [facility] DC-Interval (MSEC) 206 ms [facility] QRS-Interval (MSEC) 96 ms [facility] QT-Interval (MSEC) 446 ms [facility] QTc 446 ms [facility] P [place] 18 degrees [facility] R [place] -28 degrees [facility] T [place] 3 degrees [facility] Diagnosis Atrial-paced rhythm Minimal voltage criteria for LVH, may be normal variant ( R in aVL ) Abnormal ECG When compared with ECG of 07-SEP-2024 11:34, T wave inversion no longer evident in Anterolateral leads QT has shortened Confirmed by JOSEE AKINS M.D ([id number]) on 10/21/2024 9:32:38 AM [facility] 10/20/2024 1:34 PM CDT 10/21/2024 9:32 AM CDT us Edgardo aCstro MD ECG ORDERABLES Final Resul t Performing Organization Address [facility] Co de Phone Number [facility] * Heparin anti factor Xa activity (10/20/2024 12:10 PM CDT) Anti Factor Xa 1.35 IUnits/mL Comment: Interpretive [...] PM CDT 10/20/2024 12:29 PM CDT Narrative [facility] - 10/20/2024 12:50 PM CDT Please draw at 1215 - timing is important. Thanks! us Edgardo Castro MD LAB BLOOD ORDERABLES Final Result [facility] [place] [address] * eGFR (10/20/2024 3:02 AM CDT) eGFR [...] MD LAB BLOOD ORDERABLES Final Resul t [facility] [place] [address] * (ABNORMAL) Differential, auto (10/20/2024 3:02 AM CDT) Neutrophil abs 4.13 1.50 - 6.50 K/cumm Imm gran abs 0.23(H) 0.00 - 0.10 K/cumm [facility] Lymphocyte abs 0.75(L) 0.80 - 3.30 K/cumm [facility] Monocyte abs 0.65 0.20 - 0.80 K/cumm [facility] Eosinophil abs 0.06 0.00 - 0.50 K/cumm [facility] Basophil abs 0.01 0.00 - 0.10 K/cumm [facility] Neutrophil pct 70.9 % [facility] Comment: Interpretive Data Percent cell count reference ranges are not reported, since discordance with absolute values may lead to misinterpretation of CBC data. Current Interpretive Data was last revised on 2017. Imm gran pct 3.9 % [facility] Comment: Interpretive Data Percent cell count reference ranges are not reported, since discordance with absolute values may lead to misinterpretation of CBC data. Current Interpretive Data was last revised on 2017. Lymphocyte pct 12.9 % [facility] Comment: Interpretive Data Percent cell count reference ranges are not reported, since discordance with absolute values may lead to misinterpretation of CBC data. Current Interpretive Data was last revised on 2017. Monocyte pct 11.1 % [facility] Comment: Interpretive Data Percent cell count reference ranges are not reported, since discordance with absolute values may lead to misinterpretation of CBC data. Current Interpretive Data was last revised on 2017. Eosinophil pct 1.0 % [facility] Comment: Interpretive Data Percent cell count reference ranges are not reported, since discordance with absolute values may lead to misinterpretation of CBC data. Current Interpretive Data was last revised on 2017. Basophil pct 0.2 % [facility] Comment: Interpretive Data Percent cell count reference ranges are not reported, since discordance with absolute values may lead to misinterpretation of CBC data. Current Interpretive Data was last revised on 2017. Blood 10/20/2024 3:02 AM CDT 10/20/2024 4:36 AM CDT Jennifer Jeff MD LAB BLOOD ORDERABLES Final Resul t [facility] [place] [address] * (ABNORMAL) CBC with auto differential (10/20/2024 3:02 AM CDT) WBC 5.83 3.80 - 9.90 K/cumm Hgb 9.2(L) 13.0 - 17.5 g/dL [facility] Hct 27.9(L) 38.9 - 50.3 % [facility] Plt 167 150 - 400 K/cumm [facility] MPV 10.4 9.1 - 12.3 fL [facility] RBC 2.84(L) 4.30 - 5.80 M/cumm [facility] MCV 98.2(H) 81.3 - 96.4 fL [facility] MCH 32.4 27.1 - 33.3 pg [facility] MCHC 33.0 32.3 - 35.7 g/dL [facility] RDW CV 17.8(H) 11.1 - 14.9 % [facility] RDW SD 61.9(H) 35.7 - 48.1 fL [facility] NRBC abs 0.03(H) 0.00 - 0.01 K/cumm [facility] Blood 10/20/2024 3:02 AM CDT 10/20/2024 4:36 AM CDT Jennifer Jeff MD LAB BLOOD ORDERABLES Final Resul t [facility] [place] [address] * Phosphorus (10/20/2024 3:02 AM CDT) Pathologist [facility] Phosphorus, pl 2.7 2.3 - 4.5 mg/dL Blood 10/20/2024 3:02 AM CDT 10/20/2024 4:36 AM CDT Jennifer Jeff MD LAB BLOOD ORDERABLES Final Resul t Performing Organization Address [facility] Co de Phone Number [facility] [place] [address] * (ABNORMAL) Comprehensive metabolic panel (10/20/2024 3:02 AM CDT) [facility] Sodium 138 135 - 145 mmol/L Potassium, pl 3.5 3.3 - 4.9 mmol/L [facility] Chloride 102 97 - 110 mmol/L [facility] CO2 27 22 - 32 mmol/L [facility] Anion gap 9 2 - 15 mmol/L [facility] BUN 26(H) 6 - 25 mg/dL [facility] Creatinine 0.91 0.80 - 1.30 mg/dL [facility] Glucose 115 70 - 199 mg/dL [facility] Comment: Interpretive Data Fasting glucose [...] 2022. Calcium 8.6 8.5 - 10.3 mg/dL [facility] Bilirubin, total 0.5 0.1 - 1.2 mg/dL [facility] Protein, pl 6.2(L) 6.5 - 8.5 g/dL [facility] Albumin 3.1(L) 3.5 - 5.0 g/dL [facility] Alk phos 289(H) 40 - 130 Units/L [facility] ALT 66(H) 7 - 55 Units/L [facility] AST 59(H) 10 - 50 Units/L [facility] Blood 10/20/2024 3:02 AM CDT 10/20/2024 4:36 AM CDT Jennifre Jeff MD LAB BLOOD ORDERABLES Final Resul t [facility] [place] [address] * eGFR (10/19/2024 12:56 AM CDT) eGFR 89 >=60 mL/min/1. 73 [...] 6 AM CDT 10/19/2024 1:33 AM CDT Jennifer Jeff MD LAB BLOOD ORDERABLES Final Resul t [facility] [place] [address] * (ABNORMAL) Differential, auto (10/19/2024 12:56 AM CDT) Neutrophil abs 4.13 1.50 - 6.50 K/cumm Imm gran abs 0.27(H) 0.00 - 0.10 K/cumm [facility] Lymphocyte abs 0.68(L) 0.80 - 3.30 K/cumm [facility] Monocyte abs 0.83(H) 0.20 - 0.80 K/cumm [facility] Eosinophil abs 0.03 0.00 - 0.50 K/cumm [facility] Basophil abs 0.02 0.00 - 0.10 K/cumm [facility] Neutrophil pct 69.4 % [facility] Comment: Interpretive Data Percent cell count reference ranges are not reported, since discordance with absolute values may lead to misinterpretation of CBC data. Current Interpretive Data was last revised on 2017. Imm gran pct 4.5 % [facility] Comment: Interpretive Data Percent cell count reference ranges are not reported, since discordance with absolute values may lead to misinterpretation of CBC data. Current Interpretive Data was last revised on 2017. Lymphocyte pct 11.4 % [facility] Comment: Interpretive Data Percent cell count reference ranges are not reported, since discordance with absolute values may lead to misinterpretation of CBC data. Current Interpretive Data was last revised on 2017. Monocyte pct 13.9 % [facility] Comment: Interpretive Data Percent cell count reference ranges are not reported, since discordance with absolute values may lead to misinterpretation of CBC data. Current Interpretive Data was last revised on 2017. Eosinophil pct 0.5 % [facility] Comment: Interpretive Data Percent cell count reference ranges are not reported, since discordance with absolute values may lead to misinterpretation of CBC data. Current Interpretive Data was last revised on 2017. Basophil pct 0.3 % [facility] Comment: Interpretive Data Percent cell count reference ranges are not reported, since discordance with absolute values may lead to misinterpretation of CBC data. Current Interpretive Data was last revised on 2017. Blood 10/19/2024 12:5 6 AM CDT 10/19/2024 1:21 AM CDT Jennifer Jeff MD LAB BLOOD ORDERABLES Final Resul t Performing Organization Address [facility] de Phone Number [facility] [place] [address] * (ABNORMAL) CBC with auto differential (10/19/2024 12:56 AM CDT) WBC 5.96 3.80 - 9.90 K/cumm Hgb 9.2(L) 13.0 - 17.5 g/dL [facility] Hct 27.4(L) 38.9 - 50.3 % [facility] Plt 161 150 - 400 K/cumm [facility] MPV 10.1 9.1 - 12.3 fL [facility] RBC 2.83(L) 4.30 - 5.80 M/cumm [facility] MCV 96.8(H) 81.3 - 96.4 fL [facility] MCH 32.5 27.1 - 33.3 pg [facility] MCHC 33.6 32.3 - 35.7 g/dL [facility] RDW CV 17.5(H) 11.1 - 14.9 % [facility] RDW SD 59.7(H) 35.7 - 48.1 fL [facility] NRBC abs 0.03(H) 0.00 - 0.01 K/cumm [facility] Blood 10/19/2024 12:5 6 AM CDT 10/19/2024 1:21 AM CDT Jennifer Jeff MD LAB BLOOD ORDERABLES Final Resul t Performing Organization Address [facility] Co de Phone Number [facility] [place] [address] * (ABNORMAL) aPTT (10/19/2024 12:56 AM CDT) aPTT 39(H) 28 - 38 sec Comment: Interpretive Data Heparin therapeutic range: 66.0 - 100.0 seconds. Range based on correlation with therapeutic heparin activity range of 0.3 - 0.7 Units/mL. Current interpretive data was last revised on 2023. Blood 10/19/2024 12:5 6 AM CDT 10/19/2024 1:44 AM CDT Jennifer Jeff MD LAB BLOOD ORDERABLES Final Resul t Performing Organization Address City/[facility] Co de Phone Number [facility] [place] [address] * (ABNORMAL) Protime-INR (10/19/2024 12:56 AM CDT) PT 13.8(H) 9.7 - 13.0 sec INR 1.27(H) 0.90 - 1.20 [facility] Comment: Interpretive data Oral anticoagulant therapeutic ranges: Venous thromboembolism prophylaxis or treatment: 2.0-3.0 CARDIOLOGY Standard range: 2.0-3.0 High-intensity range: 2.5-3.5 Refer to indication-specific guidelines for appropriate target ranges for prosthetic heart valve replacement. Current interpretive data was last revised on 2019. Blood 10/19/2024 12:5 6 AM CDT 10/19/2024 1:44 AM CDT us Jennifer Jeff MD LAB BLOOD ORDERABLES Final Resul t [facility] [place] [address] * Type and screen (10/19/2024 12:56 AM CDT) ABO Rh A Positive Minna, indirect Negative [facility] Blood 10/19/2024 12:5 6 AM CDT 10/19/2024 1:35 AM CDT Narrative [facility] - 10/19/2024 3:54 AM CDT Has the patient had Daratumumab or Isatuximab in the past 6 months?->Unknown Jennifer Jeff MD LAB BLOOD BANK TEST ORDERABLES F inal Result [facility] [place] [address] * (ABNORMAL) Uric acid (10/19/2024 12:56 AM CDT) Uric acid 2.8(L) 3.0 - 8.0 mg/dL Blood 10/19/2024 12:5 6 AM CDT 10/19/2024 1:24 AM CDT Narrative [facility] - 10/19/2024 2:03 AM CDT Saturday and only. Morning draw. . Jennifer Jeff MD LAB BLOOD ORDERABLES Final Resul t Performing Organization Address City/[facility]/ZIP Co de Phone Number [facility] [place] [address] * Phosphorus (10/19/2024 12:56 AM CDT) Pathologist [facility] Phosphorus, pl 3.0 2.3 - 4.5 mg/dL Blood 10/19/2024 12:5 6 AM CDT 10/19/2024 1:24 AM CDT Jennifer Jeff MD LAB BLOOD [place] [address] * (ABNORMAL) Lactate dehydrogenase (LD) (10/19/2024 12:56 AM CDT) Lactate dehydrogenase (LDH) 251(H) 100 - 250 Units/L Blood 10/19/2024 12:5 6 AM CDT 10/19/2024 1:24 AM CDT Narrative [facility] - 10/19/2024 2:03 AM CDT Saturday and only. Morning draw. us Jennifer Jeff MD LAB BLOOD ORDERABLES Final Resul t [facility] Department [place] [address] * (ABNORMAL) Comprehensive metabolic panel (10/19/2024 12:56 AM CDT) Sodium 138 135 - 145 mmol/L Potassium, pl 3.6 3.3 - 4.9 mmol/L [facility] Chloride 102 97 - 110 mmol/L [facility] CO2 26 22 - 32 mmol/L [facility] Anion gap 10 2 - 15 mmol/L [facility] BUN 27(H) 6 - 25 mg/dL [facility] Creatinine 0.89 0.80 - 1.30 mg/dL [facility] Glucose 147 70 - 199 mg/dL [facility] Comment: Interpretive Data Fasting glucose [...] 2022. Calcium 8.5 8.5 - 10.3 mg/dL [facility] Bilirubin, total 0.6 0.1 - 1.2 mg/dL [facility] Protein, pl 6.3(L) 6.5 - 8.5 g/dL [facility] Albumin 3.1(L) 3.5 - 5.0 g/dL [facility] Alk phos 319(H) 40 - 130 Units/L [facility] ALT 69(H) 7 - 55 Units/L [facility] AST 87(H) 10 - 50 Units/L [facility] Blood 10/19/2024 12:5 6 AM CDT 10/19/2024 1:24 AM CDT us Jennifer Jeff MD LAB BLOOD ORDERABLES Final Resul t Performing Organization Address [facility] Co de Phone Number [facility] [place] [address] * eGFR (10/18/2024 1:19 AM CDT) eGFR [...] MD LAB BLOOD ORDERABLES Final Resul t [facility] [place] [address] * (ABNORMAL) Differential, auto (10/18/2024 1:19 AM CDT) Neutrophil abs 4.55 1.50 - 6.50 K/cumm Imm gran abs 0.31(H) 0.00 - 0.10 K/cumm [facility] Lymphocyte abs 0.79(L) 0.80 - 3.30 K/cumm [facility] Monocyte abs 0.94(H) 0.20 - 0.80 K/cumm [facility] Eosinophil abs 0.02 0.00 - 0.50 K/cumm [facility] Basophil abs 0.02 0.00 - 0.10 K/cumm [facility] Neutrophil pct 68.6 % [facility] Comment: Interpretive Data Percent cell count reference ranges are not reported, since discordance with absolute values may lead to misinterpretation of CBC data. Current Interpretive Data was last revised on 2017. Imm gran pct 4.7 % [facility] Comment: Interpretive Data Percent cell count reference ranges are not reported, since discordance with absolute values may lead to misinterpretation of CBC data. Current Interpretive Data was last revised on 2017. Lymphocyte pct 11.9 % [facility] Comment: Interpretive Data Percent cell count reference ranges are not reported, since discordance with absolute values may lead to misinterpretation of CBC data. Current Interpretive Data was last revised on 2017. Monocyte pct 14.2 % [facility] Comment: Interpretive Data Percent cell count reference ranges are not reported, since discordance with absolute values may lead to misinterpretation of CBC data. Current Interpretive Data was last revised on 2017. Eosinophil pct 0.3 % [facility] Comment: Interpretive Data Percent cell count reference ranges are not reported, since discordance with absolute values may lead to misinterpretation of CBC data. Current Interpretive Data was last revised on 2017. Basophil pct 0.3 % [facility] Comment: Interpretive Data Percent cell count reference ranges are not reported, since discordance with absolute values may lead to misinterpretation of CBC data. Current Interpretive Data was last revised on 2017. Blood 10/18/2024 1:19 AM CDT 10/18/2024 1:34 AM CDT Jennifer Jeff MD LAB BLOOD ORDERABLES Final Resul t Performing Organization Address City/[facility] Co de Phone Number [facility] [place] [address] * (ABNORMAL) CBC with auto differential (10/18/2024 1:19 AM CDT) WBC 6.63 3.80 - 9.90 K/cumm Hgb 9.6(L) 13.0 - 17.5 g/dL [facility] Hct 29.0(L) 38.9 - 50.3 % [facility] Plt 179 150 - 400 K/cumm [facility] MPV 10.3 9.1 - 12.3 fL [facility] RBC 2.99(L) 4.30 - 5.80 M/cumm [facility] MCV 97.0(H) 81.3 - 96.4 fL [facility] MCH 32.1 27.1 - 33.3 pg [facility] MCHC 33.1 32.3 - 35.7 g/dL [facility] RDW CV 17.2(H) 11.1 - 14.9 % [facility] RDW SD 59.3(H) 35.7 - 48.1 fL [facility] NRBC abs 0.02(H) 0.00 - 0.01 K/cumm [facility] Blood 10/18/2024 1:19 AM CDT 10/18/2024 1:34 AM CDT Jennifer Jeff MD LAB BLOOD ORDERABLES Final Resul t Performing Organization Address City/[facility]/ZIP Co de Phone Number [facility] [place] [address] * Phosphorus (10/18/2024 1:19 AM CDT) Phosphorus, pl 3.3 2.3 - 4.5 mg/dL Blood 10/18/2024 1:19 AM CDT 10/18/2024 1:34 AM CDT us Jennifer Jeff MD LAB BLOOD ORDERABLES Final Resul t [facility] [place] [address] * (ABNORMAL) Comprehensive metabolic panel (10/18/2024 1:19 AM CDT) Sodium 137 135 - 145 mmol/L Potassium, pl 3.8 3.3 - 4.9 mmol/L [facility] Chloride 100 97 - 110 mmol/L [facility] CO2 27 22 - 32 mmol/L [facility] Anion gap 10 2 - 15 mmol/L [facility] BUN 32(H) 6 - 25 mg/dL [facility] Creatinine 1.05 0.80 - 1.30 mg/dL [facility] Glucose 125 70 - 199 mg/dL [facility] Comment: Interpretive Data Fasting glucose [...] 2022. Calcium 8.8 8.5 - 10.3 mg/dL [facility] Bilirubin, total 0.5 0.1 - 1.2 mg/dL [facility] Protein, pl 6.7 6.5 - 8.5 g/dL [facility] Albumin 3.3(L) 3.5 - 5.0 g/dL [facility] Alk phos 336(H) 40 - 130 Units/L [facility] ALT 56(H) 7 - 55 Units/L [facility] AST 61(H) 10 - 50 Units/L [facility] Blood 10/18/2024 1:19 AM CDT 10/18/2024 1:34 AM CDT Jennifer Jeff MD LAB BLOOD ORDERABLES Final Resul t Performing Organization Address City/[facility]/ZIP Co de Phone Number [facility] [place] [address] * C. difficile testing Stool (10/17/2024 1:53 PM CDT) [facility] Result Negative Negative Toxin Result Negative Negative [facility] C. diff result Negative, free toxin Negative, free toxin [facility] C. diff interp Negative for toxigenic Clostridioides (Clostridium) difficile. Analysis was performed using a glutamate dehydrogenase antigen detection assay combined with a C. difficile toxin detection assay. [facility] Stool 10/17/2024 1:53 PM CDT 10/17/2024 3:21 PM CDT Trever Dempsey MD LAB MICROBIOLOGY - GENERAL ORD ERABLES Final Result Performing Organization Address [facility] Co de Phone Number [facility] [place] [address] * Infection Prevention VRE Culture Stool (10/17/2024 1:53 PM CDT) Report Final Report: Negative Stool 10/17/2024 1:53 PM CDT 10/17/2024 6:51 PM CDT Narrative [facility] - 10/19/2024 9:32 PM CDT Surveillance culture for Infection Prevention purposes only; results indicate colonization, not infection requiring treatment. Testing performed by [facility] ([phone]). Trever Dempsey MD LAB MICROBIOLOGY - GENERAL ORD ERABLES Final Result Performing Organization Address City/[facility] Co de Phone Number [facility] [place] [address] * eGFR (10/17/2024 12:44 AM CDT) Pathologist [facility] eGFR >90 >=60 mL/min/1. 73 m2 Comment: [...] Castro MD LAB BLOOD ORDERABLES Final Result [facility] [place] [address] * (ABNORMAL) Differential, auto (10/17/2024 12:44 AM CDT) Pathologist [facility] Neutrophil abs 7.00(H) 1.50 - 6.50 K/cumm Imm gran abs 0.13(H) 0.00 - 0.10 K/cumm [facility] Lymphocyte abs 0.70(L) 0.80 - 3.30 K/cumm [facility] Monocyte abs 0.81(H) 0.20 - 0.80 K/cumm [facility] Eosinophil abs 0.01 0.00 - 0.50 K/cumm [facility] Basophil abs 0.01 0.00 - 0.10 K/cumm [facility] Neutrophil pct 80.8 % [facility] Comment: Interpretive Data Percent cell count reference ranges are not reported, since discordance with absolute values may lead to misinterpretation of CBC data. Current Interpretive Data was last revised on 2017. Imm gran pct 1.5 % [facility] Comment: Interpretive Data Percent cell count reference ranges are not reported, since discordance with absolute values may lead to misinterpretation of CBC data. Current Interpretive Data was last revised on 2017. Lymphocyte pct 8.1 % [facility] Comment: Interpretive Data Percent cell count reference ranges are not reported, since discordance with absolute values may lead to misinterpretation of CBC data. Current Interpretive Data was last revised on 2017. Monocyte pct 9.4 % [facility] Comment: Interpretive Data Percent cell count reference ranges are not reported, since discordance with absolute values may lead to misinterpretation of CBC data. Current Interpretive Data was last revised on 2017. Eosinophil pct 0.1 % [facility] Comment: Interpretive Data Percent cell count reference ranges are not reported, since discordance with absolute values may lead to misinterpretation of CBC data. Current Interpretive Data was last revised on 2017. Basophil pct 0.1 % [facility] Comment: Interpretive Data Percent cell count reference ranges are not reported, since discordance with absolute values may lead to misinterpretation of CBC data. Current Interpretive Data was last revised on 2017. Blood 10/17/2024 12:4 4 AM CDT 10/17/2024 1:05 AM CDT us Edgardo Castro MD LAB BLOOD ORDERABLES Final Result [facility] [place] [address] * (ABNORMAL) CBC with auto differential (10/17/2024 12:44 AM CDT) WBC 8.66 3.80 - 9.90 K/cumm Hgb 9.9(L) 13.0 - 17.5 g/dL [facility] Hct 30.6(L) 38.9 - 50.3 % [facility] Plt 143(L) 150 - 400 K/cumm [facility] MPV 10.8 9.1 - 12.3 fL [facility] RBC 3.12(L) 4.30 - 5.80 M/cumm [facility] MCV 98.1(H) 81.3 - 96.4 fL [facility] MCH 31.7 27.1 - 33.3 pg [facility] MCHC 32.4 32.3 - 35.7 g/dL [facility] RDW CV 16.8(H) 11.1 - 14.9 % [facility] RDW SD 58.9(H) 35.7 - 48.1 fL [facility] NRBC abs 0.00 0.00 - 0.01 K/cumm [facility] Blood 10/17/2024 12:4 4 AM CDT 10/17/2024 1:05 AM CDT Jennifer Jeff MD LAB BLOOD ORDERABLES Final Resul t Performing Organization Address City/[facility] Co de Phone Number [facility] [place] [address] * Phosphorus (10/17/2024 12:44 AM CDT) [facility] Phosphorus, pl 2.8 2.3 - 4.5 mg/dL Blood 10/17/2024 12:4 4 AM CDT 10/17/2024 1:05 AM CDT Jennifer Jeff MD LAB BLOOD ORDERABLES Final Resul t [facility] [place] [address] * (ABNORMAL) Comprehensive metabolic panel (10/17/2024 12:44 AM CDT) [facility] Sodium 135 135 - 145 mmol/L Potassium, pl 4.2 3.3 - 4.9 mmol/L [facility] Comment:Hemolyzed; Potassium value may be falsely elevated by as much as 0.3-0.5 mmol/L. Suggest redraw and reanalysis. Chloride 102 97 - 110 mmol/L [facility] CO2 24 22 - 32 mmol/L [facility] Anion gap 9 2 - 15 mmol/L [facility] BUN 34(H) 6 - 25 mg/dL [facility] Creatinine 0.84 0.80 - 1.30 mg/dL [facility] Glucose 116 70 - 199 mg/dL [facility] Comment: Interpretive Data Fasting glucose [...] 2022. Calcium 8.6 8.5 - 10.3 mg/dL [facility] Bilirubin, total 0.5 0.1 - 1.2 mg/dL [facility] Protein, pl 6.7 6.5 - 8.5 g/dL [facility] Albumin 3.1(L) 3.5 - 5.0 g/dL [facility] Alk phos 266(H) 40 - 130 Units/L [facility] ALT 33 7 - 55 Units/L [facility] AST 52(H) 10 - 50 Units/L [facility] Comment:Hemolyzed; result ma y be falsely elevated Blood 10/17/2024 12:4 4 AM CDT 10/17/2024 1:05 AM CDT us Jennifer Jeff MD LAB BLOOD ORDERABLES Final Resul t [facility] [place] [address] * (ABNORMAL) Lactate (10/16/2024 5:27 AM CDT) Lactate 2.1(H) 0.7 - 2.0 mmol/L Blood 10/16/2024 5:27 AM CDT 10/16/2024 5:51 AM CDT Edgardo Castro MD LAB BLOOD ORDERABLES Final Result Performing Organization Address City/[facility]/ZIP Co de Phone Number [facility] [place] [address] * eGFR (10/16/2024 5:27 AM CDT) Pathologist [facility] eGFR 89 >=60 mL/min/1. 73 m2 Comment: [...] 5:27 AM CDT 10/16/2024 5:51 AM CDT Edgardo Castro MD LAB BLOOD ORDERABLES Final [facility] [place] [address] * (ABNORMAL) Differential, auto (10/16/2024 5:27 AM CDT) Neutrophil abs 7.16(H) 1.50 - 6.50 K/cumm Imm gran abs 0.07 0.00 - 0.10 K/cumm [facility] Lymphocyte abs 0.37(L) 0.80 - 3.30 K/cumm [facility] Monocyte abs 0.56 0.20 - 0.80 K/cumm [facility] Eosinophil abs 0.00 0.00 - 0.50 K/cumm [facility] Basophil abs 0.00 0.00 - 0.10 K/cumm [facility] Neutrophil pct 87.7 % [facility] Comment: Interpretive Data Percent cell count reference ranges are not reported, since discordance with absolute values may lead to misinterpretation of CBC data. Current Interpretive Data was last revised on 2017. Imm gran pct 0.9 % [facility] Comment: Interpretive Data Percent cell count reference ranges are not reported, since discordance with absolute values may lead to misinterpretation of CBC data. Current Interpretive Data was last revised on 2017. Lymphocyte pct 4.5 % [facility] Comment: Interpretive Data Percent cell count reference ranges are not reported, since discordance with absolute values may lead to misinterpretation of CBC data. Current Interpretive Data was last revised on 2017. Monocyte pct 6.9 % [facility] Comment: Interpretive Data Percent cell count reference ranges are not reported, since discordance with absolute values may lead to misinterpretation of CBC data. Current Interpretive Data was last revised on 2017. Eosinophil pct 0.0 % [facility] Comment: Interpretive Data Percent cell count reference ranges are not reported, since discordance with absolute values may lead to misinterpretation of CBC data. Current Interpretive Data was last revised on 2017. Basophil pct 0.0 % [facility] Comment: Interpretive Data Percent cell count reference ranges are not reported, since discordance with absolute values may lead to misinterpretation of CBC data. Current Interpretive Data was last revised on 2017. Blood 10/16/2024 5:27 AM CDT 10/16/2024 5:51 AM CDT Edgardo Castro MD LAB BLOOD ORDERABLES Final Result Performing Organization Address [facility] de Phone Number [facility] [place] [address] * (ABNORMAL) CBC with auto differential (10/16/2024 5:27 AM CDT) [facility] WBC 8.16 3.80 - 9.90 K/cumm Hgb 9.7(L) 13.0 - 17.5 g/dL [facility] Hct 29.4(L) 38.9 - 50.3 % [facility] Plt 171 150 - 400 K/cumm [facility] MPV 10.4 9.1 - 12.3 fL [facility] RBC 3.01(L) 4.30 - 5.80 M/cumm [facility] MCV 97.7(H) 81.3 - 96.4 fL [facility] MCH 32.2 27.1 - 33.3 pg [facility] MCHC 33.0 32.3 - 35.7 g/dL [facility] RDW CV 16.5(H) 11.1 - 14.9 % [facility] RDW SD 58.3(H) 35.7 - 48.1 fL [facility] NRBC abs 0.00 0.00 - 0.01 K/cumm [facility] Blood 10/16/2024 5:27 AM CDT 10/16/2024 5:51 AM CDT us Jennifer Jeff MD LAB BLOOD ORDERABLES Final Resul t Performing Organization Address [facility] Co de Phone Number [facility] [place] [address] * (ABNORMAL) aPTT (10/16/2024 5:27 AM CDT) [facility] aPTT 26(L) 28 - 38 sec Comment: Interpretive Data Heparin therapeutic range: 66.0 - 100.0 seconds. Range based on correlation with therapeutic heparin activity range of 0.3 - 0.7 Units/mL. Current interpretive data was last revised on 2023. Blood 10/16/2024 5:27 AM CDT 10/16/2024 5:46 AM CDT Jennifer Jeff MD LAB BLOOD ORDERABLES Final Resul t Performing Organization Address [facility] Co de Phone Number [facility] [place] [address] * (ABNORMAL) Protime-INR (10/16/2024 5:27 AM CDT) PT 13.8(H) 9.7 - 13.0 sec INR 1.27(H) 0.90 - 1.20 [facility] Comment: Interpretive data Oral anticoagulant therapeutic ranges: Venous thromboembolism prophylaxis or treatment: 2.0-3.0 CARDIOLOGY Standard range: 2.0-3.0 High-intensity range: 2.5-3.5 Refer to indication-specific guidelines for appropriate target ranges for prosthetic heart valve replacement. Current interpretive data was last revised on 2019. Blood 10/16/2024 5:27 AM CDT 10/16/2024 5:46 AM CDT Result [facility] Jennifer Jeff MD LAB BLOOD ORDERABLES Final Resul t Performing Organization Address [facility] de Phone Number [facility] [place] [address] * Type and screen (10/16/2024 5:27 AM CDT) ABO Rh A Positive Minna, indirect Negative [facility] Blood 10/16/2024 5:27 AM CDT 10/16/2024 5:38 AM CDT Narrative [facility] - 10/16/2024 6:46 AM CDT Has the patient had Daratumumab or Isatuximab in the past 6 months?->Unknown Jennifer Jeff MD LAB BLOOD BANK TEST ORDERABLES F inal Result Performing Organization Address [facility] de Phone Number [facility] [place] [address] * Uric acid (10/16/2024 5:27 AM CDT) Uric acid 4.0 3.0 - 8.0 mg/dL Blood 10/16/2024 5:27 AM CDT 10/16/2024 5:51 AM CDT Narrative [facility] - 10/16/2024 6:21 AM CDT Saturday and only. Morning draw. . Jennifer Jeff MD LAB BLOOD ORDERABLES Final Resul t Performing Organization Address [facility] de Phone Number [facility] [place] [address] * Phosphorus (10/16/2024 5:27 AM CDT) Phosphorus, pl 2.9 2.3 - 4.5 mg/dL Blood 10/16/2024 5:27 AM CDT 10/16/2024 5:51 AM CDT Jennifer Jeff MD LAB BLOOD ORDERABLES Final Resul t Performing Organization Address [facility] de Phone Number [facility] [place] [address] * Lactate dehydrogenase (LD) (10/16/2024 5:27 AM CDT) Lactate dehydrogenase (LDH) 233 100 - 250 Units/L Blood 10/16/2024 5:27 AM CDT 10/16/2024 5:51 AM CDT Narrative [facility] - 10/16/2024 6:21 AM CDT Saturday and only. Morning draw. Jennifer Jeff MD LAB BLOOD ORDERABLES Final Resul t Performing Organization Address [facility]/ZIP Co de Phone Number [facility] [place] [address] * (ABNORMAL) Comprehensive metabolic panel (10/16/2024 5:27 AM CDT) Sodium 135 135 - 145 mmol/L Potassium, pl 4.0 3.3 - 4.9 mmol/L [facility] Chloride 100 97 - 110 mmol/L [facility] CO2 26 22 - 32 mmol/L [facility] Anion gap 9 2 - 15 mmol/L [facility] BUN 35(H) 6 - 25 mg/dL [facility] Creatinine 0.90 0.80 - 1.30 mg/dL [facility] Glucose 190 70 - 199 mg/dL [facility] Comment: Interpretive Data Fasting glucose [...] 2022. Calcium 9.0 8.5 - 10.3 mg/dL [facility] Bilirubin, total 0.5 0.1 - 1.2 mg/dL [facility] Protein, pl 6.8 6.5 - 8.5 g/dL [facility] Albumin 3.2(L) 3.5 - 5.0 g/dL [facility] Alk phos 300(H) 40 - 130 Units/L [facility] ALT 38 7 - 55 Units/L [facility] AST 42 10 - 50 Units/L [facility] Blood 10/16/2024 5:27 AM CDT 10/16/2024 5:51 AM CDT Jennifer Jeff MD LAB BLOOD ORDERABLES Final Resul t [facility] [place] [address] * XR Chest Pa Lateral 2 Vw [...] it. Electronically signed by: Glenn Ye M.D. Candi Rincon MD IMG XR PROCEDURE S Final Result * Urinalysis reflex to microscopic and culture Urine (10/15/2024 7:01 PM CDT) Color, ur Yellow Yellow Clarity, ur Clear Clear [facility] Specific gravity, ur 1.027 1.003 - 1.[address] [facility] pH, urine 6.0 [facility] Comment: Interpretive Data U rine pH is affected by diet, medications, systemic acid-base disturbances, and renal tubular function. pH may affect urinary stone formation. For example, urine pH below 6.0 may help reduce the tendency for calcium phosphate stones and pH greater than 6.0 may reduce the tendency for uric acid stone formation. Source: [facility] [employer] Current Interpretive Data was last revised on 2017 Protein, ur ql Negative Negative [facility] Glucose, ur ql Negative Negative [facility] Ketones, ur Negative Negative [facility] Bilirubin, ur Negative Negative [facility] Blood, ur Negative Negative [facility] Urobilinogen, ur <2.0 <2.0 mg/dL [facility] Nitrite, ur Negative Negative [facility] Leukocyte esterase, ur Negative Negative [facility] UA reflex comment Reflex conditions for microscopic UA and culture not met. [facility] Urine 10/15/2024 7:01 PM CDT 10/15/2024 7:05 PM CDT Candi Rincon MD LAB MICROBIOLOGY - GENERAL ORDERABLES Final Result Performing Organization Address City/[facility] de Phone Number [facility] Department [place] [address] * (ABNORMAL) Sepsis Lactate w/ Reflex (10/15/2024 5:22 PM CDT) Sepsis Lactate 2.2(H) 0.7 - 2.0 mmol/L Blood 10/15/2024 5:22 PM CDT 10/15/2024 5:26 PM CDT Candi Rincon MD LAB BLOOD ORDERA BLES Final Result Performing Organization Address City/State/[facility] de Phone Number [facility] [place] [address] * eGFR (10/15/2024 5:22 PM CDT) Pathologist [facility] eGFR 88 >=60 mL/min/1. 73 m2 Comment: [...] 5:22 PM CDT 10/15/2024 5:43 PM CDT Candi Rincon MD LAB BLOOD ORDERA BLES Final Result Performing Organization Address [facility] de Phone Number [facility] [place] [address] * (ABNORMAL) Differential, auto (10/15/2024 5:22 PM CDT) Pathologist [facility] Neutrophil abs 6.81(H) 1.50 - 6.50 K/cumm Imm gran abs 0.07 0.00 - 0.10 K/cumm [facility] Lymphocyte abs 0.18(L) 0.80 - 3.30 K/cumm [facility] Monocyte abs 0.17(L) 0.20 - 0.80 K/cumm [facility] Eosinophil abs 0.00 0.00 - 0.50 K/cumm [facility] Basophil abs 0.01 0.00 - 0.10 K/cumm [facility] Neutrophil pct 94.1 % [facility] Comment: Interpretive Data Percent cell count reference ranges are not reported, since discordance with absolute values may lead to misinterpretation of CBC data. Current Interpretive Data was last revised on 2017. Imm gran pct 1.0 % [facility] Comment: Interpretive Data Percent cell count reference ranges are not reported, since discordance with absolute values may lead to misinterpretation of CBC data. Current Interpretive Data was last revised on 2017. Lymphocyte pct 2.5 % [facility] Comment: Interpretive Data Percent cell count reference ranges are not reported, since discordance with absolute values may lead to misinterpretation of CBC data. Current Interpretive Data was last revised on 2017. Monocyte pct 2.3 % [facility] Comment: Interpretive Data Percent cell count reference ranges are not reported, since discordance with absolute values may lead to misinterpretation of CBC data. Current Interpretive Data was last revised on 2017. Eosinophil pct 0.0 % [facility] Comment: Interpretive Data Percent cell count reference ranges are not reported, since discordance with absolute values may lead to misinterpretation of CBC data. Current Interpretive Data was last revised on 2017. Basophil pct 0.1 % [facility] Comment: Interpretive Data Percent cell count reference ranges are not reported, since discordance with absolute values may lead to misinterpretation of CBC data. Current Interpretive Data was last revised on 2017. Blood 10/15/2024 5:22 PM CDT 10/15/2024 5:43 PM CDT us Candi Rincon MD LAB BLOOD ORDERA BLES Final Result [facility] [place] [address] * (ABNORMAL) CBC with auto differential (10/15/2024 5:22 PM CDT) WBC 7.24 3.80 - 9.90 K/cumm Hgb 10.4(L) 13.0 - 17.5 g/dL [facility] Hct 31.7(L) 38.9 - 50.3 % [facility] Plt 193 150 - 400 K/cumm [facility] MPV 10.0 9.1 - 12.3 fL [facility] RBC 3.27(L) 4.30 - 5.80 M/cumm [facility] MCV 96.9(H) 81.3 - 96.4 fL [facility] MCH 31.8 27.1 - 33.3 pg [facility] MCHC 32.8 32.3 - 35.7 g/dL [facility] RDW CV 16.6(H) 11.1 - 14.9 % [facility] RDW SD 59.2(H) 35.7 - 48.1 fL [facility] NRBC abs 0.00 0.00 - 0.01 K/cumm [facility] Blood 10/15/2024 5:22 PM CDT 10/15/2024 5:43 PM CDT Candi Rincon MD LAB BLOOD ORDERA BLES Final Result [facility] [place] [address] * Blood culture Blood Peripheral (10/15/2024 5:22 PM CDT) Pathologist [facility] Report Final Report: No growth Blood (Peripheral) 10/15/2024 5:22 PM CDT 10/15/2024 5:42 PM CDT Narrative [facility] - 10/20/2024 7:01 AM CDT [...] performance characteristics have been verified by the [facility]. For questions about this culture, contact the Microbiology Laboratory at [phone]. Interpretive data was last revised on 24. Candi Rincon MD LAB MICROBIOLOGY - GENERAL ORDERABLES Final Result [facility] [place] [address] * Blood culture Blood Peripheral (10/15/2024 5:22 PM CDT) Report Final Report: No growth Blood (Peripheral) 10/15/2024 5:22 PM CDT 10/15/2024 5:[address] [facility] - 10/20/2024 7:01 AM CDT Draw Blood [...] performance characteristics have been verified by the [facility]. For questions about this culture, contact the Microbiology Laboratory at [phone]. Interpretive data was last revised on 24. Candi Rincon MD LAB MICROBIOLOGY - GENERAL ORDERABLES Final Result [facility] Department [place] [address] * (ABNORMAL) Comprehensive metabolic panel (10/15/2024 5:22 PM CDT) Sodium 134(L) 135 - 145 mmol/L Potassium, pl 4.2 3.3 - 4.9 mmol/L [facility] Chloride 98 97 - 110 mmol/L [facility] CO2 26 22 - 32 mmol/L [facility] Anion gap 10 2 - 15 mmol/L [facility] BUN 33(H) 6 - 25 mg/dL [facility] Creatinine 0.91 0.80 - 1.30 mg/dL [facility] Glucose 230(H) 70 - 199 mg/dL [facility] Comment: Interpretive Data Fasting glucose [...] 2022. Calcium 9.2 8.5 - 10.3 mg/dL [facility] Bilirubin, total 0.8 0.1 - 1.2 mg/dL [facility] Protein, pl 7.3 6.5 - 8.5 g/dL [facility] Albumin 3.5 3.5 - 5.0 g/dL [facility] Alk phos 361(H) 40 - 130 Units/L [facility] ALT 41 7 - 55 Units/L [facility] AST 55(H) 10 - 50 Units/L [facility] Blood 10/15/2024 5:22 PM CDT 10/15/2024 5:43 PM CDT us Candi Rincon MD LAB BLOOD ORDERA BLES Final Result [facility] [place] [address] * FL ERCP (10/15/2024 1:41 PM CDT) Narrative [facility] - 10/15/2024 1:43 PM CDT The images from this study are not interpreted by Radiology. Please refer to the physician's procedure / OR operative note. us Chris Holcomb MD IMG FLUOROSCOPY PROCEDURES Final Result Performing Organization Address City/[facility]/ZIP Co de Phone Number [email or web address] * ERCP (10/15/2024 12:47 PM CDT) Anatomical Region Laterality Modality Other Narrative Procedure Note Chris Holcomb MD - 10/15/2024 12:47 PM CDT ENDOSCOPY LAB Patient Name: Sulma Bazan Procedure Date: 10/15/2024 12:47 PM Admit Type: Outpatient Room: [facility] Date of : 1950 Instrument Name: [id number] Gender: Male Note Status: Finalized Procedure: ERCP [...] A biliary stent was visible on the emblem cutter film. The esophagus was successfully intubated under [...] sec INR 1.18 0.90 - 1.20 [facility] Comment: Interpretive data Oral anticoagulant therapeutic ranges: Venous thromboembolism prophylaxis or treatment: 2.0-3.0 CARDIOLOGY Standard range: 2.0-3.0 High-intensity range: 2.5-3.5 Refer to indication-specific guidelines for appropriate target ranges for prosthetic heart valve replacement. Current interpretive data was last revised on 2019. Blood 10/15/2024 11:3 7 AM CDT 10/15/2024 11:37 AM CDT Chris Holcomb MD LAB BLOOD ORDERABLES Final Result [facility] [address] [place] [address] * CT Chest Abdomen Pelvis W Contrast [...] chest. Electronically signed by: Cheri Craig M.D. us Jamin Posey MD IMG CT PROCEDURES Final [...] was last reviewed 2021. Testing performed by: [facility], [address], [place] [address] Blood 10/07/2024 9:11 AM CDT 10/07/2024 9:57 AM CDT us Agustina Li MD PhD LAB BLOOD ORDERABLES Final Result [facility] [address] [place] [place] [address] * (ABNORMAL) Differential, auto (10/07/2024 9:11 AM CDT) Neutrophil abs 6.76(H) 1.50 - 6.50 K/cumm Comment:Testing performed by : [facility], [address] [place] [address] Imm gran abs 0.06 0.00 - 0.10 K/cumm [facility] Comment:Testing performed by : [place] [address], [address] [place] [address] Lymphocyte abs 0.76(L) 0.80 - 3.30 K/cumm [facility] Comment:Testing performed by : [place] [address], [address] [place] [address] Monocyte abs 0.82(H) 0.20 - 0.80 K/cumm [facility] Comment:Testing performed by : [place] [address], [address] [place] [address] Eosinophil abs 0.04 0.00 - 0.50 K/cumm [facility] Comment:Testing performed by : [place] [address], [address] [place] [address] Basophil abs 0.04 0.00 - 0.10 K/cumm [facility] Comment:Testing performed by : [address] [place] [address] Neutrophil pct 79.6 % [facility] Comment: Interpretive Data Percent cell count reference ranges are not reported, since discordance with absolute values may lead to misinterpretation of CBC data. Current Interpretive Data was last revised on 2017. Testing performed by: [facility], [address] [place] [address] Imm gran pct 0.7 % [facility] Comment: Interpretive Data Percent cell count reference ranges are not reported, since discordance with absolute values may lead to misinterpretation of CBC data. Current Interpretive Data was last revised on 2017. Testing performed by: [facility], [address] [place] [address] Lymphocyte pct 9.0 % [facility] Comment: Interpretive Data Percent cell count reference ranges are not reported, since discordance with absolute values may lead to misinterpretation of CBC data. Current Interpretive Data was last revised on 2017. Testing performed by: [facility], [address] [place] [address] Monocyte pct 9.7 % [facility] Comment: Interpretive Data Percent cell count reference ranges are not reported, since discordance with absolute values may lead to misinterpretation of CBC data. Current Interpretive Data was last revised on 2017. Testing performed by: [facility], [address] [place] [address] Eosinophil pct 0.5 % [facility] Comment: Interpretive Data Percent cell count reference ranges are not reported, since discordance with absolute values may lead to misinterpretation of CBC data. Current Interpretive Data was last revised on 2017. Testing performed by: [facility], [facility], [address] [place] [address] Basophil pct 0.5 % [facility] Comment: Interpretive Data Percent cell count reference ranges are not reported, since discordance with absolute values may lead to misinterpretation of CBC data. Current Interpretive Data was last revised on 2017. Testing performed by: [facility], [facility], [address] [place] [address] Blood 10/07/2024 9:11 AM CDT 10/07/2024 9:13 AM CDT us Agustina Li MD PhD LAB BLOOD ORDERABLES Final Result [facility] [address] [facility]. [place] [address] * (ABNORMAL) CBC with auto differential (10/07/2024 9:11 AM CDT) WBC 8.48 3.80 - 9.90 K/cumm Comment:Testing performed by : [place] [address] [place] [address] Hgb 10.4(L) 13.0 - 17.5 g/dL [facility] Comment:Testing performed by : [place] [address] [place] [address] Hct 32.4(L) 38.9 - 50.3 % [facility] Comment:Testing performed by : [place] [address] [place] [address] Plt 212 150 - 400 K/cumm [facility] Comment:Testing performed by : [place] [address] [place] [address] MPV 9.5 9.1 - 12.3 fL [facility] Comment:Testing performed by : [place] [address] [place] [address] RBC 3.25(L) 4.30 - 5.80 M/cumm [facility] Comment:Testing performed by : [place] [address] [place] [address] MCV 99.7(H) 81.3 - 96.4 fL [facility] Comment:Testing performed by : [place] [address] [place] [address] MCH 32.0 27.1 - 33.3 pg [facility] Comment:Testing performed by : [place] [address] [place] [address] MCHC 32.1(L) 32.3 - 35.7 g/dL [facility] Comment:Testing performed by : [place] [address] [place] [address] RDW CV 16.2(H) 11.1 - 14.9 % [facility] Comment:Testing performed by : [facility], [address] [place] [address] RDW SD 59.5(H) 35.7 - 48.1 fL [facility] Comment:Testing performed by : [facility], [facility], [address] [place] [address] ANC Prelim 6.76(H) 1.50 - 6.50 K/cumm [facility] Comment: Interpretive Data The rapid ANC is a preliminary automated count and may vary from the final ANC (Neut Abs) reported in the WBC differential that follows. Current interpretive data was last revised 2024. Testing performed by: [facility], [facility], [address] [place] [address] Blood 10/07/2024 9:11 AM CDT 10/07/2024 9:13 AM CDT Agustina Li MD PhD LAB BLOOD ORDERABLES Final Result [facility] [address] [facility] [place] [address] * (ABNORMAL) Cancer antigen 19-9 (10/07/2024 9:11 AM CDT) CA 19-9 ag 227.0(H) 0.0 - 35.0 units/mL Comment: Interpretive Data The Dereck CA 19-9 assay procedure was used. Results from different manufacturers or methods may not be comparable. Serial testing should be performed using the same method. Testing performed by: [facility], [facility] [facility], [place]., [address] Blood 10/07/2024 9:11 AM CDT 10/07/2024 10:24 AM CDT Agustina Li MD PhD LAB BLOOD ORDERABLES Final Result [facility] [address] [place] [address] * (ABNORMAL) Protime-INR (10/07/2024 9:11 AM CDT) PT 16.4(H) 9.7 - 13.0 sec Comment:Testing performed by : [facility], [address] [place] [address] INR 1.51(H) 0.90 - 1.20 STAN STAPLETON Comment: Interpretive data Oral anticoagulant therapeutic ranges: Venous thromboembolism prophylaxis or treatment: 2.0-3.0 CARDIOLOGY Standard range: 2.0-3.0 High-intensity range: 2.5-3.5 Refer to indication-specific guidelines for appropriate target ranges for prosthetic heart valve replacement. Current interpretive data was last revised on 2019. Testing performed by: [facility], [address] [place] [address] Blood 10/07/2024 9:11 AM CDT 10/07/2024 9:38 AM CDT Agustina Li MD PhD LAB BLOOD ORDERABLES Final Result STAN BJW[facility] [address] [place] [address] * (ABNORMAL) Comprehensive metabolic panel (10/07/2024 9:11 AM CDT) Pathologist [facility] Sodium 131(L) 135 - 145 mmol/L Comment:Testing performed by : [facility], [address] [place] [address] Potassium, pl 4.1 3.3 - 4.9 mmol/L STAN STAPLETON Comment:Testing performed by : [facility], [address] [place] [address] Chloride 96(L) 97 - 110 mmol/L STAN STAPLETON Comment:Testing performed by : [facility], [address], [place] [address] CO2 22 22 - 32 mmol/L CERNER BJWCH Comment:Testing performed by : [facility], [address], [place] [address] Anion gap 13 2 - 15 mmol/L CERNER BJWCH Comment:Testing performed by : [facility], [address], [place] [address] BUN 33(H) 6 - 25 mg/dL CERNER BJWCH Comment:Testing performed by : [facility], [address], [place] [address] Creatinine 0.90 0.80 - 1.30 mg/dL CERNER BJWCH Comment:Testing performed by : [facility], [address], [place] [address] Glucose 171 70 - 199 mg/dL CERNER [...] was last revised 2022. Testing performed by: [facility], [address], [place] [address] Calcium 9.0 8.5 - 10.3 mg/dL CERNER BJWCH Comment:Testing performed by : [facility], [address], [place] [address] Bilirubin, total 0.5 0.1 - 1.2 mg/dL CERNER BJWCH Comment:Testing performed by : [facility], [address], [place] [address] Protein, pl 7.4 6.5 - 8.5 g/dL CERNER BJWCH Comment:Testing performed by : [facility], [address], [place] [address] Albumin 3.9 3.5 - 5.0 g/dL STAN BJW Comment:Testing performed by : [facility], [address], [place] [address] Alk phos 423(H) 40 - 130 Units/L CERKERI BJCH Comment:Testing performed by : [facility], [address], [place] [address] ALT 35 7 - 55 Units/L [facility] Comment:Testing performed by : [facility], [address], [place] [address] AST 37 10 - 50 Units/L [facility] Comment:Testing performed by : [facility], [address], [place] [address] Blood 10/07/2024 9:11 AM CDT 10/07/2024 9:38 AM CDT us Agustina Li MD PhD LAB BLOOD ORDERABLES Edited Result - Final STAN COREYCH [address] [place] [address] * (ABNORMAL) Protime-INR (09/30/2024 2:30 PM CDT) INR 1.3(H) [facility] [place] Comment: Reference Range 0.9-1.1 Moderate-intensity Warfarin Therapy 2.0-3.0 Higher-intensity Warfarin Therapy 3.0-4.0 PT 13.7(H) 9.0 - 11.5 sec [facility] [place] Comment: For additional information, please refer to http://education.Zigabid.Mirantis/faq/IYE722 (This link is being provided for informational/ educational purposes only.) Blood 09/30/2024 2:30 PM CDT 09/30/2024 2:32 PM CDT Narrative [facility] - 10/01/2024 12:17 AM CDT FASTING:NO FASTING: NO us Chris Hart MD LAB BLOOD ORDERABLES Final Result Performing Organization Address [facility] Co de Phone Number [employer] [facility] [address] [place] [address] * (ABNORMAL) Protime-INR (09/23/2024 11:21 AM CDT) INR 1.3(H) [facility] [place] Comment: Reference Range 0.9-1.1 Moderate-intensity Warfarin Therapy 2.0-3.0 Higher-intensity Warfarin Therapy 3.0-4.0 PT 14.0(H) 9.0 - 11.5 sec [employer] [place] Comment: For additional information, please refer to http://education.Clicko/faq/VBY246 (This link is being provided for informational/ educational purposes only.) Blood 09/23/2024 11:2 1 AM CDT 09/23/2024 11:21 AM CDT Chris Hart MD LAB BLOOD ORDERABLES Final Result Performing Organization Address [facility] Co de Phone Number [facility] [address] [place] [address] * eGFR (09/16/2024 8:08 AM CDT) eGFR [...] was last reviewed 2021. Testing performed by: [facility], [address] [place] [address] Blood 09/16/2024 8:08 AM CDT 09/16/2024 8:48 AM CDT us Gorge Vaughan MD PhD LAB BLOOD ORDERABLES Final Result [facility] [address] [place] [address] * (ABNORMAL) Differential, auto (09/16/2024 8:08 AM CDT) Neutrophil abs 5.67 1.50 - 6.50 K/cumm Comment:Testing performed by : [facility] 2, [address] [place] [address] Imm gran abs 0.15(H) 0.00 - 0.10 K/cumm CERNER BJW Comment:Testing performed by : [facility] 2, [address] [place] [address] Lymphocyte abs 0.47(L) 0.80 - 3.30 K/cumm CERKERI BJW Comment:Testing performed by : [facility] 2, [address] [place] [address] Monocyte abs 0.64 0.20 - 0.80 K/cumm STAN BJWCH Comment:Testing performed by : [facility] 2, [address] [place] [address] Eosinophil abs 0.03 0.00 - 0.50 K/cumm CERKERI BJWCH Comment:Testing performed by : [facility] 2, [address] [place] [address] Basophil abs 0.01 0.00 - 0.10 K/cumm CERKERI BJWCH Comment:Testing performed by : [facility] 2, [address] [place] [address] Neutrophil pct 81.4 % CERNER BJWCH Comment: Interpretive Data Percent cell count reference ranges are not reported, since discordance with absolute values may lead to misinterpretation of CBC data. Current Interpretive Data was last revised on 2017. Testing performed by: [facility], [address] [place] [address] Imm gran pct 2.2 % CERNER BJWCH Comment: Interpretive Data Percent cell count reference ranges are not reported, since discordance with absolute values may lead to misinterpretation of CBC data. Current Interpretive Data was last revised on 2017. Testing performed by: [facility], [facility], [address] [place] [address] Lymphocyte pct 6.7 % CERNER BJWCH Comment: Interpretive Data Percent cell count reference ranges are not reported, since discordance with absolute values may lead to misinterpretation of CBC data. Current Interpretive Data was last revised on 2017. Testing performed by: [facility], [facility], [address] [place] [address] Monocyte pct 9.2 % CERNER BJWCH Comment: Interpretive Data Percent cell count reference ranges are not reported, since discordance with absolute values may lead to misinterpretation of CBC data. Current Interpretive Data was last revised on 2017. Testing performed by: [facility] 2, [address] [place] [address] Eosinophil pct 0.4 % CERNER BJWCH Comment: Interpretive Data Percent cell count reference ranges are not reported, since discordance with absolute values may lead to misinterpretation of CBC data. Current Interpretive Data was last revised on 2017. Testing performed by: [facility], [facility], [address] [place] [address] Basophil pct 0.1 % CERNER BJWCH Comment: Interpretive Data Percent cell count reference ranges are not reported, since discordance with absolute values may lead to misinterpretation of CBC data. Current Interpretive Data was last revised on 2017. Testing performed by: [facility], [facility], [address] [place] [address] Blood 09/16/2024 8:08 AM CDT 09/16/2024 8:17 AM CDT us Gorge Vaughan MD PhD LAB BLOOD ORDERABLES Final Result [facility] [address] [facility] of Laboratories [place], [place] [id number] * (ABNORMAL) CBC with auto differential (09/16/2024 8:08 AM CDT) WBC 6.97 3.80 - 9.90 K/cumm Comment:Testing performed by : [place] [address] [place] [address] Hgb 8.4(L) 13.0 - 17.5 g/dL STAN COREYW Comment:Testing performed by : [place] [address] [place] [address] Hct 25.2(L) 38.9 - 50.3 % [facility] Comment:Testing performed by : [place] [address] [place] [address] Plt 102(L) 150 - 400 K/cumm STAN ALVAREZ Comment:Testing performed by : [place] [address] [place] [address] MPV 10.1 9.1 - 12.3 fL [facility] Comment:Testing performed by : [place] [address] [place] [address] RBC 2.39(L) 4.30 - 5.80 M/cumm STAN ALVAREZCH Comment:Testing performed by : [place] [address], [place] [address] MCV 105.4(H) 81.3 - 96.4 fL STAN COREYWCH Comment:Testing performed by : [place] [address], [address] [place] [address] MCH 35.1(H) 27.1 - 33.3 pg STAN STAPLETON Comment:Testing performed by : [facility], [facility], [address] [place] [address] MCHC 33.3 32.3 - 35.7 g/dL STAN STAPLETON Comment:Testing performed by : [facility] 2, [address] [place] [address] RDW CV 17.0(H) 11.1 - 14.9 % STAN STAPLETON Comment:Testing performed by : [place] [address], [address] [place] [address] RDW SD 66.4(H) 35.7 - 48.1 fL STAN STAPLETON Comment:Testing performed by : [facility], [facility], [address] [place] [address] ANC Prelim 5.67 1.50 - 6.50 K/cumm STAN STAPLETON Comment: Interpretive Data The rapid ANC is a preliminary automated count and may vary from the final ANC (Neut Abs) reported in the WBC differential that follows. Current interpretive data was last revised 2024. Testing performed by: [facility], [facility], [address] [place] [address] Blood 09/16/2024 8:08 AM CDT 09/16/2024 8:17 AM CDT us Gorge Vaughan MD PhD LAB BLOOD ORDERABLES Final Result [facility] [address] [facility]. Department of [facility] [id number] * (ABNORMAL) Cancer antigen 19-9 (09/16/2024 8:08 AM CDT) CA 19-9 ag 152.0(H) 0.0 - 35.0 units/mL Comment: Interpretive Data The Dereck CA 19-9 assay procedure was used. Results from different manufacturers or methods may not be comparable. Serial testing should be performed using the same method. Testing performed by: [facility], Formerly named [facility] [place]., [address] Blood 09/16/2024 8:08 AM CDT 09/16/2024 1:03 PM CDT Gorge Vaughan MD PhD LAB BLOOD ORDERABLES Final Result Performing Organization Address [facility] Co de Phone Number STAN BJWCH [address] [facility] [facility] [place] [address] * (ABNORMAL) Protime-INR (09/16/2024 8:08 AM CDT) PT 16.8(H) 9.7 - 13.0 sec Comment:Testing performed by : [facility], [id number] [place] [address], [place] [address] INR 1.54(H) 0.90 - 1.20 STAN BJWCH Comment: Interpretive data Oral anticoagulant therapeutic ranges: Venous thromboembolism prophylaxis or treatment: 2.0-3.0 CARDIOLOGY Standard range: 2.0-3.0 High-intensity range: 2.5-3.5 Refer to indication-specific guidelines for appropriate target ranges for prosthetic heart valve replacement. Current interpretive data was last revised on 2019. Testing performed by: [facility], [id number] [place] [address] Blood 09/16/2024 8:08 AM CDT 09/16/2024 8:48 AM CDT us Chris Hart MD LAB BLOOD ORDERABLES Final Result Performing Organization Address [facility] Co de Phone Number CERNER BJWCH [address] [facility]. [facility] [place] [address] * (ABNORMAL) Comprehensive metabolic panel (09/16/2024 8:08 AM CDT) Sodium 134(L) 135 - 145 mmol/L Comment:Testing performed by : [facility], [address], [place] [address] Potassium, pl 3.5 3.3 - 4.9 mmol/L CERNER BJWCH Comment:Testing performed by : [facility], [address], [place] [address] Chloride 100 97 - 110 mmol/L CERNER BJWCH Comment:Testing performed by : [facility], [address], [place] [address] CO2 23 22 - 32 mmol/L CERNER BJWCH Comment:Testing performed by : [facility], [address], [place] [address] Anion gap 11 2 - 15 mmol/L CERNER BJWCH Comment:Testing performed by : [facility], [address], [place] [address] BUN 22 6 - 25 mg/dL CERNER BJWCH Comment:Testing performed by : [facility], [address], [place] [address] Creatinine 0.70(L) 0.80 - 1.30 mg/dL CERNER BJWCH Comment:Testing performed by : [facility], [address], [place] [address] Glucose 127 70 - 199 mg/dL CERNER [...] was last revised 2022. Testing performed by: [facility], [address], [place] [address] Calcium 8.3(L) 8.5 - 10.3 mg/dL CERNER BJWCH Comment:Testing performed by : [facility], [address], [place] [address] Bilirubin, total 0.6 0.1 - 1.2 mg/dL CERNER BJWCH Comment:Testing performed by : [facility], [address], [place] [address] Protein, pl 5.8(L) 6.5 - 8.5 g/dL CERNER BJWCH Comment:Testing performed by : [facility], [address], [place] [address] Albumin 2.9(L) 3.5 - 5.0 g/dL CERNER BJWCH Comment:Testing performed by : [facility], [address], [place] [address] Alk phos 388(H) 40 - 130 Units/L CERNER BJWCH Comment:Testing performed by : [facility], [address], [place] [address] ALT 36 7 - 55 Units/L CERNER BJWCH Comment:Testing performed by : [facility], [address], [place] [address] AST 46 10 - 50 Units/L CERNER BJWCH Comment:Testing performed by : [facility], [address], [place] [address] Blood 09/16/2024 8:08 AM CDT 09/16/2024 8:48 AM CDT us Gorge Vaughan MD PhD LAB BLOOD ORDERABLES Final Result STAN [facility] [address] [place] [address] * COPY(IES) SENT TO: (09/11/2024 10:40 AM CDT) COPY(IES) SENT TO: [facility] Comment: SITEMAN - COPY TO ACCOUNT [address] [place] [address] 09/11/2024 10:4 0 AM CDT 09/11/2024 10:40 AM CDT Narrative [facility] - 09/15/2024 3:41 PM CDT FASTING:NO FASTING: NO Agustina Li MD PhD LAB BLOOD ORDERABLES Final Result [facility] * (ABNORMAL) CBC with auto differential (09/11/2024 10:40 AM CDT) Pathologist [facility] WBC 6.7 3.8 - 10.8 Thousand/ uL [...] [place] Neutrophilic bands 1 % [facility] [place] Lymphocyte pct 3 % [facility] Monocytes 5 % [facility] Eosinophils 0 % [facility] Basophils 0 % [facility] Comment Salena PerezKunArmand geri [place] Comment: ERYTHROCYTES: THE ERYTHROCYTES ARE MACROCYTIC [...] SMEAR WAS REVIEWED BY: MIGUEL BURNETT M.D. [employer] [address] [place] [id number] CLIA ID NO. [id number] Blood 09/11/2024 10:4 0 AM CDT 09/11/2024 10:40 AM CDT Narrative [facility] - 09/15/2024 3:41 PM CDT FASTING:NO FASTING: NO Agustina Li MD PhD LAB BLOOD ORDERABLES Final Result [facility] [address] [place] [address] * (ABNORMAL) Protime-INR (09/11/2024 10:40 AM CDT) INR 1.6(H) Salena PerezKunArmand nevarez [place] Comment: Reference Range 0.9-1.1 Moderate-intensity Warfarin Therapy 2.0-3.0 Higher-intensity Warfarin Therapy 3.0-4.0 PT 17.0(H) 9.0 - 11.5 sec [facility] [place] Comment: For additional information, please refer to http://education.Clicko/faq/FTE645 (This link is being provided for informational/ educational purposes only.) Blood 09/11/2024 10:4 0 AM CDT 09/11/2024 10:40 AM CDT Narrative [facility] - 09/15/2024 3:41 PM CDT FASTING:NO FASTING: NO us Agustina Li MD PhD LAB BLOOD ORDERABLES Final Result [facility] [address] [place] [address] * (ABNORMAL) Comprehensive metabolic panel (09/11/2024 10:40 AM CDT) Glucose 105 65 - 139 mg/dL [facility] Comment: Non-fasting reference interval BUN 22 7 - 25 mg/dL [facility] Creatinine 0.69(L) 0.70 - 1.28 mg/dL [facility] [employer] [facility] eGFR 97 > OR = 60 mL/min/1.7 3m2 [facility] [employer] [facility] BUN/creat ratio 32(H) 6 - 22 (calc) [facility] Sodium 132(L) 135 - 146 mmol/L [facility] [employer] [facility] [place] Potassium, pl 3.9 3.5 - 5.3 mmol/L [facility] [employer] [place] Chloride 99 98 - 110 mmol/L [facility] CO2 27 20 - 32 mmol/L [facility] Calcium 7.6(L) 8.6 - 10.3 mg/dL [facility] Protein, sr 5.0(L) 6.1 - 8.1 g/dL [facility] [place] Albumin 2.6(L) 3.6 - 5.1 g/dL [facility] [place] GLOBULIN 2.4 1.9 - 3.7 g/dL (calc) [facility] [place] Alb/glob ratio 1.1 1.0 - 2.5 (calc) [facility] [employer] [facility] [place] Bilirubin, total 0.8 0.2 - 1.2 mg/dL Salena [employer] Alk phos 204(H) 35 - 144 U/L Salena [employer] [place] AST 40(H) 10 - 35 U/L [facility] [employer] [place] ALT (SGPT) 25 9 - 46 U/L [facility] Blood 09/11/2024 10:4 0 AM CDT 09/11/2024 10:40 AM CDT Narrative [facility] - 09/15/2024 3:41 PM CDT FASTING:NO FASTING: NO us Agustina Li MD PhD LAB BLOOD ORDERABLES Final Result [facility] [address] [place] [address] * SCAN - LABS (09/11/2024) us Provider [...] was last reviewed 2021. Testing performed by: [facility], [address] [place] [address] Blood 09/09/2024 7:32 AM CDT 09/09/2024 8:19 AM CDT us Gorge Vaughan MD PhD LAB BLOOD ORDERABLES Final Result [facility] [address] [place] [address] * (ABNORMAL) Differential, auto (09/09/2024 7:32 AM CDT) Neutrophil abs 4.58 1.50 - 6.50 K/cumm Comment:Testing performed by : [place] [address], [address] [place] [address] Imm gran abs 0.05 0.00 - 0.10 K/cumm CERNER BJWCH Comment:Testing performed by : [place] [address], [place] [address] Lymphocyte abs 0.25(L) 0.80 - 3.30 K/cumm CERNER BJWCH Comment:Testing performed by : [place] [address], [address] [place] [address] Monocyte abs 0.51 0.20 - 0.80 K/cumm CERNER BJWCH Comment:Testing performed by : [place] [address], [address] [place] [address] Eosinophil abs 0.00 0.00 - 0.50 K/cumm CERNER BJWCH Comment:Testing performed by : [place] [address], [address] [place] [address] Basophil abs 0.00 0.00 - 0.10 K/cumm CERNER BJWCH Comment:Testing performed by : [place] [address], [address] [place] [address] Neutrophil pct 85.0 % CERNER BJWCH Comment: Interpretive Data Percent cell count reference ranges are not reported, since discordance with absolute values may lead to misinterpretation of CBC data. Current Interpretive Data was last revised on 2017. Testing performed by: [facility] 2, [address] [place] [address] Imm gran pct 0.9 % CERNER BJWCH Comment: Interpretive Data Percent cell count reference ranges are not reported, since discordance with absolute values may lead to misinterpretation of CBC data. Current Interpretive Data was last revised on 2017. Testing performed by: [facility], [facility], [address] [place] [address] Lymphocyte pct 4.6 % STAN STAPLETON Comment: Interpretive Data Percent cell count reference ranges are not reported, since discordance with absolute values may lead to misinterpretation of CBC data. Current Interpretive Data was last revised on 2017. Testing performed by: [facility], [facility], [address] [place] [address] Monocyte pct 9.5 % CERKERI STAPLETON Comment: Interpretive Data Percent cell count reference ranges are not reported, since discordance with absolute values may lead to misinterpretation of CBC data. Current Interpretive Data was last revised on 2017. Testing performed by: [facility] 2, [address] [place] [address] Eosinophil pct 0.0 % CERKERI STAPLETON Comment: Interpretive Data Percent cell count reference ranges are not reported, since discordance with absolute values may lead to misinterpretation of CBC data. Current Interpretive Data was last revised on 2017. Testing performed by: [facility], [facility], [address] [place] [address] Basophil pct 0.0 % STAN STAPLETON Comment: Interpretive Data Percent cell count reference ranges are not reported, since discordance with absolute values may lead to misinterpretation of CBC data. Current Interpretive Data was last revised on 2017. Testing performed by: [facility], [facility], [address] [place] [address] Blood 09/09/2024 7:32 AM CDT 09/09/2024 7:50 AM CDT us Gorge Vaughan MD PhD LAB BLOOD ORDERABLES Final Result STAN COREYCH [address] [facility]. [facility] [place] [address] * (ABNORMAL) CBC with auto differential (09/09/2024 7:32 AM CDT) [facility] Signature WBC 5.39 3.80 - 9.90 K/cumm Comment:Testing performed by : [place] [address], [address], [place] [address] Hgb 8.2(L) 13.0 - 17.5 g/dL CERNER BJWCH Comment:Testing performed by : [place] [address], [place] [address] Hct 24.8(L) 38.9 - 50.3 % CERNER BJWCH Comment:Testing performed by : [place] [address] [place] [address] Plt 62(L) 150 - 400 K/cumm CERNER BJWCH Comment:Testing performed by : [place] [address], [place] [address] MPV 10.4 9.1 - 12.3 fL CERNER BJWCH Comment:Testing performed by : [place] [address] [place] [address] RBC 2.30(L) 4.30 - 5.80 M/cumm CERNER BJWCH Comment:Testing performed by : [place] [address] [place] [address] MCV 107.8(H) 81.3 - 96.4 fL CERNER BJWCH Comment:Testing performed by : [place] [address], [place] [address] MCH 35.7(H) 27.1 - 33.3 pg CERNER BJWCH Comment:Testing performed by : [place] [address], [address] [place] [address] MCHC 33.1 32.3 - 35.7 g/dL CERNER BJWCH Comment:Testing performed by : [place] [address], [address] [place] [address] RDW CV 17.3(H) 11.1 - 14.9 % STAN STAPLETON Comment:Testing performed by : [facility], [facility], [address] [place] [address] RDW SD 70.0(H) 35.7 - 48.1 fL STAN STAPLETON Comment:Testing performed by : [facility], [facility], [address] [place] [address] ANC Prelim 4.58 1.50 - 6.50 K/cumm STAN STAPLETON Comment: Interpretive Data The rapid ANC is a preliminary automated count and may vary from the final ANC (Neut Abs) reported in the WBC differential that follows. Current interpretive data was last revised 2024. Testing performed by: [facility] [facility], [address] [place] [address] Morphologic Screen Results confirmed by manual morphology review. STAN [place] Comment:Testing performed by : [facility], [facility], [address] [place] [address] Blood 09/09/2024 7:32 AM CDT 09/09/2024 7:50 AM CDT Gorge Vaughan MD PhD LAB BLOOD ORDERABLES Edited Result - Final [facility] [address] [facility] Department of [place], [place] [id number] * (ABNORMAL) Cancer antigen 19-9 (09/09/2024 7:32 AM CDT) CA 19-9 ag 95.4(H) 0.0 - 35.0 units/mL Comment: Interpretive Data The Dereck CA 19-9 assay procedure was used. Results from different manufacturers or methods may not be comparable. Serial testing should be performed using the same method. Testing performed by: [facility], Formerly named [facility], [place]., [address] Blood 09/09/2024 7:32 AM CDT 09/09/2024 10:24 AM CDT us Gorge Vaughan MD PhD LAB BLOOD ORDERABLES Final Result Performing Organization Address [facility] Co de Phone Number STAN [facility] [id number] [facility]. [place] [address] * (ABNORMAL) Protime-INR (09/09/2024 7:32 AM CDT) PT 22.0(H) 9.7 - 13.0 sec Comment:Testing performed by : [facility], [address] [facility] [place] [address] INR 2.01(H) 0.90 - 1.20 STAN STAPLETON Comment: Interpretive data Oral anticoagulant therapeutic ranges: Venous thromboembolism prophylaxis or treatment: 2.0-3.0 CARDIOLOGY Standard range: 2.0-3.0 High-intensity range: 2.5-3.5 Refer to indication-specific guidelines for appropriate target ranges for prosthetic heart valve replacement. Current interpretive data was last revised on 2019. Testing performed by: [facility], [address] [facility], [place] [address] Blood 09/09/2024 7:32 AM CDT 09/09/2024 8:19 AM CDT us Chris Hart MD LAB BLOOD ORDERABLES Final Result Performing Organization Address [facility] de Phone Number CERNER [facility] [address] [facility]. [place] [address] * (ABNORMAL) Comprehensive metabolic panel (09/09/2024 7:32 AM CDT) Sodium 132(L) 135 - 145 mmol/L Comment:Testing performed by : [facility], [address] [facility], [place] [address] Potassium, pl 3.6 3.3 - 4.9 mmol/L STAN [place]TON Comment:Testing performed by : [facility], [address], [place] [address] Chloride 96(L) 97 - 110 mmol/L [facility]ER [facility] Comment:Testing performed by : [facility], [address], [place] [address] CO2 27 22 - 32 mmol/L [facility]ER [facility] Comment:Testing performed by : [facility], [address], [place] [address] Anion gap 9 2 - 15 mmol/L [facility] Comment:Testing performed by : [facility], [address], [place] [address] BUN 17 6 - 25 mg/dL [facility] Comment:Testing performed by : [facility], [address], [place] [address] Creatinine 0.80 0.80 - 1.30 mg/dL [facility] Comment:Testing performed by : [facility], [address], [place] [address] Glucose 117 70 - 199 mg/dL CERNER [...] was last revised 2022. Testing performed by: [facility], [address], [place] [address] Calcium 7.7(L) 8.5 - 10.3 mg/dL [facility]ER [facility] Comment:Testing performed by : [facility], [address], [place] [address] Bilirubin, total 0.7 0.1 - 1.2 mg/dL [facility] Comment:Testing performed by : [facility], [address], [place] [address] Protein, pl 5.1(L) 6.5 - 8.5 g/dL [facility] Comment:Testing performed by : [facility], [address], [place] [address] Albumin 2.6(L) 3.5 - 5.0 g/dL [facility] Comment:Testing performed by : [facility], [address], [place] [address] Alk phos 227(H) 40 - 130 Units/L [facility]ER [facility] Comment:Testing performed by : [facility], [address], [place] [address] ALT 28 7 - 55 Units/L C[facility]ER [facility] Comment:Testing performed by : [facility], [address], [place] [address] AST 50 10 - 50 Units/L C[facility]ER [facility] Comment:Testing performed by : [facility], [address], [place] [address] Blood 09/09/2024 7:32 AM CDT 09/09/2024 8:19 AM CDT us Gorge Vaughan MD PhD LAB BLOOD ORDERABLES Edited Result - Final [facility] [address]. [place] [address] * ECG 12 lead (09/07/2024 11:34 AM CDT) Ventricular Rate EKG/Min 65 BPM [facility] Atrial Rate 65 BPM [facility] DC-Interval (MSEC) 206 ms [facility] QRS-Interval (MSEC) 96 ms [facility] QT-Interval (MSEC) 506 ms [facility] QTc 526 ms [facility] P Dillwyn 18 degrees [facility] R [place]ill[place] -27 degrees [facility] T [place]ill[place] 241 degrees [facility] Diagnosis Atrial-paced rhythm Minimal voltage criteria for LVH, may be normal variant ( R in aVL ) T wave abnormality, consider inferior ischemia T wave abnormality, consider anterolateral ischemia Prolonged QT Abnormal ECG Confirmed by Georges Smith MD ([id number]) on 09/08/2024 4:32:43 PM [facility] Satomi 09/07/2024 11:3 4 AM CDT 09/08/2024 4:32 PM CDT Sharron Amador MD ECG ORDERABLES Final Result [facility] Satomi [facility] * XR Chest 1 View (09/07/2024 8:01 [...] CDT) Date Notified [id number] Time Notified 601 [facility] TestName pO2 Art and O2 Sat Art (Noni) [facility] Called/Read Back Sravani [facility] Credentials RN [facility] Called By KRISTIN [facility] Blood 09/07/2024 5:39 AM CDT 09/07/2024 5:49 AM CDT Perla Roldan MD LAB BLOOD ORDERABLES F inal Result [facility] [place] [address] * (ABNORMAL) Blood gas, arterial (09/07/2024 5:39 AM CDT) Pathologist [facility] pH, Art 7.45 7.35 - 7.45 PCO2, Arterial 43 35 - 45 mmHg [facility] PO2, Arterial 36(C) 83 - 108 mmHg [facility] Comment:Repeated and verifie d. HCO3 Art (Calculated) 31(H) 20 - 30 mmol/L [facility] BE, art 6 mmol/L [facility] Comment: Interpretive Data No Reference Range Established Current Interpretive Data was last revised on 2017 O2 Sat Art (Measured) 64(C) 90 - 95 % [facility] Comment:Repeated and verifie d. Blood 09/07/2024 5:39 AM CDT 09/07/2024 5:49 AM CDT us Perla Roldan MD LAB BLOOD ORDERABLES F inal Result [facility] [place] [address] * eGFR (09/07/2024 2:43 AM CDT) Pathologist [facility] eGFR >90 >=60 mL/min/1. 73 m2 Comment: [...] MD LAB BLOOD ORDERABLES Lila dawson Result [facility] [place] [address] * (ABNORMAL) Differential, auto (09/07/2024 2:43 AM CDT) Neutrophil abs 5.50 1.50 - 6.50 K/cumm Imm gran abs 0.04 0.00 - 0.10 K/cumm [facility] Lymphocyte abs 0.21(L) 0.80 - 3.30 K/cumm [facility] Monocyte abs 0.42 0.20 - 0.80 K/cumm [facility] Eosinophil abs 0.01 0.00 - 0.50 K/cumm [facility] Basophil abs 0.01 0.00 - 0.10 K/cumm [facility] Neutrophil pct 88.8 % [facility] Comment: Interpretive Data Percent cell count reference ranges are not reported, since discordance with absolute values may lead to misinterpretation of CBC data. Current Interpretive Data was last revised on 2017. Imm gran pct 0.6 % [facility] Comment: Interpretive Data Percent cell count reference ranges are not reported, since discordance with absolute values may lead to misinterpretation of CBC data. Current Interpretive Data was last revised on 2017. Lymphocyte pct 3.4 % [facility] Comment: Interpretive Data Percent cell count reference ranges are not reported, since discordance with absolute values may lead to misinterpretation of CBC data. Current Interpretive Data was last revised on 2017. Monocyte pct 6.8 % [facility] Comment: Interpretive Data Percent cell count reference ranges are not reported, since discordance with absolute values may lead to misinterpretation of CBC data. Current Interpretive Data was last revised on 2017. Eosinophil pct 0.2 % [facility] Comment: Interpretive Data Percent cell count reference ranges are not reported, since discordance with absolute values may lead to misinterpretation of CBC data. Current Interpretive Data was last revised on 2017. Basophil pct 0.2 % [facility] Comment: Interpretive Data Percent cell count reference ranges are not reported, since discordance with absolute values may lead to misinterpretation of CBC data. Current Interpretive Data was last revised on 2017. Blood 09/07/2024 2:43 AM CDT 09/07/2024 4:42 AM CDT us Smith Sawyer MD LAB BLOOD ORDERABLES Lila dawson Result [facility] [place] [address] * Critical Result Callback Chemistry (09/07/2024 2:43 AM CDT) Date Notified [id number] Time Notified 454 [facility] TestName p O2 Art [facility] Called/Read Back Olivier CORE[facility] Credentials RN [facility] Called By LUKAS [facility] Blood 09/07/2024 2:43 AM CDT 09/07/2024 4:41 AM CDT us Perla Roldan MD LAB BLOOD ORDERABLES F inal Result Performing Organization Address [facility] Co de Phone Number [facility] [place] [address] * (ABNORMAL) CBC with auto differential (09/07/2024 2:43 AM CDT) Pathologist [facility] WBC 6.19 3.80 - 9.90 K/cumm Hgb 10.1(L) 13.0 - 17.5 g/dL [facility] Hct 30.0(L) 38.9 - 50.3 % [facility] Plt 57(L) 150 - 400 K/cumm [facility] MPV 11.7 9.1 - 12.3 fL [facility] RBC 2.80(L) 4.30 - 5.80 M/cumm [facility] MCV 107.1(H) 81.3 - 96.4 fL [facility] MCH 36.1(H) 27.1 - 33.3 pg [facility] MCHC 33.7 32.3 - 35.7 g/dL [facility] RDW CV 18.8(H) 11.1 - 14.9 % [facility] RDW SD 73.8(H) 35.7 - 48.1 fL [facility] NRBC abs 0.00 0.00 - 0.01 K/cumm [facility] Blood 09/07/2024 2:43 AM CDT 09/07/2024 4:42 AM CDT Smith Sawyer MD LAB BLOOD ORDERABLES Lila l Result Performing Organization Address City/[facility]/ZIP Co de Phone Number [facility] [place] [address] * aPTT (09/07/2024 2:43 AM CDT) Pathologist [facility] aPTT 32 28 - 38 sec Comment: Interpretive Data Heparin therapeutic range: 66.0 - 100.0 seconds. Range based on correlation with therapeutic heparin activity range of 0.3 - 0.7 Units/mL. Current interpretive data was last revised on 2023. Blood 09/07/2024 2:43 AM CDT 09/07/2024 4:40 AM CDT Result [facility] Smith Sawyer MD LAB BLOOD ORDERABLES Lila l Result Performing Organization Address [facility] Phone Number [facility] [place] [address] * (ABNORMAL) Protime-INR (09/07/2024 2:43 AM CDT) PT 28.4(H) 9.7 - 13.0 sec INR 2.58(H) 0.90 - 1.20 [facility] Comment: Interpretive data Oral anticoagulant therapeutic ranges: Venous thromboembolism prophylaxis or treatment: 2.0-3.0 CARDIOLOGY Standard range: 2.0-3.0 High-intensity range: 2.5-3.5 Refer to indication-specific guidelines for appropriate target ranges for prosthetic heart valve replacement. Current interpretive data was last revised on 2019. Blood 09/07/2024 2:43 AM CDT 09/07/2024 4:40 AM CDT Result [facility] Zuleima Levine MD LAB BLOOD ORDERABLES Lila l Result Performing Organization Address [facility] de Phone Number [facility] [place] [address] * Type and screen (09/07/2024 2:43 AM CDT) Minna, indirect Negative ABO Rh A Positive [facility] Blood 09/07/2024 2:43 AM CDT 09/07/2024 4:44 AM CDT Narrative [facility] - 09/07/2024 7:55 AM CDT Has the patient had Daratumumab or Isatuximab in the past 6 months?->Unknown us Smith Sawyer MD LAB BLOOD BANK TEST ORDER DEMETRIO Final Result Performing Organization Address [facility] de Phone Number [facility] [place] [address] * Uric acid (09/07/2024 2:43 AM CDT) Uric acid 3.8 3.0 - 8.0 mg/dL Blood 09/07/2024 2:43 AM CDT 09/07/2024 4:42 AM CDT Narrative [facility] - 09/07/2024 5:14 AM CDT Saturday and only. Morning draw. . us Smith Sawyer MD LAB BLOOD ORDERABLES Lila l Result Performing Organization Address [facility] de Phone Number [facility] [place] [address] * Phosphorus (09/07/2024 2:43 AM CDT) Phosphorus, pl 2.9 2.3 - 4.5 mg/dL Blood 09/07/2024 2:43 AM CDT 09/07/2024 4:42 AM CDT us Smith Sawyer MD LAB BLOOD ORDERABLES Lila l Result Performing Organization Address [facility] Co de Phone Number [facility] [place] [address] * (ABNORMAL) Lactate dehydrogenase (LD) (09/07/2024 2:43 AM CDT) Lactate dehydrogenase (LDH) 371(H) 100 - 250 Units/L Blood 09/07/2024 2:43 AM CDT 09/07/2024 4:42 AM CDT Narrative [facility] - 09/07/2024 5:14 AM CDT Saturday and only. Morning draw. us Smith Sawyer MD LAB BLOOD ORDERABLES Lila dawson Result Performing Organization Address [facility] Co de Phone Number [facility] [place] [address] * (ABNORMAL) Blood gas, arterial (09/07/2024 2:43 AM CDT) pH, Art 7.45 7.35 - 7.45 PCO2, Arterial 42 35 - 45 mmHg [facility] PO2, Arterial 32(C) 83 - 108 mmHg [facility] Comment:Repeated and verifie d. HCO3 Art (Calculated) 30 20 - 30 mmol/L [facility] BE, art 4 mmol/L [facility] Comment: Interpretive Data No Reference Range Established Current Interpretive Data was last revised on 2017 O2 Sat Art (Measured) 58(C) 90 - 95 % [facility] Comment:Repeated and verifie d. Blood 09/07/2024 2:43 AM CDT 09/07/2024 4:41 AM CDT Perla Roldan MD LAB BLOOD ORDERABLES F inal Result Performing Organization Address [facility] de Phone Number [facility] [place] [address] * (ABNORMAL) Comprehensive metabolic panel (09/07/2024 2:43 AM CDT) Sodium 136 135 - 145 mmol/L Potassium, pl 3.8 3.3 - 4.9 mmol/L [facility] Chloride 96(L) 97 - 110 mmol/L [facility] CO2 33(H) 22 - 32 mmol/L [facility] Anion gap 7 2 - 15 mmol/L [facility] BUN 15 6 - 25 mg/dL [facility] Creatinine 0.84 0.80 - 1.30 mg/dL [facility] Glucose 116 70 - 199 mg/dL [facility] Comment: Interpretive Data Fasting glucose [...] 7.9(L) 8.5 - 10.3 mg/dL [facility] Bilirubin, total 1.4(H) 0.1 - 1.2 mg/dL [facility] Protein, pl 5.4(L) 6.5 - 8.5 g/dL [facility] Albumin 2.4(L) 3.5 - 5.0 g/dL [facility] Alk phos 275(H) 40 - 130 Units/L [facility] ALT 31 7 - 55 Units/L [facility] AST 78(H) 10 - 50 Units/L [facility] Blood 09/07/2024 2:43 AM CDT 09/07/2024 4:42 AM CDT us Smith Swayer MD LAB BLOOD ORDERABLES Lila dawson Result [facility] [place] [address] * eGFR (09/06/2024 12:41 AM CDT) eGFR [...] MD LAB BLOOD ORDERABLES Lila dawson Result [facility] [place] [address] * (ABNORMAL) Differential, auto (09/06/2024 12:41 AM CDT) Neutrophil abs 4.99 1.50 - 6.50 K/cumm Imm gran abs 0.07 0.00 - 0.10 K/cumm [facility] Lymphocyte abs 0.35(L) 0.80 - 3.30 K/cumm [facility] Monocyte abs 0.94(H) 0.20 - 0.80 K/cumm [facility] Eosinophil abs 0.01 0.00 - 0.50 K/cumm [facility] Basophil abs 0.01 0.00 - 0.10 K/cumm [facility] Neutrophil pct 78.2 % [facility] Comment: Interpretive Data Percent cell count reference ranges are not reported, since discordance with absolute values may lead to misinterpretation of CBC data. Current Interpretive Data was last revised on 2017. Imm gran pct 1.1 % [facility] Comment: Interpretive Data Percent cell count reference ranges are not reported, since discordance with absolute values may lead to misinterpretation of CBC data. Current Interpretive Data was last revised on 2017. Lymphocyte pct 5.5 % [facility] Comment: Interpretive Data Percent cell count reference ranges are not reported, since discordance with absolute values may lead to misinterpretation of CBC data. Current Interpretive Data was last revised on 2017. Monocyte pct 14.8 % [facility] Comment: Interpretive Data Percent cell count reference ranges are not reported, since discordance with absolute values may lead to misinterpretation of CBC data. Current Interpretive Data was last revised on 2017. Eosinophil pct 0.2 % [facility] Comment: Interpretive Data Percent cell count reference ranges are not reported, since discordance with absolute values may lead to misinterpretation of CBC data. Current Interpretive Data was last revised on 2017. Basophil pct 0.2 % [facility] Comment: Interpretive Data Percent cell count reference ranges are not reported, since discordance with absolute values may lead to misinterpretation of CBC data. Current Interpretive Data was last revised on 2017. Blood 09/06/2024 12:4 1 AM CDT 09/06/2024 12:55 AM CDT Smith Sawyer MD LAB BLOOD ORDERABLES Lila dawson Result [facility] [place] [address] * (ABNORMAL) CBC with auto differential (09/06/2024 12:41 AM CDT) WBC 6.37 3.80 - 9.90 K/cumm Hgb 8.6(L) 13.0 - 17.5 g/dL [facility] Hct 25.3(L) 38.9 - 50.3 % [facility] Plt 61(L) 150 - 400 K/cumm [facility] MPV 11.6 9.1 - 12.3 fL [facility] RBC 2.35(L) 4.30 - 5.80 M/cumm [facility] MCV 107.7(H) 81.3 - 96.4 fL [facility] MCH 36.6(H) 27.1 - 33.3 pg [facility] MCHC 34.0 32.3 - 35.7 g/dL [facility] RDW CV 18.8(H) 11.1 - 14.9 % [facility] RDW SD 74.0(H) 35.7 - 48.1 fL [facility] NRBC abs 0.00 0.00 - 0.01 K/cumm [facility] Blood 09/06/2024 12:4 1 AM CDT 09/06/2024 12:55 AM CDT Smith Sawyer MD LAB BLOOD ORDERABLES Lila l Result Performing Organization Address [facility] Co de Phone Number [facility] [place] [address] * (ABNORMAL) Protime-INR (09/06/2024 12:41 AM CDT) PT 26.9(H) 9.7 - 13.0 sec INR 2.45(H) 0.90 - 1.20 [facility] Comment: Interpretive data Oral anticoagulant [...] ORDERABLES Lila l Result Performing Organization Address [facility] Co de Phone Number [facility] [place] [address] * Phosphorus (09/06/2024 12:41 AM CDT) Phosphorus, pl 3.2 2.3 - 4.5 mg/dL Blood 09/06/2024 12:4 1 AM CDT 09/06/2024 12:55 AM CDT Smith Sawyer MD LAB BLOOD ORDERABLES Lila l Result Performing Organization Address [facility] Co de Phone Number [facility] [place] [address] * (ABNORMAL) Comprehensive metabolic panel (09/06/2024 12:41 AM CDT) Sodium 135 135 - 145 mmol/L Potassium, pl 3.9 3.3 - 4.9 mmol/L [facility] Chloride 97 97 - 110 mmol/L [facility] CO2 33(H) 22 - 32 mmol/L [facility] Anion gap 5 2 - 15 mmol/L [facility] BUN 14 6 - 25 mg/dL [facility] Creatinine 0.83 0.80 - 1.30 mg/dL [facility] Glucose 98 70 - 199 mg/dL [facility] Comment: Interpretive Data Fasting glucose [...] 2022. Calcium 7.7(L) 8.5 - 10.3 mg/dL [facility] Bilirubin, total 0.6 0.1 - 1.2 mg/dL [facility] Protein, pl 5.0(L) 6.5 - 8.5 g/dL [facility] Albumin 2.2(L) 3.5 - 5.0 g/dL [facility] Alk phos 139(H) 40 - 130 Units/L [facility] ALT 20 7 - 55 Units/L [facility] AST 46 10 - 50 Units/L [facility] Blood 09/06/2024 12:4 1 AM CDT 09/06/2024 12:55 AM CDT us Smith Sawyer MD LAB BLOOD ORDERABLES Lila eunice Result [facility] [place] [address] * eGFR (09/05/2024 1:43 AM CDT) eGFR [...] LAB BLOOD ORDERABLES Lila eunice Result [facility] [place] [address] * (ABNORMAL) Differential, auto (09/05/2024 1:43 AM CDT) Pathologist [facility] Neutrophil abs 3.92 1.50 - 6.50 K/cumm Imm gran abs 0.04 0.00 - 0.10 K/cumm [facility] Lymphocyte abs 0.28(L) 0.80 - 3.30 K/cumm [facility] Monocyte abs 0.58 0.20 - 0.80 K/cumm [facility] Eosinophil abs 0.00 0.00 - 0.50 K/cumm [facility] Basophil abs 0.00 0.00 - 0.10 K/cumm [facility] Neutrophil pct 81.4 % [facility] Comment: Interpretive Data Percent cell count reference ranges are not reported, since discordance with absolute values may lead to misinterpretation of CBC data. Current Interpretive Data was last revised on 2017. Imm gran pct 0.8 % [facility] Comment: Interpretive Data Percent cell count reference ranges are not reported, since discordance with absolute values may lead to misinterpretation of CBC data. Current Interpretive Data was last revised on 2017. Lymphocyte pct 5.8 % [facility] Comment: Interpretive Data Percent cell count reference ranges are not reported, since discordance with absolute values may lead to misinterpretation of CBC data. Current Interpretive Data was last revised on 2017. Monocyte pct 12.0 % [facility] Comment: Interpretive Data Percent cell count reference ranges are not reported, since discordance with absolute values may lead to misinterpretation of CBC data. Current Interpretive Data was last revised on 2017. Eosinophil pct 0.0 % [facility] Comment: Interpretive Data Percent cell count reference ranges are not reported, since discordance with absolute values may lead to misinterpretation of CBC data. Current Interpretive Data was last revised on 2017. Basophil pct 0.0 % [facility] Comment: Interpretive Data Percent cell count reference ranges are not reported, since discordance with absolute values may lead to misinterpretation of CBC data. Current Interpretive Data was last revised on 2017. Blood 09/05/2024 1:43 AM CDT 09/05/2024 2:00 AM CDT us Smith Sawyer MD LAB BLOOD ORDERABLES Lila l Result [facility] Department [place] [address] * (ABNORMAL) CBC with auto differential (09/05/2024 1:43 AM CDT) WBC 4.82 3.80 - 9.90 K/cumm Hgb 9.2(L) 13.0 - 17.5 g/dL [facility] Hct 26.3(L) 38.9 - 50.3 % [facility] Plt 82(L) 150 - 400 K/cumm [facility] MPV 11.8 9.1 - 12.3 fL [facility] RBC 2.47(L) 4.30 - 5.80 M/cumm [facility] MCV 106.5(H) 81.3 - 96.4 fL [facility] MCH 37.2(H) 27.1 - 33.3 pg [facility] MCHC 35.0 32.3 - 35.7 g/dL [facility] RDW CV 19.3(H) 11.1 - 14.9 % [facility] RDW SD 75.1(H) 35.7 - 48.1 fL [facility] NRBC abs 0.00 0.00 - 0.01 K/cumm [facility] Blood 09/05/2024 1:43 AM CDT 09/05/2024 2:00 AM CDT us Smith Sawyer MD LAB BLOOD ORDERABLES Lila l Result [facility] [place] [address] * (ABNORMAL) Protime-INR (09/05/2024 1:43 AM CDT) PT 21.5(H) 9.7 - 13.0 sec INR 1.96(H) 0.90 - 1.20 [facility] Comment: Interpretive data Oral anticoagulant therapeutic ranges: Venous thromboembolism prophylaxis or treatment: 2.0-3.0 CARDIOLOGY Standard range: 2.0-3.0 High-intensity range: 2.5-3.5 Refer to indication-specific guidelines for appropriate target ranges for prosthetic heart valve replacement. Current interpretive data was last revised on 2019. Blood 09/05/2024 1:43 AM CDT 09/05/2024 2:05 AM CDT Zuleima Levine MD LAB BLOOD ORDERABLES Lila l Result [facility] [place] [address] * Phosphorus (09/05/2024 1:43 AM CDT) Pathologist [facility] Phosphorus, pl 4.1 2.3 - 4.5 mg/dL Blood 09/05/2024 1:43 AM CDT 09/05/2024 2:00 AM CDT Smith Sawyer MD LAB BLOOD ORDERABLES Lila l Result Performing Organization Address [facility] Co de Phone Number [facility] [place] [address] * (ABNORMAL) Comprehensive metabolic panel (09/05/2024 1:43 AM CDT) [facility] Sodium 138 135 - 145 mmol/L Potassium, pl 3.6 3.3 - 4.9 mmol/L [facility] Chloride 97 97 - 110 mmol/L [facility] CO2 33(H) 22 - 32 mmol/L [facility] Anion gap 8 2 - 15 mmol/L [facility] BUN 13 6 - 25 mg/dL [facility] Creatinine 0.90 0.80 - 1.30 mg/dL [facility] Glucose 110 70 - 199 mg/dL [facility] Comment: Interpretive Data Fasting glucose [...] 2022. Calcium 8.0(L) 8.5 - 10.3 mg/dL [facility] Bilirubin, total 0.6 0.1 - 1.2 mg/dL [facility] Protein, pl 5.3(L) 6.5 - 8.5 g/dL [facility] Albumin 2.7(L) 3.5 - 5.0 g/dL [facility] Alk phos 135(H) 40 - 130 Units/L [facility] ALT 22 7 - 55 Units/L [facility] AST 44 10 - 50 Units/L [facility] Blood 09/05/2024 1:43 AM CDT 09/05/2024 2:00 AM CDT us Smith Sawyer MD LAB BLOOD ORDERABLES Lila dawson Result [facility] [place] [address] * XR Chest 1 View (09/04/2024 11:51 [...] CDT Narrative 09/04/2024 11:04 AM CDT [facility] [place] [address] Transthoracic Echocardiographic Report Patient Name: SULMA BAZAN AL : 1950 (74y 1m) Gender: M Study Date: 09/04/2024 08:53:34 Ht(Inch): 70 Wt(Lb): 218.03 BSA: 2.21 [facility] Care Program Resident: mary cross Location: [id number] Order Provider: FRANCISCO SAHU Heart Rate: 60 [...] LA Length 4C 6.12 cm AI Decel [place] 3.63 m/s2 LA Length 2C 7.21 cm [...] Note Gilberto Fish MD - 09/04/2024 [facility] [place] [address] Transthoracic Echocardiographic Report Patient Name: SULMA BAZAN AL : 1950 (74y 1m) Gender: M Study Date: 09/04/2024 08:53:34 Ht(Inch): 70 Wt(Lb): 218.03 BSA: 2.21 Memory Care Program Resident: mary cross Location: [id number] Order Provider:FRANCISCO SAHU Heart Rate: 60 BMI: [...] [ -25.0 - -18.0 ] AI Decel [id number] sec LA Length 4C 6.12 cm AI Decel [place]3.63 m/s2 LA Length 2C 7.21 cm AI [id number] msec LA Volume BP 133.31 ml MV [...] By: Gilberto Fish MD 09/04/2024 11:03:58 CDT Francisco Sahu MD CV ECHO PROCEDURES Fin [...] MD LAB BLOOD ORDERABLES Lila l Result [facility] Department [place] [address] * (ABNORMAL) Differential, auto (09/04/2024 12:25 AM CDT) Neutrophil abs 2.69 1.50 - 6.50 K/cumm Imm gran abs 0.01 0.00 - 0.10 K/cumm [facility] Lymphocyte abs 0.25(L) 0.80 - 3.30 K/cumm [facility] Monocyte abs 0.42 0.20 - 0.80 K/cumm [facility] Eosinophil abs 0.00 0.00 - 0.50 K/cumm [facility] Basophil abs 0.01 0.00 - 0.10 K/cumm [facility] Neutrophil pct 79.6 % [facility] Comment: Interpretive Data Percent cell count reference ranges are not reported, since discordance with absolute values may lead to misinterpretation of CBC data. Current Interpretive Data was last revised on 2017. Imm gran pct 0.3 % [facility] Comment: Interpretive Data Percent cell count reference ranges are not reported, since discordance with absolute values may lead to misinterpretation of CBC data. Current Interpretive Data was last revised on 2017. Lymphocyte pct 7.4 % [facility] Comment: Interpretive Data Percent cell count reference ranges are not reported, since discordance with absolute values may lead to misinterpretation of CBC data. Current Interpretive Data was last revised on 2017. Monocyte pct 12.4 % [facility] Comment: Interpretive Data Percent cell count reference ranges are not reported, since discordance with absolute values may lead to misinterpretation of CBC data. Current Interpretive Data was last revised on 2017. Eosinophil pct 0.0 % [facility] Comment: Interpretive Data Percent cell count reference ranges are not reported, since discordance with absolute values may lead to misinterpretation of CBC data. Current Interpretive Data was last revised on 2017. Basophil pct 0.3 % [facility] Comment: Interpretive Data Percent cell count reference ranges are not reported, since discordance with absolute values may lead to misinterpretation of CBC data. Current Interpretive Data was last revised on 2017. Blood 09/04/2024 12:2 5 AM CDT 09/04/2024 1:15 AM CDT us Smith Sawyer MD LAB BLOOD ORDERABLES Lila dawson Result [facility] Department [place] [address] * (ABNORMAL) Pro B-type natriuretic peptide (09/04/2024 12:25 AM CDT) [facility] NT-proBNP 1,527(H) <=450 pg/mL Comment: Interpretive Comments: [...] Heart J. 2006:27:330-337. 2. Taylor RW, Cyndee AM. J. AM Sarah Cardiol: Cardiovasc Imag. 2009;2: 216- 225. Interpretive Data Last Revised Date: 2017. Blood 09/04/2024 12:2 5 AM CDT 09/04/2024 1:13 AM CDT us Francisco Sahu MD LAB BLOOD ORDERABLES F inal Result [facility] Department [place] [address] * (ABNORMAL) CBC with auto differential (09/04/2024 12:25 AM CDT) WBC 3.38(L) 3.80 - 9.90 K/cumm Hgb 8.9(L) 13.0 - 17.5 g/dL [facility] Hct 26.1(L) 38.9 - 50.3 % [facility] Plt 74(L) 150 - 400 K/cumm [facility] MPV 11.9 9.1 - 12.3 fL [facility] RBC 2.45(L) 4.30 - 5.80 M/cumm [facility] MCV 106.5(H) 81.3 - 96.4 fL [facility] MCH 36.3(H) 27.1 - 33.3 pg [facility] MCHC 34.1 32.3 - 35.7 g/dL [facility] RDW CV 19.5(H) 11.1 - 14.9 % [facility] RDW SD 74.8(H) 35.7 - 48.1 fL [facility] NRBC abs 0.00 0.00 - 0.01 K/cumm [facility] Blood 09/04/2024 12:2 5 AM CDT 09/04/2024 1:15 AM CDT Smith Sawyer MD LAB BLOOD ORDERABLES Lila dawson Result [facility] [place] [address] * (ABNORMAL) Protime-INR (09/04/2024 12:25 AM CDT) Pathologist [facility] PT 18.3(H) 9.7 - 13.0 sec INR 1.68(H) 0.90 - 1.20 [facility] Comment: Interpretive data Oral anticoagulant therapeutic ranges: Venous thromboembolism prophylaxis or treatment: 2.0-3.0 CARDIOLOGY Standard range: 2.0-3.0 High-intensity range: 2.5-3.5 Refer to indication-specific guidelines for appropriate target ranges for prosthetic heart valve replacement. Current interpretive data was last revised on 2019. Blood 09/04/2024 12:2 5 AM CDT 09/04/2024 1:11 AM CDT Zuleima Levine MD LAB BLOOD ORDERABLES Lila l Result [facility] [place] [address] * Phosphorus (09/04/2024 12:25 AM CDT) Pathologist [facility] Phosphorus, pl 3.0 2.3 - 4.5 mg/dL Blood 09/04/2024 12:2 5 AM CDT 09/04/2024 1:13 AM CDT Smith Sawyer MD LAB BLOOD ORDERABLES Lila l Result Performing Organization Address [facility] Co de Phone Number [facility] Department [place] [address] * (ABNORMAL) Comprehensive metabolic panel (09/04/2024 12:25 AM CDT) [facility] Sodium 137 135 - 145 mmol/L Potassium, pl 4.1 3.3 - 4.9 mmol/L [facility] Chloride 101 97 - 110 mmol/L [facility] CO2 29 22 - 32 mmol/L [facility] Anion gap 7 2 - 15 mmol/L [facility] BUN 15 6 - 25 mg/dL [facility] Creatinine 0.80 0.80 - 1.30 mg/dL [facility] Glucose 125 70 - 199 mg/dL [facility] Comment: Interpretive Data Fasting glucose [...] Calcium 8.2(L) 8.5 - 10.3 mg/dL [facility] Bilirubin, total 0.5 0.1 - 1.2 mg/dL [facility] Protein, pl 5.2(L) 6.5 - 8.5 g/dL [facility] Albumin 2.6(L) 3.5 - 5.0 g/dL [facility] Alk phos 96 40 - 130 Units/L [facility] ALT 20 7 - 55 Units/L [facility] AST 42 10 - 50 Units/L [facility] Blood 09/04/2024 12:2 5 AM CDT 09/04/2024 1:13 AM CDT us Smith Sawyer MD LAB BLOOD ORDERABLES Lila l Result Performing Organization Address City/State/[facility] Co de Phone Number [facility] Department of Laboratories [place] [phone] * US Vein Duplex Lower Extremity Bilateral Complete (09/03/2024 3:52 PM CDT) Anatomical Region Laterality Modality Vascular Bilateral Ultrasound 09/03/2024 3:31 PM CDT Narrative 09/04/2024 4:15 PM CDT [facility] - Department of Vascular Surgery, Vascular Laboratory [address] [place] [id number] Lower Extremity Venous Ultrasound Report Patient Name: SULMA BAZAN AL : 1950 (74y 1m) Study Date: 09/03/2024 3:31:25 PM Gender: M Tech: Location: [id number] Ref Provider: FRANCISCO SAHU Quality: Adequate Order [...] Swelling, Lower Extremity, Bilateral - FINDINGS: Performing Memory Care Program Resident: Alethea Osorio RVT, RDMS. Bilateral: Venous Doppler [...] Procedure Note Michael Torres MD - 09/04/2024 [facility] - Department of Vascular Surgery,Vascular Laboratory [address] [place] [id number] Lower Extremity Venous Ultrasound Report Patient Name: SULMA BAZAN AL : 1950 (74y 1m) Study Date: 09/03/2024 3:31:25 PM Gender: M Tech: Location: [id number] Ref Provider: FRANCISCO SAHU Quality: Adequate Order Provider: FRANCISCO SAHU PROCEDURES: Vascular Report: Venous Duplex imaging was performed bilaterally in the lower extremities.The common femoral, femoral, popliteal, posterior tibial, peroneal veins wereevaluated for patency, spontaneity and phasicity with Doppler, compression and augmentationmaneuvers. Great saphenous vein proximal at the junction was evaluated with compressionmaneuvers. INDICATIONS: Swelling, Lower Extremity, Bilateral - FINDINGS: Performing Memory Care Program Resident: Alethea Osorio RVT, RDMS. Bilateral: Venous Doppler [...] above. Electronically Signed By: Michael Torres MD [facility] 09/04/2024 4:00:58 PM CDT us [place] Filippo Sahu MD [facility] US PROCEDURES Lila l Result * XR [...] LAB BLOOD ORDERABLES Lila l Result [facility] Department of Laboratories [place], [place] [id number] * (ABNORMAL) Differential, auto (09/03/2024 12:59 AM CDT) Pathologist [facility] Neutrophil abs 3.63 1.50 - 6.50 K/cumm Imm gran abs 0.03 0.00 - 0.10 K/cumm [facility] Lymphocyte abs 0.27(L) 0.80 - 3.30 K/cumm [facility] Monocyte abs 0.72 0.20 - 0.80 K/cumm [facility] Eosinophil abs 0.05 0.00 - 0.50 K/cumm [facility] Basophil abs 0.02 0.00 - 0.10 K/cumm [facility] Neutrophil pct 76.9 % [facility] Comment: Interpretive Data Percent cell count reference ranges are not reported, since discordance with absolute values may lead to misinterpretation of CBC data. Current Interpretive Data was last revised on 2017. Imm gran pct 0.6 % [facility] Comment: Interpretive Data Percent cell count reference ranges are not reported, since discordance with absolute values may lead to misinterpretation of CBC data. Current Interpretive Data was last revised on 2017. Lymphocyte pct 5.7 % [facility] Comment: Interpretive Data Percent cell count reference ranges are not reported, since discordance with absolute values may lead to misinterpretation of CBC data. Current Interpretive Data was last revised on 2017. Monocyte pct 15.3 % [facility] Comment: Interpretive Data Percent cell count reference ranges are not reported, since discordance with absolute values may lead to misinterpretation of CBC data. Current Interpretive Data was last revised on 2017. Eosinophil pct 1.1 % [facility] Comment: Interpretive Data Percent cell count reference ranges are not reported, since discordance with absolute values may lead to misinterpretation of CBC data. Current Interpretive Data was last revised on 2017. Basophil pct 0.4 % [facility] Comment: Interpretive Data Percent cell count reference ranges are not reported, since discordance with absolute values may lead to misinterpretation of CBC data. Current Interpretive Data was last revised on 2017. Blood 09/03/2024 12:5 9 AM CDT 09/03/2024 1:14 AM CDT Smith Sawyer MD LAB BLOOD ORDERABLES Lila l Result [facility] [place] [address] * (ABNORMAL) CBC with auto differential (09/03/2024 12:59 AM CDT) WBC 4.72 3.80 - 9.90 K/cumm Hgb 9.1(L) 13.0 - 17.5 g/dL [facility] Hct 25.8(L) 38.9 - 50.3 % [facility] Plt 82(L) 150 - 400 K/cumm [facility] MPV 11.5 9.1 - 12.3 fL [facility] RBC 2.41(L) 4.30 - 5.80 M/cumm [facility] MCV 107.1(H) 81.3 - 96.4 fL [facility] MCH 37.8(H) 27.1 - 33.3 pg [facility] MCHC 35.3 32.3 - 35.7 g/dL [facility] RDW CV 19.9(H) 11.1 - 14.9 % [facility] RDW SD 76.8(H) 35.7 - 48.1 fL [facility] NRBC abs 0.00 0.00 - 0.01 K/cumm [facility] Blood 09/03/2024 12:5 9 AM CDT 09/03/2024 1:14 AM CDT Smith Sawyer MD LAB BLOOD ORDERABLES Lila l Result [facility] [place] [address] * (ABNORMAL) Protime-INR (09/03/2024 12:59 AM CDT) PT 18.3(H) 9.7 - 13.0 sec INR 1.68(H) 0.90 - 1.20 [facility] Comment: Interpretive data Oral anticoagulant [...] ORDERABLES Lila l Result Performing Organization Address City/[facility]/ZIP Co de Phone Number [facility] [place] [address] * Type and screen (09/03/2024 12:59 AM CDT) Minna, indirect Negative ABO Rh A Positive [facility] Blood 09/03/2024 12:5 9 AM CDT 09/03/2024 1:31 AM CDT Narrative [facility] - 09/03/2024 3:30 AM CDT Has the patient had Daratumumab or Isatuximab in the past 6 months?->Unknown Result [facility] Smith Sawyer MD LAB BLOOD BANK TEST ORDER DEMETRIO Final Result Performing Organization Address City/[facility]/ZIP Co de Phone Number [facility] [place] [address] * Uric acid (09/03/2024 12:59 AM CDT) Uric acid 5.0 3.0 - 8.0 mg/dL Blood 09/03/2024 12:5 9 AM CDT 09/03/2024 1:14 AM CDT Narrative [facility] - 09/03/2024 1:43 AM CDT Saturday and only. Morning draw. . Smith Sawyer MD LAB BLOOD ORDERABLES Lila l Result Performing Organization Address [facility] de Phone Number [facility] [place] [address] * Phosphorus (09/03/2024 12:59 AM CDT) Phosphorus, pl 2.7 2.3 - 4.5 mg/dL Blood 09/03/2024 12:5 9 AM CDT 09/03/2024 1:14 AM CDT Smith Sawyer MD LAB BLOOD ORDERABLES Lila l Result Performing Organization Address [facility] de Phone Number [facility] [place] [address] * Magnesium (09/03/2024 12:59 AM CDT) Pathologist [facility] Magnesium 1.6 1.4 - 2.5 mg/dL Blood 09/03/2024 12:5 9 AM CDT 09/03/2024 1:14 AM CDT Zuleima Levine MD LAB BLOOD ORDERABLES Lila l Result Performing Organization Address [facility] de Phone Number [facility] [place] [address] * (ABNORMAL) Lactate dehydrogenase (LD) (09/03/2024 12:59 AM CDT) Lactate dehydrogenase (LDH) 356(H) 100 - 250 Units/L Blood 09/03/2024 12:5 9 AM CDT 09/03/2024 1:14 AM CDT Narrative [facility] - 09/03/2024 1:43 AM CDT Saturday and only. Morning draw. Smith Sawyer MD LAB BLOOD ORDERABLES Lila l Result Performing Organization Address [facility]/ZIP Co de Phone Number [facility] [place] [address] * (ABNORMAL) Comprehensive metabolic panel (09/03/2024 12:59 AM CDT) Sodium 133(L) 135 - 145 mmol/L Potassium, pl 3.1(L) 3.3 - 4.9 mmol/L [facility] Chloride 99 97 - 110 mmol/L [facility] CO2 28 22 - 32 mmol/L [facility] Anion gap 6 2 - 15 mmol/L [facility] BUN 15 6 - 25 mg/dL [facility] Creatinine 0.82 0.80 - 1.30 mg/dL [facility] Glucose 121 70 - 199 mg/dL [facility] Comment: Interpretive Data Fasting glucose [...] 2022. Calcium 7.9(L) 8.5 - 10.3 mg/dL [facility] Bilirubin, total 0.7 0.1 - 1.2 mg/dL [facility] Protein, pl 4.9(L) 6.5 - 8.5 g/dL [facility] Albumin 2.6(L) 3.5 - 5.0 g/dL [facility] Alk phos 86 40 - 130 Units/L [facility] ALT 22 7 - 55 Units/L [facility] AST 45 10 - 50 Units/L [facility] Blood 09/03/2024 12:5 9 AM CDT 09/03/2024 1:14 AM CDT us Smith Sawyer MD LAB BLOOD ORDERABLES Lila l [facility] [place] [address] * eGFR (09/02/2024 12:41 AM CDT) Pathologist [facility] eGFR >90 >=60 mL/min/1. 73 m2 Comment: [...] LAB BLOOD ORDERABLES Lila dawson [facility] [place] [address] * (ABNORMAL) Differential, auto (09/02/2024 12:41 AM CDT) Pathologist [facility] Neutrophil abs 4.18 1.50 - 6.50 K/cumm Imm gran abs 0.05 0.00 - 0.10 K/cumm [facility] Lymphocyte abs 0.41(L) 0.80 - 3.30 K/cumm [facility] Monocyte abs 0.83(H) 0.20 - 0.80 K/cumm [facility] Eosinophil abs 0.08 0.00 - 0.50 K/cumm [facility] Basophil abs 0.03 0.00 - 0.10 K/cumm [facility] Neutrophil pct 75.0 % [facility] Comment: Interpretive Data Percent cell count reference ranges are not reported, since discordance with absolute values may lead to misinterpretation of CBC data. Current Interpretive Data was last revised on 2017. Imm gran pct 0.9 % [facility] Comment: Interpretive Data Percent cell count reference ranges are not reported, since discordance with absolute values may lead to misinterpretation of CBC data. Current Interpretive Data was last revised on 2017. Lymphocyte pct 7.3 % [facility] Comment: Interpretive Data Percent cell count reference ranges are not reported, since discordance with absolute values may lead to misinterpretation of CBC data. Current Interpretive Data was last revised on 2017. Monocyte pct 14.9 % [facility] Comment: Interpretive Data Percent cell count reference ranges are not reported, since discordance with absolute values may lead to misinterpretation of CBC data. Current Interpretive Data was last revised on 2017. Eosinophil pct 1.4 % [facility] Comment: Interpretive Data Percent cell count reference ranges are not reported, since discordance with absolute values may lead to misinterpretation of CBC data. Current Interpretive Data was last revised on 2017. Basophil pct 0.5 % [facility] Comment: Interpretive Data Percent cell count reference ranges are not reported, since discordance with absolute values may lead to misinterpretation of CBC data. Current Interpretive Data was last revised on 2017. Blood 09/02/2024 12:4 1 AM CDT 09/02/2024 1:02 AM CDT us Smith Sawyer MD LAB BLOOD ORDERABLES Lila dawson Result [facility] [place] [address] * (ABNORMAL) CBC with auto differential (09/02/2024 12:41 AM CDT) WBC 5.58 3.80 - 9.90 K/cumm Hgb 9.9(L) 13.0 - 17.5 g/dL [facility] Hct 28.6(L) 38.9 - 50.3 % [facility] Plt 111(L) 150 - 400 K/cumm [facility] MPV 11.2 9.1 - 12.3 fL [facility] RBC 2.67(L) 4.30 - 5.80 M/cumm [facility] MCV 107.1(H) 81.3 - 96.4 fL [facility] MCH 37.1(H) 27.1 - 33.3 pg [facility] MCHC 34.6 32.3 - 35.7 g/dL [facility] RDW CV 20.9(H) 11.1 - 14.9 % [facility] RDW SD 80.1(H) 35.7 - 48.1 fL [facility] NRBC abs 0.00 0.00 - 0.01 K/cumm [facility] Blood 09/02/2024 12:4 1 AM CDT 09/02/2024 1:02 AM CDT us Smith Sawyer MD LAB BLOOD ORDERABLES Lila dawson Result [facility] [place] [address] * (ABNORMAL) Protime-INR (09/02/2024 12:41 AM CDT) PT 18.5(H) 9.7 - 13.0 sec INR 1.69(H) 0.90 - 1.20 [facility] Comment: Interpretive data Oral anticoagulant [...] ORDERABLES Lila l Result Performing Organization Address City/[facility]/ZIP Co de Phone Number [facility] [place] [address] * Phosphorus (09/02/2024 12:41 AM CDT) Pathologist [facility] Phosphorus, pl 2.4 2.3 - 4.5 mg/dL Blood 09/02/2024 12:4 1 AM CDT 09/02/2024 1:02 AM CDT us Smith Sawyer MD LAB BLOOD ORDERABLES Lila l Result Performing Organization Address [facility] Co de Phone Number [facility] [place] [address] * Magnesium (09/02/2024 12:41 AM CDT) [facility] Magnesium 2.0 1.4 - 2.5 mg/dL Blood 09/02/2024 12:4 1 AM CDT 09/02/2024 1:02 AM CDT Zuleima Levine MD LAB BLOOD ORDERABLES Lila l Result Performing Organization Address [facility] Co de Phone Number [facility] [place] [address] * (ABNORMAL) Comprehensive metabolic panel (09/02/2024 12:41 AM CDT) Pathologist [facility] Sodium 140 135 - 145 mmol/L Potassium, pl 3.7 3.3 - 4.9 mmol/L [facility] Chloride 105 97 - 110 mmol/L [facility] CO2 23 22 - 32 mmol/L [facility] Anion gap 12 2 - 15 mmol/L [facility] BUN 14 6 - 25 mg/dL [facility] Creatinine 0.83 0.80 - 1.30 mg/dL [facility] Glucose 106 70 - 199 mg/dL [facility] Comment: Interpretive Data Fasting glucose [...] 2022. Calcium 7.8(L) 8.5 - 10.3 mg/dL [facility] Bilirubin, total 0.6 0.1 - 1.2 mg/dL [facility] Protein, pl 5.1(L) 6.5 - 8.5 g/dL [facility] Albumin 2.9(L) 3.5 - 5.0 g/dL [facility] Alk phos 92 40 - 130 Units/L [facility] ALT 23 7 - 55 Units/L [facility] AST 46 10 - 50 Units/L [facility] Blood 09/02/2024 12:4 1 AM CDT 09/02/2024 1:02 AM CDT us Smith Sawyer MD LAB BLOOD ORDERABLES Lila l Result Performing Organization Address City/State/[facility] Co de Phone Number [facility] [place] [address] * US Vein Duplex Upper Extremity Left Limited, Unilateral (09/01/2024 2:27 PM CDT) Anatomical Region Laterality Modality Vascular Left Ultrasound 09/01/2024 1:18 PM CDT Narrative 09/01/2024 6:11 PM CDT [facility] - Department of Vascular Surgery, Vascular Laboratory [address] [place] [address] Upper Extremity Venous Ultrasound Report Patient Name: SULMA BAZAN : 1950 (74y 1m) Study Date: 09/01/2024 1:18:26 PM Gender: M Tech: Location: [id number] Ref Provider: ZULEIMA LEVINE Quality: Adequate Order Provider: ZULEIMA LEVINE PROCEDURES: Vascular Report: Venous Duplex imaging was performed in the left upper extremity. The internal jugular, subclavian and axillary veins were evaluated for patency, spontaneity and phasicity with Doppler, compression and augmentation maneuvers. The brachial, basilic and cephalic veins were also evaluated with compression maneuvers. INDICATIONS: Hypoxemia. FINDINGS: Performing Memory Care Program Resident: Mei Linn RVT. Left: Venous Doppler signals [...] Procedure Note Maikel Gupta MD - 09/01/2024 [facility] - Department of Vascular Surgery,Vascular Laboratory [address] [place] [address] Upper Extremity Venous Ultrasound Report Patient Name: SULMA BAZAN : 1950 (74y 1m) Study Date: 09/01/2024 1:18:26 PM Gender: M Tech: Location: [id number] Ref Provider: ZULEIMA LEVINE Quality: Adequate Order Provider: ZULEIMA LEVINE PROCEDURES: Vascular Report: Venous Duplex imaging was performed in the left upper extremity. Theinternal jugular, subclavian and axillary veins were evaluated for patency, spontaneity andphasicity with Doppler, compression and augmentation maneuvers. The brachial, basilic andcephalic veins were also evaluated with compression maneuvers. INDICATIONS: Hypoxemia. FINDINGS: Performing Memory Care Program Resident: Mei Linn RVT. Left: Venous Doppler signals [...] above. Electronically Signed By: Maikel Gupta MD [facility] 09/01/2024 5:21:16 PM CDT us Zuleima Levine [...] MD LAB BLOOD ORDERABLES Lila dawson Result [facility] [place] [address] * (ABNORMAL) Differential, auto (09/01/2024 3:21 AM CDT) Neutrophil abs 3.01 1.50 - 6.50 K/cumm Imm gran abs 0.04 0.00 - 0.10 K/cumm [facility] Lymphocyte abs 0.35(L) 0.80 - 3.30 K/cumm [facility] Monocyte abs 0.67 0.20 - 0.80 K/cumm [facility] Eosinophil abs 0.06 0.00 - 0.50 K/cumm [facility] Basophil abs 0.01 0.00 - 0.10 K/cumm [facility] Neutrophil pct 72.7 % [facility] Comment: Interpretive Data Percent cell count reference ranges are not reported, since discordance with absolute values may lead to misinterpretation of CBC data. Current Interpretive Data was last revised on 2017. Imm gran pct 1.0 % [facility] Comment: Interpretive Data Percent cell count reference ranges are not reported, since discordance with absolute values may lead to misinterpretation of CBC data. Current Interpretive Data was last revised on 2017. Lymphocyte pct 8.5 % [facility] Comment: Interpretive Data Percent cell count reference ranges are not reported, since discordance with absolute values may lead to misinterpretation of CBC data. Current Interpretive Data was last revised on 2017. Monocyte pct 16.2 % [facility] Comment: Interpretive Data Percent cell count reference ranges are not reported, since discordance with absolute values may lead to misinterpretation of CBC data. Current Interpretive Data was last revised on 2017. Eosinophil pct 1.4 % [facility] Comment: Interpretive Data Percent cell count reference ranges are not reported, since discordance with absolute values may lead to misinterpretation of CBC data. Current Interpretive Data was last revised on 2017. Basophil pct 0.2 % [facility] Comment: Interpretive Data Percent cell count reference ranges are not reported, since discordance with absolute values may lead to misinterpretation of CBC data. Current Interpretive Data was last revised on 2017. Blood 09/01/2024 3:21 AM CDT 09/01/2024 3:38 AM CDT us Smith Sawyer MD LAB BLOOD ORDERABLES Lila l Result [facility] [place] [address] * (ABNORMAL) CBC with auto differential (09/01/2024 3:21 AM CDT) WBC 4.14 3.80 - 9.90 K/cumm Hgb 9.0(L) 13.0 - 17.5 g/dL [facility] Hct 26.2(L) 38.9 - 50.3 % [facility] Plt 86(L) 150 - 400 K/cumm [facility] MPV 11.2 9.1 - 12.3 fL [facility] RBC 2.45(L) 4.30 - 5.80 M/cumm [facility] MCV 106.9(H) 81.3 - 96.4 fL [facility] MCH 36.7(H) 27.1 - 33.3 pg [facility] MCHC 34.4 32.3 - 35.7 g/dL [facility] RDW CV 21.0(H) 11.1 - 14.9 % [facility] RDW SD 80.0(H) 35.7 - 48.1 fL [facility] NRBC abs 0.00 0.00 - 0.01 K/cumm [facility] Blood 09/01/2024 3:21 AM CDT 09/01/2024 3:38 AM CDT Smith Sawyer MD LAB BLOOD ORDERABLES Lila l Result Performing Organization Address City/[facility] [place] [address] * (ABNORMAL) Protime-INR (09/01/2024 3:21 AM CDT) PT 20.0(H) 9.7 - 13.0 sec INR 1.83(H) 0.90 - 1.20 [facility] Comment: Interpretive data Oral anticoagulant [...] ORDERABLES Lila l Result Performing Organization Address [facility] [place] [address] * Phosphorus (09/01/2024 3:21 AM CDT) Phosphorus, pl 2.8 2.3 - 4.5 mg/dL Blood 09/01/2024 3:21 AM CDT 09/01/2024 3:37 AM CDT Smith Sawyer MD LAB BLOOD ORDERABLES Lila l Result Performing Organization Address City/[facility] [place] [address] * Magnesium (09/01/2024 3:21 AM CDT) Magnesium 1.5 1.4 - 2.5 mg/dL Blood 09/01/2024 3:21 AM CDT 09/01/2024 3:37 AM CDT Zuleima Levine MD LAB BLOOD ORDERABLES Lila dawson Result [facility] [place] [address] * (ABNORMAL) Comprehensive metabolic panel (09/01/2024 3:21 AM CDT) Pathologist [facility] Sodium 143 135 - 145 mmol/L Potassium, pl 3.2(L) 3.3 - 4.9 mmol/L [facility] Chloride 108 97 - 110 mmol/L [facility] CO2 28 22 - 32 mmol/L [facility] Anion gap 7 2 - 15 mmol/L [facility] BUN 15 6 - 25 mg/dL [facility] Creatinine 0.95 0.80 - 1.30 mg/dL [facility] Glucose 123 70 - 199 mg/dL [facility] Comment: Interpretive Data Fasting glucose [...] 2022. Calcium 7.8(L) 8.5 - 10.3 mg/dL [facility] Bilirubin, total 0.6 0.1 - 1.2 mg/dL [facility] Protein, pl 4.7(L) 6.5 - 8.5 g/dL [facility] Albumin 2.3(L) 3.5 - 5.0 g/dL [facility] Alk phos 84 40 - 130 Units/L [facility] ALT 21 7 - 55 Units/L [facility] AST 44 10 - 50 Units/L [facility] Blood 09/01/2024 3:21 AM CDT 09/01/2024 3:37 AM CDT us Smith Sawyer MD LAB BLOOD ORDERABLES Lila dawson Result [facility] [place] [address] * XR Chest 1 View (08/31/2024 10:37 [...] 08/31/2024 11:47 AM CDT Narrative PATHOLOGY [facility] - 09/02/2024 10:06 AM CDT EPIC results best viewed via link to PDF [facility] Mart[facility]nez Laboratory of [place] [address] Note to Patients: This report may contain [...] Gender: M : 1950 (Age: 74) Address: [address] [place] [address] Hospital #: [id number] Taken:08/31/2024 Received:08/31/2024 Reported: 09/02/2024 Patient Type: [facility] Inpatient Service: Oncology Location: [place] [address] Physician(s): MD Gilberto Melgar M.D. Shivani Shah [...] Yamil DA. 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 Am J Surg Pathol. 2022Feb 03;47(10):9327-6381. doi: 10.1097/PAS.[id number]. Epub 2022Nov 29. PMID: [id number]. Shahla Lam D.O. History: The patient is [...] in aggregate). Filtered. Labeled A1. Jar 0. 08/31/2024 18:01 PA(s): Sofia Conklin, MS, PA ([facility])CM By this signature, I attest that the above diagnosis is based upon my personal examination of the slides(and/or other material). Addenda/Procedures The performance characteristics of some immunohistochemical stains, fluorescence in-situ hybridization tests and immunophenotyping by flow cytometry cited in this report (if any) were determined by the Surgical Pathology and Flow Cytometry Departments at [facility] as part of an ongoing quality assurance lab technician program and in compliance with federally mandated [...] Surgical Pathology and Flow Cytometry Departments of [facility]. It has not been cleared or approved by the U. S. Food and Drug Administration. IMAGES AND SCANNED DOCUMENTS, IF INCLUDED, ONLY VIEWABLE IN PDF VERSION OF REPORT Abram Smith MD LAB PATHOLOGY ORDERABLES Final Result PATHOLOGY [facility] 3rd Floor [place], [place] [phone] * Flexible Sigmoidoscopy (08/31/2024 11:26 AM CDT) Anatomical Region Laterality Modality Other Narrative Procedure Note Abram Smith MD - 08/31/2024 11:26 AM CDT [facility] Patient Name: Sulma Bazan Procedure Date: 08/31/2024 11:26 AM Date of : 1950 Admit Type: Inpatient Age: 74 Gender: Male Attending MD: Abram Smith M.D. Room: [facility] ENDOSCOPY Note Status: Finalized Procedure: Flexible Sigmoidoscopy [...] were discussed and informed consentwas obtained. The [id number] Endoscope was introduced through the anus [...] ORDERABLES Lila l Result Performing Organization Address City/[facility] Co de Phone Number [facility] [place] [address] * eGFR (08/31/2024 2:34 AM CDT) eGFR [...] ORDERABLES Lila l Result Performing Organization Address City/[facility]/ZIP Co de Phone Number [facility] [place] [address] * (ABNORMAL) Differential, auto (08/31/2024 2:34 AM CDT) Pathologist [facility] Neutrophil abs 3.45 1.50 - 6.50 K/cumm Imm gran abs 0.05 0.00 - 0.10 K/cumm [facility] Lymphocyte abs 0.39(L) 0.80 - 3.30 K/cumm [facility] Monocyte abs 0.72 0.20 - 0.80 K/cumm [facility] Eosinophil abs 0.07 0.00 - 0.50 K/cumm [facility] Basophil abs 0.01 0.00 - 0.10 K/cumm [facility] Neutrophil pct 73.5 % [facility] Comment: Interpretive Data Percent cell count reference ranges are not reported, since discordance with absolute values may lead to misinterpretation of CBC data. Current Interpretive Data was last revised on 2017. Imm gran pct 1.1 % [facility] Comment: Interpretive Data Percent cell count reference ranges are not reported, since discordance with absolute values may lead to misinterpretation of CBC data. Current Interpretive Data was last revised on 2017. Lymphocyte pct 8.3 % [facility] Comment: Interpretive Data Percent cell count reference ranges are not reported, since discordance with absolute values may lead to misinterpretation of CBC data. Current Interpretive Data was last revised on 2017. Monocyte pct 15.4 % [facility] Comment: Interpretive Data Percent cell count reference ranges are not reported, since discordance with absolute values may lead to misinterpretation of CBC data. Current Interpretive Data was last revised on 2017. Eosinophil pct 1.5 % [facility] Comment: Interpretive Data Percent cell count reference ranges are not reported, since discordance with absolute values may lead to misinterpretation of CBC data. Current Interpretive Data was last revised on 2017. Basophil pct 0.2 % [facility] Comment: Interpretive Data Percent cell count reference ranges are not reported, since discordance with absolute values may lead to misinterpretation of CBC data. Current Interpretive Data was last revised on 2017. Blood 08/31/2024 2:34 AM CDT 08/31/2024 3:12 AM CDT us Smith Sawyer MD LAB BLOOD ORDERABLES Lila dawson Result [facility] [place] [address] * (ABNORMAL) CBC with auto differential (08/31/2024 2:34 AM CDT) Pathologist [facility] WBC 4.69 3.80 - 9.90 K/cumm Hgb 8.9(L) 13.0 - 17.5 g/dL [facility] Hct 25.5(L) 38.9 - 50.3 % [facility] Plt 90(L) 150 - 400 K/cumm [facility] MPV 10.6 9.1 - 12.3 fL [facility] RBC 2.38(L) 4.30 - 5.80 M/cumm [facility] MCV 107.1(H) 81.3 - 96.4 fL [facility] MCH 37.4(H) 27.1 - 33.3 pg [facility] MCHC 34.9 32.3 - 35.7 g/dL [facility] RDW CV 21.1(H) 11.1 - 14.9 % [facility] RDW SD 79.6(H) 35.7 - 48.1 fL [facility] NRBC abs 0.00 0.00 - 0.01 K/cumm [facility] Blood 08/31/2024 2:34 AM CDT 08/31/2024 3:12 AM CDT us Smith Sawyer MD LAB BLOOD ORDERABLES Lila l Result [facility] [place] [address] * aPTT (08/31/2024 2:34 AM CDT) Pathologist [facility] aPTT 30 28 - 38 sec Comment: Interpretive Data Heparin therapeutic range: 66.0 - 100.0 seconds. Range based on correlation with therapeutic heparin activity range of 0.3 - 0.7 Units/mL. Current interpretive data was last revised on 2023. Blood 08/31/2024 2:34 AM CDT 08/31/2024 3:04 AM CDT Smith Sawyer MD LAB BLOOD ORDERABLES Lila l Result Performing Organization Address [facility] Co de Phone Number [facility] [place] [address] * (ABNORMAL) Protime-INR (08/31/2024 2:34 AM CDT) PT 18.8(H) 9.7 - 13.0 sec INR 1.72(H) 0.90 - 1.20 [facility] Comment: Interpretive data Oral anticoagulant [...] ORDERABLES Lila l Result Performing Organization Address [facility] [place] [address] * Type and screen (08/31/2024 2:34 AM CDT) ABO Rh A Positive Minna, indirect Negative [facility] Blood 08/31/2024 2:34 AM CDT 08/31/2024 3:06 AM CDT Narrative [facility] - 08/31/2024 7:31 AM CDT Has the patient had Daratumumab or Isatuximab in the past 6 months?->Unknown Smith Sawyer MD LAB BLOOD BANK TEST ORDER DEMETRIO Final Result Performing Organization Address [facility] Co de Phone Number [facility] [place] [address] * Uric acid (08/31/2024 2:34 AM CDT) Pathologist [facility] Uric acid 6.6 3.0 - 8.0 mg/dL Blood 08/31/2024 2:34 AM CDT 08/31/2024 3:12 AM CDT Narrative [facility] - 08/31/2024 3:42 AM CDT Saturday and only. Morning draw. . Smith Sawyer MD LAB BLOOD ORDERABLES Lila l Result Performing Organization Address City/State/[facility] Co de Phone Number [facility] [place] [place] [address] * (ABNORMAL) Phosphorus (08/31/2024 2:34 AM CDT) [facility] Phosphorus, pl 1.9(L) 2.3 - 4.5 mg/dL Blood 08/31/2024 2:34 AM CDT 08/31/2024 3:12 AM CDT Smith Sawyer MD LAB BLOOD ORDERABLES Lila l Result Performing Organization Address [facility] Co de Phone Number [facility] [place] [address] * (ABNORMAL) Lactate dehydrogenase (LD) (08/31/2024 2:34 AM CDT) [facility] Lactate dehydrogenase (LDH) 301(H) 100 - 250 Units/L Blood 08/31/2024 2:34 AM CDT 08/31/2024 3:12 AM CDT Narrative [facility] - 08/31/2024 3:42 AM CDT Saturday and only. Morning draw. Smith Sawyer MD LAB BLOOD ORDERABLES Lila l Result Performing Organization Address City/[facility] Co de Phone Number [facility] [place] [address] * (ABNORMAL) Comprehensive metabolic panel (08/31/2024 2:34 AM CDT) Sodium 139 135 - 145 mmol/L Potassium, pl 3.2(L) 3.3 - 4.9 mmol/L [facility] Chloride 107 97 - 110 mmol/L [facility] CO2 25 22 - 32 mmol/L [facility] Anion gap 7 2 - 15 mmol/L [facility] BUN 20 6 - 25 mg/dL [facility] Creatinine 0.92 0.80 - 1.30 mg/dL [facility] Glucose 113 70 - 199 mg/dL [facility] Comment: Interpretive Data Fasting glucose [...] 2022. Calcium 8.0(L) 8.5 - 10.3 mg/dL [facility] Bilirubin, total 0.5 0.1 - 1.2 mg/dL [facility] Protein, pl 4.8(L) 6.5 - 8.5 g/dL [facility] Albumin 2.6(L) 3.5 - 5.0 g/dL [facility] Alk phos 82 40 - 130 Units/L [facility] ALT 23 7 - 55 Units/L [facility] AST 48 10 - 50 Units/L [facility] Blood 08/31/2024 2:34 AM CDT 08/31/2024 3:12 AM CDT us Smith Sawyer MD LAB BLOOD ORDERABLES Lila eunice Result [facility] [place] [address] * (ABNORMAL) Protime-INR (08/30/2024 4:30 AM CDT) PT 20.1(H) 9.7 - 13.0 sec INR 1.84(H) 0.90 - 1.20 [facility] Comment: Interpretive data Oral anticoagulant therapeutic ranges: Venous thromboembolism prophylaxis or treatment: 2.0-3.0 CARDIOLOGY Standard range: 2.0-3.0 High-intensity range: 2.5-3.5 Refer to indication-specific guidelines for appropriate target ranges for prosthetic heart valve replacement. Current interpretive data was last revised on 2019. Blood 08/30/2024 4:30 AM CDT 08/30/2024 2:53 AM CDT Zuleima [place] MD LAB BLOOD ORDERABLES Lila l Result [facility] [place] [address] * eGFR (08/30/2024 2:34 AM CDT) eGFR [...] MD LAB BLOOD ORDERABLES Lila dawson Result [facility] [place] [address] * (ABNORMAL) Differential, auto (08/30/2024 2:34 AM CDT) Pathologist [facility] Neutrophil abs 3.58 1.50 - 6.50 K/cumm Imm gran abs 0.06 0.00 - 0.10 K/cumm [facility] Lymphocyte abs 0.20(L) 0.80 - 3.30 K/cumm [facility] Monocyte abs 0.72 0.20 - 0.80 K/cumm [facility] Eosinophil abs 0.08 0.00 - 0.50 K/cumm [facility] Basophil abs 0.01 0.00 - 0.10 K/cumm [facility] Neutrophil pct 77.0 % [facility] Comment: Interpretive Data Percent cell count reference ranges are not reported, since discordance with absolute values may lead to misinterpretation of CBC data. Current Interpretive Data was last revised on 2017. Imm gran pct 1.3 % [facility] Comment: Interpretive Data Percent cell count reference ranges are not reported, since discordance with absolute values may lead to misinterpretation of CBC data. Current Interpretive Data was last revised on 2017. Lymphocyte pct 4.3 % [facility] Comment: Interpretive Data Percent cell count reference ranges are not reported, since discordance with absolute values may lead to misinterpretation of CBC data. Current Interpretive Data was last revised on 2017. Monocyte pct 15.5 % [facility] Comment: Interpretive Data Percent cell count reference ranges are not reported, since discordance with absolute values may lead to misinterpretation of CBC data. Current Interpretive Data was last revised on 2017. Eosinophil pct 1.7 % [facility] Comment: Interpretive Data Percent cell count reference ranges are not reported, since discordance with absolute values may lead to misinterpretation of CBC data. Current Interpretive Data was last revised on 2017. Basophil pct 0.2 % [facility] Comment: Interpretive Data Percent cell count reference ranges are not reported, since discordance with absolute values may lead to misinterpretation of CBC data. Current Interpretive Data was last revised on 2017. Blood 08/30/2024 2:34 AM CDT 08/30/2024 2:56 AM CDT Smith Sawyer MD LAB BLOOD ORDERABLES Lila dawson Result [facility] [place] [address] * (ABNORMAL) CBC with auto differential (08/30/2024 2:34 AM CDT) WBC 4.65 3.80 - 9.90 K/cumm Hgb 8.5(L) 13.0 - 17.5 g/dL [facility] Hct 24.7(L) 38.9 - 50.3 % [facility] Plt 86(L) 150 - 400 K/cumm [facility] MPV 10.4 9.1 - 12.3 fL [facility] RBC 2.28(L) 4.30 - 5.80 M/cumm [facility] MCV 108.3(H) 81.3 - 96.4 fL [facility] MCH 37.3(H) 27.1 - 33.3 pg [facility] MCHC 34.4 32.3 - 35.7 g/dL [facility] RDW CV 21.0(H) 11.1 - 14.9 % [facility] RDW SD 81.8(H) 35.7 - 48.1 fL [facility] NRBC abs 0.02(H) 0.00 - 0.01 K/cumm [facility] Blood 08/30/2024 2:34 AM CDT 08/30/2024 2:56 AM CDT Smith Sawyer MD LAB BLOOD ORDERABLES Lila l Result Performing Organization Address City/[facility]/ZIP Co de Phone Number [facility] [place] [address] * Phosphorus (08/30/2024 2:34 AM CDT) [facility] Phosphorus, pl 2.7 2.3 - 4.5 mg/dL Blood 08/30/2024 2:34 AM CDT 08/30/2024 2:56 AM CDT Smith Sawyer MD LAB BLOOD ORDERABLES Lila l Result Performing Organization Address [facility] Co de Phone Number [facility] [place] [address] * Magnesium (08/30/2024 2:34 AM CDT) [facility] Magnesium 1.8 1.4 - 2.5 mg/dL Blood 08/30/2024 2:34 AM CDT 08/30/2024 2:56 AM CDT Zuleima Levine MD LAB BLOOD ORDERABLES Lila l Result Performing Organization Address [facility] Co de Phone Number [facility] [place] [address] * (ABNORMAL) Comprehensive metabolic panel (08/30/2024 2:34 AM CDT) [facility] Sodium 141 135 - 145 mmol/L Potassium, pl 3.4 3.3 - 4.9 mmol/L [facility] Chloride 109 97 - 110 mmol/L [facility] CO2 23 22 - 32 mmol/L [facility] Anion gap 9 2 - 15 mmol/L [facility] BUN 24 6 - 25 mg/dL [facility] Creatinine 1.00 0.80 - 1.30 mg/dL [facility] Glucose 105 70 - 199 mg/dL [facility] Comment: Interpretive Data Fasting glucose [...] Calcium 8.0(L) 8.5 - 10.3 mg/dL [facility] Bilirubin, total 0.4 0.1 - 1.2 mg/dL [facility] Protein, pl 4.8(L) 6.5 - 8.5 g/dL [facility] Albumin 3.1(L) 3.5 - 5.0 g/dL [facility] Alk phos 69 40 - 130 Units/L [facility] ALT 25 7 - 55 Units/L [facility] AST 47 10 - 50 Units/L [facility] Blood 08/30/2024 2:34 AM CDT 08/30/2024 2:56 AM CDT Smith Sawyer MD LAB BLOOD ORDERABLES Lila dawson Result [facility] [place] [address] * eGFR (08/29/2024 1:30 AM CDT) eGFR [...] MD LAB BLOOD ORDERABLES Lila dawson Result [facility] [place] [address] * (ABNORMAL) Differential, auto (08/29/2024 1:30 AM CDT) Neutrophil abs 3.07 1.50 - 6.50 K/cumm Imm gran abs 0.07 0.00 - 0.10 K/cumm [facility] Lymphocyte abs 0.29(L) 0.80 - 3.30 K/cumm [facility] Monocyte abs 0.91(H) 0.20 - 0.80 K/cumm [facility] Eosinophil abs 0.05 0.00 - 0.50 K/cumm [facility] Basophil abs 0.02 0.00 - 0.10 K/cumm [facility] Neutrophil pct 69.6 % [facility] Comment: Interpretive Data Percent cell count reference ranges are not reported, since discordance with absolute values may lead to misinterpretation of CBC data. Current Interpretive Data was last revised on 2017. Imm gran pct 1.6 % [facility] Comment: Interpretive Data Percent cell count reference ranges are not reported, since discordance with absolute values may lead to misinterpretation of CBC data. Current Interpretive Data was last revised on 2017. Lymphocyte pct 6.6 % [facility] Comment: Interpretive Data Percent cell count reference ranges are not reported, since discordance with absolute values may lead to misinterpretation of CBC data. Current Interpretive Data was last revised on 2017. Monocyte pct 20.6 % [facility] Comment: Interpretive Data Percent cell count reference ranges are not reported, since discordance with absolute values may lead to misinterpretation of CBC data. Current Interpretive Data was last revised on 2017. Eosinophil pct 1.1 % [facility] Comment: Interpretive Data Percent cell count reference ranges are not reported, since discordance with absolute values may lead to misinterpretation of CBC data. Current Interpretive Data was last revised on 2017. Basophil pct 0.5 % [facility] Comment: Interpretive Data Percent cell count reference ranges are not reported, since discordance with absolute values may lead to misinterpretation of CBC data. Current Interpretive Data was last revised on 2017. Blood 08/29/2024 1:30 AM CDT 08/29/2024 1:42 AM CDT Smith Sawyer MD LAB BLOOD ORDERABLES Lila dawson Result [facility] [place] [address] * (ABNORMAL) CBC with auto differential (08/29/2024 1:30 AM CDT) WBC 4.41 3.80 - 9.90 K/cumm Hgb 8.9(L) 13.0 - 17.5 g/dL [facility] Hct 26.7(L) 38.9 - 50.3 % [facility] Plt 112(L) 150 - 400 K/cumm [facility] MPV 10.4 9.1 - 12.3 fL [facility] RBC 2.45(L) 4.30 - 5.80 M/cumm [facility] MCV 109.0(H) 81.3 - 96.4 fL [facility] MCH 36.3(H) 27.1 - 33.3 pg [facility] MCHC 33.3 32.3 - 35.7 g/dL [facility] RDW CV 21.4(H) 11.1 - 14.9 % [facility] RDW SD 83.0(H) 35.7 - 48.1 fL [facility] NRBC abs 0.00 0.00 - 0.01 K/cumm [facility] Blood 08/29/2024 1:30 AM CDT 08/29/2024 1:42 AM CDT Smith Sawyer MD LAB BLOOD ORDERABLES Lila l Result Performing Organization Address [facility] de Phone Number [facility] [place] [address] * (ABNORMAL) Protime-INR (08/29/2024 1:30 AM CDT) PT 28.4(H) 9.7 - 13.0 sec INR 2.58(H) 0.90 - 1.20 [facility] Comment: Interpretive data Oral anticoagulant [...] ORDERABLES Lila l Result Performing Organization Address [facility] de Phone Number [facility] [place] [address] * Phosphorus (08/29/2024 1:30 AM CDT) Phosphorus, pl 2.4 2.3 - 4.5 mg/dL Blood 08/29/2024 1:30 AM CDT 08/29/2024 1:42 AM CDT Smith Sawyer MD LAB BLOOD ORDERABLES Lila l Result Performing Organization Address [facility]/ZIP Co de Phone Number [facility] [place] [address] * (ABNORMAL) Comprehensive metabolic panel (08/29/2024 1:30 AM CDT) Sodium 142 135 - 145 mmol/L Potassium, pl 3.8 3.3 - 4.9 mmol/L [facility] Chloride 110 97 - 110 mmol/L [facility] CO2 19(L) 22 - 32 mmol/L [facility] Anion gap 13 2 - 15 mmol/L [facility] BUN 28(H) 6 - 25 mg/dL [facility] Creatinine 1.10 0.80 - 1.30 mg/dL [facility] Glucose 108 70 - 199 mg/dL [facility] Comment: Interpretive Data Fasting glucose [...] 2022. Calcium 8.1(L) 8.5 - 10.3 mg/dL [facility] Bilirubin, total 0.5 0.1 - 1.2 mg/dL [facility] Protein, pl 5.3(L) 6.5 - 8.5 g/dL [facility] Albumin 3.3(L) 3.5 - 5.0 g/dL [facility] Alk phos 72 40 - 130 Units/L [facility] ALT 27 7 - 55 Units/L [facility] AST 53(H) 10 - 50 Units/L [facility] Blood 08/29/2024 1:30 AM CDT 08/29/2024 1:42 AM CDT us Smith Sawyer MD LAB BLOOD ORDERABLES Lila dawson Result [facility] [place] [address] * Transfuse plasma Standard plasma (08/28/2024 2:39 PM CDT) Blood Zuleima Levine MD BLOOD TRANSFUSION ORDERAB LES Edited Result - Final Performing Organization Address [facility] Co de Phone Number [facility] [place] [address] * (ABNORMAL) Protime-INR (08/28/2024 2:30 PM CDT) PT 24.1(H) 9.7 - 13.0 sec INR 2.20(H) 0.90 - 1.20 [facility] Comment: Interpretive data Oral anticoagulant therapeutic ranges: Venous thromboembolism prophylaxis or treatment: 2.0-3.0 CARDIOLOGY Standard range: 2.0-3.0 High-intensity range: 2.5-3.5 Refer to indication-specific guidelines for appropriate target ranges for prosthetic heart valve replacement. Current interpretive data was last revised on 2019. Blood 08/28/2024 2:30 PM CDT 08/28/2024 2:58 PM CDT Narrative [facility] - 08/28/2024 3:26 PM CDT 1 hour after transfusion of Plasma completed. Zuleima Levine MD LAB BLOOD ORDERABLES Lila l Result Performing Organization Address [facility] Co de Phone Number [facility] [place] [address] * Transfuse plasma Standard plasma (08/28/2024 12:29 PM CDT) Blood Zuleima Levine MD BLOOD TRANSFUSION ORDERAB LES Final Result Performing Organization Address City/[facility]/ZIP Co de Phone Number [facility] [place] [address] * Prepare plasma: 2 Units Standard plasma (08/28/2024 10:04 AM CDT) Product code [id number] Unit Number [id number] [facility] Product Blood Type APOS [facility] Dispense Status PRESUMED TRANSFUSED [facility] Product code [id number] [facility] Unit Number [id number] [facility] Product Blood Type APOS [facility] Dispense Status PRESUMED TRANSFUSED [facility] Blood Venous blood specimen / Unknown 08/28/2024 10:04 AM CDT 08/28/2024 10:04 AM CDT Narrative [facility] - 08/29/2024 12:40 PM CDT Is this plasma order intended for a COVID-19 patient as convalescent plasma?->Standard plasma Special Requirements Needed?->No Date required:-[id number] FFP # of Units:-2-Units Reasons:-Urgent invasive procedure, INR us Zuleima Levine MD BLOOD BANK PRODUCT ORDERA BLES Final Result Performing Organization Address City/[facility]/ZIP Co de Phone Number [facility] [place] [address] * Potassium, whole blood (08/28/2024 9:19 AM CDT) [facility] Potassium, bld 3.4 3.3 - 4.9 mmol/L Blood 08/28/2024 9:19 AM CDT 08/28/2024 9:28 AM CDT Zuleima Levine MD LAB BLOOD ORDERABLES Lila l Result [facility] [place] [address] * (ABNORMAL) Protime-INR (08/28/2024 9:19 AM CDT) PT 27.4(H) 9.7 - 13.0 sec INR 2.49(H) 0.90 - 1.20 [facility] Comment: Interpretive data Oral anticoagulant [...] ORDERABLES Lila l Result Performing Organization Address [facility] Co de Phone Number [facility] Department of Laboratories [place], [place] [address] * Transfuse plasma Standard plasma (08/28/2024 8:41 AM CDT) Blood Zuleima Levine MD BLOOD TRANSFUSION ORDERAB LES Final Result Performing Organization Address [facility]/ZIP Co de Phone Number [facility] [place] [address] * Prepare plasma: 1 Units Standard plasma (08/28/2024 6:40 AM CDT) Pathologist [facility] Product code [id number] Unit Number [id number] [facility] Product Blood Type APOS [facility] Dispense Status PRESUMED TRANSFUSED [facility] Blood Venous blood specimen / Unknown 08/28/2024 6:40 AM CDT 08/28/2024 6:40 AM CDT Narrative [facility] - 08/28/2024 8:00 PM CDT Is this plasma order intended for a COVID-19 patient as convalescent plasma?->Standard plasma Special Requirements Needed?->No Date required:-[id number] FFP # of Units:-1-Units Reasons:-Urgent invasive procedure, INR Zuleima Levine MD BLOOD BANK PRODUCT ORDERA BLES Final Result Performing Organization Address City/[facility]/ZIP Co de Phone Number [facility] [place] [address] * (ABNORMAL) Protime-INR (08/28/2024 6:05 AM CDT) Pathologist [facility] PT 28.5(H) 9.7 - 13.0 sec INR 2.59(H) 0.90 - 1.20 [facility] Comment: Interpretive data Oral anticoagulant therapeutic ranges: Venous thromboembolism prophylaxis or treatment: 2.0-3.0 CARDIOLOGY Standard range: 2.0-3.0 High-intensity range: 2.5-3.5 Refer to indication-specific guidelines for appropriate target ranges for prosthetic heart valve replacement. Current interpretive data was last revised on 2019. Blood 08/28/2024 6:05 AM CDT 08/28/2024 6:14 AM CDT Donnie Castro MD LAB BLOOD ORDERABLES Final Result Performing Organization Address [facility] Co de Phone Number [facility] [place] [address] * Prepare plasma: 1 Units Standard plasma (08/28/2024 2:12 AM CDT) Pathologist [facility] Product code [id number] Unit Number [id number] [facility] Product Blood Type APOS [facility] Dispense Status PRESUMED TRANSFUSED [facility] Blood Venous blood specimen / Unknown 08/28/2024 2:12 AM CDT 08/28/2024 2:12 AM CDT Narrative [facility] - 08/28/2024 4:01 PM CDT Is this plasma order intended for a COVID-19 patient as convalescent plasma?->Standard plasma Special Requirements Needed?->No Date required:-[id number] FFP # of Units:-1-Units Reasons:-Urgent invasive procedure, INR Zuleima Levine MD BLOOD BANK PRODUCT ORDERA BLES Final Result Performing Organization Address [facility] Co de Phone Number [facility] [place] [address] * eGFR (08/28/2024 1:32 AM CDT) Pathologist [facility] eGFR 78 >=60 mL/min/1. 73 m2 Comment: [...] ORDERABLES Lila l Result Performing Organization Address [facility]/ZIP Co de Phone Number [facility] [place] [address] * (ABNORMAL) Differential, auto (08/28/2024 1:32 AM CDT) [facility] Neutrophil abs 1.95 1.50 - 6.50 K/cumm Imm gran abs 0.04 0.00 - 0.10 K/cumm [facility] Lymphocyte abs 0.19(L) 0.80 - 3.30 K/cumm [facility] Monocyte abs 0.67 0.20 - 0.80 K/cumm [facility] Eosinophil abs 0.14 0.00 - 0.50 K/cumm [facility] Basophil abs 0.00 0.00 - 0.10 K/cumm [facility] Neutrophil pct 65.2 % [facility] Comment: Interpretive Data Percent cell count reference ranges are not reported, since discordance with absolute values may lead to misinterpretation of CBC data. Current Interpretive Data was last revised on 2017. Imm gran pct 1.3 % [facility] Comment: Interpretive Data Percent cell count reference ranges are not reported, since discordance with absolute values may lead to misinterpretation of CBC data. Current Interpretive Data was last revised on 2017. Lymphocyte pct 6.4 % [facility] Comment: Interpretive Data Percent cell count reference ranges are not reported, since discordance with absolute values may lead to misinterpretation of CBC data. Current Interpretive Data was last revised on 2017. Monocyte pct 22.4 % [facility] Comment: Interpretive Data Percent cell count reference ranges are not reported, since discordance with absolute values may lead to misinterpretation of CBC data. Current Interpretive Data was last revised on 2017. Eosinophil pct 4.7 % [facility] Comment: Interpretive Data Percent cell count reference ranges are not reported, since discordance with absolute values may lead to misinterpretation of CBC data. Current Interpretive Data was last revised on 2017. Basophil pct 0.0 % [facility] Comment: Interpretive Data Percent cell count reference ranges are not reported, since discordance with absolute values may lead to misinterpretation of CBC data. Current Interpretive Data was last revised on 2017. Blood 08/28/2024 1:32 AM CDT 08/28/2024 1:48 AM CDT us Smith Sawyer MD LAB BLOOD ORDERABLES Lila dawson Result [facility] [place] [address] * (ABNORMAL) CBC with auto differential (08/28/2024 1:32 AM CDT) [facility] WBC 2.99(L) 3.80 - 9.90 K/cumm Hgb 8.7(L) 13.0 - 17.5 g/dL [facility] Hct 24.8(L) 38.9 - 50.3 % [facility] Plt 91(L) 150 - 400 K/cumm [facility] MPV 10.0 9.1 - 12.3 fL [facility] RBC 2.30(L) 4.30 - 5.80 M/cumm [facility] MCV 107.8(H) 81.3 - 96.4 fL [facility] MCH 37.8(H) 27.1 - 33.3 pg [facility] MCHC 35.1 32.3 - 35.7 g/dL [facility] RDW CV 21.1(H) 11.1 - 14.9 % [facility] RDW SD 79.5(H) 35.7 - 48.1 fL [facility] NRBC abs 0.02(H) 0.00 - 0.01 K/cumm [facility] Blood 08/28/2024 1:32 AM CDT 08/28/2024 1:48 AM CDT us Smith Sawyer MD LAB BLOOD ORDERABLES Lila dawson Result Performing Organization Address City/State/[facility] Co de Phone Number [facility] [place] [address] * (ABNORMAL) Protime-INR (08/28/2024 1:32 AM CDT) [facility] PT 32.7(H) 9.7 - 13.0 sec INR 2.96(H) 0.90 - 1.20 [facility] Comment: Interpretive data Oral anticoagulant [...] ORDERABLES Lila l Result Performing Organization Address City/[facility]/ZIP Co de Phone Number [facility] [place] [address] * Phosphorus (08/28/2024 1:32 AM CDT) Pathologist [facility] Phosphorus, pl 2.9 2.3 - 4.5 mg/dL Blood 08/28/2024 1:32 AM CDT 08/28/2024 1:48 AM CDT Smith Sawyer MD LAB BLOOD ORDERABLES Lila l Result Performing Organization Address [facility] Co de Phone Number [facility] [place] [address] * (ABNORMAL) Comprehensive metabolic panel (08/28/2024 1:32 AM CDT) Sodium 141 135 - 145 mmol/L Potassium, pl 3.0(L) 3.3 - 4.9 mmol/L [facility] Chloride 112(H) 97 - 110 mmol/L [facility] CO2 21(L) 22 - 32 mmol/L [facility] Anion gap 8 2 - 15 mmol/L [facility] BUN 26(H) 6 - 25 mg/dL [facility] Creatinine 1.01 0.80 - 1.30 mg/dL [facility] Glucose 88 70 - 199 mg/dL [facility] Comment: Interpretive Data Fasting glucose [...] Calcium 7.7(L) 8.5 - 10.3 mg/dL [facility] Bilirubin, total 0.5 0.1 - 1.2 mg/dL [facility] Protein, pl 4.4(L) 6.5 - 8.5 g/dL [facility] Albumin 2.7(L) 3.5 - 5.0 g/dL [facility] Alk phos 60 40 - 130 Units/L [facility] ALT 23 7 - 55 Units/L [facility] AST 39 10 - 50 Units/L [facility] Blood 08/28/2024 1:32 AM CDT 08/28/2024 1:48 AM CDT Smith Sawyer MD LAB BLOOD ORDERABLES Lila dawson Result [facility] [place] [address] * Rotavirus antigen Stool (08/27/2024 10:04 AM CDT) Pathologist [facility] Rotavirus Ag Negative Negative Comment: Interpretative Data Testing performed at the [facility] using antigen detection with Xpect Rotavirus lateral flow assay. This test is cleared by the [place] Food and Drug Administration for fresh stool specimens. The performance characteristics have been verified by the [facility]. A negative result does not [...] L ORDERABLES Final Result Performing Organization Address [facility] Co de Phone Number [facility] [place] [address] * eGFR (08/27/2024 12:29 AM CDT) eGFR [...] ORDERABLES Lila l Result Performing Organization Address City/[facility]/ZIP Co de Phone Number [facility] [place] [address] * (ABNORMAL) Differential, auto (08/27/2024 12:29 AM CDT) Pathologist [facility] Neutrophil abs 1.83 1.50 - 6.50 K/cumm Imm gran abs 0.04 0.00 - 0.10 K/cumm [facility] Lymphocyte abs 0.12(L) 0.80 - 3.30 K/cumm [facility] Monocyte abs 0.69 0.20 - 0.80 K/cumm [facility] Eosinophil abs 0.07 0.00 - 0.50 K/cumm [facility] Basophil abs 0.01 0.00 - 0.10 K/cumm [facility] Neutrophil pct 66.4 % [facility] Comment: Interpretive Data Percent cell count reference ranges are not reported, since discordance with absolute values may lead to misinterpretation of CBC data. Current Interpretive Data was last revised on 2017. Imm gran pct 1.4 % [facility] Comment: Interpretive Data Percent cell count reference ranges are not reported, since discordance with absolute values may lead to misinterpretation of CBC data. Current Interpretive Data was last revised on 2017. Lymphocyte pct 4.3 % [facility] Comment: Interpretive Data Percent cell count reference ranges are not reported, since discordance with absolute values may lead to misinterpretation of CBC data. Current Interpretive Data was last revised on 2017. Monocyte pct 25.0 % [facility] Comment: Interpretive Data Percent cell count reference ranges are not reported, since discordance with absolute values may lead to misinterpretation of CBC data. Current Interpretive Data was last revised on 2017. Eosinophil pct 2.5 % [facility] Comment: Interpretive Data Percent cell count reference ranges are not reported, since discordance with absolute values may lead to misinterpretation of CBC data. Current Interpretive Data was last revised on 2017. Basophil pct 0.4 % [facility] Comment: Interpretive Data Percent cell count reference ranges are not reported, since discordance with absolute values may lead to misinterpretation of CBC data. Current Interpretive Data was last revised on 2017. Blood 08/27/2024 12:2 9 AM CDT 08/27/2024 12:43 AM CDT us Smith Sawyer MD LAB BLOOD ORDERABLES Lila dawson Result [facility] [place] [address] * (ABNORMAL) CBC with auto differential (08/27/2024 12:29 AM CDT) [facility] WBC 2.76(L) 3.80 - 9.90 K/cumm Hgb 9.0(L) 13.0 - 17.5 g/dL [facility] Hct 25.4(L) 38.9 - 50.3 % [facility] Plt 112(L) 150 - 400 K/cumm [facility] MPV 10.0 9.1 - 12.3 fL [facility] RBC 2.41(L) 4.30 - 5.80 M/cumm [facility] MCV 105.4(H) 81.3 - 96.4 fL [facility] MCH 37.3(H) 27.1 - 33.3 pg [facility] MCHC 35.4 32.3 - 35.7 g/dL [facility] RDW CV 19.9(H) 11.1 - 14.9 % [facility] RDW SD 73.0(H) 35.7 - 48.1 fL [facility] NRBC abs 0.05(H) 0.00 - 0.01 K/cumm [facility] Blood 08/27/2024 12:2 9 AM CDT 08/27/2024 12:43 AM CDT Smith Sawyer MD LAB BLOOD ORDERABLES Lila dawson Result Performing Organization Address City/State/[facility] Co de Phone Number [facility] [place] [address] * (ABNORMAL) Protime-INR (08/27/2024 12:29 AM CDT) [facility] PT 27.0(H) 9.7 - 13.0 sec INR 2.45(H) 0.90 - 1.20 [facility] Comment: Interpretive data Oral anticoagulant [...] ORDERABLES Lila l Result Performing Organization Address [facility] Co de Phone Number [facility] [place] [address] * Type and screen (08/27/2024 12:29 AM CDT) ABO Rh A Positive Minna, indirect Negative [facility] Blood 08/27/2024 12:2 9 AM CDT 08/27/2024 12:46 AM CDT Narrative [facility] - 08/27/2024 2:10 AM CDT Has the patient had Daratumumab or Isatuximab in the past 6 months?->Unknown Smith Sawyer MD LAB BLOOD BANK TEST ORDER DEMETRIO Final Result Performing Organization Address [facility] de Phone Number [facility] [place] [address] * Uric acid (08/27/2024 12:29 AM CDT) Uric acid 6.9 3.0 - 8.0 mg/dL Blood 08/27/2024 12:2 9 AM CDT 08/27/2024 12:43 AM CDT Narrative [facility] - 08/27/2024 1:11 AM CDT Saturday and only. Morning draw. . Smith Sawyer MD LAB BLOOD ORDERABLES Lila l Result Performing Organization Address [facility] Co de Phone Number [facility] [place] [address] * (ABNORMAL) Phosphorus (08/27/2024 12:29 AM CDT) Phosphorus, pl 2.2(L) 2.3 - 4.5 mg/dL Blood 08/27/2024 12:2 9 AM CDT 08/27/2024 12:43 AM CDT Smith Sawyer MD LAB BLOOD ORDERABLES Lila l Result [facility] [place] [address] * Magnesium (08/27/2024 12:29 AM CDT) Pathologist [facility] Magnesium 1.7 1.4 - 2.5 mg/dL Blood 08/27/2024 12:2 9 AM CDT 08/27/2024 12:43 AM CDT Result [facility] Zuleima Levine MD LAB BLOOD ORDERABLES Lila l Result Performing Organization Address [facility] Co de Phone Number [facility] [place] [address] * (ABNORMAL) Lactate dehydrogenase (LD) (08/27/2024 12:29 AM CDT) Pathologist [facility] Lactate dehydrogenase (LDH) 296(H) 100 - 250 Units/L Blood 08/27/2024 12:2 9 AM CDT 08/27/2024 12:43 AM CDT Narrative [facility] - 08/27/2024 1:11 AM CDT Saturday and only. Morning draw. Smith Sawyer MD LAB BLOOD ORDERABLES Lila l Result Performing Organization Address [facility] Co de Phone Number [facility] [place] [address] * (ABNORMAL) Comprehensive metabolic panel (08/27/2024 12:29 AM CDT) Sodium 142 135 - 145 mmol/L Potassium, pl 3.4 3.3 - 4.9 mmol/L [facility] Chloride 112(H) 97 - 110 mmol/L [facility] CO2 19(L) 22 - 32 mmol/L [facility] Anion gap 11 2 - 15 mmol/L [facility] BUN 29(H) 6 - 25 mg/dL [facility] Creatinine 1.01 0.80 - 1.30 mg/dL [facility] Glucose 116 70 - 199 mg/dL [facility] Comment: Interpretive Data Fasting glucose [...] 2022. Calcium 7.8(L) 8.5 - 10.3 mg/dL [facility] Bilirubin, total 0.6 0.1 - 1.2 mg/dL [facility] Protein, pl 4.8(L) 6.5 - 8.5 g/dL [facility] Albumin 3.0(L) 3.5 - 5.0 g/dL [facility] Alk phos 68 40 - 130 Units/L [facility] ALT 20 7 - 55 Units/L [facility] AST 37 10 - 50 Units/L [facility] Blood 08/27/2024 12:2 9 AM CDT 08/27/2024 12:43 AM CDT us Smith Sawyer MD LAB BLOOD ORDERABLES Lila dawson Result [facility] [place] [address] * (ABNORMAL) Protime-INR (08/26/2024 5:32 PM CDT) PT 23.9(H) 9.7 - 13.0 sec INR 2.18(H) 0.90 - 1.20 [facility] Comment: Interpretive data Oral anticoagulant therapeutic ranges: Venous thromboembolism prophylaxis or treatment: 2.0-3.0 CARDIOLOGY Standard range: 2.0-3.0 High-intensity range: 2.5-3.5 Refer to indication-specific guidelines for appropriate target ranges for prosthetic heart valve replacement. Current interpretive data was last revised on 2019. Blood 08/26/2024 5:32 PM CDT 08/26/2024 5:54 PM CDT us Zuleima Levine MD LAB BLOOD ORDERABLES Lila dawson Result [facility] [place] [address] * eGFR (08/26/2024 2:08 AM CDT) eGFR [...] MD LAB BLOOD ORDERABLES Lila dawson Result [facility] [place] [address] * (ABNORMAL) Differential, auto (08/26/2024 2:08 AM CDT) Neutrophil abs 3.03 1.50 - 6.50 K/cumm Imm gran abs 0.06 0.00 - 0.10 K/cumm [facility] Lymphocyte abs 0.27(L) 0.80 - 3.30 K/cumm [facility] Monocyte abs 0.85(H) 0.20 - 0.80 K/cumm [facility] Eosinophil abs 0.13 0.00 - 0.50 K/cumm [facility] Basophil abs 0.01 0.00 - 0.10 K/cumm [facility] Neutrophil pct 69.7 % [facility] Comment: Interpretive Data Percent cell count reference ranges are not reported, since discordance with absolute values may lead to misinterpretation of CBC data. Current Interpretive Data was last revised on 2017. Imm gran pct 1.4 % [facility] Comment: Interpretive Data Percent cell count reference ranges are not reported, since discordance with absolute values may lead to misinterpretation of CBC data. Current Interpretive Data was last revised on 2017. Lymphocyte pct 6.2 % [facility] Comment: Interpretive Data Percent cell count reference ranges are not reported, since discordance with absolute values may lead to misinterpretation of CBC data. Current Interpretive Data was last revised on 2017. Monocyte pct 19.5 % [facility] Comment: Interpretive Data Percent cell count reference ranges are not reported, since discordance with absolute values may lead to misinterpretation of CBC data. Current Interpretive Data was last revised on 2017. Eosinophil pct 3.0 % [facility] Comment: Interpretive Data Percent cell count reference ranges are not reported, since discordance with absolute values may lead to misinterpretation of CBC data. Current Interpretive Data was last revised on 2017. Basophil pct 0.2 % [facility] Comment: Interpretive Data Percent cell count reference ranges are not reported, since discordance with absolute values may lead to misinterpretation of CBC data. Current Interpretive Data was last revised on 2017. Blood 08/26/2024 2:08 AM CDT 08/26/2024 2:24 AM CDT Smith Sawyer MD LAB BLOOD ORDERABLES Lila l Result Performing Organization Address City/[facility] Co de Phone Number [facility] [place] [address] * (ABNORMAL) CBC with auto differential (08/26/2024 2:08 AM CDT) WBC 4.35 3.80 - 9.90 K/cumm Hgb 9.3(L) 13.0 - 17.5 g/dL [facility] Hct 25.9(L) 38.9 - 50.3 % [facility] Plt 134(L) 150 - 400 K/cumm [facility] MPV 9.8 9.1 - 12.3 fL [facility] RBC 2.47(L) 4.30 - 5.80 M/cumm [facility] MCV 104.9(H) 81.3 - 96.4 fL [facility] MCH 37.7(H) 27.1 - 33.3 pg [facility] MCHC 35.9(H) 32.3 - 35.7 g/dL [facility] RDW CV 19.6(H) 11.1 - 14.9 % [facility] RDW SD 71.3(H) 35.7 - 48.1 fL [facility] NRBC abs 0.08(H) 0.00 - 0.01 K/cumm [facility] Blood 08/26/2024 2:08 AM CDT 08/26/2024 2:24 AM CDT Smith Sawyer MD LAB BLOOD ORDERABLES Lila l Result [facility] [place] [address] * (ABNORMAL) Protime-INR (08/26/2024 2:08 AM CDT) PT 18.4(H) 9.7 - 13.0 sec INR 1.69(H) 0.90 - 1.20 [facility] Comment: Interpretive data Oral anticoagulant [...] ORDERABLES Lila l Result Performing Organization Address [facility] Co de Phone Number [facility] [place] [address] * Phosphorus (08/26/2024 2:08 AM CDT) Pathologist [facility] Phosphorus, pl 3.4 2.3 - 4.5 mg/dL Blood 08/26/2024 2:08 AM CDT 08/26/2024 2:24 AM CDT us Smith Sawyer MD LAB BLOOD ORDERABLES Lila l Result Performing Organization Address City/State/[facility] [place] [address] * Magnesium (08/26/2024 2:08 AM CDT) Pathologist [facility] Magnesium 1.8 1.4 - 2.5 mg/dL Blood 08/26/2024 2:08 AM CDT 08/26/2024 2:24 AM CDT us Zuleima Levine MD LAB BLOOD ORDERABLES Lila dawson Result [facility] [place] [address] * (ABNORMAL) Comprehensive metabolic panel (08/26/2024 2:08 AM CDT) Sodium 140 135 - 145 mmol/L Potassium, pl 3.1(L) 3.3 - 4.9 mmol/L [facility] Chloride 109 97 - 110 mmol/L [facility] CO2 20(L) 22 - 32 mmol/L [facility] Anion gap 11 2 - 15 mmol/L [facility] BUN 36(H) 6 - 25 mg/dL [facility] Creatinine 1.18 0.80 - 1.30 mg/dL [facility] Glucose 107 70 - 199 mg/dL [facility] Comment: Interpretive Data Fasting glucose [...] 2022. Calcium 8.1(L) 8.5 - 10.3 mg/dL [facility] Bilirubin, total 0.7 0.1 - 1.2 mg/dL [facility] Protein, pl 5.1(L) 6.5 - 8.5 g/dL [facility] Albumin 3.1(L) 3.5 - 5.0 g/dL [facility] Alk phos 78 40 - 130 Units/L [facility] ALT 19 7 - 55 Units/L [facility] AST 33 10 - 50 Units/L [facility] Blood 08/26/2024 2:08 AM CDT 08/26/2024 2:24 AM CDT Smith Sawyer MD LAB BLOOD ORDERABLES Lila l Result Performing Organization Address City/[facility]/ZIP Co de Phone Number [facility] [place] [address] * eGFR (08/25/2024 2:06 AM CDT) Pathologist [facility] eGFR 65 >=60 mL/min/1. 73 m2 Comment: [...] ORDERABLES Lila l Result Performing Organization Address City/[facility]/ZIP Co de Phone Number [facility] [place] [address] * (ABNORMAL) Differential, auto (08/25/2024 2:06 AM CDT) [facility] Neutrophil abs 2.52 1.50 - 6.50 K/cumm Imm gran abs 0.03 0.00 - 0.10 K/cumm [facility] Lymphocyte abs 0.26(L) 0.80 - 3.30 K/cumm [facility] Monocyte abs 0.72 0.20 - 0.80 K/cumm [facility] Eosinophil abs 0.06 0.00 - 0.50 K/cumm [facility] Basophil abs 0.00 0.00 - 0.10 K/cumm [facility] Neutrophil pct 70.2 % [facility] Comment: Interpretive Data Percent cell count reference ranges are not reported, since discordance with absolute values may lead to misinterpretation of CBC data. Current Interpretive Data was last revised on 2017. Imm gran pct 0.8 % [facility] Comment: Interpretive Data Percent cell count reference ranges are not reported, since discordance with absolute values may lead to misinterpretation of CBC data. Current Interpretive Data was last revised on 2017. Lymphocyte pct 7.2 % [facility] Comment: Interpretive Data Percent cell count reference ranges are not reported, since discordance with absolute values may lead to misinterpretation of CBC data. Current Interpretive Data was last revised on 2017. Monocyte pct 20.1 % [facility] Comment: Interpretive Data Percent cell count reference ranges are not reported, since discordance with absolute values may lead to misinterpretation of CBC data. Current Interpretive Data was last revised on 2017. Eosinophil pct 1.7 % [facility] Comment: Interpretive Data Percent cell count reference ranges are not reported, since discordance with absolute values may lead to misinterpretation of CBC data. Current Interpretive Data was last revised on 2017. Basophil pct 0.0 % [facility] Comment: Interpretive Data Percent cell count reference ranges are not reported, since discordance with absolute values may lead to misinterpretation of CBC data. Current Interpretive Data was last revised on 2017. Blood 08/25/2024 2:06 AM CDT 08/25/2024 2:27 AM CDT us Smith Sawyer MD LAB BLOOD ORDERABLES Lila dawson Result [facility] [place] [address] * (ABNORMAL) CBC with auto differential (08/25/2024 2:06 AM CDT) [facility] WBC 3.59(L) 3.80 - 9.90 K/cumm Hgb 9.4(L) 13.0 - 17.5 g/dL [facility] Hct 26.9(L) 38.9 - 50.3 % [facility] Plt 149(L) 150 - 400 K/cumm [facility] MPV 9.8 9.1 - 12.3 fL [facility] RBC 2.54(L) 4.30 - 5.80 M/cumm [facility] MCV 105.9(H) 81.3 - 96.4 fL [facility] MCH 37.0(H) 27.1 - 33.3 pg [facility] MCHC 34.9 32.3 - 35.7 g/dL [facility] RDW CV 19.0(H) 11.1 - 14.9 % [facility] RDW SD 66.2(H) 35.7 - 48.1 fL [facility] NRBC abs 0.04(H) 0.00 - 0.01 K/cumm [facility] Blood 08/25/2024 2:06 AM CDT 08/25/2024 2:27 AM CDT us Smith Sawyer MD LAB BLOOD ORDERABLES Lila l Result Performing Organization Address City/State/[facility] Co de Phone Number [facility] [place] [address] * (ABNORMAL) Protime-INR (08/25/2024 2:06 AM CDT) [facility] PT 14.6(H) 9.7 - 13.0 sec INR 1.34(H) 0.90 - 1.20 [facility] Comment: Interpretive data Oral anticoagulant [...] ORDERABLES Lila l Result Performing Organization Address City/[facility]/ZIP Co de Phone Number [facility] [place] [address] * Phosphorus (08/25/2024 2:06 AM CDT) Pathologist [facility] Phosphorus, pl 3.6 2.3 - 4.5 mg/dL Blood 08/25/2024 2:06 AM CDT 08/25/2024 2:26 AM CDT Smith Sawyer MD LAB BLOOD ORDERABLES Lila l Result Performing Organization Address [facility] Co de Phone Number [facility] [place] [address] * (ABNORMAL) Comprehensive metabolic panel (08/25/2024 2:06 AM CDT) Pathologist [facility] Sodium 142 135 - 145 mmol/L Potassium, pl 3.4 3.3 - 4.9 mmol/L [facility] Chloride 111(H) 97 - 110 mmol/L [facility] CO2 21(L) 22 - 32 mmol/L [facility] Anion gap 10 2 - 15 mmol/L [facility] BUN 38(H) 6 - 25 mg/dL [facility] Creatinine 1.17 0.80 - 1.30 mg/dL [facility] Glucose 121 70 - 199 mg/dL [facility] Comment: Interpretive Data Fasting glucose [...] Calcium 8.3(L) 8.5 - 10.3 mg/dL [facility] Bilirubin, total 0.7 0.1 - 1.2 mg/dL [facility] Protein, pl 5.1(L) 6.5 - 8.5 g/dL [facility] Albumin 3.2(L) 3.5 - 5.0 g/dL [facility] Alk phos 78 40 - 130 Units/L [facility] ALT 16 7 - 55 Units/L [facility] AST 29 10 - 50 Units/L [facility] Blood 08/25/2024 2:06 AM CDT 08/25/2024 2:26 AM CDT Smith Sawyer MD LAB BLOOD ORDERABLES Lila dawson Result [facility] [place] [address] * eGFR (08/24/2024 3:33 AM CDT) eGFR [...] MD LAB BLOOD ORDERABLES Lila dawson Result [facility] [place] [address] * (ABNORMAL) Differential, auto (08/24/2024 3:33 AM CDT) Neutrophil abs 2.28 1.50 - 6.50 K/cumm Imm gran abs 0.03 0.00 - 0.10 K/cumm [facility] Lymphocyte abs 0.30(L) 0.80 - 3.30 K/cumm [facility] Monocyte abs 0.76 0.20 - 0.80 K/cumm [facility] Eosinophil abs 0.02 0.00 - 0.50 K/cumm [facility] Basophil abs 0.01 0.00 - 0.10 K/cumm [facility] Neutrophil pct 67.0 % [facility] Comment: Interpretive Data Percent cell count reference ranges are not reported, since discordance with absolute values may lead to misinterpretation of CBC data. Current Interpretive Data was last revised on 2017. Imm gran pct 0.9 % [facility] Comment: Interpretive Data Percent cell count reference ranges are not reported, since discordance with absolute values may lead to misinterpretation of CBC data. Current Interpretive Data was last revised on 2017. Lymphocyte pct 8.8 % [facility] Comment: Interpretive Data Percent cell count reference ranges are not reported, since discordance with absolute values may lead to misinterpretation of CBC data. Current Interpretive Data was last revised on 2017. Monocyte pct 22.4 % [facility] Comment: Interpretive Data Percent cell count reference ranges are not reported, since discordance with absolute values may lead to misinterpretation of CBC data. Current Interpretive Data was last revised on 2017. Eosinophil pct 0.6 % [facility] Comment: Interpretive Data Percent cell count reference ranges are not reported, since discordance with absolute values may lead to misinterpretation of CBC data. Current Interpretive Data was last revised on 2017. Basophil pct 0.3 % [facility] Comment: Interpretive Data Percent cell count reference ranges are not reported, since discordance with absolute values may lead to misinterpretation of CBC data. Current Interpretive Data was last revised on 2017. Blood 08/24/2024 3:33 AM CDT 08/24/2024 4:14 AM CDT us Smith Sawyer MD LAB BLOOD ORDERABLES Lila dawson Result [facility] [place] [address] * (ABNORMAL) CBC with auto differential (08/24/2024 3:33 AM CDT) WBC 3.40(L) 3.80 - 9.90 K/cumm Hgb 9.4(L) 13.0 - 17.5 g/dL [facility] Hct 26.3(L) 38.9 - 50.3 % [facility] Plt 162 150 - 400 K/cumm [facility] MPV 9.5 9.1 - 12.3 fL [facility] RBC 2.52(L) 4.30 - 5.80 M/cumm [facility] MCV 104.4(H) 81.3 - 96.4 fL [facility] MCH 37.3(H) 27.1 - 33.3 pg [facility] MCHC 35.7 32.3 - 35.7 g/dL [facility] RDW CV 18.5(H) 11.1 - 14.9 % [facility] RDW SD 62.8(H) 35.7 - 48.1 fL [facility] NRBC abs 0.04(H) 0.00 - 0.01 K/cumm [facility] Blood 08/24/2024 3:33 AM CDT 08/24/2024 4:14 AM CDT Result [facility] Smith Sawyer MD LAB BLOOD ORDERABLES Lila l Result Performing Organization Address [facility] Co de Phone Number [facility] [address] * aPTT (08/24/2024 3:33 AM CDT) aPTT 34 28 - 38 sec Comment: Interpretive Data Heparin therapeutic range: 66.0 - 100.0 seconds. Range based on correlation with therapeutic heparin activity range of 0.3 - 0.7 Units/mL. Current interpretive data was last revised on 2023. Blood 08/24/2024 3:33 AM CDT 08/24/2024 4:12 AM CDT Result [facility] Smith Sawyer MD LAB BLOOD ORDERABLES Lila l Result Performing Organization Address [facility] de Phone Number [facility] [place] [address] * (ABNORMAL) Protime-INR (08/24/2024 3:33 AM CDT) PT 17.8(H) 9.7 - 13.0 sec INR 1.63(H) 0.90 - 1.20 [facility] Comment: Interpretive data Oral anticoagulant [...] ORDERABLES Lila l Result Performing Organization Address [facility] Co de Phone Number [facility] [address] * Type and screen (08/24/2024 3:33 AM CDT) ABO Rh A Positive Minna, indirect Negative [facility] Blood 08/24/2024 3:3 3 AM CDT 08/24/2024 3:48 AM CDT Narrative [facility] - 08/24/2024 4:35 AM CDT Has the patient had Daratumumab or Isatuximab in the past 6 months?->Unknown Smith Sawyer MD LAB BLOOD BANK TEST ORDER DEMETRIO Final Result Performing Organization Address [facility] [place] [address] * Uric acid (08/24/2024 3:33 AM CDT) Pathologist [facility] Uric acid 7.6 3.0 - 8.0 mg/dL Blood 08/24/2024 3:33 AM CDT 08/24/2024 4:13 AM CDT Narrative [facility] - 08/24/2024 4:41 AM CDT Saturday and only. Morning draw. . Smith Sawyer MD LAB BLOOD ORDERABLES Lila l Result Performing Organization Address City/[facility]/ZIP Co de Phone Number [facility] [place] [place] [address] * Phosphorus (08/24/2024 3:33 AM CDT) Phosphorus, pl 3.4 2.3 - 4.5 mg/dL Blood 08/24/2024 3:33 AM CDT 08/24/2024 4:13 AM CDT Smith Sawyer MD LAB BLOOD ORDERABLES Lila l Result Performing Organization Address City/[facility] Co de Phone Number [facility] [place] [address] * (ABNORMAL) Lactate dehydrogenase (LD) (08/24/2024 3:33 AM CDT) [facility] Lactate dehydrogenase (LDH) 302(H) 100 - 250 Units/L Blood 08/24/2024 3:33 AM CDT 08/24/2024 4:13 AM CDT Narrative [facility] - 08/24/2024 4:41 AM CDT Saturday and only. Morning draw. Smith Sawyer MD LAB BLOOD ORDERABLES Lila dawson Result [facility] [place] [address] * (ABNORMAL) Comprehensive metabolic panel (08/24/2024 3:33 AM CDT) [facility] Sodium 139 135 - 145 mmol/L Potassium, pl 3.4 3.3 - 4.9 mmol/L [facility] Chloride 108 97 - 110 mmol/L [facility] CO2 19(L) 22 - 32 mmol/L [facility] Anion gap 12 2 - 15 mmol/L [facility] BUN 39(H) 6 - 25 mg/dL [facility] Creatinine 1.21 0.80 - 1.30 mg/dL [facility] Glucose 113 70 - 199 mg/dL [facility] Comment: Interpretive Data Fasting glucose [...] 2022. Calcium 8.6 8.5 - 10.3 mg/dL [facility] Bilirubin, total 0.8 0.1 - 1.2 mg/dL [facility] Protein, pl 5.2(L) 6.5 - 8.5 g/dL [facility] Albumin 3.1(L) 3.5 - 5.0 g/dL [facility] Alk phos 75 40 - 130 Units/L [facility] ALT 15 7 - 55 Units/L [facility] AST 29 10 - 50 Units/L [facility] Blood 08/24/2024 3:33 AM CDT 08/24/2024 4:13 AM CDT Smith Sawyer MD LAB BLOOD ORDERABLES Lila l Result Performing Organization Address City/[facility] Co de Phone Number [facility] [place] [address] * Critical Result Callback Hematology (08/23/2024 8:31 AM CDT) Date Notified [id number] Time Notified 939 [facility] TestName INR [facility] Called/Read Back Trish Kwok [facility] Credentials RN [facility] Called By TP [facility] Blood 08/23/2024 8:31 AM CDT 08/23/2024 8:48 AM CDT Stewart Varghese MD LAB BLOOD ORDERABLES Lila l Result Performing Organization Address City/[facility]/ZIP Co de Phone Number [facility] [place] [address] * (ABNORMAL) aPTT (08/23/2024 8:31 AM CDT) [...] ORDERABLES Lila l Result Performing Organization Address [facility] de Phone Number [facility] [place] [address] * (ABNORMAL) Thrombin time (08/23/2024 8:31 AM CDT) Thrombin time 15.3(H) 10.0 - 15.0 sec Blood 08/23/2024 8:31 AM CDT 08/23/2024 8:48 AM CDT Stewart Varghese MD LAB BLOOD ORDERABLES Lila l Result Performing Organization Address [facility] de Phone Number [facility] [place] [address] * (ABNORMAL) Protime-INR (08/23/2024 8:31 AM CDT) PT >100.0(H) 9.7 - 13.0 sec Comment: Verified No clot detected in sample. INR >9.00(C) 0.90 - 1.20 [facility] Comment: Verified No clot detected [...] ORDERABLES Lila l Result Performing Organization Address [facility] de Phone Number [facility] [place] [address] * eGFR (08/23/2024 12:33 AM CDT) Pathologist [facility] eGFR 62 >=60 mL/min/1. 73 m2 Comment: [...] MD LAB BLOOD ORDERABLES Lila dawson Result [facility] [place] [address] * (ABNORMAL) Differential, auto (08/23/2024 12:33 AM CDT) Pathologist [facility] Neutrophil abs 3.43 1.50 - 6.50 K/cumm Imm gran abs 0.02 0.00 - 0.10 K/cumm [facility] Lymphocyte abs 0.19(L) 0.80 - 3.30 K/cumm [facility] Monocyte abs 0.78 0.20 - 0.80 K/cumm [facility] Eosinophil abs 0.00 0.00 - 0.50 K/cumm [facility] Basophil abs 0.00 0.00 - 0.10 K/cumm [facility] Neutrophil pct 77.6 % [facility] Comment: Interpretive Data Percent cell count reference ranges are not reported, since discordance with absolute values may lead to misinterpretation of CBC data. Current Interpretive Data was last revised on 2017. Imm gran pct 0.5 % [facility] Comment: Interpretive Data Percent cell count reference ranges are not reported, since discordance with absolute values may lead to misinterpretation of CBC data. Current Interpretive Data was last revised on 2017. Lymphocyte pct 4.3 % [facility] Comment: Interpretive Data Percent cell count reference ranges are not reported, since discordance with absolute values may lead to misinterpretation of CBC data. Current Interpretive Data was last revised on 2017. Monocyte pct 17.6 % [facility] Comment: Interpretive Data Percent cell count reference ranges are not reported, since discordance with absolute values may lead to misinterpretation of CBC data. Current Interpretive Data was last revised on 2017. Eosinophil pct 0.0 % [facility] Comment: Interpretive Data Percent cell count reference ranges are not reported, since discordance with absolute values may lead to misinterpretation of CBC data. Current Interpretive Data was last revised on 2017. Basophil pct 0.0 % [facility] Comment: Interpretive Data Percent cell count reference ranges are not reported, since discordance with absolute values may lead to misinterpretation of CBC data. Current Interpretive Data was last revised on 2017. Blood 08/23/2024 12:3 3 AM CDT 08/23/2024 12:55 AM CDT us Smith Sawyer MD LAB BLOOD ORDERABLES Lila dawson Result [facility] [place] [address] * (ABNORMAL) CBC with auto differential (08/23/2024 12:33 AM CDT) WBC 4.42 3.80 - 9.90 K/cumm Hgb 9.2(L) 13.0 - 17.5 g/dL [facility] Hct 25.8(L) 38.9 - 50.3 % [facility] Plt 183 150 - 400 K/cumm [facility] MPV 9.6 9.1 - 12.3 fL [facility] RBC 2.51(L) 4.30 - 5.80 M/cumm [facility] MCV 102.8(H) 81.3 - 96.4 fL [facility] MCH 36.7(H) 27.1 - 33.3 pg [facility] MCHC 35.7 32.3 - 35.7 g/dL [facility] RDW CV 18.0(H) 11.1 - 14.9 % [facility] RDW SD 61.4(H) 35.7 - 48.1 fL [facility] NRBC abs 0.04(H) 0.00 - 0.01 K/cumm [facility] Blood 08/23/2024 12:3 3 AM CDT 08/23/2024 12:55 AM CDT Smith Sawyer MD LAB BLOOD ORDERABLES Lila l Result Performing Organization Address City/[facility]/ZIP Co de Phone Number [facility] [place] [address] * Phosphorus (08/23/2024 12:33 AM CDT) Pathologist [facility] Phosphorus, pl 3.3 2.3 - 4.5 mg/dL Blood 08/23/2024 12:3 3 AM CDT 08/23/2024 12:55 AM CDT Smith Sawyer MD LAB BLOOD ORDERABLES Lila l Result [facility] [place] [address] * (ABNORMAL) Comprehensive metabolic panel (08/23/2024 12:33 AM CDT) Sodium 139 135 - 145 mmol/L Potassium, pl 3.9 3.3 - 4.9 mmol/L [facility] Chloride 107 97 - 110 mmol/L [facility] CO2 21(L) 22 - 32 mmol/L [facility] Anion gap 11 2 - 15 mmol/L [facility] BUN 38(H) 6 - 25 mg/dL [facility] Creatinine 1.22 0.80 - 1.30 mg/dL [facility] Glucose 160 70 - 199 mg/dL [facility] Comment: Interpretive Data Fasting glucose [...] 2022. Calcium 8.8 8.5 - 10.3 mg/dL [facility] Bilirubin, total 0.7 0.1 - 1.2 mg/dL [facility] Protein, pl 5.5(L) 6.5 - 8.5 g/dL [facility] Albumin 3.6 3.5 - 5.0 g/dL [facility] Alk phos 77 40 - 130 Units/L [facility] ALT 17 7 - 55 Units/L [facility] AST 25 10 - 50 Units/L [facility] Blood 08/23/2024 12:3 3 AM CDT 08/23/2024 12:55 AM CDT us Smith Sawyer MD LAB BLOOD ORDERABLES Lila dawson Result [facility] Department [place] [address] * -Miscellaneous Molecular Send-Out Request (08/22/2024 3:01 PM CDT) Result 1 Test Name: Dihydropyrimidine Dehydrogenase Gene Full Sequencing ([place]) Specimen Type: PB Result: See attached scanned report for results. Test name Dihydropyrimidine Dehydrogenase Gene Full Sequencing ([place]) [facility] Miscellaneous 08/22/2024 3:0 1 PM CDT 08/27/2024 10:39 AM CDT Narrative [facility] - 09/02/2024 8:17 AM CDT Dihydropyrimidine Dehydrogenase Gene Full Sequencing ([place]) Miscellaneous Lab Test us Zuleima Levine MD LAB GENETIC TESTING Final Result [facility] [place] [address] * CT Chest Abdomen Pelvis W Contrast [...] agrees with it. Electronically signed by: Cheri Craig, M.D. Smith Sawyer MD IMG CT PROCEDURES Final R esult * (ABNORMAL) Urinalysis reflex to microscopic and culture Urine (08/22/2024 6:20 AM CDT) Color, ur Yellow Yellow Clarity, ur Clear Clear [facility] Specific gravity, ur 1.020 1.003 - 1.030 [facility] pH, urine 6.0 [facility] Comment: Interpretive Data U rine pH is affected by diet, medications, systemic acid-base disturbances, and renal tubular function. pH may affect urinary stone formation. For example, urine pH below 6.0 may help reduce the tendency for calcium phosphate stones and pH greater than 6.0 may reduce the tendency for uric acid stone formation. Source: [facility] [place] Current Interpretive Data was last revised on 2017 Protein, ur ql Negative Negative [facility] Glucose, ur ql Negative Negative [facility] Ketones, ur Negative Negative [facility] Bilirubin, ur Negative Negative [facility] Blood, ur Negative Negative [facility] Urobilinogen, ur <2.0 <2.0 mg/dL [facility] Nitrite, ur Negative Negative [facility] Leukocyte esterase, ur Trace(A) Negative [facility] UA reflex comment Reflex to microscopic UA will be performed. [facility] Urine 08/22/2024 6:20 AM CDT 08/22/2024 6:30 AM CDT Smith Sawyer MD LAB MICROBIOLOGY - GENERA L ORDERABLES Final Result [facility] [place] [address] * (ABNORMAL) Urinalysis, microscopic only (08/22/2024 6:20 AM CDT) WBC, ur 0-5 0 - 5 /HPF RBC, ur 0-2 0 - 2 /HPF [facility] Epithelial cells, squamous, ur 1-5 0 - 5 /HPF [facility] Mucous, ur Present(A) [facility] Amorphous crystals, ur Trace(A) [facility] Culture Reflex Comment Reflex conditions for urine culture (WBC >10) not met. [facility] Urine 08/22/2024 6:20 AM CDT 08/22/2024 6:30 AM CDT us Smith Sawyer MD LAB URINE ORDERABLES Lila l Result [facility] [place] [address] * (ABNORMAL) Differential, auto (08/22/2024 2:30 AM CDT) Neutrophil abs 4.00 1.50 - 6.50 K/cumm Imm gran abs 0.04 0.00 - 0.10 K/cumm [facility] Lymphocyte abs 0.13(L) 0.80 - 3.30 K/cumm [facility] Monocyte abs 0.21 0.20 - 0.80 K/cumm [facility] Eosinophil abs 0.01 0.00 - 0.50 K/cumm [facility] Basophil abs 0.01 0.00 - 0.10 K/cumm [facility] Neutrophil pct 90.9 % [facility] Comment: Interpretive Data Percent cell count reference ranges are not reported, since discordance with absolute values may lead to misinterpretation of CBC data. Current Interpretive Data was last revised on 2017. Imm gran pct 0.9 % [facility] Comment: Interpretive Data Percent cell count reference ranges are not reported, since discordance with absolute values may lead to misinterpretation of CBC data. Current Interpretive Data was last revised on 2017. Lymphocyte pct 3.0 % [facility] Comment: Interpretive Data Percent cell count reference ranges are not reported, since discordance with absolute values may lead to misinterpretation of CBC data. Current Interpretive Data was last revised on 2017. Monocyte pct 4.8 % [facility] Comment: Interpretive Data Percent cell count reference ranges are not reported, since discordance with absolute values may lead to misinterpretation of CBC data. Current Interpretive Data was last revised on 2017. Eosinophil pct 0.2 % [facility] Comment: Interpretive Data Percent cell count reference ranges are not reported, since discordance with absolute values may lead to misinterpretation of CBC data. Current Interpretive Data was last revised on 2017. Basophil pct 0.2 % [facility] Comment: Interpretive Data Percent cell count reference ranges are not reported, since discordance with absolute values may lead to misinterpretation of CBC data. Current Interpretive Data was last revised on 2017. Blood 08/22/2024 2:30 AM CDT 08/22/2024 12:54 AM CDT us Smith Sawyer MD LAB BLOOD ORDERABLES Lila dawson Result [facility] [place] [address] * (ABNORMAL) CBC with auto differential (08/22/2024 2:30 AM CDT) WBC 4.40 3.80 - 9.90 K/cumm Hgb 9.0(L) 13.0 - 17.5 g/dL [facility] Hct 25.0(L) 38.9 - 50.3 % [facility] Plt 168 150 - 400 K/cumm [facility] MPV 9.9 9.1 - 12.3 fL [facility] RBC 2.47(L) 4.30 - 5.80 M/cumm [facility] MCV 101.2(H) 81.3 - 96.4 fL [facility] MCH 36.4(H) 27.1 - 33.3 pg [facility] MCHC 36.0(H) 32.3 - 35.7 g/dL [facility] RDW CV 17.2(H) 11.1 - 14.9 % [facility] RDW SD 59.0(H) 35.7 - 48.1 fL [facility] NRBC abs 0.00 0.00 - 0.01 K/cumm [facility] Blood 08/22/2024 2:30 AM CDT 08/22/2024 12:54 AM CDT Smith Sawyer MD LAB BLOOD ORDERABLES Lila l Result Performing Organization Address City/[facility] Co de Phone Number [facility] [place] [address] * (ABNORMAL) eGFR (08/22/2024 12:28 AM CDT) [...] ORDERABLES Lila l Result [facility] [place] [address] * Critical Result Callback Hematology (08/22/2024 12:28 AM CDT) Date Notified [id number] Time Notified 132 [facility] TestName [facility]UP[facility] PANDA Called/Read Back Naren COREY Credentials RN [facility] Called By ELIZABETH C[facility] Blood 08/22/2024 12:2 8 AM CDT 08/22/2024 1:15 AM CDT Smith Sawyer MD LAB BLOOD ORDERABLES Lila l Result Performing Organization Address [facility] de Phone Number [facility] [place] [address] * Thyroid Function [place] (08/22/2024 12:28 AM CDT) TSH 0.53 0.30 - 4.20 mcIUnit/mL Blood 08/22/2024 12:2 8 AM CDT 08/22/2024 12:55 AM CDT Smith Sawyer MD LAB BLOOD ORDERABLES Lila l Result Performing Organization Address [facility] de Phone Number [facility] [place] [address] * (ABNORMAL) aPTT (08/22/2024 12:28 AM CDT) [...] ORDERABLES Lila l Result Performing Organization Address [facility] [place] [address] * (ABNORMAL) Protime-INR (08/22/2024 12:28 AM CDT) PT 98.6(H) 9.7 - 13.0 sec INR 8.73(C) 0.90 - 1.20 [facility] Comment: REVIEWED Interpretive data Oral [...] ORDERABLES Lila l Result Performing Organization Address City/[facility]/ZIP Co de Phone Number [facility] [place] [address] * Type and screen (08/22/2024 12:28 AM CDT) Minna, indirect Negative ABO Rh A Positive [facility] Blood 08/22/2024 12:2 8 AM CDT 08/22/2024 1:00 AM CDT Narrative [facility] - 08/22/2024 2:10 AM CDT Has the patient had Daratumumab or Isatuximab in the past 6 months?->Unknown Smith Sawyer MD LAB BLOOD BANK TEST ORDER DEMETRIO Final Result Performing Organization Address City/[facility]/ZIP Co de Phone Number [facility] [place] [address] * (ABNORMAL) Uric acid (08/22/2024 12:28 AM CDT) Uric acid 8.4(H) 3.0 - 8.0 mg/dL Blood 08/22/2024 12:2 8 AM CDT 08/22/2024 12:55 AM CDT Narrative [facility] - 08/22/2024 1:31 AM CDT Wilber and only. Morning draw. . Smith Sawyer MD LAB BLOOD ORDERABLES Lila l Result Performing Organization Address [facility] Co de Phone Number [facility] [place] [address] * Phosphorus (08/22/2024 12:28 AM CDT) Phosphorus, pl 2.8 2.3 - 4.5 mg/dL Blood 08/22/2024 12:2 8 AM CDT 08/22/2024 12:55 AM CDT Smith Sawyer MD LAB BLOOD ORDERABLES Lila l Result Performing Organization Address [facility] de Phone Number [facility] [place] [address] * (ABNORMAL) Lactate dehydrogenase (LD) (08/22/2024 12:28 AM CDT) Lactate dehydrogenase (LDH) 301(H) 100 - 250 Units/L Blood 08/22/2024 12:2 8 AM CDT 08/22/2024 12:55 AM CDT Narrative [facility] - 08/22/2024 1:31 AM CDT Saturday and only. Morning draw. Smith Sawyer MD LAB BLOOD ORDERABLES Lila l Result Performing Organization Address [facility] Co de Phone Number [facility] [place] [address] * Vitamin B12 (08/22/2024 12:28 AM CDT) Vitamin B12 760 230 - 1,250 pg/mL Blood 08/22/2024 12:2 8 AM CDT 08/22/2024 12:55 AM CDT Smith Sawyer MD LAB BLOOD ORDERABLES Lila dawson Result [facility] [place] [address] * (ABNORMAL) Comprehensive metabolic panel (08/22/2024 12:28 AM CDT) Sodium 138 135 - 145 mmol/L Potassium, pl 3.5 3.3 - 4.9 mmol/L [facility] Chloride 104 97 - 110 mmol/L [facility] CO2 23 22 - 32 mmol/L [facility] Anion gap 11 2 - 15 mmol/L [facility] BUN 40(H) 6 - 25 mg/dL [facility] Creatinine 1.29 0.80 - 1.30 mg/dL [facility] Glucose 154 70 - 199 mg/dL [facility] Comment: Interpretive Data Fasting glucose [...] 2022. Calcium 8.2(L) 8.5 - 10.3 mg/dL [facility] Bilirubin, total 0.9 0.1 - 1.2 mg/dL [facility] Protein, pl 5.3(L) 6.5 - 8.5 g/dL [facility] Albumin 3.3(L) 3.5 - 5.0 g/dL [facility] Alk phos 76 40 - 130 Units/L [facility] ALT 15 7 - 55 Units/L [facility] AST 29 10 - 50 Units/L [facility] Blood 08/22/2024 12:2 8 AM CDT 08/22/2024 12:55 AM CDT Smith Sawyer MD LAB BLOOD ORDERABLES Lila l Result Performing Organization Address [facility] [place] [address] * C. difficile testing Stool (08/21/2024 9:37 PM CDT) [facility] Result Negative Negative Toxin Result Negative Negative [facility] C. diff result Negative, free toxin Negative, free toxin [facility] C. diff interp Negative for toxigenic Clostridioides (Clostridium) difficile. Analysis was performed using a glutamate dehydrogenase antigen detection assay combined with a C. difficile toxin detection assay. [facility] Stool 08/21/2024 9:37 PM CDT 08/22/2024 1:47 AM CDT Smith Sawyer MD LAB MICROBIOLOGY - GENERA L ORDERABLES Final Result Performing Organization Address [facility] de Phone Number [facility] [place] [address] * Cytomegalovirus (CMV) DNA PCR, quantitative Blood (08/21/2024 9:37 PM CDT) [facility] CMV DNA Not Detected [facility] Comment: Interpretive Data: The quantifiable range of this assay is 34 IUnits/mL to 10,000,000 IUnits/mL (1.53 log IUnits/mL to 7.0 log IUnits/mL). Testing was performed by the [employer]IO 6800 CMV Test ([employer] Testing performed at [facility]. Current interpretive data was last revised on 2020. Blood 08/21/2024 9:37 PM CDT 08/21/2024 10:18 PM CDT Smith Sawyer MD LAB MICROBIOLOGY - GENERA L ORDERABLES Final Result Performing Organization Address [facility] Co de Phone Number [facility] [place] [address] [facility] * Norovirus PCR Stool (08/21/2024 9:37 PM CDT) Norovirus GI RNA Not Detected Not Detected [facility] Norovirus GII RNA Not Detected Not Detected [facility] Comment: Interpretive data: Testing performed at the [facility] using the [employer] Xpert Norovirus Assay. This assay uses nucleic [...] MICROBIOLOGY - GENERA L ORDERABLES Final Result [facility] [place] [address] [facility] * Cryptosporidium and Giardia antigen assay Stool (08/21/2024 9:37 PM CDT) Giardia Ag Negative Negative Cryptosporidium Ag Negative Negative [facility] Comment: Interpretive data: Testing performed by the [facility] using an immunoassay that detects Cryptosporidium and Giardia antigens in stool specimens. If comprehensive examination for ova and parasites is required, please request Ova and Parasite Examination. Stool 08/21/2024 9:37 PM CDT 08/22/2024 1:47 AM CDT us Smith Sawyer MD LAB MICROBIOLOGY - GENERA [place] [address] * Infection Prevention VRE Culture Stool (08/21/2024 9:37 PM CDT) Report Final Report: Negative Stool 08/21/2024 9:37 PM CDT 08/22/2024 6:17 AM CDT Narrative [facility] - 08/24/2024 7:43 AM CDT Surveillance culture for Infection Prevention purposes only; results indicate colonization, not infection requiring treatment. Testing performed by [facility] ([phone]). us Gorge Vaughan MD PhD LAB MICROBIOLOGY - G ENERAL ORDERABLES Final Result Performing Organization Address [facility] Co de Phone Number [facility] [place] [address] * Stool culture Stool Rectum (08/21/2024 9:37 PM CDT) Direct Specimen Exam Shiga Toxin Testing: Antigen detection assay for Shiga-toxin NEGATIVE for Shiga Toxin 1 and Shiga Toxin 2. Report Final Report: No growth of enteric bacterial pathogens [facility] Stool (Rectum) 08/21/2024 9: 37 PM CDT 08/22/2024 1:47 AM CDT Narrative [facility] - 08/26/2024 2:52 PM CDT Specimen received in a sterile container. Testing performed by [facility] ([phone]). Routine stool cultures include procedures to detect Salmonella, Shigella, Edwardsiella, Aeromonas, Pleisiomonas, Campylobacter, Yersinia, E. coli O157, and Shiga-like toxins. Vibrio is cultured only upon special request. If Vibrio is suspected, please call the laboratory at [phone]. Interpretive data was last updated September 10, 2016. us Smith Sawyer MD LAB MICROBIOLOGY - GENERA L ORDERABLES Final Result [facility] [place] [address] * XR Chest 1 View (08/21/2024 4:43 [...] signed by: Chu Villanueva M.D. Lisa Tejeda [employer] MANAGER IMG XR PROCEDURES Final R esult * (ABNORMAL) Respiratory pathogen panel Nasopharyngeal (08/21/2024 4:08 PM CDT) Influenza A RNA Not Detected Not Detected Influenza B RNA Not Detected Not Detected [facility] RSV RNA Not Detected Not Detected [facility] COVID-19 RNA Not Detected Not Detected [facility] Coronavirus 229E RNA Not Detected Not Detected [facility] Coronavirus HKU1 RNA Detected(A) Not Detected [facility] Coronavirus NL63 RNA Not Detected Not Detected [facility] Coronavirus OC43 RNA Not Detected Not Detected [facility] Adenovirus DNA Not Detected Not Detected [facility] Metapneumovirus RNA Not Detected Not Detected [facility] Rhinovirus/Enterov irus RNA Not Detected Not Detected [facility] Parainfluenza 1 RNA Not Detected Not Detected [facility] Parainfluenza 2 RNA Not Detected Not Detected [facility] Parainfluenza 3 RNA Not Detected Not Detected [facility] Parainfluenza 4 RNA Not Detected Not Detected [facility] B. pertussis DNA Not Detected Not Detected [facility] [facility] B. parapertussis DNA Not Detected Not Detected [facility] C. pneumoniae DNA Not Detected Not Detected [facility] M. pneumoniae DNA Not Detected Not Detected [facility] Nasopharyngeal 08/21/2024 4: 08 PM CDT 08/21/2024 4:50 PM CDT Narrative [facility] - 08/21/2024 5:58 PM CDT Is the Patient experiencing symptoms consistent with COVID?->Yes Surveillance testing for transplant patient?->No Interpretive Data The [employer] FilmArray Respiratory Panel (RP2.1) assay is a [...] assay has FDA clearance for testing of COMPLEX HUMAN RESOURCES MANAGER swabs. The performance of additional specimen types has been assessed by the performing laboratory. The performance characteristics of this assay have been determined by [facility] Molecular Infectious Disease Laboratory. Current interpretive data was last revised on 22. Lisa Tejeda COMPLEX HUMAN RESOURCES MANAGER LAB MICROBIOLOGY - GENERA L ORDERABLES Final Result [facility] [place] [address] * (ABNORMAL) eGFR (08/21/2024 3:52 PM CDT) [...] NP LAB BLOOD ORDERABLES Lila eunice Result [facility] [place] [address] * (ABNORMAL) Differential, auto (08/21/2024 3:52 PM CDT) Neutrophil abs 4.28 1.50 - 6.50 K/cumm Imm gran abs 0.03 0.00 - 0.10 K/cumm [facility] Lymphocyte abs 0.27(L) 0.80 - 3.30 K/cumm [facility] Monocyte abs 0.58 0.20 - 0.80 K/cumm [facility] Eosinophil abs 0.03 0.00 - 0.50 K/cumm [facility] Basophil abs 0.01 0.00 - 0.10 K/cumm [facility] Neutrophil pct 82.2 % [facility] Comment: Interpretive Data Percent cell count reference ranges are not reported, since discordance with absolute values may lead to misinterpretation of CBC data. Current Interpretive Data was last revised on 2017. Imm gran pct 0.6 % [facility] Comment: Interpretive Data Percent cell count reference ranges are not reported, since discordance with absolute values may lead to misinterpretation of CBC data. Current Interpretive Data was last revised on 2017. Lymphocyte pct 5.2 % [facility] Comment: Interpretive Data Percent cell count reference ranges are not reported, since discordance with absolute values may lead to misinterpretation of CBC data. Current Interpretive Data was last revised on 2017. Monocyte pct 11.2 % [facility] Comment: Interpretive Data Percent cell count reference ranges are not reported, since discordance with absolute values may lead to misinterpretation of CBC data. Current Interpretive Data was last revised on 2017. Eosinophil pct 0.6 % [facility] Comment: Interpretive Data Percent cell count reference ranges are not reported, since discordance with absolute values may lead to misinterpretation of CBC data. Current Interpretive Data was last revised on 2017. Basophil pct 0.2 % [facility] Comment: Interpretive Data Percent cell count reference ranges are not reported, since discordance with absolute values may lead to misinterpretation of CBC data. Current Interpretive Data was last revised on 2017. Blood 08/21/2024 3:52 PM CDT 08/21/2024 4:16 PM CDT Lisa Tejeda NP LAB BLOOD ORDERABLES Lila dawson Result [facility] [place] [address] * (ABNORMAL) CBC with auto differential (08/21/2024 3:52 PM CDT) WBC 5.20 3.80 - 9.90 K/cumm Hgb 9.7(L) 13.0 - 17.5 g/dL [facility] Hct 26.7(L) 38.9 - 50.3 % [facility] Plt 204 150 - 400 K/cumm [facility] MPV 9.9 9.1 - 12.3 fL [facility] RBC 2.67(L) 4.30 - 5.80 M/cumm [facility] MCV 100.0(H) 81.3 - 96.4 fL [facility] MCH 36.3(H) 27.1 - 33.3 pg [facility] MCHC 36.3(H) 32.3 - 35.7 g/dL [facility] RDW CV 17.3(H) 11.1 - 14.9 % [facility] RDW SD 58.5(H) 35.7 - 48.1 fL [facility] NRBC abs 0.00 0.00 - 0.01 K/cumm [facility] Blood 08/21/2024 3:52 PM CDT 08/21/2024 4:16 PM CDT us Lisa Tejeda COMPLEX HUMAN RESOURCES MANAGER LAB BLOOD ORDERABLES Lila l Result Performing Organization Address City/[facility]/ZIP Co de Phone Number [facility] [place] [address] * CRP (acute phase) (08/21/2024 3:52 PM CDT) Pathologist [facility] CRP 3.7 <=10.0 mg/L Blood 08/21/2024 3:52 PM CDT 08/21/2024 4:16 PM CDT Gorge Vaughan MD PhD LAB BLOOD ORDERABLES Final Result Performing Organization Address [facility] de Phone Number [facility] [place] [address] * (ABNORMAL) Comprehensive metabolic panel (08/21/2024 3:52 PM CDT) [facility] Sodium 136 135 - 145 mmol/L Potassium, pl 3.3 3.3 - 4.9 mmol/L [facility] Chloride 100 97 - 110 mmol/L [facility] CO2 25 22 - 32 mmol/L [facility] Anion gap 11 2 - 15 mmol/L [facility] BUN 40(H) 6 - 25 mg/dL [facility] Creatinine 1.37(H) 0.80 - 1.30 mg/dL [facility] Glucose 123 70 - 199 mg/dL [facility] Comment: Interpretive Data Fasting glucose [...] 2022. Calcium 8.8 8.5 - 10.3 mg/dL [facility] Bilirubin, total 1.1 0.1 - 1.2 mg/dL [facility] Protein, pl 5.7(L) 6.5 - 8.5 g/dL [facility] Albumin 3.9 3.5 - 5.0 g/dL [facility] Alk phos 88 40 - 130 Units/[facility] ALT 16 7 - 55 Units/L [facility] AST 26 10 - 50 Units/L [facility] Blood 08/21/2024 3:52 PM CDT 08/21/2024 4:16 PM CDT us Lisa Tejeda COMPLEX HUMAN RESOURCES MANAGER LAB BLOOD ORDERABLES Lila l Result Performing Organization Address City/[facility]/ZIP Co de Phone Number [facility] [place] [address] * POC Blood Gas and Chemistries, Arterial - (08/21/2024 3:50 PM CDT) Lactate POC 2.0 0.7 - 2.0 mmol/L Blood 08/21/2024 3:50 PM CDT 08/21/2024 3:50 PM CDT us Gorge Vaugahn MD PhD LAB POCT ORDERABLES - DEVICE Final Result [facility] [place] [address] * Critical Result Callback Hematology (08/21/2024 3:45 PM CDT) Date Notified [id number] Time Notified [id number] [facility] TestName INR [facility] Called/Read Back Luis COREY Credentials RN [facility] Called By PD [facility] Blood 08/21/2024 3:45 PM CDT 08/21/2024 4:06 PM CDT Lisa Tejeda NP LAB BLOOD ORDERABLES Lila l Result Performing Organization Address City/[facility]/ZIP Co de Phone Number [facility] [place] [address] * Blood culture Blood Peripheral (08/21/2024 3:45 PM CDT) Report Final Report: No growth Blood (Peripheral) 08/21/2024 3:45 PM CDT 08/21/2024 4:33 PM CDT Narrative [facility] - 08/26/2024 7:00 AM CDT 1. Blood [...] performance characteristics have been verified by the [facility]. For questions about this culture, contact the Microbiology Laboratory at [phone]. Interpretive data was last revised on 24. Lisa Tejeda NP LAB MICROBIOLOGY - GENERA L ORDERABLES Final Result Performing Organization Address [facility]/ZIP Co de Phone Number [facility] [place] [address] * Blood culture Blood Peripheral (08/21/2024 3:45 [...] performance characteristics have been verified by the [facility]. For questions about this culture, contact the Microbiology Laboratory at [phone]. Interpretive data was last revised on 24. Lisa Tejeda NP LAB MICROBIOLOGY - GENERA L ORDERABLES Final Result [facility] [place] [address] * (ABNORMAL) aPTT (08/21/2024 3:45 PM CDT) [...] ORDERABLES Lila l Result Performing Organization Address [facility] Co de Phone Number [facility] [place] [address] * (ABNORMAL) Thrombin time (08/21/2024 3:45 PM CDT) Thrombin time 15.2(H) 10.0 - 15.0 sec Blood 08/21/2024 3:45 PM CDT 08/21/2024 4:06 PM CDT Lisa Tejeda NP LAB BLOOD ORDERABLES Lila l Result Performing Organization Address [facility] de Phone Number [facility] [place] [address] * (ABNORMAL) Protime-INR (08/21/2024 3:45 PM CDT) PT >100.0(H) 9.7 - 13.0 sec INR >9.00(C) 0.90 - 1.20 [facility] Comment: No clot detected in sample. Verified by reflex testing. Interpretive data Oral anticoagulant therapeutic ranges: Venous thromboembolism prophylaxis or treatment: 2.0-3.0 CARDIOLOGY Standard range: 2.0-3.0 High-intensity range: 2.5-3.5 Refer to indication-specific guidelines for appropriate target ranges for prosthetic heart valve replacement. Current interpretive data was last revised on 2019. Blood 08/21/2024 3:45 PM CDT 08/21/2024 4:06 PM CDT Lisa J. Erckmann COMPLEX HUMAN RESOURCES MANAGER LAB BLOOD ORDERABLES Lila l Result Performing Organization Address City/[facility]/ZIP Co de Phone Number [facility] [place] [address] * Urinalysis reflex to microscopic (08/20/2024 1:27 AM CDT) Color, ur Straw Yellow Clarity, ur Clear Clear [facility] Specific gravity, ur 1.022 1.003 - 1.030 [facility] pH, urine 6.0 [facility] Comment: Interpretive Data U rine pH is affected by diet, medications, systemic acid-base disturbances, and renal tubular function. pH may affect urinary stone formation. For example, urine pH below 6.0 may help reduce the tendency for calcium phosphate stones and pH greater than 6.0 may reduce the tendency for uric acid stone formation. Source: [facility] Current Interpretive Data was last revised on 2017 Protein, ur ql Negative Negative [facility] Glucose, ur ql Negative Negative [facility] Ketones, ur Negative Negative [facility] Bilirubin, ur Negative Negative [facility] Blood, ur Negative Negative [facility] Urobilinogen, ur <2.0 <2.0 mg/dL [facility] Nitrite, ur Negative Negative [facility] Leukocyte esterase, ur Negative Negative [facility] UA reflex comment Reflex conditions for microscopic UA not met. [facility] Urine 08/20/2024 1:27 AM CDT 08/20/2024 1:48 AM CDT Leela Sandhu COMPLEX HUMAN RESOURCES MANAGER LAB URINE ORDERABLES Lila l Result Performing Organization Address City/[facility]/ZIP Co de Phone Number [facility] [place] [address] * Urine culture Urine, clean voided (08/20/2024 1:27 AM CDT) Report Final Report: No growth Urine, clean voided 08/20/2024 1:27 AM CDT 08/20/2024 11:58 AM CDT Narrative [facility] - 08/21/2024 1:10 PM CDT Indications for Culture:->Other (specify) Other Indication:->immunocompromised Testing performed by [facility] ([phone]) us Leela Sandhu NP LAB MICROBIOLOGY - GENERA L ORDERABLES Final Result Performing Organization Address [facility] Co de Phone Number [facility] [place] [address] * (ABNORMAL) POC Blood Gas and Chemistries, Arterial - (08/19/2024 9:48 PM CDT) [facility] Lactate POC 2.1(H) 0.7 - 2.0 mmol/L Blood 08/19/2024 9:48 PM CDT 08/19/2024 9:48 PM CDT us Gilberto Martinez MD LAB POCT ORDERABLES - DEVICE Final Result Performing Organization Address [facility] Co de Phone Number [facility] [place] [address] * ECG 12 lead (08/19/2024 9:34 PM CDT) Pathologist [facility] Ventricular Rate EKG/Min 60 BPM [facility] Atrial Rate 60 BPM [facility] DC-Interval (MSEC) 210 ms [facility] QRS-Interval (MSEC) 98 ms [facility] QT-Interval (MSEC) 462 ms [facility] QTc 462 ms [facility] P [place] 15 degrees [facility] R [place] -29 degrees [facility] T [place] 155 degrees [facility] Diagnosis Atrial-paced rhythm with prolonged AV conduction ST & T wave abnormality, consider lateral ischemia Abnormal ECG When compared with ECG of 08-JUN-2024 07:48, No significant change was found Confirmed by RL BHATT M.D ([id number]) on 08/20/2024 5:01:40 PM [facility] 08/19/2024 9:34 PM CDT 08/20/2024 5:01 PM CDT us Leela Sandhu COMPLEX HUMAN RESOURCES MANAGER ECG ORDERABLES Final Res ult Performing Organization Address City/[facility]/ZIP Co de Phone Number [facility] * eGFR (08/19/2024 9:03 PM [...] ORDERABLES Lila l Result Performing Organization Address City/[facility]/ZIP Co de Phone Number [facility] [place] [address] * (ABNORMAL) Differential, auto (08/19/2024 9:03 PM CDT) Neutrophil abs 6.02 1.50 - 6.50 K/cumm Imm gran abs 0.04 0.00 - 0.10 K/cumm [facility] Lymphocyte abs 0.23(L) 0.80 - 3.30 K/cumm [facility] Monocyte abs 0.48 0.20 - 0.80 K/cumm [facility] Eosinophil abs 0.01 0.00 - 0.50 K/cumm [facility] Basophil abs 0.00 0.00 - 0.10 K/cumm [facility] Neutrophil pct 88.8 % [facility] Comment: Interpretive Data Percent cell count reference ranges are not reported, since discordance with absolute values may lead to misinterpretation of CBC data. Current Interpretive Data was last revised on 2017. Imm gran pct 0.6 % [facility] Comment: Interpretive Data Percent cell count reference ranges are not reported, since discordance with absolute values may lead to misinterpretation of CBC data. Current Interpretive Data was last revised on 2017. Lymphocyte pct 3.4 % [facility] Comment: Interpretive Data Percent cell count reference ranges are not reported, since discordance with absolute values may lead to misinterpretation of CBC data. Current Interpretive Data was last revised on 2017. Monocyte pct 7.1 % [facility] Comment: Interpretive Data Percent cell count reference ranges are not reported, since discordance with absolute values may lead to misinterpretation of CBC data. Current Interpretive Data was last revised on 2017. Eosinophil pct 0.1 % [facility] Comment: Interpretive Data Percent cell count reference ranges are not reported, since discordance with absolute values may lead to misinterpretation of CBC data. Current Interpretive Data was last revised on 2017. Basophil pct 0.0 % [facility] Comment: Interpretive Data Percent cell count reference ranges are not reported, since discordance with absolute values may lead to misinterpretation of CBC data. Current Interpretive Data was last revised on 2017. Blood 08/19/2024 9:03 PM CDT 08/19/2024 9:56 PM CDT us Leela Sandhu COMPLEX HUMAN RESOURCES MANAGER LAB BLOOD ORDERABLES Lila dawson Result [facility] [place] [address] * Respiratory pathogen panel Nasopharyngeal (08/19/2024 9:03 PM CDT) Influenza A RNA Not Detected Not Detected Influenza B RNA Not Detected Not Detected [facility] RSV RNA Not Detected Not Detected [facility] COVID-19 RNA Not Detected Not Detected [facility] Coronavirus 229E RNA Not Detected Not Detected [facility] Coronavirus HKU1 RNA Not Detected Not Detected [facility] Coronavirus NL63 RNA Not Detected Not Detected [facility] Coronavirus OC43 RNA Not Detected Not Detected [facility] Adenovirus DNA Not Detected Not Detected [facility] Metapneumovirus RNA Not Detected Not Detected [facility] Rhinovirus/Enterov irus RNA Not Detected Not Detected [facility] Parainfluenza 1 RNA Not Detected Not Detected [facility] Parainfluenza 2 RNA Not Detected Not Detected [facility] Parainfluenza 3 RNA Not Detected Not Detected [facility] Parainfluenza 4 RNA Not Detected Not Detected [facility] B. pertussis DNA Not Detected Not Detected [facility] B. parapertussis DNA Not Detected Not Detected [facility] C. pneumoniae DNA Not Detected Not Detected [facility] M. pneumoniae DNA Not Detected Not Detected [facility] Nasopharyngeal 08/19/2024 9: 03 PM CDT 08/19/2024 10:21 PM CDT Narrative [facility] - 08/19/2024 11:23 PM CDT Is the Patient experiencing symptoms consistent with COVID?->No Surveillance testing for transplant patient?->No Interpretive Data The [employer] FilmArray Respiratory Panel (RP2.1) assay is a [...] assay has FDA clearance for testing of COMPLEX HUMAN RESOURCES MANAGER swabs. The performance of additional specimen types has been assessed by the performing laboratory. The performance characteristics of this assay have been determined by [facility] Disease [facility]. Current interpretive data was last revised on 22. us Leela Sandhu COMPLEX HUMAN RESOURCES MANAGER LAB MICROBIOLOGY - GENERA L ORDERABLES Final Result [facility] [place] [address] * (ABNORMAL) CBC with auto differential (08/19/2024 9:03 PM CDT) [facility] Signature WBC 6.78 3.80 - 9.90 K/cumm Hgb 10.2(L) 13.0 - 17.5 g/dL [facility] Hct 28.4(L) 38.9 - 50.3 % [facility] Plt 193 150 - 400 K/cumm [facility] MPV 10.1 9.1 - 12.3 fL [facility] RBC 2.78(L) 4.30 - 5.80 M/cumm [facility] MCV 102.2(H) 81.3 - 96.4 fL [facility] MCH 36.7(H) 27.1 - 33.3 pg [facility] MCHC 35.9(H) 32.3 - 35.7 g/dL [facility] RDW CV 17.2(H) 11.1 - 14.9 % [facility] RDW SD 59.2(H) 35.7 - 48.1 fL [facility] NRBC abs 0.00 0.00 - 0.01 K/cumm [facility] Blood 08/19/2024 9:03 PM CDT 08/19/2024 9:56 PM CDT Leela Sandhu NP LAB BLOOD ORDERABLES Lila l Result Performing Organization Address [facility] de Phone Number [facility] [place] [address] * Phosphorus (08/19/2024 9:03 PM CDT) Phosphorus, pl 3.1 2.3 - 4.5 mg/dL Blood 08/19/2024 9:03 PM CDT 08/19/2024 9:56 PM CDT Gilberto Martinez MD LAB BLOOD ORDERABLES Final Re sult Performing Organization Address [facility] de Phone Number [facility] [place] [address] * Magnesium (08/19/2024 9:03 PM CDT) Magnesium 1.8 1.4 - 2.5 mg/dL Blood 08/19/2024 9:03 PM CDT 08/19/2024 9:56 PM CDT Gilberto Martinez MD LAB BLOOD ORDERABLES Final Re sult Performing Organization Address [facility] Co de Phone Number [facility] [place] [address] * Lipase (08/19/2024 9:03 PM CDT) [facility] Lipase 42 10 - 99 Units/L Blood 08/19/2024 9:03 PM CDT 08/19/2024 9:56 PM CDT us Leela Sandhu COMPLEX HUMAN RESOURCES MANAGER LAB BLOOD ORDERABLES Lila l Result Performing Organization Address [facility] [place] [address] * (ABNORMAL) Lactate dehydrogenase (LD) (08/19/2024 9:03 PM CDT) [facility] Lactate dehydrogenase (LDH) 434(H) 100 - 250 Units/L Blood 08/19/2024 9:03 PM CDT 08/19/2024 9:56 PM CDT us Leela Sandhu COMPLEX HUMAN RESOURCES MANAGER LAB BLOOD ORDERABLES Lila l Result Performing Organization Address [facility] de Phone Number [facility] [place] [address] * Amylase (08/19/2024 9:03 PM CDT) [facility] Amylase 92 30 - 99 Units/L Blood 08/19/2024 9:03 PM CDT 08/19/2024 9:56 PM CDT us Leela Sandhu COMPLEX HUMAN RESOURCES MANAGER LAB BLOOD ORDERABLES Lila l Result Performing Organization Address [facility] Co de Phone Number [facility] [place] [address] * (ABNORMAL) Comprehensive metabolic panel (08/19/2024 9:03 PM CDT) Sodium 133(L) 135 - 145 mmol/L Potassium, pl 3.9 3.3 - 4.9 mmol/L [facility] Chloride 97 97 - 110 mmol/L [facility] CO2 24 22 - 32 mmol/L [facility] Anion gap 12 2 - 15 mmol/L [facility] BUN 44(H) 6 - 25 mg/dL [facility] Creatinine 1.17 0.80 - 1.30 mg/dL [facility] Glucose 139 70 - 199 mg/dL [facility] Comment: Interpretive Data Fasting glucose [...] 2022. Calcium 8.9 8.5 - 10.3 mg/dL [facility] Bilirubin, total 1.2 0.1 - 1.2 mg/dL [facility] Protein, pl 6.2(L) 6.5 - 8.5 g/dL [facility] Albumin 3.8 3.5 - 5.0 g/dL [facility] Alk phos 91 40 - 130 Units/L [facility] ALT 21 7 - 55 Units/L [facility] AST 32 10 - 50 Units/L [facility] Blood 08/19/2024 9:03 PM CDT 08/19/2024 9:56 PM CDT us Leela Sandhu COMPLEX HUMAN RESOURCES MANAGER LAB BLOOD ORDERABLES Lila dawson Result [facility] [place] [address] * DEVICE CHECK - REMOTE (08/17/2024 10:56 [...] to JC Episodes last 90 days/Comments: AF [place] <1 %, longest duration 1 minute 54 seconds. No new ventricular events . NORMAL DEVICE FUNCTION PROGRAMMED MEDICATIONS: Anti-coagulant(s): Coumadin Anti-arrhythmic(s): Norvasc 5 mg daily, sotalol 80 mg twice a day PLAN: 1) Whipple Pacemaker evaluation 2) Whipple remote transmission scheduled in 3 months. 3) Programming appropriate for device measurements Karolyn Escoto, RN Zane Richey III, MD [facility] CARDIAC SERVICES PROCEDURES Final Result * (ABNORMAL) Protime-INR (08/17/2024 10:34 AM CDT) INR 2.8(H) [facility] Comment: Reference Range 0.9-1.1 Moderate-intensity Warfarin Therapy 2.0-3.0 Higher-intensity Warfarin Therapy 3.0-4.0 PT 27.6(H) 9.0 - 11.5 sec [facility] Comment: For additional information, please refer to http://education.[employer]/faq/KKO733 (This link is being provided for informational/ educational purposes only.) Blood 08/17/2024 10:3 4 AM CDT 08/17/2024 10:34 AM CDT Narrative [facility] - 08/17/2024 6:58 PM CDT FASTING:NO FASTING: NO us Chris Hart MD LAB BLOOD ORDERABLES Final Result Performing Organization Address [facility] [facility] Co de Phone Number [facility] [address] [place] [address] * [place] ERCP Biliary Duct (08/07/2024 3:03 PM CDT) Narrative [facility] - 08/07/2024 3:03 PM CDT The images from this study are not interpreted by Radiology. Please refer to the physician's procedure / OR operative note. us Chris Holcomb MD IMG FLUOROSCOPY PROCEDURES Final Result Performing Organization Address [facility] Co de Phone Number [email or web address] * ERCP [...] Two biliary stents were visible on the emblem cutter film. The esophagus was successfully intubated under [...] * (ABNORMAL) Hemoglobin A1c (06/22/2024 2:10 PM MANAGER PAYMENT) HbA1c 7.9(H) 5.1 - 5.6 % [facility] Comment: HBA1C 5.1 - 5.6 = NORMAL HBA1C 5.7 - 6.4 = PREDIABETES HBA1C >=6.5 = PROVISIONAL DIAGNOSIS OF DIABETES Estimated Average Glucose 180 mg/dL [facility] Blood 06/22/2024 2:10 PM MANAGER PAYMENT 06/22/2024 3:15 PM MANAGER PAYMENT Result [facility] Lex Perez MD LAB BLOOD ORDERABLES Final Resu lt Performing Organization Address City/State/[facility] Co de Phone Number [facility] * Hepatitis C antibody Blood (06/08/2024 7:28 AM MANAGER PAYMENT) Hep C Ab Nonreactive Nonreactive Comment:Antibodies to HCV no t detected. Does NOT exclude the possibility of recent exposure to HCV. Current interpretive data was last revised on 22 Blood 06/08/2024 7:28 AM MANAGER PAYMENT 06/08/2024 8:06 AM MANAGER PAYMENT Narrative [facility] - 06/08/2024 8:55 AM MANAGER PAYMENT Please add the following comment to each lab: This lab is being obtained as part of a liver transplant evaluation, is time sensitive, and should only be drawn during the evaluation visit at [facility]. Katie Reeder MD LAB MICROBIOLOGY - GENERAL ORDER DEMETRIO Final Result [facility] [place] [address] * (ABNORMAL) Lipid panel (06/08/2024 7:28 AM MANAGER PAYMENT) Cholesterol 176 30 - 199 mg/dL Comment: [...] on 2017. Triglycerides 266(H) <=149 mg/dL [facility] Comment: Interpretive Data Ages < or = [...] revised on 2017. HDL 70 >=40 mg/dL [facility] Comment: Interpretive Data Ages < [...] on 2017. LDL, calculated 64 <=129 mg/dL [facility] Comment: Interpretive Data Ages < [...] revised on 2023. Non-HDL Cholesterol 106 mg/dL [facility] Comment: Interpretive Data Ages < [...] last revised on 2017. Chol/HDL ratio 3 [facility] Blood 06/08/2024 7:28 AM MANAGER PAYMENT 06/08/2024 8:07 AM MANAGER PAYMENT Narrative [facility] - 06/08/2024 8:54 AM MANAGER PAYMENT This lab is being obtained as part of a liver transplant evaluation, is time sensitive, and should only be drawn during the evaluation visit at [facility] Lab. us Katie Reeder MD LAB BLOOD ORDERABLES Final Resul t [facility] [place] [address] from Last 3 Months or Most Recently Relevant to Health Maintenance Insurance [employer] MEDICARE HMO [employer] MEDICARE HMO TRANSPLANT [employer] MEDICARE RISK Advance Directives For more information, please contact: [phone] Documents on File Type Date Recorded Patient Digital Producer Expl anation ADVANCE DIRECTIVE 01/23/2024 3:15 PM POWER OF TRANSCRIPTION TYPIST-MEDICAL ADVANCE DIRECTIVE 01/19/2024 12:41 PM MORALES R OF TRANSCRIPTION TYPIST-MEDICAL * Full Code (Latest Code Status on [...] 9:19 AM 05/18/2024 5:50 PM Care Teams Project Associate Relationship Specialty Start Date End Date Gilberto Martinez MD [address] [address] PCP - General 07/11/16 Zane Richey III, MD [address] [place] [address] Consulting Physician Cardiology 05/18/21 Raudel Childers MD [address] [facility] [place] [id number] [place] [address] Consulting Physician Colon and Rectal Surgery 12/26/21 Chris Hart MD [address] [facility] [address] [place] [address] Dental Officer Cardiology 03/17/24 Charlee Mcmillan RMA Surgical Prehabilitation and Readiness (SPAR) Coordinator 06/11/24 Agustina Li MD PhD [id number] [place] [address] Medical Oncologist/Train Crew Member Medical Oncology 09/09/24
--- OUTSIDE RECORDS SUMMARY | 2024-11-05 19:15 | XMS_ITS | Data Portability ---
Author Organization Gilberto Tomlinson [employer] Address [address] [place] [address] Care Team Providers Care Engineering Teacher Name Role Phone RAMONA PAULSON Skilled Labor FREEDOM BELL Gage Designer [address] Sleep Medicine [phone] Assessment Encounter Date Assessment Date Assessment LastModified by Organization Details LastModified Time 11/27/2023 11/27/2023 1. Liver tumor. Elevated CEA levels were observed, while kidney function remains good. A referral will be made to the [facility] for a second opinion. 2. Insomnia. Trazodone and Ambien have proven ineffective in managing his insomnia. [id number] melatonin was suggested for nightly use. 3. [...] function remains normal. A referral to the [facility] will be made to explore surgical resection [...] days. The prescription will be sent to [facility] pharmacy on [address]. 4. Anemia. His hemoglobin is low, which [...] sinus rhythm but recent evaluations by a linux network administrator indicated no immediate concerns. He is currently taking metoprolol, which can cause tiredness and is advised to take it at night. 6. Health Maintenance. He is advised to get the flu shot and the new COVID-19 vaccine. These will be administered during his next visit in February. Follow-up The patient will follow up in February 2024. [email or web address] Not available 01/15/2024 17:41:22 02/05/2024 02/05/2024 1. [...] breathing. A letter has been sent to [facility] regarding his condition. 2. Leaky heart valve. [...] advised to schedule an appointment with his medical office coordinator, Dr. Remington Najera, for a comprehensive eye [...] Lab PSA, serum or plasma 2023 024 [facility], [address], [place], [address], 09:32:51 urinalysis, dipstick 2023 024 [place] [id number] 8 Main Office, [address], [address], [place], [address], 4 12:44:30 CMP, serum or plasma 2023 024 [facility], [address], [place], [address], 4 19:49:46 hepatitis panel (A+B+C), acute, serum 2023 024 [facility], [address], [place], [address], 4 19:49:46 bilirubin fractions panel, QN, serum or plasma 2023 [facility], [address], [place], [address], 4 19:49:46 CBC w/ auto diff 2023 024 [facility], [address], [place], [address], 4 19:49:44 urinalysis, complete 2023 024 [facility], [address], [place], [address], 4 19:49:47 uric acid, serum or plasma 2023 024 [facility], [address], [place], [address], 4 19:49:45 Referral None recorded. Procedures body composition analysis (PROC) 2023 024 [place] [id number] Main Office, [address], [address], [place], [address], 4 12:12:05 gait test (PROC) 2023 024 [email or web address] 8 Main Office, [address], [address], [place], [address], 4 12:12:34 Surgeries None recorded. Imaging electrocard iogram 2023 024 [email or web address] Main Office, [address], [address], [place], [address], 4 15:50:17 audiogram 2023 024 [email or web address] Main Office, [address], [address], [place], [address], 4 15:50:17 US, abdomen - Paoinless jaundice- labs pending 2023 024 [facility] [address], [place], [address], 5 05:01:19 Medication Orders ramelteon 8 mg tablet 2023 024 [email or web address] 8 [facility]/Pharmacy #[id number], [address] , [place], [address], 4 14:51:31 hydroxyzine HCl 25 mg tablet 2023 024 [email or web address] 9 [facility]/Pharmacy #[id number], [address], [place], [address], 4 11:30:10 Patient TargetsNo targets recorded. Patient Instructions Encounter Date Encounter Id Patient Instructions Last Modified By Organization Details Last Modified Time 11/27/2023 [id number] 1. Follow throug h with the referral to the [facility] for a second opinion regarding the liver tumor. 2. Start taking [id number] melatonin each night to help manage your insomnia. 3. Continue taking metoprolol as prescribed for atrial fibrillation. [id number] Not available 11/27/2023 11:03:09 Laboratory Studi es CEA was elevated. Kidney function was good. [email or web address] Not available 11/27/2023 11:03:08 01/15/2024 [id number] 1. Continue your current chemotherapy regimen: two weeks on, one week off, for a total of 6 months. 2. Watch for skin lesions and manage them as recommended by your healthcare team. 3. Attend the referral appointment with Dr. Contreras at [facility] to explore surgical resection options. 4. Schedule and complete imaging in three months to assess the tumor. 5. Maintain physical activity, including walking. 6. Ensure adequate calcium intake to support bone health. 7. Take Ramelteon at bedtime for the next 30 days for insomnia. Collect the prescription from [facility] pharmacy on [address]. 8. Increase protein intake in your diet [...] osteoporosis. [id number] Not available 01/15/2024 11:53:42 02/05/2024 [id number] aortic valve regurgitation: care instructions [email or web address] Not available 07/30/2024 13:42:39 1. Monitor your [...] moderate. [id number] Not available 02/05/2024 14:13:55 04/24/2024 [id number] spirometry testing* [email or web address] Not avai jaz 04/24/2024 12:09:59 visual acuity* [email or web address] Not available 04/24/2024 12:10:18 (RENAN) ankle brac hial index* Not available 04/24/2024 12:11:07 albarran anxiety inventory* Not available 04/24/2024 12:11:51 epworth sleepine ss scale* [email or web address] Not available 04/24/2024 12:11:33 sectional belt mold assembler test* Not available 04/06 12:13:32 Cognitive Assess ment [...] . 2. Schedule an appointment with your medical office coordinator, Dr. Remington Najera, for a comprehensive eye [...] production. 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 RENAN: Your ankle [...] who adhere to this style of eating intermediate school teacher. Mediterranean eating involves a focus on nuts, [...] and tomatoes. Curcumin, Turmeric, or newman: This Peruvian spice is available in capsule form. This [...] can review getting another as 2026 approaches. [email or web address] Not available 04/26/2024 11:09:52 Reason for Referral None Reported. Results Created Date Observation Date Name Description Value Unit Range Abnormal Flag Note LastModifiedBy Organization Detail LastModifiedTime 04/24/2004/24/2024 Cogni tive Asses sment Batte ry* braincheck - assess 96 0-200 Cogni tive impai rment : unlik heavenly Not Available Not Available 04/24/2024 11:13:20 04/24/20 24 04/24/2024 Cogni tive Asses sment Batte ry* braincheck - assess population percentile 40 % 0-100 Parker ge Not Available Not Available 04/24/2024 11:13:20 04/24/20 24 04/24/2024 Cogni tive Asses sment Batte ry* trails A 99 0-200 Impai rment : unlik heavenly Not Available Not Available 04/24/2024 11:13:20 04/24/20 24 04/24/2024 Cogni tive Asses sment Batte ry* trails A population percentile 48 % 0-100 Parker ge Not Available Not Available 04/24/2024 11:13:20 [...] symbol substitution population percentile 42 % 0-100 Parker ge Not Available Not Available 04/24/2024 11:13:20 04/24/20 24 04/24/2024 Cogni tive Asses sment Batte ry* immediate recognition 103 0-200 Impai rment : unlik heavenly Not Available Not Available 04/24/2024 11:13:20 04/24/20 24 04/24/2024 Cogni tive Asses sment Batte ry* immediate recognition population percentile 57 % 0-100 Parker ge Not Available Not Available 04/24/2024 11:13:20 04/24/20 24 04/24/2024 Cogni tive Asses sment Batte ry* delayed recognition 108 0-200 Impai rment : unlik heavenly Not Available Not Available 04/24/2024 11:13:20 04/24/20 24 04/24/2024 Cogni tive Asses sment Batte ry* delayed recognition population percentile 71 % 0-100 Parker ge Not Available Not Available 04/24/2024 11:13:20 11/11/19 24 11/11/2023 CBC W/DIF F WBC 4.9 10'3/ uL 3.5-10 .5 Not Available [facility] (Lab) [address], [place], [address], 11/12/2023 19:49:44 11/11/19 24 11/11/2023 CBC W/DIF F RBC 4.06 10'6/ uL (based on docume nted legal sex) 4.30-5 .80 low Not Available [facility] (Lab) [address], [place], [address], 11/12/2023 19:49:44 11/11/19 24 11/11/2023 CBC W/DIF F HGB 13.2 g/dL (based on docume nted legal sex) 13.0-1 7.5 Not Available [facility] (Lab) [address], [place], [address], 11/12/2023 19:49:44 11/11/19 24 11/11/2023 CBC W/DIF F HCT 39.0 % (based on docume nted legal sex) 38.0-5 0.0 Not Available [facility] (Lab) [address], [place], [address], 11/12/2023 19:49:44 11/11/19 24 11/11/2023 CBC W/DIF F MCV 96.1 fL 80.0-9 9.0 Not Available [facility] (Lab) [address], [place], [address], 11/12/2023 19:49:44 11/11/19 24 11/11/2023 CBC W/DIF F MCH 32.5 pg 27.0-3 4.0 Not Available [facility] (Lab) [address] [place], [address], 11/12/2023 19:49:44 11/11/19 24 11/11/2023 CBC W/DIF F MCHC 33.8 g/dL 32.0-3 5.5 Not Available [facility] (Lab) [address] [place], [address], 11/12/2023 19:49:44 11/11/19 24 11/11/2023 CBC W/DIF F RDW 14.8 % 11.0-1 5.0 Not Available [facility] (Lab) [address] [place], [address], 11/12/2023 19:49:44 11/11/19 24 11/11/2023 CBC W/DIF F plt 258 10'3/ uL 150-40 0 Not Available [facility] (Lab) [address], [place], [address], 11/12/2023 19:49:44 11/11/19 24 11/11/2023 CBC W/DIF F MPV 12.1 fL 8.8-12 .1 Not Available [facility] (Lab) [address], [place], [address], 11/12/2023 19:49:44 11/11/19 24 11/11/2023 CBC W/DIF F NRBC's 0.0 % 0.0 Not Available [facility] (Lab) [address], [place], [address], 11/12/2023 19:49:44 11/11/19 24 11/11/2023 CBC W/DIF F absolute NRBCs 0.0 10'3/ uL no refere nce range establ ished Not Available [facility] (Lab) [address], [place], [address], 11/12/2023 19:49:44 11/11/19 24 11/11/2023 CBC W/DIF F neutrophils 69.6 % 34.0-7 3.0 Not Available [facility] (Lab) [address], [place], [address], 11/12/2023 19:49:44 11/11/19 24 11/11/2023 CBC W/DIF F lymphocytes 16.5 % 15.0-5 0.0 Not Available [facility] (Lab) [address], [place], [address], 11/12/2023 19:49:44 11/11/19 24 11/11/2023 CBC W/DIF F monocytes 11.5 % 1.0-15 .0 Not Available [facility] (Lab) [address], [place], [address], 11/12/2023 19:49:44 11/11/19 24 11/11/2023 CBC W/DIF F eosinophils 1.6 % 0.0-8. 0 Not Available [facility] (Lab) [address], [place], [address], 11/12/2023 19:49:44 11/11/19 24 11/11/2023 CBC W/DIF F basophils 0.4 % 0.0-2. 0 Not Available [facility] (Lab) [address], [place], [address], 11/12/2023 19:49:44 11/11/19 24 11/11/2023 CBC W/DIF F immature granulocytes 0.4 % no define d refere nce range Not Available [facility] (Lab) [address], [place], [address], 11/12/2023 19:49:44 11/11/19 24 11/11/2023 CBC W/DIF F absolute neutrophils 3.4 10'3/ uL 1.5-8. 0 Not Available [facility] (Lab) [address], [place], [address], 11/12/2023 19:49:44 11/11/19 24 11/11/2023 CBC W/DIF F absolute lymphocytes 0.8 10'3/ uL 1.0-4. 0 low Not Available [facility] (Lab) [address], [place], [address], 11/12/2023 19:49:44 11/11/19 24 11/11/2023 CBC W/DIF F absolute monocytes 0.6 10'3/ uL 0.2-1. 0 Not Available [facility] (Lab) [address] [place], [address], 11/12/2023 19:49:44 11/11/19 24 11/11/2023 CBC W/DIF F absolute eosinophils 0.1 10'3/ uL 0.0-0. 6 Not Available [facility] (Lab) [address], [place], [address], 11/12/2023 19:49:44 11/11/19 24 11/11/2023 CBC W/DIF F absolute basophils 0.0 10'3/ uL 0.0-0. 3 Not Available [facility] (Lab) [address], [place], [address], 11/12/2023 19:49:44 11/11/19 24 11/11/2023 CBC W/DIF [...] resul ts are expec sunil. Not Available [facility] (Lab) [address], [place], [address], 11/12/2023 19:49:44 11/11/19 24 11/11/2023 URIC ACID uric acid 6.2 mg/dL 4.4-7. 6 Not Available [facility] (Lab) [address], [place], [address], 11/12/2023 19:49:45 11/11/19 24 11/11/2023 CMP(C OMPRE HENSI VE METAB OLIC PANEL ) sodium 141 mmol/ L 133-14 6 Not Available [facility] (Lab) [address], [place], [address], 11/12/2023 19:49:45 11/11/19 24 11/11/2023 CMP(C OMPRE HENSI VE METAB OLIC PANEL ) potassium 3.3 mmol/ L 3.5-5. 1 low Not Available [facility] (Lab) [address], [place], [address], 11/12/2023 19:49:45 11/11/19 24 11/11/2023 CMP(C OMPRE HENSI VE METAB OLIC PANEL ) chloride 100 mmol/ L 98-107 Not Available [facility] (Lab) [address], [place], [address], 11/12/2023 19:49:45 11/11/19 24 11/11/2023 CMP(C OMPRE HENSI VE METAB OLIC PANEL ) carbon dioxide 29 mmol/ L 21-31 Not Available [facility] (Lab) [address], [place], [address], 11/12/2023 19:49:45 11/11/19 24 11/11/2023 CMP(C OMPRE HENSI VE METAB OLIC PANEL ) anion gap 12 mmol/ L 4-13 Not Available [facility] (Lab) [address], [place], [address], 11/12/2023 19:49:45 11/11/19 24 11/11/2023 CMP(C OMPRE HENSI VE METAB OLIC PANEL ) blood urea nitrogen 25 mg/dL 7-25 Not Available [facility] (Lab) [address], [place], [address], 11/12/2023 19:49:45 11/11/19 24 11/11/2023 CMP(C OMPRE HENSI VE METAB OLIC PANEL ) creatinine 1.01 mg/dL 0.60-1 .30 Not Available [facility] (Lab) [address], [place], [address], 11/12/2023 19:49:45 11/11/19 24 11/11/2023 CMP(C OMPRE HENSI VE METAB OLIC PANEL ) egfrcr (CKD-epi 2020) 78 mL/mi n/1.7 3_m2 >=60 Not Available [facility] (Lab) [address], [place], [address], 11/12/2023 19:49:45 11/11/19 24 11/11/2023 CMP(C OMPRE HENSI VE METAB OLIC PANEL ) calcium 9.1 mg/dL 8.3-10 .5 Not Available [facility] (Lab) [address], [place], [address], 11/12/2023 19:49:45 11/11/19 24 11/11/2023 CMP(C OMPRE HENSI VE METAB OLIC PANEL ) glucose 103 mg/dL 70-100 high Not Available [facility] (Lab) [address], [place], [address], 11/12/2023 19:49:45 11/11/19 24 11/11/2023 CMP(C OMPRE HENSI VE METAB OLIC PANEL ) protein, total 6.4 g/dL 6.4-8. 3 Not Available [facility] (Lab) [address], [place], [address], 11/12/2023 19:49:45 11/11/19 24 11/11/2023 CMP(C OMPRE HENSI VE METAB OLIC PANEL ) albumin 4.4 g/dL 3.5-5. 0 Not Available [facility] (Lab) [address], [place], [address], 11/12/2023 19:49:45 11/11/19 24 11/11/2023 CMP(C OMPRE HENSI VE METAB OLIC PANEL ) ALT 151 units /L 11-51 high Not Available [facility] (Lab) [address], [place], [address], 11/12/2023 19:49:45 11/11/19 24 11/11/2023 CMP(C OMPRE HENSI VE METAB OLIC PANEL ) alkaline phosphatase 452 units /L 34-104 high Not Available [facility] (Lab) [address] [place], [address], 11/12/2023 19:49:45 11/11/19 24 11/11/2023 CMP(C OMPRE HENSI VE METAB OLIC PANEL ) AST 105 units /L 13-39 high Not Available [facility] (Lab) [address] [place], [address], 11/12/2023 19:49:45 11/11/19 24 11/11/2023 CMP(C OMPRE HENSI VE METAB OLIC PANEL ) bilirubin, total 12.7 mg/dL 0.2-1. 2 high Not Available [facility] (Lab) [address], [place], [address], 11/12/2023 19:49:45 11/11/19 24 11/11/2023 BILIR UBIN, TOTAL AND DIREC T WITH INDIR ECT CALC. bilirubin, total 12.7 mg/dL 0.2-1. 2 high Not Available [facility] (Lab) [address], [place], [address], 11/12/2023 19:49:46 11/11/19 24 11/11/2023 BILIR UBIN, TOTAL AND DIREC T WITH INDIR ECT CALC. direct bilirubin 7.4 mg/dL 0.0-0. 2 high Not Available [facility] (Lab) [address], [place], [address], 11/12/2023 19:49:46 11/11/19 24 11/11/2023 BILIR UBIN, TOTAL AND DIREC T WITH INDIR ECT CALC. bilirubin, indirect 5.3 mg/dL Not Available [facility] (Lab) [address] [place], [address], 11/12/2023 19:49:46 11/11/19 24 11/11/2023 HEPAT ITIS PANEL ACUTE (AMA) hepatitis B surface antigen Non-re active non-re active This assay was perfo rmed using [employer] n reage nts and test kits. Value s obtai morris with other assay metho ds or kits canno t be used inter love eably . Not Available [facility] (Lab) [address], [place], [address], 11/12/2023 19:49:46 11/11/19 24 11/11/2023 HEPAT ITIS PANEL ACUTE (AMA) hepatitis C antibody Non-re active non-re active Antib odies to HCV Not Detec sunil, does not exclu de the possi bilit y of expos ure to HCV. Not Available [facility] (Lab) [address], [place], [address], 11/12/2023 19:49:46 11/11/19 24 11/11/2023 HEPAT ITIS PANEL ACUTE (AMA) hepatitis B core IgM antibody Non-re active non-re active IgM anti- HBc not detec sunil. Does not exclu de the possi bilit y of expos ure to or infec tion with HBV. Not Available [facility] (Lab) [address], [place], [address], 11/12/2023 19:49:46 11/11/19 24 11/11/2023 HEPAT ITIS PANEL ACUTE (AMA) hepatitis A IgM antibody Non-re active non-re active IgM anti- HAV not detec sunil. Does not exclu de the possi bilit y of expos ure to or infec tion with HAV. Level s of IgM anti- HAV may be below the cut-o ff in early infec tion. Not Available [facility] (Lab) [address], [place], [address], 11/12/2023 19:49:46 11/11/19 24 11/11/2023 URINA LYSIS , WITH MICRO SCOPI C, REFLE X MICRO ALBUM IN color, urine Dark Yellow abnormal Not Available [facility] (Lab) [address], [place], [address], 11/12/2023 19:49:47 11/11/19 24 11/11/2023 URINA LYSIS , WITH MICRO SCOPI C, REFLE X MICRO ALBUM IN appearance, urine Turbid abnormal Not Available [facility] (Lab) [address], [place], [address], 11/12/2023 19:49:47 11/11/19 24 11/11/2023 URINA LYSIS , WITH MICRO SCOPI C, REFLE X MICRO ALBUM IN specific gravity, urine 1.027 . 1.005- 1.030 Not Available [facility] (Lab) [address], [place], [address], 11/12/2023 19:49:47 11/11/19 24 11/11/2023 URINA LYSIS , WITH MICRO SCOPI C, REFLE X MICRO ALBUM IN pH, urine 6.0 . 5.0-7. 0 Not Available [facility] (Lab) [address], [place], [address], 11/12/2023 19:49:47 11/11/19 24 11/11/2023 URINA LYSIS , WITH MICRO SCOPI C, REFLE X MICRO ALBUM IN protein, UA 20 mg/dL negati ve, 10 , 20 Not Available [facility] (Lab) [address], [place], [address], 11/12/2023 19:49:47 11/11/19 24 11/11/2023 URINA LYSIS , WITH MICRO SCOPI C, REFLE X MICRO ALBUM IN glucose, urine Normal mg/dL normal Not Available [facility] (Lab) [address], [place], [address], 11/12/2023 19:49:47 11/11/19 24 11/11/2023 URINA LYSIS , WITH MICRO SCOPI C, REFLE X MICRO ALBUM IN ketones, urine Negati ve mg/dL negati ve Not Available [facility] (Lab) [address], [place], [address], 11/12/2023 19:49:47 11/11/19 24 11/11/2023 URINA LYSIS , WITH MICRO SCOPI C, REFLE X MICRO ALBUM IN bilirubin, urine 2+ negati ve abnormal Not Available [facility] (Lab) [address], [place], [address], 11/12/2023 19:49:47 11/11/19 24 11/11/2023 URINA LYSIS , WITH MICRO SCOPI C, REFLE X MICRO ALBUM IN blood, urine Negati ve negati ve Not Available [facility] (Lab) [address], [place], [address], 11/12/2023 19:49:47 11/11/19 24 11/11/2023 URINA LYSIS , WITH MICRO SCOPI C, REFLE X MICRO ALBUM IN nitrite, urine Negati ve negati ve Not Available [facility] (Lab) [address], [place], [address], 11/12/2023 19:49:47 11/11/19 24 11/11/2023 URINA LYSIS , WITH MICRO SCOPI C, REFLE X MICRO ALBUM IN leukocyte esterase, urine Negati ve emerson/u L negati ve Not Available [facility] (Lab) [address], [place], [address], 11/12/2023 19:49:47 11/11/19 24 11/11/2023 URINA LYSIS , WITH MICRO SCOPI C, REFLE X MICRO ALBUM IN urobilinogen , urine 2.0 mg/dL normal abnormal Not Available [facility] (Lab) [address], [place], [address], 11/12/2023 19:49:47 11/11/19 24 11/11/2023 URINA LYSIS , WITH MICRO SCOPI C, REFLE X MICRO ALBUM IN RBC, urine 0-2 /hpf 0-2 Not Available [facility] (Lab) [address], [place], [address], 11/12/2023 19:49:47 11/11/19 24 11/11/2023 URINA LYSIS , WITH MICRO SCOPI C, REFLE X MICRO ALBUM IN WBC, urine 0-5 /hpf 0-5 Not Available [facility] (Lab) [address], [place], [address], 11/12/2023 19:49:47 11/11/19 24 11/11/2023 URINA LYSIS , WITH MICRO SCOPI C, REFLE X MICRO ALBUM IN bacteria, urine None /hpf Not Available [facility] (Lab) [address], [place], [address], 11/12/2023 19:49:47 11/11/19 24 11/11/2023 URINA LYSIS , WITH MICRO SCOPI C, REFLE X MICRO ALBUM IN squamous epithelial cells, urine 0-5 /hpf Not Available [facility] (Lab) [address], [place], [address], 11/12/2023 19:49:47 11/11/19 24 11/11/2023 URINA LYSIS , WITH MICRO SCOPI C, REFLE X MICRO ALBUM IN amorphous crystal, urine Presen t /hpf none abnormal Micro album in to follo w. Not Available [facility] (Lab) [address], [place], [address], 11/12/2023 19:49:47 11/11/19 24 11/11/2023 MICRO ALBUM IN W/CRE ATINI NE RATIO , RANDO M URINE microalbumin , urine 1.3 mg/dL 0.0-1. 8 Not Available [facility] (Lab) [address], [place], [address], 11/12/2023 19:49:48 11/11/19 24 11/11/2023 MICRO ALBUM IN W/CRE ATINI NE RATIO , RANDO M URINE creatinine, urine 127.8 mg/dL R-No refer ence range estab lishe d for this assay Not Available [facility] (Lab) [address], [place], [address], 11/12/2023 19:49:48 11/11/19 24 11/11/2023 MICRO ALBUM IN W/CRE ATINI NE RATIO , RANDO M URINE microalbumin /creatinine ratio 10 mg/g 0-29 Not Available [facility] (Lab) [address], [place], [address], 11/12/2023 19:49:48 04/24/20 24 04/24/2024 PSA TOTAL (DIAG NOSTI C) PSA, total 2.07 NG/mL 0.00-4 .00 This assay was perfo rmed using Beckm an Coult er reage nts and test kits. Value s obtai morris with other assay metho ds or kits canno t be used inter love eably . Not Available [facility] (Lab) [address], [place], [address], 04/25/2024 09:32:51 04/24/20 24 04/24/2024 APOLI POPRO TEIN B apolipoprote in B 120 mg/dL <90 high Risk: Optim al <90 mg/dL ; Moder ate 90-11 9 mg/dL ; High >= 120 mg/dL ; Cardi ovasc ular event risk categ ory cut point s (opti mal, moder ate, high) are based on [employer] i[employer] n recom menda sylvie - Leonel HEWITT et al. J of Clin Lipid . 2015; 9: 129-1 69 and Jaspal LAIRD et al. Endoc r Pract . 2017; 23(Diaz ppl 2):1- 87. Not Available [facility] - Manual Order Only [id number] [address], [place], [address], 05/03/2024 06:22:22 04/24/20 24 04/24/2024 HSCRP hs-CRP [...] Cardi ovasc ular Risk; 1.0-3 .0 mg/L Parker ge Relat ceci Cardi ovasc ular Risk; [...] DC recom menda tions are based on [place] on TA, Mensa h [place], Sravani conorr RW, et al. [place] rs of infla mmati on and cardi ovasc ular disea se: appli catio n to clini denae and publi c healt h pract ice: A state ment for healt hcare sirena myrick from the [facility] rs for Disea se Contr ol and Preve ntion and the [facility] can Heart Assoc iatio n. Circu latio n 2002; 107(3 ): 499-5 11. Not Available [facility] - Manual Order Only [address], [place], [address], 05/03/2024 06:22:23 04/24/20 24 04/24/2024 LIPID PANEL cholesterol, total 238 mg/dL <200 high Not Available [facility] - Manual Order Only [address], [place], [address], 05/03/2024 06:22:24 04/24/20 24 04/24/2024 LIPID PANEL HDL cholesterol 67 mg/dL >39 Not Available [facility] - Manual Order Only [address], [place], [address], 05/03/2024 06:22:24 04/24/20 24 04/24/2024 LIPID PANEL triglyceride s 227 mg/dL <150 high If a non-f astin g speci men was colle cted, consi janny repea t trigl yceri de testi ng on a fasti ng speci men if clini kai indic ated. Leonel dias et al. J of Clin. Lipid ol. 2015; 9:129 -169. Not Available [facility] - Manual Order Only [address], [place], [address], 05/03/2024 06:22:24 04/24/20 24 04/24/2024 LIPID PANEL [...] 310(1 9): 2061- 2068 (http ://ed ucati on.Qu aprilDi Appier. com/f aq/FA Q164) Not Available [facility] - Manual Order Only [address], [place], [address], 05/03/2024 06:22:24 04/24/20 24 04/24/2024 LIPID PANEL chol/HDL-C 3.6 calc <5.0 Not Available [facility] - Manual Order Only [address], [place], [address], 05/03/2024 06:22:24 04/24/20 24 04/24/2024 LIPID PANEL non-HDL cholesterol 171 mg/dL _(denae c) <130 high For patie nts with diabe sofia plus 1 major ASCVD risk facto r, treat ing to a non-H DL-C goal of <100 mg/dL (LDL- C of <70 mg/dL ) is catalinai ernie roman n. Not Available [facility] - Manual Order Only [address], [place], [address], 05/03/2024 06:22:24 04/24/20 24 04/24/2024 CBC WITH DIFFE RENTI AL WBC 7.5 K/uL 3.8-10 .8 Not Available [facility] - Manual Order Only [address], [place], [address], 05/03/2024 06:22:24 04/24/20 24 04/24/2024 CBC WITH DIFFE RENTI AL RBC 3.92 M/uL 4.20-5 .80 low Not Available [facility] - Manual Order Only [address], [place], [address], 05/03/2024 06:22:24 04/24/20 24 04/24/2024 CBC WITH DIFFE RENTI AL hemoglobin 12.8 g/dL 13.2-1 7.1 low Not Available [facility] - Manual Order Only [address], [place], [address], 05/03/2024 06:22:24 04/24/20 24 04/24/2024 CBC WITH DIFFE RENTI AL hematocrit 40.4 % 38.5-5 0.0 Not Available [facility] - Manual Order Only [address], [place], [address], 05/03/2024 06:22:24 04/24/20 24 04/24/2024 CBC WITH DIFFE RENTI AL MCV 103.1 fL 80.0-1 00.0 high Not Available [facility] - Manual Order Only [address], [place], [address], 05/03/2024 06:22:24 04/24/20 24 04/24/2024 CBC WITH DIFFE RENTI AL MCH 32.7 pg 27.0-3 3.0 Not Available [facility] - Manual Order Only [address], [place], [address], 05/03/2024 06:22:24 04/24/20 24 04/24/2024 CBC WITH DIFFE RENTI AL MCHC 31.7 g/dL 32.0-3 6.0 low For adult s, a sligh t decre ase in the calcu lated MCHC value (in the range of 30 to 32 g/dL) is most likel y not clini kai signi fican t; dominique er, it shoul d be inter prete d with cauti on in corre latio n with other red cell max eters and the patie nt's clini denae condi tion. Not Available [facility] - Manual Order Only [address], [place], [address], 05/03/2024 06:22:24 04/24/20 24 04/24/2024 CBC WITH DIFFE RENTI AL red cell distribution width 16.8 % 11.0-1 5.0 high Not Available [facility] - Manual Order Only [address], [place], [address], 05/03/2024 06:22:24 04/24/20 24 04/24/2024 CBC WITH DIFFE RENTI AL platelet count 299 K/uL 140-40 0 Not Available [facility] - Manual Order Only [address], [place], [address], 05/03/2024 06:22:24 04/24/20 24 04/24/2024 CBC WITH DIFFE RENTI AL mean platelet volume 10.7 fL 7.5-12 .5 Not Available [facility] - Manual Order Only [address], [place], [address], 05/03/2024 06:22:24 04/24/20 24 04/24/2024 CBC WITH DIFFE RENTI AL neutrophil % 73.5 % 38.0-8 0.0 Not Available [facility] - Manual Order Only [address], [place], [address], 05/03/2024 06:22:24 04/24/20 24 04/24/2024 CBC WITH DIFFE RENTI AL neutrophil absolute 5.54 K/uL 1.50-7 .80 Not Available [facility] - Manual Order Only [address], [place], [address], 05/03/2024 06:22:24 04/24/20 24 04/24/2024 CBC WITH DIFFE RENTI AL lymphocyte % 9.7 % 15.0-4 9.0 low Not Available [facility] - Manual Order Only [address], [place], [address], 05/03/2024 06:22:24 04/24/20 24 04/24/2024 CBC WITH DIFFE RENTI AL lymphocyte absolute 0.73 K/uL 0.85-3 .90 low Not Available [facility] - Manual Order Only [address], [place], [address], 05/03/2024 06:22:24 04/24/20 24 04/24/2024 CBC WITH DIFFE RENTI AL monocyte % 13.7 % 0.0-13 .0 high Not Available [facility] - Manual Order Only [address], [place], [address], 05/03/2024 06:22:24 04/24/20 24 04/24/2024 CBC WITH DIFFE RENTI AL monocyte absolute 1.03 K/uL 0.20-0 .95 high Not Available [facility] Order Only [address], [place], [address], 05/03/2024 06:22:24 04/24/20 24 04/24/2024 CBC WITH DIFFE RENTI AL eosinophil % 2.3 % 0.0-8. 0 Not Available [facility] - Manual Order Only [address], [place], [address], 05/03/2024 06:22:24 04/24/20 24 04/24/2024 CBC WITH DIFFE RENTI AL eosinophil absolute 0.17 K/uL 0.00-0 .50 Not Available [facility] - Manual Order Only [address], [place], [address], 05/03/2024 06:22:24 04/24/20 24 04/24/2024 CBC WITH DIFFE RENTI AL basophil % 0.8 % 0.0-2. 0 Not Available [facility] - Manual Order Only [address], [place], [address], 05/03/2024 06:22:24 04/24/20 24 04/24/2024 CBC WITH DIFFE RENTI AL basophil absolute 0.06 K/uL 0.00-0 .20 Not Available [facility] - Manual Order Only [address], [place], [address], 05/03/2024 06:22:24 04/24/20 24 04/24/2024 COMPR EHENS [...] [facility] - Manual Order Only [address], [place], [address], 05/03/2024 06:22:25 04/24/20 24 04/24/2024 COMPR EHENS CECI METAB OLIC PANEL calcium 10.0 mg/dL 8.5-10 .5 Not Available [facility] - Manual Order Only [address], [place], [address], 05/03/2024 06:22:25 04/24/20 24 04/24/2024 COMPR EHENS CECI METAB OLIC PANEL sodium 135 mmol/ L 136-14 5 low Not Available [facility] - Manual Order Only [address], [place], [address], 05/03/2024 06:22:25 04/24/20 24 04/24/2024 COMPR EHENS CECI METAB OLIC PANEL potassium 4.4 mmol/ L 3.5-5. 1 Not Available [facility] - Manual Order Only [address], [place], [address], 05/03/2024 06:22:25 04/24/20 24 04/24/2024 COMPR EHENS CECI METAB OLIC PANEL chloride 96 mmol/ L 95-108 Not Available [facility] - Manual Order Only [address], [place], [address], 05/03/2024 06:22:25 04/24/20 24 04/24/2024 COMPR EHENS CECI METAB OLIC PANEL CO2 (carbon dioxide) 21 mmol/ L 21-33 Not Available [facility] Order Only [address], [place], [address], 05/03/2024 06:22:25 04/24/20 24 04/24/2024 COMPR EHENS CECI METAB OLIC PANEL BUN (blood urea nitrogen) 26 mg/dL 8-23 high Not Available [facility] - Manual Order Only [address], [place], [address], 05/03/2024 06:22:25 04/24/20 24 04/24/2024 COMPR EHENS CECI METAB OLIC PANEL creatinine 0.95 mg/dL 0.70-1 .28 Not Available [facility] - Manual Order Only [address], [place], [address], 05/03/2024 06:22:25 04/24/20 24 04/24/2024 COMPR EHENS CECI METAB OLIC PANEL protein, total 6.9 g/dL 6.1-8. 0 Not Available [facility] - Manual Order Only [address], [place], [address], 05/03/2024 06:22:25 04/24/20 24 04/24/2024 COMPR EHENS CECI METAB OLIC PANEL albumin 4.6 g/dL 3.5-5. 5 Not Available [facility] - Manual Order Only [address], [place], [address], 05/03/2024 06:22:25 04/24/20 24 04/24/2024 COMPR EHENS CECI METAB OLIC PANEL globulin 2.3 g/dL_ (calc ) 1.8-3. 8 Not Available [facility] - Manual Order Only [address], [place], [address], 05/03/2024 06:22:25 04/24/20 24 04/24/2024 COMPR EHENS CECI METAB OLIC PANEL albumin/glob ulin ratio 2.0 calc 1.0-2. 5 Not Available [facility] - Manual Order Only [address], [place], [address], 05/03/2024 06:22:25 04/24/20 24 04/24/2024 COMPR EHENS CECI METAB OLIC PANEL alkaline phosphatase 99 U/L <150 Not Available [facility] - Manual Order Only [address], [place], [address], 05/03/2024 06:22:25 04/24/20 24 04/24/2024 COMPR EHENS CECI METAB OLIC PANEL alanine aminotransfe rase (ALT) 23 U/L 9-46 Not Available [facility] [address], [place], [address], 05/03/2024 06:22:25 04/24/20 24 04/24/2024 COMPR EHENS CECI METAB OLIC PANEL aspartate aminotransfe rase (AST) 28 U/L 10-35 Not Available [facility] - Manual Order Only [address], [place], [address], 05/03/2024 06:22:25 04/24/20 24 04/24/2024 COMPR EHENS CECI METAB OLIC PANEL bilirubin, total 0.3 mg/dL <1.3 Not Available [facility] - Manual Order Only [address], [place], [address], 05/03/2024 06:22:25 04/24/20 24 04/24/2024 COMPR EHENS CECI METAB OLIC PANEL BUN/creatini ne ratio 27 calc 6-22 high Not Available [facility] - Manual Order Only [address], [place], [address], 05/03/2024 06:22:25 04/24/20 24 04/24/2024 COMPR EHENS CECI METAB OLIC PANEL eGFR 84 mL/mi n/1.7 3m_sq uared >59 The eGFR is based on the CKD-E PI 2020 equat ion. To calcu late the new eGFR from a previ ous Creat inine or Cysta tin C resul t, go to https ://shimon pate.o rg/pr ofess ional s/kdo qi/gf r%5Fc alcul ator. Not Available [facility] - Manual Order Only [address], [place], [address], 05/03/2024 06:22:25 04/24/20 24 04/24/2024 TESTO STERO NE, TOTAL (IA, ADULT MALES ) testosterone 199 NG/dL 193-74 0 Not Available [facility] - Manual Order Only [address], [place], [address], 05/03/2024 06:22:25 04/24/20 24 04/24/2024 THYRO ID STIMU LATIN G HORMO NE (TSH) thyroid stimulating hormone (TSH) 0.35 mlu/L 0.40-4 .50 low Not Available [facility] - Manual Order Only [address], [place], [address], 05/03/2024 06:22:25 04/24/20 24 04/24/2024 URIC ACID uric acid 6.9 mg/dL 3.2-8. 6 Not Available [facility] - Manual Order Only [address], [place], [address], 05/03/2024 06:22:26 04/24/20 24 04/24/2024 HEMOG LOBIN [...] platf orm. Effec tive 024, a kate perry in test platf orms from the [employer] [facility] to the Dereck ruma c503 may have shift ed HbA1c resul ts ricardo red to histo rical resul ts. Based on labor atory valid ation testi ng condu cted at [facility] , the [facility] platf orm relat ceci to the [employer] platf orm had an avera ge incre ase in HbA1c value of <=0.3 %. This diffe rence is withi n accep sunil varia bilit y estab lishe d by the [employer] hemog lobin Stand ramondiz ation Progr am. Note that not all indiv idual s will have had a shift in their resul ts and direc t ricardo rison s betwe en histo rical and curre nt resul ts for testi ng condu cted on diffe rent platf orms is not recom marimar d. Not Available [facility] - Manual Order Only [address], [place], [address], 05/03/2024 06:22:26 04/24/20 24 04/24/2024 HEMOG LOBIN A1C estimated average glucose 142 mg/dL <117 high Not Available [facility] - Manual Order Only [address], [place], [address], 05/03/2024 06:22:26 04/24/20 24 04/24/2024 MYELO PEROX [...] s [facility] [place] [facility]. It has not been clear ed or appro tamy by the U.S. Food and Drug Admin istra tion. This assay has been valid ated pursu ant to the CLIA regul ation s and is used for clini denae purpo ses. Not Available [facility] - Manual Order Only [address] [facility] [address], [place], [address], 05/03/2024 06:22:27 04/24/20 24 04/24/2024 VITAM IN [...] ng/mL . For addit ional infor brittany om refer to http: //darrion murphy.que stdia cristin ics.c om/fa q/FAQ 199(T his link is being provi ded for infor tim murphy/darrion catio nal purpo ses only. )This test was devel oped and its devonte tical perfo rmanc e timothy cteri stics have been deter mined by [facility] [place] [facility]. It has not been clear ed or appro tamy by the U.S. Food and Drug Admin istra tion. This assay has been valid ated pursu ant to the CLIA regul ation s and is used for clini denae purpo ses. Not Available [facility] - Manual Order Only [address], [place], [address], 05/03/2024 06:22:27 04/24/20 24 04/24/2024 urina lysis , dipst ick Leukocytes negati ve Not Available Main Office [address] [facility] [address], [place], [address], 04/21/2024 16:49:27 04/24/20 24 04/24/2024 urina lysis , dipst ick Nitrite negati ve Not Available Main Office [address] [facility] [address], [place], [address], 04/21/2024 16:49:27 04/24/20 24 04/24/2024 urina lysis , dipst ick Urobilinogen 0.2 EU/dL Not Available Main Office [address] [facility] [address], [place], [address], 04/21/2024 16:49:27 04/24/20 24 04/24/2024 urina lysis , dipst ick Protein negati ve Not Available Main Office [address] [employer] [facility] [address], [place], [address], 04/21/2024 16:49:27 04/24/20 24 04/24/2024 urina lysis , dipst ick pH 6.0 Not Available Main Offic e [address] [facility] [address] [address], [place], [address], 04/21/2024 16:49:27 04/24/20 24 04/24/2024 urina lysis , dipst ick Blood negati ve Not Available Main Office [address] [employer] [facility] [address], [place], [address], 04/21/2024 16:49:27 04/24/20 24 04/24/2024 urina lysis , dipst ick Specific [place] 1.020 Not Available Main O ffice [address] [facility] [address], [place], [address], 04/21/2024 16:49:27 04/24/20 24 04/24/2024 urina lysis , dipst ick Ketone negati ve Not Available Main Office [address] [facility] [address], [place], [address], 04/21/2024 16:49:27 04/24/20 24 04/24/2024 urina lysis , dipst ick Bilirubin negati ve Not Available Main Office [address] [facility] [address], [place], [address], 04/21/2024 16:49:27 04/24/20 24 04/24/2024 urina lysis , dipst ick Glucose negati ve Not Available Main Office [address] [facility] [address], [place], [address], 04/21/2024 16:49:27 04/24/20 24 04/24/2024 urina lysis , dipst ick Appearance clear Not Available Main Of fice [address] [facility] [address], [place], [address], 04/21/2024 16:49:27 04/24/20 24 04/24/2024 urina lysis , dipst ick Color yellow Not Available Main Offic e [address] [facility] [address], [place], [address], 04/21/2024 16:49:27 04/24/20 24 04/24/2024 sectional belt mold assembler test* Unknown Analyte 57.3 Not Available Main O ffice [address] [facility] [address], [place], [address], 04/21/2024 16:49:27 04/24/20 24 04/24/2024 sectional belt mold assembler test* Unknown Analyte 61.5 Not Available Main O ffice [address] [address], [place], [address], 04/21/2024 16:49:27 04/24/20 24 04/24/2024 sectional belt mold assembler test* Unknown Analyte 49.8 Not Available Main O ffice [address] [address], [place], [address], 04/21/2024 16:49:27 04/24/20 24 04/24/2024 sectional belt mold assembler test* Unknown Analyte 54.0 Not Available Main O ffice [address] [address], [place], [address], 04/21/2024 16:49:27 04/24/20 24 04/24/2024 sectional belt mold assembler test* Unknown Analyte 48.2 Not Available Main O ffice [address] [address], [place], [address], 04/21/2024 16:49:27 04/24/20 24 04/24/2024 gait test (PROC ) Time taken to walk 4m 4.57 Not Available Main Office [address] [address], [place], [address], 04/21/2024 16:49:27 04/24/20 24 04/24/2024 gait test (PROC ) Gait speed in meters p/s 0.88 Not Available Main O ffice [address] [address], [place], [address], 04/21/2024 16:49:27 04/24/20 24 04/24/2024 body compo sitio n devonte sis (PROC ) Status if Not Performed Patien t unable to comple te Not Available Main Office [address] [address], [place], [address], 04/21/2024 16:49:26 04/24/20 24 04/24/2024 epwor th sleep iness scale * Total Score 11 Not Available Main O ffice [address] [address], [place], [address], 04/21/2024 16:49:26 04/24/20 24 04/24/2024 epwor th sleep iness scale * Indication normal Not Available Main Of fice [address] [facility] [address], [place], [address], 04/21/2024 16:49:26 04/24/20 24 04/24/2024 albarran anxie ty inven tory* Total Score 5 Not Available Main O ffice [address] [facility] [address], [place], [address], 04/21/2024 16:49:26 04/24/20 24 04/24/2024 albarran anxie ty inven tory* Indication Minima l anxiet y Not Available Main Office [address] [address], [place], [address], 04/21/2024 16:49:26 04/24/20 24 04/24/2024 (RENAN) ankle brach ial index * Arm- Right 142 Not Available Main Of fice [address] [facility] [address], [place], [address], 04/21/2024 16:49:25 04/24/20 24 04/24/2024 (RENAN) ankle brach ial index * Arm- Left 146 Not Available Main Off ice [address] [facility] [address], [place], [address], 04/21/2024 16:49:25 04/24/20 24 04/24/2024 (RENAN) ankle brach ial index * Leg- Right 186 Not Available Main Of fice [address] [address], [place], [address], 04/21/2024 16:49:25 04/24/20 24 04/24/2024 (RENAN) ankle brach ial index * Leg- Left 190 Not Available Main Off ice [address] [facility] [address], [place], [address], 04/21/2024 16:49:25 04/24/20 24 04/24/2024 (RENAN) ankle brach ial index * RENAN Pressure- Right 1.27 Not Available Main O ffice [address] [facility] [address], [place], [address], 04/21/2024 16:49:25 04/24/20 24 04/24/2024 (RENAN) ankle brach ial index * RENAN Pressure- Left 1.30 Not Available Main O ffice [address] [facility] [address], [place], [address], 04/21/2024 16:49:25 04/24/20 24 04/24/2024 visua l acuit y* Color 01/12 Not Available Main Offic e [address] [facility] [address], [place], [address], 04/21/2024 16:49:25 04/24/20 24 04/24/2024 visua l acuit y* Status if not performed patien t satisf ied w/ anothe r provid er Not Available Main Office [address] [facility] [address], [place], [address], 04/21/2024 16:49:25 04/24/20 24 04/24/2024 darcie metry testi ng* Spirometry normal Not Available Main Of fice [address] [facility] [address], [place], [address], 04/21/2024 16:49:25 04/21/20 24 04/27/2024 elect rocar diogr am No observ ation record ed. [email or web address] Main Office [address] [facility] [address], [place], [address], 05/04/2024 12:40:01 04/21/20 24 04/24/2024 audio gram No observ ation record ed. [email or web address] Main Office [address] [facility] [address], [place], [address], 04/27/2024 14:15:13 04/24/20 24 elect lynette cole am No observ ation record ed. [email or web address] Main Office [address], [place], [address], 04/26/2024 09:52:57 04/24/20 24 darcie metry testi ng* No observ ation record ed. [email or web address] Main Office [address], [place], [address], 04/26/2024 09:52:57 Result Notes None recorded. Problems Name Problem SNOMED Code Status Onset Date Resolution Date Notes Provider Name and Address Organization Details Recorded Time Fatigue 04307712 Completed 201803/09/2021 GLORIA henao Mark 15:17:56 Advance care planning Active 2020 Gilberto Martinez MD, FACP [address], [place], [address], Gilberto Tomlinson 1 12:00:25 Sinus bradycard ia 21867772 Active 2021 Gilberto Martinez MD, FACP [address], [place], [address], Gilberto Tomlinson 2 12:39:15 Lighthead edness 534431978 Active 2021 Gilberto Martinez MD, FACP [address], [place], [address], Gilberto Tomlinson 2 13:57:58 Aortic valve regurgita tion 28581266 Active Gilberto Martinez MD, FACP [address], [place], [address], Gilberto Dumont 2 12:54:31 History of gout 301748572 Active Gilberto Martinez MD, FACP [address], [place], [address], Gilberto Tomlinson 3 11:23:22 Near syncope 440277582 Active 2022 Gilberto Martinez MD, FACP [address], [place], [address], Gilberto Tomlinson 3 15:05:23 Cataract 001615127 Active 2022 Gilberto Martinez MD, FACP [address], [place], [address], Gilberto Tomlinson 3 11:07:48 Constipat ion 65844420 Active 2022 Gilberto Martinez MD, FACP [address], [place], [address], Gilberto Tomlinson 3 15:35:53 Prediabet es 050896223 Active 2015 GLORIA Starr Mark 6 01:12:11 Osteoarth ritis 097234109 Active 2015 of the thumbs GLORIA Starr Mark 6 01:12:28 Unilatera l hearing loss Active 2015 in the left ear from an old injury jordy womack GLORIA juan Mark 1 12:00:30 Hypertens ceci disorder 13875519 Active 2015 GLORIA Starr Mark 6 01:13:11 Hyperlipi demia 19446228 Active 2015 GLORIA Starr Mark 6 01:13:21 Dysthymia 48790097 Active 2015 GLORIA Starr Mark 6 01:13:36 M ni re's disease 05954342 Active 2022 Gilberto Martinez MD, FACP [address], [place], [address], Gilberto Tomlinson 3 12:34:41 Screening for malignant neoplasm of colon Active 2022 Gilberto Martinez MD, FACP [address], [place], [address], Gilberto Tomlinson 3 11:55:04 Osteopeni a [id number] Active 2022 Gilberto Martinez MD, FACP [address], [place], [address], Gilberto Tomlinson 4 12:58:26 Jaundice [id number] Active 2023 Gilberto Martinez MD, FACP [address], [place], [place], [address], Gilberto Tomlinson 4 11:52:21 Insomnia 344205393 Active 2023 Gilberto Martinez MD, FACP [address], [place], [address], Gilberto Tomlinson 4 18:05:08 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 Gilberto Martinez MD, FACP [address], [place], [address], Gilberto Tomlinson 4 10:27:58 Atrial fibrillat ion 49798681 Active 2023 Gilberto Martinez MD, FACP [address], [place], [address], Gilberto Tomlinson 4 10:52:12 Acute COVID-19 7303817204 Active 2023 Gilberto Martinez MD, FACP [address], [place], [address], Gilberto Tomlinson 4 11:56:27 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 2015 Gilberto Martinez MD, FACP [address], [place], [address], Gilberto Dumont 6 12:32:20 Celluliti s of finger 75332273 Completed 201603/07/2020 Gilberto Martinez MD, FACP [address], [place], [address], Gilberto Tomlinson 0 16:01:23 Eruption 978275370 Completed 201601/01/2017 Gilberto Martinez MD, FACP [address], [place], [address], Gilberto Tomlinson 7 15:16:59 Tremor 30131811 Completed 201603/09/2021 jordy GLORIA prescott Mark 1 15:18:00 Hyperuric emia 40262248 Active 2017 GLORIA Carty Mark 8 15:02:35 Gout 88509760 Completed 201709/15/2020 Gilberto Martinez MD, FACP [address], [place], [address], Gilberto Tomlinson 1 11:23:01 Chronic kidney disease 090670081 Active 2017 Gilberto Martinez MD, FACP [address], [place], [address], Gilberto Tomlinson 8 16:14:13 Notes:small bowl obstruction DEC 23, 2021 Problem Notes None recorded. Procedures Surgical History Date Name Laterality Status Provider Name and Address Organization Details Recorded Time 04/24/20 24 Advanced Care Planning completed Gilberto Martinez MD, FACP [address], [place], [address], Gilberto Tomlinson 04/26/2024 10:00:24 04/24/20 24 JULIA GONSALES completed Gilberto Gonzalez 04/21/2024 16:49:19 04/25/20 23 dual energy X-ray absorptiometry completed Gilberto Martinez MD, FACP [address], [place], [address], Gilberto Tomlinson 04/26/2024 10:08:42 04/22/20 Advanced Care Planning completed Gilberto Martinez MD, FACP [address], [place], [address], Gilberto Tomlinson 04/23/2023 06:55:37 04/22/20 23 JULIA GONSALES completed Gilberto Martinez MD, FACP [address], [place], [address], Gilberto Tomlinson 04/23/2023 06:46:40 05/06/19 Cataract Surgery completed Gilberto Martinez MD, FACP [address], [place], [address], Gilberto Tomlinson 04/22/2023 11:43:39 03/27/20 Advanced Care Planning completed Gilberto Martinez MD, FACP [address], [place], [address], Gilberto Tomlinson 03/27/2022 12:56:32 03/27/20 JULIA GONSALES completed Gilberto Martinez MD, FACP [address], [place], [address], Gilberto Tomlinson 03/27/2022 11:44:01 07/03/19 cardiac pacemaker procedure completed Gilberto Martinez MD, FACP [address], [place], [address], Gilberto Tomlinson 09/26/2021 13:46:22 03/22/20 Advanced Care Planning completed Gilberto Martinez MD, FACP [address], [place], [address], Gilberto Tomlinson 03/25/2021 11:59:27 03/22/20 JULIA GONSALES completed Gilberto Martinez MD, FACP [address], [place], [address], GLORIA Martinez, Gilberto 03/22/2021 12:10:23 03/07/20 20 MDVIP SAWE completed Gilberto Martinez MD, FACP [address], [place], [address], Gilberto Tomlinson 03/07/2020 15:19:23 02/25/20 19 Influenza Consent completed jordy riveraspring Martinez, Gilberto 02/24/2019 16:19:35 02/10/20 19 MDVIP SAWE completed Gilberto Martinez MD, FACP [address], [place], [address], GLORIA Martinez, Gilberto 02/09/2019 11:38:37 02/06/20 18 Influenza Consent completed Gilberto Mcrae 02/05/2018 14:25:28 02/06/20 18 MDVIP SAWE completed Loly Martinez, Gilberto 02/05/2018 14:24:52 12/21/19 17 Diagnostic colonoscopy completed Gilberto Martinez MD, FACP [address], [place], [address], GLORIA Martinez, Gilberto 02/05/2018 14:33:55 11/13/19 17 MDVIP SAWMary completed Gilberto Rivera 11/12/2016 14:45:33 07/14/19 17 Unlisted px hands/fingers completed Gilberto Martinez MD, FACP [address], [place], [address], Gilberto Tomlinson 05/05/2017 19:23:27 05/06/19 06 Diagnostic colonoscopy completed Gilberto Martinez MD, FACP [address], [place], [address], GLORIA Martinez, Gilberto 05/05/2017 19:41:20 05/06/18 90 [...] Not available Not available 03/07/2020 2231 RxNorm Gilberto Martinez MD, FACP [address], [place], [address], Gilberto Tomlinson 0 16:02:26 721 Iodinated contrast media (substanc e) medicatio n hives Not available Not available 06/25/2016 48735 2004 SNOMED Gilberto Martinez MD, FACP [address], [place], [address], Gilberto Tomlinson 7 12:04:29 Medications Name [...] Not Available Not Available Fluzone High-Dose Quad 2020-21 (PF) 240 mcg/0.7 mL IM syringe 03/09 [...] Body mass index (BMI) Body weight Systolic And Diastolic Provider Name and Address Organization Details Last Updated DateTime 4 180.34 cm 98.5 [degF] 60 /min 100 % 100 % 26.5 kg/m2 00000.2 7 g 152/86 mm[Hg] Gilberto Gonzalez 4 11:27:02 Date Recorded Body height Heart rate Systolic And Diastolic Provider Name and Address Organization Details Last Updated DateTime 11/27/2023 180.34 cm 60 /min 120/60 mm[Hg] Gilberto Martinez MD, FACP [address] [facility],[address], [place], [address], Gilberto Tomlinson 11/27/2023 10:51:07 Date Recorded Body height Body mass index (BMI) Body weight Body temperature Heart rate Oxygen saturation Oxygen saturation in Arterial blood by Pulse oximetry Systolic And Diastolic Provider Name and Address Organization Details Last Updated DateTime 4 180.34 cm 28.7 kg/m2 40239.0 3 g 98.9 [degF] 78 /min 98 % 98 % 138/74 mm[Hg] Gilberto Gonzalez 4 11:01:41 Date Recorded Body height Body mass index (BMI) Body weight Body temperature Oxygen saturation Oxygen saturation in Arterial blood by Pulse oximetry Heart rate Systolic And Diastolic Provider Name and Address Organization Details Last Updated DateTime 4 180.34 cm 29.3 kg/m2 71933.1 2 g 97.9 [degF] 97 % 97 % 68 /min 142/62 mm[Hg] Gilberto Gonzalez 4 11:12:50 Date Recorded Body height Body mass index (BMI) Body weight Body temperature Heart rate Oxygen saturation Oxygen saturation in Arterial blood by Pulse oximetry Systolic And Diastolic Provider Name and Address Organization Details Last Updated DateTime 4 180.34 cm 29.6 kg/m2 37519.0 2 g 97.8 [degF] 64 /min 96 % 96 % 150/74 mm[Hg] Gilberto Gonzalez 4 12:07:50 Social History None recorded. Functional Status Question Answer Note LastModified by Organizat ion Details LastModified Time What is your level of alcohol consumption? Occasional [id number] Information not available 03/08/2020 Mental Status None recorded. Family History Relationship Description Onset Age of this Age Resolved Age Notes LastModified by Organization Details LastModified Time Father Myocardial infarction 65 [email or web address] Not available 03/29 01:16:35 Mother Coronary artery bypass graft 78 [email or web address] Not available 01:16:45 Mother Degenerative disorder of macula [email or web address] Not available 07/2017 17:12:41 Mother Hypertensive disorder [email or web address] Not available 07/2017 17:12:57 Medical History No medical history recorded. Immunizations Vaccine Type Date Status Note Provider Nam e and Address Organization Details Recorded Time SARS-COV-2 (COVID-19) vaccine, UNSPECIFIED 3 completed Gilberto Martinez MD, FACP [address] [facility],[address], [place], [address], Gilberto Tomlinson 04/22/2023 11:49:58 SARS-COV-2 (COVID-19) vaccine, UNSPECIFIED 4 completed Gilberto Martinez MD, FACP [address] [facility],[address], [place], [address], Gilberto Tomlinson 04/24/2024 12:27:22 influenza, unspecified formulation 4 completed Gilberto Martinez MD, FACP [address] [facility],[address], [place], [address], Gilberto Tomlinson 04/24/2024 12:27:50 Hep A-Hep B 5 completed GLORIA Draper Mark 06/19/2024 10:33:46 Influenza, high-dose, trivalent, PF 8 completed Not Available [facility] 05/23/2019 02:39:30 tetanus toxoid, unspecified formulation 8 completed Gilberto Martinez MD, FACP [address] [facility] [address], [place], [address], Gilberto Tomlinson 05/05/2017 19:28:48 zoster live 5 completed Gilberto Martinez MD, FACP [address] [facility] [address], [place], [address], Gilberto Tomlinson 03/07/2020 15:22:49 DT (pediatric) 9 completed Not Available [facility] 05/23/2019 02:39:30 Influenza, high-dose, trivalent, PF 9 completed Not Available [facility] 05/23/2019 02:39:30 Pneumococcal conjugate PCV 13 0 completed GLORIA henao Mark 03/07/2020 15:36:56 Influenza, adjuvanted, trivalent, PF 6 completed Gilberto Martinez MD, FACP [address] [facility], [place], [address], Gilberto Tomlinson 05/01/2016 12:27:33 Influenza, split virus, quadrivalent, preservative 0 completed Gilberto Martinez MD, FACP [address] [facility],[address], [place], [address], Gilberto Tomlinson 03/07/2020 15:21:32 SARS-COV-2 (COVID-19) vaccine, UNSPECIFIED 1 completed Gilberto Martinez MD, FACP [address] [facility],[address], [place], [address], Gilberot Tomlinson 09/15/2020 11:13:51 SARS-COV-2 (COVID-19) vaccine, UNSPECIFIED 1 completed Gilberto Martinez MD, FACP [address] [facility],[address], [place], [address], Gilberto Tomlinson 09/15/2020 11:14:02 Pneumococcal conjugate PCV20, polysaccharide PYM345 conjugate, adjuvant, PF 3 completed GLORIA Draper Mark 10/10/2022 13:09:57 COVID-19, mRNA, LNP-S, PF, 30 mcg/0.3 mL dose 1 completed Gilberto Martinez MD, [facility] [address] [facility],[address], [place], [address], Gilberto Tomlinson 03/22/2021 11:53:33 Influenza, split virus, quadrivalent, preservative 1 completed Gilberto Martinez MD, FACP [address] [facility],[address], [place], [address], Gilberto Tomlinson 03/22/2021 11:53:44 Influenza, adjuvanted, quadrivalent, PF 3 completed GLORIA Draper Mark 07/03/2024 12:30:34 Influenza, adjuvanted, quadrivalent, PF 2 completed Not Available [facility] 05/15/2022 11:09:01 COVID-19, mRNA, LNP-S, bivalent, PF, 10 mcg/0.2 mL 2 completed Not Available [facility] 05/15/2022 11:09:01 Past Encounters Encounter ID Performer Location Encounter Start Date Encounter Closed Date Diagnosis/Indication Diagnosis SNOMED-CT Code Diagnosis ICD10 Code Diagnosis Note [id number] Gilberto Martinez MD, FACP Main Office [address] [place] [address] 05/01/2016 11:45:41 05/01/2016 12:36:50 Hypertensive disorder 10696302 I10 Marginal today. P: monitor at home few times/raulito h P: chk BMP Dysthymia 98314217 F34.1 Doing well on citalopram 20mg Osteoarthritis 352957425 M19.90 c/o muscle aches all over interferin g with sleep. Vit D level 30.5 P: Vit D 5,000 u/day for 30 days then Vit D 2,000 u /day forever Essential hypertension 24910942 I10 Papilloma 987248745 D36. 9 tiny papule seen by dentist. Pt declines further w/u at this time. [id number] Gilberto Martinez MD, FACP Main Office [address] [place] [address] 06/25/2016 11:38:23 06/25/2016 12:17:32 Hypertensive disorder 34084944 I10 Home cuff reads high. BP office is 146 sys. P: get new cuff. continue present meds. Prediabetes 876903075 R7 3.03 Weight is up, contributi ng to BP and will impact pre-DM2 [id number] Gilberto Martinez MD, FACP Main Office [address] [place] [address] 07/10/2016 15:47:57 07/10/2016 16:37:13 Cellulitis of finger 77382776 L03.012 Has had lesion to L index finger for weeks that has gotten more painful in past 24 hours.P: Bactrim DS BID x 10 days. Chk CBC, BMP and xray finger. Refer to Hand Surgery for possible debridemen t. [id number] Gilberto Martinez MD, FACP Main Office [address] [place] [address] 09/17/2016 14:18:19 09/17/2016 16:51:30 Cellulitis of finger 00883051 L03.012 Slowly healing - pain less and swelling less. Hypertensive disorder 38 277120 I10 New cuff reads 140's systolic (as recorded today in office). It would seem to be accurate. no change in BP medication [id number] Gilberto Martinez MD, FACP Main Office [address] [place] [address] 11/12/2016 13:24:33 11/12/2016 17:37:19 Hyperlipidemia 53242527 E78.5 Your lipid profile was pretty good on a very small dose of the statin. When you come in the spring for blood pressure check, try to skip the meal before the appointmen t and will check your lipids again. Prediabetes 353485360 R7 3.03 Your hemoglobin A1c's 5.3%. This is normal-goo d job! Essential hypertension 17934912 I10 We increase the hydrochlor othiazide to 25 mg a day in this seems to work well. Reviewing your old records from [facility], your sodium dropped what taking this medicine in the past. We did check this last month and the sorting was normal. Adult [facility] th examination 493455224 Z00.01 Romain, the results of these studies are good. I'm going to touch on a few topics and then makes recommenda tions to improve your health and the years ahead. On examina tion - rash present 158962219 R21 [id number] Gilberto Martinez MD, FACP Main Office [address] [place] [address] 01/01/2017 15:07:53 01/01/2017 16:47:27 Hypertensive disorder 78219076 I10 New cuff reads 140's systolic (as recorded today in office). It would seem to be accurate. Had spironopla ctone added and pt notes decreased BP readings. P : chk BMP Prediabetes 559146074 R7 3.03 Weight is up, contributi ng to BP and will impact pre-DM2 Cellulitis of finger 275 39374 L03.012 Slowly healing - seems mostly resolved. [id number] Gilberto Martinez MD, FACP Main Office [address] [place] [address] 03/18/2017 15:22:57 03/18/2017 16:20:50 Prediabetes 591728352 R73.03 Weight is up, contributi ng to BP and will impact pre-DM2 Essential hypertension 33390107 I10 bp doing well and reading in office today is good P chk BMP Advised to avoid K+ Rich foods [id number] Gilberto Martinez MD, [facility] Main Office [address] [place] [address] 04/01/2017 16:11:02 04/01/2017 17:51:17 Hypertensive disorder 80330694 I10 controlled Tremor 42457431 R25.1 Doubt Parkinson' s. Suspect familial P: trial propranolo l 10mg. Refer Neuro at later date. [id number] Gilberto Martinez MD, [facility] Main Office [address] [place] [address] 07/24/2017 15:50:10 07/29/2017 11:46:49 Tremor 12697162 R25.1 Tremor helped with propranolo l Hypertensive disorder 38 477031 I10 controlled . P: chk BMP Prediabetes 155529788 R7 3.03 chk HgBA1c [id number] Gilberto Martinez MD, [facility] Main Office [address] [place] [address] 02/05/2018 09:57:08 02/05/2018 16:27:37 Adult health examination 703415606 Z00.01 Romain, the results of these studies are good. I'm going to touch on a few topics and then makes recommenda tions to improve your health and the years ahead. Influenza vaccine needed 3832494513 106 Z23 Gout 37505728 M10.9 UA 9.8. start colchicine 0.6mg BID rest of week, then QD thru 7 MAR. Start allopurino l 150mg QD next week, f/u here 6 weeks to check UA CBC, and BMP. Hypertensive disorder 38 962873 I10 Your blood pressure is controlled . Prediabetes 437349766 R7 3.03 YOur HgBA1c was 5.8%. This is the range of pre-diabet es. Regular exercise, avoiding carbs, and keeping your weight under control will keep this from becoming a problem. Chronic ki dney disease 879615535 N18.[address] eYmi Hernandez. See me in 3 months. Dysthymia 05583587 F34.1 As we e discussed, in addition to citalopram , try daily exercise and a place of your own at your house. 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 [id number] Gilberto Martinez MD, FACP Main Office [address] [place] [address] 02/18/2018 14:49:04 02/18/2018 16:49:17 Hypertensive disorder 22077843 I10 controlled . Gout 38213944 M10.9 UA 9.8. start colchicine 0.6mg BID rest of week, then QD thru 7 MAR. Start allopurino l 150mg QD next week, f/u here 6 weeks to check UA CBC, and BMP. [id number] Gilberto Martinez MD, [facility] Main Office [address] [place] [address] 03/25/2018 12:12:17 03/25/2018 12:44:05 Chronic kidney disease 389435357 N18.[address] Yemi Hernandez. See me in 3 months. Gout 65945040 M10.9 chk uric acid on 150mg allopurino l QD. Hypertensive disorder 38 570587 I10 controlled . Dysthymia 62786236 F34.1 Seems to be doing well off citalopram . Exercising daily. [id number] Gilberto Martinez MD, FAC Main Office [address] [place] [address] 06/03/2018 11:02:02 06/03/2018 13:52:58 Hyperuricemia 46278672 E79.0 [id number] Gilberto Martinez MD, FAC Main Office [address] [place] [address] 07/22/2018 11:23:37 07/22/2018 13:20:24 Chronic kidney disease 768613873 N18.[address] Yemi Hernandez. Renal function is stable. Hyperuricemia 54516091 E 79.0 uric acid NL on allopurino l 300mg. Hypertensive disorder 38 482683 I10 controlled . Dysthymia 87297386 F34.1 Doing well on citalopram 20mg. [id number] Gilberto Martinez MD, [facility] Main Office [address] [facility] [address] [place] [address] 02/09/2019 10:42:48 02/09/2019 15:47:17 Adult health examination 080143438 Z00.00 Romain, the results of these studies are good. I'm going to touch on a few topics and then makes recommenda tions to improve your health and the years ahead. Wound of skin 838307650 T14.8XXA linear wound R mora 3 cm length. + redness but not actively bleeding. Screening for malignant neoplasm of prostate 840136738 Z12.5 [id number] Gilberto Martinez MD, [facility] Main Office [address] [facility] [address] [place] [address] 02/24/2019 15:53:32 02/24/2019 17:36:53 Administration of influenza vaccine 90557632 Z23 Fatigue 63769506 R53.83 Pt reports new early fatigue with exertion. Occasional ly gets some SOB but no SOB. Has decreased B- karoline w/o improvemen t. Exam concerning for possible increase size to apical impulse. Has remote smoking history. P: chk CXR. EHO heart. If ok will check home sleep study. home sleep study completed and revealed severe sleep apnea. Chronic ki dney disease 287021695 N18.[address] Paulson- Renal. Renal function is stable. Hypertensive disorder 38 468032 I10 controlled . Spent [address] [place] [id number] Gilberto Martinez MD, [facility] Main Office [address] [facility] [address] [place] [address] 02/19/2020 10:02:06 02/19/2020 11:41:41 Adult health examination 284026073 Z00.00 Romain, the results of these studies are good. I'm going to touch on a few topics and then makes recommenda tions to improve your health and the years ahead. Long-term drug therapy 471297784 Z79.899 [id number] Gilberto Martinez MD, FACP Main Office [address] [place] [address] 03/07/2020 14:47:31 03/07/2020 16:29:13 Adult health examination 247644037 Z00.01 Romain, the results of these studies are good. I'm going to touch on a few topics and then make some recommenda tions to improve your health in the year ahead. Administra tion of pneumococcal vaccine 52014740 Z23 Chronic ki dney disease 358900624 N18.[address] Yemi Hernandez. Renal function Hyperlipidemia 88678314 E78.5 Your lipid profile was pretty good on a very small dose of the statin. Let us know if you want to do the CT Coronary Calcium test to check for coronary atheroscle rosis. Hypertensive disorder 38 385591 I10 YOur BP was a little on the high side. Regular exercise and continuing weight loss will keep this in check . Hyperuricemia 84319742 E 79.0 As you know, elevated uric acid can jethro d to gout. YOur level on 300mg allopurino l will keep this under control. Prediabetes 984051871 R7 3.03 YOur HgBA1c was 5.6% which is in the normal range. Regular exercise, avoiding carbs, and keeping your weight under control has cured you from pre-diabet es! [id number] Gilberto Martinez MD, FACP Main Office [address] [place] [address] 09/15/2020 11:03:47 09/15/2020 15:22:18 Essential hypertension 79347748 I10 BP doing well and reading in office today is good P chk BMP Chronic ki dney disease 585212533 N18.[address] Yemi Hernandez. Check Renal function today. Hypertensive disorder 38 131438 I10 BP was fine today. Pt aware of need for weight loss. P: chk BMP. Hyperuricemia 25416626 E 79.0 As you know, elevated uric acid can lead to gout. check CBC and uric acid on allopurino l. [id number] Gilberto Martinez MD, [facility] Main Office [address] [place] [address] 03/09/2021 11:41:14 03/09/2021 15:37:04 Adult health examination 640430231 Z00.00 Hypertensive disorder 38 531992 I10 BP was fine today. Pt aware of need for weight loss. P: chk BMP. [id number] Gilberto Martinez MD, FACP Main Office [address] [facility] [address] [place] [address] 03/22/2021 11:49:42 03/22/2021 14:12:01 Adult health examination 090054795 Z00.01 Romain, the results here are pretty good. We discussed going to [facility] to see about getting hearing aids. Chronic ki dney disease 866284359 N18.[address] Paulson- Renal. YOur Renal function today was fine. Dysthymia 40705828 F34.1 YOu seem to be doing well on citalopram 20mg. Hyperlipidemia 86112866 E78.5 Your lipid profile was pretty good on a very small dose of the statin. Let us know if you want to do the CT Coronary Calcium test to check for coronary atheroscle rosis. Hypertensive disorder 38 925642 I10 BP was fine today. The weight loss has helped your BP. Hyperuricemia 21874100 E 79.0 As you know, elevated uric acid can lead to gout. YOur level on this exam was fine. Prediabetes 511842534 R7 3.03 YOur HgBA1c was 5.6% which is in the normal range. Regular exercise, avoiding carbs, and keeping your weight under control has cured you from pre-diabet es! Advance care planning 71 7105549 Z71.89 We discussed the concepts of Durable Power of Healthcare and Living de luna- you have both of these. [id number] Gilberto Martinez MD, FACP Main Office [address] [place] [address] 05/03/2021 10:46:05 05/03/2021 12:19:24 Bradycardia 23914746 R00.1 EKG shows sinus bradycardi a. Had problems last week at [facility] becasue of fast from midnight, including liquids.P: use water before this week's Mass.Amlod ipine held starting yesterday. Pt knows how to monitor pulse. Expectatio n is for pulse to increase over the next 48 hours. chk TSH and BMP Hypertensive disorder 38 236094 I10 BP is acceptable today. Prediabetes 054614597 R7 3.03 chk glucose. [id number] Gilberto Martinez MD, FACP Main Office [address] [facility] [address] [place] [address] 05/29/2021 12:13:23 05/29/2021 14:54:44 Chronic kidney disease 634673195 N18.[address] Yemi Hernandez. YOur renal function had deteriorat ed by the time patient hospitaliz ed. This resolved with IV hydration. P: chk BMP Hypertensive disorder 38 265970 I10 BP is acceptable today. Sinus bradycardia 252341 05 R00.1 This is thought to be source of his not feeling well with increased fatigue. P to get pacemaker next week. [id number] Gilberto Martinez MD, FACP Main Office [address] [facility] [address] [place] [address] 09/26/2021 13:02:54 09/26/2021 15:18:26 Chronic kidney disease [id number] N18.[address] Yemi Hernandez. YOur renal function had deteriorat ed by the time patient hospitaliz ed. This resolved with IV hydration. P: chk BMP Hypertensive disorder 38 372565 I10 BP readings at home reviewed. BP today was fine. P: cjk BMP Hyperuricemia 38627072 E 79.0 Chk CBC and uric acid on allopurino l. Sinus bradycardia 336251 05 R00.1 Energy much better s/p pacemaker. [id number] Gilberto Martinez MD, FACP Main Office [address] [facility] [address] [place] [address] 01/10/2022 12:28:51 01/10/2022 15:28:51 Hypertensive disorder 29421864 I10 BP readings at home reviewed. BP today was fine. Prediabetes 086708359 R7 3.03 This has been controlled with change to diet and exercise. Hyperuricemia 53626187 E 79.0 CBC and uric acid on allopurino l have been good. Chronic ki dney disease 572264921 N18.[address] Yemi Hernandez. YOur renal function had deteriorat ed by the time patient hospitaliz ed. This resolved with IV hydration. [id number] Gilberto Martinez MD, [facility] Main Office [address] [place] [address] 03/13/2022 11:22:32 03/13/2022 15:54:16 Adult health examination 943718253 Z00.01 Romain, the results here are pretty good. We discussed going to [facility] to see about getting hearing aids. Nocturia 050205644 R35.1 Essential hypertension 20326110 I10 BP doing well and reading in office today is good P chk BMP 12310 Gilberto Martinez MD, [facility] Main Office [address] [place] [address] 03/13/2022 13:50:02 03/13/2022 15:56:27 Lightheadedness 473863067 R42 Patient has lost 50 lbs since September 2020. Reviewed home BP readings and systolc 110-120 range.EKG unremarkab le.P: Pt may be over - medicated with BP meds. P: decrease spironolac tone 12.5 mgf/u BP check in 3 weeks. 02754 Gilberto Martinez MD, [facility] Main Office [address] [place] [address] 03/27/2022 11:19:37 03/28/2022 15:39:55 Adult health examination 489774673 Z00.01 Romain, the results here are pretty good. I'll comment on a few things we discussed then make a recommenda tions for your health in the year ahead. Advance care planning 71 0047602 Z71.89 We discussed the concepts of Durable Power of Healthcare and Living de luna- you have both of these. Chronic ki dney disease 438721331 N18.[address] Yemi Hernandez for this. The real functio is fine on today's exam. Hyperlipidemia 49854846 E78.5 Your lipid profile was pretty good on a very small dose of the statin. Hypertensive disorder 38 116081 I10 BP readings at home and today are fine. Hyperuricemia 61814100 E 79.0 CBC and uric acid on allopurino l have been good. Since you have lost a significan t amount of weight, we discussed stopping the allopurina ol entierely and re-checkin g the uric acid in 6 weeks. Prediabetes 615023410 R7 3.03 This has been controlled and resolved with change to diet and exercise. [id number] Gilberto Martinez MD, [facility] Main Office [address] [place] [address] 05/15/2022 11:08:32 05/15/2022 13:25:15 Chronic kidney disease 264739832 N18.[address] Yemi Hernandez for this. The real functio is fine on today's exam. Hypertensive disorder 38 133246 I10 BP readings at home and today are fine. Hyperlipidemia 13556110 E78.5 Your lipid profile was pretty good on a very small dose of the statin. Sinus bradycardia 100302 05 R00.1 Energy much better s/p pacemaker. History of gout 81254988 4 Z87.39 Has been on allopurino l for history of gout. Ghanged diet and lost 60 lbs. P: chk uric acid off of allopurino l. 52791 Gilberto Martinez MD, [facility] Main Office [address] [place] [address] 07/12/2022 14:21:48 07/12/2022 15:10:39 Chronic kidney disease 179152915 N18.[address] Yemi Hernandez for this. The real functio has remained stable. Hypertensive disorder 38 463910 I10 Mild orthostati c hypotensio n. Has lost 60 lbs. Suspect over-medic ated. P: decrease lisinopril to 20mg QD Near syncope 395285148 R 55 See above. Call with BP readings next week. [id number] Gilberto Martinez MD, FACP Main Office [address] [place] [address] 08/20/2022 14:43:51 08/20/2022 15:30:18 Chronic kidney disease 267509004 N18.[address] Yemi Hernandez for this. The real functio has remained stable. Hypertensive disorder 38 957200 I10 Mild orthostati c hypotensio n. Has lost 60 lbs. Suspect over-medic ated. P: decrease lisinopril to 20mg QD BP readings reviewed. Near syncope 341943742 R 55 Had similar episode last MAY. Was seen and evaluated [facility] with negative w/u. Reports has smaller, more frequrnt episodes Labs last month reviewed and fine.No falls.P: reached out to Cardiology re: interogati ng pacemaker for time of noon on Aug. DDx- seizure is in the DD, along with lamonte artery stenosis. . Labs fro last month at [facility] are fine. [id number] Gilberto Martinez MD, FACP Main Office [address] [facility] [address] [place] [address] 10/10/2022 11:06:09 10/10/2022 11:39:50 Prediabetes 514660574 R73.03 This has been controlled and resolved with change to diet and exercise. Hypertensive disorder 38 769731 I10 Has done well taking 1/2 lisinopril (20 mg) QD. Trial of holding spironolac tone Near syncope 071961239 R 55 Had similar episode last MAY. Was seen and evaluated [facility] with negative w/u. Reports has smaller, more frequrnt episodes Labs last month reviewed and fine.No falls.P: reached out to Cardiology on interogati ng pacemaker- it was negative. Neuro w/u negatve. Referred to ENT, w/u in progress. Chronic ki dney disease 161459250 N18.9 The real functio has remained stable. Administra tion of pneumococcal vaccine 19018048 Z23 79581 Gilberto Martinez MD, FACP Main Office [address] [place] [address] 11/02/2022 15:03:00 11/02/2022 15:41:21 Hypertensive disorder 90139752 I10 Has done well taking 1/2 lisinopril (20 mg) QD. resume HCTZ 12.5mg QD Hyperuricemia 37709972 E 79.0 Doing welll off of this with weight loss. chk uric acid Constipation 85785967 K5 9.00 Use Colace [place] [id number] Gilberto Martinez MD, [facility] Main Office [address] [place] [address] 11/21/2022 10:52:44 11/21/2022 13:49:17 Chronic kidney disease 682843630 N18.9 The real functio has remained stable. Hypertensive disorder 38 319139 I10 Has done well taking 1/2 lisinopril (20 mg) QD. resume HCTZ 12.5mg QD BP controlled now. Hyperuricemia 46396355 E 79.0 Doing welll off of this with weight loss. chk uric acid Near syncope 148870403 R 55 Recentrly started on betahistin e by ENT. Had particulrl y bad spell on Nov. P: interogate pacemaker. Continiue tapering up betahistin e. P: chk CBC Constipation 01746530 K5 9.00 Use Colace [place] [address] Gilberto Martinez MD, [facility] Main Office [address] [place] [address] 01/18/2023 12:18:10 01/18/2023 15:32:10 Administration of influenza vaccine 71412869 Z23 Hypertensive disorder 38 930696 I10 Has done well taking 1/2 lisinopril (20 mg) QD. resume HCTZ 12.5mg QD BP controlled now. Chronic ki dney disease 515075759 N18.9 The real functio has remained stable. 12491 Gilberto Martinez MD, [facility] Main Office [address] [place] [address] 04/03/2023 11:26:11 04/03/2023 13:36:09 Adult health examination 837443782 Z00.01 Nocturia 855008278 R35.1 92985 Gilberto Martinez MD, FACP Main Office [address] [place] [address] 04/22/2023 11:45:55 04/22/2023 13:51:04 Advance care planning 087817840 Z71.89 We discussed the concepts of Durable Power of Healthcare and Living de luna- you have both of these. Chronic ki dney disease 130990747 N18.9 The renal function has remains stable. Avoid NSAID's; use Tylenol for pain preferably . Hypertensive disorder 38 244627 I10 Has done well taking lisinopril (20 mg) daily and HCTZ 12.5mg . Hyperlipidemia 96803720 E78.5 Your lipid profile was pretty good on a very small dose of the statin. Prediabetes 300199476 R7 3.03 This has been controlled and resolved, with changes to diet and exercise. Screening for malignant neoplasm of colon 935852695 Z12.11 YOur last colonoscop y was in 2017. In lieu of another colonoscop y, we elected to get a ColoGard which will be shipped to your house. Active or passive immunization 402502669 Z23 We ordered the new RSV vaccine. Adult heal th examination 423359568 Z00.01 Romain, the results here are good. Your PSA rudy from 2 to 3 this year. The prostate exam was benign. We discussed repeating later this Spring when you return for check-up. [address]0939 Gilberto Martinez MD, FACP Main Office [address] [place] [address] 08/13/2023 12:26:27 08/13/2023 16:31:18 Near syncope 492857216 R55 Recentrly started on betahistin e by ENT. Had particulrl y bad spell on Nov. P: interogate pacemaker. Continiue tapering up betahistin e. P: chk CBC Hypertensive disorder 38 921251 I10 Has done well taking lisinopril (20 mg) daily and HCTZ 12.5mg . However, recently has gone up. P: decrease BMI and increase HCTZ 25mg. Continue lisinopri 40mg QD 79888 Gilberto Martinez MD, FACP Main Office [address] [place] [address] 11/11/2023 11:21:15 11/12/2023 12:07:52 Jaundice 70089320 R17 Etiology not clear. Has painless jaundice. Stop allopurina ol; HCTZ; hold simvastati n.Chk LFT's, Hepatitis profile, amylase. lipase. Chk US liver. For now, try warm baths and hydroxyzin e 25 25mg Hypertensive disorder 38 282799 I10 Has done well taking lisinopril (20 mg) daily and HCTZ 12.5mg . Due to jaundice, stop HCTZ. Pruritic disorder 032744 002 L29.9 try Atarax 25mg PO QID PRN. Consider cholestyra mine, pending lab results. 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 HCTZ resumed. Insomnia 480583809 G47.0 0 Trazodone did not work nor Ambien 5mg HS PRN. THe metoprolol at HS has been helpful. Atrial fibrillation 4943 6004 I48.91 Controlled at this time. 12550 Gilberto Martinez MD, FAC Main Office [address] [facility] [address] [place] [address] 01/15/2024 10:56:04 01/15/2024 17:02:47 Insomnia 578511807 G47.00 Trazodone did not work nor Ambien 5mg HS PRN. THe metoprolol at HS has been helpful. 37919 Gilberto Martinez MD, FACP Main Office [address] [facility] [address] [place] [address] 02/05/2024 11:12:12 02/05/2024 14:13:39 Cholangiocarcinoma of biliary tract 997196090 C22.1 Will initiate referal to [facility] for second opinion Chronic ki dney disease 269474609 N18.9 The renal function has remains stable. Avoid NSAID's; use Tylenol for pain preferably . Hyperuricemia 95190255 E 79.0 Doing welll off of this with weight loss. chk uric acid Insomnia 465438045 G47.0 0 Trazodone did not work nor Ambien 5mg HS PRN. THe metoprolol at HS has been helpful. Aortic karli ve regurgitation 38549578 I35.1 Atrial fibrillation 4943 6004 I48.91 Controlled at this time. 22706 Gilberto Martinez MD, FACP Main Office [address] [place] [address] 04/24/2024 10:43:56 04/24/2024 15:50:16 Adult health examination 989936369 Z00.01 Romain, the results here are good. I'll comment on a few things we discussed than make some suggestion s for your health in the year ahead. Nocturia 108158263 R35.1 Decreasini ng fluid intake after dinner can help. Advance care planning 71 5867698 Z71.89 We discussed the concepts of Durable Power of Healthcare and Living de luna- you have both of these. Atrial fibrillation 4943 6004 I48.91 This seems to be stable with rate controlled . Cholangioc arcinoma of biliary tract 327496558 C22.1 Will initiate referal to [facility] for second opinion Chronic ki dney disease 041001841 N18.9 The renal function has remains stable. Avoid NSAID's; use Tylenol for pain preferably . Hypertensive disorder 38 176299 I10 Has done well taking lisinopril (40 mg) daily and spironolac tone 25mg daily. The potassium remains in the normal range. Insomnia 691350254 G47.0 0 You seem to be sleeping better now; perhaps better since finishing chemo. Prediabetes 469608725 R7 3.03 This has been better controlled with changes to diet and exercise. However, the HgbA1c has drifted up to 6.6% We will re-check on your next visit. Osteopenia 210020272 M85 .80 YOu had osteopenia on DEXA last year. We will get another this year see if any medication s need to be prescribed . Health Concerns Section Related Observation LastModified by Organization Detai ls LastModified Time None Recorded Concern Status LastModified by Organization Details LastModified Time None Recorded Advance Directives Directive None Recorded Payers Insurance Date Sequence Insurance Name Policy Number Policy Galeano Covered Member ID Galeano Member ID Guarantor Name 01/18/2023 1 [facility] [id number] Romain Keating Hortensia [id number] Romain Keating Hortensia 04/27/2024 1 [employer] (MEDICARE REPLACEMENT/A DVANTAGE - HMO) Romain Keating Hortensia [id number] Romain Zuri Hortensia Notes Date Note Type Note Provider Name [...] start aggressive chemotherapy with Dr. Mcgee from [facility] next Saturday. A CT scan will be performed after 3 months to assess any response to the tumor. He is scheduled for a port placement next Saturday and his first chemotherapy session on Saturday. He is seeking a second opinion at the [facility]. His blood pressure has been typically in the low 130s over mid 60s, but he does not believe it is severe. However, he has noticed stress readings at his oncologist's office, with a reading of 150/80. He underwent surgical ablation on 09/09/2023. Following his endoscopy, he developed atrial fibrillation, which had been present for an extended period. His office services associate suggested the possibility of cardioversion, so he [...] and 98. A manual read by his office services associate showed normal sinus rhythm. Social History: His daughter works as an oncology nurse in [place]. Gilberto Martinez MD, [facility] [address] [facility], [place], [address], Gilberto Tomlinson 11/27/2023 18:58:15 4 text/html The [...] rhythm. A recent visit to a general linux network administrator confirmed that his EKG results were not [...] in trying it again. Gilberto Martinez MD, [facility] [address], [place], [address], [place] Gilberto Tomlinson 01/15/2024 17:41:32 4 text/html The [...] to articulate his thoughts. He is considering care home and has plans in place should he [...] 4 text/html Patient is here for the [facility] Wellness Program and Subsequent Annual Wellness Exam. During this visit we will review and discuss their Health Risk Assessment and review the various tests and procedures performed as part of the [facility] Annual Wellness Exam. The patient has no current acute medical complaints, nor any recent hospitalizations. Discussion Points for Review during Visit:-Review current medical conditions and specialists' consultations.-Labs and testing review in detail.-Review risks associated w/pain, nutrition, hydration, sleep, and stress, and inactivity. GLORIA Degroot Mark 05/20/2024 16:59:53
--- OUTSIDE RECORDS SUMMARY | 2024-11-05 19:15 | XMS_ITS | Encounter Summary ---
Author Organization [facility] Address [address] [place] [address] Phone Care Team Providers Care Diesel Powerplant Mechanic Helper Name Role Phone Gilberto Martinez MD Primary Care Provider Rossi BLACK MD, Zane Morataya Unavailable [phone] Raudel Childers MD Unavailable [phone] Chris Hart MD Unavailable Charlee Mcmillan Unavailable Unavailable Agustina Li MD PhD Unavailable [phone] Encounter Details Date Type Department Care Team (Late st Contact Info) Description 11/05/2024 Surgical Prehabilita tion and Readiness Subsequent Outreach [facility] Department of Surgery [address] [place] [address] Serge August [facility] Social History Tobacco Use Types Packs/Day Years [...] materials from doctor or pharmacy Never 11/05/2024 [facility] Utilities Answer Date Recorded In [...] week 10/19/2024 How often do you attend [facility] or [facility] services? 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) documented as of this encounter Visit Diagnoses Not on filedocumented in this encounter Care Teams Diesel Powerplant Mechanic Helper Relationship Specialty Start Date End Date Gilberto Martinez MD [address] [facility] [facility] [address] [place] [address] PCP - General 07/11/16 Zane Richey III, MD [address] [facility] [address] [place] [address] Consulting Physician Cardiology 05/18/21 Raudel Childers MD [address] [facility] [place] [id number] [place] [address] Consulting Physician Colon and Rectal Surgery 12/26/21 Chris Hart MD [address] [facility] [address] [place] [address] Undertaker Assistant Cardiology 03/17/24 Charlee Mcmillan RMA Surgical Prehabilitation and Readiness (SPAR) Coordinator 06/11/24 Agustina Li MD PhD [address] [facility] [address] [place] [address] Medical Oncologist/Mine Expert Medical Oncology 09/09/24 documented as of this encounter
--- OUTSIDE RECORDS SUMMARY | 2024-11-05 19:15 | XMS_ITS ---
Author Organization [facility] Address [address] [place] [address] Care Team Providers Care Inbound Sales Manager Name Role Phone Gilberto Martinez MD Primary Care Provider [phone] Rossi BLACK MD, Curtis Merle Unavailable [phone] Raudel Childers MD Unavailable [phone] Chris Hart MD Unavailable [phone] Charlee Mcmillan Unavailable Unavailable Agustina Li MD PhD Unavailable [phone] Transplant Episode Liver Candidate [facility] ([place], [place]) [facility] waitlisted on 07/14/2024 Marked as Removed on 11/04/2024 Reason: 13 - Candidate Condition Deteriorated, Too Sick for Transplant Liver CoordinatorMariama Parisi RN Fax: N/A Email: N/A Scores Score Value Updated Expires Exceptions/Gabrielle sons CPRA Not available UNOS MELD 15 10/07/2024 01/05/2025 MELD (Calc) 15 11/01/2024 [place] 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, B iliary Tract Carcinoma) Care Team Name Role Phone Fax Email Mariama Parisi RN Liver Coordinator [phone] N/A N/A RESHMA Cleary Referring Physician [phone] N/A Mariama Didi Francia, RN Secondary Coordinator N/A N/A N/A Nimisha Hauser Primary Dictaphone Technician N/A N/A N/A Jennifer Gamboa Cloth Inspector [phone] N/A N/A Events Pre-Transplant Referred: 04/09/2024 Evaluation began: 05/15/2024 Committee: 07/07/2024 Center waitlisted: 07/14/2024 Appointments (10/06/2024 - 12/06/2024) When With Visit Type Description 10/12/[address] IMAGING VISIT 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
--- OUTSIDE RECORDS SUMMARY | 2024-11-06 00:19 | XMS_ITS | Encounter Summary ---
Author Organization [facility] Address [address] [place] [address] Care Team Providers Care Peanut Sheller Name Role Phone Gilberto Martinez MD Primary Care Provider Rossi BLACK MD, Zane Morataya Unavailable [phone] Raudel Childers MD Unavailable [phone] Gorge Contreras MD PhD Unavailable [phone] Chris Hart MD Unavailable Mei Cohen RN Unavailable [phone] Ely Tejada Unavailable Charlee Mcmillan Unavailable Unavailable Mariama Parisi RN Unavailable Agustina Li MD PhD Unavailable [phone] Agustina Li MD PhD Unavailable Encounter Details Date Type Department Care Team (Late st Contact Info) Description 05/29/2024 Treatment [facility] Radiation Oncology [address] [facility] [place], [place] [id number] Gorge Garza MD PhD [address] [facility] [address] [place] [address] Hilar cholangiocarcinoma (HCC) (Primary Dx) Social History Tobacco Use Types Packs/Day Years Used Date Smoking Tobacco: Former Cigarettes 0.3 2 Q uit: 1992 Pipe Cigars Smokeless Tobacco: Never [facility] Utilities Answer Date Recorded In the [...] often do you attend chur ch or voodoo services? More than 4 times per year [...] Date Recorded PHQ-2 Total Score 0 03/16/2024 [facility] of Occupat ional Health - Occupational [...] any time in the past 12 m [facility], were you homeless or living in a mcc (including now)? No 03/16/2024 Personal Safety Answer Date Recorded Have you ever been in or are you currently in a harmful physical or emotional relationship or is someone making you feel afraid or unsafe? 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 Gender Identity Male 12/06/2019 4:39 PM [...] documented as of this encounter Care Teams Peanut Sheller Relationship Specialty Start Date End Date Gilberto Martinez MD [address] [facility] [address] [place] [address] PCP - General 07/11/16 Zane Richey III, MD [address] [facility] [address] [place] [address] Consulting Physician Cardiology 05/18/21 Raudel Childers MD [id number] [place] [address] Consulting Physician Colon and Rectal Surgery 12/26/21 Gorge Contreras MD PhD [address] [place] [address] Medical Oncologist Medical Oncology 11/26/23 09/08/24 Chris Hart MD [address] [facility] [address] [place] [address] Watch Crystal Edge Grinder Cardiology 03/17/24 Mei Cohen, RN [address] [facility] [address] [place] [address] Heater Operator Helper 04/09/24 5 Ely Tejada PA [id number] [place] [address] Referring Physician Physician Director Community Organization 04/09/24 Charlee Mcmillan RMA Surgical Prehabilitation and Readiness (SPAR) Coordinator 06/11/24 Mariama Parisi RN [address] [facility] [address] [place] [address] Heater Operator Helper 08/07/24 5 Agustina Li MD PhD [address] [place] [address] Medical Oncologist/Shearing Shed Hand Medical Oncology 09/09/24 Agustina Li MD PhD [address] [facility] [address] [place] [address] Medical Oncologist/Shearing Shed Hand Medical Oncology 10/07/24 10/16/24 documented as of this encounter
--- OUTSIDE RECORDS SUMMARY | 2024-11-06 00:19 | XMS_ITS | Encounter Summary ---
Author Organization [facility] Address [address] [place] [address] Phone Care Team Providers Care Private Sector Executive Name Role Phone Gilberto Martinez MD Primary Care Provider [phone] Rossi BLACK MD, Zane Morataya Unavailable [phone] Raudel Childers MD Unavailable [phone] Chris Hart MD Unavailable Charlee Mcmillan Unavailable Unavailable Agustina Li MD PhD Unavailable [phone] Encounter Details Date Type Department Care Team (Late st Contact Info) Description 11/05/2024 Telephone [facility] Oncology [facility] Floor [address] [place] [address] Marion Aden RN Social History [...] doctor or pharmacy Never 11/05/2024 [facility] Utilities Answer Date Recorded In the past [...] often do you attend chur ch or rastafarian services? 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 Patient states he is interested in Palliative chemotherapy. We discussed that I will contact him on 11/09/2024 to confirm final blood culture and confirmation of whether he will resume the Capecitabine or want until [facility] on 11/16. Patient verbalized understanding. 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) documented as of this encounter Visit Diagnoses Not on filedocumented in this encounter Care Teams Private Sector Executive Relationship Specialty Start Date End Date Gilberto Martinez MD [address] [facility] [address] [place] [address] PCP - General 07/11/16 Zane Richey III, MD [address] [facility] [address] [place] [address] Consulting Physician Cardiology 05/18/21 Raudel Childers MD [id number] [place] [address] Consulting Physician Colon and Rectal Surgery 12/26/21 Chris Hart MD [address] [facility] [address] [place] [address] Sql Server Consultant Cardiology 03/17/24 Charlee Mcmillan RMA Surgical Prehabilitation and Readiness (SPAR) Coordinator 06/11/24 Agustina Li MD PhD [address] [place] [address] Medical Oncologist/Automation And Controls Instructor Medical Oncology 09/09/24 documented as of this encounter
--- OUTSIDE RECORDS SUMMARY | 2024-11-06 00:19 | XMS_ITS | Encounter Summary ---
Author Organization [facility] Address [address] [place] [address] Care Team Providers Care Revenue Enforcement Collection Agent Name Role Phone Gilberto Martinez MD Primary Care Provider Rossi BLACK MD, Zane Morataya Unavailable [phone] Raudel Childers MD Unavailable Gorge Contreras MD PhD Unavailable [phone] Chris Hart MD Unavailable Mei Cohen RN Unavailable [phone] Ely Tejada Unavailable Charlee Mcmillan Unavailable Unavailable Mariama Parisi RN Unavailable [phone] Agustina Li MD PhD Unavailable Agustina Li MD PhD Unavailable [phone] Encounter Details Date Type Department Care Team (Late st Contact Info) Description 05/29/2024 Therapy [facility] Radiation Oncology [address] [facility] [place] [address] Jamia Juarez, ALMITA Hilar cholangiocarcinoma (HCC) (Primary Dx) Social History Tobacco Use Types Packs/Day Years Used Date Smoking Tobacco: Former Cigarettes 0.3 2 Q uit: 1992 Pipe Cigars Smokeless Tobacco: Never [facility] Utilities Answer Date Recorded In the past 12 months has th e [employer], [employer], or water [employer] threatened to shut off services in your [...] any clubs o r organizations such as mu-ism groups, unions, fraternal or athletic groups, or [...] Recorded PHQ-2 Total Score 0 03/16/2024 [facility] - Occupational Stress Questionnaire Answer Date Recorded [...] time in the past 12 m [facility], were you homeless or living in a assisted (including now)? No 03/16/2024 Personal Safety Answer Date Recorded Have you ever been in or are you currently in a harmful physical or emotional relationship or is someone making you feel afraid or unsafe? 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 Gender Identity Male 12/06/2019 4:39 PM [...] came to Inpatient area to meet with ONICS TECHNICIAN documented in this encounter Plan of Treatment [...] documented as of this encounter Care Teams Revenue Enforcement Collection Agent Relationship Specialty Start Date End Date Gilberto Martinez MD [address] [facility] [facility] [address] [place] [address] PCP - General 07/11/16 Zane Richey III, MD [address] [facility] [address] [place] [address] Consulting Physician Cardiology 05/18/21 Raudel Childers MD [id number] [place] [address] Consulting Physician Colon and Rectal Surgery 12/26/21 Gorge Contreras MD PhD [address] [place] [address] Medical Oncologist Medical Oncology 11/26/23 09/08/24 Chris Hart MD [address] [facility] [address] [place] [address] Labor Arbitrator Cardiology 03/17/24 Mei Cohen, ALMITA [address] [facility] [address] [place] [address] Agricultural Chemicals Inspector 04/09/24 5 Ely Tejada PA [id number] [place] [address] Referring Physician Physician Sprinkler Truck Driver 04/09/24 Charlee Mcmillan RMA Surgical Prehabilitation and Readiness (SPAR) Coordinator 06/11/24 Mariama Parisi RN [address] [facility] [address] [place] [address] Agricultural Chemicals Inspector 08/07/24 5 Agustina Li MD PhD [address] [place] [address] Medical Oncologist/Glass Silverer Medical Oncology 09/09/24 Agustina Li MD PhD [address] [facility] [address] [place] [address] Medical Oncologist/Glass Silverer Medical Oncology 10/07/24 10/16/24 documented as of this encounter
--- OUTSIDE RECORDS SUMMARY | 2024-11-06 00:19 | XMS_ITS ---
Author Organization [facility] Address [address] [place] [address] Care Team Providers Care Crew Supervisor Name Role Phone Gilberto Martinez MD Primary Care Provider Rossi BLACK MD, Curtis Merle Unavailable [phone] Raudel Childers MD Unavailable Chris Hart MD Unavailable Charlee Mcmillan Unavailable Unavailable Agustina Li MD PhD Unavailable [phone] Active Problems Patient Care Coordination No te [...] be able to pay for it at ri); keep only loperamide as prn. Assessment & [...] be able to pay for it at ri); keep only loperamide as prn. Assessment & [...] 9 y - s/p Vit K in [facility]. S/p vitamin K 2.5 mg oral [...] 9 y - s/p Vit K in [facility]. S/p vitamin K 2.5 mg oral once 08/22, s/p Vit K 10 IV 08/23 - INR 1.63 08/24-- Resumed warfarin home dose 2 mg daily (08/24-p) - Daily INR Assessment & Plan (09/05/2024 11:31 AM CDT): - Secondary to nausea/vomiting/diarhea while on warfarin. INR > 9 y - s/p Vit K in [facility]. S/p vitamin K 2.5 mg oral [...] 9 y - s/p Vit K in [facility]. S/p vitamin K 2.5 mg oral once 08/22, s/p Vit K 10 IV 08/23 - INR 1.63 08/24-- Resumed warfarin home dose 2 mg daily (08/24-p) - Daily INR Assessment & Plan (09/02/2024 10:30 AM CDT): - Secondary to nausea/vomiting/diarhea while on warfarin. INR > 9 y - s/p Vit K in [facility]. S/p vitamin K 2.5 mg oral once 08/22, s/p Vit K 10 IV 08/23 - INR 1.63 08/24-- Resumed warfarin home dose 2 mg daily (08/24-p) - Daily INR Assessment & Plan (09/01/2024 4:08 PM CDT): - Secondary to nausea/vomiting/diarhea while on warfarin. INR > 9 y - s/p Vit K in [facility]. S/p vitamin K 2.5 mg oral once 08/22, s/p Vit K 10 IV 08/23 - INR 1.63 08/24-- Resumed warfarin home dose 2 mg daily (08/24-p) - Daily INR Assessment & Plan (08/31/2024 11:42 AM CDT): - Secondary to nausea/vomiting/diarhea while on warfarin INR > 9 y - s/p Vit K in [facility] S/p vitamin K 2.5 mg oral once 08/22, s/p Vit K 10 IV 08/23 INR 1.63 08/24-- Resumed warfarin home dose 2 mg daily (08/24-p) Daily INR See atrial fibrillation Assessment & Plan (08/30/2024 12:11 PM CDT): - Secondary to nausea/vomiting/diarhea while on warfarin INR > 9 y - s/p Vit K in [facility] S/p vitamin K 2.5 mg oral once 08/22, s/p Vit K 10 IV 08/23 INR 1.63 08/24-- Resumed warfarin home dose 2 mg daily (08/24-p) Daily INR Assessment & Plan (08/29/2024 1:59 PM CDT): - Secondary to nausea/vomiting/diarhea while on warfarin INR > 9 y - s/p Vit K in [facility] S/p vitamin K 2.5 mg oral once 08/22, s/p Vit K 10 IV 08/23 INR 1.63 08/24-- Resumed warfarin home dose 2 mg daily (08/24-p) Daily INR Assessment & Plan (08/28/2024 5:10 PM CDT): - Secondary to nausea/vomiting/diarhea while on warfarin INR > 9 y - s/p Vit K in [facility] S/p vitamin K 2.5 mg oral once 08/22, s/p Vit K 10 IV 08/23 INR 1.63 08/24-- Resumed warfarin home dose 2 mg daily (08/24-p) Daily INR Assessment & Plan (08/27/2024 6:05 PM CDT): - Secondary to nausea/vomiting/diarhea while on warfarin INR > 9 y - s/p Vit K in [facility] S/p vitamin K 2.5 mg oral once 08/22, s/p Vit K 10 IV 08/23 INR 1.63 08/24-- Resumed warfarin home dose 2 mg daily (08/24-p) Daily INR Assessment & Plan (08/26/2024 5:10 PM CDT): - Secondary to nausea/vomiting/diarhea while on warfarin INR > 9 y - s/p Vit K in [facility] S/p vitamin K 2.5 mg oral once 08/22, s/p Vit K 10 IV 08/23 INR 1.63 08/24-- Resumed warfarin home dose 2 mg daily (08/24-p) Daily INR Assessment & Plan (08/25/2024 6:44 PM CDT): - Secondary to nausea/vomiting/diarhea while on warfarin INR > 9 y - s/p Vit K in [facility] S/p vitamin K 2.5 mg oral once 08/22, s/p Vit K 10 IV 08/23 INR 1.63 08/24-- Resumed warfarin home dose 2 mg daily (08/24-p) Daily INR Assessment & Plan (08/24/2024 1:31 PM CDT): - Secondary to nausea/vomiting/diarhea while on warfarin INR > 9 y - s/p Vit K in [facility] S/p vitamin K 2.5 mg oral once 08/22, s/p Vit K 10 IV 08/23 INR 1.63 08/24-- Resumed warfarin home dose 2 mg daily (08/24-p) Assessment & Plan (08/23/2024 12:11 PM CDT): - Secondary to nausea/vomiting/diarrhea while on warfarin INR > 9 y - s/p Vit K in [facility] - , continue to hold warfarin, bleeding precautions ordered Ordered vitamin K 2.5 mg oral once 08/22 INR more than 9 today, still having poor oral intake with diarrhea, will give IV vitamin K 10 mg once 08/23 Assessment & Plan (08/22/2024 12:03 PM CDT): - Secondary to nausea/vomiting/diarrhea while on warfarin INR > 9 y - s/p Vit K in [facility] - , continue to hold warfarin, bleeding precautions ordered Ordered vitamin K 2.5 mg oral once 08/22 Oral intake encouraged. Assessment & Plan (08/21/2024 9:15 PM CDT): - INR > 9 with hematuria noted recently - s/p Vit K in [facility] - Trend INR in AM, continue [...] 025 Assessment & Plan (06/09/2024 8:50 PM PURCHASE REQUEST EDITOR): -Remains compliant sotalol -increase to 80 mg [...] 7 Assessment & Plan (03/16/2024 5:32 PM PURCHASE REQUEST EDITOR): - H/H- 8.01/30 Monitor CBC closely Lactic acidosis 03/15/2024 Assessment & Plan (03/16/2024 5:29 PM PURCHASE REQUEST EDITOR): Lactate 4 in [facility]. Reports normal PO intake. Improved to 2.3 after 1L IVF. Unclear etiology. Lactate lateralized on a.m. labs Hypomagnesemia 03/10/2024 Hypophosphatemia 02/11/2024 Dehydration 02/10/2024 Mood disorder 01/18/2024 Assessment & Plan (01/18/2024 8:13 PM CDT): Continue home citalopram Shortness of breath 01/18/2024 Assessment & Plan (03/16/2024 5:31 PM PURCHASE REQUEST EDITOR): P/w SOB, fatigue, generalized weakness. Similar episodes in the past w/ unremarkable workup. In [facility], Tmax 99.4, satting well on RA, [...] awaiting transplant. He was recently adm to [facility] from 08/21 - 09/07/24 w/ N/V/D, [...] ERCP and stent exchange on 10/15 at [facility] Currently he remains on reduced dose capecitabine [...] awaiting transplant. He was recently adm to [facility] from 08/21 - 09/07/24 w/ N/V/D, [...] ERCP and stent exchange on 10/15 at [facility] Currently he remains on reduced dose capecitabine [...] awaiting transplant. He was recently adm to [facility] from 08/21 - 09/07/24 w/ N/V/D, [...] ERCP and stent exchange on 10/15 at [facility] Currently he remains on reduced dose capecitabine [...] awaiting transplant. He was recently adm to [facility] from 08/21 - 09/07/24 w/ N/V/D, [...] ERCP and stent exchange on 10/15 at [facility] Currently he remains on reduced dose capecitabine [...] awaiting transplant. He was recently adm to [facility] from 08/21 - 09/07/24 w/ N/V/D, [...] ERCP and stent exchange on 10/15 at [facility] Currently he remains on reduced dose capecitabine [...] awaiting transplant. He was recently adm to [facility] from 08/21 - 09/07/24 w/ N/V/D, [...] ERCP and stent exchange on 10/15 at [facility] Currently he remains on reduced dose capecitabine (reduced dose), q2 weeks Assessment & Plan (10/17/2024 12:39 PM CDT): Follows Dr. 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 Since then he has underwent 8 cycles of Gemcitabine + cisplatin + nab-paclitaxel and is currently on maintenance capecitabine and is awaiting transplant. He was recently adm to [facility] from 08/21 - 09/07/24 w/ N/V/D, [...] ERCP and stent exchange on 10/15 at [facility] Currently he remains on reduced dose capecitabine (reduced dose), q2 weeks Assessment & Plan (10/16/2024 3:04 PM CDT): follows Dr. 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 Since then he has underwent 8 cycles of Gemcitabine + cisplatin + nab-paclitaxel and is currently on maintenance capecitabine and is awaiting transplant. He was recently adm to [facility] from 08/21 - 09/07/24 w/ N/V/D, [...] ERCP and stent exchange on 10/15 at [facility] Currently he remains on reduced dose capecitabine (reduced dose), q2 weeks Assessment & Plan (10/15/2024 8:47 PM CDT): follows Dr. 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 Since then he has underwent 8 cycles of Gemcitabine + cisplatin + nab-paclitaxel and is currently on maintenance capecitabine and is awaiting transplant. He was recently adm to [facility] from 08/21 - 09/07/24 w/ N/V/D, [...] ERCP and stent exchange on 10/15 at [facility] Currently he remains on reduced dose capecitabine [...] capecitabine Assessment & Plan (03/16/2024 5:32 PM PURCHASE REQUEST EDITOR): Dx 11/2023 after presenting with jaundice in [...] resectable. Planned for port 12/01 and start Simmesport+Cis+Abrax after, which will be postponed for 1wk [...] 10/24/2023 Assessment & Plan (03/15/2024 9:54 PM PURCHASE REQUEST EDITOR): -cont betahistine 24mg tid (home supply) Assessment [...] 02/26/2023 Assessment & Plan (06/09/2024 8:48 PM PURCHASE REQUEST EDITOR): -Status post dual-chamber pacemaker placement -Device interrogation [...] above Assessment & Plan (06/09/2024 8:49 PM PURCHASE REQUEST EDITOR): -Status post radiofrequency catheter ablation with Dr. Richey -Remains compliant on apixaban and sotalol -Noted to have a sustained episode recently causing symptoms -Increase sotalol to 80 mg b.i.d. -Obtain an EKG after 3 doses to evaluate QT interval -Follow up in 6 months for 12 lead EKG, device interrogation, and clinic visit Assessment & Plan (03/15/2024 10:22 PM PURCHASE REQUEST EDITOR): S/p PVI, CTI ablation 09/09/23. Follows w/ [...] AM CDT): Asymptomatic, device-detected AF. Low burden. CKFCX4LYSB = 2. --Continue apixaban 5 mg BID Lightheadedness 03/12/2022 Small bowel obstruction 12/23/2021 Sinus bradycardia 05/29/2021 Sick sinus syndrome 05/19/2021 Overview (05/19/2021): Added automatically from request for surgery [id number] Assessment & Plan (03/15/2024 9:53 PM PURCHASE REQUEST EDITOR): -s/p PPM Assessment & Plan (01/21/2024 1:23 [...] device function. --Continue remote device f/u via [employer] 05/16/2021 Advance care planning 03/22/2021 SYLVIE (obstructive [...] CPAP Assessment & Plan (03/16/2024 5:27 PM PURCHASE REQUEST EDITOR): Continue CPAP qhs Assessment & Plan (01/21/2024 [...] needed Assessment & Plan (03/16/2024 5:27 PM PURCHASE REQUEST EDITOR): Continue Amlodipine, Lisinopril, HCTZ Assessment & Plan [...] statin Assessment & Plan (03/16/2024 5:25 PM PURCHASE REQUEST EDITOR): Continue statin Assessment & Plan (01/18/2024 7:01 [...] Plan (10/23/2024 7:49 AM CDT): Culture form [facility] positive for gram negative bacilli (verbal report per patient). Prior culture in 2023 positive for klebsiella (R: ampicillin) Given fever of 100.9 on 10/13, positive blood culture- for E.coli(resistant to multiple ABX), recent ERCP - will opt to treat as cholangitis., negative UA. Start Zosyn, meropenem EOT 10/22 F/u b/c on 10/15-no growth Assessment & Plan (10/22/2024 10:33 AM CDT): Culture form [facility] positive for gram negative bacilli (verbal report per patient). Prior culture in 2023 positive for klebsiella (R: ampicillin) Given fever of 100.9 on 10/13, positive blood culture- for E.coli(resistant to multiple ABX), recent ERCP - will opt to treat as cholangitis., negative UA. Start Zosyn ,--meropenem EOT 10/22 F/u b/c on 10/15-no growth Assessment & Plan (10/21/2024 10:46 AM CDT): Culture form [facility] positive for gram negative bacilli (verbal report per patient). Prior culture in 2023 positive for klebsiella (R: ampicillin) Given fever of 100.9 on 10/13, positive blood culture- for E.coli(resistant to multiple ABX), recent ERCP - will opt to treat as cholangitis., negative UA. Start Zosyn ,--meropenem EOT 10/22 F/u b/c on 10/15-ngtd Assessment & Plan (10/20/2024 10:21 AM CDT): Culture form [facility] positive for gram negative bacilli (verbal report per patient). Prior culture in 2023 positive for klebsiella (R: ampicillin) Given fever of 100.9 on 10/13, positive blood culture- for E.coli(resistant to multiple ABX), recent ERCP - will opt to treat as cholangitis., negative UA. Start Zosyn ,--meropenem EOT 10/22 F/u b/c on 10/15-ngtd Assessment & Plan (10/19/2024 1:30 PM CDT): Culture form [facility] positive for gram negative bacilli (verbal report per patient). Prior culture in 2023 positive for klebsiella (R: ampicillin) Given fever of 100.9 on 10/13, positive blood culture- for E.coli(resistant to multiple ABX), recent ERCP - will opt to treat as cholangitis., negative UA. Start Zosyn , anticipate to switch to oral once records form [facility] is found. F/u b/c on 10/15-ngtd ID consult for ESBL E.coli and ABX recs. Assessment & Plan (10/18/2024 11:27 AM CDT): Culture form [facility] positive for gram negative bacilli (verbal report per patient). Prior culture in 2023 positive for klebsiella (R: ampicillin) Given fever of 100.9 on 10/13, positive blood culture- for E.coli(susceptibilities pending), recent ERCP - will opt to treat as cholangitis., negative UA. Start Zosyn , anticipate to switch to oral once records form [facility] is found. Requested records 10/16 F/u b/c on 10/15-ngtd Assessment & Plan (10/17/2024 12:39 PM CDT): Culture form [facility] positive for gram negative bacilli (verbal report per patient). Prior culture in 2023 positive for klebsiella (R: ampicillin) Given fever of 100.9 on 10/13, positive blood culture- for E.coli, recent ERCP - will opt to treat as cholangitis., negative UA. Start Zosyn , anticipate to switch to oral once records form [facility] is found. Requested records 10/16 F/u b/c on 10/15-ngtd Assessment & Plan (10/16/2024 3:04 PM CDT): Culture form [facility] positive for gram negative bacilli (verbal report per patient). Prior culture in 2023 positive for klebsiella (R: ampicillin) Given fever of 100.9 on 10/13, positive blood culture, recent ERCP - will opt to treathim as cholangitis., negative UA. Start Zosyn , anticipate to switch to oral once records form [facility] is found. Requested records 10/16 F/u b/c on 10/15 Assessment & Plan (10/15/2024 8:47 PM CDT): Culture form [facility] positive for gram negative bacilli (verbal report per patient). Prior culture in 2023 positive for klebsiella (R: ampicillin) Given fever of 100.9 on 10/13, positive blood culture, recent ERCP - will opt to treathim as cholangitis., negative UA. Start Zosyn , anticipate to switch to oral once records form [facility] is found. F/u b/c on 10/15 IVF [...]
--- OUTSIDE RECORDS SUMMARY | 2024-11-06 00:19 | XMS_ITS | Encounter Summary ---
Author Organization [facility] Address [address] [place] [address] Phone Care Team Providers Care Project Development Director Name Role Phone Gilberto Martinez MD Primary Care Provider Rossi BLACK MD, Zane Morataya Unavailable [phone] Raudel hCilders MD Unavailable [phone] Chris Hart MD Unavailable Ely Tejada Unavailable Charlee Mcmillan Unavailable Unavailable Mariama Parisi RN Unavailable [phone] Agustina Li MD PhD Unavailable [phone] Agustina Li MD PhD Unavailable Encounter Details Date Type Department Care Team (Late st Contact Info) Description 10/13/[address] [facility] [address] [facility] [address] [place] [address] Bebe Sage, RN Social History [...] materials from doctor or pharmacy Sometimes 09/08/2024 [facility] Utilities Answer Date Recorded In the past 12 months has th e [employer], [employer], oil, or water [employer] threatened to shut off services in your [...] How often do you attend chur or moravian services? More than 4 times per year 08/24/2024 Do you belong to any clubs o r organizations such as sikh groups, unions, fraternal or athletic groups, or [...] Date Recorded PHQ-2 Total Score 0 03/16/2024 [facility] - Occupational Stress Questionnaire Answer Date [...] were you homeless or living in a fci (including now)? No 08/24/2024 Personal Safety Answer Date Recorded Have you ever been in or are you currently in a harmful physical or emotional relationship or is someone making you feel afraid or unsafe? 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 They did an x [...] will work on getting patient's records from [place]. Nothing further todo at this time. * [...] AM. I advised he be seen tonight. [facility] has no appointments. He does not want to go to [facility]. He will go locally to [facility]. I asked him to please check in with his clinical team prior to taking his morning dose of capecitabine. I did speak with the RN at [facility] in triage. Messagerouted to Dr. Li's team. [...] documented as of this encounter Care Teams Project Development Director Relationship Specialty Start Date End Date Gilberto Martinez MD [address] [place] [address] PCP - General 07/11/16 Zane Richey III, MD [address] [place] [address] Consulting Physician Cardiology 05/18/21 Raudel Childers MD [id number] [place] [address] Consulting Physician Colon and Rectal Surgery 12/26/21 Chris Hart MD [address] [facility] [address] [place] [address] Logistics Service Representative Cardiology 03/17/24 Ely Tejada PA [id number] [place] [address] Referring Physician Physician Tele Rn 04/09/24 Charlee Mcmillan RMA Surgical Prehabilitation and Readiness (SPAR) Coordinator 06/11/24 Mariama Parisi, RN [address] [facility] [address] [place] [address] Bleach Machine Operator 08/07/24 5 Agustina Li MD PhD [address] [place] [address] Medical Oncologist/Replanter Medical Oncology 09/09/24 Agustina Li MD PhD [address] [facility] [address] [place] [address] Medical Oncologist/Replanter Medical Oncology 10/07/24 10/16/24 documented as of this encounter
--- OUTSIDE RECORDS SUMMARY | 2024-11-06 00:19 | XMS_ITS | Encounter Summary ---
Author Organization [facility] Healthcare Address [address] [place] [address] Care Team Providers Care Solar Photovoltaic Crew Lead Name Role Phone Gilberto Martinez MD Primary Care Provider Rossi BLACK MD, Zane Morataya Unavailable [phone] Raudel Childers MD Unavailable Chris Hart MD Unavailable Ely Tejada Unavailable Charlee McmillanA Unavailable Unavailable Mariama Parisi RN Unavailable Agustina Li MD PhD Unavailable [phone] Agustina Li MD PhD Unavailable Encounter Details Date Type Department Care Team (Late st Contact Info) Description 09/17/2024 Results Follow-Up [facility] Transplant Liver [address] [facility] [phone] [place] [address] Mariama Parisi, RN [address] [facility] [address] [place] [address] Cancer antigen 19-9, Comprehensive metabolic [...] materials from doctor or pharmacy Sometimes 09/08/2024 [facility] Utilities Answer Date Recorded In the past 12 months has e [employer], oil, or water [employer] threatened to shut off services in your [...] often do you attend chur ch or latter day services? More than 4 times per year 08/24/2024 Do you belong to any clubs o r organizations such as moravian groups, unions, fraternal or athletic groups, or [...] Score 0 03/16/2024 [facility] [place] [facility]at [facility] - Occupational Stress [...] any time in the past 12 m [facility], were you homeless or living in a residential (including now)? No 08/24/2024 Personal Safety Answer Date Recorded Have you ever been in or are you currently in a harmful physical or emotional relationship or is someone making you feel afraid or unsafe? 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 Gender Identity Male 12/06/2019 4:39 PM CDT [...] documented as of this encounter Care Teams Solar Photovoltaic Crew Lead Relationship Specialty Start Date End Date Gilberto Martinez MD [address] [address] PCP - General 07/11/16 Zane Richey III, MD [address] [facility] [address] [place] [address] Consulting Physician Cardiology 05/18/21 Raudel Childers MD [id number] [place] [address] Consulting Physician Colon and Rectal Surgery 12/26/21 Chris Hart MD [address] [address] Geotechnical Operating Engineer Cardiology 03/17/24 Eyl Tejada PA [id number] [place] [address] Referring Physician Physician Electronic Coils Supervisor 04/09/24 Charlee Mcmillan RMA Surgical Prehabilitation and Readiness (SPAR) Coordinator 06/11/24 Mariama Parisi, RN [address] [facility] [address] [place] [address] Racebook Writer 08/07/24 5 Agustina Li MD PhD [address] [place] [address] Medical Oncologist/Director Of Development And Marketing Medical Oncology 09/09/24 Agustina Li MD PhD [address] [facility] [address] [place] [address] Medical Oncologist/Director Of Development And Marketing Medical Oncology 10/07/24 10/16/24 documented as of this encounter
--- OUTSIDE RECORDS SUMMARY | 2024-11-06 00:19 | XMS_ITS | Encounter Summary ---
Author Organization [facility] Address [address] [place] [address] Care Team Providers Care Soda Column Operator Name Role Phone Gilberto Martinez MD Primary Care Provider [phone] Rossi BLACK MD, Zane Morataya Unavailable [phone] Raudel Childers MD Unavailable Aarti Robles RN Unavailable [phone] Gorge Contreras MD PhD Unavailable [phone] Chris Hart MD Unavailable Mei Cohen RN Unavailable [phone] Ely Tejada Unavailable Charlee Mcmillan Unavailable Unavailable Mariama Parisi RN Unavailable Agustina Li MD PhD Unavailable [phone] Agustina Li MD PhD Unavailable Encounter Details Date Type Department Care Team (Late st Contact Info) Description 11/15/2023 Documentation [facility] Case Management [address] [place] [address] Skylar Peng, RN Social History Tobacco Use Types Packs/Day Years Used Date Smoking Tobacco: Former Cigarettes 0.3 2 Q uit: 1993 Pipe Cigars Smokeless Tobacco: Never [facility] Utilities Answer Date Recorded In the past 12 months has e [employer], [employer], oil, or water [employer] threatened to shut off services in your [...] How often do you attend chur or yarsani services? More than 4 times per year 11/18/2023 Do you belong to any clubs o r organizations such as caodaism groups, unions, fraternal or athletic groups, or [...] and heating? Not hard at all 11/18/2023 [place] [place] [facility] Occup[facility] ional [facility] - Occupational Stress [...] any time in the past 12 m [facility], were you homeless or living in a chcf (including now)? No 11/18/2023 Personal Safety Answer Date Recorded Have you ever been in or are you currently in a harmful physical or emotional relationship or is someone making you feel afraid or unsafe? 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 [...] COVID: Suspected 03/15/2024 03/15/2024 03/15/2024 5:59 PM SILVICULTURE PROFESSOR C. difficile suspected 08/19/2024 08/19/202408/20 3:07 AM [...] documented as of this encounter Care Teams Soda Column Operator Relationship Specialty Start Date End Date Gilberto Martinez MD [address] [facility] [address] [place] [address] PCP - General 07/11/16 Zane Richey III, MD [address] [facility] [address] [place] [address] Consulting Physician Cardiology 05/18/21 Raudel Childers MD [id number] [place] [address] Consulting Physician Colon and Rectal Surgery 12/26/21 Aarti Robles RN [address] [facility] [address] [place] [address] SHOP Outpatient Nanofabrication Specialist 11/18/23 12/16/23 Gorge Contreras MD PhD [address] [place] [address] Medical Oncologist Medical Oncology 11/26/23 09/08/24 Chris Hart MD [address] [facility] [address] [place] [address] Nc Manager Cardiology 03/17/24 Mei Cohen, RN [address] [facility] [address] [place] [address] Gasoline Power Shovel Operator 04/09/24 5 Ely Tejada PA [address] [facility] [id number] [place] [address] Referring Physician Physician Professional Development Instructor 04/09/24 Charlee Mcmillan RMA Surgical Prehabilitation and Readiness (SPAR) Coordinator 06/11/24 Mariama Parisi, RN [address] [facility] [address] [place] [address] Gasoline Power Shovel Operator 08/07/24 5 Agustina Li MD PhD [address] [place] [address] Medical Oncologist/Fuel Operator Medical Oncology 09/09/24 Agustina Li MD PhD [address] [facility] [address] [place] [address] Medical Oncologist/Fuel Operator Medical Oncology 10/07/24 10/16/24 documented as of this encounter
--- OUTSIDE RECORDS SUMMARY | 2024-11-06 00:19 | XMS_ITS | Encounter Summary ---
Author Organization [facility] Address [address] [place] [address] Phone Care Team Providers Care Packer Insulation Name Role Phone Gilberto Martinez MD Primary Care Provider [phone] Rossi BLACK MD, Zane Morataya Unavailable [phone] Raudel Childers MD Unavailable [phone] Chris Hart MD Unavailable Charlee Mcmillan Unavailable Unavailable Mariama Parisi RN Unavailable [phone] Agustina Li MD PhD Unavailable [phone] Encounter Details Date Type Department Care Team (Late st Contact Info) Description 10/20/2024 Telephone [facility] Cardiology [address] [facility] Advanced Medicine 8th [place] [address] [place] [address] Chantell Alexis Social History Tobacco [...] materials from doctor or pharmacy Sometimes 10/24/2024 [facility] Utilities Answer Date Recorded In the past 12 months has th e [employer], gas, oil, or water company threatened to [...] often do you attend chur ch or congregational services? More than 4 times per year 10/19/2024 Do you belong to any clubs o r organizations such as yazidi groups, unions, fraternal or athletic groups, or [...] Date Recorded PHQ-2 Total Score 0 10/19/2024 [facility] of Occupat ional Health - Occupational [...] any time in the past 12 m [facility], were you homeless or living in a group home (including now)? No 10/19/2024 Personal Safety Answer Date Recorded Have you ever been in or are you currently in a harmful physical or emotional relationship or is someone making you feel afraid or unsafe? 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 SUPERINTENDENT NONSELLING Gender Identity Male 12/06/2019 4:39 PM CDT [...] CALLER'S NAME: Dr. Edgardo Castro CALLER'S PAGER: [phone] PATIENT'S NAME: Romain Bazan : 1950 CAMPUS: [facility] PATIENT'S LOCATION: [address] [place] [address] REASON FOR CONSULT: MARK ATTENDING PHYSICIAN: Dr. [...] documented as of this encounter Care Teams Packer Insulation Relationship Specialty Start Date End Date Gilberto Martinez MD [address] [facility] [address] [place] [address] PCP - General 07/11/16 Zane Richey III, MD [address] [facility] [address] [place] [address] Consulting Physician Cardiology 05/18/21 Raudel Childers MD [id number] [place] [address] Consulting Physician Colon and Rectal Surgery 12/26/21 Chris Hart MD [address] [facility] [address] [place] [address] Ssis Etl Developer Cardiology 03/17/24 Charlee Mcmillan RMA Surgical Prehabilitation and Readiness (SPAR) Coordinator 06/11/24 Mariama Parisi, RN [address] [facility] [address] [place] [address] Cashiers Supervisor 08/07/24 5 Agustina Li MD PhD [address] [place] [address] Medical Oncologist/Sales Representative Printing Paper Medical Oncology 09/09/24 documented as of this encounter
--- OUTSIDE RECORDS SUMMARY | 2024-11-06 00:19 | XMS_ITS | Encounter Summary ---
Author Organization [facility] Healthcare Address [address] [place] [address] Care Team Providers Care Custodial Aide Name Role Phone Gilberto Martinez MD Primary Care Provider [phone] Rossi BLACK MD, Zane Morataya Unavailable [phone] Raudel Childers MD Unavailable [phone] Gorge Contreras MD PhD Unavailable [phone] Chris Hart MD Unavailable Mei Cohen RN Unavailable [phone] Ely Tejada Unavailable Charlee Mcmillan Unavailable Unavailable Mariama Parisi RN Unavailable Agustina Li MD PhD Unavailable [phone] Agustina Li MD PhD Unavailable Encounter Details Date Type Department Care Team (Late st Contact Info) Description 05/29/2024 Documentation [facility] Radiation Oncology [address] [facility] [place] [address] Jamia Juarez, ALMITA Social History Tobacco Use Types Packs/Day Years Used Date Smoking Tobacco: Former Cigarettes 0.3 2 Q uit: 1992 Pipe Cigars Smokeless Tobacco: Never [facility] Utilities Answer Date Recorded In the past 12 months has e [employer], gas, oil, or water company threatened to [...] often do you attend chur ch or pentecostalism services? More than 4 times per year 03/16/2024 Do you belong to any clubs o r organizations such as orthodoxy groups, unions, fraternal or athletic groups, or [...] Date Recorded PHQ-2 Total Score 0 03/16/2024 [facility] of Occupat ional [facility] - Occupational Stress Questionnaire Answer Date [...] in the past [address] [facility], were you homeless or living in a prison (including now)? No 03/16/2024 Personal Safety Answer Date Recorded Have you ever been in or are you currently in a harmful physical or emotional relationship or is someone making you feel afraid or unsafe? 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 Gender Identity Male 12/06/2019 4:39 PM [...] documented as of this encounter Care Teams Custodial Aide Relationship Specialty Start Date End Date Gilberto Martinez MD [address] [place] [address] PCP - General 07/11/16 Zane Richey III, MD [address] [place] [address] Consulting Physician Cardiology 05/18/21 Raudel Childers MD [id number] [place] [address] Consulting Physician Colon and Rectal Surgery 12/26/21 Gorge Contreras MD PhD [address] [place] [address] Medical Oncologist Medical Oncology 11/26/23 09/08/24 Chris Hart MD [address] [facility] [address] [place] [address] Refueling Rampman Cardiology 03/17/24 Mei Cohen, RN [address] [facility] [address] [place] [address] Furnace Hand 04/09/24 5 Ely Tejada PA [id number] [place] [address] Referring Physician Physician Glass Grinder 04/09/24 Charlee Mcmillan RMA Surgical Prehabilitation and Readiness (SPAR) Coordinator 06/11/24 Mariama Parisi, RN [address] [facility] [address] [place] [address] Furnace Hand 08/07/24 5 Agustina Li MD PhD [address] [place] [address] Medical Oncologist/Recreation Facility Attendant Medical Oncology 09/09/24 Agustina Li MD PhD [address] [facility] [address] [place] [address] Medical Oncologist/Recreation Facility Attendant Medical Oncology 10/07/24 10/16/24 documented as of this encounter
--- OUTSIDE RECORDS SUMMARY | 2024-11-06 00:19 | XMS_ITS | Encounter Summary ---
Author Organization [facility] Healthcare Address [address] [place] [address] Care Team Providers Care Repair Weaver Name Role Phone Gilberto Martinez MD Primary Care Provider Rossi BLACK MD, Zane Morataya Unavailable [phone] Raudel Childers MD Unavailable Aarti Robles RN Unavailable Gorge Contreras MD PhD Unavailable [phone] Chris Hart MD Unavailable Mei Cohen RN Unavailable [phone] Ely Tejada Unavailable Charlee Mcmillan Unavailable Unavailable Mariama Parisi RN Unavailable Agustina Li MD PhD Unavailable Agustina Li MD PhD Unavailable Encounter Details Date Type Department Care Team (Late st Contact Info) Description 08/13/2023 Orders Only [facility] EpicCare Link Gilberto Martinez MD [address] [facility] [address] [place] [address] Accelerated hypertension (Primary Dx) Social History Tobacco [...] on file Legal 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 difficile suspected 08/19/2024 08/19/202408/20 3:07 AM [...] documented as of this encounter Care Teams Repair Weaver Relationship Specialty Start Date End Date Gilberto Martinez MD [address] [facility] [address] [place] [address] PCP - General 07/11/16 Zane Richey III, MD [address] [facility] [address] [place] [address] Consulting Physician Cardiology 05/18/21 Raudel Childers MD [phone] [place] [address] Consulting Physician Colon and Rectal Surgery 12/26/21 Aarti Robles RN [address] [facility] [address] [place] [address] SHOP Outpatient Cloth Painter 11/18/23 12/16/23 Gorge Contreras MD PhD [address] [place] [address] Medical Oncologist Medical Oncology 11/26/23 09/08/24 Chris Hart MD [address] [facility] [address] [place] [address] Slabbing Machine Operator Cardiology 03/17/24 Mei Cohen, RN [address] [facility] [address] [place] [address] Custodial Manager 04/09/24 5 Ely Tejada PA [address] [facility] 8108-09-07 [place] [address] Referring Physician Physician Lard Renderer 04/09/24 Charlee Mcmillan RMA Surgical Prehabilitation and Readiness (SPAR) Coordinator 06/11/24 Mariama Parisi, RN [address] [facility] [address] [place] [address] Custodial Manager 08/07/24 5 Agustina Li MD PhD [address] [place] [address] Medical Oncologist/Certified Orthotist Medical Oncology 09/09/24 Agustina Li MD PhD [address] [facility] [address] [place] [address] Medical Oncologist/Certified Orthotist Medical Oncology 10/07/24 10/16/24 documented as of this encounter
--- OUTSIDE RECORDS SUMMARY | 2024-11-06 00:19 | XMS_ITS | Encounter Summary ---
Author Organization [facility] Healthcare Address [address] [place] [address] Care Team Providers Care Narcotics And/Or Vice Detective Name Role Phone Gilberto Martinez MD Primary Care Provider [phone] Rossi BLACK MD, Zane Morataya Unavailable [phone] Raudel Childers MD Unavailable [phone] Chris Hart MD Unavailable [phone] Ely Teajda Unavailable Charlee Mcmillan Unavailable Unavailable Mariama Parisi RN Unavailable [phone] Agustina Li MD PhD Unavailable Agustina Li MD PhD Unavailable [phone] Encounter Details Date Type Department Care Team (Late st Contact Info) Description 10/12/2024 Results Follow-Up [facility] Transplant Liver [address] [facility] [phone] [place] [address] Alethea Burch, RN CT Chest Abdomen Pelvis [...] the past 12 months has th e [employer], [employer], oil, or water [employer] threatened to shut off services in your [...] Date Recorded PHQ-2 Total Score 0 03/16/2024 [facility] of Occupat community healthal [facility] - Occupational Stress Questionnaire Answer Date Recorded [...] any time in the past 12 m [facility], were you homeless or living in a snf (including now)? No 08/24/2024 Personal Safety Answer Date Recorded Have you ever been in or are you currently in a harmful physical or emotional relationship or is someone making you feel afraid or unsafe? 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 Gender Identity Male 12/06/2019 4:39 PM CDT [...] documented as of this encounter Care Teams Narcotics And/Or Vice Detective Relationship Specialty Start Date End Date Gilberto Martinez MD [address] [facility] [address] [place] [address] PCP - General 07/11/16 Zane Richey III, MD [address] [facility] [address] [place] [address] Consulting Physician Cardiology 05/18/21 Raudel Childers MD [phone] [place] [address] Consulting Physician Colon and Rectal Surgery 12/26/21 Chris Hart MD [address] [facility] [address] [place] [address] Organ Assembler Cardiology 03/17/24 Ely Tejada PA [address] [place] [address] Referring Physician Physician Oil Speculator 04/09/24 Charlee Mcmillan RMA Surgical Prehabilitation and Readiness (SPAR) Coordinator 06/11/24 Mariama Parisi, RN [address] [facility] [address] [place] [address] Nibbler Operator 08/07/24 5 Agustina Li MD PhD [address] [place] [address] Medical Oncologist/Video Engineer Medical Oncology 09/09/24 Agustina Li MD PhD [address] [facility] [address] [place], [place] [address] Medical Oncologist/Video Engineer Medical Oncology 10/07/24 10/16/24 documented as of this encounter
--- OUTSIDE RECORDS SUMMARY | 2024-11-06 00:19 | XMS_ITS | Encounter Summary ---
Author Organization [facility] Healthcare Address [address] [place] [address] Care Team Providers Care Community Assistant Name Role Phone Gilberto Martinez MD Primary Care Provider Rossi BLACK MD, Zane Morataya Unavailable [phone] Raudel Childers MD Unavailable [phone] Chris Hart MD Unavailable Charlee Mcmillan Unavailable Unavailable Agustina Li MD PhD Unavailable [phone] Reason for Visit * Auth/Cert (Routine) Specialty Diagnoses / Procedures Referred By Herminia t Referred To Contact Referral ID Status Reason Start Date Expiration Date Visits Re quested Visits Authorized [id number] 1 60 Encounter Details Date Type Department Care Team (Late st Contact Info) Description 11/05/2024 Home Care Visit [address] [place] [address] Hannah Roque, DIXIE CASE COMMUNICATION Social History [...] materials from doctor or pharmacy Never 11/05/[address] [facility] Utilities Answer Date Recorded In the past 12 months has e [employer], gas, oil, or water [employer] threatened to shut off services in your [...] any clubs o r organizations such as jew groups, unions, fraternal or athletic groups, or [...] 0 10/19/2024 [facility] of Occupat ional [facility] - Occupational Stress Questionnaire Answer [...] any time in the past 12 m [facility], were you homeless or living in a senior living (including now)? No 10/19/2024 Personal Safety Answer Date Recorded Have you ever been in or are you currently in a harmful physical or emotional relationship or is someone making you feel afraid or unsafe? 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) documented as of this encounter Visit Diagnoses Not on filedocumented in this encounter Care Teams Community Assistant Relationship Specialty Start Date End Date Gilberto Martinez MD [address] [facility] [address] [place] [address] PCP - General 07/11/16 Zane Richey III, MD [address] [facility] [address] [place] [address] Consulting Physician Cardiology 05/18/21 Raudel Childers MD [address] [facility] [phone] [place] [address] Consulting Physician Colon and Rectal Surgery 12/26/21 Chris Hart MD [address] [facility] [address] [place] [address] Criminal Lawyer Cardiology 03/17/24 Charlee Mcmillan RMA Surgical Prehabilitation and Readiness (SPAR) Coordinator 06/11/24 Agustina Li MD PhD [address] [place] [address] Medical Oncologist/Independent Beauty Consultant Medical Oncology 09/09/24 documented as of this encounter
--- OUTSIDE RECORDS SUMMARY | 2024-11-06 00:19 | XMS_ITS | Clinical Summary ---
Author Organization [employer] [address] Address [address] [place] [address] Care Team Providers Care Electrical Design Technician Name Role Phone Unavailable Primary Care [...] (2 - Tdap) 02/09/2029 02/10/20 19 Insurance [employer] [facility] MCR
--- OUTSIDE RECORDS SUMMARY | 2024-11-06 00:19 | XMS_ITS | Encounter Summary ---
Author Organization [facility] Address [address] [place] [address] Phone Care Team Providers Care Business Information Consultant Name Role Phone Gilberto Mratinez MD Primary Care Provider [phone] Rossi BLACK MD, Zane Morataya Unavailable [phone] Raudel Childers MD Unavailable [phone] Gorge Contreras MD PhD Unavailable [phone] Chris Hart MD Unavailable Mei Cohen RN Unavailable [phone] Ely Tejada Unavailable Charlee Mcmillan Unavailable Unavailable Mariama Parisi RN Unavailable [phone] Agustina Li MD PhD Unavailable Agustina Li MD PhD Unavailable Reason for Visit * Reason Onset Date Comments MARK 04/09/2024 Encounter Details Date Type Department Care Team (Late st Contact Info) Description 04/09/[address] [facility] Cardiology [address] [facility] Floor 1, [address] [place] [address] Chris Hart MD [address] [address] MARK Social History Tobacco Use Types Packs/Day Years Used Date Smoking Tobacco: Former Cigarettes 0.3 2 Q uit: 1992 Pipe Cigars Smokeless Tobacco: Never [facility] Utilities Answer Date Recorded [...] How often do you attend chur or jehovah's witness services? More than 4 times per year [...] Date Recorded PHQ-2 Total Score 0 03/16/2024 [facility] - Occupational [...] in a senior living (including now)? No 03/16/2024 Personal Safety Answer Date Recorded Have you ever been in or are you currently in a harmful physical or emotional relationship or is someone making you feel afraid or unsafe? Denies 03/24/2024 Sex and Gender Information Value Date Recorded Sex Assigned at Not on file Legal Sex Male 6:21 AM PRIZER HAND Gender Identity Male 12/06/2019 4:39 PM CDT Sexual Orientation Straight 12/06/2019 4: 39 PM CDT documented as of this encounter Miscellaneous Notes * Telephone Encounter - Seema Mora RN - 04/09/2024 11:52 AM CST ----- Message from Aisha Delcid NP sent at 04/08/2024 5:24 PM PRIZER HAND ----- Could one of you please assist with scheduling this MARK for him? This would be to evaluate the mitral valve. He is having laparoscopic exploratory surgery next so would probably be looking for about a month from now, thank you ----- Message ----- From: Chris Hart MD Sent: 04/07/2024 11:23 AM PRIZER HAND To: Aisha Delcid NP It's okay to set up. We had been holding off given his cancer burden and need for treatment and unclear candidacy for valve repair. While the patient seemed to be on board with that at my last appointment with him at [place], I'm not sure he is in that same mindset now based on his messages since then. If he wants a work-up, definitely fine to proceed with the work-up and we can always hold off beforesurgery depending on where he is at from a cancer standpoint. ----- Message ----- From: Aisha Delcid NP Sent: 04/05/2024 5:22 PM PRIZER HAND To: Chris Hart MD Your last note said MARK would be next step for SOB eval. Has mod-severe MRCourtney Ok to set this up? I told pt I would discuss with you, thanks ER HAND documented in this encounter Plan of Treatment [...] documented as of this encounter Care Teams Business Information Consultant Relationship Specialty Start Date End Date Gilberto Martinez MD [address] [facility] [address] [place] [address] PCP - General 07/11/16 Zane Richey III, MD [address] [facility] [address] [place] [address] Consulting Physician Cardiology 05/18/21 Raudel Childers MD [id number] [place] [address] Consulting Physician Colon and Rectal Surgery 12/26/21 Gorge Contreras MD PhD [address] [place] [address] Medical Oncologist Medical Oncology 11/26/23 09/08/24 Chris Hart MD [address] [facility] [address] [place] [address] Technical Service Engineer Cardiology 03/17/24 Mei Cohen, RN [address] [facility] [address] [place] [address] Color Checker Roving Or Yarn 04/09/24 5 Ely Tejada PA [id number] [place] [address] Referring Physician Physician Flooring Installer 04/09/24 Charlee Mcmillan RMA Surgical Prehabilitation and Readiness (SPAR) Coordinator 06/11/24 Mariama Parisi, RN [address] [facility] [address] [place] [address] Color Checker Roving Or Yarn 08/07/24 5 Agustina iL MD PhD [address] [place] [address] Medical Oncologist/Citrix Architect Medical Oncology 09/09/24 Agustina Li MD PhD [address] [facility] [address] [place] [address] Medical Oncologist/Citrix Architect Medical Oncology 10/07/24 10/16/24 documented as of this encounter
--- OUTSIDE RECORDS SUMMARY | 2024-11-06 00:19 | XMS_ITS | Encounter Summary ---
Author Organization [facility] Address [address] [place] [address] Care Team Providers Care Charge Attendant Name Role Phone Gilberto Martinez MD Primary Care Provider [phone] Rossi BLACK MD, Zaen Morataya Unavailable [phone] Raudel Childers MD Unavailable Chris Hart MD Unavailable Ely Tejada Unavailable Charlee Mcmillan Unavailable Unavailable Mariama Parisi RN Unavailable Agustina Li MD PhD Unavailable Agustina Li MD PhD Unavailable Encounter Details Date Type Department Care Team (Latest Contact Info) Description 10/07/2024 Results Follow-Up [facility] Trans[facility] Liver [address] [facility] [address] [id number] [place] [address] Alethea Burch, ALMITA Cancer antigen 19-9, Comprehensive [...] materials from doctor or pharmacy Sometimes 09/08/2024 [facility] Utilities Answer Date Recorded In the past 12 months has th e [employer], [employer], oil, or water [employer] threatened to shut off services in your [...] How often do you attend chur or tenriism services? More than 4 times per year 08/24/2024 Do you belong to any clubs o r organizations such as hindu groups, unions, fraternal or athletic groups, or [...] Date Recorded PHQ-2 Total Score 0 03/16/2024 [facility] - Occupational Stress Questionnaire Answer Date [...] any time in the past 12 m [facility], were you homeless or living in a residential (including now)? No 08/24/2024 Personal Safety Answer Date Recorded Have you ever been in or are you currently in a harmful physical or emotional relationship or is someone making you feel afraid or unsafe? 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 Gender Identity Male 12/06/2019 4:39 PM [...] documented as of this encounter Care Teams Charge Attendant Relationship Specialty Start Date End Date Gilberto Martinez MD [address] [facility] [address] [place] [address] PCP - General 07/11/16 Zane Richey III, MD [address] [facility] [address] [place] [address] Consulting Physician Cardiology 05/18/21 Raudel Childers MD [phone] [place] [address] Consulting Physician Colon and Rectal Surgery 12/26/21 Chris Hart MD [address] [facility] [address] [place] [address] Certified Nutritionist Cardiology 03/17/24 Ely Tejada PA [id number] [place] [address] Referring Physician Physician Cage Loader 04/09/24 Charlee Mcmillan RMA Surgical Prehabilitation and Readiness (SPAR) Coordinator 06/11/24 Mariama Parisi, RN [address] [facility] [address] [place] [address] Cylinder Tester 08/07/24 5 Agustina Li MD PhD [address] [place] [address] Medical Oncologist/Director Marketing Analytics Medical Oncology 09/09/24 Agustina Li MD PhD [address] [facility] [address] [place] [address] Medical Oncologist/Director Marketing Analytics Medical Oncology 10/07/24 10/16/24 documented as of this encounter
--- OUTSIDE RECORDS SUMMARY | 2024-11-06 00:19 | XMS_ITS | Clinical Summary ---
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 Pulse 68 06/11/2022 10:40 AM BIN TRIPPER OPERATOR Temperature - - Respiratory Rate - - Oxygen Saturation - - Inhaled Oxygen Concentration - - Weight 83.5 kg (184 lb) 06/11/2022 10:40 AM BIN TRIPPER OPERATOR Height 180.3 cm (5' 11) 06/11/2022 10:40 AM BIN TRIPPER OPERATOR Body Mass Index 25.66 06/11/2022 10:40 AM BIN TRIPPER OPERATOR Plan of Treatment Health Maintenance Due Date Last Done Comments Pneumococcal PPSV23/PCV13 65 + Years / Low and Medium Risk (2 of 3 - PCV20 or PCV21) 03/07/2021 03/07/2020 COVID-19 Vaccine (2023-2 5 season) 2024 11/20/2021, 03/20/2021, 07/17/2020, Additional history exists Influenza Vaccine (Season Ended) 2025 02/26/2022, 02/17/2021, 02/06/2016, Additional history exists Insurance HUMAN Care Teams Drywall Taper Helper Relationship Specialty Start Date End Date Gilberto Martinez MD [address] [facility] [address] [place] [address] PCP - General Internal Medicine 06/11/19
--- OUTSIDE RECORDS SUMMARY | 2024-11-06 00:20 | XMS_ITS | Encounter Summary ---
Author Organization [facility] Address [address] [place] [address] Phone Care Team Providers Care Railroad Car Repairman Name Role Phone Gilberto Martinez MD Primary Care Provider Rossi BLACK MD, Zane Morataya Unavailable [phone] Raudel Childers MD Unavailable [phone] Chris Hart MD Unavailable Charlee Mcmillan Unavailable Unavailable Agustina Li MD PhD Unavailable [phone] Encounter Details Date Type Department Care Team (Late st Contact Info) Description 11/05/2024 Telephone [facility] Oncology [address] [facility] Floor 1, [address] [place] [address] Renetta Colunga, CABINET ABRASIVE SANDBLASTER [address] [id number] Social History Tobacco Use Types Packs/Day Years [...] materials from doctor or pharmacy Never 11/05/2024 [facility] Utilities Answer Date Recorded In the past 12 months has th e [employer], gas, oil, or water company threatened to [...] How often do you attend chur or temple services? More than 4 times per year 10/19/2024 Do you belong to any clubs o r organizations such as adventism groups, unions, fraternal or athletic groups, or [...] Date Recorded PHQ-2 Total Score 0 10/19/2024 [facility] Occupat ional Health - Occupational Stress [...] any time in the past 12 m [facility], were you homeless or living in a mcfp (including now)? No 10/19/2024 Personal Safety Answer Date Recorded Have you ever been in or are you currently in a harmful physical or emotional relationship or is someone making you feel afraid or unsafe? 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 Primary oncologist team updated via [employer]. 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) documented as of this encounter Visit Diagnoses Not on filedocumented in this encounter Care Teams Railroad Car Repairman Relationship Specialty Start Date End Date Gilberto Martinez MD [address] [facility] [address] [place] [address] PCP - General 07/11/16 Zane Richey III, MD [address] [place] [address] Consulting Physician Cardiology 05/18/21 Raudel Childers MD [address] [facility] [phone] [place] [address] Consulting Physician Colon and Rectal Surgery 12/26/21 Chris Hart MD [address] [facility] [address] [place] [address] Hat Blocking Operator Cardiology 03/17/24 Charlee Mcmillan RMA Surgical Prehabilitation and Readiness (SPAR) Coordinator 06/11/24 Agustina Li MD PhD [address] [place] [address] Medical Oncologist/Route Returner Medical Oncology 09/09/24 documented as of this encounter
--- OUTSIDE RECORDS SUMMARY | 2024-11-06 00:21 | XMS_ITS | Clinical Summary ---
Author Organization [facility] Address [address] [place] [address] Care Team Providers Care Beater Tender Name Role Phone Gilberto Martinez MD Primary Care Provider [phone] Rossi BLACK MD, Curtis Merle Unavailable [phone] Raudel Childers MD Unavailable Chris Hart MD Unavailable Charlee Mcmillan Unavailable Unavailable Agustina Li MD PhD Unavailable [phone] Allergies Active Allergy Reactions Criticality Noted Date Comments Cephalexin Dizziness Low 05/04/2021 Zosyn was given in 2021 & cefepime was given in 2023 Iodinated Contrast Media Hives Medium 10/13/2008 Medications citalopram (CeleXA) 20 mg tabletIndications:An xiety with Depression Take 1 tablet (20 mg total) by mouth every morning 018 Active multivitamin tabletIndications:Vi tamin Deficiency Prevention Take 1 tablet by mouth intelligence officer before breakfast Active simvastatin (ZOCOR) 10 mg [...] 08/17 Active al & mag hydroxide simethicone-diphenhy yvvtcze-wfqhuuqvi-tp statin (MAGIC MOUTHWASH) suspensionIndication s:oral thrush Swish [...] times a day with meals RX # [id number] [facility] in home Active warfarin (COUMADIN) 1 [...] be able to pay for it at id); keep only loperamide as prn. Assessment & [...] 9 y - s/p Vit K in [facility]. S/p vitamin K 2.5 mg oral once [...] 9 y - s/p Vit K in [facility]. S/p vitamin K 2.5 mg oral once 08/22, s/p Vit K 10 IV 08/23 - INR 1.63 08/24-- Resumed warfarin home dose 2 mg daily (08/24-p) - Daily INR Assessment & Plan (09/05/2024 11:31 AM CDT): - Secondary to nausea/vomiting/diarhea while on warfarin. INR > 9 y - s/p Vit K in [facility]. S/p vitamin K 2.5 mg oral once 08/22, s/p Vit K 10 IV 08/23 - INR 1.63 08/24-- Resumed warfarin home dose 2 mg daily (08/24-p) - Daily INR Assessment & Plan (09/04/2024 11:35 AM CDT): - Secondary to nausea/vomiting/diarhea while on warfarin. INR > 9 y - s/p Vit K in [facility]. S/p vitamin K 2.5 mg oral once 08/22, s/p Vit K 10 IV 08/23 - INR 1.63 08/24-- Resumed warfarin home dose 2 mg daily (08/24-p) - Daily INR Assessment & Plan (09/03/2024 2:39 PM CDT): - Secondary to nausea/vomiting/diarhea while on warfarin. INR > 9 y - s/p Vit K in [facility]. S/p vitamin K 2.5 mg oral once 08/22, s/p Vit K 10 IV 08/23 - INR 1.63 08/24-- Resumed warfarin home dose 2 mg daily (08/24-p) - Daily INR Assessment & Plan (09/02/2024 10:30 AM CDT): - Secondary to nausea/vomiting/diarhea while on warfarin. INR > 9 y - s/p Vit K in [facility]. S/p vitamin K 2.5 mg oral once 08/22, s/p Vit K 10 IV 08/23 - INR 1.63 08/24-- Resumed warfarin home dose 2 mg daily (08/24-p) - Daily INR Assessment & Plan (09/01/2024 4:08 PM CDT): - Secondary to nausea/vomiting/diarhea while on warfarin. INR > 9 y - s/p Vit K in [facility]. S/p vitamin K 2.5 mg oral once 08/22, s/p Vit K 10 IV 08/23 - INR 1.63 08/24-- Resumed warfarin home dose 2 mg daily (08/24-p) - Daily INR Assessment & Plan (08/31/2024 11:42 AM CDT): - Secondary to nausea/vomiting/diarhea while on warfarin INR > 9 y - s/p Vit K in [facility] S/p vitamin K 2.5 mg oral once 08/22, s/p Vit K 10 IV 08/23 INR 1.63 08/24-- Resumed warfarin home dose 2 mg daily (08/24-p) Daily INR See atrial fibrillation Assessment & Plan (08/30/2024 12:11 PM CDT): - Secondary to nausea/vomiting/diarhea while on warfarin INR > 9 y - s/p Vit K in [facility] S/p vitamin K 2.5 mg oral once 08/22, s/p Vit K 10 IV 08/23 INR 1.63 08/24-- Resumed warfarin home dose 2 mg daily (08/24-p) Daily INR Assessment & Plan (08/29/2024 1:59 PM CDT): - Secondary to nausea/vomiting/diarhea while on warfarin INR > 9 y - s/p Vit K in [facility] S/p vitamin K 2.5 mg oral once 08/22, s/p Vit K 10 IV 08/23 INR 1.63 08/24-- Resumed warfarin home dose 2 mg daily (08/24-p) Daily INR Assessment & Plan (08/28/2024 5:10 PM CDT): - Secondary to nausea/vomiting/diarhea while on warfarin INR > 9 y - s/p Vit K in [facility] S/p vitamin K 2.5 mg oral once 08/22, s/p Vit K 10 IV 08/23 INR 1.63 08/24-- Resumed warfarin home dose 2 mg daily (08/24-p) Daily INR Assessment & Plan (08/27/2024 6:05 PM CDT): - Secondary to nausea/vomiting/diarhea while on warfarin INR > 9 y - s/p Vit K in [facility] S/p vitamin K 2.5 mg oral once 08/22, s/p Vit K 10 IV 08/23 INR 1.63 08/24-- Resumed warfarin home dose 2 mg daily (08/24-p) Daily INR Assessment & Plan (08/26/2024 5:10 PM CDT): - Secondary to nausea/vomiting/diarhea while on warfarin INR > 9 y - s/p Vit K in [facility] S/p vitamin K 2.5 mg oral once 08/22, s/p Vit K 10 IV 08/23 INR 1.63 08/24-- Resumed warfarin home dose 2 mg daily (08/24-p) Daily INR Assessment & Plan (08/25/2024 6:44 PM CDT): - Secondary to nausea/vomiting/diarhea while on warfarin INR > 9 y - s/p Vit K in [facility] S/p vitamin K 2.5 mg oral once 08/22, s/p Vit K 10 IV 08/23 INR 1.63 08/24-- Resumed warfarin home dose 2 mg daily (08/24-p) Daily INR Assessment & Plan (08/24/2024 1:31 PM CDT): - Secondary to nausea/vomiting/diarhea while on warfarin INR > 9 y - s/p Vit K in [facility] S/p vitamin K 2.5 mg oral once 08/22, s/p Vit K 10 IV 08/23 INR 1.63 08/24-- Resumed warfarin home dose 2 mg daily (08/24-p) Assessment & Plan (08/23/2024 12:11 PM CDT): - Secondary to nausea/vomiting/diarrhea while on warfarin INR > 9 y - s/p Vit K in [facility] - , continue to hold warfarin, bleeding precautions ordered Ordered vitamin K 2.5 mg oral once 08/22 INR more than 9 today, still having poor oral intake with diarrhea, will give IV vitamin K 10 mg once 08/23 Assessment & Plan (08/22/2024 12:03 PM CDT): - Secondary to nausea/vomiting/diarrhea while on warfarin INR > 9 y - s/p Vit K in [facility] - , continue to hold warfarin, bleeding precautions ordered Ordered vitamin K 2.5 mg oral once 08/22 Oral intake encouraged. Assessment & Plan (08/21/2024 9:15 PM CDT): - INR > 9 with hematuria noted recently - s/p Vit K in [facility] - Trend INR in AM, continue to [...] 025 Assessment & Plan (06/09/2024 8:50 PM MAKE READY WORKER): -Remains compliant sotalol -increase to 80 mg [...] 7 Assessment & Plan (03/16/2024 5:32 PM MAKE READY WORKER): - H/H- 8.01/30 Monitor CBC closely Lactic acidosis 03/15/2024 Assessment & Plan (03/16/2024 5:29 PM MAKE READY WORKER): Lactate 4 in [facility]. Reports normal PO intake. Improved to 2.3 after 1L IVF. Unclear etiology. Lactate lateralized on a.m. labs Hypomagnesemia 03/10/2024 Hypophosphatemia 02/11/2024 Dehydration 02/10/2024 Mood disorder 01/18/2024 Assessment & Plan (01/18/2024 8:13 PM CDT): Continue home citalopram Shortness of breath 01/18/2024 Assessment & Plan (03/16/2024 5:31 PM MAKE READY WORKER): P/w SOB, fatigue, generalized weakness. Similar episodes in the past w/ unremarkable workup. In [facility], Tmax 99.4, satting well on RA, BP [...] negative to date -given cefe x1 in [facility]; hold off on further abx for now [...] awaiting transplant. He was recently adm to [facility] from 08/21 - 09/07/24 w/ N/V/D, [...] ERCP and stent exchange on 10/15 at [facility] Currently he remains on reduced dose capecitabine [...] awaiting transplant. He was recently adm to [facility] from 08/21 - 09/07/24 w/ N/V/D, [...] ERCP and stent exchange on 10/15 at [facility] Currently he remains on reduced dose capecitabine [...] awaiting transplant. He was recently adm to [facility] from 08/21 - 09/07/24 w/ N/V/D, [...] ERCP and stent exchange on 10/15 at [facility] Currently he remains on reduced dose capecitabine [...] awaiting transplant. He was recently adm to [facility] from 08/21 - 09/07/24 w/ N/V/D, [...] ERCP and stent exchange on 10/15 at [facility] Currently he remains on reduced dose capecitabine [...] awaiting transplant. He was recently adm to [facility] from 08/21 - 09/07/24 w/ N/V/D, [...] ERCP and stent exchange on 10/15 at [facility] Currently he remains on reduced dose capecitabine [...] awaiting transplant. He was recently adm to [facility] from 08/21 - 09/07/24 w/ N/V/D, [...] ERCP and stent exchange on 10/15 at [facility] Currently he remains on reduced dose capecitabine (reduced dose), q2 weeks Assessment & Plan (10/17/2024 12:39 PM CDT): Follows Dr. 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 Since then he has underwent 8 cycles of Gemcitabine + cisplatin + nab-paclitaxel and is currently on maintenance capecitabine and is awaiting transplant. He was recently adm to [facility] from 08/21 - 09/07/24 w/ N/V/D, [...] ERCP and stent exchange on 10/15 at [facility] Currently he remains on reduced dose capecitabine (reduced dose), q2 weeks Assessment & Plan (10/16/2024 3:04 PM CDT): follows Dr. 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 Since then he has underwent 8 cycles of Gemcitabine + cisplatin + nab-paclitaxel and is currently on maintenance capecitabine and is awaiting transplant. He was recently adm to [facility] from 08/21 - 09/07/24 w/ N/V/D, [...] ERCP and stent exchange on 10/15 at [facility] Currently he remains on reduced dose capecitabine (reduced dose), q2 weeks Assessment & Plan (10/15/2024 8:47 PM CDT): follows Dr. 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 Since then he has underwent 8 cycles of Gemcitabine + cisplatin + nab-paclitaxel and is currently on maintenance capecitabine and is awaiting transplant. He was recently adm to [facility] from 08/21 - 09/07/24 w/ N/V/D, [...] ERCP and stent exchange on 10/15 at [facility] Currently he remains on reduced dose capecitabine (reduced dose), q2 weeks Assessment & Plan (09/07/2024 8:02 PM CDT): Established care with Dr. Flowers, s/p chemo/radiation, active on transplant list and on maintenance capecitabine - [facility] Onc recs Assessment & Plan (09/06/2024 [...] capecitabine Assessment & Plan (03/16/2024 5:32 PM MAKE READY WORKER): Dx 11/2023 after presenting with jaundice in [...] resectable. Planned for port 12/01 and start [place]+Cis+Abrax after, which will be postponed for 1wk [...] 10/24/2023 Assessment & Plan (03/15/2024 9:54 PM MAKE READY WORKER): -cont betahistine 24mg tid (home supply) Assessment [...] 02/26/2023 Assessment & Plan (06/09/2024 8:48 PM MAKE READY WORKER): -Status post dual-chamber pacemaker placement -Device interrogation [...] until clarity on cultures and waiting for AMRK Assessment & Plan (10/21/2024 10:46 AM CDT): [...] above Assessment & Plan (06/09/2024 8:49 PM MAKE READY WORKER): -Status post radiofrequency catheter ablation with Dr. Richey -Remains compliant on apixaban and sotalol -Noted to have a sustained episode recently causing symptoms -Increase sotalol to 80 mg b.i.d. -Obtain an EKG after 3 doses to evaluate QT interval -Follow up in 6 months for 12 lead EKG, device interrogation, and clinic visit Assessment & Plan (03/15/2024 10:22 PM MAKE READY WORKER): S/p PVI, CTI ablation 09/09/23. Follows w/ [...] AM CDT): Asymptomatic, device-detected AF. Low burden. [id number] = 2. --Continue apixaban 5 mg BID Lightheadedness 03/12/2022 Small bowel obstruction 12/23/2021 Sinus bradycardia 05/29/2021 Sick sinus syndrome 05/19/2021 Overview (05/19/2021): Added automatically from request for surgery [id number] Assessment & Plan (03/15/2024 9:53 PM MAKE READY WORKER): -s/p PPM Assessment & Plan (01/21/2024 1:23 [...] CPAP Assessment & Plan (03/16/2024 5:27 PM MAKE READY WORKER): Continue CPAP qhs Assessment & Plan (01/21/2024 [...] needed Assessment & Plan (03/16/2024 5:27 PM MAKE READY WORKER): Continue Amlodipine, Lisinopril, HCTZ Assessment & Plan [...] statin Assessment & Plan (03/16/2024 5:25 PM MAKE READY WORKER): Continue statin Assessment & Plan (01/18/2024 7:01 [...] Plan (10/23/2024 7:49 AM CDT): Culture form [facility] positive for gram negative bacilli [...] Plan (10/22/2024 10:33 AM CDT): Culture form [facility] positive for gram negative bacilli [...] Plan (10/21/2024 10:46 AM CDT): Culture form [facility] positive for gram negative bacilli (verbal report per patient). Prior culture in 2023 positive for klebsiella (R: ampicillin) Given fever of 100.9 on 10/13, positive blood culture- for E.coli(resistant to multiple ABX), recent ERCP - will opt to treat as cholangitis., negative UA. Start Zosyn ,--meropenem EOT 10/22 F/u b/c on 10/15-ngtd Assessment & Plan (10/20/2024 10:21 AM CDT): Culture form [facility] positive for gram negative bacilli (verbal report per patient). Prior culture in 2023 positive for klebsiella (R: ampicillin) Given fever of 100.9 on 10/13, positive blood culture- for E.coli(resistant to multiple ABX), recent ERCP - will opt to treat as cholangitis., negative UA. Start Zosyn ,--meropenem EOT 10/22 F/u b/c on 10/15-ngtd Assessment & Plan (10/19/2024 1:30 PM CDT): Culture form [facility] positive for gram negative bacilli (verbal report per patient). Prior culture in 2023 positive for klebsiella (R: ampicillin) Given fever of 100.9 on 10/13, positive blood culture- for E.coli(resistant to multiple ABX), recent ERCP - will opt to treat as cholangitis., negative UA. Start Zosyn , anticipate to switch to oral once records form [facility] is found. F/u b/c on 10/15-ngtd ID consult for ESBL E.coli and ABX recs. Assessment & Plan (10/18/2024 11:27 AM CDT): Culture form [facility] positive for gram negative bacilli (verbal report per patient). Prior culture in 2023 positive for klebsiella (R: ampicillin) Given fever of 100.9 on 10/13, positive blood culture- for E.coli(susceptibilities pending), recent ERCP - will opt to treat as cholangitis., negative UA. Start Zosyn , anticipate to switch to oral once records form [facility] is found. Requested records 10/16 F/u b/c on 10/15-ngtd Assessment & Plan (10/17/2024 12:39 PM CDT): Culture form [facility] positive for gram negative bacilli (verbal report per patient). Prior culture in 2023 positive for klebsiella (R: ampicillin) Given fever of 100.9 on 10/13, positive blood culture- for E.coli, recent ERCP - will opt to treat as cholangitis., negative UA. Start Zosyn , anticipate to switch to oral once records [facility] is found. Requested records 10/16 F/u b/c on 10/15-ngtd Assessment & Plan (10/16/2024 3:04 PM CDT): Culture form [facility] positive for gram negative bacilli (verbal report per patient). Prior culture in 2023 positive for klebsiella (R: ampicillin) Given fever of 100.9 on 10/13, positive blood culture, recent ERCP - will opt to treathim as cholangitis., negative UA. Start Zosyn , anticipate to switch to oral once records form [facility] is found. Requested records 10/16 F/u b/c on 10/15 Assessment & Plan (10/15/2024 8:47 PM CDT): Culture form [facility] positive for gram negative bacilli (verbal report per patient). Prior culture in 2023 positive for klebsiella (R: ampicillin) Given fever of 100.9 on 10/13, positive blood culture, recent ERCP - will opt to treathim as cholangitis., negative UA. Start Zosyn , anticipate to switch to oral once records [facility] is found. F/u b/c on 10/15 [...] 5 12:00 PM CDT Home Care Visit [facility] - [address] [place] [address] Hannah Roque, OT OT OASIS DISCHARGE 5 Telephone [facility] Oncology [address] [facility] Floor 1, [address] [place] [address] Renetta Colunga, MICAH 5 Home Care Visit [address] [place] [address] Hannah Roque, OT CASE COMMUNICATION 5 Telephone [facility] Oncology [address] [facility] Floor 5 [place] [phone] Marion Aden, RN 5 Telephone [facility] and [facility] Transplant Liver [address] [facility] [address] Mailstop [phone] [place] [address] Jennifer Gamboa 5 Surgical Prehabilitation and Readiness Subsequent Outreach [facility] Department of Surgery [address] [place] [phone] Serge August CMA 5 Telephone [facility] Transplant Liver [address] [facility] [address] Mailstop [phone] [place] [address] Alethea Burch RN 5 Telephone [facility] Oncology [address] [facility] [address] [place] [phone] Yohana Santana CMA appointment update 5 10:45 AM CDT Home Care Visit [address] [place] [address] Angeline Horowitz COTA OT HOME VISIT 5 Telephone [facility] Oncology [facility] [facility] Floor 5 [place] [phone] Marion Aden, ALMITA 5 Telephone [facility] Oncology [address] [place] [address] Floor 5 [place] [phone] Marion Aden, RN 5 Anticoagulation Telephone Call [facility] Cardiology [facility] Medical Office Building [address] [place] [phone] Chris Hart MD 5 7:36 PM CDT - 5 11:59 PM CDT Hospital Encounter [facility] Radiology [facility] [address] [place] [address] Discharge Disposition: Discharge to home or self care 5 7:26 PM CDT - 5 9:24 PM CDT Hospital Encounter [facility]) [address] [place] [id number] Fever, unspecified fever cause (Primary Dx) 5 Telephone [facility] Bone Marrow Transplant [address] [facility] Floor 6 [place] [phone] Willis Godoy RN 5 Anticoagulation Telephone Call [facility] Cardiology [facility] Medical Office Building [address] [place] [phone] Chris Hart MD 5 Telephone [facility] Transplant Liver [address] [place] [address] [address] Mailop [phone] [place] [address] Mariama Feldman RN 5 12:45 PM CDT Home Care Visit [address] [address] [address] [place] [address] Angeline Horowitz COTA OT HOME VISIT 5 9:00 AM CDT Home Care Visit [address] [address] [address] [place] [address] Bryn Molina, PT PT REASSESSMENT 5 Surgical Prehabilitation and Readiness Subsequent Outreach [facility] Department of Surgery [address] [place] [phone] Serge August CMA 5 Orders Only [facility] Oncology [address] [facility] Floor 5 [place] [phone] Agustina Li MD PhD 5 1:45 PM CDT Office Visit [facility] Oncology [address] [facility] [address] [place] [phone] Agustina Li MD PhD Hilar cholangiocarcinoma (HCC) (Primary Dx) 5 12:45 PM CDT Clinical Support [facility] [address] [place] [phone] Hilar cholangiocarcinoma (HCC); 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) 5 Orders Only [facility] Oncology [facility] Floor 5 [place] [phone] Marion Aden, ALMITA 5 Telephone [facility] and [facility] Transplant Liver [address] [facility] [address] Mailstop [phone] [place] [address] Mariama Feldman RN 5 Anticoagulation Telephone Call [facility] Cardiology [address] [place] [address] Office Building [address] [place] [phone] Chris Hart MD 5 10:30 AM CDT Home Care Visit [address] [place] [address] Hannah Roque, OT OT REASSESSMENT 5 Home Care Visit [address] [place] [address] Hannah Roque, OT CASE COMMUNICATION 5 Telephone [facility] Oncology [address] [place] [address] Floor 5 [place] [phone] Marion Aden RN 5 Telephone [facility] Oncology [address] [place] [address] Floor 5 [place] [phone] Marion Aden RN 5 Anticoagulation Telephone Call [facility] Cardiology [address] [place] [address] Medical Office Building [address] [place] [phone] Chris Hart MD 5 Documentation [facility] Oncology [address] [place] [address] Floor 5 [place] [phone] Heidi Diaz, RMA Fever 5 1:00 PM CDT Home Care Visit [address] [address] [address] [place] [address] Mei Trujillo, RN SN OASIS RESUMPTION OF CARE 5 Plan of Care Documentation [address] [address] [address] [place] [address] 5 Telephone [facility] Oncology [address] [facility] [address] [place] [address] Marion Aden RN 5 Orders Only [facility] Oncology [address] [facility] Floor 5 [place] [address] Agustina Li MD PhD Hilar cholangiocarcinoma (HCC) (Primary Dx) 5 Telephone [facility] Cardiology [address] [place] [address] Advanced Medicine 8th [place] [address] [place] [phone] Alea Canada RN 5 1:57 PM CDT Anesthesia Event [facility] [address] [place] [phone] Pascale Portillo MD 5 Surgical Prehabilitation and Readiness Subsequent Outreach [facility] Department of Surgery [address] [place], [place] [phone] Serge August CMA 5 Telephone [facility] Cardiology [address] [facility] Advanced Medicine 8th [place] [address] [place] [address] Chantell Alexis 5 Home Care Visit [address] [place] [address] Ewa Lubin, PT PT OASIS TRANSFER W/OUT DC 5 4:11 PM CDT - 5 2:00 PM CDT Hospital Encounter [address] [phone] Agustina Li MD PhD Kait Askew MD Baral, MD Tomer Guerrero Safia, MD Tabagari, David, MD Positive blood culture (Primary Dx); Fever, unspecified fever cause; Illness, unspecified; Sepsis with gram negative bacteremia; Hilar cholangiocarcinoma (HCC) Discharge Disposition: Discharge to home, home health skilled care 5 12:53 PM CDT Anesthesia Event [facility] [address] [place] [phone] Vipin Daniel DO Winfrey, Tonya M., CRNA 5 11:00 AM CDT - 5 11:30 AM CDT Surgery [facility] [address] [place] [phone] Chris Holcomb MD ENDOSCOPIC RETROGRADE CHOLANGIOPANCREATOGRAPHY REMOVE/CHANGE STENT [GI524] 5 8:47 AM CDT - 5 2:50 PM CDT Hospital Encounter [facility] [address] [place] [phone] Chris Holcomb MD History of biliary stent insertion Discharge Disposition: Discharge to home or self care 5 6:41 AM CDT - 5 11:59 PM CDT Hospital Encounter [facility] [address] [place] [phone] Upper abdominal pain Discharge Disposition: Discharge to home or self care 5 Telephone [facility] Oncology [address] [facility] Floor 5 [place] [phone] Agustina Li MD PhD 5 Anticoagulation Telephone Call [facility] Cardiology [address] [facility] Medical Office Building [address] [place] [phone] Chris Hart MD 5 Surgical Prehabilitation and Readiness Subsequent Outreach [facility] Department of Surgery [address] [place] [address] Serge August CMA 5 12:15 PM CDT Home Care Visit [facility] [address] [place] [address] 157 [address] [place] [address] Angeline Horowitz COTA OT HOME VISIT 5 10:00 AM CDT Office Visit [facility] Gasteroenterolo gy [address] [facility] Advanced Medicine 12th [place] [address] [place] [address] Katie Reeder MD Perihilar cholangiocarcinoma (HCC) (Primary Dx) 5 2:00 PM CDT Home Care Visit [address] [place] [address] Bryn Molina, PT PT HOME VISIT 5 10:00 AM CDT Office Visit [facility] Cardiology [address] [facility] Medical Office Building 3 [address] [place] [address] Aisha Delcid NP Cardiac pacemaker in situ (Primary Dx); Moderate aortic regurgitation; High risk medication use; Paroxysmal atrial fibrillation (HCC); Nonrheumatic mitral valve regurgitation; Essential (primary) hypertension; Prolonged INR; Heart disease, unspecified; Sick sinus syndrome (HCC) 5 Telephone [facility] Oncology [address] [facility] Floor 8 [place] [phone] Bebe Sage RN 5 9:38 AM CDT - 5 11:59 PM CDT Hospital Encounter [facility] [address] [place] [address] 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) Discharge Disposition: Discharge to home or self care 5 Results Follow-Up [facility] and [facility] Transplant Liver [address] [facility] [address] Mailstop [phone] [place] [address] Chest Abdomen Pelvis W Contrast 5 10:30 AM CDT Home Care Visit [address] [place] [address] Angeline Horowitz COTA OT HOME VISIT 5 Orders Only [facility] Oncology [address] [facility] Floor 5 [place] [address] Agustina Li MD PhD Benign prostatic hyperplasia, unspecified whether lower urinary tract symptoms present (Primary Dx); Hilar cholangiocarcinoma (HCC) 5 10:00 AM CDT Home Care Visit [address] [place] [address] Bryn Molina, PT PT HOME VISIT 5 Telephone [facility] Transplant Liver [address] [place] [address] 3401 Mailstop [phone] [place] [address] Alethea Burch RN 5 Telephone [facility] Transplant Liver [address] [place] [address] 3401 Mailstop [phone] [place] [address] Alethea Burch, ALMITA 5 Orders Only [facility] Oncology [address] [facility] Floor 5 [place] [address] Agustina Li MD PhD 5 Telephone [facility] Transplant Liver [address] [place] [address] 3401 Mailstop [phone] [place] [address] Alethea Burch, RN 5 10:00 AM CDT Office Visit [facility] Oncology 10 [facility] [address] [place] [phone] Agustina Li MD PhD Hilar cholangiocarcinoma (HCC) (Primary Dx) 5 9:00 AM CDT Clinical Support [facility] [address] [facility] [place] [phone] Hilar cholangiocarcinoma (HCC) 5 Results Follow-Up [facility] Transplant Liver [address] [facility] [address] Mailstop [phone] [place] [address] Alethea Burch, ALMITA Cancer antigen 19-9, Comprehensive metabolic panel, CBC with auto differential, Additional followed-up results: 9 5 Telephone [facility] Transplant Liver [address] [facility] [address] Mailstop [phone] [place] [address] Alethea Burch RN 5 Anticoagulation Telephone Call [facility] Cardiology [address] [facility] Medical Office Building 3 [address] [place] [address] Chris Hart MD Paroxysmal atrial fibrillation (HCC) (Primary Dx) 5 12:15 PM CDT Home Care Visit [address] [place] [address] Angeline Horowitz COTA OT HOME VISIT 5 10:30 AM CDT Home Care Visit [address] [place] [address] Bryn Molina, PT PT HOME VISIT 5 10:00 AM CDT Home Care Visit [address] [place] [address] Bryn Molina, PT PT REASSESSMENT 5 Orders Only [facility] Cancer [address] [address] Charlee Tovar [facility] 5 Telephone [facility] Oncology [address] [facility] Floor 5 [place] [address] Marion Aden RN 5 12:00 PM CDT Home Care Visit [address] [place] [address] Hannah Roque, OT OT REASSESSMENT 5 Surgical Prehabilitation and Readiness Subsequent Outreach [facility] Department of Surgery [address] [place] [address] Serge August CMA 5 Orders Only [facility] Transplant Liver [address] [facility] [address] Mailstop [phone] [place] [address] Mariama Parisi, RN 5 Documentation [facility] Transplant Liver [address] [facility] [address] Mailstop [phone] [place] [address] Analisa, Nimisha 5 Telephone [facility] Transplant Liver [address] [place] [address] 3401 Mailstop [phone] [place] [address] Analisa, Nimisha 5 Telephone [facility] Transplant Liver [address] [place] [address] 340 Mailstop 02-07-270 [place] [address] Mariama Parisi, RN 5 Anticoagulation Telephone Call [facility] Cardiology [address] [facility] Medical Office Building 3 [address] [place] [address] Chris Hart MD Longstanding persistent atrial fibrillation (HCC) (Primary Dx) 5 12:00 PM CDT Home Care Visit [address] [place] [address] Angeline Horowitz COTA OT HOME VISIT 5 10:15 AM CDT Home Care Visit [address] [place] [address] Bryn Molina, PT PT HOME VISIT 5 Orders Only [facility] Oncology [address] [facility] Floor 5 [place] [address] Agustina Li MD PhD Hilar cholangiocarcinoma (HCC) (Primary Dx) 5 Telephone [facility] Transplant Liver [address] [facility] [address] Mailstop 90-29-908 [place] [address] Mariama Parisi, ALMITA 5 1:15 PM CDT Home Care Visit [address] [place] [address] Angeline Horowitz COTA OT HOME VISIT 5 Documentation [facility] Oncology [address] [facility] Floor 5 [place] [address] Marion Aden, ALMITA 5 12:00 PM CDT Home Care Visit [place] [address] [address] [place] [address] Radha Grullon, PT PT REASSESSMENT 5 Telephone [facility] Oncology [address] [facility] Floor 5 [place] [address] Marion Aden, ALMITA 5 Surgical Prehabilitation and Readiness Subsequent Outreach [facility] Department of Surgery [address] [place] [phone] Serge August CMA 5 Anticoagulation Telephone Call [facility] Cardiology [address] [facility] Medical Office Building 3 [address] [place] [address] Chris Hart MD Longstanding persistent atrial fibrillation (HCC) (Primary Dx) 5 1:45 PM CDT Home Care Visit [place] [address] [address] [place] [address] Angeline Horowitz COTA OT HOME VISIT 5 Telephone [facility] Cardiology [address] [facility] 8th [place] [address] [place] [address] Chris Hart MD 5 11:15 AM CDT Home Care Visit [address] [place] [address] Radha Grullon, PT PT HOME VISIT 5 2:30 PM CDT Home Care Visit [address] [place] [address] Bryn Molina, PT PT HOME VISIT 5 Documentation [facility] Transplant Liver 45[address] [facility] 3401 Mailstop [phone] [place] [address] Nimisha Hauser 5 1:45 PM CDT Home Care Visit [address] [place] [address] Angeline Horowitz COTA OT HOME VISIT 5 Telephone [facility] Transplant Liver [address] [facility] 3401 Mailstop [phone] [place] [address] Mariama Parisi, RN 5 Telephone [facility] Transplant Liver [address] [facility] 3401 Mailstop [phone] [place] [address] Mariama Parisi, RN 5 Results Follow-Up [facility] Transplant Liver [address] [facility] 3401 Mailstop [phone] [place] [address] Mariama Parisi, RN Cancer antigen 19-9, Comprehensive metabolic panel, CBC with auto differential, Additional followed-up results: 3 5 9:15 AM CDT Clinical Support [facility] [place] at [address] [place] [phone] 5 8:45 AM CDT Office Visit [facility] Oncology [address] [place] [address] [address] [place] [phone] Agustina Li MD PhD Hilar cholangiocarcinoma (HCC) (Primary Dx) 5 7:45 AM CDT Clinical Support [address] [place] [phone] Hilar cholangiocarcinoma (HCC); Paroxysmal atrial fibrillation (HCC); High risk medication use; Prolonged INR 5 Anticoagulation Telephone Call [facility] Cardiology [address] [facility] Office Building 3 [address] [place] [address] Chris Hart MD 5 12:45 PM CDT Home Care Visit [place] [address] [address] [place] [address] Angeline Horowitz COTA OT HOME VISIT 5 Anticoagulation Telephone Call [facility] [address] [facility] Office Building 3 [address] [place] [phone] Chris Hart MD 5 2:00 PM CDT Home Care Visit [address] [place] [address] Bryn Molina, PT PT HOME VISIT 5 Telephone [facility] Transplant Liver [address] [facility] 3401 Mailstop [phone] [place] [address] Genvoeva Hobson 5 Documentation [facility] Transplant Liver [address] [facility] [address] Mailstop [phone] [place] [address] Mariama Parisi RN 5 Orders Only [facility] Scanning, Provider 5 Documentation [facility] Oncology [address] [facility] Floor 5 [place] [address] Marion Aden RN 5 Anticoagulation Telephone Call [facility] Cardiology [address] [facility] Medical Office Building 3 [address] [place] [address] Chris Hart MD Paroxysmal atrial fibrillation (HCC) (Primary Dx) 5 Telephone [facility] Cardiology [address] [facility] 8th [place] [address] [place] [address] Chris Hart MD 5 1:00 PM CDT Home Care Visit [place] [address] [address] [place] [address] Hannah Roque, OT OT INITIAL EVALUATION 5 Home Care Visit [address] [place] [address] Hannah Roque, OT CASE COMMUNICATION 5 Home Care Visit [place] [address] [address] [place] [address] Samia Carias, RN NURSE MED RECON FOR THERAPY 5 Telephone [facility] Oncology [address] [place] [address] 100 [place] [phone] Smith Cruz 5 Orders Only [facility] Oncology [address] [place] [address] Floor 5 [place] [address] Agustina Li MD PhD Hilar cholangiocarcinoma (HCC) (Primary Dx) 5 Documentation [facility] Oncology [address] [place] [address] Floor 5 [place] [phone] Marion Aden RN 5 Surgical Prehabilitation and Readiness Subsequent Outreach [facility] Department of Surgery [address] [place] [phone] Serge August CMA 5 9:00 AM CDT Infusion [address] [place] [phone] Dehydration (Primary Dx); Hilar cholangiocarcinoma (HCC); Hypomagnesemia 5 8:30 AM CDT Office Visit [facility] Oncology [address] [place] [address] [address] [place] [phone] Leela Guillermo NP Hilar cholangiocarcinoma (HCC) (Primary Dx); Dehydration 5 7:45 AM CDT Clinical Support [address] [place] [address] 5 7:30 AM CDT Clinical Support [facility] at [address] [place] [address] Hilar cholangiocarcinoma (HCC); Paroxysmal atrial fibrillation (HCC); High risk medication use; Prolonged INR 5 Home Care Visit [address] [place] [address] Samia Carias, ALMITA NURSE MED RECON FOR THERAPY 5 Documentation [facility] Oncology [address] [place] [address] Floor 5 [place] [address] Heidi Diaz RMA Prior Auth 5 Orders Only [facility] Oncology [address] [place] [address] Floor 5 [place] [address] Agustina Li MD PhD 5 Orders Only [facility] Oncology [address] [place] [address] Floor 5 [place] [address] Agustina Li MD PhD 5 Documentation [facility] at [address] [place] [address] 5 Documentation [facility] Oncology [address] [place] [address] Floor 5 [place] [address] Heidi Diaz RMA Prior Auth 5 Anticoagulation Telephone Call [facility] Cardiology [address] [facility] Medical Office Building 3 [address] [place] [address] Chris Hart MD 5 1:00 PM CDT Home Care Visit [address] [place] [address] Radha Grullon, PT PT OASIS START OF CARE 5 Plan of Care Documentation [address] [place] [address] 5 Telephone [facility] Transplant Liver [address] [facility] [address] Mailstop [phone] [place] [address] Genoveva Hobson 5 Telephone [facility] Transplant Liver [address] [facility] [address] Mailstop [phone] [place] [address] Genoveva Hobson 5 Telephone [facility] Transplant Liver [address] [facility] [address] Mailstop [phone] [place] [address] Mariama Parisi RN 5 Telephone [facility] Oncology [facility] Floor 5 [place] [phone] Landy Hooker RN 5 Anticoagulation Telephone Call [facility] Cardiology [address] [facility] Floor 1, [address] [place] [phone] Seema Mora RN 5 Travel 5 2:20 PM CDT Ancillary Procedure [facility] Vascular Lab IP 1 [facility] [address] [place] [address] 5 Surgical Prehabilitation and Readiness Subsequent Outreach [facility] Department of Surgery [address] [place] [phone] Serge August CMA 5 7:55 AM CDT Ancillary Procedure [facility] Vascular Lab IP 1 [facility] [address] [place] [address] [address] [place] [address] Yee Marin, ALMITA 5 Orders Only [facility] Oncology [facility] Floor 5 [place] [address] Landy Hooker, ALMITA Hilar cholangiocarcinoma (HCC) (Primary Dx) 5 11:35 AM CDT Anesthesia Event [facility] Center 1 [place] [address] Arlene Phillips MD 5 10:56 AM CDT - 5 11:26 AM CDT Surgery [facility] 1 [place] [address] Abram Smith MD SIGMOID BIOPSY 5 Documentation [facility] Transplant Liver [address] [facility] [address] Mailstop [phone] [place] [address] Mariama Parisi RN 5 Surgical Prehabilitation and Readiness Subsequent Outreach [facility] Department of Surgery [address] [place] [address] Serge August CMA 5 Telephone [facility] Cardiology [address] [facility] Floor 1, [address] [place] [address] Chris Hart MD 5 Orders Only [facility] Oncology [address] [facility] Floor 5 [place] [address] Landy Hooker, ALMITA Hilar cholangiocarcinoma (HCC) (Primary Dx) 5 6:12 PM CDT - 5 4:07 PM CDT Hospital Encounter [address] [address] Gorge Contreras MD PhD Everardo Diaz MD Patel, Rushin Mahesh, MD Farooqui, MD Sweta Felipe Geneva Enriquez, MD Menon, Priya, MD Hoyt, Smith Hinton MD Diarrhea, unspecified type (Primary Dx); FTT (failure to thrive) in adult; Acute hypoxemic respiratory failure (HCC); Hypoxia Discharge Disposition: Discharge to home or self care 5 3:53 PM CDT - 5 11:59 PM CDT Hospital Encounter [facility]) [address] [place] [address] Discharge Disposition: Discharge to home or self care 5 2:54 PM CDT - 5 11:59 PM CDT Hospital Encounter [facility] ([facility]) [address] [place] [address] Other specified hypotension (Primary Dx); Nausea; Elevated INR Discharge Disposition: Discharge to home or self care 5 Results Follow-Up [facility] Cardiology [address] [facility] [address] [place] [address] Seema Mora, ALMITA Protime-INR, aPTT 5 Telephone [facility] Oncology [address] [place] [address] Floor 5 [place] [phone] Landy Hooker, ALMITA 5 Telephone [facility] Gastroenterolog y [address] [place] [address] Medical Office Building 4, [address] [place] [address] Erin Dillard RN GI Preprocedure 5 Telephone [facility] at [address] [phone] Kait Marroquin, ASHLEY 5 7:24 PM CDT - 5 3:09 AM CDT Hospital Encounter [facility] [place] [facility] ([facility]) [address] [place] [address] Nausea and vomiting, unspecified vomiting type (Primary Dx); Hilar cholangiocarcinoma (HCC) Discharge Disposition: Discharge to home or self care 5 Telephone [facility] at [address] [phone] Kait Marroquin, ASHLEY 5 Telephone [facility] Oncology [facility] Floor 5 [place] [address] Landy Hooker, ALMITA 5 Orders Only [facility] Oncology [address] [facility] Floor 5 [place] [address] Landy Hooker RN Hand foot syndrome (Primary Dx); Hilar cholangiocarcinoma (HCC) 5 Anticoagulation Telephone Call [facility] Cardiology [address] [facility] Medical Office Building 3 [address] [place] [address] Chris Hart MD Paroxysmal atrial fibrillation (HCC) (Primary Dx) 5 1:15 PM CDT Ancillary Procedure [facility] [address] [facility] [address] [place] [phone] Cardiac pacemaker in situ (Primary Dx); Sick sinus syndrome (HCC) 5 Telephone [facility] Center [address] [place] [address] [address] [phone] Zane Richey III, MD 5 9:30 AM CDT Office Visit [facility] Gasteroenterolo gy [address] [facility] 12th [place] [address] [place] [address] Jamin Posey MD Cholangiocarcinoma (HCC) (Primary Dx); Hilar cholangiocarcinoma (HCC) 5 11:30 AM CDT Telemedicine [facility] [address] [place] [address] [place] [address] Gorge Garza MD PhD Cholangiocarcinoma (HCC) (Primary Dx) 5 12:32 PM CDT Anesthesia Event [facility] Digestive Disease [place] [address] [facility] [address] [place] [address] Arpan Guzman MD 5 11:30 AM CDT - 5 12:00 PM CDT Surgery [facility] Dig[facility]ive Disease [address] [place] [address] Chris Holcomb MD ENDO ENDOSCOPIC RETROGRADE CHOLANGIOPANCREATOGRAPHY REMOVE/CHANGE STENT [GI513] 5 10:17 AM CDT - 5 2:27 PM CDT Hospital Encounter [facility] Center [address] [facility] [address] [place] [phone] Chris Holcomb MD History of biliary stent insertion; Hilar cholangiocarcinoma (HCC) Discharge Disposition: Discharge to home or self care from Last 3 Months Immunizations Immunization Administration Dates Next Due COVID-19 mRNA ([employer]) 0.3 m L (30 mcg) vaccine (12 [...] Bivalent Vaccine 10 mcg/0.2 mL (6 MOS-5 YRS)-[place]/Yellow 02/26/2022 Pfizer SARS-CoV-2 Monovalent Vaccination (12+ Yrs) PURPLE 11/20/2021,03/20/2021,07/17/2020,06/26 Pneumococcal Conjugate PCV 13 03/07/2020 Pneumococcal Conjugate Pcv20 10/10/2022 RSV Vaccine, Pref, Recombina nt, Subunit, Adjuvanted, PF, IM (Arexvy) 04/26/2023 Tetanus Toxoid, Unspecified 09/11/2007 [facility] 02/26/2022, 5,02/17/2013,05/06 Surgical History Surgery Date Site/Laterality Comments [place] CHOLECYSTECTOMY 1989 KNEE SURGERY Right 1965 bone [...] Sister 1 Vivian Sleep apnea Sister 2 [place] Anesthesia problems Neg Hx Relation Name Status Comments Father Sulma Mother Elidia Sister 1 Vivian Sister 2 [place] Alive Social History Tobacco Use Types Packs/Day [...] materials from doctor or pharmacy Never 11/05/2024 [facility] Utilities Answer Date Recorded In the past 12 months has th e [employer], gas, oil, or water [employer] threatened to shut off services in your [...] week 10/19/2024 How often do you attend [facility] or yazidi services? More than 4 times per year [...] Date Recorded PHQ-2 Total Score 0 10/19/2024 [facility] - Occupational [...] living in a residential (including now)? No 10/19/2024 Personal Safety Answer Date Recorded Have you ever been in or are you currently in a harmful physical or emotional relationship or is someone making you feel afraid or unsafe? 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 Gender Identity Male 12/06/2019 4:39 PM [...] history exists Medical Devices Implanted Type Area Design Manager Device Identifier Shelf Expiration Date Model / Serial / Lot [employer] Vascade Mvp 6-12fr Venous Closure [id number] - [id number] - [id number] Implanted:Qty : 1 on 09/09/2023 by Zane Richey III, MD at [facility] [employer] 06/20/2025 800-612C- 10U / [id number] / [id number] [employer] Vascade Mvp 6-12fr Venous Closure [id number] - [id number] - [id number] Implanted:Qty : 1 on 09/09/2023 by Zane Richey III, MD at [facility] [employer] 06/20/2025 800-612C- 10U / [id number] 26A / [id number] [id number] [employer] Vascade Mvp 6-12fr Venous Closure [id number] - [id number] - [id number] Implanted:Qty : 1 on 09/09/2023 by Zane Richey III, MD at [facility] [employer] 06/20/2025 800-612C- 10U / [id number] 26A / [id number] [id number] [employer] 2088tc/[address] 6fr 58cm Is-1 Connector Active Fixation Bipolar Soft - [id number] - [id number] Implanted:Qty : 1 on 06/30/2021 by Zane Richey III, MD at [facility] Lead [employer] [id number] 03/05/2024 2088TC/58 / [id number] / [employer] 2088tc/52 Tendril Sts 6fr 52cm Is-1 Connector Active Fixation Bipolar Soft - [id number] - [id number] Implanted:Qty : 1 on 06/30/2021 by Zane Richey III, MD at [facility] Lead [employer] [id number] 03/05/20248TC/52 / [id number] / [employer] [id number] Assurity Mri 74o12oc 2 Chamber Is-1 Connector Thk6mm Pacemaker - [id number] - [id number] Implanted:Qty : 1 on 06/30/2021 by Zane Richey III, MD at [facility] Pacemaker Left: Chest [employer] [id number] 11/02/2022 [id number] / [id number] / [employer] Advanix 7fr 10cm Rapid Exchange Temporary Taper Tip Thin Wall 2 [id number] - [id number] Implanted:Qty : 1 on 10/15/2024 by Chris Holcomb MD at [facility] Stent N/A: Bile Duct [employer] 06/10/2026 [id number] / / [id number] [employer] Advanix 7fr 10cm Rapid Exchange Temporary Taper Tip Thin Wall 2 [id number] - [id number] Implanted:Qty : 1 on 10/15/2024 by Chris Holcomb MD at [facility] Stent N/A: Bile Duct [employer] 05/26/2026 [id number] / / [id number] [employer] Excela Low Porfile Power Port 8fr 1.6mm 1 Lumen [id number] - [id number] Implanted:Qty : 1 on 12/09/2023 at [facility] [employer] 09/18/2028 [id number] / / [id number] Explanted Type Area Design Manager Device Identifier Shelf Expiration Date Model / Serial / Lot [employer] Farrell Flexi-Stent 5fr 7cm Small Pigtail Flexible .035in Stent 6554 - [id number] Implanted:Qty: 1 on 11/15/2023 by Chris Holcomb MD at [facility] Explanted:Qty: 1 on 01/13/2024 at [facility] Stent Pancreas [employer] 06/06/2028 [id number] / / [id number] Description:Not present upon start of procedure [employer] Cook Zimmon 7fr 10cm Biliary Double Pigtail Stent [id number] - [id number] Implanted:Qty: 1 on 11/15/2023 by Chris Holcomb MD at [facility] Explanted:Qty: 1 on 01/13/2024 by Sherry Alberts DO at [facility] Stent Bile Duct [employer] 07/08/2026 [id number] / / [id number] [employer] Advanix 7fr 10cm Rapid Exchange Temporary Taper Tip Thin Wall 2 [id number] - [id number] Implanted:Qty: 1 on 01/13/2024 by Chris Holcomb MD at [facility] Explanted:Qty: 1 on 03/18/2024 by Chris Holcomb MD at [facility] Stent N/A: Bile Duct [employer]ame [id number] 10/20/2025 [id number] / / [id number] [employer] Advanix 7fr 10cm Rapid Exchange Temporary Taper Tip Thin Wall 2 [id number] - [id number] Implanted:Qty: 1 on 01/13/2024 by Sherry Alberts DO at [facility] Explanted:Qty: 1 on 03/18/2024 by Chris Holcomb MD at [facility] Stent N/A: Bile Duct [employer]ame [id number] 11/18/2025 [id number] / / [id number] [employer] Advanix 7fr 10cm Rapid Exchange Temporary Taper Tip Thin Wall 2 [id number] - [id number] Implanted:Qty: 1 on 03/18/2024 by Chris Holcomb MD at [facility] Explanted:Qty: 1 on 08/07/2024 by Sherry Alberts DO at [facility] Stent N/A: Bile Duct [employer] 01/12/2026 [id number] / / [id number] [employer] Advanix 7fr 12cm Rapid Exchange Temporary Taper Tip Thin Wall 2 [id number] - [id number] Implanted:Qty: 1 on 03/18/2024 by Chris Holcomb MD at [facility] Explanted:Qty: 1 on 08/07/2024 by Sherry Alberts DO at [facility] Stent N/A: Bile Duct [employer] 01/06/2026 [id number] / / [id number] Description:Not present on t his exam [employer] Advanix 7fr 10cm Rapid Exchange Temporary Taper Tip Thin Wall 2 [id number] - [id number] Implanted:Qty: 1 on 05/18/2024 by Chris Holcomb MD at [facility] Explanted:Qty: 1 on 08/07/2024 by Sherry Alberts DO at [facility] Stent N/A: Bile Duct [employer] 03/17/2026 [id number] / / [id number] [employer] Advanix 7fr 10cm Rapid Exchange Temporary Taper Tip Thin Wall 2 [id number] - [id number] Implanted:Qty: 1 on 05/18/2024 by Chris Holcomb MD at [facility] Explanted:Qty: 1 on 08/07/2024 at [facility] Stent N/A: Bile Duct [employer] 03/18/2026 [id number] / / [id number] Description:Not present on t his exam [employer] Advanix 7fr 10cm Rapid Exchange Temporary Taper Tip Thin Wall 2 [id number] - [id number] Implanted:Qty: 1 on 08/07/2024 by Sherry Alberts DO at [facility] Explanted:Qty: 1 on 10/15/2024 by Chris Holcomb MD at [facility] Stent N/A: Bile Duct [employer] 05/26/2026 [id number] / / [id number] [employer] Advanix 7fr 10cm Rapid Exchange Temporary Taper Tip Thin Wall 2 [id number] - [id number] Implanted:Qty: 1 on 08/07/2024 by Sherry Alberts DO at [facility] Explanted:Qty: 1 on 10/15/2024 by Chris Holcomb MD at [facility] Stent N/A: Bile Duct [employer] 05/26/2026 [id number] / / [id number] [employer] Zimmon Od7 Fr L15 Cm Tapered Tip 2 Pigtail Curve Stent Biliary Polyethylene Sterile Disposable Purple [id number] - [id number] Implanted:Qty: 1 on 11/15/2023 by Chris Holcomb MD at [facility] Explanted:Qty: 1 on 01/13/2024 by Sherry Alberts DO at [facility] Bile Duct [employer] 07/03/2026 [id number] / / [id number] Procedures Procedure Name Priority Date/Time Associated Diagnosis [...] CDT HEMOGLOBIN A1C Routine 06/22/2024 2:10 PM MAKE READY WORKER Moderate aortic regurgitation Nonrheumatic mitral valve regurgitation Abnormal finding of blood chemistry, unspecified HEPATITIS C ANTIBODY Routine 06/08/2024 7:28 AM MAKE READY WORKER Hilar cholangiocarcinoma (HCC) LIPID PANEL Routine 06/08/2024 7:28 AM MAKE READY WORKER Hilar cholangiocarcinoma (HCC) from Last 3 Months or Most Recently Relevant to Health Maintenance Results * Urinalysis reflex to microscopic and culture Urine, clean voided (11/01/2024 8:13 PM CDT) Color, ur Yellow Yellow Clarity, ur Clear Clear [facility] Specific gravity, ur 1.025 1.003 - 1.030 [facility] pH, urine 6.0 [facility] Comment: Interpretive Data U rine pH is affected by diet, medications, systemic acid-base disturbances, and renal tubular function. pH may affect urinary stone formation. For example, urine pH below 6.0 may help reduce the tendency for calcium phosphate stones and pH greater than 6.0 may reduce the tendency for uric acid stone formation. Source: [facility] Current Interpretive Data was last revised on 2017 Protein, ur ql Negative Negative [facility] Glucose, ur ql Negative Negative [facility] Ketones, ur Negative Negative [facility] Bilirubin, ur Negative Negative [facility] Blood, ur Negative Negative [facility] Urobilinogen, ur <2.0 <2.0 mg/dL [facility] Nitrite, ur Negative Negative [facility] Leukocyte esterase, ur Negative Negative [facility] UA reflex comment Reflex conditions for microscopic UA and culture not met. [facility] Urine, clean voided 11/01/2024 8:13 PM CDT 11/01/2024 8:17 PM CDT us Leela Sandhu MECHANICAL DESIGNER LAB MICROBIOLOGY - GENERA L ORDERABLES Final Result [facility] Department [place] [address] * X-ray chest 1 view (11/01/2024 8:06 [...] by: Jacobo Grace M.D. us Leela Sandhu MECHANICAL DESIGNER IMG XR PROCEDURES Final R esult * POC Blood Gas and Chemistries, Arterial - (11/01/2024 7:56 PM CDT) Lactate POC 1.1 0.7 - 2.0 mmol/L Blood 11/01/2024 7:56 PM CDT 11/01/2024 7:56 PM CDT us Agustina Li MD PhD LAB POCT ORDERABLES - DEVIC E Final Result [facility] Department [place] [address] * eGFR (11/01/2024 7:51 PM CDT) eGFR [...] 11/01/2024 8:04 PM CDT us Leela Sandhu MECHANICAL DESIGNER LAB BLOOD ORDERABLES Lila l Result [facility] Department [place] [address] * (ABNORMAL) Differential, auto (11/01/2024 7:51 PM CDT) Neutrophil abs 5.25 1.50 - 6.50 K/cumm Imm gran abs 0.08 0.00 - 0.10 K/cumm [facility] Lymphocyte abs 0.44(L) 0.80 - 3.30 K/cumm [facility] Monocyte abs 1.00(H) 0.20 - 0.80 K/cumm [facility] Eosinophil abs 0.03 0.00 - 0.50 K/cumm [facility] Basophil abs 0.02 0.00 - 0.10 K/cumm [facility] Neutrophil pct 76.9 % [facility] Comment: Interpretive Data Percent cell count reference ranges are not reported, since discordance with absolute values may lead to misinterpretation of CBC data. Current Interpretive Data was last revised on 2017. Imm gran pct 1.2 % [facility] Comment: Interpretive Data Percent cell count reference ranges are not reported, since discordance with absolute values may lead to misinterpretation of CBC data. Current Interpretive Data was last revised on 2017. Lymphocyte pct 6.5 % [facility] Comment: Interpretive Data Percent cell count reference ranges are not reported, since discordance with absolute values may lead to misinterpretation of CBC data. Current Interpretive Data was last revised on 2017. Monocyte pct 14.7 % [facility] Comment: Interpretive Data Percent cell count reference ranges are not reported, since discordance with absolute values may lead to misinterpretation of CBC data. Current Interpretive Data was last revised on 2017. Eosinophil pct 0.4 % [facility] Comment: Interpretive Data Percent cell count reference ranges are not reported, since discordance with absolute values may lead to misinterpretation of CBC data. Current Interpretive Data was last revised on 2017. Basophil pct 0.3 % [facility] Comment: Interpretive Data Percent cell count reference ranges are not reported, since discordance with absolute values may lead to misinterpretation of CBC data. Current Interpretive Data was last revised on 2017. Blood 11/01/2024 7:51 PM CDT 11/01/2024 8:04 PM CDT us Leela Sandhu MECHANICAL DESIGNER LAB BLOOD ORDERABLES Lila dawson Result Performing Organization Address [facility] Co de Phone Number [facility] [place] [address] * (ABNORMAL) CBC with auto differential (11/01/2024 7:51 PM CDT) WBC 6.82 3.80 - 9.90 K/cumm Hgb 10.8(L) 13.0 - 17.5 g/dL [facility] Hct 33.1(L) 38.9 - 50.3 % [facility] Plt 225 150 - 400 K/cumm [facility] MPV 10.8 9.1 - 12.3 fL [facility] RBC 3.39(L) 4.30 - 5.80 M/cumm [facility] MCV 97.6(H) 81.3 - 96.4 fL [facility] MCH 31.9 27.1 - 33.3 pg [facility] MCHC 32.6 32.3 - 35.7 g/dL [facility] RDW CV 17.9(H) 11.1 - 14.9 % [facility] RDW SD 64.5(H) 35.7 - 48.1 fL [facility] NRBC abs 0.00 0.00 - 0.01 K/cumm [facility] Blood 11/01/2024 7:51 PM CDT 11/01/2024 8:04 PM CDT us Leela Sandhu MECHANICAL DESIGNER LAB BLOOD ORDERABLES Lila l Result Performing Organization Address [facility]/ZIP Co de Phone Number [facility] [place] [address] * (ABNORMAL) Protime-INR (11/01/2024 7:51 PM CDT) PT 22.3(H) 9.7 - 13.0 sec INR 2.04(H) 0.90 - 1.20 [facility] Comment: Interpretive data Oral anticoagulant therapeutic ranges: Venous thromboembolism prophylaxis or treatment: 2.0-3.0 CARDIOLOGY Standard range: 2.0-3.0 High-intensity range: 2.5-3.5 Refer to indication-specific guidelines for appropriate target ranges for prosthetic heart valve replacement. Current interpretive data was last revised on 2019. Blood 11/01/2024 7:51 PM CDT 11/01/2024 8:06 PM CDT us Leela Sandhu MECHANICAL DESIGNER LAB BLOOD ORDERABLES Lila dawson Result [facility] Department [place] [address] * (ABNORMAL) Comprehensive metabolic panel (11/01/2024 7:51 PM CDT) Sodium 134(L) 135 - 145 mmol/L Potassium, pl 4.2 3.3 - 4.9 mmol/L [facility] Chloride 100 97 - 110 mmol/L [facility] CO2 24 22 - 32 mmol/L [facility] Anion gap 10 2 - 15 mmol/L [facility] BUN 38(H) 6 - 25 mg/dL [facility] Creatinine 0.80 0.80 - 1.30 mg/dL [facility] Glucose 111 70 - 199 mg/dL [facility] Comment: Interpretive Data Fasting glucose >/= 126 [...] 2022. Calcium 9.3 8.5 - 10.3 mg/dL [facility] Bilirubin, total 0.6 0.1 - 1.2 mg/dL [facility] Protein, pl 7.2 6.5 - 8.5 g/dL [facility] Albumin 3.7 3.5 - 5.0 g/dL [facility] Alk phos 559(H) 40 - 130 Units/L [facility] ALT 118(H) 7 - 55 Units/L [facility] AST 95(H) 10 - 50 Units/L [facility] Blood 11/01/2024 7:51 PM CDT 11/01/2024 8:04 PM CDT us Leela Sandhu MECHANICAL DESIGNER LAB BLOOD ORDERABLES Llia dawson Result Performing Organization Address City/State/[facility] Co de Phone Number [facility] Department [place] [address] * Respiratory pathogen panel Nasopharyngeal (11/01/2024 7:44 PM CDT) Pathologist [facility] Influenza A RNA Not Detected Not Detected Influenza B RNA Not Detected Not Detected [facility] RSV RNA Not Detected Not Detected [facility] COVID-19 RNA Not Detected Not Detected [facility] Coronavirus 229E RNA Not Detected Not Detected [facility] Coronavirus HKU1 RNA Not Detected Not Detected [facility] Coronavirus NL63 RNA Not Detected Not Detected [facility] Coronavirus OC43 RNA Not Detected Not Detected [facility] Adenovirus DNA Not Detected Not Detected [facility] Metapneumovirus RNA Not Detected Not Detected [facility] Rhinovirus/Enterov irus RNA Not Detected Not Detected [facility] Parainfluenza 1 RNA Not Detected Not Detected [facility] Parainfluenza 2 RNA Not Detected Not Detected [facility] Parainfluenza 3 RNA Not Detected Not Detected [facility] Parainfluenza 4 RNA Not Detected Not Detected [facility] B. pertussis DNA Not Detected Not Detected [facility] B. parapertussis DNA Not Detected Not Detected [facility] C. pneumoniae DNA Not Detected Not Detected [facility] M. pneumoniae DNA Not Detected Not Detected [facility] Nasopharyngeal 11/01/2024 7: 44 PM CDT 11/01/2024 7:54 PM CDT [facility]ative [facility] - 11/01/2024 8:51 PM CDT Is the Patient experiencing symptoms consistent with COVID?->Yes Surveillance testing for transplant patient?->No Interpretive Data The [employer] FilmArray Respiratory Panel (RP2.1) assay is a [...] assay has FDA clearance for testing of MECHANICAL DESIGNER swabs. The performance of additional specimen types has been assessed by the performing laboratory. The performance characteristics of this assay have been determined by [facility]. Current interpretive data was last revised on 22. us Leela Silva Sandhu MECHANICAL DESIGNER LAB MICROBIOLOGY - GENERA L ORDERABLES Final Result [facility] Department [place] [address] * (ABNORMAL) Protime-INR (10/30/2024 9:59 AM CDT) INR 1.4(H) [employer] Comment: Reference Range 0.9-1.1 Moderate-intensity Warfarin Therapy 2.0-3.0 Higher-intensity Warfarin Therapy 3.0-4.0 PT 14.8(H) 9.0 - 11.5 sec [facility] [place] Comment: For additional information, please refer to http://education.Leaky/faq/YIA050 (This link is being provided for informational/ educational purposes only.) Blood 10/30/2024 9:59 AM CDT 10/30/2024 9:59 AM CDT Narrative [facility] - 10/30/2024 3:19 PM CDT FASTING:NO FASTING: NO us Chris Hart MD LAB BLOOD ORDERABLES Final Result Performing Organization Address City/[facility] Co de Phone Number [employer] [address] [place] [address] * eGFR (10/28/2024 1:00 PM CDT) eGFR [...] was last reviewed 2021. Testing performed by: [facility], [address] [place] [address] Blood 10/28/2024 1:00 PM CDT 10/28/2024 1:36 PM CDT us Agustina Li MD PhD LAB BLOOD ORDERABLES Final Result [facility] [address] Department [place] [address] * (ABNORMAL) Differential, auto (10/28/2024 1:00 PM CDT) Neutrophil abs 3.39 1.50 - 6.50 K/cumm Comment:Testing performed by : [facility], [facility], [address] [place] [address] Imm gran abs 0.02 0.00 - 0.10 K/cumm [facility] [place] Comment:Testing performed by : [facility], [facility], [address] [place] [address] Lymphocyte abs 0.48(L) 0.80 - 3.30 K/cumm [facility] [place] Comment:Testing performed by : [facility], [address] [place] [address] Monocyte abs 0.67 0.20 - 0.80 K/cumm [facility] [place] Comment:Testing performed by : [facility], [address] [place] [address] Eosinophil abs 0.07 0.00 - 0.50 K/cumm [facility] Comment:Testing performed by : [facility], [facility], [address] [place] [address] Basophil abs 0.01 0.00 - 0.10 K/cumm [facility] Comment:Testing performed by : [facility], [facility], [address] [place] [address] Neutrophil pct 73.2 % [facility] Comment: Interpretive Data Percent cell count reference ranges are not reported, since discordance with absolute values may lead to misinterpretation of CBC data. Current Interpretive Data was last revised on 2017. Testing performed by: [facility], [facility], [address] [place] [address] Imm gran pct 0.4 % [facility] Comment: Interpretive Data Percent cell count reference ranges are not reported, since discordance with absolute values may lead to misinterpretation of CBC data. Current Interpretive Data was last revised on 2017. Testing performed by: [facility], [facility], [address] [place] [address] Lymphocyte pct 10.3 % [facility] Comment: Interpretive Data Percent cell count reference ranges are not reported, since discordance with absolute values may lead to misinterpretation of CBC data. Current Interpretive Data was last revised on 2017. Testing performed by: [facility], [facility], [address] [place] [address] Monocyte pct 14.4 % [facility] Comment: Interpretive Data Percent cell count reference ranges are not reported, since discordance with absolute values may lead to misinterpretation of CBC data. Current Interpretive Data was last revised on 2017. Testing performed by: [facility], [facility], [address] [place] [address] Eosinophil pct 1.5 % [facility] Comment: Interpretive Data Percent cell count reference ranges are not reported, since discordance with absolute values may lead to misinterpretation of CBC data. Current Interpretive Data was last revised on 2017. Testing performed by: [facility], [address] [place] [address] Basophil pct 0.2 % [facility] [place] Comment: Interpretive Data Percent cell count reference ranges are not reported, since discordance with absolute values may lead to misinterpretation of CBC data. Current Interpretive Data was last revised on 2017. Testing performed by: [facility], [address] [place] [address] Blood 10/28/2024 1:00 PM CDT 10/28/2024 1:08 PM CDT us Agustina Li MD PhD LAB BLOOD ORDERABLES Final Result [facility] [address] [facility]. [place] [address] * (ABNORMAL) CBC with auto differential (10/28/2024 1:00 PM CDT) WBC 4.64 3.80 - 9.90 K/cumm Comment:Testing performed by : [facility], [address] [place] [address] Hgb 10.2(L) 13.0 - 17.5 g/dL [facility] [place] Comment:Testing performed by : [facility], [address] [place] [address] Hct 32.1(L) 38.9 - 50.3 % [facility] [place] Comment:Testing performed by : [facility], [address] [place] [address] Plt 186 150 - 400 K/cumm [facility] [place] Comment:Testing performed by : [facility], [address] [place] [address] MPV 10.0 9.1 - 12.3 fL [facility] [place] Comment:Testing performed by : [facility], [address] [place] [address] RBC 3.13(L) 4.30 - 5.80 M/cumm [facility] Comment:Testing performed by : [facility], [facility], [address] [place] [address] MCV 102.6(H) 81.3 - 96.4 fL [facility] Comment:Testing performed by : [place] [address], [address] [place] [address] MCH 32.6 27.1 - 33.3 pg [facility] Comment:Testing performed by : [place] [address], [address] [place] [address] MCHC 31.8(L) 32.3 - 35.7 g/dL [facility] Comment:Testing performed by : [place] [address], [address] [place] [address] RDW CV 18.2(H) 11.1 - 14.9 % [facility] Comment:Testing performed by : [place] [address], [address] [place] [address] RDW SD 66.8(H) 35.7 - 48.1 fL [facility] Comment:Testing performed by : [place] [address], [address] [place] [address] ANC Prelim 3.39 1.50 - 6.50 K/cumm [facility] Comment: Interpretive Data The rapid ANC is a preliminary automated count and may vary from the final ANC (Neut Abs) reported in the WBC differential that follows. Current interpretive data was last revised 2024. Testing performed by: [place] [address], [address] [place] [address] Blood 10/28/2024 1:00 PM CDT 10/28/2024 1:08 PM CDT Agustina Li MD PhD LAB BLOOD ORDERABLES Final Result Performing Organization Address [facility] de Phone Number [facility] [address] [facility]. Department [place] [address] * (ABNORMAL) Cancer antigen 19-9 (10/28/2024 1:00 PM CDT) CA 19-9 ag 590.0(H) 0.0 - 35.0 units/mL Comment: Interpretive Data The Dereck CA 19-9 assay procedure was used. Results from different manufacturers or methods may not be comparable. Serial testing should be performed using the same method. Testing performed by: [facility], [facility], [place]., [address] Blood 10/28/2024 1:00 PM CDT 10/28/2024 2:33 PM CDT Katie Reeder MD LAB BLOOD ORDERABLES Final Resul t Performing Organization Address [facility] de Phone Number [facility] [address] [address] [facility]. Department [place] [address] * (ABNORMAL) Protime-INR (10/28/2024 1:00 PM CDT) PT 15.3(H) 9.7 - 13.0 sec Comment:Testing performed by : [facility], [address] [address] [facility], [place] [address] INR 1.41(H) 0.90 - 1.20 STAN ST[place]LETON Comment: Interpretive data Oral anticoagulant therapeutic ranges: Venous thromboembolism prophylaxis or treatment: 2.0-3.0 CARDIOLOGY Standard range: 2.0-3.0 High-intensity range: 2.5-3.5 Refer to indication-specific guidelines for appropriate target ranges for prosthetic heart valve replacement. Current interpretive data was last revised on 2019. Testing performed by: [facility], [address] [place] [address] Blood 10/28/2024 1:00 PM CDT 10/28/2024 1:36 PM CDT us Agustina Li MD PhD LAB BLOOD ORDERABLES Final Result [facility] [address] [place] [address] * (ABNORMAL) Comprehensive metabolic panel (10/28/2024 1:00 PM CDT) Sodium 136 135 - 145 mmol/L Comment:Testing performed by : [facility], [address], [place] [address] Potassium, pl 4.0 3.3 - 4.9 mmol/L STAN ALVAREZ Comment:Testing performed by : [facility], [address], [place] [address] Chloride 103 97 - 110 mmol/L STAN ALVAREZCH Comment:Testing performed by : [facility], [address], [place] [address] CO2 22 22 - 32 mmol/L CERKERI COREYWCH Comment:Testing performed by : [facility], [address], [place] [address] Anion gap 11 2 - 15 mmol/L STAN COREYW Comment:Testing performed by : [facility], [address], [place] [address] BUN 38(H) 6 - 25 mg/dL STAN COREYWCH Comment:Testing performed by : [facility], [address], [place] [address] Creatinine 0.80 0.80 - 1.30 mg/dL STAN COREYWCH Comment:Testing performed by : [facility], [address], [place] [address] Glucose 126 70 - 199 mg/dL CERKERI [...] was last revised 2022. Testing performed by: [facility], [address], [place] [address] Calcium 8.8 8.5 - 10.3 mg/dL CERNER BJWCH Comment:Testing performed by : [facility], [address], [place] [address] Bilirubin, total 0.4 0.1 - 1.2 mg/dL CERNER BJWCH Comment:Testing performed by : [facility], [address], [place] [address] Protein, pl 7.0 6.5 - 8.5 g/dL CERNER BJWCH Comment:Testing performed by : [facility], [address], [place] [address] Albumin 3.9 3.5 - 5.0 g/dL CERNER BJWCH Comment:Testing performed by : [facility], [address], [place] [address] Alk phos 408(H) 40 - 130 Units/L CERNER BJWCH Comment:Testing performed by : [facility], [address], [place] [address] ALT 64(H) 7 - 55 Units/L CERNER BJWCH Comment:Testing performed by : [facility], [address], [place] [address] AST 53(H) 10 - 50 Units/L CERNER BJWCH Comment:Testing performed by : [facility], [address], [place] [address] Blood 10/28/2024 1:00 PM CDT 10/28/2024 1:36 PM CDT us Agustina Li MD PhD LAB BLOOD ORDERABLES Final Result [facility] [address] Department [place] [address] * (ABNORMAL) Protime-INR (10/26/2024 8:11 AM CDT) INR 1.4(H) [place] [place] Comment: Reference Range 0.9-1.1 Moderate-intensity Warfarin Therapy 2.0-3.0 Higher-intensity Warfarin Therapy 3.0-4.0 PT 14.6(H) 9.0 - 11.5 sec [facility] [place] Comment: For additional information, please refer to http://education.Leaky/faq/VMM997 (This link is being provided for informational/ educational purposes only.) Blood 10/26/2024 8:11 AM CDT 10/26/2024 8:11 AM CDT Chris Hart MD LAB BLOOD ORDERABLES Final Result [facility] [address] [place] [address] * eGFR (10/23/2024 3:26 AM CDT) eGFR [...] MD LAB BLOOD ORDERABLES Final Resul t [facility] Department [place] [address] * (ABNORMAL) Differential, auto (10/23/2024 3:26 AM CDT) Neutrophil abs 4.28 1.50 - 6.50 K/cumm Imm gran abs 0.07 0.00 - 0.10 K/cumm [facility] Lymphocyte abs 0.60(L) 0.80 - 3.30 K/cumm [facility] Monocyte abs 0.79 0.20 - 0.80 K/cumm [facility] Eosinophil abs 0.06 0.00 - 0.50 K/cumm [facility] Basophil abs 0.02 0.00 - 0.10 K/cumm [facility] Neutrophil pct 73.6 % [facility] Comment: Interpretive Data Percent cell count reference ranges are not reported, since discordance with absolute values may lead to misinterpretation of CBC data. Current Interpretive Data was last revised on 2017. Imm gran pct 1.2 % [facility] Comment: Interpretive Data Percent cell count reference ranges are not reported, since discordance with absolute values may lead to misinterpretation of CBC data. Current Interpretive Data was last revised on 2017. Lymphocyte pct 10.3 % [facility] Comment: Interpretive Data Percent cell count reference ranges are not reported, since discordance with absolute values may lead to misinterpretation of CBC data. Current Interpretive Data was last revised on 2017. Monocyte pct 13.6 % [facility] Comment: Interpretive Data Percent cell count reference ranges are not reported, since discordance with absolute values may lead to misinterpretation of CBC data. Current Interpretive Data was last revised on 2017. Eosinophil pct 1.0 % [facility] Comment: Interpretive Data Percent cell count reference ranges are not reported, since discordance with absolute values may lead to misinterpretation of CBC data. Current Interpretive Data was last revised on 2017. Basophil pct 0.3 % [facility] Comment: Interpretive Data Percent cell count reference ranges are not reported, since discordance with absolute values may lead to misinterpretation of CBC data. Current Interpretive Data was last revised on 2017. Blood 10/23/2024 3:26 AM CDT 10/23/2024 3:49 AM CDT Jennifer Jeff MD LAB BLOOD ORDERABLES Final Resul t Performing Organization Address [facility] Co de Phone Number [facility] Department [place] [address] * (ABNORMAL) CBC with auto differential (10/23/2024 3:26 AM CDT) WBC 5.82 3.80 - 9.90 K/cumm Hgb 9.3(L) 13.0 - 17.5 g/dL [facility] Hct 28.8(L) 38.9 - 50.3 % [facility] Plt 155 150 - 400 K/cumm [facility] MPV 10.4 9.1 - 12.3 fL [facility] RBC 2.89(L) 4.30 - 5.80 M/cumm [facility] MCV 99.7(H) 81.3 - 96.4 fL [facility] MCH 32.2 27.1 - 33.3 pg [facility] MCHC 32.3 32.3 - 35.7 g/dL [facility] RDW CV 18.7(H) 11.1 - 14.9 % [facility] RDW SD 65.2(H) 35.7 - 48.1 fL [facility] NRBC abs 0.00 0.00 - 0.01 K/cumm [facility] Blood 10/23/2024 3:26 AM CDT 10/23/2024 3:49 AM CDT Jennifer Jeff MD LAB BLOOD ORDERABLES Final Resul t Performing Organization Address City/[facility]/ZIP Co de Phone Number [facility] Department [place] [address] * (ABNORMAL) Phosphorus (10/23/2024 3:26 AM CDT) Pathologist [facility] Phosphorus, pl 2.1(L) 2.3 - 4.5 mg/dL Blood 10/23/2024 3:26 AM CDT 10/23/2024 3:49 AM CDT Jennifer Jeff MD LAB BLOOD ORDERABLES Final Resul t [facility] [place] [address] * (ABNORMAL) Comprehensive metabolic panel (10/23/2024 3:26 AM CDT) [facility] Sodium 139 135 - 145 mmol/L Potassium, pl 4.4 3.3 - 4.9 mmol/L [facility] Chloride 105 97 - 110 mmol/L [facility] CO2 27 22 - 32 mmol/L [facility] Anion gap 7 2 - 15 mmol/L [facility] BUN 27(H) 6 - 25 mg/dL [facility] Creatinine 0.98 0.80 - 1.30 mg/dL [facility] Glucose 151 70 - 199 mg/dL [facility] Comment: Interpretive Data Fasting glucose >/= 126 [...] 2022. Calcium 8.5 8.5 - 10.3 mg/dL [facility] Bilirubin, total 0.4 0.1 - 1.2 mg/dL [facility] Protein, pl 6.2(L) 6.5 - 8.5 g/dL [facility] Albumin 3.2(L) 3.5 - 5.0 g/dL [facility] Alk phos 417(H) 40 - 130 Units/L CERNER [facility] ALT 62(H) 7 - 55 Units/L [facility] AST 55(H) 10 - 50 Units/L [facility] Blood 10/23/2024 3:26 AM CDT 10/23/2024 3:49 AM CDT us Jennifer Jeff MD LAB BLOOD ORDERABLES Final Resul t [facility] [place] [address] * TRANSESOPHAGEAL ECHO (MARK) W DOPPLER/CF WO CONTRAST (10/22/2024 2:40 PM CDT) Anatomical Region Laterality Modality Echocardiography 10/22/2024 2:01 PM CDT Narrative 10/23/2024 2:16 AM CDT [facility] [place] [address] Transesophageal Echocardiographic Report Patient Name: SULMA BAZAN A : 1950 (74y 3m) Gender: M Study Date: 10/22/2024 02:01:26 PM Ht(Inch): Wt(Lb): BSA: Senior Gis Analyst: Location: [id number] Order Provider: ELSIE FLORES BMI: Ref Provider: [...] Procedure Note Jeffry Bhatt MD - 10/23/2024 [facility] [place] [address] Transesophageal Echocardiographic Report Patient Name: SULMA BAZAN A : 1950 (74y 3m) Gender: M Study Date: 10/22/2024 02:01:26 PM Ht(Inch): Wt(Lb): BSA: Senior Gis Analyst: Location: [id number] Order Provider: ELSIE FLORES BMI: Ref Provider: [...] P2. Mean MV gradient 1 mmHg. MV [id number]. Aortic Valve: Trileaflet aortic valve. The aortic [...] leaflets, marked prolapse of P2, lesser extent [id number], partial flail medial P2. Moderate to severe [...] * eGFR (10/22/2024 1:43 AM CDT) Pathologist [facility] eGFR 89 >=60 mL/min/1. 73 m2 Comment: [...] MD LAB BLOOD ORDERABLES Final Resul t [facility] [place] [address] * (ABNORMAL) Differential, auto (10/22/2024 1:43 AM CDT) [facility] Neutrophil abs 4.29 1.50 - 6.50 K/cumm Imm gran abs 0.08 0.00 - 0.10 K/cumm [facility] Lymphocyte abs 0.64(L) 0.80 - 3.30 K/cumm [facility] Monocyte abs 0.71 0.20 - 0.80 K/cumm [facility] Eosinophil abs 0.06 0.00 - 0.50 K/cumm [facility] Basophil abs 0.02 0.00 - 0.10 K/cumm [facility] Neutrophil pct 74.1 % [facility] Comment: Interpretive Data Percent cell count reference ranges are not reported, since discordance with absolute values may lead to misinterpretation of CBC data. Current Interpretive Data was last revised on 2017. Imm gran pct 1.4 % STAN [facility] Comment: Interpretive Data Percent cell count reference ranges are not reported, since discordance with absolute values may lead to misinterpretation of CBC data. Current Interpretive Data was last revised on 2017. Lymphocyte pct 11.0 % STAN [facility] Comment: Interpretive Data Percent cell count reference ranges are not reported, since discordance with absolute values may lead to misinterpretation of CBC data. Current Interpretive Data was last revised on 2017. Monocyte pct 12.2 % STNA [facility] Comment: Interpretive Data Percent cell count reference ranges are not reported, since discordance with absolute values may lead to misinterpretation of CBC data. Current Interpretive Data was last revised on 2017. Eosinophil pct 1.0 % STAN [facility] Comment: Interpretive Data Percent cell count reference ranges are not reported, since discordance with absolute values may lead to misinterpretation of CBC data. Current Interpretive Data was last revised on 2017. Basophil pct 0.3 % STAN [facility] Comment: Interpretive Data Percent cell count reference ranges are not reported, since discordance with absolute values may lead to misinterpretation of CBC data. Current Interpretive Data was last revised on 2017. Blood 10/22/2024 1:43 AM CDT 10/22/2024 1:58 AM CDT us Jennifer Jeff MD LAB BLOOD ORDERABLES Final Resul t [facility] Department of Laboratories [place], [place] [id number] * (ABNORMAL) CBC with auto differential (10/22/2024 1:43 AM CDT) WBC 5.80 3.80 - 9.90 K/cumm Hgb 9.8(L) 13.0 - 17.5 g/dL [facility] Hct 30.2(L) 38.9 - 50.3 % [facility] Plt 177 150 - 400 K/cumm [facility] MPV 10.4 9.1 - 12.3 fL [facility] RBC 3.06(L) 4.30 - 5.80 M/cumm [facility] MCV 98.7(H) 81.3 - 96.4 fL [facility] MCH 32.0 27.1 - 33.3 pg [facility] MCHC 32.5 32.3 - 35.7 g/dL [facility] RDW CV 18.7(H) 11.1 - 14.9 % [facility] RDW SD 66.1(H) 35.7 - 48.1 fL [facility] NRBC abs 0.02(H) 0.00 - 0.01 K/cumm [facility] Blood 10/22/2024 1:43 AM CDT 10/22/2024 1:58 AM CDT Jennifer Jeff MD LAB BLOOD ORDERABLES Final Resul t Performing Organization Address [facility] Co de Phone Number [facility] Department [place] [address] * Type and screen (10/22/2024 1:43 AM CDT) Pathologist [facility] Minna, indirect Negative ABO Rh A Positive [facility] Blood 10/22/2024 1:43 AM CDT 10/22/2024 1:57 AM CDT Narrative [facility] - 10/22/2024 2:55 AM CDT Has the patient had Daratumumab or Isatuximab in the past 6 months?->Unknown Jennifer Jeff MD LAB BLOOD BANK TEST ORDERABLES F inal Result [facility] [place] [address] * Uric acid (10/22/2024 1:43 AM CDT) Pathologist [facility] Uric acid 4.3 3.0 - 8.0 mg/dL Blood 10/22/2024 1:4 3 AM CDT 10/22/2024 1:58 AM CDT Narrative [facility] - 10/22/2024 2:33 AM CDT Saturday and only. Morning draw. . Jennifer Jeff MD LAB BLOOD ORDERABLES Final Resul t Performing Organization Address [facility] Co de Phone Number [facility] [place] [address] * Phosphorus (10/22/2024 1:43 AM CDT) [facility] Phosphorus, pl 2.6 2.3 - 4.5 mg/dL Blood 10/22/2024 1:43 AM CDT 10/22/2024 1:58 AM CDT Jennifer Jeff MD LAB BLOOD ORDERABLES Final Resul t Performing Organization Address [facility] [place] [address] * (ABNORMAL) Lactate dehydrogenase (LD) (10/22/2024 1:43 AM CDT) [facility] Lactate dehydrogenase (LDH) 335(H) 100 - 250 Units/L Blood 10/22/2024 1:43 AM CDT 10/22/2024 1:58 AM CDT Narrative [facility] - 10/22/2024 2:33 AM CDT Saturday and only. Morning draw. us Jennifer Jeff MD LAB BLOOD ORDERABLES Final Resul t Performing Organization Address [facility] de Phone Number [facility] [place] [address] * (ABNORMAL) Comprehensive metabolic panel (10/22/2024 1:43 AM CDT) Sodium 137 135 - 145 mmol/L Potassium, pl 4.3 3.3 - 4.9 mmol/L [facility] Chloride 100 97 - 110 mmol/L [facility] CO2 26 22 - 32 mmol/L [facility] Anion gap 11 2 - 15 mmol/L [facility] BUN 24 6 - 25 mg/dL [facility] Creatinine 0.89 0.80 - 1.30 mg/dL [facility] Glucose 112 70 - 199 mg/dL [facility] Comment: Interpretive Data Fasting glucose >/= 126 [...] 2022. Calcium 8.9 8.5 - 10.3 mg/dL [facility] Bilirubin, total 0.6 0.1 - 1.2 mg/dL [facility] Protein, pl 6.8 6.5 - 8.5 g/dL [facility] Albumin 3.2(L) 3.5 - 5.0 g/dL [facility] Alk phos 514(H) 40 - 130 Units/L [facility] ALT 89(H) 7 - 55 Units/L [facility] AST 112(H) 10 - 50 Units/L [facility] Blood 10/22/2024 1:43 AM CDT 10/22/2024 1:58 AM CDT us Jennifer Jeff MD LAB BLOOD ORDERABLES Final Resul t [facility] Department [place] [address] * eGFR (10/21/2024 3:01 AM CDT) eGFR [...] MD LAB BLOOD ORDERABLES Final Resul t [facility] [place] [address] * (ABNORMAL) Differential, auto (10/21/2024 3:01 AM CDT) Pathologist [facility] Neutrophil abs 4.86 1.50 - 6.50 K/cumm Imm gran abs 0.14(H) 0.00 - 0.10 K/cumm [facility] Lymphocyte abs 0.61(L) 0.80 - 3.30 K/cumm [facility] Monocyte abs 0.78 0.20 - 0.80 K/cumm [facility] Eosinophil abs 0.05 0.00 - 0.50 K/cumm [facility] Basophil abs 0.01 0.00 - 0.10 K/cumm [facility] Neutrophil pct 75.2 % [facility] Comment: Interpretive Data Percent cell count reference ranges are not reported, since discordance with absolute values may lead to misinterpretation of CBC data. Current Interpretive Data was last revised on 2017. Imm gran pct 2.2 % [facility] Comment: Interpretive Data Percent cell count reference ranges are not reported, since discordance with absolute values may lead to misinterpretation of CBC data. Current Interpretive Data was last revised on 2017. Lymphocyte pct 9.5 % [facility] Comment: Interpretive Data Percent cell count reference ranges are not reported, since discordance with absolute values may lead to misinterpretation of CBC data. Current Interpretive Data was last revised on 2017. Monocyte pct 12.1 % [facility] Comment: Interpretive Data Percent cell count reference ranges are not reported, since discordance with absolute values may lead to misinterpretation of CBC data. Current Interpretive Data was last revised on 2017. Eosinophil pct 0.8 % [facility] Comment: Interpretive Data Percent cell count reference ranges are not reported, since discordance with absolute values may lead to misinterpretation of CBC data. Current Interpretive Data was last revised on 2017. Basophil pct 0.2 % [facility] Comment: Interpretive Data Percent cell count reference ranges are not reported, since discordance with absolute values may lead to misinterpretation of CBC data. Current Interpretive Data was last revised on 2017. Blood 10/21/2024 3:01 AM CDT 10/21/2024 3:18 AM CDT us Jennifer Jeff MD LAB BLOOD ORDERABLES Final Resul t [facility] [place] [address] * (ABNORMAL) CBC with auto differential (10/21/2024 3:01 AM CDT) WBC 6.45 3.80 - 9.90 K/cumm Hgb 9.3(L) 13.0 - 17.5 g/dL [facility] Hct 27.8(L) 38.9 - 50.3 % [facility] Plt 164 150 - 400 K/cumm [facility] MPV 10.0 9.1 - 12.3 fL [facility] RBC 2.82(L) 4.30 - 5.80 M/cumm [facility] MCV 98.6(H) 81.3 - 96.4 fL [facility] MCH 33.0 27.1 - 33.3 pg [facility] MCHC 33.5 32.3 - 35.7 g/dL [facility] RDW CV 18.2(H) 11.1 - 14.9 % [facility] RDW SD 63.2(H) 35.7 - 48.1 fL [facility] NRBC abs 0.02(H) 0.00 - 0.01 K/cumm [facility] Blood 10/21/2024 3:01 AM CDT 10/21/2024 3:18 AM CDT Jennifer Jeff MD LAB BLOOD ORDERABLES Final Resul t Performing Organization Address [facility] de Phone Number [facility] [place] [address] * (ABNORMAL) aPTT (10/21/2024 3:01 AM CDT) [...] BLOOD ORDERABLES Final Result Performing Organization Address [facility]/ZIP Co de Phone Number [facility] Department [place] [address] * (ABNORMAL) Protime-INR (10/21/2024 3:01 AM CDT) PT 13.5(H) 9.7 - 13.0 sec INR 1.24(H) 0.90 - 1.20 [facility] Comment: Interpretive data Oral anticoagulant therapeutic ranges: Venous thromboembolism prophylaxis or treatment: 2.0-3.0 CARDIOLOGY Standard range: 2.0-3.0 High-intensity range: 2.5-3.5 Refer to indication-specific guidelines for appropriate target ranges for prosthetic heart valve replacement. Current interpretive data was last revised on 2019. Blood 10/21/2024 3:01 AM CDT 10/21/2024 3:14 AM CDT Edgardo Castro MD LAB BLOOD ORDERABLES Final Result Performing Organization Address City/[facility]/ZIP Co de Phone Number [facility] [place] [address] * (ABNORMAL) Phosphorus (10/21/2024 3:01 AM CDT) Pathologist [facility] Phosphorus, pl 2.1(L) 2.3 - 4.5 mg/dL Blood 10/21/2024 3:01 AM CDT 10/21/2024 3:18 AM CDT Jennifer Jeff MD LAB BLOOD ORDERABLES Final Resul t Performing Organization Address City/[facility]/ZIP Co de Phone Number [facility] [place] [address] * (ABNORMAL) Comprehensive metabolic panel (10/21/2024 3:01 AM CDT) Sodium 138 135 - 145 mmol/L Potassium, pl 4.2 3.3 - 4.9 mmol/L [facility] Chloride 104 97 - 110 mmol/L [facility] CO2 27 22 - 32 mmol/L [facility] Anion gap 7 2 - 15 mmol/L [facility] BUN 26(H) 6 - 25 mg/dL [facility] Creatinine 0.88 0.80 - 1.30 mg/dL [facility] Glucose 126 70 - 199 mg/dL [facility] Comment: Interpretive Data Fasting glucose >/= 126 [...] 2022. Calcium 8.3(L) 8.5 - 10.3 mg/dL [facility] Bilirubin, total 0.4 0.1 - 1.2 mg/dL [facility] Protein, pl 6.4(L) 6.5 - 8.5 g/dL [facility] Albumin 3.0(L) 3.5 - 5.0 g/dL [facility] Alk phos 321(H) 40 - 130 Units/L [facility] ALT 65(H) 7 - 55 Units/L [facility] AST 58(H) 10 - 50 Units/L [facility] Blood 10/21/2024 3:01 AM CDT 10/21/2024 3:18 AM CDT us Jennifer Jeff MD LAB BLOOD ORDERABLES Final Resul t [facility] Department [place] [address] * ECG 12 lead (10/20/2024 1:34 PM CDT) Pathologist [facility] Ventricular Rate EKG/Min 60 BPM [facility] Atrial Rate 60 BPM [facility] UT-Interval (MSEC) 206 ms [facility] QRS-Interval (MSEC) 96 ms [facility] QT-Interval (MSEC) 446 ms [facility] QTc 446 ms [facility] P Jackson 18 degrees [facility] R Jackson -28 degrees [facility] T Jackson 3 degrees [facility] Diagnosis Atrial-paced rhythm Minimal voltage criteria for LVH, may be normal variant ( R in aVL ) Abnormal ECG When compared with ECG of 07-SEP-2024 11:34, T wave inversion no longer evident in Anterolateral leads QT has shortened Confirmed by JOSEE AKINS M.D ([id number]) on 10/21/2024 9:32:38 AM [facility] 10/20/2024 1:34 PM CDT 10/21/2024 9:32 AM CDT us Edgardo Castro MD ECG ORDERABLES Final Resul t [facility] * Heparin anti factor Xa activity (10/20/2024 12:10 PM CDT) [facility] Anti Factor Xa 1.35 IUnits/mL Comment: Interpretive [...] CDT 10/20/2024 12:29 PM CDT Narrative [facility] - 10/20/2024 12:50 PM CDT Please draw at 1215 - timing is important. Thanks! us Edgardo Castro MD LAB BLOOD ORDERABLES Final Result Performing Organization Address [facility] Co de Phone Number [facility] Department [place] [address] * eGFR (10/20/2024 3:02 AM CDT) eGFR [...] ORDERABLES Final Resul t Performing Organization Address [facility] Co de Phone Number [facility] Department [place] [address] * (ABNORMAL) Differential, auto (10/20/2024 3:02 AM CDT) Neutrophil abs 4.13 1.50 - 6.50 K/cumm Imm gran abs 0.23(H) 0.00 - 0.10 K/cumm [facility] Lymphocyte abs 0.75(L) 0.80 - 3.30 K/cumm [facility] Monocyte abs 0.65 0.20 - 0.80 K/cumm [facility] Eosinophil abs 0.06 0.00 - 0.50 K/cumm [facility] Basophil abs 0.01 0.00 - 0.10 K/cumm [facility] Neutrophil pct 70.9 % [facility] Comment: Interpretive Data Percent cell count reference ranges are not reported, since discordance with absolute values may lead to misinterpretation of CBC data. Current Interpretive Data was last revised on 2017. Imm gran pct 3.9 % [facility] Comment: Interpretive Data Percent cell count reference ranges are not reported, since discordance with absolute values may lead to misinterpretation of CBC data. Current Interpretive Data was last revised on 2017. Lymphocyte pct 12.9 % [facility] Comment: Interpretive Data Percent cell count reference ranges are not reported, since discordance with absolute values may lead to misinterpretation of CBC data. Current Interpretive Data was last revised on 2017. Monocyte pct 11.1 % [facility] Comment: Interpretive Data Percent cell count reference ranges are not reported, since discordance with absolute values may lead to misinterpretation of CBC data. Current Interpretive Data was last revised on 2017. Eosinophil pct 1.0 % [facility] Comment: Interpretive Data Percent cell count reference ranges are not reported, since discordance with absolute values may lead to misinterpretation of CBC data. Current Interpretive Data was last revised on 2017. Basophil pct 0.2 % [facility] Comment: Interpretive Data Percent cell count reference ranges are not reported, since discordance with absolute values may lead to misinterpretation of CBC data. Current Interpretive Data was last revised on 2017. Blood 10/20/2024 3:02 AM CDT 10/20/2024 4:36 AM CDT us Jennifer Jeff MD LAB BLOOD ORDERABLES Final Resul t [facility] Department [place] [address] * (ABNORMAL) CBC with auto differential (10/20/2024 3:02 AM CDT) WBC 5.83 3.80 - 9.90 K/cumm Hgb 9.2(L) 13.0 - 17.5 g/dL [facility] Hct 27.9(L) 38.9 - 50.3 % [facility] Plt 167 150 - 400 K/cumm [facility] MPV 10.4 9.1 - 12.3 fL [facility] RBC 2.84(L) 4.30 - 5.80 M/cumm [facility] MCV 98.2(H) 81.3 - 96.4 fL [facility] MCH 32.4 27.1 - 33.3 pg [facility] MCHC 33.0 32.3 - 35.7 g/dL [facility] RDW CV 17.8(H) 11.1 - 14.9 % [facility] RDW SD 61.9(H) 35.7 - 48.1 fL [facility] NRBC abs 0.03(H) 0.00 - 0.01 K/cumm [facility] Blood 10/20/2024 3:02 AM CDT 10/20/2024 4:36 AM CDT Jennifer Jeff MD LAB BLOOD ORDERABLES Final Resul t Performing Organization Address City/[facility]/ZIP Co de Phone Number [facility] Department [place] [address] * Phosphorus (10/20/2024 3:02 AM CDT) Pathologist [facility] Phosphorus, pl 2.7 2.3 - 4.5 mg/dL Blood 10/20/2024 3:02 AM CDT 10/20/2024 4:36 AM CDT Jennifer Jeff MD LAB BLOOD ORDERABLES Final Resul t [facility] [place] [address] * (ABNORMAL) Comprehensive metabolic panel (10/20/2024 3:02 AM CDT) [facility] Sodium 138 135 - 145 mmol/L Potassium, pl 3.5 3.3 - 4.9 mmol/L [facility] Chloride 102 97 - 110 mmol/L [facility] CO2 27 22 - 32 mmol/L [facility] Anion gap 9 2 - 15 mmol/L [facility] BUN 26(H) 6 - 25 mg/dL [facility] Creatinine 0.91 0.80 - 1.30 mg/dL [facility] Glucose 115 70 - 199 mg/dL [facility] Comment: Interpretive Data Fasting glucose >/= 126 [...] 2022. Calcium 8.6 8.5 - 10.3 mg/dL [facility] Bilirubin, total 0.5 0.1 - 1.2 mg/dL [facility] Protein, pl 6.2(L) 6.5 - 8.5 g/dL [facility] Albumin 3.1(L) 3.5 - 5.0 g/dL [facility] Alk phos 289(H) 40 - 130 Units/L [facility] ALT 66(H) 7 - 55 Units/L [facility] AST 59(H) 10 - 50 Units/L [facility] Blood 10/20/2024 3:0 2 AM CDT 10/20/2024 4:36 AM CDT us Jennifer Jeff MD LAB BLOOD ORDERABLES Final Resul t [facility] Department [place] [address] * eGFR (10/19/2024 12:56 AM CDT) Pathologist [facility] eGFR 89 >=60 mL/min/1. 73 m2 Comment: [...] MD LAB BLOOD ORDERABLES Final Resul t [facility] Department [place] [address] * (ABNORMAL) Differential, auto (10/19/2024 12:56 AM CDT) [facility] Neutrophil abs 4.13 1.50 - 6.50 K/cumm Imm gran abs 0.27(H) 0.00 - 0.10 K/cumm [facility] Lymphocyte abs 0.68(L) 0.80 - 3.30 K/cumm [facility] Monocyte abs 0.83(H) 0.20 - 0.80 K/cumm [facility] Eosinophil abs 0.03 0.00 - 0.50 K/cumm [facility] Basophil abs 0.02 0.00 - 0.10 K/cumm [facility] Neutrophil pct 69.4 % [facility] Comment: Interpretive Data Percent cell count reference ranges are not reported, since discordance with absolute values may lead to misinterpretation of CBC data. Current Interpretive Data was last revised on 2017. Imm gran pct 4.5 % [facility] Comment: Interpretive Data Percent cell count reference ranges are not reported, since discordance with absolute values may lead to misinterpretation of CBC data. Current Interpretive Data was last revised on 2017. Lymphocyte pct 11.4 % [facility] Comment: Interpretive Data Percent cell count reference ranges are not reported, since discordance with absolute values may lead to misinterpretation of CBC data. Current Interpretive Data was last revised on 2017. Monocyte pct 13.9 % [facility] Comment: Interpretive Data Percent cell count reference ranges are not reported, since discordance with absolute values may lead to misinterpretation of CBC data. Current Interpretive Data was last revised on 2017. Eosinophil pct 0.5 % [facility] Comment: Interpretive Data Percent cell count reference ranges are not reported, since discordance with absolute values may lead to misinterpretation of CBC data. Current Interpretive Data was last revised on 2017. Basophil pct 0.3 % [facility] Comment: Interpretive Data Percent cell count reference ranges are not reported, since discordance with absolute values may lead to misinterpretation of CBC data. Current Interpretive Data was last revised on 2017. Blood 10/19/2024 12:5 6 AM CDT 10/19/2024 1:21 AM CDT us Jennifer Jeff MD LAB BLOOD ORDERABLES Final Resul t [facility] Department [place] [address] * (ABNORMAL) CBC with auto differential (10/19/2024 12:56 AM CDT) WBC 5.96 3.80 - 9.90 K/cumm Hgb 9.2(L) 13.0 - 17.5 g/dL [facility] Hct 27.4(L) 38.9 - 50.3 % [facility] Plt 161 150 - 400 K/cumm [facility] MPV 10.1 9.1 - 12.3 fL [facility] RBC 2.83(L) 4.30 - 5.80 M/cumm [facility] MCV 96.8(H) 81.3 - 96.4 fL [facility] MCH 32.5 27.1 - 33.3 pg [facility] MCHC 33.6 32.3 - 35.7 g/dL [facility] RDW CV 17.5(H) 11.1 - 14.9 % [facility] RDW SD 59.7(H) 35.7 - 48.1 fL [facility] NRBC abs 0.03(H) 0.00 - 0.01 K/cumm [facility] Blood 10/19/2024 12:5 6 AM CDT 10/19/2024 1:21 AM CDT Jennifer Jeff MD LAB BLOOD ORDERABLES Final Resul t Performing Organization Address City/[facility] de Phone Number [facility] Department [place] [address] * (ABNORMAL) aPTT (10/19/2024 12:56 AM CDT) [facility] aPTT 39(H) 28 - 38 sec Comment: Interpretive Data Heparin therapeutic range: 66.0 - 100.0 seconds. Range based on correlation with therapeutic heparin activity range of 0.3 - 0.7 Units/mL. Current interpretive data was last revised on 2023. Blood 10/19/2024 12:5 6 AM CDT 10/19/2024 1:44 AM CDT Jennifer Jeff MD LAB BLOOD ORDERABLES Final Resul t Performing Organization Address City/[facility] Co de Phone Number [facility] Department [place] [address] * (ABNORMAL) Protime-INR (10/19/2024 12:56 AM CDT) PT 13.8(H) 9.7 - 13.0 sec INR 1.27(H) 0.90 - 1.20 [facility] Comment: Interpretive data Oral anticoagulant therapeutic ranges: Venous thromboembolism prophylaxis or treatment: 2.0-3.0 CARDIOLOGY Standard range: 2.0-3.0 High-intensity range: 2.5-3.5 Refer to indication-specific guidelines for appropriate target ranges for prosthetic heart valve replacement. Current interpretive data was last revised on 2019. Blood 10/19/2024 12:5 6 AM CDT 10/19/2024 1:44 AM CDT Jennifer Jeff MD LAB BLOOD ORDERABLES Final Resul t Performing Organization Address City/[facility]/ZIP Co de Phone Number [facility] Department [place] [address] * Type and screen (10/19/2024 12:56 AM CDT) ABO Rh A Positive Minna, indirect Negative [facility] Blood 10/19/2024 12:5 6 AM CDT 10/19/2024 1:35 AM CDT Narrative [facility] - 10/19/2024 3:54 AM CDT Has the patient had Daratumumab or Isatuximab in the past 6 months?->Unknown Jennifer Jeff MD LAB BLOOD BANK TEST ORDERABLES F inal Result [facility] Department [place] [address] * (ABNORMAL) Uric acid (10/19/2024 12:56 AM CDT) Uric acid 2.8(L) 3.0 - 8.0 mg/dL Blood 10/19/2024 12:5 6 AM CDT 10/19/2024 1:24 AM CDT Narrative [facility] - 10/19/2024 2:03 AM CDT Saturday and only. Morning draw. . Jennifer Jeff MD LAB BLOOD ORDERABLES Final Resul t Performing Organization Address [facility] de Phone Number [facility] [place] [address] * Phosphorus (10/19/2024 12:56 AM CDT) [facility] Phosphorus, pl 3.0 2.3 - 4.5 mg/dL Blood 10/19/2024 12:5 6 AM CDT 10/19/2024 1:24 AM CDT Jennifer Jeff MD LAB BLOOD ORDERABLES Final Resul t Performing Organization Address [facility] de Phone Number [facility] [place] [address] * (ABNORMAL) Lactate dehydrogenase (LD) (10/19/2024 12:56 AM CDT) [facility] Lactate dehydrogenase (LDH) 251(H) 100 - 250 Units/L Blood 10/19/2024 12:5 6 AM CDT 10/19/2024 1:24 AM CDT Narrative [facility] - 10/19/2024 2:03 AM CDT Saturday and only. Morning draw. Jennifer Jeff MD LAB BLOOD ORDERABLES Final Resul t Performing Organization Address [facility] [place] [address] * (ABNORMAL) Comprehensive metabolic panel (10/19/2024 12:56 AM CDT) [facility] Sodium 138 135 - 145 mmol/L Potassium, pl 3.6 3.3 - 4.9 mmol/L [facility] Chloride 102 97 - 110 mmol/L [facility] CO2 26 22 - 32 mmol/L [facility] Anion gap 10 2 - 15 mmol/L [facility] BUN 27(H) 6 - 25 mg/dL [facility] Creatinine 0.89 0.80 - 1.30 mg/dL [facility] Glucose 147 70 - 199 mg/dL [facility] Comment: Interpretive Data Fasting glucose >/= 126 [...] 2022. Calcium 8.5 8.5 - 10.3 mg/dL [facility] Bilirubin, total 0.6 0.1 - 1.2 mg/dL [facility] Protein, pl 6.3(L) 6.5 - 8.5 g/dL [facility] Albumin 3.1(L) 3.5 - 5.0 g/dL [facility] Alk phos 319(H) 40 - 130 Units/L [facility] ALT 69(H) 7 - 55 Units/L [facility] AST 87(H) 10 - 50 Units/L [facility] Blood 10/19/2024 12:5 6 AM CDT 10/19/2024 1:24 AM CDT us Jennifer Jeff MD LAB BLOOD ORDERABLES Final Resul t [facility] Department [place] [address] * eGFR (10/18/2024 1:19 AM CDT) eGFR [...] MD LAB BLOOD ORDERABLES Final Resul t [facility] [place] [address] * (ABNORMAL) Differential, auto (10/18/2024 1:19 AM CDT) Neutrophil abs 4.55 1.50 - 6.50 K/cumm Imm gran abs 0.31(H) 0.00 - 0.10 K/cumm [facility] Lymphocyte abs 0.79(L) 0.80 - 3.30 K/cumm [facility] Monocyte abs 0.94(H) 0.20 - 0.80 K/cumm [facility] Eosinophil abs 0.02 0.00 - 0.50 K/cumm [facility] Basophil abs 0.02 0.00 - 0.10 K/cumm [facility] Neutrophil pct 68.6 % [facility] Comment: Interpretive Data Percent cell count reference ranges are not reported, since discordance with absolute values may lead to misinterpretation of CBC data. Current Interpretive Data was last revised on 2017. Imm gran pct 4.7 % [facility] Comment: Interpretive Data Percent cell count reference ranges are not reported, since discordance with absolute values may lead to misinterpretation of CBC data. Current Interpretive Data was last revised on 2017. Lymphocyte pct 11.9 % [facility] Comment: Interpretive Data Percent cell count reference ranges are not reported, since discordance with absolute values may lead to misinterpretation of CBC data. Current Interpretive Data was last revised on 2017. Monocyte pct 14.2 % [facility] Comment: Interpretive Data Percent cell count reference ranges are not reported, since discordance with absolute values may lead to misinterpretation of CBC data. Current Interpretive Data was last revised on 2017. Eosinophil pct 0.3 % [facility] Comment: Interpretive Data Percent cell count reference ranges are not reported, since discordance with absolute values may lead to misinterpretation of CBC data. Current Interpretive Data was last revised on 2017. Basophil pct 0.3 % [facility] Comment: Interpretive Data Percent cell count reference ranges are not reported, since discordance with absolute values may lead to misinterpretation of CBC data. Current Interpretive Data was last revised on 2017. Blood 10/18/2024 1:19 AM CDT 10/18/2024 1:34 AM CDT us Jennifer Jeff MD LAB BLOOD ORDERABLES Final Resul t [facility] [place] [address] * (ABNORMAL) CBC with auto differential (10/18/2024 1:19 AM CDT) WBC 6.63 3.80 - 9.90 K/cumm Hgb 9.6(L) 13.0 - 17.5 g/dL [facility] Hct 29.0(L) 38.9 - 50.3 % [facility] Plt 179 150 - 400 K/cumm [facility] MPV 10.3 9.1 - 12.3 fL [facility] RBC 2.99(L) 4.30 - 5.80 M/cumm [facility] MCV 97.0(H) 81.3 - 96.4 fL [facility] MCH 32.1 27.1 - 33.3 pg [facility] MCHC 33.1 32.3 - 35.7 g/dL [facility] RDW CV 17.2(H) 11.1 - 14.9 % [facility] RDW SD 59.3(H) 35.7 - 48.1 fL [facility] NRBC abs 0.02(H) 0.00 - 0.01 K/cumm [facility] Blood 10/18/2024 1:19 AM CDT 10/18/2024 1:34 AM CDT Jennifer Jeff MD LAB BLOOD ORDERABLES Final Resul t Performing Organization Address City/[facility] Co de Phone Number [facility] [place] [address] * Phosphorus (10/18/2024 1:19 AM CDT) [facility] Phosphorus, pl 3.3 2.3 - 4.5 mg/dL Blood 10/18/2024 1:19 AM CDT 10/18/2024 1:34 AM CDT Jennifer Jeff MD LAB BLOOD ORDERABLES Final Resul t Performing Organization Address City/[facility] Co de Phone Number [facility] Department [place] [address] * (ABNORMAL) Comprehensive metabolic panel (10/18/2024 1:19 AM CDT) Pathologist [facility] Sodium 137 135 - 145 mmol/L Potassium, pl 3.8 3.3 - 4.9 mmol/L [facility] Chloride 100 97 - 110 mmol/L [facility] CO2 27 22 - 32 mmol/L [facility] Anion gap 10 2 - 15 mmol/L [facility] BUN 32(H) 6 - 25 mg/dL [facility] Creatinine 1.05 0.80 - 1.30 mg/dL [facility] Glucose 125 70 - 199 mg/dL [facility] Comment: Interpretive Data Fasting glucose >/= 126 [...] 2022. Calcium 8.8 8.5 - 10.3 mg/dL [facility] Bilirubin, total 0.5 0.1 - 1.2 mg/dL [facility] Protein, pl 6.7 6.5 - 8.5 g/dL [facility] Albumin 3.3(L) 3.5 - 5.0 g/dL [facility] Alk phos 336(H) 40 - 130 Units/L [facility] ALT 56(H) 7 - 55 Units/L [facility] AST 61(H) 10 - 50 Units/L [facility] Blood 10/18/2024 1:19 AM CDT 10/18/2024 1:34 AM CDT us Jennifer Jeff MD LAB BLOOD ORDERABLES Final Resul t [facility] [place] [address] * C. difficile testing Stool (10/17/2024 1:53 PM CDT) [facility] Result Negative Negative Toxin Result Negative Negative [facility] C. diff result Negative, free toxin Negative, free toxin [facility] C. diff interp Negative for toxigenic Clostridioides (Clostridium) difficile. Analysis was performed using a glutamate dehydrogenase antigen detection assay combined with a C. difficile toxin detection assay. [facility] Stool 10/17/2024 1:53 PM CDT 10/17/2024 3:21 PM CDT Trever Dempsey MD LAB MICROBIOLOGY - GENERAL ORD ERABLES Final Result Performing Organization Address [facility] Co de Phone Number [facility] [place] [address] * Infection Prevention VRE Culture Stool (10/17/2024 1:53 PM CDT) Report Final Report: Negative Stool 10/17/2024 1:53 PM CDT 10/17/2024 6:51 PM CDT Narrative [facility] - 10/19/2024 9:32 PM CDT Surveillance culture for Infection Prevention purposes only; results indicate colonization, not infection requiring treatment. Testing performed by [facility] ([phone]). Trever Dempsey MD LAB MICROBIOLOGY - GENERAL ORD ERABLES Final Result Performing Organization Address [facility] de Phone Number [facility] Department [place] [address] * eGFR (10/17/2024 12:44 AM CDT) eGFR [...] Castro MD LAB BLOOD ORDERABLES Final Result [facility] [place] [address] * (ABNORMAL) Differential, auto (10/17/2024 12:44 AM CDT) Neutrophil abs 7.00(H) 1.50 - 6.50 K/cumm Imm gran abs 0.13(H) 0.00 - 0.10 K/cumm [facility] Lymphocyte abs 0.70(L) 0.80 - 3.30 K/cumm [facility] Monocyte abs 0.81(H) 0.20 - 0.80 K/cumm [facility] Eosinophil abs 0.01 0.00 - 0.50 K/cumm [facility] Basophil abs 0.01 0.00 - 0.10 [facility] Neutrophil pct 80.8 % [facility] Comment: Interpretive Data Percent cell count reference ranges are not reported, since discordance with absolute values may lead to misinterpretation of CBC data. Current Interpretive Data was last revised on 2017. Imm gran pct 1.5 % [facility] Comment: Interpretive Data Percent cell count reference ranges are not reported, since discordance with absolute values may lead to misinterpretation of CBC data. Current Interpretive Data was last revised on 2017. Lymphocyte pct 8.1 % [facility] Comment: Interpretive Data Percent cell count reference ranges are not reported, since discordance with absolute values may lead to misinterpretation of CBC data. Current Interpretive Data was last revised on 2017. Monocyte pct 9.4 % [facility] Comment: Interpretive Data Percent cell count reference ranges are not reported, since discordance with absolute values may lead to misinterpretation of CBC data. Current Interpretive Data was last revised on 2017. Eosinophil pct 0.1 % [facility] Comment: Interpretive Data Percent cell count reference ranges are not reported, since discordance with absolute values may lead to misinterpretation of CBC data. Current Interpretive Data was last revised on 2017. Basophil pct 0.1 % [facility] Comment: Interpretive Data Percent cell count reference ranges are not reported, since discordance with absolute values may lead to misinterpretation of CBC data. Current Interpretive Data was last revised on 2017. Blood 10/17/2024 12:4 4 AM CDT 10/17/2024 1:05 AM CDT us Edgardo Castro MD LAB BLOOD ORDERABLES Final Result [facility] [place] [address] * (ABNORMAL) CBC with auto differential (10/17/2024 12:44 AM CDT) WBC 8.66 3.80 - 9.90 K/cumm Hgb 9.9(L) 13.0 - 17.5 g/dL [facility] Hct 30.6(L) 38.9 - 50.3 % [facility] Plt 143(L) 150 - 400 K/cumm [facility] MPV 10.8 9.1 - 12.3 fL [facility] RBC 3.12(L) 4.30 - 5.80 M/cumm [facility] MCV 98.1(H) 81.3 - 96.4 fL [facility] MCH 31.7 27.1 - 33.3 pg [facility] MCHC 32.4 32.3 - 35.7 g/dL [facility] RDW CV 16.8(H) 11.1 - 14.9 % [facility] RDW SD 58.9(H) 35.7 - 48.1 fL [facility] NRBC abs 0.00 0.00 - 0.01 K/cumm [facility] Blood 10/17/2024 12:4 4 AM CDT 10/17/2024 1:05 AM CDT Jennifer Jeff MD LAB BLOOD ORDERABLES Final Resul t Performing Organization Address City/[facility]/ZIP Co de Phone Number [facility] Department [place] [address] * Phosphorus (10/17/2024 12:44 AM CDT) Pathologist [facility] Phosphorus, pl 2.8 2.3 - 4.5 mg/dL Blood 10/17/2024 12:4 4 AM CDT 10/17/2024 1:05 AM CDT Jennifer Jeff MD LAB BLOOD ORDERABLES Final Resul t Performing Organization Address [facility] de Phone Number [facility] Department [place] [address] * (ABNORMAL) Comprehensive metabolic panel (10/17/2024 12:44 AM CDT) [facility] Sodium 135 135 - 145 mmol/L Potassium, pl 4.2 3.3 - 4.9 mmol/L [facility] Comment:Hemolyzed; Potassium value may be falsely elevated by as much as 0.3-0.5 mmol/L. Suggest redraw and reanalysis. Chloride 102 97 - 110 mmol/L [facility] CO2 24 22 - 32 mmol/L [facility] Anion gap 9 2 - 15 mmol/L [facility] BUN 34(H) 6 - 25 mg/dL [facility] Creatinine 0.84 0.80 - 1.30 mg/dL [facility] Glucose 116 70 - 199 mg/dL [facility] Comment: Interpretive Data Fasting glucose >/= 126 [...] 2022. Calcium 8.6 8.5 - 10.3 mg/dL [facility] Bilirubin, total 0.5 0.1 - 1.2 mg/dL [facility] Protein, pl 6.7 6.5 - 8.5 g/dL [facility] Albumin 3.1(L) 3.5 - 5.0 g/dL [facility] Alk phos 266(H) 40 - 130 Units/L [facility] ALT 33 7 - 55 Units/L [facility] AST 52(H) 10 - 50 Units/L [facility] Comment:Hemolyzed; result ma y be falsely elevated Blood 10/17/2024 12:4 4 AM CDT 10/17/2024 1:05 AM CDT Jennifer Jeff MD LAB BLOOD ORDERABLES Final Resul t Performing Organization Address City/[facility]/ZIP Co de Phone Number [facility] Department [place] [address] * (ABNORMAL) Lactate (10/16/2024 5:27 AM CDT) [facility] Lactate 2.1(H) 0.7 - 2.0 mmol/L Blood 10/16/2024 5:27 AM CDT 10/16/2024 5:51 AM CDT us Edgardo Castro MD LAB BLOOD ORDERABLES Final Result [facility] Department [place] [address] * eGFR (10/16/2024 5:27 AM CDT) Pathologist [facility] eGFR 89 >=60 mL/min/1. 73 m2 Comment: [...] Castro MD LAB BLOOD ORDERABLES Final Result [facility] [place] [address] * (ABNORMAL) Differential, auto (10/16/2024 5:27 AM CDT) Neutrophil abs 7.16(H) 1.50 - 6.50 K/cumm Imm gran abs 0.07 0.00 - 0.10 K/cumm [facility] Lymphocyte abs 0.37(L) 0.80 - 3.30 K/cumm [facility] Monocyte abs 0.56 0.20 - 0.80 K/cumm [facility] Eosinophil abs 0.00 0.00 - 0.50 K/cumm [facility] Basophil abs 0.00 0.00 - 0.10 K/cumm [facility] Neutrophil pct 87.7 % [facility] Comment: Interpretive Data Percent cell count reference ranges are not reported, since discordance with absolute values may lead to misinterpretation of CBC data. Current Interpretive Data was last revised on 2017. Imm gran pct 0.9 % [facility] Comment: Interpretive Data Percent cell count reference ranges are not reported, since discordance with absolute values may lead to misinterpretation of CBC data. Current Interpretive Data was last revised on 2017. Lymphocyte pct 4.5 % [facility] Comment: Interpretive Data Percent cell count reference ranges are not reported, since discordance with absolute values may lead to misinterpretation of CBC data. Current Interpretive Data was last revised on 2017. Monocyte pct 6.9 % [facility] Comment: Interpretive Data Percent cell count reference ranges are not reported, since discordance with absolute values may lead to misinterpretation of CBC data. Current Interpretive Data was last revised on 2017. Eosinophil pct 0.0 % [facility] Comment: Interpretive Data Percent cell count reference ranges are not reported, since discordance with absolute values may lead to misinterpretation of CBC data. Current Interpretive Data was last revised on 2017. Basophil pct 0.0 % [facility] Comment: Interpretive Data Percent cell count reference ranges are not reported, since discordance with absolute values may lead to misinterpretation of CBC data. Current Interpretive Data was last revised on 2017. Blood 10/16/2024 5:27 AM CDT 10/16/2024 5:51 AM CDT us Edgardo Castro MD LAB BLOOD ORDERABLES Final Result [facility] Department [place] [address] * (ABNORMAL) CBC with auto differential (10/16/2024 5:27 AM CDT) WBC 8.16 3.80 - 9.90 K/cumm Hgb 9.7(L) 13.0 - 17.5 g/dL [facility] Hct 29.4(L) 38.9 - 50.3 % [facility] Plt 171 150 - 400 K/cumm [facility] MPV 10.4 9.1 - 12.3 fL [facility] RBC 3.01(L) 4.30 - 5.80 M/cumm [facility] MCV 97.7(H) 81.3 - 96.4 fL [facility] MCH 32.2 27.1 - 33.3 pg [facility] MCHC 33.0 32.3 - 35.7 g/dL [facility] RDW CV 16.5(H) 11.1 - 14.9 % [facility] RDW SD 58.3(H) 35.7 - 48.1 fL [facility] NRBC abs 0.00 0.00 - 0.01 K/cumm [facility] Blood 10/16/2024 5:27 AM CDT 10/16/2024 5:51 AM CDT Jennifer Jeff MD LAB BLOOD ORDERABLES Final Resul t Performing Organization Address [facility] de Phone Number [facility] [place] [address] * (ABNORMAL) aPTT (10/16/2024 5:27 AM CDT) [...] ORDERABLES Final Resul t Performing Organization Address [facility] de Phone Number [facility] [place] [address] * (ABNORMAL) Protime-INR (10/16/2024 5:27 AM CDT) PT 13.8(H) 9.7 - 13.0 sec INR 1.27(H) 0.90 - 1.20 [facility] Comment: Interpretive data Oral anticoagulant therapeutic ranges: Venous thromboembolism prophylaxis or treatment: 2.0-3.0 CARDIOLOGY Standard range: 2.0-3.0 High-intensity range: 2.5-3.5 Refer to indication-specific guidelines for appropriate target ranges for prosthetic heart valve replacement. Current interpretive data was last revised on 2019. Blood 10/16/2024 5:27 AM CDT 10/16/2024 5:46 AM CDT us Jennifer Jeff MD LAB BLOOD ORDERABLES Final Resul t Performing Organization Address [facility] Co de Phone Number [facility] [place] [address] * Type and screen (10/16/2024 5:27 AM CDT) ABO Rh A Positive Minna, indirect Negative [facility] Blood 10/16/2024 5:27 AM CDT 10/16/2024 5:38 AM CDT Narrative [facility] - 10/16/2024 6:46 AM CDT Has the patient had Daratumumab or Isatuximab in the past 6 months?->Unknown us Jennifer Jeff MD LAB BLOOD BANK TEST ORDERABLES F inal Result Performing Organization Address [facility] de Phone Number [facility] [place] [address] * Uric acid (10/16/2024 5:27 AM CDT) Uric acid 4.0 3.0 - 8.0 mg/dL Blood 10/16/2024 5:27 AM CDT 10/16/2024 5:51 AM CDT Narrative [facility] - 10/16/2024 6:21 AM CDT Saturday and only. Morning draw. . us Jennifer Jeff MD LAB BLOOD ORDERABLES Final Resul t Performing Organization Address [facility] Co de Phone Number [facility] [place] [address] * Phosphorus (10/16/2024 5:27 AM CDT) [facility] Phosphorus, pl 2.9 2.3 - 4.5 mg/dL Blood 10/16/2024 5:27 AM CDT 10/16/2024 5:51 AM CDT Jennifer Jeff MD LAB BLOOD ORDERABLES Final Resul t Performing Organization Address City/[facility] Co de Phone Number [facility] Department [place] [address] * Lactate dehydrogenase (LD) (10/16/2024 5:27 AM CDT) [facility] Lactate dehydrogenase (LDH) 233 100 - 250 Units/L Blood 10/16/2024 5:27 AM CDT 10/16/2024 5:51 AM CDT Narrative [facility] - 10/16/2024 6:21 AM CDT Saturday and only. Morning draw. Jennifer Jeff MD LAB BLOOD ORDERABLES Final Resul t Performing Organization Address [facility] de Phone Number [facility] Department [place] [address] * (ABNORMAL) Comprehensive metabolic panel (10/16/2024 5:27 AM CDT) [facility] Sodium 135 135 - 145 mmol/L Potassium, pl 4.0 3.3 - 4.9 mmol/L [facility] Chloride 100 97 - 110 mmol/L [facility] CO2 26 22 - 32 mmol/L [facility] Anion gap 9 2 - 15 mmol/L [facility] BUN 35(H) 6 - 25 mg/dL [facility] Creatinine 0.90 0.80 - 1.30 mg/dL [facility] Glucose 190 70 - 199 mg/dL [facility] Comment: Interpretive Data Fasting glucose >/= 126 [...] Calcium 9.0 8.5 - 10.3 mg/dL [facility] Bilirubin, total 0.5 0.1 - 1.2 mg/dL [facility] Protein, pl 6.8 6.5 - 8.5 g/dL [facility] Albumin 3.2(L) 3.5 - 5.0 g/dL [facility] Alk phos 300(H) 40 - 130 Units/L [facility] ALT 38 7 - 55 Units/L [facility] AST 42 10 - 50 Units/L [facility] Blood 10/16/2024 5:27 AM CDT 10/16/2024 5:51 AM CDT us Jennifer Jeff MD LAB BLOOD ORDERABLES Final Resul t [facility] Department [place] [address] * XR Chest Pa Lateral 2 Vw [...] 1.030 [facility] pH, urine 6.0 [facility] Comment: Interpretive Data U rine pH is affected by diet, medications, systemic acid-base disturbances, and renal tubular function. pH may affect urinary stone formation. For example, urine pH below 6.0 may help reduce the tendency for calcium phosphate stones and pH greater than 6.0 may reduce the tendency for uric acid stone formation. Source: [employer]rop[employer] Current Interpretive Data was last revised on 2017 Protein, ur ql Negative Negative [facility] Glucose, ur ql Negative Negative [facility] Ketones, ur Negative Negative [facility] Bilirubin, ur Negative Negative [facility] Blood, ur Negative Negative [facility] Urobilinogen, ur <2.0 <2.0 mg/dL [facility] Nitrite, ur Negative Negative [facility] Leukocyte esterase, ur Negative Negative [facility] UA reflex comment Reflex conditions for microscopic UA and culture not met. [facility] Urine 10/15/2024 7:01 PM CDT 10/15/2024 7:05 PM CDT Candi Rincon MD LAB MICROBIOLOGY - GENERAL ORDERABLES Final Result Performing Organization Address City/[facility] Co de Phone Number [facility] Department [place] [address] * (ABNORMAL) Sepsis Lactate w/ Reflex (10/15/2024 5:22 PM CDT) Sepsis Lactate 2.2(H) 0.7 - 2.0 mmol/L Blood 10/15/2024 5:22 PM CDT 10/15/2024 5:26 PM CDT Candi Rincon MD LAB BLOOD ORDERA BLES Final Result Performing Organization Address [facility] de Phone Number [facility] Department [place] [address] * eGFR (10/15/2024 5:22 PM CDT) eGFR [...] MD LAB BLOOD ORDERA BLES Final Result [facility] [place] [address] * (ABNORMAL) Differential, auto (10/15/2024 5:22 PM CDT) Neutrophil abs 6.81(H) 1.50 - 6.50 K/cumm Imm gran abs 0.07 0.00 - 0.10 K/cumm [facility] Lymphocyte abs 0.18(L) 0.80 - 3.30 K/cumm [facility] Monocyte abs 0.17(L) 0.20 - 0.80 K/cumm [facility] Eosinophil abs 0.00 0.00 - 0.50 K/cumm [facility] Basophil abs 0.01 0.00 - 0.10 K/cumm [facility] Neutrophil pct 94.1 % [facility] Comment: Interpretive Data Percent cell count reference ranges are not reported, since discordance with absolute values may lead to misinterpretation of CBC data. Current Interpretive Data was last revised on 2017. Imm gran pct 1.0 % [facility] Comment: Interpretive Data Percent cell count reference ranges are not reported, since discordance with absolute values may lead to misinterpretation of CBC data. Current Interpretive Data was last revised on 2017. Lymphocyte pct 2.5 % [facility] Comment: Interpretive Data Percent cell count reference ranges are not reported, since discordance with absolute values may lead to misinterpretation of CBC data. Current Interpretive Data was last revised on 2017. Monocyte pct 2.3 % [facility] Comment: Interpretive Data Percent cell count reference ranges are not reported, since discordance with absolute values may lead to misinterpretation of CBC data. Current Interpretive Data was last revised on 2017. Eosinophil pct 0.0 % [facility] Comment: Interpretive Data Percent cell count reference ranges are not reported, since discordance with absolute values may lead to misinterpretation of CBC data. Current Interpretive Data was last revised on 2017. Basophil pct 0.1 % [facility] Comment: Interpretive Data Percent cell count reference ranges are not reported, since discordance with absolute values may lead to misinterpretation of CBC data. Current Interpretive Data was last revised on 2017. Blood 10/15/2024 5:22 PM CDT 10/15/2024 5:43 PM CDT us Candi Rincon MD LAB BLOOD ORDERA BLES Final Result [facility] [place] [address] * (ABNORMAL) CBC with auto differential (10/15/2024 5:22 PM CDT) WBC 7.24 3.80 - 9.90 K/cumm Hgb 10.4(L) 13.0 - 17.5 g/dL [facility] Hct 31.7(L) 38.9 - 50.3 % [facility] Plt 193 150 - 400 K/cumm [facility] MPV 10.0 9.1 - 12.3 fL [facility] RBC 3.27(L) 4.30 - 5.80 M/cumm [facility] MCV 96.9(H) 81.3 - 96.4 fL [facility] MCH 31.8 27.1 - 33.3 pg [facility] MCHC 32.8 32.3 - 35.7 g/dL [facility] RDW CV 16.6(H) 11.1 - 14.9 % [facility] RDW SD 59.2(H) 35.7 - 48.1 fL [facility] NRBC abs 0.00 0.00 - 0.01 K/cumm [facility] Blood 10/15/2024 5:22 PM CDT 10/15/2024 5:43 PM CDT Result [facility] Candi Rincon MD LAB BLOOD ORDERA BLES Final Result [facility] [place] [address] * Blood culture Blood Peripheral (10/15/2024 5:22 PM CDT) Report Final Report: No growth Blood (Peripheral) 10/15/2024 5:22 PM CDT 10/15/2024 5:42 PM CDT Narrative [facility] - 10/20/2024 7:01 AM CDT From a [...] performance characteristics have been verified by the [facility] Microbiology Laboratory. For questions about this culture, contact the Microbiology Laboratory at [phone]. Interpretive data was last revised on 24. Candi Rincon MD LAB MICROBIOLOGY - GENERAL ORDERABLES Final Result [facility] [place] [address] * Blood culture Blood Peripheral (10/15/2024 5:22 PM CDT) Report Final Report: No growth Blood (Peripheral) 10/15/2024 5:22 PM CDT 10/15/2024 5:41 PM CDT Amy [facility] - 10/20/2024 7:01 AM CDT Draw [...] performance characteristics have been verified by the [facility] Microbiology Laboratory. For questions about this culture, contact the Microbiology Laboratory at [phone]. Interpretive data was last revised on 24. Candi Rincno MD LAB MICROBIOLOGY - GENERAL ORDERABLES Final Result [facility] Department [place] [address] * (ABNORMAL) Comprehensive metabolic panel (10/15/2024 5:22 PM CDT) Sodium 134(L) 135 - 145 mmol/L Potassium, pl 4.2 3.3 - 4.9 mmol/L [facility] Chloride 98 97 - 110 mmol/L [facility] CO2 26 22 - 32 mmol/L [facility] Anion gap 10 2 - 15 mmol/L [facility] BUN 33(H) 6 - 25 mg/dL [facility] Creatinine 0.91 0.80 - 1.30 mg/dL [facility] Glucose 230(H) 70 - 199 mg/dL [facility] Comment: Interpretive Data Fasting glucose >/= 126 [...] 2022. Calcium 9.2 8.5 - 10.3 mg/dL [facility] Bilirubin, total 0.8 0.1 - 1.2 mg/dL [facility] Protein, pl 7.3 6.5 - 8.5 g/dL [facility] Albumin 3.5 3.5 - 5.0 g/dL [facility] Alk phos 361(H) 40 - 130 Units/L [facility] ALT 41 7 - 55 Units/L [facility] AST 55(H) 10 - 50 Units/L [facility] Blood 10/15/2024 5:22 PM CDT 10/15/2024 5:43 PM CDT us Candi Rincon MD LAB BLOOD ORDERA BLES Final Result [facility] [place] [address] * [place] ERCP (10/15/2024 1:41 PM CDT) [...] 10/15/2024 12:47 PM Admit Type: Outpatient Room: [facility] Date of : 1950 Instrument Name: [...] A biliary stent was visible on the zinc chloride operator film. The esophagus was successfully intubated under [...] sec INR 1.18 0.90 - 1.20 [facility] Comment: Interpretive data Oral anticoagulant therapeutic ranges: Venous thromboembolism prophylaxis or treatment: 2.0-3.0 CARDIOLOGY Standard range: 2.0-3.0 High-intensity range: 2.5-3.5 Refer to indication-specific guidelines for appropriate target ranges for prosthetic heart valve replacement. Current interpretive data was last revised on 2019. Blood 10/15/2024 11:3 7 AM CDT 10/15/2024 11:37 AM CDT us Chris Holcomb MD LAB BLOOD ORDERABLES Final Result [facility] [address] Department [place] [address] * CT Chest Abdomen Pelvis W Contrast [...] chest. Electronically signed by: Cheri Craig M.D. [facility] Gabriel Posey MD IM CT PROCEDURES Final [...] was last reviewed 2021. Testing performed by: [facility], [address] [place] [address] Blood 10/07/2024 9:11 AM CDT 10/07/2024 9:57 AM CDT us Agustina Li MD PhD LAB BLOOD ORDERABLES Final Result [facility] [address] Department of Laboratories [place] [id number] * (ABNORMAL) Differential, auto (10/07/2024 9:11 AM CDT) Neutrophil abs 6.76(H) 1.50 - 6.50 K/cumm Comment:Testing performed by : [facility], [facility], [address] [place] [address] Imm gran abs 0.06 0.00 - 0.10 K/cumm [facility] Comment:Testing performed by : [facility] [address], [address] [place] [address] Lymphocyte abs 0.76(L) 0.80 - 3.30 K/cumm [facility] Comment:Testing performed by : [facility], [facility], [address] [place] [address] Monocyte abs 0.82(H) 0.20 - 0.80 K/cumm [facility] Comment:Testing performed by : [facility], [facility], [address] [place] [address] Eosinophil abs 0.04 0.00 - 0.50 K/cumm [facility] Comment:Testing performed by : [facility], [facility], [address] [place] [address] Basophil abs 0.04 0.00 - 0.10 K/cumm CERNER BJW[facility] Comment:Testing performed by : [facility], [facility], [address] [place] [address] Neutrophil pct 79.6 % CERNER BJW[facility] Comment: Interpretive Data Percent cell count reference ranges are not reported, since discordance with absolute values may lead to misinterpretation of CBC data. Current Interpretive Data was last revised on 2017. Testing performed by: [facility], [facility], [address] [place] [address] Imm gran pct 0.7 % CERNER BJW[facility] Comment: Interpretive Data Percent cell count reference ranges are not reported, since discordance with absolute values may lead to misinterpretation of CBC data. Current Interpretive Data was last revised on 2017. Testing performed by: [facility], [facility], [address] [place] [address] Lymphocyte pct 9.0 % CERNER B[facility] Comment: Interpretive Data Percent cell count reference ranges are not reported, since discordance with absolute values may lead to misinterpretation of CBC data. Current Interpretive Data was last revised on 2017. Testing performed by: [facility], [facility], [address] [place] [address] Monocyte pct 9.7 % CERNER BJW[facility] Comment: Interpretive Data Percent cell count reference ranges are not reported, since discordance with absolute values may lead to misinterpretation of CBC data. Current Interpretive Data was last revised on 2017. Testing performed by: [facility], [facility], [address] [place] [address] Eosinophil pct 0.5 % STAN STAPLETON Comment: Interpretive Data Percent cell count reference ranges are not reported, since discordance with absolute values may lead to misinterpretation of CBC data. Current Interpretive Data was last revised on 2017. Testing performed by: [facility] 2, [address] [place] [address] Basophil pct 0.5 % STAN STAPLETON Comment: Interpretive Data Percent cell count reference ranges are not reported, since discordance with absolute values may lead to misinterpretation of CBC data. Current Interpretive Data was last revised on 2017. Testing performed by: [place] [address], [address] [place] [address] Blood 10/07/2024 9:11 AM CDT 10/07/2024 9:13 AM CDT us Agustina Li MD PhD LAB BLOOD ORDERABLES Final Result [facility] [address] [facility] Department [place] [address] * (ABNORMAL) CBC with auto differential (10/07/2024 9:11 AM CDT) WBC 8.48 3.80 - 9.90 K/cumm Comment:Testing performed by : [facility] 2, [address] [place] [address] Hgb 10.4(L) 13.0 - 17.5 g/dL STAN STAPLETON Comment:Testing performed by : [facility] 2, [address] [place] [address] Hct 32.4(L) 38.9 - 50.3 % STAN STAPLETON Comment:Testing performed by : [facility] 2, [address] [place] [address] Plt 212 150 - 400 K/cumm STAN STAPLETON Comment:Testing performed by : [facility] 2, [address] [place] [address] MPV 9.5 9.1 - 12.3 fL CERNER BJWCH Comment:Testing performed by : [place] [address], [address] [place] [address] RBC 3.25(L) 4.30 - 5.80 M/cumm CERNER BJWCH Comment:Testing performed by : [place] [address], [place] [address] MCV 99.7(H) 81.3 - 96.4 fL CERNER BJWCH Comment:Testing performed by : [place] [address], [place] [address] MCH 32.0 27.1 - 33.3 pg CERNER BJWCH Comment:Testing performed by : [place] [address] [place] [address] MCHC 32.1(L) 32.3 - 35.7 g/dL CERNER BJWCH Comment:Testing performed by : [place] [address] [place] [address] RDW CV 16.2(H) 11.1 - 14.9 % CERNER BJWCH Comment:Testing performed by : [place] [address] [place] [address] RDW SD 59.5(H) 35.7 - 48.1 fL CERNER BJWCH Comment:Testing performed by : [address] [place] [address] ANC Prelim 6.76(H) 1.50 - 6.50 K/cumm CERNER BJWCH Comment: Interpretive Data The rapid ANC is a preliminary automated count and may vary from the final ANC (Neut Abs) reported in the WBC differential that follows. Current interpretive data was last revised 2024. Testing performed by: [place] [address] [place] [address] Blood 10/07/2024 9:11 AM CDT 10/07/2024 9:13 AM CDT Agustina Li MD PhD LAB BLOOD ORDERABLES Final Result Performing Organization Address [facility] de Phone Number STAN [facility] [address] [facility]. [facility] [place] [address] * (ABNORMAL) Cancer antigen 19-9 (10/07/2024 9:11 AM CDT) CA 19-9 ag 227.0(H) 0.0 - 35.0 units/mL Comment: Interpretive Data The Dereck CA 19-9 assay procedure was used. Results from different manufacturers or methods may not be comparable. Serial testing should be performed using the same method. Testing performed by: [facility], [address] [place] [address]., [address] Blood 10/07/2024 9:11 AM CDT 10/07/2024 10:24 AM CDT Agustina Li MD PhD LAB BLOOD ORDERABLES Final Result Performing Organization Address [facility] de Phone Number [facility] [address] [facility]. [facility] [place] [address] * (ABNORMAL) Protime-INR (10/07/2024 9:11 AM CDT) PT 16.4(H) 9.7 - 13.0 sec Comment:Testing performed by : [facility], [address] [place] [address], [place] [address] INR 1.51(H) 0.90 - 1.20 [facility] Comment: Interpretive data Oral anticoagulant therapeutic ranges: Venous thromboembolism prophylaxis or treatment: 2.0-3.0 CARDIOLOGY Standard range: 2.0-3.0 High-intensity range: 2.5-3.5 Refer to indication-specific guidelines for appropriate target ranges for prosthetic heart valve replacement. Current interpretive data was last revised on 2019. Testing performed by: [facility], [address] [address] Blood 10/07/2024 9:11 AM CDT 10/07/2024 9:38 AM CDT us Agustina Li MD PhD LAB BLOOD ORDERABLES Final Result [facility] [address] Department [place] [address] * (ABNORMAL) Comprehensive metabolic panel (10/07/2024 9:11 AM CDT) Sodium 131(L) 135 - 145 mmol/L Comment:Testing performed by : [facility], [address] [place] [address] Potassium, pl 4.1 3.3 - 4.9 mmol/L CERNER BJWCH Comment:Testing performed by : [facility], [address] [place] [address] Chloride 96(L) 97 - 110 mmol/L CERNER BJWCH Comment:Testing performed by : [facility], [address], [place] [address] CO2 22 22 - 32 mmol/L CERNER BJWCH Comment:Testing performed by : [facility], [address] [place] [address] Anion gap 13 2 - 15 mmol/L CERNER BJWCH Comment:Testing performed by : [facility], [address] [place] [address] BUN 33(H) 6 - 25 mg/dL CERNER BJWCH Comment:Testing performed by : [facility], [address], [place] [address] Creatinine 0.90 0.80 - 1.30 mg/dL CERNER BJWCH Comment:Testing performed by : [facility], [address], [place] [address] Glucose 171 70 - 199 mg/dL CERNER [...] was last revised 2022. Testing performed by: [facility], [address], [place] [address] Calcium 9.0 8.5 - 10.3 mg/dL CERNER BJWCH Comment:Testing performed by : [facility], [address], [place] [address] Bilirubin, total 0.5 0.1 - 1.2 mg/dL CERNER BJWCH Comment:Testing performed by : [facility], [address], [place] [address] Protein, pl 7.4 6.5 - 8.5 g/dL CERNER BJWCH Comment:Testing performed by : [facility], [address], [place] [address] Albumin 3.9 3.5 - 5.0 g/dL CERNER BJWCH Comment:Testing performed by : [facility], [address], [place] [address] Alk phos 423(H) 40 - 130 Units/L CERNER BJWCH Comment:Testing performed by : [facility], [address], [place] [address] ALT 35 7 - 55 Units/L CERNER BJWCH Comment:Testing performed by : [facility], [address], [place] [address] AST 37 10 - 50 Units/L CERNER BJWCH Comment:Testing performed by : [facility], [address], [place] [address] Blood 10/07/2024 9:11 AM CDT 10/07/2024 9:38 AM CDT Agustina Li MD PhD LAB BLOOD ORDERABLES Edited Result - Final [facility] [address] [facility] of Laboratories [place], [place] [id number] * (ABNORMAL) Protime-INR (09/30/2024 2:30 PM CDT) INR 1.3(H) [facility] Comment: Reference Range 0.9-1.1 Moderate-intensity Warfarin Therapy 2.0-3.0 Higher-intensity Warfarin Therapy 3.0-4.0 PT 13.7(H) 9.0 - 11.5 sec [facility] Comment: For additional information, please refer to http://[employer].Leaky/faq/SIF977 (This link is being provided for informational/ educational purposes only.) Blood 09/30/2024 2:30 PM CDT 09/30/2024 2:32 PM CDT Narrative [facility] - 10/01/2024 12:17 AM CDT FASTING:NO FASTING: NO us Chris Hart MD LAB BLOOD ORDERABLES Final Result Performing Organization Address City/[facility]/ZIP Co de Phone Number [facility] [address] [place] [address] * (ABNORMAL) Protime-INR (09/23/2024 11:21 AM CDT) INR 1.3(H) [facility] Comment: Reference Range 0.9-1.1 Moderate-intensity Warfarin Therapy 2.0-3.0 Higher-intensity Warfarin Therapy 3.0-4.0 PT 14.0(H) 9.0 - 11.5 sec [facility] Comment: For additional information, please refer to http://[employer].Leaky/faq/ETT793 (This link is being provided for informational/ educational purposes only.) Blood 09/23/2024 11:2 1 AM CDT 09/23/2024 11:21 AM CDT us Chris Hart MD LAB BLOOD ORDERABLES Final Result Performing Organization Address City/[facility]/ZIP Co de Phone Number [facility] [address] [place] [address] * eGFR (09/16/2024 8:08 AM CDT) eGFR [...] was last reviewed 2021. Testing performed by: [facility], [address] [facility], [place] [address] Blood 09/16/2024 8:08 AM CDT 09/16/2024 8:48 AM CDT us Gorge Vaughan MD PhD LAB BLOOD ORDERABLES Final Result [facility] [address] [facility]. Department [place] [address] * (ABNORMAL) Differential, auto (09/16/2024 8:08 AM CDT) Neutrophil abs 5.67 1.50 - 6.50 K/cumm Comment:Testing performed by : [facility], [facility], [address] [place] [address] Imm gran abs 0.15(H) 0.00 - 0.10 K/cumm CERNER BJWCH Comment:Testing performed by : [facility] 2, [address] [place] [address] Lymphocyte abs 0.47(L) 0.80 - 3.30 K/cumm CERNER BJWCH Comment:Testing performed by : [place] [address], [address] [place] [address] Monocyte abs 0.64 0.20 - 0.80 K/cumm CERNER BJWCH Comment:Testing performed by : [place] [address] [place] [address] Eosinophil abs 0.03 0.00 - 0.50 K/cumm CERNER BJWCH Comment:Testing performed by : [place] [address] [place] [address] Basophil abs 0.01 0.00 - 0.10 K/cumm CERNER BJWCH Comment:Testing performed by : [place] [address] [place] [address] Neutrophil pct 81.4 % CERNER BJWCH Comment: Interpretive Data Percent cell count reference ranges are not reported, since discordance with absolute values may lead to misinterpretation of CBC data. Current Interpretive Data was last revised on 2017. Testing performed by: [place] [address] [place] [address] Imm gran pct 2.2 % CERNER BJWCH Comment: Interpretive Data Percent cell count reference ranges are not reported, since discordance with absolute values may lead to misinterpretation of CBC data. Current Interpretive Data was last revised on 2017. Testing performed by: [address] [place] [address] Lymphocyte pct 6.7 % CERNER BJWCH Comment: Interpretive Data Percent cell count reference ranges are not reported, since discordance with absolute values may lead to misinterpretation of CBC data. Current Interpretive Data was last revised on 2017. Testing performed by: [facility], [facility], [address] [place] [address] Monocyte pct 9.2 % STAN STAPLETON Comment: Interpretive Data Percent cell count reference ranges are not reported, since discordance with absolute values may lead to misinterpretation of CBC data. Current Interpretive Data was last revised on 2017. Testing performed by: [facility], [facility], [address] [place] [address] Eosinophil pct 0.4 % STAN STAPLETON Comment: Interpretive Data Percent cell count reference ranges are not reported, since discordance with absolute values may lead to misinterpretation of CBC data. Current Interpretive Data was last revised on 2017. Testing performed by: [facility], [facility], [address] [place] [address] Basophil pct 0.1 % STAN STAPLETON Comment: Interpretive Data Percent cell count reference ranges are not reported, since discordance with absolute values may lead to misinterpretation of CBC data. Current Interpretive Data was last revised on 2017. Testing performed by: [facility] 2, [address] [place] [address] Blood 09/16/2024 8:08 AM CDT 09/16/2024 8:17 AM CDT us Gorge Vaughan MD PhD LAB BLOOD ORDERABLES Final Result [facility]AN [facility] [address] [facility]. [place] [address] * (ABNORMAL) CBC with auto differential (09/16/2024 8:08 AM CDT) WBC 6.97 3.80 - 9.90 K/cumm Comment:Testing performed by : [facility] 2, [address] [place] [address] Hgb 8.4(L) 13.0 - 17.5 g/dL CERNER BJWCH Comment:Testing performed by : [facility], [facility], [address], [place] [address] Hct 25.2(L) 38.9 - 50.3 % CERNER BJWCH Comment:Testing performed by : [facility] 2, [address], [place] [address] Plt 102(L) 150 - 400 K/cumm CERNER BJWCH Comment:Testing performed by : [place] [address], [address], [place] [address] MPV 10.1 9.1 - 12.3 fL CERNER BJWCH Comment:Testing performed by : [place] [address], [address] [place] [address] RBC 2.39(L) 4.30 - 5.80 M/cumm CERNER BJWCH Comment:Testing performed by : [place] [address], [address], [place] [address] MCV 105.4(H) 81.3 - 96.4 fL CERNER BJWCH Comment:Testing performed by : [place] [address], [address] [place] [address] MCH 35.1(H) 27.1 - 33.3 pg CERNER BJWCH Comment:Testing performed by : [place] [address], [address], [place] [address] MCHC 33.3 32.3 - 35.7 g/dL CERNER BJWCH Comment:Testing performed by : [place] [address], [address], [place] [address] RDW CV 17.0(H) 11.1 - 14.9 % CERNER BJWCH Comment:Testing performed by : [facility] 2, [address], [place] [address] RDW SD 66.4(H) 35.7 - 48.1 fL CERNER BJWCH Comment:Testing performed by : [facility], [facility], [address] [place] [address] ANC Prelim 5.67 1.50 - 6.50 K/cumm STAN STAPLETON Comment: Interpretive Data The rapid ANC is a preliminary automated count and may vary from the final ANC (Neut Abs) reported in the WBC differential that follows. Current interpretive data was last revised 2024. Testing performed by: [facility], [facility], [address] [place] [address] Blood 09/16/2024 8:08 AM CDT 09/16/2024 8:17 AM CDT Gorge Vaughan MD PhD LAB BLOOD ORDERABLES Final Result Performing Organization Address [facility] Co de Phone Number [facility] [address] [address]. [facility] [place] [address] * (ABNORMAL) Cancer antigen 19-9 (09/16/2024 8:08 AM CDT) CA 19-9 ag 152.0(H) 0.0 - 35.0 units/mL Comment: Interpretive Data The Dereck CA 19-9 assay procedure was used. Results from different manufacturers or methods may not be comparable. Serial testing should be performed using the same method. Testing performed by: [facility], [address] [place] [address], [place]., [address] Blood 09/16/2024 8:08 AM CDT 09/16/2024 1:03 PM CDT Gorge Vaughan MD PhD LAB BLOOD ORDERABLES Final Result Performing Organization Address City/[facility]/ZIP Co de Phone Number [facility] [address] [employer]. [facility] [place] [address] * (ABNORMAL) Protime-INR (09/16/2024 8:08 AM CDT) PT 16.8(H) 9.7 - 13.0 sec Comment:Testing performed by : [facility], [address] [place] [address] INR 1.54(H) 0.90 - 1.20 STAN STAPLETON Comment: Interpretive data Oral anticoagulant therapeutic ranges: Venous thromboembolism prophylaxis or treatment: 2.0-3.0 CARDIOLOGY Standard range: 2.0-3.0 High-intensity range: 2.5-3.5 Refer to indication-specific guidelines for appropriate target ranges for prosthetic heart valve replacement. Current interpretive data was last revised on 2019. Testing performed by: [facility], [address] [place] [address] Blood 09/16/2024 8:08 AM CDT 09/16/2024 8:48 AM CDT us Chris Hart MD LAB BLOOD ORDERABLES Final Result [facility] [address] [place] [address] * (ABNORMAL) Comprehensive metabolic panel (09/16/2024 8:08 AM CDT) Sodium 134(L) 135 - 145 mmol/L Comment:Testing performed by : [facility], [address], [place] [address] Potassium, pl 3.5 3.3 - 4.9 mmol/L STAN STAPLETON Comment:Testing performed by : [facility], [address] [place] [address] Chloride 100 97 - 110 mmol/L STAN STAPLETON Comment:Testing performed by : [facility], [address] [place] [address] CO2 23 22 - 32 mmol/L STAN STAPLETON Comment:Testing performed by : [facility], [address] [place] [address] Anion gap 11 2 - 15 mmol/L STAN STAPLETON Comment:Testing performed by : [facility], [address], [place] [address] BUN 22 6 - 25 mg/dL CERNER BJWCH Comment:Testing performed by : [facility], [address], [place] [address] Creatinine 0.70(L) 0.80 - 1.30 mg/dL CERNER BJWCH Comment:Testing performed by : [facility], [address], [place] [address] Glucose 127 70 - 199 mg/dL CERNER [...] was last revised 2022. Testing performed by: [facility], [address], [place] [address] Calcium 8.3(L) 8.5 - 10.3 mg/dL CERNER BJWCH Comment:Testing performed by : [facility], [address], [place] [address] Bilirubin, total 0.6 0.1 - 1.2 mg/dL CERNER BJWCH Comment:Testing performed by : [facility], [address], [place] [address] Protein, pl 5.8(L) 6.5 - 8.5 g/dL CERNER BJWCH Comment:Testing performed by : [facility], [address], [place] [address] Albumin 2.9(L) 3.5 - 5.0 g/dL CERNER BJWCH Comment:Testing performed by : [facility], [address], [place] [address] Alk phos 388(H) 40 - 130 Units/L CERNER BJWCH Comment:Testing performed by : [facility], [address], [place] [address] ALT 36 7 - 55 Units/L [facility] Comment:Testing performed by : [facility], [address], [place] [address] AST 46 10 - 50 Units/L STAN ALVAREZ Comment:Testing performed by : [facility], [address] [place] [address] Blood 09/16/2024 8:08 AM CDT 09/16/2024 8:48 AM CDT Gorge Vaughan MD PhD LAB BLOOD ORDERABLES Final Result Performing Organization Address City/[facility]/ZIP Co de Phone Number [facility] [address] [place] [address] * COPY(IES) SENT TO: (09/11/2024 10:40 AM CDT) COPY(IES) SENT TO: [facility] Comment: SITEMAN - COPY TO ACCOUNT [address] [facility] [place] [address] 09/11/2024 10:4 0 AM CDT 09/11/2024 10:40 [...] SMEAR WAS REVIEWED BY: MIGUEL BURNETT M.D. [employer] [id number] [place] [id number] [facility] ID NO. [id number] Blood 09/11/2024 10:4 0 AM CDT 09/11/2024 10:40 AM CDT Narrative [facility] - 09/15/2024 3:41 PM CDT FASTING:NO FASTING: NO Result [facility] Agustina Li MD PhD LAB BLOOD ORDERABLES Final Result Performing Organization Address [facility] de Phone Number [id number] [address] [place] [address] * (ABNORMAL) Protime-INR (09/11/2024 10:40 AM CDT) INR 1.6(H) [facility] [place] Comment: Reference Range 0.9-1.1 Moderate-intensity Warfarin Therapy 2.0-3.0 Higher-intensity Warfarin Therapy 3.0-4.0 PT 17.0(H) 9.0 - 11.5 sec [facility] Comment: For additional information, please refer to http://education.Leaky/faq/AQT539 (This link is being provided for informational/ educational purposes only.) Blood 09/11/2024 10:4 0 AM CDT 09/11/2024 10:40 AM CDT Narrative [employer] - 09/15/2024 3:41 PM CDT FASTING:NO FASTING: NO Result [facility] Agustina Li MD PhD LAB BLOOD ORDERABLES Final Result Performing Organization Address [facility] de Phone Number [id number] SystemsRe[facility] [address] [place] [address] * (ABNORMAL) Comprehensive metabolic panel (09/11/2024 10:40 AM CDT) Glucose 105 65 - 139 mg/dL [facility] [place] Comment: Non-fasting reference interval BUN 22 7 - 25 mg/dL [facility] [place] Creatinine 0.69(L) 0.70 - 1.28 mg/dL [facility] [place] eGFR 97 > OR = 60 [...] ratio 1.1 1.0 - 2.5 (calc) [facility] Bilirubin, total 0.8 0.2 - 1.2 mg/dL [facility] Alk phos 204(H) 35 - 144 U/L [facility] AST 40(H) 10 - 35 U/L [facility] ALT (SGPT) 25 9 - 46 U/L [facility] Blood 09/11/2024 10:4 0 AM CDT 09/11/2024 10:40 AM CDT Narrative [facility] - 09/15/2024 3:41 PM CDT FASTING:NO FASTING: NO us Agustina Li MD PhD LAB BLOOD ORDERABLES Final Result [facility]Pres[facility] HospitalL[facility] [address] [place] [address] * SCAN - LABS (09/11/2024) us Provider [...] was last reviewed 2021. Testing performed by: [facility], [address] [place] [address] Blood 09/09/2024 7:32 AM CDT 09/09/2024 8:19 AM CDT us Gorge Vaughan MD PhD LAB BLOOD ORDERABLES Final Result [facility] [address]. Department of Laboratories [place], [place] [id number] * (ABNORMAL) Differential, auto (09/09/2024 7:32 AM CDT) Neutrophil abs 4.58 1.50 - 6.50 K/cumm Comment:Testing performed by : [facility], [facility], [address] [place] [address] Imm gran abs 0.05 0.00 - 0.10 K/cumm STAN STAPLETON Comment:Testing performed by : [facility], [facility], [address] [place] [address] Lymphocyte abs 0.25(L) 0.80 - 3.30 K/cumm STAN STAPLETON Comment:Testing performed by : [facility], [facility], [address] [place] [address] Monocyte abs 0.51 0.20 - 0.80 K/cumm CERNER BJWCH Comment:Testing performed by : [facility], [facility], [address] [place] [address] Eosinophil abs 0.00 0.00 - 0.50 K/cumm CERNER BJWCH Comment:Testing performed by : [facility], [facility], [address] [place] [address] Basophil abs 0.00 0.00 - 0.10 K/cumm CERNER BJWCH Comment:Testing performed by : [facility], [facility], [address] [place] [address] Neutrophil pct 85.0 % CERNER BJWCH Comment: Interpretive Data Percent cell count reference ranges are not reported, since discordance with absolute values may lead to misinterpretation of CBC data. Current Interpretive Data was last revised on 2017. Testing performed by: [facility], [facility] [place] [facility], [address] [place] [address] Imm gran pct 0.9 % CERNER BJWCH Comment: Interpretive Data Percent cell count reference ranges are not reported, since discordance with absolute values may lead to misinterpretation of CBC data. Current Interpretive Data was last revised on 2017. Testing performed by: [facility], [address] [place] [address] Lymphocyte pct 4.6 % CERNER BJWCH Comment: Interpretive Data Percent cell count reference ranges are not reported, since discordance with absolute values may lead to misinterpretation of CBC data. Current Interpretive Data was last revised on 2017. Testing performed by: [facility], [address] [place] [address] Monocyte pct 9.5 % CERNER BJWCH Comment: Interpretive Data Percent cell count reference ranges are not reported, since discordance with absolute values may lead to misinterpretation of CBC data. Current Interpretive Data was last revised on 2017. Testing performed by: [facility], [facility] [place] [facility], [address] [place] [address] Eosinophil pct 0.0 % STAN ALVAREZ Comment: Interpretive Data Percent cell count reference ranges are not reported, since discordance with absolute values may lead to misinterpretation of CBC data. Current Interpretive Data was last revised on 2017. Testing performed by: [facility], [facility] [place] [facility], [address] [place] [address] Basophil pct 0.0 % STAN STAPLETON Comment: Interpretive Data Percent cell count reference ranges are not reported, since discordance with absolute values may lead to misinterpretation of CBC data. Current Interpretive Data was last revised on 2017. Testing performed by: [place] [address] [place] [address] Blood 09/09/2024 7:32 AM CDT 09/09/2024 7:50 AM CDT Gorge Vaughan MD PhD LAB BLOOD ORDERABLES Final Result [facility] [address] [facility] [place] [address] * (ABNORMAL) CBC with auto differential (09/09/2024 7:32 AM CDT) WBC 5.39 3.80 - 9.90 K/cumm Comment:Testing performed by : [facility], [address] [place] [address] Hgb 8.2(L) 13.0 - 17.5 g/dL STAN STAPLETON Comment:Testing performed by : [facility], [address] [place] [address] Hct 24.8(L) 38.9 - 50.3 % STAN STAPLETON Comment:Testing performed by : [facility], [address] [place] [address] Plt 62(L) 150 - 400 K/cumm CERNER BJWCH Comment:Testing performed by : [facility], [facility], [address] [place] [address] MPV 10.4 9.1 - 12.3 fL CERNER BJWCH Comment:Testing performed by : [place] [address], [address] [place] [address] RBC 2.30(L) 4.30 - 5.80 M/cumm CERNER BJWCH Comment:Testing performed by : [place] [address], [address] [place] [address] MCV 107.8(H) 81.3 - 96.4 fL CERNER BJWCH Comment:Testing performed by : [place] [address], [place] [address] MCH 35.7(H) 27.1 - 33.3 pg CERNER BJWCH Comment:Testing performed by : [place] [address] [place] [address] MCHC 33.1 32.3 - 35.7 g/dL CERNER BJWCH Comment:Testing performed by : [place] [address] [place] [address] RDW CV 17.3(H) 11.1 - 14.9 % CERNER BJWCH Comment:Testing performed by : [place] [address] [place] [address] RDW SD 70.0(H) 35.7 - 48.1 fL CERNER BJWCH Comment:Testing performed by : [address] [place] [address] ANC Prelim 4.58 1.50 - 6.50 K/cumm CERNER BJWCH Comment: Interpretive Data The rapid ANC is a preliminary automated count and may vary from the final ANC (Neut Abs) reported in the WBC differential that follows. Current interpretive data was last revised 2024. Testing performed by: [place] [address], [place] [address] Morphologic Screen Results confirmed by manual morphology review. STAN STAPLETON Comment:Testing performed by : [facility], [place], [address] [place] [address] Blood 09/09/2024 7:32 AM CDT 09/09/2024 7:50 AM CDT Gorge Vaughan MD PhD LAB BLOOD ORDERABLES Edited Result - Final Performing Organization Address [facility] de Phone Number STAN BJWCH [address] [facility]. [place] [address] * (ABNORMAL) Cancer antigen 19-9 (09/09/2024 7:32 AM CDT) CA 19-9 ag 95.4(H) 0.0 - 35.0 units/mL Comment: Interpretive Data The Dereck CA 19-9 assay procedure was used. Results from different manufacturers or methods may not be comparable. Serial testing should be performed using the same method. Testing performed by: [facility], [address] [place] [address], [place]., [address] Blood 09/09/2024 7:32 AM CDT 09/09/2024 10:24 AM CDT Gorge Vaughan MD PhD LAB BLOOD ORDERABLES Final Result Performing Organization Address [facility] de Phone Number STAN COREYWCH [address] [facility]. Department [place] [address] * (ABNORMAL) Protime-INR (09/09/2024 7:32 AM CDT) PT 22.0(H) 9.7 - 13.0 sec Comment:Testing performed by : [facility], [address] [place] [address] INR 2.01(H) 0.90 - 1.20 STNA STAPLETON Comment: Interpretive data Oral anticoagulant therapeutic ranges: Venous thromboembolism prophylaxis or treatment: 2.0-3.0 CARDIOLOGY Standard range: 2.0-3.0 High-intensity range: 2.5-3.5 Refer to indication-specific guidelines for appropriate target ranges for prosthetic heart valve replacement. Current interpretive data was last revised on 2019. Testing performed by: [facility], [address] [place] [address] Blood 09/09/2024 7:32 AM CDT 09/09/2024 8:19 AM CDT us Chris Hart MD LAB BLOOD ORDERABLES Final Result [facility] [address] [place] [address] * (ABNORMAL) Comprehensive metabolic panel (09/09/2024 7:32 AM CDT) Sodium 132(L) 135 - 145 mmol/L Comment:Testing performed by : [facility], [address] [place] [address] Potassium, pl 3.6 3.3 - 4.9 mmol/L CERNER BJW Comment:Testing performed by : [facility], [address] [place] [address] Chloride 96(L) 97 - 110 mmol/L CERKERI BJW Comment:Testing performed by : [facility], [address] [place] [address] CO2 27 22 - 32 mmol/L CERNER BJWCH Comment:Testing performed by : [facility], [address] [place] [address] Anion gap 9 2 - 15 mmol/L CERNER BJWCH Comment:Testing performed by : [facility], [address] [place] [address] BUN 17 6 - 25 mg/dL CERNER BJWCH Comment:Testing performed by : [facility], [address] [place] [address] Creatinine 0.80 0.80 - 1.30 mg/dL CERNER BJWCH Comment:Testing performed by : [facility], [address], [place] [address] Glucose 117 70 - 199 mg/dL CERNER [...] was last revised 2022. Testing performed by: [facility], [address], [place] [address] Calcium 7.7(L) 8.5 - 10.3 mg/dL CERNER BJWCH Comment:Testing performed by : [facility], [address], [place] [address] Bilirubin, total 0.7 0.1 - 1.2 mg/dL CERNER BJWCH Comment:Testing performed by : [facility], [address], [place] [address] Protein, pl 5.1(L) 6.5 - 8.5 g/dL CERNER BJWCH Comment:Testing performed by : [facility], [address], [place] [address] Albumin 2.6(L) 3.5 - 5.0 g/dL CERNER BJWCH Comment:Testing performed by : [facility], [address], [place] [address] Alk phos 227(H) 40 - 130 Units/L CERNER BJWCH Comment:Testing performed by : [facility], [address], [place] [address] ALT 28 7 - 55 Units/L CERNER BJWCH Comment:Testing performed by : [facility], [address], [place] [address] AST 50 10 - 50 Units/L CERNER BJWCH Comment:Testing performed by : [facility], [address] [facility], [place] [address] Blood 09/09/2024 7:32 AM CDT 09/09/2024 8:19 AM CDT Gorge aVughan MD PhD LAB BLOOD ORDERABLES Edited Result - Final Performing Organization Address City/[facility]/ZIP Co de Phone Number STAN ALVAREZ [address] [address] [facility]. [place] [address] * ECG 12 lead (09/07/2024 11:34 AM CDT) Pathologist [facility] Ventricular Rate EKG/Min 65 BPM [facility] Atrial Rate 65 BPM [facility] UT-Interval (MSEC) 206 ms [facility] QRS-Interval (MSEC) 96 ms [facility] QT-Interval (MSEC) 506 ms [facility] QTc 526 ms [facility] P Jackson 18 degrees [facility] R Jackson -27 degrees [facility] T Jackson 241 degrees [facility] Diagnosis Atrial-paced rhythm Minimal voltage criteria for LVH, may be normal variant ( R in aVL ) T wave abnormality, consider inferior ischemia T wave abnormality, consider anterolateral ischemia Prolonged QT Abnormal ECG Confirmed by Georges Smith MD ([id number]) on 09/08/2024 4:32:43 PM [facility] 09/07/2024 11:3 4 AM CDT 09/08/2024 4:32 PM CDT us Sharron Amador MD ECG ORDERABLES Final Result Performing Organization Address City/[facility]/ZIP Co de Phone Number [facility] * XR Chest 1 View (09/07/2024 [...] CDT) Date Notified [id number] Time Notified 601 [facility] TestName pO2 Art and O2 Sat Art (Noni) [facility] Called/Read Back Sravani PIERCE [facility] Credentials RN [facility] Called By SB [facility] Blood 09/07/2024 5:39 AM CDT 09/07/2024 5:49 AM CDT us Perla Roldan MD LAB BLOOD ORDERABLES F inal Result [facility] Department [place] [address] * (ABNORMAL) Blood gas, arterial (09/07/2024 5:39 AM CDT) pH, Art 7.45 7.35 - 7.45 PCO2, Arterial 43 35 - 45 mmHg [facility] PO2, Arterial 36(C) 83 - 108 mmHg [facility] Comment:Repeated and verifie d. HCO3 Art (Calculated) 31(H) 20 - 30 mmol/L [facility] BE, art 6 mmol/L [facility] Comment: Interpretive Data No Reference Range Established Current Interpretive Data was last revised on 2017 O2 Sat Art (Measured) 64(C) 90 - 95 % [facility] Comment:Repeated and verifie d. Blood 09/07/2024 5:39 AM CDT 09/07/2024 5:49 AM CDT us Perla Roldan MD LAB BLOOD ORDERABLES F inal Result [facility] Department [place] [address] * eGFR (09/07/2024 2:43 AM CDT) eGFR [...] LAB BLOOD ORDERABLES Lila dawson Result STAN [facility] [place] [address] * (ABNORMAL) Differential, auto (09/07/2024 2:43 AM CDT) Neutrophil abs 5.50 1.50 - 6.50 K/cumm Imm gran abs 0.04 0.00 - 0.10 K/cumm [facility]ER [facility] Lymphocyte abs 0.21(L) 0.80 - 3.30 K/cumm [facility] Monocyte abs 0.42 0.20 - 0.80 K/cumm [facility] Eosinophil abs 0.01 0.00 - 0.50 K/cumm [facility] Basophil abs 0.01 0.00 - 0.10 K/cumm [facility] Neutrophil pct 88.8 % [facility] Comment: Interpretive Data Percent cell count reference ranges are not reported, since discordance with absolute values may lead to misinterpretation of CBC data. Current Interpretive Data was last revised on 2017. Imm gran pct 0.6 % [facility] Comment: Interpretive Data Percent cell count reference ranges are not reported, since discordance with absolute values may lead to misinterpretation of CBC data. Current Interpretive Data was last revised on 2017. Lymphocyte pct 3.4 % [facility] Comment: Interpretive Data Percent cell count reference ranges are not reported, since discordance with absolute values may lead to misinterpretation of CBC data. Current Interpretive Data was last revised on 2017. Monocyte pct 6.8 % CERNER [facility] Comment: Interpretive Data Percent cell count reference ranges are not reported, since discordance with absolute values may lead to misinterpretation of CBC data. Current Interpretive Data was last revised on 2017. Eosinophil pct 0.2 % [facility] Comment: Interpretive Data Percent cell count reference ranges are not reported, since discordance with absolute values may lead to misinterpretation of CBC data. Current Interpretive Data was last revised on 2017. Basophil pct 0.2 % CERNER [facility] Comment: Interpretive Data Percent cell count reference ranges are not reported, since discordance with absolute values may lead to misinterpretation of CBC data. Current Interpretive Data was last revised on 2017. Blood 09/07/2024 2:43 AM CDT 09/07/2024 4:42 AM CDT Smith Sawyer MD LAB BLOOD ORDERABLES Lila l Result Performing Organization Address City/[facility] Co de Phone Number [facility] Department [place] [address] * Critical Result Callback Chemistry (09/07/2024 2:43 AM CDT) Date Notified [id number] Time Notified 454 [facility] TestName p O2 Art [facility] Called/Read Back Olivier Campos [facility] Credentials RN [facility] Called By LUKAS [facility] Blood 09/07/2024 2:43 AM CDT 09/07/2024 4:41 AM CDT us Perla Roldan MD LAB BLOOD ORDERABLES F inal Result Performing Organization Address [facility] de Phone Number [facility] Department [place] [address] * (ABNORMAL) CBC with auto differential (09/07/2024 2:43 AM CDT) WBC 6.19 3.80 - 9.90 K/cumm Hgb 10.1(L) 13.0 - 17.5 g/dL [facility] Hct 30.0(L) 38.9 - 50.3 % [facility] Plt 57(L) 150 - 400 K/cumm [facility] MPV 11.7 9.1 - 12.3 fL [facility] RBC 2.80(L) 4.30 - 5.80 M/cumm [facility] MCV 107.1(H) 81.3 - 96.4 fL [facility] MCH 36.1(H) 27.1 - 33.3 pg [facility] MCHC 33.7 32.3 - 35.7 g/dL [facility] RDW CV 18.8(H) 11.1 - 14.9 % [facility] RDW SD 73.8(H) 35.7 - 48.1 fL [facility] NRBC abs 0.00 0.00 - 0.01 K/cumm [facility] Blood 09/07/2024 2:43 AM CDT 09/07/2024 4:42 AM CDT Smith Sawyer MD LAB BLOOD ORDERABLES Lila l Result Performing Organization Address [facility] de Phone Number [facility] [place] [address] * aPTT (09/07/2024 2:43 AM CDT) aPTT [...] ORDERABLES Lila l Result Performing Organization Address [facility] de Phone Number [facility] Department [place] [address] * (ABNORMAL) Protime-INR (09/07/2024 2:43 AM CDT) PT 28.4(H) 9.7 - 13.0 sec INR 2.58(H) 0.90 - 1.20 [facility] Comment: Interpretive data Oral anticoagulant therapeutic ranges: Venous thromboembolism prophylaxis or treatment: 2.0-3.0 CARDIOLOGY Standard range: 2.0-3.0 High-intensity range: 2.5-3.5 Refer to indication-specific guidelines for appropriate target ranges for prosthetic heart valve replacement. Current interpretive data was last revised on 2019. Blood 09/07/2024 2:43 AM CDT 09/07/2024 4:40 AM CDT Zuleima Levine MD LAB BLOOD ORDERABLES Lila l Result Performing Organization Address [facility] Co de Phone Number [facility] [place] [address] * Type and screen (09/07/2024 2:43 AM CDT) Minna, indirect Negative ABO Rh A Positive [facility] Blood 09/07/2024 2:43 AM CDT 09/07/2024 4:44 AM CDT Narrative [facility] - 09/07/2024 7:55 AM CDT Has the patient had Daratumumab or Isatuximab in the past 6 months?->Unknown Result [facility] Smith Sawyer MD LAB BLOOD BANK TEST ORDER DEMETRIO Final Result Performing Organization Address [facility] de Phone Number [facility] [place] [address] * Uric acid (09/07/2024 2:43 AM CDT) Pathologist [facility] Uric acid 3.8 3.0 - 8.0 mg/dL Blood 09/07/2024 2:43 AM CDT 09/07/2024 4:42 AM CDT Narrative [facility] - 09/07/2024 5:14 AM CDT Saturday and only. Morning draw. . Smith Sawyer MD LAB BLOOD ORDERABLES Lila l Result Performing Organization Address City/[facility] Co de Phone Number [facility] [place] [address] * Phosphorus (09/07/2024 2:43 AM CDT) Pathologist [facility] Phosphorus, pl 2.9 2.3 - 4.5 mg/dL Blood 09/07/2024 2:43 AM CDT 09/07/2024 4:42 AM CDT Smith Sawyre MD LAB BLOOD ORDERABLES Lila l Result Performing Organization Address [facility] de Phone Number [facility] [place] [address] * (ABNORMAL) Lactate dehydrogenase (LD) (09/07/2024 2:43 AM CDT) [facility] Lactate dehydrogenase (LDH) 371(H) 100 - 250 Units/L Blood 09/07/2024 2:43 AM CDT 09/07/2024 4:42 AM CDT Narrative [facility] - 09/07/2024 5:14 AM CDT Saturday and only. Morning draw. Smith Sawyer MD LAB BLOOD ORDERABLES Lila l Result Performing Organization Address [facility] de Phone Number [facility] [place] [address] * (ABNORMAL) Blood gas, arterial (09/07/2024 2:43 AM CDT) Pathologist [facility] pH, Art 7.45 7.35 - 7.45 PCO2, Arterial 42 35 - 45 mmHg [facility] PO2, Arterial 32(C) 83 - 108 mmHg [facility] Comment:Repeated and verifie d. HCO3 Art (Calculated) 30 20 - 30 mmol/L [facility] BE, art 4 mmol/L [facility] Comment: Interpretive Data No Reference Range Established Current Interpretive Data was last revised on 2017 O2 Sat Art (Measured) 58(C) 90 - 95 % [facility] Comment:Repeated and verifie d. Blood 09/07/2024 2:43 AM CDT 09/07/2024 4:41 AM CDT us Perla Roldan MD LAB BLOOD ORDERABLES F inal Result [facility] [place] [address] * (ABNORMAL) Comprehensive metabolic panel (09/07/2024 2:43 AM CDT) Sodium 136 135 - 145 mmol/L Potassium, pl 3.8 3.3 - 4.9 mmol/L [facility] Chloride 96(L) 97 - 110 mmol/L [facility] CO2 33(H) 22 - 32 mmol/L [facility] Anion gap 7 2 - 15 mmol/L [facility] BUN 15 6 - 25 mg/dL [facility] Creatinine 0.84 0.80 - 1.30 mg/dL [facility] Glucose 116 70 - 199 mg/dL [facility] Comment: Interpretive Data Fasting glucose >/= 126 [...] 2022. Calcium 7.9(L) 8.5 - 10.3 mg/dL [facility] Bilirubin, total 1.4(H) 0.1 - 1.2 mg/dL [facility] Protein, pl 5.4(L) 6.5 - 8.5 g/dL [facility] Albumin 2.4(L) 3.5 - 5.0 g/dL [facility] Alk phos 275(H) 40 - 130 Units/L [facility] ALT 31 7 - 55 Units/L [facility] AST 78(H) 10 - 50 Units/L [facility] Blood 09/07/2024 2:43 AM CDT 09/07/2024 4:42 AM CDT Smith Sawyer MD LAB BLOOD ORDERABLES Lila l Result Performing Organization Address [facility] Co de Phone Number [facility] [place] [address] * eGFR (09/06/2024 12:41 AM CDT) eGFR [...] ORDERABLES Lila l Result Performing Organization Address City/[facility]/ZIP Co de Phone Number [facility] [place] [address] * (ABNORMAL) Differential, auto (09/06/2024 12:41 AM CDT) Neutrophil abs 4.99 1.50 - 6.50 K/cumm Imm gran abs 0.07 0.00 - 0.10 K/cumm [facility] Lymphocyte abs 0.35(L) 0.80 - 3.30 K/cumm [facility] Monocyte abs 0.94(H) 0.20 - 0.80 K/cumm [facility] Eosinophil abs 0.01 0.00 - 0.50 K/cumm [facility] Basophil abs 0.01 0.00 - 0.10 K/cumm [facility] Neutrophil pct 78.2 % [facility] Comment: Interpretive Data Percent cell count reference ranges are not reported, since discordance with absolute values may lead to misinterpretation of CBC data. Current Interpretive Data was last revised on 2017. Imm gran pct 1.1 % [facility] Comment: Interpretive Data Percent cell count reference ranges are not reported, since discordance with absolute values may lead to misinterpretation of CBC data. Current Interpretive Data was last revised on 2017. Lymphocyte pct 5.5 % [facility] Comment: Interpretive Data Percent cell count reference ranges are not reported, since discordance with absolute values may lead to misinterpretation of CBC data. Current Interpretive Data was last revised on 2017. Monocyte pct 14.8 % [facility] Comment: Interpretive Data Percent cell count reference ranges are not reported, since discordance with absolute values may lead to misinterpretation of CBC data. Current Interpretive Data was last revised on 2017. Eosinophil pct 0.2 % [facility] Comment: Interpretive Data Percent cell count reference ranges are not reported, since discordance with absolute values may lead to misinterpretation of CBC data. Current Interpretive Data was last revised on 2017. Basophil pct 0.2 % [facility] Comment: Interpretive Data Percent cell count reference ranges are not reported, since discordance with absolute values may lead to misinterpretation of CBC data. Current Interpretive Data was last revised on 2017. Blood 09/06/2024 12:4 1 AM CDT 09/06/2024 12:55 AM CDT Smith Sawyer MD LAB BLOOD ORDERABLES Lila l Result Performing Organization Address [facility]/ZIP Co de Phone Number [facility] [place] [address] * (ABNORMAL) CBC with auto differential (09/06/2024 12:41 AM CDT) Pathologist [facility] WBC 6.37 3.80 - 9.90 K/cumm Hgb 8.6(L) 13.0 - 17.5 g/dL [facility] Hct 25.3(L) 38.9 - 50.3 % [facility] Plt 61(L) 150 - 400 K/cumm [facility] MPV 11.6 9.1 - 12.3 fL [facility] RBC 2.35(L) 4.30 - 5.80 M/cumm [facility] MCV 107.7(H) 81.3 - 96.4 fL [facility] MCH 36.6(H) 27.1 - 33.3 pg [facility] MCHC 34.0 32.3 - 35.7 g/dL [facility] RDW CV 18.8(H) 11.1 - 14.9 % [facility] RDW SD 74.0(H) 35.7 - 48.1 fL [facility] NRBC abs 0.00 0.00 - 0.01 K/cumm [facility] Blood 09/06/2024 12:4 1 AM CDT 09/06/2024 12:55 AM CDT Smith Sawyer MD LAB BLOOD ORDERABLES Lila l Result Performing Organization Address [facility]/ZIP Co de Phone Number [facility] Department [place] [address] * (ABNORMAL) Protime-INR (09/06/2024 12:41 AM CDT) Pathologist [facility] PT 26.9(H) 9.7 - 13.0 sec INR 2.45(H) 0.90 - 1.20 [facility] Comment: Interpretive data Oral anticoagulant therapeutic ranges: Venous thromboembolism prophylaxis or treatment: 2.0-3.0 CARDIOLOGY Standard range: 2.0-3.0 High-intensity range: 2.5-3.5 Refer to indication-specific guidelines for appropriate target ranges for prosthetic heart valve replacement. Current interpretive data was last revised on 2019. Blood 09/06/2024 12:4 1 AM CDT 09/06/2024 12:58 AM CDT Zuleima Levine MD LAB BLOOD ORDERABLES Lila l Result [facility] Department [place] [address] * Phosphorus (09/06/2024 12:41 AM CDT) Pathologist [facility] Phosphorus, pl 3.2 2.3 - 4.5 mg/dL Blood 09/06/2024 12:4 1 AM CDT 09/06/2024 12:55 AM CDT Smith Sawyer MD LAB BLOOD ORDERABLES Lila l Result Performing Organization Address [facility] Co de Phone Number [facility] [place] [address] * (ABNORMAL) Comprehensive metabolic panel (09/06/2024 12:41 AM CDT) Pathologist [facility] Sodium 135 135 - 145 mmol/L Potassium, pl 3.9 3.3 - 4.9 mmol/L [facility] Chloride 97 97 - 110 mmol/L [facility] CO2 33(H) 22 - 32 mmol/L [facility] Anion gap 5 2 - 15 mmol/L [facility] BUN 14 6 - 25 mg/dL [facility] Creatinine 0.83 0.80 - 1.30 mg/dL [facility] Glucose 98 70 - 199 mg/dL [facility] Comment: Interpretive Data Fasting glucose >/= 126 [...] Calcium 7.7(L) 8.5 - 10.3 mg/dL [facility] Bilirubin, total 0.6 0.1 - 1.2 mg/dL [facility] Protein, pl 5.0(L) 6.5 - 8.5 g/dL [facility] Albumin 2.2(L) 3.5 - 5.0 g/dL [facility] Alk phos 139(H) 40 - 130 Units/L [facility] ALT 20 7 - 55 Units/L [facility] AST 46 10 - 50 Units/L [facility] Blood 09/06/2024 12:4 1 AM CDT 09/06/2024 12:55 AM CDT us Smith Sawyer MD LAB BLOOD ORDERABLES Lila l Result [facility] Department [place] [address] * eGFR (09/05/2024 1:43 AM CDT) eGFR [...] MD LAB BLOOD ORDERABLES Lila dawson Result [facility] [place] [address] * (ABNORMAL) Differential, auto (09/05/2024 1:43 AM CDT) Neutrophil abs 3.92 1.50 - 6.50 K/cumm Imm gran abs 0.04 0.00 - 0.10 K/cumm [facility] Lymphocyte abs 0.28(L) 0.80 - 3.30 K/cumm [facility] Monocyte abs 0.58 0.20 - 0.80 K/cumm [facility] Eosinophil abs 0.00 0.00 - 0.50 K/cumm [facility] Basophil abs 0.00 0.00 - 0.10 K/cumm [facility] Neutrophil pct 81.4 % [facility] Comment: Interpretive Data Percent cell count reference ranges are not reported, since discordance with absolute values may lead to misinterpretation of CBC data. Current Interpretive Data was last revised on 2017. Imm gran pct 0.8 % [facility] Comment: Interpretive Data Percent cell count reference ranges are not reported, since discordance with absolute values may lead to misinterpretation of CBC data. Current Interpretive Data was last revised on 2017. Lymphocyte pct 5.8 % [facility] Comment: Interpretive Data Percent cell count reference ranges are not reported, since discordance with absolute values may lead to misinterpretation of CBC data. Current Interpretive Data was last revised on 2017. Monocyte pct 12.0 % [facility] Comment: Interpretive Data Percent cell count reference ranges are not reported, since discordance with absolute values may lead to misinterpretation of CBC data. Current Interpretive Data was last revised on 2017. Eosinophil pct 0.0 % [facility] Comment: Interpretive Data Percent cell count reference ranges are not reported, since discordance with absolute values may lead to misinterpretation of CBC data. Current Interpretive Data was last revised on 2017. Basophil pct 0.0 % [facility] Comment: Interpretive Data Percent cell count reference ranges are not reported, since discordance with absolute values may lead to misinterpretation of CBC data. Current Interpretive Data was last revised on 2017. Blood 09/05/2024 1:43 AM CDT 09/05/2024 2:00 AM CDT Smith Sawyer MD LAB BLOOD ORDERABLES Lila dawson Result [facility] Department [place] [address] * (ABNORMAL) CBC with auto differential (09/05/2024 1:43 AM CDT) WBC 4.82 3.80 - 9.90 K/cumm Hgb 9.2(L) 13.0 - 17.5 g/dL [facility] Hct 26.3(L) 38.9 - 50.3 % [facility] Plt 82(L) 150 - 400 K/cumm [facility] MPV 11.8 9.1 - 12.3 fL [facility] RBC 2.47(L) 4.30 - 5.80 M/cumm [facility] MCV 106.5(H) 81.3 - 96.4 fL [facility] MCH 37.2(H) 27.1 - 33.3 pg [facility] MCHC 35.0 32.3 - 35.7 g/dL [facility] RDW CV 19.3(H) 11.1 - 14.9 % [facility] RDW SD 75.1(H) 35.7 - 48.1 fL [facility] NRBC abs 0.00 0.00 - 0.01 K/cumm [facility] Blood 09/05/2024 1:43 AM CDT 09/05/2024 2:00 AM CDT Smith Sawyer MD LAB BLOOD ORDERABLES Lila l Result Performing Organization Address [facility] Co de Phone Number [facility] [place] [address] * (ABNORMAL) Protime-INR (09/05/2024 1:43 AM CDT) PT 21.5(H) 9.7 - 13.0 sec INR 1.96(H) 0.90 - 1.20 [facility] Comment: Interpretive data Oral anticoagulant therapeutic ranges: Venous thromboembolism prophylaxis or treatment: 2.0-3.0 CARDIOLOGY Standard range: 2.0-3.0 High-intensity range: 2.5-3.5 Refer to indication-specific guidelines for appropriate target ranges for prosthetic heart valve replacement. Current interpretive data was last revised on 2019. Blood 09/05/2024 1:43 AM CDT 09/05/2024 2:05 AM CDT Zuleima Levine MD LAB BLOOD ORDERABLES Lila l Result Performing Organization Address [facility] [place] [address] * Phosphorus (09/05/2024 1:43 AM CDT) Phosphorus, pl 4.1 2.3 - 4.5 mg/dL Blood 09/05/2024 1:43 AM CDT 09/05/2024 2:00 AM CDT Smith Sawyer MD LAB BLOOD ORDERABLES Lila l Result Performing Organization Address [facility] [place] [address] * (ABNORMAL) Comprehensive metabolic panel (09/05/2024 1:43 AM CDT) Sodium 138 135 - 145 mmol/L Potassium, pl 3.6 3.3 - 4.9 mmol/L [facility] Chloride 97 97 - 110 mmol/L [facility] CO2 33(H) 22 - 32 mmol/L [facility] Anion gap 8 2 - 15 mmol/L [facility] BUN 13 6 - 25 mg/dL [facility] Creatinine 0.90 0.80 - 1.30 mg/dL [facility] Glucose 110 70 - 199 mg/dL [facility] Comment: Interpretive Data Fasting glucose >/= 126 [...] 2022. Calcium 8.0(L) 8.5 - 10.3 mg/dL [facility] Bilirubin, total 0.6 0.1 - 1.2 mg/dL [facility] Protein, pl 5.3(L) 6.5 - 8.5 g/dL [facility] Albumin 2.7(L) 3.5 - 5.0 g/dL [facility] Alk phos 135(H) 40 - 130 Units/L [facility] ALT 22 7 - 55 Units/L [facility] AST 44 10 - 50 Units/L [facility] Blood 09/05/2024 1:43 AM CDT 09/05/2024 2:00 AM CDT us Smith Sawyer MD LAB BLOOD ORDERABLES Lila dawson Result [facility] [place] [address] * XR Chest 1 View (09/04/2024 11:51 [...] AM CDT Narrative 09/04/2024 11:04 AM CDT [facility] [place] [address] Transthoracic Echocardiographic Report Patient Name: SULMA BAZAN AL : 1950 (74y 1m) Gender: M Study Date: 09/04/2024 08:53:34 Ht(Inch): 70 Wt(Lb): 218.03 BSA: 2.21 Senior Gis Analyst: [email or web address] cross Location: [id number] Order Provider: FRANCISCO SAHU Heart Rate: 60 [...] LA Length 4C 6.12 cm AI Decel [place] 3.63 m/s2 LA Length 2C 7.21 cm [...] Procedure Note Gilberto Fish MD - 09/04/2024 [facility] [place] [address] Transthoracic Echocardiographic Report Patient Name: SULMA BAZAN AL : 1950 (74y 1m) Gender: M Study Date: 09/04/2024 08:53:34 Ht(Inch): 70 Wt(Lb): 218.03 BSA: 2.21 Senior Gis Analyst: mary cross Location: [id number] Order Provider:FRANCISCO SAHU Heart Rate: 60 BMI: [...] [ -25.0 - -18.0 ] AI Decel [id number] sec LA Length 4C 6.12 cm AI Decel [place]3.63 m/s2 LA Length 2C 7.21 cm AI [id number] msec LA Volume BP 133.31 ml MV [...] By: Gilberto Fish MD 09/04/2024 11:03:58 CDT [facility] Filippo Sahu MD CV ECHO PROCEDURES Fin [...] MD LAB BLOOD ORDERABLES Lila dawson Result [facility] Department [place] [address] * (ABNORMAL) Differential, auto (09/04/2024 12:25 AM CDT) Neutrophil abs 2.69 1.50 - 6.50 K/cumm Imm gran abs 0.01 0.00 - 0.10 K/cumm [facility] Lymphocyte abs 0.25(L) 0.80 - 3.30 K/cumm [facility] Monocyte abs 0.42 0.20 - 0.80 K/cumm [facility] Eosinophil abs 0.00 0.00 - 0.50 K/cumm [facility] Basophil abs 0.01 0.00 - 0.10 K/cumm [facility] Neutrophil pct 79.6 % [facility] Comment: Interpretive Data Percent cell count reference ranges are not reported, since discordance with absolute values may lead to misinterpretation of CBC data. Current Interpretive Data was last revised on 2017. Imm gran pct 0.3 % [facility] Comment: Interpretive Data Percent cell count reference ranges are not reported, since discordance with absolute values may lead to misinterpretation of CBC data. Current Interpretive Data was last revised on 2017. Lymphocyte pct 7.4 % [facility] Comment: Interpretive Data Percent cell count reference ranges are not reported, since discordance with absolute values may lead to misinterpretation of CBC data. Current Interpretive Data was last revised on 2017. Monocyte pct 12.4 % [facility] Comment: Interpretive Data Percent cell count reference ranges are not reported, since discordance with absolute values may lead to misinterpretation of CBC data. Current Interpretive Data was last revised on 2017. Eosinophil pct 0.0 % [facility] Comment: Interpretive Data Percent cell count reference ranges are not reported, since discordance with absolute values may lead to misinterpretation of CBC data. Current Interpretive Data was last revised on 2017. Basophil pct 0.3 % [facility] Comment: Interpretive Data Percent cell count reference ranges are not reported, since discordance with absolute values may lead to misinterpretation of CBC data. Current Interpretive Data was last revised on 2017. Blood 09/04/2024 12:2 5 AM CDT 09/04/2024 1:15 AM CDT Smith Sawyer MD LAB BLOOD ORDERABLES Lila l Result [facility] Department [place] [address] * (ABNORMAL) Pro B-type natriuretic peptide (09/04/2024 [...] MD LAB BLOOD ORDERABLES F inal Result [facility] [place] [address] * (ABNORMAL) CBC with auto differential (09/04/2024 12:25 AM CDT) WBC 3.38(L) 3.80 - 9.90 K/cumm Hgb 8.9(L) 13.0 - 17.5 g/dL [facility] Hct 26.1(L) 38.9 - 50.3 % [facility] Plt 74(L) 150 - 400 K/cumm [facility] MPV 11.9 9.1 - 12.3 fL [facility] RBC 2.45(L) 4.30 - 5.80 M/cumm [facility] MCV 106.5(H) 81.3 - 96.4 fL [facility] MCH 36.3(H) 27.1 - 33.3 pg [facility] MCHC 34.1 32.3 - 35.7 g/dL [facility] RDW CV 19.5(H) 11.1 - 14.9 % [facility] RDW SD 74.8(H) 35.7 - 48.1 fL [facility] NRBC abs 0.00 0.00 - 0.01 K/cumm [facility] Blood 09/04/2024 12:2 5 AM CDT 09/04/2024 1:15 AM CDT Smith Sawyer MD LAB BLOOD ORDERABLES Lila l Result Performing Organization Address [facility] de Phone Number [facility] [place] [address] * (ABNORMAL) Protime-INR (09/04/2024 12:25 AM CDT) PT 18.3(H) 9.7 - 13.0 sec INR 1.68(H) 0.90 - 1.20 [facility] Comment: Interpretive data Oral anticoagulant therapeutic ranges: Venous thromboembolism prophylaxis or treatment: 2.0-3.0 CARDIOLOGY Standard range: 2.0-3.0 High-intensity range: 2.5-3.5 Refer to indication-specific guidelines for appropriate target ranges for prosthetic heart valve replacement. Current interpretive data was last revised on 2019. Blood 09/04/2024 12:2 5 AM CDT 09/04/2024 1:11 AM CDT Zuleima Levine MD LAB BLOOD ORDERABLES Lila l Result Performing Organization Address [facility] de Phone Number [facility] Department [place] [address] * Phosphorus (09/04/2024 12:25 AM CDT) Phosphorus, pl 3.0 2.3 - 4.5 mg/dL Blood 09/04/2024 12:2 5 AM CDT 09/04/2024 1:13 AM CDT Smith Sawyer MD LAB BLOOD ORDERABLES Lila l Result [facility] [place] [address] * (ABNORMAL) Comprehensive metabolic panel (09/04/2024 12:25 AM CDT) Sodium 137 135 - 145 mmol/L Potassium, pl 4.1 3.3 - 4.9 mmol/L [facility] Chloride 101 97 - 110 mmol/L [facility] CO2 29 22 - 32 mmol/L [facility] Anion gap 7 2 - 15 mmol/L [facility] BUN 15 6 - 25 mg/dL [facility] Creatinine 0.80 0.80 - 1.30 mg/dL [facility] Glucose 125 70 - 199 mg/dL [facility] Comment: Interpretive Data Fasting glucose >/= 126 [...] 2022. Calcium 8.2(L) 8.5 - 10.3 mg/dL [facility] Bilirubin, total 0.5 0.1 - 1.2 mg/dL [facility] Protein, pl 5.2(L) 6.5 - 8.5 g/dL [facility] Albumin 2.6(L) 3.5 - 5.0 g/dL [facility] Alk phos 96 40 - 130 Units/L [facility] ALT 20 7 - 55 Units/L [facility] AST 42 10 - 50 Units/L [facility] Blood 09/04/2024 12:2 5 AM CDT 09/04/2024 1:13 AM CDT Smith Sawyer MD LAB BLOOD ORDERABLES Lila eunice Result [facility] Department [place] [address] * US Vein Duplex Lower Extremity Bilateral Complete (09/03/2024 3:52 PM CDT) Anatomical Region Laterality Modality Vascular Bilateral Ultrasound 09/03/2024 3:31 PM CDT Narrative 09/04/2024 4:15 PM CDT [facility] - Department of Vascular Surgery, Vascular Laboratory [address] [place] [address] Lower Extremity Venous Ultrasound Report Patient Name: SULMA BAZAN AL : 1950 (74y 1m) Study Date: 09/03/2024 3:31:25 PM Gender: M Tech: Location: [id number] Ref Provider: FRANCISCO SAHU Quality: Adequate Order [...] Swelling, Lower Extremity, Bilateral - FINDINGS: Performing Senior Gis Analyst: Alethea Osorio RVT, RDMS. Bilateral: Venous Doppler [...] Procedure Note Michael Torres MD - 09/04/2024 [facility] - Department of Vascular Surgery,Vascular Laboratory [address] [place] [address] Lower Extremity Venous Ultrasound Report Patient Name: SULMA BAZAN AL : 1950 (74y 1m) Study Date: 09/03/2024 3:31:25 PM Gender: M Tech: Location: [id number] Ref Provider: RFANCISCO SAHU Quality: Adequate Order Provider: FRANCISCO SAHU PROCEDURES: Vascular Report: Venous Duplex imaging was performed bilaterally in the lower extremities.The common femoral, femoral, popliteal, posterior tibial, peroneal veins wereevaluated for patency, spontaneity and phasicity with Doppler, compression and augmentationmaneuvers. Great saphenous vein proximal at the junction was evaluated with compressionmaneuvers. INDICATIONS: Swelling, Lower Extremity, Bilateral - FINDINGS: Performing Senior Gis Analyst: Alethea Osorio RVT, RDMS. Bilateral: Venous Doppler [...] above. Electronically Signed By: Michael Torres MD [facility] 09/04/2024 4:00:58 PM CDT us [place] Filippo Sahu MD [facility] US PROCEDURES Lila l Result * XR [...] MD LAB BLOOD ORDERABLES Lila dawson Result [facility] [place] [address] * (ABNORMAL) Differential, auto (09/03/2024 12:59 AM CDT) Pathologist [facility] Neutrophil abs 3.63 1.50 - 6.50 K/cumm Imm gran abs 0.03 0.00 - 0.10 K/cumm [facility] Lymphocyte abs 0.27(L) 0.80 - 3.30 K/cumm [facility] Monocyte abs 0.72 0.20 - 0.80 K/cumm [facility] Eosinophil abs 0.05 0.00 - 0.50 K/cumm [facility] Basophil abs 0.02 0.00 - 0.10 K/cumm [facility] Neutrophil pct 76.9 % [facility] Comment: Interpretive Data Percent cell count reference ranges are not reported, since discordance with absolute values may lead to misinterpretation of CBC data. Current Interpretive Data was last revised on 2017. Imm gran pct 0.6 % [facility] Comment: Interpretive Data Percent cell count reference ranges are not reported, since discordance with absolute values may lead to misinterpretation of CBC data. Current Interpretive Data was last revised on 2017. Lymphocyte pct 5.7 % [facility] Comment: Interpretive Data Percent cell count reference ranges are not reported, since discordance with absolute values may lead to misinterpretation of CBC data. Current Interpretive Data was last revised on 2017. Monocyte pct 15.3 % [facility] Comment: Interpretive Data Percent cell count reference ranges are not reported, since discordance with absolute values may lead to misinterpretation of CBC data. Current Interpretive Data was last revised on 2017. Eosinophil pct 1.1 % [facility] Comment: Interpretive Data Percent cell count reference ranges are not reported, since discordance with absolute values may lead to misinterpretation of CBC data. Current Interpretive Data was last revised on 2017. Basophil pct 0.4 % [facility] Comment: Interpretive Data Percent cell count reference ranges are not reported, since discordance with absolute values may lead to misinterpretation of CBC data. Current Interpretive Data was last revised on 2017. Blood 09/03/2024 12:5 9 AM CDT 09/03/2024 1:14 AM CDT Smith Sawyer MD LAB BLOOD ORDERABLES Lila dawson Result [facility] [place] [address] * (ABNORMAL) CBC with auto differential (09/03/2024 12:59 AM CDT) WBC 4.72 3.80 - 9.90 K/cumm Hgb 9.1(L) 13.0 - 17.5 g/dL [facility] Hct 25.8(L) 38.9 - 50.3 % [facility] Plt 82(L) 150 - 400 K/cumm [facility] MPV 11.5 9.1 - 12.3 fL [facility] RBC 2.41(L) 4.30 - 5.80 M/cumm [facility] MCV 107.1(H) 81.3 - 96.4 fL [facility] MCH 37.8(H) 27.1 - 33.3 pg [facility] MCHC 35.3 32.3 - 35.7 g/dL [facility] RDW CV 19.9(H) 11.1 - 14.9 % [facility] RDW SD 76.8(H) 35.7 - 48.1 fL [facility] NRBC abs 0.00 0.00 - 0.01 K/cumm [facility] Blood 09/03/2024 12:5 9 AM CDT 09/03/2024 1:14 AM CDT Smith Sawyer MD LAB BLOOD ORDERABLES Lila dawson Result Performing Organization Address [facility] de Phone Number [facility] [place] [address] * (ABNORMAL) Protime-INR (09/03/2024 12:59 AM CDT) PT 18.3(H) 9.7 - 13.0 sec INR 1.68(H) 0.90 - 1.20 [facility] Comment: Interpretive data Oral anticoagulant therapeutic ranges: Venous thromboembolism prophylaxis or treatment: 2.0-3.0 CARDIOLOGY Standard range: 2.0-3.0 High-intensity range: 2.5-3.5 Refer to indication-specific guidelines for appropriate target ranges for prosthetic heart valve replacement. Current interpretive data was last revised on 2019. Blood 09/03/2024 12:5 9 AM CDT 09/03/2024 1:18 AM CDT Zuleima Levine MD LAB BLOOD ORDERABLES Lila l Result Performing Organization Address [facility] de Phone Number [facility] [place] [address] * Type and screen (09/03/2024 12:59 AM CDT) Minna, indirect Negative ABO Rh A Positive [facility] Blood 09/03/2024 12:5 9 AM CDT 09/03/2024 1:31 AM CDT Narrative [facility] - 09/03/2024 3:30 AM CDT Has the patient had Daratumumab or Isatuximab in the past 6 months?->Unknown Smith Sawyer MD LAB BLOOD BANK TEST ORDER DEMETRIO Final Result Performing Organization Address City/State/[facility] Co de Phone Number [facility] [place] [address] * Uric acid (09/03/2024 12:59 AM CDT) [facility] Uric acid 5.0 3.0 - 8.0 mg/dL Blood 09/03/2024 12:5 9 AM CDT 09/03/2024 1:14 AM CDT Narrative [facility] - 09/03/2024 1:43 AM CDT Saturday and only. Morning draw. . Smith Sawyer MD LAB BLOOD ORDERABLES Lila l Result Performing Organization Address City/[facility] Co de Phone Number [facility] [place] [address] * Phosphorus (09/03/2024 12:59 AM CDT) [facility] Phosphorus, pl 2.7 2.3 - 4.5 mg/dL Blood 09/03/2024 12:5 9 AM CDT 09/03/2024 1:14 AM CDT Smith Sawyer MD LAB BLOOD ORDERABLES Lila l Result [facility] [place] [address] * Magnesium (09/03/2024 12:59 AM CDT) [facility] Magnesium 1.6 1.4 - 2.5 mg/dL Blood 09/03/2024 12:5 9 AM CDT 09/03/2024 1:14 AM CDT Zuleima Levine MD LAB BLOOD ORDERABLES Lila l Result [facility] Department [place] [address] * (ABNORMAL) Lactate dehydrogenase (LD) (09/03/2024 12:59 AM CDT) [facility] Lactate dehydrogenase (LDH) 356(H) 100 - 250 Units/L Blood 09/03/2024 12:5 9 AM CDT 09/03/2024 1:14 AM CDT Narrative [facility] - 09/03/2024 1:43 AM CDT Saturday and only. Morning draw. Smith Sawyer MD LAB BLOOD ORDERABLES Lila l Result Performing Organization Address City/[facility] Co de Phone Number [facility] Department [place] [address] * (ABNORMAL) Comprehensive metabolic panel (09/03/2024 12:59 AM CDT) [facility] Sodium 133(L) 135 - 145 mmol/L Potassium, pl 3.1(L) 3.3 - 4.9 mmol/L [facility] Chloride 99 97 - 110 mmol/L [facility] CO2 28 22 - 32 mmol/L [facility] Anion gap 6 2 - 15 mmol/L [facility] BUN 15 6 - 25 mg/dL [facility] Creatinine 0.82 0.80 - 1.30 mg/dL [facility] Glucose 121 70 - 199 mg/dL [facility] Comment: Interpretive Data Fasting glucose >/= 126 [...] Calcium 7.9(L) 8.5 - 10.3 mg/dL [facility] Bilirubin, total 0.7 0.1 - 1.2 mg/dL [facility] Protein, pl 4.9(L) 6.5 - 8.5 g/dL [facility] Albumin 2.6(L) 3.5 - 5.0 g/dL [facility] Alk phos 86 40 - 130 Units/L [facility] ALT 22 7 - 55 Units/L [facility] AST 45 10 - 50 Units/L [facility] Blood 09/03/2024 12:5 9 AM CDT 09/03/2024 1:14 AM CDT us Smith Sawyer MD LAB BLOOD ORDERABLES Lila dawson Result [facility] Department [place] [address] * eGFR (09/02/2024 12:41 AM CDT) eGFR [...] MD LAB BLOOD ORDERABLES Lila dawson Result [facility] Department [place] [address] * (ABNORMAL) Differential, auto (09/02/2024 12:41 AM CDT) Neutrophil abs 4.18 1.50 - 6.50 K/cumm Imm gran abs 0.05 0.00 - 0.10 K/cumm [facility] Lymphocyte abs 0.41(L) 0.80 - 3.30 K/cumm [facility] Monocyte abs 0.83(H) 0.20 - 0.80 K/cumm [facility] Eosinophil abs 0.08 0.00 - 0.50 K/cumm [facility] Basophil abs 0.03 0.00 - 0.10 K/cumm [facility] Neutrophil pct 75.0 % [facility] Comment: Interpretive Data Percent cell count reference ranges are not reported, since discordance with absolute values may lead to misinterpretation of CBC data. Current Interpretive Data was last revised on 2017. Imm gran pct 0.9 % [facility] Comment: Interpretive Data Percent cell count reference ranges are not reported, since discordance with absolute values may lead to misinterpretation of CBC data. Current Interpretive Data was last revised on 2017. Lymphocyte pct 7.3 % [facility] Comment: Interpretive Data Percent cell count reference ranges are not reported, since discordance with absolute values may lead to misinterpretation of CBC data. Current Interpretive Data was last revised on 2017. Monocyte pct 14.9 % [facility] Comment: Interpretive Data Percent cell count reference ranges are not reported, since discordance with absolute values may lead to misinterpretation of CBC data. Current Interpretive Data was last revised on 2017. Eosinophil pct 1.4 % [facility] Comment: Interpretive Data Percent cell count reference ranges are not reported, since discordance with absolute values may lead to misinterpretation of CBC data. Current Interpretive Data was last revised on 2017. Basophil pct 0.5 % [facility] Comment: Interpretive Data Percent cell count reference ranges are not reported, since discordance with absolute values may lead to misinterpretation of CBC data. Current Interpretive Data was last revised on 2017. Blood 09/02/2024 12:4 1 AM CDT 09/02/2024 1:02 AM CDT Smith Sawyer MD LAB BLOOD ORDERABLES Lila dawson Result [facility] Department [place] [address] * (ABNORMAL) CBC with auto differential (09/02/2024 12:41 AM CDT) WBC 5.58 3.80 - 9.90 K/cumm Hgb 9.9(L) 13.0 - 17.5 g/dL [facility] Hct 28.6(L) 38.9 - 50.3 % [facility] Plt 111(L) 150 - 400 K/cumm [facility] MPV 11.2 9.1 - 12.3 fL [facility] RBC 2.67(L) 4.30 - 5.80 M/cumm [facility] MCV 107.1(H) 81.3 - 96.4 fL [facility] MCH 37.1(H) 27.1 - 33.3 pg [facility] MCHC 34.6 32.3 - 35.7 g/dL [facility] RDW CV 20.9(H) 11.1 - 14.9 % [facility] RDW SD 80.1(H) 35.7 - 48.1 fL [facility] NRBC abs 0.00 0.00 - 0.01 K/cumm [facility] Blood 09/02/2024 12:4 1 AM CDT 09/02/2024 1:02 AM CDT Smith Sawyer MD LAB BLOOD ORDERABLES Lila l Result Performing Organization Address [facility] Co de Phone Number [facility] [place] [address] * (ABNORMAL) Protime-INR (09/02/2024 12:41 AM CDT) PT 18.5(H) 9.7 - 13.0 sec INR 1.69(H) 0.90 - 1.20 [facility] Comment: Interpretive data Oral anticoagulant therapeutic ranges: Venous thromboembolism prophylaxis or treatment: 2.0-3.0 CARDIOLOGY Standard range: 2.0-3.0 High-intensity range: 2.5-3.5 Refer to indication-specific guidelines for appropriate target ranges for prosthetic heart valve replacement. Current interpretive data was last revised on 2019. Blood 09/02/2024 12:4 1 AM CDT 09/02/2024 1:02 AM CDT Zuleima Levine MD LAB BLOOD ORDERABLES Lila l Result Performing Organization Address [facility] de Phone Number [facility] [place] [address] * Phosphorus (09/02/2024 12:41 AM CDT) Phosphorus, pl 2.4 2.3 - 4.5 mg/dL Blood 09/02/2024 12:4 1 AM CDT 09/02/2024 1:02 AM CDT Smith Sawyer MD LAB BLOOD ORDERABLES Lila l Result Performing Organization Address City/[facility] Co de Phone Number [facility] [place] [address] * Magnesium (09/02/2024 12:41 AM CDT) Magnesium 2.0 1.4 - 2.5 mg/dL Blood 09/02/2024 12:4 1 AM CDT 09/02/2024 1:02 AM CDT Zuleima Levine MD LAB BLOOD ORDERABLES Lila eunice Result [facility] [place] [address] * (ABNORMAL) Comprehensive metabolic panel (09/02/2024 12:41 AM CDT) Pathologist [facility] Sodium 140 135 - 145 mmol/L Potassium, pl 3.7 3.3 - 4.9 mmol/L [facility] Chloride 105 97 - 110 mmol/L [facility] CO2 23 22 - 32 mmol/L [facility] Anion gap 12 2 - 15 mmol/L [facility] BUN 14 6 - 25 mg/dL [facility] Creatinine 0.83 0.80 - 1.30 mg/dL [facility] Glucose 106 70 - 199 mg/dL [facility] Comment: Interpretive Data Fasting glucose >/= 126 [...] 2022. Calcium 7.8(L) 8.5 - 10.3 mg/dL [facility] Bilirubin, total 0.6 0.1 - 1.2 mg/dL [facility] Protein, pl 5.1(L) 6.5 - 8.5 g/dL [facility] Albumin 2.9(L) 3.5 - 5.0 g/dL [facility] Alk phos 92 40 - 130 Units/L [facility] ALT 23 7 - 55 Units/L [facility] AST 46 10 - 50 Units/L [facility] Blood 09/02/2024 12:4 1 AM CDT 09/02/2024 1:02 AM CDT us Smith Sawyer MD LAB BLOOD ORDERABLES Lila eunice Result [facility] Department [place] [address] * US Vein Duplex Upper Extremity Left Limited, Unilateral (09/01/2024 2:27 PM CDT) Anatomical Region Laterality Modality Vascular Left Ultrasound 09/01/2024 1:18 PM CDT Narrative 09/01/2024 6:11 PM CDT [facility] - Department of Vascular Surgery, Vascular Laboratory [address] [place] [address] Upper Extremity Venous Ultrasound Report Patient Name: SULMA BAZAN : 1950 (74y 1m) Study Date: 09/01/2024 1:18:26 PM Gender: M Tech: Location: [id number] Ref Provider: ZULEIMA LEVINE Quality: Adequate Order Provider: ZULEIMA LEVINE PROCEDURES: Vascular Report: Venous Duplex imaging was performed in the left upper extremity. The internal jugular, subclavian and axillary veins were evaluated for patency, spontaneity and phasicity with Doppler, compression and augmentation maneuvers. The brachial, basilic and cephalic veins were also evaluated with compression maneuvers. INDICATIONS: Hypoxemia. FINDINGS: Performing Senior Gis Analyst: Mei Linn RVT. Left: Venous Doppler signals [...] Procedure Note Maikel Gupta MD - 09/01/2024 [employer] - Department of Vascular Surgery,Vascular Laboratory [address] [place] [address] Upper Extremity Venous Ultrasound Report Patient Name: SULMA BAZAN : 1950 (74y 1m) Study Date: 09/01/2024 1:18:26 PM Gender: M Tech: Location: [id number] Ref Provider: ZULEIMA LEVINE Quality: Adequate Order Provider: ZULEIMA LEVINE PROCEDURES: Vascular Report: Venous Duplex imaging was performed in the left upper extremity. Theinternal jugular, subclavian and axillary veins were evaluated for patency, spontaneity andphasicity with Doppler, compression and augmentation maneuvers. The brachial, basilic andcephalic veins were also evaluated with compression maneuvers. INDICATIONS: Hypoxemia. FINDINGS: Performing Senior Gis Analyst: Mei Linn RVT. Left: Venous Doppler signals [...] 5:21:16 PM CDT us Zuleima Levine MD [facility] US PROCEDURES Final R esult * eGFR [...] MD LAB BLOOD ORDERABLES Lila l Result [facility] [place] [address] * (ABNORMAL) Differential, auto (09/01/2024 3:21 AM CDT) Neutrophil abs 3.01 1.50 - 6.50 K/cumm Imm gran abs 0.04 0.00 - 0.10 K/cumm [facility] Lymphocyte abs 0.35(L) 0.80 - 3.30 K/cumm [facility] Monocyte abs 0.67 0.20 - 0.80 K/cumm [facility] Eosinophil abs 0.06 0.00 - 0.50 K/cumm [facility] Basophil abs 0.01 0.00 - 0.10 K/cumm [facility] Neutrophil pct 72.7 % [facility] Comment: Interpretive Data Percent cell count reference ranges are not reported, since discordance with absolute values may lead to misinterpretation of CBC data. Current Interpretive Data was last revised on 2017. Imm gran pct 1.0 % [facility] Comment: Interpretive Data Percent cell count reference ranges are not reported, since discordance with absolute values may lead to misinterpretation of CBC data. Current Interpretive Data was last revised on 2017. Lymphocyte pct 8.5 % [facility] Comment: Interpretive Data Percent cell count reference ranges are not reported, since discordance with absolute values may lead to misinterpretation of CBC data. Current Interpretive Data was last revised on 2017. Monocyte pct 16.2 % [facility] Comment: Interpretive Data Percent cell count reference ranges are not reported, since discordance with absolute values may lead to misinterpretation of CBC data. Current Interpretive Data was last revised on 2017. Eosinophil pct 1.4 % [facility] Comment: Interpretive Data Percent cell count reference ranges are not reported, since discordance with absolute values may lead to misinterpretation of CBC data. Current Interpretive Data was last revised on 2017. Basophil pct 0.2 % [facility] Comment: Interpretive Data Percent cell count reference ranges are not reported, since discordance with absolute values may lead to misinterpretation of CBC data. Current Interpretive Data was last revised on 2017. Blood 09/01/2024 3:21 AM CDT 09/01/2024 3:38 AM CDT us Smith Sawyer MD LAB BLOOD ORDERABLES Lila dawson Result [facility] [place] [address] * (ABNORMAL) CBC with auto differential (09/01/2024 3:21 AM CDT) WBC 4.14 3.80 - 9.90 K/cumm Hgb 9.0(L) 13.0 - 17.5 g/dL [facility] Hct 26.2(L) 38.9 - 50.3 % [facility] Plt 86(L) 150 - 400 K/cumm [facility] MPV 11.2 9.1 - 12.3 fL [facility] RBC 2.45(L) 4.30 - 5.80 M/cumm [facility] MCV 106.9(H) 81.3 - 96.4 fL [facility] MCH 36.7(H) 27.1 - 33.3 pg [facility] MCHC 34.4 32.3 - 35.7 g/dL [facility] RDW CV 21.0(H) 11.1 - 14.9 % [facility] RDW SD 80.0(H) 35.7 - 48.1 fL [facility] NRBC abs 0.00 0.00 - 0.01 K/cumm [facility] Blood 09/01/2024 3:21 AM CDT 09/01/2024 3:38 AM CDT Smith Sawyer MD LAB BLOOD ORDERABLES Lila dawson Result Performing Organization Address City/State/[facility] Co de Phone Number [facility] [place] [address] * (ABNORMAL) Protime-INR (09/01/2024 3:21 AM CDT) Pathologist [facility] PT 20.0(H) 9.7 - 13.0 sec INR 1.83(H) 0.90 - 1.20 [facility] Comment: Interpretive data Oral anticoagulant therapeutic ranges: Venous thromboembolism prophylaxis or treatment: 2.0-3.0 CARDIOLOGY Standard range: 2.0-3.0 High-intensity range: 2.5-3.5 Refer to indication-specific guidelines for appropriate target ranges for prosthetic heart valve replacement. Current interpretive data was last revised on 2019. Blood 09/01/2024 3:21 AM CDT 09/01/2024 3:36 AM CDT Zuleima Levine MD LAB BLOOD ORDERABLES Lila l Result Performing Organization Address City/[facility] Co de Phone Number [facility] [place] [address] * Phosphorus (09/01/2024 3:21 AM CDT) [facility] Phosphorus, pl 2.8 2.3 - 4.5 mg/dL Blood 09/01/2024 3:21 AM CDT 09/01/2024 3:37 AM CDT Smith Sawyer MD LAB BLOOD ORDERABLES Lila l Result Performing Organization Address [facility] de Phone Number [facility] [place] [address] * Magnesium (09/01/2024 3:21 AM CDT) [facility] Magnesium 1.5 1.4 - 2.5 mg/dL Blood 09/01/2024 3:21 AM CDT 09/01/2024 3:37 AM CDT Zuleima Levine MD LAB BLOOD ORDERABLES Lila l Result Performing Organization Address [facility] Co de Phone Number [facility] [place] [address] * (ABNORMAL) Comprehensive metabolic panel (09/01/2024 3:21 AM CDT) [facility] Sodium 143 135 - 145 mmol/L Potassium, pl 3.2(L) 3.3 - 4.9 mmol/L [facility] Chloride 108 97 - 110 mmol/L [facility] CO2 28 22 - 32 mmol/L [facility] Anion gap 7 2 - 15 mmol/L [facility] BUN 15 6 - 25 mg/dL [facility] Creatinine 0.95 0.80 - 1.30 mg/dL [facility] Glucose 123 70 - 199 mg/dL [facility] Comment: Interpretive Data Fasting glucose >/= 126 [...] 2022. Calcium 7.8(L) 8.5 - 10.3 mg/dL [facility] Bilirubin, total 0.6 0.1 - 1.2 mg/dL [facility] Protein, pl 4.7(L) 6.5 - 8.5 g/dL [facility] Albumin 2.3(L) 3.5 - 5.0 g/dL [facility] Alk phos 84 40 - 130 Units/L [facility] ALT 21 7 - 55 Units/L [facility] AST 44 10 - 50 Units/L [facility] Blood 09/01/2024 3:21 AM CDT 09/01/2024 3:37 AM CDT Smith Sawyer MD LAB BLOOD ORDERABLES Lila l Result Performing Organization Address City/State/[facility] Co de Phone Number [facility] [place] [address] * XR Chest 1 View (08/31/2024 10:37 [...] Biopsy) 08/31/2024 11:47 AM CDT Narrative PATHOLOGY [facility] - 09/02/2024 10:06 AM CDT EPIC results best viewed via link to PDF [facility] Mariama Martínez Laboratory of Surgical Pathology [facility] [place] [address] Note to Patients: This report may contain [...] Gender: Marlen : 1950 (Age: 74) Address: [facility] [place] [address] Hospital #: [id number] Taken:08/31/2024 Received:08/31/2024 Reported: 09/02/2024 Patient Type: [facility] Inpatient Service: Oncology Location: [place] [address] Physician(s): MD Gilberto Melgar M.D. Shivani Shah [...] Yamil DA. 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 Am J Surg Pathol. 2022Feb 03;47(10):1474-0065. doi: 10.1097/PAS.[id number]. Epub 2022Nov 29. PMID: [id number]. Shahla Lam D.O. History: The patient is [...] Surgical Pathology and Flow Cytometry Departments at [facility] as part of an ongoing fuel quality tech program and in compliance with federally mandated [...] Surgical Pathology and Flow Cytometry Departments of [facility]. It has not been cleared or approved by the U. S. Food and Drug Administration. IMAGES AND SCANNED DOCUMENTS, IF INCLUDED, ONLY VIEWABLE IN PDF VERSION OF REPORT us Abram Smith MD LAB PATHOLOGY ORDERABLES Final Result PATHOLOGY [facility] 3rd Floor [place], [place] [phone] * Flexible Sigmoidoscopy (08/31/2024 11:26 AM CDT) Anatomical Region Laterality Modality Other Narrative Procedure Note Abram Smith MD - 08/31/2024 11:26 AM CDT [facility] Patient Name: Sulma Bazan Procedure Date: 08/31/2024 11:26 AM Date of : 1950 Admit Type: Inpatient Age: 74 Gender: Male Attending MD: Abram Smith M.D. Room: [facility] ENDOSCOPY Note Status: Finalized Procedure: [...] were discussed and informed consentwas obtained. The [id number] Endoscope was introduced through the anus [...] MD LAB BLOOD ORDERABLES Lila l Result [facility] [place] [address] * eGFR (08/31/2024 2:34 AM CDT) eGFR [...] MD LAB BLOOD ORDERABLES Lila dawson Result [facility] [place] [address] * (ABNORMAL) Differential, auto (08/31/2024 2:34 AM CDT) Pathologist [facility] Neutrophil abs 3.45 1.50 - 6.50 K/cumm Imm gran abs 0.05 0.00 - 0.10 K/cumm [facility] Lymphocyte abs 0.39(L) 0.80 - 3.30 K/cumm [facility] Monocyte abs 0.72 0.20 - 0.80 K/cumm [facility] Eosinophil abs 0.07 0.00 - 0.50 K/cumm [facility] Basophil abs 0.01 0.00 - 0.10 K/cumm [facility] Neutrophil pct 73.5 % [facility] Comment: Interpretive Data Percent cell count reference ranges are not reported, since discordance with absolute values may lead to misinterpretation of CBC data. Current Interpretive Data was last revised on 2017. Imm gran pct 1.1 % [facility] Comment: Interpretive Data Percent cell count reference ranges are not reported, since discordance with absolute values may lead to misinterpretation of CBC data. Current Interpretive Data was last revised on 2017. Lymphocyte pct 8.3 % [facility] Comment: Interpretive Data Percent cell count reference ranges are not reported, since discordance with absolute values may lead to misinterpretation of CBC data. Current Interpretive Data was last revised on 2017. Monocyte pct 15.4 % [facility] Comment: Interpretive Data Percent cell count reference ranges are not reported, since discordance with absolute values may lead to misinterpretation of CBC data. Current Interpretive Data was last revised on 2017. Eosinophil pct 1.5 % [facility] Comment: Interpretive Data Percent cell count reference ranges are not reported, since discordance with absolute values may lead to misinterpretation of CBC data. Current Interpretive Data was last revised on 2017. Basophil pct 0.2 % [facility] Comment: Interpretive Data Percent cell count reference ranges are not reported, since discordance with absolute values may lead to misinterpretation of CBC data. Current Interpretive Data was last revised on 2017. Blood 08/31/2024 2:34 AM CDT 08/31/2024 3:12 AM CDT Smith Sawyer MD LAB BLOOD ORDERABLES Lila l Result [facility] [place] [address] * (ABNORMAL) CBC with auto differential (08/31/2024 2:34 AM CDT) WBC 4.69 3.80 - 9.90 K/cumm Hgb 8.9(L) 13.0 - 17.5 g/dL [facility] Hct 25.5(L) 38.9 - 50.3 % [facility] Plt 90(L) 150 - 400 K/cumm [facility] MPV 10.6 9.1 - 12.3 fL [facility] RBC 2.38(L) 4.30 - 5.80 M/cumm [facility] MCV 107.1(H) 81.3 - 96.4 fL [facility] MCH 37.4(H) 27.1 - 33.3 pg [facility] MCHC 34.9 32.3 - 35.7 g/dL [facility] RDW CV 21.1(H) 11.1 - 14.9 % [facility] RDW SD 79.6(H) 35.7 - 48.1 fL [facility] NRBC abs 0.00 0.00 - 0.01 K/cumm [facility] Blood 08/31/2024 2:34 AM CDT 08/31/2024 3:12 AM CDT Smith Sawyer MD LAB BLOOD ORDERABLES Lila l Result Performing Organization Address [facility] de Phone Number [facility] [place] [address] * aPTT (08/31/2024 2:34 AM CDT) aPTT [...] ORDERABLES Lila l Result Performing Organization Address [facility] de Phone Number [facility] [place] [address] * (ABNORMAL) Protime-INR (08/31/2024 2:34 AM CDT) PT 18.8(H) 9.7 - 13.0 sec INR 1.72(H) 0.90 - 1.20 [facility] Comment: Interpretive data Oral anticoagulant therapeutic ranges: Venous thromboembolism prophylaxis or treatment: 2.0-3.0 CARDIOLOGY Standard range: 2.0-3.0 High-intensity range: 2.5-3.5 Refer to indication-specific guidelines for appropriate target ranges for prosthetic heart valve replacement. Current interpretive data was last revised on 2019. Blood 08/31/2024 2:34 AM CDT 08/31/2024 3:04 AM CDT Zuleima Levine MD LAB BLOOD ORDERABLES Lila l Result Performing Organization Address [facility] Co de Phone Number [facility] [place] [address] * Type and screen (08/31/2024 2:34 AM CDT) ABO Rh A Positive Minna, indirect Negative [facility] Blood 08/31/2024 2:34 AM CDT 08/31/2024 3:06 AM CDT Narrative [facility] - 08/31/2024 7:31 AM CDT Has the patient had Daratumumab or Isatuximab in the past 6 months?->Unknown Smith Sawyer MD LAB BLOOD BANK TEST ORDER DEMETRIO Final Result Performing Organization Address [facility] de Phone Number [facility] [place] [address] * Uric acid (08/31/2024 2:34 AM CDT) Pathologist [facility] Uric acid 6.6 3.0 - 8.0 mg/dL Blood 08/31/2024 2:34 AM CDT 08/31/2024 3:12 AM CDT Narrative [facility] - 08/31/2024 3:42 AM CDT Saturday and only. Morning draw. . Smith Sawyer MD LAB BLOOD ORDERABLES Lila l Result Performing Organization Address [facility] Co de Phone Number [facility] [place] [address] * (ABNORMAL) Phosphorus (08/31/2024 2:34 AM CDT) Phosphorus, pl 1.9(L) 2.3 - 4.5 mg/dL Blood 08/31/2024 2:34 AM CDT 08/31/2024 3:12 AM CDT Smith Sawyer MD LAB BLOOD ORDERABLES Lila l Result Performing Organization Address City/[facility]/ZIP Co de Phone Number [facility] [place] [address] * (ABNORMAL) Lactate dehydrogenase (LD) (08/31/2024 2:34 AM CDT) Pathologist [facility] Lactate dehydrogenase (LDH) 301(H) 100 - 250 Units/L Blood 08/31/2024 2:34 AM CDT 08/31/2024 3:12 AM CDT Narrative [facility] - 08/31/2024 3:42 AM CDT Saturday and only. Morning draw. Smith Sawyer MD LAB BLOOD ORDERABLES Lila l Result Performing Organization Address City/[facility] Co [place] [address] * (ABNORMAL) Comprehensive metabolic panel (08/31/2024 2:34 AM CDT) [facility] Sodium 139 135 - 145 mmol/L Potassium, pl 3.2(L) 3.3 - 4.9 mmol/L [facility] Chloride 107 97 - 110 mmol/L [facility] CO2 25 22 - 32 mmol/L [facility] Anion gap 7 2 - 15 mmol/L [facility] BUN 20 6 - 25 mg/dL [facility] Creatinine 0.92 0.80 - 1.30 mg/dL [facility] Glucose 113 70 - 199 mg/dL [facility] Comment: Interpretive Data Fasting glucose >/= 126 [...] 2022. Calcium 8.0(L) 8.5 - 10.3 mg/dL [facility] Bilirubin, total 0.5 0.1 - 1.2 mg/dL [facility] Protein, pl 4.8(L) 6.5 - 8.5 g/dL [facility] Albumin 2.6(L) 3.5 - 5.0 g/dL [facility] Alk phos 82 40 - 130 Units/L [facility] ALT 23 7 - 55 Units/L [facility] AST 48 10 - 50 Units/L [facility] Blood 08/31/2024 2:34 AM CDT 08/31/2024 3:12 AM CDT us Smith Sawyer MD LAB BLOOD ORDERABLES Lila dawson Result [facility] [place] [address] * (ABNORMAL) Protime-INR (08/30/2024 4:30 AM CDT) PT 20.1(H) 9.7 - 13.0 sec INR 1.84(H) 0.90 - 1.20 [facility] Comment: Interpretive data Oral anticoagulant therapeutic ranges: Venous thromboembolism prophylaxis or treatment: 2.0-3.0 CARDIOLOGY Standard range: 2.0-3.0 High-intensity range: 2.5-3.5 Refer to indication-specific guidelines for appropriate target ranges for prosthetic heart valve replacement. Current interpretive data was last revised on 2019. Blood 08/30/2024 4:30 AM CDT 08/30/2024 2:53 AM CDT Zuleima Levine MD LAB BLOOD ORDERABLES Lila l Result Performing Organization Address City/[facility]/ZIP Co de Phone Number [facility] [place] [address] * eGFR (08/30/2024 2:34 AM CDT) Pathologist [facility] eGFR 78 >=60 mL/min/1. 73 m2 Comment: [...] ORDERABLES Lila l Result Performing Organization Address [facility] Co de Phone Number [facility] [place] [address] * (ABNORMAL) Differential, auto (08/30/2024 2:34 AM CDT) Pathologist [facility] Neutrophil abs 3.58 1.50 - 6.50 K/cumm Imm gran abs 0.06 0.00 - 0.10 K/cumm [facility] Lymphocyte abs 0.20(L) 0.80 - 3.30 K/cumm [facility] Monocyte abs 0.72 0.20 - 0.80 K/cumm [facility] Eosinophil abs 0.08 0.00 - 0.50 K/cumm [facility] Basophil abs 0.01 0.00 - 0.10 K/cumm [facility] Neutrophil pct 77.0 % [facility] Comment: Interpretive Data Percent cell count reference ranges are not reported, since discordance with absolute values may lead to misinterpretation of CBC data. Current Interpretive Data was last revised on 2017. Imm gran pct 1.3 % [facility] Comment: Interpretive Data Percent cell count reference ranges are not reported, since discordance with absolute values may lead to misinterpretation of CBC data. Current Interpretive Data was last revised on 2017. Lymphocyte pct 4.3 % [facility] Comment: Interpretive Data Percent cell count reference ranges are not reported, since discordance with absolute values may lead to misinterpretation of CBC data. Current Interpretive Data was last revised on 2017. Monocyte pct 15.5 % [facility] Comment: Interpretive Data Percent cell count reference ranges are not reported, since discordance with absolute values may lead to misinterpretation of CBC data. Current Interpretive Data was last revised on 2017. Eosinophil pct 1.7 % [facility] Comment: Interpretive Data Percent cell count reference ranges are not reported, since discordance with absolute values may lead to misinterpretation of CBC data. Current Interpretive Data was last revised on 2017. Basophil pct 0.2 % [facility] Comment: Interpretive Data Percent cell count reference ranges are not reported, since discordance with absolute values may lead to misinterpretation of CBC data. Current Interpretive Data was last revised on 2017. Blood 08/30/2024 2:34 AM CDT 08/30/2024 2:56 AM CDT us Smith Sawyer MD LAB BLOOD ORDERABLES Lila dawson Result [facility] Department [place] [address] * (ABNORMAL) CBC with auto differential (08/30/2024 2:34 AM CDT) WBC 4.65 3.80 - 9.90 K/cumm Hgb 8.5(L) 13.0 - 17.5 g/dL [facility] Hct 24.7(L) 38.9 - 50.3 % [facility] Plt 86(L) 150 - 400 K/cumm [facility] MPV 10.4 9.1 - 12.3 fL [facility] RBC 2.28(L) 4.30 - 5.80 M/cumm [facility] MCV 108.3(H) 81.3 - 96.4 fL [facility] MCH 37.3(H) 27.1 - 33.3 pg [facility] MCHC 34.4 32.3 - 35.7 g/dL [facility] RDW CV 21.0(H) 11.1 - 14.9 % [facility] RDW SD 81.8(H) 35.7 - 48.1 fL [facility] NRBC abs 0.02(H) 0.00 - 0.01 K/cumm [facility] Blood 08/30/2024 2:34 AM CDT 08/30/2024 2:56 AM CDT Smith Sawyer MD LAB BLOOD ORDERABLES Lila l Result Performing Organization Address City/[facility] Co de Phone Number [facility] Department [place] [address] * Phosphorus (08/30/2024 2:34 AM CDT) Pathologist [facility] Phosphorus, pl 2.7 2.3 - 4.5 mg/dL Blood 08/30/2024 2:34 AM CDT 08/30/2024 2:56 AM CDT Smith Sawyer MD LAB BLOOD ORDERABLES Lila l Result Performing Organization Address City/State/[facility] Co de Phone Number [facility] [place] [address] * Magnesium (08/30/2024 2:34 AM CDT) Magnesium 1.8 1.4 - 2.5 mg/dL Blood 08/30/2024 2:34 AM CDT 08/30/2024 2:56 AM CDT Zuleima Levine MD LAB BLOOD ORDERABLES Lila l Result [facility] [place] [address] * (ABNORMAL) Comprehensive metabolic panel (08/30/2024 2:34 AM CDT) Pathologist [facility] Sodium 141 135 - 145 mmol/L Potassium, pl 3.4 3.3 - 4.9 mmol/L [facility] Chloride 109 97 - 110 mmol/L [facility] CO2 23 22 - 32 mmol/L [facility] Anion gap 9 2 - 15 mmol/L [facility] BUN 24 6 - 25 mg/dL [facility] Creatinine 1.00 0.80 - 1.30 mg/dL [facility] Glucose 105 70 - 199 mg/dL [facility] Comment: Interpretive Data Fasting glucose >/= 126 [...] 2022. Calcium 8.0(L) 8.5 - 10.3 mg/dL [facility] Bilirubin, total 0.4 0.1 - 1.2 mg/dL [facility] Protein, pl 4.8(L) 6.5 - 8.5 g/dL [facility] Albumin 3.1(L) 3.5 - 5.0 g/dL [facility] Alk phos 69 40 - 130 Units/L [facility] ALT 25 7 - 55 Units/L [facility] AST 47 10 - 50 Units/L [facility] Blood 08/30/2024 2:34 AM CDT 08/30/2024 2:56 AM CDT Smith Sawyer MD LAB BLOOD ORDERABLES Lila l Result Performing Organization Address City/[facility]/ZIP Co de Phone Number [facility] [place] [address] * eGFR (08/29/2024 1:30 AM CDT) eGFR [...] MD LAB BLOOD ORDERABLES Lila l Result [facility] [place] [address] * (ABNORMAL) Differential, auto (08/29/2024 1:30 AM CDT) Neutrophil abs 3.07 1.50 - 6.50 K/cumm Imm gran abs 0.07 0.00 - 0.10 K/cumm [facility] Lymphocyte abs 0.29(L) 0.80 - 3.30 K/cumm [facility] Monocyte abs 0.91(H) 0.20 - 0.80 K/cumm [facility] Eosinophil abs 0.05 0.00 - 0.50 K/cumm [facility] Basophil abs 0.02 0.00 - 0.10 K/cumm [facility] Neutrophil pct 69.6 % [facility] Comment: Interpretive Data Percent cell count reference ranges are not reported, since discordance with absolute values may lead to misinterpretation of CBC data. Current Interpretive Data was last revised on 2017. Imm gran pct 1.6 % [facility] Comment: Interpretive Data Percent cell count reference ranges are not reported, since discordance with absolute values may lead to misinterpretation of CBC data. Current Interpretive Data was last revised on 2017. Lymphocyte pct 6.6 % [facility] Comment: Interpretive Data Percent cell count reference ranges are not reported, since discordance with absolute values may lead to misinterpretation of CBC data. Current Interpretive Data was last revised on 2017. Monocyte pct 20.6 % [facility] Comment: Interpretive Data Percent cell count reference ranges are not reported, since discordance with absolute values may lead to misinterpretation of CBC data. Current Interpretive Data was last revised on 2017. Eosinophil pct 1.1 % [facility] Comment: Interpretive Data Percent cell count reference ranges are not reported, since discordance with absolute values may lead to misinterpretation of CBC data. Current Interpretive Data was last revised on 2017. Basophil pct 0.5 % [facility] Comment: Interpretive Data Percent cell count reference ranges are not reported, since discordance with absolute values may lead to misinterpretation of CBC data. Current Interpretive Data was last revised on 2017. Blood 08/29/2024 1:30 AM CDT 08/29/2024 1:42 AM CDT Smith Sawyer MD LAB BLOOD ORDERABLES Lila l Result Performing Organization Address [facility] Co de Phone Number [facility] [place] [address] * (ABNORMAL) CBC with auto differential (08/29/2024 1:30 AM CDT) WBC 4.41 3.80 - 9.90 K/cumm Hgb 8.9(L) 13.0 - 17.5 g/dL [facility] Hct 26.7(L) 38.9 - 50.3 % [facility] Plt 112(L) 150 - 400 K/cumm [facility] MPV 10.4 9.1 - 12.3 fL [facility] RBC 2.45(L) 4.30 - 5.80 M/cumm [facility] MCV 109.0(H) 81.3 - 96.4 fL [facility] MCH 36.3(H) 27.1 - 33.3 pg [facility] MCHC 33.3 32.3 - 35.7 g/dL [facility] RDW CV 21.4(H) 11.1 - 14.9 % [facility] RDW SD 83.0(H) 35.7 - 48.1 fL [facility] NRBC abs 0.00 0.00 - 0.01 K/cumm [facility] Blood 08/29/2024 1:30 AM CDT 08/29/2024 1:42 AM CDT Smith Sawyer MD LAB BLOOD ORDERABLES Lila l Result Performing Organization Address [facility] Co de Phone Number [facility] [place] [address] * (ABNORMAL) Protime-INR (08/29/2024 1:30 AM CDT) PT 28.4(H) 9.7 - 13.0 sec INR 2.58(H) 0.90 - 1.20 [facility] Comment: Interpretive data Oral anticoagulant therapeutic ranges: Venous thromboembolism prophylaxis or treatment: 2.0-3.0 CARDIOLOGY Standard range: 2.0-3.0 High-intensity range: 2.5-3.5 Refer to indication-specific guidelines for appropriate target ranges for prosthetic heart valve replacement. Current interpretive data was last revised on 2019. Blood 08/29/2024 1:3 0 AM CDT 08/29/2024 1:51 AM CDT Zuleima Levine MD LAB BLOOD ORDERABLES Lila l Result Performing Organization Address City/[facility]/ZIP Co de Phone Number [facility] [place] [address] * Phosphorus (08/29/2024 1:30 AM CDT) Pathologist [facility] Phosphorus, pl 2.4 2.3 - 4.5 mg/dL Blood 08/29/2024 1:30 AM CDT 08/29/2024 1:42 AM CDT Smith Sawyer MD LAB BLOOD ORDERABLES Lila l Result Performing Organization Address [facility] de Phone Number [facility] Department [place] [address] * (ABNORMAL) Comprehensive metabolic panel (08/29/2024 1:30 AM CDT) [facility] Sodium 142 135 - 145 mmol/L Potassium, pl 3.8 3.3 - 4.9 mmol/L [facility] Chloride 110 97 - 110 mmol/L [facility] CO2 19(L) 22 - 32 mmol/L [facility] Anion gap 13 2 - 15 mmol/L [facility] BUN 28(H) 6 - 25 mg/dL [facility] Creatinine 1.10 0.80 - 1.30 mg/dL [facility] Glucose 108 70 - 199 mg/dL [facility] Comment: Interpretive Data Fasting glucose >/= 126 [...] 2022. Calcium 8.1(L) 8.5 - 10.3 mg/dL [facility] Bilirubin, total 0.5 0.1 - 1.2 mg/dL [facility] Protein, pl 5.3(L) 6.5 - 8.5 g/dL [facility] Albumin 3.3(L) 3.5 - 5.0 g/dL [facility] Alk phos 72 40 - 130 Units/L [facility] ALT 27 7 - 55 Units/L [facility] AST 53(H) 10 - 50 Units/L [facility] Blood 08/29/2024 1:30 AM CDT 08/29/2024 1:42 AM CDT mSith Sawyer MD LAB BLOOD ORDERABLES Lila l Result Performing Organization Address [facility]/ZIP Co de Phone Number [facility] Department [place] [address] * Transfuse plasma Standard plasma (08/28/2024 2:39 PM CDT) Blood Zuleima Levine MD BLOOD TRANSFUSION ORDERAB LES Edited Result - Final Performing Organization Address City/[facility]/ZIP Co de Phone Number [facility] [place] [address] * (ABNORMAL) Protime-INR (08/28/2024 2:30 PM CDT) PT 24.1(H) 9.7 - 13.0 sec INR 2.20(H) 0.90 - 1.20 [facility] Comment: Interpretive data Oral anticoagulant therapeutic ranges: Venous thromboembolism prophylaxis or treatment: 2.0-3.0 CARDIOLOGY Standard range: 2.0-3.0 High-intensity range: 2.5-3.5 Refer to indication-specific guidelines for appropriate target ranges for prosthetic heart valve replacement. Current interpretive data was last revised on 2019. Blood 08/28/2024 2:30 PM CDT 08/28/2024 2:58 PM CDT Narrative [facility] - 08/28/2024 3:26 PM CDT 1 hour after transfusion of Plasma completed. Zuleima Levine MD LAB BLOOD ORDERABLES Lila l Result Performing Organization Address City/[facility]/ZIP Co de Phone Number [facility] Department [place] [address] * Transfuse plasma Standard plasma (08/28/2024 12:29 PM CDT) Blood Zuleima Levine MD BLOOD TRANSFUSION ORDERAB LES Final Result [facility] Department [place] [address] * Prepare plasma: 2 Units Standard plasma (08/28/2024 10:04 AM CDT) [facility] Product code [id number] Unit Number [id number] [facility] Product Blood Type APOS [facility] Dispense Status PRESUMED TRANSFUSED [facility] Product [facility] [id number] [facility] Unit Number [id number] [facility] Product Blood Type APOS [facility] Dispense Status PRESUMED TRANSFUSED [facility] Blood Venous blood specimen / Unknown 08/28/2024 10:04 AM CDT 08/28/2024 10:04 AM CDT Narrative [facility] - 08/29/2024 12:40 PM CDT Is this plasma order intended for a COVID-19 patient as convalescent plasma?->Standard plasma Special Requirements Needed?->No Date required:-[id number] FFP # of Units:-2-Units Reasons:-Urgent invasive procedure, INR us Zuleima Levine MD BLOOD BANK PRODUCT ORDERA BLES Final Result Performing Organization Address [facility] Co de Phone Number [facility] [place] [address] * Potassium, whole blood (08/28/2024 9:19 AM CDT) Potassium, bld 3.4 3.3 - 4.9 mmol/L Blood 08/28/2024 9:19 AM CDT 08/28/2024 9:28 AM CDT Result [facility] Zuleima eLvine MD LAB BLOOD ORDERABLES Lila l Result Performing Organization Address [facility] de Phone Number [facility] [place] [address] * (ABNORMAL) Protime-INR (08/28/2024 9:19 AM CDT) PT 27.4(H) 9.7 - 13.0 sec INR 2.49(H) 0.90 - 1.20 [facility] Comment: Interpretive data Oral anticoagulant therapeutic ranges: Venous thromboembolism prophylaxis or treatment: 2.0-3.0 CARDIOLOGY Standard range: 2.0-3.0 High-intensity range: 2.5-3.5 Refer to indication-specific guidelines for appropriate target ranges for prosthetic heart valve replacement. Current interpretive data was last revised on 2019. Blood 08/28/2024 9:19 AM CDT 08/28/2024 9:33 AM CDT Result [facility] us Zuleima Levine MD LAB BLOOD ORDERABLES Lila l Result Performing Organization Address [facility] Co de Phone Number [facility] [place] [address] * Transfuse plasma Standard plasma (08/28/2024 8:41 AM CDT) Blood Result [facility] Zuleima Levine MD BLOOD TRANSFUSION ORDERAB LES Final Result Performing Organization Address [facility] [place] [address] * Prepare plasma: 1 Units Standard plasma (08/28/2024 6:40 AM CDT) Product code [id number] Unit Number [id number] [facility] Product Blood Type APOS [facility] Dispense Status PRESUMED TRANSFUSED [facility] Blood Venous blood specimen / Unknown 08/28/2024 6:40 AM CDT 08/28/2024 6:40 AM CDT Narrative [facility] - 08/28/2024 8:00 PM CDT Is this plasma order intended for a COVID-19 patient as convalescent plasma?->Standard plasma Special Requirements Needed?->No Date required:-[id number] FFP # of Units:-1-Units Reasons:-Urgent invasive procedure, INR Zuleima Levine MD BLOOD BANK PRODUCT ORDERA BLES Final Result Performing Organization Address [facility] [place] [address] * (ABNORMAL) Protime-INR (08/28/2024 6:05 AM CDT) PT 28.5(H) 9.7 - 13.0 sec INR 2.59(H) 0.90 - 1.20 [facility] Comment: Interpretive data Oral anticoagulant therapeutic ranges: Venous thromboembolism prophylaxis or treatment: 2.0-3.0 CARDIOLOGY Standard range: 2.0-3.0 High-intensity range: 2.5-3.5 Refer to indication-specific guidelines for appropriate target ranges for prosthetic heart valve replacement. Current interpretive data was last revised on 2019. Blood 08/28/2024 6:05 AM CDT 08/28/2024 6:14 AM CDT Donnie Castro MD LAB BLOOD ORDERABLES Final Result Performing Organization Address [facility] Co de Phone Number [facility] [place] [address] * Prepare plasma: 1 Units Standard plasma (08/28/2024 2:12 AM CDT) Product code [id number] Unit Number [id number] [facility] Product Blood Type APOS [facility] Dispense Status PRESUMED TRANSFUSED [facility] Blood Venous blood specimen / Unknown 08/28/2024 2:12 AM CDT 08/28/2024 2:12 AM CDT Narrative [facility] - 08/28/2024 4:01 PM CDT Is this plasma order intended for a COVID-19 patient as convalescent plasma?->Standard plasma Special Requirements Needed?->No Date required:-[id number] FFP # of Units:-1-Units Reasons:-Urgent invasive procedure, INR Zuleima Levine MD BLOOD BANK PRODUCT ORDERA BLES Final Result Performing Organization Address [facility] de Phone Number [facility] [place] [address] * eGFR (08/28/2024 1:32 AM CDT) eGFR [...] MD LAB BLOOD ORDERABLES Lila dawson Result [facility] [place] [address] * (ABNORMAL) Differential, auto (08/28/2024 1:32 AM CDT) Pathologist [facility] Neutrophil abs 1.95 1.50 - 6.50 K/cumm Imm gran abs 0.04 0.00 - 0.10 K/cumm [facility] Lymphocyte abs 0.19(L) 0.80 - 3.30 K/cumm [facility] Monocyte abs 0.67 0.20 - 0.80 K/cumm [facility] Eosinophil abs 0.14 0.00 - 0.50 K/cumm [facility] Basophil abs 0.00 0.00 - 0.10 K/cumm [facility] Neutrophil pct 65.2 % [facility] Comment: Interpretive Data Percent cell count reference ranges are not reported, since discordance with absolute values may lead to misinterpretation of CBC data. Current Interpretive Data was last revised on 2017. Imm gran pct 1.3 % [facility] Comment: Interpretive Data Percent cell count reference ranges are not reported, since discordance with absolute values may lead to misinterpretation of CBC data. Current Interpretive Data was last revised on 2017. Lymphocyte pct 6.4 % [facility] Comment: Interpretive Data Percent cell count reference ranges are not reported, since discordance with absolute values may lead to misinterpretation of CBC data. Current Interpretive Data was last revised on 2017. Monocyte pct 22.4 % [facility] Comment: Interpretive Data Percent cell count reference ranges are not reported, since discordance with absolute values may lead to misinterpretation of CBC data. Current Interpretive Data was last revised on 2017. Eosinophil pct 4.7 % [facility] Comment: Interpretive Data Percent cell count reference ranges are not reported, since discordance with absolute values may lead to misinterpretation of CBC data. Current Interpretive Data was last revised on 2017. Basophil pct 0.0 % [facility] Comment: Interpretive Data Percent cell count reference ranges are not reported, since discordance with absolute values may lead to misinterpretation of CBC data. Current Interpretive Data was last revised on 2017. Blood 08/28/2024 1:32 AM CDT 08/28/2024 1:48 AM CDT Smith Sawyer MD LAB BLOOD ORDERABLES Lila dawson Result [facility] [place] [address] * (ABNORMAL) CBC with auto differential (08/28/2024 1:32 AM CDT) WBC 2.99(L) 3.80 - 9.90 K/cumm Hgb 8.7(L) 13.0 - 17.5 g/dL [facility] Hct 24.8(L) 38.9 - 50.3 % [facility] Plt 91(L) 150 - 400 K/cumm [facility] MPV 10.0 9.1 - 12.3 fL [facility] RBC 2.30(L) 4.30 - 5.80 M/cumm [facility] MCV 107.8(H) 81.3 - 96.4 fL [facility] MCH 37.8(H) 27.1 - 33.3 pg [facility] MCHC 35.1 32.3 - 35.7 g/dL [facility] RDW CV 21.1(H) 11.1 - 14.9 % [facility] RDW SD 79.5(H) 35.7 - 48.1 fL [facility] NRBC abs 0.02(H) 0.00 - 0.01 K/cumm [facility] Blood 08/28/2024 1:32 AM CDT 08/28/2024 1:48 AM CDT Smith Sawyer MD LAB BLOOD ORDERABLES Lila l Result Performing Organization Address [facility] Co de Phone Number [facility] Department [place] [address] * (ABNORMAL) Protime-INR (08/28/2024 1:32 AM CDT) PT 32.7(H) 9.7 - 13.0 sec INR 2.96(H) 0.90 - 1.20 [facility] Comment: Interpretive data Oral anticoagulant therapeutic ranges: Venous thromboembolism prophylaxis or treatment: 2.0-3.0 CARDIOLOGY Standard range: 2.0-3.0 High-intensity range: 2.5-3.5 Refer to indication-specific guidelines for appropriate target ranges for prosthetic heart valve replacement. Current interpretive data was last revised on 2019. Blood 08/28/2024 1:32 AM CDT 08/28/2024 1:40 AM CDT Stewart Varghese MD LAB BLOOD ORDERABLES Lila l Result Performing Organization Address [facility] Co de Phone Number [facility] Department [place] [address] * Phosphorus (08/28/2024 1:32 AM CDT) Phosphorus, pl 2.9 2.3 - 4.5 mg/dL Blood 08/28/2024 1:32 AM CDT 08/28/2024 1:48 AM CDT us Smith Saweyr MD LAB BLOOD ORDERABLES Lila dawson Result [facility] Department [place] [address] * (ABNORMAL) Comprehensive metabolic panel (08/28/2024 1:32 AM CDT) Sodium 141 135 - 145 mmol/L Potassium, pl 3.0(L) 3.3 - 4.9 mmol/L [facility] Chloride 112(H) 97 - 110 mmol/L [facility] CO2 21(L) 22 - 32 mmol/L [facility] Anion gap 8 2 - 15 mmol/L [facility] BUN 26(H) 6 - 25 mg/dL [facility] Creatinine 1.01 0.80 - 1.30 mg/dL [facility] Glucose 88 70 - 199 mg/dL [facility] Comment: Interpretive Data Fasting glucose >/= 126 [...] 2022. Calcium 7.7(L) 8.5 - 10.3 mg/dL [facility] Bilirubin, total 0.5 0.1 - 1.2 mg/dL [facility] Protein, pl 4.4(L) 6.5 - 8.5 g/dL [facility] Albumin 2.7(L) 3.5 - 5.0 g/dL [facility] Alk phos 60 40 - 130 Units/L [facility] ALT 23 7 - 55 Units/L [facility] AST 39 10 - 50 Units/L [facility] Blood 08/28/2024 1:32 AM CDT 08/28/2024 1:48 AM CDT Smith Sawyer MD LAB BLOOD ORDERABLES Lila l Result Performing Organization Address [facility] de Phone Number [facility] [place] [address] * Rotavirus antigen Stool (08/27/2024 10:04 AM CDT) Rotavirus Ag Negative Negative Comment: Interpretative Data Testing performed at the [facility] using antigen detection with Xpect Rotavirus lateral flow assay. This test is cleared by the [place] Food and Drug Administration for fresh stool specimens. The performance characteristics have been verified by the [facility]. A negative result does not [...] L ORDERABLES Final Result Performing Organization Address [facility] de Phone Number [facility] Department [place] [address] * eGFR (08/27/2024 12:29 AM CDT) eGFR [...] MD LAB BLOOD ORDERABLES Lila dawson Result [facility] Department [place] [address] * (ABNORMAL) Differential, auto (08/27/2024 12:29 AM CDT) Pathologist [facility] Neutrophil abs 1.83 1.50 - 6.50 K/cumm Imm gran abs 0.04 0.00 - 0.10 K/cumm [facility] Lymphocyte abs 0.12(L) 0.80 - 3.30 K/cumm [facility] Monocyte abs 0.69 0.20 - 0.80 K/cumm [facility] Eosinophil abs 0.07 0.00 - 0.50 K/cumm [facility] Basophil abs 0.01 0.00 - 0.10 K/cumm [facility] Neutrophil pct 66.4 % [facility] Comment: Interpretive Data Percent cell count reference ranges are not reported, since discordance with absolute values may lead to misinterpretation of CBC data. Current Interpretive Data was last revised on 2017. Imm gran pct 1.4 % [facility] Comment: Interpretive Data Percent cell count reference ranges are not reported, since discordance with absolute values may lead to misinterpretation of CBC data. Current Interpretive Data was last revised on 2017. Lymphocyte pct 4.3 % [facility] Comment: Interpretive Data Percent cell count reference ranges are not reported, since discordance with absolute values may lead to misinterpretation of CBC data. Current Interpretive Data was last revised on 2017. Monocyte pct 25.0 % [facility] Comment: Interpretive Data Percent cell count reference ranges are not reported, since discordance with absolute values may lead to misinterpretation of CBC data. Current Interpretive Data was last revised on 2017. Eosinophil pct 2.5 % [facility] Comment: Interpretive Data Percent cell count reference ranges are not reported, since discordance with absolute values may lead to misinterpretation of CBC data. Current Interpretive Data was last revised on 2017. Basophil pct 0.4 % [facility] Comment: Interpretive Data Percent cell count reference ranges are not reported, since discordance with absolute values may lead to misinterpretation of CBC data. Current Interpretive Data was last revised on 2017. Blood 08/27/2024 12:2 9 AM CDT 08/27/2024 12:43 AM CDT Smith Sawyer MD LAB BLOOD ORDERABLES Lila dawson Result [facility] Department [place] [address] * (ABNORMAL) CBC with auto differential (08/27/2024 12:29 AM CDT) WBC 2.76(L) 3.80 - 9.90 K/cumm Hgb 9.0(L) 13.0 - 17.5 g/dL [facility] Hct 25.4(L) 38.9 - 50.3 % [facility] Plt 112(L) 150 - 400 K/cumm [facility] MPV 10.0 9.1 - 12.3 fL [facility] RBC 2.41(L) 4.30 - 5.80 M/cumm [facility] MCV 105.4(H) 81.3 - 96.4 fL [facility] MCH 37.3(H) 27.1 - 33.3 pg [facility] MCHC 35.4 32.3 - 35.7 g/dL [facility] RDW CV 19.9(H) 11.1 - 14.9 % [facility] RDW SD 73.0(H) 35.7 - 48.1 fL [facility] NRBC abs 0.05(H) 0.00 - 0.01 K/cumm [facility] Blood 08/27/2024 12:2 9 AM CDT 08/27/2024 12:43 AM CDT Smith Sawyer MD LAB BLOOD ORDERABLES Lila l Result Performing Organization Address [facility] Co de Phone Number [facility] [place] [address] * (ABNORMAL) Protime-INR (08/27/2024 12:29 AM CDT) PT 27.0(H) 9.7 - 13.0 sec INR 2.45(H) 0.90 - 1.20 [facility] Comment: Interpretive data Oral anticoagulant therapeutic ranges: Venous thromboembolism prophylaxis or treatment: 2.0-3.0 CARDIOLOGY Standard range: 2.0-3.0 High-intensity range: 2.5-3.5 Refer to indication-specific guidelines for appropriate target ranges for prosthetic heart valve replacement. Current interpretive data was last revised on 2019. Blood 08/27/2024 12:2 9 AM CDT 08/27/2024 12:49 AM CDT Stewart Varghese MD LAB BLOOD ORDERABLES Lila l Result Performing Organization Address [facility] Co de Phone Number [facility] Department [place] [address] * Type and screen (08/27/2024 12:29 AM CDT) ABO Rh A Positive Minna, indirect Negative [facility] Blood 08/27/2024 12:2 9 AM CDT 08/27/2024 12:46 AM CDT Narrative [facility] - 08/27/2024 2:10 AM CDT Has the patient had Daratumumab or Isatuximab in the past 6 months?->Unknown Smith Sawyer MD LAB BLOOD BANK TEST ORDER DEMETRIO Final Result Performing Organization Address [facility] Co de Phone Number [facility] [place] [address] * Uric acid (08/27/2024 12:29 AM CDT) Uric acid 6.9 3.0 - 8.0 mg/dL Blood 08/27/2024 12:2 9 AM CDT 08/27/2024 12:43 AM CDT [facility]ative [facility] - 08/27/2024 1:11 AM CDT Saturday and only. Morning draw. . Smith Sawyer MD LAB BLOOD ORDERABLES Lila l Result Performing Organization Address [facility] Co de Phone Number [facility] [place] [address] * (ABNORMAL) Phosphorus (08/27/2024 12:29 AM CDT) Phosphorus, pl 2.2(L) 2.3 - 4.5 mg/dL Blood 08/27/2024 12:2 9 AM CDT 08/27/2024 12:43 AM CDT Smith Sawyer MD LAB BLOOD ORDERABLES Lila l Result Performing Organization Address [facility] Co de Phone Number [facility] [place] [address] * Magnesium (08/27/2024 12:29 AM CDT) Magnesium 1.7 1.4 - 2.5 mg/dL Blood 08/27/2024 12:2 9 AM CDT 08/27/2024 12:43 AM CDT Zuleima Levine MD LAB BLOOD ORDERABLES Lila l Result Performing Organization Address [facility] de Phone Number [facility] Department [place] [address] * (ABNORMAL) Lactate dehydrogenase (LD) (08/27/2024 12:29 AM CDT) [facility] Lactate dehydrogenase (LDH) 296(H) 100 - 250 Units/L Blood 08/27/2024 12:2 9 AM CDT 08/27/2024 12:43 AM CDT Narrative [facility] - 08/27/2024 1:11 AM CDT Saturday and only. Morning draw. Smith Sawyer MD LAB BLOOD ORDERABLES Lila l Result Performing Organization Address [facility] de Phone Number [facility] Department [place] [address] * (ABNORMAL) Comprehensive metabolic panel (08/27/2024 12:29 AM CDT) [facility] Sodium 142 135 - 145 mmol/L Potassium, pl 3.4 3.3 - 4.9 mmol/L [facility] Chloride 112(H) 97 - 110 mmol/L [facility] CO2 19(L) 22 - 32 mmol/L [facility] Anion gap 11 2 - 15 mmol/L [facility] BUN 29(H) 6 - 25 mg/dL [facility] Creatinine 1.01 0.80 - 1.30 mg/dL [facility] Glucose 116 70 - 199 mg/dL [facility] Comment: Interpretive Data Fasting glucose >/= 126 [...] 2022. Calcium 7.8(L) 8.5 - 10.3 mg/dL [facility] Bilirubin, total 0.6 0.1 - 1.2 mg/dL [facility] Protein, pl 4.8(L) 6.5 - 8.5 g/dL [facility] Albumin 3.0(L) 3.5 - 5.0 g/dL [facility] Alk phos 68 40 - 130 Units/L [facility] ALT 20 7 - 55 Units/L [facility] AST 37 10 - 50 Units/L [facility] Blood 08/27/2024 12:2 9 AM CDT 08/27/2024 12:43 AM CDT us Smith Sawyer MD LAB BLOOD ORDERABLES Lila l Result Performing Organization Address [facility] Co de Phone Number [facility] [place] [address] * (ABNORMAL) Protime-INR (08/26/2024 5:32 PM CDT) PT 23.9(H) 9.7 - 13.0 sec INR 2.18(H) 0.90 - 1.20 [facility] Comment: Interpretive data Oral anticoagulant therapeutic ranges: Venous thromboembolism prophylaxis or treatment: 2.0-3.0 CARDIOLOGY Standard range: 2.0-3.0 High-intensity range: 2.5-3.5 Refer to indication-specific guidelines for appropriate target ranges for prosthetic heart valve replacement. Current interpretive data was last revised on 2019. Blood 08/26/2024 5:32 PM CDT 08/26/2024 5:54 PM CDT Zuleima Levine MD LAB BLOOD ORDERABLES Lila l Result Performing Organization Address [facility]/State/ZIP Co de Phone Number [facility] [place] [address] * eGFR (08/26/2024 2:08 AM CDT) Pathologist [facility] eGFR 64 >=60 mL/min/1. 73 m2 Comment: [...] LAB BLOOD ORDERABLES Lila dawson Result [facility] Department [place] [address] * (ABNORMAL) Differential, auto (08/26/2024 2:08 AM CDT) Pathologist [facility] Neutrophil abs 3.03 1.50 - 6.50 K/cumm Imm gran abs 0.06 0.00 - 0.10 K/cumm [facility] Lymphocyte abs 0.27(L) 0.80 - 3.30 K/cumm [facility] Monocyte abs 0.85(H) 0.20 - 0.80 K/cumm [facility] Eosinophil abs 0.13 0.00 - 0.50 K/cumm [facility] Basophil abs 0.01 0.00 - 0.10 K/cumm [facility] Neutrophil pct 69.7 % [facility] Comment: Interpretive Data Percent cell count reference ranges are not reported, since discordance with absolute values may lead to misinterpretation of CBC data. Current Interpretive Data was last revised on 2017. Imm gran pct 1.4 % [facility] Comment: Interpretive Data Percent cell count reference ranges are not reported, since discordance with absolute values may lead to misinterpretation of CBC data. Current Interpretive Data was last revised on 2017. Lymphocyte pct 6.2 % [facility] Comment: Interpretive Data Percent cell count reference ranges are not reported, since discordance with absolute values may lead to misinterpretation of CBC data. Current Interpretive Data was last revised on 2017. Monocyte pct 19.5 % [facility] Comment: Interpretive Data Percent cell count reference ranges are not reported, since discordance with absolute values may lead to misinterpretation of CBC data. Current Interpretive Data was last revised on 2017. Eosinophil pct 3.0 % [facility] Comment: Interpretive Data Percent cell count reference ranges are not reported, since discordance with absolute values may lead to misinterpretation of CBC data. Current Interpretive Data was last revised on 2017. Basophil pct 0.2 % [facility] Comment: Interpretive Data Percent cell count reference ranges are not reported, since discordance with absolute values may lead to misinterpretation of CBC data. Current Interpretive Data was last revised on 2017. Blood 08/26/2024 2:08 AM CDT 08/26/2024 2:24 AM CDT us Smith Sawyer MD LAB BLOOD ORDERABLES Lila dawson Result [facility] [place] [address] * (ABNORMAL) CBC with auto differential (08/26/2024 2:08 AM CDT) WBC 4.35 3.80 - 9.90 K/cumm Hgb 9.3(L) 13.0 - 17.5 g/dL [facility] Hct 25.9(L) 38.9 - 50.3 % [facility] Plt 134(L) 150 - 400 K/cumm [facility] MPV 9.8 9.1 - 12.3 fL [facility] RBC 2.47(L) 4.30 - 5.80 M/cumm [facility] MCV 104.9(H) 81.3 - 96.4 fL [facility] MCH 37.7(H) 27.1 - 33.3 pg [facility] MCHC 35.9(H) 32.3 - 35.7 g/dL [facility] RDW CV 19.6(H) 11.1 - 14.9 % [facility] RDW SD 71.3(H) 35.7 - 48.1 fL [facility] NRBC abs 0.08(H) 0.00 - 0.01 K/cumm [facility] Blood 08/26/2024 2:08 AM CDT 08/26/2024 2:24 AM CDT us Smith Sawyer MD LAB BLOOD ORDERABLES Lila dawson Result [facility] [place] [address] * (ABNORMAL) Protime-INR (08/26/2024 2:08 AM CDT) PT 18.4(H) 9.7 - 13.0 sec INR 1.69(H) 0.90 - 1.20 [facility] Comment: Interpretive data Oral anticoagulant therapeutic ranges: Venous thromboembolism prophylaxis or treatment: 2.0-3.0 CARDIOLOGY Standard range: 2.0-3.0 High-intensity range: 2.5-3.5 Refer to indication-specific guidelines for appropriate target ranges for prosthetic heart valve replacement. Current interpretive data was last revised on 2019. Blood 08/26/2024 2:08 AM CDT 08/26/2024 2:30 AM CDT us Stewart Varghese MD LAB BLOOD ORDERABLES Lila l Result Performing Organization Address City/[facility]/ZIP Co de Phone Number [facility] [place] [address] * Phosphorus (08/26/2024 2:08 AM CDT) Phosphorus, pl 3.4 2.3 - 4.5 mg/dL Blood 08/26/2024 2:08 AM CDT 08/26/2024 2:24 AM CDT us Smith Sawyer MD LAB BLOOD ORDERABLES Lila l Result Performing Organization Address [facility] Co de Phone Number [facility] [place] [address] * Magnesium (08/26/2024 2:08 AM CDT) [facility] Magnesium 1.8 1.4 - 2.5 mg/dL Blood 08/26/2024 2:08 AM CDT 08/26/2024 2:24 AM CDT us Zuleima Levine MD LAB BLOOD ORDERABLES Lila l Result Performing Organization Address [facility] Co de Phone Number [facility] [place] [address] * (ABNORMAL) Comprehensive metabolic panel (08/26/2024 2:08 AM CDT) Sodium 140 135 - 145 mmol/L Potassium, pl 3.1(L) 3.3 - 4.9 mmol/L [facility] Chloride 109 97 - 110 mmol/L [facility] CO2 20(L) 22 - 32 mmol/L [facility] Anion gap 11 2 - 15 mmol/L [facility] BUN 36(H) 6 - 25 mg/dL [facility] Creatinine 1.18 0.80 - 1.30 mg/dL [facility] Glucose 107 70 - 199 mg/dL [facility] Comment: Interpretive Data Fasting glucose >/= 126 [...] 2022. Calcium 8.1(L) 8.5 - 10.3 mg/dL [facility] Bilirubin, total 0.7 0.1 - 1.2 mg/dL [facility] Protein, pl 5.1(L) 6.5 - 8.5 g/dL [facility] Albumin 3.1(L) 3.5 - 5.0 g/dL [facility] Alk phos 78 40 - 130 Units/L [facility] ALT 19 7 - 55 Units/L [facility] AST 33 10 - 50 Units/L [facility] Blood 08/26/2024 2:08 AM CDT 08/26/2024 2:24 AM CDT Smith Sawyer MD LAB BLOOD ORDERABLES Lila dawson Result [facility] Department [place] [address] * eGFR (08/25/2024 2:06 AM CDT) eGFR [...] MD LAB BLOOD ORDERABLES Lila dawson Result [facility] [place] [address] * (ABNORMAL) Differential, auto (08/25/2024 2:06 AM CDT) Neutrophil abs 2.52 1.50 - 6.50 K/cumm Imm gran abs 0.03 0.00 - 0.10 K/cumm [facility] Lymphocyte abs 0.26(L) 0.80 - 3.30 K/cumm [facility] Monocyte abs 0.72 0.20 - 0.80 K/cumm [facility] Eosinophil abs 0.06 0.00 - 0.50 K/cumm [facility] Basophil abs 0.00 0.00 - 0.10 K/cumm [facility] Neutrophil pct 70.2 % [facility] Comment: Interpretive Data Percent cell count reference ranges are not reported, since discordance with absolute values may lead to misinterpretation of CBC data. Current Interpretive Data was last revised on 2017. Imm gran pct 0.8 % [facility] Comment: Interpretive Data Percent cell count reference ranges are not reported, since discordance with absolute values may lead to misinterpretation of CBC data. Current Interpretive Data was last revised on 2017. Lymphocyte pct 7.2 % [facility] Comment: Interpretive Data Percent cell count reference ranges are not reported, since discordance with absolute values may lead to misinterpretation of CBC data. Current Interpretive Data was last revised on 2017. Monocyte pct 20.1 % [facility] Comment: Interpretive Data Percent cell count reference ranges are not reported, since discordance with absolute values may lead to misinterpretation of CBC data. Current Interpretive Data was last revised on 2017. Eosinophil pct 1.7 % [facility] Comment: Interpretive Data Percent cell count reference ranges are not reported, since discordance with absolute values may lead to misinterpretation of CBC data. Current Interpretive Data was last revised on 2017. Basophil pct 0.0 % [facility] Comment: Interpretive Data Percent cell count reference ranges are not reported, since discordance with absolute values may lead to misinterpretation of CBC data. Current Interpretive Data was last revised on 2017. Blood 08/25/2024 2:06 AM CDT 08/25/2024 2:27 AM CDT Smith Sawyer MD LAB BLOOD ORDERABLES Lila dawson Result [facility] Department [place] [address] * (ABNORMAL) CBC with auto differential (08/25/2024 2:06 AM CDT) WBC 3.59(L) 3.80 - 9.90 K/cumm Hgb 9.4(L) 13.0 - 17.5 g/dL [facility] Hct 26.9(L) 38.9 - 50.3 % [facility] Plt 149(L) 150 - 400 K/cumm [facility] MPV 9.8 9.1 - 12.3 fL [facility] RBC 2.54(L) 4.30 - 5.80 M/cumm [facility] MCV 105.9(H) 81.3 - 96.4 fL [facility] MCH 37.0(H) 27.1 - 33.3 pg [facility] MCHC 34.9 32.3 - 35.7 g/dL [facility] RDW CV 19.0(H) 11.1 - 14.9 % [facility] RDW SD 66.2(H) 35.7 - 48.1 fL [facility] NRBC abs 0.04(H) 0.00 - 0.01 K/cumm [facility] Blood 08/25/2024 2:06 AM CDT 08/25/2024 2:27 AM CDT Smith Sawyer MD LAB BLOOD ORDERABLES Lila l Result Performing Organization Address [facility] Co de Phone Number [facility] Department [place] [address] * (ABNORMAL) Protime-INR (08/25/2024 2:06 AM CDT) PT 14.6(H) 9.7 - 13.0 sec INR 1.34(H) 0.90 - 1.20 [facility] Comment: Interpretive data Oral anticoagulant therapeutic ranges: Venous thromboembolism prophylaxis or treatment: 2.0-3.0 CARDIOLOGY Standard range: 2.0-3.0 High-intensity range: 2.5-3.5 Refer to indication-specific guidelines for appropriate target ranges for prosthetic heart valve replacement. Current interpretive data was last revised on 2019. Blood 08/25/2024 2:06 AM CDT 08/25/2024 2:34 AM CDT Stewart Varghese MD LAB BLOOD ORDERABLES Lila l Result Performing Organization Address City/[facility] Co de Phone Number [facility] Department [place] [address] * Phosphorus (08/25/2024 2:06 AM CDT) Phosphorus, pl 3.6 2.3 - 4.5 mg/dL Blood 08/25/2024 2:06 AM CDT 08/25/2024 2:26 AM CDT us Smith Sawyer MD LAB BLOOD ORDERABLES Lila dawson Result [facility] Department [place] [address] * (ABNORMAL) Comprehensive metabolic panel (08/25/2024 2:06 AM CDT) Sodium 142 135 - 145 mmol/L Potassium, pl 3.4 3.3 - 4.9 mmol/L [facility] Chloride 111(H) 97 - 110 mmol/L [facility] CO2 21(L) 22 - 32 mmol/L [facility] Anion gap 10 2 - 15 mmol/L [facility] BUN 38(H) 6 - 25 mg/dL [facility] Creatinine 1.17 0.80 - 1.30 mg/dL [facility] Glucose 121 70 - 199 mg/dL [facility] Comment: Interpretive Data Fasting glucose >/= 126 [...] 2022. Calcium 8.3(L) 8.5 - 10.3 mg/dL [facility] Bilirubin, total 0.7 0.1 - 1.2 mg/dL [facility] Protein, pl 5.1(L) 6.5 - 8.5 g/dL [facility] Albumin 3.2(L) 3.5 - 5.0 g/dL [facility] Alk phos 78 40 - 130 Units/L [facility] ALT 16 7 - 55 Units/L [facility] AST 29 10 - 50 Units/L [facility] Blood 08/25/2024 2:06 AM CDT 08/25/2024 2:26 AM CDT Smith Sawyer MD LAB BLOOD ORDERABLES Lila l Result Performing Organization Address [facility] Co de Phone Number [facility] [place] [address] * eGFR (08/24/2024 3:33 AM CDT) Pathologist [facility] eGFR 62 >=60 mL/min/1. 73 m2 Comment: [...] ORDERABLES Lila l Result Performing Organization Address City/[facility] Co de Phone Number [facility] [place] [address] * (ABNORMAL) Differential, auto (08/24/2024 3:33 AM CDT) Pathologist [facility] Neutrophil abs 2.28 1.50 - 6.50 K/cumm Imm gran abs 0.03 0.00 - 0.10 K/cumm [facility] Lymphocyte abs 0.30(L) 0.80 - 3.30 K/cumm [facility] Monocyte abs 0.76 0.20 - 0.80 K/cumm [facility] Eosinophil abs 0.02 0.00 - 0.50 K/cumm [facility] Basophil abs 0.01 0.00 - 0.10 K/cumm [facility] Neutrophil pct 67.0 % [facility] Comment: Interpretive Data Percent cell count reference ranges are not reported, since discordance with absolute values may lead to misinterpretation of CBC data. Current Interpretive Data was last revised on 2017. Imm gran pct 0.9 % [facility] Comment: Interpretive Data Percent cell count reference ranges are not reported, since discordance with absolute values may lead to misinterpretation of CBC data. Current Interpretive Data was last revised on 2017. Lymphocyte pct 8.8 % [facility] Comment: Interpretive Data Percent cell count reference ranges are not reported, since discordance with absolute values may lead to misinterpretation of CBC data. Current Interpretive Data was last revised on 2017. Monocyte pct 22.4 % [facility] Comment: Interpretive Data Percent cell count reference ranges are not reported, since discordance with absolute values may lead to misinterpretation of CBC data. Current Interpretive Data was last revised on 2017. Eosinophil pct 0.6 % [facility] Comment: Interpretive Data Percent cell count reference ranges are not reported, since discordance with absolute values may lead to misinterpretation of CBC data. Current Interpretive Data was last revised on 2017. Basophil pct 0.3 % [facility] Comment: Interpretive Data Percent cell count reference ranges are not reported, since discordance with absolute values may lead to misinterpretation of CBC data. Current Interpretive Data was last revised on 2017. Blood 08/24/2024 3:33 AM CDT 08/24/2024 4:14 AM CDT us Smith Sawyer MD LAB BLOOD ORDERABLES Lila dawson Result [facility] Department [place] [address] * (ABNORMAL) CBC with auto differential (08/24/2024 3:33 AM CDT) Pathologist [facility] WBC 3.40(L) 3.80 - 9.90 K/cumm Hgb 9.4(L) 13.0 - 17.5 g/dL [facility] Hct 26.3(L) 38.9 - 50.3 % [facility] Plt 162 150 - 400 K/cumm [facility] MPV 9.5 9.1 - 12.3 fL [facility] RBC 2.52(L) 4.30 - 5.80 M/cumm [facility] MCV 104.4(H) 81.3 - 96.4 fL [facility] MCH 37.3(H) 27.1 - 33.3 pg [facility] MCHC 35.7 32.3 - 35.7 g/dL [facility] RDW CV 18.5(H) 11.1 - 14.9 % [facility] RDW SD 62.8(H) 35.7 - 48.1 fL [facility] NRBC abs 0.04(H) 0.00 - 0.01 K/cumm [facility] Blood 08/24/2024 3:33 AM CDT 08/24/2024 4:14 AM CDT Smith Sawyer MD LAB BLOOD ORDERABLES Lila dawson Result [facility] Department [place] [address] * aPTT (08/24/2024 3:33 AM CDT) Pathologist [facility] aPTT 34 28 - 38 sec Comment: Interpretive Data Heparin therapeutic range: 66.0 - 100.0 seconds. Range based on correlation with therapeutic heparin activity range of 0.3 - 0.7 Units/mL. Current interpretive data was last revised on 2023. Blood 08/24/2024 3:33 AM CDT 08/24/2024 4:12 AM CDT Smith Sawyer MD LAB BLOOD ORDERABLES Lila l Result Performing Organization Address City/[facility]/ZIP Co de Phone Number [facility] [place] [address] * (ABNORMAL) Protime-INR (08/24/2024 3:33 AM CDT) PT 17.8(H) 9.7 - 13.0 sec INR 1.63(H) 0.90 - 1.20 [facility] Comment: Interpretive data Oral anticoagulant therapeutic ranges: Venous thromboembolism prophylaxis or treatment: 2.0-3.0 CARDIOLOGY Standard range: 2.0-3.0 High-intensity range: 2.5-3.5 Refer to indication-specific guidelines for appropriate target ranges for prosthetic heart valve replacement. Current interpretive data was last revised on 2019. Blood 08/24/2024 3:33 AM CDT 08/24/2024 4:12 AM CDT Smith Sawyer MD LAB BLOOD ORDERABLES Lila l Result Performing Organization Address [facility] [place] [address] * Type and screen (08/24/2024 3:33 AM CDT) ABO Rh A Positive Minna, indirect Negative [facility] Blood 08/24/2024 3:33 AM CDT 08/24/2024 3:48 AM CDT Narrative [facility] - 08/24/2024 4:35 AM CDT Has the patient had Daratumumab or Isatuximab in the past 6 months?->Unknown Smith Sawyer MD LAB BLOOD BANK TEST ORDER DEMETRIO Final Result Performing Organization Address City/[facility]/ZIP Co de Phone Number [facility] [place] [address] * Uric acid (08/24/2024 3:33 AM CDT) [facility] Uric acid 7.6 3.0 - 8.0 mg/dL Blood 08/24/2024 3:33 AM CDT 08/24/2024 4:13 AM CDT Narrative [facility] - 08/24/2024 4:41 AM CDT Saturday and only. Morning draw. . Smith Sawyer MD LAB BLOOD ORDERABLES Lila l Result Performing Organization Address City/[facility]/ZIP Co de Phone Number [facility] [place] [address] * Phosphorus (08/24/2024 3:33 AM CDT) [facility] Phosphorus, pl 3.4 2.3 - 4.5 mg/dL Blood 08/24/2024 3:33 AM CDT 08/24/2024 4:13 AM CDT Smith Sawyer MD LAB BLOOD ORDERABLES Lila l Result Performing Organization Address [facility] Co de Phone Number [facility] [place] [address] * (ABNORMAL) Lactate dehydrogenase (LD) (08/24/2024 3:33 AM CDT) [facility] Lactate dehydrogenase (LDH) 302(H) 100 - 250 Units/L Blood 08/24/2024 3:33 AM CDT 08/24/2024 4:13 AM CDT Narrative [facility] - 08/24/2024 4:41 AM CDT Saturday and only. Morning draw. Smith Sawyer MD LAB BLOOD ORDERABLES Lila l Result Performing Organization Address City/[facility] Co de Phone Number [facility] [place] [address] * (ABNORMAL) Comprehensive metabolic panel (08/24/2024 3:33 AM CDT) Sodium 139 135 - 145 mmol/L Potassium, pl 3.4 3.3 - 4.9 mmol/L [facility] Chloride 108 97 - 110 mmol/L [facility] CO2 19(L) 22 - 32 mmol/L [facility] Anion gap 12 2 - 15 mmol/L [facility] BUN 39(H) 6 - 25 mg/dL [facility] Creatinine 1.21 0.80 - 1.30 mg/dL [facility] Glucose 113 70 - 199 mg/dL [facility] Comment: Interpretive Data Fasting glucose >/= 126 [...] 2022. Calcium 8.6 8.5 - 10.3 mg/dL [facility] Bilirubin, total 0.8 0.1 - 1.2 mg/dL [facility] Protein, pl 5.2(L) 6.5 - 8.5 g/dL [facility] Albumin 3.1(L) 3.5 - 5.0 g/dL [facility] Alk phos 75 40 - 130 Units/L [facility] ALT 15 7 - 55 Units/L [facility] AST 29 10 - 50 Units/L [facility] Blood 08/24/2024 3:33 AM CDT 08/24/2024 4:13 AM CDT us Simth Sawyer MD LAB BLOOD ORDERABLES Lila dawson Result [facility] [place] [address] * Critical Result Callback Hematology (08/23/2024 8:31 AM CDT) Date Notified [id number] Time Notified 939 [facility] TestName INR [facility] Called/Read Back Trish [facility] Credentials RN [facility] Called By TP [facility] Blood 08/23/2024 8:31 AM CDT 08/23/2024 8:48 AM CDT Stewart Varghese MD LAB BLOOD ORDERABLES Lila l Result Performing Organization Address City/[facility] Co de Phone Number [facility] [place] [address] * (ABNORMAL) aPTT (08/23/2024 8:31 AM CDT) [...] ORDERABLES Lila l Result Performing Organization Address City/[facility] Co de Phone Number [facility] Department [place] [address] * (ABNORMAL) Thrombin time (08/23/2024 8:31 AM CDT) Thrombin time 15.3(H) 10.0 - 15.0 sec Blood 08/23/2024 8:31 AM CDT 08/23/2024 8:48 AM CDT Stewart Varghese MD LAB BLOOD ORDERABLES Lila l Result Performing Organization Address City/[facility] Co de Phone Number [facility] [place] [address] * (ABNORMAL) Protime-INR (08/23/2024 8:31 AM CDT) PT >100.0(H) 9.7 - 13.0 sec Comment: Verified No clot detected in sample. INR >9.00(C) 0.90 - 1.20 [facility] Comment: Verified No clot detected in sample. [...] ORDERABLES Lila l Result Performing Organization Address [facility] Co de Phone Number [facility] Department [place] [address] * eGFR (08/23/2024 12:33 AM CDT) eGFR [...] MD LAB BLOOD ORDERABLES Lila eunice Result [facility] [place] [address] * (ABNORMAL) Differential, auto (08/23/2024 12:33 AM CDT) Pathologist [facility] Neutrophil abs 3.43 1.50 - 6.50 K/cumm Imm gran abs 0.02 0.00 - 0.10 K/cumm [facility] Lymphocyte abs 0.19(L) 0.80 - 3.30 K/cumm [facility] Monocyte abs 0.78 0.20 - 0.80 K/cumm [facility] Eosinophil abs 0.00 0.00 - 0.50 K/cumm [facility] Basophil abs 0.00 0.00 - 0.10 K/cumm [facility] Neutrophil pct 77.6 % [facility] Comment: Interpretive Data Percent cell count reference ranges are not reported, since discordance with absolute values may lead to misinterpretation of CBC data. Current Interpretive Data was last revised on 2017. Imm gran pct 0.5 % [facility] Comment: Interpretive Data Percent cell count reference ranges are not reported, since discordance with absolute values may lead to misinterpretation of CBC data. Current Interpretive Data was last revised on 2017. Lymphocyte pct 4.3 % [facility] Comment: Interpretive Data Percent cell count reference ranges are not reported, since discordance with absolute values may lead to misinterpretation of CBC data. Current Interpretive Data was last revised on 2017. Monocyte pct 17.6 % [facility] Comment: Interpretive Data Percent cell count reference ranges are not reported, since discordance with absolute values may lead to misinterpretation of CBC data. Current Interpretive Data was last revised on 2017. Eosinophil pct 0.0 % [facility] Comment: Interpretive Data Percent cell count reference ranges are not reported, since discordance with absolute values may lead to misinterpretation of CBC data. Current Interpretive Data was last revised on 2017. Basophil pct 0.0 % [facility] Comment: Interpretive Data Percent cell count reference ranges are not reported, since discordance with absolute values may lead to misinterpretation of CBC data. Current Interpretive Data was last revised on 2017. Blood 08/23/2024 12:3 3 AM CDT 08/23/2024 12:55 AM CDT us Smith Sawyer MD LAB BLOOD ORDERABLES Lial dawson Result [facility] [place] [address] * (ABNORMAL) CBC with auto differential (08/23/2024 12:33 AM CDT) WBC 4.42 3.80 - 9.90 K/cumm Hgb 9.2(L) 13.0 - 17.5 g/dL [facility] Hct 25.8(L) 38.9 - 50.3 % [facility] Plt 183 150 - 400 K/cumm [facility] MPV 9.6 9.1 - 12.3 fL [facility] RBC 2.51(L) 4.30 - 5.80 M/cumm [facility] MCV 102.8(H) 81.3 - 96.4 fL [facility] MCH 36.7(H) 27.1 - 33.3 pg [facility] MCHC 35.7 32.3 - 35.7 g/dL [facility] RDW CV 18.0(H) 11.1 - 14.9 % [facility] RDW SD 61.4(H) 35.7 - 48.1 fL [facility] NRBC abs 0.04(H) 0.00 - 0.01 K/cumm [facility] Blood 08/23/2024 12:3 3 AM CDT 08/23/2024 12:55 AM CDT Smith Sawyer MD LAB BLOOD ORDERABLES Lila l Result [facility] [place] [address] * Phosphorus (08/23/2024 12:33 AM CDT) Pathologist [facility] Phosphorus, pl 3.3 2.3 - 4.5 mg/dL Blood 08/23/2024 12:3 3 AM CDT 08/23/2024 12:55 AM CDT Smith Sawyer MD LAB BLOOD ORDERABLES Lila l Result Performing Organization Address [facility] de Phone Number [facility] [place] [address] * (ABNORMAL) Comprehensive metabolic panel (08/23/2024 12:33 AM CDT) [facility] Sodium 139 135 - 145 mmol/L Potassium, pl 3.9 3.3 - 4.9 mmol/L [facility] Chloride 107 97 - 110 mmol/L [facility] CO2 21(L) 22 - 32 mmol/L [facility] Anion gap 11 2 - 15 mmol/L [facility] BUN 38(H) 6 - 25 mg/dL [facility] Creatinine 1.22 0.80 - 1.30 mg/dL [facility] Glucose 160 70 - 199 mg/dL [facility] Comment: Interpretive Data Fasting glucose >/= 126 [...] 2022. Calcium 8.8 8.5 - 10.3 mg/dL [facility] Bilirubin, total 0.7 0.1 - 1.2 mg/dL [facility] Protein, pl 5.5(L) 6.5 - 8.5 g/dL [facility] Albumin 3.6 3.5 - 5.0 g/dL [facility] Alk phos 77 40 - 130 Units/L [facility] ALT 17 7 - 55 Units/L [facility] AST 25 10 - 50 Units/L [facility] Blood 08/23/2024 12:3 3 AM CDT 08/23/2024 12:55 AM CDT us Smith Sawyer MD LAB BLOOD ORDERABLES Lila dawson Result Performing Organization Address City/[facility] Co de Phone Number [facility] [place] [address] * -Miscellaneous Molecular Send-Out Request (08/22/2024 3:01 PM CDT) Result 1 Test Name: Dihydropyrimidine Dehydrogenase Gene Full Sequencing ([place]) Specimen Type: PB Result: See attached scanned report for results. Test name Dihydropyrimidine Dehydrogenase Gene Full Sequencing ([place]) [facility] Miscellaneous 08/22/2024 3:0 1 PM CDT 08/27/2024 10:39 AM CDT Narrative [facility] - 09/02/2024 8:17 AM CDT Dihydropyrimidine Dehydrogenase Gene Full Sequencing ([place]) Miscellaneous Lab Test us Zuleima Levine MD LAB GENETIC TESTING Final Result Performing Organization Address City/[facility]/ZIP Co de Phone Number [facility] [place] [address] * CT Chest Abdomen Pelvis W Contrast [...] 1.030 [facility] pH, urine 6.0 [facility] Comment: Interpretive Data U rine pH is affected by diet, medications, systemic acid-base disturbances, and renal tubular function. pH may affect urinary stone formation. For example, urine pH below 6.0 may help reduce the tendency for calcium phosphate stones and pH greater than 6.0 may reduce the tendency for uric acid stone formation. Source: [employer] Current Interpretive Data was last revised on 2017 Protein, ur ql Negative Negative [facility] Glucose, ur ql Negative Negative [facility] Ketones, ur Negative Negative [facility] Bilirubin, ur Negative Negative [facility] Blood, ur Negative Negative [facility] Urobilinogen, ur <2.0 <2.0 mg/dL [facility] Nitrite, ur Negative Negative [facility] Leukocyte esterase, ur Trace(A) Negative [facility] UA reflex comment Reflex to microscopic UA will be performed. [facility] Urine 08/22/2024 6:20 AM CDT 08/22/2024 6:30 AM CDT Smith Sawyer MD LAB MICROBIOLOGY - GENERA L ORDERABLES Final Result Performing Organization Address [facility] Co de Phone Number [facility] Department [place] [address] * (ABNORMAL) Urinalysis, microscopic only (08/22/2024 6:20 AM CDT) WBC, ur 0-5 0 - 5 /HPF RBC, ur 0-2 0 - 2 /HPF [facility] Epithelial cells, squamous, ur 1-5 0 - 5 /HPF [facility] Mucous, ur Present(A) [facility] Amorphous crystals, ur Trace(A) [facility] Culture Reflex Comment Reflex conditions for urine culture (WBC >10) not met. [facility] Urine 08/22/2024 6:20 AM CDT 08/22/2024 6:30 AM CDT Smith Sawyer MD LAB URINE ORDERABLES Lila l Result [facility] [place] [address] * (ABNORMAL) Differential, auto (08/22/2024 2:30 AM CDT) Neutrophil abs 4.00 1.50 - 6.50 K/cumm Imm gran abs 0.04 0.00 - 0.10 K/cumm [facility] Lymphocyte abs 0.13(L) 0.80 - 3.30 K/cumm [facility] Monocyte abs 0.21 0.20 - 0.80 K/cumm [facility] Eosinophil abs 0.01 0.00 - 0.50 K/cumm [facility] Basophil abs 0.01 0.00 - 0.10 K/cumm [facility] Neutrophil pct 90.9 % [facility] Comment: Interpretive Data Percent cell count reference ranges are not reported, since discordance with absolute values may lead to misinterpretation of CBC data. Current Interpretive Data was last revised on 2017. Imm gran pct 0.9 % [facility] Comment: Interpretive Data Percent cell count reference ranges are not reported, since discordance with absolute values may lead to misinterpretation of CBC data. Current Interpretive Data was last revised on 2017. Lymphocyte pct 3.0 % [facility] Comment: Interpretive Data Percent cell count reference ranges are not reported, since discordance with absolute values may lead to misinterpretation of CBC data. Current Interpretive Data was last revised on 2017. Monocyte pct 4.8 % [facility] Comment: Interpretive Data Percent cell count reference ranges are not reported, since discordance with absolute values may lead to misinterpretation of CBC data. Current Interpretive Data was last revised on 2017. Eosinophil pct 0.2 % [facility] Comment: Interpretive Data Percent cell count reference ranges are not reported, since discordance with absolute values may lead to misinterpretation of CBC data. Current Interpretive Data was last revised on 2017. Basophil pct 0.2 % [facility] Comment: Interpretive Data Percent cell count reference ranges are not reported, since discordance with absolute values may lead to misinterpretation of CBC data. Current Interpretive Data was last revised on 2017. Blood 08/22/2024 2:30 AM CDT 08/22/2024 12:54 AM CDT us Smith Sawyer MD LAB BLOOD ORDERABLES Lila dawson Result [facility] [place] [address] * (ABNORMAL) CBC with auto differential (08/22/2024 2:30 AM CDT) Pathologist [facility] WBC 4.40 3.80 - 9.90 K/cumm Hgb 9.0(L) 13.0 - 17.5 g/dL [facility] Hct 25.0(L) 38.9 - 50.3 % [facility] Plt 168 150 - 400 K/cumm [facility] MPV 9.9 9.1 - 12.3 fL [facility] RBC 2.47(L) 4.30 - 5.80 M/cumm [facility] MCV 101.2(H) 81.3 - 96.4 fL [facility] MCH 36.4(H) 27.1 - 33.3 pg [facility] MCHC 36.0(H) 32.3 - 35.7 g/dL [facility] RDW CV 17.2(H) 11.1 - 14.9 % [facility] RDW SD 59.0(H) 35.7 - 48.1 fL [facility] NRBC abs 0.00 0.00 - 0.01 K/cumm [facility] Blood 08/22/2024 2:30 AM CDT 08/22/2024 12:54 AM CDT Smith Sawyer MD LAB BLOOD ORDERABLES Lila dawson Result [facility] [place] [address] * (ABNORMAL) eGFR (08/22/2024 12:28 AM CDT) Pathologist [facility] eGFR 58(L) >=60 mL/min/1. 73 m2 Comment: [...] ORDERABLES Lila l Result Performing Organization Address City/[facility] Co de Phone Number [facility] [place] [address] * Critical Result Callback Hematology (08/22/2024 12:28 AM CDT) Date Notified [id number] Time Notified 132 [facility] TestName INR [facility] Called/Read Back Naren [facility] Credentials RN [facility] Called By ELIZABETH [facility] Blood 08/22/2024 12:2 8 AM CDT 08/22/2024 1:15 AM CDT Smith Sawyer MD LAB BLOOD ORDERABLES Lila l Result [facility] [place] [address] * Thyroid Function [place] (08/22/2024 12:28 AM CDT) TSH 0.53 0.30 - 4.20 mcIUnit/mL Blood 08/22/2024 12:2 8 AM CDT 08/22/2024 12:55 AM CDT Smith Sawyer MD LAB BLOOD ORDERABLES Lila l Result Performing Organization Address [facility] de Phone Number STAN [facility] [place] [address] * (ABNORMAL) aPTT (08/22/2024 12:28 AM CDT) [...] ORDERABLES Lila l Result Performing Organization Address [facility] de Phone Number STAN [facility] [place] [address] * (ABNORMAL) Protime-INR (08/22/2024 12:28 AM CDT) PT 98.6(H) 9.7 - 13.0 sec INR 8.73(C) 0.90 - 1.20 [facility] Comment: REVIEWED Interpretive data Oral anticoagulant therapeutic [...] ORDERABLES Lila l Result Performing Organization Address [facility] Co de Phone Number STAN [facility] [place] [address] * Type and screen (08/22/2024 12:28 AM CDT) Minna, indirect Negative ABO Rh A Positive [facility] Blood 08/22/2024 12:2 8 AM CDT 08/22/2024 1:00 AM CDT Narrative [facility] - 08/22/2024 2:10 AM CDT Has the patient had Daratumumab or Isatuximab in the past 6 months?->Unknown Smith Sawyer MD LAB BLOOD BANK TEST ORDER DEMETRIO Final Result Performing Organization Address [facility] Co de Phone Number [facility] [place] [address] * (ABNORMAL) Uric acid (08/22/2024 12:28 AM CDT) Pathologist [facility] Uric acid 8.4(H) 3.0 - 8.0 mg/dL Blood 08/22/2024 12:2 8 AM CDT 08/22/2024 12:55 AM CDT Narrative [facility] - 08/22/2024 1:31 AM CDT Saturday and only. Morning draw. . Smith Sawyer MD LAB BLOOD ORDERABLES Lila l Result Performing Organization Address [facility] Co de Phone Number [facility] [place] [address] * Phosphorus (08/22/2024 12:28 AM CDT) Phosphorus, pl 2.8 2.3 - 4.5 mg/dL Blood 08/22/2024 12:2 8 AM CDT 08/22/2024 12:55 AM CDT Smith Sawyer MD LAB BLOOD ORDERABLES Lila l Result Performing Organization Address City/[facility]/ZIP Co de Phone Number [facility] [place] [address] * (ABNORMAL) Lactate dehydrogenase (LD) (08/22/2024 12:28 AM CDT) [facility] Lactate dehydrogenase (LDH) 301(H) 100 - 250 Units/L Blood 08/22/2024 12:2 8 AM CDT 08/22/2024 12:55 AM CDT Narrative [facility] - 08/22/2024 1:31 AM CDT Saturday and only. Morning draw. Smith Sawyer MD LAB BLOOD ORDERABLES Lila l Result [facility] [place] [address] * Vitamin B12 (08/22/2024 12:28 AM CDT) [facility] Vitamin B12 760 230 - 1,250 pg/mL Blood 08/22/2024 12:2 8 AM CDT 08/22/2024 12:55 AM CDT Smith Sawyer MD LAB BLOOD ORDERABLES Lila l Result [facility] [place] [address] * (ABNORMAL) Comprehensive metabolic panel (08/22/2024 12:28 AM CDT) [facility] Sodium 138 135 - 145 mmol/L Potassium, pl 3.5 3.3 - 4.9 mmol/L [facility] Chloride 104 97 - 110 mmol/L [facility] CO2 23 22 - 32 mmol/L [facility] Anion gap 11 2 - 15 mmol/L [facility] BUN 40(H) 6 - 25 mg/dL [facility] Creatinine 1.29 0.80 - 1.30 mg/dL [facility] Glucose 154 70 - 199 mg/dL [facility] Comment: Interpretive Data Fasting glucose >/= 126 [...] 2022. Calcium 8.2(L) 8.5 - 10.3 mg/dL [facility] Bilirubin, total 0.9 0.1 - 1.2 mg/dL [facility] Protein, pl 5.3(L) 6.5 - 8.5 g/dL [facility] Albumin 3.3(L) 3.5 - 5.0 g/dL [facility] Alk phos 76 40 - 130 Units/L [facility] ALT 15 7 - 55 Units/L [facility] AST 29 10 - 50 Units/L [facility] Blood 08/22/2024 12:2 8 AM CDT 08/22/2024 12:55 AM CDT Smith Sawyer MD LAB BLOOD ORDERABLES Lila l Result [facility] Department [place] [address] * C. difficile testing Stool (08/21/2024 9:37 PM CDT) [facility] Result Negative Negative Toxin Result Negative Negative [facility] C. diff result Negative, free toxin Negative, free toxin [facility] C. diff interp Negative for toxigenic Clostridioides (Clostridium) difficile. Analysis was performed using a glutamate dehydrogenase antigen detection assay combined with a C. difficile toxin detection assay. [facility] Stool 08/21/2024 9:37 PM CDT 08/22/2024 1:47 AM CDT Smith Sawyer MD LAB MICROBIOLOGY - GENERA L ORDERABLES Final Result Performing Organization Address [facility] de Phone Number [facility] Department [place] [address] * Cytomegalovirus (CMV) DNA PCR, quantitative Blood (08/21/2024 9:37 PM CDT) [facility] CMV DNA Not Detected [facility] Comment: Interpretive Data: The quantifiable range of this assay is 34 IUnits/mL to 10,000,000 IUnits/mL (1.53 log IUnits/mL to 7.0 log IUnits/mL). Testing was performed by the ELIO 6800 CMV Test ([employer] Testing performed at [facility]. Current interpretive data was last revised on 2020. Blood 08/21/2024 9:37 PM CDT 08/21/2024 10:18 PM CDT Smith Sawyer MD LAB MICROBIOLOGY - [employer] L ORDERABLES Final Result Performing Organization Address [facility] Co de Phone Number [facility] [place] [address] [facility] * Norovirus PCR Stool (08/21/2024 9:37 PM CDT) [facility] Norovirus GI RNA Not Detected Not Detected [facility] Norovirus GII RNA Not Detected Not Detected [facility] Comment: Interpretive data: Testing performed at the [facility] using the [employer] Xpert Norovirus Assay. This assay uses nucleic [...] PM CDT 08/22/2024 2:20 AM CDT Result [facility] Smith Sawyer MD LAB MICROBIOLOGY - GENERA L ORDERABLES Final Result Performing Organization Address [facility] Co de Phone Number [facility] [place] [address] [facility] * Cryptosporidium and Giardia antigen assay Stool (08/21/2024 9:37 PM CDT) Giardia Ag Negative Negative Cryptosporidium Ag Negative Negative [facility] Comment: Interpretive data: Testing performed by the [facility] using an immunoassay that detects Cryptosporidium and Giardia antigens in stool specimens. If comprehensive examination for ova and parasites is required, please request Ova and Parasite Examination. Stool 08/21/2024 9:37 PM CDT 08/22/2024 1:47 AM CDT Result [facility] Smith Sawyer MD LAB MICROBIOLOGY - GENERA L ORDERABLES Final Result Performing Organization Address [facility] Co de Phone Number [facility] [place] [address] * Infection Prevention VRE Culture Stool (08/21/2024 9:37 PM CDT) Report Final Report: Negative Stool 08/21/2024 9:37 PM CDT 08/22/2024 6:17 AM CDT Narrative [facility] - 08/24/2024 7:43 AM CDT Surveillance culture for Infection Prevention purposes only; results indicate colonization, not infection requiring treatment. Testing performed by [facility] ([phone]). Result [facility] Gorge Vaughan MD PhD LAB MICROBIOLOGY - G ENERAL ORDERABLES Final Result Performing Organization Address [facility] Co de Phone Number [facility] [place] [address] * Stool culture Stool Rectum (08/21/2024 9:37 PM CDT) Direct Specimen Exam Shiga Toxin Testing: Antigen detection assay for Shiga-toxin NEGATIVE for Shiga Toxin 1 and Shiga Toxin 2. Report Final Report: No growth of enteric bacterial pathogens [facility] Stool (Rectum) 08/21/2024 9: 37 PM CDT 08/22/2024 1:47 AM CDT Narrative [facility] - 08/26/2024 2:52 PM CDT Specimen received in a sterile container. Testing performed by [facility] ([phone]). Routine stool cultures include procedures to detect Salmonella, Shigella, Edwardsiella, Aeromonas, Pleisiomonas, Campylobacter, Yersinia, E. coli O157, and Shiga-like toxins. Vibrio is cultured only upon special request. If Vibrio is suspected, please call the laboratory at [phone]. Interpretive data was last updated September 10, 2016. us Smith Sawyer MD LAB MICROBIOLOGY - GENERA L ORDERABLES Final Result Performing Organization Address [facility] Co de Phone Number [facility] [place] [address] * XR Chest 1 View (08/21/2024 4:43 [...] signed by: Chu Villanueva M.D. Lisa Tejeda MECHANICAL DESIGNER IMG XR PROCEDURES Final R esult * (ABNORMAL) Respiratory pathogen panel Nasopharyngeal (08/21/2024 4:08 PM CDT) Pathologist [facility] Influenza A RNA Not Detected Not Detected Influenza B RNA Not Detected Not Detected [facility] RSV RNA Not Detected Not Detected [facility] COVID-19 RNA Not Detected Not Detected [facility] Coronavirus 229E RNA Not Detected Not Detected [facility] Coronavirus HKU1 RNA Detected(A) Not Detected [facility] Coronavirus NL63 RNA Not Detected Not Detected [facility] Coronavirus OC43 RNA Not Detected Not Detected [facility] Adenovirus DNA Not Detected Not Detected [facility] Metapneumovirus RNA Not Detected Not Detected [facility] Rhinovirus/Enterov irus RNA Not Detected Not Detected [facility] Parainfluenza 1 RNA Not Detected Not Detected [facility] Parainfluenza 2 RNA Not Detected Not Detected [facility] Parainfluenza 3 RNA Not Detected Not Detected [facility] Parainfluenza 4 RNA Not Detected Not Detected [facility] B. pertussis DNA Not Detected Not Detected [facility] B. parapertussis DNA Not Detected Not Detected [facility] C. pneumoniae DNA Not Detected Not Detected [facility] M. pneumoniae DNA Not Detected Not Detected [facility] Nasopharyngeal 08/21/2024 4: 08 PM CDT 08/21/2024 4:50 PM CDT Amy PIERCE [facility] - 08/21/2024 5:58 PM CDT Is the Patient experiencing symptoms consistent with COVID?->Yes Surveillance testing for transplant patient?->No Interpretive Data The [employer] Film[employer] Respiratory Panel (RP2.1) assay is a [...] assay has FDA clearance for testing of MECHANICAL DESIGNER swabs. The performance of additional specimen types has been assessed by the performing laboratory. The performance characteristics of this assay have been determined by [facility] Molecular Infectious Disease Laboratory. Current interpretive data was last revised on 22. Lisa Tejeda NP LAB MICROBIOLOGY - GENERA L ORDERABLES Final Result Performing Organization Address [facility] Co de Phone Number [facility] [place] [address] * (ABNORMAL) eGFR (08/21/2024 3:52 PM CDT) [...] ORDERABLES Lila l Result Performing Organization Address City/[facility]/ZIP Co de Phone Number [facility] [place] [address] * (ABNORMAL) Differential, auto (08/21/2024 3:52 PM CDT) Neutrophil abs 4.28 1.50 - 6.50 K/cumm Imm gran abs 0.03 0.00 - 0.10 K/cumm [facility] Lymphocyte abs 0.27(L) 0.80 - 3.30 K/cumm [facility] Monocyte abs 0.58 0.20 - 0.80 K/cumm [facility] Eosinophil abs 0.03 0.00 - 0.50 K/cumm [facility] Basophil abs 0.01 0.00 - 0.10 K/cumm [facility] Neutrophil pct 82.2 % [facility] Comment: Interpretive Data Percent cell count reference ranges are not reported, since discordance with absolute values may lead to misinterpretation of CBC data. Current Interpretive Data was last revised on 2017. Imm gran pct 0.6 % [facility] Comment: Interpretive Data Percent cell count reference ranges are not reported, since discordance with absolute values may lead to misinterpretation of CBC data. Current Interpretive Data was last revised on 2017. Lymphocyte pct 5.2 % [facility] Comment: Interpretive Data Percent cell count reference ranges are not reported, since discordance with absolute values may lead to misinterpretation of CBC data. Current Interpretive Data was last revised on 2017. Monocyte pct 11.2 % [facility] Comment: Interpretive Data Percent cell count reference ranges are not reported, since discordance with absolute values may lead to misinterpretation of CBC data. Current Interpretive Data was last revised on 2017. Eosinophil pct 0.6 % [facility] Comment: Interpretive Data Percent cell count reference ranges are not reported, since discordance with absolute values may lead to misinterpretation of CBC data. Current Interpretive Data was last revised on 2017. Basophil pct 0.2 % [facility] Comment: Interpretive Data Percent cell count reference ranges are not reported, since discordance with absolute values may lead to misinterpretation of CBC data. Current Interpretive Data was last revised on 2017. Blood 08/21/2024 3:52 PM CDT 08/21/2024 4:16 PM CDT Lisa Tejeda NP LAB BLOOD ORDERABLES Lila eunice Result [facility] [place] [address] * (ABNORMAL) CBC with auto differential (08/21/2024 3:52 PM CDT) [facility] WBC 5.20 3.80 - 9.90 K/cumm Hgb 9.7(L) 13.0 - 17.5 g/dL [facility] Hct 26.7(L) 38.9 - 50.3 % [facility] Plt 204 150 - 400 K/cumm [facility] MPV 9.9 9.1 - 12.3 fL [facility] RBC 2.67(L) 4.30 - 5.80 M/cumm [facility] MCV 100.0(H) 81.3 - 96.4 fL [facility] MCH 36.3(H) 27.1 - 33.3 pg [facility] MCHC 36.3(H) 32.3 - 35.7 g/dL [facility] RDW CV 17.3(H) 11.1 - 14.9 % [facility] RDW SD 58.5(H) 35.7 - 48.1 fL [facility] NRBC abs 0.00 0.00 - 0.01 K/cumm [facility] Blood 08/21/2024 3:52 PM CDT 08/21/2024 4:16 PM CDT us Lisa Tejeda MECHANICAL DESIGNER LAB BLOOD ORDERABLES Lila l Result [facility] [place] [address] * CRP (acute phase) (08/21/2024 3:52 PM CDT) [facility] CRP 3.7 <=10.0 mg/L Blood 08/21/2024 3:52 PM CDT 08/21/2024 4:16 PM CDT us Gorge Vaughan MD PhD LAB BLOOD ORDERABLES Final Result [facility] [place] [address] * (ABNORMAL) Comprehensive metabolic panel (08/21/2024 3:52 PM CDT) Sodium 136 135 - 145 mmol/L Potassium, pl 3.3 3.3 - 4.9 mmol/L [facility] Chloride 100 97 - 110 mmol/L [facility] CO2 25 22 - 32 mmol/L [facility] Anion gap 11 2 - 15 mmol/L [facility] BUN 40(H) 6 - 25 mg/dL [facility] Creatinine 1.37(H) 0.80 - 1.30 mg/dL [facility] Glucose 123 70 - 199 mg/dL [facility] Comment: Interpretive Data Fasting glucose >/= 126 [...] 2022. Calcium 8.8 8.5 - 10.3 mg/dL [facility] Bilirubin, total 1.1 0.1 - 1.2 mg/dL [facility] Protein, pl 5.7(L) 6.5 - 8.5 g/dL [facility] Albumin 3.9 3.5 - 5.0 g/dL [facility] Alk phos 88 40 - 130 Units/L [facility] ALT 16 7 - 55 Units/L [facility] AST 26 10 - 50 Units/L [facility] Blood 08/21/2024 3:52 PM CDT 08/21/2024 4:16 PM CDT Lisa Tejeda NP LAB BLOOD ORDERABLES Lila l Result Performing Organization Address [facility] Co de Phone Number [facility] [place] [address] * POC Blood Gas and Chemistries, Arterial - (08/21/2024 3:50 PM CDT) Lactate POC 2.0 0.7 - 2.0 mmol/L Blood 08/21/2024 3:50 PM CDT 08/21/2024 3:50 PM CDT us Gorge Vaughan MD PhD LAB POCT ORDERABLES - DEVICE Final Result Performing Organization Address [facility] Co de Phone Number [facility] [place] [address] * Critical Result Callback Hematology (08/21/2024 3:45 PM CDT) Date Notified [id number] Time Notified 1649 [facility] TestName INR [facility] Called/Read Back Luis Ramirez [facility] Credentials RN [facility] Called By PD [facility] Blood 08/21/2024 3:45 PM CDT 08/21/2024 4:06 PM CDT us Lisa Tejeda MECHANICAL DESIGNER LAB BLOOD ORDERABLES Lila l Result Performing Organization Address [facility] Co de Phone Number [facility] Department [place] [address] * Blood culture Blood Peripheral (08/21/2024 3:45 PM CDT) Report Final Report: No growth Blood (Peripheral) 08/21/2024 3:45 PM CDT 08/21/2024 4:33 PM CDT Narrative [facility] - 08/26/2024 7:00 AM CDT 1. [...] performance characteristics have been verified by the [facility] Microbiology Laboratory. For questions about this culture, contact the Microbiology Laboratory at [phone]. Interpretive data was last revised on 24. Lisa Tejeda NP LAB MICROBIOLOGY - GENERA L ORDERABLES Final Result [facility] Department [place] [address] * Blood culture Blood Peripheral (08/21/2024 3:45 PM CDT) Report Final Report: No growth Blood (Peripheral) 08/21/2024 3:45 PM CDT 08/21/2024 4:33 PM CDT [facility] - 08/26/2024 7:00 AM CDT 1. [...] performance characteristics have been verified by the [facility] Microbiology Laboratory. For questions about this culture, contact the Microbiology Laboratory at [phone]. Interpretive data was last revised on 24. Lisa Tejeda NP LAB MICROBIOLOGY - GENERA L ORDERABLES Final Result Performing Organization Address [facility] Co de Phone Number STAN [facility] Department [place] [address] * (ABNORMAL) aPTT (08/21/2024 3:45 PM CDT) [...] ORDERABLES Lila l Result Performing Organization Address [facility] Co de Phone Number [facility] Department [place] [address] * (ABNORMAL) Thrombin time (08/21/2024 3:45 PM CDT) Thrombin time 15.2(H) 10.0 - 15.0 sec Blood 08/21/2024 3:45 PM CDT 08/21/2024 4:06 PM CDT Lisa Tejeda NP LAB BLOOD ORDERABLES Lila l Result Performing Organization Address [facility] Co de Phone Number [place] [address] * (ABNORMAL) Protime-INR (08/21/2024 3:45 PM CDT) PT >100.0(H) 9.7 - 13.0 sec INR >9.00(C) 0.90 - 1.20 [facility] Comment: No clot detected in sample. Verified [...] ORDERABLES Lila dawson Result Performing Organization Address [facility] de Phone Number [facility] [place] [address] * Urinalysis reflex to microscopic (08/20/2024 1:27 AM CDT) Color, ur Straw Yellow Clarity, ur Clear Clear [facility] Specific gravity, ur 1.022 1.003 - 1.030 [facility] pH, urine 6.0 [facility] Comment: Interpretive Data U rine pH is affected by diet, medications, systemic acid-base disturbances, and renal tubular function. pH may affect urinary stone formation. For example, urine pH below 6.0 may help reduce the tendency for calcium phosphate stones and pH greater than 6.0 may reduce the tendency for uric acid stone formation. Source: [facility] Current Interpretive Data was last revised on 2017 Protein, ur ql Negative Negative [facility] Glucose, ur ql Negative Negative [facility] Ketones, ur Negative Negative [facility] Bilirubin, ur Negative Negative [facility] Blood, ur Negative Negative [facility] Urobilinogen, ur <2.0 <2.0 mg/dL [facility] Nitrite, ur Negative Negative [facility] Leukocyte esterase, ur Negative Negative [facility] UA reflex comment Reflex conditions for microscopic UA not met. [facility] Urine 08/20/2024 1:27 AM CDT 08/20/2024 1:48 AM CDT us Leela Sandhu MECHANICAL DESIGNER LAB URINE ORDERABLES Lila l Result Performing Organization Address [facility] Co de Phone Number [facility] Department [place] [address] * Urine culture Urine, clean voided (08/20/2024 1:27 AM CDT) Report Final Report: No growth Urine, clean voided 08/20/2024 1:27 AM CDT 08/20/2024 11:58 AM CDT Narrative [facility] - 08/21/2024 1:10 PM CDT Indications for Culture:->Other (specify) Other Indication:->immunocompromised Testing performed by [facility] Microbiology Laboratory ([phone]) us Leela Sandhu MECHANICAL DESIGNER LAB MICROBIOLOGY - GENERA L ORDERABLES Final Result Performing Organization Address [facility] Co de Phone Number [facility] Department [place] [address] * (ABNORMAL) POC Blood Gas and Chemistries, Arterial - (08/19/2024 9:48 PM CDT) Lactate POC 2.1(H) 0.7 - 2.0 mmol/L Blood 08/19/2024 9:48 PM CDT 08/19/2024 9:48 PM CDT us Gilberto Martinez MD LAB POCT ORDERABLES - DEVICE Final Result [facility] Department [place] [address] * ECG 12 lead (08/19/2024 9:34 PM CDT) Ventricular Rate EKG/Min 60 BPM [facility] Atrial Rate 60 BPM [facility] UT-Interval (MSEC) 210 ms [facility] QRS-Interval (MSEC) 98 ms [facility] QT-Interval (MSEC) 462 ms [facility] QTc 462 ms [facility] P Jackson 15 degrees [facility] R Jackson -29 degrees [facility] T Jackson 155 degrees [facility] Diagnosis Atrial-paced rhythm with prolonged AV conduction ST & T wave abnormality, consider lateral ischemia Abnormal ECG When compared with ECG of 08-JUN-2024 07:48, No significant change was found Confirmed by RL BHATT M.D ([id number]) on 08/20/2024 5:01:40 PM [facility] 08/19/2024 9:34 PM CDT 08/20/2024 5:01 PM CDT us Leela Sandhu MECHANICAL DESIGNER ECG ORDERABLES Final Res ult Performing Organization Address [facility]/ZIP Co de Phone Number [facility] * eGFR (08/19/2024 9:03 PM CDT) eGFR [...] PM CDT 08/19/2024 9:56 PM CDT us Lelea Sandhu MECHANICAL DESIGNER LAB BLOOD ORDERABLES Lila eunice Result [facility] Department [place] [address] * (ABNORMAL) Differential, auto (08/19/2024 9:03 PM CDT) Neutrophil abs 6.02 1.50 - 6.50 K/cumm Imm gran abs 0.04 0.00 - 0.10 K/cumm [facility] Lymphocyte abs 0.23(L) 0.80 - 3.30 K/cumm [facility] Monocyte abs 0.48 0.20 - 0.80 K/cumm [facility] Eosinophil abs 0.01 0.00 - 0.50 K/cumm [facility] Basophil abs 0.00 0.00 - 0.10 K/cumm [facility] Neutrophil pct 88.8 % [facility] Comment: Interpretive Data Percent cell count reference ranges are not reported, since discordance with absolute values may lead to misinterpretation of CBC data. Current Interpretive Data was last revised on 2017. Imm gran pct 0.6 % [facility] Comment: Interpretive Data Percent cell count reference ranges are not reported, since discordance with absolute values may lead to misinterpretation of CBC data. Current Interpretive Data was last revised on 2017. Lymphocyte pct 3.4 % [facility] Comment: Interpretive Data Percent cell count reference ranges are not reported, since discordance with absolute values may lead to misinterpretation of CBC data. Current Interpretive Data was last revised on 2017. Monocyte pct 7.1 % [facility] Comment: Interpretive Data Percent cell count reference ranges are not reported, since discordance with absolute values may lead to misinterpretation of CBC data. Current Interpretive Data was last revised on 2017. Eosinophil pct 0.1 % [facility] Comment: Interpretive Data Percent cell count reference ranges are not reported, since discordance with absolute values may lead to misinterpretation of CBC data. Current Interpretive Data was last revised on 2017. Basophil pct 0.0 % [facility] Comment: Interpretive Data Percent cell count reference ranges are not reported, since discordance with absolute values may lead to misinterpretation of CBC data. Current Interpretive Data was last revised on 2017. Blood 08/19/2024 9:03 PM CDT 08/19/2024 9:56 PM CDT Leela Sandhu MECHANICAL DESIGNER LAB BLOOD ORDERABLES Lila dawson Result Performing Organization Address City/State/[facility] Co de Phone Number [facility] Department [place] [address] * Respiratory pathogen panel Nasopharyngeal (08/19/2024 9:03 PM CDT) Pathologist [facility] Influenza A RNA Not Detected Not Detected Influenza B RNA Not Detected Not Detected [facility] RSV RNA Not Detected Not Detected [facility] COVID-19 RNA Not Detected Not Detected [facility] Coronavirus 229E RNA Not Detected Not Detected [facility] Coronavirus HKU1 RNA Not Detected Not Detected [facility] Coronavirus NL63 RNA Not Detected Not Detected [facility] Coronavirus OC43 RNA Not Detected Not Detected [facility] Adenovirus DNA Not Detected Not Detected [facility] Metapneumovirus RNA Not Detected Not Detected [facility] Rhinovirus/Enterov irus RNA Not Detected Not Detected [facility] Parainfluenza 1 RNA Not Detected Not Detected [facility] Parainfluenza 2 RNA Not Detected Not Detected [facility] Parainfluenza 3 RNA Not Detected Not Detected [facility] Parainfluenza 4 RNA Not Detected Not Detected [facility] B. pertussis DNA Not Detected Not Detected [facility] B. parapertussis DNA Not Detected Not Detected [facility] C. pneumoniae DNA Not Detected Not Detected [facility] M. pneumoniae DNA Not Detected Not Detected [facility] Nasopharyngeal 08/19/2024 9: 03 PM CDT 08/19/2024 10:21 PM CDT Narrative [facility] - 08/19/2024 11:23 PM CDT Is the Patient experiencing symptoms consistent with COVID?->No Surveillance testing for transplant patient?->No Interpretive Data The [employer] FilmArray Respiratory Panel (RP2.1) assay is a [...] assay has FDA clearance for testing of MECHANICAL DESIGNER swabs. The performance of additional specimen types has been assessed by the performing laboratory. The performance characteristics of this assay have been determined by [facility] Molecular Infectious Disease Laboratory. Current interpretive data was last revised on 22. us Leela Sandhu MECHANICAL DESIGNER LAB MICROBIOLOGY - GENERA L ORDERABLES Final Result Performing Organization Address [facility] Co de Phone Number [facility] Department [place] [address] * (ABNORMAL) CBC with auto differential (08/19/2024 9:03 PM CDT) WBC 6.78 3.80 - 9.90 K/cumm Hgb 10.2(L) 13.0 - 17.5 g/dL [facility] Hct 28.4(L) 38.9 - 50.3 % [facility] Plt 193 150 - 400 K/cumm [facility] MPV 10.1 9.1 - 12.3 fL [facility] RBC 2.78(L) 4.30 - 5.80 M/cumm [facility] MCV 102.2(H) 81.3 - 96.4 fL [facility] MCH 36.7(H) 27.1 - 33.3 pg [facility] MCHC 35.9(H) 32.3 - 35.7 g/dL [facility] RDW CV 17.2(H) 11.1 - 14.9 % [facility] RDW SD 59.2(H) 35.7 - 48.1 fL [facility] NRBC abs 0.00 0.00 - 0.01 K/cumm [facility] Blood 08/19/2024 9:03 PM CDT 08/19/2024 9:56 PM CDT us Leela Sandhu MECHANICAL DESIGNER LAB BLOOD ORDERABLES Lila l Result Performing Organization Address [facility]/ZIP Co de Phone Number [facility] [place] [address] * Phosphorus (08/19/2024 9:03 PM CDT) [facility] Phosphorus, pl 3.1 2.3 - 4.5 mg/dL Blood 08/19/2024 9:0 3 PM CDT 08/19/2024 9:56 PM CDT us Gilberto Martinez MD LAB BLOOD ORDERABLES Final Re sult Performing Organization Address City/[facility]/ZIP [place] [address] * Magnesium (08/19/2024 9:03 PM CDT) [facility] Magnesium 1.8 1.4 - 2.5 mg/dL Blood 08/19/2024 9:03 PM CDT 08/19/2024 9:56 PM CDT us Gilberto Martinez MD LAB BLOOD ORDERABLES Final Re sult Performing Organization Address [facility] [place] [address] * Lipase (08/19/2024 9:03 PM CDT) [facility] Lipase 42 10 - 99 Units/L Blood 08/19/2024 9:03 PM CDT 08/19/2024 9:56 PM CDT us Leela Sandhu MECHANICAL DESIGNER LAB BLOOD ORDERABLES Lila l Result Performing Organization Address City/[facility]/ZIP [place] [address] * (ABNORMAL) Lactate dehydrogenase (LD) (08/19/2024 9:03 PM CDT) Lactate dehydrogenase (LDH) 434(H) 100 - 250 Units/L Blood 08/19/2024 9:03 PM CDT 08/19/2024 9:56 PM CDT Leela Sandhu MECHANICAL DESIGNER LAB BLOOD ORDERABLES Lila l Result Performing Organization Address [facility] Co de Phone Number [facility] [place] [address] * Amylase (08/19/2024 9:03 PM CDT) Pathologist [facility] Amylase 92 30 - 99 Units/L Blood 08/19/2024 9:03 PM CDT 08/19/2024 9:56 PM CDT Leela Sandhu MECHANICAL DESIGNER LAB BLOOD ORDERABLES Lila l Result Performing Organization Address [facility] de Phone Number [facility] [place] [address] * (ABNORMAL) Comprehensive metabolic panel (08/19/2024 9:03 PM CDT) Pathologist [facility] Sodium 133(L) 135 - 145 mmol/L Potassium, pl 3.9 3.3 - 4.9 mmol/L [facility] Chloride 97 97 - 110 mmol/L [facility] CO2 24 22 - 32 mmol/L [facility] Anion gap 12 2 - 15 mmol/L [facility] BUN 44(H) 6 - 25 mg/dL [facility] Creatinine 1.17 0.80 - 1.30 mg/dL [facility] Glucose 139 70 - 199 mg/dL [facility] Comment: Interpretive Data Fasting glucose >/= 126 [...] 2022. Calcium 8.9 8.5 - 10.3 mg/dL [facility] Bilirubin, total 1.2 0.1 - 1.2 mg/dL [facility] Protein, pl 6.2(L) 6.5 - 8.5 g/dL [facility] Albumin 3.8 3.5 - 5.0 g/dL [facility] Alk phos 91 40 - 130 Units/L [facility] ALT 21 7 - 55 Units/L [facility] AST 32 10 - 50 Units/L [facility] Blood 08/19/2024 9:03 PM CDT 08/19/2024 9:56 PM CDT us Leela Sandhu MECHANICAL DESIGNER LAB BLOOD ORDERABLES Lila dawson Result [facility] [place] [address] * DEVICE CHECK - REMOTE (08/17/2024 10:56 [...] to JC Episodes last 90 days/Comments: AF [place] <1 %, longest duration 1 minute 54 [...] Protime-INR (08/17/2024 10:34 AM CDT) INR 2.8(H) [facility] [place] Comment: Reference Range 0.9-1.1 Moderate-intensity Warfarin Therapy 2.0-3.0 Higher-intensity Warfarin Therapy 3.0-4.0 PT 27.6(H) 9.0 - 11.5 sec [employer] [place] Comment: For additional information, please refer to http://education.Leaky/faq/QBW673 (This link is being provided for informational/ educational purposes only.) Blood 08/17/2024 10:3 4 AM CDT 08/17/2024 10:34 AM CDT Narrative [facility] - 08/17/2024 6:58 PM CDT FASTING:NO FASTING: NO Chris Hart MD LAB BLOOD ORDERABLES Final Result Performing Organization Address City/[facility]/ZIP Co de Phone Number [id number] [address] [place] [address] * [place] ERCP Biliary Duct (08/07/2024 3:03 PM CDT) Narrative [email or web address] - 08/07/2024 3:03 PM CDT The images [...] Two biliary stents were visible on the zinc chloride operator film. The esophagus was successfully intubated under [...] * (ABNORMAL) Hemoglobin A1c (06/22/2024 2:10 PM MAKE READY WORKER) HbA1c 7.9(H) 5.1 - 5.6 % [facility] Comment: HBA1C 5.1 - 5.6 = NORMAL HBA1C 5.7 - 6.4 = PREDIABETES HBA1C >=6.5 = PROVISIONAL DIAGNOSIS OF DIABETES Estimated Average Glucose 180 mg/dL [facility] Blood 06/22/2024 2:10 PM MAKE READY WORKER 06/22/2024 3:15 PM MAKE READY WORKER Lex Perez MD LAB BLOOD ORDERABLES Final Resu lt Performing Organization Address City/[facility]/ZIP Co de Phone Number [facility] * Hepatitis C antibody Blood (06/08/2024 7:28 AM MAKE READY WORKER) Hep C Ab Nonreactive Nonreactive Comment:Antibodies to HCV no t detected. Does NOT exclude the possibility of recent exposure to HCV. Current interpretive data was last revised on 22 Blood 06/08/2024 7:28 AM MAKE READY WORKER 06/08/2024 8:06 AM MAKE READY WORKER Narrative [facility] - 06/08/2024 8:55 AM MAKE READY WORKER Please add the following comment to each lab: This lab is being obtained as part of a liver transplant evaluation, is time sensitive, and should only be drawn during the evaluation visit at [facility] Lab. Katie Reeder MD LAB MICROBIOLOGY - GENERAL ORDER DEMETRIO Final Result Performing Organization Address [facility] Co de Phone Number [facility] [place] [address] * (ABNORMAL) Lipid panel (06/08/2024 7:28 AM MAKE READY WORKER) Pathologist [facility] Cholesterol 176 30 - 199 mg/dL Comment: [...] revised on 2017. Triglycerides 266(H) <=149 mg/dL [facility] Comment: Interpretive Data Ages < or = [...] revised on 2017. HDL 70 >=40 mg/dL [facility] Comment: Interpretive Data Ages < or = [...] on 2017. LDL, calculated 64 <=129 mg/dL [facility] Comment: Interpretive Data Ages < or = [...] revised on 2023. Non-HDL Cholesterol 106 mg/dL [facility] Comment: Interpretive Data Ages < or = [...] last revised on 2017. Chol/HDL ratio 3 [facility] Blood 06/08/2024 7:28 AM MAKE READY WORKER 06/08/2024 8:07 AM MAKE READY WORKER Narrative [facility] - 06/08/2024 8:54 AM MAKE READY WORKER This lab is being obtained as part of a liver transplant evaluation, is time sensitive, and should only be drawn during the evaluation visit at [facility] Lab. us Katie Reeder MD LAB BLOOD ORDERABLES Final Resul t [facility] [place] [address] from Last 3 Months or Most Recently Relevant to Health Maintenance Insurance [facility] MEDICARE HMO [employer] MEDICARE HMO [employer] MEDICARE HMO TRANSPLANT [facility] MEDICARE RISK Advance Directives For more information, please contact: [phone] Documents on File Type Date Recorded Patient Ham Pumper Expl anation ADVANCE DIRECTIVE 01/23/2024 3:15 PM POWER OF OCCUPATIONAL HEALTH COORDINATOR-MEDICAL ADVANCE DIRECTIVE 01/19/2024 12:41 PM MORALES R OF OCCUPATIONAL HEALTH COORDINATOR-MEDICAL * Full Code (Latest Code Status on [...] 9:19 AM 05/18/2024 5:50 PM Care Teams Beater Tender Relationship Specialty Start Date End Date Gilberto Martinez MD [address] [facility] [address] [place] [address] PCP - General 07/11/16 Zane Richey III, MD [address] [facility] [address] [place] [address] Consulting Physician Cardiology 05/18/21 Raudel Childers MD [phone] [place] [address] Consulting Physician Colon and Rectal Surgery 12/26/21 Chris Hart MD [address] [address] Senior Benefits Manager Cardiology 03/17/24 Charlee Mcmillan RMA Surgical Prehabilitation and Readiness (SPAR) Coordinator 06/11/24 Agustina Li MD PhD [id number] [place] [address] Medical Oncologist/Oil Recovery Unit Operator Medical Oncology 09/09/24
--- OUTSIDE RECORDS SUMMARY | 2024-11-06 00:22 | XMS_ITS | Referral Summary ---
Author Organization [facility] Address [address] [place] [address] Care Team Providers Care Policy Advisor Name Role Phone Gilberto Martinez MD Primary Care Provider Rossi BLACK MD, Zane Morataya Unavailable [phone] Raudel Childers MD Unavailable [phone] Chris Hart MD Unavailable Charlee Mcmillan Unavailable Unavailable Agustina Li MD PhD Unavailable Encounters Date Type Department Care Team Description 5 Telephone [facility] Oncology [address] [facility] Floor 1, [address] [place] [address] Renetta Colunga NP 5 Home Care Visit [facility] Health [address] [place] [address] Hannah Roque, DIXIE CASE COMMUNICATION 5 Telephone [facility] Oncology [address] [facility] Floor 5 [place] [address] Marion Aden RN 5 Telephone [facility] and [facility] Transplant Liver [address] [facility] [address] Mailstop 90-79-005 [place] [address] Jennifer Gamboa 5 Surgical Prehabilitation and Readiness Subsequent Outreach [facility] Department of Surgery [address] [place] [address] Serge August CMA 5 12:00 PM CDT Home Care Visit [address] [place] [address] Hannah Roque, OT OT OASIS DISCHARGE 5 Telephone [facility] and [facility] Transplant Liver [address] [facility] [address] Mailstop 90-90-820 [place] [address] Alethea Burch RN 5 Telephone [facility] Oncology 10 [facility] [address] [place] [address] Yohana Santana CMA appointment update 5 10:45 AM CDT Home Care Visit [address] [place] [address] Angeline Horowitz COTA OT HOME VISIT 5 Telephone [facility] Oncology [address] [facility] Floor 5 [place] [address] Marion Aden, ALMITA 5 Telephone [facility] Oncology [address] [facility] Floor 5 [place] [address] Marion Aden, ALMITA 5 Anticoagulation Telephone Call [facility] Cardiology [address] [facility] Medical Office Building 3 [address] [place] [address] Chris Hart MD 5 7:36 PM CDT - 5 11:59 PM CDT Hospital Encounter [facility] [address] [place] [address] Discharge Disposition: Discharge to home or self care 5 7:26 PM CDT - 5 9:24 PM CDT Hospital Encounter [facility] Cancer Care [facility]) [address] [place] [address] Fever, unspecified fever cause (Primary Dx) 5 Telephone [facility] Bone Marrow Transplant [address] [facility] Floor 6 [place] [address] Willis Godoy RN 5 Anticoagulation Telephone Call [facility] Cardiology [address] [place] [address] Medical Office Building 3 [address] [place] [address] Chris Hart MD 5 Telephone [facility] Transplant Liver [address] [facility] [address]01 Mailstop 22-84-791 [place] [address] Mariama Feldman, ALMITA 5 Surgical Prehabilitation and Readiness Subsequent Outreach [facility] Department of Surgery [address] [place] [phone] Serge August CMA 5 Orders Only [facility] Oncology [address] [place] [address] Floor 5 [place] [address] Agustina Li MD PhD 5 9:00 AM CDT Home Care Visit [address] [address] [address] [place] [address] Bryn Molina, PT PT REASSESSMENT 5 12:45 PM CDT Home Care Visit [address] [place] [address] Angeline Horowitz COTA OT HOME VISIT 5 Orders Only [facility] Oncology [address] [place] [address] Floor 5 [place] [address] Marion Aden, ALMITA 5 Telephone [facility] Transplant Liver [address] [facility] [address]01 Mailstop 51-12-625 [place] [address] Mariama Feldman RN 5 Anticoagulation Telephone Call [facility] Cardiology [address] [place] [address] Office Building 3 [address] [place] [address] Chris Hart MD 5 1:45 PM CDT Office Visit [facility] Oncology 10 [facility] [address] [place] [address] Agustina Li MD PhD Hilar cholangiocarcinoma (HCC) (Primary Dx) 5 12:45 PM CDT Clinical Support [facility] at [facility] 10 [facility] [place] [address] Hilar cholangiocarcinoma (HCC); 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) 5 Home Care Visit [address] [place] [address] Hannah Roque, OT CASE COMMUNICATION 5 Telephone [facility] Oncology [address] [place] [address] Floor 5 [place] [address] Marion Aden RN 5 10:30 AM CDT Home Care Visit [address] [place] [address] Hannah Roque, OT OT REASSESSMENT 5 Telephone [facility] Oncology [address] [place] [address] Floor 5 [place] [address] Marion Aden RN 5 Anticoagulation Telephone Call [facility] Cardiology [facility] Medical Office Building 3 [address] [place] [address] Chris Hart MD 5 Documentation [facility] Oncology [address] [place] [address] Floor 5 [place] [address] Heidi Diaz RMA Fever 5 Plan of Care Documentation [address] [place] [address] 5 1:00 PM CDT Home Care Visit [address] [place] [address] Mei Trujillo, RN SN OASIS RESUMPTION OF CARE 5 Telephone [facility] Oncology [address] [facility] Floor 5 [place] [address] Marion Aden RN 5 Orders Only [facility] Oncology [address] [facility] Floor 5 [place] [address] Agustina Li MD PhD Hilar cholangiocarcinoma (HCC) (Primary Dx) 5 Telephone [facility] Cardiology [address] [facility] Advanced Medicine 8th [place] [address] [place] [address] Alea Canada RN 5 4:11 PM CDT - 5 2:00 PM CDT Hospital Encounter [address] [address] Agustina Li MD PhD Kait Askew MD Baral, MD Tomer Guerrero Safia, MD Tabagari, MD Trever Positive blood culture (Primary Dx); Fever, unspecified fever cause; Illness, unspecified; Sepsis with gram negative bacteremia; Hilar cholangiocarcinoma (HCC) Discharge Disposition: Discharge to home, home health skilled care 5 1:57 PM CDT Anesthesia Event [facility] [address] [place] [phone] Pascale Portillo MD 5 Surgical Prehabilitation and Readiness Subsequent Outreach [facility] Department of Surgery [address] [place] [phone] Serge August CMA 5 Telephone [facility] Cardiology [facility] Medicine 8th [place] [address] [place] [address] Chantell Alexis 5 Home Care Visit [facility] Health [address] [address] [address] [place] [address] Ewa Lubin, PT PT OASIS TRANSFER W/OUT DC 5 Telephone [facility] Oncology [address] [facility] Floor 5 [place] [address] Agustina Li MD PhD 5 Anticoagulation Telephone Call [facility] Cardiology [address] [facility] Medical Office Building 3 [address] [place] [address] Chris Hart MD 5 12:53 PM CDT Anesthesia Event [facility] GI Center [address] [place] [phone] Vipin Daniel DO Winfrey, Tonya M., RIAZ 5 Surgical Prehabilitation and Readiness Subsequent Outreach [facility] Department of Surgery [address] [phone] Serge August, [facility] 5 6:41 AM CDT - 5 11:59 PM CDT Hospital Encounter [facility] GI Center [address] [place] [phone] Upper abdominal pain Discharge Disposition: Discharge to home or self care 5 11:00 AM CDT - 5 11:[address] [facility] [address] [place] [phone] Chris Holcomb MD ENDOSCOPIC RETROGRADE CHOLANGIOPANCREATOGRAPHY REMOVE/CHANGE STENT [GI524] 5 8:47 AM CDT - 5 2:50 PM CDT Hospital Encounter [facility] Center [address] [place] [phone] Chris Holcomb MD History of biliary stent insertion Discharge Disposition: Discharge to home or self care 5 10:00 AM CDT Office Visit [facility] [address] [facility] 12th [place] [address] [place] [address] Katie Reeder MD Perihilar cholangiocarcinoma (HCC) (Primary Dx) 5 12:15 PM CDT Home Care Visit [address] [place] [address] Angeline Horowitz COTA OT HOME VISIT 5 Telephone [facility] Oncology [address] [facility] Floor 8 [place] [phone] Bebe Sage RN 5 2:00 PM CDT Home Care Visit [address] [place] [address] Bryn Molina, PT PT HOME VISIT 5 10:00 AM CDT Office Visit [facility] Cardiology [facility] Medical Office Building 3 [address] [place] [address] Aisha Delcid NP Cardiac pacemaker in situ (Primary Dx); Moderate aortic regurgitation; High risk medication use; Paroxysmal atrial fibrillation (HCC); Nonrheumatic mitral valve regurgitation; Essential (primary) hypertension; Prolonged INR; Heart disease, unspecified; Sick sinus syndrome (HCC) 5 Results Follow-Up [facility] Transplant Liver [address] [facility] [address] Mailstop [phone] [place] [address] Alethea Burch, ALMITA CT Chest Abdomen Pelvis W Contrast 5 9:38 AM CDT - 5 11:59 PM CDT Hospital Encounter [facility] Radiology [facility] [address] [place] [address] 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) Discharge Disposition: Discharge to home or self care 5 Orders Only [facility] Oncology [facility] Floor 5 [place] [address] Agustina Li MD PhD Benign prostatic hyperplasia, unspecified whether lower urinary tract symptoms present (Primary Dx); Hilar cholangiocarcinoma (HCC) 5 10:30 AM CDT Home Care Visit [address] [place] [address] Angeline Horowitz COTA OT HOME VISIT 5 Telephone [facility] Transplant Liver [address] [place] [address] [phone] [place] [address] Alethea Burch RN 5 Telephone [facility] Transplant Liver [address] [place] [address]-63-556 [place] [address] Alethea Burch RN 5 Orders Only [facility] Oncology [address] [facility] Floor 5 [place] [address] Agustina Li MD PhD 5 Telephone [facility] Transplant Liver [address] [place] [address]-84-684 [place] [address] Alethea Burch RN 5 10:00 AM CDT Home Care Visit [address] [address] [address] [place] [address] Bryn Molina, PT PT HOME VISIT 5 Results Follow-Up [facility] Transplant Liver [address] [place] [address]-32-110 [place] [address] Alethea Burch RN Cancer antigen 19-9, Comprehensive metabolic panel, CBC with auto differential, Additional followed-up results: 9 5 Telephone [facility] Transplant Liver [address] [place] [address] 72-54-176 [place] [address] Alethea Burch RN 5 Anticoagulation Telephone Call [facility] Cardiology [address] [facility] Medical Office Building 3 [address] [place] [address] Chris Hart MD Paroxysmal atrial fibrillation (HCC) (Primary Dx) 5 10:00 AM CDT Office Visit [facility] Oncology [address] [facility] [address] [place] [address] Agustina Li MD PhD Hilar cholangiocarcinoma (HCC) (Primary Dx) 5 9:00 AM CDT Clinical Support [facility] Cancer Center at [address] [address] Hilar cholangiocarcinoma (HCC) 5 10:30 AM CDT Home Care Visit [address] [place] [address] Bryn Molina, PT PT HOME VISIT 5 12:15 PM CDT Home Care Visit [address] [place] [address] Angeline Horowitz COTA OT HOME VISIT 5 Orders Only [address] [address] Charlee Tovar [facility] 5 Telephone [facility] Oncology [address] [facility] Floor 5 [place] [address] Marion Aden, ALMITA 5 10:00 AM CDT Home Care Visit [address] [place] [address] Bryn Molina, PT PT REASSESSMENT 5 Surgical Prehabilitation and Readiness Subsequent Outreach [facility] Department of Surgery [address] [place] [address] Serge August CMA 5 Orders Only [facility] Transplant Liver [address] [facility] [address] Mailstop 55-93-017 [place] [address] Mariama Parisi, RN 5 Documentation [facility] Transplant Liver [address] [facility] [address] Mailstop 85-29-934 [place] [address] Nimisha Hauser 5 Telephone [facility] Transplant Liver [address] [facility] [address] Mailstop 61-36-506 [place] [address] Nimisha Hauser 5 Telephone [facility] Transplant Liver [address] [facility] [address] Mailstop 28-22-080 [place] [address] Mariama Parisi, ALMITA 5 Anticoagulation Telephone Call [facility] Cardiology 10[address] [facility] Medical Office Building 3 [address] [place] [address] Chris Hart MD Longstanding persistent atrial fibrillation (HCC) (Primary Dx) 5 12:00 PM CDT Home Care Visit [address] [place] [address] Hannah Roque, OT OT REASSESSMENT 5 Orders Only [facility] Oncology [facility] Floor 5 [place] [address] Agustina Li MD PhD Hilar cholangiocarcinoma (HCC) (Primary Dx) 5 Telephone [facility] Transplant Liver [address] [facility] [address] Mailstop 13-85-964 [place] [address] Mariama Parisi RN 5 10:15 AM CDT Home Care Visit [address] [place] [address] Bryn Molina, PT PT HOME VISIT 5 12:00 PM CDT Home Care Visit [address] [place] [address] Angeline Horowitz COTA OT HOME VISIT 5 Documentation [facility] Oncology [facility] Floor 5 [place] [address] Marion Aden RN 5 1:15 PM CDT Home Care Visit [address] [place] [address] Angeline Horowitz COTA OT HOME VISIT 5 Telephone [facility] Oncology [address] [facility] Floor 5 [place] [address] Marion Aden RN 5 Surgical Prehabilitation and Readiness Subsequent Outreach [facility] Department of Surgery [address] [place] [address] Serge August CMA 5 Anticoagulation Telephone Call [facility] Cardiology [address] [facility] Medical Office Building 3 [address] [place] [address] Chris Hart MD Longstanding persistent atrial fibrillation (HCC) (Primary Dx) 5 12:00 PM CDT Home Care Visit [address] [address] [address] [place] [address] Radha Grullon, PT PT REASSESSMENT 5 Telephone [facility] Cardiology [address] [facility] 8th [place] [address] [place] [address] Chris Hart MD 5 1:45 PM CDT Home Care Visit [address] [place] [address] Angeline Horowitz COTA OT HOME VISIT 5 11:15 AM CDT Home Care Visit [address] [address] [address] [place] [address] Radha Grullon, PT PT HOME VISIT 5 Documentation [facility] Transplant Liver [address] [facility] [address] Mailstop 90-29-908 [place] [address] Nimisha Hauser 5 2:30 PM CDT Home Care Visit [address] [place] [address] Bryn Molina, PT PT HOME VISIT 5 Telephone [facility] Transplant Liver [address] [facility] [address] Mailstop 44-18-878 [place] [address] Mariama Parisi, ALMITA 5 Telephone [facility] Transplant Liver [address] [facility] [address] Mailstop 65-75-396 [place] [address] Mariama Parisi RN 5 Results Follow-Up [facility] Transplant Liver [address] [facility] [address] Mailstop 20-14-196 [place] [address] Mariama Parisi, ALMITA Cancer antigen 19-9, Comprehensive metabolic panel, CBC with auto differential, Additional followed-up results: 3 5 1:45 PM CDT Home Care Visit [address] [address] [place] [address] Angeline Horowitz COTA OT HOME VISIT 5 Anticoagulation Telephone Call [facility] Cardiology [address] [place] [address] Medical Office Building [address] [place] [address] Chris Hart MD 5 9:15 AM CDT Clinical Support [facility] Cancer Center at [address] [phone] 5 8:45 AM CDT Office Visit [facility] Oncology [address] [place] [address] [address] [place] [address] Agustina Li MD PhD Hilar cholangiocarcinoma (HCC) (Primary Dx) 5 7:45 AM CDT Clinical Support [facility] Cancer [place] at [address] [address] Hilar cholangiocarcinoma (HCC); Paroxysmal atrial fibrillation (HCC); High risk medication use; Prolonged INR 5 Anticoagulation Telephone Call [facility] Cardiology [address] [place] [address] Medical Office Building [address] [place] [address] Chris Hart MD 5 12:45 PM CDT Home Care Visit [address] [place] [address] Angeline Horowitz COTA OT HOME VISIT 5 Telephone [facility] Transplant Liver [address] [facility] [address] Mailstop 89-82-652 [place] [address] Genoveva Hobson 5 Documentation [facility] Transplant Liver [address] [facility] [address] Mailstop 54-58-800 [place] [address] Mariama Parisi RN 5 2:00 PM CDT Home Care Visit [address] [place] [address] Bryn Molina, PT PT HOME VISIT 5 Orders Only [facility] Scanning, Provider 5 Documentation [facility] Oncology [address] [facility] Floor 5 [place] [address] Marion Aden RN 5 Anticoagulation Telephone Call [facility] Cardiology [address] [facility] Medical Office Building [address] [place] [address] Chris Hart MD Paroxysmal atrial fibrillation (HCC) (Primary Dx) 5 Telephone [facility] Cardiology [address] [facility] Advanced Medicine 8th [place] [address] [place] [address] Chris Hart MD 5 Home Care Visit [address] [place] [address] Hannah Roque, OT CASE COMMUNICATION 5 Home Care Visit [address] [place] [address] Samia Carias RN NURSE MED RECON FOR THERAPY 5 Telephone [facility] Oncology 10 [facility] [address] [place] [address] Smith Cruz 5 Orders Only [facility] Oncology [address] [place] [address] Floor 5 [place] [address] Agustina Li MD PhD Hilar cholangiocarcinoma (HCC) (Primary Dx) 5 Documentation [facility] Oncology [address] [place] [address] Floor 5 [place] [address] Marion Aden RN 5 Surgical Prehabilitation and Readiness Subsequent Outreach [facility] Department of Surgery [address] [place] [phone] Serge August CMA 5 1:00 PM CDT Home Care Visit [address] [place] [address] Hannah Roque, OT OT INITIAL EVALUATION 5 Home Care Visit [address] [place] [address] Samia Carias RN NURSE MED RECON FOR THERAPY 5 Documentation [facility] Oncology [address] [place] [address] Floor 5 [place] [address] Heidi Diaz RMA Prior Auth 5 Orders Only [facility] Oncology [address] [place] [address] Floor 5 [place] [address] Agustina Li MD PhD 5 Orders Only [facility] Oncology [address] [place] [address] Floor 5 [place] [address] Agustina Li MD PhD 5 Documentation [facility] at [facility] 10 [place] [address] 5 Documentation [facility] Oncology [address] [place] [address] Floor 5 [place] [address] Heidi Diaz RMA Prior Auth 5 9:00 AM CDT Infusion [facility] at [address] [place] [address] Dehydration (Primary Dx); Hilar cholangiocarcinoma (HCC); Hypomagnesemia 5 Anticoagulation Telephone Call [facility] Cardiology [facility] Medical Office Building [address] [place] [address] Chris Hart MD 5 7:45 AM CDT Clinical Support [facility] at [address] [phone] 5 8:30 AM CDT Office Visit [facility] Oncology [address] [place] [address] [address] [place] [address] Leela Guillermo NP Hilar cholangiocarcinoma (HCC) (Primary Dx); Dehydration 5 7:30 AM CDT Clinical Support [address] [phone] Hilar cholangiocarcinoma (HCC); Paroxysmal atrial fibrillation (HCC); High risk medication use; Prolonged INR 5 Plan of Care Documentation [address] [address] [address] [place] [address] 5 1:00 PM CDT Home Care Visit [address] [place] [address] Radha Grullon, PT PT OASIS START OF CARE 5 Telephone [facility] Transplant Liver [address] [facility] [address] Mailstop 10-80-029 [place] [address] Genoveva Hobson 5 Telephone [facility] Transplant Liver [address] [facility] [address] Mailstop 36-10-140 [place] [address] Genoveva Hobson 5 Telephone [facility] Transplant Liver [address] [facility] [address] Mailstop 69-84-658 [place] [address] Mariama Parisi RN 5 Telephone [facility]cology [address] [facility] Floor 5 [place] [address] Landy Hooker, ALMITA 5 Anticoagulation Telephone Call [facility] Cardiology [address] [facility] Floor 1, [address] [place] [address] Seema Mora RN 5 6:12 PM CDT - 5 4:07 PM CDT Hospital Encounter [facility] 1 [place] [address] Gorge Contreras MD PhD Joe, MD Abimael Mcgee, MD Odalys Matthews, MD Sweta Felipe Geneva Enriquez, MD Menon, Priya, MD Hoyt, Smith Hinton MD Diarrhea, unspecified type (Primary Dx); FTT (failure to thrive) in adult; Acute hypoxemic respiratory failure (HCC); Hypoxia Discharge Disposition: Discharge to home or self care 5 Travel 5 2:20 PM CDT Ancillary Procedure [facility] Vascular Lab IP 1 [facility] [address] [place] [address] 5 Surgical Prehabilitation and Readiness Subsequent Outreach [facility] Department of Surgery [address] [place] [address] Serge August CMA [address] [place] [address] Yee Marin RN 5 Orders Only [facility] Oncology [address] [facility] Floor 5 [place] [phone] Landy Hooker, ALMITA Hilar cholangiocarcinoma (HCC) (Primary Dx) 5 7:55 AM CDT Ancillary Procedure [facility] Vascular Lab IP 1 [facility] [address] [place] [address] 5 11:35 AM CDT Anesthesia Event [facility] [facility] [place] [address] Arlene Phillips MD 5 10:56 AM CDT - 5 11:26 AM CDT Surgery [facility] 1 [place] [address] Abram Smith MD SIGMOID BIOPSY 5 Documentation [facility] Transplant Liver [address] [facility] [address] Mailstop [phone] [place] [address] Mariama Parisi RN 5 Surgical Prehabilitation and Readiness Subsequent Outreach [facility] Department of Surgery [address] [place] [address] Serge August CMA 5 Telephone [facility] Cardiology [address] [facility] Floor 1, [address] [place] [phone] Chris Hart MD 5 Orders Only [facility] Oncology [address] [facility] Floor 5 [place] [phone] Landy Hooker RN Hilar cholangiocarcinoma (HCC) (Primary Dx) 5 Results Follow-Up [facility] Cardiology [address] [facility] [address] [place] [address] Seema Mora RN Protime-INR, aPTT 5 3:53 PM CDT - 5 11:59 PM CDT Hospital Encounter [facility] Radiology [facility] [address] [place] [address] Discharge Disposition: Discharge to home or self care 5 2:54 PM CDT - 5 11:59 PM CDT Hospital Encounter [facility]) [address] [place] [id number] Other specified hypotension (Primary Dx); Nausea; Elevated INR Discharge Disposition: Discharge to home or self care 5 Telephone [facility] Oncology [facility] Floor 5 [place] [phone] Landy Hooker RN 5 Telephone [facility] Gastroenterolog y [address] [place] [address] Medical Office Building 4, [address] [place] [phone] Erin Dillard RN GI Preprocedure 5 Telephone [facility] at [address] [phone] Kait Marroquin, ASHLEY 5 7:24 PM CDT - 5 3:09 AM CDT Hospital Encounter [facility] ([facility]) [address] [place] [address] Nausea and vomiting, unspecified vomiting type (Primary Dx); Hilar cholangiocarcinoma (HCC) Discharge Disposition: Discharge to home or self care 5 Telephone [facility] at [address] [phone] Kait Marroquin, ASHLEY 5 Telephone [facility] Oncology [facility] Floor 5 [place] [phone] Landy Hooker RN 5 Orders Only [facility] Oncology [facility] Floor 5 [place] [phone] Landy Hooker, RN Hand foot syndrome (Primary Dx); Hilar cholangiocarcinoma (HCC) 5 Anticoagulation Telephone Call [facility] Cardiology [address] [facility] Medical Office Building 3 [address] [place] [phone] Chris Hart MD Paroxysmal atrial fibrillation (HCC) (Primary Dx) 5 Telephone [facility] [address] [facility] [address] [place] [phone] Zane Richey III, MD 5 1:15 PM CDT Ancillary Procedure [facility] [address] [facility] [address], [place] [phone] Cardiac pacemaker in situ (Primary Dx); Sick sinus syndrome (HCC) 5 9:30 AM CDT Office Visit [facility] Gasteroenterolo gy [address] [facility] 12th [place] [address] [place] [address] Jamin Posey MD Cholangiocarcinoma (HCC) (Primary Dx); Hilar cholangiocarcinoma (HCC) 5 11:30 AM CDT Telemedicine [facility] Radiation Oncology [address] [place] [address] [place] [address] Gorge Garza MD PhD Cholangiocarcinoma (HCC) (Primary Dx) 5 12:32 PM CDT Anesthesia Event [facility] Digestive Disease [address] [place] [address] Arpan Guzman MD 5 11:30 AM CDT - 5 12:00 PM CDT Surgery [facility] Digestive Disease [address] [place] [address] Chris Holcomb MD ENDO ENDOSCOPIC RETROGRADE CHOLANGIOPANCREATOGRAPHY REMOVE/CHANGE STENT [GI513] 5 10:17 AM CDT - 5 2:27 PM CDT Hospital Encounter 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 S/p vitamin K 2.5 mg oral once 08/22, s/p Vit K 10 IV 08/23 - INR 1.63 08/24-- Resumed warfarin home dose 2 mg daily (08/24-p) - Daily INR Assessment & Plan (09/03/2024 2:39 PM CDT): - Secondary to nausea/vomiting/diarhea while on warfarin. INR > 9 y - s/p Vit K in [facility]. S/p vitamin K 2.5 mg oral once 08/22, s/p Vit K 10 IV 08/23 - INR 1.63 08/24-- Resumed warfarin home dose 2 mg daily (08/24-p) - Daily INR Assessment & Plan (09/02/2024 10:30 AM CDT): - Secondary to nausea/vomiting/diarhea while on warfarin. INR > 9 y - s/p Vit K in [facility]. S/p vitamin K 2.5 mg oral once 08/22, s/p Vit K 10 IV 08/23 - INR 1.63 08/24-- Resumed warfarin home dose 2 mg daily (08/24-p) - Daily INR Assessment & Plan (09/01/2024 4:08 PM CDT): - Secondary to nausea/vomiting/diarhea while on warfarin. INR > 9 y - s/p Vit K in [facility]. S/p vitamin K 2.5 mg oral once 08/22, s/p Vit K 10 IV 08/23 - INR 1.63 08/24-- Resumed warfarin home dose 2 mg daily (08/24-p) - Daily INR Assessment & Plan (08/31/2024 11:42 AM CDT): - Secondary to nausea/vomiting/diarhea while on warfarin INR > 9 y - s/p Vit K in [facility] S/p vitamin K 2.5 mg oral once 08/22, s/p Vit K 10 IV 08/23 INR 1.63 08/24-- Resumed warfarin home dose 2 mg daily (08/24-p) Daily INR See atrial fibrillation Assessment & Plan (08/30/2024 12:11 PM CDT): - Secondary to nausea/vomiting/diarhea while on warfarin INR > 9 y - s/p Vit K in [facility] S/p vitamin K 2.5 mg oral once 08/22, s/p Vit K 10 IV 08/23 INR 1.63 08/24-- Resumed warfarin home dose 2 mg daily (08/24-p) Daily INR Assessment & Plan (08/29/2024 1:59 PM CDT): - Secondary to nausea/vomiting/diarhea while on warfarin INR > 9 y - s/p Vit K in [facility] S/p vitamin K 2.5 mg oral once 08/22, s/p Vit K 10 IV 08/23 INR 1.63 08/24-- Resumed warfarin home dose 2 mg daily (08/24-p) Daily INR Assessment & Plan (08/28/2024 5:10 PM CDT): - Secondary to nausea/vomiting/diarhea while on warfarin INR > 9 y - s/p Vit K in [facility] S/p vitamin K 2.5 mg oral once 08/22, s/p Vit K 10 IV 08/23 INR 1.63 08/24-- Resumed warfarin home dose 2 mg daily (08/24-p) Daily INR Assessment & Plan (08/27/2024 6:05 PM CDT): - Secondary to nausea/vomiting/diarhea while on warfarin INR > 9 y - s/p Vit K in [facility] S/p vitamin K 2.5 mg oral once 08/22, s/p Vit K 10 IV 08/23 INR 1.63 08/24-- Resumed warfarin home dose 2 mg daily (08/24-p) Daily INR Assessment & Plan (08/26/2024 5:10 PM CDT): - Secondary to nausea/vomiting/diarhea while on warfarin INR > 9 y - s/p Vit K in [facility] S/p vitamin K 2.5 mg oral once 08/22, s/p Vit K 10 IV 08/23 INR 1.63 08/24-- Resumed warfarin home dose 2 mg daily (08/24-p) Daily INR Assessment & Plan (08/25/2024 6:44 PM CDT): - Secondary to nausea/vomiting/diarhea while on warfarin INR > 9 y - s/p Vit K in [facility] S/p vitamin K 2.5 mg oral once 08/22, s/p Vit K 10 IV 08/23 INR 1.63 08/24-- Resumed warfarin home dose 2 mg daily (08/24-p) Daily INR Assessment & Plan (08/24/2024 1:31 PM CDT): - Secondary to nausea/vomiting/diarhea while on warfarin INR > 9 y - s/p Vit K in [facility] S/p vitamin K 2.5 mg oral once 08/22, s/p Vit K 10 IV 08/23 INR 1.63 08/24-- Resumed warfarin home dose 2 mg daily (08/24-p) Assessment & Plan (08/23/2024 12:11 PM CDT): - Secondary to nausea/vomiting/diarrhea while on warfarin INR > 9 y - s/p Vit K in [facility] - , continue [...] 9 y - s/p Vit K in [facility] - , continue to hold warfarin, bleeding precautions ordered Ordered vitamin K 2.5 mg oral once 08/22 Oral intake encouraged. Assessment & Plan (08/21/2024 9:15 PM CDT): - INR > 9 with hematuria noted recently - s/p Vit K in [facility] - Trend INR [...] 025 Assessment & Plan (06/09/2024 8:50 PM ACUTE CARE NURSE): -Remains compliant sotalol -increase to 80 mg [...] 7 Assessment & Plan (03/16/2024 5:32 PM ACUTE CARE NURSE): - H/H- 8.9 Monitor CBC closely Lactic acidosis 03/15/2024 Assessment & Plan (03/16/2024 5:29 PM ACUTE CARE NURSE): Lactate 4 in [facility]. Reports normal PO intake. Improved to 2.3 after 1L IVF. Unclear etiology. Lactate lateralized on a.m. labs Hypomagnesemia 03/10/2024 Hypophosphatemia 02/11/2024 Dehydration 02/10/2024 Mood disorder 01/18/2024 Assessment & Plan (01/18/2024 8:13 PM CDT): Continue home citalopram Shortness of breath 01/18/2024 Assessment & Plan (03/16/2024 5:31 PM ACUTE CARE NURSE): P/w SOB, fatigue, generalized weakness. Similar episodes in the past w/ unremarkable workup. In [facility], Tmax 99.4, satting [...] negative to date -given cefe x1 in [facility]; hold off on [...] awaiting transplant. He was recently adm to [facility] from 08/21 - 09/07/24 w/ N/V/D, [...] ERCP and stent exchange on 10/[address] [facility] Currently he remains on reduced [...] awaiting transplant. He was recently adm to [facility] from 08/21 - 09/07/24 w/ N/V/D, [...] ERCP and stent exchange on 10/[address] [facility] Currently he remains on reduced [...] awaiting transplant. He was recently adm to [facility] from 08/21 - 09/07/24 w/ N/V/D, [...] ERCP and stent exchange on 10/[address] [facility] Currently he remains on reduced [...] awaiting transplant. He was recently adm to [facility] from 08/21 - 09/07/24 w/ N/V/D, [...] ERCP and stent exchange on 10/[address] [facility] Currently he remains on reduced [...] awaiting transplant. He was recently adm to [facility] from 08/21 - 09/07/24 w/ N/V/D, [...] ERCP and stent exchange on 10/[address] [facility] Currently he remains on reduced [...] awaiting transplant. He was recently adm to [facility] from 08/21 - 09/07/24 w/ N/V/D, [...] ERCP and stent exchange on 10/[address] [facility] Currently he remains on reduced dose capecitabine (reduced dose), q2 weeks Assessment & Plan (10/17/2024 12:39 PM CDT): Follows Dr. 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 Since then he has underwent 8 cycles of Gemcitabine + cisplatin + nab-paclitaxel and is currently on maintenance capecitabine and is awaiting transplant. He was recently adm to [facility] from 08/21 - 09/07/24 w/ N/V/D, [...] ERCP and stent exchange on 10/[address] [facility] Currently he remains on reduced dose capecitabine (reduced dose), q2 weeks Assessment & Plan (10/16/2024 3:04 PM CDT): follows Dr. 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 Since then he has underwent 8 cycles of Gemcitabine + cisplatin + nab-paclitaxel and is currently on maintenance capecitabine and is awaiting transplant. He was recently adm to [facility] from 08/21 - 09/07/24 w/ N/V/D, [...] ERCP and stent exchange on 10/[address] [facility] Currently he remains on reduced dose capecitabine (reduced dose), q2 weeks Assessment & Plan (10/15/2024 8:47 PM CDT): follows Dr. 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 Since then he has underwent 8 cycles of Gemcitabine + cisplatin + nab-paclitaxel and is currently on maintenance capecitabine and is awaiting transplant. He was recently adm to [facility] from 08/21 - 09/07/24 w/ N/V/D, [...] ERCP and stent exchange on 10/[address] [facility] Currently he remains on reduced [...] 4:08 PM CDT): Established care with [facility]/p chemo/radiation, active on transplant list and on [...] capecitabine Assessment & Plan (03/16/2024 5:32 PM ACUTE CARE NURSE): Dx 11/2023 after presenting with jaundice in [...] - Plan for further follow up with [facility] as outpatient Assessment & Plan (01/21/2024 [...] resectable. Planned for port 12/01 and start [place]+Cis+Abrax after, which will be postponed for 1wk [...] 10/24/2023 Assessment & Plan (03/15/2024 9:54 PM ACUTE CARE NURSE): -cont betahistine 24mg tid (home supply) Assessment [...] 02/26/2023 Assessment & Plan (06/09/2024 8:48 PM ACUTE CARE NURSE): -Status post dual-chamber pacemaker placement -Device interrogation [...] and waiting for AMRK Assessment & Plan (10/19/2024 1:30 PM CDT): [...] above Assessment & Plan (06/09/2024 8:49 PM ACUTE CARE NURSE): -Status post radiofrequency catheter ablation with Dr. Richey -Remains compliant on apixaban and sotalol -Noted to have a sustained episode recently causing symptoms -Increase sotalol to 80 mg b.i.d. -Obtain an EKG after 3 doses to evaluate QT interval -Follow up in 6 months for 12 lead EKG, device interrogation, and clinic visit Assessment & Plan (03/15/2024 10:22 PM ACUTE CARE NURSE): S/p PVI, CTI ablation 09/09/23. Follows w/ [...] AM CDT): Asymptomatic, device-detected AF. Low burden. [id number] = 2. --Continue apixaban 5 mg BID Lightheadedness 03/12/2022 Small bowel obstruction 12/23/2021 Sinus bradycardia 05/29/2021 Sick sinus syndrome 05/19/2021 Overview (05/19/2021): Added automatically from request for surgery [id number] Assessment & Plan (03/15/2024 9:53 PM ACUTE CARE NURSE): -s/p PPM Assessment & Plan (01/21/2024 1:23 [...] device function. --Continue remote device f/u via [employer] Bradycardia 05/16/2021 Advance care planning 03/22/2021 SYLVIE [...] CPAP Assessment & Plan (03/16/2024 5:27 PM ACUTE CARE NURSE): Continue CPAP qhs Assessment & Plan (01/21/2024 [...] needed Assessment & Plan (03/16/2024 5:27 PM ACUTE CARE NURSE): Continue Amlodipine, Lisinopril, HCTZ Assessment & Plan [...] statin Assessment & Plan (03/16/2024 5:25 PM ACUTE CARE NURSE): Continue statin Assessment & Plan (01/18/2024 7:01 [...] Plan (10/23/2024 7:49 AM CDT): [facility] positive for gram negative bacilli (verbal report per patient). Prior culture in 2023 positive for klebsiella (R: ampicillin) Given fever of 100.9 on 10/13, positive blood culture- for E.coli(resistant to multiple ABX), recent ERCP - will opt to treat as cholangitis., negative UA. Start Zosyn, meropenem EOT 10/22 F/u b/c on 10/15-no growth Assessment & Plan (10/22/2024 10:33 AM CDT): [facility] positive for gram negative bacilli (verbal report per patient). Prior culture in 2023 positive for klebsiella (R: ampicillin) Given fever of 100.9 on 10/13, positive blood culture- for E.coli(resistant to multiple ABX), recent ERCP - will opt to treat as cholangitis., negative UA. Start Zosyn ,--meropenem EOT 10/22 F/u b/c on 10/15-no growth Assessment & Plan (10/21/2024 10:46 AM CDT): [facility] positive for gram negative bacilli (verbal report per patient). Prior culture in 2023 positive for klebsiella (R: ampicillin) Given fever of 100.9 on 10/13, positive blood culture- for E.coli(resistant to multiple ABX), recent ERCP - will opt to treat as cholangitis., negative UA. Start Zosyn ,--meropenem EOT 10/22 F/u b/c on 10/15-ngtd Assessment & Plan (10/20/2024 10:21 AM CDT): [facility] positive for gram negative bacilli (verbal report per patient). Prior culture in 2023 positive for klebsiella (R: ampicillin) Given fever of 100.9 on 10/13, positive blood culture- for E.coli(resistant to multiple ABX), recent ERCP - will opt to treat as cholangitis., negative UA. Start Zosyn ,--meropenem EOT 10/22 F/u b/c on 10/15-ngtd Assessment & Plan (10/19/2024 1:30 PM CDT): [facility] positive for gram negative bacilli (verbal report per patient). Prior culture in 2023 positive for klebsiella (R: ampicillin) Given fever of 100.9 on 10/13, positive blood culture- for E.coli(resistant to multiple ABX), recent ERCP - will opt to treat as cholangitis., negative UA. Start Zosyn , anticipate to switch to oral once records form [facility] is found. F/u b/c on 10/15-ngtd ID consult for ESBL E.coli and ABX recs. Assessment & Plan (10/18/2024 11:27 AM CDT): [facility] positive for gram negative bacilli (verbal report per patient). Prior culture in 2023 positive for klebsiella (R: ampicillin) Given fever of 100.9 on 10/13, positive blood culture- for E.coli(susceptibilities pending), recent ERCP - will opt to treat as cholangitis., negative UA. Start Zosyn , anticipate to switch to oral once records form [place] is found. Requested records 10/16 F/u b/c on 10/15-ngtd Assessment & Plan (10/17/2024 12:39 PM CDT): [facility] positive for gram negative bacilli (verbal report per patient). Prior culture in 2023 positive for klebsiella (R: ampicillin) Given fever of 100.9 on 10/13, positive blood culture- for E.coli, recent ERCP - will opt to treat as cholangitis., negative UA. Start Zosyn , anticipate to switch to oral once records form [facility] is found. Requested records 10/16 F/u b/c on 10/15-ngtd Assessment & Plan (10/16/2024 3:04 PM CDT): [facility] positive for gram negative bacilli (verbal report per patient). Prior culture in 2023 positive for klebsiella (R: ampicillin) Given fever of 100.9 on 10/13, positive blood culture, recent ERCP - will opt to treathim as cholangitis., negative UA. Start Zosyn , anticipate to switch to oral once records form [place] is found. Requested records 10/16 F/u b/c on 10/15 Assessment & Plan (10/15/2024 8:47 PM CDT): [facility] positive for gram negative bacilli (verbal report per patient). Prior culture in 2023 positive for klebsiella (R: ampicillin) Given fever of 100.9 on 10/13, positive blood culture, recent ERCP - will opt to treathim as cholangitis., negative UA. Start Zosyn , anticipate to switch to oral once records form [facility] is found. F/u b/c on 10/15 [...] Immunization Administration Dates Next Due COVID-19 mRNA (MetaCarta) 0.3 m L (30 mcg) vaccine (12 [...] Bivalent Vaccine 10 mcg/0.2 mL (6 MOS-5 YRS)-Pearsall/Yellow 02/26/2022 Pfizer SARS-CoV-2 Monovalent Vaccination (12+ Yrs) [...] materials from doctor or pharmacy Never 11/05/2024 [facility] Utilities Answer Date Recorded In the past 12 months has th e [employer], oil, or water [employer] threatened to shut off services in your [...] often do you attend chur ch or shinto services? More than 4 times per year 10/19/2024 Do you belong to any clubs o r organizations such as samaritan groups, unions, fraternal or athletic groups, or [...] Date Recorded PHQ-2 Total Score 0 10/19/2024 [facility] - Occupational [...] any time in the past 12 [facility], were you homeless or living in a longterm (including now)? No 10/19/2024 Personal Safety Answer Date Recorded Have you ever been in or are you currently in a harmful physical or emotional relationship or is someone making you feel afraid or unsafe? 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 ACUTE CARE NURSE Gender Identity Male 12/06/2019 4:39 PM CDT [...] cholangiocarcinoma (HCC) Medical Devices Implanted Type Area Snowmaker Device Identifier Shelf Expiration Date Model / Serial / Lot [employer] Vascade Mvp 6-12fr Venous Closure [id number] - [id number] - [id number] Implanted:Qty : 1 on 09/09/2023 by Zane Richey III, MD at [facility] Collagen [employer] 06/20/2025 800-612C- 10U / [id number] / [id number] [employer] Vascade Mvp 6-12fr Venous Closure [id number] - [id number] - [id number] Implanted:Qty : 1 on 09/09/2023 by Zane Richey III, MD at [facility] Collagen [employer] 06/20/2025 800-612C- 10U / [id number] 26A / [id number] [id number] [employer] Vascade Mvp 6-12fr Venous Closure [id number] - [id number] - [id number] Implanted:Qty : 1 on 09/09/2023 by Zane Richey III, MD at [facility] Collagen [employer] 06/20/2025 800-612C- 10U / [id number] 26A / [id number] [employer] 2088tc/58 Tendril Sts 6fr 58cm Is-1 Connector Active Fixation Bipolar Soft - [id number] - [id number] Implanted:Qty : 1 on 06/30/2021 by Zane Richey III, MD at [facility] Lead [employer] [id number] 03/05/2024 2088TC/58 / [id number] / [employer] 2088tc/52 Tendril Sts 6fr 52cm Is-1 Connector Active Fixation Bipolar Soft - [id number] - [id number] Implanted:Qty : 1 on 06/30/2021 by Zane Richey III, MD at [facility] Lead [employer] [id number] 03/05/2024 2088TC/52 / [id number] / [employer] [id number] Assurity Mri 03i50tn 2 Chamber Is-1 Connector Thk6mm Pacemaker - [id number] - [id number] Implanted:Qty : 1 on 06/30/2021 by Zane Richey III, MD at [facility] Pacemaker Left: Chest [employer] [id number] 11/02/2022 [id number] / [id number] / [employer]ame Advanix 7fr 10cm Rapid Exchange Temporary Taper Tip Thin Wall 2 [id number] - [id number] Implanted:Qty : 1 on 10/15/2024 by Chris Holcomb MD at [facility] Stent N/A: Bile Duct [employer]ame 06/10/2026 [id number] / / [id number] [employer] Advanix 7fr 10cm Rapid Exchange Temporary Taper Tip Thin Wall 2 [id number] - [id number] Implanted:Qty : 1 on 10/15/2024 by Chris Holcomb MD at [facility] Stent N/A: Bile Duct [employer]ame 05/26/2026 [id number] / / [id number] [employer] Excela Low Porfile Power Port 8fr 1.6mm 1 Lumen [id number] - [id number] Implanted:Qty : 1 on 12/09/[address] [facility] [employer] 09/18/2028 [id number] / / [id number] Explanted Type Area Snowmaker Device Identifier Shelf Expiration Date Model / Serial / Lot [employer] Flexi-Stent 5fr 7cm Small Pigtail Flexible .035in Stent 6554 - [id number] Implanted:Qty: 1 on 11/15/2023 by Chris Holcomb MD at [facility] Explanted:Qty: 1 on 01/13/2024 at [facility] Stent Pancreas [employer] 06/06/2028 [id number] / / [id number] Description:Not present upon start of procedure [employer] Cook Zimmon 7fr 10cm Biliary Double Pigtail Stent [id number] - [id number] Implanted:Qty: 1 on 11/15/2023 by Chris Holcomb MD at [facility] Explanted:Qty: 1 on 01/13/2024 by Sherry Alberts DO at [facility] Stent Bile Duct [employer] 07/08/2026 [id number] / / [id number] [employer]ame Advanix 7fr 10cm Rapid Exchange Temporary Taper Tip Thin Wall 2 [id number] - [id number] Implanted:Qty: 1 on 01/13/2024 by Chris Holcomb MD at [facility] Explanted:Qty: 1 on 03/18/2024 by Chris Holcomb MD at [facility] Stent N/A: Bile Duct [employer]ame [id number] 10/20/2025 [id number] / / [id number] [employer] Advanix 7fr 10cm Rapid Exchange Temporary Taper Tip Thin Wall 2 [id number] - [id number] Implanted:Qty: 1 on 01/13/2024 by Sherry Alberts DO at [facility] Explanted:Qty: 1 on 03/18/2024 by Chris Holcomb MD at [facility] Stent N/A: Bile Duct [employer]ame [id number] 11/18/2025 [id number] / / [id number] [employer] Advanix 7fr 10cm Rapid Exchange Temporary Taper Tip Thin Wall 2 [id number] - [id number] Implanted:Qty: 1 on 03/18/2024 by Chris Holcomb MD at [facility] Explanted:Qty: 1 on 08/07/2024 by Sherry Alberts DO at [facility] Stent N/A: Bile Duct [employer] 01/12/2026 [id number] / / [id number] [employer] Advanix 7fr 12cm Rapid Exchange Temporary Taper Tip Thin Wall 2 [id number] - [id number] Implanted:Qty: 1 on 03/18/2024 by Chris Holcomb MD at [facility] Explanted:Qty: 1 on 08/07/2024 by Sherry Alberts DO at [facility] Stent N/A: Bile Duct [employer] 01/06/2026 [id number] 0 / / [id number] Description:Not present on t his exam [employer] Advanix 7fr 10cm Rapid Exchange Temporary Taper Tip Thin Wall 2 [id number] - [id number] Implanted:Qty: 1 on 05/18/2024 by Chris Holcomb MD at [facility] Explanted:Qty: 1 on 08/07/2024 by Sherry Alberts DO at [facility] Stent N/A: Bile Duct [employer] 03/17/2026 [id number] / / [id number] [employer] Advanix 7fr 10cm Rapid Exchange Temporary Taper Tip Thin Wall 2 [id number] - [id number] Implanted:Qty: 1 on 05/18/2024 by Chris Holcomb MD at [facility] Explanted:Qty: 1 on 08/07/2024 at [facility] Stent N/A: Bile Duct [employer] 03/18/2026 [id number] / / [id number] Description:Not present on t his exam [employer] Advanix 7fr 10cm Rapid Exchange Temporary Taper Tip Thin Wall 2 [id number] - [id number] Implanted:Qty: 1 on 08/07/2024 by Sherry Alberts DO at [facility] Explanted:Qty: 1 on 10/15/2024 by Chris Holcomb MD at [facility] Stent N/A: Bile Duct [employer] 05/26/2026 [id number] 0 / / [id number] [employer] Advanix 7fr 10cm Rapid Exchange Temporary Taper Tip Thin Wall 2 [id number] - [id number] Implanted:Qty: 1 on 08/07/2024 by Sherry Alberts DO at [facility] Explanted:Qty: 1 on 10/15/2024 by Chris Holcomb MD at [facility] Stent N/A: Bile Duct [employer] 05/26/2026 [id number] 0 / / [id number] [employer]immon Od7 Fr L15 Cm Tapered Tip 2 Pigtail Curve Stent Biliary [employer]ethylene Sterile Disposable Purple [id number] - [id number] Implanted:Qty: 1 on 11/15/2023 by Chris Holcomb MD at [facility] Explanted:Qty: 1 on 01/13/2024 by Sherry Alberts DO at [facility] Bile Duct [employer] 07/03/2026 [id number] / / [id number] Procedures Procedure Name Priority Date/Time Associated Diagnosis [...] CDT HEMOGLOBIN A1C Routine 06/22/2024 2:10 PM ACUTE CARE NURSE Moderate aortic regurgitation Nonrheumatic mitral valve regurgitation Abnormal finding of blood chemistry, unspecified HEPATITIS C ANTIBODY Routine 06/08/2024 7:28 AM ACUTE CARE NURSE Hilar cholangiocarcinoma (HCC) LIPID PANEL Routine 06/08/2024 7:28 AM ACUTE CARE NURSE Hilar cholangiocarcinoma (HCC) from Last 3 Months or Most Recently Relevant to Health Maintenance Results * Urinalysis reflex to microscopic and culture Urine, clean voided (11/01/2024 8:13 PM CDT) Color, ur Yellow Yellow Clarity, ur Clear Clear [facility] Specific gravity, ur 1.025 1.003 - 1.030 [facility] pH, urine 6.0 [facility] Comment: Interpretive Data U rine pH is affected by diet, medications, systemic acid-base disturbances, and renal tubular function. pH may affect urinary stone formation. For example, urine pH below 6.0 may help reduce the tendency for calcium phosphate stones and pH greater than 6.0 may reduce the tendency for uric acid stone formation. Source: [facility] [place] Current Interpretive Data was last revised on 2017 Protein, ur ql Negative Negative [facility] Glucose, ur ql Negative Negative [facility] Ketones, ur Negative Negative [facility] Bilirubin, ur Negative Negative [facility] Blood, ur Negative Negative [facility] Urobilinogen, ur <2.0 <2.0 mg/dL [facility] Nitrite, ur Negative Negative [facility] Leukocyte esterase, ur Negative Negative [facility] UA reflex comment Reflex conditions for microscopic UA and culture not met. [facility] Urine, clean voided 11/01/2024 8:13 PM CDT 11/01/2024 8:17 PM CDT us Leela Sandhu COKE CRANE OPERATOR LAB MICROBIOLOGY - GENERA L ORDERABLES Final Result [facility] Department [place] [address] * X-ray chest 1 view (11/01/2024 8:06 [...] by: Jacobo Grace M.D. us Leela Sandhu COKE CRANE OPERATOR IMG XR PROCEDURES Final R esult * POC Blood Gas and Chemistries, Arterial - (11/01/2024 7:56 PM CDT) Pathologist [facility] [place] Lactate POC 1.1 0.7 - 2.0 mmol/L Blood 11/01/2024 7:56 PM CDT 11/01/2024 7:56 PM CDT us Agustina Li MD PhD LAB POCT ORDERABLES - DEVIC E Final Result [facility] Department of Laboratories [place], [place] [id number] * eGFR (11/01/2024 7:51 PM CDT) Pathologist [facility] [place] eGFR >90 >=60 mL/min/1. 73 m2 Comment: [...] 11/01/2024 8:04 PM CDT us Leela Sandhu COKE CRANE OPERATOR LAB BLOOD ORDERABLES Lila dawson Result [facility] Department [place] [address] * (ABNORMAL) Differential, auto (11/01/2024 7:51 PM CDT) Neutrophil abs 5.25 1.50 - 6.50 K/cumm Imm gran abs 0.08 0.00 - 0.10 K/cumm [facility] Lymphocyte abs 0.44(L) 0.80 - 3.30 K/cumm [facility] Monocyte abs 1.00(H) 0.20 - 0.80 K/cumm [facility] Eosinophil abs 0.03 0.00 - 0.50 K/cumm [facility] Basophil abs 0.02 0.00 - 0.10 K/cumm [facility] Neutrophil pct 76.9 % [facility] Comment: Interpretive Data Percent cell count reference ranges are not reported, since discordance with absolute values may lead to misinterpretation of CBC data. Current Interpretive Data was last revised on 2017. Imm gran pct 1.2 % [facility] Comment: Interpretive Data Percent cell count reference ranges are not reported, since discordance with absolute values may lead to misinterpretation of CBC data. Current Interpretive Data was last revised on 2017. Lymphocyte pct 6.5 % [facility] Comment: Interpretive Data Percent cell count reference ranges are not reported, since discordance with absolute values may lead to misinterpretation of CBC data. Current Interpretive Data was last revised on 2017. Monocyte pct 14.7 % [facility] Comment: Interpretive Data Percent cell count reference ranges are not reported, since discordance with absolute values may lead to misinterpretation of CBC data. Current Interpretive Data was last revised on 2017. Eosinophil pct 0.4 % [facility] Comment: Interpretive Data Percent cell count reference ranges are not reported, since discordance with absolute values may lead to misinterpretation of CBC data. Current Interpretive Data was last revised on 2017. Basophil pct 0.3 % [facility] Comment: Interpretive Data Percent cell count reference ranges are not reported, since discordance with absolute values may lead to misinterpretation of CBC data. Current Interpretive Data was last revised on 2017. Blood 11/01/2024 7:51 PM CDT 11/01/2024 8:04 PM CDT us Leela Sandhu COKE CRANE OPERATOR LAB BLOOD ORDERABLES Lila dawson Result [facility] Department [place] [address] * (ABNORMAL) CBC with auto differential (11/01/2024 7:51 PM CDT) Pathologist [facility] [place] WBC 6.82 3.80 - 9.90 K/cumm Hgb 10.8(L) 13.0 - 17.5 g/dL [facility] Hct 33.1(L) 38.9 - 50.3 % [facility] Plt 225 150 - 400 K/cumm [facility] MPV 10.8 9.1 - 12.3 fL [facility] RBC 3.39(L) 4.30 - 5.80 M/cumm [facility] MCV 97.6(H) 81.3 - 96.4 fL [facility] MCH 31.9 27.1 - 33.3 pg [facility] MCHC 32.6 32.3 - 35.7 g/dL [facility] RDW CV 17.9(H) 11.1 - 14.9 % [facility] RDW SD 64.5(H) 35.7 - 48.1 fL [facility] NRBC abs 0.00 0.00 - 0.01 K/cumm [facility] Blood 11/01/2024 7:51 PM CDT 11/01/2024 8:04 PM CDT Leela Sandhu COKE CRANE OPERATOR LAB BLOOD ORDERABLES Lila l Result Performing Organization Address City/[facility] Co de Phone Number [facility] [place] [address] * (ABNORMAL) Protime-INR (11/01/2024 7:51 PM CDT) PT 22.3(H) 9.7 - 13.0 sec INR 2.04(H) 0.90 - 1.20 [facility] Comment: Interpretive data Oral anticoagulant therapeutic ranges: Venous thromboembolism prophylaxis or treatment: 2.0-3.0 CARDIOLOGY Standard range: 2.0-3.0 High-intensity range: 2.5-3.5 Refer to indication-specific guidelines for appropriate target ranges for prosthetic heart valve replacement. Current interpretive data was last revised on 2019. Blood 11/01/2024 7:51 PM CDT 11/01/2024 8:06 PM CDT Leela Sandhu COKE CRANE OPERATOR LAB BLOOD ORDERABLES Lila l Result Performing Organization Address City/[facility]/ZIP Co de Phone Number [facility] [place] [address] * (ABNORMAL) Comprehensive metabolic panel (11/01/2024 7:51 PM CDT) Sodium 134(L) 135 - 145 mmol/L Potassium, pl 4.2 3.3 - 4.9 mmol/L [facility] Chloride 100 97 - 110 mmol/L [facility] CO2 24 22 - 32 mmol/L [facility] Anion gap 10 2 - 15 mmol/L [facility] BUN 38(H) 6 - 25 mg/dL [facility] Creatinine 0.80 0.80 - 1.30 mg/dL [facility] Glucose 111 70 - 199 mg/dL [facility] Comment: Interpretive Data Fasting glucose >/= 126 [...] 2022. Calcium 9.3 8.5 - 10.3 mg/dL [facility] Bilirubin, total 0.6 0.1 - 1.2 mg/dL [facility] Protein, pl 7.2 6.5 - 8.5 g/dL [facility] Albumin 3.7 3.5 - 5.0 g/dL [facility] Alk phos 559(H) 40 - 130 Units/L [facility] ALT 118(H) 7 - 55 Units/L [facility] AST 95(H) 10 - 50 Units/L [facility] Blood 11/01/2024 7:51 PM CDT 11/01/2024 8:04 PM CDT us Leela Sandhu COKE CRANE OPERATOR LAB BLOOD ORDERABLES Lila dawson Result [facility] Department [place] [address] * Respiratory pathogen panel Nasopharyngeal (11/01/2024 7:44 PM CDT) Pathologist [facility] [place] Influenza A RNA Not Detected Not Detected Influenza B RNA Not Detected Not Detected [facility] RSV RNA Not Detected Not Detected [facility] COVID-19 RNA Not Detected Not Detected [facility] Coronavirus 229E RNA Not Detected Not Detected [facility] Coronavirus HKU1 RNA Not Detected Not Detected [facility] Coronavirus NL63 RNA Not Detected Not Detected [facility] Coronavirus OC43 RNA Not Detected Not Detected [facility] Adenovirus DNA Not Detected Not Detected [facility] Metapneumovirus RNA Not Detected Not Detected [facility] Rhinovirus/Enterov irus RNA Not Detected Not Detected [facility] Parainfluenza 1 RNA Not Detected Not Detected [facility] Parainfluenza 2 RNA Not Detected Not Detected [facility] Parainfluenza 3 RNA Not Detected Not Detected [facility] Parainfluenza 4 RNA Not Detected Not Detected [facility] B. pertussis DNA Not Detected Not Detected [facility] B. parapertussis DNA Not Detected Not Detected [facility] C. pneumoniae DNA Not Detected Not Detected [facility] M. pneumoniae DNA Not Detected Not Detected [facility] Nasopharyngeal 11/01/2024 7: 44 PM CDT 11/01/2024 7:54 PM CDT Narrative [facility] - 11/01/2024 8:51 PM CDT Is the Patient experiencing symptoms consistent with COVID?->Yes Surveillance testing for transplant patient?->No Interpretive Data The Emergent Views FilmArray Respiratory Panel (RP2.1) assay is a [...] assay has FDA clearance for testing of COKE CRANE OPERATOR swabs. The performance of additional specimen types has been assessed by the performing laboratory. The performance characteristics of this assay have been determined by [facility] Molecular Infectious Disease Laboratory. Current interpretive data was last revised on 22. Leela Sandhu COKE CRANE OPERATOR LAB MICROBIOLOGY - GENERA L ORDERABLES Final Result [facility] Department [place] [address] * (ABNORMAL) Protime-INR (10/30/2024 9:59 AM CDT) INR 1.4(H) [facility] Comment: Reference Range 0.9-1.1 Moderate-intensity Warfarin Therapy 2.0-3.0 Higher-intensity Warfarin Therapy 3.0-4.0 PT 14.8(H) 9.0 - 11.5 sec [email or web address] Comment: For additional information, please refer to http://education.Vopium/faq/KQQ884 (This link is being provided for informational/ educational purposes only.) Blood 10/30/2024 9:59 AM CDT 10/30/2024 9:59 AM CDT Narrative [facility] - 10/30/2024 3:19 PM CDT FASTING:NO FASTING: NO us Chris Hart MD LAB BLOOD ORDERABLES Final Result Performing Organization Address City/[facility] Co de Phone Number [email or web address] [address] [place] [address] * eGFR (10/28/2024 1:00 PM CDT) eGFR [...] was last reviewed 2021. Testing performed by: [facility], [address] [place] [address] Blood 10/28/2024 1:00 PM CDT 10/28/2024 1:36 PM CDT us Agustina Li MD PhD LAB BLOOD ORDERABLES Final Result Performing Organization Address City/[facility]/ZIP Co de Phone Number [facility] [address] Department [place] [address] * (ABNORMAL) Differential, auto (10/28/2024 1:00 PM CDT) Neutrophil abs 3.39 1.50 - 6.50 K/cumm Comment:Testing performed by : [facility], [facility], [address] [place] [address] Imm gran abs 0.02 0.00 - 0.10 K/cumm [facility] Comment:Testing performed by : [facility], [facility], [address] [place] [address] Lymphocyte abs 0.48(L) 0.80 - 3.30 K/cumm [facility] Comment:Testing performed by : [facility], [facility], [address] [place] [address] Monocyte abs 0.67 0.20 - 0.80 K/cumm [facility] Comment:Testing performed by : [facility], [facility], [address] [place] [address] Eosinophil abs 0.07 0.00 - 0.50 K/cumm [facility] Comment:Testing performed by : [facility], [facility], [address] [place] [address] Basophil abs 0.01 0.00 - 0.10 K/cumm [facility] Comment:Testing performed by : [facility], [address] [place] [address] Neutrophil pct 73.2 % [facility] Comment: Interpretive Data Percent cell count reference ranges are not reported, since discordance with absolute values may lead to misinterpretation of CBC data. Current Interpretive Data was last revised on 2017. Testing performed by: [facility], [address] [place] [address] Imm gran pct 0.4 % [facility] Comment: Interpretive Data Percent cell count reference ranges are not reported, since discordance with absolute values may lead to misinterpretation of CBC data. Current Interpretive Data was last revised on 2017. Testing performed by: [facility], [address] [place] [address] Lymphocyte pct 10.3 % [facility] Comment: Interpretive Data Percent cell count reference ranges are not reported, since discordance with absolute values may lead to misinterpretation of CBC data. Current Interpretive Data was last revised on 2017. Testing performed by: [facility], [facility], [address] [place] [address] Monocyte pct 14.4 % [facility] Comment: Interpretive Data Percent cell count reference ranges are not reported, since discordance with absolute values may lead to misinterpretation of CBC data. Current Interpretive Data was last revised on 2017. Testing performed by: [facility], [facility], [address] [place] [address] Eosinophil pct 1.5 % [facility] Comment: Interpretive Data Percent cell count reference ranges are not reported, since discordance with absolute values may lead to misinterpretation of CBC data. Current Interpretive Data was last revised on 2017. Testing performed by: [facility], [facility], [address] [place] [address] Basophil pct 0.2 % [facility] Comment: Interpretive Data Percent cell count reference ranges are not reported, since discordance with absolute values may lead to misinterpretation of CBC data. Current Interpretive Data was last revised on 2017. Testing performed by: [facility], [facility], [address] [place] [address] Blood 10/28/2024 1:00 PM CDT 10/28/2024 1:08 PM CDT us Agustina Li MD PhD LAB BLOOD ORDERABLES Final Result [facility] [address] [facility]. Department [place] [address] * (ABNORMAL) CBC with auto differential (10/28/2024 1:00 PM CDT) WBC 4.64 3.80 - 9.90 K/cumm Comment:Testing performed by : [place] [address], [address], [place] [address] Hgb 10.2(L) 13.0 - 17.5 g/dL [facility] Comment:Testing performed by : [place] [address], [address], [place] [address] Hct 32.1(L) 38.9 - 50.3 % [facility] Comment:Testing performed by : [place] [address], [address], [place] [address] Plt 186 150 - 400 K/cumm [facility] Comment:Testing performed by : [place] [address] [place] [address] MPV 10.0 9.1 - 12.3 fL [facility] Comment:Testing performed by : [place] [address], [place] [address] RBC 3.13(L) 4.30 - 5.80 M/cumm [facility] Comment:Testing performed by : [place] [address], [place] [address] MCV 102.6(H) 81.3 - 96.4 fL [facility] Comment:Testing performed by : [place] [address], [place] [address] MCH 32.6 27.1 - 33.3 pg [facility] Comment:Testing performed by : [place] [address], [address], [place] [address] MCHC 31.8(L) 32.3 - 35.7 g/dL [facility] Comment:Testing performed by : [place] [address], [address] [place] [address] RDW CV 18.2(H) 11.1 - 14.9 % [facility] Comment:Testing performed by : [place] [address], [place] [address] RDW SD 66.8(H) 35.7 - 48.1 fL [facility] Comment:Testing performed by : [facility], [facility], [address] [place] [address] ANC Prelim 3.39 1.50 - 6.50 K/cumm [facility] Comment: Interpretive Data The rapid ANC is a preliminary automated count and may vary from the final ANC (Neut Abs) reported in the WBC differential that follows. Current interpretive data was last revised 2024. Testing performed by: [facility], [facility], [address] [place] [address] Blood 10/28/2024 1:00 PM CDT 10/28/2024 1:08 PM CDT Agustina Li MD PhD LAB BLOOD ORDERABLES Final Result Performing Organization Address [facility] Co de Phone Number [facility] [address] [address] [employer] [place] [phone] * (ABNORMAL) Cancer antigen 19-9 (10/28/2024 1:00 PM CDT) Pathologist [facility] [place] CA 19-9 ag 590.0(H) 0.0 - 35.0 units/mL Comment: Interpretive Data The [employer] CA 19-9 assay procedure was used. Results from different manufacturers or methods may not be comparable. Serial testing should be performed using the same method. Testing performed by: [facility], [address] [place] [address], [place]., [address] Blood 10/28/2024 1:00 PM CDT 10/28/2024 2:33 PM CDT aKtie Reeder MD LAB BLOOD ORDERABLES Final Resul t Performing Organization Address [facility] Co de Phone Number [facility] [address] [address] [facility] [address] [place] [address] * (ABNORMAL) Protime-INR (10/28/2024 1:00 PM CDT) PT 15.3(H) 9.7 - 13.0 sec Comment:Testing performed by : [facility], [address] [place] [address] INR 1.41(H) 0.90 - 1.20 [facility] Comment: Interpretive data Oral anticoagulant therapeutic ranges: Venous thromboembolism prophylaxis or treatment: 2.0-3.0 CARDIOLOGY Standard range: 2.0-3.0 High-intensity range: 2.5-3.5 Refer to indication-specific guidelines for appropriate target ranges for prosthetic heart valve replacement. Current interpretive data was last revised on 2019. Testing performed by: [facility], [address] [place] [address] Blood 10/28/2024 1:00 PM CDT 10/28/2024 1:36 PM CDT Agustina Li MD PhD LAB BLOOD ORDERABLES Final Result [facility] [address] Department [place] [address] * (ABNORMAL) Comprehensive metabolic panel (10/28/2024 1:00 PM CDT) Sodium 136 135 - 145 mmol/L Comment:Testing performed by : [facility], [address] [place] [address] Potassium, pl 4.0 3.3 - 4.9 mmol/L [facility] Comment:Testing performed by : [facility], [address] [place] [address] Chloride 103 97 - 110 mmol/L [facility] Comment:Testing performed by : [facility], [address] [place] [address] CO2 22 22 - 32 mmol/L [facility] Comment:Testing performed by : [facility], [address] [place] [address] Anion gap 11 2 - 15 mmol/L [facility] Comment:Testing performed by : [facility], [address], [place] [address] BUN 38(H) 6 - 25 mg/dL [facility] Comment:Testing performed by : [facility], [address], [place] [address] Creatinine 0.80 0.80 - 1.30 mg/dL [facility] Comment:Testing performed by : [facility], [address], [place] [address] Glucose 126 70 - 199 mg/dL [facility] [...] was last revised 2022. Testing performed by: [facility], [address], [place] [address] Calcium 8.8 8.5 - 10.3 mg/dL [facility] Comment:Testing performed by : [facility], [address], [place] [address] Bilirubin, total 0.4 0.1 - 1.2 mg/dL [facility] Comment:Testing performed by : [facility], [address], [place] [address] Protein, pl 7.0 6.5 - 8.5 g/dL [facility] Comment:Testing performed by : [facility], [address], [place] [address] Albumin 3.9 3.5 - 5.0 g/dL [facility] Comment:Testing performed by : [facility], [address], [place] [address] Alk phos 408(H) 40 - 130 Units/L [facility] Comment:Testing performed by : [facility], [address], [place] [address] ALT 64(H) 7 - 55 Units/L [facility] Comment:Testing performed by : [facility], [address], [place] [address] AST 53(H) 10 - 50 Units/L [facility] Comment:Testing performed by : [facility], [address], [place] [address] Blood 10/28/2024 1:00 PM CDT 10/28/2024 1:36 PM CDT us Agustina Li MD PhD LAB BLOOD ORDERABLES Final Result Performing Organization Address [facility]/ZIP Co de Phone Number [facility] [address] Department [place] [address] * (ABNORMAL) Protime-INR (10/26/2024 8:11 AM CDT) INR 1.4(H) [facility] Comment: Reference Range 0.9-1.1 Moderate-intensity Warfarin Therapy 2.0-3.0 Higher-intensity Warfarin Therapy 3.0-4.0 PT 14.6(H) 9.0 - 11.5 sec [facility] Comment: For additional information, please refer to http://education.Vopium/faq/ZGI301 (This link is being provided for informational/ educational purposes only.) Blood 10/26/2024 8:11 AM CDT 10/26/2024 8:11 AM CDT us Chris Hart MD LAB BLOOD ORDERABLES Final Result Performing Organization Address City/[facility]/ZIP Co de Phone Number [facility] [address] [place] [address] * eGFR (10/23/2024 3:26 AM CDT) eGFR [...] MD LAB BLOOD ORDERABLES Final Resul t [facility] Department [place] [address] * (ABNORMAL) Differential, auto (10/23/2024 3:26 AM CDT) Pathologist [facility] [place] Neutrophil abs 4.28 1.50 - 6.50 K/cumm Imm gran abs 0.07 0.00 - 0.10 K/cumm [facility] Lymphocyte abs 0.60(L) 0.80 - 3.30 K/cumm [facility] Monocyte abs 0.79 0.20 - 0.80 K/cumm [facility] Eosinophil abs 0.06 0.00 - 0.50 K/cumm [facility] Basophil abs 0.02 0.00 - 0.10 K/cumm [facility] Neutrophil pct 73.6 % [facility] Comment: Interpretive Data Percent cell count reference ranges are not reported, since discordance with absolute values may lead to misinterpretation of CBC data. Current Interpretive Data was last revised on 2017. Imm gran pct 1.2 % [facility] Comment: Interpretive Data Percent cell count reference ranges are not reported, since discordance with absolute values may lead to misinterpretation of CBC data. Current Interpretive Data was last revised on 2017. Lymphocyte pct 10.3 % [facility] Comment: Interpretive Data Percent cell count reference ranges are not reported, since discordance with absolute values may lead to misinterpretation of CBC data. Current Interpretive Data was last revised on 2017. Monocyte pct 13.6 % [facility] Comment: Interpretive Data Percent cell count reference ranges are not reported, since discordance with absolute values may lead to misinterpretation of CBC data. Current Interpretive Data was last revised on 2017. Eosinophil pct 1.0 % [facility] Comment: Interpretive Data Percent cell count reference ranges are not reported, since discordance with absolute values may lead to misinterpretation of CBC data. Current Interpretive Data was last revised on 2017. Basophil pct 0.3 % [facility] Comment: Interpretive Data Percent cell count reference ranges are not reported, since discordance with absolute values may lead to misinterpretation of CBC data. Current Interpretive Data was last revised on 2017. Blood 10/23/2024 3:26 AM CDT 10/23/2024 3:49 AM CDT us Jennifer Jeff MD LAB BLOOD ORDERABLES Final Resul t [facility] Department [place] [address] * (ABNORMAL) CBC with auto differential (10/23/2024 3:26 AM CDT) WBC 5.82 3.80 - 9.90 K/cumm Hgb 9.3(L) 13.0 - 17.5 g/dL [facility] Hct 28.8(L) 38.9 - 50.3 % [facility] Plt 155 150 - 400 K/cumm [facility] MPV 10.4 9.1 - 12.3 fL [facility] RBC 2.89(L) 4.30 - 5.80 M/cumm [facility] MCV 99.7(H) 81.3 - 96.4 fL [facility] MCH 32.2 27.1 - 33.3 pg [facility] MCHC 32.3 32.3 - 35.7 g/dL [facility] RDW CV 18.7(H) 11.1 - 14.9 % [facility] RDW SD 65.2(H) 35.7 - 48.1 fL [facility] NRBC abs 0.00 0.00 - 0.01 K/cumm [facility] Blood 10/23/2024 3:26 AM CDT 10/23/2024 3:49 AM CDT Jennifer Jeff MD LAB BLOOD ORDERABLES Final Resul t Performing Organization Address City/[facility] Co de Phone Number [facility] Department [place] [address] * (ABNORMAL) Phosphorus (10/23/2024 3:26 AM CDT) [facility] Phosphorus, pl 2.1(L) 2.3 - 4.5 mg/dL Blood 10/23/2024 3:26 AM CDT 10/23/2024 3:49 AM CDT Jennifer Jeff MD LAB BLOOD ORDERABLES Final Resul t [facility] Department [place] [address] * (ABNORMAL) Comprehensive metabolic panel (10/23/2024 3:26 AM CDT) [facility] Sodium 139 135 - 145 mmol/L Potassium, pl 4.4 3.3 - 4.9 mmol/L [facility] Chloride 105 97 - 110 mmol/L [facility] CO2 27 22 - 32 mmol/L [facility] Anion gap 7 2 - 15 mmol/L [facility] BUN 27(H) 6 - 25 mg/dL [facility] Creatinine 0.98 0.80 - 1.30 mg/dL [facility] Glucose 151 70 - 199 mg/dL [facility] Comment: Interpretive Data Fasting glucose >/= 126 [...] 2022. Calcium 8.5 8.5 - 10.3 mg/dL [facility] Bilirubin, total 0.4 0.1 - 1.2 mg/dL [facility] Protein, pl 6.2(L) 6.5 - 8.5 g/dL [facility] Albumin 3.2(L) 3.5 - 5.0 g/dL [facility] Alk phos 417(H) 40 - 130 Units/L [facility] ALT 62(H) 7 - 55 Units/L [facility] AST 55(H) 10 - 50 Units/L [facility] Blood 10/23/2024 3:26 AM CDT 10/23/2024 3:49 AM CDT Jennifer Jeff MD LAB BLOOD ORDERABLES Final Resul t [facility] Department [place] [address] * TRANSESOPHAGEAL ECHO (MARK) W DOPPLER/CF WO CONTRAST (10/22/2024 2:40 PM CDT) Anatomical Region Laterality Modality Echocardiography 10/22/2024 2:0 1 PM CDT Narrative 10/23/2024 2:16 AM CDT [facility] [place] [address] Transesophageal Echocardiographic Report Patient Name: SULMA BAZAN A : 1950 (74y 3m) Gender: M Study Date: 10/22/2024 02:01:26 PM Ht(Inch): Wt(Lb): BSA: Document Improvement Specialist: Location: [id number] Order Provider: ELSIE FLORES BMI: Ref Provider: [...] Procedure Note Jeffry Bhatt MD - 10/23/2024 [facility] [place] [address] Transesophageal Echocardiographic Report Patient Name: SULMA BAZAN A : 1950 (74y 3m) Gender: M Study Date: 10/22/2024 02:01:26 PM Ht(Inch): Wt(Lb): BSA: Document Improvement Specialist: Location: [id number] Order Provider: ELSIE FLORES BMI: Ref Provider: [...] P2. Mean MV gradient 1 mmHg. MV [id number]. Aortic Valve: Trileaflet aortic valve. The aortic [...] leaflets, marked prolapse of P2, lesser extent [id number], partial flail medial P2. Moderate to severe [...] MD LAB BLOOD ORDERABLES Final Resul t [facility] Department [place] [address] * (ABNORMAL) Differential, auto (10/22/2024 1:43 AM CDT) Neutrophil abs 4.29 1.50 - 6.50 K/cumm Imm gran abs 0.08 0.00 - 0.10 K/cumm [facility] Lymphocyte abs 0.64(L) 0.80 - 3.30 K/cumm [facility] Monocyte abs 0.71 0.20 - 0.80 K/cumm [facility] Eosinophil abs 0.06 0.00 - 0.50 K/cumm [facility] Basophil abs 0.02 0.00 - 0.10 K/cumm [facility] Neutrophil pct 74.1 % [facility] Comment: Interpretive Data Percent cell count reference ranges are not reported, since discordance with absolute values may lead to misinterpretation of CBC data. Current Interpretive Data was last revised on 2017. Imm gran pct 1.4 % [facility] Comment: Interpretive Data Percent cell count reference ranges are not reported, since discordance with absolute values may lead to misinterpretation of CBC data. Current Interpretive Data was last revised on 2017. Lymphocyte pct 11.0 % [facility] Comment: Interpretive Data Percent cell count reference ranges are not reported, since discordance with absolute values may lead to misinterpretation of CBC data. Current Interpretive Data was last revised on 2017. Monocyte pct 12.2 % [facility] Comment: Interpretive Data Percent cell count reference ranges are not reported, since discordance with absolute values may lead to misinterpretation of CBC data. Current Interpretive Data was last revised on 2017. Eosinophil pct 1.0 % [facility] Comment: Interpretive Data Percent cell count reference ranges are not reported, since discordance with absolute values may lead to misinterpretation of CBC data. Current Interpretive Data was last revised on 2017. Basophil pct 0.3 % [facility] Comment: Interpretive Data Percent cell count reference ranges are not reported, since discordance with absolute values may lead to misinterpretation of CBC data. Current Interpretive Data was last revised on 2017. Blood 10/22/2024 1:43 AM CDT 10/22/2024 1:58 AM CDT Jennifer Jeff MD LAB BLOOD ORDERABLES Final Resul t Performing Organization Address [facility] Co de Phone Number [facility] [place] [address] * (ABNORMAL) CBC with auto differential (10/22/2024 1:43 AM CDT) [facility] WBC 5.80 3.80 - 9.90 K/cumm Hgb 9.8(L) 13.0 - 17.5 g/dL [facility] Hct 30.2(L) 38.9 - 50.3 % [facility] Plt 177 150 - 400 K/cumm [facility] MPV 10.4 9.1 - 12.3 fL [facility] RBC 3.06(L) 4.30 - 5.80 M/cumm [facility] MCV 98.7(H) 81.3 - 96.4 fL [facility] MCH 32.0 27.1 - 33.3 pg [facility] MCHC 32.5 32.3 - 35.7 g/dL [facility] RDW CV 18.7(H) 11.1 - 14.9 % [facility] RDW SD 66.1(H) 35.7 - 48.1 fL [facility] NRBC abs 0.02(H) 0.00 - 0.01 K/cumm [facility] Blood 10/22/2024 1:43 AM CDT 10/22/2024 1:58 AM CDT Jennifer Jeff MD LAB BLOOD ORDERABLES Final Resul t Performing Organization Address City/[facility]/ZIP Co de Phone Number [facility] [place] [address] * Type and screen (10/22/2024 1:43 AM CDT) Minna, indirect Negative ABO Rh A Positive [facility] Blood 10/22/2024 1:43 AM CDT 10/22/2024 1:57 AM CDT Narrative [facility] - 10/22/2024 2:55 AM CDT Has the patient had Daratumumab or Isatuximab in the past 6 months?->Unknown Jennifer Jeff MD LAB BLOOD BANK TEST ORDERABLES F inal Result Performing Organization Address [facility] Co de Phone Number [facility] [place] [address] * Uric acid (10/22/2024 1:43 AM CDT) [facility] Uric acid 4.3 3.0 - 8.0 mg/dL Blood 10/22/2024 1:43 AM CDT 10/22/2024 1:58 AM CDT Narrative [facility] - 10/22/2024 2:33 AM CDT Saturday and only. Morning draw. . Jennifer Jeff MD LAB BLOOD ORDERABLES Final Resul t Performing Organization Address [facility] Co de Phone Number [facility] [place] [address] * Phosphorus (10/22/2024 1:43 AM CDT) Pathologist [facility] [place] Phosphorus, pl 2.6 2.3 - 4.5 mg/dL Blood 10/22/2024 1:43 AM CDT 10/22/2024 1:58 AM CDT Jennifer Jeff MD LAB BLOOD ORDERABLES Final Resul t Performing Organization Address [facility]/ZIP Co de Phone Number [facility] [place] [address] * (ABNORMAL) Lactate dehydrogenase (LD) (10/22/2024 1:43 AM CDT) Pathologist [facility] [place] Lactate dehydrogenase (LDH) 335(H) 100 - 250 Units/L Blood 10/22/2024 1:43 AM CDT 10/22/2024 1:58 AM CDT Narrative [facility] - 10/22/2024 2:33 AM CDT Saturday and only. Morning draw. us Jennifer Jeff MD LAB BLOOD ORDERABLES Final Resul t [facility] Department [place] [address] * (ABNORMAL) Comprehensive metabolic panel (10/22/2024 1:43 AM CDT) [facility] Sodium 137 135 - 145 mmol/L Potassium, pl 4.3 3.3 - 4.9 mmol/L [facility] Chloride 100 97 - 110 mmol/L [facility] CO2 26 22 - 32 mmol/L [facility] Anion gap 11 2 - 15 mmol/L [facility] BUN 24 6 - 25 mg/dL [facility] Creatinine 0.89 0.80 - 1.30 mg/dL [facility] Glucose 112 70 - 199 mg/dL [facility] Comment: Interpretive Data Fasting glucose >/= 126 [...] 2022. Calcium 8.9 8.5 - 10.3 mg/dL [facility] Bilirubin, total 0.6 0.1 - 1.2 mg/dL [facility] Protein, pl 6.8 6.5 - 8.5 g/dL [facility] Albumin 3.2(L) 3.5 - 5.0 g/dL [facility] Alk phos 514(H) 40 - 130 Units/L [facility] ALT 89(H) 7 - 55 Units/L [facility] AST 112(H) 10 - 50 Units/L [facility] Blood 10/22/2024 1:43 AM CDT 10/22/2024 1:58 AM CDT us Jennifer Jeff MD LAB BLOOD ORDERABLES Final Resul t Performing Organization Address City/[facility]/ZIP Co de Phone Number [facility] Department [place] [address] * eGFR (10/21/2024 3:01 AM CDT) eGFR [...] ORDERABLES Final Resul t [facility] Department [place] [address] * (ABNORMAL) Differential, auto (10/21/2024 3:01 AM CDT) Neutrophil abs 4.86 1.50 - 6.50 K/cumm Imm gran abs 0.14(H) 0.00 - 0.10 K/cumm [facility] Lymphocyte abs 0.61(L) 0.80 - 3.30 K/cumm [facility] Monocyte abs 0.78 0.20 - 0.80 K/cumm [facility] Eosinophil abs 0.05 0.00 - 0.50 K/cumm [facility] Basophil abs 0.01 0.00 - 0.10 K/cumm [facility] Neutrophil pct 75.2 % [facility] Comment: Interpretive Data Percent cell count reference ranges are not reported, since discordance with absolute values may lead to misinterpretation of CBC data. Current Interpretive Data was last revised on 2017. Imm gran pct 2.2 % [facility] Comment: Interpretive Data Percent cell count reference ranges are not reported, since discordance with absolute values may lead to misinterpretation of CBC data. Current Interpretive Data was last revised on 2017. Lymphocyte pct 9.5 % [facility] Comment: Interpretive Data Percent cell count reference ranges are not reported, since discordance with absolute values may lead to misinterpretation of CBC data. Current Interpretive Data was last revised on 2017. Monocyte pct 12.1 % [facility] Comment: Interpretive Data Percent cell count reference ranges are not reported, since discordance with absolute values may lead to misinterpretation of CBC data. Current Interpretive Data was last revised on 2017. Eosinophil pct 0.8 % [facility] Comment: Interpretive Data Percent cell count reference ranges are not reported, since discordance with absolute values may lead to misinterpretation of CBC data. Current Interpretive Data was last revised on 2017. Basophil pct 0.2 % [facility] Comment: Interpretive Data Percent cell count reference ranges are not reported, since discordance with absolute values may lead to misinterpretation of CBC data. Current Interpretive Data was last revised on 2017. Blood 10/21/2024 3:01 AM CDT 10/21/2024 3:18 AM CDT Jennifer Jeff MD LAB BLOOD ORDERABLES Final Resul t Performing Organization Address [facility] de Phone Number [facility] Department [place] [address] * (ABNORMAL) CBC with auto differential (10/21/2024 3:01 AM CDT) Pathologist [facility] [place] WBC 6.45 3.80 - 9.90 K/cumm Hgb 9.3(L) 13.0 - 17.5 g/dL [facility] Hct 27.8(L) 38.9 - 50.3 % [facility] Plt 164 150 - 400 K/cumm [facility] MPV 10.0 9.1 - 12.3 fL [facility] RBC 2.82(L) 4.30 - 5.80 M/cumm [facility] MCV 98.6(H) 81.3 - 96.4 fL [facility] MCH 33.0 27.1 - 33.3 pg [facility] MCHC 33.5 32.3 - 35.7 g/dL [facility] RDW CV 18.2(H) 11.1 - 14.9 % [facility] RDW SD 63.2(H) 35.7 - 48.1 fL [facility] NRBC abs 0.02(H) 0.00 - 0.01 K/cumm [facility] Blood 10/21/2024 3:01 AM CDT 10/21/2024 3:18 AM CDT Jennifer Jeff MD LAB BLOOD ORDERABLES Final Resul t Performing Organization Address City/[facility] Co de Phone Number [facility] [place] [address] * (ABNORMAL) aPTT (10/21/2024 3:01 AM CDT) [...] Performing Organization Address [facility] de Phone Number [facility] [place] [address] * (ABNORMAL) Protime-INR (10/21/2024 3:01 AM CDT) Pathologist [facility] [place] PT 13.5(H) 9.7 - 13.0 sec INR 1.24(H) 0.90 - 1.20 [facility] Comment: Interpretive data Oral anticoagulant therapeutic [...] Performing Organization Address [facility] de Phone Number [facility] [place] [address] * (ABNORMAL) Phosphorus (10/21/2024 3:01 AM CDT) Pathologist [facility] [place] Phosphorus, pl 2.1(L) 2.3 - 4.5 mg/dL Blood 10/21/2024 3:01 AM CDT 10/21/2024 3:18 AM CDT us Jennifer Jeff MD LAB BLOOD ORDERABLES Final Resul t [facility] Department [place] [address] * (ABNORMAL) Comprehensive metabolic panel (10/21/2024 3:01 AM CDT) Sodium 138 135 - 145 mmol/L Potassium, pl 4.2 3.3 - 4.9 mmol/L [facility] Chloride 104 97 - 110 mmol/L [facility] CO2 27 22 - 32 mmol/L [facility] Anion gap 7 2 - 15 mmol/L [facility] BUN 26(H) 6 - 25 mg/dL [facility] Creatinine 0.88 0.80 - 1.30 mg/dL [facility] Glucose 126 70 - 199 mg/dL [facility] Comment: Interpretive Data Fasting glucose >/= 126 [...] 2022. Calcium 8.3(L) 8.5 - 10.3 mg/dL [facility] Bilirubin, total 0.4 0.1 - 1.2 mg/dL [facility] Protein, pl 6.4(L) 6.5 - 8.5 g/dL [facility] Albumin 3.0(L) 3.5 - 5.0 g/dL [facility] Alk phos 321(H) 40 - 130 Units/L [facility] ALT 65(H) 7 - 55 Units/L [facility] AST 58(H) 10 - 50 Units/L [facility] Blood 10/21/2024 3:01 AM CDT 10/21/2024 3:18 AM CDT us Jennifer Jeff MD LAB BLOOD ORDERABLES Final Resul t Performing Organization Address City/[facility] Co de Phone Number [facility] Department [place] [address] * ECG 12 lead (10/20/2024 1:34 PM CDT) Ventricular Rate EKG/Min 60 BPM [facility] Atrial Rate [address] [facility] DE-Interval (MSEC) [address] [facility] QRS-Interval (MSEC) [address] [facility] QT-Interval (MSEC) [address] [facility] QTc [address] [facility] P [place] [address] [facility] R [place] -[address] [facility] T [place] [address] [facility] Diagnosis Atrial-paced rhythm Minimal voltage criteria for LVH, may be normal variant ( R in aVL ) Abnormal ECG When compared with ECG of 07-SEP-2024 11:34, T wave inversion no longer evident in Anterolateral leads QT has shortened Confirmed by JOSEE AKINS M.D ([id number]) on 10/21/2024 9:32:[address] [facility] 10/20/2024 1:34 PM CDT 10/21/2024 9:32 AM CDT us Edgardo Castro MD ECG ORDERABLES Final Resul t Performing Organization Address [facility] Co de Phone Number [facility] [...] Castro MD LAB BLOOD ORDERABLES Final Result [facility] Department [place] [address] * eGFR (10/20/2024 3:02 AM CDT) eGFR [...] MD LAB BLOOD ORDERABLES Final Resul t [facility] Department [place] [address] * (ABNORMAL) Differential, auto (10/20/2024 3:02 AM CDT) Neutrophil abs 4.13 1.50 - 6.50 K/cumm Imm gran abs 0.23(H) 0.00 - 0.10 K/cumm [facility] Lymphocyte abs 0.75(L) 0.80 - 3.30 K/cumm [facility] Monocyte abs 0.65 0.20 - 0.80 K/cumm [facility] Eosinophil abs 0.06 0.00 - 0.50 K/cumm [facility] Basophil abs 0.01 0.00 - 0.10 K/cumm [facility] Neutrophil pct 70.9 % [facility] Comment: Interpretive Data Percent cell count reference ranges are not reported, since discordance with absolute values may lead to misinterpretation of CBC data. Current Interpretive Data was last revised on 2017. Imm gran pct 3.9 % [facility] Comment: Interpretive Data Percent cell count reference ranges are not reported, since discordance with absolute values may lead to misinterpretation of CBC data. Current Interpretive Data was last revised on 2017. Lymphocyte pct 12.9 % [facility] Comment: Interpretive Data Percent cell count reference ranges are not reported, since discordance with absolute values may lead to misinterpretation of CBC data. Current Interpretive Data was last revised on 2017. Monocyte pct 11.1 % [facility] Comment: Interpretive Data Percent cell count reference ranges are not reported, since discordance with absolute values may lead to misinterpretation of CBC data. Current Interpretive Data was last revised on 2017. Eosinophil pct 1.0 % [facility] Comment: Interpretive Data Percent cell count reference ranges are not reported, since discordance with absolute values may lead to misinterpretation of CBC data. Current Interpretive Data was last revised on 2017. Basophil pct 0.2 % [facility] Comment: Interpretive Data Percent cell count reference ranges are not reported, since discordance with absolute values may lead to misinterpretation of CBC data. Current Interpretive Data was last revised on 2017. Blood 10/20/2024 3:02 AM CDT 10/20/2024 4:36 AM CDT Jennifer Jeff MD LAB BLOOD ORDERABLES Final Resul t [facility] Department [place] [address] * (ABNORMAL) CBC with auto differential (10/20/2024 3:02 AM CDT) WBC 5.83 3.80 - 9.90 K/cumm Hgb 9.2(L) 13.0 - 17.5 g/dL [facility] Hct 27.9(L) 38.9 - 50.3 % [facility] Plt 167 150 - 400 K/cumm [facility] MPV 10.4 9.1 - 12.3 fL [facility] RBC 2.84(L) 4.30 - 5.80 M/cumm [facility] MCV 98.2(H) 81.3 - 96.4 fL [facility] MCH 32.4 27.1 - 33.3 pg [facility] MCHC 33.0 32.3 - 35.7 g/dL [facility] RDW CV 17.8(H) 11.1 - 14.9 % [facility] RDW SD 61.9(H) 35.7 - 48.1 fL [facility] NRBC abs 0.03(H) 0.00 - 0.01 K/cumm [facility] Blood 10/20/2024 3:02 AM CDT 10/20/2024 4:36 AM CDT Jennifer Jeff MD LAB BLOOD ORDERABLES Final Resul t [facility] Department [place] [address] * Phosphorus (10/20/2024 3:02 AM CDT) Pathologist [facility] [place] Phosphorus, pl 2.7 2.3 - 4.5 mg/dL Blood 10/20/2024 3:02 AM CDT 10/20/2024 4:36 AM CDT Jennifer Jeff MD LAB BLOOD ORDERABLES Final Resul t Performing Organization Address [facility] Co de Phone Number [facility] Department [place] [address] * (ABNORMAL) Comprehensive metabolic panel (10/20/2024 3:02 AM CDT) [facility] Sodium 138 135 - 145 mmol/L Potassium, pl 3.5 3.3 - 4.9 mmol/L [facility] Chloride 102 97 - 110 mmol/L [facility] CO2 27 22 - 32 mmol/L [facility] Anion gap 9 2 - 15 mmol/L [facility] BUN 26(H) 6 - 25 mg/dL [facility] Creatinine 0.91 0.80 - 1.30 mg/dL [facility] Glucose 115 70 - 199 mg/dL [facility] Comment: Interpretive Data Fasting glucose >/= 126 [...] 2022. Calcium 8.6 8.5 - 10.3 mg/dL [facility] Bilirubin, total 0.5 0.1 - 1.2 mg/dL [facility] Protein, pl 6.2(L) 6.5 - 8.5 g/dL [facility] Albumin 3.1(L) 3.5 - 5.0 g/dL [facility] Alk phos 289(H) 40 - 130 Units/L [facility] ALT 66(H) 7 - 55 Units/L [facility] AST 59(H) 10 - 50 Units/L [facility] Blood 10/20/2024 3:02 AM CDT 10/20/2024 4:36 AM CDT Jennifer Jeff MD LAB BLOOD ORDERABLES Final Resul t [facility] Department [place] [address] * eGFR (10/19/2024 12:56 AM CDT) eGFR [...] ORDERABLES Final Resul t [facility] Department [place] [address] * (ABNORMAL) Differential, auto (10/19/2024 12:56 AM [...] [facility] Neutrophil pct 69.4 % [facility] Comment: Interpretive Data Percent cell count reference ranges are not reported, since discordance with absolute values may lead to misinterpretation of CBC data. Current Interpretive Data was last revised on 2017. Imm gran pct 4.5 % [facility] Comment: Interpretive Data Percent cell count reference ranges are not reported, since discordance with absolute values may lead to misinterpretation of CBC data. Current Interpretive Data was last revised on 2017. Lymphocyte pct 11.4 % [facility] Comment: Interpretive Data Percent cell count reference ranges are not reported, since discordance with absolute values may lead to misinterpretation of CBC data. Current Interpretive Data was last revised on 2017. Monocyte pct 13.9 % [facility] Comment: Interpretive Data Percent cell count reference ranges are not reported, since discordance with absolute values may lead to misinterpretation of CBC data. Current Interpretive Data was last revised on 2017. Eosinophil pct 0.5 % [facility] Comment: Interpretive Data Percent cell count reference ranges are not reported, since discordance with absolute values may lead to misinterpretation of CBC data. Current Interpretive Data was last revised on 2017. Basophil pct 0.3 % [facility] Comment: Interpretive Data Percent cell count reference ranges are not reported, since discordance with absolute values may lead to misinterpretation of CBC data. Current Interpretive Data was last revised on 2017. Blood 10/19/2024 12:5 6 AM CDT 10/19/2024 1:21 AM CDT Jennifer Jeff MD LAB BLOOD ORDERABLES Final Resul t Performing Organization Address [facility] de Phone Number [facility] [place] [address] * (ABNORMAL) CBC with auto differential (10/19/2024 12:56 AM CDT) WBC 5.96 3.80 - 9.90 K/cumm Hgb 9.2(L) 13.0 - 17.5 g/dL [facility] Hct 27.4(L) 38.9 - 50.3 % [facility] Plt 161 150 - 400 K/cumm [facility] MPV 10.1 9.1 - 12.3 fL [facility] RBC 2.83(L) 4.30 - 5.80 M/cumm [facility] MCV 96.8(H) 81.3 - 96.4 fL [facility] MCH 32.5 27.1 - 33.3 pg [facility] MCHC 33.6 32.3 - 35.7 g/dL [facility] RDW CV 17.5(H) 11.1 - 14.9 % [facility] RDW SD 59.7(H) 35.7 - 48.1 fL [facility] NRBC abs 0.03(H) 0.00 - 0.01 K/cumm [facility] Blood 10/19/2024 12:5 6 AM CDT 10/19/2024 1:21 AM CDT Jennifer Jeff MD LAB BLOOD ORDERABLES Final Resul t Performing Organization Address [facility] Co de Phone Number [facility] [place] [address] * (ABNORMAL) aPTT (10/19/2024 12:56 AM CDT) [...] ORDERABLES Final Resul t Performing Organization Address City/[facility] Co de Phone Number [facility] [place] [address] * (ABNORMAL) Protime-INR (10/19/2024 12:56 AM CDT) PT 13.8(H) 9.7 - 13.0 sec INR 1.27(H) 0.90 - 1.20 [facility] Comment: Interpretive data Oral anticoagulant therapeutic ranges: Venous thromboembolism prophylaxis or treatment: 2.0-3.0 CARDIOLOGY Standard range: 2.0-3.0 High-intensity range: 2.5-3.5 Refer to indication-specific guidelines for appropriate target ranges for prosthetic heart valve replacement. Current interpretive data was last revised on 2019. Blood 10/19/2024 12:5 6 AM CDT 10/19/2024 1:44 AM CDT us Jennifer Jeff MD LAB BLOOD ORDERABLES Final Resul t [facility] [address] [place] [address] * Type and screen (10/19/2024 12:56 AM CDT) ABO Rh A Positive Minna, indirect Negative [facility] Blood 10/19/2024 12:5 6 AM CDT 10/19/2024 1:35 AM CDT Narrative [facility] - 10/19/2024 3:54 AM CDT Has the patient had Daratumumab or Isatuximab in the past 6 months?->Unknown Jennifer Jeff MD LAB BLOOD BANK TEST ORDERABLES F inal Result [facility] [place] [address] * (ABNORMAL) Uric acid (10/19/2024 12:56 AM CDT) Uric acid 2.8(L) 3.0 - 8.0 mg/dL Blood 10/19/2024 12:5 6 AM CDT 10/19/2024 1:24 AM CDT Narrative [facility] - 10/19/2024 2:03 AM CDT Saturday and only. Morning draw. . Jennifer Jeff MD LAB BLOOD ORDERABLES Final Resul t Performing Organization Address City/[facility]/ZIP Co de Phone Number [facility] [place] [address] * Phosphorus (10/19/2024 12:56 AM CDT) Pathologist [facility] [place] Phosphorus, pl 3.0 2.3 - 4.5 mg/dL Blood 10/19/2024 12:5 6 AM CDT 10/19/2024 1:24 AM CDT Jennifer Jeff MD LAB BLOOD [place] [address] * (ABNORMAL) Lactate dehydrogenase (LD) (10/19/2024 12:56 AM CDT) Lactate dehydrogenase (LDH) 251(H) 100 - 250 Units/L Blood 10/19/2024 12:5 6 AM CDT 10/19/2024 1:24 AM CDT Narrative [facility] - 10/19/2024 2:03 AM CDT Saturday and only. Morning draw. us Jennifer Jeff MD LAB BLOOD ORDERABLES Final Resul t [facility] Department [place] [address] * (ABNORMAL) Comprehensive metabolic panel (10/19/2024 12:56 AM CDT) Sodium 138 135 - 145 mmol/L Potassium, pl 3.6 3.3 - 4.9 mmol/L [facility] Chloride 102 97 - 110 mmol/L [facility] CO2 26 22 - 32 mmol/L [facility] Anion gap 10 2 - 15 mmol/L [facility] BUN 27(H) 6 - 25 mg/dL [facility] Creatinine 0.89 0.80 - 1.30 mg/dL [facility] Glucose 147 70 - 199 mg/dL [facility] Comment: Interpretive Data Fasting glucose >/= 126 [...] 2022. Calcium 8.5 8.5 - 10.3 mg/dL [facility] Bilirubin, total 0.6 0.1 - 1.2 mg/dL [facility] Protein, pl 6.3(L) 6.5 - 8.5 g/dL [facility] Albumin 3.1(L) 3.5 - 5.0 g/dL [facility] Alk phos 319(H) 40 - 130 Units/L [facility] ALT 69(H) 7 - 55 Units/L [facility] AST 87(H) 10 - 50 Units/L [facility] Blood 10/19/2024 12:5 6 AM CDT 10/19/2024 1:24 AM CDT us Jennifer Jeff MD LAB BLOOD ORDERABLES Final Resul t Performing Organization Address [facility] Co de Phone Number [facility] Department [place] [address] * eGFR (10/18/2024 1:19 AM CDT) eGFR [...] MD LAB BLOOD ORDERABLES Final Resul t [facility] [place] [address] * (ABNORMAL) Differential, auto (10/18/2024 1:19 AM CDT) Neutrophil abs 4.55 1.50 - 6.50 K/cumm Imm gran abs 0.31(H) 0.00 - 0.10 K/cumm [facility] Lymphocyte abs 0.79(L) 0.80 - 3.30 K/cumm [facility] Monocyte abs 0.94(H) 0.20 - 0.80 K/cumm [facility] Eosinophil abs 0.02 0.00 - 0.50 K/cumm [facility] Basophil abs 0.02 0.00 - 0.10 K/cumm [facility] Neutrophil pct 68.6 % [facility] Comment: Interpretive Data Percent cell count reference ranges are not reported, since discordance with absolute values may lead to misinterpretation of CBC data. Current Interpretive Data was last revised on 2017. Imm gran pct 4.7 % [facility] Comment: Interpretive Data Percent cell count reference ranges are not reported, since discordance with absolute values may lead to misinterpretation of CBC data. Current Interpretive Data was last revised on 2017. Lymphocyte pct 11.9 % [facility] Comment: Interpretive Data Percent cell count reference ranges are not reported, since discordance with absolute values may lead to misinterpretation of CBC data. Current Interpretive Data was last revised on 2017. Monocyte pct 14.2 % [facility] Comment: Interpretive Data Percent cell count reference ranges are not reported, since discordance with absolute values may lead to misinterpretation of CBC data. Current Interpretive Data was last revised on 2017. Eosinophil pct 0.3 % [facility] Comment: Interpretive Data Percent cell count reference ranges are not reported, since discordance with absolute values may lead to misinterpretation of CBC data. Current Interpretive Data was last revised on 2017. Basophil pct 0.3 % [facility] Comment: Interpretive Data Percent cell count reference ranges are not reported, since discordance with absolute values may lead to misinterpretation of CBC data. Current Interpretive Data was last revised on 2017. Blood 10/18/2024 1:19 AM CDT 10/18/2024 1:34 AM CDT Jennifer Jeff MD LAB BLOOD ORDERABLES Final Resul t Performing Organization Address City/[facility] Co de Phone Number [facility] Department [place] [address] * (ABNORMAL) CBC with auto differential (10/18/2024 1:19 AM CDT) WBC 6.63 3.80 - 9.90 K/cumm Hgb 9.6(L) 13.0 - 17.5 g/dL [facility] Hct 29.0(L) 38.9 - 50.3 % [facility] Plt 179 150 - 400 K/cumm [facility] MPV 10.3 9.1 - 12.3 fL [facility] RBC 2.99(L) 4.30 - 5.80 M/cumm [facility] MCV 97.0(H) 81.3 - 96.4 fL [facility] MCH 32.1 27.1 - 33.3 pg [facility] MCHC 33.1 32.3 - 35.7 g/dL [facility] RDW CV 17.2(H) 11.1 - 14.9 % [facility] RDW SD 59.3(H) 35.7 - 48.1 fL [facility] NRBC abs 0.02(H) 0.00 - 0.01 K/cumm [facility] Blood 10/18/2024 1:19 AM CDT 10/18/2024 1:34 AM CDT Jennifer Jeff MD LAB BLOOD ORDERABLES Final Resul t Performing Organization Address City/[facility]/ZIP Co de Phone Number [facility] [place] [address] * Phosphorus (10/18/2024 1:19 AM CDT) Phosphorus, pl 3.3 2.3 - 4.5 mg/dL Blood 10/18/2024 1:19 AM CDT 10/18/2024 1:34 AM CDT us Jennifer Jeff MD LAB BLOOD ORDERABLES Final Resul t [facility] Department [place] [address] * (ABNORMAL) Comprehensive metabolic panel (10/18/2024 1:19 AM CDT) Sodium 137 135 - 145 mmol/L Potassium, pl 3.8 3.3 - 4.9 mmol/L [facility] Chloride 100 97 - 110 mmol/L [facility] CO2 27 22 - 32 mmol/L [facility] Anion gap 10 2 - 15 mmol/L [facility] BUN 32(H) 6 - 25 mg/dL [facility] Creatinine 1.05 0.80 - 1.30 mg/dL [facility] Glucose 125 70 - 199 mg/dL [facility] Comment: Interpretive Data Fasting glucose >/= 126 [...] 2022. Calcium 8.8 8.5 - 10.3 mg/dL [facility] Bilirubin, total 0.5 0.1 - 1.2 mg/dL [facility] Protein, pl 6.7 6.5 - 8.5 g/dL [facility] Albumin 3.3(L) 3.5 - 5.0 g/dL [facility] Alk phos 336(H) 40 - 130 Units/L [facility] ALT 56(H) 7 - 55 Units/L [facility] AST 61(H) 10 - 50 Units/L [facility] Blood 10/18/2024 1:19 AM CDT 10/18/2024 1:34 AM CDT Jennifer Jeff MD LAB BLOOD ORDERABLES Final Resul t Performing Organization Address City/[facility]/ZIP Co de Phone Number [facility] Department [place] [address] * C. difficile testing Stool (10/17/2024 1:53 PM CDT) [facility] Result Negative Negative Toxin Result Negative Negative [facility] C. diff result Negative, free toxin Negative, free toxin [facility] C. diff interp Negative for toxigenic Clostridioides (Clostridium) difficile. Analysis was performed using a glutamate dehydrogenase antigen detection assay combined with a C. difficile toxin detection assay. [facility] Stool 10/17/2024 1:53 PM CDT 10/17/2024 3:21 PM CDT Trever Dempsey MD LAB MICROBIOLOGY - GENERAL ORD ERABLES Final Result Performing Organization Address [facility] Co de Phone Number [facility] [place] [address] * Infection Prevention VRE Culture Stool (10/17/2024 1:53 PM CDT) Report Final Report: Negative Stool 10/17/2024 1:53 PM CDT 10/17/2024 6:51 PM CDT Narrative [facility] - 10/19/2024 9:32 PM CDT Surveillance culture for Infection Prevention purposes only; results indicate colonization, not infection requiring treatment. Testing performed by [facility] ([phone]). Trever Dempsey MD LAB MICROBIOLOGY - GENERAL ORD ERABLES Final Result Performing Organization Address City/[facility] Co de Phone Number [facility] [place] [address] * eGFR (10/17/2024 12:44 AM CDT) Pathologist [facility] [place] eGFR >90 >=60 mL/min/1. 73 m2 Comment: [...] Castro MD LAB BLOOD ORDERABLES Final Result [facility] Department [place] [address] * (ABNORMAL) Differential, auto (10/17/2024 12:44 AM CDT) Pathologist [facility] [place] Neutrophil abs 7.00(H) 1.50 - 6.50 K/cumm Imm gran abs 0.13(H) 0.00 - 0.10 K/cumm [facility] Lymphocyte abs 0.70(L) 0.80 - 3.30 K/cumm [facility] Monocyte abs 0.81(H) 0.20 - 0.80 K/cumm [facility] Eosinophil abs 0.01 0.00 - 0.50 K/cumm [facility] Basophil abs 0.01 0.00 - 0.10 K/cumm [facility] Neutrophil pct 80.8 % [facility] Comment: Interpretive Data Percent cell count reference ranges are not reported, since discordance with absolute values may lead to misinterpretation of CBC data. Current Interpretive Data was last revised on 2017. Imm gran pct 1.5 % [facility] Comment: Interpretive Data Percent cell count reference ranges are not reported, since discordance with absolute values may lead to misinterpretation of CBC data. Current Interpretive Data was last revised on 2017. Lymphocyte pct 8.1 % [facility] Comment: Interpretive Data Percent cell count reference ranges are not reported, since discordance with absolute values may lead to misinterpretation of CBC data. Current Interpretive Data was last revised on 2017. Monocyte pct 9.4 % [facility] Comment: Interpretive Data Percent cell count reference ranges are not reported, since discordance with absolute values may lead to misinterpretation of CBC data. Current Interpretive Data was last revised on 2017. Eosinophil pct 0.1 % [facility] Comment: Interpretive Data Percent cell count reference ranges are not reported, since discordance with absolute values may lead to misinterpretation of CBC data. Current Interpretive Data was last revised on 2017. Basophil pct 0.1 % [facility] Comment: Interpretive Data Percent cell count reference ranges are not reported, since discordance with absolute values may lead to misinterpretation of CBC data. Current Interpretive Data was last revised on 2017. Blood 10/17/2024 12:4 4 AM CDT 10/17/2024 1:05 AM CDT us Edgardo Castro MD LAB BLOOD ORDERABLES Final Result [facility] Department [place] [address] * (ABNORMAL) CBC with auto differential (10/17/2024 12:44 AM CDT) WBC 8.66 3.80 - 9.90 K/cumm Hgb 9.9(L) 13.0 - 17.5 g/dL [facility] Hct 30.6(L) 38.9 - 50.3 % [facility] Plt 143(L) 150 - 400 K/cumm [facility] MPV 10.8 9.1 - 12.3 fL [facility] RBC 3.12(L) 4.30 - 5.80 M/cumm [facility] MCV 98.1(H) 81.3 - 96.4 fL [facility] MCH 31.7 27.1 - 33.3 pg [facility] MCHC 32.4 32.3 - 35.7 g/dL [facility] RDW CV 16.8(H) 11.1 - 14.9 % [facility] RDW SD 58.9(H) 35.7 - 48.1 fL [facility] NRBC abs 0.00 0.00 - 0.01 K/cumm [facility] Blood 10/17/2024 12:4 4 AM CDT 10/17/2024 1:05 AM CDT Jennifer Jeff MD LAB BLOOD ORDERABLES Final Resul t Performing Organization Address City/[facility] Co de Phone Number [facility] Department [place] [address] * Phosphorus (10/17/2024 12:44 AM CDT) [facility] Phosphorus, pl 2.8 2.3 - 4.5 mg/dL Blood 10/17/2024 12:4 4 AM CDT 10/17/2024 1:05 AM CDT Jennifer Jeff MD LAB BLOOD ORDERABLES Final Resul t [facility] Department [place] [address] * (ABNORMAL) Comprehensive metabolic panel (10/17/2024 12:44 AM CDT) [facility] Sodium 135 135 - 145 mmol/L Potassium, pl 4.2 3.3 - 4.9 mmol/L [facility] Comment:Hemolyzed; Potassium value may be falsely elevated by as much as 0.3-0.5 mmol/L. Suggest redraw and reanalysis. Chloride 102 97 - 110 mmol/L [facility] CO2 24 22 - 32 mmol/L [facility] Anion gap 9 2 - 15 mmol/L [facility] BUN 34(H) 6 - 25 mg/dL [facility] Creatinine 0.84 0.80 - 1.30 mg/dL [facility] Glucose 116 70 - 199 mg/dL [facility] Comment: Interpretive Data Fasting glucose >/= 126 [...] 2022. Calcium 8.6 8.5 - 10.3 mg/dL [facility] Bilirubin, total 0.5 0.1 - 1.2 mg/dL [facility] Protein, pl 6.7 6.5 - 8.5 g/dL [facility] Albumin 3.1(L) 3.5 - 5.0 g/dL [facility] Alk phos 266(H) 40 - 130 Units/L [facility] ALT 33 7 - 55 Units/L [facility] AST 52(H) 10 - 50 Units/L [facility] Comment:Hemolyzed; result ma y be falsely elevated Blood 10/17/2024 12:4 4 AM CDT 10/17/2024 1:05 AM CDT us Jennifer Jeff MD LAB BLOOD ORDERABLES Final Resul t [facility] Department [place] [address] * (ABNORMAL) Lactate (10/16/2024 5:27 AM CDT) Lactate 2.1(H) 0.7 - 2.0 mmol/L Blood 10/16/2024 5:27 AM CDT 10/16/2024 5:51 AM CDT Edgardo Castro MD LAB BLOOD ORDERABLES Final Result Performing Organization Address City/[facility]/ZIP Co de Phone Number [facility] Department [place] [address] * eGFR (10/16/2024 5:27 AM CDT) Pathologist [facility] [place] eGFR 89 >=60 mL/min/1. 73 m2 Comment: [...] MD LAB BLOOD ORDERABLES Final Result [facility] [place] [address] * (ABNORMAL) Differential, auto (10/16/2024 5:27 AM CDT) Neutrophil abs 7.16(H) 1.50 - 6.50 K/cumm Imm gran abs 0.07 0.00 - 0.10 K/cumm [facility] Lymphocyte abs 0.37(L) 0.80 - 3.30 K/cumm [facility] Monocyte abs 0.56 0.20 - 0.80 K/cumm [facility] Eosinophil abs 0.00 0.00 - 0.50 K/cumm [facility] Basophil abs 0.00 0.00 - 0.10 K/cumm [facility] Neutrophil pct 87.7 % [facility] Comment: Interpretive Data Percent cell count reference ranges are not reported, since discordance with absolute values may lead to misinterpretation of CBC data. Current Interpretive Data was last revised on 2017. Imm gran pct 0.9 % [facility] Comment: Interpretive Data Percent cell count reference ranges are not reported, since discordance with absolute values may lead to misinterpretation of CBC data. Current Interpretive Data was last revised on 2017. Lymphocyte pct 4.5 % [facility] Comment: Interpretive Data Percent cell count reference ranges are not reported, since discordance with absolute values may lead to misinterpretation of CBC data. Current Interpretive Data was last revised on 2017. Monocyte pct 6.9 % [facility] Comment: Interpretive Data Percent cell count reference ranges are not reported, since discordance with absolute values may lead to misinterpretation of CBC data. Current Interpretive Data was last revised on 2017. Eosinophil pct 0.0 % [facility] Comment: Interpretive Data Percent cell count reference ranges are not reported, since discordance with absolute values may lead to misinterpretation of CBC data. Current Interpretive Data was last revised on 2017. Basophil pct 0.0 % [facility] Comment: Interpretive Data Percent cell count reference ranges are not reported, since discordance with absolute values may lead to misinterpretation of CBC data. Current Interpretive Data was last revised on 2017. Blood 10/16/2024 5:27 AM CDT 10/16/2024 5:51 AM CDT Edgardo Castro MD LAB BLOOD ORDERABLES Final Result Performing Organization Address [facility] de Phone Number [facility] Department [place] [address] * (ABNORMAL) CBC with auto differential (10/16/2024 5:27 AM CDT) [facility] WBC 8.16 3.80 - 9.90 K/cumm Hgb 9.7(L) 13.0 - 17.5 g/dL [facility] Hct 29.4(L) 38.9 - 50.3 % [facility] Plt 171 150 - 400 K/cumm [facility] MPV 10.4 9.1 - 12.3 fL [facility] RBC 3.01(L) 4.30 - 5.80 M/cumm [facility] MCV 97.7(H) 81.3 - 96.4 fL [facility] MCH 32.2 27.1 - 33.3 pg [facility] MCHC 33.0 32.3 - 35.7 g/dL [facility] RDW CV 16.5(H) 11.1 - 14.9 % [facility] RDW SD 58.3(H) 35.7 - 48.1 fL [facility] NRBC abs 0.00 0.00 - 0.01 K/cumm [facility] Blood 10/16/2024 5:27 AM CDT 10/16/2024 5:51 AM CDT us Jennifer Jeff MD LAB BLOOD ORDERABLES Final Resul t Performing Organization Address [facility] Co de Phone Number [facility] Department [place] [address] * (ABNORMAL) aPTT (10/16/2024 5:27 AM CDT) [facility] aPTT 26(L) 28 - 38 sec Comment: Interpretive Data Heparin therapeutic range: 66.0 - 100.0 seconds. Range based on correlation with therapeutic heparin activity range of 0.3 - 0.7 Units/mL. Current interpretive data was last revised on 2023. Blood 10/16/2024 5:27 AM CDT 10/16/2024 5:46 AM CDT Jennifer Jeff MD LAB BLOOD ORDERABLES Final Resul t Performing Organization Address [facility] Co de Phone Number [facility] [place] [address] * (ABNORMAL) Protime-INR (10/16/2024 5:27 AM CDT) PT 13.8(H) 9.7 - 13.0 sec INR 1.27(H) 0.90 - 1.20 [facility] Comment: Interpretive data Oral anticoagulant therapeutic ranges: Venous thromboembolism prophylaxis or treatment: 2.0-3.0 CARDIOLOGY Standard range: 2.0-3.0 High-intensity range: 2.5-3.5 Refer to indication-specific guidelines for appropriate target ranges for prosthetic heart valve replacement. Current interpretive data was last revised on 2019. Blood 10/16/2024 5:27 AM CDT 10/16/2024 5:46 AM CDT Result [facility] Jennifer Jeff MD LAB BLOOD ORDERABLES Final Resul t Performing Organization Address [facility] de Phone Number [facility] [place] [address] * Type and screen (10/16/2024 5:27 AM CDT) ABO Rh A Positive Minna, indirect Negative [facility] Blood 10/16/2024 5:27 AM CDT 10/16/2024 5:38 AM CDT Narrative [facility] - 10/16/2024 6:46 AM CDT Has the patient had Daratumumab or Isatuximab in the past 6 months?->Unknown Jennifer Jeff MD LAB BLOOD BANK TEST ORDERABLES F inal Result Performing Organization Address [facility] de Phone Number [facility] [place] [address] * Uric acid (10/16/2024 5:27 AM CDT) Uric acid 4.0 3.0 - 8.0 mg/dL Blood 10/16/2024 5:27 AM CDT 10/16/2024 5:51 AM CDT Narrative [facility] - 10/16/2024 6:21 AM CDT Saturday and only. Morning draw. . Jennifer Jeff MD LAB BLOOD ORDERABLES Final Resul t Performing Organization Address [facility] de Phone Number [facility] [place] [address] * Phosphorus (10/16/2024 5:27 AM CDT) Phosphorus, pl 2.9 2.3 - 4.5 mg/dL Blood 10/16/2024 5:27 AM CDT 10/16/2024 5:51 AM CDT Jennifer Jeff MD LAB BLOOD ORDERABLES Final Resul t Performing Organization Address [facility] de Phone Number [facility] [place] [address] * Lactate dehydrogenase (LD) (10/16/2024 5:27 AM CDT) Lactate dehydrogenase (LDH) 233 100 - 250 Units/L Blood 10/16/2024 5:27 AM CDT 10/16/2024 5:51 AM CDT Narrative [facility] - 10/16/2024 6:21 AM CDT Saturday and only. Morning draw. Jennifer Jeff MD LAB BLOOD ORDERABLES Final Resul t Performing Organization Address [facility]/ZIP Co de Phone Number [facility] Department [place] [address] * (ABNORMAL) Comprehensive metabolic panel (10/16/2024 5:27 AM CDT) Sodium 135 135 - 145 mmol/L Potassium, pl 4.0 3.3 - 4.9 mmol/L [facility] Chloride 100 97 - 110 mmol/L [facility] CO2 26 22 - 32 mmol/L [facility] Anion gap 9 2 - 15 mmol/L [facility] BUN 35(H) 6 - 25 mg/dL [facility] Creatinine 0.90 0.80 - 1.30 mg/dL [facility] Glucose 190 70 - 199 mg/dL [facility] Comment: Interpretive Data Fasting glucose >/= 126 [...] 2022. Calcium 9.0 8.5 - 10.3 mg/dL [facility] Bilirubin, total 0.5 0.1 - 1.2 mg/dL [facility] Protein, pl 6.8 6.5 - 8.5 g/dL [facility] Albumin 3.2(L) 3.5 - 5.0 g/dL [facility] Alk phos 300(H) 40 - 130 Units/L [facility] ALT 38 7 - 55 Units/L [facility] AST 42 10 - 50 Units/L [facility] Blood 10/16/2024 5:27 AM CDT 10/16/2024 5:51 AM CDT Jennifer Jeff MD LAB BLOOD ORDERABLES Final Resul t [facility] Department [place] [address] * XR Chest Pa Lateral 2 Vw [...] ur Yellow Yellow Clarity, ur Clear Clear [facility] Specific gravity, ur 1.027 1.003 - 1.[address] [facility] pH, urine 6.0 [facility] Comment: Interpretive Data U rine pH is affected by diet, medications, systemic acid-base disturbances, and renal tubular function. pH may affect urinary stone formation. For example, urine pH below 6.0 may help reduce the tendency for calcium phosphate stones and pH greater than 6.0 may reduce the tendency for uric acid stone formation. Source: [facility] [place] Current Interpretive Data was last revised on 2017 Protein, ur ql Negative Negative [facility] Glucose, ur ql Negative Negative [facility] Ketones, ur Negative Negative [facility] Bilirubin, ur Negative Negative [facility] Blood, ur Negative Negative [facility] Urobilinogen, ur <2.0 <2.0 mg/dL [facility] Nitrite, ur Negative Negative [facility] Leukocyte esterase, ur Negative Negative [facility] UA reflex comment Reflex conditions for microscopic UA and culture not met. [facility] Urine 10/15/2024 7:01 PM CDT 10/15/2024 7:05 PM CDT Candi Rincon MD LAB MICROBIOLOGY - GENERAL ORDERABLES Final Result Performing Organization Address City/[facility] de Phone Number [facility] Department [place] [address] * (ABNORMAL) Sepsis Lactate w/ Reflex (10/15/2024 5:22 PM CDT) Sepsis Lactate 2.2(H) 0.7 - 2.0 mmol/L Blood 10/15/2024 5:22 PM CDT 10/15/2024 5:26 PM CDT Candi Rincon MD LAB BLOOD ORDERA BLES Final Result Performing Organization Address City/State/[facility] de Phone Number [facility] Department [place] [address] * eGFR (10/15/2024 5:22 PM CDT) Pathologist [facility] [place] eGFR 88 >=60 mL/min/1. 73 m2 Comment: [...] Performing Organization Address [facility] de Phone Number [facility] Department [place] [address] * (ABNORMAL) Differential, auto (10/15/2024 5:22 PM CDT) Pathologist [facility] [place] Neutrophil abs 6.81(H) 1.50 - 6.50 K/cumm Imm gran abs 0.07 0.00 - 0.10 K/cumm [facility] Lymphocyte abs 0.18(L) 0.80 - 3.30 K/cumm [facility] Monocyte abs 0.17(L) 0.20 - 0.80 K/cumm [facility] Eosinophil abs 0.00 0.00 - 0.50 K/cumm [facility] Basophil abs 0.01 0.00 - 0.10 K/cumm [facility] Neutrophil pct 94.1 % [facility] Comment: Interpretive Data Percent cell count reference ranges are not reported, since discordance with absolute values may lead to misinterpretation of CBC data. Current Interpretive Data was last revised on 2017. Imm gran pct 1.0 % [facility] Comment: Interpretive Data Percent cell count reference ranges are not reported, since discordance with absolute values may lead to misinterpretation of CBC data. Current Interpretive Data was last revised on 2017. Lymphocyte pct 2.5 % [facility] Comment: Interpretive Data Percent cell count reference ranges are not reported, since discordance with absolute values may lead to misinterpretation of CBC data. Current Interpretive Data was last revised on 2017. Monocyte pct 2.3 % [facility] Comment: Interpretive Data Percent cell count reference ranges are not reported, since discordance with absolute values may lead to misinterpretation of CBC data. Current Interpretive Data was last revised on 2017. Eosinophil pct 0.0 % [facility] Comment: Interpretive Data Percent cell count reference ranges are not reported, since discordance with absolute values may lead to misinterpretation of CBC data. Current Interpretive Data was last revised on 2017. Basophil pct 0.1 % [facility] Comment: Interpretive Data Percent cell count reference ranges are not reported, since discordance with absolute values may lead to misinterpretation of CBC data. Current Interpretive Data was last revised on 2017. Blood 10/15/2024 5:22 PM CDT 10/15/2024 5:43 PM CDT us Candi Rincon MD LAB BLOOD ORDERA BLES Final Result [facility] Department [place] [address] * (ABNORMAL) CBC with auto differential (10/15/2024 5:22 PM CDT) WBC 7.24 3.80 - 9.90 K/cumm Hgb 10.4(L) 13.0 - 17.5 g/dL [facility] Hct 31.7(L) 38.9 - 50.3 % [facility] Plt 193 150 - 400 K/cumm [facility] MPV 10.0 9.1 - 12.3 fL [facility] RBC 3.27(L) 4.30 - 5.80 M/cumm [facility] MCV 96.9(H) 81.3 - 96.4 fL [facility] MCH 31.8 27.1 - 33.3 pg [facility] MCHC 32.8 32.3 - 35.7 g/dL [facility] RDW CV 16.6(H) 11.1 - 14.9 % [facility] RDW SD 59.2(H) 35.7 - 48.1 fL [facility] NRBC abs 0.00 0.00 - 0.01 K/cumm [facility] Blood 10/15/2024 5:22 PM CDT 10/15/2024 5:43 PM CDT Candi Rincon MD LAB BLOOD ORDERA BLES Final Result [facility] Department [place] [address] * Blood culture Blood Peripheral (10/15/2024 5:22 PM CDT) Pathologist [facility] [place] Report Final Report: No growth Blood (Peripheral) 10/15/2024 5:22 PM CDT 10/15/2024 5:42 PM CDT Narrative [facility] - 10/20/2024 7:01 AM CDT From a [...] performance characteristics have been verified by the [facility] Microbiology Laboratory. For questions about this culture, contact the Microbiology Laboratory at [phone]. Interpretive data was last revised on 24. Candi Rincon MD LAB MICROBIOLOGY - GENERAL ORDERABLES Final Result [facility] Department [place] [address] * Blood culture Blood Peripheral (10/15/2024 5:22 PM CDT) Report Final Report: No growth Blood (Peripheral) 10/15/2024 5:22 PM CDT 10/15/2024 5:41 PM CDT [facility] - 10/20/2024 7:01 AM CDT Draw [...] performance characteristics have been verified by the [facility] Microbiology Laboratory. For questions about this culture, contact the Microbiology Laboratory at [phone]. Interpretive data was last revised on 24. Candi Rincon MD LAB MICROBIOLOGY - GENERAL ORDERABLES Final Result [facility] Department [place] [address] * (ABNORMAL) Comprehensive metabolic panel (10/15/2024 5:22 PM CDT) Sodium 134(L) 135 - 145 mmol/L Potassium, pl 4.2 3.3 - 4.9 mmol/L [facility] Chloride 98 97 - 110 mmol/L [facility] CO2 26 22 - 32 mmol/L [facility] Anion gap 10 2 - 15 mmol/L [facility] BUN 33(H) 6 - 25 mg/dL [facility] Creatinine 0.91 0.80 - 1.30 mg/dL [facility] Glucose 230(H) 70 - 199 mg/dL [facility] Comment: Interpretive Data Fasting glucose >/= 126 [...] 2022. Calcium 9.2 8.5 - 10.3 mg/dL [facility] Bilirubin, total 0.8 0.1 - 1.2 mg/dL [facility] Protein, pl 7.3 6.5 - 8.5 g/dL [facility] Albumin 3.5 3.5 - 5.0 g/dL [facility] Alk phos 361(H) 40 - 130 Units/L [facility] ALT 41 7 - 55 Units/L [facility] AST 55(H) 10 - 50 Units/L [facility] Blood 10/15/2024 5:22 PM CDT 10/15/2024 5:43 PM CDT us Candi Rincon MD LAB BLOOD ORDERA BLES Final Result [facility] Department [place] [address] * FL ERCP (10/15/2024 1:41 PM CDT) Narrative [facility] - 10/15/2024 1:43 PM CDT The images from this study are not interpreted by Radiology. Please refer to the physician's procedure / OR operative note. us Chris Holcomb MD IMG FLUOROSCOPY PROCEDURES Final Result Performing Organization Address City/[facility]/ZIP Co de Phone Number [email or web address] * ERCP (10/15/2024 12:47 PM CDT) Anatomical Region Laterality Modality Other Narrative Procedure Note Chris Holcomb MD - 10/15/2024 12:47 PM CDT ENDOSCOPY LAB Patient Name: Sulma Bazan Procedure Date: 10/15/2024 12:47 PM Admit Type: Outpatient Room: [facility] Date of : 1950 Instrument Name: [id number] [...] A biliary stent was visible on the technology consultant film. The esophagus was successfully intubated under [...] sec INR 1.18 0.90 - 1.20 [facility] Comment: Interpretive data Oral anticoagulant therapeutic ranges: Venous thromboembolism prophylaxis or treatment: 2.0-3.0 CARDIOLOGY Standard range: 2.0-3.0 High-intensity range: 2.5-3.5 Refer to indication-specific guidelines for appropriate target ranges for prosthetic heart valve replacement. Current interpretive data was last revised on 2019. Blood 10/15/2024 11:3 7 AM CDT 10/15/2024 11:37 AM CDT Chris Holcomb MD LAB BLOOD ORDERABLES Final Result [facility] [address] Department [place] [address] * CT Chest Abdomen Pelvis [...] was last reviewed 2021. Testing performed by: [facility], [address], [place] [address] Blood 10/07/2024 9:11 AM CDT 10/07/2024 9:57 AM CDT us Agustina Li MD PhD LAB BLOOD ORDERABLES Final Result [facility] [address] [place] [address] * (ABNORMAL) Differential, auto (10/07/2024 9:11 AM CDT) Neutrophil abs 6.76(H) 1.50 - 6.50 K/cumm Comment:Testing performed by : [facility], [address] [place] [address] Imm gran abs 0.06 0.00 - 0.10 K/cumm [facility] Comment:Testing performed by : [place] [address], [address] [place] [address] Lymphocyte abs 0.76(L) 0.80 - 3.30 K/cumm [facility] Comment:Testing performed by : [place] [address], [address] [place] [address] Monocyte abs 0.82(H) 0.20 - 0.80 K/cumm [facility] Comment:Testing performed by : [place] [address], [address] [place] [address] Eosinophil abs 0.04 0.00 - 0.50 K/cumm [facility] Comment:Testing performed by : [place] [address], [address] [place] [address] Basophil abs 0.04 0.00 - 0.10 K/cumm [facility] Comment:Testing performed by : [address] [place] [address] Neutrophil pct 79.6 % [facility] Comment: Interpretive Data Percent cell count reference ranges are not reported, since discordance with absolute values may lead to misinterpretation of CBC data. Current Interpretive Data was last revised on 2017. Testing performed by: [facility], [address] [place] [address] Imm gran pct 0.7 % [facility] Comment: Interpretive Data Percent cell count reference ranges are not reported, since discordance with absolute values may lead to misinterpretation of CBC data. Current Interpretive Data was last revised on 2017. Testing performed by: [facility], [facility], [address] [place] [address] Lymphocyte pct 9.0 % [facility] Comment: Interpretive Data Percent cell count reference ranges are not reported, since discordance with absolute values may lead to misinterpretation of CBC data. Current Interpretive Data was last revised on 2017. Testing performed by: [facility], [facility], [address] [place] [address] Monocyte pct 9.7 % [facility] Comment: Interpretive Data Percent cell count reference ranges are not reported, since discordance with absolute values may lead to misinterpretation of CBC data. Current Interpretive Data was last revised on 2017. Testing performed by: [facility], [facility], [address] [place] [address] Eosinophil pct 0.5 % [facility] Comment: Interpretive Data Percent cell count reference ranges are not reported, since discordance with absolute values may lead to misinterpretation of CBC data. Current Interpretive Data was last revised on 2017. Testing performed by: [facility], [facility], [address] [place] [address] Basophil pct 0.5 % [facility] Comment: Interpretive Data Percent cell count reference ranges are not reported, since discordance with absolute values may lead to misinterpretation of CBC data. Current Interpretive Data was last revised on 2017. Testing performed by: [facility], [facility], [address] [place] [address] Blood 10/07/2024 9:11 AM CDT 10/07/2024 9:13 AM CDT us Agustina Li MD PhD LAB BLOOD ORDERABLES Final Result [facility] [address] [facility]. [place] [address] * (ABNORMAL) CBC with auto differential (10/07/2024 9:11 AM CDT) WBC 8.48 3.80 - 9.90 K/cumm Comment:Testing performed by : [place] [address] [place] [address] Hgb 10.4(L) 13.0 - 17.5 g/dL [facility] Comment:Testing performed by : [place] [address] [place] [address] Hct 32.4(L) 38.9 - 50.3 % [facility] Comment:Testing performed by : [place] [address] [place] [address] Plt 212 150 - 400 K/cumm [facility] Comment:Testing performed by : [place] [address] [place] [address] MPV 9.5 9.1 - 12.3 fL [facility] Comment:Testing performed by : [place] [address] [place] [address] RBC 3.25(L) 4.30 - 5.80 M/cumm [facility] Comment:Testing performed by : [place] [address] [place] [address] MCV 99.7(H) 81.3 - 96.4 fL [facility] Comment:Testing performed by : [place] [address] [place] [address] MCH 32.0 27.1 - 33.3 pg [facility] Comment:Testing performed by : [place] [address] [place] [address] MCHC 32.1(L) 32.3 - 35.7 g/dL [facility] Comment:Testing performed by : [place] [address] [place] [address] RDW CV 16.2(H) 11.1 - 14.9 % [facility] Comment:Testing performed by : [facility], [facility], [address] [place] [address] RDW SD 59.5(H) 35.7 - 48.1 fL [facility] Comment:Testing performed by : [facility], [facility], [address] [place] [address] ANC Prelim 6.76(H) 1.50 - 6.50 K/cumm [facility] Comment: Interpretive Data The rapid ANC is a preliminary automated count and may vary from the final ANC (Neut Abs) reported in the WBC differential that follows. Current interpretive data was last revised 2024. Testing performed by: [facility], [facility], [address] [place] [address] Blood 10/07/2024 9:11 AM CDT 10/07/2024 9:13 AM CDT Agustina Li MD PhD LAB BLOOD ORDERABLES Final Result [facility] [address] [facility] Department [place] [address] * (ABNORMAL) Cancer antigen 19-9 (10/07/2024 9:11 AM CDT) CA 19-9 ag 227.0(H) 0.0 - 35.0 units/mL Comment: Interpretive Data The Dereck CA 19-9 assay procedure was used. Results from different manufacturers or methods may not be comparable. Serial testing should be performed using the same method. Testing performed by: [facility], [facility], [place]., [address] Blood 10/07/2024 9:11 AM CDT 10/07/2024 10:24 AM CDT Agustina Li MD PhD LAB BLOOD ORDERABLES Final Result [facility] [address] Department [place] [address] * (ABNORMAL) Protime-INR (10/07/2024 9:11 AM CDT) PT 16.4(H) 9.7 - 13.0 sec Comment:Testing performed by : [facility], [address] [place] [address] INR 1.51(H) 0.90 - 1.20 [facility] Comment: Interpretive data Oral anticoagulant therapeutic ranges: Venous thromboembolism prophylaxis or treatment: 2.0-3.0 CARDIOLOGY Standard range: 2.0-3.0 High-intensity range: 2.5-3.5 Refer to indication-specific guidelines for appropriate target ranges for prosthetic heart valve replacement. Current interpretive data was last revised on 2019. Testing performed by: [facility], [address] [facility] [place] [address] Blood 10/07/2024 9:11 AM CDT 10/07/2024 9:38 AM CDT Agustina Li MD PhD LAB BLOOD ORDERABLES Final Result [facility] [address] Department [place] [address] * (ABNORMAL) Comprehensive metabolic panel (10/07/2024 9:11 AM CDT) Pathologist [facility] [place] Sodium 131(L) 135 - 145 mmol/L Comment:Testing performed by : [facility], [address] [facility] [place] [address] Potassium, pl 4.1 3.3 - 4.9 mmol/L [facility] Comment:Testing performed by : [facility], [address] [facility] [place] [address] Chloride 96(L) 97 - 110 mmol/L [facility] Comment:Testing performed by : [facility], [address], [place] [address] CO2 22 22 - 32 mmol/L [facility] Comment:Testing performed by : [facility], [address], [place] [address] Anion gap 13 2 - 15 mmol/L [facility] Comment:Testing performed by : [facility], [address], [place] [address] BUN 33(H) 6 - 25 mg/dL [facility] Comment:Testing performed by : [facility], [address], [place] [address] Creatinine 0.90 0.80 - 1.30 mg/dL [facility] Comment:Testing performed by : [facility], [address], [place] [address] Glucose 171 70 - 199 mg/dL CERNER [...] was last revised 2022. Testing performed by: [facility], [address], [place] [address] Calcium 9.0 8.5 - 10.3 mg/dL [facility] Comment:Testing performed by : [facility], [address], [place] [address] Bilirubin, total 0.5 0.1 - 1.2 mg/dL [facility] Comment:Testing performed by : [facility], [address], [place] [address] Protein, pl 7.4 6.5 - 8.5 g/dL [facility] Comment:Testing performed by : [facility], [address], [place] [address] Albumin 3.9 3.5 - 5.0 g/dL [facility] Comment:Testing performed by : [facility], [address], [place] [address] Alk phos 423(H) 40 - 130 Units/L [facility] Comment:Testing performed by : [facility], [address], [place] [address] ALT 35 7 - 55 Units/L [facility] Comment:Testing performed by : [facility], [address], [place] [address] AST 37 10 - 50 Units/L [facility] Comment:Testing performed by : [facility], [address], [place] [address] Blood 10/07/2024 9:11 AM CDT 10/07/2024 9:38 AM CDT us Agustina Li MD PhD LAB BLOOD ORDERABLES Edited Result - Final [facility] [address] Department [place] [address] * (ABNORMAL) Protime-INR (09/30/2024 2:30 PM CDT) INR 1.3(H) [facility] Comment: Reference Range 0.9-1.1 Moderate-intensity Warfarin Therapy 2.0-3.0 Higher-intensity Warfarin Therapy 3.0-4.0 PT 13.7(H) 9.0 - 11.5 sec [facility] Comment: For additional information, please refer to http://education.[employer]/faq/FES247 (This link is being provided for informational/ educational purposes only.) Blood 09/30/2024 2:30 PM CDT 09/30/2024 2:32 PM CDT Narrative [facility] - 10/01/2024 12:17 AM CDT FASTING:NO FASTING: NO us Chris Hart MD LAB BLOOD ORDERABLES Final Result Performing Organization Address [facility] Co de Phone Number [facility] [place] [address] [place] [address] * (ABNORMAL) Protime-INR (09/23/2024 11:21 AM CDT) INR 1.3(H) [employer] Comment: Reference Range 0.9-1.1 Moderate-intensity Warfarin Therapy 2.0-3.0 Higher-intensity Warfarin Therapy 3.0-4.0 PT 14.0(H) 9.0 - 11.5 sec atHomestarsS t [place] Comment: For additional information, please refer to http://education.Vopium/faq/YQU307 (This link is being provided for informational/ educational purposes only.) Blood 09/23/2024 11:2 1 AM CDT 09/23/2024 11:21 AM CDT Chris Hart MD LAB BLOOD ORDERABLES Final Result Performing Organization Address [facility] Co de Phone Number [facility] [address] [place] [address] * eGFR (09/16/2024 8:08 AM CDT) eGFR [...] was last reviewed 2021. Testing performed by: [facility], [address] [place] [address] Blood 09/16/2024 8:08 AM CDT 09/16/2024 8:48 AM CDT us Gorge Vaughan MD PhD LAB BLOOD ORDERABLES Final Result [facility] [address] Department [place] [address] * (ABNORMAL) Differential, auto (09/16/2024 8:08 AM CDT) Neutrophil abs 5.67 1.50 - 6.50 K/cumm Comment:Testing performed by : [facility], [address] [place] [address] Imm gran abs 0.15(H) 0.00 - 0.10 K/cumm [facility] Comment:Testing performed by : [facility], [address] [place] [address] Lymphocyte abs 0.47(L) 0.80 - 3.30 K/cumm [facility] Comment:Testing performed by : [facility], [address] [place] [address] Monocyte abs 0.64 0.20 - 0.80 K/cumm [facility] Comment:Testing performed by : [facility], [address] [place] [address] Eosinophil abs 0.03 0.00 - 0.50 K/cumm [facility] Comment:Testing performed by : [facility], [address] [place] [address] Basophil abs 0.01 0.00 - 0.10 K/cumm [facility] Comment:Testing performed by : [facility], [address] [place] [address] Neutrophil pct 81.4 % [facility] Comment: Interpretive Data Percent cell count reference ranges are not reported, since discordance with absolute values may lead to misinterpretation of CBC data. Current Interpretive Data was last revised on 2017. Testing performed by: [facility], [facility], [address] [place] [address] Imm gran pct 2.2 % [facility] Comment: Interpretive Data Percent cell count reference ranges are not reported, since discordance with absolute values may lead to misinterpretation of CBC data. Current Interpretive Data was last revised on 2017. Testing performed by: [facility], [facility], [address] [place] [address] Lymphocyte pct 6.7 % [facility] Comment: Interpretive Data Percent cell count reference ranges are not reported, since discordance with absolute values may lead to misinterpretation of CBC data. Current Interpretive Data was last revised on 2017. Testing performed by: [facility], [facility], [address] [place] [address] Monocyte pct 9.2 % [facility] Comment: Interpretive Data Percent cell count reference ranges are not reported, since discordance with absolute values may lead to misinterpretation of CBC data. Current Interpretive Data was last revised on 2017. Testing performed by: [facility], [address] [place] [address] Eosinophil pct 0.4 % [facility] Comment: Interpretive Data Percent cell count reference ranges are not reported, since discordance with absolute values may lead to misinterpretation of CBC data. Current Interpretive Data was last revised on 2017. Testing performed by: [facility], [facility], [address] [place] [address] Basophil pct 0.1 % [facility] Comment: Interpretive Data Percent cell count reference ranges are not reported, since discordance with absolute values may lead to misinterpretation of CBC data. Current Interpretive Data was last revised on 2017. Testing performed by: [facility], [facility], [address] [place] [address] Blood 09/16/2024 8:08 AM CDT 09/16/2024 8:17 AM CDT us Gorge Vaughan MD PhD LAB BLOOD ORDERABLES Final Result [facility] [address] [facility] [place], [place] [id number] * (ABNORMAL) CBC with auto differential (09/16/2024 8:08 AM CDT) WBC 6.97 3.80 - 9.90 K/cumm Comment:Testing performed by : [place] [address] [place] [address] Hgb 8.4(L) 13.0 - 17.5 g/dL STAN COREYW Comment:Testing performed by : [place] [address] [place] [address] Hct 25.2(L) 38.9 - 50.3 % [facility] Comment:Testing performed by : [place] [address] [place] [address] Plt 102(L) 150 - 400 K/cumm STAN ALVAREZ Comment:Testing performed by : [place] [address] [place] [address] MPV 10.1 9.1 - 12.3 fL [facility] Comment:Testing performed by : [place] [address] [place] [address] RBC 2.39(L) 4.30 - 5.80 M/cumm STAN ALVAREZCH Comment:Testing performed by : [place] [address], [place] [address] MCV 105.4(H) 81.3 - 96.4 fL STAN COREYWCH Comment:Testing performed by : [place] [address], [address] [place] [address] MCH 35.1(H) 27.1 - 33.3 pg STAN STAPLETON Comment:Testing performed by : [facility], [facility], [address] [place] [address] MCHC 33.3 32.3 - 35.7 g/dL STAN STAPLETON Comment:Testing performed by : [facility], [address] [place] [address] RDW CV 17.0(H) 11.1 - 14.9 % STAN STAPLETON Comment:Testing performed by : [place] [address], [address] [place] [address] RDW SD 66.4(H) 35.7 - 48.1 fL STAN STAPLETON Comment:Testing performed by : [facility], [facility], [address] [place] [address] ANC Prelim 5.67 1.50 - 6.50 K/cumm STAN STAPLETON Comment: Interpretive Data The rapid ANC is a preliminary automated count and may vary from the final ANC (Neut Abs) reported in the WBC differential that follows. Current interpretive data was last revised 2024. Testing performed by: [facility], [facility], [address] [place] [address] Blood 09/16/2024 8:08 AM CDT 09/16/2024 8:17 AM CDT us Gorge Vaughan MD PhD LAB BLOOD ORDERABLES Final Result [facility] [address] [facility]. Department of [place] [id number] * (ABNORMAL) Cancer antigen 19-9 (09/16/2024 8:08 AM CDT) CA 19-9 ag 152.0(H) 0.0 - 35.0 units/mL Comment: Interpretive Data The Dereck CA 19-9 assay procedure was used. Results from different manufacturers or methods may not be comparable. Serial testing should be performed using the same method. Testing performed by: [facility], [facility] [place]., [address] Blood 09/16/2024 8:08 AM CDT 09/16/2024 1:03 PM CDT Gorge Vaughan MD PhD LAB BLOOD ORDERABLES Final Result Performing Organization Address [facility] Co de Phone Number STAN BJWCH [address] [facility]. [facility] [place] [address] * (ABNORMAL) Protime-INR (09/16/2024 8:08 AM CDT) PT 16.8(H) 9.7 - 13.0 sec Comment:Testing performed by : [facility], [address] [place] [address], [place] [address] INR 1.54(H) 0.90 - 1.20 STAN BJWCH Comment: Interpretive data Oral anticoagulant therapeutic ranges: Venous thromboembolism prophylaxis or treatment: 2.0-3.0 CARDIOLOGY Standard range: 2.0-3.0 High-intensity range: 2.5-3.5 Refer to indication-specific guidelines for appropriate target ranges for prosthetic heart valve replacement. Current interpretive data was last revised on 2019. Testing performed by: [facility], [id number] [place] [address] Blood 09/16/2024 8:08 AM CDT 09/16/2024 8:48 AM CDT us Chris Hart MD LAB BLOOD ORDERABLES Final Result Performing Organization Address [facility] Co de Phone Number CERNER BJWCH [address] [facility]. [facility] [place] [address] * (ABNORMAL) Comprehensive metabolic panel (09/16/2024 8:08 AM CDT) Sodium 134(L) 135 - 145 mmol/L Comment:Testing performed by : [facility], [address], [place] [address] Potassium, pl 3.5 3.3 - 4.9 mmol/L CERNER BJWCH Comment:Testing performed by : [facility], [address], [place] [address] Chloride 100 97 - 110 mmol/L CERNER BJWCH Comment:Testing performed by : [facility], [address], [place] [address] CO2 23 22 - 32 mmol/L CERNER BJWCH Comment:Testing performed by : [facility], [address], [place] [address] Anion gap 11 2 - 15 mmol/L CERNER BJWCH Comment:Testing performed by : [facility], [address], [place] [address] BUN 22 6 - 25 mg/dL CERNER BJWCH Comment:Testing performed by : [facility], [address], [place] [address] Creatinine 0.70(L) 0.80 - 1.30 mg/dL CERNER BJWCH Comment:Testing performed by : [facility], [address], [place] [address] Glucose 127 70 - 199 mg/dL CERNER [...] was last revised 2022. Testing performed by: [facility], [address], [place] [address] Calcium 8.3(L) 8.5 - 10.3 mg/dL CERNER BJWCH Comment:Testing performed by : [facility], [address], [place] [address] Bilirubin, total 0.6 0.1 - 1.2 mg/dL CERNER BJWCH Comment:Testing performed by : [facility], [address], [place] [address] Protein, pl 5.8(L) 6.5 - 8.5 g/dL CERNER BJWCH Comment:Testing performed by : [facility], [address], [place] [address] Albumin 2.9(L) 3.5 - 5.0 g/dL CERNER BJWCH Comment:Testing performed by : [facility], [address], [place] [address] Alk phos 388(H) 40 - 130 Units/L CERNER BJWCH Comment:Testing performed by : [facility], [address], [place] [address] ALT 36 7 - 55 Units/L CERNER BJWCH Comment:Testing performed by : [facility], [address], [place] [address] AST 46 10 - 50 Units/L CERNER BJWCH Comment:Testing performed by : [facility], [address], [place] [address] Blood 09/16/2024 8:08 AM CDT 09/16/2024 8:48 AM CDT us Gorge Vaughan MD PhD LAB BLOOD ORDERABLES Final Result [facility] [address] Department [place] [address] * COPY(IES) SENT TO: (09/11/2024 10:40 AM CDT) COPY(IES) SENT TO: [facility] Comment: SITEMAN - COPY TO ACCOUNT [address] [place] [address] 09/11/2024 10:4 0 AM CDT 09/11/2024 10:40 AM CDT Narrative [facility] - 09/15/2024 3:41 PM CDT FASTING:NO FASTING: NO Agustina Li MD PhD LAB BLOOD ORDERABLES Final Result [facility] * (ABNORMAL) CBC with auto differential (09/11/2024 10:40 AM CDT) Pathologist [facility] [place] WBC 6.7 3.8 - 10.8 Thousand/ uL [...] SMEAR WAS REVIEWED BY: MIGUEL BURNETT M.D. [employer] [address] [place] [id number] CLIA ID NO. [id number] Blood 09/11/2024 10:4 0 AM CDT 09/11/2024 10:40 AM CDT Narrative [facility] - 09/15/2024 3:41 PM CDT FASTING:NO FASTING: NO Agustina Li MD PhD LAB BLOOD ORDERABLES Final Result [facility] [address] [place] [address] * (ABNORMAL) Protime-INR (09/11/2024 10:40 AM CDT) INR 1.6(H) [facility] PerezKun[place] nevarez [place] Comment: Reference Range 0.9-1.1 Moderate-intensity Warfarin Therapy 2.0-3.0 Higher-intensity Warfarin Therapy 3.0-4.0 PT 17.0(H) 9.0 - 11.5 sec [facility] [place] Comment: For additional information, please refer to http://education.Vopium/faq/XAV194 (This link is being provided for informational/ educational purposes only.) Blood 09/11/2024 10:4 0 AM CDT 09/11/2024 10:40 AM CDT Narrative [facility] - 09/15/2024 3:41 PM CDT FASTING:NO FASTING: NO us Agustina Li MD PhD LAB BLOOD ORDERABLES Final Result [facility] [address] [place] [address] * (ABNORMAL) Comprehensive metabolic panel (09/11/2024 10:40 AM CDT) Glucose 105 65 - 139 mg/dL [facility] Comment: Non-fasting reference interval BUN 22 7 - 25 mg/dL [facility] [place] Creatinine 0.69(L) 0.70 - 1.28 mg/dL [facility] eGFR 97 > OR = 60 mL/min/1.7 3m2 [facility] BUN/creat ratio 32(H) 6 - 22 (calc) [facility] [place] Sodium 132(L) 135 - 146 mmol/L [facility] Potassium, pl 3.9 3.5 - 5.3 mmol/L [facility] [place] Chloride 99 98 - 110 mmol/L [...] ratio 1.1 1.0 - 2.5 (calc) [facility] Bilirubin, total 0.8 0.2 - 1.2 mg/dL [facility] Alk phos 204(H) 35 - 144 U/L [facility] [place] AST 40(H) 10 - 35 U/L [facility] [place] ALT (SGPT) 25 9 - 46 U/L [facility] Blood 09/11/2024 10:4 0 AM CDT 09/11/2024 10:40 AM CDT Narrative [facility] - 09/15/2024 3:41 PM CDT FASTING:NO FASTING: NO us Agustina Li MD PhD LAB BLOOD ORDERABLES Final Result [facility] [address] [place] [address] * SCAN - LABS (09/11/2024) us Provider [...] was last reviewed 2021. Testing performed by: [facility], [address] [place] [address] Blood 09/09/2024 7:32 AM CDT 09/09/2024 8:19 AM CDT us Gorge Vaughan MD PhD LAB BLOOD ORDERABLES Final Result [facility] [address] Department [place] [address] * (ABNORMAL) Differential, auto (09/09/2024 7:32 AM CDT) Neutrophil abs 4.58 1.50 - 6.50 K/cumm Comment:Testing performed by : [place] [address], [address] [place] [address] Imm gran abs 0.05 0.00 - 0.10 K/cumm C[facility]ER BJWCH Comment:Testing performed by : [place] [address], [place] [address] Lymphocyte abs 0.25(L) 0.80 - 3.30 K/cumm [facility] B[facility]WCH Comment:Testing performed by : [place] [address], [address] [place] [address] Monocyte abs 0.51 0.20 - 0.80 K/cumm [facility] B[facility]WCH Comment:Testing performed by : [place] [address], [address] [place] [address] Eosinophil abs 0.00 0.00 - 0.50 K/cumm C[facility] B[facility]WCH Comment:Testing performed by : [place] [address], [address] [place] [address] Basophil abs 0.00 0.00 - 0.10 K/cumm C[facility] B[facility]WCH Comment:Testing performed by : [place] [address], [address] [place] [address] Neutrophil pct 85.0 % [facility] B[facility]WCH Comment: Interpretive Data Percent cell count reference ranges are not reported, since discordance with absolute values may lead to misinterpretation of CBC data. Current Interpretive Data was last revised on 2017. Testing performed by: [facility], [address] [place] [address] Imm gran pct 0.9 % C[facility]ER BJWCH Comment: Interpretive Data Percent cell count reference ranges are not reported, since discordance with absolute values may lead to misinterpretation of CBC data. Current Interpretive Data was last revised on 2017. Testing performed by: [facility], [facility], [address] [place] [address] Lymphocyte pct 4.6 % STAN STAPLETON Comment: Interpretive Data Percent cell count reference ranges are not reported, since discordance with absolute values may lead to misinterpretation of CBC data. Current Interpretive Data was last revised on 2017. Testing performed by: [facility], [facility] 2, [address] [place] [address] Monocyte pct 9.5 % CERKERI STAPLETON Comment: Interpretive Data Percent cell count reference ranges are not reported, since discordance with absolute values may lead to misinterpretation of CBC data. Current Interpretive Data was last revised on 2017. Testing performed by: [facility], [address] [place] [address] Eosinophil pct 0.0 % CERKERI STAPLETON Comment: Interpretive Data Percent cell count reference ranges are not reported, since discordance with absolute values may lead to misinterpretation of CBC data. Current Interpretive Data was last revised on 2017. Testing performed by: [facility], [facility] 2, [address] [place] [address] Basophil pct 0.0 % STAN STAPLETON Comment: Interpretive Data Percent cell count reference ranges are not reported, since discordance with absolute values may lead to misinterpretation of CBC data. Current Interpretive Data was last revised on 2017. Testing performed by: [facility], [facility] 2, [address] [place] [address] Blood 09/09/2024 7:32 AM CDT 09/09/2024 7:50 AM CDT us Gorge Vaughan MD PhD LAB BLOOD ORDERABLES Final Result [facility] COREYCH [address] [facility]. [facility] [place] [address] * (ABNORMAL) CBC with auto differential (09/09/2024 7:32 AM CDT) [facility] Signature WBC 5.39 3.80 - 9.90 K/cumm Comment:Testing performed by : [place] [address], [address], [place] [address] Hgb 8.2(L) 13.0 - 17.5 g/dL CERNER BJWCH Comment:Testing performed by : [place] [address], [place] [address] Hct 24.8(L) 38.9 - 50.3 % CERNER BJWCH Comment:Testing performed by : [place] [address] [place] [address] Plt 62(L) 150 - 400 K/cumm CERNER BJWCH Comment:Testing performed by : [place] [address], [place] [address] MPV 10.4 9.1 - 12.3 fL CERNER BJWCH Comment:Testing performed by : [place] [address] [place] [address] RBC 2.30(L) 4.30 - 5.80 M/cumm C[facility]ER BJWCH Comment:Testing performed by : [place] [address] [place] [address] MCV 107.8(H) 81.3 - 96.4 fL CERNER BJWCH Comment:Testing performed by : [place] [address], [place] [address] MCH 35.7(H) 27.1 - 33.3 pg CERNER BJWCH Comment:Testing performed by : [place] [address], [address] [place] [address] MCHC 33.1 32.3 - 35.7 g/dL C[facility]ER BJWCH Comment:Testing performed by : [place] [address], [address] [place] [address] RDW CV 17.3(H) 11.1 - 14.9 % STAN STAPLETON Comment:Testing performed by : [facility], [facility] 2, [address] [place] [address] RDW SD 70.0(H) 35.7 - 48.1 fL STAN STAPLETON Comment:Testing performed by : [facility], [facility], [address] [place] [address] ANC Prelim 4.58 1.50 - 6.50 K/cumm STAN STAPLETON Comment: Interpretive Data The rapid ANC is a preliminary automated count and may vary from the final ANC (Neut Abs) reported in the WBC differential that follows. Current interpretive data was last revised 2024. Testing performed by: [facility], [facility], [address] [place] [address] Morphologic Screen Results confirmed by manual morphology review. STAN STAPLETON Comment:Testing performed by : [facility], [facility], [address] [place] [address] Blood 09/09/2024 7:32 AM CDT 09/09/2024 7:50 AM CDT Gorge Vaughan MD PhD LAB BLOOD ORDERABLES Edited Result - Final [facility] [address] [facility] Department of [place], [place] [id number] * (ABNORMAL) Cancer antigen 19-9 (09/09/2024 7:32 AM CDT) CA 19-9 ag 95.4(H) 0.0 - 35.0 units/mL Comment: Interpretive Data The Dereck CA 19-9 assay procedure was used. Results from different manufacturers or methods may not be comparable. Serial testing should be performed using the same method. Testing performed by: [facility], [facility]5 [facility], [place]., [address] Blood 09/09/2024 7:32 AM CDT 09/09/2024 10:24 AM CDT us Gorge Vaughan MD PhD LAB BLOOD ORDERABLES Final Result Performing Organization Address [facility] Co de Phone Number STAN BJW[facility] [address] [facility]. Department [place] [address] * (ABNORMAL) Protime-INR (09/09/2024 7:32 AM CDT) PT 22.0(H) 9.7 - 13.0 sec Comment:Testing performed by : [facility], [address] [facility] [place] [address] INR 2.01(H) 0.90 - 1.20 STAN STAPLETON Comment: Interpretive data Oral anticoagulant therapeutic ranges: Venous thromboembolism prophylaxis or treatment: 2.0-3.0 CARDIOLOGY Standard range: 2.0-3.0 High-intensity range: 2.5-3.5 Refer to indication-specific guidelines for appropriate target ranges for prosthetic heart valve replacement. Current interpretive data was last revised on 2019. Testing performed by: [facility], [address] [facility], [place] [address] Blood 09/09/2024 7:32 AM CDT 09/09/2024 8:19 AM CDT us Chris Hart MD LAB BLOOD ORDERABLES Final Result Performing Organization Address [facility] de Phone Number CERNER BJWCH [address] [facility]. Department [place] [address] * (ABNORMAL) Comprehensive metabolic panel (09/09/2024 7:32 AM CDT) Sodium 132(L) 135 - 145 mmol/L Comment:Testing performed by : [facility], [address] [facility], [place] [address] Potassium, pl 3.6 3.3 - 4.9 mmol/L STAN STAPLETON Comment:Testing performed by : [facility], [address], [place] [address] Chloride 96(L) 97 - 110 mmol/L CERNER BJWCH Comment:Testing performed by : [facility], [address], [place] [address] CO2 27 22 - 32 mmol/L CERNER BJWCH Comment:Testing performed by : [facility], [address], [place] [address] Anion gap 9 2 - 15 mmol/L CERNER BJWCH Comment:Testing performed by : [facility], [address], [place] [address] BUN 17 6 - 25 mg/dL CERNER BJWCH Comment:Testing performed by : [facility], [address], [place] [address] Creatinine 0.80 0.80 - 1.30 mg/dL C[facility]ER BJWCH Comment:Testing performed by : [facility], [address], [place] [address] Glucose 117 70 - 199 mg/dL CERNER [...] was last revised 2022. Testing performed by: [facility], [address], [place] [address] Calcium 7.7(L) 8.5 - 10.3 mg/dL CERNER BJWCH Comment:Testing performed by : [facility], [address], [place] [address] Bilirubin, total 0.7 0.1 - 1.2 mg/dL C[facility]ER B[facility]WCH Comment:Testing performed by : [facility], [address], [place] [address] Protein, pl 5.1(L) 6.5 - 8.5 g/dL CERNER BJWCH Comment:Testing performed by : [facility], [address], [place] [address] Albumin 2.6(L) 3.5 - 5.0 g/dL CERNER BJWCH Comment:Testing performed by : [facility], [address], [place] [address] Alk phos 227(H) 40 - 130 Units/L CERNER BJWCH Comment:Testing performed by : [facility], [address], [place] [address] ALT 28 7 - 55 Units/L CERNER BJWCH Comment:Testing performed by : [facility], [address], [place] [address] AST 50 10 - 50 Units/L C[facility]ER BJWCH Comment:Testing performed by : [facility], [address], [place] [address] Blood 09/09/2024 7:32 AM CDT 09/09/2024 8:19 AM CDT us Gorge Vaugahn MD PhD LAB BLOOD ORDERABLES Edited Result - Final C[facility]ER [facility] [address] Department [place] [address] * ECG 12 lead (09/07/2024 11:34 AM CDT) Ventricular Rate EKG/Min 65 BPM [facility] Atrial Rate 65 BPM [facility] DE-Interval (MSEC) 206 ms [facility] QRS-Interval (MSEC) 96 ms [facility] QT-Interval (MSEC) 506 ms [facility] QTc 526 ms [facility] P [place] 18 degrees [facility] R [place] -27 degrees [facility] T [place] 241 degrees [facility] Diagnosis Atrial-paced rhythm Minimal voltage criteria for LVH, may be normal variant ( R in aVL ) T wave abnormality, consider inferior ischemia T wave abnormality, consider anterolateral ischemia Prolonged QT Abnormal ECG Confirmed by Georges Smith MD ([id number]) on 09/08/2024 4:32:43 PM [facility] 09/07/2024 11:3 4 AM CDT 09/08/2024 4:32 PM CDT Sharron mAador MD ECG ORDERABLES Final Result [facility] * XR Chest 1 View [...] or abandoned leads. Electronically signed by: Ulisses Sifeuntes M.D. Narrative 09/07/2024 8:47 AM CDT EXAMINATION: [...] CDT) Date Notified [id number] Time Notified 601 [facility] TestName pO2 Art and O2 Sat Art (Noni) [facility] Called/Read Back Sravani [facility] Credentials RN [facility] Called By KRISTIN [facility] Blood 09/07/2024 5:39 AM CDT 09/07/2024 5:49 AM CDT Perla Roldan MD LAB BLOOD ORDERABLES F inal Result [facility] [place] [address] * (ABNORMAL) Blood gas, arterial (09/07/2024 5:39 AM CDT) Pathologist [facility] [place] pH, Art 7.45 7.35 - 7.45 PCO2, Arterial 43 35 - 45 mmHg [facility] PO2, Arterial 36(C) 83 - 108 mmHg [facility] Comment:Repeated and verifie d. HCO3 Art (Calculated) 31(H) 20 - 30 mmol/L [facility] BE, art 6 mmol/L [facility] Comment: Interpretive Data No Reference Range Established Current Interpretive Data was last revised on 2017 O2 Sat Art (Measured) 64(C) 90 - 95 % [facility] Comment:Repeated and verifie d. Blood 09/07/2024 5:39 AM CDT 09/07/2024 5:49 AM CDT us Perla Roldan MD LAB BLOOD ORDERABLES F inal Result [facility] [place] [address] * eGFR (09/07/2024 2:43 AM CDT) Pathologist [facility] [place] eGFR >90 >=60 mL/min/1. 73 m2 Comment: [...] MD LAB BLOOD ORDERABLES Lila dawson Result [facility] Department [place] [address] * (ABNORMAL) Differential, auto (09/07/2024 2:43 AM CDT) Neutrophil abs 5.50 1.50 - 6.50 K/cumm Imm gran abs 0.04 0.00 - 0.10 K/cumm [facility] Lymphocyte abs 0.21(L) 0.80 - 3.30 K/cumm [facility] Monocyte abs 0.42 0.20 - 0.80 K/cumm [facility] Eosinophil abs 0.01 0.00 - 0.50 K/cumm [facility] Basophil abs 0.01 0.00 - 0.10 K/cumm [facility] Neutrophil pct 88.8 % [facility] Comment: Interpretive Data Percent cell count reference ranges are not reported, since discordance with absolute values may lead to misinterpretation of CBC data. Current Interpretive Data was last revised on 2017. Imm gran pct 0.6 % [facility] Comment: Interpretive Data Percent cell count reference ranges are not reported, since discordance with absolute values may lead to misinterpretation of CBC data. Current Interpretive Data was last revised on 2017. Lymphocyte pct 3.4 % [facility] Comment: Interpretive Data Percent cell count reference ranges are not reported, since discordance with absolute values may lead to misinterpretation of CBC data. Current Interpretive Data was last revised on 2017. Monocyte pct 6.8 % [facility] Comment: Interpretive Data Percent cell count reference ranges are not reported, since discordance with absolute values may lead to misinterpretation of CBC data. Current Interpretive Data was last revised on 2017. Eosinophil pct 0.2 % [facility] Comment: Interpretive Data Percent cell count reference ranges are not reported, since discordance with absolute values may lead to misinterpretation of CBC data. Current Interpretive Data was last revised on 2017. Basophil pct 0.2 % [facility] Comment: Interpretive Data Percent cell count reference ranges are not reported, since discordance with absolute values may lead to misinterpretation of CBC data. Current Interpretive Data was last revised on 2017. Blood 09/07/2024 2:43 AM CDT 09/07/2024 4:42 AM CDT us Smith Sawyer MD LAB BLOOD ORDERABLES Lila dawson Result [facility] Department [place] [address] * Critical Result Callback Chemistry (09/07/2024 2:43 AM CDT) Date Notified [id number] Time Notified 454 STAN COREY TestName p O2 Art STAN COREY Called/Read Back Olivier COREY Credentials RN STAN COREY Called By LUKAS COREY Blood 09/07/2024 2:43 AM CDT 09/07/2024 4:41 AM CDT us Perla Roldan MD LAB BLOOD ORDERABLES F inal Result Performing Organization Address [facility] Co de Phone Number [facility] [place] [address] * (ABNORMAL) CBC with auto differential (09/07/2024 2:43 AM CDT) Pathologist [facility] [place] WBC 6.19 3.80 - 9.90 K/cumm Hgb 10.1(L) 13.0 - 17.5 g/dL [facility] Hct 30.0(L) 38.9 - 50.3 % [facility] Plt 57(L) 150 - 400 K/cumm [facility] MPV 11.7 9.1 - 12.3 fL [facility] RBC 2.80(L) 4.30 - 5.80 M/cumm [facility] MCV 107.1(H) 81.3 - 96.4 fL [facility] MCH 36.1(H) 27.1 - 33.3 pg [facility] MCHC 33.7 32.3 - 35.7 g/dL [facility] RDW CV 18.8(H) 11.1 - 14.9 % [facility] RDW SD 73.8(H) 35.7 - 48.1 fL [facility] NRBC abs 0.00 0.00 - 0.01 K/cumm [facility] Blood 09/07/2024 2:43 AM CDT 09/07/2024 4:42 AM CDT Smith Sawyer MD LAB BLOOD ORDERABLES Lila l Result Performing Organization Address City/[facility]/ZIP Co de Phone Number [facility] Department [place] [address] * aPTT (09/07/2024 2:43 AM CDT) Pathologist [facility] [place] aPTT 32 28 - 38 sec Comment: Interpretive Data Heparin therapeutic range: 66.0 - 100.0 seconds. Range based on correlation with therapeutic heparin activity range of 0.3 - 0.7 Units/mL. Current interpretive data was last revised on 2023. Blood 09/07/2024 2:43 AM CDT 09/07/2024 4:40 AM CDT Result [facility] Smith Sawyer MD LAB BLOOD ORDERABLES Lila l Result Performing Organization Address [facility] Phone Number [facility] [place] [address] * (ABNORMAL) Protime-INR (09/07/2024 2:43 AM CDT) PT 28.4(H) 9.7 - 13.0 sec INR 2.58(H) 0.90 - 1.20 [facility] Comment: Interpretive data Oral anticoagulant therapeutic ranges: Venous thromboembolism prophylaxis or treatment: 2.0-3.0 CARDIOLOGY Standard range: 2.0-3.0 High-intensity range: 2.5-3.5 Refer to indication-specific guidelines for appropriate target ranges for prosthetic heart valve replacement. Current interpretive data was last revised on 2019. Blood 09/07/2024 2:43 AM CDT 09/07/2024 4:40 AM CDT Result [facility] Zuleima Levine MD LAB BLOOD ORDERABLES Lila l Result Performing Organization Address [facility] de Phone Number [facility] [place] [address] * Type and screen (09/07/2024 2:43 AM CDT) Minna, indirect Negative ABO Rh A Positive [facility] Blood 09/07/2024 2:43 AM CDT 09/07/2024 4:44 AM CDT N[facility]ative [facility] - 09/07/2024 7:55 AM CDT Has the patient had Daratumumab or Isatuximab in the past 6 months?->Unknown us Smith Sawyer MD LAB BLOOD BANK TEST ORDER DEMETRIO Final Result Performing Organization Address [facility] de Phone Number [facility] [place] [address] * Uric acid (09/07/2024 2:43 AM CDT) Uric acid 3.8 3.0 - 8.0 mg/dL Blood 09/07/2024 2:43 AM CDT 09/07/2024 4:42 AM CDT Narrative [facility] - 09/07/2024 5:14 AM CDT Saturday and only. Morning draw. . us Smith Sawyer MD LAB BLOOD ORDERABLES Lila l Result Performing Organization Address [facility] de Phone Number [facility] [place] [address] * Phosphorus (09/07/2024 2:43 AM CDT) Phosphorus, pl 2.9 2.3 - 4.5 mg/dL Blood 09/07/2024 2:43 AM CDT 09/07/2024 4:42 AM CDT us Smith Sawyer MD LAB BLOOD ORDERABLES Lila l Result Performing Organization Address [facility] Co de Phone Number [facility] [place] [address] * (ABNORMAL) Lactate dehydrogenase (LD) (09/07/2024 2:43 AM CDT) Lactate dehydrogenase (LDH) 371(H) 100 - 250 Units/L Blood 09/07/2024 2:43 AM CDT 09/07/2024 4:42 AM CDT Narrative [facility] - 09/07/2024 5:14 AM CDT Saturday and only. Morning draw. us Smith Sawyer MD LAB BLOOD ORDERABLES Lila dawson Result Performing Organization Address [facility] Co de Phone Number [facility] [place] [address] * (ABNORMAL) Blood gas, arterial (09/07/2024 2:43 AM CDT) pH, Art 7.45 7.35 - 7.45 PCO2, Arterial 42 35 - 45 mmHg [facility] PO2, Arterial 32(C) 83 - 108 mmHg [facility] Comment:Repeated and verifie d. HCO3 Art (Calculated) 30 20 - 30 mmol/L [facility] BE, art 4 mmol/L [facility] Comment: Interpretive Data No Reference Range Established Current Interpretive Data was last revised on 2017 O2 Sat Art (Measured) 58(C) 90 - 95 % [facility] Comment:Repeated and verifie d. Blood 09/07/2024 2:43 AM CDT 09/07/2024 4:41 AM CDT Perla Roldan MD LAB BLOOD ORDERABLES F inal Result Performing Organization Address [facility] de Phone Number [facility] Department [place] [address] * (ABNORMAL) Comprehensive metabolic panel (09/07/2024 2:43 AM CDT) Sodium 136 135 - 145 mmol/L Potassium, pl 3.8 3.3 - 4.9 mmol/L [facility] Chloride 96(L) 97 - 110 mmol/L [facility] CO2 33(H) 22 - 32 mmol/L [facility] Anion gap 7 2 - 15 mmol/L [facility] BUN 15 6 - 25 mg/dL [facility] Creatinine 0.84 0.80 - 1.30 mg/dL [facility] Glucose 116 70 - 199 mg/dL [facility] Comment: Interpretive Data Fasting glucose >/= 126 [...] Calcium 7.9(L) 8.5 - 10.3 mg/dL [facility] Bilirubin, total 1.4(H) 0.1 - 1.2 mg/dL [facility] Protein, pl 5.4(L) 6.5 - 8.5 g/dL [facility] Albumin 2.4(L) 3.5 - 5.0 g/dL [facility] Alk phos 275(H) 40 - 130 Units/L [facility] ALT 31 7 - 55 Units/L [facility] AST 78(H) 10 - 50 Units/L [facility] Blood 09/07/2024 2:43 AM CDT 09/07/2024 4:42 AM CDT us Smith Sawyer MD LAB BLOOD ORDERABLES Lila dawson Result [facility] Department [place] [address] * eGFR (09/06/2024 12:41 AM CDT) eGFR [...] MD LAB BLOOD ORDERABLES Lila dawson Result [facility] Department [place] [address] * (ABNORMAL) Differential, auto (09/06/2024 12:41 AM CDT) Neutrophil abs 4.99 1.50 - 6.50 K/cumm Imm gran abs 0.07 0.00 - 0.10 K/cumm [facility] Lymphocyte abs 0.35(L) 0.80 - 3.30 K/cumm [facility] Monocyte abs 0.94(H) 0.20 - 0.80 K/cumm [facility] Eosinophil abs 0.01 0.00 - 0.50 K/cumm [facility] Basophil abs 0.01 0.00 - 0.10 K/cumm [facility] Neutrophil pct 78.2 % [facility] Comment: Interpretive Data Percent cell count reference ranges are not reported, since discordance with absolute values may lead to misinterpretation of CBC data. Current Interpretive Data was last revised on 2017. Imm gran pct 1.1 % [facility] Comment: Interpretive Data Percent cell count reference ranges are not reported, since discordance with absolute values may lead to misinterpretation of CBC data. Current Interpretive Data was last revised on 2017. Lymphocyte pct 5.5 % [facility] Comment: Interpretive Data Percent cell count reference ranges are not reported, since discordance with absolute values may lead to misinterpretation of CBC data. Current Interpretive Data was last revised on 2017. Monocyte pct 14.8 % [facility] Comment: Interpretive Data Percent cell count reference ranges are not reported, since discordance with absolute values may lead to misinterpretation of CBC data. Current Interpretive Data was last revised on 2017. Eosinophil pct 0.2 % [facility] Comment: Interpretive Data Percent cell count reference ranges are not reported, since discordance with absolute values may lead to misinterpretation of CBC data. Current Interpretive Data was last revised on 2017. Basophil pct 0.2 % [facility] Comment: Interpretive Data Percent cell count reference ranges are not reported, since discordance with absolute values may lead to misinterpretation of CBC data. Current Interpretive Data was last revised on 2017. Blood 09/06/2024 12:4 1 AM CDT 09/06/2024 12:55 AM CDT Smith Sawyer MD LAB BLOOD ORDERABLES Lila dawson Result [facility] Department [place] [address] * (ABNORMAL) CBC with auto differential (09/06/2024 12:41 AM CDT) WBC 6.37 3.80 - 9.90 K/cumm Hgb 8.6(L) 13.0 - 17.5 g/dL [facility] Hct 25.3(L) 38.9 - 50.3 % [facility] Plt 61(L) 150 - 400 K/cumm [facility] MPV 11.6 9.1 - 12.3 fL [facility] RBC 2.35(L) 4.30 - 5.80 M/cumm [facility] MCV 107.7(H) 81.3 - 96.4 fL [facility] MCH 36.6(H) 27.1 - 33.3 pg [facility] MCHC 34.0 32.3 - 35.7 g/dL [facility] RDW CV 18.8(H) 11.1 - 14.9 % [facility] RDW SD 74.0(H) 35.7 - 48.1 fL [facility] NRBC abs 0.00 0.00 - 0.01 K/cumm [facility] Blood 09/06/2024 12:4 1 AM CDT 09/06/2024 12:55 AM CDT Smith Sawyer MD LAB BLOOD ORDERABLES Lila l Result Performing Organization Address [facility] Co de Phone Number [facility] [place] [address] * (ABNORMAL) Protime-INR (09/06/2024 12:41 AM CDT) PT 26.9(H) 9.7 - 13.0 sec INR 2.45(H) 0.90 - 1.20 [facility] Comment: Interpretive data Oral anticoagulant therapeutic [...] Performing Organization Address [facility] Co de Phone Number [facility] Department [place] [address] * Phosphorus (09/06/2024 12:41 AM CDT) Phosphorus, pl 3.2 2.3 - 4.5 mg/dL Blood 09/06/2024 12:4 1 AM CDT 09/06/2024 12:55 AM CDT Smith Sawyer MD LAB BLOOD ORDERABLES Lila l Result Performing Organization Address [facility] Co de Phone Number [facility] Department [place] [address] * (ABNORMAL) Comprehensive metabolic panel (09/06/2024 12:41 AM CDT) Sodium 135 135 - 145 mmol/L Potassium, pl 3.9 3.3 - 4.9 mmol/L [facility] Chloride 97 97 - 110 mmol/L [facility] CO2 33(H) 22 - 32 mmol/L [facility] Anion gap 5 2 - 15 mmol/L [facility] BUN 14 6 - 25 mg/dL [facility] Creatinine 0.83 0.80 - 1.30 mg/dL [facility] Glucose 98 70 - 199 mg/dL [facility] Comment: Interpretive Data Fasting glucose >/= 126 [...] 2022. Calcium 7.7(L) 8.5 - 10.3 mg/dL [facility] Bilirubin, total 0.6 0.1 - 1.2 mg/dL [facility] Protein, pl 5.0(L) 6.5 - 8.5 g/dL [facility] Albumin 2.2(L) 3.5 - 5.0 g/dL [facility] Alk phos 139(H) 40 - 130 Units/L [facility] ALT 20 7 - 55 Units/L [facility] AST 46 10 - 50 Units/L [facility] Blood 09/06/2024 12:4 1 AM CDT 09/06/2024 12:55 AM CDT us Smith Sawyer MD LAB BLOOD ORDERABLES Lila eunice Result [facility] Department [place] [address] * eGFR (09/05/2024 1:43 AM CDT) eGFR [...] LAB BLOOD ORDERABLES Lila eunice Result [facility] Department [place] [address] * (ABNORMAL) Differential, auto (09/05/2024 1:43 AM CDT) Pathologist [facility] [place] Neutrophil abs 3.92 1.50 - 6.50 K/cumm Imm gran abs 0.04 0.00 - 0.10 K/cumm [facility] Lymphocyte abs 0.28(L) 0.80 - 3.30 K/cumm [facility] Monocyte abs 0.58 0.20 - 0.80 K/cumm [facility] Eosinophil abs 0.00 0.00 - 0.50 K/cumm [facility] Basophil abs 0.00 0.00 - 0.10 K/cumm [facility] Neutrophil pct 81.4 % [facility] Comment: Interpretive Data Percent cell count reference ranges are not reported, since discordance with absolute values may lead to misinterpretation of CBC data. Current Interpretive Data was last revised on 2017. Imm gran pct 0.8 % [facility] Comment: Interpretive Data Percent cell count reference ranges are not reported, since discordance with absolute values may lead to misinterpretation of CBC data. Current Interpretive Data was last revised on 2017. Lymphocyte pct 5.8 % [facility] Comment: Interpretive Data Percent cell count reference ranges are not reported, since discordance with absolute values may lead to misinterpretation of CBC data. Current Interpretive Data was last revised on 2017. Monocyte pct 12.0 % [facility] Comment: Interpretive Data Percent cell count reference ranges are not reported, since discordance with absolute values may lead to misinterpretation of CBC data. Current Interpretive Data was last revised on 2017. Eosinophil pct 0.0 % [facility] Comment: Interpretive Data Percent cell count reference ranges are not reported, since discordance with absolute values may lead to misinterpretation of CBC data. Current Interpretive Data was last revised on 2017. Basophil pct 0.0 % [facility] Comment: Interpretive Data Percent cell count reference ranges are not reported, since discordance with absolute values may lead to misinterpretation of CBC data. Current Interpretive Data was last revised on 2017. Blood 09/05/2024 1:43 AM CDT 09/05/2024 2:00 AM CDT us Smith Sawyer MD LAB BLOOD ORDERABLES Lial l Result [facility] [place] [address] * (ABNORMAL) CBC with auto differential (09/05/2024 1:43 AM CDT) WBC 4.82 3.80 - 9.90 K/cumm Hgb 9.2(L) 13.0 - 17.5 g/dL [facility] Hct 26.3(L) 38.9 - 50.3 % [facility] Plt 82(L) 150 - 400 K/cumm [facility] MPV 11.8 9.1 - 12.3 fL [facility] RBC 2.47(L) 4.30 - 5.80 M/cumm [facility] MCV 106.5(H) 81.3 - 96.4 fL [facility] MCH 37.2(H) 27.1 - 33.3 pg [facility] MCHC 35.0 32.3 - 35.7 g/dL [facility] RDW CV 19.3(H) 11.1 - 14.9 % [facility] RDW SD 75.1(H) 35.7 - 48.1 fL [facility] NRBC abs 0.00 0.00 - 0.01 K/cumm [facility] Blood 09/05/2024 1:43 AM CDT 09/05/2024 2:00 AM CDT us Smith Sawyer MD LAB BLOOD ORDERABLES Lila l Result [facility] Department [place] [address] * (ABNORMAL) Protime-INR (09/05/2024 1:43 AM CDT) PT 21.5(H) 9.7 - 13.0 sec INR 1.96(H) 0.90 - 1.20 [facility] Comment: Interpretive data Oral anticoagulant therapeutic ranges: Venous thromboembolism prophylaxis or treatment: 2.0-3.0 CARDIOLOGY Standard range: 2.0-3.0 High-intensity range: 2.5-3.5 Refer to indication-specific guidelines for appropriate target ranges for prosthetic heart valve replacement. Current interpretive data was last revised on 2019. Blood 09/05/2024 1:43 AM CDT 09/05/2024 2:05 AM CDT Zuleima Levine MD LAB BLOOD ORDERABLES Lila l Result [facility] Department [place] [address] * Phosphorus (09/05/2024 1:43 AM CDT) Pathologist [facility] [place] Phosphorus, pl 4.1 2.3 - 4.5 mg/dL Blood 09/05/2024 1:43 AM CDT 09/05/2024 2:00 AM CDT Smith Sawyer MD LAB BLOOD ORDERABLES Lila l Result Performing Organization Address [facility] Co de Phone Number [facility] Department [place] [address] * (ABNORMAL) Comprehensive metabolic panel (09/05/2024 1:43 AM CDT) [facility] Sodium 138 135 - 145 mmol/L Potassium, pl 3.6 3.3 - 4.9 mmol/L [facility] Chloride 97 97 - 110 mmol/L [facility] CO2 33(H) 22 - 32 mmol/L [facility] Anion gap 8 2 - 15 mmol/L [facility] BUN 13 6 - 25 mg/dL [facility] Creatinine 0.90 0.80 - 1.30 mg/dL [facility] Glucose 110 70 - 199 mg/dL [facility] Comment: Interpretive Data Fasting glucose >/= 126 [...] 2022. Calcium 8.0(L) 8.5 - 10.3 mg/dL [facility] Bilirubin, total 0.6 0.1 - 1.2 mg/dL [facility] Protein, pl 5.3(L) 6.5 - 8.5 g/dL [facility] Albumin 2.7(L) 3.5 - 5.0 g/dL [facility] Alk phos 135(H) 40 - 130 Units/L [facility] ALT 22 7 - 55 Units/L [facility] AST 44 10 - 50 Units/L [facility] Blood 09/05/2024 1:43 AM CDT 09/05/2024 2:00 AM CDT us Smith Sawyer MD LAB BLOOD ORDERABLES Lila dawson Result [facility] Department [place] [address] * XR Chest 1 View (09/04/2024 11:51 [...] AM CDT Narrative 09/04/2024 11:04 AM CDT [facility] [place] [address] Transthoracic Echocardiographic Report Patient Name: SULMA BAZAN AL : 1950 (74y 1m) Gender: M Study Date: 09/04/2024 08:53:34 Ht(Inch): 70 Wt(Lb): 218.03 BSA: 2.21 Document Improvement Specialist: mary cross Location: [id number] Order Provider: FRANCISCO SAHU Heart Rate: 60 [...] LA Length 4C 6.12 cm AI Decel [place] 3.63 m/s2 LA Length 2C 7.21 cm [...] Procedure Note Gilberto Fish MD - 09/04/2024 [facility] [address] Transthoracic Echocardiographic Report Patient Name: SULMA BAZAN AL : 1950 (74y 1m) Gender: M Study Date: 09/04/2024 08:53:34 Ht(Inch): 70 Wt(Lb): 218.03 BSA: 2.21 Document Improvement Specialist: mary cross Location: [id number] Order Provider:FRANCISCO SAHU Heart Rate: 60 BMI: [...] [ -25.0 - -18.0 ] AI Decel [id number] sec LA Length 4C 6.12 cm AI Decel [place]3.63 m/s2 LA Length 2C 7.21 cm AI [id number] msec LA Volume BP 133.31 ml MV [...] MD LAB BLOOD ORDERABLES Lila l Result [facility] [place] [address] * (ABNORMAL) Differential, auto (09/04/2024 12:25 AM CDT) Neutrophil abs 2.69 1.50 - 6.50 K/cumm Imm gran abs 0.01 0.00 - 0.10 K/cumm [facility] Lymphocyte abs 0.25(L) 0.80 - 3.30 K/cumm [facility] Monocyte abs 0.42 0.20 - 0.80 K/cumm [facility] Eosinophil abs 0.00 0.00 - 0.50 K/cumm [facility] Basophil abs 0.01 0.00 - 0.10 K/cumm [facility] Neutrophil pct 79.6 % [facility] Comment: Interpretive Data Percent cell count reference ranges are not reported, since discordance with absolute values may lead to misinterpretation of CBC data. Current Interpretive Data was last revised on 2017. Imm gran pct 0.3 % [facility] Comment: Interpretive Data Percent cell count reference ranges are not reported, since discordance with absolute values may lead to misinterpretation of CBC data. Current Interpretive Data was last revised on 2017. Lymphocyte pct 7.4 % [facility] Comment: Interpretive Data Percent cell count reference ranges are not reported, since discordance with absolute values may lead to misinterpretation of CBC data. Current Interpretive Data was last revised on 2017. Monocyte pct 12.4 % [facility] Comment: Interpretive Data Percent cell count reference ranges are not reported, since discordance with absolute values may lead to misinterpretation of CBC data. Current Interpretive Data was last revised on 2017. Eosinophil pct 0.0 % [facility] Comment: Interpretive Data Percent cell count reference ranges are not reported, since discordance with absolute values may lead to misinterpretation of CBC data. Current Interpretive Data was last revised on 2017. Basophil pct 0.3 % [facility] Comment: Interpretive Data Percent cell count reference ranges are not reported, since discordance with absolute values may lead to misinterpretation of CBC data. Current Interpretive Data was last revised on 2017. Blood 09/04/2024 12:2 5 AM CDT 09/04/2024 1:15 AM CDT us Smith Sawyer MD LAB BLOOD ORDERABLES Lila dawson Result [facility] Department [place] [address] * (ABNORMAL) Pro B-type natriuretic peptide (09/04/2024 12:25 AM CDT) [facility] NT-proBNP 1,527(H) <=450 pg/mL Comment: Interpretive Comments: [...] LAB BLOOD ORDERABLES F inal Result [facility] Department [place] [address] * (ABNORMAL) CBC with auto differential (09/04/2024 12:25 AM CDT) WBC 3.38(L) 3.80 - 9.90 K/cumm Hgb 8.9(L) 13.0 - 17.5 g/dL [facility] Hct 26.1(L) 38.9 - 50.3 % [facility] Plt 74(L) 150 - 400 K/cumm [facility] MPV 11.9 9.1 - 12.3 fL [facility] RBC 2.45(L) 4.30 - 5.80 M/cumm [facility] MCV 106.5(H) 81.3 - 96.4 fL [facility] MCH 36.3(H) 27.1 - 33.3 pg [facility] MCHC 34.1 32.3 - 35.7 g/dL [facility] RDW CV 19.5(H) 11.1 - 14.9 % [facility] RDW SD 74.8(H) 35.7 - 48.1 fL [facility] NRBC abs 0.00 0.00 - 0.01 K/cumm [facility] Blood 09/04/2024 12:2 5 AM CDT 09/04/2024 1:15 AM CDT Smith Sawyer MD LAB BLOOD ORDERABLES Lila dawson Result [facility] Department [place] [address] * (ABNORMAL) Protime-INR (09/04/2024 12:25 AM CDT) Pathologist [facility] [place] PT 18.3(H) 9.7 - 13.0 sec INR 1.68(H) 0.90 - 1.20 [facility] Comment: Interpretive data Oral anticoagulant therapeutic ranges: Venous thromboembolism prophylaxis or treatment: 2.0-3.0 CARDIOLOGY Standard range: 2.0-3.0 High-intensity range: 2.5-3.5 Refer to indication-specific guidelines for appropriate target ranges for prosthetic heart valve replacement. Current interpretive data was last revised on 2019. Blood 09/04/2024 12:2 5 AM CDT 09/04/2024 1:11 AM CDT Zuleima Levine MD LAB BLOOD ORDERABLES Lila l Result [facility] Department [place] [address] * Phosphorus (09/04/2024 12:25 AM CDT) Pathologist [facility] [place] Phosphorus, pl 3.0 2.3 - 4.5 mg/dL Blood 09/04/2024 12:2 5 AM CDT 09/04/2024 1:13 AM CDT Smith Sawyer MD LAB BLOOD ORDERABLES Lila l Result Performing Organization Address [facility] Co de Phone Number [facility] Department [place] [address] * (ABNORMAL) Comprehensive metabolic panel (09/04/2024 12:25 AM CDT) [facility] Sodium 137 135 - 145 mmol/L Potassium, pl 4.1 3.3 - 4.9 mmol/L [facility] Chloride 101 97 - 110 mmol/L [facility] CO2 29 22 - 32 mmol/L [facility] Anion gap 7 2 - 15 mmol/L [facility] BUN 15 6 - 25 mg/dL [facility] Creatinine 0.80 0.80 - 1.30 mg/dL [facility] Glucose 125 70 - 199 mg/dL [facility] Comment: Interpretive Data Fasting glucose >/= 126 [...] Calcium 8.2(L) 8.5 - 10.3 mg/dL [facility] Bilirubin, total 0.5 0.1 - 1.2 mg/dL [facility] Protein, pl 5.2(L) 6.5 - 8.5 g/dL [facility] Albumin 2.6(L) 3.5 - 5.0 g/dL [facility] [facility] Alk phos 96 40 - 130 Units/L [facility] ALT 20 7 - 55 Units/L [facility] AST 42 10 - 50 Units/L [facility] Blood 09/04/2024 12:2 5 AM CDT 09/04/2024 1:13 AM CDT us Smith Sawyer MD LAB BLOOD ORDERABLES Lila l Result Performing Organization Address City/State/[facility] Co de Phone Number [facility] Department of Laboratories [place] [phone] * US Vein Duplex Lower Extremity Bilateral Complete (09/03/2024 3:52 PM CDT) Anatomical Region Laterality Modality Vascular Bilateral Ultrasound 09/03/2024 3:31 PM CDT Narrative 09/04/2024 4:15 PM CDT [facility] - Department of Vascular Surgery, Vascular Laboratory [address] [place] [address] Lower Extremity Venous Ultrasound Report Patient Name: SULMA BAZAN AL : 1950 (74y 1m) Study Date: 09/03/2024 3:31:25 PM Gender: M Tech: Location: [id number] Ref Provider: FRANCISCO SAHU Quality: Adequate Order [...] Swelling, Lower Extremity, Bilateral - FINDINGS: Performing Document Improvement Specialist: Alethea Osorio RVT, RDMS. Bilateral: Venous Doppler [...] Procedure Note Michael Torres MD - 09/04/2024 [facility] - Department of Vascular Surgery,Vascular Laboratory [address] [place] [id number] Lower Extremity Venous Ultrasound Report Patient Name: SULMA BAZAN AL : 1950 (74y 1m) Study Date: 09/03/2024 3:31:25 PM Gender: M Tech: Location: [id number] Ref Provider: FRANCISCO SAHU Quality: Adequate Order Provider: FRANCISCO SAHU PROCEDURES: Vascular Report: Venous Duplex imaging was performed bilaterally in the lower extremities.The common femoral, femoral, popliteal, posterior tibial, peroneal veins wereevaluated for patency, spontaneity and phasicity with Doppler, compression and augmentationmaneuvers. Great saphenous vein proximal at the junction was evaluated with compressionmaneuvers. INDICATIONS: Swelling, Lower Extremity, Bilateral - FINDINGS: Performing Document Improvement Specialist: Alethea Osorio RVT, RDMS. Bilateral: Venous Doppler [...] above. Electronically Signed By: Michael Torres MD [facility] 09/04/2024 4:00:58 PM CDT us Yatahey Filippo Sahu MD [facility] US PROCEDURES Lila l Result * XR [...] LAB BLOOD ORDERABLES Lila l Result [facility] Department of Laboratories [place], [place] [phone] * (ABNORMAL) Differential, auto (09/03/2024 12:59 AM CDT) Pathologist [facility] [place] Neutrophil abs 3.63 1.50 - 6.50 K/cumm Imm gran abs 0.03 0.00 - 0.10 K/cumm [facility] Lymphocyte abs 0.27(L) 0.80 - 3.30 K/cumm [facility] Monocyte abs 0.72 0.20 - 0.80 K/cumm [facility] Eosinophil abs 0.05 0.00 - 0.50 K/cumm [facility] Basophil abs 0.02 0.00 - 0.10 K/cumm [facility] Neutrophil pct 76.9 % [facility] Comment: Interpretive Data Percent cell count reference ranges are not reported, since discordance with absolute values may lead to misinterpretation of CBC data. Current Interpretive Data was last revised on 2017. Imm gran pct 0.6 % [facility] Comment: Interpretive Data Percent cell count reference ranges are not reported, since discordance with absolute values may lead to misinterpretation of CBC data. Current Interpretive Data was last revised on 2017. Lymphocyte pct 5.7 % [facility] Comment: Interpretive Data Percent cell count reference ranges are not reported, since discordance with absolute values may lead to misinterpretation of CBC data. Current Interpretive Data was last revised on 2017. Monocyte pct 15.3 % [facility] Comment: Interpretive Data Percent cell count reference ranges are not reported, since discordance with absolute values may lead to misinterpretation of CBC data. Current Interpretive Data was last revised on 2017. Eosinophil pct 1.1 % [facility] Comment: Interpretive Data Percent cell count reference ranges are not reported, since discordance with absolute values may lead to misinterpretation of CBC data. Current Interpretive Data was last revised on 2017. Basophil pct 0.4 % [facility] Comment: Interpretive Data Percent cell count reference ranges are not reported, since discordance with absolute values may lead to misinterpretation of CBC data. Current Interpretive Data was last revised on 2017. Blood 09/03/2024 12:5 9 AM CDT 09/03/2024 1:14 AM CDT Smith Sawyer MD LAB BLOOD ORDERABLES Lila l Result [facility] [place] [address] * (ABNORMAL) CBC with auto differential (09/03/2024 12:59 AM CDT) WBC 4.72 3.80 - 9.90 K/cumm Hgb 9.1(L) 13.0 - 17.5 g/dL [facility] Hct 25.8(L) 38.9 - 50.3 % [facility] Plt 82(L) 150 - 400 K/cumm [facility] MPV 11.5 9.1 - 12.3 fL [facility] RBC 2.41(L) 4.30 - 5.80 M/cumm [facility] MCV 107.1(H) 81.3 - 96.4 fL [facility] MCH 37.8(H) 27.1 - 33.3 pg [facility] MCHC 35.3 32.3 - 35.7 g/dL [facility] RDW CV 19.9(H) 11.1 - 14.9 % [facility] RDW SD 76.8(H) 35.7 - 48.1 fL [facility] NRBC abs 0.00 0.00 - 0.01 K/cumm [facility] Blood 09/03/2024 12:5 9 AM CDT 09/03/2024 1:14 AM CDT Smith Sawyer MD LAB BLOOD ORDERABLES Lila l Result [facility] [place] [address] * (ABNORMAL) Protime-INR (09/03/2024 12:59 AM CDT) PT 18.3(H) 9.7 - 13.0 sec INR 1.68(H) 0.90 - 1.20 [facility] Comment: Interpretive data Oral anticoagulant therapeutic [...] ORDERABLES Lila l Result Performing Organization Address City/[facility]/ZIP Co de Phone Number [facility] [place] [address] * Type and screen (09/03/2024 12:59 AM CDT) Minna, indirect Negative ABO Rh A Positive [facility] Blood 09/03/2024 12:5 9 AM CDT 09/03/2024 1:31 AM CDT Narrative [facility] - 09/03/2024 3:30 AM CDT Has the patient had Daratumumab or Isatuximab in the past 6 months?->Unknown Result [facility] Smith Sawyer MD LAB BLOOD BANK TEST ORDER DEMETRIO Final Result Performing Organization Address City/[facility]/ZIP Co de Phone Number [facility] [place] [address] * Uric acid (09/03/2024 12:59 AM CDT) Uric acid 5.0 3.0 - 8.0 mg/dL Blood 09/03/2024 12:5 9 AM CDT 09/03/2024 1:14 AM CDT Narrative [facility] - 09/03/2024 1:43 AM CDT Saturday and only. Morning draw. . Smith Sawyer MD LAB BLOOD ORDERABLES Lila l Result Performing Organization Address [facility] de Phone Number [facility] [place] [address] * Phosphorus (09/03/2024 12:59 AM CDT) Phosphorus, pl 2.7 2.3 - 4.5 mg/dL Blood 09/03/2024 12:5 9 AM CDT 09/03/2024 1:14 AM CDT Smith Sawyer MD LAB BLOOD ORDERABLES Lila l Result Performing Organization Address [facility] de Phone Number [facility] Department [place] [address] * Magnesium (09/03/2024 12:59 AM CDT) Pathologist [facility] [place] Magnesium 1.6 1.4 - 2.5 mg/dL Blood 09/03/2024 12:5 9 AM CDT 09/03/2024 1:14 AM CDT Zuleima Levine MD LAB BLOOD ORDERABLES Lila l Result Performing Organization Address [facility] de Phone Number [facility] Department [place] [address] * (ABNORMAL) Lactate dehydrogenase (LD) (09/03/2024 12:59 AM CDT) Lactate dehydrogenase (LDH) 356(H) 100 - 250 Units/L Blood 09/03/2024 12:5 9 AM CDT 09/03/2024 1:14 AM CDT Narrative [facility] - 09/03/2024 1:43 AM CDT Saturday and only. Morning draw. Smith Sawyer MD LAB BLOOD ORDERABLES Lila l Result Performing Organization Address [facility]/ZIP Co de Phone Number [facility] Department [place] [address] * (ABNORMAL) Comprehensive metabolic panel (09/03/2024 12:59 AM CDT) Sodium 133(L) 135 - 145 mmol/L Potassium, pl 3.1(L) 3.3 - 4.9 mmol/L [facility] Chloride 99 97 - 110 mmol/L [facility] CO2 28 22 - 32 mmol/L [facility] Anion gap 6 2 - 15 mmol/L [facility] BUN 15 6 - 25 mg/dL [facility] Creatinine 0.82 0.80 - 1.30 mg/dL [facility] Glucose 121 70 - 199 mg/dL [facility] Comment: Interpretive Data Fasting glucose >/= 126 [...] 2022. Calcium 7.9(L) 8.5 - 10.3 mg/dL [facility] Bilirubin, total 0.7 0.1 - 1.2 mg/dL [facility] Protein, pl 4.9(L) 6.5 - 8.5 g/dL [facility] Albumin 2.6(L) 3.5 - 5.0 g/dL [facility] Alk phos 86 40 - 130 Units/L [facility] ALT 22 7 - 55 Units/L [facility] AST 45 10 - 50 Units/L [facility] Blood 09/03/2024 12:5 9 AM CDT 09/03/2024 1:14 AM CDT us Smith Sawyer MD LAB BLOOD ORDERABLES Lila l Result [facility] [place] [address] * eGFR (09/02/2024 12:41 AM CDT) Pathologist [facility] [place] eGFR >90 >=60 mL/min/1. 73 m2 Comment: [...] LAB BLOOD ORDERABLES Lila dawson Result [facility] [place] [address] * (ABNORMAL) Differential, auto (09/02/2024 12:41 AM CDT) Pathologist [facility] Neutrophil abs 4.18 1.50 - 6.50 K/cumm Imm gran abs 0.05 0.00 - 0.10 K/cumm [facility] Lymphocyte abs 0.41(L) 0.80 - 3.30 K/cumm [facility] Monocyte abs 0.83(H) 0.20 - 0.80 K/cumm [facility] Eosinophil abs 0.08 0.00 - 0.50 K/cumm [facility] Basophil abs 0.03 0.00 - 0.10 K/cumm [facility] Neutrophil pct 75.0 % [facility] Comment: Interpretive Data Percent cell count reference ranges are not reported, since discordance with absolute values may lead to misinterpretation of CBC data. Current Interpretive Data was last revised on 2017. Imm gran pct 0.9 % [facility] Comment: Interpretive Data Percent cell count reference ranges are not reported, since discordance with absolute values may lead to misinterpretation of CBC data. Current Interpretive Data was last revised on 2017. Lymphocyte pct 7.3 % [facility] Comment: Interpretive Data Percent cell count reference ranges are not reported, since discordance with absolute values may lead to misinterpretation of CBC data. Current Interpretive Data was last revised on 2017. Monocyte pct 14.9 % [facility] Comment: Interpretive Data Percent cell count reference ranges are not reported, since discordance with absolute values may lead to misinterpretation of CBC data. Current Interpretive Data was last revised on 2017. Eosinophil pct 1.4 % [facility] Comment: Interpretive Data Percent cell count reference ranges are not reported, since discordance with absolute values may lead to misinterpretation of CBC data. Current Interpretive Data was last revised on 2017. Basophil pct 0.5 % [facility] Comment: Interpretive Data Percent cell count reference ranges are not reported, since discordance with absolute values may lead to misinterpretation of CBC data. Current Interpretive Data was last revised on 2017. Blood 09/02/2024 12:4 1 AM CDT 09/02/2024 1:02 AM CDT us Smith Sawyer MD LAB BLOOD ORDERABLES Lila dawson Result [facility] Department [place] [address] * (ABNORMAL) CBC with auto differential (09/02/2024 12:41 AM CDT) WBC 5.58 3.80 - 9.90 K/cumm Hgb 9.9(L) 13.0 - 17.5 g/dL [facility] Hct 28.6(L) 38.9 - 50.3 % [facility] Plt 111(L) 150 - 400 K/cumm [facility] MPV 11.2 9.1 - 12.3 fL [facility] RBC 2.67(L) 4.30 - 5.80 M/cumm [facility] MCV 107.1(H) 81.3 - 96.4 fL [facility] MCH 37.1(H) 27.1 - 33.3 pg [facility] MCHC 34.6 32.3 - 35.7 g/dL [facility] RDW CV 20.9(H) 11.1 - 14.9 % [facility] RDW SD 80.1(H) 35.7 - 48.1 fL [facility] NRBC abs 0.00 0.00 - 0.01 K/cumm [facility] Blood 09/02/2024 12:4 1 AM CDT 09/02/2024 1:02 AM CDT us Smith Sawyer MD LAB BLOOD ORDERABLES Lila dawson Result [facility] Department [place] [address] * (ABNORMAL) Protime-INR (09/02/2024 12:41 AM CDT) PT 18.5(H) 9.7 - 13.0 sec INR 1.69(H) 0.90 - 1.20 [facility] Comment: Interpretive data Oral anticoagulant therapeutic [...] ORDERABLES Lila l Result Performing Organization Address City/[facility]/ZIP Co de Phone Number [facility] [place] [address] * Phosphorus (09/02/2024 12:41 AM CDT) Pathologist [facility] Phosphorus, pl 2.4 2.3 - 4.5 mg/dL Blood 09/02/2024 12:4 1 AM CDT 09/02/2024 1:02 AM CDT us Smith Saweyr MD LAB BLOOD ORDERABLES Lila l Result Performing Organization Address [facility] Co de Phone Number [facility] [place] [address] * Magnesium (09/02/2024 12:41 AM CDT) [facility] Magnesium 2.0 1.4 - 2.5 mg/dL Blood 09/02/2024 12:4 1 AM CDT 09/02/2024 1:02 AM CDT Zuleima Levine MD LAB BLOOD ORDERABLES Lila l Result Performing Organization Address [facility] Co de Phone Number [facility] [place] [address] * (ABNORMAL) Comprehensive metabolic panel (09/02/2024 12:41 AM CDT) Pathologist [facility] Sodium 140 135 - 145 mmol/L Potassium, pl 3.7 3.3 - 4.9 mmol/L [facility] Chloride 105 97 - 110 mmol/L [facility] CO2 23 22 - 32 mmol/L [facility] Anion gap 12 2 - 15 mmol/L [facility] BUN 14 6 - 25 mg/dL [facility] Creatinine 0.83 0.80 - 1.30 mg/dL [facility] Glucose 106 70 - 199 mg/dL [facility] Comment: Interpretive Data Fasting glucose >/= 126 [...] 2022. Calcium 7.8(L) 8.5 - 10.3 mg/dL [facility] Bilirubin, total 0.6 0.1 - 1.2 mg/dL [facility] Protein, pl 5.1(L) 6.5 - 8.5 g/dL [facility] Albumin 2.9(L) 3.5 - 5.0 g/dL [facility] Alk phos 92 40 - 130 Units/L [facility] ALT 23 7 - 55 Units/L [facility] AST 46 10 - 50 Units/L [facility] Blood 09/02/2024 12:4 1 AM CDT 09/02/2024 1:02 AM CDT us Smith Sawyer MD LAB BLOOD ORDERABLES Lila l Result Performing Organization Address City/State/[facility] Co de Phone Number [facility] Department [place] [address] * US Vein Duplex Upper Extremity Left Limited, Unilateral (09/01/2024 2:27 PM CDT) Anatomical Region Laterality Modality Vascular Left Ultrasound 09/01/2024 1:18 PM CDT Narrative 09/01/2024 6:11 PM CDT [facility] - Department of Vascular Surgery, Vascular Laboratory [address] [place] [address] Upper Extremity Venous Ultrasound Report Patient Name: SULMA BAZAN : 1950 (74y 1m) Study Date: 09/01/2024 1:18:26 PM Gender: M Tech: Location: [id number] Ref Provider: ZULEIMA LEVINE Quality: Adequate Order Provider: ZULEIMA LEVINE PROCEDURES: Vascular Report: Venous Duplex imaging was performed in the left upper extremity. The internal jugular, subclavian and axillary veins were evaluated for patency, spontaneity and phasicity with Doppler, compression and augmentation maneuvers. The brachial, basilic and cephalic veins were also evaluated with compression maneuvers. INDICATIONS: Hypoxemia. FINDINGS: Performing Document Improvement Specialist: Mei Linn RVT. Left: Venous Doppler signals [...] Procedure Note Maikel Gupta MD - 09/01/2024 [facility] - Department of Vascular Surgery,Vascular Laboratory [address] [place] [address] Upper Extremity Venous Ultrasound Report Patient Name: SULMA BAZAN : 1950 (74y 1m) Study Date: 09/01/2024 1:18:26 PM Gender: M Tech: Location: [id number] Ref Provider: ZULEIMA LEVINE Quality: Adequate Order Provider: ZULEIMA LEVINE PROCEDURES: Vascular Report: Venous Duplex imaging was performed in the left upper extremity. Theinternal jugular, subclavian and axillary veins were evaluated for patency, spontaneity andphasicity with Doppler, compression and augmentation maneuvers. The brachial, basilic andcephalic veins were also evaluated with compression maneuvers. INDICATIONS: Hypoxemia. FINDINGS: Performing Document Improvement Specialist: Mei Linn RVT. Left: Venous Doppler signals [...] above. Electronically Signed By: Maikel Gupta MD [facility] 09/01/2024 5:21:16 PM CDT us Zuleima Levine [...] MD LAB BLOOD ORDERABLES Lila dawson Result [facility] Department [place] [address] * (ABNORMAL) Differential, auto (09/01/2024 3:21 AM CDT) Neutrophil abs 3.01 1.50 - 6.50 K/cumm Imm gran abs 0.04 0.00 - 0.10 K/cumm [facility] Lymphocyte abs 0.35(L) 0.80 - 3.30 K/cumm [facility] Monocyte abs 0.67 0.20 - 0.80 K/cumm [facility] Eosinophil abs 0.06 0.00 - 0.50 K/cumm [facility] Basophil abs 0.01 0.00 - 0.10 K/cumm [facility] Neutrophil pct 72.7 % [facility] Comment: Interpretive Data Percent cell count reference ranges are not reported, since discordance with absolute values may lead to misinterpretation of CBC data. Current Interpretive Data was last revised on 2017. Imm gran pct 1.0 % [facility] Comment: Interpretive Data Percent cell count reference ranges are not reported, since discordance with absolute values may lead to misinterpretation of CBC data. Current Interpretive Data was last revised on 2017. Lymphocyte pct 8.5 % [facility] Comment: Interpretive Data Percent cell count reference ranges are not reported, since discordance with absolute values may lead to misinterpretation of CBC data. Current Interpretive Data was last revised on 2017. Monocyte pct 16.2 % [facility] Comment: Interpretive Data Percent cell count reference ranges are not reported, since discordance with absolute values may lead to misinterpretation of CBC data. Current Interpretive Data was last revised on 2017. Eosinophil pct 1.4 % [facility] Comment: Interpretive Data Percent cell count reference ranges are not reported, since discordance with absolute values may lead to misinterpretation of CBC data. Current Interpretive Data was last revised on 2017. Basophil pct 0.2 % [facility] Comment: Interpretive Data Percent cell count reference ranges are not reported, since discordance with absolute values may lead to misinterpretation of CBC data. Current Interpretive Data was last revised on 2017. Blood 09/01/2024 3:21 AM CDT 09/01/2024 3:38 AM CDT us Smith Sawyer MD LAB BLOOD ORDERABLES Lila l Result [facility] Department [place] [address] * (ABNORMAL) CBC with auto differential (09/01/2024 3:21 AM CDT) WBC 4.14 3.80 - 9.90 K/cumm Hgb 9.0(L) 13.0 - 17.5 g/dL [facility] Hct 26.2(L) 38.9 - 50.3 % [facility] Plt 86(L) 150 - 400 K/cumm [facility] MPV 11.2 9.1 - 12.3 fL [facility] RBC 2.45(L) 4.30 - 5.80 M/cumm [facility] MCV 106.9(H) 81.3 - 96.4 fL [facility] MCH 36.7(H) 27.1 - 33.3 pg [facility] MCHC 34.4 32.3 - 35.7 g/dL [facility] RDW CV 21.0(H) 11.1 - 14.9 % [facility] RDW SD 80.0(H) 35.7 - 48.1 fL [facility] NRBC abs 0.00 0.00 - 0.01 K/cumm [facility] Blood 09/01/2024 3:21 AM CDT 09/01/2024 3:38 AM CDT Smith Sawyer MD LAB BLOOD ORDERABLES Lila l Result Performing Organization Address City/[facility] [place] [address] * (ABNORMAL) Protime-INR (09/01/2024 3:21 AM CDT) PT 20.0(H) 9.7 - 13.0 sec INR 1.83(H) 0.90 - 1.20 [facility] Comment: Interpretive data Oral anticoagulant therapeutic ranges: Venous thromboembolism prophylaxis or treatment: 2.0-3.0 CARDIOLOGY Standard range: 2.0-3.0 High-intensity range: 2.5-3.5 Refer to indication-specific guidelines for appropriate target ranges for prosthetic heart valve replacement. Current interpretive data was last revised on 2019. Blood 09/01/2024 3:21 AM CDT 09/01/2024 3:36 AM CDT Zuleima eLvine MD LAB BLOOD ORDERABLES Lila l Result Performing Organization Address [facility] [place] [address] * Phosphorus (09/01/2024 3:21 AM CDT) Phosphorus, pl 2.8 2.3 - 4.5 mg/dL Blood 09/01/2024 3:21 AM CDT 09/01/2024 3:37 AM CDT Smith Sawyer MD LAB BLOOD ORDERABLES Lila l Result Performing Organization Address City/[facility] [place] [address] * Magnesium (09/01/2024 3:21 AM CDT) Magnesium 1.5 1.4 - 2.5 mg/dL Blood 09/01/2024 3:21 AM CDT 09/01/2024 3:37 AM CDT Zuleima Levine MD LAB BLOOD ORDERABLES Lila dawson Result [facility] Department [place] [address] * (ABNORMAL) Comprehensive metabolic panel (09/01/2024 3:21 AM CDT) Pathologist [facility] Sodium 143 135 - 145 mmol/L Potassium, pl 3.2(L) 3.3 - 4.9 mmol/L [facility] Chloride 108 97 - 110 mmol/L [facility] CO2 28 22 - 32 mmol/L [facility] Anion gap 7 2 - 15 mmol/L [facility] BUN 15 6 - 25 mg/dL [facility] Creatinine 0.95 0.80 - 1.30 mg/dL [facility] Glucose 123 70 - 199 mg/dL [facility] Comment: Interpretive Data Fasting glucose >/= 126 [...] 2022. Calcium 7.8(L) 8.5 - 10.3 mg/dL [facility] Bilirubin, total 0.6 0.1 - 1.2 mg/dL [facility] Protein, pl 4.7(L) 6.5 - 8.5 g/dL [facility] Albumin 2.3(L) 3.5 - 5.0 g/dL [facility] Alk phos 84 40 - 130 Units/L [facility] ALT 21 7 - 55 Units/L [facility] AST 44 10 - 50 Units/L [facility] Blood 09/01/2024 3:21 AM CDT 09/01/2024 3:37 AM CDT us Smith Sawyer MD LAB BLOOD ORDERABLES Lila dawson Result [facility] Department [place] [address] * XR Chest 1 View (08/31/2024 10:37 [...] Biopsy) 08/31/2024 11:47 AM CDT Narrative PATHOLOGY [facility] - 09/02/2024 10:06 AM CDT EPIC results best viewed via link to PDF [facility] [place] [address] Note to Patients: This report may contain [...] Gender: M : 1950 (Age: 74) Address: [address] [place] [address] Hospital #: [id number] Taken:08/31/2024 Received:08/31/2024 Reported: 09/02/2024 Patient Type: [facility] Inpatient Service: Oncology Location: [place] [address] Physician(s): MD Gilberto Melgar M.D. Shivani Shah [...] Yamil DA. 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 Am J Surg Pathol. 2022Feb 03;47(10):8034-7459. doi: 10.1097/[id number]. Epub 2022Nov 29. PMID: [id number]. Shahla Lam D.O. History: The patient is [...] 08/31/2024 18:01 PA(s): Sofia Conklin, MS, PA ([facility])CM By this signature, I attest that the above diagnosis is based upon my personal examination of the slides(and/or other material). Addenda/Procedures The performance characteristics of some immunohistochemical stains, fluorescence in-situ hybridization tests and immunophenotyping by flow cytometry cited in this report (if any) were determined by the Surgical Pathology and Flow Cytometry Departments at [facility] as part of an ongoing automotive quality manager program and in compliance with [...] Surgical Pathology and Flow Cytometry Departments of [facility]. It has not been cleared or approved by the U. S. Food and Drug Administration. IMAGES AND SCANNED DOCUMENTS, IF INCLUDED, ONLY VIEWABLE IN PDF VERSION OF REPORT Abram Smith MD LAB PATHOLOGY ORDERABLES Final Result PATHOLOGY [facility] 3rd Floor [place], [place] [phone] * Flexible Sigmoidoscopy (08/31/2024 11:26 AM CDT) Anatomical Region Laterality Modality Other Narrative Procedure Note Abram Smith MD - 08/31/2024 11:26 AM CDT [facility] Patient Name: Sulma Bazan Procedure Date: 08/31/2024 11:26 AM Date of : 1950 Admit Type: Inpatient Age: 74 Gender: Male Attending MD: Abram Smith M.D. Room: [facility] ENDOSCOPY Note Status: Finalized Procedure: Flexible Sigmoidoscopy [...] were discussed and informed consentwas obtained. The [id number] Endoscope was introduced through the anus [...] ORDERABLES Lila l Result Performing Organization Address City/[facility] Co de Phone Number [facility] Department [place] [address] * eGFR (08/31/2024 2:34 AM CDT) eGFR [...] ORDERABLES Lila l Result Performing Organization Address City/[facility]/ZIP Co de Phone Number [facility] Department [place] [address] * (ABNORMAL) Differential, auto (08/31/2024 2:34 AM CDT) Pathologist [facility] [place] Neutrophil abs 3.45 1.50 - 6.50 K/cumm Imm gran abs 0.05 0.00 - 0.10 K/cumm [facility] Lymphocyte abs 0.39(L) 0.80 - 3.30 K/cumm [facility] Monocyte abs 0.72 0.20 - 0.80 K/cumm [facility] Eosinophil abs 0.07 0.00 - 0.50 K/cumm [facility] Basophil abs 0.01 0.00 - 0.10 K/cumm [facility] Neutrophil pct 73.5 % [facility] Comment: Interpretive Data Percent cell count reference ranges are not reported, since discordance with absolute values may lead to misinterpretation of CBC data. Current Interpretive Data was last revised on 2017. Imm gran pct 1.1 % [facility] Comment: Interpretive Data Percent cell count reference ranges are not reported, since discordance with absolute values may lead to misinterpretation of CBC data. Current Interpretive Data was last revised on 2017. Lymphocyte pct 8.3 % [facility] Comment: Interpretive Data Percent cell count reference ranges are not reported, since discordance with absolute values may lead to misinterpretation of CBC data. Current Interpretive Data was last revised on 2017. Monocyte pct 15.4 % [facility] Comment: Interpretive Data Percent cell count reference ranges are not reported, since discordance with absolute values may lead to misinterpretation of CBC data. Current Interpretive Data was last revised on 2017. Eosinophil pct 1.5 % [facility] Comment: Interpretive Data Percent cell count reference ranges are not reported, since discordance with absolute values may lead to misinterpretation of CBC data. Current Interpretive Data was last revised on 2017. Basophil pct 0.2 % [facility] Comment: Interpretive Data Percent cell count reference ranges are not reported, since discordance with absolute values may lead to misinterpretation of CBC data. Current Interpretive Data was last revised on 2017. Blood 08/31/2024 2:34 AM CDT 08/31/2024 3:12 AM CDT us Smith Sawyer MD LAB BLOOD ORDERABLES Lila dawson Result [facility] Department [place] [address] * (ABNORMAL) CBC with auto differential (08/31/2024 2:34 AM CDT) Pathologist [facility] [place] WBC 4.69 3.80 - 9.90 K/cumm Hgb 8.9(L) 13.0 - 17.5 g/dL [facility] Hct 25.5(L) 38.9 - 50.3 % [facility] Plt 90(L) 150 - 400 K/cumm [facility] MPV 10.6 9.1 - 12.3 fL [facility] RBC 2.38(L) 4.30 - 5.80 M/cumm [facility] MCV 107.1(H) 81.3 - 96.4 fL [facility] MCH 37.4(H) 27.1 - 33.3 pg [facility] MCHC 34.9 32.3 - 35.7 g/dL [facility] RDW CV 21.1(H) 11.1 - 14.9 % [facility] RDW SD 79.6(H) 35.7 - 48.1 fL [facility] NRBC abs 0.00 0.00 - 0.01 K/cumm [facility] Blood 08/31/2024 2:34 AM CDT 08/31/2024 3:12 AM CDT us Smith Sawyer MD LAB BLOOD ORDERABLES Lila l Result [facility] Department [place] [address] * aPTT (08/31/2024 2:34 AM CDT) Pathologist [facility] [place] aPTT 30 28 - 38 sec Comment: Interpretive Data Heparin therapeutic range: 66.0 - 100.0 seconds. Range based on correlation with therapeutic heparin activity range of 0.3 - 0.7 Units/mL. Current interpretive data was last revised on 2023. Blood 08/31/2024 2:34 AM CDT 08/31/2024 3:04 AM CDT Smith Sawyer MD LAB BLOOD ORDERABLES Lila l Result Performing Organization Address [facility] Co de Phone Number [facility] [place] [address] * (ABNORMAL) Protime-INR (08/31/2024 2:34 AM CDT) PT 18.8(H) 9.7 - 13.0 sec INR 1.72(H) 0.90 - 1.20 [facility] Comment: Interpretive data Oral anticoagulant therapeutic [...] Performing Organization Address [facility] [place] [address] * Type and screen (08/31/2024 2:34 AM CDT) ABO Rh A Positive Minna, indirect Negative [facility] Blood 08/31/2024 2:34 AM CDT 08/31/2024 3:06 AM CDT Narrative [facility] - 08/31/2024 7:31 AM CDT Has the patient had Daratumumab or Isatuximab in the past 6 months?->Unknown Smith Sawyer MD LAB BLOOD BANK TEST ORDER DEMETRIO Final Result Performing Organization Address [facility] Co de Phone Number [facility] [place] [address] * Uric acid (08/31/2024 2:34 AM CDT) Pathologist [facility] [place] Uric acid 6.6 3.0 - 8.0 mg/dL Blood 08/31/2024 2:34 AM CDT 08/31/2024 3:12 AM CDT Narrative [facility] - 08/31/2024 3:42 AM CDT Saturday and only. Morning draw. . Smith Sawyer MD LAB BLOOD ORDERABLES Lila l Result Performing Organization Address City/State/[facility] Co de Phone Number [facility] [place] [address] * (ABNORMAL) Phosphorus (08/31/2024 2:34 AM CDT) [facility] Phosphorus, pl 1.9(L) 2.3 - 4.5 mg/dL Blood 08/31/2024 2:34 AM CDT 08/31/2024 3:12 AM CDT Smith Sawyer MD LAB BLOOD ORDERABLES Lila l Result Performing Organization Address [facility] Co de Phone Number [facility] [place] [address] * (ABNORMAL) Lactate dehydrogenase (LD) (08/31/2024 2:34 AM CDT) [facility] Lactate dehydrogenase (LDH) 301(H) 100 - 250 Units/L Blood 08/31/2024 2:34 AM CDT 08/31/2024 3:12 AM CDT Narrative [facility] - 08/31/2024 3:42 AM CDT Saturday and only. Morning draw. Smith Sawyer MD LAB BLOOD ORDERABLES Lila l Result Performing Organization Address City/[facility] Co de Phone Number [facility] [place] [address] * (ABNORMAL) Comprehensive metabolic panel (08/31/2024 2:34 AM CDT) Sodium 139 135 - 145 mmol/L Potassium, pl 3.2(L) 3.3 - 4.9 mmol/L [facility] Chloride 107 97 - 110 mmol/L [facility] CO2 25 22 - 32 mmol/L [facility] Anion gap 7 2 - 15 mmol/L [facility] BUN 20 6 - 25 mg/dL [facility] Creatinine 0.92 0.80 - 1.30 mg/dL [facility] Glucose 113 70 - 199 mg/dL [facility] Comment: Interpretive Data Fasting glucose >/= 126 [...] 2022. Calcium 8.0(L) 8.5 - 10.3 mg/dL [facility] Bilirubin, total 0.5 0.1 - 1.2 mg/dL [facility] Protein, pl 4.8(L) 6.5 - 8.5 g/dL [facility] Albumin 2.6(L) 3.5 - 5.0 g/dL [facility] Alk phos 82 40 - 130 Units/L [facility] ALT 23 7 - 55 Units/L [facility] AST 48 10 - 50 Units/L [facility] Blood 08/31/2024 2:34 AM CDT 08/31/2024 3:12 AM CDT us Smith Sawyer MD LAB BLOOD ORDERABLES Lila eunice Result [facility] Department [place] [address] * (ABNORMAL) Protime-INR (08/30/2024 4:30 AM CDT) PT 20.1(H) 9.7 - 13.0 sec INR 1.84(H) 0.90 - 1.20 [facility] Comment: Interpretive data Oral anticoagulant therapeutic ranges: Venous thromboembolism prophylaxis or treatment: 2.0-3.0 CARDIOLOGY Standard range: 2.0-3.0 High-intensity range: 2.5-3.5 Refer to indication-specific guidelines for appropriate target ranges for prosthetic heart valve replacement. Current interpretive data was last revised on 2019. Blood 08/30/2024 4:30 AM CDT 08/30/2024 2:53 AM CDT Zuleima Levine MD LAB BLOOD ORDERABLES Lila l Result [facility] Department [place] [address] * eGFR (08/30/2024 2:34 AM CDT) eGFR [...] MD LAB BLOOD ORDERABLES Lila dawson Result [facility] Department [place] [address] * (ABNORMAL) Differential, auto (08/30/2024 2:34 AM CDT) Pathologist [facility] [place] Neutrophil abs 3.58 1.50 - 6.50 K/cumm Imm gran abs 0.06 0.00 - 0.10 K/cumm [facility] Lymphocyte abs 0.20(L) 0.80 - 3.30 K/cumm [facility] Monocyte abs 0.72 0.20 - 0.80 K/cumm [facility] Eosinophil abs 0.08 0.00 - 0.50 K/cumm [facility] Basophil abs 0.01 0.00 - 0.10 K/cumm [facility] Neutrophil pct 77.0 % [facility] Comment: Interpretive Data Percent cell count reference ranges are not reported, since discordance with absolute values may lead to misinterpretation of CBC data. Current Interpretive Data was last revised on 2017. Imm gran pct 1.3 % [facility] Comment: Interpretive Data Percent cell count reference ranges are not reported, since discordance with absolute values may lead to misinterpretation of CBC data. Current Interpretive Data was last revised on 2017. Lymphocyte pct 4.3 % [facility] Comment: Interpretive Data Percent cell count reference ranges are not reported, since discordance with absolute values may lead to misinterpretation of CBC data. Current Interpretive Data was last revised on 2017. Monocyte pct 15.5 % [facility] Comment: Interpretive Data Percent cell count reference ranges are not reported, since discordance with absolute values may lead to misinterpretation of CBC data. Current Interpretive Data was last revised on 2017. Eosinophil pct 1.7 % [facility] Comment: Interpretive Data Percent cell count reference ranges are not reported, since discordance with absolute values may lead to misinterpretation of CBC data. Current Interpretive Data was last revised on 2017. Basophil pct 0.2 % [facility] Comment: Interpretive Data Percent cell count reference ranges are not reported, since discordance with absolute values may lead to misinterpretation of CBC data. Current Interpretive Data was last revised on 2017. Blood 08/30/2024 2:34 AM CDT 08/30/2024 2:56 AM CDT Smith Sawyer MD LAB BLOOD ORDERABLES Lila dawson Result [facility] Department [place] [address] * (ABNORMAL) CBC with auto differential (08/30/2024 2:34 AM CDT) WBC 4.65 3.80 - 9.90 K/cumm Hgb 8.5(L) 13.0 - 17.5 g/dL [facility] Hct 24.7(L) 38.9 - 50.3 % [facility] Plt 86(L) 150 - 400 K/cumm [facility] MPV 10.4 9.1 - 12.3 fL [facility] RBC 2.28(L) 4.30 - 5.80 M/cumm [facility] MCV 108.3(H) 81.3 - 96.4 fL [facility] MCH 37.3(H) 27.1 - 33.3 pg [facility] MCHC 34.4 32.3 - 35.7 g/dL [facility] RDW CV 21.0(H) 11.1 - 14.9 % [facility] RDW SD 81.8(H) 35.7 - 48.1 fL [facility] NRBC abs 0.02(H) 0.00 - 0.01 K/cumm [facility] Blood 08/30/2024 2:34 AM CDT 08/30/2024 2:56 AM CDT Smith Sawyer MD LAB BLOOD ORDERABLES Lila l Result Performing Organization Address City/[facility]/ZIP Co de Phone Number [facility] [place] [address] * Phosphorus (08/30/2024 2:34 AM CDT) [facility] Phosphorus, pl 2.7 2.3 - 4.5 mg/dL Blood 08/30/2024 2:34 AM CDT 08/30/2024 2:56 AM CDT Smith Sawyer MD LAB BLOOD ORDERABLES Lila l Result Performing Organization Address [facility] Co de Phone Number [facility] Department [place] [address] * Magnesium (08/30/2024 2:34 AM CDT) [facility] Magnesium 1.8 1.4 - 2.5 mg/dL Blood 08/30/2024 2:34 AM CDT 08/30/2024 2:56 AM CDT Zuleima Levine MD LAB BLOOD ORDERABLES Lila l Result Performing Organization Address [facility] Co de Phone Number [facility] [place] [address] * (ABNORMAL) Comprehensive metabolic panel (08/30/2024 2:34 AM CDT) [facility] Sodium 141 135 - 145 mmol/L Potassium, pl 3.4 3.3 - 4.9 mmol/L [facility] Chloride 109 97 - 110 mmol/L [facility] CO2 23 22 - 32 mmol/L [facility] Anion gap 9 2 - 15 mmol/L [facility] BUN 24 6 - 25 mg/dL [facility] Creatinine 1.00 0.80 - 1.30 mg/dL [facility] Glucose 105 70 - 199 mg/dL [facility] Comment: Interpretive Data Fasting glucose >/= 126 [...] Calcium 8.0(L) 8.5 - 10.3 mg/dL [facility] Bilirubin, total 0.4 0.1 - 1.2 mg/dL [facility] Protein, pl 4.8(L) 6.5 - 8.5 g/dL [facility] Albumin 3.1(L) 3.5 - 5.0 g/dL [facility] Alk phos 69 40 - 130 Units/L [facility] ALT 25 7 - 55 Units/L [facility] AST 47 10 - 50 Units/L [facility] Blood 08/30/2024 2:34 AM CDT 08/30/2024 2:56 AM CDT Smith Sawyer MD LAB BLOOD ORDERABLES Lila dawson Result [facility] Department [place] [address] * eGFR (08/29/2024 1:30 AM CDT) eGFR [...] MD LAB BLOOD ORDERABLES Lila dawson Result [facility] Department [place] [address] * (ABNORMAL) Differential, auto (08/29/2024 1:30 AM CDT) Neutrophil abs 3.07 1.50 - 6.50 K/cumm Imm gran abs 0.07 0.00 - 0.10 K/cumm [facility] Lymphocyte abs 0.29(L) 0.80 - 3.30 K/cumm [facility] Monocyte abs 0.91(H) 0.20 - 0.80 K/cumm [facility] Eosinophil abs 0.05 0.00 - 0.50 K/cumm [facility] Basophil abs 0.02 0.00 - 0.10 K/cumm [facility] Neutrophil pct 69.6 % [facility] Comment: Interpretive Data Percent cell count reference ranges are not reported, since discordance with absolute values may lead to misinterpretation of CBC data. Current Interpretive Data was last revised on 2017. Imm gran pct 1.6 % [facility] Comment: Interpretive Data Percent cell count reference ranges are not reported, since discordance with absolute values may lead to misinterpretation of CBC data. Current Interpretive Data was last revised on 2017. Lymphocyte pct 6.6 % [facility] Comment: Interpretive Data Percent cell count [...] revised on 2017. Eosinophil pct 1.1 % [facility] Comment: Interpretive Data Percent cell count reference ranges are not reported, since discordance with absolute values may lead to misinterpretation of CBC data. Current Interpretive Data was last revised on 2017. Basophil pct 0.5 % [facility] Comment: Interpretive Data Percent cell count reference ranges are not reported, since discordance with absolute values may lead to misinterpretation of CBC data. Current Interpretive Data was last revised on 2017. Blood 08/29/2024 1:30 AM CDT 08/29/2024 1:42 AM CDT Smith Sawyer MD LAB BLOOD ORDERABLES Lila dawson Result [facility] Department [place] [address] * (ABNORMAL) CBC with auto differential (08/29/2024 1:30 AM CDT) WBC 4.41 3.80 - 9.90 K/cumm Hgb 8.9(L) 13.0 - 17.5 g/dL [facility] Hct 26.7(L) 38.9 - 50.3 % [facility] Plt 112(L) 150 - 400 K/cumm [facility] MPV 10.4 9.1 - 12.3 fL [facility] RBC 2.45(L) 4.30 - 5.80 M/cumm [facility] MCV 109.0(H) 81.3 - 96.4 fL [facility] MCH 36.3(H) 27.1 - 33.3 pg [facility] MCHC 33.3 32.3 - 35.7 g/dL [facility] RDW CV 21.4(H) 11.1 - 14.9 % [facility] RDW SD 83.0(H) 35.7 - 48.1 fL [facility] NRBC abs 0.00 0.00 - 0.01 K/cumm [facility] Blood 08/29/2024 1:30 AM CDT 08/29/2024 1:42 AM CDT Smith Sawyer MD LAB BLOOD ORDERABLES Lila l Result Performing Organization Address [facility] de Phone Number [facility] Department [place] [address] * (ABNORMAL) Protime-INR (08/29/2024 1:30 AM CDT) PT 28.4(H) 9.7 - 13.0 sec INR 2.58(H) 0.90 - 1.20 [facility] Comment: Interpretive data Oral anticoagulant therapeutic [...] Performing Organization Address [facility] de Phone Number [facility] Department [place] [address] * Phosphorus (08/29/2024 1:30 AM CDT) Phosphorus, pl 2.4 2.3 - 4.5 mg/dL Blood 08/29/2024 1:30 AM CDT 08/29/2024 1:42 AM CDT Smith Sawyer MD LAB BLOOD ORDERABLES Lila l Result Performing Organization Address [facility]/ZIP Co de Phone Number [facility] Department [place] [address] * (ABNORMAL) Comprehensive metabolic panel (08/29/2024 1:30 AM CDT) Sodium 142 135 - 145 mmol/L Potassium, pl 3.8 3.3 - 4.9 mmol/L [facility] Chloride 110 97 - 110 mmol/L [facility] CO2 19(L) 22 - 32 mmol/L [facility] Anion gap 13 2 - 15 mmol/L [facility] BUN 28(H) 6 - 25 mg/dL [facility] Creatinine 1.10 0.80 - 1.30 mg/dL [facility] Glucose 108 70 - 199 mg/dL [facility] Comment: Interpretive Data Fasting glucose >/= 126 [...] 2022. Calcium 8.1(L) 8.5 - 10.3 mg/dL [facility] Bilirubin, total 0.5 0.1 - 1.2 mg/dL [facility] Protein, pl 5.3(L) 6.5 - 8.5 g/dL [facility] Albumin 3.3(L) 3.5 - 5.0 g/dL [facility] Alk phos 72 40 - 130 Units/L [facility] ALT 27 7 - 55 Units/L [facility] AST 53(H) 10 - 50 Units/L [facility] Blood 08/29/2024 1:30 AM CDT 08/29/2024 1:42 AM CDT us Smith Sawyer MD LAB BLOOD ORDERABLES Lila dawson Result [facility] [place] [address] * Transfuse plasma Standard plasma (08/28/2024 2:39 PM CDT) Blood Zuleima Levine MD BLOOD TRANSFUSION ORDERAB LES Edited Result - Final Performing Organization Address [facility] Co de Phone Number [facility] [place] [address] * (ABNORMAL) Protime-INR (08/28/2024 2:30 PM CDT) PT 24.1(H) 9.7 - 13.0 sec INR 2.20(H) 0.90 - 1.20 [facility] Comment: Interpretive data Oral anticoagulant therapeutic ranges: Venous thromboembolism prophylaxis or treatment: 2.0-3.0 CARDIOLOGY Standard range: 2.0-3.0 High-intensity range: 2.5-3.5 Refer to indication-specific guidelines for appropriate target ranges for prosthetic heart valve replacement. Current interpretive data was last revised on 2019. Blood 08/28/2024 2:30 PM CDT 08/28/2024 2:58 PM CDT Narrative [facility] - 08/28/2024 3:26 PM CDT 1 hour after transfusion of Plasma completed. Zuleima Levine MD LAB BLOOD ORDERABLES Lila l Result Performing Organization Address [facility] Co de Phone Number [facility] [place] [address] * Transfuse plasma Standard plasma (08/28/2024 12:29 PM CDT) Blood Zuleima Levine MD BLOOD TRANSFUSION ORDERAB LES Final Result Performing Organization Address City/[facility]/ZIP Co de Phone Number [facility] Department [place] [address] * Prepare plasma: 2 Units Standard plasma (08/28/2024 10:04 AM CDT) Product code [id number] Unit Number [id number] W [facility] Product Blood Type APOS [facility] Dispense Status PRESUMED TRANSFUSED [facility] Product code [id number] [facility] Unit Number [id number] K [facility] Product Blood Type APOS [facility] Dispense Status PRESUMED TRANSFUSED [facility] Blood Venous blood specimen / Unknown 08/28/2024 10:04 AM CDT 08/28/2024 10:04 AM CDT Narrative [facility] - 08/29/2024 12:40 PM CDT Is this plasma order intended for a COVID-19 patient as convalescent plasma?->Standard plasma Special Requirements Needed?->No Date required:-[id number] FFP # of Units:-2-Units Reasons:-Urgent invasive procedure, INR us Zuleima Levine MD BLOOD BANK PRODUCT ORDERA BLES Final Result Performing Organization Address City/[facility]/ZIP Co de Phone Number [facility] Department [place] [address] * Potassium, whole blood (08/28/2024 9:19 AM CDT) [facility] Potassium, bld 3.4 3.3 - 4.9 mmol/L Blood 08/28/2024 9:19 AM CDT 08/28/2024 9:28 AM CDT Zuleima Levine MD LAB BLOOD ORDERABLES Lila l Result [facility] [place] [address] * (ABNORMAL) Protime-INR (08/28/2024 9:19 AM CDT) PT 27.4(H) 9.7 - 13.0 sec INR 2.49(H) 0.90 - 1.20 [facility] Comment: Interpretive data Oral anticoagulant therapeutic [...] Performing Organization Address [facility] Co de Phone Number [facility] Department of Laboratories [place], [place] [id number] * Transfuse plasma Standard plasma (08/28/2024 8:41 AM CDT) Blood Zuleima Levine MD BLOOD TRANSFUSION ORDERAB LES Final Result Performing Organization Address [facility]/ZIP Co de Phone Number [facility] [place] [address] * Prepare plasma: 1 Units Standard plasma (08/28/2024 6:40 AM CDT) Pathologist [facility] [place] Product code [id number] Unit Number [id number] 1 [facility] Product Blood Type APOS [facility] Dispense Status PRESUMED TRANSFUSED [facility] Blood Venous blood specimen / Unknown 08/28/2024 6:40 AM CDT 08/28/2024 6:40 AM CDT Narrative [facility] - 08/28/2024 8:00 PM CDT Is this plasma order intended for a COVID-19 patient as convalescent plasma?->Standard plasma Special Requirements Needed?->No Date required:-[id number] FFP # of Units:-1-Units Reasons:-Urgent invasive procedure, INR Zuleima Levine MD BLOOD BANK PRODUCT ORDERA BLES Final Result Performing Organization Address City/[facility]/ZIP Co de Phone Number [facility] Department [place] [address] * (ABNORMAL) Protime-INR (08/28/2024 6:05 AM CDT) Pathologist [facility] [place] PT 28.5(H) 9.7 - 13.0 sec INR 2.59(H) 0.90 - 1.20 [facility] Comment: Interpretive data Oral anticoagulant therapeutic [...] Performing Organization Address [facility] Co de Phone Number [facility] Department [place] [address] * Prepare plasma: 1 Units Standard plasma (08/28/2024 2:12 AM CDT) Pathologist [facility] [place] Product code [id number] Unit Number [id number] [facility] Product Blood Type APOS [facility] Dispense Status PRESUMED TRANSFUSED [facility] Blood Venous blood specimen / Unknown 08/28/2024 2:12 AM CDT 08/28/2024 2:12 AM CDT Narrative [facility] - 08/28/2024 4:01 PM CDT Is this plasma order intended for a COVID-19 patient as convalescent plasma?->Standard plasma Special Requirements Needed?->No Date required:-[id number] FFP # of Units:-1-Units Reasons:-Urgent invasive procedure, INR Zuleima Levine MD BLOOD BANK PRODUCT ORDERA BLES Final Result Performing Organization Address [facility] Co de Phone Number [facility] Department [place] [address] * eGFR (08/28/2024 1:32 AM CDT) Pathologist [facility] [place] eGFR 78 >=60 mL/min/1. 73 m2 Comment: [...] Performing Organization Address [facility]/ZIP Co de Phone Number [facility] Department [place] [address] * (ABNORMAL) Differential, auto (08/28/2024 1:32 AM CDT) [facility] Neutrophil abs 1.95 1.50 - 6.50 K/cumm Imm gran abs 0.04 0.00 - 0.10 K/cumm [facility] Lymphocyte abs 0.19(L) 0.80 - 3.30 K/cumm [facility] Monocyte abs 0.67 0.20 - 0.80 K/cumm [facility] Eosinophil abs 0.14 0.00 - 0.50 K/cumm [facility] Basophil abs 0.00 0.00 - 0.10 K/cumm [facility] Neutrophil pct 65.2 % [facility] Comment: Interpretive Data Percent cell count reference ranges are not reported, since discordance with absolute values may lead to misinterpretation of CBC data. Current Interpretive Data was last revised on 2017. Imm gran pct 1.3 % [facility] Comment: Interpretive Data Percent cell count reference ranges are not reported, since discordance with absolute values may lead to misinterpretation of CBC data. Current Interpretive Data was last revised on 2017. Lymphocyte pct 6.4 % [facility] Comment: Interpretive Data Percent cell count reference ranges are not reported, since discordance with absolute values may lead to misinterpretation of CBC data. Current Interpretive Data was last revised on 2017. Monocyte pct 22.4 % [facility] Comment: Interpretive Data Percent cell count reference ranges are not reported, since discordance with absolute values may lead to misinterpretation of CBC data. Current Interpretive Data was last revised on 2017. Eosinophil pct 4.7 % [facility] Comment: Interpretive Data Percent cell count reference ranges are not reported, since discordance with absolute values may lead to misinterpretation of CBC data. Current Interpretive Data was last revised on 2017. Basophil pct 0.0 % [facility] Comment: Interpretive Data Percent cell count reference ranges are not reported, since discordance with absolute values may lead to misinterpretation of CBC data. Current Interpretive Data was last revised on 2017. Blood 08/28/2024 1:32 AM CDT 08/28/2024 1:48 AM CDT us Smith Sawyer MD LAB BLOOD ORDERABLES Lila dawson Result [facility] Department [place] [address] * (ABNORMAL) CBC with auto differential (08/28/2024 1:32 AM CDT) [facility] WBC 2.99(L) 3.80 - 9.90 K/cumm Hgb 8.7(L) 13.0 - 17.5 g/dL [facility] Hct 24.8(L) 38.9 - 50.3 % [facility] Plt 91(L) 150 - 400 K/cumm [facility] MPV 10.0 9.1 - 12.3 fL [facility] RBC 2.30(L) 4.30 - 5.80 M/cumm [facility] MCV 107.8(H) 81.3 - 96.4 fL [facility] MCH 37.8(H) 27.1 - 33.3 pg [facility] MCHC 35.1 32.3 - 35.7 g/dL [facility] RDW CV 21.1(H) 11.1 - 14.9 % [facility] RDW SD 79.5(H) 35.7 - 48.1 fL [facility] NRBC abs 0.02(H) 0.00 - 0.01 K/cumm [facility] Blood 08/28/2024 1:32 AM CDT 08/28/2024 1:48 AM CDT us Smith Sawyer MD LAB BLOOD ORDERABLES Lila dawson Result Performing Organization Address City/State/[facility] Co de Phone Number [facility] Department [place] [address] * (ABNORMAL) Protime-INR (08/28/2024 1:32 AM CDT) [facility] PT 32.7(H) 9.7 - 13.0 sec INR 2.96(H) 0.90 - 1.20 [facility] Comment: Interpretive data Oral anticoagulant therapeutic ranges: Venous thromboembolism prophylaxis or treatment: 2.0-3.0 CARDIOLOGY Standard range: 2.0-3.0 High-intensity range: 2.5-3.5 Refer to indication-specific guidelines for appropriate target ranges for prosthetic heart valve replacement. Current interpretive data was last revised on 2019. Blood 08/28/2024 1:32 AM CDT 08/28/2024 1:40 AM CDT Stewart Varghese MD LAB BLOOD ORDERABLES Lila l Result Performing Organization Address City/[facility]/ZIP Co de Phone Number [facility] Department [place] [address] * Phosphorus (08/28/2024 1:32 AM CDT) Pathologist [facility] [place] Phosphorus, pl 2.9 2.3 - 4.5 mg/dL Blood 08/28/2024 1:32 AM CDT 08/28/2024 1:48 AM CDT Smith Sawyer MD LAB BLOOD ORDERABLES Lila l Result Performing Organization Address [facility] Co de Phone Number [facility] [place] [address] * (ABNORMAL) Comprehensive metabolic panel (08/28/2024 1:32 AM CDT) Sodium 141 135 - 145 mmol/L Potassium, pl 3.0(L) 3.3 - 4.9 mmol/L [facility] Chloride 112(H) 97 - 110 mmol/L [facility] CO2 21(L) 22 - 32 mmol/L [facility] Anion gap 8 2 - 15 mmol/L [facility] BUN 26(H) 6 - 25 mg/dL [facility] Creatinine 1.01 0.80 - 1.30 mg/dL [facility] Glucose 88 70 - 199 mg/dL [facility] Comment: Interpretive Data Fasting glucose >/= 126 [...] Calcium 7.7(L) 8.5 - 10.3 mg/dL [facility] Bilirubin, total 0.5 0.1 - 1.2 mg/dL [facility] Protein, pl 4.4(L) 6.5 - 8.5 g/dL [facility] Albumin 2.7(L) 3.5 - 5.0 g/dL [facility] Alk phos 60 40 - 130 Units/L [facility] ALT 23 7 - 55 Units/L [facility] AST 39 10 - 50 Units/L [facility] Blood 08/28/2024 1:32 AM CDT 08/28/2024 1:48 AM CDT Smith Sawyer MD LAB BLOOD ORDERABLES Lila dawson Result [facility] Department [place] [address] * Rotavirus antigen Stool (08/27/2024 10:04 AM CDT) Pathologist [facility] [place] Rotavirus Ag Negative Negative Comment: Interpretative Data Testing performed at the [facility] using antigen detection with Xpect Rotavirus lateral flow assay. This test is cleared by the [place] Food and Drug Administration for fresh stool specimens. The performance characteristics have been verified by the [facility]. A negative result does not [...] Performing Organization Address [facility] Co de Phone Number [facility] Department [place] [address] * eGFR (08/27/2024 12:29 AM CDT) eGFR [...] ORDERABLES Lila l Result Performing Organization Address City/[facility]/ZIP Co de Phone Number [facility] Department [place] [address] * (ABNORMAL) Differential, auto (08/27/2024 12:29 AM CDT) Pathologist [facility] [place] Neutrophil abs 1.83 1.50 - 6.50 K/cumm Imm gran abs 0.04 0.00 - 0.10 K/cumm [facility] Lymphocyte abs 0.12(L) 0.80 - 3.30 K/cumm [facility] Monocyte abs 0.69 0.20 - 0.80 K/cumm [facility] Eosinophil abs 0.07 0.00 - 0.50 K/cumm [facility] Basophil abs 0.01 0.00 - 0.10 K/cumm [facility] Neutrophil pct 66.4 % [facility] Comment: Interpretive Data Percent cell count reference ranges are not reported, since discordance with absolute values may lead to misinterpretation of CBC data. Current Interpretive Data was last revised on 2017. Imm gran pct 1.4 % [facility] Comment: Interpretive Data Percent cell count reference ranges are not reported, since discordance with absolute values may lead to misinterpretation of CBC data. Current Interpretive Data was last revised on 2017. Lymphocyte pct 4.3 % [facility] Comment: Interpretive Data Percent cell count reference ranges are not reported, since discordance with absolute values may lead to misinterpretation of CBC data. Current Interpretive Data was last revised on 2017. Monocyte pct 25.0 % [facility] Comment: Interpretive Data Percent cell count reference ranges are not reported, since discordance with absolute values may lead to misinterpretation of CBC data. Current Interpretive Data was last revised on 2017. Eosinophil pct 2.5 % [facility] Comment: Interpretive Data Percent cell count reference ranges are not reported, since discordance with absolute values may lead to misinterpretation of CBC data. Current Interpretive Data was last revised on 2017. Basophil pct 0.4 % [facility] Comment: Interpretive Data Percent cell count reference ranges are not reported, since discordance with absolute values may lead to misinterpretation of CBC data. Current Interpretive Data was last revised on 2017. Blood 08/27/2024 12:2 9 AM CDT 08/27/2024 12:43 AM CDT us Smith Sawyer MD LAB BLOOD ORDERABLES Lila dawson Result [facility] Department [place] [address] * (ABNORMAL) CBC with auto differential (08/27/2024 12:29 AM CDT) [facility] WBC 2.76(L) 3.80 - 9.90 K/cumm Hgb 9.0(L) 13.0 - 17.5 g/dL [facility] Hct 25.4(L) 38.9 - 50.3 % [facility] Plt 112(L) 150 - 400 K/cumm [facility] MPV 10.0 9.1 - 12.3 fL [facility] RBC 2.41(L) 4.30 - 5.80 M/cumm [facility] MCV 105.4(H) 81.3 - 96.4 fL [facility] MCH 37.3(H) 27.1 - 33.3 pg [facility] MCHC 35.4 32.3 - 35.7 g/dL [facility] RDW CV 19.9(H) 11.1 - 14.9 % [facility] RDW SD 73.0(H) 35.7 - 48.1 fL [facility] NRBC abs 0.05(H) 0.00 - 0.01 K/cumm [facility] Blood 08/27/2024 12:2 9 AM CDT 08/27/2024 12:43 AM CDT Smith Sawyer MD LAB BLOOD ORDERABLES Llia dawson Result Performing Organization Address City/State/[facility] Co de Phone Number [facility] Department [place] [address] * (ABNORMAL) Protime-INR (08/27/2024 12:29 AM CDT) [facility] PT 27.0(H) 9.7 - 13.0 sec INR 2.45(H) 0.90 - 1.20 [facility] Comment: Interpretive data Oral anticoagulant therapeutic [...] Performing Organization Address [facility] Co de Phone Number [facility] [place] [address] * Type and screen (08/27/2024 12:29 AM CDT) ABO Rh A Positive Minna, indirect Negative [facility] Blood 08/27/2024 12:2 9 AM CDT 08/27/2024 12:46 AM CDT Narrative [facility] - 08/27/2024 2:10 AM CDT Has the patient had Daratumumab or Isatuximab in the past 6 months?->Unknown Smith Sawyer MD LAB BLOOD BANK TEST ORDER DEMETRIO Final Result Performing Organization Address [facility] de Phone Number [facility] [place] [address] * Uric acid (08/27/2024 12:29 AM CDT) Uric acid 6.9 3.0 - 8.0 mg/dL Blood 08/27/2024 12:2 9 AM CDT 08/27/2024 12:43 AM CDT Narrative [facility] - 08/27/2024 1:11 AM CDT Saturday and only. Morning draw. . Smith Sawyer MD LAB BLOOD ORDERABLES Lila l Result Performing Organization Address [facility] Co de Phone Number [facility] [place] [address] * (ABNORMAL) Phosphorus (08/27/2024 12:29 AM CDT) Phosphorus, pl 2.2(L) 2.3 - 4.5 mg/dL Blood 08/27/2024 12:2 9 AM CDT 08/27/2024 12:43 AM CDT Smith Sawyer MD LAB BLOOD ORDERABLES Lila l Result [facility] [place] [address] * Magnesium (08/27/2024 12:29 AM CDT) Pathologist [facility] [place] Magnesium 1.7 1.4 - 2.5 mg/dL Blood 08/27/2024 12:2 9 AM CDT 08/27/2024 12:43 AM CDT Result [facility] Zuleima Levine MD LAB BLOOD ORDERABLES Lila l Result Performing Organization Address [facility] Co de Phone Number [facility] [place] [address] * (ABNORMAL) Lactate dehydrogenase (LD) (08/27/2024 12:29 AM CDT) Pathologist [facility] [place] Lactate dehydrogenase (LDH) 296(H) 100 - 250 Units/L Blood 08/27/2024 12:2 9 AM CDT 08/27/2024 12:43 AM CDT Narrative [facility] - 08/27/2024 1:11 AM CDT Saturday and only. Morning draw. Smith Sawyer MD LAB BLOOD ORDERABLES Lila l Result Performing Organization Address [facility] Co de Phone Number [facility] [place] [address] * (ABNORMAL) Comprehensive metabolic panel (08/27/2024 12:29 AM CDT) Sodium 142 135 - 145 mmol/L Potassium, pl 3.4 3.3 - 4.9 mmol/L [facility] Chloride 112(H) 97 - 110 mmol/L [facility] CO2 19(L) 22 - 32 mmol/L [facility] Anion gap 11 2 - 15 mmol/L [facility] BUN 29(H) 6 - 25 mg/dL [facility] Creatinine 1.01 0.80 - 1.30 mg/dL [facility] Glucose 116 70 - 199 mg/dL [facility] Comment: Interpretive Data Fasting glucose >/= 126 [...] 2022. Calcium 7.8(L) 8.5 - 10.3 mg/dL [facility] Bilirubin, total 0.6 0.1 - 1.2 mg/dL [facility] Protein, pl 4.8(L) 6.5 - 8.5 g/dL [facility] Albumin 3.0(L) 3.5 - 5.0 g/dL [facility] Alk phos 68 40 - 130 Units/L [facility] ALT 20 7 - 55 Units/L [facility] AST 37 10 - 50 Units/L [facility] Blood 08/27/2024 12:2 9 AM CDT 08/27/2024 12:43 AM CDT us Smith Sawyer MD LAB BLOOD ORDERABLES Lila dawson Result [facility] Department [place] [address] * (ABNORMAL) Protime-INR (08/26/2024 5:32 PM CDT) PT 23.9(H) 9.7 - 13.0 sec INR 2.18(H) 0.90 - 1.20 [facility] Comment: Interpretive data Oral anticoagulant therapeutic ranges: Venous thromboembolism prophylaxis or treatment: 2.0-3.0 CARDIOLOGY Standard range: 2.0-3.0 High-intensity range: 2.5-3.5 Refer to indication-specific guidelines for appropriate target ranges for prosthetic heart valve replacement. Current interpretive data was last revised on 2019. Blood 08/26/2024 5:32 PM CDT 08/26/2024 5:54 PM CDT us Zuleima Levine MD LAB BLOOD ORDERABLES Lila dawson Result [facility] Department [place] [address] * eGFR (08/26/2024 2:08 AM CDT) eGFR [...] MD LAB BLOOD ORDERABLES Lila dawson Result [facility] [place] [address] * (ABNORMAL) Differential, auto (08/26/2024 2:08 AM CDT) Neutrophil abs 3.03 1.50 - 6.50 K/cumm Imm gran abs 0.06 0.00 - 0.10 K/cumm [facility] Lymphocyte abs 0.27(L) 0.80 - 3.30 K/cumm [facility] Monocyte abs 0.85(H) 0.20 - 0.80 K/cumm [facility] Eosinophil abs 0.13 0.00 - 0.50 K/cumm [facility] Basophil abs 0.01 0.00 - 0.10 K/cumm [facility] Neutrophil pct 69.7 % [facility] Comment: Interpretive Data Percent cell count reference ranges are not reported, since discordance with absolute values may lead to misinterpretation of CBC data. Current Interpretive Data was last revised on 2017. Imm gran pct 1.4 % [facility] Comment: Interpretive Data Percent cell count reference ranges are not reported, since discordance with absolute values may lead to misinterpretation of CBC data. Current Interpretive Data was last revised on 2017. Lymphocyte pct 6.2 % [facility] Comment: Interpretive Data Percent cell count reference ranges are not reported, since discordance with absolute values may lead to misinterpretation of CBC data. Current Interpretive Data was last revised on 2017. Monocyte pct 19.5 % [facility] Comment: Interpretive Data Percent cell count reference ranges are not reported, since discordance with absolute values may lead to misinterpretation of CBC data. Current Interpretive Data was last revised on 2017. Eosinophil pct 3.0 % [facility] Comment: Interpretive Data Percent cell count reference ranges are not reported, since discordance with absolute values may lead to misinterpretation of CBC data. Current Interpretive Data was last revised on 2017. Basophil pct 0.2 % [facility] Comment: Interpretive Data Percent cell count reference ranges are not reported, since discordance with absolute values may lead to misinterpretation of CBC data. Current Interpretive Data was last revised on 2017. Blood 08/26/2024 2:08 AM CDT 08/26/2024 2:24 AM CDT Smith Sawyer MD LAB BLOOD ORDERABLES Lila l Result Performing Organization Address City/[facility] Co de Phone Number [facility] Department [place] [address] * (ABNORMAL) CBC with auto differential (08/26/2024 2:08 AM CDT) WBC 4.35 3.80 - 9.90 K/cumm Hgb 9.3(L) 13.0 - 17.5 g/dL [facility] Hct 25.9(L) 38.9 - 50.3 % [facility] Plt 134(L) 150 - 400 K/cumm [facility] MPV 9.8 9.1 - 12.3 fL [facility] RBC 2.47(L) 4.30 - 5.80 M/cumm [facility] MCV 104.9(H) 81.3 - 96.4 fL [facility] MCH 37.7(H) 27.1 - 33.3 pg [facility] MCHC 35.9(H) 32.3 - 35.7 g/dL [facility] RDW CV 19.6(H) 11.1 - 14.9 % [facility] RDW SD 71.3(H) 35.7 - 48.1 fL [facility] NRBC abs 0.08(H) 0.00 - 0.01 K/cumm [facility] Blood 08/26/2024 2:08 AM CDT 08/26/2024 2:24 AM CDT Smith Sawyer MD LAB BLOOD ORDERABLES Lila l Result [facility] [place] [address] * (ABNORMAL) Protime-INR (08/26/2024 2:08 AM CDT) PT 18.4(H) 9.7 - 13.0 sec INR 1.69(H) 0.90 - 1.20 [facility] Comment: Interpretive data Oral anticoagulant therapeutic [...] Performing Organization Address [facility] Co de Phone Number [facility] [place] [address] * Phosphorus (08/26/2024 2:08 AM CDT) Pathologist [facility] [place] Phosphorus, pl 3.4 2.3 - 4.5 mg/dL Blood 08/26/2024 2:08 AM CDT 08/26/2024 2:24 AM CDT us Smith Sawyer MD LAB BLOOD ORDERABLES Lila l Result Performing Organization Address City/State/[facility] [place] [address] * Magnesium (08/26/2024 2:08 AM CDT) Pathologist [facility] [place] Magnesium 1.8 1.4 - 2.5 mg/dL Blood 08/26/2024 2:08 AM CDT 08/26/2024 2:24 AM CDT us Zuleima Levine MD LAB BLOOD ORDERABLES Lila dawson Result [facility] Department [place] [address] * (ABNORMAL) Comprehensive metabolic panel (08/26/2024 2:08 AM CDT) Sodium 140 135 - 145 mmol/L Potassium, pl 3.1(L) 3.3 - 4.9 mmol/L [facility] Chloride 109 97 - 110 mmol/L [facility] CO2 20(L) 22 - 32 mmol/L [facility] Anion gap 11 2 - 15 mmol/L [facility] BUN 36(H) 6 - 25 mg/dL [facility] Creatinine 1.18 0.80 - 1.30 mg/dL [facility] Glucose 107 70 - 199 mg/dL [facility] Comment: Interpretive Data Fasting glucose >/= 126 [...] 2022. Calcium 8.1(L) 8.5 - 10.3 mg/dL [facility] Bilirubin, total 0.7 0.1 - 1.2 mg/dL [facility] Protein, pl 5.1(L) 6.5 - 8.5 g/dL [facility] Albumin 3.1(L) 3.5 - 5.0 g/dL [facility] Alk phos 78 40 - 130 Units/L [facility] ALT 19 7 - 55 Units/L [facility] AST 33 10 - 50 Units/L [facility] Blood 08/26/2024 2:08 AM CDT 08/26/2024 2:24 AM CDT Smith Sawyer MD LAB BLOOD ORDERABLES Lila l Result Performing Organization Address City/[facility]/ZIP Co de Phone Number [facility] Department [place] [address] * eGFR (08/25/2024 2:06 AM CDT) Pathologist [facility] [place] eGFR 65 >=60 mL/min/1. 73 m2 Comment: [...] ORDERABLES Lila l Result Performing Organization Address City/[facility]/ZIP Co de Phone Number [facility] Department [place] [address] * (ABNORMAL) Differential, auto (08/25/2024 2:06 AM CDT) [facility] Neutrophil abs 2.52 1.50 - 6.50 K/cumm Imm gran abs 0.03 0.00 - 0.10 K/cumm [facility] Lymphocyte abs 0.26(L) 0.80 - 3.30 K/cumm [facility] Monocyte abs 0.72 0.20 - 0.80 K/cumm [facility] Eosinophil abs 0.06 0.00 - 0.50 K/cumm [facility] Basophil abs 0.00 0.00 - 0.10 K/cumm [facility] Neutrophil pct 70.2 % [facility] Comment: Interpretive Data Percent cell count reference ranges are not reported, since discordance with absolute values may lead to misinterpretation of CBC data. Current Interpretive Data was last revised on 2017. Imm gran pct 0.8 % [facility] Comment: Interpretive Data Percent cell count reference ranges are not reported, since discordance with absolute values may lead to misinterpretation of CBC data. Current Interpretive Data was last revised on 2017. Lymphocyte pct 7.2 % [facility] Comment: Interpretive Data Percent cell count reference ranges are not reported, since discordance with absolute values may lead to misinterpretation of CBC data. Current Interpretive Data was last revised on 2017. Monocyte pct 20.1 % [facility] Comment: Interpretive Data Percent cell count reference ranges are not reported, since discordance with absolute values may lead to misinterpretation of CBC data. Current Interpretive Data was last revised on 2017. Eosinophil pct 1.7 % [facility] Comment: Interpretive Data Percent cell count reference ranges are not reported, since discordance with absolute values may lead to misinterpretation of CBC data. Current Interpretive Data was last revised on 2017. Basophil pct 0.0 % [facility] Comment: Interpretive Data Percent cell count reference ranges are not reported, since discordance with absolute values may lead to misinterpretation of CBC data. Current Interpretive Data was last revised on 2017. Blood 08/25/2024 2:06 AM CDT 08/25/2024 2:27 AM CDT us Smith Sawyer MD LAB BLOOD ORDERABLES Lila dawson Result [facility] Department [place] [address] * (ABNORMAL) CBC with auto differential (08/25/2024 2:06 AM CDT) [facility] WBC 3.59(L) 3.80 - 9.90 K/cumm Hgb 9.4(L) 13.0 - 17.5 g/dL [facility] Hct 26.9(L) 38.9 - 50.3 % [facility] Plt 149(L) 150 - 400 K/cumm [facility] MPV 9.8 9.1 - 12.3 fL [facility] RBC 2.54(L) 4.30 - 5.80 M/cumm [facility] MCV 105.9(H) 81.3 - 96.4 fL [facility] MCH 37.0(H) 27.1 - 33.3 pg [facility] MCHC 34.9 32.3 - 35.7 g/dL [facility] RDW CV 19.0(H) 11.1 - 14.9 % [facility] RDW SD 66.2(H) 35.7 - 48.1 fL [facility] NRBC abs 0.04(H) 0.00 - 0.01 K/cumm [facility] Blood 08/25/2024 2:06 AM CDT 08/25/2024 2:27 AM CDT us Smith Sawyer MD LAB BLOOD ORDERABLES Lila l Result Performing Organization Address City/State/[facility] Co de Phone Number [facility] [place] [address] * (ABNORMAL) Protime-INR (08/25/2024 2:06 AM CDT) [facility] PT 14.6(H) 9.7 - 13.0 sec INR 1.34(H) 0.90 - 1.20 [facility] Comment: Interpretive data Oral anticoagulant therapeutic ranges: Venous thromboembolism prophylaxis or treatment: 2.0-3.0 CARDIOLOGY Standard range: 2.0-3.0 High-intensity range: 2.5-3.5 Refer to indication-specific guidelines for appropriate target ranges for prosthetic heart valve replacement. Current interpretive data was last revised on 2019. Blood 08/25/2024 2:06 AM CDT 08/25/2024 2:34 AM CDT Stewart Varghese MD LAB BLOOD ORDERABLES Lila l Result Performing Organization Address City/[facility]/ZIP Co de Phone Number [facility] Department [place] [address] * Phosphorus (08/25/2024 2:06 AM CDT) Pathologist [facility] [place] Phosphorus, pl 3.6 2.3 - 4.5 mg/dL Blood 08/25/2024 2:06 AM CDT 08/25/2024 2:26 AM CDT Smith Sawyer MD LAB BLOOD ORDERABLES Lila l Result Performing Organization Address [facility] Co de Phone Number [facility] [place] [address] * (ABNORMAL) Comprehensive metabolic panel (08/25/2024 2:06 AM CDT) Pathologist [facility] [place] Sodium 142 135 - 145 mmol/L Potassium, pl 3.4 3.3 - 4.9 mmol/L [facility] Chloride 111(H) 97 - 110 mmol/L [facility] CO2 21(L) 22 - 32 mmol/L [facility] Anion gap 10 2 - 15 mmol/L [facility] BUN 38(H) 6 - 25 mg/dL [facility] Creatinine 1.17 0.80 - 1.30 mg/dL [facility] Glucose 121 70 - 199 mg/dL [facility] Comment: Interpretive Data Fasting glucose >/= 126 [...] MD LAB BLOOD ORDERABLES Lila dawson Result [facility] Department [place] [address] * eGFR (08/24/2024 3:33 AM CDT) eGFR [...] MD LAB BLOOD ORDERABLES Lila dawson Result [facility] Department [place] [address] * (ABNORMAL) Differential, auto (08/24/2024 3:33 AM CDT) Neutrophil abs 2.28 1.50 - 6.50 K/cumm Imm gran abs 0.03 0.00 - 0.10 K/cumm [facility] Lymphocyte abs 0.30(L) 0.80 - 3.30 K/cumm [facility] Monocyte abs 0.76 0.20 - 0.80 K/cumm [facility] Eosinophil abs 0.02 0.00 - 0.50 K/cumm [facility] Basophil abs 0.01 0.00 - 0.10 K/cumm [facility] Neutrophil pct 67.0 % [facility] Comment: Interpretive Data Percent cell count reference ranges are not reported, since discordance with absolute values may lead to misinterpretation of CBC data. Current Interpretive Data was last revised on 2017. Imm gran pct 0.9 % [facility] Comment: Interpretive Data Percent cell count reference ranges are not reported, since discordance with absolute values may lead to misinterpretation of CBC data. Current Interpretive Data was last revised on 2017. Lymphocyte pct 8.8 % [facility] Comment: Interpretive Data Percent cell count reference ranges are not reported, since discordance with absolute values may lead to misinterpretation of CBC data. Current Interpretive Data was last revised on 2017. Monocyte pct 22.4 % [facility] Comment: Interpretive Data Percent cell count reference ranges are not reported, since discordance with absolute values may lead to misinterpretation of CBC data. Current Interpretive Data was last revised on 2017. Eosinophil pct 0.6 % [facility] Comment: Interpretive Data Percent cell count reference ranges are not reported, since discordance with absolute values may lead to misinterpretation of CBC data. Current Interpretive Data was last revised on 2017. Basophil pct 0.3 % [facility] Comment: Interpretive Data Percent cell count reference ranges are not reported, since discordance with absolute values may lead to misinterpretation of CBC data. Current Interpretive Data was last revised on 2017. Blood 08/24/2024 3:33 AM CDT 08/24/2024 4:14 AM CDT us Smith Sawyer MD LAB BLOOD ORDERABLES Lila dawson Result [facility] Department [place] [address] * (ABNORMAL) CBC with auto differential (08/24/2024 3:33 AM CDT) WBC 3.40(L) 3.80 - 9.90 K/cumm Hgb 9.4(L) 13.0 - 17.5 g/dL [facility] Hct 26.3(L) 38.9 - 50.3 % [facility] Plt 162 150 - 400 K/cumm [facility] MPV 9.5 9.1 - 12.3 fL [facility] RBC 2.52(L) 4.30 - 5.80 M/cumm [facility] MCV 104.4(H) 81.3 - 96.4 fL [facility] MCH 37.3(H) 27.1 - 33.3 pg [facility] MCHC 35.7 32.3 - 35.7 g/dL [facility] RDW CV 18.5(H) 11.1 - 14.9 % [facility] RDW SD 62.8(H) 35.7 - 48.1 fL [facility] NRBC abs 0.04(H) 0.00 - 0.01 K/cumm [facility] Blood 08/24/2024 3:33 AM CDT 08/24/2024 4:14 AM CDT Result [facility] Smith Sawyer MD LAB BLOOD ORDERABLES Lila l Result Performing Organization Address [facility] Co de Phone Number [facility] [place] [address] * aPTT (08/24/2024 3:33 AM CDT) aPTT 34 28 - 38 sec Comment: Interpretive Data Heparin therapeutic range: 66.0 - 100.0 seconds. Range based on correlation with therapeutic heparin activity range of 0.3 - 0.7 Units/mL. Current interpretive data was last revised on 2023. Blood 08/24/2024 3:33 AM CDT 08/24/2024 4:12 AM CDT Result [facility] Smith Sawyer MD LAB BLOOD ORDERABLES Lila l Result Performing Organization Address [facility] de Phone Number [facility] [place] [address] * (ABNORMAL) Protime-INR (08/24/2024 3:33 AM CDT) PT 17.8(H) 9.7 - 13.0 sec INR 1.63(H) 0.90 - 1.20 [facility] Comment: Interpretive data Oral anticoagulant therapeutic [...] Performing Organization Address [facility] Co de Phone Number [facility] [place] [address] * Type and screen (08/24/2024 3:33 AM CDT) ABO Rh A Positive Minna, indirect Negative [facility] Blood 08/24/2024 3:3 3 AM CDT 08/24/2024 3:48 AM CDT Narrative [facility] - 08/24/2024 4:35 AM CDT Has the patient had Daratumumab or Isatuximab in the past 6 months?->Unknown Smith Sawyer MD LAB BLOOD BANK TEST ORDER DEMETRIO Final Result Performing Organization Address [facility] [place] [address] * Uric acid (08/24/2024 3:33 AM CDT) Pathologist [facility] [place] Uric acid 7.6 3.0 - 8.0 mg/dL Blood 08/24/2024 3:33 AM CDT 08/24/2024 4:13 AM CDT Narrative [facility] - 08/24/2024 4:41 AM CDT Saturday and only. Morning draw. . Smith Sawyer MD LAB BLOOD ORDERABLES Lila l Result Performing Organization Address City/[facility]/ZIP Co de Phone Number [facility] [place] [address] * Phosphorus (08/24/2024 3:33 AM CDT) Phosphorus, pl 3.4 2.3 - 4.5 mg/dL Blood 08/24/2024 3:33 AM CDT 08/24/2024 4:13 AM CDT Smith Sawyer MD LAB BLOOD ORDERABLES Lila l Result Performing Organization Address City/[facility] Co de Phone Number [facility] Department [place] [address] * (ABNORMAL) Lactate dehydrogenase (LD) (08/24/2024 3:33 AM CDT) [facility] Lactate dehydrogenase (LDH) 302(H) 100 - 250 Units/L Blood 08/24/2024 3:33 AM CDT 08/24/2024 4:13 AM CDT Narrative [facility] - 08/24/2024 4:41 AM CDT Saturday and only. Morning draw. Smith Sawyer MD LAB BLOOD ORDERABLES Lila dawson Result [facility] Department [place] [address] * (ABNORMAL) Comprehensive metabolic panel (08/24/2024 3:33 AM CDT) [facility] Sodium 139 135 - 145 mmol/L Potassium, pl 3.4 3.3 - 4.9 mmol/L [facility] Chloride 108 97 - 110 mmol/L [facility] CO2 19(L) 22 - 32 mmol/L [facility] Anion gap 12 2 - 15 mmol/L [facility] BUN 39(H) 6 - 25 mg/dL [facility] Creatinine 1.21 0.80 - 1.30 mg/dL [facility] Glucose 113 70 - 199 mg/dL [facility] Comment: Interpretive Data Fasting glucose >/= 126 [...] 2022. Calcium 8.6 8.5 - 10.3 mg/dL [facility] Bilirubin, total 0.8 0.1 - 1.2 mg/dL [facility] Protein, pl 5.2(L) 6.5 - 8.5 g/dL [facility] Albumin 3.1(L) 3.5 - 5.0 g/dL [facility] Alk phos 75 40 - 130 Units/L [facility] ALT 15 7 - 55 Units/L [facility] AST 29 10 - 50 Units/L [facility] Blood 08/24/2024 3:33 AM CDT 08/24/2024 4:13 AM CDT Smith Sawyer MD LAB BLOOD ORDERABLES Lila l Result Performing Organization Address City/[facility] Co de Phone Number [facility] [place] [address] * Critical Result Callback Hematology (08/23/2024 8:31 AM CDT) Date Notified [id number] Time Notified 939 [facility] TestName INR [facility] Called/Read Back Trish Kwok [facility] Credentials RN [facility] Called By TP [facility] Blood 08/23/2024 8:31 AM CDT 08/23/2024 8:48 AM CDT Stewart Varghese MD LAB BLOOD ORDERABLES Lila l Result Performing Organization Address City/[facility]/ZIP Co de Phone Number [facility] [place] [address] * (ABNORMAL) aPTT (08/23/2024 8:31 AM CDT) [...] Performing Organization Address [facility] de Phone Number [facility] Department [place] [address] * (ABNORMAL) Thrombin time (08/23/2024 8:31 AM CDT) Thrombin time 15.3(H) 10.0 - 15.0 sec Blood 08/23/2024 8:31 AM CDT 08/23/2024 8:48 AM CDT Stewart Varghese MD LAB BLOOD ORDERABLES Lila l Result Performing Organization Address [facility] de Phone Number [facility] Department [place] [address] * (ABNORMAL) Protime-INR (08/23/2024 8:31 AM CDT) PT >100.0(H) 9.7 - 13.0 sec Comment: Verified No clot detected in sample. INR >9.00(C) 0.90 - 1.20 [facility] Comment: Verified No clot detected in sample. [...] Performing Organization Address [facility] de Phone Number [facility] Department [place] [address] * eGFR (08/23/2024 12:33 AM CDT) Pathologist [facility] [place] eGFR 62 >=60 mL/min/1. 73 m2 Comment: [...] MD LAB BLOOD ORDERABLES Lila dawson Result [facility] Department [place] [address] * (ABNORMAL) Differential, auto (08/23/2024 12:33 AM CDT) Pathologist [facility] [place] Neutrophil abs 3.43 1.50 - 6.50 K/cumm Imm gran abs 0.02 0.00 - 0.10 K/cumm [facility] Lymphocyte abs 0.19(L) 0.80 - 3.30 K/cumm [facility] Monocyte abs 0.78 0.20 - 0.80 K/cumm [facility] Eosinophil abs 0.00 0.00 - 0.50 K/cumm [facility] Basophil abs 0.00 0.00 - 0.10 K/cumm [facility] Neutrophil pct 77.6 % [facility] Comment: Interpretive Data Percent cell count reference ranges are not reported, since discordance with absolute values may lead to misinterpretation of CBC data. Current Interpretive Data was last revised on 2017. Imm gran pct 0.5 % [facility] Comment: Interpretive Data Percent cell count reference ranges are not reported, since discordance with absolute values may lead to misinterpretation of CBC data. Current Interpretive Data was last revised on 2017. Lymphocyte pct 4.3 % [facility] Comment: Interpretive Data Percent cell count reference ranges are not reported, since discordance with absolute values may lead to misinterpretation of CBC data. Current Interpretive Data was last revised on 2017. Monocyte pct 17.6 % [facility] Comment: Interpretive Data Percent cell count reference ranges are not reported, since discordance with absolute values may lead to misinterpretation of CBC data. Current Interpretive Data was last revised on 2017. Eosinophil pct 0.0 % [facility] Comment: Interpretive Data Percent cell count reference ranges are not reported, since discordance with absolute values may lead to misinterpretation of CBC data. Current Interpretive Data was last revised on 2017. Basophil pct 0.0 % [facility] Comment: Interpretive Data Percent cell count reference ranges are not reported, since discordance with absolute values may lead to misinterpretation of CBC data. Current Interpretive Data was last revised on 2017. Blood 08/23/2024 12:3 3 AM CDT 08/23/2024 12:55 AM CDT us Smith Sawyer MD LAB BLOOD ORDERABLES Lila dawson Result [facility] Department [place] [address] * (ABNORMAL) CBC with auto differential (08/23/2024 12:33 AM CDT) WBC 4.42 3.80 - 9.90 K/cumm Hgb 9.2(L) 13.0 - 17.5 g/dL [facility] Hct 25.8(L) 38.9 - 50.3 % [facility] Plt 183 150 - 400 K/cumm [facility] MPV 9.6 9.1 - 12.3 fL [facility] RBC 2.51(L) 4.30 - 5.80 M/cumm [facility] MCV 102.8(H) 81.3 - 96.4 fL [facility] MCH 36.7(H) 27.1 - 33.3 pg [facility] MCHC 35.7 32.3 - 35.7 g/dL [facility] RDW CV 18.0(H) 11.1 - 14.9 % [facility] RDW SD 61.4(H) 35.7 - 48.1 fL [facility] NRBC abs 0.04(H) 0.00 - 0.01 K/cumm [facility] Blood 08/23/2024 12:3 3 AM CDT 08/23/2024 12:55 AM CDT Smith Sawyer MD LAB BLOOD ORDERABLES Lila l Result Performing Organization Address City/[facility]/ZIP Co de Phone Number [facility] [place] [address] * Phosphorus (08/23/2024 12:33 AM CDT) Pathologist [facility] [place] Phosphorus, pl 3.3 2.3 - 4.5 mg/dL Blood 08/23/2024 12:3 3 AM CDT 08/23/2024 12:55 AM CDT Smith Sawyer MD LAB BLOOD ORDERABLES Lila l Result [facility] [place] [address] * (ABNORMAL) Comprehensive metabolic panel (08/23/2024 12:33 AM CDT) Sodium 139 135 - 145 mmol/L Potassium, pl 3.9 3.3 - 4.9 mmol/L [facility] Chloride 107 97 - 110 mmol/L [facility] CO2 21(L) 22 - 32 mmol/L [facility] Anion gap 11 2 - 15 mmol/L [facility] BUN 38(H) 6 - 25 mg/dL [facility] Creatinine 1.22 0.80 - 1.30 mg/dL [facility] Glucose 160 70 - 199 mg/dL [facility] Comment: Interpretive Data Fasting glucose >/= 126 [...] 2022. Calcium 8.8 8.5 - 10.3 mg/dL [facility] Bilirubin, total 0.7 0.1 - 1.2 mg/dL [facility] Protein, pl 5.5(L) 6.5 - 8.5 g/dL [facility] Albumin 3.6 3.5 - 5.0 g/dL [facility] Alk phos 77 40 - 130 Units/L [facility] ALT 17 7 - 55 Units/L [facility] AST 25 10 - 50 Units/L [facility] Blood 08/23/2024 12:3 3 AM CDT 08/23/2024 12:55 AM CDT us Smith Sawyer MD LAB BLOOD ORDERABLES Lila dawson Result [facility] [place] [address] * -Miscellaneous Molecular Send-Out Request (08/22/2024 3:01 PM CDT) Result 1 Test Name: Dihydropyrimidine Dehydrogenase Gene Full Sequencing (Lima) Specimen Type: PB Result: See attached scanned report for results. Test name Dihydropyrimidine Dehydrogenase Gene Full Sequencing (Lima) [facility] Miscellaneous 08/22/2024 3:0 1 PM CDT 08/27/2024 10:39 AM CDT Narrative [facility] - 09/02/2024 8:17 AM CDT Dihydropyrimidine Dehydrogenase Gene Full Sequencing (Lima) Miscellaneous Lab Test us Zuleima Levine MD LAB GENETIC TESTING Final Result [facility] Department [place] [address] * CT Chest Abdomen Pelvis W Contrast [...] ur Yellow Yellow Clarity, ur Clear Clear [facility] Specific gravity, ur 1.020 1.003 - 1.030 [facility] pH, urine 6.0 [facility] Comment: Interpretive Data U rine pH is affected by diet, medications, systemic acid-base disturbances, and renal tubular function. pH may affect urinary stone formation. For example, urine pH below 6.0 may help reduce the tendency for calcium phosphate stones and pH greater than 6.0 may reduce the tendency for uric acid stone formation. Source: [facility] [place] Current Interpretive Data was last revised on 2017 Protein, ur ql Negative Negative [facility] Glucose, ur ql Negative Negative [facility] Ketones, ur Negative Negative [facility] Bilirubin, ur Negative Negative [facility] Blood, ur Negative Negative [facility] Urobilinogen, ur <2.0 <2.0 mg/dL [facility] Nitrite, ur Negative Negative [facility] Leukocyte esterase, ur Trace(A) Negative [facility] UA reflex comment Reflex to microscopic UA will be performed. [facility] Urine 08/22/2024 6:20 AM CDT 08/22/2024 6:30 AM CDT Smith Sawyer MD LAB MICROBIOLOGY - GENERA L ORDERABLES Final Result [facility] Department [place] [address] * (ABNORMAL) Urinalysis, microscopic only (08/22/2024 6:20 AM CDT) WBC, ur 0-5 0 - 5 /HPF RBC, ur 0-2 0 - 2 /HPF [facility] Epithelial cells, squamous, ur 1-5 0 - 5 /HPF [facility] Mucous, ur Present(A) [facility] Amorphous crystals, ur Trace(A) [facility] Culture Reflex Comment Reflex conditions for urine culture (WBC >10) not met. [facility] Urine 08/22/2024 6:20 AM CDT 08/22/2024 6:30 AM CDT us Smith Sawyer MD LAB URINE ORDERABLES Lila l Result [facility] Department [place] [address] * (ABNORMAL) Differential, auto (08/22/2024 2:30 AM CDT) Neutrophil abs 4.00 1.50 - 6.50 K/cumm Imm gran abs 0.04 0.00 - 0.10 K/cumm [facility] Lymphocyte abs 0.13(L) 0.80 - 3.30 K/cumm [facility] Monocyte abs 0.21 0.20 - 0.80 K/cumm [facility] Eosinophil abs 0.01 0.00 - 0.50 K/cumm [facility] Basophil abs 0.01 0.00 - 0.10 K/cumm [facility] Neutrophil pct 90.9 % [facility] Comment: Interpretive Data Percent cell count reference ranges are not reported, since discordance with absolute values may lead to misinterpretation of CBC data. Current Interpretive Data was last revised on 2017. Imm gran pct 0.9 % [facility] Comment: Interpretive Data Percent cell count reference ranges are not reported, since discordance with absolute values may lead to misinterpretation of CBC data. Current Interpretive Data was last revised on 2017. Lymphocyte pct 3.0 % [facility] Comment: Interpretive Data Percent cell count reference ranges are not reported, since discordance with absolute values may lead to misinterpretation of CBC data. Current Interpretive Data was last revised on 2017. Monocyte pct 4.8 % [facility] Comment: Interpretive Data Percent cell count reference ranges are not reported, since discordance with absolute values may lead to misinterpretation of CBC data. Current Interpretive Data was last revised on 2017. Eosinophil pct 0.2 % [facility] Comment: Interpretive Data Percent cell count reference ranges are not reported, since discordance with absolute values may lead to misinterpretation of CBC data. Current Interpretive Data was last revised on 2017. Basophil pct 0.2 % [facility] Comment: Interpretive Data Percent cell count reference ranges are not reported, since discordance with absolute values may lead to misinterpretation of CBC data. Current Interpretive Data was last revised on 2017. Blood 08/22/2024 2:30 AM CDT 08/22/2024 12:54 AM CDT us Smith Sawyer MD LAB BLOOD ORDERABLES Lila dawson Result [facility] Department [place] [address] * (ABNORMAL) CBC with auto differential (08/22/2024 2:30 AM CDT) WBC 4.40 3.80 - 9.90 K/cumm Hgb 9.0(L) 13.0 - 17.5 g/dL [facility] Hct 25.0(L) 38.9 - 50.3 % [facility] Plt 168 150 - 400 K/cumm [facility] MPV 9.9 9.1 - 12.3 fL [facility] RBC 2.47(L) 4.30 - 5.80 M/cumm [facility] MCV 101.2(H) 81.3 - 96.4 fL [facility] MCH 36.4(H) 27.1 - 33.3 pg [facility] MCHC 36.0(H) 32.3 - 35.7 g/dL [facility] RDW CV 17.2(H) 11.1 - 14.9 % [facility] RDW SD 59.0(H) 35.7 - 48.1 fL [facility] NRBC abs 0.00 0.00 - 0.01 K/cumm [facility] Blood 08/22/2024 2:30 AM CDT 08/22/2024 12:54 AM CDT Smith Sawyer MD LAB BLOOD ORDERABLES Lila l Result Performing Organization Address City/[facility] Co de Phone Number [facility] Department [place] [address] * (ABNORMAL) eGFR (08/22/2024 12:28 AM CDT) [...] ORDERABLES Lila l Result [facility] Department [place] [address] * Critical Result Callback Hematology (08/22/2024 12:28 AM CDT) Date Notified [id number] Time Notified 132 [facility] TestName [facility]UP[facility] Called/Read Back Naren COREY Credentials RN [facility] Called By ELIZABETH COREY Blood 08/22/2024 12:2 8 AM CDT 08/22/2024 1:15 AM CDT Smith Sawyer MD LAB BLOOD ORDERABLES Lila l Result Performing Organization Address [facility] de Phone Number [facility] [place] [address] * Thyroid Function Tillman (08/22/2024 12:28 AM CDT) TSH 0.53 0.30 - 4.20 mcIUnit/mL Blood 08/22/2024 12:2 8 AM CDT 08/22/2024 12:55 AM CDT Smith Sawyer MD LAB BLOOD ORDERABLES Lila l Result Performing Organization Address [facility] de Phone Number [facility] [place] [address] * (ABNORMAL) aPTT (08/22/2024 12:28 AM CDT) [...] Performing Organization Address [facility] [place] [address] * (ABNORMAL) Protime-INR (08/22/2024 12:28 AM CDT) PT 98.6(H) 9.7 - 13.0 sec INR 8.73(C) 0.90 - 1.20 [facility] Comment: REVIEWED Interpretive data Oral anticoagulant therapeutic [...] ORDERABLES Lila l Result Performing Organization Address City/[facility]/ZIP Co de Phone Number [facility] Department [place] [address] * Type and screen (08/22/2024 12:28 AM CDT) Minna, indirect Negative ABO Rh A Positive [facility] Blood 08/22/2024 12:2 8 AM CDT 08/22/2024 1:00 AM CDT Narrative [facility] - 08/22/2024 2:10 AM CDT Has the patient had Daratumumab or Isatuximab in the past 6 months?->Unknown Smith Sawyer MD LAB BLOOD BANK TEST ORDER DEMETRIO Final Result Performing Organization Address City/[facility]/ZIP Co de Phone Number [facility] Department [place] [address] * (ABNORMAL) Uric acid (08/22/2024 12:28 AM CDT) Uric acid 8.4(H) 3.0 - 8.0 mg/dL Blood 08/22/2024 12:2 8 AM CDT 08/22/2024 12:55 AM CDT Narrative [facility] - 08/22/2024 1:31 AM CDT Wilber and only. Morning draw. . Smith Sawyer MD LAB BLOOD ORDERABLES Lila l Result Performing Organization Address [facility] Co de Phone Number [facility] [place] [address] * Phosphorus (08/22/2024 12:28 AM CDT) Phosphorus, pl 2.8 2.3 - 4.5 mg/dL Blood 08/22/2024 12:2 8 AM CDT 08/22/2024 12:55 AM CDT Smith Sawyer MD LAB BLOOD ORDERABLES Lila l Result Performing Organization Address [facility] de Phone Number [facility] [place] [address] * (ABNORMAL) Lactate dehydrogenase (LD) (08/22/2024 12:28 AM CDT) Lactate dehydrogenase (LDH) 301(H) 100 - 250 Units/L Blood 08/22/2024 12:2 8 AM CDT 08/22/2024 12:55 AM CDT Narrative [facility] - 08/22/2024 1:31 AM CDT Saturday and only. Morning draw. Smith Sawyer MD LAB BLOOD ORDERABLES Lila l Result Performing Organization Address [facility] Co de Phone Number [facility] [place] [address] * Vitamin B12 (08/22/2024 12:28 AM CDT) Vitamin B12 760 230 - 1,250 pg/mL Blood 08/22/2024 12:2 8 AM CDT 08/22/2024 12:55 AM CDT Smith Sawyer MD LAB BLOOD ORDERABLES Lila dawson Result [facility] [facility] [place] [address] * (ABNORMAL) Comprehensive metabolic panel (08/22/2024 12:28 AM CDT) Sodium 138 135 - 145 mmol/L Potassium, pl 3.5 3.3 - 4.9 mmol/L [facility] Chloride 104 97 - 110 mmol/L [facility] CO2 23 22 - 32 mmol/L [facility] Anion gap 11 2 - 15 mmol/L [facility] BUN 40(H) 6 - 25 mg/dL [facility] Creatinine 1.29 0.80 - 1.30 mg/dL [facility] Glucose 154 70 - 199 mg/dL [facility] Comment: Interpretive Data Fasting glucose >/= 126 [...] 2022. Calcium 8.2(L) 8.5 - 10.3 mg/dL [facility] Bilirubin, total 0.9 0.1 - 1.2 mg/dL [facility] Protein, pl 5.3(L) 6.5 - 8.5 g/dL [facility] Albumin 3.3(L) 3.5 - 5.0 g/dL [facility] Alk phos 76 40 - 130 Units/L [facility] ALT 15 7 - 55 Units/L [facility] AST 29 10 - 50 Units/L [facility] Blood 08/22/2024 12:2 8 AM CDT 08/22/2024 12:55 AM CDT Smith Sawyer MD LAB BLOOD ORDERABLES Lila l Result Performing Organization Address [facility] [place] [address] * C. difficile testing Stool (08/21/2024 9:37 PM CDT) [facility] Result Negative Negative Toxin Result Negative Negative [facility] C. diff result Negative, free toxin Negative, free toxin [facility] C. diff interp Negative for toxigenic Clostridioides (Clostridium) difficile. Analysis was performed using a glutamate dehydrogenase antigen detection assay combined with a C. difficile toxin detection assay. [facility] Stool 08/21/2024 9:37 PM CDT 08/22/2024 1:47 AM CDT Smith Sawyer MD LAB MICROBIOLOGY - GENERA L ORDERABLES Final Result Performing Organization Address [facility] de Phone Number [facility] [place] [address] * Cytomegalovirus (CMV) DNA PCR, quantitative Blood (08/21/2024 9:37 PM CDT) [facility] CMV DNA Not Detected [facility] Comment: Interpretive Data: The quantifiable range of this assay is 34 IUnits/mL to 10,000,000 IUnits/mL (1.53 log IUnits/mL to 7.0 log IUnits/mL). Testing was performed by the ELIO 6800 CMV Test ([employer] Testing performed at [facility]. Current interpretive data was last revised on 2020. Blood 08/21/2024 9:37 PM CDT 08/21/2024 10:18 PM CDT Smith Sawyer MD LAB MICROBIOLOGY - GENERA L ORDERABLES Final Result Performing Organization Address [facility] Co de Phone Number [facility] [place] [address] [facility] * Norovirus PCR Stool (08/21/2024 9:37 PM CDT) Norovirus GI RNA Not Detected Not Detected [facility] Norovirus GII RNA Not Detected Not Detected [facility] Comment: Interpretive data: Testing performed at the [facility] using the Setgo Xpert Norovirus Assay. This assay uses nucleic [...] MICROBIOLOGY - GENERA L ORDERABLES Final Result [facility] Department [place] [address] [facility] * Cryptosporidium and Giardia antigen assay Stool (08/21/2024 9:37 PM CDT) Giardia Ag Negative Negative Cryptosporidium Ag Negative Negative [facility] Comment: Interpretive data: Testing performed by the [facility] Microbiology Laboratory using an immunoassay that detects Cryptosporidium and Giardia antigens in stool specimens. If comprehensive examination for ova and parasites is required, please request Ova and Parasite Examination. Stool 08/21/2024 9:37 PM CDT 08/22/2024 1:47 AM CDT us Smith Sawyer MD LAB MICROBIOLOGY - GENERA [place] [address] * Infection Prevention VRE Culture Stool (08/21/2024 9:37 PM CDT) Report Final Report: Negative Stool 08/21/2024 9:37 PM CDT 08/22/2024 6:17 AM CDT Narrative [facility] - 08/24/2024 7:43 AM CDT Surveillance culture for Infection Prevention purposes only; results indicate colonization, not infection requiring treatment. Testing performed by [facility] ([phone]). us Gorge Vaughan MD PhD LAB MICROBIOLOGY - G ENERAL ORDERABLES Final Result Performing Organization Address [facility] Co de Phone Number [facility] Department [place] [address] * Stool culture Stool Rectum (08/21/2024 9:37 PM CDT) Direct Specimen Exam Shiga Toxin Testing: Antigen detection assay for Shiga-toxin NEGATIVE for Shiga Toxin 1 and Shiga Toxin 2. Report Final Report: No growth of enteric bacterial pathogens [facility] Stool (Rectum) 08/21/2024 9: 37 PM CDT 08/22/2024 1:47 AM CDT Narrative [facility] - 08/26/2024 2:52 PM CDT Specimen received in a sterile container. Testing performed by [facility] ([phone]). Routine stool cultures include procedures to detect Salmonella, Shigella, Edwardsiella, Aeromonas, Pleisiomonas, Campylobacter, Yersinia, E. coli O157, and Shiga-like toxins. Vibrio is cultured only upon special request. If Vibrio is suspected, please call the laboratory at [phone]. Interpretive data was last updated September 10, 2016. us Smith Sawyer MD LAB MICROBIOLOGY - GENERA L ORDERABLES Final Result [facility] Department [place] [address] * XR Chest 1 View (08/21/2024 4:43 [...] signed by: Chu Villanueva M.D. Lisa Tejeda COKE CRANE OPERATOR IMG XR PROCEDURES Final R esult * (ABNORMAL) Respiratory pathogen panel Nasopharyngeal (08/21/2024 4:08 PM CDT) Influenza A RNA Not Detected Not Detected Influenza B RNA Not Detected Not Detected [facility] RSV RNA Not Detected Not Detected [facility] COVID-19 RNA Not Detected Not Detected [facility] Coronavirus 229E RNA Not Detected Not Detected [facility] Coronavirus HKU1 RNA Detected(A) Not Detected [facility] Coronavirus NL63 RNA Not Detected Not Detected [facility] Coronavirus OC43 RNA Not Detected Not Detected [facility] Adenovirus DNA Not Detected Not Detected [facility] Metapneumovirus RNA Not Detected Not Detected [facility] Rhinovirus/Enterov irus RNA Not Detected Not Detected [facility] Parainfluenza 1 RNA Not Detected Not Detected [facility] Parainfluenza 2 RNA Not Detected Not Detected [facility] Parainfluenza 3 RNA Not Detected Not Detected [facility] Parainfluenza 4 RNA Not Detected Not Detected [facility] B. pertussis DNA Not Detected Not Detected [facility] B. parapertussis DNA Not Detected Not Detected [facility] C. pneumoniae DNA Not Detected Not Detected [facility] M. pneumoniae DNA Not Detected Not Detected [facility] Nasopharyngeal 08/21/2024 4: 08 PM CDT 08/21/2024 4:50 PM CDT Narrative [facility] - 08/21/2024 5:58 PM CDT Is the Patient experiencing symptoms consistent with COVID?->Yes Surveillance testing for transplant patient?->No Interpretive Data The Emergent Views FilmArray Respiratory Panel (RP2.1) assay is a [...] assay has FDA clearance for testing of COKE CRANE OPERATOR swabs. The performance of additional specimen types has been assessed by the performing laboratory. The performance characteristics of this assay have been determined by [facility] Molecular Infectious Disease Laboratory. Current interpretive data was last revised on 22. Lisa Tejeda COKE CRANE OPERATOR LAB MICROBIOLOGY - GENERA L ORDERABLES Final Result [facility] Department [place] [address] * (ABNORMAL) eGFR (08/21/2024 3:52 PM CDT) [...] NP LAB BLOOD ORDERABLES Lila eunice Result [facility] Department [place] [address] * (ABNORMAL) Differential, auto (08/21/2024 3:52 PM CDT) Neutrophil abs 4.28 1.50 - 6.50 K/cumm Imm gran abs 0.03 0.00 - 0.10 K/cumm [facility] Lymphocyte abs 0.27(L) 0.80 - 3.30 K/cumm [facility] Monocyte abs 0.58 0.20 - 0.80 K/cumm [facility] Eosinophil abs 0.03 0.00 - 0.50 K/cumm [facility] Basophil abs 0.01 0.00 - 0.10 K/cumm [facility] Neutrophil pct 82.2 % [facility] Comment: Interpretive Data Percent cell count reference ranges are not reported, since discordance with absolute values may lead to misinterpretation of CBC data. Current Interpretive Data was last revised on 2017. Imm gran pct 0.6 % [facility] Comment: Interpretive Data Percent cell count reference ranges are not reported, since discordance with absolute values may lead to misinterpretation of CBC data. Current Interpretive Data was last revised on 2017. Lymphocyte pct 5.2 % [facility] Comment: Interpretive Data Percent cell count reference ranges are not reported, since discordance with absolute values may lead to misinterpretation of CBC data. Current Interpretive Data was last revised on 2017. Monocyte pct 11.2 % [facility] Comment: Interpretive Data Percent cell count reference ranges are not reported, since discordance with absolute values may lead to misinterpretation of CBC data. Current Interpretive Data was last revised on 2017. Eosinophil pct 0.6 % [facility] Comment: Interpretive Data Percent cell count reference ranges are not reported, since discordance with absolute values may lead to misinterpretation of CBC data. Current Interpretive Data was last revised on 2017. Basophil pct 0.2 % [facility] Comment: Interpretive Data Percent cell count reference ranges are not reported, since discordance with absolute values may lead to misinterpretation of CBC data. Current Interpretive Data was last revised on 2017. Blood 08/21/2024 3:52 PM CDT 08/21/2024 4:16 PM CDT Lisa Tejeda NP LAB BLOOD ORDERABLES Lila dawson Result [facility] Department [place] [address] * (ABNORMAL) CBC with auto differential (08/21/2024 3:52 PM CDT) WBC 5.20 3.80 - 9.90 K/cumm Hgb 9.7(L) 13.0 - 17.5 g/dL [facility] Hct 26.7(L) 38.9 - 50.3 % [facility] Plt 204 150 - 400 K/cumm [facility] MPV 9.9 9.1 - 12.3 fL [facility] RBC 2.67(L) 4.30 - 5.80 M/cumm [facility] MCV 100.0(H) 81.3 - 96.4 fL [facility] MCH 36.3(H) 27.1 - 33.3 pg [facility] MCHC 36.3(H) 32.3 - 35.7 g/dL [facility] RDW CV 17.3(H) 11.1 - 14.9 % [facility] RDW SD 58.5(H) 35.7 - 48.1 fL [facility] NRBC abs 0.00 0.00 - 0.01 K/cumm [facility] Blood 08/21/2024 3:52 PM CDT 08/21/2024 4:16 PM CDT us Lisa Tejeda COKE CRANE OPERATOR LAB BLOOD ORDERABLES Lila l Result Performing Organization Address City/[facility]/ZIP Co de Phone Number [facility] Department [place] [address] * CRP (acute phase) (08/21/2024 3:52 PM CDT) Pathologist [facility] CRP 3.7 <=10.0 mg/L Blood 08/21/2024 3:52 PM CDT 08/21/2024 4:16 PM CDT Gorge Vaughan MD PhD LAB BLOOD ORDERABLES Final Result Performing Organization Address [facility] de Phone Number [facility] Department [place] [address] * (ABNORMAL) Comprehensive metabolic panel (08/21/2024 3:52 PM CDT) [facility] Sodium 136 135 - 145 mmol/L Potassium, pl 3.3 3.3 - 4.9 mmol/L [facility] Chloride 100 97 - 110 mmol/L [facility] CO2 25 22 - 32 mmol/L [facility] Anion gap 11 2 - 15 mmol/L [facility] BUN 40(H) 6 - 25 mg/dL [facility] Creatinine 1.37(H) 0.80 - 1.30 mg/dL [facility] Glucose 123 70 - 199 mg/dL [facility] Comment: Interpretive Data Fasting glucose >/= 126 [...] 2022. Calcium 8.8 8.5 - 10.3 mg/dL [facility] Bilirubin, total 1.1 0.1 - 1.2 mg/dL [facility] Protein, pl 5.7(L) 6.5 - 8.5 g/dL [facility] Albumin 3.9 3.5 - 5.0 g/dL [facility] Alk phos 88 40 - 130 Units/[facility] ALT 16 7 - 55 Units/L [facility] AST 26 10 - 50 Units/L [facility] Blood 08/21/2024 3:52 PM CDT 08/21/2024 4:16 PM CDT us Lisa Tejeda COKE CRANE OPERATOR LAB BLOOD ORDERABLES Lila l Result Performing Organization Address City/[facility]/ZIP Co de Phone Number [facility] Department [place] [address] * POC Blood Gas and Chemistries, Arterial - (08/21/2024 3:50 PM CDT) Lactate POC 2.0 0.7 - 2.0 mmol/L Blood 08/21/2024 3:50 PM CDT 08/21/2024 3:50 PM CDT us Gorge Vaughan MD PhD LAB POCT ORDERABLES - DEVICE Final Result [facility] [place] [address] * Critical Result Callback Hematology (08/21/2024 3:45 PM CDT) Date Notified [id number] Time Notified [id number] [facility] TestName INR STAN COREY Called/Read Back Luis COREY Credentials RN STAN COREY Called By PD [facility] Blood 08/21/2024 3:45 PM CDT 08/21/2024 4:06 PM CDT Lisa Tejeda NP LAB BLOOD ORDERABLES Lila l Result Performing Organization Address City/[facility]/ZIP Co de Phone Number [facility] Department [place] [address] * Blood culture Blood Peripheral (08/21/2024 3:45 PM CDT) Report Final Report: No growth Blood (Peripheral) 08/21/2024 3:45 PM CDT 08/21/2024 4:33 PM CDT Narrative [facility] - 08/26/2024 7:00 AM CDT 1. [...] performance characteristics have been verified by the [facility]. For questions about this culture, contact the Microbiology Laboratory at [phone]. Interpretive data was last revised on 24. Lisa Tejeda NP LAB MICROBIOLOGY - GENERA L ORDERABLES Final Result Performing Organization Address [facility]/ZIP Co de Phone Number [facility] Department [place] [address] * Blood culture Blood Peripheral (08/21/2024 3:45 [...] performance characteristics have been verified by the [facility]. For questions about this culture, contact the Microbiology Laboratory at [phone]. Interpretive data was last revised on 24. Lisa Tejeda NP LAB MICROBIOLOGY - GENERA L ORDERABLES Final Result [facility] Department [place] [address] * (ABNORMAL) aPTT (08/21/2024 3:45 PM CDT) [...] Performing Organization Address [facility] Co de Phone Number [facility] [place] [address] * (ABNORMAL) Thrombin time (08/21/2024 3:45 PM CDT) Thrombin time 15.2(H) 10.0 - 15.0 sec Blood 08/21/2024 3:45 PM CDT 08/21/2024 4:06 PM CDT Lisa Tejeda NP LAB BLOOD ORDERABLES Lila l Result Performing Organization Address [facility] de Phone Number [facility] [place] [address] * (ABNORMAL) Protime-INR (08/21/2024 3:45 PM CDT) PT >100.0(H) 9.7 - 13.0 sec INR >9.00(C) 0.90 - 1.20 [facility] Comment: No clot detected in sample. Verified by reflex testing. Interpretive data Oral anticoagulant therapeutic ranges: Venous thromboembolism prophylaxis or treatment: 2.0-3.0 CARDIOLOGY Standard range: 2.0-3.0 High-intensity range: 2.5-3.5 Refer to indication-specific guidelines for appropriate target ranges for prosthetic heart valve replacement. Current interpretive data was last revised on 2019. Blood 08/21/2024 3:45 PM CDT 08/21/2024 4:06 PM CDT Lisa J. Erckmann COKE CRANE OPERATOR LAB BLOOD ORDERABLES Lila l Result Performing Organization Address City/[facility]/ZIP Co de Phone Number [facility] Department [place] [address] * Urinalysis reflex to microscopic (08/20/2024 1:27 AM CDT) Color, ur Straw Yellow Clarity, ur Clear Clear [facility] Specific gravity, ur 1.022 1.003 - 1.030 [facility] pH, urine 6.0 [facility] Comment: Interpretive Data U rine pH is affected by diet, medications, systemic acid-base disturbances, and renal tubular function. pH may affect urinary stone formation. For example, urine pH below 6.0 may help reduce the tendency for calcium phosphate stones and pH greater than 6.0 may reduce the tendency for uric acid stone formation. Source: [facility] [place] Current Interpretive Data was last revised on 2017 Protein, ur ql Negative Negative [facility] Glucose, ur ql Negative Negative [facility] Ketones, ur Negative Negative [facility] Bilirubin, ur Negative Negative [facility] Blood, ur Negative Negative [facility] Urobilinogen, ur <2.0 <2.0 mg/dL [facility] Nitrite, ur Negative Negative [facility] Leukocyte esterase, ur Negative Negative [facility] UA reflex comment Reflex conditions for microscopic UA not met. [facility] Urine 08/20/2024 1:27 AM CDT 08/20/2024 1:48 AM CDT Leela Sandhu COKE CRANE OPERATOR LAB URINE ORDERABLES Lila l Result Performing Organization Address City/[facility]/ZIP Co de Phone Number [facility] Department [place] [address] * Urine culture Urine, clean voided (08/20/2024 1:27 AM CDT) Report Final Report: No growth Urine, clean voided 08/20/2024 1:27 AM CDT 08/20/2024 11:58 AM CDT Narrative [facility] - 08/21/2024 1:10 PM CDT Indications for Culture:->Other (specify) Other Indication:->immunocompromised Testing performed by [facility] Laboratory ([phone]) us Leela Sandhu NP LAB MICROBIOLOGY - GENERA L ORDERABLES Final Result Performing Organization Address [facility] Co de Phone Number [facility] Department [place] [address] * (ABNORMAL) POC Blood Gas and Chemistries, Arterial - (08/19/2024 9:48 PM CDT) [facility] Lactate POC 2.1(H) 0.7 - 2.0 mmol/L Blood 08/19/2024 9:48 PM CDT 08/19/2024 9:48 PM CDT us Gilberto Martinez MD LAB POCT ORDERABLES - DEVICE Final Result Performing Organization Address [facility] Co de Phone Number [facility] Department [place] [address] * ECG 12 lead (08/19/2024 9:34 PM CDT) Pathologist [facility] Ventricular Rate EKG/Min 60 BPM [facility] Atrial Rate 60 BPM [facility] DE-Interval (MSEC) 210 ms [facility] QRS-Interval (MSEC) 98 ms [facility] QT-Interval (MSEC) 462 ms [facility] QTc 462 ms [facility] P [place] 15 degrees [facility] R [place] -29 degrees [facility] T [place] 155 degrees [facility] Diagnosis Atrial-paced rhythm with prolonged AV conduction ST & T wave abnormality, consider lateral ischemia Abnormal ECG When compared with ECG of 08-JUN-2024 07:48, No significant change was found Confirmed by RL BHATT M.D ([id number]) on 08/20/2024 5:01:40 PM [facility] 08/19/2024 9:34 PM CDT 08/20/2024 5:01 PM CDT us Leela Sandhu COKE CRANE OPERATOR ECG ORDERABLES Final Res ult Performing Organization Address City/[facility]/ZIP Co de Phone Number [facility] [...] ORDERABLES Lila l Result Performing Organization Address City/[facility]/ZIP Co de Phone Number [facility] [place] [address] * (ABNORMAL) Differential, auto (08/19/2024 9:03 PM CDT) Neutrophil abs 6.02 1.50 - 6.50 K/cumm Imm gran abs 0.04 0.00 - 0.10 K/cumm [facility] Lymphocyte abs 0.23(L) 0.80 - 3.30 K/cumm [facility] Monocyte abs 0.48 0.20 - 0.80 K/cumm [facility] Eosinophil abs 0.01 0.00 - 0.50 K/cumm [facility] Basophil abs 0.00 0.00 - 0.10 K/cumm [facility] Neutrophil pct 88.8 % [facility] Comment: Interpretive Data Percent cell count reference ranges are not reported, since discordance with absolute values may lead to misinterpretation of CBC data. Current Interpretive Data was last revised on 2017. Imm gran pct 0.6 % [facility] Comment: Interpretive Data Percent cell count reference ranges are not reported, since discordance with absolute values may lead to misinterpretation of CBC data. Current Interpretive Data was last revised on 2017. Lymphocyte pct 3.4 % [facility] Comment: Interpretive Data Percent cell count reference ranges are not reported, since discordance with absolute values may lead to misinterpretation of CBC data. Current Interpretive Data was last revised on 2017. Monocyte pct 7.1 % [facility] Comment: Interpretive Data Percent cell count reference ranges are not reported, since discordance with absolute values may lead to misinterpretation of CBC data. Current Interpretive Data was last revised on 2017. Eosinophil pct 0.1 % [facility] Comment: Interpretive Data Percent cell count reference ranges are not reported, since discordance with absolute values may lead to misinterpretation of CBC data. Current Interpretive Data was last revised on 2017. Basophil pct 0.0 % [facility] Comment: Interpretive Data Percent cell count reference ranges are not reported, since discordance with absolute values may lead to misinterpretation of CBC data. Current Interpretive Data was last revised on 2017. Blood 08/19/2024 9:03 PM CDT 08/19/2024 9:56 PM CDT us Leela Sandhu COKE CRANE OPERATOR LAB BLOOD ORDERABLES Lila dawson Result [facility] Department [place] [address] * Respiratory pathogen panel Nasopharyngeal (08/19/2024 9:03 PM CDT) Influenza A RNA Not Detected Not Detected Influenza B RNA Not Detected Not Detected [facility] RSV RNA Not Detected Not Detected [facility] COVID-19 RNA Not Detected Not Detected [facility] Coronavirus 229E RNA Not Detected Not Detected [facility] Coronavirus HKU1 RNA Not Detected Not Detected [facility] Coronavirus NL63 RNA Not Detected Not Detected [facility] Coronavirus OC43 RNA Not Detected Not Detected [facility] Adenovirus DNA Not Detected Not Detected [facility] Metapneumovirus RNA Not Detected Not Detected [facility] Rhinovirus/Enterov irus RNA Not Detected Not Detected [facility] Parainfluenza 1 RNA Not Detected Not Detected [facility] Parainfluenza 2 RNA Not Detected Not Detected [facility] Parainfluenza 3 RNA Not Detected Not Detected [facility] Parainfluenza 4 RNA Not Detected Not Detected [facility] B. pertussis DNA Not Detected Not Detected [facility] B. parapertussis DNA Not Detected Not Detected [facility] C. pneumoniae DNA Not Detected Not Detected [facility] M. pneumoniae DNA Not Detected Not Detected [facility] Nasopharyngeal 08/19/2024 9: 03 PM CDT 08/19/2024 10:21 PM CDT Narrative [facility] - 08/19/2024 11:23 PM CDT Is the Patient experiencing symptoms consistent with COVID?->No Surveillance testing for transplant patient?->No Interpretive Data The Emergent Views FilmArray Respiratory Panel (RP2.1) assay is a [...] assay has FDA clearance for testing of COKE CRANE OPERATOR swabs. The performance of additional specimen types has been assessed by the performing laboratory. The performance characteristics of this assay have been determined by [facility] [facility]. Current interpretive data was last revised on 22. us Leela Sandhu COKE CRANE OPERATOR LAB MICROBIOLOGY - GENERA L ORDERABLES Final Result [facility] Department [place] [address] * (ABNORMAL) CBC with auto differential (08/19/2024 9:03 PM CDT) [facility] Signature WBC 6.78 3.80 - 9.90 K/cumm Hgb 10.2(L) 13.0 - 17.5 g/dL [facility] Hct 28.4(L) 38.9 - 50.3 % [facility] Plt 193 150 - 400 K/cumm [facility] MPV 10.1 9.1 - 12.3 fL [facility] RBC 2.78(L) 4.30 - 5.80 M/cumm [facility] MCV 102.2(H) 81.3 - 96.4 fL [facility] MCH 36.7(H) 27.1 - 33.3 pg [facility] MCHC 35.9(H) 32.3 - 35.7 g/dL [facility] RDW CV 17.2(H) 11.1 - 14.9 % [facility] RDW SD 59.2(H) 35.7 - 48.1 fL [facility] NRBC abs 0.00 0.00 - 0.01 K/cumm [facility] Blood 08/19/2024 9:03 PM CDT 08/19/2024 9:56 PM CDT Leela Sandhu NP LAB BLOOD ORDERABLES Lila l Result Performing Organization Address [facility] de Phone Number [facility] Department [place] [address] * Phosphorus (08/19/2024 9:03 PM CDT) Phosphorus, pl 3.1 2.3 - 4.5 mg/dL Blood 08/19/2024 9:03 PM CDT 08/19/2024 9:56 PM CDT Gilberto Martinez MD LAB BLOOD ORDERABLES Final Re sult Performing Organization Address [facility] de Phone Number [facility] [place] [address] * Magnesium (08/19/2024 9:03 PM CDT) Magnesium 1.8 1.4 - 2.5 mg/dL Blood 08/19/2024 9:03 PM CDT 08/19/2024 9:56 PM CDT Gilberto Martinez MD LAB BLOOD ORDERABLES Final Re sult Performing Organization Address [facility] Co de Phone Number [facility] [place] [address] * Lipase (08/19/2024 9:03 PM CDT) [facility] Lipase 42 10 - 99 Units/L Blood 08/19/2024 9:03 PM CDT 08/19/2024 9:56 PM CDT us Leela Sandhu COKE CRANE OPERATOR LAB BLOOD ORDERABLES Lila l Result Performing Organization Address [facility] [place] [address] * (ABNORMAL) Lactate dehydrogenase (LD) (08/19/2024 9:03 PM CDT) [facility] Lactate dehydrogenase (LDH) 434(H) 100 - 250 Units/L Blood 08/19/2024 9:03 PM CDT 08/19/2024 9:56 PM CDT us Leela Sandhu COKE CRANE OPERATOR LAB BLOOD ORDERABLES Lila l Result Performing Organization Address [facility] de Phone Number [facility] [place] [address] * Amylase (08/19/2024 9:03 PM CDT) [facility] Amylase 92 30 - 99 Units/L Blood 08/19/2024 9:03 PM CDT 08/19/2024 9:56 PM CDT us Leela Sandhu COKE CRANE OPERATOR LAB BLOOD ORDERABLES Lila l Result Performing Organization Address [facility] Co de Phone Number [facility] [place] [address] * (ABNORMAL) Comprehensive metabolic panel (08/19/2024 9:03 PM CDT) Sodium 133(L) 135 - 145 mmol/L Potassium, pl 3.9 3.3 - 4.9 mmol/L [facility] Chloride 97 97 - 110 mmol/L [facility] CO2 24 22 - 32 mmol/L [facility] Anion gap 12 2 - 15 mmol/L [facility] BUN 44(H) 6 - 25 mg/dL [facility] Creatinine 1.17 0.80 - 1.30 mg/dL [facility] Glucose 139 70 - 199 mg/dL [facility] Comment: Interpretive Data Fasting glucose >/= 126 [...] 2022. Calcium 8.9 8.5 - 10.3 mg/dL [facility] Bilirubin, total 1.2 0.1 - 1.2 mg/dL [facility] Protein, pl 6.2(L) 6.5 - 8.5 g/dL [facility] Albumin 3.8 3.5 - 5.0 g/dL [facility] Alk phos 91 40 - 130 Units/L [facility] ALT 21 7 - 55 Units/L [facility] AST 32 10 - 50 Units/L [facility] Blood 08/19/2024 9:03 PM CDT 08/19/2024 9:56 PM CDT us Leela Sandhu COKE CRANE OPERATOR LAB BLOOD ORDERABLES Lila dawson Result [facility] [place] [address] * DEVICE CHECK - REMOTE (08/17/2024 10:56 [...] to JC Episodes last 90 days/Comments: AF [place] <1 %, longest duration 1 minute 54 [...] Protime-INR (08/17/2024 10:34 AM CDT) INR 2.8(H) [facility] Comment: Reference Range 0.9-1.1 Moderate-intensity Warfarin Therapy 2.0-3.0 Higher-intensity Warfarin Therapy 3.0-4.0 PT 27.6(H) 9.0 - 11.5 sec [email or web address] Comment: For additional information, please refer to http://education.Vopium/faq/LJO085 (This link is being provided for informational/ educational purposes only.) Blood 08/17/2024 10:3 4 AM CDT 08/17/2024 10:34 AM CDT Narrative [facility] - 08/17/2024 6:58 PM CDT FASTING:NO FASTING: NO us Chris Hart MD LAB BLOOD ORDERABLES Final Result Performing Organization Address [facility] Co de Phone Number [facility] [address] [place] [address] * [place] ERCP Biliary Duct (08/07/2024 3:03 PM CDT) Narrative [email or web address] - 08/07/2024 3:03 PM CDT The images from this study are not interpreted by Radiology. Please refer to the physician's procedure / OR operative note. us Chris Holcomb MD IMG FLUOROSCOPY PROCEDURES Final Result Performing Organization Address [facility] Co de Phone Number [email or web address] * ERCP [...] Two biliary stents were visible on the technology consultant film. The esophagus was successfully intubated under [...] * (ABNORMAL) Hemoglobin A1c (06/22/2024 2:10 PM ACUTE CARE NURSE) HbA1c 7.9(H) 5.1 - 5.6 % [facility] Comment: HBA1C 5.1 - 5.6 = NORMAL HBA1C 5.7 - 6.4 = PREDIABETES HBA1C >=6.5 = PROVISIONAL DIAGNOSIS OF DIABETES Estimated Average Glucose 180 mg/dL [facility] Blood 06/22/2024 2:10 PM ACUTE CARE NURSE 06/22/2024 3:15 PM ACUTE CARE NURSE Result [facility] Lex Perez MD LAB BLOOD ORDERABLES Final Resu lt Performing Organization Address City/State/[facility] Co de Phone Number [facility] * Hepatitis C antibody Blood (06/08/2024 7:28 AM ACUTE CARE NURSE) Hep C Ab Nonreactive Nonreactive Comment:Antibodies to HCV no t detected. Does NOT exclude the possibility of recent exposure to HCV. Current interpretive data was last revised on 22 Blood 06/08/2024 7:28 AM ACUTE CARE NURSE 06/08/2024 8:06 AM ACUTE CARE NURSE Narrative [facility] - 06/08/2024 8:55 AM ACUTE CARE NURSE Please add the following comment to each lab: This lab is being obtained as part of a liver transplant evaluation, is time sensitive, and should only be drawn during the evaluation visit at [facility]C Lab. Katie Reeder MD LAB MICROBIOLOGY - GENERAL ORDER DEMETRIO Final Result [facility] Department [place] [address] * (ABNORMAL) Lipid panel (06/08/2024 7:28 AM ACUTE CARE NURSE) Cholesterol 176 30 - 199 mg/dL Comment: [...] on 2017. Triglycerides 266(H) <=149 mg/dL [facility] Comment: Interpretive Data Ages < or [...] revised on 2017. HDL 70 >=40 mg/dL [facility] Comment: Interpretive Data Ages < or [...] on 2017. LDL, calculated 64 <=129 mg/dL [facility] Comment: Interpretive Data Ages < or [...] revised on 2023. Non-HDL Cholesterol 106 mg/dL [facility] Comment: Interpretive Data Ages < or [...] last revised on 2017. Chol/HDL ratio 3 [facility] Blood 06/08/2024 7:28 AM ACUTE CARE NURSE 06/08/2024 8:07 AM ACUTE CARE NURSE Narrative [facility] - 06/08/2024 8:54 AM ACUTE CARE NURSE This lab is being obtained as part of a liver transplant evaluation, is time sensitive, and should only be drawn during the evaluation visit at [facility]CAM Lab. 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 [id number] [place] [address] Consulting Physician Colon and Rectal Surgery 12/26/21 Chris Hart MD [address] [facility] [address] [place] [address] Molder Meat Cardiology 03/17/24 Charlee Mcmillan RMA Surgical Prehabilitation and Readiness (SPAR) Coordinator 06/11/24 Agustina Li MD PhD [address] [place] [address] Medical Oncologist/Metal Buildings Assembler Medical Oncology 09/09/24
--- OUTSIDE RECORDS SUMMARY | 2024-11-06 00:23 | XMS_ITS | Encounter Summary ---
Author Organization [facility] Healthcare Address [address] [place] [address] Care Team Providers Care Debate Director Name Role Phone Gilberto Martinez MD Primary Care Provider [phone] Rossi BLACK MD, Zane Morataya Unavailable [phone] Raudel Childers MD Unavailable Chris Hart MD Unavailable [phone] Charlee Mcmillan Unavailable Unavailable Agustina Li MD PhD Unavailable [phone] Encounter Details Date Type Department Care Team (Late st Contact Info) Description 11/05/2024 Telephone [facility] Trans[facility] Liver [address] [address] [phone] [place] [address] Jennifer Gamboa Social History Tobacco [...] doctor or pharmacy Never 11/05/2024 [facility] Utilities Answer Date Recorded [...] How often do you attend chur or holiness services? More than 4 times per year 10/19/2024 Do you belong to any clubs o r organizations such as synagogue groups, unions, fraternal or athletic groups, or [...] Date Recorded PHQ-2 Total Score 0 10/19/2024 [facility] of Occupat ional [facility] - Occupational Stress Questionnaire Answer Date [...] time in the past 12 m [facility], were you homeless or living in a intermediate (including now)? No 10/19/2024 Personal Safety Answer Date Recorded Have you ever been in or are you currently in a harmful physical or emotional relationship or is someone making you feel afraid or unsafe? 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) documented as of this encounter Visit Diagnoses Not on filedocumented in this encounter Care Teams Debate Director Relationship Specialty Start Date End Date Gilberto Martinez MD [address] [place] [address] PCP - General 07/11/16 Zane Richey III, MD [address] [place] [address] Consulting Physician Cardiology 05/18/21 Raudel Childers MD [address] [facility] [id number] [place] [address] Consulting Physician Colon and Rectal Surgery 12/26/21 Chris Hart MD [address] [facility] [address] [place] [address] Director Of Career Services Cardiology 03/17/24 Charlee Mcmillan RMA Surgical Prehabilitation and Readiness (SPAR) Coordinator 06/11/24 Agustina Li MD PhD [address] [place] [address] Medical Oncologist/Senior Marketing Coordinator Medical Oncology 09/09/24 documented as of this encounter
--- OUTSIDE RECORDS SUMMARY | 2024-11-06 00:23 | XMS_ITS | Encounter Summary ---
Author Organization [facility] Address [address] [facility] [address] [place] [address] Phone Care Team Providers Care Associate Media Planner Name Role Phone Gilberto Martinez MD Primary Care Provider Rossi BLACK MD, Zane Morataya Unavailable [phone] Raudel Childers MD Unavailable Chris Hart MD Unavailable [phone] Charlee Mcmillan Unavailable Unavailable Agustina Li MD PhD Unavailable [phone] Encounter Details Date Type Department Care Team (Late st Contact Info) Description 11/05/2024 Surgical Prehabilita tion and Readiness Subsequent Outreach [facility] Department of Surgery [address] [place] [address] Serge August [facility] Social History Tobacco Use Types Packs/Day Years [...] materials from doctor or pharmacy Never 11/05/2024 [facility] Utilities Answer Date Recorded In [...] week 10/19/2024 How often do you attend [facility] or [facility] services? More than 4 times per year [...] Date Recorded PHQ-2 Total Score 0 10/19/2024 [facility] of Occupat ional Health - Occupational Stress [...] any time in the past 12 m [facility], were you homeless or living in a nursing home (including now)? No 10/19/2024 Personal Safety Answer Date Recorded Have you ever been in or are you currently in a harmful physical or emotional relationship or is someone making you feel afraid or unsafe? 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 [address] [place] [address] PCP - General 07/11/16 Zane Richey III, MD [address] [facility] [address] [place] [address] Consulting Physician Cardiology 05/18/21 Raudel Childers MD [address] [facility] [id number] [place] [address] Consulting Physician Colon and Rectal Surgery 12/26/21 Chris Hart MD [address] [facility] [address] [place] [address] Soda Column Operator Cardiology 03/17/24 Charlee Mcmillan RMA Surgical Prehabilitation and Readiness (SPAR) Coordinator 06/11/24 Agustina Li MD PhD [address] [facility] [address] [place] [address] Medical Oncologist/Teachers' Aide Medical Oncology 09/09/24 documented as of this encounter
--- OUTSIDE RECORDS SUMMARY | 2024-11-06 00:23 | XMS_ITS | Encounter Summary ---
Author Organization [facility] Healthcare Address [address] [place] [address] Care Team Providers Care Study Coordinator Name Role Phone Gilberto Martinez MD Primary Care Provider Rossi BLACK MD, Zane Morataya Unavailable [phone] Raudel Childers MD Unavailable Chris Hart MD Unavailable [phone] Charlee Mcmillan Unavailable Unavailable Agustina Li MD PhD Unavailable [phone] Reason for Visit * Auth/Cert (Routine) Specialty Diagnoses / Procedures Referred By Herminia t Referred To Contact Referral ID Status Reason Start Date Expiration Date Visits Re quested Visits Authorized [id number] 1 60 Encounter Details Date Type Department Care Team (Late st Contact Info) Description 11/05/2024 12:00 PM CDT Home Care Visit [address] [address] [address] [place] [address] Hannah Roque, OT OT OASIS DISCHARGE Social [...] or pharmacy Never 11/05/[address] [facility] Utilities Answer Date Recorded In the past 12 months has th e [employer], gas, oil, or water company threatened to [...] How often do you attend chur or quaker services? 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 Instruc t patient to call [facility] with oxygen issues or malfunctions. Problem:Oxygen Safety [...] information documented in this encounter Care Teams Study Coordinator Relationship Specialty Start Date End Date Gilberto Martinez MD [address] [facility] [address] [place] [address] PCP - General 07/11/16 Zane Richey III, MD [address] [facility] [address] [place] [address] Consulting Physician Cardiology 05/18/21 Raudel Childers MD [address] [facility] [id number] [place] [address] Consulting Physician Colon and Rectal Surgery 12/26/21 Chris Hart MD [address] [facility] [address] [place] [address] Fish And Wildlife Scientific Aid Cardiology 03/17/24 Charlee Mcmillan RMA Surgical Prehabilitation and Readiness (SPAR) Coordinator 06/11/24 Agustina Li MD PhD [address] [place] [address] Medical Oncologist/Gastroenterology Professor Medical Oncology 09/09/24 documented as of this encounter
== END 2024-11-05 23:55 | disposition left against medical advice (07) ==
PROVIDERS: Emergency Provider Student in an Organized Health Care Education/Training Program
DX: R50.9 Fever, unspecified (principal)
CPT/HCPCS: 71046; 99199